=== PATIENT | female | born 1960 ===

== ENCOUNTER 2016-11-19 08:04 | Inpatient (IN) | payer MEDICARE, OTHER ==
[2016-11-19 08:09] VITALS: BMI 27.4
--- NOTE | 2016-11-19 08:51 | ED PDOC ---
Arrival/HPI - General Chief Complaint: Allergic Reaction Time Seen by Provider: 11/19/16 08:29 Historian: Patient - Critical Care Critical Care Minutes: 30 minutes - History of Present Illness Narrative History of Present Illness (Text): 11/19/16 08:40 Pt is a 56 year old female, whose past medical history includes pulmonary hypertension, renal insufficiency, ESRD on hemodialysis, chronic anemia, peptic ulcer disease, and gastritis, who presents to the emergency room complaining of swelling to the face, difficulty breathing, body aches for 2 days. Patient confirms that she goes to dialysis three days a week but has missed her last two sessions, her last dialysis session was five days ago. Patient denies any chest pain or any complaint at this time. Pt states she does swell up if she misses her dialysis. (+) bodyaches PMD: Dr. Coffman Time/Duration: < week (2 days) Symptom Onset: Gradual Symptom Course: Worsening Activities at Onset: Rest Past Medical History - Provider Review Nursing Documentation Reviewed: Yes - Infectious Disease Hx of Infectious Diseases: None - Tetanus Immunization Tetanus Immunization: Unknown - Cardiac Hx Cardiac Disorders: (mi, cardiomyopathy,cad,dvt) Hx Angina: Yes Hx Cardiac Arrhythmia: Yes (afib) Hx Congestive Heart Failure: Yes Hx Hypertension: Yes Hx Peripheral Edema: Yes (swelling to hands) Hx Peripheral Vascular Disease: Yes (and pad) Other/Comment: r carotid endarterectomy at [facility] 2 months ago, pericardial window,numbness and pain to ble when ambulating - Pulmonary Hx Respiratory Disorders: Yes Hx Asthma: Yes Hx Chronic Obstructive Pulmonary Disease (COPD): Yes Hx Emphysema: Yes Hx Pneumonia: Yes Hx Sleep Apnea: Yes - Neurological Hx Neurological Disorder: Yes Hx Dizziness: Yes Hx Migraine: Yes - HEENT Hx HEENT Disorder: Yes (tinnitus, hearing loss right ear) - Renal Hx Dialysis: Yes Date of Last Dialysis Treatment: 11/15/16 - Endocrine/Metabolic Hx Endocrine Disorders: Yes Hx Diabetes Mellitus Type 2: Yes Hx Hypothyroidism: Yes - Hematological/Oncological Hx Blood Disorders: Yes Hx Anemia: Yes (blood transfusion) - Integumentary Hx Dermatological Disorder: No - Musculoskeletal/Rheumatological Hx Musculoskeletal Disorders: Yes Hx Falls: Yes (past) - Gastrointestinal Hx Gastrointestinal Disorders: Yes (diverticulosis, hiatal hernia) Hx Diverticulitis: Yes Hx Gastroesophageal Reflux: Yes - Genitourinary/Gynecological Hx Genitourinary Disorders: Yes - Psychiatric Hx Psychophysiologic Disorder: Yes Hx Anxiety: Yes Hx Substance Use: No - Past Surgical History Past Surgical History: Unable to Obtain - Surgical History Hx Appendectomy: Yes Hx Cardiac Catheterization: Yes (08/26/12) Hx Coronary Stent: Yes Other/Comment: r arm avfistula no in use due to clot, pt has rcw hd catheter in use for hd, tonsillectomy, rcw udall in and out, thoracenthesis x2, c section - Anesthesia Hx Anesthesia Reactions: No Hx Malignant Hyperthermia: No - Suicidal Assessment Feels Threatened In Home Enviroment: No Family/Social History - Physician Review Nursing Documentation Reviewed: Yes Family/Social History: Diabetes, Neoplasm/Cancer Smoking Status: Former Smoker Hx Alcohol Use: No Hx Substance Use: No Hx Substance Use Treatment: No Allergies/Home Meds Allergies/Adverse Reactions: Allergies ciprofloxacin Allergy (Verified 11/19/16 08:09) RASH hydralazine Allergy (Verified 11/19/16 08:09) RASH vancomycin Allergy (Verified 11/19/16 08:09) SHORTNESS OF BREATH ct dye Allergy (Uncoded 11/19/16 08:09) RASH Home Medications: Home Meds Medication Instructions Recorded Confirmed Cinacalcet [Sensipar] 30 mg PO DAILY 03/05/15 11/19/16 Dexlansoprazole [Dexilant] 60 mg PO DAILY 03/10/16 11/19/16 Sildenafil [Revatio] 20 mg PO DAILY 03/10/16 11/19/16 Metoprolol Tartrate [Lopressor] 100 mg PO BID 04/29/16 11/19/16 Sevelamer [Renagel] 1,600 mg PO QID 04/29/16 11/19/16 cloNIDine [Catapres] 0.2 mg PO TID 06/04/16 11/19/16 Cefuroxime Axetil [Ceftin] 250 mg PO BID 10/03/16 11/19/16 Review of Systems - Physician Review All systems were reviewed & negative as marked: Yes - Review of Systems Constitutional: Other (generalized pain throughout body; swollen face). absent : Fevers, Night Sweats Eyes: absent: Vision Changes ENT: absent: Hearing Changes Respiratory: SOB (difficulty breathing) Cardiovascular: absent: Chest Pain Gastrointestinal: absent: Abdominal Pain Genitourinary Female: absent: Urine Output Changes Musculoskeletal: absent: Back Pain Skin: absent: Pruritis Neurological: absent: Dizziness Endocrine: absent: Polyuria Hemo/Lymphatic: absent: Easy Bleeding Psychiatric: absent: Depression Physical Exam Vital Signs Reviewed: Yes Vital Signs Temp Pulse Resp BP Pulse Ox 11/19/16 15:10 108 H 15 184/92 H 96 11/19/16 09:45 160/80 H 11/19/16 09:25 230/120 H 11/19/16 08:15 97.5 F L 113 H 24 284/142 H 97 Temperature: Hypothermic Blood Pressure: Hypertensive Pulse: Tachycardic Appearance: Positive for: Other (NAD; swollen face) Mental Status: Positive for: Alert and Oriented X 3 Finger Stick Blood Glucose: 136 - Systems Exam Head: Present: Swelling (Facial Edema) Pupils: Present: PERRL Extroacular Muscles: Present: EOMI Conjunctiva: Present: Normal Ears: Present: Normal Mouth: Present: Moist Mucous Membranes Pharnyx: Present: Normal Nose (External): Present: Atraumatic Neck: Present: Normal Range of Motion Respiratory/Chest: Present: Decreased Breath Sounds (at the bases bilaterally ) Cardiovascular: Present: Regular Rate and Rhythm, Normal S1, S2. No: Murmurs Abdomen: Present: Normal Bowel Sounds. No: Tenderness, Distention, Peritoneal Signs Back: Present: Normal Inspection Upper Extremity: Present: Normal Inspection. No: Cyanosis, Edema Lower Extremity: Present: Edema (Pitting edema in LE) Neurological: Present: Speech Normal, Motor Func Grossly Intact, Normal Sensory Function, Other (Non-Focal) Skin: Present: Warm, Dry, Normal Color. No: Rashes Psychiatric: Present: Alert, Oriented x 3, Normal Insight, Normal Concentration Medical Decision Making ED Course and Treatment: 11/19/16 08:40 Impression: ESRD with no dialysis for almost 1 week--with resultant edema Differential Diagnosis included but are not limited to: CHF/body edema ( including face) secondary to missed dialysis Plan: -- EKG -- Chest X-ray -- Urinalysis -- Labs -- Reassess and disposition Prior Visits: Notes and results from previous visits were reviewed. Patient last seen in the ED on 11/15/16 for body aches. Patient was discharged home. Progress Notes: 11/19/16 08:[address] Hutchins, who is aware and said to send patient Dialysis. 11/19/16 09:[address] Coffman, who advises she will evaluate pt while pt is in dialysis 11/19/16 14:08 Chest X-ray: Creator : Akhil Lennon MD FINDINGS: LUNGS:No active pulmonary disease. PLEURA:No significant pleural effusion identified, no pneumothorax apparent. CARDIOVASCULAR:Mild cardiomegaly. Mild vascular congestion unchanged OSSEOUS STRUCTURES:No significant abnormalities. VISUALIZED UPPER ABDOMEN:Normal. OTHER FINDINGS:Right-sided dialysis catheter IMPRESSION: Mild vascular congestion unchanged - Lab Interpretations Lab Results: 11/19/16 08:50 11/19/16 08:50 Lab Results 11/19/16 08:50: WBC 11.0 D, RBC 3.70, Hgb 10.9 L, Hct 34.6 L, MCV 93.5, MCH 29.5, MCHC 31.5, RDW 16.6 H, Plt Count 238, MPV 10.3, Gran % 88.2 H, Lymph % ( Auto) 7.0 L, Coles % (Auto) 4.4, Eos % (Auto) 0.2 L, Baso % (Auto) 0.2, Gran # 9.67 H, Lymph # 0.8 L, Coles # 0.5, Eos # 0.0, Baso # 0.02, PT 11.4, INR 1.06, APTT 24.5, Sodium 140, Potassium 6.5 H* D, Chloride 103, Carbon Dioxide 18 L, Anion Gap 26 H, BUN 159 H*, Creatinine 10.9 H*, Est GFR ( Amer) 4, Est GFR (Non-Af Amer) 4, Random Glucose 120 H, Calcium 10.1, Magnesium 2.6 H, Total Bilirubin 0.8, AST 51 H, ALT 63 H, Alkaline Phosphatase 178 H, Lactate Dehydrogenase 884 H, Total Creatine Kinase 613 H, CK-MB (CK-2) 11.0 H, CK-MB (CK -2) % 1.8 L, Troponin I 0.14 H* D, NT-Pro-B Natriuret Pep 260901 H, Total Protein 7.6, Albumin 4.7, Globulin 2.9, Albumin/Globulin Ratio 1.6 I have reviewed the lab results: Yes - RAD Interpretation Radiology Orders: 11/19/16 08:32 CHEST PORTABLE [RAD] Stat - Medication Orders Current Medication Orders: Albuterol/Ipratropium (Duoneb 3 Mg/0.5 Mg (3 Ml) Ud) 3 ml IH [id number] [facility] Last Admin: 11/20/16 14:07 Dose: 3 ML Alprazolam (Xanax) 0.25 mg PO BID [facility] PRN Reason: Protocol Stop: 11/26/16 18:01 Last Admin: 11/20/16 09:33 Dose: Not Given Non-Admin Reason: Patient in Dialysis Amlodipine Besylate (Norvasc) 10 mg PO DAILY [facility] Last Admin: 11/20/16 09:33 Dose: Not Given Non-Admin Reason: Patient in Dialysis Cinacalcet (Sensipar) 30 mg PO DAILY [facility] Last Admin: 11/20/16 10:48 Dose: Not Given Non-Admin Reason: Patient in Dialysis Clonidine HCl (Catapres) 0.2 mg PO TID [facility] Last Admin: 11/20/16 14:11 Dose: 0.2 MG MAR Pulse and Blood Pressure Document 11/20/16 14:11 [facility] (Rec: 11/20/16 14:14 [facility] [id number]) Pulse Pulse Rate (60-90) 72 Blood Pressure Blood Pressure (100/60-150/90) 163/69 Clopidogrel Bisulfate (Plavix) 75 mg PO DAILY [facility] Last Admin: 11/20/16 09:33 Dose: Not Given Non-Admin Reason: Patient in Dialysis Famotidine (Pepcid) 10 mg PO BID PRN PRN Reason: Pain, Mild (1-3) Last Admin: 11/19/16 21:50 Dose: 10 MG Levothyroxine Sodium (Synthroid) 75 mcg PO DAILY [facility] Last Admin: 11/20/16 09:33 Dose: Not Given Non-Admin Reason: Patient in Dialysis Metoprolol Tartrate (Lopressor) 100 mg PO BRKDIN [facility] Last Admin: 11/20/16 08:10 Dose: 100 MG MAR Pulse and Blood Pressure Document 11/20/16 08:10 [facility] (Rec: 11/20/16 08:12 [facility] [id number]) Pulse Pulse Rate (60-90) 94 Blood Pressure Blood Pressure (100/60-150/90) 199/86 Oxycodone/Acetaminophen (Percocet 5/325 Mg Tab) 1 tab PO Q4H PRN PRN Reason: Pain, moderate (4-7) Stop: 11/23/16 12:42 Pantoprazole Sodium (Protonix Inj) 40 mg IVP DAILY [facility] Last Admin: 11/20/16 09:33 Dose: Not Given Non-Admin Reason: Patient in Dialysis Sevelamer HCl (Renagel) 1,600 mg PO QID [facility] Last Admin: 11/20/16 16:40 Dose: Not Given Non-Admin Reason: Patient Asleep Sildenafil Citrate (Revatio) 20 mg PO DAILY [facility] Last Admin: 11/20/16 09:33 Dose: Not Given Non-Admin Reason: Patient in Dialysis Discontinued Medications Albuterol Sulfate (Albuterol 0.083% Inhal Michelle (2.5 Mg/3 Ml) Ud) 2.5 mg IH STAT STA Stop: 11/19/16 10:28 Last Admin: 11/19/16 10:49 Dose: 2.5 MG Alprazolam (Xanax) 0.25 mg PO STAT STA PRN Reason: Protocol Stop: 11/20/16 04:19 Last Admin: 11/20/16 04:34 Dose: 0.25 MG Behavioural Document 11/20/16 04:34 [facility] (Rec: 11/20/16 04:34 [facility] [id number]) Maintenance Maintenance Dose No Nonmedicinal Nonmedicinal Interventions Redirect Therapeutic Communication Behavior Behavior for Medication: Anxiety Insomnia Amlodipine Besylate (Norvasc) 10 mg PO STAT STA Stop: 11/19/16 09:13 Last Admin: 11/19/16 09:25 Dose: 10 MG MAR Pulse and Blood Pressure Document 11/19/16 09:25 [facility] (Rec: 11/19/16 09:28 JOFiona [id number]) Blood Pressure Blood Pressure (100/60-150/90) 230/120 Home Med (*Refrigerator Open) Confirm Administered Dose 1 unit XX .STK-MED ONE Stop: 11/20/16 06:03 Home Med (*Refrigerator Open) Confirm Administered Dose 1 unit XX .STK-MED ONE Stop: 11/20/16 06:28 Influenza Virus Vaccine (Fluvirin) 45 mcg IM .ONCE ONE Stop: 11/19/16 17:09 Nitroglycerin (Nitro-Bid 2% Oint) 1 ea TOP STAT STA Stop: 11/19/16 09:13 Last Admin: 11/19/16 09:28 Dose: 1 EA Pneumococcal Polyvalent Vaccine (Pneumovax 23 Vaccine) 0.5 ml IM .ONCE ONE Stop: 11/19/16 17:09 Sevelamer HCl (Renagel) 8,001,600 mg PO QID ZANA - Scribe Statement The provider has reviewed the documentation as recorded by the Aaronibthais Boone Provider Scribe Attestation: All medical record entries made by the Scribe were at my direction and personally dictated by me. I have reviewed the chart and agree that the record accurately reflects my personal performance of the history, physical exam, medical decision making, and the department course for this patient. I have also personally directed, reviewed, and agree with the discharge instructions and disposition. Disposition/Present on Arrival - Present on Arrival Any Indicators Present on Arrival: No History of DVT/PE: No History of Uncontrolled Diabetes: No Urinary Catheter: No History of Decub. Ulcer: No History Surgical Site Infection Following: None - Disposition Have Diagnosis and Disposition been Completed?: Yes Diagnosis: CHF (congestive heart failure), ESRD (end stage renal disease), Edema of face Disposition: HOSPITALIZED Disposition Time: 08:55 Patient Plan: Admission Patient Problems: Current Active Problems Problem Status Diagnosed Hypertensive left ventricular hypertrophy Active AV shunt thrombosis Acute Abdominal pain Acute CHF (congestive heart failure) Acute Chest pain Acute Chronic renal impairment Acute Dyspnea or other respiratory complaints Acute ESRD (end stage renal disease) Acute Headache Acute Leukocytosis Acute Pneumonia Acute Pulmonary edema Acute Tobacco user Acute Uncontrolled hypertension Acute Vomiting Acute Condition: SERIOUS
[2016-11-19 08:57] LABS: ADD MANUAL DIFF? NO
[2016-11-19 09:00] LABS: BASO # 0.02 K/mm3 (0.0-2.0); BASO % 0.2 % (0.0-3.0); EOS % 0.2 % (1.5-5.0); GRAN # 9.67 (1.4-6.5); GRAN % 88.2 % (50.0-68.0); HEMATOCRIT 34.6 % (36.0-48.0); LYMPH # 0.8 (1.2-3.4); MEAN CELL VOLUME 93.5 fL (80.0-105.0); MEAN CORPUSCULAR HEMOGLOBIN 29.5 pg (25.0-35.0); MEAN CORPUSCULAR HGB CONC 31.5 g/dl (31.0-37.0); MEAN PLATELET VOLUME 10.3 fl (7.0-11.0); MONO # 0.5 (0.1-0.6); MONO % 4.4 % (1.0-6.0); PLATELET COUNT 238 10^3/uL (120.0-450.0); RED CELL DISTRIBUTION WIDTH 16.6 % (11.5-14.5)
[2016-11-19 09:11] LABS: ALB/GLOB RATIO 1.6 (1.1-1.8); BILIRUBIN,TOTAL 0.8 mg/dL (0.2-1.3); CALCIUM 10.1 mg/dL (8.4-10.5); INR 1.06 (0.93-1.08); MAGNESIUM 2.6 mg/dL (1.7-2.2); PARTIAL THROMBOPLASTIN TIME 24.5 Seconds (23.7-30.8); TOTAL PROTEIN 7.6 g/dL (5.8-8.3)
[2016-11-19] MEDS ORDERED: Nitroglycerin 2% Ointment Foilpak UD TOP STA (09:12)
[2016-11-19 09:42] LABS: TROPONIN I 0.14 ng/mL
[2016-11-19 09:43] LABS: POTASSIUM 6.5 mmol/L (3.6-5.0)
--- NOTE | 2016-11-19 09:49 | RAD ---
HISTORY: SOB COMPARISON: 11/11/2016 FINDINGS: LUNGS: No active pulmonary disease. PLEURA: No significant pleural effusion identified, no pneumothorax apparent. CARDIOVASCULAR: Mild cardiomegaly. Mild vascular congestion unchanged OSSEOUS STRUCTURES: No significant abnormalities. VISUALIZED UPPER ABDOMEN: Normal. OTHER FINDINGS: Right-sided dialysis catheter IMPRESSION: Mild vascular congestion unchanged
[2016-11-19] MEDS ORDERED: Albuterol 0.083% Inhal Sol (2.5 mg/3 mL) UD IH STA (10:27)
--- NOTE | 2016-11-19 12:17 | CON ---
DATE: 11/19/2016 REASON FOR CONSULTATION: Hyperkalemia, uremia. HISTORY OF PRESENTING ILLNESS: A 56-year-old lady brought to the Emergency Room by ambulance because of shortness of breath, swelling of the face, difficulty breathing. The patient did not come for he r dialysis treatments on Thursday and Thursday. The patient is very noncompliant. She often misses h er treatments. This is very irresponsive on the part of the patient. Almost an abuse of the system. She was found to have a potassium of 6.5 and a BUN of 159 in the Emergency Room. Her creatinine is 10.9. She is also found to be acidotic with a CO2 of 18 and an anion gap of 19. She is complaining of shortness of breath. She denies any chest tightness. She is complaining of puffiness of her fac e. PAST MEDICAL AND SURGICAL HISTORY: Severe hypertension, ESRD, COPD, sleep apnea, pulmonary hypertens ion, multiple access failures, multiple vein occlusions, SVC syndrome. FAMILY HISTORY: Noncontributory. SOCIAL HISTORY: Ex-smoker, no alcohol use, no IV drug abuse. ALLERGIES: LIST REVIEWED: MEDICATIONS AT HOME: Catapres 0.2 t.i.d., Revatio, Renvela, Lopressor 100 b.i.d., Synthroid 75, Pepc id 10, Henrry 60, Plavix 75, Sensipar 30, amlodipine 10, Xanax. REVIEW OF SYSTEMS: All systems are reviewed, pertinent positives as mentioned in the history of pres enting illness, rest unremarkable. PHYSICAL EXAMINATION: GENERAL: Middle-aged lady lying in bed in moderate distress. HEENT: She has severe swelling of her face, periorbital edema. VITAL SIGNS: Blood pressure 160/80, earlier it was 230/120, heart rate 113, respiratory rate 24, tem perature 97.5. NECK: Supple, no JVD. LUNGS: Bilateral rhonchi, bilateral basal rales. CARDIAC: S1, S2, regular rate and rhythm, no murmur, no rub. ABDOMEN: Obese, distended, soft, nontender, bowel sounds present. EXTREMITIES: 1+ pitting edema of the lower extremities. INTAKE AND OUTPUT: Not charted. LABORATORY DATA: WBC 11, hemoglobin 10.9, hematocrit 34.6, platelets 238. Sodium 140, potassium 6.5 , chloride 103, CO2 18, BUN 159, creatinine 10.9, glucose 120, calcium 10.0, magnesium 2.6, AST 51, A LT 63. LDH 884. Troponin 0.14. BNP 210,000. Chest x-ray: Mild vascular congestion. ASSESSMENT: 1. Severe hyperkalemia. 2. Uremia. 3. Volume overload. 4. Noncompliance with treatments. 5. Missed dialysis on Thursday and Thursday. 6. Anemia of chronic disease. PLAN: 1. Urgent dialysis, will be dialyzed for 3-1/2 hours, will try to ultrafiltrate about 3.5 to 4 kg. She will be dialyzed with a potassium 1 bath. 2. Strongly recommended patient and family for noncompliance. Thank you for the courtesy of this consultation. Tamanna Smith MD cc: [phone] TT: 11/19/2016 12:17:09 Confirmation # [id number] Dictation # [id number] tn
--- NOTE | 2016-11-19 16:49 | CARD ---
APPROVED REPORT EKG Measurement Heart [id number] <Conclusion> Sinus tachycardia PRWP Possible Left atrial enlargement Left ventricular hypertrophy with repolarization abnormality STTW changes c/w ischemia and/or strain pattern
[2016-11-19] MEDS ORDERED: Influenza Vaccine 45 MCG/0.5 ml IM ONE (17:08)
[2016-11-19] MEDS ORDERED: Pneumococcal 23-Valent Vaccine IM ONE (17:08)
[2016-11-19] MEDS: Levothyroxine 75 MCG TAB PO SCH (17:51)
[2016-11-19] MEDS: Sildenafil 20 MG TAB PO SCH (17:52)
[2016-11-19] MEDS ORDERED: Non Formulary Medication (Metoprolol Tartrate [Lopressor] 100 MG) PO SCH (18:00)
[2016-11-19] MEDS: Albuterol-Ipratrop 3 mg / 0.5 (3 ml) UD IH SCH (20:05)
[2016-11-20] MEDS: Albuterol-Ipratrop 3 mg / 0.5 (3 ml) UD IH SCH ×4 (02:20→19:22)
[2016-11-20 08:10] LABS: ALB/GLOB RATIO 1.7 (1.1-1.8); BILIRUBIN,TOTAL 0.6 mg/dL (0.2-1.3); CALCIUM 9.2 mg/dL (8.4-10.5); POTASSIUM 4.9 mmol/L (3.6-5.0); TOTAL PROTEIN 6.3 g/dL (5.8-8.3)
--- NOTE | 2016-11-20 08:14 | HP ---
The patient is a 56-year-old, known to me from multiple previous admissions. The patient missed 2 di alyses; last on . She did not come Thursday or Thursday. I spoke to patient's son who was by the bedside. Ambulance did come and knock her door to take her to dialysis but she refused to go. When I inquired the patient, she stated, "I just got lazy; did not want to get out in snow." However , she came in because of chest discomfort, feeling bloated, facial swelling, shortness of breath. De nies any fever or chills. No cough or congestion. I saw the patient in dialysis, and she gained 9 pounds since last dialysis, and that will be removed on today's dialysis. Does complain of chest pressure. PAST MEDICAL HISTORY: Significant for: 1. End-stage renal disease, on hemodialysis. 2. Status post right carotid angioplasty. 3. Right renal artery stenosis. 4. Hypertension. 5. Peptic ulcer disease. 6. COPD. 7. Pulmonary hypertension. 8. Active smoker up until 6 months ago. ALLERGIES: SHE IS ALLERGIC TO CIPRO, HYDRALAZINE, VANCOMYCIN, AND IV CONTRAST DYES. MEDICATIONS AT HOME: She is on Norvasc 10 mg daily, metoprolol 100 mg daily. She takes Xanax 0.25 b .i.d. She takes Sensipar at bedtime. She is on Plavix 75 daily. She is on famotidine 20 mg twice a day, Synthroid 75 mcg daily. She is on Revatio 20 mg daily. She is on clonidine 0.2 three times a day. SOCIAL HISTORY: She is single, lives with her son. Was active smoker and smoked almost a pack a day for 25-30 years. REVIEW OF SYSTEMS: Significant for bloating, shortness of breath, chest pressure, and facial swellin g, and swelling around the eyelids. On examination she is seen in dialysis unit. She has a swollen face, slit-like eyes. She has a few soft crackles at bases. HEAD AND NECK EXAMINATION: She had nonicteric sclerae, pink conjunctivae with facial and neck swelli ng. ABDOMEN: Soft, nontender, no rebound, no guarding. NEUROLOGICALLY: The patient is awake and alert, and able to communicate. LABORATORY EXAMINATION: WBC 11, hemoglobin 10.9, hematocrit 34.6, platelet of 238. PT 11.4, INR 1.0 6. Chemistry: Sodium 140, potassium 6.5, chloride 103, CO2 is 18, BUN 159, creatinine 10.9. Blood sugar 120. Her LDH is 884, alk phos is 178, troponin is 0.14. CPK is , CPK is , MB is 1.8 , troponin 0.14. Her BNP is 210,000. Her x-ray shows vascular congestion. ASSESSMENT: 1. Fluid overload because of noncompliance of dialysis. She missed her 2 dialyses. 2. Uncontrolled hypertension. 3. End-stage renal disease, on hemodialysis. 4. Chronic anemia. 5. Peptic ulcer disease. PLAN: The patient will receive 1 dialysis. She will have at least 4-5 L of the fluid. She might ge t a few hours of dialysis tomorrow. Will start her on nebulizer treatment. Her usual medication hardeep l be ordered. Will follow up her troponin. If borderline high, probably secondary to renal insuffic iency. Will reevaluate this patient in a.m. Brittany Coffman MD cc: [phone] TT: 11/19/2016 18:08:07 jn
[2016-11-20 09:30] LABS: ADD MANUAL DIFF? NO
[2016-11-20 09:33] LABS: BASO # 0.02 K/mm3 (0.0-2.0); BASO % 0.3 % (0.0-3.0); EOS # 0.2 (0.0-0.7); EOS % 2.3 % (1.5-5.0); GRAN # 5.24 (1.4-6.5); HEMATOCRIT 31.2 % (36.0-48.0); LYMPH # 0.9 (1.2-3.4); LYMPH % 12.8 % (22.0-35.0); MEAN CELL VOLUME 92.9 fL (80.0-105.0); MEAN CORPUSCULAR HEMOGLOBIN 29.5 pg (25.0-35.0); MEAN CORPUSCULAR HGB CONC 31.7 g/dl (31.0-37.0); MEAN PLATELET VOLUME 10.8 fl (7.0-11.0); MONO # 0.4 (0.1-0.6); MONO % 5.6 % (1.0-6.0); PLATELET COUNT 207 10^3/uL (120.0-450.0); RED CELL DISTRIBUTION WIDTH 16.4 % (11.5-14.5); WHITE BLOOD COUNT 6.6 10^3/ul (4.5-11.0)
[2016-11-20] MEDS: Sildenafil 20 MG TAB PO SCH (09:33)
[2016-11-20] MEDS: Levothyroxine 75 MCG TAB PO SCH (09:33)
[2016-11-20 09:38] LABS: MAGNESIUM 2.4 mg/dL (1.7-2.2); PHOSPHOROUS 8.1 mg/dL (2.5-4.5)
[2016-11-20] MEDS ORDERED: Oxycodone/Acetaminophen 5/325 mg Tab PO PRN (12:41)
--- NOTE | 2016-11-20 13:08 | PN ---
DATE: 11/20/2016 SUBJECTIVE: The patient is a 56-year-old, seen and examined. She still has facial swelling and she has right periorbital swelling in her eye. Eye opening is like a slit. She complained of generalize d weakness. No history of nausea or vomiting. PHYSICAL EXAMINATION: VITAL SIGNS: She is afebrile, pulse 83, respirations 20, blood pressure 174/81. LUNGS: Bilateral fair airflow, no rhonchi or crackle. Soft crackle at bases posteriorly. HEART: S1, S2 audible. ABDOMEN: Soft and nontender, no rebound, no guarding. NEUROLOGIC: The patient is awake and alert, communicative. LABORATORY: WBC 6.6, hemoglobin 9.9, hematocrit 31.2, platelet of 207. Chemistry: Sodium 137, pota ssium 4.9, chloride 98, CO2 26, BUN 91, creatinine 7.6, blood sugar of 91, phosphorus is 8.1, magnesi um 2.4. Troponin 0.17. ASSESSMENT AND PLAN: 1. Pulmonary edema secondary to noncompliance and missing 2 hemodialysis. 2. End-stage renal disease, on hemodialysis. 3. Positive troponin, probably secondary to end-stage renal disease. Does not have chest pain now. 4. Facial swelling. 5. Peptic ulcer disease. 6. History of chronic obstructive pulmonary disease. 7. Status post right carotid angioplasty by Dr. Reyes in [facility]. 8. Pulmonary hypertension. 9. Hypothyroidism. PLAN: The patient received second dialysis today. I will speak to Dr. Smith, if she needs further f luid to be taken out. Recommend physical therapy, out of bed to chair and will reevaluate the patien t in a.m. to make a disposition plan. Brittany Coffman MD cc: [phone] TT: 11/20/2016 13:07:33 Confirmation # [id number] Dictation # [id number] stephanie
[2016-11-21] MEDS: Albuterol-Ipratrop 3 mg / 0.5 (3 ml) UD IH SCH ×3 (01:09→13:12)
[2016-11-21 05:39] VITALS: O2SAT 99
--- NOTE | 2016-11-21 08:06 | PN ---
DATE: 11/20/2016 SUBJECTIVE: The patient is on medical floor. She is awake, she is alert. Face is very swollen. Sh e complains of some shortness of breath. Yesterday she was only dialyzed for 2 hours. She only ultr afiltrated 2 kg. The patient insisted a night off early. PHYSICAL EXAMINATION: EXAMINATION: Blood pressure 161/80, heart rate 74, respiratory rate 20, temperature 98.6. LABORATORY DATA: WBC 6.6, hemoglobin 9.9, hematocrit 31, platelets 207. Sodium 137, potassium 4.9, chloride 98, CO2 of 26, BUN 91, creatinine 7.6, glucose 91, calcium 9.2, phosphorus 8.1, magnesium 2. 4. AST 48, ALT 60, albumin 4.0. MEDICATION LIST: Reviewed. ASSESSMENT AND PLAN: 1. Severe hyperkalemia, resolved. 2. Hyperkalemia. 3. Noncompliance with dialysis treatment. 4. Hypertension. 5. Noncompliance with diet and binders. PLAN: 1. Case discussed at length with Dr. Coffman. The patient is noncompliant. She terminated treatment yesterday. She was only ultrafiltrated for 2 hours, removing 2 kg. 2. Dialysis again today. 3. Ultrafiltrate about 2.5 to 3 kg. 4. The patient is strongly advised to comply with her dialysis treatment. Tamanna Smith MD cc: [phone] TT: 11/20/2016 22:38:04 Confirmation # [id number] Dictation # [id number] stephanie
[2016-11-21] MEDS: Sildenafil 20 MG TAB PO SCH (09:51)
[2016-11-21] MEDS: Levothyroxine 75 MCG TAB PO SCH (09:54)
[2016-11-21 13:15] VITALS: BP 119/59; PULSE 81; RESP 19; TEMP 97.3
--- NOTE | 2016-11-21 13:29 | PN ---
DATE: 11/21/2016 SUBJECTIVE: The patient is seen lying in bed. She is alert. She is awake. She reports feeling muc h better. She complains of feeling weak. She is unable to walk. PHYSICAL EXAMINATION: GENERAL: Middle aged lady, lying in bed. VITAL SIGNS: Blood pressure 140/70, heart rate 86, respiratory rate 20, temperature 98.5. HEENT: Normocephalic, atraumatic. NECK: Supple, no JVD. LUNGS: Bilateral equal air entry, no rales. CARDIAC: S1, S2, regular rate and rhythm, no murmur, no rub. ABDOMEN: Obese, distended, soft, nontender, bowel sounds present. EXTREMITIES: 1+ pitting edema of the lower extremities. INTAKE AND OUTPUT: Not charted. LABORATORY DATA: WBC 6.6, hemoglobin 9.9, hematocrit 31, platelets 207. Sodium 137, potassium 4.9, chloride 98, CO2 26, BUN 91, creatinine 7.6, glucose 91, calcium 9.2, phosphorus 8.1, magnesium 2.4, AST 48, ALT 60, albumin 4.0. CURRENT MEDICATIONS: Clonidine 0.2 t.i.d., Lopressor 100 daily, amlodipine 10, Pepcid, Tylenol, Plav ix 75, Protonix, Renvela 16 q.i.d., Revatio 20 daily, cinacalcet 30, Synthroid, Xanax. ASSESSMENT: 1. Resolved hyperkalemia. 2. Resolved hypervolemia. 3. Hypertension, well controlled. 4. Anemia of chronic disease. 5. End-stage renal disease. PLAN: 1. Continue current antihypertensives. 2. The patient is counseled regarding importance of compliance with treatment. 3. Next dialysis tomorrow. 4. No objection to discharge. Tamanna Smith MD cc: [phone] TT: 11/21/2016 13:28:19 Confirmation # [id number] Dictation # [id number]
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
== END 2016-11-21 18:33 | disposition home or self-care (01) | DRG 291 ==
LOC: ED 08:04 → ERH 08:56 → 2RNO 16:27 → OBSVTOIN 11-20 16:41
PROVIDERS: ADMIT Internal Medicine; ATTEND Internal Medicine
PROC: 5A1D00Z (ICD-10-PCS; principal; 2016-11-20)
DX: I13.2 Hypertensive heart and chronic kidney disease with heart failure and with stage 5 chronic kidney disease, or end stage renal disease (principal); N18.6 End stage renal disease; E87.2 Acidosis; E11.22 Type 2 diabetes mellitus with diabetic chronic kidney disease; I27.2 Other secondary pulmonary hypertension; I87.1 Compression of vein; I50.9 Heart failure, unspecified; E87.5 Hyperkalemia; E78.5 Hyperlipidemia, unspecified; D63.8 Anemia in other chronic diseases classified elsewhere; E03.9 Hypothyroidism, unspecified; J44.9 Chronic obstructive pulmonary disease, unspecified; K27.9 Peptic ulcer, site unspecified, unspecified as acute or chronic, without hemorrhage or perforation; H91.91 Unspecified hearing loss, right ear; H93.19 Tinnitus, unspecified ear; G47.30 Sleep apnea, unspecified; Z99.2 Dependence on renal dialysis; Z91.15 Patient's noncompliance with renal dialysis; Z91.11 Patient's noncompliance with dietary regimen; Z87.891 Personal history of nicotine dependence

== ENCOUNTER 2016-12-03 08:42 | Observation (INO) | payer MEDICARE, OTHER ==
[2016-12-03 08:43] VITALS: BMI 27.4
[2016-12-03 09:53] LABS: ADD MANUAL DIFF? NO
--- NOTE | 2016-12-03 09:54 | ED PDOC ---
Arrival/HPI - General Chief Complaint: Chest Pain Time Seen by Provider: 12/03/16 08:53 Historian: Patient - History of Present Illness Narrative History of Present Illness (Text): 12/03/16 09:39 A 56 year old female, whose past medical history includes pulmonary hypertension , renal insufficiency, ESRD on hemodialysis, chronic anemia, peptic ulcer disease, and gastritis, who presents to the emergency room complaining of worsening chest pain since yesterday. Pain is localized to the central chest. Patient notes this morning while walking she began to feel dizzy and short of breath. Patient notes yesterday after dialysis she started to feel nausea and vomited. Patient says currently she still feels nauseous but denies any fever, chills or other complaints at this time. Patient states she quit smoking 5 year ago and she does not drink or use other drugs. PMD: Dr. Coffman Time/Duration: 24 hours Symptom Onset: Sudden Symptom Course: Worsening Quality: Other Activities at Onset: Light Context: Home Past Medical History - Provider Review Nursing Documentation Reviewed: Yes - Infectious Disease Hx of Infectious Diseases: None - Tetanus Immunization Tetanus Immunization: Unknown - Cardiac Hx Cardiac Disorders: Yes (mi, cardiomyopathy,cad,dvt) Hx Congestive Heart Failure: Yes Hx Hypertension: Yes - Pulmonary Hx Respiratory Disorders: Yes Hx Chronic Obstructive Pulmonary Disease (COPD): Yes - Neurological Hx Neurological Disorder: Yes Hx Dizziness: Yes Hx Migraine: Yes - HEENT Hx HEENT Disorder: Yes (tinnitus, hearing loss right ear) - Renal Hx Renal Disorder: Yes Hx Dialysis: Yes Date of Last Dialysis Treatment: 12/02/16 - Endocrine/Metabolic Hx Endocrine Disorders: Yes Hx Diabetes Mellitus Type 2: Yes Hx Hypothyroidism: Yes - Hematological/Oncological Hx Blood Disorders: Yes Hx Anemia: Yes (blood transfusion) - Integumentary Hx Dermatological Disorder: No - Musculoskeletal/Rheumatological Hx Musculoskeletal Disorders: Yes Hx Falls: Yes (past) - Gastrointestinal Hx Gastrointestinal Disorders: Yes (diverticulosis, hiatal hernia) Hx Diverticulitis: Yes Hx Gastroesophageal Reflux: Yes - Genitourinary/Gynecological Hx Genitourinary Disorders: Yes - Psychiatric Hx Psychophysiologic Disorder: Yes Hx Anxiety: Yes Hx Substance Use: No - Past Surgical History Past Surgical History: Unable to Obtain - Surgical History Hx Appendectomy: Yes Hx Cardiac Catheterization: Yes (08/26/12) Hx Coronary Stent: Yes Other/Comment: r arm avfistula no in use due to clot, pt has rcw hd catheter in use for hd, tonsillectomy, rcw udall in and out, thoracenthesis x2, c section - Anesthesia Hx Anesthesia Reactions: No Hx Malignant Hyperthermia: No - Suicidal Assessment Feels Threatened In Home Enviroment: No Family/Social History - Physician Review Nursing Documentation Reviewed: Yes Family/Social History: No Known Family HX Smoking Status: Former Smoker Hx Alcohol Use: No Hx Substance Use: No Hx Substance Use Treatment: No Allergies/Home Meds Allergies/Adverse Reactions: Allergies ciprofloxacin Allergy (Verified 12/03/16 09:00) RASH hydralazine Allergy (Verified 12/03/16 09:00) RASH vancomycin Allergy (Verified 12/03/16 09:00) SHORTNESS OF BREATH ct dye Allergy (Uncoded 12/03/16 09:00) RASH Home Medications: Home Meds Medication Instructions Recorded Confirmed Cinacalcet [Sensipar] 30 mg PO DAILY 03/05/15 12/03/16 Dexlansoprazole [Dexilant] 60 mg PO DAILY 03/10/16 12/03/16 Sildenafil [Revatio] 20 mg PO DAILY 03/10/16 12/03/16 Metoprolol Tartrate [Lopressor] 100 mg PO BID 04/29/16 12/03/16 Sevelamer [Renagel] 1,600 mg PO QID 04/29/16 12/03/16 cloNIDine [Catapres] 0.2 mg PO TID 06/04/16 12/03/16 Review of Systems - Physician Review All systems were reviewed & negative as marked: Yes - Review of Systems Constitutional: absent: Fevers Respiratory: SOB Cardiovascular: Chest Pain Gastrointestinal: Nausea, Vomiting Neurological: Dizziness Physical Exam Vital Signs Reviewed: Yes Vital Signs Temp Pulse Pulse Resp BP BP Pulse Ox 12/03/16 13:16 87 240/109 H 12/03/16 13:14 87 240/109 H 12/03/16 12:40 79 18 220/89 H 96 12/03/16 11:15 87 18 226/94 H 95 12/03/16 09:15 85 241/114 H 12/03/16 09:04 99 F 78 17 236/96 H 100 Temperature: Afebrile Blood Pressure: Hypertensive Pulse: Regular Respiratory Rate: Normal Appearance: Positive for: Well-Appearing, Non-Toxic, Comfortable Pain Distress: None Mental Status: Positive for: Alert and Oriented X 3 - Systems Exam Head: Present: Atraumatic, Normocephalic Pupils: Present: PERRL Extroacular Muscles: Present: EOMI Conjunctiva: Present: Normal Mouth: Present: Moist Mucous Membranes Neck: Present: Normal Range of Motion Respiratory/Chest: Present: Decreased Breath Sounds (decrease breath sound on the right). No: Respiratory Distress, Accessory Muscle Use Cardiovascular: Present: Regular Rate and Rhythm, Normal S1, S2. No: Murmurs Abdomen: Present: Normal Bowel Sounds. No: Tenderness, Distention, Peritoneal Signs Back: Present: Normal Inspection Upper Extremity: Present: Normal Inspection. No: Cyanosis, Edema Lower Extremity: Present: Normal Inspection. No: Edema Neurological: Present: GCS=15, CN II-XII Intact, Speech Normal Skin: Present: Warm, Dry, Normal Color. No: Rashes Psychiatric: Present: Alert, Oriented x 3, Normal Insight, Normal Concentration Medical Decision Making ED Course and Treatment: 12/03/16 09:39 Impression: A 56 year old female with chest pain. Differential Diagnosis include but are not limited to: ACS Plan: -- EKG -- Chest X-ray -- Labs -- Urinalysis -- Asprin -- Reassess and disposition Prior Visits: Notes and results from previous visits were reviewed. The patient last presented to the emergency department on 11/19/16 for evalaution of swelling to the face, shortness of breath and body aches. Progress Notes: EKG: Ordered, reviewed, and independently interpreted the EKG. Rate : 81 BPM Rhythm : NSR Interpretation : Bilateral atrial enlargement Comparison : No change from previous EKG for comparison. 12/03/16 10:10 Chest X-ray: Creator : Keyla Strong V. COMPARISON: 11/19/2016 FINDINGS: LUNGS: No active pulmonary disease. Currently no suspect pulmonary venous congestion present PLEURA: No significant pleural effusion identified, no pneumothorax apparent. CARDIOVASCULAR: Cardiomegaly as before OSSEOUS STRUCTURES: No significant abnormalities. VISUALIZED UPPER ABDOMEN: Normal. OTHER FINDINGS: Right-sided dialysis catheter tip in right atrium -unchanged right upper lung zone/right axillary vascular stent unchanged IMPRESSION: No active disease. Other findings as above 12/03/16 12:[address] Coffman, who is aware and agrees with the plan to place the patient in Telemetry for observation for chest pain. I have discussed the results and plan with the patient, who expresses understanding. Patient given the opportunity to ask question, all questions were answered and there is agreement with the plan to be admitted to the hospital. - Lab Interpretations Lab Results: 12/03/16 09:30 12/03/16 09:30 Lab Results 12/03/16 09:30: WBC 8.1 D, RBC 3.78, Hgb 11.4 L, Hct 36.7, MCV 97.1, MCH 30.2, MCHC 31.1, RDW 15.9 H, Plt Count 222, MPV 11.5 H, Gran % 81.4 H, Lymph % (Auto) 12.3 L, [place] % (Auto) 4.9, Eos % (Auto) 0.9 L, Baso % (Auto) 0.5, Gran # 6.59 H , Lymph # 1.0 L, [place] # 0.4, Eos # 0.1, Baso # 0.04, Sodium 137, Potassium 5.0, Chloride 99, Carbon Dioxide 25, Anion Gap 18, BUN 43 H, Creatinine 5.4 H, Est GFR ( Amer) 10, Est GFR (Non-Af Amer) 8, Random Glucose 129 H, Calcium 9.5, Magnesium 2.1, Total Bilirubin 0.6, AST 25, ALT 29, Alkaline Phosphatase 170 H, Lactate Dehydrogenase 558, Total Creatine Kinase 47, Troponin I 0.11 D, NT-Pro-B Natriuret Pep 58619 H, Total Protein 6.7, Albumin 4.1, Globulin 2.7, Albumin/Globulin Ratio 1.5 I have reviewed the lab results: Yes - RAD Interpretation Radiology Orders: 12/03/16 09:37 CHEST PORTABLE [RAD] Stat - Medication Orders Current Medication Orders: Albuterol/Ipratropium (Duoneb 3 Mg/0.5 Mg (3 Ml) Ud) 3 ml IH [id number] [facility] Alprazolam (Xanax) 0.25 mg PO BID [facility] Stop: 12/10/16 18:01 Amlodipine Besylate (Norvasc) 10 mg PO DAILY [facility] Last Admin: 12/03/16 13:16 Dose: 10 MG MAR Pulse and Blood Pressure Document 12/03/16 13:16 MMA (Rec: 12/03/16 13:16 [email or web address]) Pulse Pulse Rate (60-90) 87 Blood Pressure Blood Pressure (100/60-150/90) 240/109 Cinacalcet (Sensipar) 30 mg PO DAILY [facility] Clonidine HCl (Catapres) 0.2 mg PO TID [facility] Last Admin: 12/03/16 13:14 Dose: 0.2 MG MAR Pulse and Blood Pressure Document 12/03/16 13:14 [facility] (Rec: 12/03/16 13:16 [email or web address]) Pulse Pulse Rate (60-90) 87 Blood Pressure Blood Pressure (100/60-150/90) 240/109 Clopidogrel Bisulfate (Plavix) 75 mg PO DAILY [facility] Last Admin: 12/03/16 13:16 Dose: 75 MG Metoprolol Tartrate (Lopressor) 100 mg PO BID [facility] Ondansetron HCl (Zofran Inj) 4 mg IVP Q6H PRN PRN Reason: Nausea/Vomiting Pantoprazole Sodium (Protonix Inj) 40 mg IVP DAILY [facility] Last Admin: 12/03/16 13:16 Dose: 40 MG IVP Administration Document 12/03/16 13:16 [facility] (Rec: 12/03/16 13:17 [email or web address]) Charges for Administration # of IVP Administrations 1 Sevelamer HCl (Renagel) 1,600 mg PO QID [facility] Sildenafil Citrate (Revatio) 20 mg PO DAILY [facility] Discontinued Medications Alprazolam (Xanax) 0.25 mg PO BID [facility] PRN Reason: Protocol Aspirin (Aspirin) 325 mg PO STAT STA Stop: 12/03/16 09:38 Last Admin: 12/03/16 09:49 Dose: 325 MG Influenza Virus Vaccine (Fluvirin) 45 mcg IM .ONCE ONE Stop: 12/03/16 16:31 Non-Formulary Medication (Metoprolol Tartrate [Lopressor]) 100 mg PO BID [facility] Ondansetron HCl (Zofran Inj) 4 mg IV ONCE ONE Stop: 12/03/16 10:13 Last Admin: 12/03/16 10:43 Dose: 4 MG eMAR Start Stop Document 12/03/16 10:43 [facility] (Rec: 12/03/16 10:45 TITUS [id number]) Intravenous Solution Start Date 12/03/16 Start Time 10:43 End Date 12/03/16 End time 10:44 Total Infusion Time 1 Pneumococcal Polyvalent Vaccine (Pneumovax 23 Vaccine) 0.5 ml IM .ONCE ONE Stop: 12/03/16 16:31 - Scribe Statement The provider has reviewed the documentation as recorded by the Scribe Clary Fung Provider Scribe Attestation: All medical record entries made by the Scribe were at my direction and personally dictated by me. I have reviewed the chart and agree that the record accurately reflects my personal performance of the history, physical exam, medical decision making, and the department course for this patient. I have also personally directed, reviewed, and agree with the discharge instructions and disposition. Disposition/Present on Arrival - Present on Arrival Any Indicators Present on Arrival: No History of DVT/PE: No History of Uncontrolled Diabetes: No Urinary Catheter: No History of Decub. Ulcer: No History Surgical Site Infection Following: None - Disposition Have Diagnosis and Disposition been Completed?: Yes Diagnosis: Chest pain Disposition: HOSPITALIZED Disposition Time: 12:42 Patient Plan: Admission Patient Problems: Current Active Problems Problem Status Diagnosed Hypertensive left ventricular hypertrophy Active AV shunt thrombosis Acute Abdominal pain Acute CHF (congestive heart failure) Acute Chest pain Acute Chronic renal impairment Acute Dyspnea or other respiratory complaints Acute ESRD (end stage renal disease) Acute Edema of face Acute Headache Acute Leukocytosis Acute Pneumonia Acute Pulmonary edema Acute Tobacco user Acute Uncontrolled hypertension Acute Vomiting Acute Condition: FAIR
[2016-12-03 09:57] LABS: BASO # 0.04 K/mm3 (0.0-2.0); BASO % 0.5 % (0.0-3.0); EOS # 0.1 (0.0-0.7); EOS % 0.9 % (1.5-5.0); GRAN # 6.59 (1.4-6.5); GRAN % 81.4 % (50.0-68.0); HEMATOCRIT 36.7 % (36.0-48.0); LYMPH % 12.3 % (22.0-35.0); MEAN CELL VOLUME 97.1 fL (80.0-105.0); MEAN CORPUSCULAR HEMOGLOBIN 30.2 pg (25.0-35.0); MEAN CORPUSCULAR HGB CONC 31.1 g/dl (31.0-37.0); MEAN PLATELET VOLUME 11.5 fl (7.0-11.0); MONO # 0.4 (0.1-0.6); MONO % 4.9 % (1.0-6.0); PLATELET COUNT 222 10^3/uL (120.0-450.0); RED CELL DISTRIBUTION WIDTH 15.9 % (11.5-14.5); WHITE BLOOD COUNT 8.1 10^3/ul (4.5-11.0)
[2016-12-03 10:08] LABS: ALB/GLOB RATIO 1.5 (1.1-1.8); BILIRUBIN,TOTAL 0.6 mg/dL (0.2-1.3); CALCIUM 9.5 mg/dL (8.4-10.5); MAGNESIUM 2.1 mg/dL (1.7-2.2); TOTAL PROTEIN 6.7 g/dL (5.8-8.3)
--- NOTE | 2016-12-03 10:09 | RAD ---
HISTORY: chest pain COMPARISON: 11/19/2016 FINDINGS: LUNGS: No active pulmonary disease. Currently no suspect pulmonary venous congestion present PLEURA: No significant pleural effusion identified, no pneumothorax apparent. CARDIOVASCULAR: Cardiomegaly as before OSSEOUS STRUCTURES: No significant abnormalities. VISUALIZED UPPER ABDOMEN: Normal. OTHER FINDINGS: Right-sided dialysis catheter tip in right atrium -unchanged right upper lung zone/right axillary vascular stent unchanged IMPRESSION: No active disease. Other findings as above
--- NOTE | 2016-12-03 13:27 | HP ---
HISTORY OF PRESENT ILLNESS: The patient is a 56-year-old who started to feel she was having some dari st discomfort and headache last night and this morning she woke up. She was nauseous, she vomited an d she almost passed out on the stairs. Neighbor saw her lying on the stairs, she called 911 and she w as brought to Emergency Room. Still complaining of some headache. She also feels nauseous, although she is better since she was given Zofran. Denies any abdominal pain. Does complain of constipation . PAST MEDICAL HISTORY: 1. She has a very complicated past medical history, frequent admission with headache and chest disco mfort. She also has history of end-stage renal disease, on hemodialysis. She is on dialysis on , and Saturdays. Last time she was found to be swollen and retain fluid because she miss ed 2 dialysis. 2. Chronic anemia. 3. History of carotid stenosis status post carotid stent placement. 4. Hypertension. 5. Gastritis. 6. Chronic obstructive pulmonary disease. 7. History of pulmonary hypertension. ALLERGIES: SHE IS ALLERGIC TO CIPROFLOXACIN, HYDRALAZINE, AND VANCOMYCIN AND IV CONTRAST DYES. SOCIAL HISTORY: She used to be a heavy smoker but quit a year or two ago. She still smokes here ___ _ there 1 or 2 cigarettes a day when she gets a chance. She lives with her son. REVIEW OF SYSTEMS: Significant for generalized weakness, headache and chest discomfort, feels nauseo us at times. PHYSICAL EXAMINATION: GENERAL: She is awake and alert, communicative. VITAL SIGNS: She has temperature of 99, pulse 70, respirations 17, blood pressure 236/96. LUNGS: Bilateral fair airflow, no rhonchi or crackle. HEART: S1, S2 audible. No murmur. ABDOMEN: Soft, nontender, no rebound, no guarding. NEUROLOGIC: The patient is awake and alert, communicative. Moves all extremities. No focal deficit . ASSESSMENT: 1. Status post syncope. 2. Intractable nausea. 3. Uncontrolled hypertension. 4. End-stage renal disease, on hemodialysis. 5. Chronic anemia. PLAN: We will place patient in observation. Give her analgesic. We will start her on PPI and ____. We will reevaluate patient in a.m. and if she is stable by morning, we will discharge her home soon . Brittany Coffman MD cc: [phone] TT: 12/03/2016 13:27:00 sn
[2016-12-03 14:05] LABS: TROPONIN I 0.11 ng/mL
[2016-12-03] MEDS ORDERED: Influenza Vaccine 45 MCG/0.5 ml IM ONE (16:30)
[2016-12-03] MEDS ORDERED: Pneumococcal 23-Valent Vaccine IM ONE (16:30)
--- NOTE | 2016-12-03 17:28 | CARD ---
APPROVED REPORT EKG Measurement Heart [id number] MA [id number] <Conclusion> Normal sinus rhythm Biatrial enlargement Left ventricular hypertrophy with strain pattern Vs Ischemia Abnormal ECG
[2016-12-03] MEDS ORDERED: Non Formulary Medication (Metoprolol Tartrate [Lopressor] 100 MG) PO SCH (18:00)
[2016-12-03] MEDS: Albuterol-Ipratrop 3 mg / 0.5 (3 ml) UD IH SCH ×2 (20:07→21:46)
[2016-12-03] MEDS: Sildenafil 20 MG TAB PO SCH (21:45)
[2016-12-04] MEDS: Albuterol-Ipratrop 3 mg / 0.5 (3 ml) UD IH SCH ×4 (01:24→19:24)
[2016-12-04 10:25] VITALS: RESP 20
--- NOTE | 2016-12-04 12:38 | PN ---
DATE: 12/04/2016 The patient is a 56-year-old, seen in dialysis. Complained of feeling nauseous and vomiting this mor nidia and does not have appetite. No abdominal pain. PHYSICAL EXAMINATION: VITAL SIGNS: She is afebrile, pulse 82, respirations 20, blood pressure 201/82. LUNGS: Bilateral fair airflow, no rhonchi or crackle. HEART: S1, S2 audible. ABDOMEN: Soft. Epigastric discomfort, but no rebound, no guarding. NEUROLOGIC: The patient is awake and alert, communicative, has facial puffiness. LABORATORY EXAMINATION: There is no new lab available today. ASSESSMENT AND PLAN: 1. Intractable nausea, peptic ulcer disease versus gastroparesis. 2. Uncontrolled hypertension. 3. History of chronic obstructive pulmonary disease. 4. End-stage renal disease on hemodialysis. 5. Recent right carotid angioplasty. 6. Pulmonary hypertension. PLAN: Awaiting GI input. We will advance diet for the lunch; if patient tolerates and get GI evalua tion, will make discharge plan. If she continues to vomit after feeding lunch, we might have to admi t her for further workup. Brittany Coffman MD cc: [phone] TT: 12/04/2016 12:37:55 Confirmation # [id number] Dictation # [id number] an
[2016-12-04] MEDS: Sildenafil 20 MG TAB PO SCH (13:15)
--- NOTE | 2016-12-04 14:40 | CON ---
DATE: 12/04/2016 REASON FOR CONSULTATION: Severe hypertension, need for dialysis, elevated BNP. HISTORY OF PRESENTING ILLNESS: A 56-year-old lady known to me from multiple evaluations, presented t o the Emergency Room yesterday morning with complaints of some chest tightness, headaches, nausea, vo miting. She reported that she almost passed out. In the Emergency Room, she was found to have blood pressure of 236/96, heart rate 78. Blood work revealed potassium of 5.0, BNP of 70,900. Troponin o f 0.11. The patient was admitted for accelerated hypertension, chest pain. PAST MEDICAL AND SURGICAL HISTORY: Longstanding hypertension, accelerated hypertension, COPD, ESRD, anemia of chronic kidney disease, pulmonary hypertension, gastroparesis. FAMILY HISTORY: Noncontributory. SOCIAL HISTORY: Ex-smoker, no alcohol use, no IV drug abuse. ALLERGIES: List reviewed. CURRENT MEDICATIONS: Clonidine, Lopressor, amlodipine, Plavix, Protonix, Renagel, Revatio, Sensipar, Xanax, Zofran. REVIEW OF SYSTEMS: All systems reviewed. Pertinent positives as mentioned in history of presenting illness, rest unremarkable. PHYSICAL EXAMINATION: GENERAL: A middle-aged lady lying in bed. VITAL SIGNS: Blood pressure 142/71, heart rate 80, respiratory rate 18, temperature 98.7. HEENT: Normocephalic, atraumatic, positive pallor. NECK: Supple. No JVD. LUNGS: Bilateral rhonchi, bilateral equal air entry. CARDIAC: S1, S2, regular rate and rhythm, no murmur, no rub. ABDOMEN: Distended, soft, nontender, bowel sounds present. EXTREMITIES: Trace lower extremity edema. LABORATORY DATA: WBC 8, hemoglobin 11.4, hematocrit 37, platelets 222. Sodium 137, potassium 5.0, c hloride 99, CO2 25, BUN 43, creatinine 5.4, glucose 129, calcium 9.5, magnesium 2.1. AST 25, ALT 29. BNP 70,900, troponin 0.1, albumin 4.1. ASSESSMENT AND PLAN: 1. Accelerated hypertension. 2. End-stage renal disease. 3. Intractable nausea secondary to gastroparesis. 4. Chronic obstructive pulmonary disease. 5. Pulmonary hypertension. PLAN: 1. Dialysis today. 2. Agree with GI evaluation. 3. Continue PPI. 4. Continue antihypertensives. Thank you for the courtesy of this consultation. Tamanna Smith MD cc: [phone] TT: 12/04/2016 14:40:01 Confirmation # [id number] Dictation # [id number] mn
[2016-12-04] MEDS ORDERED: Alum-Mag Hydrox-Simethicone Susp (30 mL) PO ONE (16:59)
--- NOTE | 2016-12-04 19:43 | CON ---
DATE: 12/04/2016 Seen and examined at the bedside earlier today. The chart was reviewed. REQUEST FOR CONSULT: Vomiting. HISTORY OF PRESENT ILLNESS: This is a 56-year-old female with a past medical history of chronic anem ia, carotid stenosis status post carotid stent placement, pulmonary hypertension, end-stage renal dis ease on dialysis and has a history of multiple admissions, came to the Emergency Room with complaints of headache with chest discomfort. The patient states that it occurred the night before when she wo ke up in the morning. She also became very nauseous and vomited and almost passed out on her stairs. The patient was brought to the Emergency Room when 911 was called. She was seen in dialysis. The patient states that her symptoms are improved now. This does not happen to her on a frequent basis. She states that when this occurred, she had had dialysis. She does complain of heartburn. Denies a ny constipation. No reports of any melena or bright red blood. No complaints of . The patient did have endoscopy in the past as well as a colonoscopy. Her last endoscopy was 12/2014, where she was found to have gastritis and also a colonoscopy where she was found to have diverticulosis and a c olon polyp. 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 ALLERGIES: CIPROFLOXACIN, HYDRALAZINE, VANCOMYCIN AND IV CONTRAST. PAST SURGICAL HISTORY: Carotid stent placement. FAMILY HISTORY: Noncontributory at this time. SOCIAL HISTORY: Former heavy smoker. Denies ETOH or substance abuse. MEDICATIONS: Reviewed as per NOV. REVIEW OF SYSTEMS: Systems were reviewed with positive findings, see HPI. "Computer is frozen." PHYSICAL EXAMINATION: HEENT: Sclerae is anicteric. NECK: Supple. CARDIAC: S1, S2. LUNGS: With decreased breath sounds but good aeration, no rales or wheeze. ABDOMEN: With bowel sounds, soft, does not appear distended, but nontender on palpation. No rebound or guarding. EXTREMITIES: No edema noted. NEUROLOGIC: Awake, alert, and oriented. VITAL SIGNS: Temperature is 98.7, blood pressure is 142/71, pulse is 80, respirations 19. LABORATORY DATA: Labs on admission was WBC 8.1, H and H is 11.4 and 36.7, platelets is 222. Chem: Sodium 137, K is 5.0, BUN 43, creatinine is 5.4. Her mag is 2.1, total bilirubin 0.6, AST 25, ALT 2 9, alkaline phosphatase is 170. BNP is 7900. She had a chest x-ray on admission and that was negati ve for active pulmonary disease, no pleural effusion or pneumothorax. ASSESSMENT: This is a 56-year-old female with multiple medical problems, history of end-stage renal disease on dialysis, history of chronic obstructive pulmonary disease and pulmonary hypertension, who came to the hospital with complaints of nausea and vomiting. patient with intractable nausea with some slight relief now, may be secondary to gastroparesis, history of uncontrolled hypertension and dyspepsia, history of chronic obstructive pulmonary disease and right carotid angioplasty. PLAN: A detailed discussion was done with the patient. She is on a renal diet, which she tolerated. She does not having any symptoms of any nausea or wanting to vomit. She did complain of increased heartburn sometimes after eating. Discussed with her that she may benefit from eating small frequent meals, making sure to chew the food well. Currently, she is on Protonix IV daily. In lieu of her r enal functions and past medical history, we are careful in prescribing her any PPI, but she did have an endoscopy back in 2014 and found to have gastritis. The patient is on Plavix and Zofran p.r.n. Thank you for this consult and for allowing us to participate in your patient's care. Will make furt her recommendations based upon the patient's clinical course. The patient was seen and the case disc ussed with Dr. Bermudez. Britta JOINER cc: [id number] TT: 12/04/2016 19:42:29 Confirmation # [id number] Dictation # [id number] herbert
--- NOTE | 2016-12-04 23:09 | CON ---
DATE: 12/04/2016 ADDENDUM This is an addendum to the GI consultation report dictated by Britta Wheeler NP. The patient was seen and evaluated. The patient did finish at that time, lunch, and she was able to keep it down. No throwing up. The patient's previous GI workup was reviewed. On examination, abdomen was soft. There is no tenderness. The reasonable approach of this patient is to consider conservative management unless the patient rem ains more symptomatic. The patient did have multiple endoscopic evaluations done in the past. The l ast one was in 2014. The patient does have a history of end-stage renal disease, pulmonary hypertens ion, relatively higher risk. However, we will consider further evaluation, including endoscopy., dep ending upon the clinical course. I have discussed with Dr. Coffman regarding this patient again. I have discussed this patient again. Thank you very much for allowing us to participate in the care of the patient. James Bermudez MD cc: [id number] TT: 12/04/2016 23:08:55 Confirmation # [id number] Dictation # [id number]
[2016-12-05] MEDS: Albuterol-Ipratrop 3 mg / 0.5 (3 ml) UD IH SCH ×3 (01:01→13:36)
[2016-12-05 08:43] VITALS: BP 161/60; PULSE 62; TEMP 97.5; O2SAT 100
[2016-12-05] MEDS: Sildenafil 20 MG TAB PO SCH (09:39)
--- NOTE | 2016-12-05 12:18 | PN ---
DATE: 12/05/2016 Seen and examined at the bedside earlier today. She did have some episodes of dyspepsia last night a nd this morning, but not as severe, she states. No episodes of nausea, vomiting or abdominal pain. The patient states that she was seen by ENT when she was hospitalized before in [place] and she wa s told by the ENT doctor that she had a lot of inflammation in her esophagus. She was taking Pepcid b.i.d., which worked for a short period of time. VITAL SIGNS: Temperature is 97.5, blood pressure 161/60, pulse 62, respirations 20, 100 on room air. No new labs are noted for today. PHYSICAL EXAMINATION: HEENT: Sclerae are anicteric. NECK: Supple. CARDIAC: S1, S2. LUNGS: Decreased breath sounds but good aeration. No rales or wheeze. ABDOMEN: With bowel sounds, soft, nontender. ASSESSMENT: This is a 56-year-old female with a history of end-stage renal disease on dialysis, hist ory of chronic obstructive pulmonary disease and pulmonary hypertension. Her symptoms of nausea and vomiting have resolved, although she does get constant heartburn. Thought that the nausea, vomiting could be secondary to gastroparesis. She also has history of hypertension and right carotid angiopla sty. PLAN: Discussed with the patient. Possibly patient could try a Zantac 75 mg b.i.d. and again discus sed benefit of eating small frequent meals. Right now, she is on Protonix IV daily. Last endoscopy was back in 2014, found to have gastritis. Discussed with the patient regarding conservative managem ent, but if patient remains more symptomatic, may have to consider further evaluation with endoscopy. Currently, she is on a renal soft diet. The patient is on aspirin, is on Plavix as well. The curtis ent was seen and case discussed with Dr. Bermudez. Britta JOINER cc: [id number] TT: 12/05/2016 12:17:34 Confirmation # [id number] Dictation # [id number]
--- NOTE | 2016-12-05 16:06 | PN ---
DATE: 12/05/2016 SUBJECTIVE: The patient is seen sitting in bed. She is awake. She is alert. She is comfortable. She denies any chest pain. She denies any nausea. She denies any vomiting. PHYSICAL EXAMINATION: GENERAL: Middle-aged lady sitting in bed. VITAL SIGNS: Blood pressure 161/60, heart rate 62, respiratory rate 20, temperature 97.5. HEENT: Normocephalic, atraumatic. NECK: Supple, no JVD. LUNGS: Bilateral equal air entry. No rales. EXTREMITIES: No lower extremity edema. LABORATORY DATA: WBC 8, hemoglobin 11.4, hematocrit 36, platelets 222. No new chemistry. CURRENT MEDICATIONS: List reviewed. ASSESSMENT: 1. Status post accelerated hypertension, shortness of breath, nausea, vomiting. 2. Severe hypertension. 3. Congestive heart failure. 4. End-stage renal disease. PLAN: 1. Stable dialysis yesterday. 2. Continue outpatient antihypertensives. 3. No objection to discharge. Tamanna Smith MD cc: [id number] TT: 12/05/2016 16:05:47 Confirmation # [id number] Dictation # [id number] mn
--- NOTE | 2016-12-05 21:28 | DS ---
The patient is 56 years old who was admitted with intractable nausea and vomiting. She was having ch est pain, pressure, and shortness of breath. Blood pressure was 220/110. The patient received dialy sis. After dialysis started to have vomiting. She was evaluated by Dr. Bermudez. There was nothing to offer for her. She has had endoscopy done in the past and she has gastroparesis, was not respond ing to Zofran; however, once her blood pressure was brought down, she started to feel better. PHYSICAL EXAMINATION: GENERAL: Today, she is awake and alert, communicative. VITAL SIGNS: She is afebrile, pulse 62, respirations 20, blood pressure 160/60. LUNGS: Bilateral fair airflow. No rhonchi or crackle. HEART: S1, S2 audible. ABDOMEN: Soft, nontender, no rebound, no guarding. NEUROLOGIC: The patient is awake and alert, communicative. EXTREMITIES: Bilateral legs, no edema. ASSESSMENT: 1. Uncontrolled hypertension. 2. End-stage renal disease, on hemodialysis. 3. Gastroparesis. 4. Hypertension. 5. Hyperlipidemia. PLAN: The patient is being discharged home. She is given prescription of Zofran by [facility]. e will resume all her medication as prior to admission, that include metoprolol 100 mg twice a day, N orvasc 10 mg daily. She is on Protonix 40 mg daily. She is on Zofran 4 mg q. 6 p.r.n. She is on Sen sipar. Renagel. She will follow up for her dialysis in a.m. that she receives on Tuesdays, s, Saturdays. She is advised to follow up in the office in a week. Brittany Coffman MD cc: [phone] TT: 12/05/2016 21:27:31 ln
== END 2016-12-05 14:52 | disposition home or self-care (01) ==
LOC: ED 08:42 → ERH 12:42 → 3RNO 14:40
PROVIDERS: ADMIT Internal Medicine; ATTEND Internal Medicine
DX: E11.43 Type 2 diabetes mellitus with diabetic autonomic (poly)neuropathy (principal); K31.84 Gastroparesis; I13.2 Hypertensive heart and chronic kidney disease with heart failure and with stage 5 chronic kidney disease, or end stage renal disease; I50.9 Heart failure, unspecified; E11.22 Type 2 diabetes mellitus with diabetic chronic kidney disease; N18.6 End stage renal disease; E78.5 Hyperlipidemia, unspecified; I27.2 Other secondary pulmonary hypertension; J44.9 Chronic obstructive pulmonary disease, unspecified; K29.70 Gastritis, unspecified, without bleeding; R55 Syncope and collapse; Z99.2 Dependence on renal dialysis; Z87.11 Personal history of peptic ulcer disease; D63.1 Anemia in chronic kidney disease
CPT/HCPCS: 71010; 80053; 82550; 83615; 83735; 83880; 84484; 85025; 93005; 94640; 96374; 99285; C9113; G0378; J2405

== ENCOUNTER 2016-12-18 09:22 | Observation (INO) | payer MEDICARE, OTHER ==
[2016-12-18 09:29] VITALS: BMI 26.9
[2016-12-18 09:33] VITALS: TEMP 98.7
--- NOTE | 2016-12-18 09:43 | ED PDOC ---
Arrival/HPI - General Chief Complaint: Chest Pain Time Seen by Provider: 12/18/16 09:42 Historian: Patient - History of Present Illness Narrative History of Present Illness (Text): 12/18/16 09:42 A 56 year old female, whose past medical history includes ESRD with hemodialysis on /Thu, renal insufficiency, pulmonary hypertension, chronic anemia, peptic ulcer disease and gastritis, presents to the emergency department complaining of swelling throughout her body. Patient reports she missed her dialysis treatment this morning. She notes chronic chest discomfort which she states she usually gets when she does not receive dialysis. PMD: Dr. Coffman Time/Duration: Other (This morning) Symptom Course: Unchanged Quality: Other Context: Other Past Medical History - Provider Review Nursing Documentation Reviewed: Yes - Infectious Disease Hx of Infectious Diseases: None - Tetanus Immunization Tetanus Immunization: Unknown - Reproductive Menopause: Yes - Cardiac Hx Cardiac Disorders: Yes (mi, cardiomyopathy,cad,dvt) Hx Congestive Heart Failure: Yes Hx Hypertension: Yes - Pulmonary Hx Respiratory Disorders: Yes Hx Chronic Obstructive Pulmonary Disease (COPD): Yes - Neurological Hx Neurological Disorder: Yes Hx Dizziness: Yes Hx Migraine: Yes - HEENT Hx HEENT Disorder: Yes (tinnitus, hearing loss right ear) - Renal Hx Renal Disorder: Yes Hx Dialysis: Yes Date of Last Dialysis Treatment: 12/02/16 - Endocrine/Metabolic Hx Endocrine Disorders: Yes Hx Diabetes Mellitus Type 2: Yes Hx Hypothyroidism: Yes - Hematological/Oncological Hx Blood Disorders: Yes Hx Anemia: Yes (blood transfusion) - Integumentary Hx Dermatological Disorder: No - Musculoskeletal/Rheumatological Hx Musculoskeletal Disorders: Yes Hx Falls: Yes (past) - Gastrointestinal Hx Gastrointestinal Disorders: Yes (diverticulosis, hiatal hernia) Hx Diverticulitis: Yes Hx Gastroesophageal Reflux: Yes - Genitourinary/Gynecological Hx Genitourinary Disorders: Yes - Psychiatric Hx Psychophysiologic Disorder: Yes Hx Anxiety: Yes Hx Substance Use: No - Past Surgical History Past Surgical History: Unable to Obtain - Surgical History Hx Appendectomy: Yes Hx Cardiac Catheterization: Yes (08/26/12) Hx Coronary Stent: Yes Other/Comment: r arm avfistula no in use due to clot, pt has rcw hd catheter in use for hd, tonsillectomy, rcw udall in and out, thoracenthesis x2, c section - Anesthesia Hx Anesthesia: Yes Hx Anesthesia Reactions: No Hx Malignant Hyperthermia: No - Suicidal Assessment Feels Threatened In Home Enviroment: No Family/Social History - Physician Review Nursing Documentation Reviewed: Yes Family/Social History: No Known Family HX Smoking Status: Former Smoker Hx Alcohol Use: No Hx Substance Use: No Hx Substance Use Treatment: No Allergies/Home Meds Allergies/Adverse Reactions: Allergies ciprofloxacin Allergy (Verified 12/18/16 09:38) RASH hydralazine Allergy (Verified 12/18/16 09:38) RASH vancomycin Allergy (Verified 12/18/16 09:38) SHORTNESS OF BREATH ct dye Allergy (Uncoded 12/18/16 09:38) RASH Home Medications: Home Meds Medication Instructions Recorded Confirmed Cinacalcet [Sensipar] 30 mg PO DAILY 03/05/15 12/18/16 Dexlansoprazole [Dexilant] 60 mg PO DAILY 03/10/16 12/18/16 Sildenafil [Revatio] 20 mg PO DAILY 03/10/16 12/18/16 Metoprolol Tartrate [Lopressor] 100 mg PO BID 04/29/16 12/18/16 Sevelamer [Renagel] 1,600 mg PO QID 04/29/16 12/18/16 cloNIDine [Catapres] 0.2 mg PO TID 06/04/16 12/18/16 Physical Exam - Physical Exam Narrative Physical Exam (Text): - Review of Systems Constitutional: (+) Swelling throughout body absent: Fatigue, Weight Change, Fevers Eyes: Normal ENT: Normal Respiratory: Normal absent: SOB, Cough, Sputum Cardiovascular: (+) Chronic chest pain absent: Palpitations, Syncope Gastrointestinal: Normal absent: Abdominal pain, Diarrhea, Nausea, Vomiting Genitourinary: Normal. absent: Dysuria, Frequency, Hematuria Musculoskeletal: Normal. absent: Arthralgias, Back Pain, Neck Pain Skin: Normal Neurological: Normal absent: Focal Weakness Endocrine: Normal Hemo/Lymphatic: Normal Psychiatric: Normal - Physical exam Patient appears age appropriate, speaking full sentences without difficulty - Systems Exam Head: Present: Atraumatic, Normocephalic Pupils: Present: PERRL Extraocular Muscles: Present: EOMI Conjunctiva: Present: Normal Mouth: Present: Moist Mucous Membranes Neck: Present: Normal Range of Motion. No: MIDLINE TENDERNESS, Paraspinal Tenderness Respiratory/Chest: Present: Clear to Auscultation, Good Air Exchange. No: Respiratory Distress, Accessory Muscle Use, Tachypneic Cardiovascular: Present: Regular Rate and Rhythm, Normal S1, S2, Peripheral Pulses Present. No: Murmurs Abdomen: Present: Normal Bowel Sounds, No: Tenderness, Peritoneal Signs, Rebound, Guarding, Distention Back: Present: Normal Inspection. No: Midline Tenderness, Paraspinal Tenderness Upper Extremity: Present: Normal Inspection. No: Cyanosis, Edema Lower Extremity: Present: Normal Inspection. No: Edema Neurological: Present: GCS=15, Speech Normal, cranial nerves II through XII fully intact with no cerebellar abnormality, neuro-sensory fully intact. No focal neurological deficits. Skin: Present: Warm, Dry, Normal Color. No: Rashes Lymphatic: Present: OX3, NI, NC Psychiatric: Present: Alert, Oriented x 3, Normal Insight, Normal Concentration Vital Signs Reviewed: Yes Vital Signs Temp Pulse Pulse Resp BP Pulse Ox 12/18/16 16:22 74 20 124/64 98 12/18/16 14:30 76 18 126/84 96 12/18/16 11:13 82 251/106 H 12/18/16 11:00 76 20 235/110 H 100 12/18/16 10:29 71 12/18/16 09:33 98.7 F 99 H 20 191/115 H 97 Temperature: Afebrile Blood Pressure: Hypertensive Pulse: Tachycardic Respiratory Rate: Normal Appearance: Positive for: Well-Appearing, Non-Toxic, Comfortable Pain Distress: None Mental Status: Positive for: Alert and Oriented X 3 Medical Decision Making ED Course and Treatment: 12/18/16 09:42 Impression: A 56 year old female with swelling throughout her body. Patient missed dialysis this morning. She notes chronic chest pain, which she gets when she misses her treatment. Plan: -- Chest xray -- Labs -- Nitroglycerin -- Reassess and disposition - Lab Interpretations I have reviewed the lab results: Yes - RAD Interpretation Radiology Orders: 12/18/16 09:52 CHEST PORTABLE [RAD] Stat - Medication Orders Current Medication Orders: Discontinued Medications Amlodipine Besylate (Norvasc) 10 mg PO STAT STA Stop: 12/18/16 10:57 Last Admin: 12/18/16 11:13 Dose: 10 MG MAR Pulse and Blood Pressure Document 12/18/16 11:13 JOL (Rec: 12/18/16 11:13 JOL [id number]) Pulse Pulse Rate (60-90) 82 Blood Pressure Blood Pressure (100/60-150/90) 251/106 Heparin Sodium (Porcine) (Heparin Lock Flush) Confirm Administered Dose 300 unit .ROUTE .STK-MED ONE Stop: 12/18/16 09:44 Last Admin: 12/18/16 10:11 Dose: Nitroglycerin (Nitro-Bid 2% Oint) 1 ea TOP STAT STA Stop: 12/18/16 10:03 Last Admin: 12/18/16 10:16 Dose: 1 EA Ondansetron HCl (Zofran Inj) 4 mg IVP STAT STA Stop: 12/18/16 11:04 Last Admin: 12/18/16 11:14 Dose: 4 MG IVP Administration Document 12/18/16 11:14 CHRISTOS (Rec: 12/18/16 11:14 JOL [id number]) Charges for Administration # of IVP Administrations 1 Ondansetron HCl (Zofran Inj) Confirm Administered Dose 4 mg .ROUTE .STK-MED ONE Stop: 12/18/16 11:09 Oxycodone/Acetaminophen (Percocet 5/325 Mg Tab) 1 tab PO STAT STA Stop: 12/18/16 11:04 Last Admin: 12/18/16 11:13 Dose: 1 TAB ED OBSERVATION Discharge: Yes Date of observation admission: 12/18/16 Time of observation admission: 09:54 - Observation admission statement Patient is being placed in observation because:: Hemodialysis required, Chest pain - Goals of Observation Goals of observation are:: Monitor and treat symptoms - Progress Note Progress Note: 12/18/16 09:54 Patient with swelling throughout her body and chronic chest pain, due to missing dialysis treatment this morning. Report Date: 12/18/16 10:56 Procedure: Chest xray Dictated By: Darian Man MD Impression: No active disease. No significant interval change compared to the prior examination(s). 12/18/16 10:[address] Coffman at bedside, who recommends dialysis and to discharge home after HD if patient is asymptomatic. 12/18/16 11:03 Patient complaining of nausea and pain. Will order Percocet and Zofran. 12/18/16 11:20 Patient transferred to dialysis. 12/18/16 15:15 Patient back from dialysis, blood pressure decreased. Patient currently denies any chest pain, shortness of breath, bloating, swelling, or edema. Patient states that she feels well and would like to be discharged home. Pt states she understands to return to the ER right away for new or worsening symptoms or for inability to f/u with PMD or specialist as instructed. Patient states that she fully agrees with and understands discharge instructions. States that she agrees with the plan and disposition. Verbalized and repeated discharge instructions and plan. I have given the patient opportunity to ask any additional questions. - Scribe Statement The provider has reviewed the documentation as recorded by the Jayleen Mcclain Provider Scribe Attestation: All medical record entries made by the Scribe were at my direction and personally dictated by me. I have reviewed the chart and agree that the record accurately reflects my personal performance of the history, physical exam, medical decision making, and the department course for this patient. I have also personally directed, reviewed, and agree with the discharge instructions and disposition. Disposition/Present on Arrival - Present on Arrival Any Indicators Present on Arrival: No History of DVT/PE: No History of Uncontrolled Diabetes: No Urinary Catheter: No History of Decub. Ulcer: No History Surgical Site Infection Following: None - Disposition Have Diagnosis and Disposition been Completed?: Yes Diagnosis: Uncontrolled hypertension, ESRD (end stage renal disease) on dialysis Disposition: HOME/ ROUTINE Disposition Time: 09:54 Patient Plan: Discharge Patient Problems: Current Active Problems Problem Status Diagnosed Hypertensive left ventricular hypertrophy Active AV shunt thrombosis Acute Abdominal pain Acute CHF (congestive heart failure) Acute Chronic renal impairment Acute Dyspnea or other respiratory complaints Acute ESRD (end stage renal disease) Acute Edema of face Acute Headache Acute Leukocytosis Acute Pneumonia Acute Pulmonary edema Acute Tobacco user Acute Vomiting Acute Condition: STABLE
[2016-12-18] MEDS ORDERED: Nitroglycerin 2% Ointment Foilpak UD TOP STA (10:02)
[2016-12-18 10:17] LABS: ADD MANUAL DIFF? NO
[2016-12-18 10:23] LABS: BASO # 0.03 K/mm3 (0.0-2.0); BASO % 0.3 % (0.0-3.0); EOS # 0.1 (0.0-0.7); EOS % 0.6 % (1.5-5.0); GRAN # 7.37 (1.4-6.5); HEMATOCRIT 32.7 % (36.0-48.0); LYMPH # 1.1 (1.2-3.4); LYMPH % 12.4 % (22.0-35.0); MEAN CELL VOLUME 95.9 fL (80.0-105.0); MEAN CORPUSCULAR HEMOGLOBIN 30.2 pg (25.0-35.0); MEAN CORPUSCULAR HGB CONC 31.5 g/dl (31.0-37.0); MEAN PLATELET VOLUME 11.8 fl (7.0-11.0); MONO # 0.4 (0.1-0.6); MONO % 4.7 % (1.0-6.0); PLATELET COUNT 279 10^3/uL (120.0-450.0); RED CELL DISTRIBUTION WIDTH 16.5 % (11.5-14.5)
[2016-12-18 10:38] LABS: INR 1.05 (0.93-1.08); PARTIAL THROMBOPLASTIN TIME 25.7 Seconds (23.7-30.8)
--- NOTE | 2016-12-18 10:58 | RAD ---
HISTORY: Cough. Technique: Single view portable semi erect @ 10:00 COMPARISON: 12/03/2016. FINDINGS: LUNGS: No active pulmonary disease. PLEURA: No significant pleural effusion identified, no pneumothorax apparent. CARDIOVASCULAR: Cardiomegaly. No evidence of acute, significant cardiovascular disease. Venous access catheter in stable, satisfactory position. OSSEOUS STRUCTURES: No significant abnormalities. VISUALIZED UPPER ABDOMEN: Normal. OTHER FINDINGS: None. IMPRESSION: No active disease. No significant interval change compared to the prior examination(s).
[2016-12-18] MEDS ORDERED: Oxycodone/Acetaminophen 5/325 mg Tab PO STA (11:03)
[2016-12-18 11:26] LABS: ALB/GLOB RATIO 1.4 (1.1-1.8); BILIRUBIN,TOTAL 0.5 mg/dL (0.2-1.3); CALCIUM 9.5 mg/dL (8.4-10.5); POTASSIUM 5.1 mmol/L (3.6-5.0)
--- NOTE | 2016-12-18 11:36 | CARD ---
APPROVED REPORT EKG Measurement Heart [id number] <Conclusion> Normal sinus rhythm Possible Left atrial enlargement Left ventricular hypertrophy with repolarization abnormality PRWP No change
[2016-12-18 11:38] LABS: TROPONIN I 0.11 ng/mL
--- NOTE | 2016-12-18 12:42 | HP ---
The patient is a 56-year-old, known to me from multiple previous admissions. The patient states this morning she woke up with facial swelling, feels bloated. She thinks that she retained a lot of flui d, although she had had dialysis done on Thursday. Complained of feeling nauseous, complained of back ache, complained of headache. No fever or chills. No cough or congestion. PAST MEDICAL HISTORY: Significant for: 1. Uncontrolled hypertension. 2. AV shunt in the remote past, followed by steal syndrome and that was corrected by Dr. Luna. 3. End-stage renal disease, on hemodialysis. 4. Status post carotid stent placement because of carotid stenosis. 5. Gastritis. 6. Intermittent migraine headache. 7. Right renal artery stenosis. ALLERGIES: SHE IS ALLERGIC TO CIPROFLOXACIN, HYDRALAZINE, VANCOMYCIN AND CT SCAN DYE. MEDICATIONS AT HOME: She is on metoprolol 100 mg twice a day. She is on levothyroxine 75 mcg daily, Norvasc 10 mg daily, Xanax 0.25 b.i.d., Renagel 1600 q.i.d., Zofran as needed. She is on Pepcid 10 mg twice a day, Dexilant 60 mg daily, Plavix 75 daily, Sensipar 30 mg daily and clonidine 0.2 t.i.d. SOCIAL HISTORY: She is single, lives with her son. Still smokes here and there, used to be a heavy smoker in the past. Denies alcohol use. REVIEW OF SYSTEMS: Significant for bloating, facial swelling, hand swelling. Complaining of chest p ain and nausea. PHYSICAL EXAMINATION: GENERAL: She is awake and alert, communicative. VITAL SIGNS: She is afebrile, pulse 76, respirations 20, blood pressure of 251/106. LUNGS: Bilateral fair airflow, no rhonchi or crackle. HEART: S1, S2 audible. ABDOMEN: Soft, nontender, no rebound, no guarding. NEUROLOGIC: The patient is awake and alert, able to communicate. Moves all extremities. LABORATORY EXAMINATION: WBCs 9.0, hemoglobin 10.3, hematocrit 32.7, platelet of 279. PT 11.3, INR 1 .05, PTT 25.7. Chemistry is not available yet. ASSESSMENT: 1. Uncontrolled hypertension. 2. Chest pain, secondary to hypertension. 3. Peptic ulcer disease. 4. End-stage renal disease. 5. Fluid overload. PLAN: The patient will receive emergency dialysis. We will give her Protonix, give her analgesic. After dialysis, she will be reevaluated. If she continues to have chest pain, she will be admitted. Brittany Coffman MD cc: [phone] TT: 12/18/2016 12:41:52 en
[2016-12-18 16:23] VITALS: BP 124/64; PULSE 74; RESP 20; O2SAT 98
--- NOTE | 2016-12-18 16:38 | CON ---
DATE: 12/18/2016 REASON FOR CONSULTATION: Accelerated hypertension, hypertensive emergency, nausea, vomiting, chest p ain. HISTORY OF PRESENTING ILLNESS: A 56-year-old lady well known to me from multiple prior evaluations, outpatient dialysis, presented to the Emergency Room with complaints of swelling of the face, swellin g of the upper arms, nausea, abdominal pain, vomiting, chest tightness, palpitations. She had her dialysis on Thursday. She denies any fever, chills. In the Emergency Room, she was found to have blood pressure of 250/125. Found to have elevated potassium of 5.1. Consultation is requested for m anagement of blood pressure and ESRD. PAST MEDICAL AND SURGICAL HISTORY: Hypertension, multiple episodes of hypertensive emergency, COPD, pulmonary hypertension, peripheral vascular disease, ESRD, anemia, hyperphosphatemia. FAMILY HISTORY: Hypertension. SOCIAL HISTORY: Current smoker, no alcohol use, no IV drug abuse. ALLERGIES: CIPRO, HYDRALAZINE, VANCOMYCIN. CURRENT MEDICATIONS: Synthroid, amlodipine, Xanax, Revatio, Renagel, Zofran, Lopressor, Pepcid, Dexi lant, Plavix, Sensipar, Catapres. REVIEW OF SYSTEMS: All systems reviewed, pertinent positives as mentioned in history of presenting i llness, rest unremarkable. PHYSICAL EXAMINATION: GENERAL: Middle aged lady lying in bed with a very puffy face. VITAL SIGNS: Blood pressure 250/106, heart rate 82, respiratory rate 18, temperature 98. HEENT: Normocephalic, atraumatic, puffy eyes, puffy face. NECK: Supple, no JVD. LUNGS: Bilateral equal air entry, bilateral crackles. CARDIAC: S1, S2, regular rate and rhythm, no murmur, no rub. ABDOMEN: Obese, distended, soft, nontender, bowel sounds present. EXTREMITIES: No lower extremity edema. LABORATORY DATA: Sodium 141, potassium 5.1, chloride 100, CO2 26, BUN 66, creatinine 7.1, glucose 91 , calcium 9.5, AST 68, ALT 90, albumin 4.0. WBC 9, hemoglobin 10, hematocrit 33, platelets 279. ASSESSMENT AND PLAN: 1. Hypertensive emergency. 2. Superior vena cava syndrome? 3. Hyperkalemia. 4. End-stage renal disease. 5. Anemia of chronic kidney disease: PLAN: 1. Agree with nitro paste. 2. Resume outpatient antihypertensive. 3. Urgent dialysis, increased ultrafiltration, decrease dry weight. Thank you for the courtesy of this consultation. Tamanna Smith MD cc: [id number] TT: 12/18/2016 16:38:24 Confirmation # [id number] Dictation # [id number] ln
== END 2016-12-18 15:16 | disposition home or self-care (01) ==
LOC: ED 09:22 → EROBSV 09:54
PROVIDERS: ADMIT Emergency Medicine; ATTEND Emergency Medicine
DX: I12.0 Hypertensive chronic kidney disease with stage 5 chronic kidney disease or end stage renal disease (principal); N18.6 End stage renal disease; Z99.2 Dependence on renal dialysis
CPT/HCPCS: 36415; 71010; 80053; 82550; 83615; 84484; 85025; 85610; 85730; 93005; 96374; 99284; G0257; G0378; J2405

== ENCOUNTER 2017-01-07 04:46 | Observation (INO) | payer MEDICARE, OTHER ==
--- NOTE | 2017-01-07 05:10 | ED PDOC ---
Arrival/HPI - General Chief Complaint: GI Problem Time Seen by Provider: 01/07/17 04:58 Historian: Patient - History of Present Illness Narrative History of Present Illness (Text): 01/07/17 05:07 Renetta Thakru is a 56 year old female, whose past medical history includes hypertension, COPD, pulmonary hypertension, ESRD on hemodialysis, hypothyroidism , and gastritis, who presents to the emergency department complaining of chest pain, abdominal pain and shortness of breath. Patient also reports nausea and vomiting for the past 2 days, with occasional jaw pain. Patient staters she was fully dialyzed on 01/06/2017. Patient denies any fever, chills, diarrhea, urinary symptoms, back pain, neck pain, headache, dizziness, or any other complaints. PMD: Dr. Steven Coffman Time/Duration: < week (2 days) Symptom Onset: Gradual Symptom Course: Unchanged Activities at Onset: Rest, Light Context: Home Past Medical History - Provider Review Nursing Documentation Reviewed: Yes - Infectious Disease Hx of Infectious Diseases: None - Tetanus Immunization Tetanus Immunization: Unknown - Cardiac Hx Cardiac Disorders: Yes (mi, cardiomyopathy,cad,dvt) Hx Congestive Heart Failure: Yes Hx Hypertension: Yes - Pulmonary Hx Respiratory Disorders: Yes Hx Chronic Obstructive Pulmonary Disease (COPD): Yes - Neurological Hx Neurological Disorder: Yes Hx Dizziness: Yes Hx Migraine: Yes - HEENT Hx HEENT Disorder: Yes (tinnitus, hearing loss right ear) - Renal Hx Renal Disorder: Yes Hx Dialysis: Yes Date of Last Dialysis Treatment: 12/02/16 - Endocrine/Metabolic Hx Endocrine Disorders: Yes Hx Diabetes Mellitus Type 2: Yes Hx Hypothyroidism: Yes - Hematological/Oncological Hx Blood Disorders: Yes Hx Anemia: Yes (blood transfusion) - Integumentary Hx Dermatological Disorder: No - Musculoskeletal/Rheumatological Hx Musculoskeletal Disorders: Yes Hx Falls: Yes (past) - Gastrointestinal Hx Gastrointestinal Disorders: Yes (diverticulosis, hiatal hernia) Hx Diverticulitis: Yes Hx Gastroesophageal Reflux: Yes - Genitourinary/Gynecological Hx Genitourinary Disorders: Yes - Psychiatric Hx Psychophysiologic Disorder: Yes Hx Anxiety: Yes Hx Substance Use: No - Past Surgical History Past Surgical History: Unable to Obtain - Surgical History Hx Appendectomy: Yes Hx Cardiac Catheterization: Yes (08/26/12) Hx Coronary Stent: Yes Other/Comment: r arm avfistula no in use due to clot, pt has rcw hd catheter in use for hd, tonsillectomy, rcw udall in and out, thoracenthesis x2, c section - Anesthesia Hx Anesthesia: Yes Hx Anesthesia Reactions: No Hx Malignant Hyperthermia: No - Suicidal Assessment Feels Threatened In Home Enviroment: No Family/Social History - Physician Review Nursing Documentation Reviewed: Yes Family/Social History: No Known Family HX Smoking Status: Former Smoker Hx Alcohol Use: No Hx Substance Use: No Hx Substance Use Treatment: No Allergies/Home Meds Allergies/Adverse Reactions: Allergies ciprofloxacin Allergy (Verified 12/18/16 09:38) RASH hydralazine Allergy (Verified 12/18/16 09:38) RASH vancomycin Allergy (Verified 12/18/16 09:38) SHORTNESS OF BREATH ct dye Allergy (Uncoded 12/18/16 09:38) RASH Home Medications: Home Meds Medication Instructions Recorded Confirmed Cinacalcet [Sensipar] 30 mg PO DAILY 03/05/15 12/18/16 Dexlansoprazole [Dexilant] 60 mg PO DAILY 03/10/16 12/18/16 Sildenafil [Revatio] 20 mg PO DAILY 03/10/16 12/18/16 Metoprolol Tartrate [Lopressor] 100 mg PO BID 04/29/16 12/18/16 Sevelamer [Renagel] 1,600 mg PO QID 04/29/16 12/18/16 cloNIDine [Catapres] 0.2 mg PO TID 06/04/16 12/18/16 Review of Systems - Physician Review All systems were reviewed & negative as marked: Yes - Review of Systems Constitutional: Normal. absent: Fevers Eyes: Normal ENT: Normal Respiratory: SOB Cardiovascular: Chest Pain Gastrointestinal: Abdominal Pain, Nausea, Vomiting. absent: Diarrhea Genitourinary Female: Normal. absent: Dysuria, Frequency, Hematuria, Urine Output Changes Musculoskeletal: Normal. absent: Back Pain, Neck Pain Skin: Normal. absent: Rash Neurological: Normal. absent: Headache, Dizziness Endocrine: Normal Hemo/Lymphatic: Normal Psychiatric: Normal Physical Exam Vital Signs Reviewed: Yes Vital Signs Temp Pulse Resp BP Pulse Ox 01/07/17 04:53 98.0 F 81 21 211/96 H 100 Temperature: Afebrile Blood Pressure: Hypertensive Pulse: Regular Respiratory Rate: Normal Appearance: Positive for: Well-Appearing, Non-Toxic, Comfortable Pain Distress: None Mental Status: Positive for: Alert and Oriented X 3 - Systems Exam Head: Present: Atraumatic, Normocephalic Pupils: Present: PERRL Extroacular Muscles: Present: EOMI Conjunctiva: Present: Normal Mouth: Present: Moist Mucous Membranes Pharnyx: Present: Normal Neck: Present: Normal Range of Motion Respiratory/Chest: Present: Rhonchi. No: Respiratory Distress, Accessory Muscle Use Cardiovascular: Present: Regular Rate and Rhythm, Normal S1, S2. No: Murmurs Abdomen: Present: Tenderness (mild mid/ lower abdominal tenderness), Normal Bowel Sounds. No: Distention, Peritoneal Signs, Rebound, Guarding, Hernias Back: Present: Normal Inspection Upper Extremity: Present: Normal Inspection. No: Cyanosis, Edema Lower Extremity: Present: Normal Inspection. No: Edema Neurological: Present: GCS=15, CN II-XII Intact, Speech Normal Skin: Present: Warm, Dry, Normal Color. No: Rashes Psychiatric: Present: Alert, Oriented x 3, Normal Insight, Normal Concentration Medical Decision Making ED Course and Treatment: 01/07/17 05:07 Impression: 56 year old female complaining of chest pain, abdominal pain, and shortness of breath. Plan: -- EKG -- Chest X-ray -- Labs, cardiac enzymes, BNP, lipase -- Nitroglycerin -- Zofran -- Reassess and disposition Prior Visits: Notes and results from previous visits were reviewed. Progress Notes: Reviewed EKG, NSR at 79 bpm. LVH with repolarization abnormality. Non-specific ST/T wave changes. Unchanged from 12/18/2016. 01/07/17 06:12 Reviewed radiology, Chest X-ray shows no acute changes. - Lab Interpretations Lab Results: 01/07/17 05:30 Lab Results 01/07/17 05:30: WBC 9.1, RBC 4.26, Hgb 12.8, Hct 40.4, MCV 94.8, MCH 30.0, MCHC 31.7, RDW 14.9 H, Plt Count 229, MPV 10.9 01/07/17 05:30: PT 11.3, INR 1.05, APTT 26.4 I have reviewed the lab results: Yes - RAD Interpretation Radiology Orders: 01/07/17 05:10 CHEST PORTABLE [RAD] Stat 01/07/17 06:35 ABD & PELVIS W/O PO OR IV CONT [CT] Stat - EKG Interpretation Interpreted by ED Physician: Yes Type: 12 lead EKG - Medication Orders Current Medication Orders: Discontinued Medications Nitroglycerin (Nitro-Bid 2% Oint) 1 ea TOP ONCE STA Stop: 01/07/17 05:12 Last Admin: 01/07/17 05:34 Dose: 1 ea Ondansetron HCl (Zofran Inj) 4 mg IVP ONCE ONE Stop: 01/07/17 05:12 Last Admin: 01/07/17 05:34 Dose: 4 mg - Transfer of Care Patient signed out to Dr:: Faye Pending Labs:: Labs/CT scan/reassess/final disposition - Scribe Statement The provider has reviewed the documentation as recorded by the Scribe Ree Ramsay All medical record entries made by the Scribe were at my direction and personally dictated by me. I have reviewed the chart and agree that the record accurately reflects my personal performance of the history, physical exam, medical decision making, and the department course for this patient. I have also personally directed, reviewed, and agree with the discharge instructions and disposition. Disposition/Present on Arrival - Present on Arrival Any Indicators Present on Arrival: No History of DVT/PE: No History of Uncontrolled Diabetes: No Urinary Catheter: No History of Decub. Ulcer: No History Surgical Site Infection Following: None - Disposition Have Diagnosis and Disposition been Completed?: No Diagnosis: Chest pain, Abdominal pain, Vomiting Disposition Time: 07:00 Patient Problems: Current Active Problems Problem Status Onset Abdominal pain Acute Chest pain Acute Vomiting Acute Condition: STABLE Discharge Instructions (ExitCare): Chest Pain (ED)
[2017-01-07] MEDS ORDERED: Nitroglycerin 2% Ointment Foilpak UD TOP STA (05:11)
[2017-01-07 05:38] LABS: HEMATOCRIT 40.4 % (36.0-48.0); MEAN CELL VOLUME 94.8 fL (80.0-105.0); MEAN CORPUSCULAR HGB CONC 31.7 g/dl (31.0-37.0); MEAN PLATELET VOLUME 10.9 fl (7.0-11.0); RED CELL DISTRIBUTION WIDTH 14.9 % (11.5-14.5); WHITE BLOOD COUNT 9.1 10^3/ul (4.5-11.0)
[2017-01-07 05:53] LABS: INR 1.05 (0.93-1.08); PARTIAL THROMBOPLASTIN TIME 26.4 Seconds (23.7-30.8)
--- NOTE | 2017-01-07 07:01 | RAD ---
HISTORY: chest pain COMPARISON: 12/18/2016 FINDINGS: LUNGS: No active pulmonary disease. PLEURA: No significant pleural effusion identified, no pneumothorax apparent. CARDIOVASCULAR: Cardiomegaly as before. Venous access catheter in satisfactory position. OSSEOUS STRUCTURES: No significant abnormalities. VISUALIZED UPPER ABDOMEN: Normal. OTHER FINDINGS: None. IMPRESSION: No active disease. No change
--- NOTE | 2017-01-07 07:08 | CT ---
EXAM: CT Abdomen and Pelvis Without Intravenous Contrast CLINICAL HISTORY: 56 years old, female; Pain; Abdominal pain; Generalized TECHNIQUE: Axial computed tomography images of the abdomen and pelvis without intravenous contrast. This CT exam was performed using one or more of the following dose reduction techniques: automated exposure control, adjustment of the mA and/or kV according to patient size, and/or use of iterative reconstruction technique. Coronal and sagittal reformatted images were created and reviewed. EXAM DATE/TIME: 01/07/2017 6:35 AM COMPARISON: CT - ABD PELVIS W/O PO OR IV CONT 06/10/2016 2:49:22 PM FINDINGS: Lower thorax: No acute findings. ABDOMEN: Liver: Unremarkable. Gallbladder and bile ducts: Possible tiny poorly radiopaque gallstones. No ductal dilation. Pancreas: Unremarkable. No ductal dilation. Spleen: Unremarkable. No splenomegaly. Adrenals: Unremarkable. No mass. Kidneys and ureters: Unremarkable. No obstructing stones. No hydronephrosis. Stomach and bowel: Unremarkable. No dilatation of small or large bowel. No mucosal thickening. Appendix: Normal. PELVIS: Bladder: Unremarkable. No stones. Reproductive: Multiple left adnexal cysts, and total estimated about 4.5 x 2.5 x 4 cm. Unchanged. Calcified uterine myomas. ABDOMEN and PELVIS: Intraperitoneal space: Unremarkable. No free air. No significant fluid collection. Bones/joints: No acute fracture. Soft tissues: Unremarkable. Vasculature: Moderate to marked atherosclerotic calcifications. No abdominal aortic aneurysm. Lymph nodes: No enlarged lymph nodes. IMPRESSION: 1. Possible small poorly radiopaque gallstones. 2. Stable left ovarian cysts.
[2017-01-07] MEDS ORDERED: Morphine 2 mg/ml ISec IVP STA (07:34)
--- NOTE | 2017-01-07 07:53 | ED PDOC ---
Physical Exam Vital Signs Reviewed: Yes Vital Signs Temp Pulse Resp BP Pulse Ox 01/07/17 09:00 73 20 146/65 99 01/07/17 06:59 82 17 177/85 H 97 01/07/17 04:53 98.0 F 81 21 211/96 H 100 Temperature: Afebrile Blood Pressure: Hypertensive Pulse: Regular Respiratory Rate: Normal Appearance: Positive for: Well-Appearing, Non-Toxic, Comfortable Pain Distress: None Mental Status: Positive for: Alert and Oriented X 3 Medical Decision Making ED Course and Treatment: 01/07/17 07:50 Case endorsed to me by , pending imaging, reevaluation and disposition. Patient is a 56 year old female who presents to emergency department complaining of 2 day duration of right upper quadrant abdominal pain , which is worsened after eating. CT suggestive of possible gall stones. Ultrasound ordered for further evaluation. On PE, there is palpable tenderness to right upper quadrant. Currently denies any chest pain or shortness of breath. Ordered Morphine for pain. Blood pressure improved post treatment in the emergency department. Will admit patient for possible biliary colic and to r/o cholelithiasis. EXAM: CT Abdomen and Pelvis Without Intravenous Contrast FINDINGS: Lower thorax: No acute findings. ABDOMEN: Liver: Unremarkable. Gallbladder and bile ducts: Possible tiny poorly radiopaque gallstones. No ductal dilation. Pancreas: Unremarkable. No ductal dilation. Spleen: Unremarkable. No splenomegaly. Adrenals: Unremarkable. No mass. Kidneys and ureters: Unremarkable. No obstructing stones. No hydronephrosis. Stomach and bowel: Unremarkable. No dilatation of small or large bowel. No mucosal thickening. Appendix: Normal. PELVIS: Bladder: Unremarkable. No stones. Reproductive: Multiple left adnexal cysts, and total estimated about 4.5 x 2.5 x 4 cm. Unchanged. Calcified uterine myomas. ABDOMEN and PELVIS: Intraperitoneal space: Unremarkable. No free air. No significant fluid collection. Bones/joints: No acute fracture. Soft tissues: Unremarkable. Vasculature: Moderate to marked atherosclerotic calcifications. No abdominal aortic aneurysm. Lymph nodes: No enlarged lymph nodes. IMPRESSION: 1. Possible small poorly radiopaque gallstones. 2. Stable left ovarian cysts. Due to persistent palpable abdominal pain, will admit for further evaluation given possible gallstones and persistent pain. Troponin mildly elevated. Chest pain not exertional currently. EKG unchanged. Suspect possibly renal related elevation, although due to risk factors patient will be admitted for monitoring. Reviewed findings and ct reading with Dr. Coffman, patient's PMD. 01/07/17 10:26 - Lab Interpretations Lab Results: 01/07/17 05:30 01/07/17 08:47 Lab Results 01/07/17 08:47: Sodium 139, Potassium 5.0, Chloride 97 L, Carbon Dioxide 23, Anion Gap 24 H, BUN 69 H, Creatinine 7.1 H, Est GFR ( Amer) 7, Est GFR ( Non-Af Amer) 6, Random Glucose 99, Calcium 9.6, Total Bilirubin 0.6, AST 20, ALT 30, Alkaline Phosphatase 180 H, Lactate Dehydrogenase 491, Total Creatine Kinase 47, Troponin I 0.13 H*, NT-Pro-B Natriuret Pep 51401 H, Total Protein 7.3 , Albumin 4.2, Globulin 3.1, Albumin/Globulin Ratio 1.4, Lipase 117 01/07/17 05:30: WBC 9.1, RBC 4.26, Hgb 12.8, Hct 40.4, MCV 94.8, MCH 30.0, MCHC 31.7, RDW 14.9 H, Plt Count 229, MPV 10.9 01/07/17 05:30: PT 11.3, INR 1.05, APTT 26.4 - RAD Interpretation Radiology Orders: 01/07/17 05:10 CHEST PORTABLE [RAD] Stat 01/07/17 06:35 ABD & PELVIS W/O PO OR IV CONT [CT] Stat 01/07/17 07:24 ABDOMEN COMPLETE [US] Stat - Medication Orders Current Medication Orders: Discontinued Medications Alprazolam (Xanax) 0.25 mg PO STAT STA Stop: 01/07/17 09:37 Last Admin: 01/07/17 09:46 Dose: 0.25 mg Aspirin (Aspirin Chewable) 81 mg PO STAT STA Stop: 01/07/17 09:37 Last Admin: 01/07/17 09:46 Dose: 81 mg Clonidine HCl (Catapres) 0.2 mg PO STAT STA Stop: 01/07/17 06:47 Last Admin: 01/07/17 07:08 Dose: 0.2 mg Morphine Sulfate (Morphine) 4 mg IVP STAT STA Stop: 01/07/17 07:35 Last Admin: 01/07/17 07:59 Dose: 4 mg Re-Assess: MATTHEW Pain Assessment Document 01/07/17 08:59 [facility] (Rec: 01/07/17 09:16 [id number] Pain Reassessment Is this a pain reassessment? Yes Sleep Is patient sleeping during reassessment? No Presence of Pain Presence of Pain No Nitroglycerin (Nitro-Bid 2% Oint) 1 ea TOP ONCE STA Stop: 01/07/17 05:12 Last Admin: 01/07/17 05:34 Dose: 1 ea Ondansetron HCl (Zofran Inj) 4 mg IVP ONCE ONE Stop: 01/07/17 05:12 Last Admin: 01/07/17 05:34 Dose: 4 mg Disposition/Present on Arrival - Present on Arrival Any Indicators Present on Arrival: No History of DVT/PE: No History of Uncontrolled Diabetes: No Urinary Catheter: No History of Decub. Ulcer: No History Surgical Site Infection Following: None - Disposition Have Diagnosis and Disposition been Completed?: Yes Diagnosis: Chest pain, Abdominal pain, Vomiting Disposition: HOSPITALIZED Disposition Time: 09:00 Patient Plan: Admission, Telemetry Patient Problems: Current Active Problems Problem Status Onset Abdominal pain Acute Chest pain Acute Vomiting Acute Condition: FAIR
--- NOTE | 2017-01-07 08:53 | US ---
HISTORY: upper abdominal pain COMPARISON: None. TECHNIQUE: Sonographic evaluation of the abdomen. FINDINGS: LIVER: Measures 17.0 cm. Normal echogenicity of the liver parenchyma. No mass. No intrahepatic bile duct dilatation. GALLBLADDER: Unremarkable. No gallstones. COMMON BILE DUCT: Measures 4 mm. No stones. No dilatation. PANCREAS: Unremarkable as visualized. No mass. No ductal dilatation. RIGHT KIDNEY: Measures 5.8cm. Increased echogenicity. No calculus. No hydronephrosis. No mass LEFT KIDNEY: Measures 6.1cm. Increased echogenicity No calculus, mass, or hydronephrosis. SPLEEN: Normal in size and contour. No mass. AORTA: No aneurysmal dilatation. IVC: Unremarkable. OTHER FINDINGS: None. IMPRESSION: Bilateral diffuse increased renal cortical echogenicity consistent with medical renal disease. History of dialysis.
[2017-01-07 09:03] LABS: ALB/GLOB RATIO 1.4 (1.1-1.8); BILIRUBIN,TOTAL 0.6 mg/dL (0.2-1.3); CALCIUM 9.6 mg/dL (8.4-10.5); TOTAL PROTEIN 7.3 g/dL (5.8-8.3)
[2017-01-07 09:32] LABS: TROPONIN I 0.13 ng/mL
[2017-01-07] MEDS: Sildenafil 20 MG TAB PO SCH (11:38)
--- NOTE | 2017-01-07 12:16 | CP.PCM.CON ---
<Noel Meyer - Last Filed: 01/07/17 12:53> History of Present Illness - History of Present Illness History of Present Illness: Surgery Consult Note. Dr. Garcia 56yo F with PMHx of HTn, AV Shunt w/steal s/p revision, ESRD on dialysis, CAD, Gastritis, Migraines, Renal Artery stenosis, COPD w/ Pulmonary hypertension here for evaluation of abdominal pain. Pain started 2 days ago, also with intermittent nausea and vomiting, non-bilious, non-bloody. Patient denies anything that makes the pain worse or better. Has been having regular BMs. Denies any urinary symptoms. No Fevers, chills. Patient also c/o a mobile mass on lower back and right upper quadrant of abdomen. States that the RUQ mass is associated with some mild pain and discomfort. The back mass does not cause her any discomfort. No CP. No Back pain. No Neck Pain. No headache, no dizziness. PMHx: HTN, AV Shunt, ESRD on dialysis, CAD, Gastritis, Migraines, Renal Artery Stenosis, COPD w/ Pulmonary hypertension PSHx: Right Arm AV fistula w/ steal s/p revision. Family Hx: HTN, DM2 Social Hx: Previous Tobacco use, Denies any ETOH use, Denies illicit drugs Allergy: Cipro, Hydralazine, Vancomycin, CT Dye Review of Systems - Review of Systems All systems: reviewed and no additional remarkable complaints except - Constitutional Constitutional: absent: Chills, Fever - EENT Eyes: absent: Blurred Vision - Cardiovascular Cardiovascular: absent: Chest Pain - Respiratory Respiratory: absent: Cough - Gastrointestinal Gastrointestinal: Abdominal Pain, Nausea, Vomiting. absent: Diarrhea - Musculoskeletal Musculoskeletal: absent: Back Pain Past Patient History - Infectious Disease Hx of Infectious Diseases: None - Tetanus Immunizations Tetanus Immunization: Unknown - Past Social History Smoking Status: Former Smoker - CARDIAC Hx Cardiac Disorders: Yes (mi, cardiomyopathy,cad,dvt) Hx Congestive Heart Failure: Yes Hx Hypertension: Yes - PULMONARY Hx Respiratory Disorders: Yes Hx Chronic Obstructive Pulmonary Disease (COPD): Yes - NEUROLOGICAL Hx Neurological Disorder: Yes Hx Dizziness: Yes Hx Migraine: Yes - HEENT Hx HEENT Problems: Yes (tinnitus, hearing loss right ear) - RENAL Hx Chronic Kidney Disease: Yes Hx Dialysis: Yes Date of Last Dialysis Treatment: 12/02/16 - ENDOCRINE/METABOLIC Hx Endocrine Disorders: Yes Hx Diabetes Mellitus Type 2: Yes Hx Hypothyroidism: Yes - HEMATOLOGICAL/ONCOLOGICAL Hx Blood Disorders: Yes Hx Anemia: Yes (blood transfusion) - INTEGUMENTARY Hx Dermatological Problems: No - MUSCULOSKELETAL/RHEUMATOLOGICAL Hx Musculoskeletal Disorders: Yes Hx Falls: Yes (past) - GASTROINTESTINAL Hx Gastrointestinal Disorders: Yes (diverticulosis, hiatal hernia) Hx Diverticulitis: Yes Hx Gastroesophageal Reflux: Yes - GENITOURINARY/GYNECOLOGICAL Hx Genitourinary Disorders: Yes - PSYCHIATRIC Hx Psychophysiologic Disorder: Yes Hx Anxiety: Yes Hx Substance Use: No - SURGICAL HISTORY Hx Appendectomy: Yes Hx Cardiac Catheterization: Yes (08/26/12) Hx Coronary Stent: Yes Other/Comment: r arm avfistula no in use due to clot, pt has rcw hd catheter in use for hd, tonsillectomy, rcw udall in and out, thoracenthesis x2, c section - ANESTHESIA Hx Anesthesia: Yes Hx Anesthesia Reactions: No Hx Malignant Hyperthermia: No Meds Allergies/Adverse Reactions: Allergies Allergy/AdvReac Type Severity Reaction Status Date / Time ciprofloxacin Allergy RASH Verified 12/18/16 09:38 hydralazine Allergy RASH Verified 12/18/16 09:38 vancomycin Allergy SHORTNESS Verified 12/18/16 09:[address] dye Allergy RASH Uncoded 12/18/16 09:38 - Medications Medications: Current Medications Alprazolam (Xanax) 0.25 mg PO BID [facility] PRN Reason: Protocol Last Admin: 01/07/17 11:26 Dose: Not Given Amlodipine Besylate (Norvasc) 10 mg PO DAILY [facility] Last Admin: 01/07/17 11:38 Dose: 10 mg Cinacalcet (Sensipar) 30 mg PO DAILY [facility] Last Admin: 01/07/17 11:37 Dose: 30 mg Clonidine HCl (Catapres) 0.2 mg PO TID [facility] Levothyroxine Sodium (Synthroid) 75 mcg PO DAILY [facility] Metoprolol Tartrate (Lopressor) 100 mg PO BID [facility] Last Admin: 01/07/17 11:37 Dose: 100 mg Pantoprazole Sodium (Protonix Inj) 40 mg IVP DAILY [facility] Last Admin: 01/07/17 11:39 Dose: 40 mg Sevelamer HCl (Renagel) 1,600 mg PO QID [facility] Sildenafil Citrate (Revatio) 20 mg PO DAILY [facility] Last Admin: 01/07/17 11:38 Dose: 20 mg Physical Exam - Constitutional Appears: Well - Head Exam Head Exam: ATRAUMATIC, NORMAL INSPECTION, NORMOCEPHALIC - Eye Exam Eye Exam: EOMI. absent: Scleral icterus - ENT Exam ENT Exam: Mucous Membranes Moist - Cardiovascular Exam Cardiovascular Exam: absent: JVD - GI/Abdominal Exam GI & Abdominal Exam: Soft. absent: Distended, Guarding Additional comments: Epigastric tenderness. RUQ tenderness to palpation - Extremities Exam Extremities exam: Positive for: normal inspection - Neurological Exam Neurological exam: Alert, Oriented x3 - Psychiatric Exam Psychiatric exam: Normal Affect, Normal Mood Results - Vital Signs Recent Vital Signs: Last Vital Signs Temp 98.0 F 01/07/17 04:53 Pulse 79 01/07/17 11:37 Resp 20 01/07/17 09:00 BP 152/81 H 01/07/17 11:38 Pulse Ox 99 01/07/17 09:00 - Labs Result Diagrams: 01/07/17 05:30 01/07/17 08:47 Assessment & Plan - Assessment and Plan (Free Text) Assessment: 56yo F here with abdominal pain - CT Abd reviewed - no evidence of cholecystitis. No gallstones noted - Abd US - No GB wall thickening, no perichole fluid, no gallstones - Consider gastritis. Add Carafate to regimen - Advance diet as tolerated - No plans for any surgical intervention at this time. Will continue to follow Discussed case with Dr. Jose Meyer PGY1 surgery pager:[phone] <Jesus Manuel Garcia - Last Filed: 01/07/17 20:40> Meds - Medications Medications: Current Medications Alprazolam (Xanax) 0.25 mg PO BID [facility] PRN Reason: Protocol Last Admin: 01/07/17 18:40 Dose: 0.25 mg Amlodipine Besylate (Norvasc) 10 mg PO DAILY [facility] Last Admin: 01/07/17 11:38 Dose: 10 mg Cinacalcet (Sensipar) 30 mg PO DAILY [facility] Last Admin: 01/07/17 11:37 Dose: 30 mg Clonidine HCl (Catapres) 0.2 mg PO TID [facility] Last Admin: 01/07/17 18:40 Dose: 0.2 mg Levothyroxine Sodium (Synthroid) 75 mcg PO DAILY [facility] Metoprolol Tartrate (Lopressor) 100 mg PO BID [facility] Last Admin: 01/07/17 18:41 Dose: 100 mg Pantoprazole Sodium (Protonix Inj) 40 mg IVP DAILY [facility] Last Admin: 01/07/17 11:39 Dose: 40 mg Sevelamer HCl (Renagel) 1,600 mg PO QID [facility] Last Admin: 01/07/17 18:40 Dose: 1,600 mg Sildenafil Citrate (Revatio) 20 mg PO DAILY [facility] Last Admin: 01/07/17 11:38 Dose: 20 mg Sucralfate (Carafate Oral Susp) 1 gm PO DAILY [facility] Results - Vital Signs Recent Vital Signs: Last Vital Signs Temp 98 F 01/07/17 18:00 Pulse 91 H 01/07/17 18:00 Resp 17 01/07/17 18:00 BP 131/81 01/07/17 18:00 Pulse Ox 99 01/07/17 09:00 - Labs Result Diagrams: 01/07/17 05:30 01/07/17 08:47 Assessment & Plan - Assessment and Plan (Free Text) Assessment: Dx Epigastric Pain R/O GERD(Chronic) No evidence for cholelithiasis(CT ? Poss lucencies=stones) [facility] Evaluation/Better GERD Rx/?Motility-Ph Studies Consult done under my direct supervision: No Surgery recommended. Chester Garcia MD FACS
[2017-01-07] MEDS ORDERED: Sucralfate 1 gm/10 ml Oral Susp UD PO SCH (18:00)
[2017-01-07 21:10] VITALS: BMI 27.4
[2017-01-07] MEDS ORDERED: Pneumococcal 23-Valent Vaccine IM ONE (21:10)
--- NOTE | 2017-01-07 21:47 | CARD ---
APPROVED REPORT EKG Measurement Heart [id number] <Conclusion> Normal sinus rhythm Biatrial enlargement Left ventricular hypertrophy with repolarization abnormality Abnormal ECG
--- NOTE | 2017-01-07 23:16 | HP ---
HISTORY OF PRESENT ILLNESS: The patient is 56 years old, seen and examined. The patient states she has been having nausea, and she vomited. She had dialysis done yesterday. Since then she has not be en feeling well. She vomited last night and this morning. She has epigastric pain radiating to the right side and going towards the back. So because of her intractable vomiting, she came to Emergency Room for further evaluation. Denies any fever or chills. No hemoptysis. No hematemesis. The curtis ent states she is compliant with her dialysis recently. PAST MEDICAL HISTORY: 1. Significant for end-stage renal disease, on hemodialysis. She gets Thursday, , and ay. 2. Hypothyroidism. 3. Recent right carotid angioplasty. 4. Anxiety disorder. 5. History of pulmonary hypertension. ALLERGIES: THE PATIENT IS ALLERGIC TO CIPROFLOXACIN, HYDRALAZINE, AND VANCOMYCIN. SOCIAL HISTORY: She is single, lives with her son. She used to be a smoker, just quit a year or 2 a go. PHYSICAL EXAMINATION: GENERAL: She seems to be a bit comfortable now. She was given Zofran and Protonix earlier. She is awake and alert, communicative. VITAL SIGNS: She is afebrile, pulse , respirations 17, blood pressure 131/81. LUNGS: Bilateral fair airflow. Few expiratory . No rhonchi. HEART: S1, S2 audible. No murmur. ABDOMEN: Soft, nontender. No rebound. No guarding. NEUROLOGIC: She is awake and alert, communicative. LABORATORY DATA: WBC is 9.1, hemoglobin 12.8, hematocrit 40, platelet of 229. PT 11.3, INR 1.05. C hemistry: Sodium 139, potassium 5.0, chloride 97, CO2 23, BUN 69, creatinine 7.1, blood sugar of 99. Troponin 0.13. She had CT scan of the abdomen and pelvis done that shows questionable radiopaque g allstones and left ovarian cyst; however, she had abdominal sonogram done, did not show any cholelith iasis. ASSESSMENT: 1. Intractable nausea and vomiting. 2. End-stage renal disease, on hemodialysis. 3. Hypertension. 4. Right carotid angioplasty. 5. Chronic anemia. 6. Chronic gastritis. PLAN: We will continue patient on her usual medication including clonidine, metoprolol, amlodipine, and Protonix. Dr. Smith is consulted. I will continue her on Xanax as needed, and we will advance h er diet. I spoke to Dr. Garcia. There is no indication of any intervention, so we will watch her overnight, and if she remains stable, she will be discharged in a.m. Brittany Coffman MD cc: [phone] TT: 01/07/2017 23:15:58 tn
[2017-01-08 00:47] VITALS: RESP 20
[2017-01-08 05:53] VITALS: O2SAT 94
[2017-01-08] MEDS ORDERED: Levothyroxine 75 MCG TAB PO SCH (10:00)
[2017-01-08] MEDS ORDERED: Sucralfate 1 gm/10 ml Oral Susp UD PO SCH (10:00)
[2017-01-08] MEDS ORDERED: POLYETHYLENE GLYCOL 3350 17 GM/Dose PACKET PO SCH (10:00)
[2017-01-08 11:09] LABS: ADD MANUAL DIFF? NO
[2017-01-08 11:14] LABS: BASO # 0.03 K/mm3 (0.0-2.0); BASO % 0.3 % (0.0-3.0); EOS # 0.2 (0.0-0.7); EOS % 1.8 % (1.5-5.0); GRAN # 6.91 (1.4-6.5); GRAN % 76.3 % (50.0-68.0); HEMATOCRIT 33.9 % (36.0-48.0); LYMPH # 1.3 (1.2-3.4); LYMPH % 13.9 % (22.0-35.0); MEAN CELL VOLUME 94.7 fL (80.0-105.0); MEAN CORPUSCULAR HEMOGLOBIN 29.9 pg (25.0-35.0); MEAN CORPUSCULAR HGB CONC 31.6 g/dl (31.0-37.0); MEAN PLATELET VOLUME 11.1 fl (7.0-11.0); MONO # 0.7 (0.1-0.6); MONO % 7.7 % (1.0-6.0); PLATELET COUNT 223 10^3/uL (120.0-450.0); RED CELL DISTRIBUTION WIDTH 14.8 % (11.5-14.5); WHITE BLOOD COUNT 9.1 10^3/ul (4.5-11.0)
[2017-01-08 11:40] LABS: ALB/GLOB RATIO 1.4 (1.1-1.8); BILIRUBIN,TOTAL 0.5 mg/dL (0.2-1.3); CALCIUM 8.6 mg/dL (8.4-10.5); MAGNESIUM 2.3 mg/dL (1.7-2.2); PHOSPHOROUS 9.8 mg/dL (2.5-4.5); POTASSIUM 5.3 mmol/L (3.6-5.0); TOTAL PROTEIN 6.3 g/dL (5.8-8.3)
[2017-01-08] MEDS ORDERED: HYDROmorphone 1 mg/ml ISec IVP STA (11:58)
[2017-01-08] MEDS: Sildenafil 20 MG TAB PO SCH (13:08)
--- NOTE | 2017-01-08 13:26 | DS ---
The patient is 56 years old, seen and examined. Still feels nauseous, did not eat ____. Complained of back pain. Denies any vomiting this morning. No fever or chills. PHYSICAL EXAMINATION: VITAL SIGNS: She is afebrile, pulse 65, respirations 20, blood pressure 125/53. LUNGS: Bilateral fair airflow, no rhonchi or crackle. HEART: S1, S2 audible. ABDOMEN: Soft, nontender, no rebound, no guarding. NEUROLOGIC: The patient is awake and alert. She is communicative. EXTREMITIES: Bilateral leg, no edema. LABORATORY EXAM: WBC is 9.1, hemoglobin 10.7, hematocrit 33.9, platelets 223. PT 11.3, INR 1.05. C hemistry: Sodium 136, potassium 5.3, chloride 99, CO2 of 20, BUN 88, creatinine 9.3, blood sugar of 131. ASSESSMENT: 1. Intractable nausea, but that has seemed to be resolved. 2. Epigastric discomfort, probably secondary to gastroparesis versus peptic ulcer disease. 3. End-stage renal disease, on hemodialysis. 4. Hypertension. 5. Hyperlipidemia. 6. History of pulmonary hypertension. PLAN: I will give the patient a dose of Reglan. I will give her 1 dose of Dilaudid because she comp lained of back pain and she will be offered lunch. If she is able to tolerate and eat, then she can be discharged home later on. Brittany Coffman MD cc: [phone] TT: 01/08/2017 13:26:21 sn
--- NOTE | 2017-01-08 15:01 | CON ---
DATE: 01/08/2017 REASON FOR CONSULTATION: Hyperkalemia, hypertension, need for dialysis. HISTORY OF PRESENTING ILLNESS: A 56-year-old lady known to me from outpatient hemodialysis, presente d to the Emergency Room yesterday with complaints of right upper quadrant pain. She was also complai nidia of nausea and vomiting. She denies any fever, chills. She denies any hemoptysis. She denies a ny hematemesis. The patient had imaging studies in the Emergency Room. Did not show any abnormaliti es. The patient was monitored for severe hypertension, nausea and vomiting. She was found to have potassium of 5.3, blood pressure of 200/120. PAST MEDICAL AND SURGICAL HISTORY: ESRD, hypertension, COPD, GERD, gastritis, recurrent nausea, vomi ting, elevated blood pressure. FAMILY HISTORY: Noncontributory. SOCIAL HISTORY: Ex-smoker, no alcohol use, no IV drug abuse. ALLERGIES: CIPROFLOXACIN, HYDRALAZINE, VANCOMYCIN. MEDICATIONS AT HOME: List reviewed. REVIEW OF SYSTEMS: All systems are reviewed. Pertinent positives as mentioned in history of present ing illness, rest unremarkable. PHYSICAL EXAMINATION: GENERAL: Middle aged lady lying in bed. VITAL SIGNS: Blood pressure 153/69, heart rate 84, respiratory rate 18, temperature 98. HEENT: Normocephalic, atraumatic, positive pallor. NECK: Supple, no JVD. LUNGS: Bilateral equal air entry, no rales. CARDIAC: S1, S2, regular rate and rhythm, no murmur, no rub. ABDOMEN: Obese, distended, soft, nontender, bowel sounds present. EXTREMITIES: No lower extremity edema. LABORATORY DATA: WBC 9, hemoglobin 10.7, hematocrit 34, platelets 223. Sodium 136, potassium 5.3, c hloride 99, CO2 20, BUN 88, creatinine 9.3, glucose 131, calcium 8.6, phosphorus 9.8, magnesium 2.3, troponin 0.13. BNP 74,400. Abdominal ultrasound, bilateral diffuse increased renal cortical echogenicity, no gallstones. ASSESSMENT: 1. Nausea, vomiting, abdominal pain. 2. Hypertension. 3. End-stage renal disease. 4. Anemia of chronic disease. 5. Gastroesophageal reflux disease/gastritis. PLAN: 1. Dialysis today. 2. Continue PPI. 3. Continue antihypertensives. 4. Gastrointestinal follow up. Tamanna Smith MD cc: [phone] TT: 01/08/2017 15:00:55 Confirmation # [id number] Dictation # [id number] rn
[2017-01-08 16:41] VITALS: BP 132/60; PULSE 76; TEMP 98.1
== END 2017-01-08 20:40 | disposition home or self-care (01) ==
LOC: ED 04:46 → ERH 09:21 → INTOOBSV 09:35 → OBSVTOIN 09:35 → ERH 09:52 → 2RNO 10:29
PROVIDERS: ADMIT Internal Medicine; ATTEND Internal Medicine
DX: K31.84 Gastroparesis (principal); K27.9 Peptic ulcer, site unspecified, unspecified as acute or chronic, without hemorrhage or perforation; I13.2 Hypertensive heart and chronic kidney disease with heart failure and with stage 5 chronic kidney disease, or end stage renal disease; N18.6 End stage renal disease; E78.5 Hyperlipidemia, unspecified; I27.2 Other secondary pulmonary hypertension; D63.8 Anemia in other chronic diseases classified elsewhere; E03.9 Hypothyroidism, unspecified; E11.22 Type 2 diabetes mellitus with diabetic chronic kidney disease; E87.5 Hyperkalemia; G43.909 Migraine, unspecified, not intractable, without status migrainosus; H91.91 Unspecified hearing loss, right ear; H93.19 Tinnitus, unspecified ear; I25.10 Atherosclerotic heart disease of native coronary artery without angina pectoris; I42.9 Cardiomyopathy, unspecified; I50.9 Heart failure, unspecified; I70.1 Atherosclerosis of renal artery; J44.9 Chronic obstructive pulmonary disease, unspecified; K21.9 Gastro-esophageal reflux disease without esophagitis; K29.50 Unspecified chronic gastritis without bleeding; Z82.49 Family history of ischemic heart disease and other diseases of the circulatory system; Z83.3 Family history of diabetes mellitus; Z87.891 Personal history of nicotine dependence; Z90.49 Acquired absence of other specified parts of digestive tract; Z95.5 Presence of coronary angioplasty implant and graft; Z99.2 Dependence on renal dialysis; F41.9 Anxiety disorder, unspecified; K57.90 Diverticulosis of intestine, part unspecified, without perforation or abscess without bleeding; K44.9 Diaphragmatic hernia without obstruction or gangrene; Z88.1 Allergy status to other antibiotic agents; Z88.8 Allergy status to other drugs, medicaments and biological substances; R11.2 Nausea with vomiting, unspecified
CPT/HCPCS: 36415; 71010; 74176; 76700; 80053; 82550; 83615; 83690; 83735; 83880; 84100; 84484; 85025; 85027; 85610; 85730; 87040; 93005; 96374; 96375; 99285; C9113; G0378; J1170; J2270; J2405; J2765

== ENCOUNTER 2017-01-19 23:57 | Observation (INO) | payer MEDICARE, OTHER ==
[2017-01-20] VITALS: BMI 28.3
[2017-01-20] MEDS ORDERED: Nitroglycerin 50mg in D5W 50 MG/250 ML BOTTLE IV PRN (00:24)
[2017-01-20] MEDS ORDERED: HYDROmorphone 2 mg/ml ISec IVP STA (00:27)
--- NOTE | 2017-01-20 00:39 | ED PDOC ---
Arrival/HPI - General Chief Complaint: Chest Pain Time Seen by Provider: 01/19/17 23:58 Historian: Patient - History of Present Illness Narrative History of Present Illness (Text): 01/20/17 00:30 Renetta Thakur is a 56 year old female, whose past medical history includes hypertension. COPD, ESRD on hemodialysis, hypothyroidism, and gastritis, presents to the emergency department complaining of 1 hour duration of chest pain. States she recently had 2 stents placed at [facility] following an RI a week ago. No relieving or exacerbating factors. Patient reports that symptoms are accompanied with nausea and several episodes of vomiting. Denies fever, chills, headache, dizziness, diarrhea, abdominal pain, or any other complaints at this time. PMD: Dr. Coffman. Time/Duration: 1-3 hours Symptom Onset: Gradual Symptom Course: Unchanged Severity Level: Mild Activities at Onset: Light Context: Home Past Medical History - Provider Review Nursing Documentation Reviewed: Yes - Infectious Disease Hx of Infectious Diseases: None - Tetanus Immunization Tetanus Immunization: Unknown - Cardiac Hx Cardiac Disorders: Yes (mi, cardiomyopathy,cad,dvt) Hx Congestive Heart Failure: Yes Hx RI: Yes Hx Hypertension: Yes - Pulmonary Hx Respiratory Disorders: Yes Hx Chronic Obstructive Pulmonary Disease (COPD): Yes - Neurological Hx Neurological Disorder: Yes Hx Dizziness: Yes Hx Migraine: Yes - HEENT Hx HEENT Disorder: Yes (tinnitus, hearing loss right ear) - Renal Hx Renal Disorder: Yes Hx Dialysis: Yes Type of Dialysis Access: R chest permacath - Endocrine/Metabolic Hx Endocrine Disorders: Yes Hx Diabetes Mellitus Type 2: Yes Hx Hypothyroidism: Yes - Hematological/Oncological Hx Blood Disorders: Yes Hx Anemia: Yes (blood transfusion) - Integumentary Hx Dermatological Disorder: No - Musculoskeletal/Rheumatological Hx Musculoskeletal Disorders: Yes Hx Falls: Yes (past) - Gastrointestinal Hx Gastrointestinal Disorders: Yes (diverticulosis, hiatal hernia) Hx Diverticulitis: Yes Hx Gastroesophageal Reflux: Yes - Genitourinary/Gynecological Hx Genitourinary Disorders: Yes - Psychiatric Hx Psychophysiologic Disorder: Yes Hx Anxiety: Yes Hx Substance Use: No - Past Surgical History Past Surgical History: Unable to Obtain - Surgical History Hx Appendectomy: Yes Hx Cardiac Catheterization: Yes (08/26/12) Hx Coronary Stent: Yes Other/Comment: r arm avfistula no in use due to clot, pt has rcw hd catheter in use for hd, tonsillectomy, rcw udall in and out, thoracenthesis x2, c section - Anesthesia Hx Anesthesia: Yes Hx Anesthesia Reactions: No Hx Malignant Hyperthermia: No - Suicidal Assessment Feels Threatened In Home Enviroment: No Family/Social History - Physician Review Nursing Documentation Reviewed: Yes Family/Social History: No Known Family HX Smoking Status: Former Smoker Hx Alcohol Use: No Hx Substance Use: No Hx Substance Use Treatment: No Allergies/Home Meds Allergies/Adverse Reactions: Allergies ciprofloxacin Allergy (Verified 12/18/16 09:38) RASH hydralazine Allergy (Verified 12/18/16 09:38) RASH vancomycin Allergy (Verified 12/18/16 09:38) SHORTNESS OF BREATH ct dye Allergy (Uncoded 12/18/16 09:38) RASH Home Medications: Home Meds Medication Instructions Recorded Confirmed Cinacalcet [Sensipar] 30 mg PO DAILY 03/05/15 01/20/17 Sildenafil [Revatio] 20 mg PO DAILY 03/10/16 01/20/17 Metoprolol Tartrate [Lopressor] 100 mg PO BID 04/29/16 01/20/17 Sevelamer [Renagel] 1,600 mg PO QID 04/29/16 01/20/17 cloNIDine [Catapres] 0.2 mg PO TID 06/04/16 01/20/17 Review of Systems - Physician Review All systems were reviewed & negative as marked: Yes - Review of Systems Constitutional: Normal. absent: Fatigue, Fevers Respiratory: Normal. absent: SOB, Cough, Sputum Cardiovascular: Chest Pain. absent: Palpitations, Edema Gastrointestinal: Nausea, Vomiting. absent: Abdominal Pain, Diarrhea Neurological: Normal. absent: Headache, Dizziness Psychiatric: Normal Physical Exam Vital Signs Reviewed: Yes Vital Signs Temp Pulse Pulse Resp BP Pulse Ox 01/20/17 07:16 98 H 202/88 H 01/20/17 05:29 98.4 F 98 H 20 210/90 H 98 01/20/17 04:10 105 H 20 226/102 H 98 01/20/17 02:10 98.7 F 113 H 20 258/113 H 98 01/20/17 01:45 96 H 01/20/17 00:07 98.7 F 88 20 240/109 H 100 Temperature: Afebrile Blood Pressure: Hypertensive Pulse: Regular Respiratory Rate: Normal Appearance: Positive for: Well-Appearing, Non-Toxic, Comfortable Pain Distress: None Mental Status: Positive for: Alert and Oriented X 3 - Systems Exam Head: Present: Atraumatic, Normocephalic Pupils: Present: PERRL Conjunctiva: Present: Normal Mouth: Present: Moist Mucous Membranes Respiratory/Chest: Present: Clear to Auscultation, Good Air Exchange. No: Respiratory Distress, Accessory Muscle Use Cardiovascular: Present: Regular Rate and Rhythm, Normal S1, S2. No: Murmurs Abdomen: Present: Normal Bowel Sounds. No: Tenderness, Distention, Peritoneal Signs Upper Extremity: Present: Normal Inspection. No: Cyanosis, Edema Lower Extremity: Present: Normal Inspection. No: Edema Neurological: Present: GCS=15, CN II-XII Intact, Speech Normal, Motor Func Grossly Intact, Normal Sensory Function Skin: Present: Warm, Dry, Normal Color. No: Rashes Psychiatric: Present: Alert, Oriented x 3, Normal Insight, Normal Concentration Medical Decision Making ED Course and Treatment: 01/20/17 00:40 Impression: A 56 year old female who presents to the emergency department complaining of 1 hour duration of chest pain associated with nausea and vomiting. Plan: -- EKG -- Labs, cardiac enzymes -- Chest X-ray -- Dilaudid -- Nitroglycerin -- Urinalysis -- Reassess and disposition Progress Notes: 01/20/17 03:44 EKG reviewed by me: NSR @ 91 bpm. Possible left atrial enlargement. Left ventricular hypertrophy with repolarization abnormality. 01/20/17 05:[address] Coffman, who is aware and agrees with the plan to observe patient at telemetry for chest pain. Accepts patient under her service. - Lab Interpretations Lab Results: 01/20/17 02:40 01/20/17 02:40 Lab Results 01/20/17 02:40: Sodium 136, Potassium 5.6 H*, Chloride 97 L, Carbon Dioxide 19 L , Anion Gap 26 H, BUN 90 H, Creatinine 8.8 H*, Est GFR ( Amer) 6, Est GFR (Non-Af Amer) 5, Random Glucose 133 H, Calcium 9.6, Magnesium 2.2, Total Bilirubin 0.7, AST 48 H, ALT 67 H, Alkaline Phosphatase 232 H, Lactate Dehydrogenase 649, Total Creatine Kinase 44, Troponin I 0.13 H*, Total Protein 7.6, Albumin 4.4, Globulin 3.1, Albumin/Globulin Ratio 1.4 01/20/17 02:40: WBC 18.1 H D, RBC 3.47 L, Hgb 10.4 L, Hct 33.1 L, MCV 95.4, MCH 30.0, MCHC 31.4, RDW 15.2 H, Plt Count 338, MPV 10.1, Gran % 71.6 H, Lymph % ( Auto) 20.5 L, [place] % (Auto) 5.4, Eos % (Auto) 2.2, Baso % (Auto) 0.3, Gran # 12.94 H, Lymph # 3.7 H, [place] # 1.0 H, Eos # 0.4, Baso # 0.05 I have reviewed the lab results: Yes - RAD Interpretation Radiology Orders: 01/20/17 00:24 CHEST PORTABLE [RAD] Stat - EKG Interpretation Interpreted by ED Physician: Yes Type: 12 lead EKG - Medication Orders Current Medication Orders: Discontinued Medications Acetaminophen (Tylenol 325mg Tab) 650 mg PO Q4H PRN PRN Reason: Pain, Mild (1-3) Last Admin: 01/20/17 18:10 Dose: 650 mg Alprazolam (Xanax) 0.25 mg PO BID PRN PRN Reason: Anxiety Stop: 01/27/17 08:45 Last Admin: 01/21/17 01:31 Dose: 0.25 mg Re-Assess: Reassess Psych Meds Document 01/21/17 02:31 TTC (Rec: 01/21/17 03:18 TTC [id number]) Reassess Psych Med Effective Amlodipine Besylate (Norvasc) 10 mg PO DAILY [facility] Last Admin: 01/21/17 09:11 Dose: 10 mg Aspirin (Ecotrin) 81 mg PO DAILY [facility] Last Admin: 01/21/17 09:12 Dose: 81 mg Cinacalcet (Sensipar) 30 mg PO DAILY [facility] Last Admin: 01/21/17 09:12 Dose: 30 mg Clonidine HCl (Catapres) 0.2 mg PO TID [facility] Last Admin: 01/21/17 09:03 Dose: 0.2 mg Clopidogrel Bisulfate (Plavix) 75 mg PO DAILY [facility] Last Admin: 01/21/17 09:03 Dose: 75 mg Home Med (*Refrigerator Open) Confirm Administered Dose 1 unit XX .STK-MED ONE Stop: 01/20/17 18:50 Home Med (*Refrigerator Open) Confirm Administered Dose 1 unit XX .STK-MED ONE Stop: 01/21/17 06:08 Hydromorphone HCl (Dilaudid) 2 mg IVP STAT STA Stop: 01/20/17 00:28 Last Admin: 01/20/17 02:21 Dose: 2 mg Re-Assess: MATTHEW Pain Assessment Document 01/20/17 03:21 MR (Rec: 01/20/17 06:19 MR [id number]) Pain Reassessment Is this a pain reassessment? Yes Sleep Is patient sleeping during reassessment? Yes Isosorbide Mononitrate (Imdur) 30 mg PO DAILY [facility] Last Admin: 01/21/17 12:08 Dose: 30 mg Labetalol HCl (Trandate) 20 mg IV STAT STA Stop: 01/20/17 07:02 Last Admin: 01/20/17 07:16 Dose: 20 mg Levothyroxine Sodium (Synthroid) 75 mcg PO ACB [facility] Last Admin: 01/21/17 09:02 Dose: 75 mcg Metoprolol Tartrate (Lopressor) 100 mg PO BID [facility] Last Admin: 01/21/17 09:02 Dose: 100 mg Nitroglycerin (Nitro-Bid 2% Oint) 1 ea TOP ONCE STA Stop: 01/20/17 03:26 Last Admin: 01/20/17 03:40 Dose: 1 ea Nitroglycerin (Nitro-Bid 2% Oint) 1 ea TOP Q6H [facility] Last Admin: 01/21/17 09:12 Dose: 1 ea Ondansetron HCl (Zofran Inj) 4 mg IVP STAT STA Stop: 01/20/17 02:16 Last Admin: 01/20/17 02:21 Dose: 4 mg Ondansetron HCl (Zofran Inj) 4 mg IVP ONCE ONE Stop: 01/21/17 08:46 Last Admin: 01/21/17 08:56 Dose: 4 mg Sevelamer HCl (Renagel) 1,600 mg PO TID [facility] Last Admin: 01/21/17 09:03 Dose: 1,600 mg Sildenafil Citrate (Revatio) 20 mg PO DAILY [facility] Last Admin: 01/20/17 09:36 Dose: 20 mg Sildenafil Citrate (Revatio) 20 mg PO TID [facility] Last Admin: 01/21/17 09:02 Dose: 20 mg - Aaronibe Statement The provider has reviewed the documentation as recorded by the Jayleen Navas Provider Attestation: All medical record entries made by the Jayleen were at my direction and personally dictated by me. I have reviewed the chart and agree that the record accurately reflects my personal performance of the history, physical exam, medical decision making, and the department course for this patient. I have also personally directed, reviewed, and agree with the discharge instructions and disposition. Disposition/Present on Arrival - Present on Arrival Any Indicators Present on Arrival: No History of DVT/PE: No History of Uncontrolled Diabetes: No Urinary Catheter: No History of Decub. Ulcer: No History Surgical Site Infection Following: None - Disposition Have Diagnosis and Disposition been Completed?: Yes Diagnosis: Chest pain, Uncontrolled hypertension Disposition: HOSPITALIZED Disposition Time: 05:40 Condition: FAIR
[2017-01-20 02:49] LABS: ADD MANUAL DIFF? NO
[2017-01-20 02:54] LABS: BASO # 0.05 K/mm3 (0.0-2.0); BASO % 0.3 % (0.0-3.0); EOS # 0.4 (0.0-0.7); EOS % 2.2 % (1.5-5.0); GRAN # 12.94 (1.4-6.5); GRAN % 71.6 % (50.0-68.0); HEMATOCRIT 33.1 % (36.0-48.0); LYMPH # 3.7 (1.2-3.4); LYMPH % 20.5 % (22.0-35.0); MEAN CELL VOLUME 95.4 fL (80.0-105.0); MEAN CORPUSCULAR HGB CONC 31.4 g/dl (31.0-37.0); MEAN PLATELET VOLUME 10.1 fl (7.0-11.0); MONO % 5.4 % (1.0-6.0); PLATELET COUNT 338 10^3/uL (120.0-450.0); RED CELL DISTRIBUTION WIDTH 15.2 % (11.5-14.5); WHITE BLOOD COUNT 18.1 10^3/ul (4.5-11.0)
[2017-01-20 03:07] LABS: ALB/GLOB RATIO 1.4 (1.1-1.8); BILIRUBIN,TOTAL 0.7 mg/dL (0.2-1.3); CALCIUM 9.6 mg/dL (8.4-10.5); MAGNESIUM 2.2 mg/dL (1.7-2.2); TOTAL PROTEIN 7.6 g/dL (5.8-8.3)
[2017-01-20 03:19] LABS: POTASSIUM 5.6 mmol/L (3.6-5.0)
[2017-01-20 03:21] LABS: TROPONIN I 0.13 ng/mL
[2017-01-20] MEDS ORDERED: Nitroglycerin 2% Ointment Foilpak UD TOP STA (03:25)
--- NOTE | 2017-01-20 06:44 | CP.PCM.PN ---
Subjective - Date & Time of Evaluation Date of Evaluation: 01/20/17 Time of Evaluation: 06:43 - Subjective Subjective: # 24 angiocath was inserted in left upper arm. Dx:Poor venous access. Objective - Vital Signs/Intake and Output Vital Signs (last 24 hours): Temp Pulse Resp BP Pulse Ox 98.4 F 98 H 20 210/90 H 98 01/20/17 05:29 01/20/17 05:29 01/20/17 05:29 01/20/17 05:29 01/20/17 05:29 - Medications Medications: Current Medications Acetaminophen (Tylenol 325mg Tab) 650 mg PO Q4H PRN PRN Reason: Pain, Mild (1-3)
[2017-01-20] MEDS ORDERED: Labetalol 5 mg/ml Inj 20ML IV STA (07:01)
[2017-01-20] MEDS: Levothyroxine 75 MCG TAB PO SCH (09:37)
--- NOTE | 2017-01-20 09:38 | RAD ---
HISTORY: cp COMPARISON: 01/07/2017 FINDINGS: LUNGS: No active pulmonary disease. PLEURA: No significant pleural effusion identified, no pneumothorax apparent. CARDIOVASCULAR: Normal. OSSEOUS STRUCTURES: No significant abnormalities. VISUALIZED UPPER ABDOMEN: Normal. OTHER FINDINGS: Dialysis catheter IMPRESSION: No active disease.
[2017-01-20] MEDS ORDERED: Sildenafil 20 MG TAB PO SCH (10:00)
--- NOTE | 2017-01-20 10:25 | CON ---
DATE: 01/20/2017 SERVICE: Cardiology. CONSULTING PHYSICIAN: Dr. Pj Ontiveros. REASON FOR CONSULTATION: Chest pain, positive troponin, recent history of AL, status post angioplasty a week ago in [facility] BRIEF CLINICAL HISTORY: This is a 56-year-old female with extensive medical history, history of end-stage renal disease on dialysis, history of severe PAD, right SFA occlusion, history of recent AL a week ago when the patient went to her daughter's to see the game with her granddaughter at [place] where the patient had chest pain, AL, was taking to [facility], but because it was a [facility] [place] [facility], the patient was transferred to [facility], where the patient had stenting done last Thursday, discharged on Thursday or . The patient yesterday started vomiting with blood associated with chest pain, headache, so decided to come to the Emergency Room. Troponin was borderline, today positive. End-stage renal disease on dialysis , still feels headache as well as some chest discomfort. PAST MEDICAL HISTORY: Significant for hypertension, end-stage renal disease on dialysis, peripheral arterial disease, uncontrolled hypertension, history of hyperparathyroidism, history of COPD, history of recent AL, stented in the [facility] a week ago. Most recent cardiac workup as follows: The patient had a recent AL, was taken to [facility] where the patient was visiting with daughter and granddaughter, found to be AL, was transferred to [facility] and stenting was done on Thursday, remained in ICU and was discharged to home on . The patient had last echocardiography 04/26/2016 that shows ejection 55%, mild mitral regurgitation, mild tricuspid regurgitation, RV systolic pressure of 32, mild to moderate pulmonary insufficiency. History of right heart catheterization 08/28/2013 that revealed RA 28, RV 58/20, PA 55/30, mean PA 33, history of SFA totally occluded as mentioned, history of mesenteric artery angiogram, essentially normal. 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 History of right carotid artery stenting in October in [facility]. SOCIAL HISTORY: Denies smoking. Denies any history of alcohol abuse. ALLERGIES: CIPROFLOXACIN, HYDRALAZINE, VANCOMYCIN, AND CONTRAST DYE. CURRENT MEDICATIONS: The patient is taking clonidine 0.2 mg 3 times a day, sildenafil, Renagel, Zofran, metoprolol, levothyroxine, clopidogrel, Sensipar, amlodipine, Xanax. REVIEW OF SYSTEMS: As per HPI. PHYSICAL EXAMINATION: VITAL SIGNS: Temperature afebrile, heart rate 80, blood pressure 200/100. HEENT: PERRLA. Extraocular muscles intact. NECK: Supple. No carotid bruits. No thyromegaly. CHEST: Clear to auscultation. HEART: S1, S2 regular. ABDOMEN: Soft. EXTREMITIES: Clubbing and cyanosis negative. LABORATORY DATA: Blood workup as follows: WBC 18.8, hemoglobin 10.4, hematocrit 33.1, platelet count 338. Chemistry shows sodium 130, potassium 5.0 , chloride 97, carbon dioxide 19, anion gap of 26, BUN 19, creatinine 8.8. Troponin 0.13. AST 48, ALT 67. EKG shows normal sinus, T-wave inversion I, aVL lead II, V5, V6 with LVH with strain pattern. IMPRESSION: Recent history of myocardial infarction last , status post percutaneous transluminal coronary angioplasty with stenting done at [facility] last Thursday, status post end-stage renal disease on dialysis, status post percutaneous transluminal coronary angioplasty of right carotid artery stenting, history of mesenteric angiogram essentially negative, history of totally occluded superficial femoral artery, end-stage renal disease, congestive heart failure, mitral regurgitation, tricuspid regurgitation, pulmonary hypertension, positive gastrointestinal bleed, chest pain, epigastric pain, possibly secondary to nausea, vomiting, history of blood in the vomitus. RECOMMENDATION: Monitor serial H and H. Monitor troponin. We will get the records from the [facility]. The patient was told that 1 artery was blocked and it was opened, another artery 50% stenosis, does not need a stent. We will get the records from the [facility]. If echo was not done, we will repeat echo, but if already done will not order any tests, we will review the old chart. Interim, we will continue serial CPK, troponin, lipid profile, TSH, hemoglobin A1c, serial troponin. If the troponin trends down, no further intervention. If the troponin trends up, depending upon the cath report and information from the [facility], further recommendation will be made. Interim , continue aggressive medical treatment. Thank you, Dr. Coffman, for providing us the opportunity in taking care of the patient. In between, we will resume aspirin, Plavix, sildenafil, and clonidine p.r.n. clonidine as well as hydralazine p.r.n. We will follow with you. Pj Ontiveros MD cc: [id number] TT: 01/20/2017 10:24:02 Confirmation # [id number] Dictation # [id number] tn MTDD
[2017-01-20 11:19] LABS: ADD MANUAL DIFF? NO
[2017-01-20 11:22] LABS: BASO # 0.02 K/mm3 (0.0-2.0); BASO % 0.2 % (0.0-3.0); EOS % 0.3 % (1.5-5.0); GRAN # 7.37 (1.4-6.5); GRAN % 83.1 % (50.0-68.0); HEMATOCRIT 30.3 % (36.0-48.0); LYMPH # 0.8 (1.2-3.4); LYMPH % 8.8 % (22.0-35.0); MEAN CORPUSCULAR HEMOGLOBIN 30.1 pg (25.0-35.0); MEAN CORPUSCULAR HGB CONC 31.7 g/dl (31.0-37.0); MEAN PLATELET VOLUME 9.8 fl (7.0-11.0); MONO # 0.7 (0.1-0.6); MONO % 7.6 % (1.0-6.0); PLATELET COUNT 227 10^3/uL (120.0-450.0); WHITE BLOOD COUNT 8.9 10^3/ul (4.5-11.0)
--- NOTE | 2017-01-20 11:27 | CON ---
DATE: 01/20/2017 ADDENDUM to the initial consult. REASON FOR ADDENDUM: Information obtained from [facility] reviewed. Found to be patient had a cardiac catheterization 01/12/2017 at [facility] by Dr. Dieter Fung. Initially, the approach was right femoral but unable to advance the wire , so left radial approach was done and access was obtained, and then subsequently PTCA of obtuse marginal 1 (OM1) was done. Found to have 70-80% stenosis with reduction of stenosis from 70-80% to 0 with a drug-eluting stent, Resolute 3 mm in diameter and 12 mm in length was deployed, when the patient presented there with a non-STEMI, and then the patient was discharged home on . No further records were transmitted to us. So, will continue plan. PLAN: Continue aspirin and Plavix. Will repeat echo to assess LV function and follow up serial CPK, troponin. Most likely this troponin is secondary to non- STEMI lingering on secondary to end-stage renal disease, but we will monitor the trend. If the trend remains stable, flat or down, will not proceeded any invasive workup; but, if the trend keeps on mountingfor troponin, then may consider cardiac catheterization, depending upon the hospital course. Will follow with you. Thank you, Dr. Coffman, for providing us the opportunity in taking care of this patient. Pj Ontiveros MD cc: [id number] TT: 01/20/2017 11:27:08 Confirmation # [id number] Dictation # [id number] dago RICHARDS
[2017-01-20 11:31] LABS: ALB/GLOB RATIO 1.5 (1.1-1.8); BILIRUBIN,TOTAL 0.7 mg/dL (0.2-1.3); CALCIUM 9.2 mg/dL (8.4-10.5); MAGNESIUM 2.1 mg/dL (1.7-2.2); PHOSPHOROUS 7.1 mg/dL (2.5-4.5); POTASSIUM 4.3 mmol/L (3.6-5.0); TOTAL PROTEIN 7.2 g/dL (5.8-8.3)
[2017-01-20] MEDS: Nitroglycerin 2% Ointment Foilpak UD TOP SCH ×3 (11:40→22:07)
[2017-01-20] MEDS: Sildenafil 20 MG TAB PO SCH ×3 (11:40→18:11)
[2017-01-20 12:20] LABS: TROPONIN I 0.14 ng/mL
--- NOTE | 2017-01-20 12:44 | HP ---
HISTORY OF PRESENT ILLNESS: The patient is a 56-year-old, came to Emergency Room because of chest pa in. She started to have vomiting yesterday afternoon, then developed chest discomfort. She also has headaches so she came to Emergency Room for further evaluation. The patient had chest pain when she was in [place] visiting her daughter. She was taken to [facility] where she had angiop lasty for obtuse marginal artery. She has been on Plavix and aspirin since then, although she was on these medications prior to the angioplasty also. No history of fever or chills. No hemoptysis, no hematemesis. PAST MEDICAL HISTORY: Significant for: 1. Uncontrolled hypertension. 2. End-stage renal disease, on hemodialysis. 3. Severe peripheral vascular disease. 4. Recent PA requiring angioplasty of obtuse marginal. 5. Right carotid angioplasty last year. 6. History of pulmonary hypertension. 7. COPD. Active smoker up until last year. 8. Peptic ulcer disease. 9. Chronic constipation. ALLERGIES: SHE IS ALLERGIC TO CIPRO, HYDRALAZINE, VANCOMYCIN, AND CONTRAST DYE. SOCIAL HISTORY: She is single, lives with her son. Denies smoking or drinking. She occasionally sm okes 2-3 cigarettes a day, but she was a heavy smoker in the past. PHYSICAL EXAMINATION: GENERAL: She is awake and alert, communicative. VITAL SIGNS: She is afebrile, pulse 89, respirations 19, blood pressure 200/100. LUNGS: Bilateral fair airflow, no rhonchi or crackle. HEART: S1, S2 audible. No murmur. ABDOMEN: Soft, nontender, no rebound, no guarding. NEUROLOGIC: She is awake and alert, communicative. Moves all extremities. LABORATORY EXAMINATION: Her WBC is 8.9, hemoglobin 9.6, hematocrit 30, platelet of 227. Chemistry: Sodium 138, potassium 4.3, chloride 97, CO2 of 25, BUN 66, creatinine 6.7, blood sugar of 123. Firs t troponin 0.13. ASSESSMENT: 1. Chest pain. 2. Uncontrolled hypertension. 3. End-stage renal disease, on hemodialysis. 4. Peptic ulcer disease. 5. Hyperkalemia. PLAN: The patient is receiving hemodialysis. We will reevaluate after dialysis. If she is stable, she might be discharged either today or tomorrow. I will discuss with Dr. Ontiveros also. Brittany Coffman MD cc: [phone] TT: 01/20/2017 12:44:12 tn
--- NOTE | 2017-01-20 14:34 | CON ---
DATE: 01/20/2017 The patient admitted for Dr. Coffman. REFERRING PHYSICIAN: Dr. Coffman. REASON FOR CONSULTATION: To provide dialysis services for a patient admitted with chest pain. HISTORY OF PRESENT ILLNESS: The patient is a 56-year-old white female well known to us from past luation and from outpatient dialysis. The patient has a history of end-stage renal disease, on chron ic maintenance dialysis. The patient is currently dialyzing at [facility] on Tuesdays, and Saturdays. History of hypertension, difficult to control; history of peripheral vascula r disease, status post right carotid artery angioplasty; history of ASHD. The patient states she is status post a recent NM over the weekend at [facility]; she is status post PTCA and s tent. The patient has COPD, past history of cigarette smoking, quit recently; history of pulmonary h ypertension, history of GERD and history of anemia. History of secondary hyperparathyroidism. The p atient presented to the Emergency Room complaining of chest pain. The patient went up for dialysis f or her routine dialysis. Toward the end of dialysis, she had chest pain and her dialysis treatment w as shortened. She is currently seen on telemetry. She no longer has any chest pain. She feels comf ortable. PAST MEDICAL HISTORY: Significant for ESRD, hypertension, peripheral vascular disease, ASHD, COPD, p ulmonary hypertension, gastroesophageal reflux disease, anemia, and secondary hyperparathyroidism. MEDICATIONS: At home include that of clonidine, Revatio, Renagel, Zofran, Lopressor, Synthroid, Pepc id, Plavix, Sensipar, Norvasc, and Xanax. ALLERGIES: THE PATIENT IS ALLERGIC TO CIPROFLOXACIN, HYDRALAZINE, VANCOMYCIN AND CT DYE. MEDICATIONS: Presently in hospital include that of clonidine, Ecotrin, Lopressor, nitroglycerin oint ment, Norvasc, Plavix, Revatio, Sensipar, Synthroid, Tylenol, and Xanax. SOCIAL HISTORY: No history of alcohol use. History of cigarette smoking. The patient smokes less t betancur half a pack per day. She states that she has recently stopped cigarette smoking. FAMILY HISTORY: Noncontributory and as per all charts. REVIEW OF SYSTEMS: Ten point systems reviewed with the patient, all negative except for what is note d above. PHYSICAL EXAMINATION: GENERAL: The patient is currently seen sitting up in bed on telemetry. She appears to be in no acut e distress. She has just completed a shortened dialysis. VITAL SIGNS: Blood pressure presently 200/100. Heart rate is 89, temperature 98.1 with a respirator y rate of 19. HEENT: Shows her to be normocephalic, atraumatic. Conjunctivae are pale. Sclerae are nonicteric. Posterior pharynx is normal. NECK: Supple. No neck vein distention. No thyromegaly, no lymphadenopathy, no bruits. CHEST: Clear to auscultation and percussion. No rales, no rhonchi, no wheezing. Positive PermCath, right chest wall. CARDIOVASCULAR: Shows a regular rate and rhythm with a holosystolic murmur left lower sternal border . No S3, no S4, no rub. ABDOMEN: Soft. Bowel sounds are normal. No rebound, no guarding, no masses. EXTREMITIES: Show an absent thrill and bruit over her right upper extremity AV access. No lower ext remity cyanosis, clubbing or edema. Distal lower extremity pulses are 1 to 2+ bilaterally. NEUROLOGIC: Shows her to be alert, oriented x 3 with no gross focal motor or sensory deficits noted. LABORATORY DATA AND IMAGING: Admitting chest x-ray shows no acute pulmonary disease. CBC on admissi on shows a white blood cell count of 8.9 (down from 18.1), hemoglobin 10.4, now 9.6. Platelet count is 227,000. Coags are normal. Chemistries: Sodium 5.6 prior to dialysis, now 4.3. Electrolytes ar e otherwise okay. BUN 66 with a creatinine of 6.7 consistent with ESRD. Glucose is 123, calcium is 9.2 with a phosphorus level of 7.1. Liver enzymes: Mild elevation of ALT at 59, alkaline phosphatas e is 215. Troponin mildly elevated at 0.13 and 0.14. Albumin is 4.3. ASSESSMENT: 1. End-stage renal disease. The patient will continue routine 3 times a week dialysis - Thursday, , Thursday. 2. Chest pain. The patient is status post a recent myocardial infarction as per chart from [facility] and as per patient. She is status post angioplasty and stent placement according to patient. The artery involved was the obtuse marginal. The patient currently re-presents with dari st pain. She is being evaluated by cardiology. At present, she has no chest pain. 3. Hypertension. The patient must be restarted back on her antihypertensive regimen. The patient r outinely maintains high blood pressures. 4. History of chronic obstructive pulmonary disease secondary to cigarette smoking. The patient hardeep l continue medication inhalation therapy. 5. History of pulmonary hypertension. The patient will continue Revatio. 6. History of gastroesophageal reflux disease. The patient to be restarted on protein pump inhibiti on therapy as necessary and indicated. 7. History of anemia secondary to chronic kidney disease. The patient will continue receiving Arane sp per protocol. 8. History of secondary hyperparathyroidism. The patient to be restarted back on binder therapy. T he patient had been using Renagel 1600 mg or 2 tablets 3-4 times a day. She will also continue using Sensipar for an elevated PTH level. PLAN: 1. The patient received almost a complete dialysis treatment today. I believe it would be safe not to do an extra dialysis treatment tomorrow. 2. Cardiology evaluation in progress. 3. Continue nitrates, beta mino therapy and Plavix. 4. Continue Aranesp for her anemia secondary to chronic kidney disease. 5. Continue a renal diet. 6. Continue blood pressure medication, even on dialysis days. Thank you for letting me partake and share in the care of our mutual patient. Sampson Hutchins MD cc: [id number] TT: 01/20/2017 14:33:34 Confirmation # [id number] Dictation # [id number] mn
[2017-01-20 21:50] LABS: TROPONIN I 0.14 ng/mL
--- NOTE | 2017-01-20 22:58 | CARD ---
APPROVED REPORT EKG Measurement Heart [id number] MN [id number] <Conclusion> Normal sinus rhythm Possible Left atrial enlargement Left ventricular hypertrophy with repolarization abnormality Abnormal ECG
[2017-01-21] MEDS: Nitroglycerin 2% Ointment Foilpak UD TOP SCH ×2 (04:30→09:12)
[2017-01-21 04:39] VITALS: RESP 20
[2017-01-21 06:16] VITALS: O2SAT 97
[2017-01-21 07:26] LABS: TROPONIN I 0.14 ng/mL
[2017-01-21 07:31] LABS: ADD MANUAL DIFF? NO; BASO # 0.02 K/mm3 (0.0-2.0); BASO % 0.3 % (0.0-3.0); EOS # 0.2 (0.0-0.7); EOS % 2.6 % (1.5-5.0); GRAN # 5.87 (1.4-6.5); HEMATOCRIT 28.9 % (36.0-48.0); LYMPH # 1.3 (1.2-3.4); MEAN CELL VOLUME 94.8 fL (80.0-105.0); MEAN CORPUSCULAR HEMOGLOBIN 29.5 pg (25.0-35.0); MEAN CORPUSCULAR HGB CONC 31.1 g/dl (31.0-37.0); MEAN PLATELET VOLUME 10.6 fl (7.0-11.0); MONO # 0.6 (0.1-0.6); MONO % 7.1 % (1.0-6.0); PLATELET COUNT 265 10^3/uL (120.0-450.0); RED CELL DISTRIBUTION WIDTH 15.2 % (11.5-14.5); WHITE BLOOD COUNT 7.9 10^3/ul (4.5-11.0)
[2017-01-21 09:02] LABS: ALB/GLOB RATIO 1.4 (1.1-1.8); BILIRUBIN,TOTAL 0.6 mg/dL (0.2-1.3); CALCIUM 9.2 mg/dL (8.4-10.5); MAGNESIUM 2.1 mg/dL (1.7-2.2); POTASSIUM 4.7 mmol/L (3.6-5.0); TOTAL PROTEIN 6.9 g/dL (5.8-8.3)
[2017-01-21] MEDS: Sildenafil 20 MG TAB PO SCH (09:02)
[2017-01-21] MEDS: Levothyroxine 75 MCG TAB PO SCH (09:02)
--- NOTE | 2017-01-21 10:12 | PN ---
DATE: 01/21/2017 REASON FOR CONSULTATION AND FOLLOWUP: Chest pain, positive troponin, history of recent PA, status po st angioplasty a week ago [facility]. BRIEF CLINICAL HISTORY: This is a 56-year-old female with extensive medical history, history of PAD, right SFA totally occluded, history of carotid artery stenting 2 months ago, who was recently admitt ed to the [facility] where the patient underwent left heart cath and stenting o f obtuse marginal 1 with a drug-eluting stent. Resolute 3 mm in diameter, 12 mm length was deployed in obtuse marginal 1 with reduction of stenosis 70-80% to 0. The patient presented there with non-ST ADAN last weekend and had angioplasty on Thursday and was discharged home on ; yesterday admitte d with uncontrolled hypertension, chest pain and vomiting. Troponin 0.14, probably secondary to end- stage renal disease and continuation of the last non-STEMI. No further bump in troponin noted. Ches t pain improved, but still patient feels nauseous. PHYSICAL EXAMINATION: VITAL SIGNS: Temperature afebrile, heart rate 84, blood pressure 131/63. HEENT: PERRLA. Extraocular muscles intact. NECK: Supple. No carotid bruits. No thyromegaly. CHEST: Clear to auscultation. HEART: S1, S2 regular. ABDOMEN: Soft. EXTREMITIES: Clubbing and cyanosis negative. LABORATORY DATA: Blood workup as follows: WBC 7.9, hemoglobin 9, hematocrit 28.9, platelet count 26 5. Chemistry shows sodium 130, potassium 4.7, chloride 90, carbon dioxide 23, anion gap of 22, BUN 6 1, creatinine 7.4. Troponin 0.13, 0.14, 0.14, 0.14. IMPRESSION: No evidence of acute coronary syndrome. No evidence of myocardial infarction repeat. T he positive troponin is secondary to end-stage renal disease and previous stenting and non-ST elevati on myocardial infarction. Chest pain resolved. Still, the patient is nauseous. History of mesenter ic angiogram in the past for superior mesenteric artery, no occlusion noted in the catheterization an d angiogram, history of right carotid artery stenting in October in [facility], severe periph eral arterial disease, right superficial femoral artery occluded, end-stage renal disease, diabetes, hypertension, hyperlipidemia. RECOMMENDATION: Continue aspirin, continue Plavix, continue dialysis. Continue low-dose beta-blocke r. Continue Revatio for pulmonary hypertension. Continue Levoxyl, metoprolol, nitroglycerin started . We will change to Imdur 60 once a day as according to the patient one artery with 50% blockage the re. We did not get any detailed cath report, but sketchy laborer powerhouse data noted, ____ information obtai juan a. Thank you, Dr. Coffman, for providing the opportunity in taking care of the patient. Medical treatme nt. When stable, patient would be okay to be discharged and no further cardiac workup is planned at this time. Pj Ontiveros MD cc:Brittany Coffman MD [phone] TT: 01/21/2017 10:11:20 Confirmation # [id number] Dictation # [id number] tn
[2017-01-21 13:09] VITALS: BP 120/67; PULSE 63; TEMP 98.5
--- NOTE | 2017-01-21 16:24 | CARD ---
APPROVED REPORT EKG Measurement Heart [id number] [place] [id number] <Conclusion> Normal sinus rhythm Possible Left atrial enlargement Left ventricular hypertrophy with repolarization abnormality Abnormal ECG
--- NOTE | 2017-01-21 20:29 | CARD ---
APPROVED REPORT EXAM: Two-dimensional and M-mode echocardiogram with Doppler and color Doppler. INDICATION Cardiac Disease: CAD 2D DIMENSIONS Left Atrium (2D)3.4 (1.6-4.0cm)IVSd1.7 (0.7-1.1cm) LVDd3.7 (3.9-5.9cm)PWd1.8 (0.7-1.1cm) LVDs2.3 (2.5-4.0cm)FS (%) 37.3 % LVEF (%)68.1 (>50%) M-Mode DIMENSIONS Aortic Root2.90 (2.2-3.7cm)Aortic Cusp Exc.1.00 (1.5-2.0cm) Aortic Valve AoV Peak Cvmouzkj298.0cm/Kimberly Peak GR.16mmHg Mitral Valve MV E Mbajfcwh81.9cm/sMV A Krijyssa676.0cm/sE/A ratio0.6 TDI E/Lateral E'0.0E/Medial E'0.0 Tricuspid Valve TR Peak Nzojuusp188wt/sRAP BOJROCYW75jhRaBE Peak Gr.11mmHg [id number] LEFT VENTRICLE The left ventricle is normal size. There is moderate to severe concentric left ventricular hypertrophy. The left ventricular function is normal.EF-60-65% There is normal LV segmental wall motion. Transmitral Doppler flow pattern is Grade III-reversible restrictive diastolic dysfunction. No left ventricle thrombus noted on this study. There is no ventricular septal defect visualized. There is no left ventricular aneurysm. There is no mass noted in the left ventricle. RIGHT VENTRICLE The right ventricle is normal size. There is normal right ventricular wall thickness. The right ventricular systolic function is normal. ATRIA The left atrium is mildly dilated, in long axis. The right atrium is borderline dilated. The interatrial septum is intact with no evidence for an atrial septal defect. AORTIC VALVE The aortic valve is thickened but opens well. There is mild aortic regurgitation. Aortic Sclerosis Vs Mild As There is no aortic valvular vegetation. MITRAL VALVE The mitral valve is calcified but opens well. Mitral annular calcification is moderate. Mitral regurgitation is mild. There is no mitral valve stenosis. There is no evidence of mitral valve prolapse. TRICUSPID VALVE The tricuspid valve leaflets are thickened , but open well. There is mild tricuspid regurgitation.RVSP-21 mmof hg. There is no tricuspid valve stenosis. There is no tricuspid valve prolapse or vegetation. PULMONIC VALVE The pulmonic valve is mildly thickened. There is mild to moderate pulmonic valvular regurgitation. There is no pulmonic valvular stenosis. GREAT VESSELS The aortic root is normal in size. The ascending aorta is normal in size. The pulmonary artery is normal. The IVC is normal in size and collapses >50% with inspiration. PERICARDIAL EFFUSION There is no pleural effusion. There is no pericardial effusion. <Conclusion> The left ventricle is normal size. There is moderate to severe concentric left ventricular hypertrophy. The left ventricular function is normal.EF-60-65% There is mild aortic regurgitation. Aortic Sclerosis Vs Mild As Mitral regurgitation is mild. There is mild tricuspid regurgitation.RVSP-21 mmof hg. There is mild to moderate pulmonic valvular regurgitation. The IVC is normal in size and collapses >50% with inspiration. There is no pericardial effusion.
--- NOTE | 2017-01-23 08:18 | DS ---
HISTORY OF PRESENT ILLNESS: The patient is a 56-year-old patient seen and examined. She was admitted with chest pain. Prior to this admission, she was admitted in , where she underwent cardiac ca theterization and had an obtuse marginal artery angioplasty done. The patient was seen and examined, doing well. Still feels nauseous. PHYSICAL EXAMINATION: VITAL SIGNS: She is afebrile, pulse 84, respirations 20, blood pressure 151/63. LUNGS: Bilateral good airflow, no rhonchi or crackle. HEART: S1, S2 audible. ABDOMEN: Soft, nontender, no rebound, no guarding. NEUROLOGIC: She is awake and alert, communicative, ambulatory. LABORATORY EXAM: WBC 7.9, hemoglobin 9, hematocrit 28.9, platelet 265. Chemistry: Sodium 138, pota ssium 4.7, chloride 98, CO2 23, BUN 61, creatinine 7.4. Blood sugar of 83. ASSESSMENT: 1. Chest pain, probably noncardiac. 2. Gastritis . 3. Hypertension. 4. End-stage renal disease, on hemodialysis. 5. History of pulmonary hypertension. 6. Hypothyroidism. PLAN: We will continue patient on current medication, including clonidine, aspirin, isosorbide, meto prolol 100 b.i.d., amlodipine 10 mg daily and Flagyl 575 daily. She is on b.i.d., levothyroxi ne 75 mcg daily. The patient will be discharged today. She will resume all her medication. She hardeep l follow up as scheduled for hemodialysis. She will follow up in office in a week or two. Brittany Coffman MD cc: [phone] TT: 01/21/2017 21:30:11 ln 01/22/2017 06:40:52
== END 2017-01-21 13:45 | disposition home or self-care (01) ==
LOC: ED 23:57 → ERH 01-20 04:18 → 2RSO 01-20 07:37
PROVIDERS: ADMIT Internal Medicine; ATTEND Internal Medicine
DX: R07.9 Chest pain, unspecified (principal); I25.10 Atherosclerotic heart disease of native coronary artery without angina pectoris; N18.6 End stage renal disease; Z99.2 Dependence on renal dialysis; I13.2 Hypertensive heart and chronic kidney disease with heart failure and with stage 5 chronic kidney disease, or end stage renal disease; I21.3 ST elevation (STEMI) myocardial infarction of unspecified site; K29.70 Gastritis, unspecified, without bleeding; J44.9 Chronic obstructive pulmonary disease, unspecified; E03.9 Hypothyroidism, unspecified; K59.09 Other constipation; I27.2 Other secondary pulmonary hypertension; N25.81 Secondary hyperparathyroidism of renal origin; E87.5 Hyperkalemia; I73.9 Peripheral vascular disease, unspecified; D63.1 Anemia in chronic kidney disease; I50.9 Heart failure, unspecified; I08.1 Rheumatic disorders of both mitral and tricuspid valves; K21.9 Gastro-esophageal reflux disease without esophagitis; K27.9 Peptic ulcer, site unspecified, unspecified as acute or chronic, without hemorrhage or perforation; F17.210 Nicotine dependence, cigarettes, uncomplicated; Z95.5 Presence of coronary angioplasty implant and graft
CPT/HCPCS: 36415; 71010; 80053; 80061; 82550; 83036; 83615; 83735; 84100; 84443; 84484; 85025; 93005; 93306; 96374; 96375; 96376; 99285; G0378; J1170; J2405

== ENCOUNTER 2017-01-29 08:50 | Emergency (ER) | payer MEDICARE, OTHER ==
[2017-01-29 08:59] VITALS: BMI 25.8
--- NOTE | 2017-01-29 09:20 | ED PDOC ---
Arrival/HPI - General Chief Complaint: Chest Pain Time Seen by Provider: 01/29/17 09:01 Historian: Patient - History of Present Illness Narrative History of Present Illness (Text): 01/29/17 09:21 A 56 year old female, whose past medical history includes uncontrolled hypertension, COPD, peripheral vascular disease, CAD, MN recently with stent, right coratid angioplasty and ESRD (on dialysis T, Thurs, Sat), presents to the emergency department complaining of chest pain that developed while in outpatient dialysis in [facility] Patient also reported felt bugs crawling over her. those s ymptoms have resolved while in the ER now. Patient notes quit smoking a year ago. Patient was given nitro and tylenol because pain reproducible. Patient was given partial dialysis treatment prior to arrival (1.7 L). Patient denies any shortness of breath or any other complaints at this time. PMD: Dr. Coffman 01/29/17 17:26 Time/Duration: Prior to Arrival Symptom Onset: Sudden Symptom Course: Unchanged Activities at Onset: Rest Context: Other (dialysis [facility]) Past Medical History - Provider Review Nursing Documentation Reviewed: Yes - Infectious Disease Hx of Infectious Diseases: None - Tetanus Immunization Tetanus Immunization: Unknown - Cardiac Hx Cardiac Disorders: Yes (mi, cardiomyopathy,cad,dvt) Hx Congestive Heart Failure: Yes Hx MN: Yes Hx Hypertension: Yes - Pulmonary Hx Respiratory Disorders: Yes Hx Chronic Obstructive Pulmonary Disease (COPD): Yes - Neurological Hx Neurological Disorder: Yes Hx Dizziness: Yes Hx Migraine: Yes - HEENT Hx HEENT Disorder: Yes (tinnitus, hearing loss right ear) - Renal Hx Renal Disorder: Yes Hx Dialysis: Yes - Endocrine/Metabolic Hx Endocrine Disorders: Yes Hx Diabetes Mellitus Type 2: Yes Hx Hypothyroidism: Yes - Hematological/Oncological Hx Blood Disorders: Yes Hx Anemia: Yes (blood transfusion) - Integumentary Hx Dermatological Disorder: No - Musculoskeletal/Rheumatological Hx Musculoskeletal Disorders: Yes Hx Falls: Yes (past) - Gastrointestinal Hx Gastrointestinal Disorders: Yes (diverticulosis, hiatal hernia) Hx Diverticulitis: Yes Hx Gastroesophageal Reflux: Yes - Genitourinary/Gynecological Hx Genitourinary Disorders: Yes - Psychiatric Hx Psychophysiologic Disorder: Yes Hx Anxiety: Yes Hx Substance Use: No - Past Surgical History Past Surgical History: Unable to Obtain - Surgical History Hx Appendectomy: Yes Hx Cardiac Catheterization: Yes (08/26/12) Hx Coronary Stent: Yes Other/Comment: r arm avfistula no in use due to clot, pt has rcw hd catheter in use for hd, tonsillectomy, rcw udall in and out, thoracenthesis x2, c section - Anesthesia Hx Anesthesia: Yes Hx Anesthesia Reactions: No Hx Malignant Hyperthermia: No - Suicidal Assessment Feels Threatened In Home Enviroment: No Family/Social History - Physician Review Nursing Documentation Reviewed: Yes Family/Social History: No Known Family HX Smoking Status: Former Smoker Hx Alcohol Use: No Hx Substance Use: No Hx Substance Use Treatment: No Allergies/Home Meds Allergies/Adverse Reactions: Allergies ciprofloxacin Allergy (Verified 12/18/16 09:38) RASH hydralazine Allergy (Verified 12/18/16 09:38) RASH vancomycin Allergy (Verified 12/18/16 09:38) SHORTNESS OF BREATH ct dye Allergy (Uncoded 12/18/16 09:38) RASH Home Medications: Home Meds Medication Instructions Recorded Confirmed Cinacalcet [Sensipar] 30 mg PO DAILY 03/05/15 01/20/17 Sildenafil [Revatio] 20 mg PO DAILY 03/10/16 01/20/17 Metoprolol Tartrate [Lopressor] 100 mg PO BID 04/29/16 01/20/17 Sevelamer [Renagel] 1,600 mg PO QID 04/29/16 01/20/17 cloNIDine [Catapres] 0.2 mg PO TID 06/04/16 01/20/17 Review of Systems - Physician Review All systems were reviewed & negative as marked: Yes - Review of Systems Respiratory: absent: SOB Cardiovascular: Chest Pain Psychiatric: Anxiety, Depression, Suicidal Ideation (no homicidal ideation), Other (hallucinations) Physical Exam Vital Signs Reviewed: Yes Vital Signs Temp Pulse Resp BP Pulse Ox 01/29/17 14:57 98.7 F 76 22 189/76 H 100 01/29/17 08:58 98.1 F 75 18 141/65 99 Temperature: Afebrile Blood Pressure: Normal Pulse: Regular Respiratory Rate: Normal Appearance: Positive for: Well-Appearing, Non-Toxic, Comfortable Pain Distress: None Mental Status: Positive for: Alert and Oriented X 3 - Systems Exam Neck: Present: Normal Range of Motion Respiratory/Chest: Present: Clear to Auscultation, Good Air Exchange, Other ( hemodialysis catheter on R chest wall). No: Respiratory Distress, Accessory Muscle Use Cardiovascular: Present: Regular Rate and Rhythm, Normal S1, S2. No: Murmurs Abdomen: Present: Normal Bowel Sounds. No: Tenderness, Distention, Peritoneal Signs Neurological: Present: GCS=15, CN II-XII Intact, Speech Normal Skin: Present: Warm, Dry Psychiatric: Present: Alert, Oriented x 3, Normal Insight, Normal Concentration , Other (teary eyed) Medical Decision Making ED Course and Treatment: 01/29/17 09:10 Impression: A 56 year old female with chest pain that resolved. recent admission and stent for same Differential Diagnosis included but are not limited to: Plan: -- EKG -- chest xray -- Urinalysis -- labs -- nasal cannula -- Reassess and disposition Prior Visits: Notes and results from previous visits were reviewed. Patient last reported to the emergency department on 01/20/17 for evaluation of chest pain associated with nausea and vomiting. EKG showed NSR at 91 BPM, possible left atrial enlargement, left ventricular hypertrophy with repolarization abnormality. Patient was admitted under Dr. Coffman's service at telemetry. Patient discharged on 01/21/17. Progress Notes: Patient currently has resolved chest pain and denies hallucinations. EKG: LVH with T wave inversion, T AVL V5, no change compared with 01/21/17. Labs done upstairs. Potassium 3.2 and Creatinine 3.1. Will call Dr. Coffman to have patient admitted. chest xray: Creator : Akhil Lennon MD 01/29/2017 09:39 IMPRESSION: No active disease. 01/29/17 10:[address] Coffman. 01/29/17 11:[address] Coffman, who recommends to speak with Chef De Cuisine but from her perspective pt can be discharged home. Will call Dr. Ontiveros toy electric train repairer. 01/29/17 11:[address] Ontiveros, who recommends to repeat troponin (intial .05) in 2-3 hours. If patient feels better, will send home. 01/29/17 14:[address] Ontiveros, who agrees with plan to discharge patient. On re-evaluation, patient feels better and is in no acute distress. repeat troponin negatve and pt without symptoms. I have discussed the results and plan with the patient, who expresses understanding. Patient in agreement with plan to be discharged home. Patient is stable for discharge. Patient was instructed to follow up with physician or return if symptoms worsen or new concerning symptoms arise. 01/29/17 15:39 RNote, first troponin result is not in computer system but in paperwork faxed down during downtime. 01/29/17 17:27 - Lab Interpretations Lab Results: 01/29/17 13:00 Lab Results 01/29/17 13:00: Sodium 138, Potassium 4.3, Chloride 100, Carbon Dioxide 27, Anion Gap 15, BUN 30 H, Creatinine 4.5 H, Est GFR ( Amer) 12, Est GFR ( Non-Af Amer) 10, Random Glucose 87, Calcium 9.9, Total Bilirubin 0.4, AST 27, ALT 33, Alkaline Phosphatase 243 H, Lactate Dehydrogenase 511, Total Creatine Kinase 34 L, Troponin I 0.05, Total Protein 6.9, Albumin 4.1, Globulin 2.8, Albumin/Globulin Ratio 1.5 01/29/17 09:13: POC Glucose (mg/dL) 75 I have reviewed the lab results: Yes - RAD Interpretation Radiology Orders: 01/29/17 09:07 CHEST PORTABLE [RAD] Stat - EKG Interpretation Interpreted by ED Physician: Yes Type: 12 lead EKG - Scribe Statement The provider has reviewed the documentation as recorded by the Aaronibthais Carcamo Provider Scribe Attestation: All medical record entries made by the Scribe were at my direction and personally dictated by me. I have reviewed the chart and agree that the record accurately reflects my personal performance of the history, physical exam, medical decision making, and the department course for this patient. I have also personally directed, reviewed, and agree with the discharge instructions and disposition. Disposition/Present on Arrival - Present on Arrival Any Indicators Present on Arrival: No History of DVT/PE: No History of Uncontrolled Diabetes: No Urinary Catheter: No History Surgical Site Infection Following: None - Disposition Have Diagnosis and Disposition been Completed?: Yes Diagnosis: Chest wall pain Disposition: HOME/ ROUTINE Disposition Time: 11:00 Patient Plan: Discharge Condition: IMPROVED Discharge Instructions (ExitCare): Chest Wall Pain (ED) Additional Instructions: follow up with your primary doctor in 1-2 days return to the emergency department with any worsening or concerning symptoms Referrals: Brittany Coffman MD [Primary Care Provider] - Follow up with primary
--- NOTE | 2017-01-29 11:00 | RAD ---
HISTORY: chest pain COMPARISON: 01/20/2017 FINDINGS: LUNGS: No active pulmonary disease. PLEURA: No significant pleural effusion identified, no pneumothorax apparent. CARDIOVASCULAR: Mild cardiomegaly OSSEOUS STRUCTURES: No significant abnormalities. VISUALIZED UPPER ABDOMEN: Normal. OTHER FINDINGS: There is a dialysis catheter terminating in the right atrium IMPRESSION: No active disease.
--- NOTE | 2017-01-29 12:36 | CP.PCM.PN ---
Subjective - Date & Time of Evaluation Date of Evaluation: 01/29/17 Time of Evaluation: 12:25 - Subjective Subjective: 56 year old male with past medical history of CAD with stents, PVD, CHF, a fib and diverticulosis has rapid response called on patient in the renal dialysis unit. Rapid response was called for CP and visual hallucinations (seeing spiders on her). Patient was not oriented to place or time but knew her name. Vital sings when rapid was claled was 180/75, HR was 86. Patient was in the middle of getting dialysis and had about 1.7 L removed. Objective - Vital Signs/Intake and Output Vital Signs (last 24 hours): Temp Pulse Resp BP Pulse Ox 98.1 F 75 18 141/65 99 01/29/17 08:58 01/29/17 08:58 01/29/17 08:58 01/29/17 08:58 01/29/17 08:58 - Constitutional Appears: Non-toxic - Respiratory Exam Respiratory Exam: Clear to Ausculation Bilateral. absent: Rales, Rhonchi, Wheezes - Cardiovascular Exam Cardiovascular Exam: REGULAR RHYTHM, +S1, +S2 - GI/Abdominal Exam GI & Abdominal Exam: Soft. absent: Tenderness, Diminished Bowel Sounds - Neurological Exam Neurological Exam: Alert, Awake - Skin Skin Exam: Dry, Intact, Normal Color Assessment and Plan - Assessment and Plan (Free Text) Assessment: 56 year old female with past medical history of CAD, PVD, CHF, diverticulosis and a fib has rapid response called for chest pain. Patient was given Nitroglycerine and tylenol. Pain resolved after nitro. Repeat vitals after nitro were 129/68. EKG showed no new changes when compared to EKG from about 1 week ago. Patient was then transferred to ED. Case was discussed with house doctor, Dr. Bird Rankin.
[2017-01-29 14:40] LABS: ALB/GLOB RATIO 1.5 (1.1-1.8); BILIRUBIN,TOTAL 0.4 mg/dL (0.2-1.3); CALCIUM 9.9 mg/dL (8.4-10.5); POTASSIUM 4.3 mmol/L (3.6-5.0); TOTAL PROTEIN 6.9 g/dL (5.8-8.3)
[2017-01-29 14:50] LABS: TROPONIN I 0.05 ng/mL
[2017-01-29 14:58] VITALS: BP 189/76; PULSE 76; RESP 22; TEMP 98.7; O2SAT 100
--- NOTE | 2017-01-29 18:17 | CARD ---
APPROVED REPORT EKG Measurement Heart [id number] <Conclusion> Normal sinus rhythm Biatrial enlargement Left ventricular hypertrophy with repolarization abnormality Abnormal ECG
--- NOTE | 2017-01-29 18:20 | CARD ---
APPROVED REPORT EKG Measurement Heart [id number] <Conclusion> Normal sinus rhythm Biatrial enlargement Left ventricular hypertrophy with repolarization abnormality Abnormal ECG
== END 2017-01-29 15:52 | disposition home or self-care (01) ==
LOC: ED 08:50
DX: R07.89 Other chest pain (principal); I25.10 Atherosclerotic heart disease of native coronary artery without angina pectoris; I12.0 Hypertensive chronic kidney disease with stage 5 chronic kidney disease or end stage renal disease; N18.6 End stage renal disease; Z99.2 Dependence on renal dialysis; I73.9 Peripheral vascular disease, unspecified; Z87.891 Personal history of nicotine dependence

== ENCOUNTER 2017-03-12 08:49 | Observation (INO) | payer MEDICARE, OTHER ==
--- NOTE | 2017-03-12 09:31 | ED PDOC ---
Arrival/HPI - General Chief Complaint: Chest Pain Time Seen by Provider: 03/12/17 08:58 Historian: Patient - History of Present Illness Narrative History of Present Illness (Text): 03/12/17 09:06 A 56 year old female, whose past medical history includes uncontrolled hypertension, COPD, peripheral vascular disease, CAD with stent, AL, right coratid angioplasty and ESRD (on dialysis Tues, Thurs, Sat), presents to the emergency department complaining of chest pain with shortness of breath and dyspnea on exertion for the past 2 days. Pain is intermittent, worse with movement and radiates up to the neck. She notes a non productive cough by denies any fever or lower extremity swelling. Patient does mention having lower extremity pain but states this is baseline. She denies any other complaints at this time. Patient reports during her last cardiac cath she was told she does have another blockage in the heart and needs to get another stent. Patient states she did finish her dialysis today and took a 3245mg Aspirin today, along with her Plavix. Patient is also on Imdur. PMD : Dr. Coffman Pigment Mixer: Dr. Spear Time/Duration: Other (2 days) Symptom Onset: Sudden Symptom Course: Unchanged Quality: Other Activities at Onset: Rest Context: Home Past Medical History - Provider Review Nursing Documentation Reviewed: Yes - Infectious Disease Hx of Infectious Diseases: None - Tetanus Immunization Tetanus Immunization: Unknown - Cardiac Hx Cardiac Disorders: Yes (mi, cardiomyopathy,cad,dvt) Hx Congestive Heart Failure: Yes Hx AL: Yes Hx Hypertension: Yes - Pulmonary Hx Respiratory Disorders: Yes Hx Chronic Obstructive Pulmonary Disease (COPD): Yes - Neurological Hx Neurological Disorder: Yes Hx Dizziness: Yes Hx Migraine: Yes - HEENT Hx HEENT Disorder: Yes (tinnitus, hearing loss right ear) - Renal Hx Renal Disorder: Yes Hx Dialysis: Yes - Endocrine/Metabolic Hx Endocrine Disorders: Yes Hx Diabetes Mellitus Type 2: Yes Hx Hypothyroidism: Yes - Hematological/Oncological Hx Blood Disorders: Yes Hx Anemia: Yes (blood transfusion) - Integumentary Hx Dermatological Disorder: No - Musculoskeletal/Rheumatological Hx Musculoskeletal Disorders: Yes Hx Falls: Yes (past) - Gastrointestinal Hx Gastrointestinal Disorders: Yes (diverticulosis, hiatal hernia) Hx Diverticulitis: Yes Hx Gastroesophageal Reflux: Yes - Genitourinary/Gynecological Hx Genitourinary Disorders: Yes - Psychiatric Hx Psychophysiologic Disorder: Yes Hx Anxiety: Yes Hx Substance Use: No - Past Surgical History Past Surgical History: Unable to Obtain - Surgical History Hx Appendectomy: Yes Hx Cardiac Catheterization: Yes (08/26/12) Hx Coronary Stent: Yes Other/Comment: r arm avfistula no in use due to clot, pt has rcw hd catheter in use for hd, tonsillectomy, rcw udall in and out, thoracenthesis x2, c section - Anesthesia Hx Anesthesia: Yes Hx Anesthesia Reactions: No Hx Malignant Hyperthermia: No - Suicidal Assessment Feels Threatened In Home Enviroment: No Family/Social History - Physician Review Nursing Documentation Reviewed: Yes Family/Social History: Unknown Family HX Smoking Status: Former Smoker Hx Alcohol Use: No Hx Substance Use: No Hx Substance Use Treatment: No Allergies/Home Meds Allergies/Adverse Reactions: Allergies ciprofloxacin Allergy (Verified 03/12/17 08:53) RASH hydralazine Allergy (Verified 03/12/17 08:53) RASH vancomycin Allergy (Verified 03/12/17 08:53) SHORTNESS OF BREATH ct dye Allergy (Uncoded 03/12/17 08:53) RASH Home Medications: Home Meds Medication Instructions Recorded Confirmed Cinacalcet [Sensipar] 30 mg PO DAILY 03/05/15 03/12/17 Sildenafil [Revatio] 20 mg PO DAILY 03/10/16 03/12/17 Metoprolol Tartrate [Lopressor] 100 mg PO BID 04/29/16 03/12/17 Sevelamer [Renagel] 1,600 mg PO QID 04/29/16 03/12/17 cloNIDine [Catapres] 0.2 mg PO TID 06/04/16 03/12/17 Alprazolam [Xanax] 0.25 mg PO BID PRN 03/12/17 03/12/17 Aspirin [Aspirin EC] 325 mg PO DAILY 03/12/17 03/12/17 Review of Systems - Review of Systems Constitutional: absent: Fevers Eyes: absent: Vision Changes ENT: absent: Sinus Congestion Respiratory: SOB, Cough. absent: Sputum Cardiovascular: Chest Pain, MENDEZ Gastrointestinal: absent: Abdominal Pain Genitourinary Female: absent: Dysuria Musculoskeletal: Neck Pain. absent: Back Pain Skin: absent: Rash Neurological: absent: Headache, Dizziness Endocrine: absent: Polyuria Psychiatric: absent: Depression Physical Exam Vital Signs Reviewed: Yes Vital Signs Temp Pulse Resp BP Pulse Ox 03/12/17 12:06 68 16 188/73 H 100 03/12/17 12:03 98 F 68 16 227/95 H 03/12/17 11:13 98 F 68 16 227/95 H 100 03/12/17 11:12 68 227/95 H 03/12/17 10:34 67 16 205/94 H 100 Blood Pressure: Hypertensive Pulse: Regular Respiratory Rate: Normal Appearance: Positive for: Well-Appearing, Non-Toxic, Comfortable Pain Distress: None Mental Status: Positive for: Alert and Oriented X 3 - Systems Exam Head: Present: Atraumatic, Normocephalic Pupils: Present: PERRL Extroacular Muscles: Present: EOMI Conjunctiva: Present: Normal Mouth: Present: Moist Mucous Membranes Neck: Present: Normal Range of Motion Respiratory/Chest: Present: Clear to Auscultation. No: Good Air Exchange ( decrease air entry bilaterally), Respiratory Distress, Accessory Muscle Use Cardiovascular: Present: Regular Rate and Rhythm, Normal S1, S2. No: Murmurs Abdomen: Present: Normal Bowel Sounds. No: Tenderness, Distention, Peritoneal Signs Back: Present: Normal Inspection Upper Extremity: Present: Normal Inspection. No: Cyanosis, Edema Lower Extremity: Present: Normal Inspection. No: Edema Neurological: Present: GCS=15, CN II-XII Intact, Speech Normal Skin: Present: Warm, Dry, Normal Color. No: Rashes Psychiatric: Present: Alert, Oriented x 3, Normal Insight, Normal Concentration Medical Decision Making ED Course and Treatment: 03/12/17 09:06 Impression: A 56 year old female with chest pain. Known CAD. Took aspirin 324mg already today. Differential Diagnosis include but are not limited to: ACS vs. musculoskeletal Plan: -- EKG -- Chest X-ray -- Labs -- Reassess and disposition Prior Visits: Notes and results from previous visits were reviewed. The patient last presented to the emergency department on 01/29/17 for evlauation of chest pain that developed during dialysis. In 01/2017 the patient had a left cath with stenting at [facility]. Progress Notes: EKG: Ordered, reviewed, and independently interpreted the EKG. Rate : BPM Rhythm : NSR Interpretation : biatrial enlargement with LVH; repolarization changes. Comparison : No change from previous EKG on 01/29/17 for comparison. 03/12/17 09:37 Chest X-ray: Creator : Akhil Lennon MD COMPARISON: 01/29/2017 FINDINGS: LUNGS: No active pulmonary disease. PLEURA: No significant pleural effusion identified, no pneumothorax apparent. CARDIOVASCULAR: Mild cardiomegaly OSSEOUS STRUCTURES: No significant abnormalities. VISUALIZED UPPER ABDOMEN: Normal. OTHER FINDINGS: Right internal jugular dialysis catheter IMPRESSION: No active disease. 03/12/17 10:36 Patient has known CAD. Patient Troponin X1 is negative. BNP is elevated by likely due to renal failure. No clinical signs of CHF . Will admit patient to telemetry for observation. 03/12/17 11:[address] Coffman, who is aware and agrees with plan. She notes to called Dr. Spear. Dr. Rainer godoy. I have discussed the results and plan with the patient, who expresses understanding. Patient given the opportunity to ask question, all questions were answered and there is agreement with the plan to be admitted to the hospital. 03/12/17 11:[address] Ontiveros who is aware. Patient's poultry process worker also at bedside to jax. - Lab Interpretations Lab Results: 03/12/17 09:40 03/12/17 09:40 Lab Results 03/12/17 09:40: PT 11.1, INR 1.03, APTT 33.4 H 03/12/17 09:40: Sodium 137, Potassium 4.1, Chloride 98, Carbon Dioxide 27, Anion Gap 16, BUN 29 H, Creatinine 3.5 H, Est GFR ( Amer) 16, Est GFR ( Non-Af Amer) 14, Random Glucose 104, Calcium 9.2, Total Bilirubin 0.5, AST 26, ALT 32, Alkaline Phosphatase 185 H, Lactate Dehydrogenase 513, Total Creatine Kinase 46, Troponin I 0.07 D, NT-Pro-B Natriuret Pep 132552 H, Total Protein 6.4, Albumin 3.8, Globulin 2.6, Albumin/Globulin Ratio 1.5 03/12/17 09:40: WBC 7.2, RBC 3.70, Hgb 10.8 L, Hct 35.9 L, MCV 97.0, MCH 29.2, MCHC 30.1 L, RDW 15.6 H, Plt Count 223, MPV 10.5, Gran % 79.0 H, Lymph % (Auto) 11.3 L, [place] % (Auto) 6.4 H, Eos % (Auto) 2.9, Baso % (Auto) 0.4, Gran # 5.71, Lymph # 0.8 L, [place] # 0.5, Eos # 0.2, Baso # 0.03 I have reviewed the lab results: Yes - RAD Interpretation Radiology Orders: 03/12/17 09:10 CHEST PORTABLE [RAD] Stat - Medication Orders Current Medication Orders: Discontinued Medications Clonidine HCl (Catapres) 0.2 mg PO STAT STA Stop: 03/12/17 11:04 Last Admin: 03/12/17 11:12 Dose: 0.2 mg Ibuprofen (Motrin Tab) 400 mg PO STAT STA Stop: 03/12/17 12:06 Last Admin: 03/12/17 12:18 Dose: 400 mg Pneumococcal Polyvalent Vaccine (Pneumovax 23 Vaccine) 0.5 ml IM .ONCE ONE Stop: 03/12/17 12:16 - Scribe Statement The provider has reviewed the documentation as recorded by the Jayleen Fung Provider Scribe Attestation: All medical record entries made by the Aaronibthais were at my direction and personally dictated by me. I have reviewed the chart and agree that the record accurately reflects my personal performance of the history, physical exam, medical decision making, and the department course for this patient. I have also personally directed, reviewed, and agree with the discharge instructions and disposition. Disposition/Present on Arrival - Present on Arrival Any Indicators Present on Arrival: No History of DVT/PE: No History of Uncontrolled Diabetes: No Urinary Catheter: No History of Decub. Ulcer: No History Surgical Site Infection Following: None - Disposition Have Diagnosis and Disposition been Completed?: Yes Diagnosis: Chest pain Disposition: HOSPITALIZED Disposition Time: 09:10 Condition: FAIR
--- NOTE | 2017-03-12 09:36 | RAD ---
HISTORY: chest pain COMPARISON: 01/29/2017 FINDINGS: LUNGS: No active pulmonary disease. PLEURA: No significant pleural effusion identified, no pneumothorax apparent. CARDIOVASCULAR: Mild cardiomegaly OSSEOUS STRUCTURES: No significant abnormalities. VISUALIZED UPPER ABDOMEN: Normal. OTHER FINDINGS: Right internal jugular dialysis catheter IMPRESSION: No active disease.
[2017-03-12 10:04] LABS: BASO # 0.03 K/mm3 (0.0-2.0); BASO % 0.4 % (0.0-3.0); EOS # 0.2 (0.0-0.7); EOS % 2.9 % (1.5-5.0); GRAN # 5.71 (1.4-6.5); HEMOGLOBIN 10.8 gm/dL (12.0-16.0); LYMPH # 0.8 (1.2-3.4); LYMPH % 11.3 % (22.0-35.0); MEAN CORPUSCULAR HEMOGLOBIN 29.2 pg (25.0-35.0); MEAN CORPUSCULAR HGB CONC 30.1 g/dl (31.0-37.0); MEAN PLATELET VOLUME 10.5 fl (7.0-11.0); MONO # 0.5 (0.1-0.6); MONO % 6.4 % (1.0-6.0); PLATELET COUNT 223 10^3/uL (120.0-450.0); RED CELL DISTRIBUTION WIDTH 15.6 % (11.5-14.5); WHITE BLOOD COUNT 7.2 10^3/ul (4.5-11.0)
[2017-03-12 10:08] LABS: INR 1.03 (0.93-1.08); PARTIAL THROMBOPLASTIN TIME 33.4 Seconds (23.7-30.8); PROTHROMBIN TIME 11.1 Seconds (9.9-11.8)
[2017-03-12 10:20] LABS: TROPONIN I 0.07 ng/mL
[2017-03-12 10:29] LABS: ALB/GLOB RATIO 1.5 (1.1-1.8); ALBUMIN 3.8 g/dL (3.0-4.8); CALCIUM 9.2 mg/dL (8.4-10.5)
[2017-03-12 12:14] VITALS: BMI 25.3
[2017-03-12] MEDS ORDERED: Pneumococcal 23-Valent Vaccine IM ONE (12:15)
[2017-03-12] MEDS ORDERED: Oxycodone/Acetaminophen 5/325 mg Tab PO STA (16:34)
[2017-03-12] MEDS ORDERED: Oxycodone/Acetaminophen 5/325 mg Tab PO PRN (17:17)
[2017-03-12] MEDS: Aspirin 325 mg EC Tablets PO SCH (17:36)
[2017-03-12] MEDS: Sildenafil 20 MG TAB PO SCH (17:37)
[2017-03-12] MEDS: Levothyroxine 75 MCG TAB PO SCH (17:38)
[2017-03-12 19:02] LABS: TROPONIN I 0.07 ng/mL
[2017-03-13 05:49] VITALS: O2SAT 97
[2017-03-13] MEDS ORDERED: Pantoprazole 40 mg EC Tab PO SCH (06:30)
[2017-03-13 07:40] LABS: FREE T4 0.94 ng/dL (0.78-2.19)
[2017-03-13 08:14] LABS: TROPONIN I 0.07 ng/mL
--- NOTE | 2017-03-13 09:04 | CP.PCM.CON ---
History of Present Illness - History of Present Illness History of Present Illness: Reason for cosultation>> chest pain 56 year old femal Hx of CAD, S/p NSTEMI, Hx of PTCA of OM1 at [facility] on 01/12/2017 with NIKUNJ 3.0/[address] Dieter Fung when pt presented with NSTEMI at [facility], while visiting her Grand daughter there[place] to [facility] [place] [facility] for LHC/ PTCA who admitted through ER after dialysis for Eval of chest pain for 2-3 days off and on , Not sure was it a GERD, also was associated with SOB .. for one week duration. No chest pain now and SOB also has improved. PMHX CAD. NSTEMI as Above PTCA OM1 with NIKUNJ on 01/12/2017 PAD S/p R SFA occluded S/p mesentricc angiogram >.. Negative no mesetric artery stenosis [facility] conrt[facility]ed [facility]N. ESRd on HD times three /week T2DM Hpperlidemia Last Echo... 01/11/2017 EF-60-65% Mild MR/TR/AR Mild to moderate PI RVSP-21 mmof HG. Review of Systems - Constitutional Constitutional: As Per HPI - EENT Eyes: As Per HPI Ears: As Per HPI - Breasts Breasts: As Per HPI - Cardiovascular Cardiovascular: Chest Pain Additional comments: Chest pain soft off and on 2-3 days - Respiratory Respiratory: Dyspnea Additional comments: Off and on for one week Past Patient History - Infectious Disease Hx of Infectious Diseases: None - Tetanus Immunizations Tetanus Immunization: Unknown - Past Social History Smoking Status: Former Smoker - CARDIAC Hx Cardiac Disorders: Yes (mi, cardiomyopathy,cad,dvt) Hx Congestive Heart Failure: Yes Hx Heart Attack: Yes Hx Hypertension: Yes - PULMONARY Hx Respiratory Disorders: Yes Hx Chronic Obstructive Pulmonary Disease (COPD): Yes - NEUROLOGICAL Hx Neurological Disorder: Yes Hx Dizziness: Yes Hx Migraine: Yes - HEENT Hx HEENT Problems: Yes (tinnitus, hearing loss right ear) - RENAL Hx Chronic Kidney Disease: Yes Hx Dialysis: Yes - ENDOCRINE/METABOLIC Hx Endocrine Disorders: Yes Hx Diabetes Mellitus Type 2: Yes Hx Hypothyroidism: Yes - HEMATOLOGICAL/ONCOLOGICAL Hx Blood Disorders: Yes Hx Anemia: Yes (blood transfusion) - INTEGUMENTARY Hx Dermatological Problems: No - MUSCULOSKELETAL/RHEUMATOLOGICAL Hx Musculoskeletal Disorders: Yes Hx Falls: Yes (past) - GASTROINTESTINAL Hx Gastrointestinal Disorders: Yes (diverticulosis, hiatal hernia) Hx Diverticulitis: Yes Hx Gastroesophageal Reflux: Yes - GENITOURINARY/GYNECOLOGICAL Hx Genitourinary Disorders: Yes - PSYCHIATRIC Hx Psychophysiologic Disorder: Yes Hx Anxiety: Yes Hx Substance Use: No - SURGICAL HISTORY Hx Appendectomy: Yes Hx Cardiac Catheterization: Yes (08/26/12) Hx Coronary Stent: Yes Other/Comment: r arm avfistula no in use due to clot, pt has rcw hd catheter in use for hd, tonsillectomy, rcw udall in and out, thoracenthesis x2, c section - ANESTHESIA Hx Anesthesia: Yes Hx Anesthesia Reactions: No Hx Malignant Hyperthermia: No Meds Allergies/Adverse Reactions: Allergies Allergy/AdvReac Type Severity Reaction Status Date / Time ciprofloxacin Allergy RASH Verified 03/12/17 08:53 hydralazine Allergy RASH Verified 03/12/17 08:53 vancomycin Allergy SHORTNESS Verified 03/12/17 08:[address] dye Allergy RASH Uncoded 03/12/17 08:53 - Medications Medications: Current Medications Alprazolam (Xanax) 0.25 mg PO BID PRN; Protocol PRN Reason: Anxiety Last Admin: 03/12/17 21:20 Dose: 0.25 mg Amlodipine Besylate (Norvasc) 10 mg PO DAILY [facility] Last Admin: 03/12/17 17:37 Dose: 10 mg Aspirin (Ecotrin) 325 mg PO DAILY [facility] Last Admin: 03/12/17 17:36 Dose: 325 mg Cinacalcet (Sensipar) 30 mg PO DAILY [facility] Last Admin: 03/12/17 17:37 Dose: 30 mg Clonidine HCl (Catapres) 0.2 mg PO TID [facility] Last Admin: 03/12/17 17:38 Dose: 0.2 mg Clopidogrel Bisulfate (Plavix) 75 mg PO DAILY [facility] Last Admin: 03/12/17 17:37 Dose: 75 mg Famotidine (Pepcid) 10 mg PO BID PRN PRN Reason: Pain, Mild (1-3) Levothyroxine Sodium (Synthroid) 75 mcg PO DAILY [facility] Last Admin: 03/12/17 17:38 Dose: 75 mcg Metoprolol Tartrate (Lopressor) 100 mg PO BID [facility] Last Admin: 03/12/17 17:38 Dose: 100 mg Ondansetron HCl (Zofran Inj) 4 mg IVP Q6H PRN PRN Reason: Nausea/Vomiting Oxycodone/Acetaminophen (Percocet 5/325 Mg Tab) 1 tab PO Q4H PRN PRN Reason: Pain, moderate (4-7) Stop: 03/15/17 17:18 Pantoprazole Sodium (Protonix Ec Tab) 40 mg PO 0630 [facility] Last Admin: 03/13/17 05:34 Dose: 40 mg Sevelamer HCl (Renagel) 1,600 mg PO 0800,1200,1700,2200 [facility] Last Admin: 03/12/17 21:15 Dose: 1,600 mg Sildenafil Citrate (Revatio) 20 mg PO DAILY [facility] Last Admin: 03/12/17 17:37 Dose: 20 mg Results - Vital Signs Recent Vital Signs: Last Vital Signs Temp 98.2 F 03/13/17 05:48 Pulse 69 03/13/17 05:48 Resp 20 03/13/17 05:48 BP 153/65 H 03/13/17 05:48 Pulse Ox 97 03/13/17 05:48 - Labs Result Diagrams: 03/12/17 09:40 03/12/17 09:40 Labs: Laboratory Results - last 24 hr 03/12/17 03/13/17 03/13/17 18:15 05:30 07:30 Lactate Dehydrogenase 506 Total Creatine Kinase 36 Troponin I 0.07 0.07 Triglycerides 169 H Cholesterol 120 L LDL Cholesterol Direct 58 HDL Cholesterol 27 L Free T4 0.94 TSH 3rd Generation 3.20 - Impressions Impression: NSR at 72 , Bi atrial enlargement, T inversion in V5-6, I, Avl, III, un changed from befoe. Assessment & Plan - Assessment and Plan (Free Text) Assessment: 56 year old Femal with extensive Cardiovascular diz, admitted with 2-3 days Hx of Off on chest pain though pt has high marisela for ischemic event but this episode is less likely Ischemic, But needs to R/o ischemias ESRD on HD Severe PAD. R SFa occluded S/p PTCA of R Carotid stenting S/p Nstemi , S/p PTCA of OM1 with Nikunj on 01/12/2017. T2 DM HTN hyperlipedemia recent Echo on Last admission Preserved LV Fx. EF-60-65% Mild MR/TR/AR. Plan: Resume Meds Add troponin for this AM. lipid profile, TSH if this am troponin remains Negative may dc Home will discuss with LOREN Mcdanielsx.
[2017-03-13] MEDS: Aspirin 325 mg EC Tablets PO SCH (09:22)
[2017-03-13] MEDS: Sildenafil 20 MG TAB PO SCH (09:24)
[2017-03-13] MEDS: Levothyroxine 75 MCG TAB PO SCH (09:44)
--- NOTE | 2017-03-13 10:04 | CARD ---
APPROVED REPORT EKG Measurement Heart [id number] SD 150P62 [id number] <Conclusion> Normal sinus rhythm Biatrial enlargement Left ventricular hypertrophy with repolarization abnormality Prolonged QTC No change
[2017-03-13 11:42] VITALS: BP 178/83; RESP 19; TEMP 98
[2017-03-13 14:44] VITALS: PULSE 63
== END 2017-03-13 14:55 | disposition home or self-care (01) ==
LOC: ED 08:49 → ERH 10:36 → 2RNO 13:05
PROVIDERS: ADMIT Internal Medicine; ATTEND Internal Medicine
DX: R07.9 Chest pain, unspecified (principal); I13.2 Hypertensive heart and chronic kidney disease with heart failure and with stage 5 chronic kidney disease, or end stage renal disease; I50.9 Heart failure, unspecified; N18.6 End stage renal disease; E11.22 Type 2 diabetes mellitus with diabetic chronic kidney disease; E78.5 Hyperlipidemia, unspecified; E11.51 Type 2 diabetes mellitus with diabetic peripheral angiopathy without gangrene; I25.2 Old myocardial infarction; Z95.5 Presence of coronary angioplasty implant and graft; Z99.2 Dependence on renal dialysis; Z79.82 Long term (current) use of aspirin; Z87.891 Personal history of nicotine dependence
CPT/HCPCS: 36415; 71010; 80053; 80061; 82550; 82948; 83036; 83615; 83880; 84439; 84443; 84484; 85025; 85610; 85730; 93005; 99285; G0378

== ENCOUNTER 2017-03-18 12:26 | Inpatient (IN) | payer MEDICARE, OTHER ==
--- NOTE | 2017-03-18 12:42 | ED PDOC ---
Arrival/HPI - General Historian: Patient - History of Present Illness Time/Duration: < week Symptom Onset: Gradual Symptom Course: Worsening Quality: Unable to Describe <Ministerio Camacho - Last Filed: 03/18/17 21:35> <Deuce Hutson - Last Filed: 03/18/17 21:43> - General Chief Complaint: Shortness Of Breath Time Seen by Provider: 03/18/17 12:41 - History of Present Illness Narrative History of Present Illness (Text): 56 F with PMH of uncontrolled hypertension, COPD, PAD, pulm HTN, CAD with stent , NV, right carotid angioplasty and ESRD on HD , , Sat) presents to ED for complaint of SOB. Patient states that she has been experiencing the SOB for 4-5 days and has been getting progressively worse. She reports that she was at dialysis yesterday and they told her that she had no extra fluid to remove. Patient currently denying any associated chest pain. She does report non- productive cough and MENDEZ. Patient came to ED last week for chest pain. She was recently hospitalized for NV in January. Patient states nothing alleviates her symptoms even though she is on home oxygen. Exertion exacerbates the SOB. Admits dizziness, LE pain, nausea/vomiting x 2 episode yesterday, fatigue, palpitations, orthopnea. Denies fever/chills, cp, abd pain, diarrhea, numbness/ tingling, incontinence, weakness. (Ministerio Camacho) Past Medical History - Provider Review Nursing Documentation Reviewed: Yes - Travel History Have you recently traveled outside [place] w/in the past 3 mons?: No - Infectious Disease Hx of Infectious Diseases: None - Tetanus Immunization Tetanus Immunization: Unknown - Cardiac Hx Cardiac Disorders: Yes (mi, cardiomyopathy,cad,dvt) Hx Congestive Heart Failure: Yes Hx NV: Yes Hx Hypertension: Yes - Pulmonary Hx Respiratory Disorders: Yes Hx Chronic Obstructive Pulmonary Disease (COPD): Yes - Neurological Hx Neurological Disorder: Yes Hx Dizziness: Yes Hx Migraine: Yes - HEENT Hx HEENT Disorder: Yes (tinnitus, hearing loss right ear) - Renal Hx Renal Disorder: Yes Hx Dialysis: Yes - Endocrine/Metabolic Hx Endocrine Disorders: Yes Hx Diabetes Mellitus Type 2: Yes Hx Hypothyroidism: Yes - Hematological/Oncological Hx Blood Disorders: Yes Hx Anemia: Yes (blood transfusion) - Integumentary Hx Dermatological Disorder: No - Musculoskeletal/Rheumatological Hx Musculoskeletal Disorders: Yes Hx Falls: Yes (past) - Gastrointestinal Hx Gastrointestinal Disorders: Yes (diverticulosis, hiatal hernia) Hx Diverticulitis: Yes Hx Gastroesophageal Reflux: Yes - Genitourinary/Gynecological Hx Genitourinary Disorders: Yes - Psychiatric Hx Psychophysiologic Disorder: Yes Hx Anxiety: Yes Hx Substance Use: No - Past Surgical History Past Surgical History: Unable to Obtain - Surgical History Hx Appendectomy: Yes Hx Cardiac Catheterization: Yes (08/26/12) Hx Coronary Stent: Yes Other/Comment: r arm avfistula no in use due to clot, pt has rcw hd catheter in use for hd, tonsillectomy, rcw udall in and out, thoracenthesis x2, c section - Anesthesia Hx Anesthesia: Yes Hx Anesthesia Reactions: No Hx Malignant Hyperthermia: No - Suicidal Assessment Feels Threatened In Home Enviroment: No <Ministerio Camacho - Last Filed: 03/18/17 21:35> Family/Social History - Physician Review Nursing Documentation Reviewed: Yes Family/Social History: Unknown Family HX Smoking Status: Former Smoker Hx Alcohol Use: No Hx Substance Use: No Hx Substance Use Treatment: No <Ministerio Camacho - Last Filed: 03/18/17 21:35> Allergies/Home Meds <Ministerio Camacho - Last Filed: 03/18/17 21:35> <Deuce Hutson - Last Filed: 03/18/17 21:43> Allergies/Adverse Reactions: Allergies ciprofloxacin Allergy (Verified 03/12/17 08:53) RASH hydralazine Allergy (Verified 03/12/17 08:53) RASH vancomycin Allergy (Verified 03/12/17 08:53) SHORTNESS OF BREATH ct dye Allergy (Uncoded 03/12/17 08:53) RASH Home Medications: Home Meds Medication Instructions Recorded Confirmed Cinacalcet [Sensipar] 30 mg PO DAILY 03/05/15 03/12/17 Sildenafil [Revatio] 20 mg PO DAILY 03/10/16 03/12/17 Metoprolol Tartrate [Lopressor] 100 mg PO BID 04/29/16 03/12/17 Sevelamer [Renagel] 1,600 mg PO QID 04/29/16 03/12/17 cloNIDine [Catapres] 0.2 mg PO TID 06/04/16 03/12/17 Alprazolam [Xanax] 0.25 mg PO BID PRN 03/12/17 03/12/17 Aspirin [Aspirin EC] 325 mg PO DAILY 03/12/17 03/12/17 Review of Systems - Review of Systems Constitutional: Fatigue, Night Sweats. absent: Fevers Eyes: absent: Photophobia, Eye Pain ENT: absent: TMJ Pain Respiratory: Wheezing. absent: SOB, Cough Cardiovascular: Palpitations, Calf Pain, Orthopnea. absent: Chest Pain, Edema, Syncope Gastrointestinal: Nausea, Vomiting. absent: Abdominal Pain, Constipation, Diarrhea, Hematochezia, Hematemesis Genitourinary Female: absent: Frequency, Hematuria Musculoskeletal: Arthralgias, Back Pain, Myalgias Skin: absent: Rash, Skin Lesions Neurological: Dizziness. absent: Headache, Facial Droop Endocrine: absent: Diaphoresis, Polyuria Hemo/Lymphatic: absent: Adenopathy, Easy Bleeding, Easy Bruising Psychiatric: absent: Anxiety, Depression, Suicidal Ideation <Ministerio Camacho - Last Filed: 03/18/17 21:35> Physical Exam Vital Signs Reviewed: Yes Temperature: Afebrile Blood Pressure: Hypertensive Pulse: Regular Respiratory Rate: Normal Appearance: Positive for: Uncomfortable Pain Distress: Mild Mental Status: Positive for: Alert and Oriented X 3 - Systems Exam Head: Present: Atraumatic, Normocephalic Pupils: Present: PERRL Extroacular Muscles: Present: EOMI Conjunctiva: Present: Normal Ears: Present: Normal Mouth: Present: Moist Mucous Membranes Pharnyx: Present: Normal Nose (External): Present: Atraumatic Neck: Present: Normal Range of Motion, Trachea Midline Respiratory/Chest: Present: Decreased Breath Sounds. No: Respiratory Distress, Accessory Muscle Use, Wheezes, Rales, Rhonchi Cardiovascular: Present: Regular Rate and Rhythm, Normal S1, S2 Abdomen: Present: Normal Bowel Sounds. No: Tenderness, Distention, Rebound, Guarding Back: Present: Paraspinal Tenderness. No: CVA Tenderness Upper Extremity: Present: NORMAL PULSES, Neurovascularly Intact, Capillary Refill < 2s, Other (RUE AV fistula) Lower Extremity: Present: CALF TENDERNESS, NORMAL PULSES, Tenderness, Neurovascularly Intact, Capillary Refill < 2 s Neurological: Present: GCS=15, CN II-XII Intact, Motor Func Grossly Intact, Normal Sensory Function Skin: Present: Warm, Dry Lymphatic: No: Cervical Adenopathy, Axillary Adenopathy, Inguinal Adenopathy Psychiatric: Present: Alert, Oriented x 3, Normal Insight, Normal Concentration <DougMinisterio - Last Filed: 03/18/17 21:35> <CarylRizwanlex - Last Filed: 03/18/17 21:43> Vital Signs Temp Pulse Resp BP Pulse Ox 03/18/17 21:26 92 H 18 201/97 H 97 03/18/17 21:16 211/99 H 03/18/17 18:16 92 H 18 211/98 H 97 03/18/17 18:13 92 H 18 211/98 H 97 03/18/17 17:13 76 223/125 H 03/18/17 16:17 98.5 F 82 20 96 03/18/17 14:30 90 209/96 H 03/18/17 13:10 98.8 F 96 H 20 214/98 H 97 03/18/17 12:51 98.7 F 116 H 23 166/114 H 93 L Medical Decision Making - Lab Interpretations I have reviewed the lab results: Yes Interpretation: Abnormal lab values (K 5.7) - EKG Interpretation Interpreted by ED Physician: Yes Type: 12 lead EKG <Ministerio Camacho - Last Filed: 03/18/17 21:35> - Lab Interpretations I have reviewed the lab results: Yes <Deuce Hutson - Last Filed: 03/18/17 21:43> ED Course and Treatment: EKG performed which showed NSR @95 bpm with LVH. CXR, CBC, CMP, Mag, Phos, Lipase, Cardiac enzymes ordered, Patient given nebulizer, steroids, labetalol, and robitussin. V/Q scan and LE doppler also ordered. LE doppler is negative. Percocet was given for pain. Potassium came back at 5.7. kayexalate 30 gm was given. CXR no interval change and V/Q scan indicated indeterminate, no definite evidence of PE. BP was still elevated so a second dose of labetalol was given. BP still resistant after 2nd dose so amlodipine and nitro was administered. Patient will be admitted for observation. (Ministerio Camacho) Patient seen and examined with resident. Came up with treatment and disposition plan with resident. The patient is a 56 year old female who comes to the emergency department for evaluation of shortness of breath. Additional HPI details as noted by the resident. On physical examination the patient has decreased breath sound. EKG, Chest X-ray, Bilateral lower extremity Duplex ultrasound, VQ scan and Lab work ordered. Patient given Atrovent, Robitussin, Solu-medrol, Trandate and Xopenex for symptomatic control. EKG showes a normal sinus rhythm at 95 BPM with LVH. Ultrasound is negative for DVT. 03/18/17 20:50 Patient's BP remained elevated despite labetalol x 2 ; her vq was intermediate prob with negative LE dopplers. EKG is unchanged with trop trending down. Colstrip better with nebs but BP still uncontrolled - patient need further observation. Upon discussion with Dr. Coffman, she said to give her 1" NTP and 10 mg norvasc. (Deuce Hutson) - Lab Interpretations Lab Results: 03/18/17 14:00 03/18/17 16:10 Lab Results 03/18/17 16:10: Sodium 138, Potassium 5.7 H* D, Chloride 96 L, Carbon Dioxide 25 , Anion Gap 23 H, BUN 59 H, Creatinine 7.6 H, Est GFR ( Amer) 7, Est GFR (Non-Af Amer) 6, Random Glucose 175 H, Calcium 9.9, Phosphorus 9.4 H, Magnesium 2.4 H, Total Bilirubin 0.6, AST 31, ALT 39, Alkaline Phosphatase 196 H, Lactate Dehydrogenase 618, Total Creatine Kinase 42, Troponin I 0.06, Total Protein 6.3 , Albumin 4.0, Globulin 2.3, Albumin/Globulin Ratio 1.7, Lipase 86 03/18/17 14:00: PT 11.0, INR 1.02, APTT 28.0 03/18/17 14:00: WBC 7.6, RBC 4.24, Hgb 12.3, Hct 41.3, MCV 97.4, MCH 29.0, MCHC 29.8 L, RDW 16.0 H, Plt Count 258, MPV 10.4, Gran % 76.3 H, Lymph % (Auto) 15.6 L, [place] % (Auto) 6.7 H, Eos % (Auto) 0.9 L, Baso % (Auto) 0.5, Gran # 5.76, Lymph # 1.2, [place] # 0.5, Eos # 0.1, Baso # 0.04 - RAD Interpretation Radiology Orders: 03/18/17 13:12 CXR [CHEST PORTABLE] [RAD] Stat 03/18/17 13:19 LUNG PERF & VENT SCAN [NM] Stat 03/18/17 13:20 DUPLEX LOWER EXTRM VEIN BILAT [US] Stat - EKG Interpretation EKG Interpretation (Text): NSR @95 bpm with LVH (Imbrescia,Ministerio) - Medication Orders Current Medication Orders: Discontinued Medications Amlodipine Besylate (Norvasc) 10 mg PO STAT STA Stop: 03/18/17 20:55 Last Admin: 03/18/17 21:16 Dose: 10 mg Guaifenesin (Robitussin) 400 mg PO ONCE STA Stop: 03/18/17 13:20 Last Admin: 03/18/17 13:40 Dose: 400 mg Ipratropium [place] (Atrovent) 0.5 mg IH STAT STA Stop: 03/18/17 13:20 Last Admin: 03/18/17 13:40 Dose: 0.5 mg Labetalol HCl (Trandate) 20 mg IV STAT STA Stop: 03/18/17 13:27 Last Admin: 03/18/17 14:30 Dose: 20 mg Labetalol HCl (Trandate) 20 mg IV STAT STA Stop: 03/18/17 16:49 Last Admin: 03/18/17 17:13 Dose: 20 mg Levalbuterol HCl (Xopenex) 1.25 mg IH STAT STA Stop: 03/18/17 13:19 Last Admin: 03/18/17 13:40 Dose: 1.25 mg Methylprednisolone (Solu-Medrol) 125 mg IVP STAT STA Stop: 03/18/17 13:19 Last Admin: 03/18/17 14:25 Dose: 125 mg Nitroglycerin (Nitro-Bid 2% Oint) 1 ea TOP STAT STA Stop: 03/18/17 20:54 Last Admin: 03/18/17 21:16 Dose: 1 ea Oxycodone/Acetaminophen (Percocet 5/325 Mg Tab) 1 tab PO STAT STA Stop: 03/18/17 16:53 Last Admin: 03/18/17 17:25 Dose: 1 tab Sodium Polystyrene Sulfonate (Kayexalate Oral Susp) 30 gm PO STAT STA Stop: 03/18/17 17:01 Last Admin: 03/18/17 17:16 Dose: 30 gm <Ministerio Camacho - Last Filed: 03/18/17 21:35> - PA / TECHNOLOGY METHODOLOGY CONSULTANT / Resident Statement MD/DO has reviewed & agrees with the documentation as recorded. MD/DO has examined the patient and agrees with the treatment plan. - Scribe Statement The provider has reviewed the documentation as recorded by the Scribe <Deuce Hutson - Last Filed: 03/18/17 21:43> - Scribe Statement Clary Fung Provider Scribe Attestation: All medical record entries made by the Scribe were at my direction and personally dictated by me. I have reviewed the chart and agree that the record accurately reflects my personal performance of the history, physical exam, medical decision making, and the department course for this patient. I have also personally directed, reviewed, and agree with the discharge instructions and disposition. (Deuce Hutson) Disposition/Present on Arrival - Present on Arrival Any Indicators Present on Arrival: No History of DVT/PE: No History of Uncontrolled Diabetes: No Urinary Catheter: No History of Decub. Ulcer: No History Surgical Site Infection Following: None - Disposition Have Diagnosis and Disposition been Completed?: Yes Disposition Time: 20:54 Patient Plan: Admission, Observation <Ministerio Camacho - Last Filed: 03/18/17 21:35> - Disposition Disposition Time: 19:50 <Deuce Hutson - Last Filed: 03/18/17 21:43> - Disposition Diagnosis: Shortness of breath, Uncontrolled hypertension Disposition: HOSPITALIZED Patient Problems: Current Active Problems Problem Status Onset Shortness of breath Acute Uncontrolled hypertension Acute Condition: FAIR
[2017-03-18 13:15] VITALS: BMI 25.9
[2017-03-18] MEDS ORDERED: Levalbuterol 1.25 MG/3 ML Inhal Soln UD IH STA (13:18)
[2017-03-18] MEDS ORDERED: Ipratropium 0.02% Inhal Soln (0.5 mg/2.5 ml) UD IH STA (13:19)
[2017-03-18] MEDS ORDERED: guaiFENesin 200 mg/10 ml Syrup UD PO STA (13:19)
[2017-03-18] MEDS ORDERED: Labetalol 5 mg/ml Inj 20ML IV STA ×2 (13:26→16:48)
--- NOTE | 2017-03-18 14:22 | RAD ---
HISTORY: sob COMPARISON: 03/12/2017 FINDINGS: LUNGS: No active pulmonary disease. PLEURA: No significant pleural effusion identified, no pneumothorax apparent. CARDIOVASCULAR: Mild cardiomegaly as before. Pulmonary vasculature probably top-normal similar-appearing. Dialysis catheter in place. Thoracic aortic atherosclerotic vascular disease OSSEOUS STRUCTURES: No significant abnormalities. VISUALIZED UPPER ABDOMEN: Normal. OTHER FINDINGS: None. IMPRESSION: No interval pathology noted
[2017-03-18 14:57] LABS: BASO # 0.04 K/mm3 (0.0-2.0); BASO % 0.5 % (0.0-3.0); EOS # 0.1 (0.0-0.7); EOS % 0.9 % (1.5-5.0); GRAN # 5.76 (1.4-6.5); GRAN % 76.3 % (50.0-68.0); HEMOGLOBIN 12.3 gm/dL (12.0-16.0); LYMPH # 1.2 (1.2-3.4); LYMPH % 15.6 % (22.0-35.0); MEAN CELL VOLUME 97.4 fL (80.0-105.0); MEAN CORPUSCULAR HGB CONC 29.8 g/dl (31.0-37.0); MEAN PLATELET VOLUME 10.4 fl (7.0-11.0); MONO # 0.5 (0.1-0.6); MONO % 6.7 % (1.0-6.0); PLATELET COUNT 258 10^3/uL (120.0-450.0); RBC 4.24 10^6/uL (3.5-6.1); WHITE BLOOD COUNT 7.6 10^3/ul (4.5-11.0)
[2017-03-18 15:09] LABS: INR 1.02 (0.93-1.08)
[2017-03-18 15:35] LABS: ALB/GLOB RATIO 1.7 (1.1-1.8); CALCIUM 9.9 mg/dL (8.4-10.5); MAGNESIUM 2.4 mg/dL (1.7-2.2)
[2017-03-18 15:47] LABS: TROPONIN I 0.06 ng/mL
[2017-03-18] MEDS ORDERED: Oxycodone/Acetaminophen 5/325 mg Tab PO STA (16:52)
[2017-03-18] MEDS ORDERED: Sod Polystyrene Sulf 15 gm/60 ml Oral Susp PO STA (17:00)
--- NOTE | 2017-03-18 17:52 | US ---
HISTORY: Leg pain and swelling. Evaluate for DVT PHYSICIAN(S): Lucio Thomas MD. TECHNIQUE: Duplex sonography and color-flow Doppler with graded compression were used to evaluate the deep venous systems of both lower extremities. FINDINGS: The visualized deep venous systems of both lower extremities are sonographically normal and compressible. Normal wave forms and augmentation are seen. There is no sonographic evidence for deep venous thrombosis in the visualized segments of both lower extremities. IMPRESSION: No sonographic evidence for deep venous thrombosis in the visualized segments of both lower extremities.
--- NOTE | 2017-03-18 18:20 | NM ---
PROCEDURE: Radionuclide pulmonary ventilation and perfusion scan HISTORY: sob - r/o PE COMPARISON: Not available TECHNIQUE: A pulmonary ventilation scan was performed utilizing 32.0 mCi of technetium 99 M DTPA aerosol, inhaled. A pulmonary perfusion scan was performed utilizing 4.8 mCi of technetium 99 M maa administered intravenously. Images were acquired only in the anterior and posterior projections because the patient could not tolerate additional imaging. FINDINGS: There are no mismatched perfusion defects identified. There is a subsegmental matched defect seen in the posterior left lower lobe. Similarly, there is a matched subsegmental defect seen in the lateral right lower lobe. Because only two views could be obtained, examination is considered indeterminate. IMPRESSION: Indeterminate examination. No definite evidence of pulmonary embolism.
[2017-03-18] MEDS ORDERED: Nitroglycerin 2% Ointment Foilpak UD TOP STA (20:53)
[2017-03-19] MEDS: Levalbuterol 1.25 MG/3 ML Inhal Soln UD IH SCH ×4 (01:26→19:42)
[2017-03-19] MEDS: Levothyroxine 75 MCG TAB PO SCH (05:52)
[2017-03-19] MEDS: Pantoprazole 40 mg EC Tab PO SCH (05:52)
[2017-03-19 07:14] LABS: BASO # 0.01 K/mm3 (0.0-2.0); BASO % 0.1 % (0.0-3.0); GRAN # 5.61 (1.4-6.5); GRAN % 83.5 % (50.0-68.0); HEMOGLOBIN 10.9 gm/dL (12.0-16.0); LYMPH # 0.7 (1.2-3.4); LYMPH % 10.9 % (22.0-35.0); MEAN CELL VOLUME 95.8 fL (80.0-105.0); MEAN CORPUSCULAR HEMOGLOBIN 28.4 pg (25.0-35.0); MEAN CORPUSCULAR HGB CONC 29.6 g/dl (31.0-37.0); MEAN PLATELET VOLUME 10.6 fl (7.0-11.0); MONO # 0.4 (0.1-0.6); MONO % 5.5 % (1.0-6.0); PLATELET COUNT 260 10^3/uL (120.0-450.0); RBC 3.84 10^6/uL (3.5-6.1); RED CELL DISTRIBUTION WIDTH 16.1 % (11.5-14.5); WHITE BLOOD COUNT 6.7 10^3/ul (4.5-11.0)
[2017-03-19 07:19] LABS: ALB/GLOB RATIO 1.6 (1.1-1.8); CALCIUM 9.1 mg/dL (8.4-10.5); MAGNESIUM 2.5 mg/dL (1.7-2.2)
[2017-03-19] MEDS: Sildenafil 20 MG TAB PO SCH (09:53)
[2017-03-19] MEDS ORDERED: Aspirin 325 mg EC Tablets PO SCH (10:00)
[2017-03-19] MEDS: Oxycodone/Acetaminophen 5/325 mg Tab PO PRN (10:04)
--- NOTE | 2017-03-19 10:54 | CARD ---
APPROVED REPORT EKG Measurement Heart [id number] <Conclusion> Normal sinus rhythm Biatrial enlargement Left ventricular hypertrophy with repolarization abnormality Abnormal ECG
--- NOTE | 2017-03-19 13:46 | CP.PCM.CON ---
<Aylin Wilcox - Last Filed: 03/19/17 14:33> History of Present Illness - History of Present Illness History of Present Illness: PGY-2 Neurology progress note for DR Ortiz. Reason for consult: LE weakness Patient is a 56 y/o with pmh of htn, COPD, PAD, Pulm htn, CAD, MN with stents, right carotid angioplasty, ESRD oN hd ( t, th, sat), whom presented to [facility] with SOB, and b/l lower extremities pain. Neuro consulted for LE pain. Patient states she has been experiencing the LE pain for over a year. Patient states she was told in the past she had PAD and the problem has been on going. Patient states the pain is mostly when she ambulates, gets burning like pain after walking few blocks. Patient states at rest the legs feels hot and weird. Patient denies focal weakness. Patent denies headache, dizziness, n/v/d. Patient had LE u/s with no DVT, pt also had VQ scan in the ED with indeterminate exam. PMH: As stated above PSH: stents, angioplasty, HD catheter insertion. Review of Systems - Review of Systems All systems: reviewed and no additional remarkable complaints except Review of Systems: All 12 point ROS reviewed with all normal except as stated in HPI. Past Patient History - Infectious Disease Hx of Infectious Diseases: None - Tetanus Immunizations Tetanus Immunization: Unknown - Past Social History Smoking Status: Former Smoker Alcohol: None Drugs: Denies - CARDIAC Hx Cardiac Disorders: Yes (Pulmonary Hypertension) Hx Angina: Yes Hx Cardia Arrhythmia: Yes Hx Circulatory Problems: Yes Hx Congestive Heart Failure: Yes Hx Heart Murmur: No Hx Heart Transplant: No Hx Hypercholesterolemia: Yes Hx Hypertension: Yes Hx Internal Defibrillator: No Hx Mitral Valve Prolapse: No Hx Pacemaker: No Hx Peripheral Edema: Yes Hx Peripheral Vascular Disease: Yes - PULMONARY Hx Respiratory Disorders: Yes Hx Asthma: No Hx Bronchitis: No Hx Chronic Obstructive Pulmonary Disease (COPD): Yes Hx Emphysema: No Hx Pneumonia: No Hx Respiratory Aspiration: No Hx Respiratory Tract Infection: No Hx Sleep Apnea: No Hx Tuberculosis: No - NEUROLOGICAL Hx Neurological Disorder: No Hx Alzheimer's Disease: No HX Cerebrovascular Accident: No Hx Dementia: No Hx Dizziness: No Hx Meningitis: No Hx Migraine: Yes Hx Parkinson's Disease: No Hx Seizures: No Hx Transient Ischemic Attacks (TIA): No - HEENT Hx HEENT Problems: Yes (hard of hearing) Hx Blind: No Hx Cataracts: No Hx Deafness: No Hx Difficulty Chewing: No Hx Epistaxis: No Hx Glaucoma: No Hx Macular Degeneration: No - RENAL Hx Chronic Kidney Disease: Yes Hx Dialysis: Yes Hx Kidney Stones: No Hx Neurogenic Bladder: No Hx Pyelonephritis: No Hx Renal (Kidney) Cancer: No Hx Renal Failure: No - ENDOCRINE/METABOLIC Hx Endocrine Disorders: Yes Hx Adrenal Cancer: No Hx Diabetes Insipidus: No Hx Diabetes Mellitus Type 1: No Hx Diabetes Mellitus Type 2: No Hx Hyperthyroidism: No Hx Hypothyroidism: Yes Hx Systemic Lupus Erythematosus: No - HEMATOLOGICAL/ONCOLOGICAL Hx Blood Disorders: Yes Hx AIDS: No Hx Anemia: Yes Hx Cancer: No Hx Chemotherapy: No Hx Cirrhosis: No Hx Hemophilia: No Hx Hepatitis A: No Hx Hepatitis B: No Hx Hepatitis C: No Hx Human Immunodeficiency Virus (HIV): No Hx Metastesis: No Hx Shingles: No Hx Sickle Cell Disease: No Hx Unexplained Bleeding: No - INTEGUMENTARY Hx Dermatological Problems: No Hx Basil Cell: No Hx Eczema: No Hx Melanoma: No Hx Psoriasis: No Hx Squamous Cell: No - MUSCULOSKELETAL/RHEUMATOLOGICAL Hx Musculoskeletal Disorders: Yes Hx Arthritis: No Hx Back Pain: Yes Hx Degenerative Joint Disease: No Hx Falls: Yes Hx Fractures: No Hx Gout: No Hx Herniated Disk: No Hx Myasthenia Gravis: No Hx Osteoarthritis: No Hx Osteomyelitis: No Hx Osteoporosis: No Hx Rhabdomyolysis: No Hx Spinal Stenosis: No Hx Unsteady Gait: No - GASTROINTESTINAL Hx Gastrointestinal Disorders: Yes Hx Colostomy: No Hx Crohn's Disease: No Hx Diverticulitis: Yes Hx Gall Bladder Disease: No Hx Gastroesophageal Reflux: Yes Hx Ileostomy: No Hx Liver Failure: No Hx Pancreatitis: No HX Swallowing Problems: No Hx Ulcer: No - GENITOURINARY/GYNECOLOGICAL Hx Genitourinary Disorders: No Hx Hematuria: No Hx Incontinence: No Hx Sexually Transmitted Disorders: No Hx Urinary Tract Infection: No - PSYCHIATRIC Hx Psychophysiologic Disorder: Yes Hx Anxiety: Yes Hx Bipolar Disorder: No Hx Depression: No Hx Emotional Abuse: No Hx Hallucinations: No Hx Panic Symptoms: No Hx Paranoia: No Hx Post Traumatic Stress Disorder: No Hx Psychosis: No Hx Physical Abuse: No Hx Schizophrenia: No Hx Sexual Abuse: No - SURGICAL HISTORY Hx Surgeries: Yes Hx Amputation: No Hx Appendectomy: No Hx Cardiac Catheterization: Yes Hx Cholecystectomy: No Hx Coronary Stent: Yes Hx Gastric Bypass Surgery: No Hx Hysterectomy: No Hx Joint Replacement: No Hx Kidney Transplant: No Hx Liver Transplant: No Hx Mastectomy: No Hx Musculoskeletal Surgery: No Hx Open Heart Surgery: No Hx Orthopedic Surgery: No Hx Splenectomy: No Hx Valve Replacement: No - ANESTHESIA Hx Anesthesia: Yes Hx Anesthesia Reactions: No Hx Malignant Hyperthermia: No Meds Allergies/Adverse Reactions: Allergies Allergy/AdvReac Type Severity Reaction Status Date / Time ciprofloxacin Allergy RASH Verified 03/12/17 08:53 hydralazine Allergy RASH Verified 03/12/17 08:53 vancomycin Allergy SHORTNESS Verified 03/12/17 08:[address] dye Allergy RASH Uncoded 03/12/17 08:53 - Medications Medications: Current Medications Alprazolam (Xanax) 0.5 mg PO BID PRN; Protocol PRN Reason: Anxiety Amlodipine Besylate (Norvasc) 10 mg PO DAILY [facility] Last Admin: 03/19/17 09:56 Dose: 10 mg Aspirin (Aspirin Chewable) 81 mg PO DAILY [facility] Last Admin: 03/19/17 09:53 Dose: 81 mg Cinacalcet (Sensipar) 30 mg PO DAILY [facility] Last Admin: 03/19/17 09:53 Dose: 30 mg Clonidine HCl (Catapres) 0.2 mg PO TID [facility] Last Admin: 03/19/17 09:56 Dose: 0.2 mg Clopidogrel Bisulfate (Plavix) 75 mg PO DAILY [facility] Last Admin: 03/19/17 09:53 Dose: 75 mg Famotidine (Pepcid) 10 mg PO BID PRN PRN Reason: Pain, Mild (1-3) Last Admin: 03/19/17 09:53 Dose: 10 mg Levalbuterol HCl (Xopenex) 1.25 mg IH [id number] [facility] Last Admin: 03/19/17 13:32 Dose: Not Given Levothyroxine Sodium (Synthroid) 75 mcg PO 0600 [facility] Last Admin: 03/19/17 05:52 Dose: 75 mcg Metoprolol Tartrate (Lopressor) 100 mg PO BID [facility] Last Admin: 03/19/17 10:54 Dose: 100 mg Ondansetron HCl (Zofran Inj) 4 mg IVP Q6H PRN PRN Reason: Nausea/Vomiting Last Admin: 03/19/17 09:00 Dose: 4 mg Oxycodone/Acetaminophen (Percocet 5/325 Mg Tab) 1 tab PO Q4H PRN PRN Reason: Pain, moderate (4-7) Stop: 03/21/17 23:28 Last Admin: 03/19/17 10:04 Dose: 1 tab Pantoprazole Sodium (Protonix Ec Tab) 40 mg PO 0600 [facility] Last Admin: 03/19/17 05:52 Dose: 40 mg Sevelamer HCl (Renagel) 1,600 mg PO 0800,1200,1700,2200 [facility] Last Admin: 03/19/17 09:52 Dose: 1,600 mg Sildenafil Citrate (Revatio) 20 mg PO DAILY [facility] Last Admin: 03/19/17 09:53 Dose: 20 mg Physical Exam - Constitutional Appears: No Acute Distress, Older Than Stated Age, Chronically Ill - Head Exam Head Exam: ATRAUMATIC, NORMAL INSPECTION, NORMOCEPHALIC - Eye Exam Eye Exam: EOMI, Normal appearance, PERRL - ENT Exam ENT Exam: Mucous Membranes Dry - Neck Exam Neck exam: Positive for: Full Rom, Normal Inspection. Negative for: Tenderness - Respiratory Exam Respiratory Exam: Clear to Auscultation Bilateral, NORMAL BREATHING PATTERN. absent: Rales, Rhonchi, Wheezes, Respiratory Distress, Stridor - Cardiovascular Exam Cardiovascular Exam: REGULAR RHYTHM, +S1, +S2. absent: Systolic Murmur - GI/Abdominal Exam GI & Abdominal Exam: Normal Bowel Sounds, Soft. absent: Distended, Tenderness - Extremities Exam Additional comments: No pitting edema. Unable to palpate LE pulses. ( dorsalis pedis and posterior tibial) - Back Exam Back exam: NORMAL INSPECTION - Neurological Exam Neurological exam: Alert, CN II-XII Intact, Oriented x3, Reflexes Normal Additional comments: Speaking in full sentences, awake and alert x3. No facial asymmetry, masseter muscle symmetrical, no atrophy. Tongue midline, no atrophy. Normal finger to nose, no pronator drip, plantar reflexes normal. 5/5 flexion and extension motor strength b/l upper and lower extremities. No tremors, no rigidity. + 2 patella, achilles tendon, biceps, and brachioradialis reflexes b/l. Normal DTRs. Sensation to dull objects in the upper/lower extremities and face intact. Gait: deferred. - Psychiatric Exam Psychiatric exam: Normal Affect, Normal Mood - Skin Skin Exam: Dry, Warm Results - Vital Signs Recent Vital Signs: Last Vital Signs Temp 98.5 F 03/19/17 12:00 Pulse 80 03/19/17 12:00 Resp 20 03/19/17 12:00 BP 119/59 L 03/19/17 12:00 Pulse Ox 90 L 03/19/17 06:00 - Labs Result Diagrams: 03/19/17 06:30 03/19/17 06:30 Labs: Laboratory Results - last 24 hr 03/19/17 03/19/17 06:30 06:30 WBC 6.7 RBC 3.84 Hgb 10.9 L Hct 36.8 MCV 95.8 MCH 28.4 MCHC 29.6 L RDW 16.1 H Plt Count 260 MPV 10.6 Gran % 83.5 H Lymph % (Auto) 10.9 L Pitt % (Auto) 5.5 Eos % (Auto) 0.0 L Baso % (Auto) 0.1 Gran # 5.61 Lymph # 0.7 L Pitt # 0.4 Eos # 0.0 Baso # 0.01 Sodium 139 Potassium 6.1 H* Chloride 99 Carbon Dioxide 22 Anion Gap 24 H BUN 75 H Creatinine 8.7 H* Est GFR ( Amer) 6 Est GFR (Non-Af Amer) 5 Random Glucose 104 Calcium 9.1 Phosphorus 10.6 H Magnesium 2.5 H Total Bilirubin 0.5 AST 38 ALT 51 Alkaline Phosphatase 175 H Total Protein 6.4 Albumin 4.0 Globulin 2.5 Albumin/Globulin Ratio 1.6 Assessment & Plan - Assessment and Plan (Free Text) Assessment: Patient is a 56 y/o with pmh of htn, COPD, PAD, Pulm htn, CAD, [place] with stents, right carotid angioplasty, ESRD oN hd ( t, th, sat), whom presented to [facility] with SOB, and b/l LE claudication. Impression: LE claudication likely 2nd to worsening PAD. Plan: - C/W plavix and asa - will obtain lipid profile - Rec statin - PT/OT. - HD due today, will eventually alleviate the electrolyte imbalance. - Stable neurologically. - Recommend PAD work up and vascular evaluation - Thank you for consulting Dr Ortiz. Patient seen, examined, discussed with Dr Ortiz. - Date & Time Date: 03/19/17 Time: 13:15 <Rico Ortiz - Last Filed: 03/19/17 16:00> Meds - Medications Medications: Current Medications Alprazolam (Xanax) 0.5 mg PO BID PRN; Protocol PRN Reason: Anxiety Amlodipine Besylate (Norvasc) 10 mg PO DAILY [facility] Last Admin: 03/19/17 09:56 Dose: 10 mg Aspirin (Aspirin Chewable) 81 mg PO DAILY [facility] Last Admin: 03/19/17 09:53 Dose: 81 mg Cinacalcet (Sensipar) 30 mg PO DAILY [facility] Last Admin: 03/19/17 09:53 Dose: 30 mg Clonidine HCl (Catapres) 0.2 mg PO TID [facility] Last Admin: 03/19/17 13:59 Dose: Not Given Clopidogrel Bisulfate (Plavix) 75 mg PO DAILY [facility] Last Admin: 03/19/17 09:53 Dose: 75 mg Famotidine (Pepcid) 10 mg PO BID PRN PRN Reason: Pain, Mild (1-3) Last Admin: 03/19/17 09:53 Dose: 10 mg Levalbuterol HCl (Xopenex) 1.25 mg IH [id number] [facility] Last Admin: 03/19/17 13:32 Dose: Not Given Levothyroxine Sodium (Synthroid) 75 mcg PO 0600 [facility] Last Admin: 03/19/17 05:52 Dose: 75 mcg Metoprolol Tartrate (Lopressor) 100 mg PO BID [facility] Last Admin: 03/19/17 10:54 Dose: 100 mg Ondansetron HCl (Zofran Inj) 4 mg IVP Q6H PRN PRN Reason: Nausea/Vomiting Last Admin: 03/19/17 09:00 Dose: 4 mg Oxycodone/Acetaminophen (Percocet 5/325 Mg Tab) 1 tab PO Q4H PRN PRN Reason: Pain, moderate (4-7) Stop: 03/21/17 23:28 Last Admin: 03/19/17 10:04 Dose: 1 tab Pantoprazole Sodium (Protonix Ec Tab) 40 mg PO 0600 [facility] Last Admin: 03/19/17 05:52 Dose: 40 mg Sevelamer HCl (Renagel) 1,600 mg PO 0800,1200,1700,2200 [facility] Last Admin: 03/19/17 13:58 Dose: 1,600 mg Sildenafil Citrate (Revatio) 20 mg PO DAILY [facility] Last Admin: 03/19/17 09:53 Dose: 20 mg Results - Vital Signs Recent Vital Signs: Last Vital Signs Temp 98.5 F 03/19/17 12:00 Pulse 80 03/19/17 12:00 Resp 20 03/19/17 12:00 BP 98/52 L 03/19/17 13:59 Pulse Ox 90 L 03/19/17 06:00 - Labs Result Diagrams: 03/19/17 06:30 03/19/17 06:30 Labs: Laboratory Results - last 24 hr 03/19/17 03/19/17 06:30 06:30 WBC 6.7 RBC 3.84 Hgb 10.9 L Hct 36.8 MCV 95.8 MCH 28.4 MCHC 29.6 L RDW 16.1 H Plt Count 260 MPV 10.6 Gran % 83.5 H Lymph % (Auto) 10.9 L Pitt % (Auto) 5.5 Eos % (Auto) 0.0 L Baso % (Auto) 0.1 Gran # 5.61 Lymph # 0.7 L Pitt # 0.4 Eos # 0.0 Baso # 0.01 Sodium 139 Potassium 6.1 H* Chloride 99 Carbon Dioxide 22 Anion Gap 24 H BUN 75 H Creatinine 8.7 H* Est GFR ( Amer) 6 Est GFR (Non-Af Amer) 5 Random Glucose 104 Calcium 9.1 Phosphorus 10.6 H Magnesium 2.5 H Total Bilirubin 0.5 AST 38 ALT 51 Alkaline Phosphatase 175 H Total Protein 6.4 Albumin 4.0 Globulin 2.5 Albumin/Globulin Ratio 1.6 Attending/Attestation - Attestation I have personally seen and examined this patient.: Yes I have fully participated in the care of the patient.: Yes I have reviewed all pertinent clinical information: Yes Notes (Text): 03/19/17 15:59 COULD CONSIDER GABAPENTIN 300MG PO QHS FOR NEUROPATHIC PAIN.
[2017-03-20] MEDS: Levalbuterol 1.25 MG/3 ML Inhal Soln UD IH SCH ×4 (01:08→20:05)
[2017-03-20] MEDS: Pantoprazole 40 mg EC Tab PO SCH (05:44)
[2017-03-20] MEDS: Levothyroxine 75 MCG TAB PO SCH (05:44)
[2017-03-20 07:09] LABS: HDL CHOLESTEROL 28 mg/dL (29-60)
[2017-03-20 07:20] LABS: LDL CHOLESTEROL 58 mg/dL (0-129)
[2017-03-20] MEDS: Oxycodone/Acetaminophen 5/325 mg Tab PO PRN (11:05)
[2017-03-20] MEDS: Sildenafil 20 MG TAB PO SCH (11:11)
--- NOTE | 2017-03-20 12:23 | CON ---
DATE: 03/19/2017 REASON FOR CONSULTATION: Hypertension, hyperkalemia, chest tightness. HISTORY OF PRESENTING ILLNESS: A 56-year-old lady, well known to me from outpatient followup, recurrent hospital followup. She is admitted with complaints of shortness of breath, chest tightness, nausea. Her blood pressure was found to be 214/98 in the emergency room. She was also found to be in respiratory distress. Her potassium was found to be 5.7. She had had regular dialysis on Thursday. Currently, she is sitting in bed. She had urgent dialysis this morning. She came of half an hour early because of nausea. She denies any fever, chills. She denies any headaches. PAST MEDICAL AND SURGICAL HISTORY: Severe hypertension, COPD, pulmonary hypertension, ESRD, anemia of chronic kidney disease, SVC syndrome, and anxiety. FAMILY HISTORY: Hypertension. SOCIAL HISTORY: Ex-smoker, no alcohol use, no IV drug abuse. ALLERGIES: CIPROFLOXACIN, HYDRALAZINE, VANCOMYCIN. MEDICATIONS: Aspirin, Catapres, Lopressor, Norvasc, Pepcid, Percocet, Plavix, Protonix, Renagel, Revatio, cinacalcet, Synthroid, Xanax, Xopenex. REVIEW OF SYSTEMS: All systems are reviewed, pertinent positives as mentioned in the history of presenting illness, rest unremarkable. PHYSICAL EXAMINATION: GENERAL: Middle-aged lady, sitting in bed. VITAL SIGNS: Blood pressure 135/74, heart rate 96, respiratory rate 20, temperature 98.7. HEENT: Normocephalic, atraumatic, positive pallor. NECK: Supple, no JVD. LUNGS: Bilateral rhonchi, no rales. CARDIAC: S1 and S2. Regular rate and rhythm. No murmur, no rub. ABDOMEN: Obese, soft, nontender, bowel sounds present. EXTREMITIES: No lower extremity edema. LABORATORY DATA: Potassium 6.1 prior to dialysis. Hemoglobin 10.9. ASSESSMENT AND PLAN: 1. Potassium 1 bath for the last 1 hour of dialysis. 2. Continue outpatient antihypertensive regimen. 3. Increase Xanax to 0.5 mg b.i.d. 4. Psych evaluation. 5. Cardiology evaluation. Tamanna Smith MD
--- NOTE | 2017-03-20 14:26 | PN ---
DATE: SUBJECTIVE: The patient is 56 years old who came to emergency room because of chest pain, pressure, headache, nausea, complaining of bilateral leg pain, left more than the right; also complaining of malfunction fistula, complaining of some chest discomfort at the dialysis catheter site, able to tolerate today. PHYSICAL EXAMINATION VITAL SIGNS: She is afebrile, pulse 84, respirations 20, blood pressure 137/72. LUNGS: Bilateral clear air flow. No known rhonchi or *------*. HEART: S1, S2 audible. ABDOMEN: Soft. Nontender. No rebound. No guarding. NEUROLOGIC: The patient is awake and alert, able to communicate. LABORATORY DATA: Triglyceride 217, cholesterol 131, HDL is 28. Nuclear scan is negative. ASSESSMENT: 1. Uncontrolled hypertension, seems to be stable now. 2. Malfunctioning right arm fistula. 3. Bilateral leg weakness and pain, left more than the right, probably related to peripheral vascular disease. 4. Gastritis. PLAN: Awaiting Dr. Lucio Thomas's input to evaluate her fistula and start physical therapy and we will make plan according to physical therapy assessment. She might need subacute rehab and we will revaluate the patient in a.m. Brittany Coffman MD
--- NOTE | 2017-03-20 20:24 | PN ---
DATE: 03/20/2017 SUBJECTIVE: The patient is seen lying in bed. She appears comfortable. PHYSICAL EXAMINATION: GENERAL: A 56-year-old lady lying in bed. VITAL SIGNS: Blood pressure 137/72, heart rate 84, respiratory rate 20, temperature 98.5. HEENT: Normocephalic, atraumatic. NECK: Supple. No JVD. LUNGS: Bilateral equal air entry. No rales. CARDIAC: S1, S2. Regular rate and rhythm. No murmur. No rubs. ABDOMEN: Obese, distended, soft, nontender. Bowel sounds present. EXTREMITIES: No lower extremity edema. INTAKE AND OUTPUT: Not charted. LABORATORY DATA: No new labs available. Potassium was 6.1 predialysis yesterday. CURRENT MEDICATIONS: Aspirin, Catapres 0.2 t.i.d., amlodipine 10, Pepcid, oxycodone, Plavix, Protonix, Renagel, Sensipar, Synthroid, Trandate, Xanax, Xopenex, Zofran. ASSESSMENT AND PLAN: 1. Status post hypertensive urgency, resolved. 2. Chest tightness, secondary to elevated blood pressure, resolved. 3. Hyperkalemia, status post dialysis with potassium *------* yesterday. 4. Nonobstructive coronary artery disease? PLAN: 1. Continue current antihypertensive. 2. Dialysis again tomorrow. 3. ?Discharge planning Tamanna Smith MD
[2017-03-21] MEDS: Levalbuterol 1.25 MG/3 ML Inhal Soln UD IH SCH ×7 (03:44→18:55)
[2017-03-21] MEDS: Levothyroxine 75 MCG TAB PO SCH (05:28)
[2017-03-21] MEDS: Pantoprazole 40 mg EC Tab PO SCH (05:28)
[2017-03-21 08:08] LABS: BASO # 0.03 K/mm3 (0.0-2.0); BASO % 0.4 % (0.0-3.0); EOS # 0.1 (0.0-0.7); EOS % 1.3 % (1.5-5.0); GRAN # 6.33 (1.4-6.5); GRAN % 74.3 % (50.0-68.0); HEMOGLOBIN 11.6 gm/dL (12.0-16.0); LYMPH # 1.3 (1.2-3.4); LYMPH % 15.2 % (22.0-35.0); MEAN CORPUSCULAR HEMOGLOBIN 29.4 pg (25.0-35.0); MEAN CORPUSCULAR HGB CONC 29.7 g/dl (31.0-37.0); MONO # 0.8 (0.1-0.6); MONO % 8.8 % (1.0-6.0); PLATELET COUNT 220 10^3/uL (120.0-450.0); RBC 3.94 10^6/uL (3.5-6.1); RED CELL DISTRIBUTION WIDTH 16.2 % (11.5-14.5); WHITE BLOOD COUNT 8.5 10^3/ul (4.5-11.0)
[2017-03-21 08:09] LABS: ALB/GLOB RATIO 1.8 (1.1-1.8); CALCIUM 8.8 mg/dL (8.4-10.5); MAGNESIUM 2.5 mg/dL (1.7-2.2)
[2017-03-21] MEDS ORDERED: Iron Sucrose 100 mg/5 ml Inj IVP ONE ×2 (08:49→10:30)
--- NOTE | 2017-03-21 09:52 | CP.PCM.CON ---
History of Present Illness - History of Present Illness History of Present Illness: follow-up note,this proposal lead writer is covering for . Patient is a 56 y/o with multiple medical issues including pmh of htn, COPD, PAD , Pulm htn, CAD, [place] with stents, right carotid angioplasty, ESRD on hemodyalisis ( t, th, sat), who admitted on the medical floor for evaluation of shortness of breath and LE pain. pt presented to be anxious and depressed, that is why psychiatry consultation was called, pt was seen by yesterday, this proposal lead writer is covering for him today. pt was seen and examined on HD today, pt presented to be depressed and tired, pt said that she feels anxious as well. Pt said started Xanax and she feels "better on it", as per orders pt also was started on lexapro, pt said that at times she sees bugs, for what ordered Risperdal PRN. pt said that she feels depressed because of her medical condition, at times "I feel tired of all these", pt was tearful. emotional support and empathic listening provided. pt said that she cannot sleep "at all". pt was educated about risk, benefits and alternatives of meds, pt was offered Seroquel for psychosis, depression, pt also might benefit from the side effect of this medication -somnolence (pt has insomnia). Notes from / reviewed. MSE: pt was tearful and appears to be depressed, intermittent eye contact, speech was monotonic/slow/low volume, mood: "I am so tired of being sick all the time", affect was tearful and mood congruent, thought process was coherent and goal directed, thought content: "I see some bugs at times", no paranoid ideation identified, pt denied thoughts of harming self or others. I/J are fair , impulses are well controlled. Impression: r/o mood disorder due to a C r/o MDD r/o anxiety disorder due to a [facility] Plan: will continue Lexapro for depression and anxiety will continue xanax PRN will d/c Risperdal will start Seroquel 25mg hs for psychosis, mood stabilization and insomnia will f/u on this pt tomorrow will d/w on Thursday ?psychiatric transfer if pt is willing to be admitted monitor labs Past Patient History - Infectious Disease Hx of Infectious Diseases: None - Tetanus Immunizations Tetanus Immunization: Unknown - Past Social History Smoking Status: Former Smoker Alcohol: None Drugs: Denies - CARDIAC Hx Cardiac Disorders: Yes (Pulmonary Hypertension) Hx Congestive Heart Failure: Yes Hx Hypercholesterolemia: Yes Hx Hypertension: Yes - PULMONARY Hx Chronic Obstructive Pulmonary Disease (COPD): Yes - NEUROLOGICAL HX Cerebrovascular Accident: No - HEENT Hx HEENT Problems: Yes (hard of hearing) Hx Blind: No Hx Cataracts: No Hx Deafness: No Hx Difficulty Chewing: No Hx Epistaxis: No Hx Glaucoma: No Hx Macular Degeneration: No - RENAL Hx Renal Failure: No - ENDOCRINE/METABOLIC Hx Diabetes Mellitus Type 1: No Hx Diabetes Mellitus Type 2: No Hx Hypothyroidism: Yes - HEMATOLOGICAL/ONCOLOGICAL Hx Blood Disorders: Yes Hx AIDS: No Hx Anemia: Yes Hx Cancer: No Hx Chemotherapy: No Hx Cirrhosis: No Hx Hemophilia: No Hx Hepatitis A: No Hx Hepatitis B: No Hx Hepatitis C: No Hx Human Immunodeficiency Virus (HIV): No Hx Metastesis: No Hx Shingles: No Hx Sickle Cell Disease: No Hx Unexplained Bleeding: No - INTEGUMENTARY Hx Dermatological Problems: No Hx Basil Cell: No Hx Eczema: No Hx Melanoma: No Hx Psoriasis: No Hx Squamous Cell: No - MUSCULOSKELETAL/RHEUMATOLOGICAL Hx Arthritis: No - GASTROINTESTINAL Hx Gastrointestinal Disorders: Yes Hx Colostomy: No Hx Crohn's Disease: No Hx Diverticulitis: Yes Hx Gall Bladder Disease: No Hx Gastroesophageal Reflux: Yes Hx Ileostomy: No Hx Liver Failure: No Hx Pancreatitis: No HX Swallowing Problems: No Hx Ulcer: No - GENITOURINARY/GYNECOLOGICAL Hx Genitourinary Disorders: No Hx Hematuria: No Hx Incontinence: No Hx Sexually Transmitted Disorders: No Hx Urinary Tract Infection: No - PSYCHIATRIC Hx Psychophysiologic Disorder: Yes Hx Anxiety: Yes Hx Bipolar Disorder: No Hx Depression: No Hx Emotional Abuse: No Hx Hallucinations: No Hx Panic Symptoms: No Hx Paranoia: No Hx Post Traumatic Stress Disorder: No Hx Psychosis: No Hx Physical Abuse: No Hx Schizophrenia: No Hx Sexual Abuse: No - SURGICAL HISTORY Hx Surgeries: Yes Hx Amputation: No Hx Appendectomy: No Hx Cardiac Catheterization: Yes Hx Cholecystectomy: No Hx Coronary Stent: Yes Hx Gastric Bypass Surgery: No Hx Hysterectomy: No Hx Joint Replacement: No Hx Kidney Transplant: No Hx Liver Transplant: No Hx Mastectomy: No Hx Musculoskeletal Surgery: No Hx Open Heart Surgery: No Hx Orthopedic Surgery: No Hx Splenectomy: No Hx Valve Replacement: No - ANESTHESIA Hx Anesthesia: Yes Hx Anesthesia Reactions: No Hx Malignant Hyperthermia: No Meds Allergies/Adverse Reactions: Allergies Allergy/AdvReac Type Severity Reaction Status Date / Time ciprofloxacin Allergy RASH Verified 03/12/17 08:53 hydralazine Allergy RASH Verified 03/12/17 08:53 vancomycin Allergy SHORTNESS Verified 03/12/17 08:[address] dye Allergy RASH Uncoded 03/12/17 08:53 - Medications Medications: Current Medications Alprazolam (Xanax) 0.125 mg PO 1000,1600 [facility] Stop: 03/28/17 10:01 Alprazolam (Xanax) 0.5 mg PO HS PRN PRN Reason: anxiety/insomnia Amlodipine Besylate (Norvasc) 10 mg PO DAILY [facility] Last Admin: 03/20/17 11:10 Dose: 10 mg Aspirin (Aspirin Chewable) 81 mg PO DAILY [facility] Last Admin: 03/20/17 11:09 Dose: 81 mg Cinacalcet (Sensipar) 30 mg PO DAILY [facility] Last Admin: 03/20/17 11:10 Dose: 30 mg Clonidine HCl (Catapres) 0.2 mg PO TID [facility] Last Admin: 03/20/17 18:21 Dose: Not Given Clopidogrel Bisulfate (Plavix) 75 mg PO DAILY [facility] Last Admin: 03/20/17 11:09 Dose: 75 mg Escitalopram Oxalate (Lexapro) 5 mg PO DAILY [facility] Famotidine (Pepcid) 10 mg PO BID PRN PRN Reason: Pain, Mild (1-3) Last Admin: 03/19/17 09:53 Dose: 10 mg Iron Sucrose 100 mg/ Sodium (Chloride) 105 mls @ 210 mls/hr IV ONCE ONE Stop: 03/21/17 10:29 Labetalol HCl (Trandate) 100 mg PO BID [facility] Last Admin: 03/20/17 18:21 Dose: Not Given Levalbuterol HCl (Xopenex) 1.25 mg IH [id number] [facility] Last Admin: 03/21/17 07:50 Dose: Not Given Levothyroxine Sodium (Synthroid) 75 mcg PO 0600 [facility] Last Admin: 03/21/17 05:28 Dose: 75 mcg Ondansetron HCl (Zofran Inj) 4 mg IVP Q6H PRN PRN Reason: Nausea/Vomiting Last Admin: 03/20/17 18:20 Dose: 4 mg Oxycodone/Acetaminophen (Percocet 5/325 Mg Tab) 1 tab PO Q4H PRN PRN Reason: Pain, moderate (4-7) Stop: 03/21/17 23:28 Last Admin: 03/20/17 11:05 Dose: 1 tab Pantoprazole Sodium (Protonix Ec Tab) 40 mg PO 0600 [facility] Last Admin: 03/21/17 05:28 Dose: 40 mg Quetiapine Fumarate (Seroquel) 25 mg PO HS [facility] PRN Reason: Protocol Sevelamer HCl (Renagel) 1,600 mg PO 0800,1200,1700,2200 [facility] Last Admin: 03/21/17 08:03 Dose: Not Given Sildenafil Citrate (Revatio) 20 mg PO DAILY [facility] Last Admin: 03/20/17 11:11 Dose: 20 mg Results - Vital Signs Recent Vital Signs: Last Vital Signs Temp 98.6 F 03/21/17 06:00 Pulse 80 03/21/17 06:00 Resp 20 03/21/17 06:00 BP 152/66 H 03/21/17 06:00 Pulse Ox 98 03/21/17 06:00 - Labs Result Diagrams: 03/21/17 07:54 03/21/17 07:54 Labs: Laboratory Results - last 24 hr 03/21/17 03/21/17 07:54 07:54 WBC 8.5 D RBC 3.94 Hgb 11.6 L Hct 39.0 MCV 99.0 MCH 29.4 MCHC 29.7 L RDW 16.2 H Plt Count 220 MPV 10.0 Gran % 74.3 H Lymph % (Auto) 15.2 L [place] % (Auto) 8.8 H Eos % (Auto) 1.3 L Baso % (Auto) 0.4 Gran # 6.33 Lymph # 1.3 [place] # 0.8 H Eos # 0.1 Baso # 0.03 Sodium 136 Potassium 6.3 H* Chloride 95 Carbon Dioxide 24 Anion Gap 23 H BUN 74 H Creatinine 9.6 H* Est GFR ( Amer) 5 Est GFR (Non-Af Amer) 4 Random Glucose 73 Calcium 8.8 Phosphorus 10.0 H Magnesium 2.5 H Total Bilirubin 0.4 AST 30 ALT 48 Alkaline Phosphatase 210 H Total Protein 6.3 Albumin 4.0 Globulin 2.2 Albumin/Globulin Ratio 1.8
[2017-03-21] MEDS: Sildenafil 20 MG TAB PO SCH (10:32)
--- NOTE | 2017-03-21 17:57 | PN ---
DATE: 03/20/2017 SUBJECTIVE: The patient is currently seen in dialysis. She appears to be in no acute distress. We are removing 1.7 litters of fluid. Her blood pressure remains controlled. She no longer has any chest discomfort Likely her potassium level will fall back to normal. MEDICATION: Medication list reviewed, the patient is currently on: 1. Aspirin. 2. Catapres. 3. Lexapro. 4. Norvasc. 5. Pepcid. 6. Percocet p.r.n. 7. Plavix. 8. Protonix. 9. Renagel. 10. Revatio. 11. Risperdal. 12. Sensipar. 13. Synthroid. 14. Trandate. 15. Xanax. 16. Xopenex. 17. Zofran p.r.n. OBJECTIVE: INTAKE/OUTPUT: Intake 660, output 200. VITAL SIGNS: Presently on dialysis. Blood pressure is 160/75, pulse is 80, respiratory rate is 20 with a temperature of 98.6. HEENT: Shows to be normocephalic atraumatic. Conjunctiva are pink. Sclerae nonicteric. NECK: Supple, no neck vein distension. CHEST: Clear to auscultation on percussion. No rales. No rhonchi. No wheezing. CARDIOPULMONARY: Shows irregular rate and rhythm without audible murmurs, rubs, or gallops. ABDOMEN: Soft. Bowel sound normal. No rebound. No guarding. No masses. EXTREMITIES: Show no lower extremities edema. Positive right chest wall PermCath. LABORATORY DATA AND IMAGING: Today is pre-dialysis, lab work is pending. Last available blood work shows a white blood cells count of 6.7, hemoglobin 10.9 with a platelet count of 260,000. Chemistries show sodium of 139, potassium 6.1 from two days ago. BUN 75 with a creatinine of 8.7 consistent with ESRD. Calcium 9.1, phosphorus elevated at 10.6 with a magnesium level of 2.5. ASSESSMENT: 1. End-stage renal diseases. The patient will continue Thursday, , and Thursday dialysis as per her routine. 2. History of chest pain this has resolved. 3. History of arteriosclerotic heart disease status post percutaneous transluminal coronary angioplasty and stent. 4. Cardiac situations appears to be stable. 5. History of hypertension blood pressure seems to be better controlled in the hospital on medication. 6. History of peripheral vascular disease, currently stable. 7. History of chronic obstructive pulmonary disease and pulmonary hypertension. Patient is stable on current medical therapy. 8. History of gastroesophageal reflux disease stable on proton pump inhibition therapy. 9. History of anemia. Patient will continue to receive Aranesp per protocol and dialysis. 10. History of secondary hyperparathyroidism. The patient continues on high dose Renagel therapy together with Sensipar therapy, the patient is on renal diet containing low phosphorus. 11. History of hypothyroidism, appears to be stable on thyroid replacement therapy. 12. Hyperkalemia. In all likelihood, this has resolved with dietary restriction and dialysis. PLAN: 1. Continue dialysis as per protocol. 2. Chek pre-dialysis labs done today. 3. Perhaps discharge in the next 24 hours as the patient is stable. The patient may continue outpatient dialysis and should be followed closely by us in the outpatient setting. . Sampson Hutchins MD [facility]acie
--- NOTE | 2017-03-21 18:15 | CON ---
DATE: 03/18/2017 PSYCHIATRIC CONSULTATION HISTORY OF PRESENT ILLNESS: The patient is a 56-year-old female. She was brought to the emergency room on 03/18/2017 complaining of severe shortness of breath. She also has pain in her chest when she ambulates. She gets a burning-like pain when walking a few blocks. The patient has multiple medical problems. She has history of hypertension, COPD, peripheral artery disease, pulmonary hypertension, coronary artery disease, history of [place] with stents, right carotid angioplasty, end-stage renal disease on hemodialysis, for which she has been receiving for approximately 2 years. The patient also has lower extremity pain. The patient is also complaining of severe anxiety and extreme difficulty sleeping at night, only sleeps a few hours a night. She has also been very depressed. Her family physician has prescribed various antidepressants and other tranquilizers to help stabilize her mood and anxiety without success. The patient does state last night she slept well with a 0.5 mg of Xanax at bedtime. PAST MEDICAL HISTORY: She has had no previous psychiatric treatment, although has been advised to receive such. The patient states, she is having extreme difficulty coping with hemodialysis. The patient also states that off and on in the past several days and weeks, she has had visual hallucinations, seeing bugs, spiders, and other insects in her room. Most recent was two days ago in this hospital. She saw spiders coming out from the ceiling with a spider web. SOCIAL HISTORY: She lives with her son. She has been twice. She also has a daughter, who is at her bedside. The patient, in the past, has a history of dependence on Percocet, but not recently. The patient has no history of alcohol abuse. REVIEW OF SYSTEMS: She has extreme pain in both feet. She is generally weak. She has had recent shortness of breath. Other 12-point review of system is noncontributory. PHYSICAL EXAMINATION: VITAL SIGNS: Blood pressure is 110/49, pulse 67, respirations 16 per minute. Her O2 saturation is 97% on nasal cannula. NEUROLOGIC: The patient has no obvious focal neurological findings. PSYCHIATRIC: Mental status; she is awake, she is alert. She has depressed facies, some degree of psychomotor retardation, admits being very depressed. She is oriented x3. Her recent and remote memory are currently intact. Her judgement is clouded by her depressed mood. She has no suicidal plans, but feels times she does not know why it is worth living. She has had visual hallucinations in the recent past, most recently two days ago in this hospital. LABORATORY DATA: Her white count is 6700, hemoglobin of 10.9, platelet count 260,000. Her most recent metabolic profile from yesterday; sodium 139, potassium 6.1, chloride 99, CO2 of 22, anion gap 24, BUN 75, creatinine 8.7, estimated GFR of 5, random glucose of 104, calcium 9.1, phosphorus 10.6, magnesium 2.5. Her total bilirubin, AST, and ALT were all normal. Her alk phos is 175, triglycerides 217. The patient's current medications include; Pepcid 10 mg b.i.d, p.r.n., Percocet 5/325 mg one tablet q.4 hours p.r.n., Zofran 4 mg IV q.6 hours p.r.n., Xopenex inhaler q.6 hours inhaler *------* schedule. The patient is receiving Protonix, Synthroid, Renagel, low dose chewable aspirin, Catapres t.i.d., Norvasc 10 mg daily, Plavix 75 mg daily, Revatio/sildenafil 20 mg daily, Sensipar 30 mg daily. She has an order for Xanax 0.5 mg p.o. b.i.d. p.r.n., and Trandate. IMPRESSION: The patient has major depressive disorder secondary to end-stage renal disease, pulmonary hypertension, and multiple other medical problems. The patient has a peripheral neuropathy, has chronic pain, pulmonary hypertension, and chronic obstructive pulmonary disease. PLAN: We will order Xanax 0.125 mg 10:00 a.m. and 04:00 p.m., and 0.5 mg at bedtime. We will start Lexapro 5 mg p.o. every morning. We will also leave an order for Risperdal 0.25 mg p.o. q.4 hours p.r.n. for hallucinations or psychosis, and we will closely monitor her mental status. Reji Garcia MD [facility] # [id number]
[2017-03-22] MEDS: Levalbuterol 1.25 MG/3 ML Inhal Soln UD IH SCH ×7 (01:49→19:47)
--- NOTE | 2017-03-22 02:40 | PN ---
DATE: 03/21/2017 SUBJECTIVE: The patient is 56-year-old seen and examined, sitting in chair, complain of feeling nauseous. Earlier, she had some chest discomfort, but resolved with Pepcid. PHYSICAL EXAMINATION GENERAL: She is awake and alert. VITAL SIGNS: She is afebrile, pulse 74, respirations 18, blood pressure 124/67. LUNGS: Bilateral *------*. No rhonchi or crackles. HEART: S1 and S2. Audible. ABDOMEN: Soft, nontender. No rebound and no guarding. NEUROLOGIC: The patient is awake and alert, and communicative. Complain of bilateral leg weakness. LABORATORY DATA: WBC is 8.5, hemoglobin 11.6, hematocrit 39, platelet of 220,000. Chemistry: Sodium 136, potassium 6.3, chloride 95, CO2 is 23, BUN 74, creatinine *------*, blood sugar of 73. ASSESSMENT: 1. Chest pain, noncardiac. Cardiac enzymes are negative. 2. Chronic obstructive pulmonary disease. 3. Uncontrolled hypertension. 4. Pulmonary hypertension. 5. Coronary artery disease status post angioplasty. 6. Status post carotid angioplasty. 7. Peptic ulcer disease. 8. End-stage renal disease on hemodialysis. PLAN: We will continue the patient on current medications. She is being started on Lexapro, awaiting Dr. Lucio Thomas's input for malfunctioning dialysis excess and I spoke to Dr. Lucio Thomas. He will evaluate the patient on Thursday. Brittany Coffman MD
[2017-03-22] MEDS ORDERED: Oxycodone/Acetaminophen 5/325 mg Tab PO STA (04:19)
--- NOTE | 2017-03-22 04:19 | CP.PCM.PN ---
Subjective - Date & Time of Evaluation Date of Evaluation: 03/22/17 Time of Evaluation: 04:19 - Subjective Subjective: Patient was seen at bedside because patient asked for pain medication, percocet had fallen off MARS. She has pain in entire right leg , also has numbness in right leg. States that pain is ulike pain before. Also right foot is colder than the left one. No other complaints. Medical record was reviewed. 56 year old woman was admitted with sob , chest tightness. Has PMH of [place], ESRD, anemia, HTN,COPD, PAD, pulmonary HTN, coronary stent placement. Objective - Vital Signs/Intake and Output Vital Signs (last 24 hours): Temp Pulse Resp BP Pulse Ox 98.4 F 80 18 124/67 99 03/21/17 16:00 03/21/17 17:01 03/21/17 16:00 03/21/17 17:01 03/21/17 16:00 Intake and Output: 03/21/17 03/22/17 18:59 06:59 Intake Total 420 720 Output Total 1800 Balance -1380 720 - Medications Medications: Current Medications Alprazolam (Xanax) 0.125 mg PO 1000,1600 [facility] Stop: 03/28/17 10:01 Last Admin: 03/21/17 16:22 Dose: 0.125 mg Alprazolam (Xanax) 0.5 mg PO HS PRN PRN Reason: anxiety/insomnia Amlodipine Besylate (Norvasc) 10 mg PO DAILY [facility] Last Admin: 03/21/17 10:31 Dose: 10 mg Aspirin (Aspirin Chewable) 81 mg PO DAILY [facility] Last Admin: 03/21/17 10:30 Dose: 81 mg Cinacalcet (Sensipar) 30 mg PO DAILY [facility] Last Admin: 03/21/17 10:56 Dose: 30 mg Clonidine HCl (Catapres) 0.2 mg PO TID [facility] Last Admin: 03/21/17 17:01 Dose: Not Given Clopidogrel Bisulfate (Plavix) 75 mg PO DAILY [facility] Last Admin: 03/21/17 10:31 Dose: 75 mg Escitalopram Oxalate (Lexapro) 5 mg PO DAILY [facility] Last Admin: 03/21/17 10:31 Dose: 5 mg Famotidine (Pepcid) 10 mg PO BID PRN PRN Reason: Pain, Mild (1-3) Last Admin: 03/21/17 11:38 Dose: 10 mg Labetalol HCl (Trandate) 100 mg PO BID [facility] Last Admin: 03/21/17 17:02 Dose: Not Given Levalbuterol HCl (Xopenex) 1.25 mg IH [id number] Last Admin: 03/22/17 01:49 Dose: Not Given Levalbuterol HCl (Xopenex) 1.25 mg IH [id number] [facility] Last Admin: 03/21/17 18:55 Dose: 1.25 mg Levothyroxine Sodium (Synthroid) 75 mcg PO 0600 [facility] Last Admin: 03/21/17 05:28 Dose: 75 mcg Ondansetron HCl (Zofran Inj) 4 mg IVP Q6H PRN PRN Reason: Nausea/Vomiting Last Admin: 03/21/17 10:25 Dose: 4 mg Pantoprazole Sodium (Protonix Ec Tab) 40 mg PO 0600 [facility] Last Admin: 03/21/17 05:28 Dose: 40 mg Quetiapine Fumarate (Seroquel) 25 mg PO HS [facility] PRN Reason: Protocol Last Admin: 03/21/17 21:47 Dose: 25 mg Sevelamer HCl (Renagel) 1,600 mg PO 0800,1200,1700,2200 [facility] Last Admin: 03/21/17 21:47 Dose: 1,600 mg Sildenafil Citrate (Revatio) 20 mg PO DAILY [facility] Last Admin: 03/21/17 10:32 Dose: 20 mg - Labs Labs: 03/21/17 07:54 03/21/17 07:54 PT 11.0 Seconds (9.9-11.8) 03/18/17 14:00 INR 1.02 (0.93-1.08) 03/18/17 14:00 APTT 28.0 Seconds (23.7-30.8) 03/18/17 14:00 Laboratory Last Values WBC 8.5 10^3/ul (4.5-11.0) D 03/21/17 07:54 RBC 3.94 10^6/uL (3.5-6.1) 03/21/17 07:54 Hgb 11.6 gm/dL (12.0-16.0) L 03/21/17 07:54 Hct 39.0 % (36.0-48.0) 03/21/17 07:54 MCV 99.0 fL (80.0-105.0) 03/21/17 07:54 MCH 29.4 pg (25.0-35.0) 03/21/17 07:54 MCHC 29.7 g/dl (31.0-37.0) L 03/21/17 07:54 RDW 16.2 % (11.5-14.5) H 03/21/17 07:54 Plt Count 220 10^3/uL (120.0-450.0) 03/21/17 07:54 MPV 10.0 fl (7.0-11.0) 03/21/17 07:54 Gran % 74.3 % (50.0-68.0) H 03/21/17 07:54 Lymph % (Auto) 15.2 % (22.0-35.0) L 03/21/17 07:54 [place] % (Auto) 8.8 % (1.0-6.0) H 03/21/17 07:54 Eos % (Auto) 1.3 % (1.5-5.0) L 03/21/17 07:54 Baso % (Auto) 0.4 % (0.0-3.0) 03/21/17 07:54 Gran # 6.33 (1.4-6.5) 03/21/17 07:54 Lymph # 1.3 (1.2-3.4) 03/21/17 07:54 [place] # 0.8 (0.1-0.6) H 03/21/17 07:54 Eos # 0.1 (0.0-0.7) 03/21/17 07:54 Baso # 0.03 K/mm3 (0.0-2.0) 03/21/17 07:54 PT 11.0 Seconds (9.9-11.8) 03/18/17 14:00 INR 1.02 (0.93-1.08) 03/18/17 14:00 APTT 28.0 Seconds (23.7-30.8) 03/18/17 14:00 Sodium 136 mmol/L (132-148) 03/21/17 07:54 Potassium 6.3 mmol/L (3.6-5.0) H* 03/21/17 07:54 Chloride 95 mmol/L (95-110) 03/21/17 07:54 Carbon Dioxide 24 mmol/L (21-33) 03/21/17 07:54 Anion Gap 23 (10-20) H 03/21/17 07:54 BUN 74 mg/dL (7-21) H 03/21/17 07:54 Creatinine 9.6 mg/dL (0.5-1.4) H* 03/21/17 07:54 Est GFR ( Amer) 5 03/21/17 07:54 Est GFR (Non-Af Amer) 4 03/21/17 07:54 Random Glucose 73 mg/dL (70-110) 03/21/17 07:54 Calcium 8.8 mg/dL (8.4-10.5) 03/21/17 07:54 Phosphorus 10.0 mg/dL (2.5-4.5) H 03/21/17 07:54 Magnesium 2.5 mg/dL (1.7-2.2) H 03/21/17 07:54 Total Bilirubin 0.4 mg/dL (0.2-1.3) 03/21/17 07:54 AST 30 U/L (15-39) 03/21/17 07:54 ALT 48 U/L (7-56) 03/21/17 07:54 Alkaline Phosphatase 210 U/L (38-133) H 03/21/17 07:54 Lactate Dehydrogenase 618 U/L (333-699) 03/18/17 16:10 Total Creatine Kinase 42 U/L (35-230) 03/18/17 16:10 Troponin I 0.06 ng/mL 03/18/17 16:10 Total Protein 6.3 g/dL (5.8-8.3) 03/21/17 07:54 Albumin 4.0 g/dL (3.0-4.8) 03/21/17 07:54 Globulin 2.2 gm/dL 03/21/17 07:54 Albumin/Globulin Ratio 1.8 (1.1-1.8) 03/21/17 07:54 Triglycerides 217 mg/dL (35-160) H 03/20/17 06:00 Cholesterol 131 mg/dL (130-200) 03/20/17 06:00 LDL Cholesterol Direct 58 mg/dL (0-129) 03/20/17 06:00 HDL Cholesterol 28 mg/dL (29-60) L 03/20/17 06:00 Lipase 86 U/L (23-300) 03/18/17 16:10 - Constitutional Appears: Well, No Acute Distress - Head Exam Head Exam: ATRAUMATIC, NORMAL INSPECTION, NORMOCEPHALIC - Eye Exam Eye Exam: Normal appearance - ENT Exam ENT Exam: Normal External Ear Exam - Neck Exam Neck Exam: Normal Inspection - Respiratory Exam Respiratory Exam: NORMAL BREATHING PATTERN - Cardiovascular Exam Cardiovascular Exam: absent: JVD - GI/Abdominal Exam GI & Abdominal Exam: absent: Distended - Rectal Exam Rectal Exam: Deferred - Exam Additional comments: Deferred. - Extremities Exam Additional comments: Right foot skin is colder than left foot. Dorsalis Pedis pulse not picked up on both sides by doppler. - Back Exam Back Exam: NORMAL INSPECTION - Neurological Exam Neurological Exam: Alert, Oriented x3 - Psychiatric Exam Psychiatric exam: Normal Affect, Normal Mood - Skin Additional comments: See elsewhere. Assessment and Plan - Assessment and Plan (Free Text) Assessment: Right foot pain. Right foot coldness. Right leg numbness. Peripheral arterial disease. HTN. COPD. Pulmonary HTN. ESRD. Anxiety. Plan: Dilaudid 0.5 mg IV q4h x 2. Bilateral arterial doppler study. Continue present management as per PMD.
[2017-03-22] MEDS: HYDROmorphone 0.5 mg/0.5 ml ISec IVP PRN ×2 (04:56→08:57)
[2017-03-22] MEDS: Levothyroxine 75 MCG TAB PO SCH (05:59)
[2017-03-22] MEDS: Pantoprazole 40 mg EC Tab PO SCH (05:59)
[2017-03-22] MEDS: Sildenafil 20 MG TAB PO SCH (09:52)
--- NOTE | 2017-03-22 11:28 | CP.PCM.CON ---
History of Present Illness - History of Present Illness History of Present Illness: follow-up note,this keno writer / runner is covering for . Patient is a 56 y/o with multiple medical issues including pmh of htn, COPD, PAD , Pulm htn, CAD, MA with stents, right carotid angioplasty, ESRD on hemodyalisis ( t, th, sat), who admitted on the medical floor for evaluation of shortness of breath and LE pain. pt presented to be anxious and depressed, that is why psychiatry consultation was called, pt was seen by yesterday, this keno writer / runner is covering for him today. pt was seen and examined in her room today, pt presented to be less depressed was less tearful, pt said that she feels "little better" today. Pt said started Xanax and she feels "better on it", this keno writer / runner implemented seroquel yesterday for hallucinations, mood stabilization and insomnia, but pt said she would prefer to be on xanax 0.5mghs, will resume it and seroquel will be d/c. pt asked to be f/u with in the community, pt was advised to speak to him on Thursday. pt was educated about risk, benefits and alternatives of meds Notes from / reviewed. MSE: pt was calm, cooperative, appeared less depressed, intermittent eye contact , speech was monotonic/slow/low volume, mood: "I am little better", affect was constricted but reactive, mood congruent, thought process was coherent and goal directed, thought content: pt denied v/a/t hallucinations, no paranoid ideation identified, pt denied thoughts of harming self or others. I/J are fair, impulses are well controlled. Impression: r/o mood disorder due to a [facility] r/o MDD r/o anxiety disorder due to a [facility] Plan: will continue Lexapro for depression and anxiety will continue xanax PRN, and 0.25mg hs for insomnia d/c Risperdal pt denied any hallucinations d/c Seroquel pt denied any hallucinations will f/u on this pt on Thursday ?psychiatric transfer if pt is willing to be admitted monitor labs Past Patient History - Infectious Disease Hx of Infectious Diseases: None - Tetanus Immunizations Tetanus Immunization: Unknown - Past Social History Smoking Status: Former Smoker Alcohol: None Drugs: Denies - CARDIAC Hx Cardiac Disorders: Yes (Pulmonary Hypertension) Hx Congestive Heart Failure: Yes Hx Hypercholesterolemia: Yes Hx Hypertension: Yes - PULMONARY Hx Chronic Obstructive Pulmonary Disease (COPD): Yes - NEUROLOGICAL HX Cerebrovascular Accident: No - HEENT Hx HEENT Problems: Yes (hard of hearing) Hx Blind: No Hx Cataracts: No Hx Deafness: No Hx Difficulty Chewing: No Hx Epistaxis: No Hx Glaucoma: No Hx Macular Degeneration: No - RENAL Hx Renal Failure: No - ENDOCRINE/METABOLIC Hx Diabetes Mellitus Type 1: No Hx Diabetes Mellitus Type 2: No Hx Hypothyroidism: Yes - HEMATOLOGICAL/ONCOLOGICAL Hx Blood Disorders: Yes Hx AIDS: No Hx Anemia: Yes Hx Cancer: No Hx Chemotherapy: No Hx Cirrhosis: No Hx Hemophilia: No Hx Hepatitis A: No Hx Hepatitis B: No Hx Hepatitis C: No Hx Human Immunodeficiency Virus (HIV): No Hx Metastesis: No Hx Shingles: No Hx Sickle Cell Disease: No Hx Unexplained Bleeding: No - INTEGUMENTARY Hx Dermatological Problems: No Hx Basil Cell: No Hx Eczema: No Hx Melanoma: No Hx Psoriasis: No Hx Squamous Cell: No - MUSCULOSKELETAL/RHEUMATOLOGICAL Hx Arthritis: No - GASTROINTESTINAL Hx Gastrointestinal Disorders: Yes Hx Colostomy: No Hx Crohn's Disease: No Hx Diverticulitis: Yes Hx Gall Bladder Disease: No Hx Gastroesophageal Reflux: Yes Hx Ileostomy: No Hx Liver Failure: No Hx Pancreatitis: No HX Swallowing Problems: No Hx Ulcer: No - GENITOURINARY/GYNECOLOGICAL Hx Genitourinary Disorders: No Hx Hematuria: No Hx Incontinence: No Hx Sexually Transmitted Disorders: No Hx Urinary Tract Infection: No - PSYCHIATRIC Hx Psychophysiologic Disorder: Yes Hx Anxiety: Yes Hx Bipolar Disorder: No Hx Depression: No Hx Emotional Abuse: No Hx Hallucinations: No Hx Panic Symptoms: No Hx Paranoia: No Hx Post Traumatic Stress Disorder: No Hx Psychosis: No Hx Physical Abuse: No Hx Schizophrenia: No Hx Sexual Abuse: No - SURGICAL HISTORY Hx Surgeries: Yes Hx Amputation: No Hx Appendectomy: No Hx Cardiac Catheterization: Yes Hx Cholecystectomy: No Hx Coronary Stent: Yes Hx Gastric Bypass Surgery: No Hx Hysterectomy: No Hx Joint Replacement: No Hx Kidney Transplant: No Hx Liver Transplant: No Hx Mastectomy: No Hx Musculoskeletal Surgery: No Hx Open Heart Surgery: No Hx Orthopedic Surgery: No Hx Splenectomy: No Hx Valve Replacement: No - ANESTHESIA Hx Anesthesia: Yes Hx Anesthesia Reactions: No Hx Malignant Hyperthermia: No Meds Allergies/Adverse Reactions: Allergies Allergy/AdvReac Type Severity Reaction Status Date / Time ciprofloxacin Allergy RASH Verified 03/12/17 08:53 hydralazine Allergy RASH Verified 03/12/17 08:53 vancomycin Allergy SHORTNESS Verified 03/12/17 08:[address] dye Allergy RASH Uncoded 03/12/17 08:53 - Medications Medications: Current Medications Alprazolam (Xanax) 0.125 mg PO 1000,1600 [facility] Stop: 03/28/17 10:01 Last Admin: 03/22/17 10:00 Dose: Not Given Alprazolam (Xanax) 0.5 mg PO [facility] Amlodipine Besylate (Norvasc) 10 mg PO DAILY [facility] Last Admin: 03/22/17 09:47 Dose: Not Given Aspirin (Aspirin Chewable) 81 mg PO DAILY [facility] Last Admin: 03/22/17 09:52 Dose: 81 mg Cinacalcet (Sensipar) 30 mg PO DAILY [facility] Last Admin: 03/22/17 09:52 Dose: 30 mg Clonidine HCl (Catapres) 0.2 mg PO TID [facility] Last Admin: 03/22/17 09:47 Dose: Not Given Clopidogrel Bisulfate (Plavix) 75 mg PO DAILY [facility] Last Admin: 03/22/17 09:52 Dose: 75 mg Escitalopram Oxalate (Lexapro) 5 mg PO DAILY [facility] Last Admin: 03/22/17 09:52 Dose: 5 mg Famotidine (Pepcid) 10 mg PO BID PRN PRN Reason: Pain, Mild (1-3) Last Admin: 03/21/17 11:38 Dose: 10 mg Labetalol HCl (Trandate) 100 mg PO BID [facility] Last Admin: 03/22/17 09:48 Dose: Not Given Levalbuterol HCl (Xopenex) 1.25 mg [facility] [id number] [facility] Last Admin: 03/22/17 07:19 Dose: 1.25 mg Levalbuterol HCl (Xopenex) 1.25 mg [facility] [id number] [facility] Last Admin: 03/22/17 08:29 Dose: Not Given Levothyroxine Sodium (Synthroid) 75 mcg PO 0600 [facility] Last Admin: 03/22/17 05:59 Dose: 75 mcg Ondansetron HCl (Zofran Inj) 4 mg IVP Q6H PRN PRN Reason: Nausea/Vomiting Last Admin: 03/21/17 10:25 Dose: 4 mg Pantoprazole Sodium (Protonix Ec Tab) 40 mg PO 0600 [facility] Last Admin: 03/22/17 05:59 Dose: 40 mg Sevelamer HCl (Renagel) 1,600 mg PO 0800,1200,1700,2200 [facility] Last Admin: 03/22/17 08:57 Dose: 1,600 mg Sildenafil Citrate (Revatio) 20 mg PO DAILY [facility] Last Admin: 03/22/17 09:52 Dose: 20 mg Results - Vital Signs Recent Vital Signs: Last Vital Signs Temp 98.7 F 03/22/17 07:30 Pulse 92 H 03/22/17 09:48 Resp 20 03/22/17 07:30 BP 119/63 03/22/17 09:48 Pulse Ox 98 03/22/17 07:30 - Labs Result Diagrams: 03/21/17 07:54 03/21/17 07:54
[2017-03-22] MEDS ORDERED: HYDROmorphone 0.5 mg/0.5 ml ISec IVP STA (20:47)
[2017-03-23] MEDS: Levalbuterol 1.25 MG/3 ML Inhal Soln UD IH SCH ×8 (02:06→19:15)
[2017-03-23] MEDS ORDERED: HYDROmorphone 0.5 mg/0.5 ml ISec IVP STA (02:11)
[2017-03-23] MEDS: Levothyroxine 75 MCG TAB PO SCH (05:07)
[2017-03-23] MEDS: Pantoprazole 40 mg EC Tab PO SCH (05:07)
--- NOTE | 2017-03-23 11:15 | US ---
PROCEDURE: Lower extremity BROOKE exam HISTORY: Peripheral vascular disease with pain and severe claudication. End-stage renal disease. Previous smoker. Hypertension. PHYSICIAN(S): Lucio Thomas MD. FINDINGS: The PVR waveforms are severely depressed and flat at all levels. Segmental pressures are not obtainable. The resting ABIs are not obtainable. IMPRESSION: 1. Severely abnormal and flat PVR waveforms bilaterally at all levels. Findings are consistent with multilevel occlusive disease including aortoiliac disease. 2. The segmental pressures are unobtainable at multiple levels.
[2017-03-23] MEDS: Sildenafil 20 MG TAB PO SCH (11:42)
--- NOTE | 2017-03-23 11:51 | PN ---
SUBJECTIVE: The patient is 56 years old, seen and examined, complaining of right leg pain. She states her right leg is tingling as if it is sleeping. Denies any pain. She also complains of pain in the right chest area at the site of hemodialysis catheter. PHYSICAL EXAMINATION: VITAL SIGNS: She is afebrile. Pulse 98, respirations 20, blood pressure 138/69. LUNGS: Bilateral fair airflow. No rhonchi or crackles. HEART: S1 and S2 audible. ABDOMEN: Soft, nontender. No rebound, no guarding. NEUROLOGIC: She is awake and alert, communicative. EXTREMITIES: Her right leg below knee seems to be colder as compared to the left one and dorsalis pedis not felt. ASSESSMENT: 1. Non-cardiac chest pain. 2. Peripheral vascular disease, rule out popliteal and superior femoral artery stenosis. 3. End-stage renal disease, on hemodialysis. 4. Hypertension. 5. Chronic anemia. PLAN: Her arterial Doppler has been requested. We will continue her on current medications. Spoke to Dr. Lucio Thomas who will evaluate the patient in a.m. Brittany Coffman MD
[2017-03-23] MEDS: HYDROmorphone 0.5 mg/0.5 ml ISec IVP PRN ×2 (12:27→15:57)
[2017-03-23] MEDS ORDERED: Lidocaine 2% Inj (20ml) ONE (13:44)
[2017-03-23] MEDS ORDERED: DiphenhydrAMINE 50 mg/ml Inj ONE (13:45)
[2017-03-23] MEDS ORDERED: Iodixanol 320 MG/ML 100 ML BOTTLE IV ONE ×2 (13:45→15:19)
[2017-03-23] MEDS ORDERED: Midazolam 2 MG/2 ML VIAL ONE (15:25)
--- NOTE | 2017-03-23 18:18 | PN ---
DATE: SUBJECTIVE: The patient is a 56-year-old female admitted originally to the hospital for severe shortness of breath. The patient has had problem with chronic and recurrent depression. Over the past year, she has also had extreme difficulty sleeping. She has been on multiple antidepressant medications with either adverse effects or no response. The patient's other medical problems include peripheral vascular disease, endstage renal disease on hemodialysis, hypertension, and chronic anemia. The patient is currently being stabilized by her primary care physicians. The patient had an ultrasound of the extremities on 03/22/2017 that showed severe abnormal flat PVR waves bilaterally at all levels consistent with multilevel occlusive disease including aortoiliac disease. CURRENT MEDICATIONS: Includes low dose aspirin, Catapres, p.r.n. Dilaudid for leg pain, Lexapro 5 mg daily, Norvasc, Pepcid, Plavix, Protonix, Renagel, *------*, Sensipar, levothyroxine, Xanax 0.125 mg b.i.d. and 0.5 mg at bedtime, Xopenex inhaler. REVIEW OF SYSTEMS: Leg pain,general weakness. Other 10 point review non-contributory. MENTAL STATUS: Reveals she has depressed facies. She admits to being depressed, but sleeping better, less anxious, oriented x3, recent and remote memory intact. No suicidal ideation. No psychotic symptomatology. VITAL SIGNS: Blood pressure is 151/59, pulse 84, respirations 20 per minute, O2 saturation of 97% on nasal cannula. LABORATORY DATA: She has no other current laboratory data to review. IMPRESSION: She has major depressive disorder secondary to severe endstage renal disease, hemodialysis. The patient has generalized anxiety with severe peripheral vascular disease. The patient has history of hypertension and chronic anemia. PLAN: Continue Xanax 0.125 mg daily and 0.5 mg at bedtime. Continue Lexapro 5 mg p.o. q. a.m. We will continue to monitor mental status. Reji Garcia MD [facility]
--- NOTE | 2017-03-23 18:44 | VASCULAR ---
PROCEDURE: 1. Left upper extremity venogram HISTORY: End-stage renal disease. Failed right upper extremity access. Evaluate left upper extremity veins for AV fistula. PHYSICIAN(S): Lucio Thomas MD. TECHNIQUE: The relative risks and indications of the procedure were explained to the patient and consent obtained. The patient was placed supine on the angiography table and the left arm prepped and draped usual sterile fashion. Through a small IV at the left wrist, limited images of the forearm were obtained. Under fluoroscopic guidance, the left basilic vein was punctured above the elbow and a 5 Iraqi micropuncture sheath placed. No overlapping left upper extremity venogram was performed with central venous imaging. The patient tolerated the procedure well. FINDINGS: The patient is veins are small in caliber. The left cephalic vein is patent in the forearm but small. Left cephalic vein above the elbow appears occluded. There are collaterals the left basilic and brachial system. The left basilic vein above the elbow is patent. The left axillary vein, left subclavian vein, left innominate vein, and SVC are widely patent and normal. A tunneled catheter is noted in the right internal jugular vein. IMPRESSION: 1. Small caliber veins. 2. Patent left basilic vein above the elbow. 3. Patent central veins.
--- NOTE | 2017-03-24 02:27 | PN ---
DATE OF CONSULTATION: 03/23/2017 HISTORY OF PRESENTING ILLNESS: The patient is seen sitting in bed. She is groggy. She is arousable. She reports that her breathing is better. Her chest tightness is better. She complains of nausea. She also complains of pain in her lower extremity, right more than left. PHYSICAL EXAMINATION: GENERAL: Middle-aged lady, sitting in bed. VITAL SIGNS: Blood pressure 121/59, heart rate 84, respiratory rate 20, temperature is 98.2. HEENT: Normocephalic, atraumatic. Positive pallor. NECK: Supple. No JVD. LUNGS: Bilateral equal air entry. Bilateral rhonchi. No rales. CARDIAC: S1 and S2. Regular rate and rhythm. No murmur. No rubs. ABDOMEN: Soft, nondistended, nontender. Bowel sounds present. EXTREMITIES: No lower extremity edema. INTAKE AND OUTPUT: Not charted. LABORATORY DATA: WBC 8.5, hemoglobin 11.6, hematocrit 39, platelets 220. Sodium 136, potassium 6.3. She has had no new labs. Lower extremity arterial Doppler is showing severely abnormal and flat PVR waveforms bilaterally. Multilevel occlusive disease including aortoiliac disease. ASSESSMENT: 1. End-stage renal disease. 2. Coronary artery disease. 3. Severe generalized atherosclerotic disease. 4. Hypertension. 5. Chronic obstructive pulmonary disease. 6. Gastroesophageal reflux disease. 7. Secondary hyperparathyroidism. PLAN: 1. Dialysis tomorrow. 2. Lower extremity angiogram? 3. Arterial angiogram of the upper extremity. Tamanna Smith MD
[2017-03-24] MEDS ORDERED: DiphenhydrAMINE 50 mg/ml Inj IVP ONE ×2 (07:00→08:47)
[2017-03-24] MEDS: Levalbuterol 1.25 MG/3 ML Inhal Soln UD IH SCH ×4 (07:29→19:45)
[2017-03-24] MEDS: Levothyroxine 75 MCG TAB PO SCH (07:37)
[2017-03-24] MEDS: Pantoprazole 40 mg EC Tab PO SCH (07:37)
[2017-03-24] MEDS ORDERED: Iodixanol 320 mg/ml 150 ml Bottle IV ONE (08:46)
[2017-03-24] MEDS: HYDROmorphone 0.5 mg/0.5 ml ISec IVP PRN ×3 (08:51→21:19)
[2017-03-24 10:27] LABS: GRAN # 6.02 (1.4-6.5); GRAN % 79.9 % (50.0-68.0); HEMOGLOBIN 9.8 gm/dL (12.0-16.0); LYMPH % 12.7 % (22.0-35.0); MEAN CELL VOLUME 100.3 fL (80.0-105.0); MEAN CORPUSCULAR HEMOGLOBIN 28.9 pg (25.0-35.0); MEAN CORPUSCULAR HGB CONC 28.8 g/dl (31.0-37.0); MEAN PLATELET VOLUME 10.3 fl (7.0-11.0); MONO # 0.6 (0.1-0.6); MONO % 7.4 % (1.0-6.0); PLATELET COUNT 214 10^3/uL (120.0-450.0); RBC 3.39 10^6/uL (3.5-6.1); RED CELL DISTRIBUTION WIDTH 16.8 % (11.5-14.5); WHITE BLOOD COUNT 7.5 10^3/ul (4.5-11.0)
[2017-03-24 10:34] LABS: ALB/GLOB RATIO 1.5 (1.1-1.8); ALBUMIN 3.5 g/dL (3.0-4.8); CALCIUM 8.1 mg/dL (8.4-10.5); MAGNESIUM 2.7 mg/dL (1.7-2.2)
--- NOTE | 2017-03-24 11:22 | CT ---
PROCEDURE: CT Angiography Abdomen, Pelvis and Lower Extremity with Contrast HISTORY: PVD with rest pain. ESRD. Do in AM then dialysis COMPARISON: None. TECHNIQUE: Technique: CT angiography of the abdomen, pelvis and bilateral lower extremities performed in the arterial phase of enhancement. Coronal and sagittal reformats, and well as rotating MIP images of the vessels generated at the workstation. Intravenous contrast dose: 150 cc of Visipaque Radiation dose: Total exam DLP = 802 mGy-cm. This CT exam was performed using one or more of the following dose reduction techniques: Automated exposure control, adjustment of the mA and/or kV according to patient size, and/or use of iterative reconstruction technique. FINDINGS: CT ANGIOGRAPHY: ABDOMINAL AORTA:: The aorta is heavily calcified. There is mural thrombus. There is a focal chronic dissection in the distal aorta MAJOR AORTIC BRANCHES: Celiac Argyle: Unremarkable. Superior mesenteric artery: Unremarkable. Inferior mesenteric artery: Not visualized Renal arteries: Heavily calcified. Proximal stenosis. Atrophy of the kidneys consistent with the ESRD PELVIC ARTERIES: Right Common Iliac: Unremarkable. Right External Iliac: Unremarkable. Right Internal Iliac: Unremarkable. Left Common Iliac: Unremarkable. Left External Iliac: Unremarkable. Left Internal Iliac: Occluded RIGHT LOWER EXTREMITY ARTERIES: Right Common Femoral: Occluded Right Superficial Femoral: Occluded Right Profunda Femoris: Stenotic and calcified. Reconstituted via epigastric and pelvic collaterals Right Popliteal:Reconstituted Right Anterior Tibial: Unremarkable. Right Tibioperoneal Trunk: Unremarkable. Right Posterior Tibial: Unremarkable. Right Peroneal: Unremarkable. Right dorsalis pedis : Unremarkable. LEFT LOWER EXTREMITY ARTERIES: Left Common Femoral: Occluded Left Superficial Femoral: Occluded Left Profunda Femoris: Stenotic reconstituted via epigastric and pelvic collaterals Left Popliteal: Unremarkable. Left Anterior Tibial: Unremarkable. Left Tibioperoneal Trunk: Unremarkable. Left Posterior Tibial: Unremarkable. Left Peronea: Unremarkable. Left Dorsalis pedis: Unremarkable. NON-ANGIOGRAPHIC ASPECT OF THE EXAM: LOWER THORAX: Unremarkable. LIVER: Fatty infiltration of the liver GALLBLADDER AND BILE DUCTS: Unremarkable. PANCREAS: Unremarkable. No gross lesion or ductal dilatation. SPLEEN: Unremarkable. ADRENALS: Unremarkable. No mass. KIDNEYS AND URETERS: Atrophic kidneys STOMACH AND BOWEL: Unremarkable. No obstruction. No gross mural thickening. APPENDIX: Normal appendix. PERITONEUM: Unremarkable. No free fluid. No free air. LYMPH NODES: Unremarkable. No enlarged lymph nodes. BLADDER: Unremarkable. REPRODUCTIVE: Left adnexal cyst measuring 3 x 5 cm BONES: No acute fracture. OTHER FINDINGS: None. IMPRESSION: Occlusion of the common femorals and superficial femoral arteries. The profunda femora is is reconstituted the at pelvic and epigastric collaterals bilaterally. Reconstitution of the popliteals bilaterally. Distal circulation to ankles unremarkable
[2017-03-24] MEDS: Sildenafil 20 MG TAB PO SCH (14:01)
[2017-03-24] MEDS: POLYETHYLENE GLYCOL 3350 17 GM/Dose PACKET PO SCH (14:01)
--- NOTE | 2017-03-24 17:46 | PN ---
DATE: SUBJECTIVE: The patient is 56 years old seen and examined while in dialysis, complaint of right leg pain, is numb and tingling, evaluated by Dr. Lucio Thomas, plan for angiography and possible angioplasty in a.. PHYSICAL EXAMINATION: GENERAL: She is complaining of leg pain and complaining of chest pain and right arm pain. VITAL SIGNS: She is afebrile associated with respiration 20, and blood pressure 140/53. LUNGS: Bilateral fair air flow. No rhonchi or crackles. HEENT: S1 and S2, audible. ABDOMEN: Soft and nontender. No rebound. No guarding. NEUROLOGIC: The patient is awake, alert, and communicative, able to move all extremities, has difficulty walking with her right leg pain and numbness. LABORATORY EXAMINATION: WBC 7.5. hemoglobin 9.8, hematocrit 34, platelets 214. Chemistry; sodium 137, potassium 6.6, chloride 102, CO2 of 23, BUN 82, creatinine 11.7. Blood sugar of 84. The patient had angiography done that shows occlusion of common femoral superficial femoral artery, profunda femoral is reconstituted at the pelvis, and distal circulation is unremarkable. ASSESSMENT: 1. Right leg pain secondary to peripheral vascular disease. 2. End-stage renal disease, on hemodialysis. 3. Coronary artery disease, status post angioplasty. 4. Chronic obstructive pulmonary disease. 5. Gastroesophageal reflux disease. 6. Deconditioning and difficulty walking. PLAN: Possible angioplasty and fistula formation on the left upper extremity. We will discuss with Dr. Lucio Thomas for further detail. For now, she will get her hemodialysis today, analgesic as needed, and I will follow up this patient in a.m. Brittany Coffman MD
--- NOTE | 2017-03-25 02:24 | PN ---
SUBJECTIVE: The patient is currently seen post completion of dialysis. Her dialysis was uneventful. Of note, her pre-dialysis potassium is once again elevated at 6.6. This is despite the patient attempting to adhere to a renal hospital diet, which is low potassium. The patient is taking no medications which would raise her potassium level. MEDICATIONS: Medication list reviewed. The patient is currently on aspirin, Catapres, Dilaudid, Lexapro, MiraLax, Norvasc, Pepcid, Plavix, Protonix, Renagel, Revatio, Sensipar, Synthroid, Trandate, Xanax, Xopenex, and Zofran p.r.n. OBJECTIVE: Intake/Output: Intake 1240, output 0. VITAL SIGNS: Blood pressure post dialysis 140/67. Temperature 98.6, respiratory rate 20 with a pulse of 82. HEENT: Normocephalic, atraumatic. Conjunctivae are pink. Sclerae are nonicteric. NECK: Supple. No neck vein distention. LUNGS: Chest is clear to auscultation and percussion. No rales. No rhonchi. No wheezing. CARDIOVASCULAR: Shows a regular rate and rhythm without murmurs, rubs, or gallops noted. ABDOMEN: Soft. Bowel sounds normal. No rebound, no guarding, no masses. EXTREMITIES: Show no lower extremity edema. Positive right chest wall PermCath. No cyanosis or clubbing. LAB DATA AND IMAGING: Labs today, CBC, white blood cell count 7.5, hemoglobin 9.8 with a platelet count of 214,000. Coags are normal. Chemistries show a sodium of 137, potassium of 6.6, chloride 102 with CO2 of 19, anion gap 23, BUN 82 with a creatinine of 11.7, calcium 8.1 with an albumin of 3.5. Corrected calcium is 8.4. Phosphorus is 8.0 down from a high of 10.6. Magnesium is 2.7. Mild elevation of her AST and ALT. Alkaline phosphatase 194, bilirubin level is normal. IMAGING STUDIES: Abdominal angiography shows occlusion of common femorals and superficial femoral arteries, profunda femoris is reconstituted. The patient has pelvic and epigastric collaterals bilaterally. Reconstitution of the popliteal bilaterally. Distal circulation to the ankles is unremarkable. Ultrasound of the lower extremity showed severely abnormal and flat PVR waveforms bilaterally. This was consistent with multi-level occlusive disease. Left extremity venogram for evaluation of a possible new dialysis access showed small caliber veins, patent left diastolic vein above the elbow and patent central veins. ASSESSMENT: 1. End-stage renal disease. The patient will continue Thursday, , Thursday dialysis as per routine. 2. Hyperkalemia. Despite the patient being on no medications which could raise her potassium level and despite her adhering to a low potassium, renal diet in the hospital, potassium level continues to be elevated. The patient is dialyzing on a 1.0 K bath. There is a possibility that the patient might need to take Kayexalate on non-dialysis days to help keep her potassium level in a normal range. I will pursue this with her further if her potassium level remains elevated. 3. History of arteriosclerotic heart disease status post percutaneous transluminal coronary angioplasty and stent. 4. History of hypertension. Blood pressure control is fair at best. 5. History of peripheral vascular disease. The patient is undergoing further workup of peripheral vascular disease of her lower extremity. 6. History of chronic obstructive pulmonary disease and pulmonary hypertension, currently stable on medical therapy. 7. History of gastroesophageal reflux disease, stable on proton pump inhibition therapy. 8. History of anemia secondary to chronic kidney disease, currently stable. 9. History of severe secondary hyperparathyroidism. The patient is really noncompliant with her binders and diet at home. Her phosphorus level is slowly falling, so continue non-calcium based binder therapy 2/2 high calcium phosphorus product. 10. History of hypothyroidism. The patient appears to be stable on thyroid replacement and hormone therapy. PLAN 1. Once again stressed to the patient the need to be compliant with medication and dietary restrictions. 2. Continue Thursday, , Thursday dialysis. 3. Continue evaluation of her lower extremity peripheral vascular disease. 4. PRN consideration for using Kayexalate 30 g and sorbitol on non-dialysis days if her potassium level continues to remain above 6.0. Sampson Hutchins MD [facility]
[2017-03-25] MEDS: Levalbuterol 1.25 MG/3 ML Inhal Soln UD IH SCH ×4 (02:45→19:55)
[2017-03-25] MEDS: HYDROmorphone 0.5 mg/0.5 ml ISec IVP PRN ×4 (05:12→20:45)
[2017-03-25] MEDS: Pantoprazole 40 mg EC Tab PO SCH (05:31)
[2017-03-25] MEDS: Levothyroxine 75 MCG TAB PO SCH (05:31)
[2017-03-25] MEDS: Sildenafil 20 MG TAB PO SCH (10:25)
[2017-03-25] MEDS: POLYETHYLENE GLYCOL 3350 17 GM/Dose PACKET PO SCH (10:30)
--- NOTE | 2017-03-25 18:31 | PN ---
DATE: SUBJECTIVE: The patient is currently seen on 5R. She is in no acute distress. She is status post dialysis yesterday. She states she is going to have further vascular studies of her lower extremity tomorrow prior to her scheduled dialysis treatment. MEDICATION: Medication list reviewed, the patient is currently on aspirin, clonidine, Dilaudid, Lexapro, Miralax, Norvasc, Pepcid, Plavix, Protonix, Renagel, Revatio, Sensipar, Synthroid, Trandate, Xanax, Xopenex, and Zofran. OBJECTIVE: INTAKE/OUTPUT: Intake 780, output dialysis. VITAL SINGS: Blood pressure 149/65, temperature 98.4, respiratory rate is 20 with a pulse of 82. HEENT: Shows head to be normocephalic, atraumatic. Conjunctiva are pale. Sclerae are nonicteric. NECK: Supple, no neck vein distension. CHEST: Clear to auscultation on percussion. No rales. No rhonchi. No wheezing. CARDIOPULMONARY: Shows regular rate and rhythm without murmurs, rubs, or gallops. ABDOMEN: Soft. Bowel sound normal. No rebound. No guarding. No masses. EXTREMITIES: Show no lower extremity edema. Positive right chest wall PermCath. No cyanosis or clubbing LABORATORY DATA: CBC from yesterday, white blood cell count of 7.5, hemoglobin 9.8 with a platelet count of 214,000. Chemistries from yesterday showed a potassium of 6.6, BUN 82 with a creatinine of 11.7. Mild elevation of her liver enzymes. Calcium was 8.1, phosphorus was 8.0, which is actually lower on binder therapy, magnesium 2.7, albumin was 3.5. IMAGING STUDIES: Previously done abdominal angiography showed occlusion of her common femoral and superficial femoral arteries, profunda femoris is reconstituted. The patient had pelvic and epigastric collaterals bilaterally. Reconstitution of the popliteal bilaterally. Distal circulation to the ankles was felt to be unremarkable. Ultrasound of her lower extremity showed severely abnormal and flat PVR waveforms bilaterally consistent with multi-level occlusive vascular disease. Her left upper extremity venogram for evaluation of a possible new dialysis access showed small caliber veins, a patent left basilic vein above the elbow and patent central veins. ASSESSMENT: 1. End-stage renal disease. The patient will continue Thursday, , Thursday dialysis. 2. Hyperkalemia. The patient is adhering to a low potassium diet. She is dialyzing on a 1.0 K bath. There are no medications that she is taking that would elevate her potassium level. I did discuss with her the possibility of needing to take Kayexalate on non-dialysis days if her potassium level continues to remain above 6.0. 3.. History of arteriosclerotic heart disease status post percutaneous transluminal coronary angioplasty and stent. 4. History of hypertension. Blood pressure control is better during present hospitalization. 5. .History of peripheral vascular disease as noted about. The patient is undergoing further workup. 6. History of chronic obstructive pulmonary disease and pulmonary hypertension, currently stable on current medical therapy. 7. History of gastroesophageal reflux disease, stable on proton pump inhibition therapy. 8. History of anemia secondary to chronic kidney disease, currently stable. 9. History of severe secondary hyperparathyroidism. The patient is back on a renal diet together with binder therapy. I expect to see her phosphorus level fall towards a normal and acceptable range. 10. History of hypothyroidism. The patient is stable on thyroid replacement therapy hormone. PLAN: 1. Hemodialysis scheduled together with a possible vascular procedure so that the dye could be removed with dialysis. 2. Cautioned patient about watching the posticum in her diet during hospitalization and post hospitalization. 3. Discussed with the patient the possibility of using Kayexalate on non-dialysis days to help keep her potassium lever less than 6. Sampson Hutchins MD
[2017-03-25] MEDS: HYDROmorphone 1 mg/ml ISec IVP PRN (22:30)
--- NOTE | 2017-03-25 23:25 | PN ---
SUBJECTIVE: The patient is a 56-year-old female, currently being followed psychiatrically for severe depression and insomnia. She has multiple medical problems including end-stage renal disease with hemodialysis and peripheral vascular disease. The patient's mental status today, which shows that she is awake, alert, coherent with somewhat depressed facies. She states she falls asleep okay, but wakes up on multiple occasions for an half hour to an hour during the night. The patient is oriented x3. Her recent remote memory is intact. Denies suicidal ideation. CURRENT MEDICATIONS: Psychotropic medicines include alprazolam 0.125 mg b.i.d. and 0.5 mg at bedtime. She is on Lexapro 5 mg q.a.m. OTHER MEDICATIONS: Include Synthroid, Pepcid, Xopenex inhaler, Renagel, 81 mg of aspirin, Catapres t.i.d., Norvasc, Plavix, Revatio, Sensipar and Trandate. The patient has no adverse effects for any psychotropic medication. PHYSICAL EXAMINATION VITAL SIGNS: Her blood pressure is 149/65, pulse is 82, respirations 20 per minute and afebrile. Her O2 saturation reportedly 100% on room air. IMPRESSION: The patient has major depressive disorder secondary to end-stage renal disease and other medical problems including peripheral vascular disease, severe. The patient has history of hypertension, she is on anticoagulants, also chronic obstructive pulmonary disease. PLAN: We add Risperdal 0.25 mg p.o. at bedtime. Continue Xanax as ordered above and continue Lexapro as ordered above. We will continue to monitor her mental status. Reji Garcia MD
[2017-03-26] MEDS: Levalbuterol 1.25 MG/3 ML Inhal Soln UD IH SCH ×5 (02:29→20:30)
--- NOTE | 2017-03-26 02:41 | PN ---
DATE OF SERVICE: 03/25/2017 SUBJECTIVE: Patient is 56 years old, seen and examined and evaluated by Dr. Lucio Thomas. She is scheduled to have angiography and angioplasty by Dr. Lucio Thomas in the a.m. because of her common femoral and superficial femoral occlusion. The patient states her right leg is painful, tingly and numb and cannot walk, so it is unsafe to discharge, so currently, she is getting analgesics and procedure is scheduled for tomorrow. PHYSICAL EXAMINATION: GENERAL: Today, she is awake and alert, communicative. VITAL SIGNS: She is afebrile, pulse 94, respiration 20, blood pressure 118/58. LUNGS: Bilateral fair airflow. No rhonchi or crackles. HEART: S1 and S2 audible. ABDOMEN: Soft, nontender, no rebound, no guarding. NEUROLOGIC: The patient is awake and alert, able to communicate. Moves all extremities, however, has difficulty walking, complained of pain in the right below knee. She has altered sensation with numbness and tingling. ASSESSMENT AND PLAN: 1. Severe peripheral vascular disease, status post abdominal angiography. 2. Hypertension. 3. End-stage renal disease, on hemodialysis. 4. Chronic anemia. 5. Peptic ulcer disease. 6. Pulmonary hypertension. 7. Coronary artery disease status post angioplasty of circumflex artery. 8. Common femoral and superficial femoral artery occlusion. PLAN: The patient is scheduled to have vascular procedure tomorrow. After the procedure, since dye will be given, she will get dialyzed and then we will reevaluate patient and make discharge plan. Brittany Coffman MD
[2017-03-26] MEDS: HYDROmorphone 1 mg/ml ISec IVP PRN ×3 (03:40→17:20)
[2017-03-26] MEDS: HYDROmorphone 0.5 mg/0.5 ml ISec IVP PRN (05:37)
[2017-03-26] MEDS: Levothyroxine 75 MCG TAB PO SCH (05:39)
[2017-03-26] MEDS: Pantoprazole 40 mg EC Tab PO SCH (05:39)
[2017-03-26] MEDS ORDERED: Iodixanol 320 MG/ML 100 ML BOTTLE IV ONE (06:50)
[2017-03-26] MEDS ORDERED: Iodixanol 320 MG/ML 200 ML BOTTLE IV ONE (06:50)
[2017-03-26] MEDS ORDERED: Lidocaine 2% Inj (20ml) ONE (06:50)
[2017-03-26] MEDS ORDERED: Nitroglycerin 50mg in D5W 50 MG/250 ML BOTTLE IV ONE (06:51)
[2017-03-26] MEDS ORDERED: Famotidine 20mg/50ml 20 MG/50 ML BAG IVPB ONE (07:12)
[2017-03-26] MEDS ORDERED: DiphenhydrAMINE 50 mg/ml Inj ONE (07:12)
[2017-03-26] MEDS ORDERED: Midazolam 2 MG/2 ML VIAL ONE ×2 (07:12→08:07)
[2017-03-26] MEDS ORDERED: Nitroglycerin 2% Ointment Foilpak UD TOP ONE (08:26)
[2017-03-26] MEDS ORDERED: Labetalol 5 mg/ml Inj 20ML ONE (09:16)
--- NOTE | 2017-03-26 14:20 | PN ---
SUBJECTIVE: The patient is a 56-year-old female who was seen and examined, lying in bed complaining of right leg pain. She had angioplasty done this morning. She is complaining of pain and asking for pain medications. She is complaining of nausea because of pain, unable to walk. PHYSICAL EXAMINATION VITAL SIGNS: She is afebrile. Pulse is 99, respirations are 14, and blood pressure is 186/59. HEART: S1 and S2, audible. LUNGS: Bilateral fair air flow. No rhonchi or crackle. ABDOMEN: Soft and nontender. No rebound, no guarding. NEUROLOGIC: She is awake and alert, able to communicate. Moves all extremity, but unable to standup, especially right leg feels weak and painful. ASSESSMENT AND PLAN: 1. Severe peripheral vascular disease status post right extremity revascularization and angioplasty. It was unable to even pass wire in the left femoral occlusion that need endarterectomy. Dr. Mills to evaluate the patient for open bypass surgery for her left leg and left arm. 2. End stage renal disease and hemodialysis. 3. Severe peripheral vascular disease status post right lung vascular exploration and angioplasty. 4. Chronic anemia. 5. Gastroesophageal reflux disease. PLAN: Start physical therapy. Continue analgesic as needed and continue her usual medication. She might be a candidate for TCU, I will request for TCU evaluation. If she is accepted, she can be transferred to TCU for rehab and get training. Brittany Coffman MD
--- NOTE | 2017-03-26 14:21 | VASCULAR ---
PROCEDURE: 1. Abdominal aortogram and bilateral lower extremity runoff. 2. Right profunda femoral artery origin angioplasty 3. Right external iliac artery angioplasty and stent placement HISTORY: Vasculopath. End-stage renal disease. Severe peripheral vascular disease. Right foot rest pain. Lifestyle-limiting claudication. PHYSICIAN(S): Lucio Thomas M.D. TECHNIQUE: The relative risks and indications of the procedure were explained to the patient and consent obtained. The patient was placed supine on the arteriogram table and the left axilla prepped and draped in the usual sterile fashion. Conscious sedation and monitoring were provided throughout the procedure by a nurse. Under ultrasound guidance, the left axillary artery was punctured with a micropuncture set. A 5 [place]i sheath was placed. A 5 [place]i flush catheter was placed the abdominal aorta at the level renal arteries and a PA DSA abdominal pelvic arteriogram performed. The catheter was advanced to the aortic bifurcation and bilateral oblique pelvic arteriograms performed. Overlapping bilateral lower extremity DSA arteriograms were obtained from the inguinal ligaments to the mid calves. 0.035 support wire was placed in the right common femoral artery. A 7 [place]i 65 cm destination sheath was placed in the right common iliac artery. The critical stenosis at the right profunda femoral artery origin was crossed with 5 [place]i catheter and angled Glidewire. Exchange is made for 0.014 support wire. Heparin 5000 units IV was given. The right profunda femoral artery origin and right common femoral artery were dilated with 6 and 7 mm balloons. An excellent angiographic result was obtained. Next the right external iliac artery was dilated with a 6 mm balloon. An 8 mm x 80 mm self expanding stent was deployed the proximal right external iliac artery. The stent was dilated with a 7 mm balloon. Completion arteriograms were obtained on the right. The sheath was retracted and 5 [place]i catheter and angled Glidewire advanced to the left common femoral artery occlusion. Multiple attempts at probing the calcified occlusion were made and a unsuccessful in crossing the occlusion. The sheath was removed and hemostasis obtained at the axilla. The patient tolerated the procedure well. FINDINGS: The renal arteries are atretic consistent with the patient's history for dialysis. The infrarenal abdominal aorta is calcified and patent. The aortic bifurcation is patent. The common iliac arteries are patent and smoothly disease. There is a critical stenosis in the proximal right external iliac artery. A high-grade stenosis of the origin of the right internal iliac artery is seen. The left internal iliac artery is occluded. The left external iliac artery is calcified and patent. Right lower extremity: Moderate calcified disease of the right common femoral artery is noted. There is a critical stenosis of the origin of the right profunda femoral artery. The right SFA is occluded at its origin. The right profunda femoral artery is large. There is faint reconstitution of a small right popliteal artery at the patella. There is faint opacification of the right anterior tibial and tibioperoneal trunk. Left lower extremity: The left common femoral artery is heavily calcified and occluded. There is reconstitution of the proximal left profunda femoral artery. The left SFA is occluded at its origin. There is reconstitution of the terminal left SFA at the adductor canal. The left popliteal artery is patent. There is opacification of the left anterior tibial and peroneal arteries. IMPRESSION: 1.Successful right external iliac artery angioplasty and stent placement. 2. Successful right profunda femoral artery origin angioplasty. 3. Calcified chronic left common femoral artery occlusion. This could not be crossed in an antegrade direction. 4. Bilateral SFA occlusions.
--- NOTE | 2017-03-26 14:58 | PN ---
SUBJECTIVE: The patient is a 56-year-old female, currently being treated for severe peripheral vascular disease in femoral popliteal arteries. The patient is also being followed by me psychiatrically for severe depression and insomnia. Last time she was started on Risperdal 0.25 mg at bedtime and Xanax 0.5 mg at bedtime and slept much better from 9:00 p.m. to 5:00 a.m. this morning. The patient had a cardiac catheterization on 03/26/2017. The report is not clear at this time. I will have to review it at later date. The patient also has end-stage renal disease, receiving hemodialysis. She is having abdominal angiogram with severe anemia and pulmonary hypertension. The patient's current mental status reveals that she is awake, alert, has depressed facies, is still depressed but is much relieved, slept better last night. She is oriented x3. Recent remote memory is intact. She understands the nature of her medical problems in the course of diagnosis and treatment. CURRENT MEDICATIONS: Include chewable aspirin, Catapres p.r.n., Dilaudid, Lexapro 5 mg daily, Miralax, Norvasc, Pepcid, Plavix, Protonix, Renagel, Revatio, risperidone 0.25 mg at bedtime, Sensipar, Trandate, Synthroid, alprazolam 0.125 mg b.i.d. and 0.5 mg at bedtime, Xopenex inhaler. The patient is also on fentanyl patch. LABORATORY DATA: White count was 7500, hemoglobin 9.8, platelet count 214,000. Her most recent metabolic profile has been previously reviewed. No new metabolic profile was recently available. PHYSICAL EXAMINATION: VITAL SIGNS: Her blood pressure is 186/59, pulse 99, respiration is 18 per minute and afebrile. IMPRESSION: The patient has major depressive disorder with severe anxiety and insomnia, improving. The patient has history of end-stage renal disease with hemodialysis, severe peripheral vascular disease. She also has pulmonary hypertension, peptic ulcers, chronic anemia, coronary artery disease, and hypertension. PLAN: I will continue above psychotropic medicine, Lexapro 5 mg daily, Xanax 0.125 b.i.d. and 0.5 mg at bedtime, and Risperdal 0.25 mg at bedtime. Reji Garcia MD [facility] # [id number]
[2017-03-26 15:08] LABS: GRAN # 9.23 (1.4-6.5); GRAN % 95.7 % (50.0-68.0); HEMOGLOBIN 11.5 gm/dL (12.0-16.0); LYMPH # 0.4 (1.2-3.4); LYMPH % 3.6 % (22.0-35.0); MEAN CELL VOLUME 96.9 fL (80.0-105.0); MEAN CORPUSCULAR HEMOGLOBIN 29.6 pg (25.0-35.0); MEAN CORPUSCULAR HGB CONC 30.6 g/dl (31.0-37.0); MEAN PLATELET VOLUME 10.1 fl (7.0-11.0); MONO # 0.1 (0.1-0.6); MONO % 0.7 % (1.0-6.0); PLATELET COUNT 234 10^3/uL (120.0-450.0); RBC 3.88 10^6/uL (3.5-6.1); RED CELL DISTRIBUTION WIDTH 16.6 % (11.5-14.5); WHITE BLOOD COUNT 9.7 10^3/ul (4.5-11.0)
[2017-03-26 15:16] LABS: ALB/GLOB RATIO 1.8 (1.1-1.8); ALBUMIN 4.3 g/dL (3.0-4.8); CALCIUM 8.5 mg/dL (8.4-10.5); MAGNESIUM 2.3 mg/dL (1.7-2.2)
[2017-03-26] MEDS: Sildenafil 20 MG TAB PO SCH (17:53)
[2017-03-26] MEDS: POLYETHYLENE GLYCOL 3350 17 GM/Dose PACKET PO SCH (17:55)
--- NOTE | 2017-03-26 20:17 | PN ---
DATE: 03/26/2017 SUBJECTIVE: The patient is seen sitting in bed. She is complaining of pain in her right leg. Her son is at her bedside. She had an angiogram, angioplasty, and declotting of her right lower extremity. PHYSICAL EXAMINATION GENERAL: Middle-aged lady sitting in bed. VITAL SIGNS: Blood pressure 186/59, heart rate 99, respiratory rate 14, and temperature 98. HEENT: Normocephalic, atraumatic, positive pallor. NECK: Supple, no JVD. CARDIOPULMONARY: S1 and S2, regular rate, and rhythm, no murmur, no rub. LUNGS: Bilateral equal air entry, no rales. ABDOMEN: Soft, nondistended, nontender. Bowel sounds present. EXTREMITIES: Mild swelling of the right foot. INTAKE/OUTPUT: Not charted. LABORATORY DATA: No new labs. Potassium is 6.6 on 03/24/2017. CURRENT MEDICATIONS: Aspirin, Catapres 0.2 t.i.d., Dilaudid, Lexapro, MiraLax, amlodipine, Pepcid, Plavix, Renagel, Protonix, Revatio, Sensipar, Synthroid, Trandate, Xanax, Xopenex, and Zofran. ASSESSMENT: 1. Severe peripheral vascular disease, atherosclerotic disease. 2. Status post right profunda femoral artery angioplasty, right external iliac artery angioplasty and stent. 3. Calcification of the left common femoral artery. 4. Bilateral SSA occlusions. 5. End-stage renal disease. 6. Malfunctioning right autogenous venous graft. PLAN: 1. Surgical evaluation for atherectomy of the left lower extremity. 2. Dialysis later today. 3. Continue Plavix. 4. Continue multiple antihypertensives. Tamanna Smith MD
[2017-03-27] MEDS: Levalbuterol 1.25 MG/3 ML Inhal Soln UD IH SCH ×8 (01:30→20:11)
[2017-03-27] MEDS: HYDROmorphone 1 mg/ml ISec IVP PRN ×4 (03:21→20:14)
[2017-03-27 04:08] LABS: TROPONIN I 0.04 ng/mL
[2017-03-27] MEDS: Levothyroxine 75 MCG TAB PO SCH (06:07)
[2017-03-27] MEDS: Pantoprazole 40 mg EC Tab PO SCH (06:07)
[2017-03-27] MEDS: POLYETHYLENE GLYCOL 3350 17 GM/Dose PACKET PO SCH (09:46)
[2017-03-27] MEDS: Sildenafil 20 MG TAB PO SCH (09:48)
[2017-03-27] MEDS: Lidocaine 5% Patch TD SCH (11:12)
--- NOTE | 2017-03-27 14:26 | PN ---
DATE: 03/27/2017 SUBJECTIVE: The patient is seen sitting in bed. She is awake. She is alert. She is complaining of severe pain in her right lower extremity. She is complaining of tingling, weird sensations, change of color in the right foot. PHYSICAL EXAMINATION GENERAL: Middle-aged lady sitting in bed. VITAL SIGNS: Blood pressure 99/45, heart rate 78, respiratory rate 18, temperature 98.4. HEENT: Normocephalic, atraumatic. NECK: Supple. No JVD. CARDIOPULMONARY: S1, S2. Regular rate and rhythm. No murmur. No rub. LUNGS: Bilateral equal air entry. No rales. ABDOMEN: Soft, nondistended, nontender. Bowel sounds present. EXTREMITIES: Mottling of the right lower leg, foot, some change in temperature of the right foot. No edema. LABORATORY DATA: WBC 9.7, hemoglobin 11.5, hematocrit 37, platelets 234,000. Sodium 135, potassium 6.3, chloride 95, CO2 of 20, BUN 74, creatinine 10.5, glucose 128, calcium 8.5, phosphorus 8.7, magnesium 2.3. AST 42, ALT 90. Troponin 83. Albumin 4.3. CURRENT MEDICATIONS: Aspirin, Catapres, Dilaudid, Lexapro, Miralax, amlodipine, Pepcid, Plavix, Protonix, Revatio, Risperdal, Sensipar, Synthroid, Trandate, Xanax, Xopenex, Zofran. ASSESSMENT: 1. Severe diffuse atherosclerotic disease. 2. Status post angioplasty and stent of right lower extremity. 3. Severe lower extremity vascular disease in the left leg. 4. Severe hypertension. 5. Gastroesophageal reflux disease. 6. End-stage renal disease. PLAN: 1. Status post dialysis yesterday. 2. The patient awaiting reevaluation with Dr. Lucio Thomas. 3. Surgical evaluation for atherectomy of left lower extremity. 4. Increase Renagel to 2400 mg 3 times a day. Tamanna Smith MD
[2017-03-27 15:57] VITALS: RESP 20
--- NOTE | 2017-03-27 16:14 | CARD ---
APPROVED REPORT EKG Measurement Heart [id number] <Conclusion> Normal sinus rhythm Biatrial enlargement Left ventricular hypertrophy with repolarization abnormality Prolonged QT Abnormal ECG
--- NOTE | 2017-03-27 18:01 | PN ---
SUBJECTIVE: The patient is a 56-year-old, seen and examined. Complained of bilateral leg pain, right more than the left. Since angioplasty, she states she developed rashes. She has difficulty walking, she gets short of breath. Complaining of nausea. No chest pain, no shortness of breath. PHYSICAL EXAMINATION VITAL SIGNS: She is afebrile, 98.4; pulse 79; respirations 20, blood pressure *------*. LUNGS: Bilateral fair air flow. No rhonchi or crackle. HEART: S1 and S2, audible. ABDOMEN: Soft and nontender. No rebound, no guarding. NEUROLOGIC: The patient is awake and alert, able to communicate. LABORATORY DATA: WBC is 9.7, hemoglobin 11.5, hematocrit 37.6, platelets 234. Chemistry: Sodium 135, potassium 6.3, chloride 95, CO2 of 20, BUN 74, creatinine 11.5, blood sugar of 128. ASSESSMENT: 1. Bilateral leg pain. 2. Severe peripheral vascular disease, status post angioplasty, right femoral. 3. Hypertension. 4. End-stage renal disease, on hemodialysis. 5. Malfunctioning atrioventricular fistula. PLAN: Discussed with Dr. Lucio Thomas. We will get Dr. Moura involved for evaluation. She has a generalized significant vascular disease with multiple comorbidities. I will wait Dr. Moura's input. If she can handle, fine, otherwise she might have to be referred to tertiary care unit for further intervention. For now, we will transfer the patient to TCU for rehab. Brittany Coffman MD
--- NOTE | 2017-03-27 18:13 | CP.PCM.CON ---
History of Present Illness - History of Present Illness History of Present Illness: Vascular surgery consult for Dr. Luna 56 F presents with PVD. Consulted Dr. Luna for PVD. Patient has lower extremity pain, which is worse when walking (up to 10 feet). cold lower extremities. Patient had AVF graft on right arm, which failed in the past. Patient states that "Dr. Thomas examined the patient's left arm for viable vessels and found one". Patient admits to unstable angina, which occurs a few times a day. Patient denies chest pain at this moment. Patient denies F/C, N/V, C/D. Patient denies numbness and weakness of lower extremities. PMH: HTN, diverticulosis, PAD, chronic constipation, emphysema, asthma, pulmonary HTN, hypothyroid, VA x2, appendectomy, x2 PSH: stent placement 2 months ago, carotid stent 5 months ago FHx Mother and father brain aneurysms, brother of brain cancer, had thyroid cancer. Social Hx: quit smoking 5 years ago 2pk/day x 40 year, no etoh, or illicit drugs. Allergies: contrast dye, ciprofloxacin, vanco, hydralazine Review of Systems - Review of Systems All systems: reviewed and no additional remarkable complaints except - Cardiovascular Cardiovascular: Chest Pain at Rest, Dyspnea on Exertion, Edema, Leg Edema. absent: Lightheadedness, Orthopnea, Palpitations, Slow Heart Rate Past Patient History - Infectious Disease Hx of Infectious Diseases: None - Tetanus Immunizations Tetanus Immunization: Unknown - Past Social History Smoking Status: Former Smoker Alcohol: None Drugs: Denies - CARDIAC Hx Cardiac Disorders: Yes (Pulmonary Hypertension) Hx Congestive Heart Failure: Yes Hx Hypercholesterolemia: Yes Hx Hypertension: Yes - PULMONARY Hx Chronic Obstructive Pulmonary Disease (COPD): Yes - NEUROLOGICAL HX Cerebrovascular Accident: No - HEENT Hx HEENT Problems: Yes (hard of hearing) Hx Blind: No Hx Cataracts: No Hx Deafness: No Hx Difficulty Chewing: No Hx Epistaxis: No Hx Glaucoma: No Hx Macular Degeneration: No - RENAL Hx Renal Failure: No - ENDOCRINE/METABOLIC Hx Diabetes Mellitus Type 1: No Hx Diabetes Mellitus Type 2: No Hx Hypothyroidism: Yes - HEMATOLOGICAL/ONCOLOGICAL Hx Blood Disorders: Yes Hx AIDS: No Hx Anemia: Yes Hx Cancer: No Hx Chemotherapy: No Hx Cirrhosis: No Hx Hemophilia: No Hx Hepatitis A: No Hx Hepatitis B: No Hx Hepatitis C: No Hx Human Immunodeficiency Virus (HIV): No Hx Metastesis: No Hx Shingles: No Hx Sickle Cell Disease: No Hx Unexplained Bleeding: No - INTEGUMENTARY Hx Dermatological Problems: No Hx Basil Cell: No Hx Eczema: No Hx Melanoma: No Hx Psoriasis: No Hx Squamous Cell: No - MUSCULOSKELETAL/RHEUMATOLOGICAL Hx Arthritis: No - GASTROINTESTINAL Hx Gastrointestinal Disorders: Yes Hx Colostomy: No Hx Crohn's Disease: No Hx Diverticulitis: Yes Hx Gall Bladder Disease: No Hx Gastroesophageal Reflux: Yes Hx Ileostomy: No Hx Liver Failure: No Hx Pancreatitis: No HX Swallowing Problems: No Hx Ulcer: No - GENITOURINARY/GYNECOLOGICAL Hx Genitourinary Disorders: No Hx Hematuria: No Hx Incontinence: No Hx Sexually Transmitted Disorders: No Hx Urinary Tract Infection: No - PSYCHIATRIC Hx Psychophysiologic Disorder: Yes Hx Anxiety: Yes Hx Bipolar Disorder: No Hx Depression: No Hx Emotional Abuse: No Hx Hallucinations: No Hx Panic Symptoms: No Hx Paranoia: No Hx Post Traumatic Stress Disorder: No Hx Psychosis: No Hx Physical Abuse: No Hx Schizophrenia: No Hx Sexual Abuse: No - SURGICAL HISTORY Hx Surgeries: Yes Hx Amputation: No Hx Appendectomy: No Hx Cardiac Catheterization: Yes Hx Cholecystectomy: No Hx Coronary Stent: Yes Hx Gastric Bypass Surgery: No Hx Hysterectomy: No Hx Joint Replacement: No Hx Kidney Transplant: No Hx Liver Transplant: No Hx Mastectomy: No Hx Musculoskeletal Surgery: No Hx Open Heart Surgery: No Hx Orthopedic Surgery: No Hx Splenectomy: No Hx Valve Replacement: No - ANESTHESIA Hx Anesthesia: Yes Hx Anesthesia Reactions: No Hx Malignant Hyperthermia: No Meds Home Medications: Home Medication List Medication Instructions Recorded Confirmed Type DiphenhydrAMINE [Benadryl] 50 mg IVP ONCE #1 vial 03/24/17 Rx Allergies/Adverse Reactions: Allergies Allergy/AdvReac Type Severity Reaction Status Date / Time ciprofloxacin Allergy RASH Verified 03/12/17 08:53 hydralazine Allergy RASH Verified 03/12/17 08:53 vancomycin Allergy SHORTNESS Verified 03/12/17 08:[address] dye Allergy RASH Uncoded 03/12/17 08:53 - Medications Medications: Current Medications Alprazolam (Xanax) 0.125 mg PO 1000,1600 [facility] Stop: 03/28/17 10:01 Last Admin: 03/27/17 09:43 Dose: 0.125 mg Alprazolam (Xanax) 0.5 mg PO HS [facility] Last Admin: 03/25/17 21:27 Dose: 0.5 mg Amlodipine Besylate (Norvasc) 10 mg PO DAILY [facility] Last Admin: 03/27/17 09:46 Dose: Not Given Aspirin (Aspirin Chewable) 81 mg PO DAILY [facility] Last Admin: 03/27/17 11:12 Dose: 81 mg Cinacalcet (Sensipar) 30 mg PO DAILY [facility] Last Admin: 03/27/17 11:00 Dose: 30 mg Clonidine HCl (Catapres) 0.2 mg PO TID [facility] Last Admin: 03/27/17 15:12 Dose: Not Given Clopidogrel Bisulfate (Plavix) 75 mg PO DAILY [facility] Last Admin: 03/27/17 09:47 Dose: 75 mg Escitalopram Oxalate (Lexapro) 5 mg PO DAILY [facility] Last Admin: 03/27/17 09:46 Dose: 5 mg Famotidine (Pepcid) 10 mg PO BID PRN PRN Reason: Pain, Mild (1-3) Last Admin: 03/27/17 09:47 Dose: 10 mg Hydromorphone HCl (Dilaudid) 1 mg IVP Q4H PRN PRN Reason: Pain, severe (8-10) Last Admin: 03/27/17 15:15 Dose: 1 mg Labetalol HCl (Trandate) 100 mg PO BID [facility] Last Admin: 03/27/17 09:49 Dose: Not Given Levalbuterol HCl (Xopenex) 1.25 mg IH [id number] [facility] Last Admin: 03/27/17 13:34 Dose: Not Given Levalbuterol HCl (Xopenex) 1.25 mg IH [id number] [facility] Last Admin: 03/27/17 13:34 Dose: Not Given Levothyroxine Sodium (Synthroid) 75 mcg PO 0600 [facility] Last Admin: 03/27/17 06:07 Dose: 75 mcg Lidocaine (Lidoderm) 1 ea TD DAILY [facility] Last Admin: 03/27/17 11:12 Dose: 1 ea Ondansetron HCl (Zofran Inj) 4 mg IVP Q6H PRN PRN Reason: Nausea/Vomiting Last Admin: 03/21/17 10:25 Dose: 4 mg Pantoprazole Sodium (Protonix Ec Tab) 40 mg PO 0600 [facility] Last Admin: 03/27/17 06:07 Dose: 40 mg Polyethylene Glycol (Miralax) 17 gm PO DAILY [facility] Last Admin: 03/27/17 09:46 Dose: 17 gm Risperidone (Risperdal Tab) 0.25 mg PO 2200 [facility] Last Admin: 03/26/17 22:18 Dose: 0.25 mg Sevelamer HCl (Renagel) 2,400 mg PO 0800,1200,1700,2200 [facility] Last Admin: 03/27/17 15:13 Dose: Not Given Sildenafil Citrate (Revatio) 20 mg PO DAILY [facility] Last Admin: 03/27/17 09:48 Dose: 20 mg Physical Exam - Head Exam Head Exam: NORMAL INSPECTION, NORMOCEPHALIC - Eye Exam Eye Exam: EOMI, Normal appearance - ENT Exam ENT Exam: Mucous Membranes Moist - Cardiovascular Exam Cardiovascular Exam: REGULAR RHYTHM. absent: Bradycardia, Tachycardia, Systolic Murmur - GI/Abdominal Exam GI & Abdominal Exam: Normal Bowel Sounds, Soft. absent: Distended, Firm, Guarding, Pulsatile Mass, Rebound, Rigid - Extremities Exam Additional comments: Right DP, L PT biphasic auscultated on doppler Results - Vital Signs Recent Vital Signs: Last Vital Signs Temp 98.4 F 03/27/17 15:56 Pulse 79 03/27/17 15:56 Resp 20 03/27/17 15:56 BP 104/46 L 03/27/17 15:56 Pulse Ox 100 03/27/17 15:56 - Labs Result Diagrams: 03/26/17 14:59 03/26/17 14:59 Labs: Laboratory Results - last 24 hr 03/27/17 03:10 Total Creatine Kinase 83 Troponin I 0.04 D Assessment & Plan - Assessment and Plan (Free Text) Assessment: 56F presents with PVD and evaluated for AVF placement. Plan: c/w current medical management possible transfer for physical therapy. consider AVF placement on left arm. d/w Dr. Jeremy Anderson, DO PGY1
--- NOTE | 2017-03-27 20:45 | US ---
PROCEDURE: Duplex arterial ultrasound of the right groin. HISTORY: Recent right common femoral artery and profunda femoral artery origin angioplasty. Persistent ischemic right foot pain. Evaluate for subacute thrombosis. PHYSICIAN(S): Lucio Thomas MD. FINDINGS: There is severe diffuse shadowing atherosclerotic disease of the right common femoral artery. Velocities are right common femoral artery are diffusely elevated. The right profunda femoral artery origin is patent without an obvious stenosis. IMPRESSION: 1. Diffuse atherosclerotic disease of the right common femoral artery with shadowing. 2. Patent right common femoral artery and right profunda femoral artery origin
--- NOTE | 2017-03-27 20:47 | US ---
PROCEDURE: Lower extremity BROOKE exam HISTORY: Severe peripheral vascular disease. Recent right external iliac and common femoral artery/profunda femoral artery origin intervention. Persistent rest pain. Evaluate for thrombosis. PHYSICIAN(S): Lucio Thomsa MD. FINDINGS: The exam is very limited. The right high thigh PVR waveform is markedly improved compared to the prior study. Is is consistent with a patent right external iliac and profunda femoral artery origin intervention. Unfortunately the right calf, ankle, and metatarsal waveforms are essentially flat. This is consistent with the patient's known extensive infrainguinal PVD IMPRESSION: 1. Improved PVR waveform at the high thigh level. Unfortunately, the right calf ankle and metatarsal waveforms remain essentially flat.
--- NOTE | 2017-03-27 21:22 | PN ---
SUBJECTIVE: This patient is a 56-year-old female, currently being treated for severe peripheral vascular disease with pain in her lower extremities. She had yesterday angioplasty and stent of right lower extremity. She is having pain at night. She has some numbness and tingling. She has been also followed for major depression, insomnia, sleeps well when receives usual psychotropic medicine which includes Xanax 0.5 mg and Risperdal 0.25 mg. She is also on Lexapro 5 mg q.a.m. The patient's other medications include aspirin, Catapres, p.r.n. Dilaudid, Miralax, amlodipine, Pepcid, Plavix, Protonix, Revatio, Sensipar, Synthroid, Trandate, Xopenex and p.r.n. Zofran. She is also receiving hemodialysis for endstage renal disease. REVIEW OF SYSTEMS: Pain and numbness in legs, especially right leg. The patient has some slight lightheadedness and lower back pain, otherwise rest of the review of systems is noncontributory. MENTAL STATUS EXAMINATION: The patient's current mental status reveals that she is awake, alert, sitting at bedside. She has some what of a forlorn depressed facies, but she admits she is feeling better, she is less anxious, sleeping better and denying any suicidal ideation or psychotic symptomatology. Recent, remote memory intact. PHYSICAL EXAMINATION VITAL SIGNS: Blood pressure is 104/46, pulse 79, afebrile, respirations 20 per minute, O2 saturation is 100. LABORATORY DATA: Metabolic profile yesterday; her sodium 135, potassium 6.3, chloride 96, CO2 of 20. Anion gap 26. BUN 74, creatinine 10.5, estimated GFR 4, random glucose 128, phosphorus 8.7, magnesium 2.5, AST 42, ALT 90, alk phos 246. profile was normal today. She had a troponin-I level which was 0.04. The patient's CBC with white count yesterday of 9.7, hemoglobin 11.5, and a platelet count of 234,000. IMPRESSION: The patient has major depressive disorder with insomnia and anxiety. The patient has also diffuse atherosclerotic disease. She has endstage disease with hemodialysis. She has hypertension, peripheral vascular disease of the lower extremities status post angioplasty and stent of right lower extremity, gastroesophageal reflux disease. PLAN: Continue Xanax 0.125 mg b.i.d. and 0.5 mg at bedtime. Continue Lexapro 5 mg daily and continue Risperdal 0.25 mg at bedtime for mood stabilization. We will continue to monitor mental status. Reji Garcia MD
--- NOTE | 2017-03-27 23:17 | CP.PCM.PN ---
Subjective - Date & Time of Evaluation Date of Evaluation: 03/27/17 Time of Evaluation: 23:17 - Subjective Subjective: Patient was seen at bed side for her complaint of burning pain in right foot. Patient has been IV dilaudid but it is not due yet. She has no other complaints.Has pain in left foot also. No weakness, no pain anywhere else in the body. Medical record was reviewed. 56 year old woman was admitted with sob , chest tightness. Has PMH of anemia, HTN, COPD, [place], ESRD, PAD, pulmonary HTN, coronary stent placement. Objective - Vital Signs/Intake and Output Vital Signs (last 24 hours): Temp Pulse Resp BP Pulse Ox 98.4 F 79 20 104/46 L 100 03/27/17 15:56 03/27/17 18:18 03/27/17 15:56 03/27/17 18:18 03/27/17 15:56 Intake and Output: 03/27/17 03/28/17 18:59 06:59 Intake Total 360 Balance 360 - Medications Medications: Current Medications Alprazolam (Xanax) 0.125 mg PO 1000,1600 [facility] Stop: 03/28/17 10:01 Last Admin: 03/27/17 18:19 Dose: 0.125 mg Alprazolam (Xanax) 0.5 mg PO HS [facility] Last Admin: 03/27/17 21:13 Dose: 0.5 mg Amlodipine Besylate (Norvasc) 10 mg PO DAILY [facility] Last Admin: 03/27/17 09:46 Dose: Not Given Aspirin (Aspirin Chewable) 81 mg PO DAILY [facility] Last Admin: 03/27/17 11:12 Dose: 81 mg Cinacalcet (Sensipar) 30 mg PO DAILY [facility] Last Admin: 03/27/17 11:00 Dose: 30 mg Clonidine HCl (Catapres) 0.2 mg PO TID [facility] Last Admin: 03/27/17 18:06 Dose: Not Given Clopidogrel Bisulfate (Plavix) 75 mg PO DAILY [facility] Last Admin: 03/27/17 09:47 Dose: 75 mg Escitalopram Oxalate (Lexapro) 5 mg PO DAILY [facility] Last Admin: 03/27/17 09:46 Dose: 5 mg Famotidine (Pepcid) 10 mg PO BID PRN PRN Reason: Pain, Mild (1-3) Last Admin: 03/27/17 21:13 Dose: 10 mg Hydromorphone HCl (Dilaudid) 1 mg IVP Q4H PRN PRN Reason: Pain, severe (8-10) Last Admin: 03/27/17 20:14 Dose: 1 mg Labetalol HCl (Trandate) 100 mg PO BID [facility] Last Admin: 03/27/17 18:18 Dose: 100 mg Levalbuterol HCl (Xopenex) 1.25 mg IH [id number] Last Admin: 03/27/17 20:11 Dose: Not Given Levalbuterol HCl (Xopenex) 1.25 mg IH [id number] [facility] Last Admin: 03/27/17 20:10 Dose: Not Given Levothyroxine Sodium (Synthroid) 75 mcg PO 0600 [facility] Last Admin: 03/27/17 06:07 Dose: 75 mcg Lidocaine (Lidoderm) 1 ea TD DAILY [facility] Last Admin: 03/27/17 11:12 Dose: 1 ea Ondansetron HCl (Zofran Inj) 4 mg IVP Q6H PRN PRN Reason: Nausea/Vomiting Last Admin: 03/21/17 10:25 Dose: 4 mg Pantoprazole Sodium (Protonix Ec Tab) 40 mg PO 0600 [facility] Last Admin: 03/27/17 06:07 Dose: 40 mg Polyethylene Glycol (Miralax) 17 gm PO DAILY [facility] Last Admin: 03/27/17 09:46 Dose: 17 gm Risperidone (Risperdal Tab) 0.25 mg PO 2200 [facility] Last Admin: 03/27/17 21:13 Dose: 0.25 mg Sevelamer HCl (Renagel) 2,400 mg PO 0800,1200,1700,2200 [facility] Last Admin: 03/27/17 22:00 Dose: 2,400 mg Sildenafil Citrate (Revatio) 20 mg PO DAILY [facility] Last Admin: 03/27/17 09:48 Dose: 20 mg - Labs Labs: 03/26/17 14:59 03/26/17 14:59 PT 11.0 Seconds (9.9-11.8) 03/18/17 14:00 INR 1.02 (0.93-1.08) 03/18/17 14:00 APTT 28.0 Seconds (23.7-30.8) 03/18/17 14:00 Laboratory Last Values WBC 9.7 10^3/ul (4.5-11.0) D 03/26/17 14:59 RBC 3.88 10^6/uL (3.5-6.1) 03/26/17 14:59 Hgb 11.5 gm/dL (12.0-16.0) L 03/26/17 14:59 Hct 37.6 % (36.0-48.0) 03/26/17 14:59 MCV 96.9 fL (80.0-105.0) 03/26/17 14:59 MCH 29.6 pg (25.0-35.0) 03/26/17 14:59 MCHC 30.6 g/dl (31.0-37.0) L 03/26/17 14:59 RDW 16.6 % (11.5-14.5) H 03/26/17 14:59 Plt Count 234 10^3/uL (120.0-450.0) 03/26/17 14:59 MPV 10.1 fl (7.0-11.0) 03/26/17 14:59 Gran % 95.7 % (50.0-68.0) H 03/26/17 14:59 Lymph % (Auto) 3.6 % (22.0-35.0) L 03/26/17 14:59 [place] % (Auto) 0.7 % (1.0-6.0) L 03/26/17 14:59 Eos % (Auto) 0.0 % (1.5-5.0) L 03/26/17 14:59 Baso % (Auto) 0.0 % (0.0-3.0) 03/26/17 14:59 Gran # 9.23 (1.4-6.5) H 03/26/17 14:59 Lymph # 0.4 (1.2-3.4) L 03/26/17 14:59 [place] # 0.1 (0.1-0.6) 03/26/17 14:59 Eos # 0.0 (0.0-0.7) 03/26/17 14:59 Baso # 0.00 K/mm3 (0.0-2.0) 03/26/17 14:59 PT 11.0 Seconds (9.9-11.8) 03/18/17 14:00 INR 1.02 (0.93-1.08) 03/18/17 14:00 APTT 28.0 Seconds (23.7-30.8) 03/18/17 14:00 Sodium 135 mmol/L (132-148) 03/26/17 14:59 Potassium 6.3 mmol/L (3.6-5.0) H* 03/26/17 14:59 Chloride 95 mmol/L (98-107) L 03/26/17 14:59 Carbon Dioxide 20 mmol/L (21-33) L 03/26/17 14:59 Anion Gap 26 (10-20) H 03/26/17 14:59 BUN 74 mg/dL (7-21) H 03/26/17 14:59 Creatinine 10.5 mg/dL (0.5-1.4) H* 03/26/17 14:59 Est GFR ( Amer) 5 03/26/17 14:59 Est GFR (Non-Af Amer) 4 03/26/17 14:59 Random Glucose 128 mg/dL (70-110) H 03/26/17 14:59 Calcium 8.5 mg/dL (8.4-10.5) 03/26/17 14:59 Phosphorus 8.7 mg/dL (2.5-4.5) H 03/26/17 14:59 Magnesium 2.3 mg/dL (1.7-2.2) H 03/26/17 14:59 Total Bilirubin 0.5 mg/dL (0.2-1.3) 03/26/17 14:59 AST 42 U/L (15-39) H 03/26/17 14:59 ALT 90 U/L (7-56) H 03/26/17 14:59 Alkaline Phosphatase 246 U/L (38-133) H 03/26/17 14:59 Lactate Dehydrogenase 618 U/L (333-699) 03/18/17 16:10 Total Creatine Kinase 83 U/L (35-230) 03/27/17 03:10 Troponin I 0.04 ng/mL D 03/27/17 03:10 Total Protein 6.6 g/dL (5.8-8.3) 03/26/17 14:59 Albumin 4.3 g/dL (3.0-4.8) 03/26/17 14:59 Globulin 2.4 gm/dL 03/26/17 14:59 Albumin/Globulin Ratio 1.8 (1.1-1.8) 03/26/17 14:59 Triglycerides 217 mg/dL (35-160) H 03/20/17 06:00 Cholesterol 131 mg/dL (130-200) 03/20/17 06:00 LDL Cholesterol Direct 58 mg/dL (0-129) 03/20/17 06:00 HDL Cholesterol 28 mg/dL (29-60) L 03/20/17 06:00 Lipase 86 U/L (23-300) 03/18/17 16:10 - Constitutional Appears: Well, No Acute Distress - Head Exam Head Exam: ATRAUMATIC, NORMAL INSPECTION, NORMOCEPHALIC - Eye Exam Eye Exam: Normal appearance - ENT Exam ENT Exam: Normal External Ear Exam - Neck Exam Neck Exam: Normal Inspection - Respiratory Exam Respiratory Exam: NORMAL BREATHING PATTERN - Cardiovascular Exam Cardiovascular Exam: absent: JVD - GI/Abdominal Exam GI & Abdominal Exam: absent: Distended - Rectal Exam Rectal Exam: Deferred - Exam Additional comments: Deferred. - Extremities Exam Extremities Exam: Normal Inspection - Back Exam Back Exam: NORMAL INSPECTION - Neurological Exam Neurological Exam: Alert, Oriented x3 - Psychiatric Exam Psychiatric exam: Normal Affect, Normal Mood - Skin Skin Exam: Normal Color Assessment and Plan - Assessment and Plan (Free Text) Assessment: PVD. Right foot burning pain. Left foot pain. HTN. COPD. ESRD. CAD. Pulmonary HTN. Chronic anemia. Plan: Toradol 15 mg IV now. Continue dilaudid for pain as ordered. Continue present management.
[2017-03-28] MEDS: HYDROmorphone 1 mg/ml ISec IVP PRN ×4 (00:08→14:36)
[2017-03-28] MEDS: Levalbuterol 1.25 MG/3 ML Inhal Soln UD IH SCH ×5 (01:11→13:08)
[2017-03-28] MEDS: Levothyroxine 75 MCG TAB PO SCH (06:17)
[2017-03-28] MEDS: Pantoprazole 40 mg EC Tab PO SCH (06:17)
[2017-03-28 09:01] VITALS: TEMP 97.8; O2SAT 97
[2017-03-28 09:06] LABS: ALB/GLOB RATIO 1.6 (1.1-1.8); ALBUMIN 4.4 g/dL (3.0-4.8); CALCIUM 8.7 mg/dL (8.4-10.5)
[2017-03-28 09:12] LABS: BASO # 0.01 K/mm3 (0.0-2.0); BASO % 0.1 % (0.0-3.0); EOS # 0.1 (0.0-0.7); EOS % 1.3 % (1.5-5.0); GRAN # 6.44 (1.4-6.5); GRAN % 83.6 % (50.0-68.0); HEMOGLOBIN 11.3 gm/dL (12.0-16.0); LYMPH # 0.6 (1.2-3.4); LYMPH % 7.5 % (22.0-35.0); MEAN CELL VOLUME 97.9 fL (80.0-105.0); MEAN CORPUSCULAR HEMOGLOBIN 29.5 pg (25.0-35.0); MEAN CORPUSCULAR HGB CONC 30.1 g/dl (31.0-37.0); MEAN PLATELET VOLUME 10.8 fl (7.0-11.0); MONO # 0.6 (0.1-0.6); MONO % 7.5 % (1.0-6.0); PLATELET COUNT 219 10^3/uL (120.0-450.0); RBC 3.83 10^6/uL (3.5-6.1); RED CELL DISTRIBUTION WIDTH 16.6 % (11.5-14.5); WHITE BLOOD COUNT 7.7 10^3/ul (4.5-11.0)
[2017-03-28] MEDS: Lidocaine 5% Patch TD SCH (10:32)
[2017-03-28] MEDS: POLYETHYLENE GLYCOL 3350 17 GM/Dose PACKET PO SCH (10:33)
[2017-03-28] MEDS: Sildenafil 20 MG TAB PO SCH (10:34)
--- NOTE | 2017-03-28 11:15 | CP.PCM.PN ---
Subjective - Date & Time of Evaluation Date of Evaluation: 03/28/17 Time of Evaluation: 11:12 - Subjective Subjective: Follow up Nephrology Consultation Note covering for Dr Smith Assessment: Stable Hypertensive Chronic Kidney Disease (I12.0) End stage renal disease (N18.6) dependence on hemodialysis (Z99.2) (TTS) via permacath Anemia (D64.9), Hyperphosphatemia (E83.39), Secondary Hyperparathyroidism (E21.1 ), HTN (I12.0) Hyperkalemia, ex smoker, PVD Plan: Will plan for HD today as ordered. Continue with Nephrovite 1 tab/day. PRBC as needed for anemia. Not on SURINDER as last Hb 11.3 Continue with phos binders as increased, last phos level 8.7 Continue with sensipar. BP control with meds as ordered. BP labile ranging from very high to low on a given day. Glycemic control, Dialysis consistent diet Further work up/management of PVD as per primary team Dose meds/antibiotics (if needed) for ESRD status. Avoid fleets enema/magnesium based laxatives. Thanks for allowing me to participate in care of your patient. Will follow patient with you. Please call if any Qs Dr Marvin Calixto Office: [phone] Subjective: Noted events overnight. Patients feels okay. Denies chest pain, palpitation, shortness of breath, leg swelling. No urinary complaints. had vomitting today. c/o leg pain Physical Examination: General Appearance: Comfortable, in no acute respiratory distress, co- operative. Vitals reviewed and noted as below Lungs: Normal respiratory rate/effort. Breath sounds bilateral equal and clear Heart: Normal rate. s1s2 normal. No rub or gallop. Extremities: no edema. LUE echumoses + Neurological: Patient is alert, awake and oriented to person, place and time. No focal deficit. Strength bilateral appropriate and equal Skin: Warm and dry. Normal turgor. No rash. Palpitation: Normal elasticity for age Abdomen: Abdomen is soft. Bowel sounds +. There is no abdominal tenderness, no guarding/rigidity or organomegaly : kidney or bladder not palpable Access: permacath Labs/imaging reviewed. Past medical history, past surgical history, family history, social history, allergy reviewed Objective - Vital Signs/Intake and Output Vital Signs (last 24 hours): Temp Pulse Resp BP Pulse Ox 97.8 F 67 20 110/47 L 97 03/28/17 08:00 03/28/17 10:34 03/28/17 08:00 03/28/17 10:34 03/28/17 08:00 Intake and Output: 03/28/17 03/28/17 06:59 18:59 Intake Total 600 Balance 600 - Medications Medications: Current Medications Alprazolam (Xanax) 0.5 mg PO HS [facility] Last Admin: 03/27/17 21:13 Dose: 0.5 mg Amlodipine Besylate (Norvasc) 10 mg PO DAILY [facility] Last Admin: 03/28/17 10:33 Dose: Not Given Aspirin (Aspirin Chewable) 81 mg PO DAILY [facility] Last Admin: 03/28/17 10:31 Dose: 81 mg Cinacalcet (Sensipar) 30 mg PO DAILY [facility] Last Admin: 03/28/17 10:40 Dose: 30 mg Clonidine HCl (Catapres) 0.2 mg PO TID [facility] Last Admin: 03/28/17 10:31 Dose: Not Given Clopidogrel Bisulfate (Plavix) 75 mg PO DAILY [facility] Last Admin: 03/28/17 10:33 Dose: 75 mg Escitalopram Oxalate (Lexapro) 5 mg PO DAILY [facility] Last Admin: 03/28/17 10:32 Dose: 5 mg Famotidine (Pepcid) 10 mg PO BID PRN PRN Reason: Pain, Mild (1-3) Last Admin: 03/28/17 10:34 Dose: 10 mg Hydromorphone HCl (Dilaudid) 1 mg IVP Q4H PRN PRN Reason: Pain, severe (8-10) Last Admin: 03/28/17 10:31 Dose: 1 mg Labetalol HCl (Trandate) 100 mg PO BID [facility] Last Admin: 03/28/17 10:34 Dose: Not Given Levalbuterol HCl (Xopenex) 1.25 mg IH [id number] [facility] Last Admin: 03/28/17 01:11 Dose: Not Given Levalbuterol HCl (Xopenex) 1.25 mg IH [id number] [facility] Last Admin: 03/28/17 07:09 Dose: Not Given Levothyroxine Sodium (Synthroid) 75 mcg PO 0600 [facility] Last Admin: 03/28/17 06:17 Dose: Not Given Lidocaine (Lidoderm) 1 ea TD DAILY [facility] Last Admin: 03/28/17 10:32 Dose: 1 ea Ondansetron HCl (Zofran Inj) 4 mg IVP Q6H PRN PRN Reason: Nausea/Vomiting Last Admin: 03/21/17 10:25 Dose: 4 mg Pantoprazole Sodium (Protonix Ec Tab) 40 mg PO 0600 [facility] Last Admin: 03/28/17 06:17 Dose: Not Given Polyethylene Glycol (Miralax) 17 gm PO DAILY [facility] Last Admin: 03/28/17 10:33 Dose: Not Given Risperidone (Risperdal Tab) 0.25 mg PO 2200 [facility] Last Admin: 03/27/17 21:13 Dose: 0.25 mg Sevelamer HCl (Renagel) 2,400 mg PO 0800,1200,1700,2200 [facility] Last Admin: 03/28/17 10:34 Dose: Not Given Sildenafil Citrate (Revatio) 20 mg PO DAILY [facility] Last Admin: 03/28/17 10:34 Dose: 20 mg Vitamin B Complex/Vit C/Folic Acid (Nephro-Tor) 1 tab PO 0800 [facility] - Labs Labs: 03/28/17 08:30 03/28/17 08:30 PT 11.0 Seconds (9.9-11.8) 03/18/17 14:00 INR 1.02 (0.93-1.08) 03/18/17 14:00 APTT 28.0 Seconds (23.7-30.8) 03/18/17 14:00
--- NOTE | 2017-03-28 13:15 | CP.PCM.PN ---
Subjective - Date & Time of Evaluation Date of Evaluation: 03/28/17 Time of Evaluation: 13:09 - Subjective Subjective: Vascular surgery progress note for PT S&E at bedside. KALLI. Patient still has pain in legs, but states it's feeling better after stent placement and angioplasty POD #2. Patient still has pain on Bilateral Lower extremities worse on the right side. Patient denies any chest pain today, sob, n/v, fever and chills. Patient states she would like to discuss with family about second opinion about AVF placement due to her history of AVF graft failure and limited sites for dialysis access. Objective - Vital Signs/Intake and Output Vital Signs (last 24 hours): Temp Pulse Resp BP Pulse Ox 97.8 F 67 20 110/47 L 97 03/28/17 08:00 03/28/17 10:34 03/28/17 08:00 03/28/17 10:34 03/28/17 08:00 Intake and Output: 03/28/17 03/28/17 06:59 18:59 Intake Total 600 Balance 600 - Medications Medications: Current Medications Alprazolam (Xanax) 0.5 mg PO HS [facility] Last Admin: 03/27/17 21:13 Dose: 0.5 mg Amlodipine Besylate (Norvasc) 10 mg PO DAILY [facility] Last Admin: 03/28/17 10:33 Dose: Not Given Aspirin (Aspirin Chewable) 81 mg PO DAILY [facility] Last Admin: 03/28/17 10:31 Dose: 81 mg Cinacalcet (Sensipar) 30 mg PO DAILY [facility] Last Admin: 03/28/17 10:40 Dose: 30 mg Clonidine HCl (Catapres) 0.2 mg PO TID [facility] Last Admin: 03/28/17 10:31 Dose: Not Given Clopidogrel Bisulfate (Plavix) 75 mg PO DAILY [facility] Last Admin: 03/28/17 10:33 Dose: 75 mg Escitalopram Oxalate (Lexapro) 5 mg PO DAILY [facility] Last Admin: 03/28/17 10:32 Dose: 5 mg Famotidine (Pepcid) 10 mg PO BID PRN PRN Reason: Pain, Mild (1-3) Last Admin: 03/28/17 10:34 Dose: 10 mg Hydromorphone HCl (Dilaudid) 1 mg IVP Q4H PRN PRN Reason: Pain, severe (8-10) Last Admin: 03/28/17 10:31 Dose: 1 mg Labetalol HCl (Trandate) 100 mg PO BID [facility] Last Admin: 03/28/17 10:34 Dose: Not Given Levalbuterol HCl (Xopenex) 1.25 mg IH [id number] Last Admin: 03/28/17 13:08 Dose: Not Given Levalbuterol HCl (Xopenex) 1.25 mg IH [id number] [facility] Last Admin: 03/28/17 13:07 Dose: Not Given Levothyroxine Sodium (Synthroid) 75 mcg PO 0600 [facility] Last Admin: 03/28/17 06:17 Dose: Not Given Lidocaine (Lidoderm) 1 ea TD DAILY [facility] Last Admin: 03/28/17 10:32 Dose: 1 ea Ondansetron HCl (Zofran Inj) 4 mg IVP Q6H PRN PRN Reason: Nausea/Vomiting Last Admin: 03/21/17 10:25 Dose: 4 mg Pantoprazole Sodium (Protonix Ec Tab) 40 mg PO 0600 [facility] Last Admin: 03/28/17 06:17 Dose: Not Given Polyethylene Glycol (Miralax) 17 gm PO DAILY [facility] Last Admin: 03/28/17 10:33 Dose: Not Given Risperidone (Risperdal Tab) 0.25 mg PO 2200 [facility] Last Admin: 03/27/17 21:13 Dose: 0.25 mg Sevelamer HCl (Renagel) 2,400 mg PO 0800,1200,1700,2200 [facility] Last Admin: 03/28/17 12:43 Dose: 2,400 mg Sildenafil Citrate (Revatio) 20 mg PO DAILY [facility] Last Admin: 03/28/17 10:34 Dose: 20 mg Vitamin B Complex/Vit C/Folic Acid (Nephro-Tor) 1 tab PO 0800 [facility] - Labs Labs: 03/28/17 08:30 03/28/17 08:30 PT 11.0 Seconds (9.9-11.8) 03/18/17 14:00 INR 1.02 (0.93-1.08) 03/18/17 14:00 APTT 28.0 Seconds (23.7-30.8) 03/18/17 14:00 - Head Exam Head Exam: NORMAL INSPECTION, NORMOCEPHALIC - Eye Exam Eye Exam: EOMI, Normal appearance - ENT Exam ENT Exam: Mucous Membranes Moist - Neck Exam Neck Exam: Full ROM, Normal Inspection - Respiratory Exam Respiratory Exam: Clear to Ausculation Bilateral. absent: Accessory Muscle Use , Rhonchi, Wheezes, Respiratory Distress - GI/Abdominal Exam GI & Abdominal Exam: Soft. absent: Distended, Firm, Guarding, Rigid, Tenderness , Mass, Pulsatile Mass - Extremities Exam Extremities Exam: Calf Tenderness, Pedal Edema. absent: Normal Capillary Refill Additional comments: Right PT and DP pulses auscultated with doppler, biphasic Left PT pulses nondopplerable , DP pulses no palpable. capillary refill 3+ seconds left foot. - Neurological Exam Neurological Exam: Alert, Awake, Normal Gait, Oriented x3 - Psychiatric Exam Psychiatric exam: Normal Affect, Normal Mood - Skin Skin Exam: Abrasion, Dry, Intact, Normal Color Additional comments: blanching erythema on cold right foot at the toes, pain on palpation Assessment and Plan - Assessment and Plan (Free Text) Assessment: 56 F presents with PVD, evaluation for AVF Plan: c/w current medical management. c/w dialysis per nephro c/w current pain management per medicine consider AVF placement d/w attending
[2017-03-28 13:47] VITALS: BP 126/61; PULSE 87
--- NOTE | 2017-03-28 18:51 | PN ---
SUBJECTIVE: The patient is a 56-year-old female, currently being treated for severe peripheral vascular disease. The patient is postop day# 2 for stent placement and angioplasty in her legs. The patent's pain is still significant on her right lower extremity. No chest pain. *------* mood for which I am following her, it seems to be improving as is her sleeping patterns at night. She has not having any adverse effect on psychotropic medications. She is awake, alert and oriented x3. Aware of her surroundings. CURRENT MEDICATIONS: Include low dose aspirin, Catapres, p.r.n. Dilaudid, Lexapro 5 mg daily, Lidoderm patch, vitamin D complex, Norvasc, Pepcid, Renagel, Protonix, Revatio, risperidone 0.25 mg at bedtime, Trandate, Xanax 1.25 mg b.i.d. and 0.5 mg at bedtime. PHYSICAL EXAMINATION: VITAL SIGNS: Blood pressure is 126/61, pulse is 87, afebrile. IMPRESSION: Severe lower extremity peripheral vascular disease. She has a history of major depression which is resolving, with severe insomnia and anxiety. She has diffuse atherosclerotic disease, end-stage renal disease with hemodialysis, hypertension, status post stent placement on lower extremities. PLAN: Continue Xanax 1.25 mg b.i.d and 0.5 mg at bedtime. Lexapro 5 mg daily and Risperdal 0.25 mg at bedtime. We will continue to monitor her mental status. Reji Garcia MD
--- NOTE | 2017-03-29 01:31 | DS ---
HISTORY OF PRESENT ILLNESS: The patient is a 56 years old, seen and examined. The patient was admitted because of chest pain. She was found to have uncontrolled hypertension. She was having weakness and numbness. She also complaints of intractable right leg pain. She was evaluated by Dr. Lucio Thomas who did angiography followed by angioplasty and her right AV shunt is malfunctioning also. The patient has difficulty walking because of pain and now she has generalized weakness and unstable gait and being transferred to TCU. PHYSICAL EXAMINATION: GENERAL: She is awake, alert, and communicative. VITAL SIGNS: She is afebrile, pulse 87, respirations 18, and blood pressure 126/61. LUNGS: Bilateral fair air flow. No rhonchi or crackles. HEART: S1 and S2 audible. ABDOMEN: Soft and nontender. No rebound. No guarding. NEUROLOGIC: The patient is awake, alert, and communicative. Moves all extremities. EXTREMITIES: Her right AV shunt has no bruit. Her right lower extremity seems to be warmer than before, but complained of pain and altered sensation below right knee and right leg and foot. ASSESSMENT: 1. Deconditioning and difficulty working. 2. Severe peripheral vascular disease, status post angioplasty. 3. Hypertension. 4. End-stage renal disease, on hemodialysis. 5. Chronic anemia. 6. Peptic ulcer disease. PLAN: The patient is going to be transferred to TCU today as soon as bed is available and I had a long discussion with [facility] area where her daughter resides instead of having procedure done here. She will rather have it done close to where her daughter lives. Brittany Coffman MD
[2017-03-29] MEDS ORDERED: Multivitamin Vitamin B Complex (Nephro-Vite) Tab PO SCH (08:00)
== END 2017-03-28 15:53 | DRG 252 ==
LOC: ED 12:26 → ERH 20:34 → 2RNO 23:04 → OBSVTOIN 03-20 16:37 → 5RNO 03-21 10:04
PROVIDERS: ADMIT Internal Medicine; ATTEND Internal Medicine
PROC: 5A1D60Z (ICD-10-PCS; 2017-03-21)
PROC: B51W1ZA Fluoroscopy of Dialysis Shunt/Fistula using Low Osmolar Contrast, Guidance (ICD-10-PCS; 2017-03-23)
PROC: 047K3ZZ Dilation of Right Femoral Artery, Percutaneous Approach (ICD-10-PCS; principal; 2017-03-26)
PROC: 047H3DZ Dilation of Right External Iliac Artery with Intraluminal Device, Percutaneous Approach (ICD-10-PCS; 2017-03-26)
DX: I70.221 Atherosclerosis of native arteries of extremities with rest pain, right leg (principal); N18.6 End stage renal disease; T82.510A Breakdown (mechanical) of surgically created arteriovenous fistula, initial encounter; I12.0 Hypertensive chronic kidney disease with stage 5 chronic kidney disease or end stage renal disease; N25.81 Secondary hyperparathyroidism of renal origin; I27.2 Other secondary pulmonary hypertension; F33.9 Major depressive disorder, recurrent, unspecified; K27.9 Peptic ulcer, site unspecified, unspecified as acute or chronic, without hemorrhage or perforation; D63.1 Anemia in chronic kidney disease; I77.1 Stricture of artery; I16.0 Hypertensive urgency; J44.9 Chronic obstructive pulmonary disease, unspecified; F41.1 Generalized anxiety disorder; K29.70 Gastritis, unspecified, without bleeding; E87.5 Hyperkalemia; K21.9 Gastro-esophageal reflux disease without esophagitis; E03.9 Hypothyroidism, unspecified; G47.00 Insomnia, unspecified; M79.672 Pain in left foot; R26.2 Difficulty in walking, not elsewhere classified; E83.39 Other disorders of phosphorus metabolism; I25.10 Atherosclerotic heart disease of native coronary artery without angina pectoris; Y83.2 Surgical operation with anastomosis, bypass or graft as the cause of abnormal reaction of the patient, or of later complication, without mention of misadventure at the time of the procedure; I25.2 Old myocardial infarction; Z95.5 Presence of coronary angioplasty implant and graft; Z99.2 Dependence on renal dialysis; Z87.891 Personal history of nicotine dependence; Z79.82 Long term (current) use of aspirin; Z91.11 Patient's noncompliance with dietary regimen; Z91.19 Patient's noncompliance with other medical treatment and regimen

== ENCOUNTER 2017-03-28 15:53 | Inpatient (IN) | payer OTHER ==
[2017-03-28] MEDS ORDERED: Magnesium Citrate Oral SOL (300 ml) PO ONE (18:50)
[2017-03-28] MEDS: HYDROmorphone 1 mg/ml ISec IVP PRN ×2 (19:43→23:07)
[2017-03-28] MEDS: Levalbuterol 1.25 MG/3 ML Inhal Soln UD IH SCH (20:58)
[2017-03-28 22:44] VITALS: BMI 25.4
[2017-03-28] MEDS ORDERED: Pneumococcal 23-Valent Vaccine IM ONE (22:44)
[2017-03-29] MEDS: Levalbuterol 1.25 MG/3 ML Inhal Soln UD IH SCH ×4 (02:09→21:00)
[2017-03-29] MEDS: HYDROmorphone 1 mg/ml ISec IVP PRN ×6 (03:35→21:57)
[2017-03-29] MEDS: Levothyroxine 75 MCG TAB PO SCH (05:46)
[2017-03-29] MEDS: Pantoprazole 40 mg EC Tab PO SCH (05:46)
[2017-03-29] MEDS: Multivitamin Vitamin B Complex (Nephro-Vite) Tab PO SCH (08:35)
[2017-03-29] MEDS: POLYETHYLENE GLYCOL 3350 17 GM/Dose PACKET PO SCH (10:37)
[2017-03-29] MEDS: Lidocaine 5% Patch TD SCH (10:37)
[2017-03-29] MEDS: Sildenafil 20 MG TAB PO SCH (10:38)
--- NOTE | 2017-03-29 10:45 | CP.PCM.PN ---
Subjective - Date & Time of Evaluation Date of Evaluation: 03/29/17 Time of Evaluation: 10:43 - Subjective Subjective: Follow up Nephrology Consultation Note covering for Dr Smith Assessment: Stable Hypertensive Chronic Kidney Disease (I12.0) End stage renal disease (N18.6) dependence on hemodialysis (Z99.2) (TTS) via permacath Anemia (D64.9), Hyperphosphatemia (E83.39), Secondary Hyperparathyroidism (E21.1 ), HTN (I12.0) Hyperkalemia, ex smoker, PVD Plan: No acute need for dialysis today. Continue with Nephrovite 1 tab/day. PRBC as needed for anemia. Not on SURINDER as last Hb 11.3 Continue with phos binders as increased, last phos level 8.7 Continue with sensipar. BP control with meds as ordered. BP labile ranging from very high to low on a given day. not on RAAS mino as tendency to have hyperkalemia. Glycemic control, Dialysis consistent low K diet Further work up/management of PVD as per primary team. she is in rehab now. Dose meds/antibiotics (if needed) for ESRD status. Avoid fleets enema/magnesium based laxatives. Thanks for allowing me to participate in care of your patient. Dr Smith will follow patient from tomorrow. Please call if any Qs Dr Marvin Calixto Office: [phone] Subjective: Noted events overnight. Patients feels okay. Denies chest pain, palpitation, shortness of breath, leg swelling. No urinary complaints. c/o leg pain Physical Examination: General Appearance: Comfortable, in no acute respiratory distress, co- operative. Vitals reviewed and noted as below Lungs: Normal respiratory rate/effort. Breath sounds bilateral equal and clear Heart: Increased rate. s1s2 normal. No rub or gallop. Extremities: no edema. LUE echymoses + Neurological: Patient is alert, awake and oriented to person, place and time. No focal deficit. Strength bilateral appropriate and equal Skin: Warm and dry. Normal turgor. No rash. Palpitation: Normal elasticity for age Abdomen: Abdomen is soft. Bowel sounds +. There is no abdominal tenderness, no guarding/rigidity or organomegaly : kidney or bladder not palpable Access: permacath Labs/imaging reviewed. Past medical history, past surgical history, family history, social history, allergy reviewed Objective - Vital Signs/Intake and Output Vital Signs (last 24 hours): Temp Pulse Resp BP Pulse Ox 99 F 107 H 20 96/48 L 03/28/17 22:27 03/28/17 22:27 03/28/17 22:27 03/28/17 22:27 Intake and Output: 03/29/17 03/29/17 06:59 18:59 Intake Total 360 Balance 360 - Medications Medications: Current Medications Alprazolam (Xanax) 0.5 mg PO HS ZANA PRN Reason: Protocol Last Admin: 03/28/17 21:38 Dose: 0.5 mg Amlodipine Besylate (Norvasc) 10 mg PO DAILY ZANA PRN Reason: Protocol Aspirin (Aspirin Chewable) 81 mg PO 0800 ZANA PRN Reason: Protocol Last Admin: 03/29/17 08:36 Dose: 81 mg Cinacalcet (Sensipar) 30 mg PO DAILY ZANA PRN Reason: Protocol Clonidine HCl (Catapres) 0.2 mg PO TID ZANA PRN Reason: Protocol Clopidogrel Bisulfate (Plavix) 75 mg PO DAILY ZANA PRN Reason: Protocol Escitalopram Oxalate (Lexapro) 5 mg PO DAILY ZANA PRN Reason: Protocol Famotidine (Pepcid) 10 mg PO BID PRN; Protocol PRN Reason: Pain, Mild (1-3) Hydromorphone HCl (Dilaudid) 1 mg IVP Q4H PRN; Protocol PRN Reason: Pain, severe (8-10) Last Admin: 03/29/17 08:36 Dose: 1 mg Labetalol HCl (Trandate) 100 mg PO BID ZANA PRN Reason: Protocol Levalbuterol HCl (Xopenex) 1.25 mg IH [id number] ZANA PRN Reason: Protocol Last Admin: 03/29/17 07:26 Dose: 1.25 mg Levothyroxine Sodium (Synthroid) 75 mcg PO 0600 ZANA PRN Reason: Protocol Last Admin: 03/29/17 05:46 Dose: 75 mcg Lidocaine (Lidoderm) 1 ea TD DAILY ZANA PRN Reason: Protocol Ondansetron HCl (Zofran Inj) 4 mg IVP Q6H PRN; Protocol PRN Reason: Nausea/Vomiting Pantoprazole Sodium (Protonix Ec Tab) 40 mg PO 0600 ZANA PRN Reason: Protocol Last Admin: 03/29/17 05:46 Dose: 40 mg Polyethylene Glycol (Miralax) 17 gm PO DAILY ZAAN PRN Reason: Protocol Risperidone (Risperdal Tab) 0.25 mg PO 2200 ZANA PRN Reason: Protocol Last Admin: 03/28/17 21:38 Dose: 0.25 mg Sevelamer HCl (Renagel) 2,400 mg PO 0800,1200,1700,2200 ZANA PRN Reason: Protocol Last Admin: 03/29/17 08:36 Dose: 2,400 mg Sildenafil Citrate (Revatio) 20 mg PO DAILY ZANA PRN Reason: Protocol Vitamin B Complex/Vit C/Folic Acid (Nephro-Tor) 1 tab PO 0800 ZANA PRN Reason: Protocol Last Admin: 03/29/17 08:35 Dose: 1 tab
[2017-03-30] MEDS: Levalbuterol 1.25 MG/3 ML Inhal Soln UD IH SCH ×4 (02:30→20:49)
[2017-03-30] MEDS: HYDROmorphone 1 mg/ml ISec IVP PRN ×3 (03:59→10:34)
[2017-03-30] MEDS: Levothyroxine 75 MCG TAB PO SCH (05:51)
[2017-03-30] MEDS: Pantoprazole 40 mg EC Tab PO SCH (05:52)
[2017-03-30] MEDS: Multivitamin Vitamin B Complex (Nephro-Vite) Tab PO SCH (08:37)
[2017-03-30] MEDS: Lidocaine 5% Patch TD SCH (10:16)
[2017-03-30] MEDS: POLYETHYLENE GLYCOL 3350 17 GM/Dose PACKET PO SCH (10:16)
[2017-03-30] MEDS: Sildenafil 20 MG TAB PO SCH (10:17)
[2017-03-30] MEDS ORDERED: Magnesium Citrate Oral SOL (300 ml) PO ONE (13:05)
[2017-03-30] MEDS: HYDROmorphone 2 mg/ml ISec IVP PRN ×3 (14:12→21:40)
--- NOTE | 2017-03-30 19:55 | PN ---
DATE: 03/30/2017 SUBJECTIVE: The patient is seen, sitting in bed. She is awake. She is alert. She is complaining of severe pain in her lower extremities, she is complaining of pain in her left hand, left arm. PHYSICAL EXAMINATION GENERAL: Middle-aged lady sitting in bed. VITAL SIGNS: Blood pressure 118/84, heart rate 90, respiratory rate 14, and temperature 97.9. HEENT: Normocephalic and atraumatic. NECK: Supple. No JVD. LUNGS: Bilateral equal air entry. CARDIAC: S1 and S2. Regular rate, and rhythm. No murmur. No rubs. ABDOMEN: Soft, nondistended and nontender. Bowel sounds present. EXTREMITIES: Extensive ecchymosis in the left upper arm, no lower extremity edema. LABORATORY DATA: No new labs. CURRENT MEDICATIONS: Aspirin, Catapres, Dilaudid, Lexapro, Lidoderm, MiraLax, Nephro-Tor, amlodipine, Pepcid, Plavix, Protonix, Renagel, Revatio, Risperdal, Sensipar, Synthroid, Trandate, Tylenol, Xanax, Xopenex, Zofran. ASSESSMENT: 1. Hypertension. 2. Extensive peripheral vascular disease. 3. Chronic obstructive pulmonary disease. 4. End-stage renal disease. 5. Hyperphosphatemia. 6. Secondary hyperparathyroidism. PLAN: 1. Dialysis tomorrow. 2. Continue phosphate binders. 3. Continue pain management. 4. Physical therapy. 5. Vascular surgery evaluation. Tamanna Smith MD
--- NOTE | 2017-03-30 23:03 | CON ---
DATE: 03/30/2017 HISTORY OF PRESENT ILLNESS: The patient is a 56-year-old female currently being treated on transitional care unit. I reviewed the chart. I spoke to nursing staff. The patient currently has been treated with acute rehabilitation for severe peripheral vascular disease with severe pain. She has end-stage renal disease and she is on hemodialysis. She said the pain wakes her up at night. She has a long history of depression, insomnia, and anxiety which is gradually improving with current psychotropic medicines. Her mental status reveals that she is awake, alert, coherent, loose and oriented x3. No suicidal ideations, psychotic symptoms. Judgment and insight is good. Her sensorium is totally clear. She is oriented x3. PAST MEDICAL HISTORY: Includes, she has a history of hypertension. She has a past history of substance abuse. She has end-stage renal disease. She has had hallucinations and mild delirium in the past. PERSONAL HISTORY: She lives with her 30-year-old son. The patient has been twice. She also has a daughter. The patient has no history of alcohol abuse. CURRENT MEDICATIONS: Include, Lexapro 5 mg daily, aspirin, Catapres, p.r.n. Dilaudid, Lidoderm, MiraLax, Nephro-Tor, Norvasc, Pepcid, Plavix, Renagel, Revatio, Risperdal 0.25 mg at bedtime, Synthroid, Trandate, Xanax 1.25 mg b.i.d. and 0.5 mg at bedtime. REVIEW OF SYSTEMS: She *------* bilateral leg pain. The patient has weakness in her legs, generalized weakness otherwise 12-point review of systems is not contributory. LABORATORY DATA: There is no recent laboratory data; although, her most recent lab work revealed a white count of 77,000, hemoglobin 11.1, this was on 03/28/2017. Most recent chemistries on 03/28/2017 showed normal electrolytes except for potassium 3.5, creatinine 2.0, BUN 13, estimated GFR 26. Rest of profile is normal except for an alk phos 264. She has a history of very low vitamin D level. PHYSICAL EXAMINATION: VITAL SIGNS: Blood pressure 89/41, pulse 90, respirations 14 per minute and O2 saturation 96%. IMPRESSION: The patient has major depression with severe anxiety and insomnia, resolving. The patient has end-stage renal disease. She has severe peripheral vascular disease. She has a history of hypothyroidism and chronic obstructive pulmonary disease. PLAN: Continue both psychotropic medicine. We will continue to monitor mental status. Reji Garcia MD
--- NOTE | 2017-03-31 00:19 | HP ---
HISTORY OF PRESENT ILLNESS: The patient is 56-year-old who came in with intractable right leg pain and her right leg was cold. She was evaluated by Dr. Lucio Thomas who did angiogram and angioplasty on the right femoral and tibial with some improvement, now she complains of pain in the left leg. The patient still is having difficulty walking and stable gait, was transferred to DCU for rehab. PAST MEDICAL HISTORY: 1. Hypertension. 2. Coronary artery disease, status post angioplasty. 3. COPD. 4. End-stage renal disease on hemodialysis. 5. Status post right carotid angioplasty. 6. Status post right AV fistula, but it is malfunctioning now. ALLERGIES: SHE IS ALLERGIC TO CIPRO, HYDRALAZINE AND VANCOMYCIN. MEDICATIONS: As per MAR. PHYSICAL EXAMINATION GENERAL: She is awake and alert, communicative. VITAL SIGNS: She is afebrile, pulse 90, respirations 14, blood pressure 89/41. CARDIOPULMONARY: S1 and S2 audible. LUNGS: Bilateral fair airflow, no rhonchi or crackle. ABDOMEN: Soft, nontender. No rebound. No guarding. NEUROLOGIC: The patient is awake and alert, able to communicate, complains of pain in both legs. She states medication Dilaudid is not helping, she want to increase the dose somewhat because it wears off very quickly. ASSESSMENT: 1. Peripheral vascular disease. 2. Malfunctioning arteriovenous shunt. 3. Hypertension. 4. End-stage renal disease on hemodialysis. 5. History of depression. 6. Coronary artery disease, status post angioplasty. PLAN: I will increase her morphine to 1.5 q.4 hours p.r.n. and continue all her medications, The patient had a long discussion about her other comorbidities including peripheral vascular disease and need for new AV shunt formation. The patient states she wants to have vascular procedure done in [place] where her daughter resides that will be much easier for her, so she will seek vascular surgical intervention in hospital in that area. Her daughter is trying to make arrangement and get appointment with vascular surgeon in [facility] and [facility], so the patient will stay in DCU, will receive physical therapy and will get her hemodialysis as scheduled. We will reevaluate the patient in a.m. Brittany Coffman MD [facility] # [id number]
[2017-03-31] MEDS: Levalbuterol 1.25 MG/3 ML Inhal Soln UD IH SCH ×4 (02:10→20:28)
[2017-03-31] MEDS: HYDROmorphone 2 mg/ml ISec IVP PRN ×5 (05:07→22:37)
[2017-03-31] MEDS: Pantoprazole 40 mg EC Tab PO SCH (05:09)
[2017-03-31] MEDS: Levothyroxine 75 MCG TAB PO SCH (05:09)
[2017-03-31] MEDS: Multivitamin Vitamin B Complex (Nephro-Vite) Tab PO SCH (10:10)
[2017-03-31] MEDS: POLYETHYLENE GLYCOL 3350 17 GM/Dose PACKET PO SCH (10:26)
[2017-03-31] MEDS: Lidocaine 5% Patch TD SCH (10:26)
[2017-03-31] MEDS: Sildenafil 20 MG TAB PO SCH (10:27)
--- NOTE | 2017-03-31 13:42 | PN ---
DATE: SUBJECTIVE: The patient is a 56-year-old female, currently being treated for severe peripheral vascular disease, receiving physical therapy on the transitional care unit. Today, she is quite nauseous, vomiting. She states that she has been waking up at 1 in the morning, falling back to sleep after a while. She has endstage renal disease, also on hemodialysis three times a week. The patient has severe pain from her peripheral vascular disease in her lower extremities and receiving hydromorphone 1.5 mg IV q. 3 hours p.r.n. MEDICATIONS: Include aspirin, clonidine, magnesium, Lexapro 5 mg daily for depression, ethylene glycol, vitamin D complex, Norvasc, Pepcid, Plavix, Protonix, Renagel, Revatio, Risperdal 0.25 mg at bedtime, Sensipar, Synthroid, Trandate, alprazolam 0.5 mg at bedtime. MENTAL STATUS: The patient's current mental status reveals that she is awake, she is alert. Some depressed facies. She says she feels nauseous. She has thrown up as noted above earlier. She is oriented x3. Recent and remote memory are intact. She is quite distraught, appropriately so about her physical condition. No hallucinations, paranoia or suicidal ideation. Judgement is intact. REVIEW OF SYSTEMS: 12 point review of systems noncontributory. PHYSICAL EXAMINATION VITAL SIGNS: Blood pressure is 120/50, pulse 113, respirations 18 per minute and afebrile, O2 saturation 100%. IMPRESSION: The patient has a history of major depression with insomnia, anxiety improving, history of hypertensive disease. She has severe lower extremity peripheral vascular disease, chronic obstructive pulmonary disease, endstage renal disease with hemodialysis, hypophosphatemia, secondary hyperparathyroidism. PLAN: We will increase Risperdal to 0.5 mg p.o. at bedtime. Continue Lexapro 5 mg daily. Continue Xanax 0.5 mg at bedtime. We will closely monitor her mental status. Reji Garcia MD [facility]
--- NOTE | 2017-03-31 13:43 | PN ---
SUBJECTIVE: The patient is currently seen in the TCU sitting up in bed. She states she is scheduled for a third shift dialysis today. She continues to complain of pain in her leg secondary to extensive peripheral vascular disease. She is awaiting a possible creation of an AV access in her left upper extremity, but the timing of this and the surgeon who will do this at this point in time is unclear. The patient continues to remain mildly hyperkalemic. We did discuss the possibility of her taking Kayexalate on her non-dialysis days. MEDICATIONS: Mediation list reviewed. The patient is currently on aspirin, clonidine, Dilaudid, Lexapro, Lidoderm, MiraLax, Nephro-Tor, Norvasc, Pepcid, Plavix, Protonix, Renagel, Revatio, Risperdal, Sensipar, Synthroid, Trandate, Tylenol p.r.n., Xanax, Xopenex and Zofran p.r.n. OBJECTIVE: VITAL SIGNS: Blood pressure of 156/52, temperature of 98.1, and respiratory rate is 20 with a pulse of 77. HEENT: Shows her to be normocephalic and atraumatic. Conjunctivae are pale. Sclerae are nonicteric. NECK: Supple. No neck vein distention. CHEST: Clear to auscultation and percussion. LUNGS: No rales, no rhonchi and no wheezing. CARDIOVASCULAR: Shows irregular rate and rhythm without murmurs, rubs or gallops. ABDOMEN: Soft. Bowel sounds are normal. No rebound, no guarding, and no masses EXTREMITIES: Showed no lower extremity edema. She has a PermCath in her right chest wall. She has no cyanosis, no clubbing. She has significantly decreased lower extremity pulses bilaterally. She has an area of ecchymosis over her left upper extremity. LABORATORY DATA AND IMAGING: Pre-dialysis labs are pending. We will need to focus carefully on her potassium level. The patient states she has been adherent to a low potassium diet. ASSESSMENT: 1. End stage renal disease. The patient will continue Thursday and dialysis as per routine. The patient may receive an extra dialysis if she is volume overloaded or if she is severely hyperkalemic. 2. History of hypertension. Blood pressure control has improved with routine follow up with dialysis and medications. 3. History of chronic obstructive pulmonary disease, currently stable. 4. History of severe lower extremity peripheral vascular disease, the patient is symptomatic. The patient will likely need a second opinion regarding her lower extremity peripheral vascular disease. 5. History of secondary hyperparathyroidism. The patient will continue renal diet and binder therapy. 6. History of anemia secondary to chronic kidney disease. The patient will continue Aranesp per protocol. PLAN: 1. Hemodialysis scheduled for later today. 2. The patient is awaiting possible creation of a new access in her left upper extremity for dialysis. This will allow us to remove the PermCath. 3. The patient would like a second opinion regarding possible vascular surgery or interventional radiology to improve circulation into her lower extremity, as the patient is symptomatic and is in pain. Sampson Hutchins MD [email or web address]
[2017-03-31] MEDS ORDERED: Iron Sucrose 100 mg/5 ml Inj IVP ONE (14:00)
[2017-03-31 15:33] LABS: BASO # 0.02 K/mm3 (0.0-2.0); BASO % 0.2 % (0.0-3.0); EOS % 0.4 % (1.5-5.0); GRAN # 9.17 (1.4-6.5); GRAN % 84.6 % (50.0-68.0); HEMOGLOBIN 9.8 gm/dL (12.0-16.0); LYMPH # 0.8 (1.2-3.4); MEAN CELL VOLUME 98.5 fL (80.0-105.0); MEAN CORPUSCULAR HEMOGLOBIN 28.8 pg (25.0-35.0); MEAN CORPUSCULAR HGB CONC 29.3 g/dl (31.0-37.0); MEAN PLATELET VOLUME 10.8 fl (7.0-11.0); MONO # 0.8 (0.1-0.6); MONO % 7.8 % (1.0-6.0); PLATELET COUNT 229 10^3/uL (120.0-450.0); RED CELL DISTRIBUTION WIDTH 16.5 % (11.5-14.5); WHITE BLOOD COUNT 10.8 10^3/ul (4.5-11.0)
--- NOTE | 2017-03-31 15:39 | PN ---
SUBJECTIVE: The patient is 56 years old, seen and examined, and complaining of discomfort in the vaginal and perineal area. She also complaint of constipation, has not gone to the bathroom for almost 1 week, not eating that well either, and complaining of bilateral leg pain. PHYSICAL EXAMINATION: VITAL SIGNS: She is afebrile, pulse 113, respirations 18, and blood pressure 120/50. LUNGS: Bilateral fair airflow. No rhonchi or crackle. HEART: S1 and S2 audible. ABDOMEN: Soft. Left lower quadrant and upper quadrant discomfort. NEUROLOGIC: The patient is awake and alert and communicative. She has small ulceration at the junction of thigh to the perineal area. ASSESSMENT: 1. Peripheral vascular disease, status post angioplasty. 2. End-stage renal disease, on hemodialysis. 3. Deconditioning and difficulty walking. 4. Hypertension. PLAN: I will give her another dose of Relistor and I will give one dose of lactulose now and then if she do not have bowel movement, I will give her Dulcolax. We will apply Silvadene cream to her ulceration and Desitin to the perineal and perirectal area. Brittany Coffman MD
[2017-03-31 15:42] LABS: CALCIUM 8.2 mg/dL (8.4-10.5); MAGNESIUM 2.7 mg/dL (1.7-2.2)
[2017-03-31 15:56] LABS: ALB/GLOB RATIO 1.6 (1.1-1.8)
[2017-03-31] MEDS: Silver Sulfadiazine 1% Cream (20 gm) TOP SCH (19:43)
[2017-04-01] MEDS: Levalbuterol 1.25 MG/3 ML Inhal Soln UD IH SCH ×4 (06:12→19:58)
[2017-04-01] MEDS: Pantoprazole 40 mg EC Tab PO SCH (06:20)
[2017-04-01] MEDS: Levothyroxine 75 MCG TAB PO SCH (06:21)
[2017-04-01] MEDS: HYDROmorphone 2 mg/ml ISec IVP PRN ×5 (08:17→22:14)
[2017-04-01] MEDS: Multivitamin Vitamin B Complex (Nephro-Vite) Tab PO SCH (08:25)
[2017-04-01] MEDS: Lidocaine 5% Patch TD SCH (10:48)
[2017-04-01] MEDS: POLYETHYLENE GLYCOL 3350 17 GM/Dose PACKET PO SCH (10:49)
[2017-04-01] MEDS: Sildenafil 20 MG TAB PO SCH (10:51)
[2017-04-01] MEDS: Silver Sulfadiazine 1% Cream (20 gm) TOP SCH ×2 (10:52→18:49)
--- NOTE | 2017-04-01 18:14 | CP.PCM.PN ---
Subjective - Date & Time of Evaluation Date of Evaluation: 04/01/17 Time of Evaluation: 18:12 - Subjective Subjective: pt needs angiocath insertion. Objective - Vital Signs/Intake and Output Vital Signs (last 24 hours): Temp Pulse Resp BP Pulse Ox 98.3 F 78 20 87/42 L 98 04/01/17 16:00 04/01/17 16:00 04/01/17 16:00 04/01/17 16:00 04/01/17 16:00 Intake and Output: 04/01/17 04/01/17 06:59 18:59 Intake Total 420 Balance 420 - Medications Medications: Current Medications Acetaminophen (Tylenol 325mg Tab) 650 mg PO Q6H PRN; Protocol PRN Reason: Pain, moderate (4-7) Alprazolam (Xanax) 0.5 mg PO HS ZANA PRN Reason: Protocol Last Admin: 03/31/17 22:48 Dose: 0.5 mg Amlodipine Besylate (Norvasc) 10 mg PO DAILY ZANA PRN Reason: Protocol Last Admin: 04/01/17 10:49 Dose: 10 mg Aspirin (Aspirin Chewable) 81 mg PO 0800 ZANA PRN Reason: Protocol Last Admin: 04/01/17 08:25 Dose: 81 mg Cinacalcet (Sensipar) 30 mg PO DAILY ZANA PRN Reason: Protocol Last Admin: 04/01/17 10:52 Dose: 30 mg Clonidine HCl (Catapres) 0.2 mg PO TID ZANA PRN Reason: Protocol Last Admin: 04/01/17 16:23 Dose: Not Given Clopidogrel Bisulfate (Plavix) 75 mg PO DAILY ZANA PRN Reason: Protocol Last Admin: 04/01/17 10:51 Dose: 75 mg Escitalopram Oxalate (Lexapro) 5 mg PO DAILY ZANA PRN Reason: Protocol Last Admin: 04/01/17 10:48 Dose: 5 mg Famotidine (Pepcid) 10 mg PO BID PRN; Protocol PRN Reason: Pain, Mild (1-3) Hydromorphone HCl (Dilaudid) 1.5 mg IVP Q3H PRN; Protocol PRN Reason: Pain, severe (8-10) Last Admin: 04/01/17 16:22 Dose: 1.5 mg Labetalol HCl (Trandate) 100 mg PO BID ZANA PRN Reason: Protocol Last Admin: 04/01/17 10:53 Dose: 100 mg Levalbuterol HCl (Xopenex) 1.25 mg IH [id number] ZANA PRN Reason: Protocol Last Admin: 04/01/17 13:38 Dose: 1.25 mg Levothyroxine Sodium (Synthroid) 75 mcg PO 0600 ZANA PRN Reason: Protocol Last Admin: 04/01/17 06:21 Dose: 75 mcg Lidocaine (Lidoderm) 1 ea TD DAILY ZANA PRN Reason: Protocol Last Admin: 04/01/17 10:48 Dose: 1 ea Ondansetron HCl (Zofran Inj) 4 mg IVP Q6H PRN; Protocol PRN Reason: Nausea/Vomiting Last Admin: 04/01/17 08:17 Dose: 4 mg Pantoprazole Sodium (Protonix Ec Tab) 40 mg PO 0600 ZANA PRN Reason: Protocol Last Admin: 04/01/17 06:20 Dose: 40 mg Polyethylene Glycol (Miralax) 17 gm PO DAILY ZANA PRN Reason: Protocol Last Admin: 04/01/17 10:49 Dose: 17 gm Risperidone (Risperdal Tab) 0.5 mg PO HS ZANA Last Admin: 03/31/17 22:44 Dose: 0.5 mg Sevelamer HCl (Renagel) 2,400 mg PO 0800,1200,1700,2200 ZANA PRN Reason: Protocol Last Admin: 04/01/17 08:24 Dose: 2,400 mg Sildenafil Citrate (Revatio) 20 mg PO DAILY ZANA PRN Reason: Protocol Last Admin: 04/01/17 10:51 Dose: 20 mg Silver Sulfadiazine (Silvadene 1% 20 Gm) 0 ea TOP BID ZANA Last Admin: 04/01/17 10:52 Dose: 1 applic Vitamin B Complex/Vit C/Folic Acid (Nephro-Tor) 1 tab PO 0800 ZANA PRN Reason: Protocol Last Admin: 04/01/17 08:25 Dose: 1 tab - Labs Labs: 03/31/17 14:23 03/31/17 14:23 Assessment and Plan - Assessment and Plan (Free Text) Assessment: 24 guage angiocath inserted in rt wrist area.
--- NOTE | 2017-04-01 18:48 | PN ---
SUBJECTIVE: The patient is seen, sitting in bed. She is awake. She is alert. She complains of pain in her right lower extremity. She complains of pain in her left upper arm. PHYSICAL EXAMINATION GENERAL: Middle-aged lady sitting in bed. VITAL SIGNS: Blood pressure 110/40, heart rate 93, respiratory rate 18, temperature 98. HEENT: Normocephalic, atraumatic. NECK: Supple. No JVD. LUNGS: Bilateral rhonchi, equal expansion. CARDIAC: S1 and S2, regular rate and rhythm. No murmur. No rubs. ABDOMEN: Obese, distended, soft, nontender. Bowel sounds present. EXTREMITIES: No lower extremity edema. LABORATORY DATA: Hemoglobin 9.8, potassium 6.3 predialysis yesterday. CURRENT MEDICATIONS: List reviewed. ASSESSMENT: 1. Peripheral vascular disease. 2. End-stage renal disease. 3. Hypertension. 4. Anemia. PLAN: 1. Stable dialysis yesterday. 2. Awaiting surgical evaluation? 3. Severe peripheral vascular disease, continue Plavix. Tamanna Smith MD
[2017-04-01] MEDS ORDERED: HYDROmorphone 1 mg/ml ISec IVP PRN (19:14)
--- NOTE | 2017-04-01 20:12 | PN ---
SUBJECTIVE: The patient is a 56 years old, seen and examined. She states finally she had bowel movement today. She feels better. She did have pain in the her right groin where she has ulceration, complaining of pain in both legs. PHYSICAL EXAMINATION VITAL SIGNS: She is afebrile. Pulse 70, respirations 20, blood pressure 110/40. LUNGS: Bilateral fair airflow. No rhonchi or crackles. HEART: S1 and S2 audible. ABDOMEN: Soft. Nontender. No rebound. No guarding. NEUROLOGIC: The patient is awake and alert, able to communicate. Moves all extremities. Has generalized weakness. LABORATORY DATA: There is no new lab available today. ASSESSMENT AND PLAN: Currently, the patient is to doing physical therapy. She is on her usual medication. She is receiving Dilaudid as needed. I will continue her on lactulose. She is on Lexapro. She is on Norvasc and Pepcid. Continue physical therapy. The patient's daughter is making arrangement to have vascular surgeon arranged . Brittany Coffman MD
[2017-04-02] MEDS: Levalbuterol 1.25 MG/3 ML Inhal Soln UD IH SCH ×4 (01:06→20:04)
[2017-04-02] MEDS: HYDROmorphone 2 mg/ml ISec IVP PRN ×3 (01:32→09:54)
[2017-04-02] MEDS: Pantoprazole 40 mg EC Tab PO SCH (05:46)
[2017-04-02] MEDS: Levothyroxine 75 MCG TAB PO SCH (05:46)
[2017-04-02] MEDS: Multivitamin Vitamin B Complex (Nephro-Vite) Tab PO SCH (08:40)
[2017-04-02] MEDS: Lidocaine 5% Patch TD SCH (09:57)
[2017-04-02] MEDS: POLYETHYLENE GLYCOL 3350 17 GM/Dose PACKET PO SCH (09:58)
[2017-04-02] MEDS: Sildenafil 20 MG TAB PO SCH (10:00)
[2017-04-02] MEDS: Silver Sulfadiazine 1% Cream (20 gm) TOP SCH ×2 (10:00→17:27)
--- NOTE | 2017-04-02 11:39 | PN ---
DATE: 04/02/2017 SUBJECTIVE: The patient is seen sitting in bed. She is awake. She is very upset. She is crying. She is complaining of severe pain in her left leg. She denies any chest pain at present. She reports shortness of breath because of the pain in her leg. PHYSICAL EXAMINATION GENERAL: Middle-aged lady sitting in bed. VITAL SIGNS: Blood pressure 126/50, heart rate 93, respiratory rate 20, temperature 98. HEENT: Normocephalic, atraumatic. NECK: Supple. No JVD. LUNGS: Bilateral equal air entry, bilateral rhonchi. CARDIAC: S1 and S2, regular rate and rhythm. No murmur. No rubs. ABDOMEN: Obese, distended, soft, nontender. Bowel sounds present. EXTREMITIES: No lower extremity edema. LABORATORY DATA: No new labs. CURRENT MEDICATIONS: Clonidine 0.2 t.i.d., Dilaudid, Lexapro, Lidoderm, MiraLax, Nephro-Tor, amlodipine 10 mg, Pepcid, Plavix, Protonix, Renagel, Revatio, Risperdal, Sensipar 30, Synthroid, Trandate, , Tylenol, Xanax, Zofran. Several angiogram done on March 26 showed calcified chronic left femoral artery occlusion which could not be crossed, bilateral SFA occlusions, successful right external iliac artery angioplasty, successful right profunda femoral artery angioplasty. Lower extremity arterial Doppler showing diffuse atherosclerotic disease of the right common femoral artery. Patent right common femoral artery with right profunda femoral artery origin. ASSESSMENT: 1. Severe diffuse peripheral vascular disease. 2. Atherosclerotic disease. 3. Ischemic pain in the left leg. 4. Hypertension. 5. End-stage renal disease. PLAN: 1. Continue pain management. 2. The patient would like to seek surgical opinion/second opinion. 3. Dialysis today. Tamanna Smith MD
[2017-04-02] MEDS: TraMADol/Apap 37.5/325 mg Tab PO PRN ×2 (13:16→21:14)
--- NOTE | 2017-04-02 14:39 | PN ---
PSYCHIATRIC PROGRESS NOTE SUBJECTIVE: The patient is a 56-year-old female. She is currently being treated on the transitional care unit. I spoke with the patient, spoke with the nursing staff and I spoke with her attending physician at length. The patient has multiple medical problems including chronic pain, from severe lower extremity peripheral vascular disease. She also has had ongoing major depression, with insomnia and anxiety, which is gradually improving. PHYSICAL EXAMINATION: VITAL SIGNS: Current vital signs blood pressure of 126/50, pulse of 93, and respirations of 18 per minute. She is a afebrile. MENTAL STATUS: The patient's current mental status reveals, she is awake and alert, somewhat despondent for a lounge. ,She complains of hearing voices in her head, having conversation. She is also frightened that they are talking about her. She has no suicidal ideation; however, she has been depressive at times. She has difficulty sleeping during the night, she is awaken due to lower extremity pain, requesting pain medication. She is oriented x3. Recent and remote memory are intact. CURRENT MEDICATIONS: Include low dose aspirin, Catapres, p.r.n. Dilaudid every 3 hours IV, Lexapro 5 mg daily, Lidoderm, folate, vitamin D complex, Norvasc, Pepcid, Plavix, Protonix, Renagel Revatio, risperidone 0.5 mg at bedtime, Sensipar, Synthroid, Trandate, and Xanax 0.5 mg at bedtime. LABORATORY DATA: The patient's most recent laboratory data revealed white count of 10,800, hemoglobin of 9.8, and platelet count of 229,000. Her most recent metabolic profile on 03/31/2017, revealed the sodium of 137, potassium of 6.3, chloride of 97, CO2 of 20, anion gap of 26, BUN of 94, creatinine of 11.8, and estimated GFR of 3. The patient receives hemodialysis three times a week. Also her calcium is 8.2, phosphorus is 7.5, magnesium is 2.7, AST is 44, and ALT is 33. Rest of her liver function is normal. IMPRESSION: The patient has slowly resolving depressive disorder secondary to end-stage renal disease, hemodialysis, severe peripheral vascular disease with recent stenting. The patient also has chronic anemia. She has hypertension, hyperparathyroidism, and chronic pain. History of substance abuse in the past. PLAN: The case discussed with Dr. Coffman. I will order Lexapro 5 mg daily, Xanax 0.5 mg at bedtime, and Risperdal 0.5 mg at bedtime. I have advised the patient to take only minimum dose of opioids that has contributing to auditory hallucinations. We will also order Risperdal 0.5 mg daily in the a.m. for ten days. Reji Garcia MD
--- NOTE | 2017-04-02 15:11 | PN ---
DATE: SUBJECTIVE: The patient is a 56-year-old seen and examined. Discussed with the nursing staff who said she asked for pain pill that required frequently. She was found to be hallucinating. She is hearing voices as noted by psychiatrist. Also complained of pain in the perineal area where she has a small ulcer in the perineal folds. She also complained of pain in both legs. Her constipation did relieved. She has a bowel movement yesterday. PHYSICAL EXAMINATION: VITAL SIGNS: She is afebrile, pulse 93, respiration 14, blood pressure 126/50. LUNGS: Bilateral fair air flow. No rhonchi or crackles. HEART: S1 and S2 audible. ABDOMEN: Soft and nontender. No rebound. No guarding. NEUROLOGICAL: The patient is awake and alert, able to communicate. EXTREMITIES: Her both legs below knee are relatively cold and has feeble pulses. ASSESSMENT: 1. Severe peripheral vascular disease. 2. Status post right leg angioplasty by Dr. Lucio Thomas. 3. End-stage renal disease, on hemodialysis. 4. Coronary artery disease, status post angioplasty. 5. Hypertension. 6. Chronic anemia. 7. Constipation. PLAN: We will continue the patient on current medical treatment. We will cut down her Dilaudid for severe pain. Start her on Ultracet to alleviate narcotic-induced confusion. Discussed with the patient at length. She wants to go to back to [facility] and she will be discharged on Thursday and she will get admitted in Tertiary Care Unit on Thursday. Brittany Coffman MD
[2017-04-02] MEDS: HYDROmorphone 1 mg/ml ISec IVP PRN ×2 (17:06→22:06)
[2017-04-03] MEDS: HYDROmorphone 1 mg/ml ISec IVP PRN ×4 (04:08→19:32)
[2017-04-03] MEDS: Pantoprazole 40 mg EC Tab PO SCH (05:33)
[2017-04-03] MEDS: Levothyroxine 75 MCG TAB PO SCH (05:33)
[2017-04-03] MEDS ORDERED: HYDROmorphone 0.5 mg/0.5 ml ISec IVP STA (05:45)
[2017-04-03] MEDS: Levalbuterol 1.25 MG/3 ML Inhal Soln UD IH SCH ×3 (07:33→20:34)
[2017-04-03] MEDS: Multivitamin Vitamin B Complex (Nephro-Vite) Tab PO SCH (08:55)
[2017-04-03] MEDS: TraMADol/Apap 37.5/325 mg Tab PO PRN ×2 (08:59→17:25)
[2017-04-03] MEDS: Lidocaine 5% Patch TD SCH (11:12)
[2017-04-03] MEDS: POLYETHYLENE GLYCOL 3350 17 GM/Dose PACKET PO SCH (11:14)
[2017-04-03] MEDS: Sildenafil 20 MG TAB PO SCH (11:15)
[2017-04-03] MEDS: Silver Sulfadiazine 1% Cream (20 gm) TOP SCH ×2 (11:15→17:21)
--- NOTE | 2017-04-03 15:19 | PN ---
SUBJECTIVE: The patient is a 56-year-old, seen and examined. Complain of bilateral leg pain, left more than the right. She has angioplasty done in the right. No nausea or vomiting today. Eating and tolerating. PHYSICAL EXAMINATION: VITAL SIGNS: She is afebrile, pulse 95, respirations 20, blood pressure 164/86. LUNGS: Bilateral fair air flow. No rhonchi or crackles. HEART: S1 and S2 audible. No murmur. ABDOMEN: Soft and nontender. No rebound. No guarding. NEUROLOGICAL: The patient is awake and alert, able to communicate. EXTREMITIES: Left leg, she has red spot, seems to be painful. LABORATORY DATA: There are no new labs available today. ASSESSMENT AND PLAN: 1. Severe peripheral vascular disease. 2. End-stage renal disease, on hemodialysis. 3. Hypertension. 4. Status post right leg angioplasty. 5. Peptic ulcer disease. 6. Chronic pain syndrome. PLAN: Request Dr. Lucio Thomas to reevaluate since she is having ischemic pain in her left leg now. In the meantime, we will continue her on tramadol and Dilaudid as a backup. She will have her hemodialysis done tomorrow. She is scheduled to be discharged on Thursday. Follow up this patient in a.m. Brittany Coffman MD
--- NOTE | 2017-04-03 16:28 | PN ---
DATE: 04/03/2017 SUBJECTIVE: The patient is seen, sitting in bed. She is awake, she is alert. She has been in the lot of pain. She is crying. She is very upset. PHYSICAL EXAMINATION GENERAL: Middle-aged lady sitting in bed, in moderate distress. VITAL SIGNS: Blood pressure 108/44, heart rate 73, respiratory rate 18, temperature 98. HEENT: Normocephalic, atraumatic. NECK: Supple. No JVD. LUNGS: Bilateral rhonchi, no rales. CARDIAC: S1 and S2, regular rate and rhythm. No murmur. No rubs. ABDOMEN: Obese, distended, soft, nontender. Bowel sounds present. EXTREMITIES: Mottling of the left lower extremity, blisters on the right lower extremity. LABORATORY DATA: Potassium 4.2 yesterday. CURRENT MEDICATIONS: Aspirin, Catapres 0.2 t.i.d., Dilaudid, Lexapro, Lidoderm, MiraLax, Pepcid, amlodipine, Plavix, Zofran, Xopenex, Xanax, tramadol. ASSESSMENT: 1. Severe peripheral vascular disease. 2. Atherosclerotic disease. 3. Limb ischemia. 4. Ishemic pain. 5. Hypertension. 6. End-stage renal disease. PLAN: 1. Stable dialysis yesterday. 2. Change Dilaudid into q. 4 hours[address] Coffman. 4. The patient would like to get the second opinion. Tamanna Smith MD
[2017-04-04] MEDS: HYDROmorphone 1 mg/ml ISec IVP PRN ×5 (01:13→21:53)
[2017-04-04] MEDS: Levalbuterol 1.25 MG/3 ML Inhal Soln UD IH SCH ×4 (01:40→20:10)
[2017-04-04] MEDS: Levothyroxine 75 MCG TAB PO SCH (05:53)
[2017-04-04] MEDS: Pantoprazole 40 mg EC Tab PO SCH (05:53)
[2017-04-04 06:17] LABS: BASO # 0.03 K/mm3 (0.0-2.0); BASO % 0.3 % (0.0-3.0); EOS # 0.1 (0.0-0.7); EOS % 1.2 % (1.5-5.0); GRAN # 8.26 (1.4-6.5); GRAN % 81.8 % (50.0-68.0); HEMOGLOBIN 9.4 gm/dL (12.0-16.0); LYMPH # 0.8 (1.2-3.4); MEAN CELL VOLUME 98.5 fL (80.0-105.0); MEAN CORPUSCULAR HEMOGLOBIN 28.7 pg (25.0-35.0); MEAN CORPUSCULAR HGB CONC 29.2 g/dl (31.0-37.0); MEAN PLATELET VOLUME 9.8 fl (7.0-11.0); MONO # 0.9 (0.1-0.6); MONO % 8.7 % (1.0-6.0); PLATELET COUNT 197 10^3/uL (120.0-450.0); RBC 3.27 10^6/uL (3.5-6.1); RED CELL DISTRIBUTION WIDTH 15.7 % (11.5-14.5); WHITE BLOOD COUNT 10.1 10^3/ul (4.5-11.0)
[2017-04-04 06:25] LABS: ALB/GLOB RATIO 1.5 (1.1-1.8); ALBUMIN 3.6 g/dL (3.0-4.8); MAGNESIUM 2.4 mg/dL (1.7-2.2)
[2017-04-04] MEDS: Lidocaine 5% Patch TD SCH (10:01)
[2017-04-04] MEDS: Multivitamin Vitamin B Complex (Nephro-Vite) Tab PO SCH (10:02)
[2017-04-04] MEDS: POLYETHYLENE GLYCOL 3350 17 GM/Dose PACKET PO SCH (10:02)
[2017-04-04] MEDS: Silver Sulfadiazine 1% Cream (20 gm) TOP SCH ×2 (10:04→17:49)
[2017-04-04] MEDS: Sildenafil 20 MG TAB PO SCH (10:04)
--- NOTE | 2017-04-04 14:15 | PN ---
DATE: 04/04/2017 SUBJECTIVE: Th patient is seen sitting in chair. She is awake. She is alert. She complains of severe pain in her legs, left greater than right. PHYSICAL EXAMINATION VITAL SIGNS: Blood pressure 142/52, heart rate 109, respiratory rate 20, and temperature 98.3. HEENT: Normocephalic and atraumatic. Positive pallor. NECK: Supple. No JVD. LUNGS: Bilateral rhonchi, distant breath sounds. CARDIAC: S1, S2, regular rate and rhythm, no murmurs, no rubs. ABDOMEN: Soft, nondistended, nontender. Bowel sounds present. EXTREMITIES: Mottling of the skin of the left lower extremity, blisters. LABORATORY DATA: WBC 10, hemoglobin 9.4, hematocrit 32, and platelets 197. Sodium 138, potassium 4.0, chloride 103, CO2 of 22, BUN 38, creatinine 7.0, glucose 69, calcium 8.0, phosphorous 3.6, and magnesium 2.4. MEDICATIONS: List reviewed. ASSESSMENT AND PLAN: 1. Severe peripheral vascular disease. 2. Atherosclerotic disease. 3. Ischemic pain. 4. Hypertension 5. End-stage renal disease. 6. Anemia. 7. Chronic obstructive pulmonary disease. PLAN: 1. Dialysis today. 2. Pain management. 3. Surgical evaluation? Tamanna Smith MD
--- NOTE | 2017-04-04 19:12 | PN ---
SUBJECTIVE: The patient is 56-year-old, seen and examined, complaining of bilateral leg pain, complaining of shortness of breath, complaining of feeling nauseous. PHYSICAL EXAMINATION VITAL SIGNS: She is afebrile, pulse 80, respirations 18, blood pressure 117/66. LUNGS: Bilateral fair airflow. Decreased breath sounds at the bases. HEART: S1 and S2 audible. ABDOMEN: Soft, nontender. No rebound, no guarding. NEUROLOGIC: She is awake and alert, communicative, complaining of pain in both legs, below knees. of ecchymosis in the left francis. LABORATORY EXAM: WBC 7.1, hemoglobin 9.4, hematocrit 32, platelets 197. Chemistry: Sodium 138, potassium 4.0, chloride 106, CO2 of 22, BUN 38, creatinine 7.0, blood sugar 69. ASSESSMENT: 1. Ischemic leg pain. 2. Severe peripheral vascular disease, status post angioplasty of the left femoral. 3. End-stage renal disease, on hemodialysis. 4. Hypertension. 5. Peptic ulcer disease. 6. History of chronic obstructive pulmonary disease. PLAN: The patient will receive hemodialysis today. The patient needs vascular intervention, but she does not like any vascular surgeon in this facility. She will be discharged on Thursday and she will seek vascular surgical intervention. Brittany Coffman MD
[2017-04-05] MEDS: Levalbuterol 1.25 MG/3 ML Inhal Soln UD IH SCH ×4 (02:25→20:00)
[2017-04-05] MEDS: Levothyroxine 75 MCG TAB PO SCH (06:06)
[2017-04-05] MEDS: Pantoprazole 40 mg EC Tab PO SCH (06:06)
[2017-04-05] MEDS: Multivitamin Vitamin B Complex (Nephro-Vite) Tab PO SCH (08:25)
[2017-04-05] MEDS: HYDROmorphone 1 mg/ml ISec IVP PRN ×3 (08:42→22:17)
[2017-04-05] MEDS: POLYETHYLENE GLYCOL 3350 17 GM/Dose PACKET PO SCH (09:43)
[2017-04-05] MEDS: Lidocaine 5% Patch TD SCH (09:43)
[2017-04-05] MEDS: Sildenafil 20 MG TAB PO SCH (09:44)
[2017-04-05] MEDS: Silver Sulfadiazine 1% Cream (20 gm) TOP SCH ×2 (09:45→17:36)
[2017-04-06] MEDS: Levalbuterol 1.25 MG/3 ML Inhal Soln UD IH SCH ×3 (01:20→13:20)
[2017-04-06] MEDS: HYDROmorphone 1 mg/ml ISec IVP PRN ×3 (02:48→16:43)
[2017-04-06] MEDS: Pantoprazole 40 mg EC Tab PO SCH ×2 (05:46→07:52)
[2017-04-06] MEDS: Levothyroxine 75 MCG TAB PO SCH ×2 (05:47→07:56)
[2017-04-06] MEDS: Multivitamin Vitamin B Complex (Nephro-Vite) Tab PO SCH (08:24)
--- NOTE | 2017-04-06 09:25 | PN ---
SUBJECTIVE: The patient is a 56-year-old female, currently being treated in the Transitional Care Unit. I have been following the patient for problems with severe depression and insomnia. The patient continues to complain of severe chronic pain in her lower extremities due to peripheral vascular disease. The patient has been awakening at night due to what she says just pain in her legs. She just got doses of IV Dilaudid. Her other medications have included chewable aspirin, Catapres, Lexapro 5 mg daily, Lidoderm, MiraLax, Norvasc, Pepcid, Plavix, Renagel, Revatio, Risperdal 0.5 mg at bedtime, Sensipar, Silvadene ointment, Synthroid, Trandate. The patient also has been getting Xopenex inhaler, although many doses have not been given. LABORATORY DATA: She has no new laboratory data to report. PHYSICAL EXAMINATION: MENTAL STATUS: She is awake. She is alert, coherent, oriented x3, despondent about constant chronic pain with trouble waking up at night. We discussed dependency on the pain medication and lowering expectations for totally eradicating pain and how to cope with it. The patient is oriented x3, denies suicidal ideation or psychotic symptoms. VITAL SIGNS: Blood pressure 164/68, pulse 95, respirations 18 per minute, and afebrile. IMPRESSION: The patient has major depressive disorder with severe insomnia and anxiety with intermittent delirium secondary to end-stage renal disease. She is on hemodialysis. She has severe peripheral vascular disease. She has anemia. She has chronic pain. She has history of hypertension, atherosclerotic heart disease in addition to peripheral vascular disease. PLAN: We will add mirtazapine 15 mg p.o. at bedtime to see if there is some benefit in terms of sedation at night and decreasing the need for analgesia at night. We will continue to monitor her mental status. Reji Garcia MD
[2017-04-06 10:27] VITALS: O2SAT 100
[2017-04-06] MEDS: Lidocaine 5% Patch TD SCH (10:45)
[2017-04-06] MEDS: POLYETHYLENE GLYCOL 3350 17 GM/Dose PACKET PO SCH (10:46)
[2017-04-06] MEDS: Sildenafil 20 MG TAB PO SCH (10:47)
[2017-04-06] MEDS: Silver Sulfadiazine 1% Cream (20 gm) TOP SCH ×2 (10:48→17:12)
[2017-04-06] MEDS: TraMADol/Apap 37.5/325 mg Tab PO PRN (10:53)
[2017-04-06 16:05] VITALS: BP 133/65; PULSE 85; RESP 15; TEMP 98.5
--- NOTE | 2017-04-06 16:58 | PN ---
DATE: 04/06/2017 SUBJECTIVE: The patient is seen sitting in chair. She is awake. She is in a lot of pain. She reports severe pain in her left lower extremity. PHYSICAL EXAMINATION: GENERAL: Middle-aged lady sitting in chair. VITAL SIGNS: Blood pressure 147/60, heart rate 90, respiratory rate 14, and temperature 98. HEENT: Normocephalic, atraumatic. NECK: Supple. No JVD. LUNGS: Bilateral equal air entry . CARDIAC: S1 and S2, regular rate and rhythm. No murmur. No rubs. ABDOMEN: Obese, distended, soft, nontender. Bowel sounds present. EXTREMITIES: Mottling of the left lower extremity, hyperemia of the feet, cyanosis. LABORATORY DATA: WBC 10, hemoglobin 9.4, hematocrit 32.2, and platelets 197. No new labs. MEDICATIONS: Aspirin, Catapres, Dilaudid, Lexapro, Lidoderm, MiraLax, Nephro-Tor, gabapentin, amlodipine, Pepcid, Plavix, Protonix, Remeron, Renagel, Revatio, Sensipar, Silvadene, Synthroid, Trandate, Tylenol, Xanax, Xopenex, and Zofran. ASSESSMENT: 1. Severe Ischemia of the lower extremities. 2. Severe ischemic pain. 3. Peripheral vascular disease. 4. Atherosclerotic disease. 5. Anemia of chronic disease. PLAN: Limb threatening ischemia, vascular surgical evaluation recommended, decline by patient. We will discussed with Dr. Lucio Thomas. Tamanna Smith MD
--- NOTE | 2017-04-07 02:01 | PN ---
DATE: 03/28/2017 SUBJECTIVE: The patient is 56-year-old female, currently being treated on the transitional care unit for severe pain due to severe peripheral vascular disease. She also has been treated for depression and severe insomnia. The patient's currently her mental status, she is awake, she is somewhat despondent, sitting in a chair at the side of the bed, is oriented x3, recognizes me, aware of her conditions. Says, she is sleeping somewhat better since starting mirtazapine at bedtime. The patient's other medications include *------* and alprazolam 0.5 mg at bedtime. Other medicines include, chewable aspirin, p.r.n. Dilaudid, Lidoderm, Nephro-Tor, Neurontin, Norvasc, Plavix, Protonix, Revatio, Renagel,Trandate. VITAL SIGNS: Blood pressure is 147/60, pulse is 90, respirations 14 per minute, and afebrile. IMPRESSION: Major depression secondary to end-stage renal disease, on hemodialysis 3 times a week. She has severe chronic pain secondary to severe peripheral vascular disease. She has anemia. PLAN: Continue both psychotropic medicines as mentioned and will continue to evaluate mental status. Reji Garcia MD
--- NOTE | 2017-04-07 04:51 | DS ---
HISTORY OF PRESENT ILLNESS: The patient is a 56-year-old who was admitted with excruciating leg pain. She has angiography done by Dr. Lucio Thomas, was found to have atherosclerosis and stenosis in superficial femoral and femoral had an angioplasty done in the right leg. For the last 2 days, the patient started to have discoloration and developed blisters in the right calf and complained of having excruciating pain. PHYSICAL EXAMINATION: VITAL SIGNS: The patient is afebrile, pulse 90, respirations 14, and blood pressure 147/60. LUNGS: Bilateral fair airflow. No rhonchi or crackle. HEART: S1 and S2, audible. ABDOMEN: Soft, nontender, no rebound, no guarding. NEUROLOGIC: The patient is awake and alert, communicative. Moves all extremities, but unable to walk because of leg pain and foot pain. LABORATORY DATA: Blood sugar is 88. ASSESSMENT AND PLAN: 1. Severe peripheral vascular disease, status post angioplasty. 2. End-stage renal disease, on hemodialysis. 3. Hypertension. 4. Peptic ulcer disease. 5. Bilateral leg ischemic pain. 6. Constipation. 7. Chronic anemia. 8. History of chronic obstructive pulmonary disease. PLAN: Discussed with Dr. Lucio Thomas. 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 The patient herself and her daughter want to have a second opinion. They want to be discharge today and if her pain got worse, she will go to ER, otherwise she will be seen by vascular surgeon if something more can be done. So, I will leave it up to the family whatever they decide. If they decide to go to [facility], will be discharged today and will get admitted there. If she want to stay here, Dr. Lucio Thomas might want to do some intervention in her left leg. Brittany Coffman MD
== END 2017-04-06 19:05 | disposition home health service (06) | DRG 555 ==
LOC: TRCU 15:53
PROVIDERS: ADMIT Internal Medicine; ATTEND Internal Medicine
PROC: 5A1D60Z (ICD-10-PCS; 2017-03-28)
PROC: F07Z5ZZ Bed Mobility Treatment (ICD-10-PCS; 2017-03-30)
PROC: F07L6UZ Therapeutic Exercise Treatment of Musculoskeletal System - Lower Back / Lower Extremity using Prosthesis (ICD-10-PCS; 2017-03-30)
PROC: F07Z9FZ Gait Training/Functional Ambulation Treatment using Assistive, Adaptive, Supportive or Protective Equipment (ICD-10-PCS; principal; 2017-04-01)
PROC: F07Z8ZZ Transfer Training Treatment (ICD-10-PCS; 2017-04-01)
PROC: F08Z4ZZ Home Management Treatment (ICD-10-PCS; 2017-04-06)
DX: R26.2 Difficulty in walking, not elsewhere classified (principal); I70.202 Unspecified atherosclerosis of native arteries of extremities, left leg; N18.6 End stage renal disease; I12.0 Hypertensive chronic kidney disease with stage 5 chronic kidney disease or end stage renal disease; N25.81 Secondary hyperparathyroidism of renal origin; F05 Delirium due to known physiological condition; E83.39 Other disorders of phosphorus metabolism; E87.5 Hyperkalemia; F32.9 Major depressive disorder, single episode, unspecified; G47.00 Insomnia, unspecified; J44.9 Chronic obstructive pulmonary disease, unspecified; E03.9 Hypothyroidism, unspecified; F41.9 Anxiety disorder, unspecified; I25.10 Atherosclerotic heart disease of native coronary artery without angina pectoris; D63.1 Anemia in chronic kidney disease; F51.05 Insomnia due to other mental disorder; L98.499 Non-pressure chronic ulcer of skin of other sites with unspecified severity; K59.00 Constipation, unspecified; G89.4 Chronic pain syndrome; K27.9 Peptic ulcer, site unspecified, unspecified as acute or chronic, without hemorrhage or perforation; Z99.2 Dependence on renal dialysis; Z98.61 Coronary angioplasty status; Z87.891 Personal history of nicotine dependence

== ENCOUNTER 2017-08-20 00:06 | Inpatient (IN) | payer MEDICARE, OTHER ==
[2017-08-20] MEDS ORDERED: Albuterol-Ipratrop 3 mg / 0.5 (3 ml) UD IH STA (00:15)
--- NOTE | 2017-08-20 00:24 | ED PDOC ---
Arrival/HPI - General Chief Complaint: Respiratory Distress Time Seen by Provider: 08/20/17 00:07 Historian: Patient - History of Present Illness Narrative History of Present Illness (Text): 08/20/17 00:21 A 57 year old female, whose past medical history includes uncontrolled hypertension, chronic obstructive pulmonary disease, pulmonary hypertension, CAD with coronary stent, hypothyroidism, ESRD, and chronic anemia, who presents to the ED bought in by EMS complaining of shortness of breath since yesterday worsening this evening.Pt. treated by paramedics TAILER IN and placed on BiPaP, Patient is scheduled for dialysis later this morning. Patient denies chest pain , fever, chills, abdominal pain, nausea, vomiting, diarrhea, headache, dizziness , or any other complaints. PMD: Dr. Steven Coffman Time/Duration: Other (Earlier today) Symptom Onset: Gradual Symptom Course: Unchanged Quality: Other Activities at Onset: Rest Context: Home Past Medical History - Provider Review Nursing Documentation Reviewed: Yes - Infectious Disease Hx of Infectious Diseases: None - Tetanus Immunization Tetanus Immunization: Unknown - Cardiac Hx Cardiac Disorders: Yes (Pulmonary HTN) Hx Congestive Heart Failure: Yes Hx Hypertension: Yes - Pulmonary Hx Chronic Obstructive Pulmonary Disease (COPD): Yes - Neurological HX Cerebrovascular Accident: Yes - HEENT Hx HEENT Disorder: Yes (hard of hearing) Hx Blind: No Hx Cataracts: No Hx Deafness: No Hx Difficulty Chewing: No Hx Epistaxis: No Hx Glaucoma: No Hx Macular Degeneration: No - Renal Hx Renal Failure: No - Endocrine/Metabolic Hx Hypothyroidism: Yes - Hematological/Oncological Hx Blood Disorders: Yes Hx AIDS: No Hx Anemia: Yes Hx Cancer: No Hx Chemotherapy: No Hx Cirrhosis: No Hx Hemophilia: No Hx Hepatitis A: No Hx Hepatitis B: No Hx Hepatitis C: No Hx Metastasis: No Hx Shingles: No Hx Sickle Cell Disease: No Hx Unexplained Bleeding: No - Integumentary Hx Dermatological Disorder: No Hx Basal Cell Carcinoma: No Hx Eczema: No Hx Melanoma: No Hx Psoriasis: No Hx Squamous Cell Carcinoma: No - Musculoskeletal/Rheumatological Hx Arthritis: No - Gastrointestinal Hx Gastrointestinal Disorders: Yes (FECAL IMPACTION,CONSTIPATION,POOR APPETITE, GASTRITIS) - Genitourinary/Gynecological Hx Genitourinary Disorders: No Hx Reproductive Disorders: No - Psychiatric Hx Psychophysiologic Disorder: Yes Hx Anxiety: Yes Hx Bipolar Disorder: No Hx Depression: No Hx Emotional Abuse: No Hx Hallucinations: No Hx Panic Disorder: No Hx Post Traumatic Stress Disorder: No Hx Psychosis: No Hx Physical Abuse: No Hx Schizophrenia: No Hx Sexual Abuse: No Hx Substance Use: No - Past Surgical History Past Surgical History: Unable to Obtain - Surgical History Hx Amputation: No Hx Appendectomy: No Hx Cardiac Catheterization: Yes Hx Cholecystectomy: No Hx Coronary Stent: Yes Hx Gastric Bypass Surgery: No Hx Hysterectomy: No Hx Joint Replacement: No Hx Kidney Transplant: No Hx Liver Transplant: No Hx Mastectomy: No Hx Musculoskeletal Surgery: No Hx Open Heart Surgery: No Hx Orthopedic Surgery: No Hx Splenectomy: No Hx Valve Replacement: No - Anesthesia Hx Anesthesia: Yes Hx Anesthesia Reactions: No Hx Malignant Hyperthermia: No - Suicidal Assessment Feels Threatened In Home Enviroment: No Family/Social History - Physician Review Nursing Documentation Reviewed: Yes Family/Social History: No Known Family HX Smoking Status: Former Smoker Hx Alcohol Use: No Hx Substance Use: No Hx Substance Use Treatment: No Allergies/Home Meds Allergies/Adverse Reactions: Allergies ciprofloxacin Allergy (Verified 08/20/17 00:50) RASH hydralazine Allergy (Verified 08/20/17 00:50) RASH vancomycin Allergy (Unverified 08/20/17 00:50) SHORTNESS OF BREATH ct dye Allergy (Uncoded 08/20/17 00:50) RASH Home Medications: Home Meds Medication Instructions Recorded Confirmed Cinacalcet [Sensipar] 30 mg PO DAILY 03/05/15 03/28/17 Sildenafil [Revatio] 20 mg PO DAILY 03/10/16 03/28/17 Sevelamer [Renagel] 1,600 mg PO QID 04/29/16 03/28/17 cloNIDine [Catapres] 0.2 mg PO PRN PRN 06/04/16 08/20/17 Aspirin [Aspirin EC] 325 mg PO DAILY 03/12/17 03/28/17 Labetalol [Trandate] 300 mg PO Q8 08/20/17 08/20/17 Lisinopril [Zestril] 40 mg PO DAILY 08/20/17 08/20/17 Metoprolol Tartrate [Lopressor] 100 mg PO BID 08/20/17 08/20/17 NIFEdipine ER [Procardia XL] 90 mg PO DAILY 08/20/17 08/20/17 Review of Systems - Physician Review All systems were reviewed & negative as marked: Yes - Review of Systems Constitutional: absent: Fevers, Night Sweats Respiratory: SOB Cardiovascular: absent: Chest Pain Gastrointestinal: Normal. absent: Abdominal Pain, Diarrhea, Nausea, Vomiting Neurological: Normal. absent: Headache, Dizziness Physical Exam Vital Signs Reviewed: Yes Vital Signs Temp Pulse Resp BP Pulse Ox 08/20/17 01:51 76 18 178/101 H 100 08/20/17 01:15 98.4 F 08/20/17 01:03 89 24 230/144 H 100 08/20/17 01:00 16 Temperature: Afebrile Blood Pressure: Hypertensive Pulse: Regular Respiratory Rate: Normal Appearance: Positive for: Non-Toxic Pain Distress: None Mental Status: Positive for: Alert and Oriented X 3 - Systems Exam Head: Present: Atraumatic, Normocephalic Pupils: Present: PERRL Extroacular Muscles: Present: EOMI Conjunctiva: Present: Normal Mouth: Present: Moist Mucous Membranes Neck: Present: Normal Range of Motion Respiratory/Chest: Present: Rales Cardiovascular: Present: Regular Rate and Rhythm, Normal S1, S2. No: Murmurs Abdomen: Present: Normal Bowel Sounds. No: Tenderness, Distention, Peritoneal Signs Upper Extremity: Present: Normal Inspection. No: Cyanosis, Edema Lower Extremity: Present: Normal Inspection. No: Edema Neurological: Present: GCS=15, CN II-XII Intact, Speech Normal Skin: Present: Warm, Dry, Normal Color. No: Rashes Psychiatric: Present: Alert, Oriented x 3, Normal Insight, Normal Concentration Medical Decision Making ED Course and Treatment: 08/20/17 00:28 Impression: A 57 year old complaining of difficulty breathing. Differential Diagnosis included but are not limited to: congestive heart failure vs. COPD exacerbation vs. pneumonia Plan: -- EKG -- CXR -- Labs, cardiac enzymes, BNP -- Albuterol -- Reassess and disposition Prior Visits: Notes and results from previous visits were reviewed. Patient was last seen in the emergency department on On 03/18/2017, pt was seen in the Emergency department for shortness of breath, non-productive cough, and dyspnea on exertion. Pt was admitted to the hospital for further evaluation. Progress Notes: EKG: Ordered, reviewed, and independently interpreted the EKG. Rate : 115 BPM. Rhythm : Sinus Tachycardia Interpretation : LVH. Nonspecific ST/ T-wave segment changes. 08/20/17 01:13 Reviewed radiology. Chest X ray shows congestive heart failure. 08/20/17 02:[address] Coffman, who is aware and agrees with plan. Accepts patient to her service. Waiting call back from Dr. Hutchins. 08/20/17 02:[address] Hutchins, who agrees with plan to emergently dialyze pt tonight. - Lab Interpretations I have reviewed the lab results: Yes - RAD Interpretation Radiology Orders: 08/20/17 00:50 CHEST PORTABLE [RAD] Stat Cupola Liner Helper: ED Physician - EKG Interpretation Interpreted by ED Physician: Yes Type: 12 lead EKG - Medication Orders Current Medication Orders: Discontinued Medications Albuterol/Ipratropium (Duoneb 3 Mg/0.5 Mg (3 Ml) Ud) 3 ml IH ONCE STA Stop: 08/20/17 00:16 - Scribe Statement The provider has reviewed the documentation as recorded by the Scribe Mariaelena Raygoza under supervision of Ree Ramsay. Provider Scribe Attestation: All medical record entries made by the Scribe were at my direction and personally dictated by me. I have reviewed the chart and agree that the record accurately reflects my personal performance of the history, physical exam, medical decision making, and the department course for this patient. I have also personally directed, reviewed, and agree with the discharge instructions and disposition. Disposition/Present on Arrival - Present on Arrival Any Indicators Present on Arrival: No History of DVT/PE: No History of Uncontrolled Diabetes: No Urinary Catheter: No History of Decub. Ulcer: No History Surgical Site Infection Following: None - Disposition Have Diagnosis and Disposition been Completed?: Yes Diagnosis: ESRD (end stage renal disease), CHF exacerbation Disposition: HOSPITALIZED Disposition Time: 02:25 Patient Problems: Current Active Problems Problem Status Onset CHF exacerbation Acute ESRD (end stage renal disease) Acute Condition: SERIOUS Discharge Instructions (ExitCare): Heart Failure (ED) Referrals: Brittany Coffman MD [Primary Care Provider] - Follow up with primary Forms: [employer] (Montenegrin)
[2017-08-20] MEDS: Albuterol-Ipratrop 3 mg / 0.5 (3 ml) UD ONE ×2 (02:00→20:57)
[2017-08-20] MEDS ORDERED: Oxycodone/Acetaminophen 5/325 mg Tab PO STA (03:02)
[2017-08-20 04:26] LABS: MEAN CELL VOLUME 97.1 fl (80.0-105.0); MEAN CORPUSCULAR HEMOGLOBIN 28.5 pg (25.0-35.0); MEAN CORPUSCULAR HGB CONC 29.4 g/dl (31.0-37.0); MEAN PLATELET VOLUME 9.7 fl (7.0-11.0); RED CELL DISTRIBUTION WIDTH 15.3 % (11.5-14.5); WHITE BLOOD COUNT 9.2 10^3/ul (4.5-11.0)
[2017-08-20 04:47] LABS: ALB/GLOB RATIO 1.4 (1.1-1.8); BILIRUBIN,TOTAL 0.4 mg/dL (0.2-1.3); CALCIUM 9.3 mg/dL (8.4-10.5); POTASSIUM 5.3 mmol/L (3.6-5.0); TOTAL PROTEIN 5.8 g/dL (5.8-8.3)
[2017-08-20 05:16] LABS: TROPONIN I 0.24 ng/mL
--- NOTE | 2017-08-20 08:25 | RAD ---
HISTORY: sob COMPARISON: 03/18/2017 FINDINGS: LUNGS: No active pulmonary disease. PLEURA: No significant pleural effusion identified, no pneumothorax apparent. CARDIOVASCULAR: Mild cardiomegaly. Mild vascular congestion OSSEOUS STRUCTURES: No significant abnormalities. VISUALIZED UPPER ABDOMEN: Normal. OTHER FINDINGS: Right IJ dialysis catheter in the right atrium IMPRESSION: Mild vascular congestion
[2017-08-20] MEDS ORDERED: Oxycodone/Acetaminophen 10/325 mg Tab PO PRN (09:22)
[2017-08-20] MEDS ORDERED: Naproxen 550 mg Tab PO SCH (12:09)
[2017-08-20] MEDS ORDERED: Morphine 2 mg/ml ISec SC PRN (12:25)
[2017-08-20] MEDS: NIFEdipine 90 mg ER Tab PO SCH (13:36)
--- NOTE | 2017-08-20 13:45 | CON ---
DATE: 08/20/2017 REASON FOR CONSULTATION: Shortness of breath, ESRD. HISTORY OF PRESENT ILLNESS: A 57-year-old lady known to me from prior evaluations in the past. The patient was not under my care for the last 5-6 months. She was at [facility]. She received a bilateral lower extremity bypass. She was in rehab. She was receiving dialysis at another facility. She recently came back home. She was started on dialysis on Thursday, and Thursday in [facility]. She is presenting this morning with complaints of shortness of breath. She had a full dialysis treatment on Thursday. Urgent dialysis was initiated. The patient had a 3-hour treatment. She had a ultrafiltration done. Currently, she reports that her breathing is better. She complains of pain in her legs. She complains of nausea. She complains of some headaches. Her BNP at presentation was 238,000. Her potassium was 5.3. PAST MEDICAL AND SURGICAL HISTORY: Severe hypertension, pulmonary hypertension, COPD, CAD with stent, hypothyroidism, chronic anemia, peripheral vascular disease, bilateral lower extremity bypass, nonhealing ulcer, anxiety, anemia, secondary hyperparathyroidism. FAMILY HISTORY: Hypertension. SOCIAL HISTORY: Ex-smoker, no alcohol use, no IV drug abuse. ALLERGIES: CIPROFLOXACIN, HYDRALAZINE, VANCOMYCIN. MEDICATIONS AT HOME: Zestril 40 mg daily, Plavix 75, nifedipine 90, Lopressor 100 b.i.d., labetalol 300 q. 8 h., Catapres 0.2 p.r.n., Synthroid 75. REVIEW OF SYSTEMS: All systems are reviewed, pertinent positives as mentioned in the history of presenting illness, rest unremarkable. PHYSICAL EXAMINATION: GENERAL: Middle-aged lady sitting in bed, in no acute distress. VITAL SIGNS: Blood pressure 133/71, heart rate 83, respiratory rate 18, T-max 99.1. HEENT: Normocephalic, atraumatic, positive pallor. NECK: Supple, no JVD. LUNGS: Distant breath sounds, poor air entry, CARDIAC: S1, S2, positive murmur, no rub. ABDOMEN: Obese, distended, soft, tenderness in the right lower quadrant, bowel sounds present. EXTREMITIES: No edema, nonhealing ulcer on the medial aspect of the right lower leg. LABORATORY DATA: WBC 9.2, hemoglobin 9.7, hematocrit 33, platelets 263. Sodium 137, potassium 5.3, chloride 97, CO2 29, BUN 47, creatinine 5.0, glucose 113, calcium 9.3, albumin 3.4. ASSESSMENT: 1. Decompensated congestive heart failure, volume overload, status post urgent dialysis. 2. End-stage renal disease. 3. Hypertension. 4. Peripheral vascular disease. 5. Anemia of chronic kidney disease. 6. Secondary hyperparathyroidism. PLAN: 1. Reassess for dialysis again tomorrow. 2. Wound care evaluation for nonhealing ulcer of the right lower leg. 3. Antihypertensives as ordered. 4. Dialysis as needed. Thank you for the courtesy of this consultation. We will follow this patient closely with you. Tamanna Smith MD
[2017-08-20 14:08] VITALS: BMI 21.8
[2017-08-20] MEDS ORDERED: Lidocaine 2% Jelly (Uro-Jet) TOP ONE (15:54)
[2017-08-20 16:09] LABS: TROPONIN I 1.21 ng/mL
[2017-08-20] MEDS: HYDROmorphone 1 mg/ml ISec SC PRN (16:31)
--- NOTE | 2017-08-20 18:02 | CARD ---
APPROVED REPORT EXAM: Two-dimensional and M-mode echocardiogram with Doppler and color Doppler. INDICATION r/o Pericardial Effusion, Evaluate LV function 2D DIMENSIONS Left Atrium (2D)2.8 (1.6-4.0cm)IVSd2.3 (0.7-1.1cm) Aortic Root (2D)3.0 (2.0-3.7cm)LVDd2.7 (3.9-5.9cm) PWd2.7 (0.7-1.1cm)LVDs1.5 (2.5-4.0cm) FS (%) 43.2 %LVEF (%)76.2 (>50%) M-Mode DIMENSIONS Aortic Cusp Exc.0.90 (1.5-2.0cm) Aortic Valve LVOT Peak Vmmkwuew544.0cm/sLVOT VTI31.80cm Mitral Valve MV E Qigmnxxw07.7cm/sMV E Peak Gr.12mmHgMV A Ltzxoumb156.0cm/s MV E Mean Gr.3mmHgE/A ratio0.5 TDI Lateral E' Peak V4.97cm/sMedial E' Peak V2.44cm/sE/Lateral E'15.0 E/Medial E'30.6 Pulmonary Valve PV Peak Pszbfcqr561.0cm/sPV Peak Grad.10mmHg LEFT VENTRICLE The left ventricle is normal size. There is moderate to severe concentric left ventricular hypertrophy. The left ventricular function is normal.EF-65-70% There is normal LV segmental wall motion. Transmitral Doppler flow pattern is Grade III-reversible restrictive diastolic dysfunction. No left ventricle thrombus noted on this study. There is no ventricular septal defect visualized. There is no left ventricular aneurysm. There is no mass noted in the left ventricle. RIGHT VENTRICLE The right ventricle is normal size. There is normal right ventricular wall thickness. The right ventricular systolic function is normal. ATRIA The left atrium is mildly dilated in long [place] The right atrium size is normal. The interatrial septum is intact with no evidence for an atrial septal defect. AORTIC VALVE The aortic valve is thickened but opens well. There is trace aortic regurgitation. There is no aortic valvular stenosis. There is no aortic valvular vegetation. MITRAL VALVE The mitral valve is calcified and displays decreased opening. Mitral annular calcification is moderate. Mitral regurgitation is trace to mild. There is no mitral valve stenosis. There is no evidence of mitral valve prolapse. TRICUSPID VALVE The tricuspid valve leaflets are thickened , but open well. There is trace to mild tricuspid regurgitation. There is no tricuspid valve stenosis. There is no tricuspid valve prolapse or vegetation. PULMONIC VALVE The pulmonic valve is mildly thickened. There is mild pulmonic valvular regurgitation. There is no pulmonic valvular stenosis. GREAT VESSELS The aortic root is normal in size. The ascending aorta is normal in size. The pulmonary artery is normal. The IVC is normal in size and collapses >50% with inspiration. PERICARDIAL EFFUSION There is no pleural effusion. trivial pericardial effusion. <Conclusion> The left ventricle is normal size. There is moderate to severe concentric left ventricular hypertrophy. The left ventricular function is normal.EF-65-70% There is normal LV segmental wall motion. The left atrium is mildly dilated in long [place] There is trace aortic regurgitation. Mitral regurgitation is trace to mild. There is trace to mild tricuspid regurgitation. The IVC is normal in size and collapses >50% with inspiration. trivial pericardial effusion.
--- NOTE | 2017-08-20 19:00 | CARD ---
APPROVED REPORT EKG Measurement Heart [id number] <Conclusion> Sinus tachycardia Possible Left atrial enlargement Left ventricular hypertrophy with repolarization abnormality Abnormal ECG
[2017-08-20] MEDS: HYDROmorphone 1 mg/ml ISec IVP PRN (21:38)
[2017-08-20 23:52] LABS: TROPONIN I 1.09 ng/mL
--- NOTE | 2017-08-21 00:41 | CON ---
DATE: 08/20/2017 SERVICE: Cardiology. REASON FOR CONSULTATION: Complaining of shortness of breath, uncontrolled hypertension, history of coronary artery disease, end-stage renal disease, history of peripheral arterial disease. BRIEF CLINICAL HISTORY: This is a 57-year-old female with a past medical history of end-stage renal disease on dialysis, history of coronary artery disease, status post SC, peripheral arterial disease status post bilateral fem-pop bypass, right aortoiliac bypass, history of non-STEMI, status post PTCA of OM1 at [place] evaluated in 01/2017, [facility] by Dr. Dieter Fung when the patient presented with the STEMI there. History of recently right aortofemoral and left crossover bypass done at [facility], came in with a complaint of shortness of breath and uncontrolled hypertension. The patient was in [facility] and was told that fluid around the heart and around the lung and needs to be followed up. The patient denies any chest pain, but complained of mild shortness of breath and blood pressure is 200/100. PAST MEDICAL HISTORY: Significant for non-STEMI, history of PTCA of OM1 with a drug-eluting stent on 01/12/2017 at [place], history of PAD, status post right SFA occluded, status post left aortofemoral bypass and right crossover bypass, status post mesenteric angiogram negative for mesenteric artery stenosis with right carotid artery stenting at [facility] in 10/2016, uncontrolled hypertension, end-stage renal disease on dialysis three times a day, diabetes, hypertension, and hyperlipidemia. PREVIOUS CARDIAC WORKUP: As follows, the patient's last echo on 01/11/2017, ejection fraction 65%, mild MR, mild TR, mild AR, [id number] PI, RV systolic pressure of 21. The patient had a recent echo done at [facility], was told that the patient has fluid around the heart and in the lung as well. PAST SURGICAL HISTORY: Significant for carotid artery stenting in 10/2016, history of recently left aortofemoral bypass and crossover right femoral bypass, history of non-STEMI, history of PTCA of OM1 with a drug-eluting stent on 01/12/2017, drug-eluting stent [facility] by Dr. Dieter Fung at [place]. History of end-stage renal disease, history of shunt, history of non-healing ulcer on right and left leg. CURRENT MEDICATIONS: The patient is taking clonidine 0.2 mg daily, vitamin B complex, nifedipine 90, metoprolol tartrate 100 mg daily, Zestril 40 mg daily, levothyroxine 75, labetalol 300 mg q.8 hours, clopidogrel 75 mg daily. ALLERGIES: HYDRALAZINE, CIPROFLOXACIN, VANCOMYCIN, AND CONTRAST DYE. REVIEW OF SYSTEMS: As per HPI. Complained of mild shortness of breath. PHYSICAL EXAMINATION: As follows; VITAL SIGNS: Temperature afebrile, heart rate 83, blood pressure 220/97. HEENT: PERRLA. Extraocular muscles intact. NECK: Supple. No carotid bruit or thyromegaly. CHEST: Clear to auscultation. HEART: S1, S2, regular. ABDOMEN: Soft. EXTREMITIES: Clubbing and cyanosis negative. LABORATORY DATA: Blood workup as follows: WBC 9.2, hemoglobin 9.7, hematocrit 33, platelet count 263. Chemistry shows sodium 137, potassium 5.3, chloride 97, carbon dioxide 29, anion gap of 17, BUN 47, creatinine 5. Troponin 0.27. BNP 238,000. IMPRESSION: Uncontrolled hypertension, borderline troponin positive secondary to end-stage renal disease, but cannot rule out underlying coronary artery disease, elevated BNP, peripheral arterial disease, status post percutaneous transluminal coronary angioplasty of obtuse marginal 1 in 01/2017, history of aortofemoral bypass and crossover on the right side, history of carotid arterial stenting, end-stage renal disease on dialysis, and hypertension. RECOMMENDATIONS: We will get echo to assess LV function. The patient states that she had fluid around that her needs to be followed up. See the valvular function as well. Follow up serial CPKs and troponin. Further recommendations as per hospice course, we will follow with you. Aggressive control of blood pressure. We will start clonidine, we will start labetalol and nifedipine . THE PATIENT IS ALLERGIC TO HYDRALAZINE, we will avoid hydralazine. We will get serial CPKs, troponin now and 8 hours apart at 10 p.m. and tomorrow morning. If the troponin trends up, then may consider some invasive, otherwise treat medically. Pj Ontiveros MD
[2017-08-21] MEDS: HYDROmorphone 1 mg/ml ISec IVP PRN ×5 (01:24→17:50)
--- NOTE | 2017-08-21 04:01 | CON ---
DATE: 08/20/2017 HISTORY OF PRESENT ILLNESS: This is a 57-year-old female seen for right lower leg ulcer. The patient states she has peripheral vascular disease and the patient states she is in severe pain. She made us get saline to help loosen the tape before we could even open the dressing. Nursing stated the patient would not let them take off the dressing because of pain. The patient states she was given morphine and the morphine did not help the pain. PAST MEDICAL HISTORY: Positive for end-stage renal disease on hemodialysis, positive for hypertension, positive for pulmonary hypertension, positive for COPD, positive for CAD with a stent, positive for chronic anemia, hypothyroidism, peripheral vascular disease, anxiety, and hyperparathyroidism. PAST SURGICAL HISTORY: Positive for the cardiac stenting and she also states she had bilateral lower extremity bypass surgery. SOCIAL HISTORY: She is an ex-smoker and she does not use alcohol or IV drugs. ALLERGIES: THE PATIENT HAS DRUG ALLERGIES TO CIPRO, HYDRALAZINE, AND VANCOMYCIN. REVIEW OF SYSTEMS: Positive as mentioned above in the history with presenting illness. PHYSICAL EXAMINATION: VITAL SIGNS: Temperature of 98.6, the T-max was 99.1, pulse was 75, blood pressure is 154/73, and respiratory rate was 18. LABORATORY DATA: The patient's labs were reviewed. A white blood cell count is 9.2, the H and H is 9.7 and 33.0, and platelets are 263. Chemistry shows sodium is 137, potassium is 5.3, chloride was 97, and carbon dioxide 29. BUN and creatinine is 47 and 5.1. Her random glucose was 113. Her BNP was 238,000. The patient also had elevated troponin 1. The patient's microbiology, there were no specimens. We did take one at this visit. The patient is noted to be very anxious and . Looking at her lower extremities, there is a palpable 1/4 dorsalis pedis pulse bilateral. There is nonpalpable posterior tibial pulse bilateral. She is hypersensitive on both lower extremities with the right greater than the left. She does have an extremely elongated nails x10. They all are dystrophic with subinguinal debris and hypertrophy. She states that she has tried to have her nails cut, but because of the peripheral vascular disease, she is having a hard time getting people to cut the nails for her. The patient does have an ulceration on the medial aspect of her calf, on her right leg. It is extremely painful to minimal palpation. It is excruciating pain for the patient at all times. The wound measures approximately 5 x 3 x 0.2 cm. There is another small satellite lesion just above it measuring approximately 0.5 x 1 x 0.1 cm. The tissue is mix of cell granulation and some yellow fibrous tissue. There was no necrosis noted in the wound at this time. 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 PLAN OF TREATMENT: Lidocaine jelly and we will mix that with Santyl and apply that with a nonstick Adaptic and then . This should be done on a daily basis. We will come back and debride her toenails in the morning. Unfortunately, a calciphylaxis prognosis for these wounds on healing is poor. She did ask if she would be able to go into the hyperbarics and again unfortunately, it is not an indicated modality for her hyperbaric with Medicare. At this time, local care and IV antibiotics. We did get wound cultures from the wound, and she will be seen in followup. Wendy Blanton DPM MAURICE
[2017-08-21 06:35] LABS: BASO # 0.07 K/mm3 (0.0-2.0); BASO % 0.9 % (0.0-3.0); EOS # 0.3 (0.0-0.7); EOS % 3.8 % (1.5-5.0); GRAN # 5.01 (1.4-6.5); HEMATOCRIT 35.4 % (36.0-48.0); LYMPH # 1.7 (1.2-3.4); LYMPH % 22.2 % (22.0-35.0); MEAN CELL VOLUME 98.3 fl (80.0-105.0); MEAN CORPUSCULAR HEMOGLOBIN 28.1 pg (25.0-35.0); MEAN CORPUSCULAR HGB CONC 28.5 g/dl (31.0-37.0); MEAN PLATELET VOLUME 9.1 fl (7.0-11.0); MONO # 0.6 (0.1-0.6); MONO % 8.1 % (1.0-6.0); RED CELL DISTRIBUTION WIDTH 15.4 % (11.5-14.5); WHITE BLOOD COUNT 7.7 10^3/ul (4.5-11.0)
--- NOTE | 2017-08-21 08:33 | HP ---
SUBJECTIVE: The patient is 57 years old, came to the emergency room because of increasing shortness of breath and did have some chest discomfort. She states she could not catch her breath. She called ambulance and came to emergency room. The patient was recently admitted in [facility] where she had bilateral legs arterial bypass. She was in subacute rehab for long period of time. During that time, she developed right leg ulcer that she claims to be very painful. PAST MEDICAL HISTORY: Significant for: 1. Hypertension. 2. History of COPD because of longtime smoking. 3. Coronary artery disease, status post angioplasty. 4. Chronic anemia. 5. Peripheral vascular disease. 6. Recent bilateral legs arterial bypass. 7. End-stage renal disease, on hemodialysis. 8. Chronic anemia. 9. Anxiety disorder. ALLERGIES: THE PATIENT IS ALLERGIC TO CIPRO, HYDRALAZINE, VANCOMYCIN, AND CT SCAN DYES. MEDICATIONS: At home, she is on: 1. Labetalol 300 t.i.d. 2. Synthroid 75 mcg daily. 3. Clonidine 0.2 b.i.d. p.r.n. 4. Nifedipine 90 mg daily. 5. Plavix 75 daily. SOCIAL HISTORY: She lives with her son. Still smokes here and there. She still has a cough. Her shortness of breath is much better. Denies any nausea or vomiting. Slight chest discomfort. PHYSICAL EXAMINATION: GENERAL: She is awake, alert, oriented, and communicative. VITAL SIGNS: Temperature of 99.1, pulse 83, respirations 22, and blood pressure 133/71. LUNGS: Bilateral good airflow. Few occasional expiratory rhonchi. She has soft crackle at bases. HEART: S1 and S2 audible. ABDOMEN: Soft and nontender. No rebound. No guarding. NEUROLOGIC: The patient is awake, alert, oriented. Complaining of pain in the right lower leg ulcer. LABORATORY DATA: [id number], potassium 5.3, chloride 97, CO2 of 29, BUN 47, creatinine 5.0, blood sugar 113. Phosphorus 7.2. Her troponin is 0.24, followup is 1.26. WBC is 9.2, hemoglobin 9.7, hematocrit 33, and platelets 263. ASSESSMENT: 1. Fluid overload and pulmonary edema, status post hemodialysis earlier this morning. 2. End-stage renal disease, on hemodialysis. 3. Congestive heart failure. 4. Coronary artery disease, status post angioplasty. 5. Peripheral vascular disease. 6. Right lower leg ischemic ulcer. 7. Chronic anemia. PLAN: I will discontinue morphine, start her on Dilaudid. Apply lidocaine gel to the right leg ulcer. Awaiting Dr. Blanton to evaluate the patient. She might be a candidate for hyperbaric treatment. Brittany Coffman MD
[2017-08-21 09:02] LABS: ALB/GLOB RATIO 1.4 (1.1-1.8); BILIRUBIN,TOTAL 0.4 mg/dL (0.2-1.3); CALCIUM 9.6 mg/dL (8.4-10.5); POTASSIUM 4.9 mmol/L (3.6-5.0); TOTAL PROTEIN 5.8 g/dL (5.8-8.3)
[2017-08-21 09:34] LABS: TROPONIN I 0.8 ng/mL
[2017-08-21] MEDS ORDERED: Levothyroxine 75 MCG TAB PO SCH (10:00)
[2017-08-21] MEDS: Collagenase 250 Units/gm Ointment(30 gm) TOP SCH (13:11)
[2017-08-21] MEDS: NIFEdipine 90 mg ER Tab PO SCH (13:30)
--- NOTE | 2017-08-21 13:55 | PN ---
DATE: 08/21/2017 REASON FOR CONSULTATION: Shortness of breath, uncontrolled hypertension, coronary artery disease, end-stage renal disease, and severe PAD. SUBJECTIVE: The patient denies chest pain, shortness of breath, or any palpitation, was concerned about [facility]. Repeat echo shows trace pericardial effusion. Feels better. No chest pain. No palpitations. PHYSICAL EXAMINATION: VITAL SIGNS: As follows; temperature afebrile, heart rate 85, and blood pressure 145/70. HEENT: PERRLA intact. NECK: Supple. No carotic bruits or thyromegaly. CHEST: Clear to auscultation. HEART: S1 and S2 regular. ABDOMEN: Soft. EXTREMITIES: Clubbing and cyanosis negative. LABORATORY DATA: Blood workup as follows; WBC 7.3, hemoglobin 10.9, hematocrit 35.4, and platelet count 253. Chemistry shows sodium 137, potassium 5.3, chloride 97, carbon dioxide 29, anion gap of 17, BUN 47, and creatinine 5. Troponin 0.24, 1.21, and 1.09 with BNP 238,000. EKG normal. TSH 5.2. IMPRESSION: Coronary artery disease, status post PTCA of the circumflex on 01/31 at [place], recently had the patient surgery left aortoiliac possible and femoral popliteal bypass, admitted with shortness of breath. BNP 238,000. Admitting blood pressure 200/144. Mildly elevated troponin. EKG benign, review of above. We will get a stress test to rule out any ischemia. I doubt it is real true myocardial infarction, but because of so high risk patient, we need to do some noninvasive workup before the patient goes home. Suggested stress thallium today. Repeat echo done yesterday showed no significant pericardial effusion. The patient has pericardial effusion at the last time of admission at [facility] and was told needs to be close followup. Yesterday, echocardiogram showed ejection fraction of 65% to 70%, dilated left atrium and long axis left ventricular hypertrophy, trace aortic regurgitation, trace to mild mitral and trace to mild tricuspid regurgitation. RECOMMENDATIONS: Aggressive control of blood pressure. Continue dialysis. We will get a stress test. Pj Ontiveros MD
--- NOTE | 2017-08-21 14:14 | CP.PCM.PN ---
<Richelle Bains - Last Filed: 08/21/17 14:06> Subjective - Date & Time of Evaluation Date of Evaluation: 08/21/17 Time of Evaluation: 14:07 - Subjective Subjective: Podiatry Progress Note - Dr. Blanton/Reanna 57 year old female patient seen and evaluated at bedside for right leg ulceration. Patient hemodynamically stable and NAD. Denies any acute events overnight, states she was able to sleep well with minimal pain to her wound, controlled by the Dilaudid. Patient reports decreased pain currently as she was medicated recently, however admits to increased sensitivity around the wound and is apprehensive to take dressing down. Admits to nausea currently, denies V/ F/D/C/SOB. Objective - Vital Signs/Intake and Output Vital Signs (last 24 hours): Temp Pulse Resp BP Pulse Ox 98.3 F 87 18 145/70 100 08/21/17 06:00 08/21/17 10:00 08/21/17 06:00 08/21/17 06:00 08/21/17 06:00 Intake and Output: 08/21/17 08/21/17 06:59 18:59 Intake Total 720 Balance 720 - Medications Medications: Current Medications Clonidine HCl (Catapres) 0.2 mg PO BID [facility] Last Admin: 08/21/17 13:30 Dose: 0.2 mg Clopidogrel Bisulfate (Plavix) 75 mg PO DAILY [facility] Last Admin: 08/21/17 13:30 Dose: 75 mg Collagenase (Santyl) 0 gm TOP DAILY [facility] Last Admin: 08/21/17 13:11 Dose: 1 unit Hydromorphone HCl (Dilaudid) 1 mg SC Q4H PRN PRN Reason: Pain, moderate (4-7) Last Admin: 08/20/17 16:31 Dose: 1 mg Hydromorphone HCl (Dilaudid) 1 mg IVP Q4H PRN PRN Reason: Pain, severe (8-10) Last Admin: 08/21/17 11:04 Dose: 1 mg Labetalol HCl (Trandate) 300 mg PO Q8 [facility] Last Admin: 08/21/17 13:30 Dose: 300 mg Levothyroxine Sodium (Synthroid) 100 mcg PO 0600 [facility] Nifedipine (Procardia Xl) 90 mg PO DAILY [facility] Last Admin: 08/21/17 13:30 Dose: 90 mg Ondansetron HCl (Zofran Inj) 4 mg IVP Q8H PRN PRN Reason: Nausea/Vomiting Last Admin: 08/21/17 13:14 Dose: 4 mg Oxycodone/Acetaminophen (Percocet 10/325 Mg Tab) 1 tab PO Q6H PRN PRN Reason: Pain, severe (8-10) Last Admin: 08/20/17 09:42 Dose: 1 tab Sevelamer HCl (Renagel) 1,600 mg PO TID [facility] Last Admin: 08/21/17 13:29 Dose: 1,600 mg - Labs Labs: 08/21/17 06:00 08/21/17 06:00 - Constitutional Appears: Well, Non-toxic, No Acute Distress - Extremities Exam Additional comments: VASC: DP pulses weakly palpable 1/4 b/l. PT pulses nonpalpable b/l. Temperature gradient cool to cool b/l. No edema noted. CFT WNL. NEURO: Hypersensitivity to bilateral lower extremities, R>L DERM: Ulceration noted to medial aspect of right calf, measuring approximately 5 x 3 x 0.2 cm with mixed fibrogranular base and moderate erythema periwound. Small satellite lesion proximal to ulcer #1 measuring approximately 0.5 x 1 x 0.1 cm also with a mixed fibrogranular base and erythema periwound. No necrosis noted to either wound. Nails 1-10 are thickened, elongated, dystrophic with subungual debris and hypertrophy. 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 Forte afebrile, absent leukocytosis Patient pre-medicated with 1mg Dilaudid prior to dressing change Wound cleansed with saline, Santyl + Lidocaine jelly mix applied to wound beds, and dressed with Adaptic + DSD -QD dressing changes Nails 1-10 debrided without incident Ulcer prognosis is poor Continue IV abx F/u wound culture Podiatry will continue to follow patient while in house <Dougie Forte - Last Filed: 08/21/17 19:13> Objective - Vital Signs/Intake and Output Vital Signs (last 24 hours): Temp Pulse Resp BP Pulse Ox 97.9 F 80 16 153/66 H 100 08/21/17 18:00 08/21/17 18:00 08/21/17 18:00 08/21/17 18:00 08/21/17 06:00 Intake and Output: 08/21/17 08/22/17 18:59 06:59 Intake Total 600 Balance 600 - Medications Medications: Current Medications Clonidine HCl (Catapres) 0.2 mg PO BID [facility] Last Admin: 08/21/17 17:16 Dose: 0.2 mg Clopidogrel Bisulfate (Plavix) 75 mg PO DAILY [facility] Last Admin: 08/21/17 13:30 Dose: 75 mg Collagenase (Santyl) 0 gm TOP DAILY [facility] Last Admin: 08/21/17 13:11 Dose: 1 unit Hydromorphone HCl (Dilaudid) 1 mg SC Q4H PRN PRN Reason: Pain, moderate (4-7) Last Admin: 08/20/17 16:31 Dose: 1 mg Hydromorphone HCl (Dilaudid) 1 mg IVP Q4H PRN PRN Reason: Pain, severe (8-10) Last Admin: 08/21/17 17:50 Dose: 1 mg Labetalol HCl (Trandate) 300 mg PO Q8 [facility] Last Admin: 08/21/17 13:30 Dose: 300 mg Levothyroxine Sodium (Synthroid) 100 mcg PO 0600 [facility] Nifedipine (Procardia Xl) 90 mg PO DAILY [facility] Last Admin: 08/21/17 13:30 Dose: 90 mg Ondansetron HCl (Zofran Inj) 4 mg IVP Q8H PRN PRN Reason: Nausea/Vomiting Last Admin: 08/21/17 13:14 Dose: 4 mg Oxycodone/Acetaminophen (Percocet 10/325 Mg Tab) 1 tab PO Q6H PRN PRN Reason: Pain, severe (8-10) Last Admin: 08/20/17 09:42 Dose: 1 tab Sevelamer HCl (Renagel) 1,600 mg PO TID [facility] Last Admin: 08/21/17 17:08 Dose: Not Given Attending/Attestation - Attestation I have personally seen and examined this patient.: Yes I have fully participated in the care of the patient.: Yes I have reviewed all pertinent clinical information, including history, physical exam and plan: Yes
--- NOTE | 2017-08-21 14:56 | PN ---
DATE: 08/21/2017 SUBJECTIVE: The patient is seen lying in bed. She is complaining of pain in her abdomen. She is complaining of shortness of breath. PHYSICAL EXAMINATION: GENERAL: Middle-aged lady lying in bed. VITAL SIGNS: Blood pressure 145/70, heart rate 85, respiratory rate 18, temperature 98.3. HEENT: Normocephalic, atraumatic. Positive pallor. Neck: Supple, no JVD. LUNGS: Bilateral equal entry, bilateral equal expansion, no rales. CARDIAC: S1 and S2. Regular rate and rhythm, no murmur, no rub. ABDOMEN: Soft, mild tenderness in the left lower quadrant, bowel sounds present. EXTREMITIES: No lower extremity edema. Positive dressing of the right lower leg. LABORATORY DATA: WBC 7.7, hemoglobin 10, hematocrit 35, and platelets 253. Sodium 138, potassium 4.9, chloride 101, CO2 28, BUN 31, creatinine 4.2, glucose 92, calcium 9.6, troponin 0.8, and albumin 3.4. CURRENT MEDICATIONS: Catapres 0.2 b.i.d., Dilaudid, Percocet, Plavix, Procardia XL 90, Synthroid, Trandate, and Zofran. ASSESSMENT: 1. Decompensated congestive heart failure, status post urgent dialysis yesterday. 2. Coronary artery disease, congestive heart failure. 3. Hypertension. 4. Peripheral vascular disease. 5. End stage renal disease. 6. Chronic obstructive pulmonary disease. PLAN: 1. Dialysis again tomorrow. 2. Wound care for ulcer on the right calf. 3. Continue current antihypertensives. 4. Check intact PTH and phosphorus levels. Tamanna Smith MD
--- NOTE | 2017-08-21 22:59 | CARD ---
APPROVED REPORT Protocol: LEXISCAN Test Type: Lexiscan Sestamibi Stress Test Attending Physician: Dr. Pj Spear Referring Physician: Dr. Brittany Coffman Test Indications: Dyspnea Height:4 ft 10 in Weight:130lbs Medications: CATAPRESS, PLAVIX, SANTYL, DILAUDUD, TRANDATE, SYNTHROID, NIFEDIPINE, PERCOCET Medical History: 57 YEAR OLD FEMALE WITH A H/O RENAL FAILURE ON DIALYSIS, COPD, STROKE, M, HTN, PULMONARY HTN, SMOKING, CHF, DVT, DIVERTICULITIS, GERD Target HR: 163 bpm Resting ECG: RSR. LVH. ST_T Changes. Resting Heart Rate: 86 bpm Resting Blood Pressure: 148/72mmHg Submaximum (85%): 139 bpm PROCEDURE Pharmacologic stress testing was performed using 0.4mg per 5ml of regadenoson given intravenously over 7-10 seconds. Reversal agent aminophyline 100 mg, given intravenously for Other. POST EXERCISE Reason for Termination: Protocol completed Target HR: No Max HR: 89 bpm 67% of Maximum Predicted HR: 163 bpm Exercise duration: 00:31 min:sec, 0 Stage Exercise capacity: 1.0METs Max Blood Pressure: 148/72mmHg Blood Pressure response to exercise: resting hypertension - appropriate response Heart Rate response to exercise: appropriate Chest Pain: No, none Angina index: 0 Arrhythmia: No, none ST Change: Yes, No Additional ST_T Changes. Deviation: 0 mm INTERPRETATION Stress EKG Conclusion: IV LEXISCAN NUCLEAR STRESS TEST NEGATIVE FOR CHEST PAIN AND NEGATIVE FOR ST-T CHANGES. NUCLEAR SCAN REPORT PENDING. Signed by Pj Spear Electronically Approved: 08/21/2017 13:43:06 EXAM: Myocardial Perfusion REST/STRESS Stress Test Type: Pharmacologic Imaging Protocol Rest Spect myocardial perfusion imaging was performed in supine position 30 minutes following the injection of 10.2 mCi of At peak stress, the patient was injected intravenously with 30.2mCi of Tc-99 tetrofosmin after an infusion time of 0 minutes and 10 seconds. Gated Stress Spect was performed 45 minutes after intravenous Tc-99 Myoview injection. The images were gated to evaluate regional wall motion and calculate ventricular ejection fraction.Images were reconstructed using backfilter projection method in short horizontal and verticle long axis. Spect slices were generated. LV Perfusion The quality of the study is good. The left ventricle is within normal limits in size with thickened myocardium. The right ventricle is unremarkable. The lung uptake is within normal limits. The distribution of tracer reveals normal uptake pattern throughout the LV myocardium on the stress study. The rest myocardial perfusion study shows no significant change. Wall Motion Wall motion study shows good contractility of the left ventricle. LVEF = 68%. Conclusion 1. Essentially normal SPECT myocardial perfusion study. 2. Fixed, anterior defect is most likely due to breast attenuation. 3. Normal gated wall motion of the left ventricle.
[2017-08-22] MEDS: HYDROmorphone 1 mg/ml ISec IVP PRN ×5 (01:00→20:26)
[2017-08-22] MEDS: Levothyroxine 100 MCG TAB PO SCH (05:44)
[2017-08-22] MEDS ORDERED: Darbepoetin Alfa 60 mcg/ml Inj IVP ONE (06:26)
[2017-08-22 07:45] LABS: BASO # 0.06 K/mm3 (0.0-2.0); BASO % 0.8 % (0.0-3.0); EOS # 0.4 (0.0-0.7); EOS % 5.2 % (1.5-5.0); GRAN # 4.51 (1.4-6.5); GRAN % 63.5 % (50.0-68.0); HEMATOCRIT 31.7 % (36.0-48.0); LYMPH # 1.6 (1.2-3.4); LYMPH % 22.5 % (22.0-35.0); MEAN CELL VOLUME 98.1 fl (80.0-105.0); MEAN CORPUSCULAR HEMOGLOBIN 28.8 pg (25.0-35.0); MEAN CORPUSCULAR HGB CONC 29.3 g/dl (31.0-37.0); MEAN PLATELET VOLUME 9.8 fl (7.0-11.0); MONO # 0.6 (0.1-0.6); RED CELL DISTRIBUTION WIDTH 15.3 % (11.5-14.5); WHITE BLOOD COUNT 7.1 10^3/ul (4.5-11.0)
[2017-08-22 08:18] LABS: ALB/GLOB RATIO 1.5 (1.1-1.8); BILIRUBIN,TOTAL 0.4 mg/dL (0.2-1.3); CALCIUM 9.4 mg/dL (8.4-10.5); MAGNESIUM 2.2 mg/dL (1.7-2.2); PHOSPHOROUS 5.8 mg/dL (2.5-4.5); POTASSIUM 5.2 mmol/L (3.6-5.0); TOTAL PROTEIN 5.8 g/dL (5.8-8.3)
[2017-08-22] MEDS ORDERED: Doxercalciferol 4 mcg/2 ml Inj IV ONE (08:33)
[2017-08-22] MEDS: Collagenase 250 Units/gm Ointment(30 gm) TOP SCH (10:10)
[2017-08-22] MEDS: NIFEdipine 90 mg ER Tab PO SCH (10:32)
--- NOTE | 2017-08-22 11:33 | CP.PCM.PN ---
<Amina Moreno - Last Filed: 08/22/17 11:28> Subjective - Date & Time of Evaluation Date of Evaluation: 08/22/17 Time of Evaluation: 09:45 - Subjective Subjective: Podiatry Progress Note - Dr. Forte 57 year old female patient seen at bedside for ulceration of right leg. Pt seen resting comfortably in bed at time of visit, NAD. Does complain of tenderness to the wound, however says the Dilaudid and lidocaine jelly do help. Says she is anxious about dressing changes due to the pain. Denies f/n/v/c/sob/cp/ weakness or dizziness. Offers no other complaints. Objective - Vital Signs/Intake and Output Vital Signs (last 24 hours): Temp Pulse Resp BP Pulse Ox 98.4 F 80 20 160/74 H 97 08/22/17 06:00 08/22/17 06:00 08/22/17 06:00 08/22/17 10:31 08/22/17 06:00 Intake and Output: 08/22/17 08/22/17 06:59 18:59 Intake Total 300 Output Total 100 Balance 200 - Medications Medications: Current Medications Clonidine HCl (Catapres) 0.2 mg PO BID [facility] Last Admin: 08/22/17 10:31 Dose: 0.2 mg Clopidogrel Bisulfate (Plavix) 75 mg PO DAILY [facility] Last Admin: 08/22/17 10:31 Dose: 75 mg Collagenase (Santyl) 0 gm TOP DAILY [facility] Last Admin: 08/21/17 13:11 Dose: 1 unit Hydromorphone HCl (Dilaudid) 1 mg SC Q4H PRN PRN Reason: Pain, moderate (4-7) Last Admin: 08/20/17 16:31 Dose: 1 mg Hydromorphone HCl (Dilaudid) 1 mg IVP Q4H PRN PRN Reason: Pain, severe (8-10) Last Admin: 08/22/17 10:32 Dose: 1 mg Labetalol HCl (Trandate) 300 mg PO Q8 [facility] Last Admin: 08/22/17 05:44 Dose: 300 mg Levothyroxine Sodium (Synthroid) 100 mcg PO 0600 [facility] Last Admin: 08/22/17 05:44 Dose: 100 mcg Nifedipine (Procardia Xl) 90 mg PO DAILY [facility] Last Admin: 08/22/17 10:32 Dose: 90 mg Ondansetron HCl (Zofran Inj) 4 mg IVP Q8H PRN PRN Reason: Nausea/Vomiting Last Admin: 08/21/17 13:14 Dose: 4 mg Oxycodone/Acetaminophen (Percocet 10/325 Mg Tab) 1 tab PO Q6H PRN PRN Reason: Pain, severe (8-10) Last Admin: 08/20/17 09:42 Dose: 1 tab Sevelamer HCl (Renagel) 1,600 mg PO TID [facility] Last Admin: 08/22/17 10:31 Dose: 1,600 mg - Labs Labs: 08/22/17 06:10 08/22/17 06:10 - Constitutional Appears: Non-toxic, No Acute Distress - Extremities Exam Additional comments: VASC: DP pulses weakly palpable 1/4 b/l. PT pulses nonpalpable b/l. Temperature gradient cool to cool b/l. No edema noted. CFT WNL. NEURO: Hypersensitivity to bilateral lower extremities, R>L DERM: Ulceration noted to medial aspect of right calf, measuring approximately 5 x 3 x 0.2 cm with mixed fibrogranular base and mild erythema periwound. Small satellite lesion proximal to ulcer #1 measuring approximately 0.5 x 1 x 0.1 cm also with a mixed fibrogranular base and erythema periwound. No necrosis noted to either wound. Nails 1-10 are thickened, elongated, dystrophic with subungual debris and hypertrophy. 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 Forte Chart, labs and vitals reviewed: afebrile, no leukocytosis Pt premedicated with 1mg IV Dilaudid Wound cleansed with saline, lidocaine jelly applied periwound, santyl, adaptic, DSD applied Ulcer prognosis is poor Continue IV abx Right leg wound cx pending Podiatry will continue to follow patient while in house <Dougie Forte - Last Filed: 08/26/17 08:12> Objective - Vital Signs/Intake and Output Vital Signs (last 24 hours): Temp Pulse Resp BP Pulse Ox 98.5 F 84 20 159/73 H 95 08/24/17 16:00 08/24/17 16:00 08/24/17 16:00 08/24/17 16:00 08/24/17 16:00 - Labs Labs: 08/22/17 06:10 08/22/17 06:10 Attending/Attestation - Attestation I have personally seen and examined this patient.: Yes I have fully participated in the care of the patient.: Yes I have reviewed all pertinent clinical information, including history, physical exam and plan: Yes
[2017-08-22] MEDS: Pantoprazole 40 mg EC Tab PO SCH (15:34)
[2017-08-22] MEDS: POLYETHYLENE GLYCOL 3350 17 GM/Dose PACKET PO SCH (17:08)
[2017-08-22] MEDS ORDERED: Bisacodyl 5mg EC Tab PO ONE (18:16)
[2017-08-22] MEDS: Cilostazol 100 mg Tab UD PO SCH (19:13)
[2017-08-22] MEDS: Budesonide 0.5 mg/2 ml Inhal Susp UD IH SCH (19:28)
[2017-08-22] MEDS: Arformoterol 15 mcg/2 ml Inh Sol IH SCH (19:28)
--- NOTE | 2017-08-22 23:11 | PN ---
DATE: 08/22/2017 SUBJECTIVE: The patient is seen lying in bed. She is awake. She is alert. She is complaining of some shortness of breath. She is complaining of pain in her right leg. PHYSICAL EXAMINATION GENERAL: Middle-aged lady lying in bed. VITAL SIGNS: Blood pressure 148/63, heart rate 78, respiratory rate 18 and temperature 98.5. HEENT: Normocephalic and atraumatic. Positive pallor. NECK: Supple. No JVD. CARDIOPULMONARY: S1 and S2. Regular rate and rhythm, no murmur, no rub. LUNGS: Bilateral equal entry, no rales. EXTREMITIES: Dressing of the right lower leg. LABORATORY DATA: WBC 7, hemoglobin 9, hematocrit 32 and platelets 256. Sodium 138, potassium 5.2, chloride 100, CO2 of 27, BUN 45, creatinine 5.8 and glucose 81. CURRENT MEDICATIONS: Brovana, Catapres, Dilaudid, MiraLax, Percocet, Plavix, Pletal, Procardia XL, Protonix, RenaGel, Collagenase, Synthroid, Trandate, Xanax and Zofran. ASSESSMENT: 1. Decompensated congestive heart failure, getting better. 2. Hypertension, controlled. 3. End-stage renal disease. 4. Anemia of chronic kidney disease. 5. Peripheral vascular disease, status post lower extremity bypass. PLAN: 1. Stable dialysis today. 2. Continue current antihypertensives. 3. Continue phosphate binders. Tamanna Smith MD
--- NOTE | 2017-08-22 23:26 | PN ---
DATE: 08/22/2017 LOCATION: The patient is in 271, bed 2. REASON FOR CONSULTATION: Shortness of breath, uncontrolled hypertension, end-stage renal disease, COPD, and coronary artery disease. SUBJECTIVE: The patient lying in bed without any chest pain or palpitation. Off and on she complaints of shortness of breath especially on minimal exertion. PHYSICAL EXAMINATION: VITAL SIGNS: Blood pressure 144/66, respiration 18, pulse 78, and temperature 98.5. HEENT: Head is normocephalic. Eyes; pupils are normal. Conjunctivae slightly pale. NECK: JVP is low. Carotids are equal. THORAX: AP diameter normal. LUNGS: No significant rales. CARDIOVASCULAR: S1 and S2. ABDOMEN: Soft. No tenderness. No organomegaly. Bowel sounds normal. EXTREMITIES: No clubbing. No cyanosis. LABORATORY DATA: WBC 7.1, hemoglobin 9.3, hematocrit 31.7, and platelets 256. Sodium 138, potassium 5.2, BUN 45, creatinine 5.8, magnesium 2.2. AST 39, ALT 24. Total protein 5.8 and albumin 3.5. TSH 5.20. Troponin on 08/20/2017 was 1.09 and on 08/21/2017 was 0.80. Stress test on 08/21/2017 showed normal myocardial perfusion study with LV ejection fraction of 68%. Echo was done on 08/20/2017, which showed left ventricle size normal. [id number] concentric left ventricular hypertrophy, normal LV systolic function with ejection fraction 65% to 70%. Trace aortic mitral regurgitation, trace to mild tricuspid regurgitation. DIAGNOSES: Coronary artery disease, status post percutaneous transluminal coronary angioplasty of the circumflex on 01/31/2017 at [facility]. Recently, had left aortoiliac and possible femoral popliteal bypass, admitted with shortness of breath with BNP of 238,000. Admitting blood pressure 200/144. Mildly elevated troponin. No changes on EKG. Echo done and showed findings above, which showed only trivial pericardial effusion, which is not significant. She states that at [facility], she was told to follow up for pericardial effusion on their echo and she was told that she had some pericardial effusion. PLAN: We think that the troponin is falsely elevated due to high BUN and creatinine. Stress test is negative. The patient does not have any chest pain also. We will continue clonidine 0.2 b.i.d., Plavix 75 mg daily, Pletal 100 mg b.i.d., Procardia XL 90 mg daily, Protonix 40 daily, Synthroid 100 mcg daily, labetalol 300 mg p.o. q. 8 hour. Chest x-ray; there is no active pulmonary disease, mild cardiomegaly, mild vascular congestion, renal failure on dialysis. Dialysis as per renal being followed by Dr. Smith, Renal. We will follow. Pj Spear MD
--- NOTE | 2017-08-22 23:34 | PN ---
DATE: SUBJECTIVE: The patient is a 57-year-old, complaining of abdominal discomfort, was nauseous earlier, complained of constipation. She states only Dilaudid helped for her right leg pain. No complaints of headache or generalized weakness. PHYSICAL EXAMINATION GENERAL: She is awake, alert, and oriented. VITAL SIGNS: She is afebrile. Pulse 70, respirations 18, and blood pressure 148/63. LUNGS: Bilateral fair airflow. No rhonchi or crackle. HEART: S1 and S2 audible. ABDOMEN: Soft, nontender. No rebound. No guarding. NEUROLOGIC: She is awake, alert, oriented. Complains of right lower extremity excruciating pain. ASSESSMENT: 1. Constipation secondary to narcotics. 2. History of chronic obstructive pulmonary disease. The patient has been active smoker up until few months, has been smoking for more than 40 years. 3. Pulmonary hypertension. 4. Positive troponin, but stress test done yesterday is unremarkable. 5. Bilateral severe peripheral vascular disease, status post bypass done in . 6. Right francis ischemic ulcer. PLAN: I will start her on Dulcolax, we will give her one dose of Relistor and start her on MiraLax. Analgesic as needed. Since stress test is negative, I will discontinue telemetry, will continue her on nebulizers and we will evaluate the patient. Brittany Coffman MD
[2017-08-23] MEDS: HYDROmorphone 1 mg/ml ISec SC PRN (01:42)
--- NOTE | 2017-08-23 01:43 | CON ---
DATE: 08/22/2017 PULMONARY CONSULT REFERRING PHYSICIAN: Dr. Coffman. REASON FOR CONSULT: Cough, shortness of breath, history of pulmonary hypertension, may have a sleep apnea syndrome. HISTORY OF PRESENT ILLNESS: This is a 57-year-old female with multiple medical issues, including chronic obstructive lung disease, hypertension, history of coronary artery disease requiring angioplasty in the past, renal failure, dialysis dependent, anemia, peripheral vascular disease requiring a bypass surgery in the past, known healing ulcer of the right leg, anxiety disorder, comes in with cough and shortness of breath, and respiratory failure requiring noninvasive ventilation, done well overnight. This morning feels fair on nasal cannula. Still have cough and shortness of breath. No nausea, no vomiting, no diarrhea. PAST MEDICAL HISTORY: As per history of present illness. SOCIAL HISTORY: Still smokes, but decrease in the amount. Denies any alcohol use. ALLERGIES: ALLERGIC TO CIPRO, HYDRALAZINE, VANCOMYCIN, IV CONTRAST. FAMILY HISTORY: No significant cardiopulmonary disease reported. MEDICATIONS: She is on Catapres 0.2 mg twice a day, Dilaudid 1 mg subcutaneously q.4 hours p.r.n. for moderate to severe pain, MiraLax 17 g daily, Percocet 10/325 one tablet q.6 hours p.r.n. for mild pain, Plavix 75 mg daily, Procardia XL 90 mg daily, Protonix 40 mg daily, Renagel three times a day, Santyl affected area, Synthroid 100 mcg daily, labetalol 300 mg q.8 hours, Xanax 0.25 mg q.8 hours p.r.n., Zofran p.r.n. basis. REVIEW OF SYSTEMS: No headache. Admit to have loud snoring, daytime sleepiness, cough, shortness of breath. No chest pain, no nausea, no vomiting, no diarrhea. Has a right leg chronic pain with known healing ulcer. According to the patient, she has a known history of pulmonary hypertension, been on Revatio in the past. PHYSICAL EXAMINATION: GENERAL: Lying in the bed, no acute distress. VITAL SIGNS: Temperature is 99, heart rate is 78, respiratory rate is 18, blood pressure 144/66, pulse ox 97% on nasal cannula. HEENT: Moist mucous membranes. Crowded airway. Mallampati score is four. NECK: Supple. No JVD. LUNGS: Has crackles at the bases. Scattered rhonchi. Few wheezing. HEART: S1, S2. ABDOMEN: Soft, nontender. No organomegaly. EXTREMITIES: Does have a trace edema. Right leg has a nonhealing ulcer. NEUROLOGIC: Awake, alert, and follows simple commands. LABORATORY DATA: Shows hemoglobin 9.3, hematocrit 31.7, WBC is 7.1, platelet is 256. Sodium 138, potassium 5.2, chloride 100, bicarbonate 27, BUN 45, creatinine 5.8, glucose 81, calcium is 9.4, phosphorus 5.8, AST 39, ALT 24, alk phos is 86. Troponin on admission was 1.09. Albumin is 3.5. TSH 5.2. MICROBIOLOGY: Ankle wound has gram-negative rods. Has a myocardial stress test done yesterday, which shows LV ejection fraction 68%, fixed anterior defect most likely due to breast attenuation, normal gated wall motion of the left ventricle. Echocardiogram done on August 10 shows moderate to severe concentric left ventricular hypertrophy, left atrium is mildly dilated, right ventricle systolic function reported as normal. In the ER, has a chest x-ray done which shows mild vascular congestion. IMPRESSION AND PLAN: Cardiomyopathy with diastolic dysfunction with pulmonary edema, renal failure, dialysis dependent, history of coronary artery disease requiring angioplasty in the past, severe peripheral vascular disease requiring bypass surgery, has a nonhealing ulcer on the right leg, component of chronic obstructive lung disease, may have sleep apnea syndrome, also have anemia. Agree with Dr. Coffman with the present management. Continue bilevel positive airway pressure while sleeping. Keep head 45 degrees. We will add inhaled bronchodilator. There may be component of chronic lung disease. 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 We will recommend pulmonary function test and attended sleep study upon discharge as an outpatient. Thank you, and we will follow with you. Pj Lazaro MD
[2017-08-23] MEDS: HYDROmorphone 1 mg/ml ISec IVP PRN ×4 (06:09→19:30)
[2017-08-23] MEDS: Levothyroxine 100 MCG TAB PO SCH (06:10)
[2017-08-23] MEDS: Arformoterol 15 mcg/2 ml Inh Sol IH SCH ×2 (07:40→19:11)
[2017-08-23] MEDS: Budesonide 0.5 mg/2 ml Inhal Susp UD IH SCH ×2 (07:40→19:11)
[2017-08-23] MEDS: NIFEdipine 90 mg ER Tab PO SCH (09:44)
[2017-08-23] MEDS: Cilostazol 100 mg Tab UD PO SCH ×2 (09:44→17:17)
[2017-08-23] MEDS: Pantoprazole 40 mg EC Tab PO SCH (09:45)
[2017-08-23] MEDS: POLYETHYLENE GLYCOL 3350 17 GM/Dose PACKET PO SCH (09:50)
--- NOTE | 2017-08-23 10:57 | CP.PCM.PN ---
<Amina Moreno - Last Filed: 08/23/17 10:54> Subjective - Date & Time of Evaluation Date of Evaluation: 08/23/17 Time of Evaluation: 10:15 - Subjective Subjective: Podiatry Progress Note - Dr. Blanton 57 year old female patient seen at bedside for ulceration of right leg. Pt seen resting comfortably in bed at time of visit. Says she just received the dialudid for right leg pain. Complains of a burning pain to the right leg wound. Also complains of some left heel tenderness today. Denies f/n/v/c/sob/cp/ weakness or dizziness at this time. Offer no further complaints at present. Objective - Vital Signs/Intake and Output Vital Signs (last 24 hours): Temp Pulse Resp BP Pulse Ox 98.7 F 77 20 197/83 H 99 08/23/17 06:00 08/23/17 06:10 08/23/17 06:00 08/23/17 09:45 08/23/17 06:00 Intake and Output: 08/23/17 08/23/17 06:59 18:59 Intake Total 120 Output Total 0 Balance 120 - Medications Medications: Current Medications Alprazolam (Xanax) 0.25 mg PO Q8 PRN; Protocol PRN Reason: Anxiety Stop: 08/29/17 22:01 Last Admin: 08/22/17 22:29 Dose: 0.25 mg Arformoterol Tartrate (Brovana) 15 mcg IH [id number] [facility] Last Admin: 08/23/17 07:40 Dose: 15 mcg Budesonide (Pulmicort Respules) 0.5 mg IH [id number] [facility] Last Admin: 08/23/17 07:40 Dose: 0.5 mg Cilostazol (Pletal) 100 mg PO BID [facility] Last Admin: 08/23/17 09:44 Dose: 100 mg Clonidine HCl (Catapres) 0.2 mg PO BID [facility] Last Admin: 08/23/17 09:45 Dose: 0.2 mg Clopidogrel Bisulfate (Plavix) 75 mg PO DAILY [facility] Last Admin: 08/23/17 09:45 Dose: 75 mg Collagenase (Santyl) 0 gm TOP DAILY [facility] Last Admin: 08/22/17 10:10 Dose: Not Given Hydromorphone HCl (Dilaudid) 1 mg SC Q4H PRN PRN Reason: Pain, moderate (4-7) Last Admin: 08/23/17 01:42 Dose: 1 mg Hydromorphone HCl (Dilaudid) 1 mg IVP Q4H PRN PRN Reason: Pain, severe (8-10) Last Admin: 08/23/17 09:50 Dose: 1 mg Labetalol HCl (Trandate) 300 mg PO Q8 [facility] Last Admin: 08/23/17 06:10 Dose: 300 mg Levothyroxine Sodium (Synthroid) 100 mcg PO 0600 [facility] Last Admin: 08/23/17 06:10 Dose: 100 mcg Nifedipine (Procardia Xl) 90 mg PO DAILY [facility] Last Admin: 08/23/17 09:44 Dose: 90 mg Ondansetron HCl (Zofran Inj) 4 mg IVP Q8H PRN PRN Reason: Nausea/Vomiting Last Admin: 08/22/17 13:59 Dose: 4 mg Ondansetron HCl (Zofran Odt) 4 mg PO Q6H PRN PRN Reason: Nausea/Vomiting Oxycodone/Acetaminophen (Percocet 10/325 Mg Tab) 1 tab PO Q6H PRN PRN Reason: Pain, severe (8-10) Last Admin: 08/20/17 09:42 Dose: 1 tab Pantoprazole Sodium (Protonix Ec Tab) 40 mg PO DAILY [facility] Last Admin: 08/23/17 09:45 Dose: 40 mg Polyethylene Glycol (Miralax) 17 gm PO DAILY [facility] Last Admin: 08/23/17 09:50 Dose: 17 gm Sevelamer HCl (Renagel) 1,600 mg PO TID [facility] Last Admin: 08/23/17 09:44 Dose: 1,600 mg - Labs Labs: 08/22/17 06:10 08/22/17 06:10 - Constitutional Appears: Non-toxic, No Acute Distress - Extremities Exam Additional comments: VASC: DP pulses weakly palpable 1/4 b/l. PT pulses nonpalpable b/l. Temperature gradient cool to cool b/l. No edema noted. CFT WNL. NEURO: Hypersensitivity to bilateral lower extremities, R>L DERM: Ulceration noted to medial aspect of right calf, measuring approximately 5 x 3 x 0.2 cm with mixed fibrogranular base and mild erythema periwound. Small satellite lesion proximal to ulcer #1 measuring approximately 0.5 x 1 x 0.1 cm also with a mixed fibrogranular base and erythema periwound. No necrosis noted to either wound. Nails 1-10 are thickened, elongated, dystrophic with subungual debris and hypertrophy. 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 Blanton Chart, labs and vitals reviewed: afebrile, no leukocytosis Pt premedicated with 1mg IV Dilaudid Wound cleansed with saline, lidocaine jelly applied periwound and over wound base, santyl, adaptic, DSD applied Ulcer prognosis is guarded Right leg wound cx: + pseudomonas (heavy growth) Continue IV abx Offloading boot ordered for left heel to be worn at all times while in bed Podiatry will continue to follow patient while in house <Wendy Blanton - Last Filed: 08/24/17 17:32> Objective - Vital Signs/Intake and Output Vital Signs (last 24 hours): Temp Pulse Resp BP Pulse Ox 99.1 F 78 20 149/57 L 99 08/24/17 08:00 08/24/17 13:47 08/24/17 08:00 08/24/17 13:47 08/24/17 08:00 Intake and Output: 08/24/17 08/24/17 06:59 18:59 Intake Total 240 300 Balance 240 300 - Medications Medications: Current Medications Alprazolam (Xanax) 0.25 mg PO Q8 PRN; Protocol PRN Reason: Anxiety Stop: 08/29/17 22:01 Last Admin: 08/24/17 05:50 Dose: 0.25 mg Arformoterol Tartrate (Brovana) 15 mcg IH [id number] [facility] Last Admin: 08/24/17 07:32 Dose: 15 mcg Budesonide (Pulmicort Respules) 0.5 mg IH [id number] [facility] Last Admin: 08/24/17 07:32 Dose: 0.5 mg Cilostazol (Pletal) 100 mg PO BID [facility] Last Admin: 08/24/17 17:12 Dose: 100 mg Clonidine HCl (Catapres) 0.2 mg PO Q8 [facility] Last Admin: 08/24/17 13:47 Dose: 0.2 mg Clopidogrel Bisulfate (Plavix) 75 mg PO DAILY [facility] Last Admin: 08/24/17 10:38 Dose: 75 mg Collagenase (Santyl) 0 gm TOP DAILY [facility] Last Admin: 08/24/17 10:38 Dose: 1 unit Labetalol HCl (Trandate) 300 mg PO Q8 [facility] Last Admin: 08/24/17 13:46 Dose: 300 mg Levothyroxine Sodium (Synthroid) 100 mcg PO 0600 [facility] Last Admin: 08/24/17 05:47 Dose: 100 mcg Nifedipine (Procardia Xl) 90 mg PO DAILY [facility] Last Admin: 08/24/17 10:38 Dose: Not Given Ondansetron HCl (Zofran Inj) 4 mg IVP Q8H PRN PRN Reason: Nausea/Vomiting Last Admin: 08/24/17 16:35 Dose: 4 mg Ondansetron HCl (Zofran Odt) 4 mg PO Q6H PRN PRN Reason: Nausea/Vomiting Pantoprazole Sodium (Protonix Ec Tab) 40 mg PO DAILY [facility] Last Admin: 08/24/17 10:38 Dose: 40 mg Polyethylene Glycol (Miralax) 17 gm PO DAILY [facility] Last Admin: 08/24/17 10:39 Dose: 17 gm Sevelamer HCl (Renagel) 1,600 mg PO TID [facility] Last Admin: 08/24/17 17:12 Dose: 1,600 mg - Labs Labs: 08/22/17 06:10 08/22/17 06:10 Attending/Attestation - Attestation I have personally seen and examined this patient.: Yes I have fully participated in the care of the patient.: Yes I have reviewed all pertinent clinical information, including history, physical exam and plan: Yes
[2017-08-23] MEDS: Collagenase 250 Units/gm Ointment(30 gm) TOP SCH (11:39)
[2017-08-23] MEDS ORDERED: Magnesium Citrate Oral SOL (300 ml) PO ONE (14:00)
--- NOTE | 2017-08-23 16:46 | PN ---
DATE: 08/23/2017 LOCATION: The patient is in room 271, bed 2. REASON FOR CONSULTATION: Shortness of breath, uncontrolled hypertension, end-stage renal disease, COPD, and coronary artery disease. SUBJECTIVE: The patient still complains of shortness of breath, but no chest pain or palpitation. The patient is lying comfortably in bed at present. PHYSICAL EXAMINATION: VITAL SIGNS: Blood pressure 134/69, respirations 16, pulse 82, and temperature 98.0. HEENT: Head is normocephalic. Eyes; pupils are normal. Conjunctivae slightly pale. NECK: JVP low. Carotid equal. THORAX: AP diameter normal. LUNGS: No rales. CARDIOVASCULAR: S1 and S2. ABDOMEN: Soft. No tenderness. No organomegaly. EXTREMITIES: No clubbing. No cyanosis. LABORATORY DATA: WBC 7.1, hemoglobin 9.3, hematocrit 31.7, and platelets 256. Sodium 138, potassium 5.2, BUN 45, creatinine 5.8, calcium 9.4, phosphorus 5.8, and magnesium 2.2. AST 39 and ALT 24. Total protein 5.8 and albumin 3.5. DIAGNOSES: Coronary artery disease, status post percutaneous transluminal coronary angioplasty of circumflex on 01/31/2017 at [facility]; recently she left aortoiliac and possible femoral popliteal bypass. The patient was admitted with shortness of breath and high blood pressure, uncontrolled hypertension, chronic obstructive pulmonary disease, end-stage renal disease. Troponin on 08/20/2017 was 1.09 and on 08/21/2017 was 0.80. Stress test on 08/21/2017 within normal, left ventricular ejection fraction of 68%. Echocardiogram on 08/20/2017, normal left ventricular size, moderate to severe concentric left ventricular hypertrophy, normal left ventricular systolic function with ejection fraction of 65-70%, trace aortic and mitral regurgitation, trace to mild tricuspid regurgitation. In emergency room, the patient's blood pressure was 200/144. PLAN: The patient's troponin probably falsely elevated with negative stress test and no chest pain. The patient is on clonidine 0.2 mg p.o. q.8 hours, Plavix 75 mg daily, Pletal 100 mg b.i.d., nifedipine ER 90 mg p.o. daily, Renagel 1600 mg p.o. t.i.d., Synthroid 100 mcg p.o. daily, and labetalol 300 mg p.o. q.8 hours. We will continue present therapy and being followed by Dr. Lazaro from the Pulmonary. We will follow. Pj Spear MD
--- NOTE | 2017-08-23 17:27 | PN ---
DATE: 08/23/2017 REFERRING PHYSICIAN: Brittany Coffman MD SUBJECTIVE: The patient is lying in the bed, head 45 degrees. Night was unremarkable. Uses CPAP, still is shortness of breath. No chest pain. No nausea. No vomiting. No diarrhea. Has a right leg dressing on the nonhealing wound. OBJECTIVE: GENERAL: In no acute distress. VITAL SIGNS: Temperature 98, heart rate 77, respiratory rate is 20, blood pressure 197/83, and pulse oximetry is 99% on 2 L nasal cannula. HEENT: Moist mucous membranes. Crowded airway. Mallampati score is IV. NECK: Supple. No JVD. LUNGS: Has a few scattered rhonchi. HEART: S1 and S2. ABDOMEN: Soft and nontender. No organomegaly. EXTREMITIES: No edema. Right leg has a nonhealing ulcer. NEUROLOGICAL: Awake and alert. Follows simple commands. MEDICATIONS: She is on Brovana 50 mcg inhaled twice a day, clonidine 0.2 mg twice a day, Dilaudid 1 mg subcu q. 4 hours p.r.n., MiraLax 17 g daily, Percocet 10/325 one tab q. 6 hours p.r.n., Plavix 75 mg daily, Pletal 100 mEq twice a day, Procardia XL is 90 mEq daily, Protonix 40 mg daily, Pulmicort inhaled twice a day, Renagel with meals, Santyl to the affected areas, Synthroid 100 mcg daily, labetalol 300 mg q. 8 hours, Xanax 0.25 mEq q.8 hours p.r.n., Zofran p.r.n. LABORATORY DATA: Data shows hemoglobin 9.3, hematocrit 31.7, WBC 7.1, platelets are 256. Sodium 138, potassium 5.2, chloride 100, bicarbonate 27, BUN is 45, creatinine 5.8, glucose 81, calcium is 9.4, phosphorus is 5.8, magnesium 2.8, AST 39, ALT 24, alkaline phosphatase is 86, albumin is 3.5, TSH 5.20. Microbiology; ankle wound has a pseudomonas resistant to cefazolin. IMPRESSION AND PLAN: Cardiomyopathy with diastolic dysfunction with pulmonary edema, renal failure, dialysis dependent, history of coronary artery disease requiring angioplasty in the past, pseudo peripheral vascular disease requiring bypass surgery in the past, nonhealing right leg ulcer, obstructive lung disease, sleep apnea syndrome, also contributing factor is anemia. Pulmonary point of view, add inhaled bronchodilator. Continue BiPAP while sleeping. Could optimize hypertensive medication. Pj Lazaro MD cc:
[2017-08-23 18:56] VITALS: RESP 20
--- NOTE | 2017-08-23 19:24 | PN ---
DATE: SUBJECTIVE: Patient is 57 years old, seen and examined, complain of right leg pain, complain of constipation, complain of shortness of breath. PHYSICAL EXAMINATION: VITAL SIGNS: Patient is afebrile, pulse 82, respirations 16, blood pressure 134/69. LUNGS: Bilateral fair air flow. No rhonchi or crackles. HEART: S1, S2 audible. ABDOMEN: Soft, nontender. No rebound, no guarding. She does have some palpable discomfort in the left upper and left lower quadrants, but no rebound or guarding. NEUROLOGICAL: She is awake, alert, oriented, communicative. She has right lower leg painful ulcer. ASSESSMENT: 1. Chronic obstructive pulmonary disease exacerbation. 2. Positive troponin secondary to end-stage renal disease; however, stress test is unremarkable. Patient does have a history of angioplasty in the past and has circumflex stenting. 3. Questionable pulmonary hypertension. 4. Chronic anemia. 5. Chronic constipation. 6. Painful ischemic ulcer on the right lower foot. PLAN: We will continue patient on current antihypertensive. We will give her a dose of magnesium citrate. Dr. Blanton's input noted and appreciated. We will make a discharge plan after talking to other consultants. Brittany Coffman MD
[2017-08-24] MEDS: HYDROmorphone 1 mg/ml ISec IVP PRN ×4 (00:34→16:30)
[2017-08-24] MEDS: Levothyroxine 100 MCG TAB PO SCH (05:47)
[2017-08-24] MEDS: Arformoterol 15 mcg/2 ml Inh Sol IH SCH ×2 (07:32→19:55)
[2017-08-24] MEDS: Budesonide 0.5 mg/2 ml Inhal Susp UD IH SCH ×2 (07:32→19:55)
[2017-08-24] MEDS: NIFEdipine 90 mg ER Tab PO SCH ×2 (08:17→10:38)
--- NOTE | 2017-08-24 08:41 | PQF RESP ---
This form is a permanent part of the medical record Clarification of your documentation is requested to better reflect the severity of illness and intensity of treatment of your patient. Indicators present Consult 08/22 notes resp failure requiring noninvasive ventilation. Please document type & acuity POA [] Use of Home Oxygen [] Respiratory rate > 28 or <8/min (Labored respirations) [] PCO2 > 50 mm Hg or (Hypercapnia) (somnolence) [] PaO2 < 60 mm Hg or Hypoxemia (confusion) [] ABG blood gas pH < 7.35 [] SpO2 < 90% sat on Room Air [] Cyanosis [] Unable to Speak in Full Sentences [] Use of Accessory Muscles / Tripoding [x] Wheezing [] Other: [] Location in the medical record that reflects the above clinical findings: [x] Pul consult Treatment Provided: [] BiPap PHYSICIAN'S RESPONSE Based on your medical judgment of the clinical indicators outlined above, are you treating this patient for a known or suspected: [] Acute Respiratory Failure (hypoxia or hypercapnia) [] Chronic Respiratory Failure (hypoxia or hypercapnia) [] Acute on Chronic Respiratory Failure (hypoxia or hypercapnia) [] Hypoxemia please specify ACUTE, CHRONIC or ACUTE on CHRONIC [] Other []_ [] If unable to determine, please check the box, sign and date. Present On Admission (POA) Indicator: [] Present at the time of admission [] Not present at the time of admission [] Clinically Undetermined In responding to this query, please exercise your independent professional judgment. The fact that a question is asked does not imply that any particular answer is desired or expected. Thank you for your clarification on this documentation. If you have any questions please call:[ ][phone] * Thank you, [ ]Opal Limon RN CDS educational paraprofessional Chronic Respiratory Failure Description: Respiratory failure is a syndrome in which the respiratory system fails in one or both of its gas exchange functions: oxygenation and carbon dioxide elimination. In theory, respiratory failure is defined as a Pa02 value of <60 mm/Hg or a PaC02 of >50 mm/Hg. However, these values may be affected by renal compensation. Respiratory failure may be acute or chronic. While acute respiratory failure is characterized by life-threatening derangement in arterial blood gases and acid-base balance, the manifestations of chronic respiratory failure are less dramatic and may not be as readily apparent. Classifications: Respiratory failure may be classified as hypoxemic (usually characterized by Pa02 of <60 mm/Hg) or hypercapnic (usually characterized by PaC02 >50 mm/Hg) and either may be acute or chronic. Chronic hypercapnic respiratory failure develops over time and allows for renal compensation and an increase in bicarbonate concentration; therefore the pH is usually only slightly decreased. The distinction between acute and chronic hypoxemic respiratory failure cannot readily be made on the basis of ABGs; the clinical markers of chronic hypoxemia, such as polythycemia or cor pulmonale suggest a long standing disorder (chronic hypoxemic respiratory failure). Clinical Indicators: dyspnea at rest or "chronic" dyspnea, concomitant conditions such as polycythemia or cor pulmonale, requirement for continuous oxygen support, forced expiratory volume in one second (FEV1) of 49 or less, pursed lip breathing, "barrel" chest, hyperinflation by CXR, muscle wasting, malnutrition/obesity, poor exercise capacity, peripheral edema, description as a "blue bloater" (usually associated with chronic, obstructive bronchitis) or "pink puffer" (usually associated with emphysema) Risks: Chronic Hypoxemic Respiratory Failure - COPD, pulmonary fibrosis, asthma , pulmonary arterial hypertension, granulomatous lung diseases, congenital heart disease, bronchiectasis, kyphoscoliosis, obesity; Chronic Hypercapnic Respiratory Failure - COPD, severe asthma, myasthenia gravis, polyneuropathy, polio, head and cervical spine injuries, obesity hypoventilation syndrome. Treatment: supplemental oxygen, bronchodilators, corticosteroids, adequate nutrition, lung transplant References: Am. J. Respir. Crit. Care Med. "Global Strategy for the Diagnosis, Management and Prevention of COPD: GOLD Exectuive Summary," Franco Marks [place] - 2007; Proceedings of the [place] [employer] "Mechanisms and Measurements of Dyspnea in COPD," Cherrie - 2006; WebMD; Respiratory Failure, Curly Eaton MD - 03/2006; Guy's Principles of Internal Medicine, 17th edition. Acute Respiratory Failure Acute Respiratory Failure indicators include: ~Respirations >28 ~Air hunger ~Use of accessory muscles of respiration ~Inability to speak in full sentences Cyanosis ~Pulse ox <90% RA or <95% on O2 pH <7.35 or >7.45 ~pO2 < 60 mm Hg (or 10mm below COPD patient's baseline) ~pCO2 >50mm Hg (or 10mm above COPD patient's baseline) "Respiratory failure may be assigned as a principal diagnosis when it is the condition established after study to be chiefly responsible for occasioning admission to the hospital. The fact that the respiratory failure was managed without intubation and mechanical ventilation does not preclude its use." [facility], 3rd Qtr., 1988, p. 7 MTDD
--- NOTE | 2017-08-24 08:44 | PN ---
DATE: 08/21/2017 SUBJECTIVE: The patient is a 57-year-old seen in the Cardiology Department, getting nuclear stress test done. She states that her right leg pain is somewhat better with Dilaudid and applying lidocaine. She complain of epigastric pain and complain of nausea intermittently. PHYSICAL EXAMINATION: VITAL SIGNS: She is afebrile, pulse 87, respirations 18, and blood pressure 145/72. LUNGS: Bilateral fair airflow. No rhonchi or crackle. HEART: S1 and S2 audible. ABDOMEN: Soft and nontender. No rebound. No guarding. She has Shiley dialysis catheter in her right upper chest. EXTREMITIES: Right francis wound is in the dressing. LABORATORY DATA: WBC 7.7, hemoglobin 10, hematocrit 35.4, and platelet of 253. Chemistry: Sodium 138, potassium 4.9, chloride 101, CO2 of 28, BUN 31, creatinine 4.2, and blood sugar of 92. Her troponin was 1.21, has come down to 0.80. ASSESSMENT: 1. Positive troponin probably secondary to end-stage renal disease. 2. Right leg ischemic ulcer. 3. Hypertension. 4. Hyperlipidemia. 5. Pulmonary hypertension. 6. Hypothyroidism. PLAN: Currently, the patient is on calcium-channel mino. She is on Plavix. She is on levothyroxine. Continue on labetalol and local wound care. If her stress test is negative, we can discontinue her telemetry. Brittany Coffman MD
[2017-08-24] MEDS: HYDROmorphone 1 mg/ml ISec SC PRN ×2 (09:07→13:46)
[2017-08-24] MEDS: Pantoprazole 40 mg EC Tab PO SCH (10:38)
[2017-08-24] MEDS: Cilostazol 100 mg Tab UD PO SCH ×2 (10:38→17:12)
[2017-08-24] MEDS: Collagenase 250 Units/gm Ointment(30 gm) TOP SCH (10:38)
[2017-08-24] MEDS: POLYETHYLENE GLYCOL 3350 17 GM/Dose PACKET PO SCH (10:39)
--- NOTE | 2017-08-24 13:41 | PN ---
DATE: 08/24/2017 LOCATION: The patient is in room number 569, bed 1. REASON FOR CONSULTATION: Shortness of breath, uncontrolled hypertension, end-stage renal disease, COPD, and coronary artery disease. SUBJECTIVE: The patient denies chest pain or palpitation, but still continued to complaint about shortness of breath. PHYSICAL EXAMINATION: VITAL SIGNS: Blood pressure of 153/61, respirations of 20, pulse of 70, and temperature of 99.1. HEENT: Head is normocephalic. Eyes, pupils are normal. Conjunctivae slightly pale. NECK: JVP low. Carotids are equal. THORAX: AP diameter normal. LUNGS: With no significant rales. CARDIOVASCULAR: S1 and S2, ejection systolic murmur. No rub. ABDOMEN: Soft. No tenderness. No organomegaly. EXTREMITIES: No clubbing. No cyanosis. LABORATORY DATA: Labs were done on 08/22/2017 and they were reported on her previous progress note. DIAGNOSES: Coronary artery disease, status post percutaneous transluminal coronary angioplasty of the circumflex on 01/31/2017 at [facility] and recently, she had left aortoiliac and possible femoral popliteal bypass. The patient's admission was due to shortness of breath and uncontrolled hypertension. The patient also had chronic obstructive pulmonary disease and end-stage renal disease. Troponin on admission of 1.09 and 0.80, which is elevated. Stress test on 08/21/2017, normal with left ventricular ejection fraction of 68%. Echocardiography on 08/20/2017, showed left ventricular ejection fraction of 65% to 70%, severe concentric left ventricular hypertrophy, trace aortic and mitral regurgitation and trace mild tricuspid regurgitation. PLAN: The patient's troponin probably falsely elevated with negative stress test. The patient is on clonidine 0.2 mg p.o. q.8 hours, Plavix 75 mg daily, Pletal 100 mg b.i.d., Procardia XL 90 mg daily, labetalol 300 mg p.o. q. 8 hours. The patient is getting dialysis as per Renal. Clinically cardiac state is stable. The patient is being followed by Dr. Lazaro for Pulmonary. We will follow. Pj Spear MD
[2017-08-24] MEDS ORDERED: Lidocaine 2% Jelly (Uro-Jet) TOP ONE (16:41)
--- NOTE | 2017-08-24 17:31 | CP.PCM.PN ---
Subjective - Date & Time of Evaluation Date of Evaluation: 08/24/17 Time of Evaluation: 05:00 - Subjective Subjective: ADDENDUM: NOTE PT NEEDS ID CONSULT IN ORDER TO BE GIVEN CIPRO PER THE COMPUTER Objective - Vital Signs/Intake and Output Vital Signs (last 24 hours): Temp Pulse Resp BP Pulse Ox 99.1 F 78 20 149/57 L 99 08/24/17 08:00 08/24/17 13:47 08/24/17 08:00 08/24/17 13:47 08/24/17 08:00 Intake and Output: 08/24/17 08/24/17 06:59 18:59 Intake Total 240 300 Balance 240 300 - Medications Medications: Current Medications Alprazolam (Xanax) 0.25 mg PO Q8 PRN; Protocol PRN Reason: Anxiety Stop: 08/29/17 22:01 Last Admin: 08/24/17 05:50 Dose: 0.25 mg Arformoterol Tartrate (Brovana) 15 mcg IH [id number] [facility] Last Admin: 08/24/17 07:32 Dose: 15 mcg Budesonide (Pulmicort Respules) 0.5 mg IH [id number] [facility] Last Admin: 08/24/17 07:32 Dose: 0.5 mg Cilostazol (Pletal) 100 mg PO BID [facility] Last Admin: 08/24/17 17:12 Dose: 100 mg Clonidine HCl (Catapres) 0.2 mg PO Q8 [facility] Last Admin: 08/24/17 13:47 Dose: 0.2 mg Clopidogrel Bisulfate (Plavix) 75 mg PO DAILY [facility] Last Admin: 08/24/17 10:38 Dose: 75 mg Collagenase (Santyl) 0 gm TOP DAILY [facility] Last Admin: 08/24/17 10:38 Dose: 1 unit Labetalol HCl (Trandate) 300 mg PO Q8 [facility] Last Admin: 08/24/17 13:46 Dose: 300 mg Levothyroxine Sodium (Synthroid) 100 mcg PO 0600 [facility] Last Admin: 08/24/17 05:47 Dose: 100 mcg Nifedipine (Procardia Xl) 90 mg PO DAILY [facility] Last Admin: 08/24/17 10:38 Dose: Not Given Ondansetron HCl (Zofran Inj) 4 mg IVP Q8H PRN PRN Reason: Nausea/Vomiting Last Admin: 08/24/17 16:35 Dose: 4 mg Ondansetron HCl (Zofran Odt) 4 mg PO Q6H PRN PRN Reason: Nausea/Vomiting Pantoprazole Sodium (Protonix Ec Tab) 40 mg PO DAILY [facility] Last Admin: 08/24/17 10:38 Dose: 40 mg Polyethylene Glycol (Miralax) 17 gm PO DAILY [facility] Last Admin: 08/24/17 10:39 Dose: 17 gm Sevelamer HCl (Renagel) 1,600 mg PO TID [facility] Last Admin: 08/24/17 17:12 Dose: 1,600 mg - Labs Labs: 08/22/17 06:10 08/22/17 06:10
--- NOTE | 2017-08-24 19:26 | PN ---
DATE: 08/24/2017 SUBJECTIVE: The patient is seen lying in bed. She complains of shortness of breath. She complains of dyspnea with minimal exertion. She reports even if she gets up to use the bedside commode, she gets short of breath. PHYSICAL EXAMINATION: GENERAL: Middle-aged lady lying in bed. VITAL SIGNS: Blood pressure 149/57, heart rate 78, respiratory rate 20, temperature 99.1. HEENT: Normocephalic, atraumatic. NECK: Supple, no JVD. LUNGS: Bilateral equal air entry, no rales. CARDIAC: S1 and S2, regular rate and rhythm, no murmur, no rub. ABDOMEN: Soft, nondistended, nontender, bowel sounds present. EXTREMITIES: No lower extremity edema, dressing of the right lower leg. LABORATORY DATA: WBC 7, hemoglobin 9.3, hematocrit 32, platelets 256. Sodium 138, potassium 5.2, chloride 100, CO2 of 27, BUN 45, creatinine 5.8, glucose 81, calcium 9.4, phosphorus 5.8, magnesium 2.2. Wound culture Pseudomonas. MEDICATIONS: Brovana, Catapres 0.2 daily, Dilaudid, MiraLax, Plavix, Pletal, Procardia XL 90, Protonix, Pulmicort, sevelamer, Santyl, Trandate, Xanax, Zofran. ASSESSMENT: 1. Chronic obstructive pulmonary disease. 2. Cardiomyopathy with diastolic dysfunction. 3. Resolved pulmonary edema. 4. Persistent shortness of breath. 5. End-stage renal disease. 6. Anemia of chronic kidney disease. 7. Peripheral vascular disease. PLAN: 1. Continue respiratory treatments. 2. Increase ultrafiltration on dialysis as tolerated. 3. Optimize cardiac medications. 4. Next dialysis tomorrow. 5. Continue anticoagulants. Tamanna Smith MD
--- NOTE | 2017-08-24 20:21 | PN ---
DATE: 08/24/2017 SUBJECTIVE: This is a 57-year-old diabetic female, end-stage renal disease, seen for ulceration to her right leg. This is an extremely painful ulceration and she states that it feels a little better, but it is still extremely painful. We after premedicate her to do bedside dressing changes. MEDICATIONS: The patient's medications are noted on the MAR. PHYSICAL EXAMINATION VITAL SIGNS: The patient's temperature today is 99.1, pulse was 78, blood pressure is 149/57, and oxygen saturation was 99 on room air. LABORATORY DATA: The patient's lab show a white blood cell count of 7.1, H&H is 9.3, 31.7, and the platelets are 256. Chemistry shows BUN and creatinine of 45 and 5.8 and the troponin was 0.8 on 08/21/2017. The patient's lower extremity was evaluated. Her ulceration on the medial lower leg to the right side shows that it is slightly improved, the tissue is now more granular than fibrous, which was when I saw her on . There is still tenderness, however she is tolerating the dressing change a little better with the premedication and the Adaptic on the wound bed. She has no cellulitis and unfortunately, she has a satellite lesion just distal to the main lesion and there is another small satellite lesion posterior to the main lesion. She also has some dark spots on her leg medial ankle, which may preclude ulcerations in this area. The patient has no cellulitis. There is no malodor or fluctuance, but extreme pain is noted. MICROBIOLOGY: The patient's microbiology was noted. She has a heavy growth of pseudomonas. It is sensitive to Cipro and we will start ciprofloxacin on this patient. 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 I did start the patient on Cipro for the heavy pseudomonas, which was noted in the wound and the patient will be seen and followed. Unfortunately, calciphylaxis does not have a very good prognosis after healing. Wendy Blanton DPM
[2017-08-24] MEDS ORDERED: Oxycodone/Acetaminophen 10/325 mg Tab PO STA (20:45)
[2017-08-24 21:40] VITALS: BP 159/73; PULSE 84; TEMP 98.5; O2SAT 95
--- NOTE | 2017-08-25 01:41 | PN ---
PULMONARY PROGRESS NOTE DATE: 08/24/2017 REFERRING PHYSICIAN: Brittany Coffman MD SUBJECTIVE: She is sitting up in a bed, having dinner, feels okay, tolerated CPAP well. Still get short of breath with exertion. No nausea. No vomiting. No diarrhea. No leg pain. No leg swelling. OBJECTIVE: GENERAL: In no acute distress. VITAL SIGNS: Temperature 99, heart rate 72, respiratory rate 20, blood pressure 149/57, and pulse oximetry is 99% on room air. HEENT: Moist mucous membranes. Crowded airway. NECK: Supple. No JVD. LUNGS: Have a few scattered rhonchi. HEART: S1 and S2. ABDOMEN: Soft, nontender. No organomegaly. EXTREMITIES: Has a nonhealing ulcer on the leg. NEUROLOGICAL: Awake and alert. Follows simple commands. MEDICATIONS: She is on Brovana 50 mcg inhaled twice a day, clonidine 0.2 mg q. 8 hours, MiraLax 17 g p.o. daily, Plavix 75 mg daily, Pletal 100 mg twice a day, Procardia 90 mg daily, Protonix 40 mg daily, Pulmicort inhaled twice a day, Renagel 1.6 g p.o. three times a day, Santyl to the affected areas, Synthroid 100 mcg daily, labetalol 300 mg q. 8 hours, Xanax 0.25 mg q.8 hours p.r.n., Zofran p.r.n. LABORATORY DATA: Shows hemoglobin 9.3, hematocrit 31.7, WBC 7.1, platelets count is 256. Sodium 138, potassium 5.2, chloride 100, bicarbonate 27, BUN 45, creatinine 5.8, phosphorus 5.8, AST 39, ALT 24, alkaline phosphatase is 86, albumin is 3.5. Microbiology, ankle culture has pseudomonas. IMPRESSION AND PLAN: Cardiomyopathy with diastolic dysfunction; pulmonary edema; renal failure, dialysis dependent; coronary artery disease, requiring angioplasty in the past; peripheral vascular disease, requiring bypass surgery in the past; has a nonhealing ulcer; obstructive lung disease; sleep apnea syndrome; anemia. Pulmonary point of view, continue bronchodilator. Keep head at 45 degrees. Continue BiPAP upon discharge. Sleep study as an outpatient. Thank you and we will follow with you. Pj Lazaro MD
--- NOTE | 2017-08-25 05:55 | DS ---
DISCHARGE SUMMARY HISTORY OF PRESENT ILLNESS: The patient is 57 years old, seen and examined, lying in bed, seems to be comfortable. No cough, congestion. No shortness of breath. No nausea or vomiting. No diarrhea. Had bowel movements, seems to be better. PHYSICAL EXAMINATION: VITAL SIGNS: She is afebrile. Pulse 70, respirations 20, blood pressure 149/57. LUNGS: Bilateral good air flow. No rhonchi or crackles. HEART: S1, S2 audible. ABDOMEN: Soft and nontender. No rebound. No guarding. NEUROLOGIC: She is awake, alert, oriented. EXTREMITIES: Her right lower leg is in the dressing where she has ischemic ulcers. ASSESSMENT: 1. Status post pulmonary congestion with fluid overload. 2. Positive troponin probably secondary to end-stage renal disease. Had stress test that is unremarkable. 3. End-stage renal disease, on hemodialysis. 4. Bilateral severe peripheral vascular disease, status post bypass surgery. PLAN: The patient is being discharged home today. She will resume her medications including Brovana, clonidine, MiraLax. She is on Plavix 75 mg daily, Pletal 100 mg twice a day, Procardia 90 mg daily, Protonix, levothyroxine, labetalol, and Xanax. The patient will follow up with Dr. Blanton as outpatient and I will follow her as an outpatient. Brittany Coffman MD
== END 2017-08-24 22:53 | disposition home or self-care (01) | DRG 291 ==
LOC: ED 00:06 → ERH 02:39 → 2RSO 08:40 → OBSVTOIN 08-21 13:27 → 5RNO 08-23 13:02
PROVIDERS: ADMIT Internal Medicine; ATTEND Internal Medicine
PROC: 5A09457 Assistance with Respiratory Ventilation, 24-96 Consecutive Hours, Continuous Positive Airway Pressure (ICD-10-PCS; principal; 2017-08-20)
PROC: 3E0F7GC Introduction of Other Therapeutic Substance into Respiratory Tract, Via Natural or Artificial Opening (ICD-10-PCS; 2017-08-22)
DX: I13.2 Hypertensive heart and chronic kidney disease with heart failure and with stage 5 chronic kidney disease, or end stage renal disease (principal); I50.33 Acute on chronic diastolic (congestive) heart failure; N18.6 End stage renal disease; J96.91 Respiratory failure, unspecified with hypoxia; E11.51 Type 2 diabetes mellitus with diabetic peripheral angiopathy without gangrene; E11.22 Type 2 diabetes mellitus with diabetic chronic kidney disease; I27.20 Pulmonary hypertension, unspecified; E83.59 Other disorders of calcium metabolism; N25.81 Secondary hyperparathyroidism of renal origin; L97.919 Non-pressure chronic ulcer of unspecified part of right lower leg with unspecified severity; J44.1 Chronic obstructive pulmonary disease with (acute) exacerbation; I31.3 Pericardial effusion (noninflammatory); I25.10 Atherosclerotic heart disease of native coronary artery without angina pectoris; E03.9 Hypothyroidism, unspecified; Z99.2 Dependence on renal dialysis; F41.9 Anxiety disorder, unspecified; D63.1 Anemia in chronic kidney disease; I25.2 Old myocardial infarction; I42.9 Cardiomyopathy, unspecified; E78.5 Hyperlipidemia, unspecified; K59.03 Drug induced constipation; T40.605A Adverse effect of unspecified narcotics, initial encounter; K59.09 Other constipation; G47.30 Sleep apnea, unspecified; F17.210 Nicotine dependence, cigarettes, uncomplicated; Z95.5 Presence of coronary angioplasty implant and graft

== ENCOUNTER 2017-08-28 04:53 | Inpatient (IN) | payer MEDICARE, OTHER ==
--- NOTE | 2017-08-28 05:25 | ED PDOC ---
Arrival/HPI - General Chief Complaint: Shortness Of Breath Time Seen by Provider: 08/28/17 05:24 Historian: Patient - History of Present Illness Narrative History of Present Illness (Text): 08/28/17 05:25 A 57 year old female, whose past medical history includes uncontrolled hypertension, chronic obstructive pulmonary disease, pulmonary hypertension, CAD with coronary stent, hypothyroidism, ESRD, and chronic anemia, who presents to the emergency department complaining of shortness of breath that began today. Patient reports she missed her dialysis treatment yesterday due to having a different doctor appointment. Patient denies any fever, chills, chest pain, nausea, vomiting, diarrhea, urinary symptoms, back pain, neck pain, headache, dizziness, or any other complaints. PMD: Dr. Coffman Time/Duration: Other (Today) Symptom Onset: Gradual Symptom Course: Unchanged Activities at Onset: Light Context: Home Past Medical History - Provider Review Nursing Documentation Reviewed: Yes - Infectious Disease Hx of Infectious Diseases: None - Tetanus Immunization Tetanus Immunization: Unknown - Cardiac Hx Congestive Heart Failure: Yes Hx KS: Yes Hx Hypertension: Yes Hx Peripheral Vascular Disease: Yes - Pulmonary Hx Chronic Obstructive Pulmonary Disease (COPD): Yes - Neurological HX Cerebrovascular Accident: Yes - HEENT Hx HEENT Disorder: Yes (hard of hearing) Hx Blind: No Hx Cataracts: No Hx Deafness: No Hx Difficulty Chewing: No Hx Epistaxis: No Hx Glaucoma: No Hx Macular Degeneration: No - Renal Date of Last Dialysis Treatment: 08/20/17 - Endocrine/Metabolic Hx Hypothyroidism: Yes - Hematological/Oncological Hx Blood Disorders: Yes Hx AIDS: No Hx Anemia: Yes Hx Cancer: No Hx Chemotherapy: No Hx Cirrhosis: No Hx Hemophilia: No Hx Hepatitis A: No Hx Hepatitis B: No Hx Hepatitis C: No Hx Metastasis: No Hx Shingles: No Hx Sickle Cell Disease: No Hx Unexplained Bleeding: No - Integumentary Hx Dermatological Disorder: No Hx Basal Cell Carcinoma: No Hx Eczema: No Hx Melanoma: No Hx Psoriasis: No Hx Squamous Cell Carcinoma: No - Musculoskeletal/Rheumatological Hx Falls: Yes - Gastrointestinal Hx Gastrointestinal Disorders: Yes (FECAL IMPACTION,CONSTIPATION,POOR APPETITE, GASTRITIS) - Genitourinary/Gynecological Hx Genitourinary Disorders: No Hx Reproductive Disorders: No - Psychiatric Hx Psychophysiologic Disorder: Yes Hx Anxiety: Yes Hx Bipolar Disorder: No Hx Depression: No Hx Emotional Abuse: No Hx Hallucinations: No Hx Panic Disorder: No Hx Post Traumatic Stress Disorder: No Hx Psychosis: No Hx Physical Abuse: No Hx Schizophrenia: No Hx Sexual Abuse: No Hx Substance Use: No - Past Surgical History Past Surgical History: Unable to Obtain - Surgical History Hx Amputation: No Hx Appendectomy: No Hx Cardiac Catheterization: Yes Hx Cholecystectomy: No Hx Coronary Stent: Yes Hx Gastric Bypass Surgery: No Hx Hysterectomy: No Hx Joint Replacement: No Hx Kidney Transplant: No Hx Liver Transplant: No Hx Mastectomy: No Hx Musculoskeletal Surgery: No Hx Open Heart Surgery: No Hx Orthopedic Surgery: No Hx Splenectomy: No Hx Valve Replacement: No - Anesthesia Hx Anesthesia: Yes Hx Anesthesia Reactions: No Hx Malignant Hyperthermia: No - Suicidal Assessment Feels Threatened In Home Enviroment: No Family/Social History - Physician Review Nursing Documentation Reviewed: Yes Family/Social History: No Known Family HX Smoking Status: Light Smoker < 10 Cigarettes Daily Hx Alcohol Use: No Hx Substance Use: No Hx Substance Use Treatment: No Allergies/Home Meds Allergies/Adverse Reactions: Allergies ciprofloxacin Allergy (Verified 08/28/17 07:28) RASH hydralazine Allergy (Verified 08/28/17 07:28) RASH vancomycin Allergy (Verified 08/28/17 07:28) SHORTNESS OF BREATH ct dye Allergy (Uncoded 08/28/17 07:28) RASH Home Medications: Home Meds Medication Instructions Recorded Confirmed cloNIDine [Catapres] 0.2 mg PO PRN PRN 06/04/16 08/28/17 Labetalol [Trandate] 300 mg PO Q8 08/20/17 08/28/17 NIFEdipine ER [Procardia XL] 90 mg PO DAILY 08/20/17 08/28/17 Lisinopril [Zestril] 40 mg PO ONCE 08/28/17 08/28/17 Metoprolol Tartrate [Lopressor] 100 mg PO ONCE 08/28/17 08/28/17 Review of Systems - Physician Review All systems were reviewed & negative as marked: Yes - Review of Systems Constitutional: absent: Fevers, Other (Chills) Respiratory: SOB Cardiovascular: absent: Chest Pain Gastrointestinal: absent: Diarrhea, Nausea, Vomiting Genitourinary Female: absent: Dysuria, Frequency, Hematuria Musculoskeletal: absent: Back Pain, Neck Pain Neurological: absent: Headache, Dizziness Physical Exam Vital Signs Reviewed: Yes Vital Signs Temp Pulse Resp BP Pulse Ox 08/28/17 06:05 97.9 F 109 H 19 210/99 H 100 08/28/17 05:30 20 100 Temperature: Afebrile Blood Pressure: Hypertensive Pulse: Tachycardic Respiratory Rate: Normal Appearance: Positive for: Well-Appearing, Non-Toxic, Comfortable Pain Distress: None Mental Status: Positive for: Alert and Oriented X 3 - Systems Exam Head: Present: Atraumatic, Normocephalic Pupils: Present: PERRL Extroacular Muscles: Present: EOMI Conjunctiva: Present: Normal Mouth: Present: Moist Mucous Membranes Neck: Present: Normal Range of Motion Respiratory/Chest: Present: Clear to Auscultation, Good Air Exchange, Accessory Muscle Use. No: Respiratory Distress Cardiovascular: Present: Regular Rate and Rhythm, Normal S1, S2. No: Murmurs Abdomen: Present: Normal Bowel Sounds. No: Tenderness, Distention, Peritoneal Signs Back: Present: Normal Inspection Upper Extremity: Present: Normal Inspection. No: Cyanosis, Edema Lower Extremity: Present: Normal Inspection. No: Edema Neurological: Present: GCS=15, CN II-XII Intact, Speech Normal Skin: Present: Warm, Dry, Normal Color. No: Rashes Psychiatric: Present: Alert, Oriented x 3, Normal Insight, Normal Concentration Medical Decision Making ED Course and Treatment: 08/28/17 05:25 Impression: 57 year old female presents complaining of shortness of breath that began yesterday after missing her dialysis treatment. Patient is known for missing her treatments. Plan: -- EKG -- Labs -- Chest X-ray -- Aspirin -- Plavix -- Urinalysis -- O2 Nasal Cannula -- Reassess and disposition Prior Visits: Notes and results from previous visits were reviewed. Patient was last seen in the emergency department on 08/20/17 presents complaining of worsening shortness of breath that began yesterday. Patient was admitted. Progress Notes: 08/28/17 07:27 ECG NSR bnp 17,500 trop 0.08 indeterminate asa, plavix given as pt home meds lasix bipap cxr vascular congestion signed out to day shift ed physician to fu cbc and disposition admission for fluid overload. 08/28/17 08:33 d/w Dr. coffman who will admit pt for hd and stated to call dr. chris to arrange hd and dr. aries godoy. pt to get line, cbc, coags. - Lab Interpretations Lab Results: 08/28/17 05:30 Lab Results 08/28/17 05:30: Sodium 140, Potassium 5.4 H, Chloride 99, Carbon Dioxide 27, Anion Gap 20, BUN 54 H, Creatinine 7.5 H* D, Est GFR ( Amer) 7, Est GFR ( Non-Af Amer) 6, Random Glucose 90, Calcium 10.0, Magnesium 2.2, Total Bilirubin 0.6, AST 39 H, ALT 31, Alkaline Phosphatase 126 D, Lactate Dehydrogenase 750 H , Total Creatine Kinase 51, Troponin I 0.08 D, NT-Pro-B Natriuret Pep > [id number] H, Total Protein 7.0, Albumin 4.1, Globulin 2.8, Albumin/Globulin Ratio 1.5 I have reviewed the lab results: Yes - RAD Interpretation Radiology Orders: 08/28/17 05:34 CHEST PORTABLE [RAD] Stat - EKG Interpretation Interpreted by ED Physician: Yes (NSR) Type: 12 lead EKG Comparison: Similar to previous EKG (08/20/17) - Medication Orders Current Medication Orders: Discontinued Medications Aspirin (Aspirin) 325 mg PO STAT STA Stop: 08/28/17 05:35 Last Admin: 08/28/17 06:04 Dose: 325 mg Clopidogrel Bisulfate (Plavix) 75 mg PO STAT STA Stop: 08/28/17 05:35 Last Admin: 08/28/17 06:04 Dose: 75 mg Furosemide (Lasix) 40 mg IVP STAT STA Stop: 08/28/17 07:26 - Scribe Statement The provider has reviewed the documentation as recorded by the Jayleen Richey Provider Scribe Attestation: All medical record entries made by the Jayleen were at my direction and personally dictated by me. I have reviewed the chart and agree that the record accurately reflects my personal performance of the history, physical exam, medical decision making, and the department course for this patient. I have also personally directed, reviewed, and agree with the discharge instructions and disposition. Disposition/Present on Arrival - Present on Arrival Any Indicators Present on Arrival: No History of DVT/PE: Yes History of Uncontrolled Diabetes: No Urinary Catheter: No History of Decub. Ulcer: No History Surgical Site Infection Following: None - Disposition Have Diagnosis and Disposition been Completed?: Yes Diagnosis: CHF exacerbation, Fluid overload Disposition: HOSPITALIZED Disposition Time: 08:34 Patient Plan: Admission, Telemetry Condition: STABLE Discharge Instructions (ExitCare): Heart Failure (ED) Referrals: Brittany Coffman MD [Primary Care Provider] - Follow up with primary Forms: [employer] (Chinese)
[2017-08-28 06:27] LABS: TROPONIN I 0.08 ng/mL
[2017-08-28 06:43] LABS: ALB/GLOB RATIO 1.5 (1.1-1.8); ALKALINE PHOSPHATASE 126 U/L (38-126); ALT/SGPT 31 U/L (7-56); AST/SGOT 39 U/L (14-36); BILIRUBIN,TOTAL 0.6 mg/dL (0.2-1.3); BLOOD UREA NITROGEN 54 mg/dL (7-21); CARBON DIOXIDE 27 mmol/L (21-33); CHLORIDE 99 mmol/L (98-107); GFR AFRICAN-AMERICAN 7; GLUCOSE,RANDOM 90 mg/dL (70-110); MAGNESIUM 2.2 mg/dL (1.7-2.2); POTASSIUM 5.4 mmol/L (3.6-5.0); SODIUM 140 mmol/L (132-148)
[2017-08-28 09:08] LABS: BASO # 0.06 K/mm3 (0.0-2.0); BASO % 0.9 % (0.0-3.0); EOS # 0.2 (0.0-0.7); EOS % 2.5 % (1.5-5.0); GRAN # 4.7 (1.4-6.5); GRAN % 68.3 % (50.0-68.0); HEMATOCRIT 33.5 % (36.0-48.0); LYMPH # 1.5 (1.2-3.4); LYMPH % 21.9 % (22.0-35.0); MEAN CELL VOLUME 95.4 fl (80.0-105.0); MEAN CORPUSCULAR HEMOGLOBIN 28.8 pg (25.0-35.0); MEAN CORPUSCULAR HGB CONC 30.1 g/dl (31.0-37.0); MONO # 0.4 (0.1-0.6); MONO % 6.4 % (1.0-6.0); RED CELL DISTRIBUTION WIDTH 15.1 % (11.5-14.5); WHITE BLOOD COUNT 6.9 10^3/ul (4.5-11.0)
--- NOTE | 2017-08-28 09:25 | RAD ---
HISTORY: 57yoF, sob COMPARISON: Chest radiograph dated 08/20/2017 FINDINGS: LUNGS: Pulmonary vascular congestion, grossly stable. Right basilar atelectasis. PLEURA: Small right pleural effusion. Trace left pleural effusion. No pneumothorax apparent. CARDIOVASCULAR: Atherosclerotic aortic calcifications. Cardiomediastinal silhouette stably enlarged. OSSEOUS STRUCTURES: Unchanged. VISUALIZED UPPER ABDOMEN: Normal. OTHER FINDINGS: Right internal jugular access tunneled hemodialysis catheter, unchanged. Right upper extremity vascular stent and surgical clips, unchanged. IMPRESSION: Grossly stable pulmonary vascular congestion, small right and trace left pleural effusions.
[2017-08-28] MEDS ORDERED: Non Formulary Medication (Metoprolol Tartrate [Lopressor] 100 MG) PO SCH (10:00)
[2017-08-28] MEDS: Levothyroxine 75 MCG TAB PO SCH (10:17)
[2017-08-28] MEDS: NIFEdipine 90 mg ER Tab PO SCH (10:18)
--- NOTE | 2017-08-28 10:34 | CARD ---
APPROVED REPORT EKG Measurement Heart [id number] <Conclusion> Normal sinus rhythm Possible Left atrial enlargement Left ventricular hypertrophy with repolarization abnormality Prolonged QT No change
[2017-08-28 14:08] VITALS: BMI 22.0
[2017-08-28] MEDS: Oxycodone/Acetaminophen 10/325 mg Tab PO PRN ×2 (14:48→21:36)
[2017-08-28] MEDS ORDERED: NIFEdipine 90 mg ER Tab PO STA (17:34)
--- NOTE | 2017-08-28 20:54 | HP ---
HISTORY OF PRESENT ILLNESS: Patient is 57 years old came to Emergency Room because of increasing shortness of breath. Patient missed dialysis. This morning, woke up and could not catch her breath. Her family called ambulance, and she was brought to Emergency Room. Denies any fevers or chills. No history of nausea or vomiting. Does complain of chest discomfort and shortness of breath. PAST MEDICAL HISTORY: She has significant past medical history for: 1. Uncontrolled hypertension. 2. COPD. 3. Pulmonary hypertension. 4. Coronary artery disease with angioplasty. 5. Hypothyroidism. 6. End-stage renal disease, on hemodialysis. 7. Chronic anemia. 8. Carotid stenting. 9. Recent bilateral extremity bypass and she has painful ischemic ulcer on her right francis. ALLERGIES: SHE IS ALLERGIC TO HYDRALAZINE, VANCOMYCIN, AND IV CONTRAST DYE. MEDICATIONS AT HOME: She is on lisinopril 40 mg daily, metoprolol 100 mg daily, clonidine 0.2 b.i.d., nifedipine ER 90 mg daily, levothyroxine 75 mcg daily, labetalol 300 q. 8, and Plavix. SOCIAL HISTORY: She lives with her son, active smoker. Denies alcohol use. PHYSICAL EXAMINATION GENERAL: She is awake, alert, oriented. After dialysis, shortness of breath is better. VITAL SIGNS: She is afebrile. Pulse 87, respirations 22, blood pressure 181/78. LUNGS: Bilateral fair airflow. No rhonchi or crackle. HEART: S1 and S2 audible. ABDOMEN: Soft, nontender. No rebound. No guarding. NEUROLOGIC: The patient is awake, alert. EXTREMITIES: Right leg, she has painful ischemic ulcer. LABORATORY EXAMINATION: WBC 6.9, hemoglobin 10, hematocrit 33.5, platelets 360. Chemistry, sodium 140, potassium 5.1, chloride 99, CO2 of 27, BUN 54, creatinine 7.3. Blood sugar of 90. ASSESSMENT AND PLAN: Fluid overload. Patient is receiving emergent dialysis. We will resume her medication. Local wound care. We will reevaluate patient in a.m. and if she is stable, will be discharged in a.m. Brittany Coffman MD
--- NOTE | 2017-08-29 00:28 | CON ---
DATE: 08/28/2017 REASON FOR CONSULTATION: Shortness of breath, elevated BNP, severe hypertension. HISTORY OF PRESENT ILLNESS: A 57-year-old lady known to me from outpatient hemodialysis was brought to the emergency room early this morning because she missed her dialysis treatment yesterday. She was complaining of severe shortness of breath. Her blood pressure was found to be 240/111. She was also found to be hypoxic. Her BNP was found to be greater than 175,000. Potassium was 5.4. The patient reports that she missed her dialysis yesterday because she had an appointment with her vascular doctor in [place]. The patient was sent for urgent dialysis. She is currently seen post dialysis treatment. She still has some shortness of breath. PAST MEDICAL AND SURGICAL HISTORY: Severe hypertension, peripheral vascular disease, end-stage renal disease, anemia of chronic kidney disease, COPD, pulmonary hypertension, CAD. FAMILY HISTORY: Hypertension. SOCIAL HISTORY: Ex-smoker, no alcohol use, no IV drug abuse. ALLERGIES: CIPROFLOXACIN, HYDRALAZINE, AND VANCOMYCIN. CURRENT MEDICATIONS: Zestril 40 mg daily, Lopressor 100, Catapres 0.2, nifedipine 90, Synthroid 75, labetalol 300 q. 8 h., Plavix 75. REVIEW OF SYSTEMS: The patient denies any fever, chills. She complains of pain in her right leg. She denies any abdominal pain. She denies any nausea, vomiting. She complains of shortness of breath. The rest unremarkable. PHYSICAL EXAMINATION: GENERAL: Middle-aged lady sitting in bed. VITAL SIGNS: Blood pressure 181/78, heart rate 87, respiratory rate 22, temperature 97.9. HEENT: Normocephalic, atraumatic, positive pallor. NECK: Supple, no JVD. LUNGS: Bilateral equal air entry, bilateral distant breath sounds, no rales. CARDIAC: S1 and S2. Regular rate and rhythm, positive murmur, no rub. ABDOMEN: Soft, nondistended, nontender, bowel sounds present. EXTREMITIES: Dressing of the right lower leg, dressing of the left foot. INTAKE AND OUTPUT: Not charted. LABORATORY DATA: WBC 6.9, hemoglobin 10, hematocrit 33.5, platelets 317. Sodium 140, potassium 5.4, chloride 99, CO2 of 27, BUN 54, creatinine 7.5, glucose 90, calcium 10.0, phosphorus 6.7 magnesium 2.2, AST 39, ALT 31, troponin 0.08. BNP greater than 175,000, albumin 4. Chest x-ray some increased vascular markings. ASSESSMENT: 1. Hypertensive emergency. 2. Shortness of breath, elevated BNP. 3. Pulmonary hypertension. 4. Chronic obstructive pulmonary disease. 5. End-stage renal disease. 6. Anemia of chronic kidney disease. 7. Severe peripheral vascular disease. PLAN: 1. The patient had dialysis today. May require dialysis again tomorrow. 2. Recent echocardiogram shows normal ventricular function with severe concentric left ventricular hypertrophy. 3. Continue outpatient antihypertensive regimen. 4. Add Xanax 0.25 mg q. 8 hours p.r.n. Thank you for the courtesy of this consultation. We will follow this patient with you. Tamanna Smith MD
[2017-08-29] MEDS: Oxycodone/Acetaminophen 10/325 mg Tab PO PRN ×2 (04:31→10:35)
[2017-08-29] MEDS: Multivitamin Vitamin B Complex (Nephro-Vite) Tab PO SCH (07:22)
[2017-08-29 09:08] VITALS: RESP 18
[2017-08-29] MEDS: NIFEdipine 90 mg ER Tab PO SCH (09:19)
[2017-08-29] MEDS: Levothyroxine 75 MCG TAB PO SCH (09:19)
--- NOTE | 2017-08-29 10:26 | CP.PCM.CON ---
<Richelle Bains - Last Filed: 08/29/17 10:19> History of Present Illness - History of Present Illness History of Present Illness: Podiatry Consult Note - Dr. Forte 57 year old seen and evaluated at bedside with attending, Dr. Forte, for right lower leg ulceration. Patient hemodynamically stable and NAD. Of note, patient was last admitted 08/20/17-08/24/17 for increasing SOB and chest discomfort; patient was seen by podiatry for local wound care. Patient states the dressing to her right lower leg has been present for the past few days. Patient complaints of continued severe pain to her wound, and is apprehensive for dressing change. Patient states towards the end of her admission she believed her wound had been improving. No other pedal complaints at this time. Patient denies any current N/V/F/D/C. No shortness of breath currently. Review of Systems - Review of Systems All systems: reviewed and no additional remarkable complaints except (as per HPI ) Past Patient History - Infectious Disease Hx of Infectious Diseases: None - Tetanus Immunizations Tetanus Immunization: Unknown - Past Social History Smoking Status: Light Smoker < 10 Cigarettes Daily - CARDIAC Hx Congestive Heart Failure: Yes Hx Hypertension: Yes - PULMONARY Hx Respiratory Disorders: Yes Hx Asthma: Yes Hx Chronic Obstructive Pulmonary Disease (COPD): Yes - NEUROLOGICAL HX Cerebrovascular Accident: Yes - HEENT Hx HEENT Problems: Yes (hard of hearing) Hx Blind: No Hx Cataracts: No Hx Deafness: No Hx Difficulty Chewing: No Hx Epistaxis: No Hx Glaucoma: No Hx Macular Degeneration: No - RENAL Hx Chronic Kidney Disease: Yes Hx Dialysis: Yes Hx Renal (Kidney) Cancer: Yes - ENDOCRINE/METABOLIC Hx Hypothyroidism: Yes - HEMATOLOGICAL/ONCOLOGICAL Hx Anemia: Yes - INTEGUMENTARY Hx Dermatological Problems: No Hx Basil Cell: No Hx Eczema: No Hx Melanoma: No Hx Psoriasis: No Hx Squamous Cell: No - MUSCULOSKELETAL/RHEUMATOLOGICAL Hx Falls: Yes Hx Unsteady Gait: Yes - GASTROINTESTINAL Hx Gastrointestinal Disorders: Yes (FECAL IMPACTION,CONSTIPATION,POOR APPETITE, GASTRITIS) - GENITOURINARY/GYNECOLOGICAL Hx Genitourinary Disorders: No Hx Reproductive Disorders: No - PSYCHIATRIC Hx Substance Use: No - SURGICAL HISTORY Hx Amputation: No Hx Appendectomy: No Hx Cardiac Catheterization: Yes Hx Cholecystectomy: No Hx Coronary Stent: Yes Hx Gastric Bypass Surgery: No Hx Hysterectomy: No Hx Joint Replacement: No Hx Kidney Transplant: No Hx Liver Transplant: No Hx Mastectomy: No Hx Musculoskeletal Surgery: No Hx Open Heart Surgery: No Hx Orthopedic Surgery: No Hx Splenectomy: No Hx Valve Replacement: No - ANESTHESIA Hx Anesthesia: Yes Hx Anesthesia Reactions: No Hx Malignant Hyperthermia: No Meds Allergies/Adverse Reactions: Allergies Allergy/AdvReac Type Severity Reaction Status Date / Time ciprofloxacin Allergy RASH Verified 08/28/17 07:28 hydralazine Allergy RASH Verified 08/28/17 07:28 vancomycin Allergy SHORTNESS Verified 08/28/17 07:[address] dye Allergy RASH Uncoded 08/28/17 07:28 - Medications Medications: Current Medications Clonidine HCl (Catapres) 0.2 mg PO BID PRN PRN Reason: Systolic Blood Pressure Last Admin: 08/28/17 14:48 Dose: 0.2 mg Clopidogrel Bisulfate (Plavix) 75 mg PO DAILY [facility] Last Admin: 08/29/17 09:19 Dose: 75 mg Labetalol HCl (Trandate) 300 mg PO Q8 [facility] Last Admin: 08/28/17 14:40 Dose: Not Given Levothyroxine Sodium (Synthroid) 75 mcg PO DAILY [facility] Last Admin: 08/29/17 09:19 Dose: 75 mcg Metoprolol Tartrate (Lopressor) 100 mg PO DAILY [facility] Last Admin: 08/29/17 09:19 Dose: 100 mg Nifedipine (Procardia Xl) 90 mg PO DAILY [facility] Last Admin: 08/29/17 09:19 Dose: 90 mg Oxycodone/Acetaminophen (Percocet 10/325 Mg Tab) 1 tab PO Q6H PRN PRN Reason: Pain, moderate (4-7) Last Admin: 08/29/17 04:31 Dose: 1 tab Vitamin B Complex/Vit C/Folic Acid (Nephro-Tor) 1 tab PO 0800 [facility] Last Admin: 08/29/17 07:22 Dose: 1 tab Physical Exam - Constitutional Appears: Well, Non-toxic, No Acute Distress - Extremities Exam Additional comments: VASC: DP pulses weakly palpable 1/4 b/l. PT pulses nonpalpable b/l. Temperature gradient cool to cool b/l. No edema noted. CFT WNL. NEURO: Hypersensitivity to bilateral lower extremities, R>L DERM: Ulceration noted to medial aspect of right calf, measuring approximately 5 x 3 x 0.2 cm with 75% granular and 25% fibrotic base and mild erythema periwound. Small satellite lesion proximal to ulcer #1 measuring approximately 0.5 x 1 x 0.1 cm also with a mixed fibrogranular base and erythema periwound. No necrosis noted to either wound. Nails 1-10 are thickened and dystrophic with subungual debris and hypertrophy. 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 Forte Chart, labs and vitals reviewed: afebrile, no leukocytosis WBC 6.9 Wound cleansed with saline and dressed with Xeroform, DSD -Santyl and 2% lidocaine jelly ordered for QD dressing changes -1mg IV Dilaudid for dressing changes Ulcer prognosis is guarded Right leg wound cx from previous admission 08/20/17: + pseudomonas (heavy growth ) -New WCx obtained Podiatry will continue to follow patient while in house <Dougie Forte - Last Filed: 09/02/17 08:26> Results - Vital Signs Recent Vital Signs: Last Vital Signs Temp 98 F 08/30/17 17:50 Pulse 79 08/30/17 17:50 Resp 18 08/30/17 17:50 BP 187/77 H 08/30/17 17:50 Pulse Ox 99 08/30/17 09:00 - Labs Result Diagrams: 08/28/17 08:55 08/28/17 05:30 Attending/Attestation - Attestation I have personally seen and examined this patient.: Yes I have fully participated in the care of the patient.: Yes I have reviewed all pertinent clinical information: Yes
[2017-08-29] MEDS ORDERED: Lidocaine 2% Jelly (Uro-Jet) TOP ONE (10:32)
[2017-08-29] MEDS: Collagenase 250 Units/gm Ointment(30 gm) TOP SCH (11:21)
[2017-08-29] MEDS ORDERED: Doxercalciferol 4 mcg/2 ml Inj IVP SCH (15:00)
--- NOTE | 2017-08-29 17:31 | PN ---
SUBJECTIVE: The patient currently is more comfortable. She is sitting up in bed on telemetry. She states that she would like to go home for the holiday. She knows that she is scheduled for dialysis again tomorrow a day earlier than her Thursday schedule because of the holiday. The patient states her shortness of breath has improved. Her blood pressure control has also improved. MEDICATIONS: Medication list reviewed. The patient is currently on clonidine p.r.n., Lopressor, Nephro-Tor, p.r.n. Percocet, Plavix, Procardia, Santyl, Synthroid, and Trandate which is currently on hold. The patient had been on lisinopril in the outpatient setting also for blood pressure control. OBJECTIVE: INTAKE/OUTPUT: Intake is 600, output 2500 with dialysis. VITAL SIGNS: Blood pressure 160/74, temperature 98.4, respiratory rate 18 with a pulse of 77. HEENT: Shows her be normocephalic, atraumatic. Conjunctiva are pale. Sclerae are nonicteric. NECK: Supple. No neck vein distention. CHEST: Clear to auscultation and percussion with scattered rhonchi. Positive PermCath, right chest wall. CARDIAC: S1, S2 were normal. Positive holosystolic murmur, left lower sternal border. No rub. No S3. No S4. ABDOMEN: Soft. Bowel sounds normal. No rebound, guarding or masses. EXTREMITIES: She has a dressing over her right lower leg covering an ulcer. No dressing on her left leg. Diminished lower extremity pulses bilaterally. No edema. No cyanosis or clubbing. LABORATORY DATA AND IMAGING STUDIES: Admitting chest x-ray showed pulmonary vascular congestion. Labs; CBC; white blood cell count 6.9, hemoglobin 10.1, platelet count is 316,000. Chemistries; potassium 5.4 predialysis yesterday. Otherwise electrolytes normal. BUN 34, creatinine of 7.5, calcium 10.0 with a phosphorus of 6.7. LDH elevated at 750. BNP is greater than 175,000 with an albumin of 4.1. ASSESSMENT AND PLAN: 1. End-stage renal disease. The patient will continue dialysis as per her outpatient schedule. The patient has returned back to the [facility] to receive dialysis therapy. She will be scheduled for dialysis tomorrow instead of Thursday because of the holiday. This can occur either as an inpatient or an outpatient. 2. Status post severe shortness of breath with elevated BNP and congestive heart failure. With ultrafiltration 2.5 kg, the patient appears to be more comfortable. I do not believe that she requires dialysis again today, in which case she would have a 3 days in a row. 3. History of pulmonary hypertension. This is stable. 4. History of chronic obstructive pulmonary disease, stable. 5. Anemia secondary to chronic kidney disease. The patient's hemoglobin is acceptable on the 10-11 range. She received Aranesp and iron as per protocol and dialysis. 6. History of severe peripheral vascular disease. She is status post vascular bypass of her lower extremity. She currently has a poorly healing ulcer of her right lower extremity. She states that she might be a candidate for amputation of her right leg if this also does not heal. 7. History of secondary hyperparathyroidism. The patient will continue a renal diet. The patient will continue binder therapy. 8. History of hypertension. The patient may be restarted back on lisinopril and labetalol. She should continue taking Procardia and she may use clonidine on a p.r.n. basis. I do not think that she needs both Lopressor and Trandate. Sampson Hutchins MD
[2017-08-29] MEDS: oxyCODONE 10 mg Immediate Release Tab PO PRN (18:17)
--- NOTE | 2017-08-29 19:43 | PN ---
DATE: SUBJECTIVE: The patient is a 57-year-old, seen and examined, states she feels little better, less shortness of breath after she received her dialysis, complaint of right francis pain. PHYSICAL EXAMINATION VITAL SIGNS: She is afebrile, pulse 77, respirations 18, blood pressure 160/74. LUNGS: Bilateral good airflow. No rhonchi or crackle. HEART: S1, S2 audible. ABDOMEN: Soft, nontender. No rebound. No guarding. NEUROLOGIC: She is awake, alert, oriented, able to communicate. is in the dressing. LABORATORY DATA: WBC 6.9, hemoglobin 10, hematocrit 33.5, platelet of 316. Chemistry; sodium 140, potassium 5.4, chloride 99, CO2 27, BUN 54, creatinine 7.5, blood sugar of 90. ASSESSMENT: 1. Fluid overload. 2. End-stage renal disease, on hemodialysis. 3. Hypertension. 4. Hyperlipidemia. 5. Chronic anemia. 6. Questionable pulmonary hypertension. 7. Gastritis. 8. Status post right carotid angioplasty. 9. Bilateral leg history of bypass surgery. PLAN: We will continue the patient on current medication. Podiatry is taking care of her leg wound. The patient will receive dialysis tomorrow and will be discharge home in a.m. Brittany Coffman MD
[2017-08-30] MEDS: oxyCODONE 10 mg Immediate Release Tab PO PRN ×3 (00:22→12:00)
[2017-08-30] MEDS: Multivitamin Vitamin B Complex (Nephro-Vite) Tab PO SCH (07:55)
[2017-08-30] MEDS: Levothyroxine 75 MCG TAB PO SCH (09:25)
[2017-08-30] MEDS: NIFEdipine 90 mg ER Tab PO SCH (09:26)
[2017-08-30] MEDS: Collagenase 250 Units/gm Ointment(30 gm) TOP SCH (09:28)
[2017-08-30 10:52] VITALS: O2SAT 99
[2017-08-30] MEDS ORDERED: HYDROmorphone 1 mg/ml ISec IVP SCH (15:15)
[2017-08-30] MEDS ORDERED: HYDROmorphone 1 mg/ml ISec IVP ONE ×2 (16:00)
--- NOTE | 2017-08-30 17:02 | CP.PCM.PN ---
Subjective - Date & Time of Evaluation Date of Evaluation: 08/30/17 Time of Evaluation: 16:58 - Subjective Subjective: Podiatry Progress Note - Dr. Forte/Franny 57 year old seen and evaluated at bedside for right lower leg ulceration. Patient hemodynamically stable and NAD. Family present at bedside. Denies any acute events overnight. Admits to continued pain to right leg wound and states percocet has not provided any relief. Dressing clean/dry/intact. Patient aware she may be discharged today and is to follow up in the wound care center within 1 week of discharge. Admits to mild nausea currently. No SOB currently. Denies V /F/D/C. Objective - Vital Signs/Intake and Output Vital Signs (last 24 hours): Temp Pulse Resp BP Pulse Ox 98.5 F 74 18 190/76 H 99 08/30/17 11:56 08/30/17 14:00 08/30/17 11:56 08/30/17 12:01 08/30/17 09:00 Intake and Output: 08/30/17 08/30/17 06:59 18:59 Intake Total 300 Output Total 600 Balance -300 - Medications Medications: Current Medications Clonidine HCl (Catapres) 0.2 mg PO BID PRN PRN Reason: Systolic Blood Pressure Last Admin: 08/30/17 12:01 Dose: 0.2 mg Clopidogrel Bisulfate (Plavix) 75 mg PO DAILY [facility] Last Admin: 08/30/17 09:26 Dose: 75 mg Collagenase (Santyl) 0 gm TOP DAILY [facility] Last Admin: 08/30/17 09:28 Dose: Not Given Labetalol HCl (Trandate) 300 mg PO Q8 [facility] Last Admin: 08/28/17 14:40 Dose: Not Given Levothyroxine Sodium (Synthroid) 75 mcg PO DAILY [facility] Last Admin: 08/30/17 09:25 Dose: 75 mcg Metoprolol Tartrate (Lopressor) 100 mg PO DAILY [facility] Last Admin: 08/30/17 09:26 Dose: 100 mg Nifedipine (Procardia Xl) 90 mg PO DAILY [facility] Last Admin: 08/30/17 09:26 Dose: 90 mg Oxycodone HCl (Oxycodone Immediate Release Tab) 10 mg PO Q6H PRN PRN Reason: Pain, moderate (4-7) Last Admin: 08/30/17 12:00 Dose: 10 mg Sevelamer HCl (Renagel) 800 mg PO TID [facility] Last Admin: 08/30/17 14:14 Dose: 800 mg Vitamin B Complex/Vit C/Folic Acid (Nephro-Tor) 1 tab PO 0800 [facility] Last Admin: 08/30/17 07:55 Dose: 1 tab - Labs Labs: 08/28/17 08:55 - Constitutional Appears: Well, Non-toxic, No Acute Distress - Extremities Exam Additional comments: VASC: DP pulses weakly palpable 1/4 b/l. PT pulses nonpalpable b/l. Temperature gradient cool to cool b/l. No edema noted. CFT WNL. NEURO: Hypersensitivity to bilateral lower extremities, R>L DERM: Ulceration noted to medial aspect of right calf, measuring approximately 5 x 3 x 0.2 cm with 75% granular and 25% fibrotic base and mild erythema periwound. Small satellite lesion proximal to ulcer #1 measuring approximately 0.5 x 1 x 0.1 cm also with a mixed fibrogranular base and erythema periwound. Second satellite lesion posterior to ulcer #1 measuring approximately 0.5 x 0.5 x 0.1 cm with a fibrous base and erythema periwound. No necrosis noted to woudns. Nails 1-10 are thickened and dystrophic with subungual debris and hypertrophy. 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 Blanton Wound cleansed with saline, Santyl + Lidocaine jelly applied to wound beds, and dressed with adaptic DSD -1mg IV Dilaudid for dressing changes Ulcer prognosis is guarded Right leg wound cx from previous admission 08/20/17: + pseudomonas (heavy growth ) -New WCx obtained yesterday 08/29 reveals growth of corynebacterium and gram negative cora, f/u final report Advised patient to follow up in wound care center within 1 week of discharge for outpatient care Podiatry will continue to follow patient while in house
--- NOTE | 2017-08-30 17:17 | PN ---
DATE: SUBJECTIVE: The patient was taken down for dialysis yesterday by the charge nurse in the renal unit. Despite being told that she would have dialysis on Thursday today in order to not have any difficulty through the holiday. Yesterday's dialysis was done without authorization orders from her plaster helper. MEDICATIONS: Medication list reviewed. The patient is currently on clonidine, Hectorol, Lopressor, Nephro-Tor, oxycodone p.r.n., Plavix, Procardia, Renagel, Santyl, Synthroid, and Trandate which presently is on hold. OBJECTIVE: INTAKE/OUTPUT: Intake not charted. Output hemodialysis. VITAL SIGNS: Blood pressure is ranging from 171-190 systolic, diastolics ranging from 76-83. Temperature 98.5, respiratory rate is 18, pulse of 77. HEENT: Exam shows her be normocephalic, atraumatic. Conjunctivae are pale. Sclerae nonicteric. NECK: Supple. No neck vein distention. CHEST: Clear to auscultation and percussion with occasional rhonchi, scattered bilaterally. Positive PermCath, right chest wall. CARDIAC: Normal S1, S2. Holosystolic murmur, left lower sternal border. No rub. No S3. No S4. ABDOMEN: Soft. Bowel sounds normal. No rebound, guarding, or masses. EXTREMITIES: She has dressing over her right lower leg covering an ulceration. Diminished lower extremity pulses. LAB DATA AND IMAGING: No labs done yesterday with dialysis. Last CBC, hemoglobin 10.5. Last chemistries, potassium 5.4, BUN 54, creatinine of 7.5. Calcium is 10 with a phosphorus of 6.7. ASSESSMENT: 1. End-stage renal disease. The patient was taken down by the charge nurse yesterday for dialysis. Now, she will need to go today and the holiday without dialysis. The plan was for her to have dialysis on Thursday prior to being discharged so that she did not get into any difficulties with fluid overload over the holiday on 08/31/2017. I did emphasize the patient the need to significantly fluid restrict and to be careful with her diet in order not to have to return to the hospital on for dialysis. 2. Status post severe shortness of breath, elevated BNP and CHF. 3. History of pulmonary hypertension, stable. 4. History of chronic obstructive pulmonary disease, stable. 5. History of anemia secondary to chronic kidney disease. Hemoglobin is stable at 10-11 range. The patient will continue Aranesp and iron per protocol on dialysis. 6. History of severe peripheral vascular disease, status post vascular bypass of her lower extremity. She currently has a poorly healing ulcer of her right lower extremity. She states that she might require an amputation in the near future if this wound does not heal. 7. History of secondary hyperparathyroidism. The patient will continue renal diet and continue on binder therapy. 8. History of hypertension. The patient should restart back on Trandate as it is a better blood pressure lowering agent than Lopressor. She will continue Procardia, and she may continue using clonidine on an as-needed basis. The patient will likely be discharged home later today and again cautioned her to be very careful with her fluid restriction and dietary intake over the holiday. Sampson Hutchins MD
[2017-08-30 17:51] VITALS: BP 187/77; PULSE 79; TEMP 98
--- NOTE | 2017-08-31 02:55 | DS ---
HISTORY OF PRESENT ILLNESS: The patient is 57-year-old, seen and examined, seems to be comfortable, less shortness of breath, although she states she still has subjective feeling of being short of breath. No chest pain. No palpitation. Eating and tolerating. PHYSICAL EXAMINATION: VITAL SIGNS: She is afebrile. Pulse 77, respirations 18, blood pressure 171/83. LUNGS: Bilateral good airflow. No rhonchi or crackle. HEART: S1 and S2 audible. ABDOMEN: Soft, nontender. No rebound, no guarding. EXTREMITIES: She has dressing in the right francis. NEUROLOGIC: She is awake and alert, complaining of right knee pain. LABORATORY DATA: There is no new lab available today. ASSESSMENT: 1. Pulmonary edema secondary to missed dialysis. 2. End-stage renal disease, on hemodialysis. 3. Hypertension. 4. Hyperlipidemia. 5. Severe peripheral vascular disease. 6. Right francis ischemic ulcer. 7. Right carotid angioplasty. PLAN: The patient will be discharged today. She will resume her medications. She is advised to come for dialysis on Thursday. She is advised to follow up with Dr. Blanton for her Wound Care. Brittany Coffman MD
== END 2017-08-30 18:10 | disposition home or self-care (01) | DRG 291 ==
LOC: ED 04:53 → ERH 08:41 → UNDOADMIN 08:41 → ERH 08:46 → 2RSO 10:08
PROVIDERS: ADMIT Internal Medicine; ATTEND Internal Medicine
PROC: 5A1D70Z Performance of Urinary Filtration, Intermittent, Less than 6 Hours Per Day (ICD-10-PCS; principal; 2017-08-28)
DX: I13.2 Hypertensive heart and chronic kidney disease with heart failure and with stage 5 chronic kidney disease, or end stage renal disease (principal); I50.9 Heart failure, unspecified; Z91.15 Patient's noncompliance with renal dialysis; N18.6 End stage renal disease; Z99.2 Dependence on renal dialysis; I27.20 Pulmonary hypertension, unspecified; L97.919 Non-pressure chronic ulcer of unspecified part of right lower leg with unspecified severity; N25.81 Secondary hyperparathyroidism of renal origin; I16.1 Hypertensive emergency; E78.5 Hyperlipidemia, unspecified; I73.9 Peripheral vascular disease, unspecified; J44.9 Chronic obstructive pulmonary disease, unspecified; I25.10 Atherosclerotic heart disease of native coronary artery without angina pectoris; E03.9 Hypothyroidism, unspecified; R09.02 Hypoxemia; D63.1 Anemia in chronic kidney disease; K29.70 Gastritis, unspecified, without bleeding; H91.90 Unspecified hearing loss, unspecified ear; Z95.5 Presence of coronary angioplasty implant and graft; Z87.891 Personal history of nicotine dependence

== ENCOUNTER 2017-09-05 17:07 | Observation (INO) | payer MEDICARE ==
[2017-09-05 17:08] VITALS: BMI 22.0
--- NOTE | 2017-09-05 17:31 | ED PDOC ---
Arrival/HPI - General Chief Complaint: GI Problem Time Seen by Provider: 09/05/17 17:15 - History of Present Illness Narrative History of Present Illness (Text): 57F c/o persistent nausea, vomiting, abdominal pain for 3 days. she felt this way after dialysis and completed her session today before coming here. no exac or reliev fx. Past Medical History - Infectious Disease Hx of Infectious Diseases: None - Tetanus Immunization Tetanus Immunization: Unknown - Cardiac Hx Congestive Heart Failure: Yes Hx Hypertension: Yes - Pulmonary Hx Respiratory Disorders: Yes Hx Asthma: Yes Hx Chronic Obstructive Pulmonary Disease (COPD): Yes - Neurological HX Cerebrovascular Accident: Yes - HEENT Hx HEENT Disorder: Yes (hard of hearing) Hx Blind: No Hx Cataracts: No Hx Deafness: No Hx Difficulty Chewing: No Hx Epistaxis: No Hx Glaucoma: No Hx Macular Degeneration: No - Renal Hx Renal Disorder: Yes Hx Dialysis: Yes Hx Renal Cancer: Yes - Endocrine/Metabolic Hx Hypothyroidism: Yes - Hematological/Oncological Hx Anemia: Yes - Integumentary Hx Dermatological Disorder: No Hx Basal Cell Carcinoma: No Hx Eczema: No Hx Melanoma: No Hx Psoriasis: No Hx Squamous Cell Carcinoma: No - Musculoskeletal/Rheumatological Hx Falls: Yes Hx Unsteady Gait: Yes - Gastrointestinal Hx Gastrointestinal Disorders: Yes (FECAL IMPACTION,CONSTIPATION,POOR APPETITE, GASTRITIS) - Genitourinary/Gynecological Hx Genitourinary Disorders: No Hx Reproductive Disorders: No - Psychiatric Hx Psychophysiologic Disorder: Yes Hx Anxiety: Yes Hx Bipolar Disorder: No Hx Depression: No Hx Emotional Abuse: No Hx Hallucinations: No Hx Panic Disorder: No Hx Post Traumatic Stress Disorder: No Hx Psychosis: No Hx Physical Abuse: No Hx Schizophrenia: No Hx Sexual Abuse: No Hx Substance Use: No - Past Surgical History Past Surgical History: Unable to Obtain - Surgical History Hx Amputation: No Hx Appendectomy: No Hx Cardiac Catheterization: Yes Hx Cholecystectomy: No Hx Coronary Stent: Yes Hx Gastric Bypass Surgery: No Hx Hysterectomy: No Hx Joint Replacement: No Hx Kidney Transplant: No Hx Liver Transplant: No Hx Mastectomy: No Hx Musculoskeletal Surgery: No Hx Open Heart Surgery: No Hx Orthopedic Surgery: No Hx Splenectomy: No Hx Valve Replacement: No - Anesthesia Hx Anesthesia: Yes Hx Anesthesia Reactions: No Hx Malignant Hyperthermia: No - Suicidal Assessment Feels Threatened In Home Enviroment: No Family/Social History Family/Social History: Other Narrative Family History (Free Text): 12/30/17 17:29 nc Smoking Status: Light Smoker < 10 Cigarettes Daily Hx Alcohol Use: No Hx Substance Use: No Hx Substance Use Treatment: No Allergies/Home Meds Allergies/Adverse Reactions: Allergies ciprofloxacin Allergy (Verified 09/05/17 17:13) RASH hydralazine Allergy (Verified 09/05/17 17:13) RASH vancomycin Allergy (Verified 09/05/17 17:13) SHORTNESS OF BREATH ct dye Allergy (Uncoded 09/05/17 17:13) RASH Home Medications: Home Meds Medication Instructions Recorded Confirmed cloNIDine [Catapres] 0.2 mg PO PRN PRN 06/04/16 08/28/17 Labetalol [Trandate] 300 mg PO Q8 08/20/17 08/28/17 NIFEdipine ER [Procardia XL] 90 mg PO DAILY 08/20/17 08/28/17 Lisinopril [Zestril] 40 mg PO ONCE 08/28/17 08/28/17 Metoprolol Tartrate [Lopressor] 100 mg PO ONCE 08/28/17 08/28/17 Review of Systems - Physician Review All systems were reviewed & negative as marked: Yes - Review of Systems Constitutional: Fatigue. absent: Fevers Respiratory: absent: SOB, Cough Cardiovascular: Edema. absent: Chest Pain Gastrointestinal: Abdominal Pain, Nausea, Vomiting. absent: Diarrhea Skin: Skin Lesions (chronic wound RLE) Physical Exam Vital Signs Reviewed: Yes Appearance: Positive for: Non-Toxic, Other (chronically ill-appearing) Pain Distress: Mild Mental Status: Positive for: Alert and Oriented X 3 - Systems Exam Head: Present: Atraumatic Pupils: Present: PERRL Mouth: Present: Moist Mucous Membranes Neck: Present: Normal Range of Motion Respiratory/Chest: Present: Clear to Auscultation. No: Accessory Muscle Use Cardiovascular: Present: Regular Rate and Rhythm Abdomen: Present: Tenderness, Distention (mild, tympanitic). No: Peritoneal Signs, Rebound, Guarding Upper Extremity: Present: NORMAL PULSES Lower Extremity: Present: Edema Neurological: Present: GCS=15, Motor Func Grossly Intact, Normal Sensory Function, Other (no focal deficits) Skin: Present: Warm, Dry Psychiatric: Present: Alert, Oriented x 3 Medical Decision Making - RAD Interpretation Radiology Orders: 09/05/17 17:27 ABD & PELVIS W/O PO OR IV CONT [CT] Stat Disposition/Present on Arrival - Present on Arrival History of DVT/PE: Yes History of Uncontrolled Diabetes: No Urinary Catheter: No History of Decub. Ulcer: No History Surgical Site Infection Following: None - Disposition
[2017-09-05 17:50] LABS: BASO # 0.05 K/mm3 (0.0-2.0); BASO % 0.6 % (0.0-3.0); EOS # 0.1 (0.0-0.7); EOS % 0.9 % (1.5-5.0); GRAN # 6.41 (1.4-6.5); HEMOGLOBIN 10.5 g/dL (12.0-16.0); LYMPH # 1.5 (1.2-3.4); LYMPH % 16.9 % (22.0-35.0); MEAN CELL VOLUME 93.1 fl (80.0-105.0); MEAN CORPUSCULAR HEMOGLOBIN 27.8 pg (25.0-35.0); MEAN CORPUSCULAR HGB CONC 29.8 g/dl (31.0-37.0); MONO # 0.7 (0.1-0.6); MONO % 7.6 % (1.0-6.0); RBC 3.78 10^6/uL (3.5-6.1); RED CELL DISTRIBUTION WIDTH 14.6 % (11.5-14.5); WHITE BLOOD COUNT 8.7 10^3/ul (4.5-11.0)
[2017-09-05 18:11] LABS: TROPONIN I 0.06 ng/mL
[2017-09-05 18:33] LABS: VENOUS BLOOD GAS BASE EXCESS 5.2 mmol/L (0.0-2.0); VENOUS BLOOD GAS PO2 83 mm/Hg (30-55); VENOUS BLOOD PH 7.34 (7.32-7.43)
[2017-09-05 19:16] LABS: ALB/GLOB RATIO 1.4 (1.1-1.8); ALBUMIN 3.9 g/dL (3.0-4.8); CALCIUM 9.4 mg/dL (8.4-10.5)
--- NOTE | 2017-09-05 19:37 | ED PDOC ---
Physical Exam Vital Signs Temp Pulse Resp BP Pulse Ox 09/05/17 21:30 73 18 187/93 H 100 09/05/17 17:09 98.7 F 20 181/109 H 97 Medical Decision Making ED Course and Treatment: 09/05/17 19:35 The patient is a 57yearold female, whose past medical history includes hypertension, end stage renal disease, COPD, chronic anemia, carotid stents, and CAD with angioplasty, presents to the emergency department for complaints of nausea, vomiting, and abdominal discomfort, which began 3 days ago. The patient is endorsed over to me by Dr. Ashton. The patient is currently pending CT study of abdomen & pelvis. 09/05/17 22:02 CT Abdomen and Pelvis shows: Lower thorax: Scarring at the lung bases. Coronary artery and valvular calcification. Coronary artery calcification. Evidence of pericardial thickening. ABDOMEN: Liver: No acute abnormality as visualized. Gallbladder and bile ducts: Cholelithiasis. More sensitive evaluation of the biliary system can be performed with dedicated ultrasound as warranted. Pancreas: No acute abnormality as visualized. Spleen: No splenomegaly. Adrenals: No acute abnormality as visualized. Kidneys and ureters: Renal atrophy. No obstructing stones. No hydronephrosis. Stomach and bowel: Limited evaluation without enteric contrast. Stomach is collapsed, limiting its evaluation. Gastric wall appears thickened. Retained fecal material in the colon. No obstruction. PELVIS: Bladder: No acute abnormality as visualized. Reproductive: Limited evaluation on non-contrast study. Evidence of leiomyomatous changes in the uterus. Again noted is evidence of a large left adnexal cyst, measured at 4.6 cm in maximal dimension. Further evaluation can be performed with dedicated ultrasound. ABDOMEN and PELVIS: Intraperitoneal space: No free air. No significant fluid collection. Bones: Degenerative changes. Vasculature: Severe atherosclerosis, severely advanced for age. Evidence of femoral to femoral artery bypass graft. No abdominal aortic aneurysm. Lymph nodes: No acute abnormality as visualized. IMPRESSION: Limited evaluation without enteric contrast. Stomach is collapsed, limiting its evaluation. Gastric wall appears thickened. Retained fecal material in the colon. Cholelithiasis. More sensitive evaluation of the biliary system can be performed with dedicated ultrasound as warranted. Evidence of leiomyomatous changes in the uterus. Again noted is evidence of a large left adnexal cyst, measured at 4.6 cm in maximal dimension. Further evaluation can be performed with dedicated ultrasound. Severe atherosclerosis, severely advanced for age. Evidence of femoral to femoral artery bypass graft. Please see additional details/findings as above. Some of the above findings may warrant followup evaluation 09/05/17 22:[address] Byrd, covering for Dr. Coffman, who is aware and agrees with plan. Accepts pt in to her service. Pt will go to [facility] observation for abdominal pain and vomiting. - Lab Interpretations Lab Results: 09/05/17 17:40 09/05/17 17:40 Lab Results 09/05/17 18:10: pO2 83 H, VBG pH 7.34, VBG pCO2 61.0 H, VBG HCO3 32.9 H, VBG Total CO2 34.8 H, VBG O2 Sat (Calc) 95.4 H, VBG Base Excess 5.2 H, VBG Potassium 3.3 L, Glucose 95, Lactate 0.9, FiO2 21.0, Sodium 137.0, Chloride 99.0 , Venous Blood Potassium 3.3 L 09/05/17 17:40: Sodium 139, Potassium 3.1 L, Chloride 96 L, Carbon Dioxide 32, Anion Gap 14, BUN 12, Creatinine 1.9 H, Est GFR ( Amer) 33, Est GFR (Non- Af Amer) 27, Random Glucose 92, Calcium 9.4, Total Bilirubin 0.5, AST 39 H, ALT 27, Alkaline Phosphatase 121, Troponin I 0.06 D, Total Protein 6.6, Albumin 3.9 , Globulin 2.7, Albumin/Globulin Ratio 1.4, Lipase 42 09/05/17 17:40: WBC 8.7 D, RBC 3.78, Hgb 10.5 L, Hct 35.2 L, MCV 93.1, MCH 27.8 , MCHC 29.8 L, RDW 14.6 H, Plt Count 296, MPV 11.0, Gran % 74.0 H, Lymph % (Auto ) 16.9 L, Collin % (Auto) 7.6 H, Eos % (Auto) 0.9 L, Baso % (Auto) 0.6, Gran # 6.41, Lymph # 1.5, Collin # 0.7 H, Eos # 0.1, Baso # 0.05 - RAD Interpretation Radiology Orders: 09/05/17 17:27 ABD & PELVIS W/O PO OR IV CONT [CT] Stat 09/05/17 19:33 CHEST PORTABLE [RAD] Stat - Medication Orders Current Medication Orders: Discontinued Medications Ondansetron HCl (Zofran Odt) 4 mg PO STAT STA Stop: 09/05/17 18:31 Last Admin: 09/05/17 18:34 Dose: 4 mg - Scribe Statement The provider has reviewed the documentation as recorded by the Jayleen Diez Provider Scribe Attestation: All medical record entries made by the Aaronibthais were at my direction and personally dictated by me. I have reviewed the chart and agree that the record accurately reflects my personal performance of the history, physical exam, medical decision making, and the department course for this patient. I have also personally directed, reviewed, and agree with the discharge instructions and disposition. Disposition/Present on Arrival - Present on Arrival Any Indicators Present on Arrival: No History of DVT/PE: Yes History of Uncontrolled Diabetes: No Urinary Catheter: No History of Decub. Ulcer: No History Surgical Site Infection Following: None - Disposition Have Diagnosis and Disposition been Completed?: Yes Diagnosis: Abdominal pain, Vomiting Disposition: HOSPITALIZED Disposition Time: 22:40 Condition: GOOD
--- NOTE | 2017-09-05 20:56 | CT ---
EXAM: CT Abdomen and Pelvis Without Intravenous Contrast CLINICAL HISTORY: 57 years old, female; Pain; Abdominal pain; Patient HX: Pain and vomiting R/O obstruction TECHNIQUE: Axial computed tomography images of the abdomen and pelvis without intravenous contrast. All CT scans at this facility use one or more dose reduction techniques, viz.: automated exposure control; ma/kV adjustment per patient size (including targeted exams where dose is matched to indication; i.e. head); or iterative reconstruction technique. Coronal and sagittal reformatted images were created and reviewed. COMPARISON: CT - ABD PELVIS W/O PO OR IV CONT 2017-01-07 06:42 FINDINGS: Lower thorax: Scarring at the lung bases. Coronary artery and valvular calcification. Coronary artery calcification. Evidence of pericardial thickening. ABDOMEN: Liver: No acute abnormality as visualized. Gallbladder and bile ducts: Cholelithiasis. More sensitive evaluation of the biliary system can be performed with dedicated ultrasound as warranted. Pancreas: No acute abnormality as visualized. Spleen: No splenomegaly. Adrenals: No acute abnormality as visualized. Kidneys and ureters: Renal atrophy. No obstructing stones. No hydronephrosis. Stomach and bowel: Limited evaluation without enteric contrast. Stomach is collapsed, limiting its evaluation. Gastric wall appears thickened. Retained fecal material in the colon. No obstruction. PELVIS: Bladder: No acute abnormality as visualized. Reproductive: Limited evaluation on non-contrast study. Evidence of leiomyomatous changes in the uterus. Again noted is evidence of a large left adnexal cyst, measured at 4.6 cm in maximal dimension. Further evaluation can be performed with dedicated ultrasound. ABDOMEN and PELVIS: Intraperitoneal space: No free air. No significant fluid collection. Bones: Degenerative changes. Vasculature: Severe atherosclerosis, severely advanced for age. Evidence of femoral to femoral artery bypass graft. No abdominal aortic aneurysm. Lymph nodes: No acute abnormality as visualized. IMPRESSION: Limited evaluation without enteric contrast. Stomach is collapsed, limiting its evaluation. Gastric wall appears thickened. Retained fecal material in the colon. Cholelithiasis. More sensitive evaluation of the biliary system can be performed with dedicated ultrasound as warranted. Evidence of leiomyomatous changes in the uterus. Again noted is evidence of a large left adnexal cyst, measured at 4.6 cm in maximal dimension. Further evaluation can be performed with dedicated ultrasound. Severe atherosclerosis, severely advanced for age. Evidence of femoral to femoral artery bypass graft. Please see additional details/findings as above. Some of the above findings may warrant followup evaluation.
[2017-09-05 21:46] VITALS: O2SAT 100
[2017-09-06] MEDS ORDERED: Oxycodone/Acetaminophen 5/325 mg Tab PO PRN (01:12)
[2017-09-06] MEDS ORDERED: Potassium Chloride 20 mEq ER Tab PO ONE (01:15)
--- NOTE | 2017-09-06 07:55 | HP ---
DATE OF ADMISSION: 09/05/2017. HISTORY OF PRESENT ILLNESS: Ms. Thakur is 57-year-old with end-stage renal disease, on hemodialysis. She felt nauseous after the dialysis and developed abdominal pain. She has abdominal pain for 3 days, mainly epigastric in nature. Also has history of nausea and vomiting for 3 days. No bleeding per rectum. No abdominal distention. She has history of COPD, no recent exacerbation. History of hypothyroidism, controlled with current medications. PAST MEDICAL HISTORY: End-stage renal disease, on hemodialysis; left-sided pelvic mass; history of COPD; hypothyroidism; chronic anemia; anxiety. PAST SURGICAL HISTORY: Cardiac catheterization, coronary stent placement, placement of renal dialysis shunt. FAMILY HISTORY: Noncontributory. PERSONAL HISTORY: Light smoker. Smokes less than 10 cigarettes a day. No history of alcohol abuse. SOCIAL HISTORY: Lives at home. ALLERGIES: CIPROFLOXACIN, HYDRALIZINE, VANCOMYCIN, CAT SCAN DYE. HOME MEDICATIONS: Clonidine 0.2 mg p.r.n., labetalol 300 mg q. 8 hours, nifedipine 90 mg daily, lisinopril 40 mg daily, metoprolol 100 mg p.o. once. REVIEW OF SYSTEMS: As per HPI. Rest of 12-point review of systems reviewed negative. PHYSICAL EXAMINATION: GENERAL: Comfortable in bed, in no acute distress. Alert, oriented x3. VITAL SIGNS: Vitals stable. Temperature 98.7, heart rate 80 per minute, blood pressure 180/93, respiratory rate 18 per minute, oxygen saturation 100% on room air. HEENT: Pallor positive. NECK: Supple. CHEST: Air entry present and equal bilaterally. No added sounds. CARDIOVASCULAR: S1 and S2 normal. No murmur. No gallop. ABDOMEN: Soft, nontender. No hepatosplenomegaly. NEUROLOGIC: Alert, oriented x3. No focal sensory or motor deficits. EXTREMITIES: Right lower extremity chronic wound present. SPINE: Nontender. SKIN: No petechiae. No rash. IMAGING: CAT scan of abdomen and pelvis did not show any acute pathology. Left adnexal mass present, likely cystic. LABORATORY DATA: White count 8.7, hemoglobin 10.5, hematocrit 35.2, platelet count 296. Sodium 139, potassium 3.1, chloride 96, BUN 12, creatinine 1.9, AST 39, ALT 23. ASSESSMENT: End-stage renal disease, on hemodialysis; chronic anemia; hypothyroidism; nausea; vomiting; possible acute gastritis; left-sided pelvic mass; chronic obstructive pulmonary disease; coronary artery disease. PLAN: She will be admitted to the hospital. She was dialyzed yesterday. We will get Renal consult for dialysis. We will continue clonidine 0.2 mg p.o. p.r.n., Plavix 75 mg daily, labetalol 300 mg p.o. q. 8 hours, Synthroid 75 mcg daily, nifedipine 90 mg daily, Zofran oral dissolving tablet 4 mg q. 6 hours p.r.n., Percocet p.r.n. for pain, Protonix 40 mg IV daily. We will get Gastroenterology consultation, Dr. Bermudez; Podiatry consultation, Dr. Blanton. Keep her on liquid diet. She is a difficult access. Hold IV fluids now. We will reassess the hydration status. Amylase, lipase are normal. We will do CA125 for left adnexal mass, likely a cystic lesion. Chronic anemia, hemoglobin and hematocrit stable. Likely due to hemodialysis. We will do the blood work for anemia. Jaymie Byrd MD
[2017-09-06 07:56] VITALS: BP 166/78; PULSE 63; RESP 20; TEMP 98.4
[2017-09-06] MEDS ORDERED: Naloxone 0.4 mg/ml Inj (Adult) ONE (09:29)
[2017-09-06] MEDS ORDERED: Levothyroxine 75 MCG TAB PO SCH (10:00)
[2017-09-06] MEDS ORDERED: NIFEdipine 90 mg ER Tab PO SCH (10:00)
--- NOTE | 2017-09-06 15:11 | RAD ---
HISTORY: Abdominal pain COMPARISON: 08/28/2017 FINDINGS: Right IJ dialysis catheter with tips in the SVC/RA junction. Multiple tandem endovascular stent grafts again seen in the right subclavian right axillary and medial soft tissues right upper extremity. LUNGS: Previously noted right-sided effusion and right basilar atelectasis or infiltrate improved. Persistent slight elevation right hemidiaphragm could be due to eventration. PLEURA: No significant pleural effusion identified, no pneumothorax apparent. CARDIOVASCULAR: Cardiomegaly OSSEOUS STRUCTURES: No significant abnormalities. VISUALIZED UPPER ABDOMEN: Normal. OTHER FINDINGS: None. IMPRESSION: Previously noted right-sided effusion and right basilar atelectasis or infiltrate improved. Persistent slight elevation right hemidiaphragm could be due to eventration.
--- NOTE | 2017-09-06 15:41 | CARD ---
APPROVED REPORT EKG Measurement Heart [id number] <Conclusion> Normal sinus rhythm Possible Left atrial enlargement Left ventricular hypertrophy with repolarization abnormality Prolonged QT Abnormal ECG
== END 2017-09-06 14:24 | disposition home or self-care (01) ==
LOC: ED 17:07 → ERH 22:42 → 5RSO 23:53
PROVIDERS: ADMIT Internal Medicine Medical Oncology; ATTEND Internal Medicine Medical Oncology
DX: R10.13 Epigastric pain (principal); I13.2 Hypertensive heart and chronic kidney disease with heart failure and with stage 5 chronic kidney disease, or end stage renal disease; I50.9 Heart failure, unspecified; N18.6 End stage renal disease; J44.9 Chronic obstructive pulmonary disease, unspecified; I25.10 Atherosclerotic heart disease of native coronary artery without angina pectoris; D64.9 Anemia, unspecified; Z99.2 Dependence on renal dialysis; E03.9 Hypothyroidism, unspecified; F17.210 Nicotine dependence, cigarettes, uncomplicated; H91.90 Unspecified hearing loss, unspecified ear; K80.20 Calculus of gallbladder without cholecystitis without obstruction; Z95.5 Presence of coronary angioplasty implant and graft
CPT/HCPCS: 71010; 74176; 80053; 82803; 83690; 84484; 85025; 93005; 99285; G0378

== ENCOUNTER 2017-09-08 13:57 | Inpatient (IN) | payer MEDICARE, OTHER ==
[2017-09-08 14:18] VITALS: BMI 20.5
[2017-09-08] MEDS ORDERED: Nitroglycerin 2% Ointment Foilpak UD TOP STA (14:24)
[2017-09-08] MEDS ORDERED: Morphine 4 mg/ml ISec IVP STA (14:25)
[2017-09-08] MEDS ORDERED: Labetalol 5 mg/ml Inj 20ML IV STA (14:26)
--- NOTE | 2017-09-08 14:30 | ED PDOC ---
Arrival/HPI - General Chief Complaint: Chest Pain Time Seen by Provider: 09/08/17 14:22 Historian: Patient - History of Present Illness Narrative History of Present Illness (Text): 09/08/17 14:20 Renetta Thakur is a 57 year old female, whose past medical history includes hypertension, CHF, and COPD, who presents to the emergency department complaining of shortness of breath since last night. Patient reports she has been coughing with yellow-green sputum, nausea, chills, and voice changes. Patient also notes having a fever of 101 degrees F. Patient also complaints of chest pain described as throbbing and pressure and today she began to vomit. She notes being on Oxygen at home (3L) and on dialysis (Thursday, , Thursday), which she did not obtain today. Patient denies headache, back pain, diarrhea, abdominal pain, lower extremity pain/swelling, recent travel, recent surgery, recent prolonged immobilization, hematochezia, melena, dizziness or other complaints. She also states being d/c from emergency department 2 days ago when coming in for vomiting and having contact with sick family member. PMD: Dr. Coffman Tapper Bit: Dr. Oleary nephorology: dr Smith 09/08/17 16:52 Time/Duration: < week Symptom Onset: Gradual Symptom Course: Worsening Quality: Aching, Pressure, Throbbing Severity Level: 10 Activities at Onset: Light Context: Home Past Medical History - Provider Review Nursing Documentation Reviewed: Yes - Travel History Have you recently traveled outside [place] w/in the past 3 mons?: No - Past History Past History: No Previous - Infectious Disease Hx of Infectious Diseases: None - Tetanus Immunization Tetanus Immunization: Unknown - Reproductive Menopause: Yes - Cardiac Hx Cardiac Disorders: Yes Hx Angina: Yes Hx Cardiac Arrhythmia: Yes Hx Circulatory Problems: Yes Hx Congestive Heart Failure: Yes Hx Heart Murmur: No Hx Heart Transplant: No Hx Hypertension: Yes Hx Internal Defibrillator: No Hx Peripheral Edema: Yes Hx Peripheral Vascular Disease: Yes (pvd, has paiin when amb. numbness) - Pulmonary Hx Respiratory Disorders: Yes Hx Asthma: Yes Hx Chronic Obstructive Pulmonary Disease (COPD): Yes - Neurological HX Cerebrovascular Accident: Yes Hx Migraine: Yes - HEENT Hx HEENT Disorder: Yes (hard of hearing) - Renal Hx Renal Disorder: Yes Hx Dialysis: Yes Hx Renal Failure: Yes - Endocrine/Metabolic Hx Hypothyroidism: Yes - Hematological/Oncological Hx Blood Disorders: Yes Hx Anemia: Yes Other/Comment: Hx. Blood transfusions - Integumentary Hx Dermatological Disorder: No Other/Comment: Stasis ulcer on right francis - Musculoskeletal/Rheumatological Hx Falls: Yes Hx Unsteady Gait: Yes - Gastrointestinal Hx Gastrointestinal Disorders: Yes (FECAL IMPACTION,CONSTIPATION,POOR APPETITE, GASTRITIS) - Genitourinary/Gynecological Hx Genitourinary Disorders: No - Psychiatric Hx Psychophysiologic Disorder: Yes Hx Anxiety: Yes Hx Substance Use: No - Past Surgical History Past Surgical History: Unable to Obtain - Surgical History Hx Cardiac Catheterization: Yes Hx Coronary Stent: Yes Hx Orthopedic Surgery: No - Anesthesia Hx Anesthesia: Yes Hx Anesthesia Reactions: No Hx Malignant Hyperthermia: No - Suicidal Assessment Feels Threatened In Home Enviroment: No Family/Social History - Physician Review Nursing Documentation Reviewed: Yes Family/Social History: Unknown Family HX Smoking Status: Former Smoker Hx Alcohol Use: No Hx Substance Use: No Hx Substance Use Treatment: No Allergies/Home Meds Allergies/Adverse Reactions: Allergies ciprofloxacin Allergy (Verified 09/05/17 17:13) RASH hydralazine Allergy (Verified 09/05/17 17:13) RASH vancomycin Allergy (Verified 09/05/17 17:13) SHORTNESS OF BREATH ct dye Allergy (Uncoded 09/05/17 17:13) RASH Home Medications: Home Meds Medication Instructions Recorded Confirmed cloNIDine [Catapres] 0.2 mg PO PRN PRN 06/04/16 09/05/17 Labetalol [Trandate] 300 mg PO Q8 08/20/17 09/05/17 NIFEdipine ER [Procardia XL] 90 mg PO DAILY 08/20/17 09/05/17 Lisinopril [Zestril] 40 mg PO ONCE 08/28/17 09/05/17 Metoprolol Tartrate [Lopressor] 100 mg PO ONCE 08/28/17 09/05/17 Zofran Tab 4 mg PO Q6 PRN 09/06/17 09/06/17 Review of Systems - Review of Systems Constitutional: Fevers ENT: Voice Changes, Sinus Congestion. absent: Sore Throat Respiratory: SOB, Cough, Sputum Cardiovascular: Chest Pain Gastrointestinal: Nausea, Vomiting. absent: Abdominal Pain, Constipation, Diarrhea Genitourinary Female: absent: Dysuria, Frequency, Vaginal Discharge Skin: absent: Rash Neurological: absent: Dizziness, Focal Weakness Endocrine: Diaphoresis Hemo/Lymphatic: absent: Easy Bleeding Physical Exam Vital Signs Reviewed: Yes (elevated BP; SOB) Vital Signs Temp Pulse Resp BP Pulse Ox 09/08/17 16:06 78 18 209/94 H 100 09/08/17 15:05 77 220/75 H 09/08/17 13:57 98.7 F 89 15 247/171 H 100 Temperature: Afebrile Blood Pressure: Hypertensive Pulse: Regular Respiratory Rate: Normal Appearance: Positive for: Well-Appearing, Non-Toxic, Other (alert/awake, uncomfortable, resting in bed, mild-moderate distress due to difficulty breathing, cooperative) Pain Distress: Moderate Mental Status: Positive for: Alert and Oriented X 3 - Systems Exam Head: Present: Atraumatic, Normocephalic, Other (bi-temporal wasting noted) Pupils: Present: PERRL, Other (no nystagmus, no photophobia, sclera anicteric) Extroacular Muscles: Present: EOMI Conjunctiva: Present: Normal Mouth: Present: Other (fair dentitions, mild dry oral mucosa, no exudate/lesions ) Pharnyx: Present: Normal Nose (External): Present: Atraumatic Neck: Present: Normal Range of Motion, Trachea Midline Respiratory/Chest: Present: Wheezes (left lower lobe), Rales, Tachypneic (mild) . No: Clear to Auscultation, Good Air Exchange, Respiratory Distress, Accessory Muscle Use Cardiovascular: Present: Regular Rate and Rhythm, Normal S1, S2. No: Murmurs Abdomen: Present: Normal Bowel Sounds. No: Tenderness, Distention, Peritoneal Signs, Rebound, Guarding Upper Extremity: Present: Normal Inspection, Normal ROM, NORMAL PULSES, Neurovascularly Intact, Capillary Refill < 2s. No: Cyanosis, Edema, Tenderness , Swelling, Erythema, Deformity Lower Extremity: Present: Normal Inspection, NORMAL PULSES, Normal ROM, Capillary Refill < 2 s. No: Edema, Cyanosis, Lisa's Sign, Tenderness, Swelling , Erythema Neurological: Present: GCS=15, CN II-XII Intact, Speech Normal Skin: Present: Warm, Dry, Pale. No: Rashes, Normal Color Psychiatric: Present: Alert, Oriented x 3, Normal Insight, Normal Concentration Medical Decision Making ED Course and Treatment: 09/08/17 Impression: chest pain/fever/sob/coughing/sick contact, missed dialysis I have considered all Differential Diagnosis regarding pt's chief medical complaints/clinical findings included but are not limited to: r/o infection vs. PNA vs. bronchitis vs. flu r/o ACS vs. copd unlikely PE, possible non-compliance with medication. Plan: fever/cp/sob -- EKG -- Chest X-ray -- Labs -- Urinalysis -- Duoneb, Ecotrin, Morphine, Nitroglycerin, Trandate -- Reassess and disposition Progress Notes: 09/08/17 16:24 pt is currently chest pain free 09/08/17 16:28 pt is made aware of her medical results pt agrees with admission/observation I spoke to regional transportation manager nephrologists, Dr Strauss/aries, made aware, will dialyze patient i spoke to Dr Spear, made aware, states pt unlikely with ACS caused CP, but if Dr Coffman wants consult, he will see her in the morning 4:25pm - Dr Coffman, pt's PCP contacted, made aware, agrees with admission/ observation, would like CT chest noncontrast; agrees with ED mgt/txt/dx i also spoke to transition care, VP CONSTRUCTION luis barry, made aware, will continue to evaluate patient 09/08/17 17:32 pt with improving vital signs Re-evaluation Time: 17:00 Reassessment Condition: Improving,but remains with symptoms - Lab Interpretations Lab Results: 09/08/17 14:55 09/08/17 14:55 Lab Results 09/08/17 16:10: Influenza Typ A,B (EIA) Negative for flu a/b 09/08/17 14:55: Sodium 137, Chloride 98, Potassium 5.6 H* D, Carbon Dioxide 26, Anion Gap 18, BUN 55 H, Creatinine 7.0 H, Est GFR ( Amer) 7, Est GFR (Non -Af Amer) 6, Random Glucose 80, Calcium 10.0, Total Bilirubin 0.5, AST 35, ALT 34, Alkaline Phosphatase 121, Lactate Dehydrogenase 491, Total Creatine Kinase 109, Troponin I 0.06, NT-Pro-B Natriuret Pep 273993 H, Total Protein 6.4, Albumin 3.9, Globulin 2.6, Albumin/Globulin Ratio 1.5 09/08/17 14:55: WBC 7.5, RBC 3.58, Hgb 10.0 L, Hct 33.8 L, MCV 94.4, MCH 27.9, MCHC 29.6 L, RDW 14.9 H, Plt Count 270, MPV 10.0, Gran % 76.6 H, Lymph % (Auto) 13.0 L, [place] % (Auto) 7.9 H, Eos % (Auto) 1.7, Baso % (Auto) 0.8, Gran # 5.72, Lymph # 1.0 L, [place] # 0.6, Eos # 0.1, Baso # 0.06 09/08/17 14:45: pO2 66 H, VBG pH 7.23 L, VBG pCO2 63.0 H, VBG HCO3 26.4, VBG Total CO2 28.3 H, VBG O2 Sat (Calc) 92.1 H, VBG Base Excess -2.4 L, VBG Potassium 5.6 H, Sodium 134.0, Chloride 101.0, Glucose 81, Lactate 0.6 L, FiO2 21.0, Venous Blood Potassium 5.6 H elevated BUN/CREAT; bnp I have reviewed the lab results: Yes Interpretation: Abnormal lab values - RAD Interpretation Radiology Orders: 09/08/17 14:23 CHEST PORTABLE [RAD] Stat 09/08/17 16:27 CHEST W/O CONTRAST [CT] Stat HISTORY: SOB/fever/chest pain COMPARISON: 09/05/2017 FINDINGS: LUNGS: No active pulmonary disease. PLEURA: No significant pleural effusion identified, no pneumothorax apparent. CARDIOVASCULAR: Normal. OSSEOUS STRUCTURES: No significant abnormalities. VISUALIZED UPPER ABDOMEN: Normal. OTHER FINDINGS: Right-sided dialysis catheter and right-sided vascular stent IMPRESSION: No active disease. CT chest - pending Corporate Communications Intern: Radiologist - EKG Interpretation EKG Interpretation (Text): 09/08/17 16:30 NSR at 80 bpm, normal axis, no ectopy, inverted T in leads I, L, V5-6, voltage criteria LVH, non-specific st-t changes, ABNL EKG; unchanged compare with old ekg 08/201709/08/17 17:32 Interpreted by ED Physician: Yes Type: 12 lead EKG Comparison: Similar to previous EKG - Medication Orders Current Medication Orders: Azithromycin (Zithromax 500mg In Ns) 500 mg in 250 mls @ 167 mls/hr IVPB STAT STA PRN Reason: Protocol Stop: 09/08/17 17:53 Discontinued Medications Albuterol/Ipratropium (Duoneb 3 Mg/0.5 Mg (3 Ml) Ud) 3 ml IH Q15M ZANA Stop: 09/08/17 15:01 Last Admin: 09/08/17 15:28 Dose: 3 ml Aspirin (Ecotrin) 81 mg PO STAT STA Stop: 09/08/17 14:24 Last Admin: 09/08/17 15:05 Dose: 81 mg Ceftriaxone Sodium (Rocephin 1 Gram Ivpb) 1 gm in 100 mls @ 200 mls/hr IVPB STAT STA PRN Reason: Protocol Stop: 09/08/17 16:54 Labetalol HCl (Trandate) 10 mg IV STAT STA Stop: 09/08/17 14:27 Last Admin: 09/08/17 15:05 Dose: 10 mg eMAR Start Stop Document 09/08/17 15:05 SRE (Rec: 09/08/17 15:18 SRE [id number]) Intravenous Solution Start Date 09/08/17 Start Time 15:05 End Date 09/08/17 End time 15:07 Total Infusion Time 2 NOV Pulse and Blood Pressure Document 09/08/17 15:05 SRE (Rec: 09/08/17 15:18 SRE [id number]) Pulse Pulse Rate (60-90) 77 Blood Pressure Blood Pressure (100/60-150/90) 220/75 Morphine Sulfate (Morphine) 4 mg IVP STAT STA Stop: 09/08/17 14:26 Last Admin: 09/08/17 15:10 Dose: 4 mg MAR Pain Assessment Document 09/08/17 15:10 SRE (Rec: 09/08/17 15:17 SRE [id number]) Pain Reassessment Is this a pain reassessment? Yes Sleep Is patient sleeping during reassessment? No Presence of Pain Presence of Pain Yes Pain Scale Used Pain Scale Used Numeric Location Pain Location Body Site Chest Description Description Constant IVP Administration Document 09/08/17 15:10 SRE (Rec: 09/08/17 15:17 SRE [id number]) Charges for Administration # of IVP Administrations 1 Nitroglycerin (Nitro-Bid 2% Oint) 1 ea TOP STAT STA Stop: 09/08/17 14:25 Last Admin: 09/08/17 15:05 Dose: 1 ea - Scribe Statement The provider has reviewed the documentation as recorded by the Aaronibthais Jade Provider Scribe Attestation: All medical record entries made by the Scribe were at my direction and personally dictated by me. I have reviewed the chart and agree that the record accurately reflects my personal performance of the history, physical exam, medical decision making, and the department course for this patient. I have also personally directed, reviewed, and agree with the discharge instructions and disposition. Disposition/Present on Arrival - Present on Arrival Any Indicators Present on Arrival: No History of DVT/PE: Yes History of Uncontrolled Diabetes: No Urinary Catheter: No History of Decub. Ulcer: No History Surgical Site Infection Following: None - Disposition Have Diagnosis and Disposition been Completed?: Yes Diagnosis: Fever, Bronchitis, Chest pain, End stage renal disease on dialysis, Shortness of breath Disposition: HOSPITALIZED Disposition Time: 16:30 Patient Plan: Admission, Observation Condition: STABLE Discharge Instructions (ExitCare): Chest Pain (ED) Referrals: Brittany Coffman MD [Primary Care Provider] - Follow up with primary Forms: [employer] (Thai)
[2017-09-08] MEDS: Albuterol-Ipratrop 3 mg / 0.5 (3 ml) UD IH SCH ×3 (15:00→15:28)
--- NOTE | 2017-09-08 15:08 | RAD ---
HISTORY: SOB/fever/chest pain COMPARISON: 09/05/2017 FINDINGS: LUNGS: No active pulmonary disease. PLEURA: No significant pleural effusion identified, no pneumothorax apparent. CARDIOVASCULAR: Normal. OSSEOUS STRUCTURES: No significant abnormalities. VISUALIZED UPPER ABDOMEN: Normal. OTHER FINDINGS: Right-sided dialysis catheter and right-sided vascular stent IMPRESSION: No active disease.
[2017-09-08 15:21] LABS: VENOUS BLOOD GAS BASE EXCESS -2.4 mmol/L (0.0-2.0); VENOUS BLOOD GAS PO2 66 mm/Hg (30-55); VENOUS BLOOD PH 7.23 (7.32-7.43)
[2017-09-08 15:21] LABS: BASO # 0.06 K/mm3 (0.0-2.0); BASO % 0.8 % (0.0-3.0); EOS # 0.1 (0.0-0.7); EOS % 1.7 % (1.5-5.0); GRAN # 5.72 (1.4-6.5); GRAN % 76.6 % (50.0-68.0); MEAN CELL VOLUME 94.4 fl (80.0-105.0); MEAN CORPUSCULAR HEMOGLOBIN 27.9 pg (25.0-35.0); MEAN CORPUSCULAR HGB CONC 29.6 g/dl (31.0-37.0); MONO # 0.6 (0.1-0.6); MONO % 7.9 % (1.0-6.0); RBC 3.58 10^6/uL (3.5-6.1); RED CELL DISTRIBUTION WIDTH 14.9 % (11.5-14.5); WHITE BLOOD COUNT 7.5 10^3/ul (4.5-11.0)
[2017-09-08 15:36] LABS: TROPONIN I 0.06 ng/mL
[2017-09-08 15:45] LABS: ALB/GLOB RATIO 1.5 (1.1-1.8); ALBUMIN 3.9 g/dL (3.0-4.8)
[2017-09-08] MEDS ORDERED: Azithromycin 500MG/NS 250ml 500 MG/250 ML BAG IVPB STA (16:24)
[2017-09-08] MEDS ORDERED: cefTRIAXone 1 gm 1 GM/100 ML BAG IVPB STA (16:25)
[2017-09-08 18:06] LABS: MAGNESIUM 2.2 mg/dL (1.7-2.2)
[2017-09-08] MEDS: Levalbuterol 1.25 MG/3 ML Inhal Soln UD IH SCH (20:30)
--- NOTE | 2017-09-09 01:16 | CON ---
DATE: 09/08/2017 REFERRING MD: Brittany Coffman MD. REASON FOR CONSULTATION: To provide dialysis services for the patient with end-stage renal disease, who is admitted with fever, cough with sputum, nausea, and vomiting. HISTORY OF PRESENT ILLNESS: The patient is a 57-year-old white female, known to me from outpatient dialysis. The patient had a recent hospitalization for decompensated CHF. She received appropriate dialysis, restricted her fluids, spent several days in the hospital, and was discharged home. The patient had a lengthy hospitalization for severe peripheral vascular disease of her lower extremity, status post severe vascular surgery intervention. The patient states that she might need to have an amputation of her right lower extremity if the ulcer does not heal. The patient states that over New Year's weekend, she was with extended family members who were sick. Young children had upper respiratory tract infection. Over the last 24 hours, the patient developed fevers at home, cough, sputum, nausea, and vomiting. She came to the emergency room. The patient was noted to have a temperature of 98.7. She was noted to have blood pressures, systolics greater than 200 and diastolics ranging from 75 up to 150. The patient is due for dialysis today. She had a negative chest x-ray in the emergency room. No pneumonia. The patient was given one dose of Rocephin in the emergency room and Zithromax. The patient is being admitted for an upper respiratory tract infection; perhaps bronchitis. She is seen by me completing her outpatient dialysis prior to being admitted to the hospital. The patient states that she has not smoked since she has been discharged. The patient is compliant with her medication. She has a history of hypothyroidism and remains on thyroid replacement therapy. PAST MEDICAL HISTORY: Significant for that of end-stage renal disease on chronic maintenance dialysis, history of CHF, history of COPD secondary to long history of cigarette smoking, history of pulmonary hypertension, history of peripheral vascular disease - status post vascular bypass surgery of her lower extremity, history of hypothyroidism, anemia secondary to chronic kidney disease, hypertension - difficult to control, and secondary hyperparathyroidism. MEDICATIONS AT HOME: Included that of clonidine, Zofran, Nephro-Tor, Procardia, Lopressor, Zestril, Synthroid, Trandate, and Plavix. ALLERGIES: THE PATIENT IS ALLERGIC TO CIPRO, FLOXIN, HYDRALAZINE, VANCOMYCIN AND CT DYE. MEDICATIONS IN HOSPITAL: Include that of Zithromax and Rocephin. SOCIAL HISTORY: Up until 2 weeks ago, the patient was a cigarette smoker for many years. No history of alcohol use. FAMILY HISTORY: Positive for hypertension. REVIEW OF SYSTEMS: A 10-point systems reviewed with the patient. All negative except what is noted above. GENERAL: The patient states appetite has been fair with no weight loss since discharge from the hospital last week. ENT: Denies any hearing or visual problems. PULMONARY: Positive shortness of breath. Positive COPD. CARDIAC: History of CHF as noted above. No chest pain. GI: Nausea and vomiting as noted above. No diarrhea, constipation or abdominal pain. : History of end-stage renal disease. SOLAR PHOTOVOLTAIC DESIGNER: Postmenopausal. ENDOCRINE: No history of diabetes. Positive history of secondary hyperparathyroidism. MUSCULOSKELETAL: No complaints. NEURO: No history of CVA, TIA, seizures, or syncope. HEME/ONC: Positive for anemia secondary to chronic kidney disease. PAST PSYCHIATRIC HISTORY: Negative. PHYSICAL EXAMINATION: GENERAL: The patient is currently seen completing her outpatient dialysis prior to being admitted to the hospital. VITAL SIGNS: Her last blood pressure was 147/85, heart rate is 96, temperature is 99.5, respiratory rate is 18, pulse ox is 100%. HEENT: Exam shows her to be normocephalic, atraumatic. Conjunctivae are pale. Sclerae nonicteric. Pupils equal, reactive to light and accommodation. Extra muscles are intact. Posterior pharynx is normal. No sinus tenderness. No posterior nasal drip. NECK: Supple. No neck vein distention or thyromegaly. No lymphadenopathy. No bruits. CHEST: Clear to auscultation and percussion. No rales, rhonchi or wheezing. Positive for right chest wall PermCath. CARDIOVASCULAR: Shows a regular rate and rhythm. No S3. No S4. Positive systolic murmur at left lower sternal border. No rub. ABDOMEN: Soft. Bowel sounds normal. No rebound or guarding or masses. EXTREMITIES: She has dressing over her right lower leg, covering an ulcer. Diminished lower extremity pulses. Nonfunctioning AV fistula of her upper extremity. No edema. No cyanosis or clubbing. NEURO: Shows her to be alert, oriented x3, with no gross focal motor or sensory deficits. LABORATORY DATA AND IMAGING STUDIES: CBC; white blood cell count 7.5, hemoglobin 10.0, platelet count is 270,000. Chemistries show potassium of 5.6, sodium 137, BUN 55, creatinine 7.0. Calcium is 10.0. Phosphorus level is pending. BNP is 216,000 with an albumin of 3.9. Blood gas; pH 7.23, pO2 66 with a pCO2 of 63. Admitting chest x-ray shows no acute pulmonary disease. She has a right PermCath catheter visible on x-ray. Microbiology; no cultures available for comment. ASSESSMENT: 1. Likely upper respiratory tract infection. Perhaps bronchitis. The patient was treated empirically with IV antibiotic therapy, Rocephin, and we will continue on Zithromax. No evidence for pneumonia. Presently no evidence for congestive heart failure. In all likelihood, the patient became infected with close contact with her extended family members over the holiday weekend. 2. End-stage renal disease. The patient will continue routine dialysis. She dialyzes 3 days a week and occasionally requires a fourth day. 3. History of congestive heart failure; none at present. 4. Chronic obstructive pulmonary disease. The patient will be treated appropriately for her chronic obstructive pulmonary disease. She has long history of cigarette smoking. This is likely the cause of her respiratory tract infections. 5. History of pulmonary hypertension, currently stable. 6. History of peripheral vascular disease, status post vascular bypass of her lower extremity with a poorly healing ulcer of her right leg. Microbiology for that ulcer in previous admission showed Pseudomonas strep species coag-negative and Corynebacterium. The patient also had Pseudomonas growing out of the opposite leg. 7. Hypothyroidism. The patient will continue thyroid replacement therapy. 8. History of anemia. The patient will receive Aranesp and IV per protocol on dialysis unit. 9. Hypertension. Blood pressure is always labile. She should continue present blood pressure medications. The patient responds nicely to dialysis. She must be careful not to dialyze above her estimated dry weight. 10. History of secondary hyperparathyroidism. The patient will continue binder therapy, pending phosphorus level determination. The patient will continue renal diet. PLAN: 1. Antibiotic therapy as per Dr. Coffman and the emergency room staff. 2. Check sputum cultures. 3. Blood cultures pending. 4. The patient reassured no evidence for pneumonia. 5. Monitor temperatures and monitor white blood cell count. 6. Zofran p.r.n. for nausea and vomiting. 7. Continue all outpatient blood pressure medications, even on dialysis days. 8. We will monitor along with you during her hospitalization. Thank you for letting us partake and share in the care of our mutual patient. Sampson Hutchins MD
[2017-09-09] MEDS: Levalbuterol 1.25 MG/3 ML Inhal Soln UD IH SCH ×4 (03:00→20:09)
--- NOTE | 2017-09-09 03:25 | CT ---
EXAM: CT Chest Without Intravenous Contrast CLINICAL HISTORY: 57 years old, female; Pain; Chest pain; Additional info: Chest pain, fever, SOB, coughing TECHNIQUE: Axial computed tomography images of the chest without intravenous contrast. All CT scans at this facility use one or more dose reduction techniques, viz.: automated exposure control; ma/kV adjustment per patient size (including targeted exams where dose is matched to indication; i.e. head); or iterative reconstruction technique. Coronal and sagittal reformatted images were created and reviewed. COMPARISON: CT - CHEST W/O CONTRAST 2016-07-02 08:14 FINDINGS: Limitations: Lack of intravenous contrast. Lungs: Early emphysematous changes. Minimal atelectasis/scarring. No consolidation. Few pulmonary nodules, up to 0.3 cm, stable. Pleural space: No pneumothorax. No significant effusion. Heart: Mild cardiomegaly. Trace focal pericardial effusion. Coronary artery calcifications. Thyroid: Heterogeneity of thyroid gland, grossly stable. Bones/joints: Mild degenerative changes of spine. No acute fracture. Soft tissues: Unremarkable. Vasculature: Mild enlargement of pulmonary trunk. Extensive atherosclerotic disease. Stent within right subclavian vein. Graft within right upper extremity. Lymph nodes: Several subcentimeter short axis mediastinal lymph nodes. Calcified mediastinal lymph node. Adrenals: Mild hypertrophy of adrenal glands. Kidneys and ureters: Atrophic kidneys. IMPRESSION: 1. No CT evidence of pneumonia. 2. Incidental/non-acute findings are described above.
--- NOTE | 2017-09-09 05:49 | HP ---
HISTORY OF PRESENT ILLNESS: The patient is 57 years old, who came to the emergency room because of fever, generalized weakness, was lethargic. She complained of shortness of breath. Also complained of productive cough with green to yellow phlegm, does complain of feeling nauseous and hoarseness of voice; complained of having some chest discomfort and complained of decreased appetite, complained of increasing pain in her right leg. PAST MEDICAL HISTORY: The patient does have, 1. History of hypertension. 2. End-stage renal disease, on hemodialysis. 3. Chronic anemia. 4. Peptic ulcer disease. 5. History of right carotid angioplasty. 6. Bilateral leg arterial bypass that was done recently in [facility]. ALLERGIES: SHE IS ALLERGIC TO CIPROFLOXACIN, HYDRALAZINE, AND VANCOMYCIN. MEDICATIONS AT HOME: She is on clonidine 0.2 twice a day, Zofran as needed, nifedipine 90 mg daily, metoprolol 100 daily, lisinopril 40 mg daily, Synthroid 75 mcg daily, labetalol 300 q.8, Plavix 75 daily. SOCIAL HISTORY: She lives with her son, used to be a heavy smoker in the past. REVIEW OF SYSTEMS: Significant for cough and congestion and shortness of breath. PHYSICAL EXAMINATION: GENERAL: She is awake, alert, looks pale; mild shortness of breath. VITAL SIGNS: She is afebrile, pulse 77, respirations 18, blood pressure 112/94. LUNGS: Bilateral few soft crackles and expiratory rhonchi. HEART: S1 and S2 audible. ABDOMEN: Soft and nontender. No rebound. No guarding. NEUROLOGIC: The patient is awake and alert, able to communicate. EXTREMITIES: Right leg has ulcer in the medial aspect of the francis. LABORATORY DATA: WBC 7.5, hemoglobin 10, hematocrit 33.8, and platelets 270. Chemistry, sodium 137, potassium 5.6, chloride 98, CO2 of 26, BUN 55, creatinine 7.0, blood sugar of 80. BNP is 216,000. Chest x-ray shows no active disease. ASSESSMENT AND PLAN: 1. Shortness of breath, secondary to fluid overload. 2. Congestive heart failure. 3. End-stage renal disease, on hemodialysis. 3. Hypertension. 4. Ischemic right leg ulcer. 5. Peripheral vascular disease, status post bypass surgery. PLAN: We will start the patient on her usual medication. CT scan of the chest has been requested to evaluate if patient is fluid overload or she has infiltrate, because there is no leukocytosis, neither the patient has fever, although she states she has fever at home. Start her on nebulizer treatment. Order her antihypertensive. Nephrology consult by Dr. Smith and ID consult by Dr. Radford has been requested. Brittany Coffman MD
[2017-09-09] MEDS ORDERED: Lidocaine 2% Jelly (Uro-Jet) TOP ONE (08:20)
[2017-09-09] MEDS ORDERED: NIFEdipine 90 mg ER Tab PO SCH (10:00)
[2017-09-09] MEDS: Levothyroxine 75 MCG TAB PO SCH (10:42)
--- NOTE | 2017-09-09 15:15 | PN ---
DATE: SUBJECTIVE: The patient is currently seen sitting up in bed. She still continues to complain of heavy breathing and chest congestion. She remains on inhalation therapy for acute bronchitis. She had received initial antibiotic therapy on the day of admission, but none since. She is awaiting further evaluation. MEDICATIONS: Medication list reviewed. The patient is currently on clonidine, Ecotrin, Norvasc, Plavix, Synthroid, Trandate, Xopenex, and Zofran p.r.n. She is status post one dose of Rocephin and one dose of Zithromax. OBJECTIVE: INTAKE AND OUTPUT: Not charted. VITAL SIGNS: Blood pressure is as high as 203/92 today, temperature 100, pulse is 88, respiratory rate is 20, and oxygen saturation is 99%. HEENT: Exam shows her be normocephalic, atraumatic. Conjunctivae are pale. Sclerae nonicteric. NECK: Supple. No neck vein distention. CHEST: Scattered rhonchi and wheezing. No rales. CARDIOVASCULAR: Regular rate and rhythm. Soft systolic murmur at left lower sternal border. No S3. No S4. No rub. ABDOMEN: Soft. Bowel sounds normal. No rebound or guarding. No masses. EXTREMITIES: Show dressing over her right lower leg covering an ulcer. Diminished lower extremity pulses. Nonfunctioning AV fistula of her upper extremity. Positive PermCath chest wall. LABORATORY DATA AND IMAGING STUDIES: No labs done today. Microbiology, no results back. ASSESSMENT: 1. Upper respiratory tract infection past bronchitis. The patient received empiric antibiotic therapy, but none since admission yesterday. No evidence for pneumonia. No evidence on chest x-ray for CHF. I will leave the decisions regarding antibiotic therapy to her primary care physician, Dr. Coffman. The patient will continue inhalation therapy. 2. End-stage renal disease: The patient will continue routine dialysis, she is scheduled for tomorrow. 3. History of congestive heart failure, none at present. 4. History of chronic obstructive pulmonary disease: The patient will continue inhalation therapy. 5. History of pulmonary hypertension, currently stable. 6. History of peripheral vascular disease status post vascular bypass of her lower extremity with poor healing ulcer of her right leg. The patient will be seen by Podiatry. 7. Hypothyroidism: The patient will continue thyroid replacement therapy. 8. History of anemia: The patient will receive Aranesp and iron per protocol on dialysis. 9. Hypertension: Blood pressure control has always been difficult. The patient will continue present medication. 10. History of secondary hyperparathyroidism: The patient will continue binder therapy. She will continue renal diet. Phosphorus level was significantly elevated at 7.9. The patient will be started back on binder therapy. PLAN: 1. Perhaps additional antibiotic therapy for possible bronchitis and exacerbation of COPD. 2. Check all cultures. 3. Continue all outpatient blood pressure medications. 4. Hemodialysis tomorrow as per her routine. Sampson Hutchins MD
--- NOTE | 2017-09-09 15:16 | CARD ---
APPROVED REPORT EKG Measurement Heart [id number] CT [id number] <Conclusion> Normal sinus rhythm Possible Left atrial enlargement Left ventricular hypertrophy with repolarization abnormality Abnormal ECG
[2017-09-09] MEDS: Promethazine/Cod 6.25mg-10mg/5ml Syr UD PO PRN ×2 (16:35→21:22)
[2017-09-09] MEDS: HYDROmorphone 0.5 mg/0.5 ml ISec IM PRN (18:15)
[2017-09-09] MEDS: Albuterol-Ipratrop 3 mg / 0.5 (3 ml) UD IH SCH (20:10)
--- NOTE | 2017-09-09 23:19 | PN ---
DATE: SUBJECTIVE: The patient is 57-year-old, seen and examined, complain of runny, stuffy nose, cough and congestion. Complain of chills and having nausea. No abdominal pain or discomfort. PHYSICAL EXAMINATION: VITAL SIGNS: She is afebrile, pulse 86, respirations 20 and blood pressure 164/90. LUNGS: Bilateral fair airflow. No rhonchi or crackle. HEART: S1 and S2 audible. ABDOMEN: Soft and nontender. No rebound. No guarding. NEUROLOGIC: She is awake, alert, and able to communicate. Right francis is in the dressing, was dressed by Podiatry resident. LABORATORY DATA: Blood cultures are negative. CT scan of the chest is unremarkable. No evidence of pneumonia. ASSESSMENT: 1. Asthmatic bronchitis. 2. Chronic obstructive pulmonary disease exacerbation. 3. Low-grade fever, etiology unclear. Cultures are negative. CT scan is negative. 4. Uncontrolled hypertension. 5. End-stage renal disease on hemodialysis. PLAN: We will start the patient on Claritin. Start her on Phenergan with codeine. She has been started on Xopenex. We will follow up with the patient in a.m. If she is stable, we will make discharge plan. Brittany Coffman MD
--- NOTE | 2017-09-09 23:42 | CP.PCM.CON ---
<Trevor De La Rosa - Last Filed: 09/09/17 23:39> History of Present Illness - History of Present Illness History of Present Illness: 57 year old female with PMH CHF, HTN, COPD seen at bedside for chronic wound of her right leg. Patient states that wound is very painful to touch. She is seen to be AAO x 3 and NAD resting in bed. Patient states that she came in to the hospital through the ED yesterday for new onset SOB, N/C/F/V. Patient states that overall today she is feeling better. Patient denies any further pedal complaints at this time. Denies pain to posterior calfs when they are squeezed. Review of Systems - Review of Systems Review of Systems: ROS as per HPI. All other systems reviewed and found to be negative Past Patient History - Infectious Disease Hx of Infectious Diseases: None - Tetanus Immunizations Tetanus Immunization: Unknown - Past Social History Smoking Status: Former Smoker - CARDIAC Hx Cardiac Disorders: Yes Hx Angina: Yes Hx Cardia Arrhythmia: Yes Hx Circulatory Problems: Yes Hx Congestive Heart Failure: Yes Hx Heart Murmur: No Hx Heart Transplant: No Hx Hypertension: Yes Hx Internal Defibrillator: No Hx Peripheral Edema: Yes Hx Peripheral Vascular Disease: Yes (pvd, has pain when amb. numbness) - PULMONARY Hx Respiratory Disorders: Yes Hx Asthma: Yes Hx Chronic Obstructive Pulmonary Disease (COPD): Yes - NEUROLOGICAL HX Cerebrovascular Accident: Yes Hx Migraine: Yes - HEENT Hx HEENT Problems: Yes (hard of hearing) - RENAL Hx Chronic Kidney Disease: Yes Hx Dialysis: Yes (TTS) Date of Last Dialysis Treatment: 09/08/17 Hx Renal Failure: Yes - ENDOCRINE/METABOLIC Hx Hypothyroidism: Yes - HEMATOLOGICAL/ONCOLOGICAL Hx Blood Disorders: Yes Hx Anemia: Yes Other/Comment: Hx. Blood transfusions - INTEGUMENTARY Hx Dermatological Problems: No (non healing sugical wound to right ankle) - MUSCULOSKELETAL/RHEUMATOLOGICAL Hx Falls: Yes Hx Unsteady Gait: Yes - GASTROINTESTINAL Hx Gastrointestinal Disorders: Yes (FECAL IMPACTION,CONSTIPATION,POOR APPETITE, GASTRITIS) - GENITOURINARY/GYNECOLOGICAL Hx Genitourinary Disorders: No - PSYCHIATRIC Hx Psychophysiologic Disorder: Yes Hx Anxiety: Yes - SURGICAL HISTORY Hx Cardiac Catheterization: Yes Hx Coronary Stent: Yes - ANESTHESIA Hx Anesthesia: Yes Hx Anesthesia Reactions: No Hx Malignant Hyperthermia: No Meds Allergies/Adverse Reactions: Allergies Allergy/AdvReac Type Severity Reaction Status Date / Time ciprofloxacin Allergy RASH Verified 09/05/17 17:13 hydralazine Allergy RASH Verified 09/05/17 17:13 vancomycin Allergy SHORTNESS Verified 09/05/17 17:[address] dye Allergy RASH Uncoded 09/05/17 17:13 - Medications Medications: Current Medications Albuterol/Ipratropium (Duoneb 3 Mg/0.5 Mg (3 Ml) Ud) 3 ml [facility] [id number] [facility] Last Admin: 09/09/17 20:10 Dose: Not Given Amlodipine Besylate (Norvasc) 10 mg PO DAILY [facility] Last Admin: 09/09/17 10:42 Dose: 10 mg Aspirin (Ecotrin) 81 mg PO DAILY [facility] Last Admin: 09/09/17 10:42 Dose: 81 mg Clonidine HCl (Catapres) 0.2 mg PO BID [facility] Last Admin: 09/09/17 17:21 Dose: 0.2 mg Clopidogrel Bisulfate (Plavix) 75 mg PO DAILY [facility] Last Admin: 09/09/17 10:42 Dose: 75 mg Hydromorphone HCl (Dilaudid) 1 mg IM Q4H PRN PRN Reason: Pain, severe (8-10) Last Admin: 09/09/17 18:15 Dose: 1 mg Labetalol HCl (Trandate) 300 mg PO Q8 [facility] Last Admin: 09/09/17 21:16 Dose: 300 mg Levalbuterol HCl (Xopenex) 1.25 mg IH [id number] [facility] Last Admin: 09/09/17 20:09 Dose: 1.25 mg Levalbuterol HCl (Xopenex) 0.63 mg IH [id number] PRN PRN Reason: Shortness of Breath Levothyroxine Sodium (Synthroid) 75 mcg PO DAILY [facility] Last Admin: 09/09/17 10:42 Dose: 75 mcg Loratadine (Claritin) 10 mg PO DAILY [facility] Last Admin: 09/09/17 16:35 Dose: 10 mg Ondansetron HCl (Zofran Inj) 4 mg IVP Q6 PRN PRN Reason: Nausea/Vomiting Last Admin: 09/09/17 14:00 Dose: 4 mg Promethazine HCl/Codeine (Phenergan/Codeine Oral Syrup) 5 ml PO Q4H PRN PRN Reason: Cough and congestion Last Admin: 09/09/17 21:22 Dose: 5 ml Sevelamer HCl (Renagel) 800 mg PO TID [facility] Last Admin: 09/09/17 17:21 Dose: 800 mg Physical Exam - Constitutional Appears: Well, Non-toxic, No Acute Distress - Extremities Exam Additional comments: LE focused exam: Vasc: DP/PT pulses palpable 2/4 b/l. Skin temperature warm to warm from proximal to distal. CFT < 3 seconds to all digits b/l. 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 Base is fibrogranular. Minimal periwound erythema. No malodor, no purulence, no tunneling, tracking, undermining, probe to bone or fluctuance. Otherwise no open lesions, wounds, maceration, xerosis, abnormal pigmentation or abnormal growths noted to b/l LE MSK: Severe POP to right leg ulceration - Neurological Exam Neurological exam: Alert, Oriented x3 - Psychiatric Exam Psychiatric exam: Normal Affect, Normal Mood Results - Vital Signs Recent Vital Signs: Last Vital Signs Temp 99.5 F 09/09/17 16:00 Pulse 95 H 09/09/17 21:16 Resp 20 09/09/17 16:00 BP 164/69 H 09/09/17 21:16 Pulse Ox 98 09/09/17 16:00 - Labs Result Diagrams: 09/08/17 14:55 09/08/17 14:55 Assessment & Plan - Assessment and Plan (Free Text) Assessment: 57 year old female with PMHx HTN, CHF, COPD seen at bedside for 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 Blanton Afebrile, absent leukocytosis Lidocaine 2% gel ordered and applied prior to putting on new dressing 1 mg dilaudid ordered to be given before dressing changes Dressing cleansed with saline and dressed with lidocaine gel, adaptic, DSD Podiatry will continue to follow while patient in house - Date & Time Date: 09/09/17 Time: 05:30 <Wendy Blanton - Last Filed: 09/10/17 14:32> Meds - Medications Medications: Current Medications Albuterol/Ipratropium (Duoneb 3 Mg/0.5 Mg (3 Ml) Ud) 3 ml [facility] [id number] [facility] Last Admin: 09/10/17 13:22 Dose: 3 ml Amlodipine Besylate (Norvasc) 10 mg PO DAILY [facility] Last Admin: 09/10/17 09:57 Dose: 10 mg Aspirin (Ecotrin) 81 mg PO DAILY [facility] Last Admin: 09/10/17 09:57 Dose: 81 mg Clonidine HCl (Catapres) 0.2 mg PO BID [facility] Last Admin: 09/10/17 09:49 Dose: Not Given Clopidogrel Bisulfate (Plavix) 75 mg PO DAILY [facility] Last Admin: 09/10/17 09:58 Dose: 75 mg Hydromorphone HCl (Dilaudid) 1 mg IM Q4H PRN PRN Reason: Pain, severe (8-10) Last Admin: 09/10/17 10:14 Dose: 1 mg Labetalol HCl (Trandate) 300 mg PO Q8 [facility] Last Admin: 09/10/17 13:37 Dose: 300 mg Levalbuterol HCl (Xopenex) 1.25 mg IH [id number] [facility] Last Admin: 09/10/17 07:54 Dose: Not Given Levalbuterol HCl (Xopenex) 0.63 mg IH [id number] PRN PRN Reason: Shortness of Breath Levothyroxine Sodium (Synthroid) 75 mcg PO DAILY [facility] Last Admin: 09/10/17 09:58 Dose: 75 mcg Loratadine (Claritin) 10 mg PO DAILY [facility] Last Admin: 09/10/17 09:57 Dose: 10 mg Ondansetron HCl (Zofran Inj) 4 mg IVP Q6 PRN PRN Reason: Nausea/Vomiting Last Admin: 09/10/17 10:14 Dose: 4 mg Promethazine HCl/Codeine (Phenergan/Codeine Oral Syrup) 5 ml PO Q4H PRN PRN Reason: Cough and congestion Last Admin: 09/10/17 13:33 Dose: 5 ml Sevelamer HCl (Renagel) 800 mg PO TID [facility] Last Admin: 09/10/17 13:34 Dose: 800 mg Results - Vital Signs Recent Vital Signs: Last Vital Signs Temp 99.7 F H 01/04/18 08:02 Pulse 85 09/10/17 08:02 Resp 19 09/10/17 08:02 BP 160/74 H 09/10/17 09:57 Pulse Ox 96 09/10/17 08:02 - Labs Result Diagrams: 09/10/17 06:34 09/10/17 06:34 Attending/Attestation - Attestation I have personally seen and examined this patient.: Yes I have fully participated in the care of the patient.: Yes I have reviewed all pertinent clinical information: Yes
[2017-09-10] MEDS: Albuterol-Ipratrop 3 mg / 0.5 (3 ml) UD IH SCH ×4 (01:00→20:19)
[2017-09-10] MEDS: Promethazine/Cod 6.25mg-10mg/5ml Syr UD PO PRN ×5 (04:31→23:07)
[2017-09-10] MEDS ORDERED: Darbepoetin Alfa 60 mcg/ml Inj IVP ONE (06:43)
[2017-09-10 06:58] LABS: BASO # 0.04 K/mm3 (0.0-2.0); BASO % 0.9 % (0.0-3.0); EOS # 0.1 (0.0-0.7); EOS % 2.1 % (1.5-5.0); GRAN # 2.56 (1.4-6.5); GRAN % 59.3 % (50.0-68.0); HEMOGLOBIN 8.8 g/dL (12.0-16.0); LYMPH % 23.1 % (22.0-35.0); MEAN CELL VOLUME 95.3 fl (80.0-105.0); MEAN CORPUSCULAR HEMOGLOBIN 27.8 pg (25.0-35.0); MEAN CORPUSCULAR HGB CONC 29.2 g/dl (31.0-37.0); MEAN PLATELET VOLUME 10.1 fl (7.0-11.0); MONO # 0.6 (0.1-0.6); MONO % 14.6 % (1.0-6.0); RBC 3.16 10^6/uL (3.5-6.1); RED CELL DISTRIBUTION WIDTH 15.4 % (11.5-14.5); WHITE BLOOD COUNT 4.3 10^3/ul (4.5-11.0)
[2017-09-10 07:21] LABS: ALB/GLOB RATIO 1.5 (1.1-1.8); ALBUMIN 3.7 g/dL (3.0-4.8); CALCIUM 9.3 mg/dL (8.4-10.5)
[2017-09-10] MEDS: Levalbuterol 1.25 MG/3 ML Inhal Soln UD IH SCH ×4 (07:26→22:17)
[2017-09-10] MEDS: Levothyroxine 75 MCG TAB PO SCH (09:58)
[2017-09-10] MEDS: HYDROmorphone 0.5 mg/0.5 ml ISec IM PRN ×3 (10:14→23:05)
--- NOTE | 2017-09-10 10:25 | PN ---
DATE: SUBJECTIVE: The patient is currently seen completing dialysis, 2.5 liters of fluid have been removed. The patient's breathing appears to be improved. She has less chest congestion. She remains on inhalation therapy for her bronchitis. She is status post antibiotics given in the emergency room only. MEDICATIONS: Medication list reviewed. The patient is on clonidine, Claritin, Dilaudid, DuoNeb, Ecotrin, Norvasc, Phenergan with Codeine, Plavix, Renagel, Synthroid, Trandate, Xopenex and Zofran p.r.n. OBJECTIVE: INTAKE/OUTPUT: Intake 1080, output zero. VITAL SIGNS: Blood pressure 166/66, temperature 99.7 with a T-max of 100.1. Pulse is 85, respiratory rate is 19. HEENT: Shows her be normocephalic, atraumatic. Conjunctivae are pale. Sclerae are nonicteric. NECK: Supple. No neck vein distention. CHEST: Clear with scattered rhonchi and wheezing bilaterally. No decreased breath sounds at the bases. No rales. CARDIOVASCULAR: Shows a regular rate and rhythm with soft systolic murmur, left lower sternal border. No ST no S4. No rub. ABDOMEN: Soft. Bowel sounds normal. No rebound. No guarding or masses. EXTREMITIES: Show dressing over her right lower leg covering a leg ulcer. Diminished lower extremity pulses. Nonfunctioning AV fistula, a PermCath in her chest. LABORATORY DATA AND IMAGING STUDIES: CBC, white blood cell count today 4.3, hemoglobin down to 8.8. Platelet count is 204,000. Chemistries today showed potassium of 5.5 which is predialysis. Electrolytes were normal. BUN 37, creatinine 5.4. Calcium 9.3, phosphorus is low at 7.1. The patient is back on binders. Magnesium level 2.0. Microbiology: Blood cultures negative at 24 hours. No sputum available for culture. ASSESSMENT: 1. Upper respiratory tract infection with bronchitis. The patient received empiric antibiotic therapy, perhaps she should be continued on oral antibiotic therapy for bronchitis. No evidence for pneumonia clinically or on chest x-ray, nor did she have evidence for pneumonia on chest CT scan. The patient will continue inhalation therapy. She appears to be improving. 2. End-stage renal disease. The patient will continue routine dialysis. She is on a Thursday, , Thursday schedule. If necessary, a fourth dialysis treatment can be added. 3. History of congestive heart failure, none at present. 4. History of chronic obstructive pulmonary disease with exacerbation likely secondary to bronchitis. The patient will continue inhalation therapy. No role for steroids. 5. History of pulmonary hypertension, stable. 6. History of peripheral vascular disease, status post vascular bypass of her lower extremities with poor healing ulcer of her right lower leg. The patient will be seen by Podiatry. The patient understands that there is possibility for leg amputation if the ulcer does not heal. 7. Hypothyroidism. The patient will continue thyroid replacement therapy. 8. History of anemia. The patient will receive Aranesp per protocol and iron per protocol on dialysis. 9. Hypertension, labile with difficulty in controlling hypertension. The patient will continue on present medication. I will try and keep her on her dry weight. 10. History of secondary hyperparathyroidism. The patient will continue binder therapy and a renal diet. Phosphorus is down to 7.1. With compliance, she should be able to lower her phosphorus level to less than 5.5. PLAN: 1. Continue inhalation therapy for COPD exacerbation. Further decision regarding antibiotic therapy as per Dr. Coffman. 2. Continue all outpatient blood pressure medications. 3. Continue dialysis per protocol Thursday, , Thursday. Sampson Hutchins MD
--- NOTE | 2017-09-10 11:44 | CP.PCM.PN ---
Subjective - Date & Time of Evaluation Date of Evaluation: 09/10/17 Time of Evaluation: 11:34 Objective - Vital Signs/Intake and Output Vital Signs (last 24 hours): Temp Pulse Resp BP Pulse Ox 99.7 F H 85 19 160/74 H 96 09/10/17 08:02 09/10/17 08:02 09/10/17 08:02 09/10/17 09:57 09/10/17 08:02 - Medications Medications: Current Medications Albuterol/Ipratropium (Duoneb 3 Mg/0.5 Mg (3 Ml) Ud) 3 ml IH [id number] [facility] Last Admin: 09/10/17 07:27 Dose: Not Given Amlodipine Besylate (Norvasc) 10 mg PO DAILY [facility] Last Admin: 09/10/17 09:57 Dose: 10 mg Aspirin (Ecotrin) 81 mg PO DAILY [facility] Last Admin: 09/10/17 09:57 Dose: 81 mg Clonidine HCl (Catapres) 0.2 mg PO BID [facility] Last Admin: 09/10/17 09:49 Dose: Not Given Clopidogrel Bisulfate (Plavix) 75 mg PO DAILY [facility] Last Admin: 09/10/17 09:58 Dose: 75 mg Hydromorphone HCl (Dilaudid) 1 mg IM Q4H PRN PRN Reason: Pain, severe (8-10) Last Admin: 09/10/17 10:14 Dose: 1 mg Labetalol HCl (Trandate) 300 mg PO Q8 [facility] Last Admin: 09/10/17 06:07 Dose: Not Given Levalbuterol HCl (Xopenex) 1.25 mg IH [id number] [facility] Last Admin: 09/10/17 07:54 Dose: Not Given Levalbuterol HCl (Xopenex) 0.63 mg IH [id number] PRN PRN Reason: Shortness of Breath Levothyroxine Sodium (Synthroid) 75 mcg PO DAILY [facility] Last Admin: 09/10/17 09:58 Dose: 75 mcg Loratadine (Claritin) 10 mg PO DAILY [facility] Last Admin: 09/10/17 09:57 Dose: 10 mg Ondansetron HCl (Zofran Inj) 4 mg IVP Q6 PRN PRN Reason: Nausea/Vomiting Last Admin: 09/10/17 10:14 Dose: 4 mg Promethazine HCl/Codeine (Phenergan/Codeine Oral Syrup) 5 ml PO Q4H PRN PRN Reason: Cough and congestion Last Admin: 09/10/17 10:15 Dose: 5 ml Sevelamer HCl (Renagel) 800 mg PO TID [facility] Last Admin: 09/10/17 09:58 Dose: 800 mg
--- NOTE | 2017-09-10 13:32 | PN ---
DATE: 09/10/2017 SUBJECTIVE: This is a 57-year-old female with end-stage renal disease, seen at bedside for extremely painful ulceration of her right lower extremity. The patient requires narcotic medications to help to deal with the pain from this ulceration. The patient dressing are clean, dry and intact. PHYSICAL EXAMINATION: VITAL SIGNS: Reviewed. Her temperature last night was 99.7, the blood pressure is 160/74, and the respirations are 19. EXTREMITIES: Clinically, the patient has 1/4 palpable pedal pulses bilateral. Temperature gradient to the feet is grossly within normal limits and she does have capillary refill to both of her lower extremity. She has an ulceration on the medial calf of her right lower extremity measuring approximately 5 cm x 4 cm x 0.2 cm. The wound bed is a mix of granulation and some fibrous tissue. There is no necrosis. There is no pus. There was minimal to moderate amount of drainage on the dressing and there is extreme amount of pain with dressing change and with any type of palpitation to that wound. MEDICATIONS: Noted on the MAR. She is presently on Plavix and there is no antibiotics at this time. LABORATORY DATA: The patient's labs are reviewed. Her white blood cell count is 4.3. The H and H is 8.8 and 30.1 and her platelets are 204. The patient's chemistry shows sodium of 139 with potassium of 5.5, BUN and creatinine are 37 and 5.4, and the glucose is 7.1. The patient's BNP was 216,000. The patient's microbiology shows her blood cultures are no growth at 24 hours. ASSESSMENT: Right lower extremity leg ulcer most likely secondary to calciphylaxis. PLAN OF TREATMENT: Since we cannot really get into clean this dressing and the patient is in house, we are going to take her down to the OR. So, we could do a thorough cleansing of the wound and at that time, we will place the PuraPly, semisynthetic collagen dressing over the wound to help on induce healing. This dressing will also has antibiotic base, which will then also keep the bioburden and bacteria down in this wound. The patient is scheduled for OR on Thursday at 4 o'clock in the afternoon. This was discussed with the patient and with Dr. Coffman. Dressing change was done. Wendy Blanton DPM
--- NOTE | 2017-09-10 19:17 | PN ---
DATE: SUBJECTIVE: The patient is seen and examined, complaining of pain in the right francis, complaining of pain in the back, complaining of headache, complaining of shortness of breath. PHYSICAL EXAMINATION VITAL SIGNS: She had temperature of 99.7, pulse 85, respirations 19, blood pressure 166/66. LUNGS: Bilateral soft crackles. HEART: S1 and S2 audible. ABDOMEN: Soft, nontender. No rebound. No guarding. NEUROLOGIC: She is awake, alert, oriented, able to communicate. LABORATORY EXAM: WBC 12.3, hemoglobin 8.8, hematocrit 30, platelets 204. Chemistry, sodium 139, potassium 5.5, chloride 99, CO2 of 26, BUN 37, creatinine 5.4, blood sugar 86. Flu test is negative. ASSESSMENT: 1. Chronic obstructive pulmonary disease exacerbation. 2. Hypertension. 3. End-stage renal disease, on hemodialysis. 4. Right lower leg ulcer probably secondary to calciphylaxis as per Dr. Blanton. 5. Asthmatic bronchitis. PLAN: Continue the patient on current medications. She is on Dilaudid. She is on Loratadine, nebulizer treatment. Discussed with Dr. Blanton. She is not a candidate hyperbaric treatment. She will arrange for skin graft for the right francis ulcer and will be scheduled on Thursday. We will add small dose of Solu-Medrol because the patient is having bilateral wheezing. Brittany Coffman MD
[2017-09-10] MEDS: MethylPREDNISolone 40 mg Vial IV SCH (21:27)
[2017-09-11] MEDS: Albuterol-Ipratrop 3 mg / 0.5 (3 ml) UD IH SCH ×4 (02:10→21:05)
[2017-09-11] MEDS: Levalbuterol 1.25 MG/3 ML Inhal Soln UD IH SCH ×4 (02:14→19:32)
[2017-09-11] MEDS: Promethazine/Cod 6.25mg-10mg/5ml Syr UD PO PRN (09:41)
[2017-09-11] MEDS: MethylPREDNISolone 40 mg Vial IV SCH ×2 (09:42→22:34)
[2017-09-11] MEDS: Levothyroxine 75 MCG TAB PO SCH (09:44)
--- NOTE | 2017-09-11 15:18 | PN ---
DATE: SUBJECTIVE: The patient is a 57-year-old who complained of cough, congestion, wheezing, and complained of headache, also complained of right francis pain. PHYSICAL EXAMINATION: VITAL SIGNS: She is afebrile, pulse 79, respirations 19, and blood pressure 183/79. LUNGS: Bilateral expiratory rhonchi, soft crackle and wheezing. HEART: S1 and S2 audible. ABDOMEN: Soft and nontender. No rebound, no guarding. NEUROLOGIC: The patient is awake, alert, oriented, and able to communicate. LABORATORY DATA: is negative. CT scan of the chest is negative. ASSESSMENT: 1. Asthmatic bronchitis. 2. Probably pulmonary edema. 3. End-stage renal disease, on hemodialysis. 4. Hypertension. 5. Hyperlipidemia. PLAN: I will start the patient on IV steroids. She is on nebulizer treatment. We will start her on cough medicine. She was on Rocephin, I will switch to p.o. doxycycline. Dr. Blanton is taking care of the patient's right francis wound. According to her, this could become and painful ulcer, but she can try debridement, it cannot be done by the bedside. The patient is scheduled for OR and possible synthetic graft implantation in OR, so we will follow up this patient closely. Dr. Reyes to recover the patient in a.m. Brittany Coffman MD
[2017-09-11] MEDS: Nitroglycerin 2% Ointment Foilpak UD TOP SCH (17:05)
[2017-09-11] MEDS: Promethazine/Cod 6.25mg-10mg/5ml Syr UD PO SCH ×2 (17:06→17:51)
--- NOTE | 2017-09-11 18:28 | PN ---
DATE: SUBJECTIVE: A 57-year-old female seen at bedside for continued evaluation and management of an exquisitely painful arterial ulcerations to the right lower extremity. The patient states that the lidocaine applied to the wound before dressing changes helps a great deal. The dressing presents clean, dry and intact. PHYSICAL EXAMINATION VITAL SIGNS: Include temperature of 98.7, pulse rate of 79, blood pressure of 183/79 and respiratory rate 19. LABORATORY FINDINGS: Reveal a white count of 4.3, hemoglobin of 8.8, hematocrit of 30.1 and platelet count of 204. OBJECTIVE: EXTREMITIES: Weakly palpable pedal pulses noted bilaterally, protective sensation intact using 5.07 g monofilament wire testing bilaterally. There is a full-thickness ulceration located on the medial calf of the right lower extremity that measures approximately 5 cm x 4 cm x 0.2 cm. The base of the wound is a mixture of granulation and fibrotic tissue. There is no purulence. There is no malodor. There is no necrosis. The wound does not probe to tendon or bone, but there is extreme pain exhibited upon dressing changes or any type palpation. The patient even experiences pain when saline solution was applied. 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 PLAN: The patient's wound was cleansed gently with normal sterile saline and application of a mixture of hydrogel and lidocaine was applied with a nonadherent sterile gauze and dry sterile dressing. The patient is scheduled for excisional debridement in the OR on Thursday at [address] Blanton. The patient will be seen and followed daily. Dougie Forte DPM
--- NOTE | 2017-09-11 18:29 | PN ---
DATE: 09/11/2017 SUBJECTIVE: The patient is seen sitting in bed. She is awake. She is alert. She is comfortable. She reports she is still coughing. She is still making up some phlegm. She also complains of shortness of breath. PHYSICAL EXAMINATION: GENERAL: Middle-aged lady sitting in bed. VITAL SIGNS: Blood pressure 183/79, heart is 79, respiratory rate 18-19, temperature 98.7. HEENT: Normocephalic, atraumatic, positive pallor. NECK: Supple, no JVD. LUNGS: Bilateral rhonchi, bilateral wheezing, no rales. CARDIAC: S1 and S2, regular rate and rhythm, no murmur, no rub. ABDOMEN: Soft, nondistended, nontender, bowel sounds present. EXTREMITIES: No lower extremity edema. INTAKE AND OUTPUT: Not charted. LABORATORY DATA: WBC 4, hemoglobin 8.8, hematocrit 30, platelets 204. Sodium 139, potassium 5.5, chloride 99, CO2 of 26, BUN 37, creatinine 5.4, glucose 86, calcium 9.3, phosphorus 7.1, magnesium 2.0, AST 40, ALT 32. Blood cultures, no growth. DIAGNOSTIC STUDIES: CT of the chest, mild enlargement of pulmonary trunk, extensive atherosclerotic disease, stent in the right subclavian vein, lungs showing early emphysematous changes, several pulmonary nodules. CURRENT MEDICATIONS: List reviewed. ASSESSMENT: 1. Upper respiratory infection, bronchitis. 2. End-stage renal disease. 3. Severe hypertension. 4. Congestive heart failure. 5. Chronic obstructive pulmonary disease. 6. Pulmonary hypertension. 7. Peripheral vascular disease. 8. Hypothyroidism. 9. Anemia of chronic kidney disease, latest hemoglobin is 8.8, monitor closely. 10. Secondary hyperparathyroidism. PLAN: 1. Dialysis again tomorrow. 2. Monitor H&H. 3. Continue respiratory treatments. 4. Continue antibiotics. 5. Continue current antihypertensives. 6. Increased ultrafiltration on dialysis as tolerated. Tamanna Smith MD
[2017-09-11] MEDS: HYDROmorphone 0.5 mg/0.5 ml ISec IM PRN (21:05)
[2017-09-12] MEDS: Nitroglycerin 2% Ointment Foilpak UD TOP SCH ×5 (00:01→23:26)
[2017-09-12] MEDS: Albuterol-Ipratrop 3 mg / 0.5 (3 ml) UD IH SCH ×3 (01:35→19:56)
[2017-09-12] MEDS: Levalbuterol 1.25 MG/3 ML Inhal Soln UD IH SCH ×4 (01:38→19:56)
[2017-09-12] MEDS ORDERED: Labetalol 5 mg/ml Inj 20ML IV ONE (02:27)
[2017-09-12] MEDS: Promethazine/Cod 6.25mg-10mg/5ml Syr UD PO SCH ×5 (03:24→23:30)
[2017-09-12 07:05] LABS: BASO # 0.01 K/mm3 (0.0-2.0); BASO % 0.3 % (0.0-3.0); GRAN # 2.8 (1.4-6.5); GRAN % 78.4 % (50.0-68.0); HEMOGLOBIN 9.6 g/dL (12.0-16.0); LYMPH # 0.6 (1.2-3.4); LYMPH % 17.9 % (22.0-35.0); MEAN CELL VOLUME 93.3 fl (80.0-105.0); MEAN CORPUSCULAR HEMOGLOBIN 27.8 pg (25.0-35.0); MEAN CORPUSCULAR HGB CONC 29.8 g/dl (31.0-37.0); MEAN PLATELET VOLUME 11.1 fl (7.0-11.0); MONO # 0.1 (0.1-0.6); MONO % 3.4 % (1.0-6.0); RBC 3.45 10^6/uL (3.5-6.1); RED CELL DISTRIBUTION WIDTH 15.4 % (11.5-14.5); WHITE BLOOD COUNT 3.6 10^3/ul (4.5-11.0)
[2017-09-12 07:53] LABS: ALB/GLOB RATIO 1.6 (1.1-1.8); ALBUMIN 4.1 g/dL (3.0-4.8); CALCIUM 9.8 mg/dL (8.4-10.5); MAGNESIUM 1.9 mg/dL (1.7-2.2)
[2017-09-12] MEDS: HYDROmorphone 0.5 mg/0.5 ml ISec IM PRN ×2 (10:13→21:16)
[2017-09-12] MEDS: MethylPREDNISolone 40 mg Vial IV SCH ×2 (10:16→21:16)
[2017-09-12] MEDS: Levothyroxine 75 MCG TAB PO SCH (10:21)
--- NOTE | 2017-09-12 10:24 | CP.PCM.PN ---
<Richelle Bains - Last Filed: 09/12/17 10:21> Subjective - Date & Time of Evaluation Date of Evaluation: 09/12/17 Time of Evaluation: 10:21 - Subjective Subjective: Podiatry Progress Note - Dr. Forte 57 year old female patient PMHx CHF, HTN, COPD, seen and evaluated at bedside for painful right leg wounds. Patient returning from HD at time of visit, hemodynamically stable and NAD. Patient reports increased pain to her left leg wounds. Denies any SOB currently. Patient is aware she is scheduled to go to the OR on Thursday with Dr. Blanton for debridement of wounds. Denies N/V/F/D/C. Objective - Vital Signs/Intake and Output Vital Signs (last 24 hours): Temp Pulse Resp BP Pulse Ox 99 F 70 22 200/95 H 97 09/11/17 16:00 09/12/17 02:36 09/11/17 16:00 09/12/17 03:24 09/11/17 16:00 Intake and Output: 09/12/17 09/12/17 06:59 18:59 Intake Total 1080 Output Total 100 Balance 980 - Medications Medications: Current Medications Albuterol/Ipratropium (Duoneb 3 Mg/0.5 Mg (3 Ml) Ud) 3 ml IH [id number] [facility] Last Admin: 09/12/17 01:35 Dose: 3 ml Amlodipine Besylate (Norvasc) 10 mg PO DAILY [facility] Last Admin: 09/11/17 09:40 Dose: 10 mg Aspirin (Ecotrin) 81 mg PO DAILY [facility] Last Admin: 09/11/17 09:40 Dose: 81 mg Clonidine HCl (Catapres) 0.2 mg PO BID [facility] Last Admin: 09/11/17 17:05 Dose: 0.2 mg Clopidogrel Bisulfate (Plavix) 75 mg PO DAILY [facility] Last Admin: 09/11/17 09:41 Dose: 75 mg Doxycycline Hyclate (Doryx) 100 mg PO Q12 [facility] PRN Reason: Protocol Last Admin: 09/11/17 22:43 Dose: 100 mg Hydromorphone HCl (Dilaudid) 1 mg IM Q4H PRN PRN Reason: Pain, severe (8-10) Last Admin: 09/11/17 21:05 Dose: 1 mg Labetalol HCl (Trandate) 300 mg PO Q8 [facility] Last Admin: 09/11/17 22:35 Dose: 300 mg Levalbuterol HCl (Xopenex) 1.25 mg IH [id number] [facility] Last Admin: 09/12/17 01:38 Dose: Not Given Levalbuterol HCl (Xopenex) 0.63 mg IH [id number] PRN PRN Reason: Shortness of Breath Levothyroxine Sodium (Synthroid) 75 mcg PO DAILY [facility] Last Admin: 09/11/17 09:44 Dose: 75 mcg Loratadine (Claritin) 10 mg PO DAILY [facility] Last Admin: 09/11/17 09:40 Dose: 10 mg Methylprednisolone (Solu-Medrol) 40 mg IV Q12 [facility] Last Admin: 09/11/17 22:34 Dose: 40 mg Nitroglycerin (Nitro-Bid 2% Oint) 1 ea TOP Q6 [facility] Last Admin: 09/12/17 05:39 Dose: 1 ea Ondansetron HCl (Zofran Inj) 4 mg IVP Q6 PRN PRN Reason: Nausea/Vomiting Last Admin: 09/10/17 10:14 Dose: 4 mg Promethazine HCl/Codeine (Phenergan/Codeine Oral Syrup) 5 ml PO Q6H [facility] Last Admin: 09/12/17 03:24 Dose: 5 ml Sevelamer HCl (Renagel) 800 mg PO TID [facility] Last Admin: 09/11/17 17:09 Dose: 800 mg - Labs Labs: 09/12/17 06:30 09/12/17 06:30 - Constitutional Appears: Well, Non-toxic, No Acute Distress - Extremities Exam Additional comments: LE focused exam: Vasc: DP/PT pulses palpable 2/4 b/l. Skin temperature warm to warm from proximal to distal. CFT < 3 seconds to all digits b/l. 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 Base is fibrogranular. Minimal periwound erythema. No malodor, no purulence, no tunneling, tracking, undermining, probe to bone or fluctuance. Otherwise no open lesions, wounds, maceration, xerosis, abnormal pigmentation or abnormal growths noted to b/l LE MSK: Severe POP to right leg ulceration - Neurological Exam Neurological Exam: Alert, Awake, Oriented x3 - Psychiatric Exam Psychiatric exam: Anxious Assessment and Plan - Assessment and Plan (Free Text) Assessment: 57 year old female with PMHx HTN, CHF, COPD with ulcerations to right leg secondary to calciphylaxis Plan: Patient seen and evaluated at bedside with attending, Reanna Afebrile, WBC decreasing @ 3.6 Wound cleansed with normal saline, lidocaine 2% gel applied, and dressed with adaptic DSD 1mg Dilaudid for dressing changes To OR Thursday09/14/16 @ 4PM for right leg wound debridement Podiatry will continue to follow patient while in house <Dougie Forte - Last Filed: 09/15/17 11:19> Objective - Vital Signs/Intake and Output Vital Signs (last 24 hours): Temp Pulse Resp BP Pulse Ox 98.1 F 76 20 198/76 H 93 L 09/15/17 08:01 09/15/17 10:30 09/15/17 08:01 09/15/17 10:30 09/15/17 08:01 Intake and Output: 09/15/17 09/15/17 06:59 18:59 Intake Total 300 Output Total 100 Balance 200 - Medications Medications: Current Medications Acetylcysteine (Acetylcysteine 20%) 3 ml IH BID [facility] Last Admin: 09/15/17 08:20 Dose: Not Given Amlodipine Besylate (Norvasc) 10 mg PO DAILY [facility] Last Admin: 09/15/17 10:30 Dose: 10 mg Aspirin (Ecotrin) 81 mg PO DAILY [facility] Last Admin: 09/14/17 09:30 Dose: 81 mg Clonidine HCl (Catapres) 0.3 mg PO TID [facility] Last Admin: 09/15/17 10:30 Dose: 0.3 mg Clopidogrel Bisulfate (Plavix) 75 mg PO DAILY [facility] Last Admin: 09/11/17 09:41 Dose: 75 mg Doxycycline Hyclate (Doryx) 100 mg PO Q12 [facility] PRN Reason: Protocol Last Admin: 09/15/17 10:30 Dose: 100 mg Hydromorphone HCl (Dilaudid) 1 mg IM Q4H PRN PRN Reason: Pain, severe (8-10) Last Admin: 09/15/17 02:29 Dose: 1 mg Labetalol HCl (Trandate) 300 mg PO Q8 [facility] Last Admin: 09/14/17 14:48 Dose: 300 mg Levalbuterol HCl (Xopenex) 1.25 mg IH [id number] [facility] Last Admin: 09/15/17 08:20 Dose: 1.25 mg Levalbuterol HCl (Xopenex) 0.63 mg IH [id number] PRN PRN Reason: Shortness of Breath Last Admin: 09/13/17 11:44 Dose: 0.63 mg Levothyroxine Sodium (Synthroid) 75 mcg PO DAILY [facility] Last Admin: 09/15/17 10:30 Dose: 75 mcg Loratadine (Claritin) 10 mg PO DAILY [facility] Last Admin: 09/14/17 09:30 Dose: 10 mg Methylprednisolone (Solu-Medrol) 20 mg IVP Q12 [facility] Last Admin: 09/15/17 09:46 Dose: 20 mg Metoprolol Tartrate (Lopressor) 25 mg PO BID [facility] Last Admin: 09/14/17 18:49 Dose: 25 mg Montelukast Sodium (Singulair) 10 mg PO HS [facility] Last Admin: 09/14/17 21:36 Dose: 10 mg Nitroglycerin (Nitro-Bid 2% Oint) 1 ea TOP Q6 [facility] Last Admin: 09/15/17 00:28 Dose: 1 ea Ondansetron HCl (Zofran Inj) 4 mg IVP Q6 PRN PRN Reason: Nausea/Vomiting Last Admin: 09/10/17 10:14 Dose: 4 mg Oxycodone/Acetaminophen (Percocet 5/325 Mg Tab) 1 tab PO Q4H PRN PRN Reason: Pain, severe (8-10) Stop: 09/18/17 08:50 Last Admin: 09/15/17 09:34 Dose: 1 tab Promethazine HCl/Codeine (Phenergan/Codeine Oral Syrup) 5 ml PO Q6H [facility] Last Admin: 09/14/17 19:03 Dose: 5 ml Sevelamer HCl (Renagel) 800 mg PO TID [facility] Last Admin: 09/15/17 10:30 Dose: 800 mg - Labs Labs: 09/12/17 06:30 09/12/17 06:30 Attending/Attestation - Attestation I have personally seen and examined this patient.: Yes I have fully participated in the care of the patient.: Yes I have reviewed all pertinent clinical information, including history, physical exam and plan: Yes
[2017-09-12] MEDS ORDERED: Lidocaine 2% Jelly (Uro-Jet) TOP ONE (10:26)
--- NOTE | 2017-09-12 11:46 | PN ---
DATE: SUBJECTIVE: The patient has no complaints of any chest pain. No shortness of breath or headache. PHYSICAL EXAMINATION: VITAL SIGNS: Temperature is 99, pulse of 70, blood pressure is 200/95, and respirations are 22. GENERAL: The patient is lying in bed, flat, comfortable. HEENT: No oral lesion. Anicteric sclerae. Moist mucosa. NECK: No JVD, adenopathy, or thyromegaly. CARDIOVASCULAR: S1 and S2, regular. No murmurs, rubs, or gallops. LUNGS: Clear to auscultation bilaterally. No wheeze, rales, or rhonchi. ABDOMEN: Bowel sounds are positive, soft, nontender and nondistended. EXTREMITIES: No cyanosis, clubbing or edema. LABORATORY DATA: White count of 3.6 and hemoglobin of 9.6. Creatinine is 5.9. ASSESSMENT: 1. End-stage renal disease, on hemodialysis. 2. Hypertension, uncontrolled. 3. Congestive heart failure, secondary to systolic dysfunction, stable. 4. Chronic obstructive pulmonary disease. 5. Pulmonary hypertension. 6. Peripheral vascular disease. 7. Bronchitis. 8. Hypothyroidism. 9. Anemia. 10. Right lower extremity 5 x 4 x 0.2 cm ulcer. PLAN: The patient is currently comfortable. The patient is being followed by Nephrology, Dr. Smith, I appreciated her input. The patient went for dialysis today. The patient is scheduled to go for an excisional debridement in the OR on Thursday. The patient's blood cultures are negative. The patient is getting local wound care. She is on amlodipine for hypertension. She is on Renagel for her secondary hyperparathyroidism and she is on Solu-Medrol. The patient is on labetalol for blood pressure, with the patient is going for dialysis today, the blood pressure should improve with fluid removal as well. Jose Richards MD
--- NOTE | 2017-09-12 15:20 | PN ---
DATE: 09/12/2017 SUBJECTIVE: The patient is seen sitting in bed. She is awake. She is alert. She is comfortable. She had dialysis early this morning. She still has some cough. She is bringing up scanty phlegm. PHYSICAL EXAMINATION: GENERAL: A middle-aged lady sitting in bed. VITAL SIGNS: Blood pressure 192/75, heart rate 63, respiratory rate 21, and temperature 98.2. HEENT: Normocephalic, atraumatic, positive pallor. NECK: Supple, no JVD. LUNGS: Bilateral rhonchi, expiratory and inspiratory wheeze. CARDIAC: S1 and S2, regular rate and rhythm, no murmur, no rub. ABDOMEN: Soft, nondistended, and nontender, bowel sounds present. EXTREMITIES: No lower extremity edema. Dressing of the right lower leg. LABORATORY DATA: WBC 3.6, hemoglobin 9.6, hematocrit 32, and platelets 236. Sodium 139, potassium 5.3, chloride 97, CO2 25, BUN 54, creatinine 5.9, glucose 141, calcium 9.8, phosphorus 7.3 magnesium 1.9, and albumin 4.1. CURRENT MEDICATIONS: Catapres 0.2 b.i.d., Claritin, Dilaudid, Doryx 100 q.12 hours, DuoNeb, Ecotrin, amlodipine 10, Plavix 75, Renagel, Solu-Medrol, Synthroid, and Trandate 300 q.8 hours. ASSESSMENT: 1. Upper respiratory tract infection/bronchitis. 2. Severe uncontrolled hypertension. 3. Chronic obstructive pulmonary disease. 4. Pulmonary hypertension. 5. End-stage renal disease. 6. Anemia of chronic kidney disease. 7. Peripheral vascular disease. PLAN: 1. Stable dialysis today. 2. Continue antibiotics for bronchitis. 3. The patient is scheduled for skin graft on Thursday. 4. Continue respiratory treatments. 5. Continue to taper steroids. Tamanna Smith MD
[2017-09-12] MEDS ORDERED: POLYETHYLENE GLYCOL 3350 17 GM/Dose PACKET PO STA (23:49)
[2017-09-13] MEDS: Albuterol-Ipratrop 3 mg / 0.5 (3 ml) UD IH SCH ×2 (01:01→07:56)
[2017-09-13] MEDS: HYDROmorphone 0.5 mg/0.5 ml ISec IM PRN ×3 (02:15→17:35)
[2017-09-13] MEDS: Promethazine/Cod 6.25mg-10mg/5ml Syr UD PO SCH ×4 (05:26→23:55)
[2017-09-13] MEDS: Nitroglycerin 2% Ointment Foilpak UD TOP SCH ×4 (05:33→23:55)
[2017-09-13] MEDS: Levalbuterol 0.63 MG/3 ML Inhal Soln UD IH PRN ×2 (05:56→11:44)
[2017-09-13] MEDS: Levalbuterol 1.25 MG/3 ML Inhal Soln UD IH SCH ×4 (05:58→20:36)
[2017-09-13] MEDS: MethylPREDNISolone 40 mg Vial IV SCH ×2 (09:10→21:28)
[2017-09-13] MEDS: Levothyroxine 75 MCG TAB PO SCH (09:11)
--- NOTE | 2017-09-13 10:11 | PN ---
DATE: 09/13/2017 SUBJECTIVE: The patient has no complaints of any chest pain, no shortness of breath and no headache. She does state that she had difficult time in sleeping yesterday. PHYSICAL EXAMINATION: VITAL SIGNS: Temperature is 98.4, pulse of 80, blood pressure of 164/80, and respirations of 24. GENERAL: The patient is lying in bed, flat, comfortable. HEENT: No oral lesion. Anicteric sclerae. Moist mucosa. NECK: No JVD, adenopathy, or thyromegaly. CARDIOVASCULAR: S1 and S2, regular. No murmurs, rubs, or gallops. LUNGS: Clear to auscultation bilaterally. No wheeze, rales, or rhonchi. ABDOMEN: Bowel sounds are positive, soft, nontender and nondistended. EXTREMITIES: No cyanosis, clubbing or edema. ASSESSMENT: 1. End-stage renal disease on hemodialysis. 2. Hypertension, improved. 3. Congestive heart failure secondary to systolic dysfunction, stable. 4. Right lower extremity ulcer 5 cm x 4 cm. 5. Chronic obstructive pulmonary disease. 6. Pulmonary hypertension. 7. Peripheral arterial disease. 8. Bronchitis. 9. Hypothyroidism. 10. Anemia secondary to renal disease. PLAN: The patient states she had a difficult time in sleeping last night. Her blood pressure is improved. She is on doxycycline for antibiotics. She is being followed by Dr. Forte for her wound. She is getting local wound care. She is on pain medications. She is going to the OR on Thursday morning. The patient is on Losartan. She is going to be on Clonidine for hypertension. The patient is receiving aspirin daily for her peripheral arterial disease. She is also on amlodipine for her hypertension. She is receiving Renagel for her secondary hyperparathyroidism. She is on labetalol for her hypertension as well. Jose Richards MD
--- NOTE | 2017-09-13 15:22 | CP.PCM.PN ---
<Richelle Bains - Last Filed: 09/13/17 15:18> Subjective - Date & Time of Evaluation Date of Evaluation: 09/13/17 Time of Evaluation: 15:18 - Subjective Subjective: Podiatry Progress Note - Drs. Forte/Franny 57 year old female patient PMHx CHF, HTN, COPD, seen and evaluated at bedside for painful right leg wounds. Patient hemodynamically stable and NAD. NAEO. Reports continued pain to right leg wound, well-controlled. No SOB currently. Patient aware she is scheduled to go to the OR tomorrow, Thursday09/14/17 for debridement of wounds. Denies N/V/F/D/C. Objective - Vital Signs/Intake and Output Vital Signs (last 24 hours): Temp Pulse Resp BP Pulse Ox 98.1 F 78 20 168/62 H 90 L 09/13/17 06:00 09/13/17 13:54 09/13/17 06:00 09/13/17 13:59 09/13/17 06:00 Intake and Output: 09/13/17 09/13/17 06:59 18:59 Intake Total 360 Balance 360 - Medications Medications: Current Medications Amlodipine Besylate (Norvasc) 10 mg PO DAILY [facility] Last Admin: 09/13/17 09:08 Dose: 10 mg Aspirin (Ecotrin) 81 mg PO DAILY [facility] Last Admin: 09/13/17 09:08 Dose: 81 mg Clonidine HCl (Catapres) 0.2 mg PO TID [facility] Last Admin: 09/13/17 13:54 Dose: 0.2 mg Clopidogrel Bisulfate (Plavix) 75 mg PO DAILY [facility] Last Admin: 09/11/17 09:41 Dose: 75 mg Doxycycline Hyclate (Doryx) 100 mg PO Q12 ZANA PRN Reason: Protocol Last Admin: 09/13/17 09:08 Dose: 100 mg Hydromorphone HCl (Dilaudid) 1 mg IM Q4H PRN PRN Reason: Pain, severe (8-10) Last Admin: 09/13/17 05:25 Dose: 1 mg Labetalol HCl (Trandate) 300 mg PO Q8 [facility] Last Admin: 09/13/17 13:59 Dose: 300 mg Levalbuterol HCl (Xopenex) 1.25 mg IH [id number] [facility] Last Admin: 09/13/17 09:30 Dose: 1.25 mg Levalbuterol HCl (Xopenex) 0.63 mg IH [id number] PRN PRN Reason: Shortness of Breath Last Admin: 09/13/17 11:44 Dose: 0.63 mg Levothyroxine Sodium (Synthroid) 75 mcg PO DAILY [facility] Last Admin: 09/13/17 09:11 Dose: 75 mcg Loratadine (Claritin) 10 mg PO DAILY [facility] Last Admin: 09/13/17 09:07 Dose: 10 mg Methylprednisolone (Solu-Medrol) 40 mg IV Q12 [facility] Last Admin: 09/13/17 09:10 Dose: 40 mg Nitroglycerin (Nitro-Bid 2% Oint) 1 ea TOP Q6 [facility] Last Admin: 09/13/17 13:58 Dose: 1 ea Ondansetron HCl (Zofran Inj) 4 mg IVP Q6 PRN PRN Reason: Nausea/Vomiting Last Admin: 09/10/17 10:14 Dose: 4 mg Promethazine HCl/Codeine (Phenergan/Codeine Oral Syrup) 5 ml PO Q6H [facility] Last Admin: 09/13/17 13:58 Dose: 5 ml Sevelamer HCl (Renagel) 800 mg PO TID [facility] Last Admin: 09/13/17 13:58 Dose: 800 mg - Labs Labs: 09/12/17 06:30 09/12/17 06:30 - Constitutional Appears: Well, Non-toxic, No Acute Distress - Extremities Exam Additional comments: LE focused exam: Vasc: DP/PT pulses palpable 2/4 b/l. Skin temperature warm to warm from proximal to distal. CFT < 3 seconds to all digits b/l. 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 Base is fibrogranular. Minimal periwound erythema. No malodor, no purulence, no tunneling, tracking, undermining, probe to bone or fluctuance. Ulceration is noted to have 2 satellite lesions, one proximal and one posterior to large wound; periwound erythema noted. No maceration, xerosis, abnormal pigmentation or abnormal growths noted to b/l LE MSK: Severe POP to right leg ulcerations - Neurological Exam Neurological Exam: Alert, Awake, Oriented x3 - Psychiatric Exam Psychiatric exam: Anxious Assessment and Plan - Assessment and Plan (Free Text) Assessment: 57 year old female with PMHx HTN, CHF, COPD with ulcerations to right leg secondary to calciphylaxis Plan: Patient seen and evaluated at bedside Discussed with attending, Dr. Blanton Afebrile Wound cleansed with normal saline, lidocaine 2% gel applied, and dressed with adaptic DSD 1mg Dilaudid prn for dressing changes To OR tomorrow, Thursday09/14/16 @ 4PM for right leg wound debridement Patient will be placed NPO after breakfast tomorrow Podiatry will continue to follow patient while in house <Wendy Blanton - Last Filed: 09/14/17 07:58> Objective - Vital Signs/Intake and Output Vital Signs (last 24 hours): Temp Pulse Resp BP Pulse Ox 98.9 F 76 20 200/92 H 100 09/13/17 16:48 09/14/17 06:14 09/14/17 06:00 09/14/17 06:47 09/13/17 22:00 Intake and Output: 09/14/17 09/14/17 06:59 18:59 Intake Total 240 Balance 240 - Medications Medications: Current Medications Acetylcysteine (Acetylcysteine 20%) 3 ml IH BID [facility] Last Admin: 09/13/17 20:35 Dose: 3 ml Amlodipine Besylate (Norvasc) 10 mg PO DAILY [facility] Last Admin: 09/13/17 09:08 Dose: 10 mg Aspirin (Ecotrin) 81 mg PO DAILY [facility] Last Admin: 09/13/17 09:08 Dose: 81 mg Clonidine HCl (Catapres) 0.3 mg PO TID [facility] Last Admin: 09/14/17 06:14 Dose: 0.3 mg Clopidogrel Bisulfate (Plavix) 75 mg PO DAILY [facility] Last Admin: 09/11/17 09:41 Dose: 75 mg Doxycycline Hyclate (Doryx) 100 mg PO Q12 ZANA PRN Reason: Protocol Last Admin: 09/13/17 21:29 Dose: 100 mg Hydromorphone HCl (Dilaudid) 1 mg IM Q4H PRN PRN Reason: Pain, severe (8-10) Last Admin: 09/14/17 02:48 Dose: 1 mg Labetalol HCl (Trandate) 300 mg PO Q8 [facility] Last Admin: 09/14/17 05:43 Dose: 300 mg Levalbuterol HCl (Xopenex) 1.25 mg IH [id number] [facility] Last Admin: 09/14/17 03:00 Dose: 1.25 mg Levalbuterol HCl (Xopenex) 0.63 mg IH [id number] PRN PRN Reason: Shortness of Breath Last Admin: 09/13/17 11:44 Dose: 0.63 mg Levothyroxine Sodium (Synthroid) 75 mcg PO DAILY [facility] Last Admin: 09/13/17 09:11 Dose: 75 mcg Loratadine (Claritin) 10 mg PO DAILY [facility] Last Admin: 09/13/17 09:07 Dose: 10 mg Methylprednisolone (Solu-Medrol) 40 mg IV Q12 [facility] Last Admin: 09/13/17 21:28 Dose: 40 mg Montelukast Sodium (Singulair) 10 mg PO HS [facility] Last Admin: 09/13/17 21:28 Dose: 10 mg Nitroglycerin (Nitro-Bid 2% Oint) 1 ea TOP Q6 [facility] Last Admin: 09/14/17 05:43 Dose: 1 ea Ondansetron HCl (Zofran Inj) 4 mg IVP Q6 PRN PRN Reason: Nausea/Vomiting Last Admin: 09/10/17 10:14 Dose: 4 mg Promethazine HCl/Codeine (Phenergan/Codeine Oral Syrup) 5 ml PO Q6H [facility] Last Admin: 09/14/17 05:43 Dose: 5 ml Sevelamer HCl (Renagel) 800 mg PO TID [facility] Last Admin: 09/13/17 17:06 Dose: 800 mg - Labs Labs: 09/12/17 06:30 09/12/17 06:30 Attending/Attestation - Attestation I have personally seen and examined this patient.: Yes I have fully participated in the care of the patient.: Yes I have reviewed all pertinent clinical information, including history, physical exam and plan: Yes
--- NOTE | 2017-09-13 18:27 | PN ---
DATE: 09/13/2017 SUBJECTIVE: The patient is seen, sitting in bed. She is awake, she is alert, she is comfortable. She complains of shortness of breath. She reports that her cough is better, but her breathing is worse. PHYSICAL EXAMINATION GENERAL: Middle-aged lady, sitting in bed. VITAL SIGNS: Blood pressure 173/60, heart rate 74, respiratory rate 20, and temperature 98.1. HEENT: Normocephalic, atraumatic. NECK: Supple, no JVD. LUNGS: Bilateral equal entry, bilateral rhonchi, inspiratory and expiratory wheeze. CARDIAC: S1, S1, regular rate and rhythm. No murmur, no rub. ABDOMEN: Soft, distended, bowel sounds present. EXTREMITIES: Dressing of the right lower extremity. INTAKE AND OUTPUT: 1080/100. LABORATORY DATA: No new labs for today. CURRENT MEDICATIONS: Catapres 0.2 b.i.d., loratadine, Dilaudid, doxycycline 100 q.12, aspirin 81, Lasix IV 40 mg given yesterday, MiraLax, amlodipine 10, promethazine, Plavix, sevelamer, Synthroid, labetalol 300 q.8, lidocaine, Zofran. ASSESSMENT AND PLAN 1. Upper respiratory infection/bronchitis/shortness of breath. 2. Chronic obstructive pulmonary disease. 3. Pulmonary hypertension. 4. Severe hypertension. 5. End-stage renal disease. 6. Peripheral vascular disease. PLAN 1. Lasix 40 mg IV push x1 dose. 2. Increase Catapres to 0.2 t.i.d. 3. Pulmonary followup for COPD exacerbation, shortness of breath, respiratory distress. 4. Status post dialysis yesterday. 5. Continue respiratory treatments. 6. Close monitoring. Tamanna Smith MD
[2017-09-13] MEDS: Acetylcysteine 20% Inhal Soln (4ml) IH SCH (20:35)
--- NOTE | 2017-09-14 00:17 | CON ---
DATE: 09/13/2017 REASON FOR CONSULTATION: Cough, shortness of breath, chronic lung disease, may have sleep apnea syndrome. HISTORY OF PRESENT ILLNESS: This is a 57-year-old female known to me from previous admission, has a history of hypertension, renal failure, dialysis dependent, anemia, gastric ulcer, history of carotid stenosis angioplasty, peripheral vascular disease, admitted with fever, generalized weakness complaining of cough and shortness of breath. There is no hemoptysis ____ 01:12 hematuria. No diarrhea reported. Admit to have snoring at nighttime, daytime sleepy and tired. PAST MEDICAL HISTORY: As per history of present illness. ALLERGIES: TO CIPRO, HYDRALAZINE, AND VANCOMYCIN. SOCIAL HISTORY: Stopped smoking few years ago. Denies any alcohol use. FAMILY HISTORY: No significant cardiopulmonary disease reported. MEDICATIONS: She is on clonidine 0.2 mg three times a day, Claritin 10 mg daily, Dilaudid 1 mg q.4h. p.r.n., doxycycline 100 mg twice a day, Ecotrin 81 mg daily, Norvasc 10 mg daily, Phenergan with codeine 5 ml q.6h., Plavix 75 mg daily, Xanax with meals, Solu-Medrol 40 mg q.12h., Synthroid 75 mcg daily, labetalol 300 mg q.8 hours, Xopenex 0.6 q.6h. p.r.n., Zofran p.r.n. basis. REVIEW OF SYSTEM: No headache, no rhinitis. Does have a cough, shortness of breath, some sputum production, snoring at night, daytime sleepy. No chest pain. No nausea, no vomiting. Has a nonhealing ulcer on the right leg. PHYSICAL EXAMINATION GENERAL: Sitting up with mild cough and shortness of breath. VITAL SIGNS: Temperature is 98, heart rate 81, respiratory is 20, blood pressure 171/75, pulse ox 93% on nasal cannula. HEENT: Moist mucous membranes. Crowded airway. Mallampati score is 4. NECK: Supple. No JVD. LUNGS: Has a scattered rhonchi and wheezing. HEART: S1 and S2. ABDOMEN: Soft, nontender. No organomegaly. EXTREMITIES: There is no edema. NEUROLOGIC: Awake, alert, follows simple commands. LABORATORY DATA: Shows hemoglobin 9.6, hematocrit 32.2, WBC 3.6, platelet count is 236. Sodium 139, potassium 4.3, chloride 97, bicarbonate 25, BUN 54, creatinine 5.9, glucose 141, calcium 9.8, phosphorus 7.3, AST 46, ALT 30, alk phos is 96. Albumin is 4.1. Microbiology, blood culture has been negative. Had a CAT scan of the chest done on September 08, 2017. There is no active pulmonary disease reported. Has some emphysematous changes. There is also minimal atelectasis and scarring, also has small pulmonary nodules. IMPRESSION AND PLAN: Cardiomyopathy with diastolic dysfunction, pulmonary infiltrate, renal failure, dialysis dependent, coronary artery disease requiring angioplasty, peripheral vascular disease requiring bypass surgery, has a nonhealing ulcer of the right lower extremity. There may be component of obstructive lung disease, also sleep apnea syndrome, anemia. We will place her on BiPAP tonight with nasal mask. Continue inhaled bronchodilator. We will get procalcitonin in the morning and Zithromax 500 mg daily p.o. Pj Lazaro MD
[2017-09-14] MEDS: HYDROmorphone 0.5 mg/0.5 ml ISec IM PRN ×2 (02:48→08:54)
[2017-09-14] MEDS: Levalbuterol 1.25 MG/3 ML Inhal Soln UD IH SCH ×4 (03:00→20:45)
[2017-09-14] MEDS: Promethazine/Cod 6.25mg-10mg/5ml Syr UD PO SCH ×4 (05:43→19:03)
[2017-09-14] MEDS: Nitroglycerin 2% Ointment Foilpak UD TOP SCH ×3 (05:43→17:25)
[2017-09-14] MEDS: Levothyroxine 75 MCG TAB PO SCH (09:34)
[2017-09-14] MEDS: MethylPREDNISolone 40 mg Vial IV SCH (09:35)
--- NOTE | 2017-09-14 09:47 | PN ---
DATE: SUBJECTIVE: The patient has no complaints of any chest pain, no shortness of breath. She states she does get shortness of breath at times. PHYSICAL EXAMINATION: VITAL SIGNS: Temperature is 98.9, pulse is 77, blood pressure is 140/65, and respirations are 20. GENERAL: The patient is lying in bed, flat, comfortable. HEENT: No oral lesion. Anicteric sclerae. Moist mucosa. NECK: No JVD, adenopathy, or thyromegaly. CARDIOVASCULAR: S1 and S2, regular. No murmurs, rubs, or gallops. LUNGS: Clear to auscultation bilaterally. No wheeze, rales, or rhonchi. ABDOMEN: Bowel sounds are positive, soft, nontender and nondistended. EXTREMITIES: No cyanosis, clubbing or edema. ASSESSMENT: 1. End-stage renal disease, on hemodialysis. 2. Hypertension. 3. Congestive heart failure secondary to systolic dysfunction. 4. Right lower extremity ulcer 5 x 4 cm. 5. Chronic obstructive pulmonary disease. 6. Pulmonary hypertension. 7. Peripheral arterial disease. 8. Bronchitis. 9. Hypothyroidism. 10. Anemia, secondary to renal disease. PLAN: The patient is currently on acetylcysteine for her cough. She is on clonidine. She is going to continue with doxycycline for antibiotics. The patient is on amlodipine for hypertension. The patient is on steroids that probably she is going to be on Synthroid for hypothyroidism. She is on labetalol for her hypertension. She is going to continue with CPAP. She is going to the OR later today at about 4:00 for local wound debridement. Jose Richards MD
--- NOTE | 2017-09-14 13:03 | PN ---
DATE: 09/14/2017 SUBJECTIVE: The patient is seen sitting in bed. She is awake, she is alert, she is comfortable. She reports that her breathing is somewhat better today. She did have trouble during the night. She complains of cough. PHYSICAL EXAMINATION: GENERAL: Middle-aged lady sitting in bed. VITAL SIGNS: Blood pressure 208/88, heart rate 74, respiratory rate 21, and temperature 98.1. HEENT: Normocephalic, atraumatic. NECK: Supple, no JVD. LUNGS: Bilateral equal air entry, bilateral rhonchi, better aeration. CARDIAC: S1 and S2. Regular rate and rhythm. No murmur. No rub. ABDOMEN: Soft, nondistended, nontender, bowel sounds present. EXTREMITIES: No lower extremity edema. INTAKE AND OUTPUT: 240/not charted. LABORATORY DATA: No new labs. MEDICATIONS: Catapres 0.3 three times a day, doxycycline 100 q.12 hours, aspirin, amlodipine 10, Plavix, Renagel, Singulair, Solu-Medrol, and Trandate 300 q.8 hours. ASSESSMENT: 1. Upper respiratory tract infection/bronchitis/chronic obstructive pulmonary disease exacerbation. 2. Severe hypertension. 3. End stage renal disease. 4. Peripheral vascular disease. 5. Anemia of chronic disease. 6. Secondary hyperparathyroidism. 7. Hyperphosphatemia. PLAN: 1. The patient is currently on clonidine, amlodipine, beta-mino, unable to get hydralazine because of allergy, unable to get ARB because of hyperkalemia. 2. Continue respiratory treatments. 3. Continue antibiotics. 4. Dialysis again tomorrow. 5. For skin grafts today for the right lower extremity? Tamanna Smith MD
[2017-09-14] MEDS: Acetylcysteine 20% Inhal Soln (4ml) IH SCH ×3 (13:17→20:45)
[2017-09-14] MEDS ORDERED: Lidocaine 2% Inj (20ml) ONE (16:01)
[2017-09-14] MEDS ORDERED: Midazolam 2 MG/2 ML VIAL ONE ×2 (16:33→16:35)
[2017-09-14] MEDS ORDERED: Flumazenil 0.1 mg/ml Inj (5ml) IVP ONE (16:40)
--- NOTE | 2017-09-14 16:54 | PCM.SURG1 ---
Surgeon's Initial Post Op Note - Surgeon's Notes Surgeon: Dr. Wendy Blanton, DPM Library Information Technician: Trevor De La Rosa, PGY1 Type of Anesthesia: IV Sedation, Local Anesthesia Administered By: Dr. Kenney Pre-Operative Diagnosis: Ulceration of right leg Operative Findings: See dictation report. I- 4cc 2% lidocaine plain Post-Operative Diagnosis: Same Operation Performed: Debridement of right leg ulceration with application of purapply graft Specimen/Specimens Removed: None Estimated Blood Loss: EBL {In ML}: 1 Blood Products Given: N/A Drains Used: No Drains Post-Op Condition: Good Date of Surgery/Procedure: 09/14/17 Time of Surgery/Procedure: 16:53
[2017-09-14] MEDS ORDERED: Sodium Chloride 0.9% 1,000 ML IV SCH (17:00)
[2017-09-14] MEDS ORDERED: Nitroglycerin 2% Ointment Foilpak UD TOP ONE (17:23)
[2017-09-14] MEDS ORDERED: HYDROmorphone 0.5 mg/0.5 ml ISec ONE (18:15)
[2017-09-14] MEDS ORDERED: HYDROmorphone 0.5 mg/0.5 ml ISec IM STA (20:13)
--- NOTE | 2017-09-14 21:25 | PN ---
PULMONARY PROGRESS NOTE DATE: 09/14/2017 REFERRING PHYSICIAN: Brittany Coffman MD SUBJECTIVE: She is sitting side of the bed, feels better, and could not use BiPAP last night. Shortness of breath is better. Cough better. No nausea. No vomiting. No diarrhea. No leg pain or leg swelling. OBJECTIVE: GENERAL: In no acute distress. VITAL SIGNS: Temperature is 98, heart rate is 75, respiratory rate is 20, blood pressure is 202/94, and pulse oximetry is 93% on 3 L nasal cannula. HEENT: Moist mucous membranes. Crowded airway. NECK: Supple. No JVD. LUNGS: Has a few scattered rhonchi. HEART: S1 and S2. ABDOMEN: Soft and nontender. No organomegaly. EXTREMITIES: Right leg has a nonhealing ulcer. NEUROLOGICAL: Awake, alert, and follows simple commands. MEDICATIONS: She is on Catapres 0.3 mg three times a day, Claritin 10 mg daily, Dilaudid 1 mg q.4 hours p.r.n., doxycycline 100 mg twice a day, Ecotrin 81 mg daily, nitroglycerin q.6 hours, Norvasc 10 mg daily, also on Phenergan with codeine 5 mL q.6 hours, Plavix 75 mg daily, Singulair 10 mg daily, IV fluid normal saline 75 mL per hour, Solu-Medrol 40 mg q.12 hours, Synthroid 75 mcg daily, labetalol 300 mg q.8 hours, Xopenex 1.25 mg q.6 hours, and Zofran p.r.n. basis. LABORATORY DATA: Reviewed. No new lab is available since yesterday. Blood cultures are being negative. IMPRESSION AND PLAN: Cardiomyopathy with diastolic dysfunction; pulmonary infiltrate; renal failure, dialysis dependent; coronary artery disease, requiring angioplasty; peripheral vascular disease, requiring bypass surgery; and nonhealing right leg ulcer. We will continue to encourage BiPAP use while sleeping. We will suggest discontinuing IV fluid, gastric prophylaxis, decrease steroids, and need to improve blood pressure. Thank you and we will follow with you. Pj Lazaro MD [facility] # [id number]
[2017-09-14] MEDS: MethylPREDNISolone 40 mg Vial IVP SCH (21:36)
[2017-09-15] MEDS: Nitroglycerin 2% Ointment Foilpak UD TOP SCH ×3 (00:28→17:32)
[2017-09-15] MEDS: HYDROmorphone 0.5 mg/0.5 ml ISec IM PRN ×2 (02:29→17:35)
[2017-09-15] MEDS: Levalbuterol 1.25 MG/3 ML Inhal Soln UD IH SCH ×3 (03:00→21:26)
[2017-09-15 08:02] VITALS: RESP 20
[2017-09-15] MEDS: Acetylcysteine 20% Inhal Soln (4ml) IH SCH ×2 (08:20→21:26)
[2017-09-15] MEDS ORDERED: Oxycodone/Acetaminophen 5/325 mg Tab PO PRN (08:49)
[2017-09-15] MEDS: MethylPREDNISolone 40 mg Vial IVP SCH ×2 (09:46→21:31)
[2017-09-15] MEDS: Levothyroxine 75 MCG TAB PO SCH (10:30)
[2017-09-15] MEDS: Levalbuterol 0.63 MG/3 ML Inhal Soln UD IH PRN (12:18)
[2017-09-15 15:24] LABS: BASO # 0.01 K/mm3 (0.0-2.0); BASO % 0.2 % (0.0-3.0); GRAN # 5.26 (1.4-6.5); GRAN % 81.5 % (50.0-68.0); HEMOGLOBIN 9.4 g/dL (12.0-16.0); LYMPH # 0.9 (1.2-3.4); MEAN CELL VOLUME 93.9 fl (80.0-105.0); MEAN CORPUSCULAR HEMOGLOBIN 27.2 pg (25.0-35.0); MEAN CORPUSCULAR HGB CONC 28.9 g/dl (31.0-37.0); MEAN PLATELET VOLUME 10.1 fl (7.0-11.0); MONO # 0.3 (0.1-0.6); MONO % 4.3 % (1.0-6.0); RBC 3.46 10^6/uL (3.5-6.1); RED CELL DISTRIBUTION WIDTH 16.5 % (11.5-14.5); WHITE BLOOD COUNT 6.5 10^3/ul (4.5-11.0)
[2017-09-15 15:36] LABS: ALB/GLOB RATIO 1.8 (1.1-1.8); ALBUMIN 4.1 g/dL (3.0-4.8); CALCIUM 9.2 mg/dL (8.4-10.5); MAGNESIUM 1.9 mg/dL (1.7-2.2)
--- NOTE | 2017-09-15 17:30 | PN ---
DATE: 09/15/2017 SUBJECTIVE: The patient is currently seen short of breath in bed, just status post inhalation therapy. She states her breathing is more difficult today. This is exacerbation of her COPD in the setting of an upper respiratory tract infection. The patient is leaving for dialysis shortly. MEDICATIONS: Medication list reviewed. The patient is on acetylcysteine, clonidine, Claritin, Dilaudid, Doryx, Ecotrin, Lopressor, nitroglycerin ointment, Norvasc, Percocet, Phenergan with Codeine, Plavix, Renagel, Singulair, Solu-Medrol, Synthroid, Trandate, Xopenex, Zofran p.r.n. OBJECTIVE: INTAKE/OUTPUT: Intake 300, output 100. VITAL SIGNS: Blood pressure presently is systolic blood pressure ranging from 186 to 202 systolic with diastolics ranging from 76 to 94. Pulse is 76, temperature 98.1, respiratory rate is 20. She is mildly labored. HEENT: Normocephalic, atraumatic. Conjunctivae are pale. Sclerae are nonicteric. NECK: Supple. No neck vein distention. CHEST: Scattered rhonchi and wheezing bilaterally. No rales. CARDIOVASCULAR: S1, S2 normal. Soft systolic murmur left lower sternal border. No S3. No S4. No rub. ABDOMEN: Soft. Bowel sounds normal. Nondistended. No masses. No rebound or guarding. EXTREMITIES: No lower extremity edema. Positive dressing over her right lower leg in the area of her lower leg ulcer. Positive right chest wall PermCath. No lower extremity cyanosis, clubbing or edema. MICROBIOLOGY: All cultures are negative at 5 days. ASSESSMENT: 1. Upper respiratory tract infection, bronchitis, chronic obstructive pulmonary disease exacerbation. The patient is still not out of the chiu yet. She still has tight breathing today with scattered rhonchi and wheezing diffusely. She had been seen by Pulmonary. Medications are being adjusted. 2. Severe hypertension. The patient's blood pressure remains elevated. Best way to treat her hypertension is to dialyze, so she will be receiving dialysis later today. 3. End-stage renal disease. Continue three times a week and if necessary a fourth dialysis for volume removal. 4. History of peripheral vascular disease with a poorly healing ulcer of her right lower leg. The patient is hoping not to have to require surgery of her right lower extremity. 5. History of anemia secondary to chronic kidney disease. The patient will continue Aranesp per protocol on dialysis. 6. History of secondary hyperparathyroidism. The patient will continue renal diet and binder therapy. PLAN: 1. Continue present the patient on present blood pressure medication. 2. Complete course of antibiotic therapy for her bronchitis. 3. Continue renal diet and binder therapy. 4. Continue close Pulmonary followup with adjustment of inhalation therapy and continue steroid therapy as per Pulmonary. Sampson Hutchins MD
[2017-09-15] MEDS: Promethazine/Cod 6.25mg-10mg/5ml Syr UD PO SCH ×2 (18:27→18:35)
--- NOTE | 2017-09-15 22:17 | PN ---
DATE: 09/15/2017 SUBJECTIVE: The patient has no complaints of any chest pain. No shortness of breath or headaches. She states she was able to breathe better last night. She does get shortness of breath at times. PHYSICAL EXAMINATION: VITAL SIGNS: Temperature is 98.5, pulse is 97, blood pressure is 180/70, and respirations are 20. GENERAL: The patient is lying in bed, flat, comfortable. HEENT: No oral lesion. Anicteric sclerae. Moist mucosa. NECK: No JVD, adenopathy, or thyromegaly. CARDIOVASCULAR: S1 and S2, regular. No murmurs, rubs, or gallops. LUNGS: Clear to auscultation bilaterally. No wheeze, rales, or rhonchi. ABDOMEN: Bowel sounds are positive, soft, nontender and nondistended. EXTREMITIES: No cyanosis, clubbing or edema. LABORATORY DATA: Potassium is 6.1. ASSESSMENT: 1. Right leg ulceration, status post debridement. 2. End-stage renal disease, on hemodialysis. 3. Congestive heart failure secondary to systolic dysfunction. 4. Hypertension. 5. Pulmonary hypertension. 6. Chronic obstructive pulmonary disease. 7. Peripheral vascular disease. 8. Bronchitis. 9. Hypothyroidism. 10. Anemia secondary to renal disease. PLAN: The patient is currently comfortable. She is on acetylcysteine for her congestion. She is on clonidine for her hypertension. The patient is on Dilaudid for pain. I will renew her Dilaudid. She is also on doxycycline, this will be continued. She is being followed by Dr. Blanton and Dr. Smith. The patient is receiving amlodipine for her hypertension. She is on Renagel for her secondary hyperthyroidism. She is receiving Synthroid of her hypothyroidism. Jose Richards MD
--- NOTE | 2017-09-16 00:04 | PN ---
DATE: 09/15/2017 PULMONARY PROGRESS NOTE REFERRING PHYSICIAN: Brittany Coffman MD SUBJECTIVE: She is sitting at the side of the bed. She could not use BiPAP last night. She has still cough and shortness of breath. No nausea, no vomiting, and no diarrhea. Had debridement of the right lower extremity wound. PHYSICAL EXAMINATION GENERAL: In no acute distress. VITAL SIGNS: Temperature is 98.4, heart rate is 77, respiratory rate is 20, blood pressure is 169/88 and pulse oximetry is 95% on 2 L nasal cannula. HEENT: Moist mucous membranes. Crowded airway. NECK: Supple. No JVD. LUNGS: Have a scattered rhonchi. HEART: S1 and S2. ABDOMEN: Soft and nontender. No organomegaly. EXTREMITIES: There is no edema of the left leg. Right leg has a dressing of a nonhealing wound. NEUROLOGIC: Awake and alert. Follow simple commands. MEDICATIONS: She is on Mucomyst 20% inhaled twice a day, clonidine 0.3 mg three times a day, Claritin 10 mg daily, Dilaudid 1 mg q. 4 hours. p.r.n., doxycycline 100 mg twice a day, Ecotrin 81 mg daily, metoprolol tartrate 25 mg twice a day, Norvasc 10 mg daily, Percocet 5/325 mg one tablet q. 4 hours. p.r.n., promethazine with codeine 5 mL q. 6 hours., Plavix 75 mg daily, Renagel 800 mg three times a day, Singulair 10 mg daily, Solu-Medrol 20 mg q. 12 hours., Synthroid 75 mcg daily, 300 mg q. 8 hours, Xopenex 1.25 mg q. 6 hours., and Zofran p.r.n. basis. LABORATORY DATA: Shows hemoglobin of 9.4, hematocrit of 32.5, WBC of 6.5, and platelets of 253. Sodium of 138, potassium of 6.1, chloride of 97, bicarbonate of 24, BUN of 83, and creatinine of 7.2. Glucose is 88, calcium is 9.2, and phosphorus is 7.3. AST is 33, ALT is 33, alkaline phosphatase is 92, and albumin is 4.1. Influenza A and B has been negative. Microbiology: Blood cultures have been negative. IMPRESSION AND PLAN: Cardiomyopathy with diastolic dysfunction, pulmonary infiltrate, renal failure, dialysis dependent, coronary artery disease, chronic obstructive lung disease, peripheral vascular disease, has a nonhealing ulcer on the right leg, status post debridement of the wound. We will continue intravenous and inhaled bronchodilator. Keep head at 45 degree. Continue workup to readjust her blood pressure medications. Need to optimize blood pressure medications. Encourage continuous positive airway pressure use. Spoke about sleep apnea, uncontrolled hypertension, and also discussed sleep apneas consequences. The patient expressed understanding. We will continue to work on it. Thank you and we will follow with you. Pj Lazaro MD
[2017-09-16] MEDS: Nitroglycerin 2% Ointment Foilpak UD TOP SCH ×3 (00:16→13:00)
[2017-09-16] MEDS: Promethazine/Cod 6.25mg-10mg/5ml Syr UD PO SCH ×3 (00:16→13:25)
[2017-09-16] MEDS: HYDROmorphone 0.5 mg/0.5 ml ISec IM PRN ×2 (00:16→09:52)
[2017-09-16] MEDS: Levalbuterol 1.25 MG/3 ML Inhal Soln UD IH SCH ×3 (02:02→13:55)
[2017-09-16] MEDS: Acetylcysteine 20% Inhal Soln (4ml) IH SCH (07:49)
--- NOTE | 2017-09-16 08:26 | OP ---
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 PROCEDURE: Debridement of superficial ulceration of right leg. SURGEON: Wendy Blanton DPM TALENT ACQUISITION PARTNER: Trevor De La Rosa DPM, PGY1 TYPE OF ANESTHESIA: IV sedation, local. ANESTHESIA ADMINISTERED BY: Isra Kenney M.D. INDICATIONS: The patient is a 57-year-old female with the above diagnosis. The patient has exhausted all conservative treatment at this time and not require surgical intervention. The patient signed the consent after careful explanation of risks, benefits, complications, and alternatives of the surgical procedure. No guarantees were given nor implied, n.p.o. status was confirmed prior taking the patient to the operating room. PREPARATION: The patient was brought into the operating room and placed on the operating room table in a seated supine position. A time-out was performed for identification of the correct patient and procedure. After induction of IV sedation, the patient received a total of 4 mL of 1% lidocaine plain in a local block fashion to the right leg around the wound site. The right lower extremity was then prepped and draped in normal sterile manner and the procedure began. No tourniquet was used during the procedure. DESCRIPTION OF PROCEDURE: Attention was then turned to the medial right leg, where an approximately 3 cm x 6 cm superficial ulceration was noted with a mixed fibroglandular base. Utilizing a dermal curette, the entirety of the base of the ulcer was debrided until fresh healthy bleeding was noted. A allograft was then placed over the ulceration site and the wound was dressed with silicone, ABD pads, and dry sterile dressing. POSTOPERATIVE CONDITION: The patient tolerated the anesthesia and procedure well and was escorted to the recovery room with vital signs stable and neurovascular status intact to the right lower extremity. The patient is to remain full weightbearing. She will continue to follow and attend dressing changes while the patient is in house. Trevor De La Rosa DPM Wendy Blanton DPM
[2017-09-16] MEDS: MethylPREDNISolone 40 mg Vial IVP SCH (09:51)
[2017-09-16] MEDS: Levothyroxine 75 MCG TAB PO SCH (09:51)
[2017-09-16 09:57] VITALS: BP 180/88; PULSE 75; TEMP 98.6; O2SAT 97
--- NOTE | 2017-09-16 11:29 | CP.PCM.PN ---
Subjective - Date & Time of Evaluation Date of Evaluation: 09/16/17 Time of Evaluation: 11:25 - Subjective Subjective: 57 year old female seen at bedside two days s/p right leg ulcer debridement with application of Purapply graft. Patient is AAO x 3 and NAD, resting comfortably in bed at time of visit. Patient denies any acute overnight events and states that her pain is well controlled. Denies any further pedal complaints. Denies N/V/F/C/CP/SOB/D/posterior calf pain Objective - Vital Signs/Intake and Output Vital Signs (last 24 hours): Temp Pulse Resp BP Pulse Ox 98.6 F 75 20 180/88 H 97 09/16/17 09:56 09/16/17 10:01 09/16/17 09:56 09/16/17 10:01 09/16/17 09:56 Intake and Output: 09/16/17 09/16/17 06:59 18:59 Intake Total 400 Balance 400 - Medications Medications: Current Medications Acetylcysteine (Acetylcysteine 20%) 3 ml IH BID [facility] Last Admin: 09/16/17 07:49 Dose: 3 ml Amlodipine Besylate (Norvasc) 10 mg PO DAILY [facility] Last Admin: 09/16/17 09:50 Dose: 10 mg Aspirin (Ecotrin) 81 mg PO DAILY [facility] Last Admin: 09/16/17 09:51 Dose: 81 mg Clonidine HCl (Catapres) 0.3 mg PO TID [facility] Last Admin: 09/16/17 10:01 Dose: 0.3 mg Clopidogrel Bisulfate (Plavix) 75 mg PO DAILY [facility] Last Admin: 09/16/17 09:51 Dose: 75 mg Doxycycline Hyclate (Doryx) 100 mg PO Q12 [facility] PRN Reason: Protocol Last Admin: 09/16/17 09:51 Dose: 100 mg Hydromorphone HCl (Dilaudid) 1 mg IM Q4H PRN PRN Reason: Pain, severe (8-10) Last Admin: 09/16/17 09:52 Dose: 1 mg Labetalol HCl (Trandate) 300 mg PO Q8 [facility] Last Admin: 09/16/17 06:00 Dose: 300 mg Levalbuterol HCl (Xopenex) 1.25 mg IH [id number] [facility] Last Admin: 09/16/17 07:52 Dose: 1.25 mg Levalbuterol HCl (Xopenex) 0.63 mg IH [id number] PRN PRN Reason: Shortness of Breath Last Admin: 09/15/17 12:18 Dose: 0.63 mg Levothyroxine Sodium (Synthroid) 75 mcg PO DAILY [facility] Last Admin: 09/16/17 09:51 Dose: 75 mcg Loratadine (Claritin) 10 mg PO DAILY [facility] Last Admin: 09/16/17 09:51 Dose: 10 mg Methylprednisolone (Solu-Medrol) 20 mg IVP Q12 [facility] Last Admin: 09/16/17 09:51 Dose: 20 mg Metoprolol Tartrate (Lopressor) 25 mg PO BID [facility] Last Admin: 09/16/17 09:51 Dose: 25 mg Montelukast Sodium (Singulair) 10 mg PO HS [facility] Last Admin: 09/15/17 21:31 Dose: 10 mg Nitroglycerin (Nitro-Bid 2% Oint) 1 ea TOP Q6 [facility] Last Admin: 09/16/17 06:00 Dose: 1 ea Ondansetron HCl (Zofran Inj) 4 mg IVP Q6 PRN PRN Reason: Nausea/Vomiting Last Admin: 09/16/17 09:51 Dose: 4 mg Oxycodone/Acetaminophen (Percocet 5/325 Mg Tab) 1 tab PO Q4H PRN PRN Reason: Pain, severe (8-10) Stop: 09/18/17 08:50 Last Admin: 09/15/17 09:34 Dose: 1 tab Promethazine HCl/Codeine (Phenergan/Codeine Oral Syrup) 5 ml PO Q6H [facility] Last Admin: 09/16/17 06:00 Dose: 5 ml Sevelamer HCl (Renagel) 800 mg PO TID [facility] Last Admin: 09/16/17 09:50 Dose: 800 mg - Labs Labs: 09/15/17 15:00 09/15/17 15:00 - Constitutional Appears: Well, Non-toxic, No Acute Distress - Extremities Exam Additional comments: Dressings to RLE are C/D/I Dressings were left on due to graft application Vasc: DP/PT pulses palpable 2/4 b/l. Skin temperature warm to warm from proximal to distal. CFT < 3 seconds to all digits b/l. No edema noted b/l Neuro: Epicritic and protective sensation grossly intact b/l - Neurological Exam Neurological Exam: Alert, Awake, Oriented x3 - Psychiatric Exam Psychiatric exam: Normal Affect, Normal Mood Assessment and Plan - Assessment and Plan (Free Text) Assessment: 57 year old female seen at bedside two days s/p right leg ulcer debridement ( DOS 09/14/17) with application of Purapply graft Plan: Patient seen and evaluated at bedside Afebrile, absent leukocytosis Continue pain management per medicine Dressings not changed today due to application of graft Patient is stable from podiatric standpoint Patient to be DC today Patient to f/u in wound care center as an outpatient
--- NOTE | 2017-09-16 22:42 | PN ---
DATE: 09/16/2017 PULMONARY PROGRESS NOTE REFERRING PHYSICIAN: Dr. Coffman SUBJECTIVE: Sitting side of the bed, going to be discharged home today, did not use BiPAP. No nausea, no vomiting. Get short of breath with exertion. No nausea. No vomiting. No diarrhea. No leg pain. No leg swelling. Has a right leg, nonhealing ulcer. OBJECTIVE GENERAL: In no acute distress. VITAL SIGNS: Temperature is 98, heart rate is 75, respiratory rate is 20, blood pressure is 180/88, pulse ox is 97%, 2 liters nasal cannula. HEENT: Moist mucous membranes. Small oral cavity. Crowded airway. NECK: Supple. No JVD. LUNGS: Has scattered rhonchi. HEART: S1, S2. ABDOMEN: Soft, nontender, no organomegaly. EXTREMITIES: Has nonhealing ulcer on the right leg. NEUROLOGIC: Awake, alert, and follows simple commands. MEDICATIONS: Reviewed. No new change in medications reported. LABORATORY DATA: Reviewed. No new lab is available since yesterday. IMPRESSION AND PLAN: Cardiomyopathy, diastolic dysfunction, pulmonary infiltrate, renal failure, dialysis dependent, coronary artery disease, chronic obstructive lung disease, peripheral vascular disease, has a right leg nonhealing ulcer. From pulmonary point of view, we will continue inhaled bronchodilator. Suggest getting PFT and attended sleep study upon discharge as outpatient. Continue dialysis. May continue use diuretics on daily basis. Patient expressed understanding, importance of sleep study and PFT as outpatient and we will make appointment. Pj Lazaro MD
--- NOTE | 2017-09-17 02:46 | PN ---
DATE: 09/16/2017 SUBJECTIVE: The patient is seen, sitting in bed. She is awake, she is alert, she is comfortable. She reports shortness of breath. She reports some cough. PHYSICAL EXAMINATION GENERAL: Middle-aged lady, sitting in bed. VITAL SIGNS: Blood pressure 170/84, heart rate 74, respiratory rate 18, and temperature 98. HEENT: Normocephalic, atraumatic, positive pallor. NECK: Supple, no JVD. LUNGS: Bilateral rhonchi, prolonged expiration, inspiratory wheeze. CARDIAC: S1 and S2, regular rate and rhythm, no murmur, no rub. ABDOMEN: Soft, nondistended, nontender, bowel sounds present. EXTREMITIES: Dressing on the lower extremities. LABORATORY DATA: Hemoglobin 9.4, potassium pre-dialysis yesterday 6.1. MEDICATIONS: List reviewed. ASSESSMENT: 1. Upper respiratory infection/bronchitis/chronic obstructive pulmonary disease exacerbation. 2. Severe hypertension. 3. End-stage renal disease. 4. Pulmonary hypertension. 5. Peripheral vascular disease. PLAN: 1. Continue respiratory treatments, continue antibiotics. 2. Status post stable dialysis yesterday. 3. No objection to discharge. Tamanna Smith MD
--- NOTE | 2017-09-17 08:30 | DS ---
HISTORY OF PRESENT ILLNESS: This is a 57-year-old female who had come into the hospital. She had a leg ulcer. She was taken to the OR for local debridement. The patient is currently comfortable. She is followed by Pulmonary, Nephrology, and Podiatry. She has no complaints of any headache or dizziness. She does get shortness of breath at times. She will follow with Dr. Lazaro from Pulmonary as an outpatient. PHYSICAL EXAMINATION: VITAL SIGNS: Temperature is 98.5, pulse of 77, blood pressure is 200/100. GENERAL: The patient lying in bed, uncomfortable, and in no acute distress. HEENT: Atraumatic and normocephalic. Anicteric sclerae. Moist mucosa. One [place] conjunctivae. No oral lesions. NECK: No JVD, anterior and posterior adenopathy, thyromegaly, or bruits. CARDIOVASCULAR: S1 and S2 regular. No murmur, rubs, or gallop. LUNGS: Clear to auscultation bilaterally. No wheezes, rales, or rhonchi. ABDOMEN: Bowel sounds are positive. Soft, nontender and nondistended. No hepatosplenomegaly. No rebound and no guarding EXTREMITIES: No cyanosis, clubbing, or edema. NEUROLOGIC: No facial asymmetry. Tongue is midline. No uvula deviation. Power is 5/5 upper extremity and lower extremity. Sensation intact in upper extremity and lower extremity. PSYCHIATRIC: She is awake, alert and oriented x3. No anxiety or depression. She has normal affect. GENITOURINARY: No CVA tenderness. VASCULAR: 2+ pulses in the carotid pulses and pedal pulses. SKIN: No erythema or nodules SPINE: Shows normal curvature. ASSESSMENT: 1. Right leg ulceration, status post debridement. 2. Hypertension, uncontrolled. 3. End-stage renal disease on hemodialysis. 4. Congestive heart failure secondary to systolic dysfunction. 5. Pulmonary hypertension. 6. Chronic obstructive pulmonary disease. 7. Peripheral arterial disease. 8. Bronchitis. 9. Hypothyroidism. 10. Anemia secondary to renal disease. PLAN: The patient has elevated blood pressure. She is due for dialysis. The patient is being followed by Nephrology and we will defer to them for management. The patient is on clonidine, loratadine and amlodipine. The patient will continue with her Plavix. She is on Dilaudid for pain. She is on Renagel for her secondary hyperparathyroidism. She is on Synthroid for hypothyroidism. She did get CPAP at night. CONDITION: Stable. ACTIVITY: Increase as tolerated. FOLLOWUP: Follow up with Dr. Blanton, Podiatry in one to two weeks and to follow up with Dr. Lazaro. To follow up with Dr. Smith for her dialysis. Jose Richards MD
== END 2017-09-16 15:04 | disposition home or self-care (01) | DRG 166 ==
LOC: ED 13:57 → ERH 17:42 → 3RNO 09-09 10:05 → OBSVTOIN 09-10 08:37
PROVIDERS: ADMIT Internal Medicine; ATTEND Internal Medicine
PROC: 3E0F7GC Introduction of Other Therapeutic Substance into Respiratory Tract, Via Natural or Artificial Opening (ICD-10-PCS; 2017-09-09)
PROC: 0JBN0ZZ Excision of Right Lower Leg Subcutaneous Tissue and Fascia, Open Approach (ICD-10-PCS; principal; 2017-09-14 16:00)
PROC: 0JR Subcutaneous Tissue and Fascia, Replacement (ICD-10-PCS; 2017-09-14 16:00)
DX: J44.1 Chronic obstructive pulmonary disease with (acute) exacerbation (principal); N18.6 End stage renal disease; I13.2 Hypertensive heart and chronic kidney disease with heart failure and with stage 5 chronic kidney disease, or end stage renal disease; I27.20 Pulmonary hypertension, unspecified; I42.9 Cardiomyopathy, unspecified; E83.59 Other disorders of calcium metabolism; E83.39 Other disorders of phosphorus metabolism; L97.919 Non-pressure chronic ulcer of unspecified part of right lower leg with unspecified severity; N25.81 Secondary hyperparathyroidism of renal origin; I50.20 Unspecified systolic (congestive) heart failure; E03.9 Hypothyroidism, unspecified; D63.1 Anemia in chronic kidney disease; Z99.2 Dependence on renal dialysis; I73.9 Peripheral vascular disease, unspecified; I25.10 Atherosclerotic heart disease of native coronary artery without angina pectoris; E78.5 Hyperlipidemia, unspecified; J20.9 Acute bronchitis, unspecified; J44.0 Chronic obstructive pulmonary disease with (acute) lower respiratory infection; H91.90 Unspecified hearing loss, unspecified ear; Z99.81 Dependence on supplemental oxygen; Z87.11 Personal history of peptic ulcer disease; Z87.891 Personal history of nicotine dependence

== ENCOUNTER 2017-09-17 13:30 | Inpatient (IN) | payer MEDICARE, OTHER ==
[2017-09-17] MEDS ORDERED: Albuterol-Ipratrop 3 mg / 0.5 (3 ml) UD IH STA ×3 (14:52→19:27)
--- NOTE | 2017-09-17 15:02 | ED PDOC ---
Arrival/HPI - General Chief Complaint: Chest Pain Time Seen by Provider: 09/17/17 14:05 Historian: Patient - History of Present Illness Narrative History of Present Illness (Text): 09/17/17 14:55 A 57 year old female, whose past medical history includes hypertension, CHF, and COPD, and ESRD with hemodialysis on , presents to the emergency department complaining of worsening shortness of breath since yesterday. Patient reports she was recently discharged from the hospital today after being admitted for "PNA/COPD exacerbation". She reports that she did not feel well upon discharge and reports that she does not feel safe at home due to persistent SOB. Patient reports she has not received her dialysis treatment today. Patient denies any fever, chills, nausea, vomiting, abdominal pain, chest pain or any other complaints. PMD: Dr. Richards Time/Duration: Other (yesterday) Symptom Course: Unchanged Context: Home Past Medical History - Provider Review Nursing Documentation Reviewed: Yes - Past History Past History: No Previous - Infectious Disease Hx of Infectious Diseases: None - Tetanus Immunization Tetanus Immunization: Unknown - Cardiac Hx Cardiac Disorders: Yes Hx Congestive Heart Failure: Yes Hx Hypertension: Yes - Pulmonary Hx Respiratory Disorders: Yes Hx Asthma: Yes Hx Chronic Obstructive Pulmonary Disease (COPD): Yes - Neurological Hx Neurological Disorder: Yes HX Cerebrovascular Accident: Yes - HEENT Hx HEENT Disorder: Yes (hard of hearing) Hx Blind: No Hx Cataracts: No Hx Deafness: No Hx Difficulty Chewing: No Hx Epistaxis: No Hx Glaucoma: No Hx Macular Degeneration: No - Renal Hx Renal Disorder: Yes Hx Dialysis: Yes (TTS) Type of Dialysis Access: R chest port Date of Last Dialysis Treatment: 09/15/17 Hx Renal Cancer: No - Endocrine/Metabolic Hx Endocrine Disorders: Yes Hx Hypothyroidism: Yes - Hematological/Oncological Hx Blood Disorders: Yes Hx Blood Transfusions: Yes Hx Blood Transfusion Reaction: No - Integumentary Hx Dermatological Disorder: No (non healing sugical wound to right ankle) - Musculoskeletal/Rheumatological Hx Musculoskeletal Disorders: Yes Hx Falls: Yes Hx Unsteady Gait: Yes - Gastrointestinal Hx Gastrointestinal Disorders: Yes (FECAL IMPACTION,CONSTIPATION,POOR APPETITE, GASTRITIS) - Genitourinary/Gynecological Hx Genitourinary Disorders: No Hx Reproductive Disorders: No - Psychiatric Hx Psychophysiologic Disorder: Yes Hx Anxiety: Yes Hx Bipolar Disorder: No Hx Depression: No Hx Emotional Abuse: No Hx Hallucinations: No Hx Panic Disorder: No Hx Post Traumatic Stress Disorder: No Hx Psychosis: No Hx Physical Abuse: No Hx Schizophrenia: No Hx Sexual Abuse: No Hx Substance Use: No - Past Surgical History Past Surgical History: Unable to Obtain - Surgical History Other/Comment: port placement - Anesthesia Hx Anesthesia: Yes Hx Anesthesia Reactions: No Hx Malignant Hyperthermia: No - Suicidal Assessment Feels Threatened In Home Enviroment: No Family/Social History - Physician Review Nursing Documentation Reviewed: Yes Family/Social History: No Known Family HX Smoking Status: Former Smoker Hx Alcohol Use: No Hx Substance Use: No Hx Substance Use Treatment: No Allergies/Home Meds Allergies/Adverse Reactions: Allergies ciprofloxacin Allergy (Verified 09/17/17 13:48) RASH hydralazine Allergy (Verified 09/17/17 13:48) RASH vancomycin Allergy (Verified 09/17/17 13:48) SHORTNESS OF BREATH ct dye Allergy (Uncoded 09/17/17 13:48) RASH Home Medications: Home Meds Medication Instructions Recorded Confirmed cloNIDine [Catapres] 0.2 mg PO PRN PRN 06/04/16 09/17/17 Labetalol [Trandate] 300 mg PO Q8 08/20/17 09/17/17 NIFEdipine ER [Procardia XL] 90 mg PO DAILY 08/20/17 09/17/17 Lisinopril [Zestril] 40 mg PO ONCE 08/28/17 09/17/17 Metoprolol Tartrate [Lopressor] 100 mg PO ONCE 08/28/17 09/17/17 Zofran Tab 4 mg PO Q6 PRN 09/06/17 09/17/17 Review of Systems - Physician Review All systems were reviewed & negative as marked: Yes - Review of Systems Constitutional: absent: Fevers, Night Sweats Respiratory: SOB Cardiovascular: absent: Chest Pain Gastrointestinal: absent: Abdominal Pain, Nausea, Vomiting Physical Exam Vital Signs Reviewed: Yes Vital Signs Temp Pulse Resp BP Pulse Ox 09/17/17 19:52 67 18 206/96 H 96 09/17/17 13:56 98.4 F 76 22 200/145 H 97 Temperature: Afebrile Blood Pressure: Hypertensive Pulse: Regular Respiratory Rate: Normal Appearance: Positive for: Comfortable (resting in bed), Other (Thin) Pain Distress: None Mental Status: Positive for: Alert and Oriented X 3 - Systems Exam Head: Present: Atraumatic, Normocephalic Pupils: Present: PERRL Extroacular Muscles: Present: EOMI Conjunctiva: Present: Normal Mouth: Present: Moist Mucous Membranes Neck: Present: Normal Range of Motion Respiratory/Chest: Present: Good Air Exchange, Wheezes (coarse breath sounds). No: Respiratory Distress, Accessory Muscle Use Cardiovascular: Present: Regular Rate and Rhythm, Normal S1, S2. No: Murmurs Abdomen: Present: Normal Bowel Sounds. No: Tenderness, Distention, Peritoneal Signs Back: Present: Normal Inspection Upper Extremity: Present: Normal Inspection, Normal ROM, NORMAL PULSES. No: Cyanosis, Edema Lower Extremity: Present: Normal Inspection, NORMAL PULSES, Normal ROM, Other ( Wound dressing to right lower extremity). No: Edema Neurological: Present: GCS=15, CN II-XII Intact, Speech Normal Skin: Present: Warm, Dry, Normal Color. No: Rashes Psychiatric: Present: Alert, Oriented x 3, Normal Insight, Normal Concentration Medical Decision Making ED Course and Treatment: 09/17/17 14:55 Impression: A 57 year old female with worsening shortness of breath Plan: -- Chest xray -- Labs -- Duoneb -- Reassess and disposition Progress Notes: EKG shows NSR at 77bpm with LVH. No acute ST changes. Trop negative. Labs at baseline. Went to dialysis 09/17/17 19:29 Only scant improvement of SOB after dialysis. Reporting that she can't go home due to persistent SOB. Spoke to nurse intensive care anaesthetist and recommends TCU as patient bounceback from home. Plan to go to observation tonight and then likely TCU in morning. - Lab Interpretations Lab Results: 09/17/17 14:05 09/17/17 14:05 Lab Results 09/17/17 14:05: Sodium 137, Potassium 5.5 H, Chloride 95 L, Carbon Dioxide 25, Anion Gap 22 H, BUN 77 H, Creatinine 5.8 H, Est GFR ( Amer) 9, Est GFR ( Non-Af Amer) 8, Random Glucose 90, Calcium 9.6, Total Bilirubin 0.5, AST 34, ALT 29, Alkaline Phosphatase 96, Troponin I 0.06, Total Protein 6.5, Albumin 3.8 , Globulin 2.7, Albumin/Globulin Ratio 1.4 09/17/17 14:05: WBC 7.5, RBC 3.85, Hgb 10.7 L, Hct 35.9 L, MCV 93.2, MCH 27.8, MCHC 29.8 L, RDW 16.6 H, Plt Count 277, MPV 10.2, Gran % 71.9 H, Lymph % (Auto) 22.4, [place] % (Auto) 4.8, Eos % (Auto) 0.8 L, Baso % (Auto) 0.1, Gran # 5.35, Lymph # 1.7, [place] # 0.4, Eos # 0.1, Baso # 0.01 I have reviewed the lab results: Yes - RAD Interpretation Radiology Orders: 09/17/17 14:47 CHEST PORTABLE [RAD] Stat - Medication Orders Current Medication Orders: Hydromorphone HCl (Dilaudid) 1 mg IVP STAT STA Stop: 09/17/17 19:58 Lisinopril (Zestril) 20 mg PO STAT STA Stop: 09/17/17 19:56 Discontinued Medications Albuterol/Ipratropium (Duoneb 3 Mg/0.5 Mg (3 Ml) Ud) 3 ml IH STAT STA Stop: 09/17/17 14:53 Last Admin: 09/17/17 15:07 Dose: 3 ml Albuterol/Ipratropium (Duoneb 3 Mg/0.5 Mg (3 Ml) Ud) 3 ml IH STAT STA Stop: 09/17/17 14:53 Last Admin: 09/17/17 15:22 Dose: 3 ml Albuterol/Ipratropium (Duoneb 3 Mg/0.5 Mg (3 Ml) Ud) 3 ml IH STAT STA Stop: 09/17/17 19:28 - Scribe Statement The provider has reviewed the documentation as recorded by the Jayleen Mcclain Provider Scribe Attestation: All medical record entries made by the Scribe were at my direction and personally dictated by me. I have reviewed the chart and agree that the record accurately reflects my personal performance of the history, physical exam, medical decision making, and the department course for this patient. I have also personally directed, reviewed, and agree with the discharge instructions and disposition. Disposition/Present on Arrival - Present on Arrival Any Indicators Present on Arrival: No History of DVT/PE: Yes History of Uncontrolled Diabetes: No Urinary Catheter: No History of Decub. Ulcer: No History Surgical Site Infection Following: None - Disposition Have Diagnosis and Disposition been Completed?: Yes Diagnosis: Shortness of breath, ESRD (end stage renal disease) on dialysis Disposition: HOSPITALIZED Disposition Time: 19:29 Patient Plan: Observation Patient Problems: Current Active Problems Problem Status Onset Shortness of breath Acute Condition: FAIR
[2017-09-17 15:04] LABS: BASO # 0.01 K/mm3 (0.0-2.0); BASO % 0.1 % (0.0-3.0); EOS # 0.1 (0.0-0.7); EOS % 0.8 % (1.5-5.0); GRAN # 5.35 (1.4-6.5); GRAN % 71.9 % (50.0-68.0); HEMOGLOBIN 10.7 g/dL (12.0-16.0); LYMPH # 1.7 (1.2-3.4); LYMPH % 22.4 % (22.0-35.0); MEAN CELL VOLUME 93.2 fl (80.0-105.0); MEAN CORPUSCULAR HEMOGLOBIN 27.8 pg (25.0-35.0); MEAN CORPUSCULAR HGB CONC 29.8 g/dl (31.0-37.0); MEAN PLATELET VOLUME 10.2 fl (7.0-11.0); MONO # 0.4 (0.1-0.6); MONO % 4.8 % (1.0-6.0); RBC 3.85 10^6/uL (3.5-6.1); RED CELL DISTRIBUTION WIDTH 16.6 % (11.5-14.5); WHITE BLOOD COUNT 7.5 10^3/ul (4.5-11.0)
[2017-09-17 15:13] LABS: ALB/GLOB RATIO 1.4 (1.1-1.8); ALBUMIN 3.8 g/dL (3.0-4.8); CALCIUM 9.6 mg/dL (8.4-10.5)
[2017-09-17 15:23] LABS: TROPONIN I 0.06 ng/mL
--- NOTE | 2017-09-17 17:09 | RAD ---
HISTORY: chest pain COMPARISON: No prior. FINDINGS: LUNGS: No active pulmonary disease. PLEURA: No significant pleural effusion identified, no pneumothorax apparent. CARDIOVASCULAR: Mild cardiomegaly OSSEOUS STRUCTURES: No significant abnormalities. VISUALIZED UPPER ABDOMEN: Normal. OTHER FINDINGS: Right-sided dialysis catheter IMPRESSION: No active disease.
--- NOTE | 2017-09-17 17:40 | CARD ---
APPROVED REPORT EKG Measurement Heart [id number] <Conclusion> Normal sinus rhythm Possible Left atrial enlargement Left ventricular hypertrophy with repolarization abnormality Abnormal ECG
[2017-09-17] MEDS ORDERED: HYDROmorphone 1 mg/ml ISec IVP STA (19:55)
[2017-09-17] MEDS ORDERED: HYDROmorphone 0.5 mg/0.5 ml ISec IVP STA (19:57)
[2017-09-17] MEDS ORDERED: Metoprolol 1 mg/ml Inj IVP STA (21:19)
[2017-09-18 02:39] VITALS: BMI 19.9
--- NOTE | 2017-09-18 08:25 | CP.PCM.HP ---
<Marilynn Cain - Last Filed: 09/18/17 11:30> History of Present Illness - History of Present Illness History of Present Illness: OGY-[address] Jordan CC: Worsening dyspnea Ms Thakur, 57 F, whose PMH includes hypertension, CHF, and COPD, ESRD with hemodialysis on //Thu, and PAD presents to the emergency department complaining of worsening shortness of breath since yesterday. Last HD was on and pt did not feel improvement in breathing. Patient reports she [place] [facility] [place] "[place]D [place]ation". She reports that she did not feel well upon discharge. Pt complaint of SOB just ambulating from bedroom to bathroom, associated cough with white sputum, which was unchanged compared to last hospital discharge. Pt reports that she does not feel safe at home due to persistent SOB. Pt reported new onset diarrhea today, 6 episodes already, watery non-bloody, with abdominal cramps and nausea. Recent antibiotics on doxycyclin. At the ED, Her BP was 200/145, and improved after taking her usual bp bed and clonidine. EKG shows NSR at 77bpm with LVH. No acute ST changes. Trop is at pt 's baseline 0.06. ROS- Patient denies any fever, chills, nausea, vomiting, abdominal pain, chest pain or any other complaints. PMH CAD s/p PCI and stent CHF, Cardiomyopathy with diastolic dysfunction HTN COPD ESRD with HD T//, R chest port Peptic ulcer disease Hypothyroidism Hard of hearing Chronic anemia Hx fall, gair dysfunction Hx fecal impaction, constipation, poor appetite, gastritis Chronic ischemic R leg ulcers PSH Debridement of superficial ulceration, R leg, 09/14/17 Port placment R carotid angioplasty Bilateral leg arterial bypass, [facility] 2017 FH Former smoker SH Former smoker, quit 5 years ago, 2ppd x 40 years Denied drug/ ETOH Live with son. Independent ambulation All Ciprofloxacin, hydralaxine, CT dye, vancomycin Med Labetaol, nifedipine, metoprolol, lisinopril PMD: Dr. Richards Present on Admission - Present on Admission Any Indicators Present on Admission: No Review of Systems - Review of Systems All systems: reviewed and no additional remarkable complaints except Review of Systems: Mentioned in HPI Past Patient History - Infectious Disease Hx of Infectious Diseases: None - Tetanus Immunizations Tetanus Immunization: Unknown - Past Social History Smoking Status: Former Smoker - CARDIAC Hx Cardiac Disorders: Yes Hx Congestive Heart Failure: Yes Hx Hypercholesterolemia: Yes Hx Hypertension: Yes Hx Peripheral Vascular Disease: Yes Other/Comment: [place] x 2, DVT - PULMONARY Hx Respiratory Disorders: Yes Hx Asthma: Yes Hx Chronic Obstructive Pulmonary Disease (COPD): Yes Hx Emphysema: Yes Hx Pneumonia: Yes Hx Sleep Apnea: Yes - NEUROLOGICAL Hx Neurological Disorder: Yes HX Cerebrovascular Accident: Yes (denied) - HEENT Hx HEENT Problems: Yes (hard of hearing) Hx Blind: No Hx Cataracts: No Hx Deafness: No Hx Difficulty Chewing: No Hx Epistaxis: No Hx Glaucoma: No Hx Macular Degeneration: No - RENAL Hx Chronic Kidney Disease: Yes Hx Dialysis: Yes (TTS) Date of Last Dialysis Treatment: 09/17/17 Hx Renal (Kidney) Cancer: No Hx Renal Failure: Yes - ENDOCRINE/METABOLIC Hx Endocrine Disorders: Yes Hx Hypothyroidism: Yes - HEMATOLOGICAL/ONCOLOGICAL Hx Blood Disorders: Yes - INTEGUMENTARY Hx Dermatological Problems: No (non healing sugical wound to right ankle) - MUSCULOSKELETAL/RHEUMATOLOGICAL Hx Musculoskeletal Disorders: Yes Hx Arthritis: Yes Hx Back Pain: Yes Hx Falls: No Hx Osteoarthritis: Yes Hx Unsteady Gait: Yes - GASTROINTESTINAL Hx Gastrointestinal Disorders: Yes (FECAL IMPACTION,CONSTIPATION,POOR APPETITE, GASTRITIS) Hx Diverticulitis: Yes - GENITOURINARY/GYNECOLOGICAL Hx Genitourinary Disorders: No - PSYCHIATRIC Hx Psychophysiologic Disorder: Yes Hx Anxiety: Yes Hx Bipolar Disorder: No Hx Depression: No Hx Emotional Abuse: No Hx Hallucinations: No Hx Panic Symptoms: No Hx Post Traumatic Stress Disorder: No Hx Psychosis: No Hx Physical Abuse: No Hx Schizophrenia: No Hx Sexual Abuse: No Hx Substance Use: No - SURGICAL HISTORY Hx Surgeries: Yes Hx Appendectomy: Yes Hx Cardiac Catheterization: Yes Hx Coronary Stent: Yes Other/Comment: port placement dialysis cath, R arm graft ( not functioning0 - ANESTHESIA Hx Anesthesia: Yes Hx Anesthesia Reactions: No Hx Malignant Hyperthermia: No Meds Allergies/Adverse Reactions: Allergies Allergy/AdvReac Type Severity Reaction Status Date / Time ciprofloxacin Allergy RASH Verified 09/18/17 03:12 hydralazine Allergy RASH Verified 09/18/17 03:12 vancomycin Allergy SHORTNESS Verified 09/18/17 03:[address] dye Allergy RASH Uncoded 09/18/17 03:12 Physical Exam - Constitutional Appears: No Acute Distress - Head Exam Head Exam: ATRAUMATIC, NORMAL INSPECTION, NORMOCEPHALIC - Eye Exam Eye Exam: EOMI, Normal appearance, PERRL. absent: Scleral icterus Pupil Exam: NORMAL ACCOMODATION - ENT Exam ENT Exam: Mucous Membranes Moist - Neck Exam Additional comments: supple - Respiratory Exam Respiratory Exam: Clear to Auscultation Bilateral, Rales (mild crackles lung bases), Wheezes - Cardiovascular Exam Cardiovascular Exam: REGULAR RHYTHM, +S1, +S2, Systolic Murmur - GI/Abdominal Exam GI & Abdominal Exam: Hypoactive Bowel Sounds, Soft, Tenderness (diffuse all 4 quadrants). absent: Firm, Guarding, Rigid - Extremities Exam Extremities exam: Negative for: calf tenderness Additional comments: dressings - Neurological Exam Neurological exam: Alert, Oriented x3 - Psychiatric Exam Psychiatric exam: Normal Affect, Normal Mood - Skin Skin Exam: Dry, Warm Results - Vital Signs Recent Vital Signs: Last Vital Signs Temp 98.1 F 09/18/17 01:23 Pulse 73 09/18/17 01:23 Resp 20 09/18/17 01:23 BP 160/82 H 09/18/17 01:23 Pulse Ox 99 09/17/17 23:59 - Labs Result Diagrams: 09/17/17 14:05 09/17/17 14:05 Assessment & Plan - Assessment and Plan (Free Text) Plan: Ms Thakur, 57 F, whose PMH includes hypertension, CAD s/p PCI, CHF, and COPD, ESRD with hemodialysis on //Thu, and PAD presents to the emergency department complaining of worsening shortness of breath one day after hospital discharge for PNA/COPD exacerbation. Pt has new onset watery diarrhea today, 6 episodes thus far, likely antibiotic side effect. Her BP was in 200s without signs of end organ damage, and BP was corrected by home BP meds and clonidine. BP is likely due to rebound from home bp meds. CXR no active disease. Dyspnea Possibly Asthmatic bronchitic vs fluid overload vs anemia COPD, chronic - CXR no active disease - O2 prn, titrate to POx above 92% - Duoneb pRn - - Consider solu-medrol, phenergen - Pulm consult CHF, systolic HTN urgency - resolved CAD s/p PCI - EKG shows NSR at 77bpm with LVH. No acute ST changes. Trop negative at baseline 0.06 - Plavix, Labetalol 300 q8, Metoprolol 100 Brk, nifedipine 90 qd - Clonidine 0.2 TID New onset diarrhea with nausea, with recent antibiotcis Abdominal [pain - GI consult - liquid diet - Pepcid 20 IV, zofran PRN - Pending C diff toxin - pending flat plate - dilaudid prn R lower leg ulcer, possibly secondary to calciphylax - Podiatry consult Anemia due to renal disease, stable, at baseline Hb 10 Hypothyrodism - Levothyroxine 75 mcg ESRD on HD - Nephro consult HyperK - asymptomatic, no EKG changes, will be corrected in HD Deconditioning - PT/OT Consider DVT prophylaxis due to PAD, CAD s/p PCI s/r/d/w Dr. Richards <Jose Richards S - Last Filed: 09/18/17 17:31> Results - Vital Signs Recent Vital Signs: Last Vital Signs Temp 97.7 F 09/18/17 06:00 Pulse 68 09/18/17 09:55 Resp 20 09/18/17 06:00 BP 180/94 H 09/18/17 17:11 Pulse Ox 100 09/18/17 06:00 - Labs Result Diagrams: 09/17/17 14:05 09/17/17 14:05 Assessment & Plan - Assessment and Plan (Free Text) Plan: Pt seen and examined by me. I reviewed the above note and the ER note. Agree with the Assessment and plan. Reviewed old notes. Reviewed labs and medications. Continue with HD. She did not feel better after HD. Will get eval by Pulm and GI.
[2017-09-18] MEDS: Levothyroxine 75 MCG TAB PO SCH (08:55)
[2017-09-18] MEDS: NIFEdipine 90 mg ER Tab PO SCH (09:00)
[2017-09-18] MEDS: Albuterol-Ipratrop 3 mg / 0.5 (3 ml) UD IH SCH ×3 (09:51→21:01)
[2017-09-18] MEDS: HYDROmorphone 0.5 mg/0.5 ml ISec IVP PRN ×2 (11:49→20:53)
--- NOTE | 2017-09-18 12:25 | RAD ---
HISTORY: nausea, vomiting COMPARISON: No prior. FINDINGS: BOWEL: Normal. No obstruction. No free air. BONES: Normal. OTHER FINDINGS: None. IMPRESSION: No active disease.
--- NOTE | 2017-09-18 14:35 | CP.PCM.CON ---
<Britta Wheeler - Last Filed: 09/18/17 14:34> History of Present Illness - History of Present Illness History of Present Illness: Seen and examined at the bedside earlier today, chart reviewed. Request for GI consult for diarrhea. HPI: This is a 57-year-old female with a past medical history end-stage renal disease on dialysis, hypertension, CHF, peptic ulcer disease, chronic anemia recently discharged from [facility] [place] on 110 4 for resected PNA/COPD exacerbation. The patient stated that upon discharge she had increasing shortness of breath and return to the hospital. The patient is known to our service from previous admissions. She appears cachectic and reports that she is lost about 90 pounds since her surgery in April at [facility] for bilateral leg arterial bypass. She currently complains of nausea and had vomitus, it was clear no hematemesis or coffee ground vomitus. The patient states that she had a decreased appetite and has been unable to tolerate any oral intake since that time as well. She has had no recent EGD/colon since 2014. She she does complain of chronic reflux. The patient started having diarrhea today no reports of any melena or bright red blood per rectum. The patient does have history of recent antibiotic use from hospitalization. In review of records she had scan of abdomen and pelvis with no IV or oral contrast that reported cholelithiasis no acute findings, gastric wall appears thickened and retained fecal material in the colon but no obstruction. Review of CT scan report can BE seen in [facility]. Past medical history: end-stage renal disease on dialysis T//, pulmonary hypertension, chronic anemia, carotid stenosis status post carotid stent placement, hypertension, gastritis, COPD, colon polyps, diverticulosis, peptic ulcer disease, hypothyroidism, history of constipation Surgical history: Carotid stent placement, recent bilateral leg arterial bypass , most recent EGD and colonoscopy was in 2014, found to have gastritis, diverticulosis and colon polyps. Colon polyps were reported to be tubular adenoma. Family history: Noncontributory this time Social history: Former heavy smoker, denies EtOH or substance abuse Medications: Reviewed as per MAR Allergies: Ciprofloxacin, hydralazine, vancomycin and IV contrast ROS: Systems reviewed and positive finding see HPI. Past Patient History - Infectious Disease Hx of Infectious Diseases: None - Tetanus Immunizations Tetanus Immunization: Unknown - Past Social History Smoking Status: Former Smoker - CARDIAC Hx Cardiac Disorders: Yes Hx Congestive Heart Failure: Yes Hx Hypercholesterolemia: Yes Hx Hypertension: Yes Hx Peripheral Vascular Disease: Yes Other/Comment: [place] x 2, DVT - PULMONARY Hx Respiratory Disorders: Yes Hx Asthma: Yes Hx Chronic Obstructive Pulmonary Disease (COPD): Yes Hx Emphysema: Yes Hx Pneumonia: Yes Hx Sleep Apnea: Yes - NEUROLOGICAL Hx Neurological Disorder: Yes HX Cerebrovascular Accident: Yes (denied) - HEENT Hx HEENT Problems: Yes (hard of hearing) Hx Blind: No Hx Cataracts: No Hx Deafness: No Hx Difficulty Chewing: No Hx Epistaxis: No Hx Glaucoma: No Hx Macular Degeneration: No - RENAL Hx Chronic Kidney Disease: Yes Hx Dialysis: Yes (TTS) Date of Last Dialysis Treatment: 09/17/17 Hx Renal (Kidney) Cancer: No Hx Renal Failure: Yes - ENDOCRINE/METABOLIC Hx Endocrine Disorders: Yes Hx Hypothyroidism: Yes - HEMATOLOGICAL/ONCOLOGICAL Hx Blood Disorders: Yes - INTEGUMENTARY Hx Dermatological Problems: No (non healing sugical wound to right ankle) - MUSCULOSKELETAL/RHEUMATOLOGICAL Hx Musculoskeletal Disorders: Yes Hx Arthritis: Yes Hx Back Pain: Yes Hx Falls: No Hx Osteoarthritis: Yes Hx Unsteady Gait: Yes - GASTROINTESTINAL Hx Gastrointestinal Disorders: Yes (FECAL IMPACTION,CONSTIPATION,POOR APPETITE, GASTRITIS) Hx Diverticulitis: Yes - GENITOURINARY/GYNECOLOGICAL Hx Genitourinary Disorders: No - PSYCHIATRIC Hx Psychophysiologic Disorder: Yes Hx Anxiety: Yes Hx Bipolar Disorder: No Hx Depression: No Hx Emotional Abuse: No Hx Hallucinations: No Hx Panic Symptoms: No Hx Post Traumatic Stress Disorder: No Hx Psychosis: No Hx Physical Abuse: No Hx Schizophrenia: No Hx Sexual Abuse: No Hx Substance Use: No - SURGICAL HISTORY Hx Surgeries: Yes Hx Appendectomy: Yes Hx Cardiac Catheterization: Yes Hx Coronary Stent: Yes Other/Comment: port placement dialysis cath, R arm graft ( not functioning0 - ANESTHESIA Hx Anesthesia: Yes Hx Anesthesia Reactions: No Hx Malignant Hyperthermia: No Meds Allergies/Adverse Reactions: Allergies Allergy/AdvReac Type Severity Reaction Status Date / Time ciprofloxacin Allergy RASH Verified 09/18/17 03:12 hydralazine Allergy RASH Verified 09/18/17 03:12 vancomycin Allergy SHORTNESS Verified 09/18/17 03:[address] dye Allergy RASH Uncoded 09/18/17 03:12 - Medications Medications: Current Medications Albuterol/Ipratropium (Duoneb 3 Mg/0.5 Mg (3 Ml) Ud) 3 ml IH TIDRESP [facility] Last Admin: 09/18/17 13:09 Dose: 3 ml Clonidine HCl (Catapres) 0.2 mg PO TID [facility] Last Admin: 09/18/17 09:00 Dose: Not Given Clopidogrel Bisulfate (Plavix) 75 mg PO DAILY [facility] Last Admin: 09/18/17 09:00 Dose: Not Given Famotidine (Pepcid) 20 mg IVP DAILY [facility] Last Admin: 09/18/17 10:46 Dose: 20 mg Furosemide (Lasix) 40 mg IVP DAILY [facility] Last Admin: 09/18/17 11:49 Dose: 40 mg Hydromorphone HCl (Dilaudid) 1 mg IVP Q4H PRN PRN Reason: pain severe Last Admin: 09/18/17 11:49 Dose: 1 mg Labetalol HCl (Trandate) 300 mg PO Q8 [facility] Last Admin: 09/18/17 08:56 Dose: Not Given Levothyroxine Sodium (Synthroid) 75 mcg PO ACB [facility] Last Admin: 09/18/17 08:55 Dose: Not Given Metoprolol Tartrate (Lopressor) 100 mg PO BRK [facility] Last Admin: 09/18/17 08:55 Dose: Not Given Nifedipine (Procardia Xl) 90 mg PO DAILY [facility] Last Admin: 09/18/17 09:00 Dose: Not Given Ondansetron HCl (Zofran Inj) 4 mg IVP Q4H PRN PRN Reason: Nausea/Vomiting Last Admin: 09/18/17 07:45 Dose: 4 mg Physical Exam - Constitutional Appears: Cachectic - Eye Exam Eye Exam: Normal appearance. absent: Scleral icterus - ENT Exam ENT Exam: Mucous Membranes Moist - Neck Exam Neck exam: Positive for: Normal Inspection - Respiratory Exam Respiratory Exam: Decreased Breath Sounds, Rales, NORMAL BREATHING PATTERN. absent: Wheezes, Respiratory Distress - Cardiovascular Exam Cardiovascular Exam: +S1, +S2 - GI/Abdominal Exam GI & Abdominal Exam: Normal Bowel Sounds, Soft, Tenderness. absent: Guarding, Organomegaly, Rebound Additional comments: diffuse tenderness throughout abdomen - Extremities Exam Extremities exam: Negative for: calf tenderness Additional comments: positive dressing - Neurological Exam Neurological exam: Alert, Oriented x3 - Skin Skin Exam: Dry, Warm Results - Vital Signs Recent Vital Signs: Last Vital Signs Temp 98.1 F 09/18/17 01:23 Pulse 68 09/18/17 09:55 Resp 20 09/18/17 01:23 BP 165/70 H 09/18/17 11:49 Pulse Ox 99 09/17/17 23:59 - Labs Result Diagrams: 09/17/17 14:05 09/17/17 14:05 Assessment & Plan - Assessment and Plan (Free Text) Assessment: Assessment: Diarrhea, with nausea, vomiting and abdominal pain, history of recent antibiotic use, rule out C. difficile Dyspnea, status post recent exacerbation of COPD/P&A CHF Chronic anemia Hypertension COPD End stage renal disease on dialysis CAD status post PCI Gastritis, Reflux disease Plan: Change diet to clear liquids Placed on low-dose Pepcid 20 mg IV Zofran when necessary Pending stool for C. difficile Monitor electrolytes on Plavix abdominal xray negative for obstruction or free air Thank you for this consult and for allowing us to participate in your patient's care, further recommendations based upon clinical course. Seen and discussed with Dr. Bermudez. <James Bermudez V - Last Filed: 09/18/17 20:06> Meds - Medications Medications: Current Medications Albuterol/Ipratropium (Duoneb 3 Mg/0.5 Mg (3 Ml) Ud) 3 ml IH TIDRESP [facility] Last Admin: 09/18/17 13:09 Dose: 3 ml Clonidine HCl (Catapres) 0.2 mg PO TID [facility] Last Admin: 09/18/17 17:11 Dose: 0.2 mg Clopidogrel Bisulfate (Plavix) 75 mg PO DAILY [facility] Last Admin: 09/18/17 09:00 Dose: Not Given Doxycycline Hyclate (Doryx) 100 mg PO Q12 [facility] PRN Reason: Protocol Famotidine (Pepcid) 20 mg IVP DAILY [facility] Last Admin: 09/18/17 10:46 Dose: 20 mg Furosemide (Lasix) 40 mg IVP DAILY [facility] Last Admin: 09/18/17 11:49 Dose: 40 mg Hydromorphone HCl (Dilaudid) 1 mg IVP Q4H PRN PRN Reason: pain severe Last Admin: 09/18/17 11:49 Dose: 1 mg Labetalol HCl (Trandate) 300 mg PO Q8 [facility] Last Admin: 09/18/17 14:34 Dose: 300 mg Levothyroxine Sodium (Synthroid) 75 mcg PO ACB [facility] Last Admin: 09/18/17 08:55 Dose: Not Given Methylprednisolone (Solu-Medrol) 40 mg IVP Q12 [facility] Metoprolol Tartrate (Lopressor) 100 mg PO BRK [facility] Last Admin: 09/18/17 08:55 Dose: Not Given Montelukast Sodium (Singulair) 10 mg PO HS [facility] Nifedipine (Procardia Xl) 90 mg PO DAILY [facility] Last Admin: 09/18/17 09:00 Dose: Not Given Ondansetron HCl (Zofran Inj) 4 mg IVP Q4H PRN PRN Reason: Nausea/Vomiting Last Admin: 09/18/17 07:45 Dose: 4 mg Results - Vital Signs Recent Vital Signs: Last Vital Signs Temp 97.7 F 09/18/17 06:00 Pulse 68 09/18/17 09:55 Resp 20 09/18/17 06:00 BP 180/94 H 09/18/17 17:11 Pulse Ox 100 09/18/17 06:00 - Labs Result Diagrams: 09/17/17 14:05 09/17/17 14:05 Attending/Attestation - Attestation I have personally seen and examined this patient.: Yes I have fully participated in the care of the patient.: Yes I have reviewed all pertinent clinical information: Yes Notes (Text): This is an addendum to GI consult report dictated by Britta Wheeler APN.The patient was seen and examined earlier. Medical records, lab studies, imagings were reviewed. Last 24 hours events reviewed. Agreed with the above treatment plan as outlined in Britta Wheeler APN's notes the with the addition of the following recurrent episodes of vomiting She is unable to keep food down Patient has history of gastroparesis Significant weight loss On examination abdomen soft. Mild tenderness on deep palpation in the epigastric area otherwise unremarkable Sleep with significant peripheral vascular disease Pured diet continue Pepcid 09/18/17 20:06
--- NOTE | 2017-09-18 17:20 | CP.PCM.CON ---
<Trevor De La Rosa - Last Filed: 09/18/17 17:20> History of Present Illness - History of Present Illness History of Present Illness: 57 year old female with PMHx end-stage renal disease on dialysis, hypertension, CHF, peptic ulcer disease, chronic anemia seen at bedside four days s/p right leg ulcer debridement with application of Purapply graft. Patient is AAO x 3 and NAD, resting comfortably in bed at time of visit. Patient denies any acute overnight events and states that her pain is well controlled. Denies any further pedal complaints. Denies N/V/F/C/CP/SOB/D/posterior calf pain Review of Systems - Review of Systems Review of Systems: ROS as per HPI Past Patient History - Infectious Disease Hx of Infectious Diseases: None - Tetanus Immunizations Tetanus Immunization: Unknown - Past Social History Smoking Status: Former Smoker - CARDIAC Hx Cardiac Disorders: Yes Hx Congestive Heart Failure: Yes Hx Hypercholesterolemia: Yes Hx Hypertension: Yes Hx Peripheral Vascular Disease: Yes Other/Comment: NM x 2, DVT - PULMONARY Hx Respiratory Disorders: Yes Hx Asthma: Yes Hx Chronic Obstructive Pulmonary Disease (COPD): Yes Hx Emphysema: Yes Hx Pneumonia: Yes Hx Sleep Apnea: Yes - NEUROLOGICAL Hx Neurological Disorder: Yes HX Cerebrovascular Accident: Yes (denied) - HEENT Hx HEENT Problems: Yes (hard of hearing) Hx Blind: No Hx Cataracts: No Hx Deafness: No Hx Difficulty Chewing: No Hx Epistaxis: No Hx Glaucoma: No Hx Macular Degeneration: No - RENAL Hx Chronic Kidney Disease: Yes Hx Dialysis: Yes (TTS) Date of Last Dialysis Treatment: 09/17/17 Hx Renal (Kidney) Cancer: No Hx Renal Failure: Yes - ENDOCRINE/METABOLIC Hx Endocrine Disorders: Yes Hx Hypothyroidism: Yes - HEMATOLOGICAL/ONCOLOGICAL Hx Blood Disorders: Yes - INTEGUMENTARY Hx Dermatological Problems: No (non healing sugical wound to right ankle) - MUSCULOSKELETAL/RHEUMATOLOGICAL Hx Musculoskeletal Disorders: Yes Hx Arthritis: Yes Hx Back Pain: Yes Hx Falls: No Hx Osteoarthritis: Yes Hx Unsteady Gait: Yes - GASTROINTESTINAL Hx Gastrointestinal Disorders: Yes (FECAL IMPACTION,CONSTIPATION,POOR APPETITE, GASTRITIS) Hx Diverticulitis: Yes - GENITOURINARY/GYNECOLOGICAL Hx Genitourinary Disorders: No - PSYCHIATRIC Hx Psychophysiologic Disorder: Yes Hx Anxiety: Yes Hx Bipolar Disorder: No Hx Depression: No Hx Emotional Abuse: No Hx Hallucinations: No Hx Panic Symptoms: No Hx Post Traumatic Stress Disorder: No Hx Psychosis: No Hx Physical Abuse: No Hx Schizophrenia: No Hx Sexual Abuse: No Hx Substance Use: No - SURGICAL HISTORY Hx Surgeries: Yes Hx Appendectomy: Yes Hx Cardiac Catheterization: Yes Hx Coronary Stent: Yes Other/Comment: port placement dialysis cath, R arm graft ( not functioning0 - ANESTHESIA Hx Anesthesia: Yes Hx Anesthesia Reactions: No Hx Malignant Hyperthermia: No Meds Allergies/Adverse Reactions: Allergies Allergy/AdvReac Type Severity Reaction Status Date / Time ciprofloxacin Allergy RASH Verified 09/18/17 03:12 hydralazine Allergy RASH Verified 09/18/17 03:12 vancomycin Allergy SHORTNESS Verified 09/18/17 03:[address] dye Allergy RASH Uncoded 09/18/17 03:12 - Medications Medications: Current Medications Albuterol/Ipratropium (Duoneb 3 Mg/0.5 Mg (3 Ml) Ud) 3 ml IH TIDRESP [facility] Last Admin: 09/18/17 13:09 Dose: 3 ml Clonidine HCl (Catapres) 0.2 mg PO TID [facility] Last Admin: 09/18/17 17:11 Dose: 0.2 mg Clopidogrel Bisulfate (Plavix) 75 mg PO DAILY [facility] Last Admin: 09/18/17 09:00 Dose: Not Given Famotidine (Pepcid) 20 mg IVP DAILY [facility] Last Admin: 09/18/17 10:46 Dose: 20 mg Furosemide (Lasix) 40 mg IVP DAILY [facility] Last Admin: 09/18/17 11:49 Dose: 40 mg Hydromorphone HCl (Dilaudid) 1 mg IVP Q4H PRN PRN Reason: pain severe Last Admin: 09/18/17 11:49 Dose: 1 mg Labetalol HCl (Trandate) 300 mg PO Q8 [facility] Last Admin: 09/18/17 14:34 Dose: 300 mg Levothyroxine Sodium (Synthroid) 75 mcg PO ACB [facility] Last Admin: 09/18/17 08:55 Dose: Not Given Metoprolol Tartrate (Lopressor) 100 mg PO BRK [facility] Last Admin: 09/18/17 08:55 Dose: Not Given Nifedipine (Procardia Xl) 90 mg PO DAILY [facility] Last Admin: 09/18/17 09:00 Dose: Not Given Ondansetron HCl (Zofran Inj) 4 mg IVP Q4H PRN PRN Reason: Nausea/Vomiting Last Admin: 09/18/17 07:45 Dose: 4 mg Physical Exam - Constitutional Appears: Well, Non-toxic, No Acute Distress - Extremities Exam Additional comments: Dressings to RLE are C/D/I Dressings were left on due to graft application Vasc: DP/PT pulses palpable 2/4 b/l. Skin temperature warm to warm from proximal to distal. CFT < 3 seconds to all digits b/l. No edema noted b/l Neuro: Epicritic and protective sensation grossly intact b/l - Neurological Exam Neurological exam: Alert, Oriented x3 - Psychiatric Exam Psychiatric exam: Normal Affect, Normal Mood Results - Vital Signs Recent Vital Signs: Last Vital Signs Temp 97.7 F 09/18/17 06:00 Pulse 68 09/18/17 09:55 Resp 20 09/18/17 06:00 BP 180/94 H 09/18/17 17:11 Pulse Ox 100 09/18/17 06:00 - Labs Result Diagrams: 09/17/17 14:05 09/17/17 14:05 Assessment & Plan - Assessment and Plan (Free Text) Assessment: 57 year old female seen at bedside four days s/p right leg ulcer debridement ( DOS 09/14/17) with application of Purapply graft Plan: Patient seen and evaluated at bedside Afebrile, Absent leukocytosis Patient's dressings left intact due to graft application Dressing will be changed on Thursday if patient is still inhouse Podiatry will continue to follow while patient in house - Date & Time Date: 09/18/17 Time: 17:23 <Dougie Forte - Last Filed: 09/19/17 08:31> Meds - Medications Medications: Current Medications Albuterol/Ipratropium (Duoneb 3 Mg/0.5 Mg (3 Ml) Ud) 3 ml IH TIDRESP [facility] Last Admin: 09/19/17 08:24 Dose: Not Given Clonidine HCl (Catapres) 0.2 mg PO TID [facility] Last Admin: 09/18/17 17:11 Dose: 0.2 mg Clopidogrel Bisulfate (Plavix) 75 mg PO DAILY [facility] Last Admin: 09/18/17 09:00 Dose: Not Given Doxycycline Hyclate (Doryx) 100 mg PO Q12 [facility] PRN Reason: Protocol Last Admin: 09/18/17 22:30 Dose: 100 mg Famotidine (Pepcid) 20 mg IVP DAILY [facility] Last Admin: 09/18/17 10:46 Dose: 20 mg Furosemide (Lasix) 40 mg IVP DAILY [facility] Last Admin: 09/18/17 11:49 Dose: 40 mg Hydromorphone HCl (Dilaudid) 1 mg IVP Q4H PRN PRN Reason: pain severe Last Admin: 09/19/17 03:30 Dose: 1 mg Labetalol HCl (Trandate) 300 mg PO Q8 [facility] Last Admin: 09/19/17 06:55 Dose: Not Given Levothyroxine Sodium (Synthroid) 75 mcg PO ACB [facility] Last Admin: 09/18/17 08:55 Dose: Not Given Methylprednisolone (Solu-Medrol) 40 mg IVP Q12 [facility] Last Admin: 09/18/17 22:40 Dose: 40 mg Metoprolol Tartrate (Lopressor) 100 mg PO BRK [facility] Last Admin: 09/18/17 08:55 Dose: Not Given Montelukast Sodium (Singulair) 10 mg PO HS [facility] Last Admin: 09/18/17 22:40 Dose: 10 mg Nifedipine (Procardia Xl) 90 mg PO DAILY [facility] Last Admin: 09/18/17 09:00 Dose: Not Given Ondansetron HCl (Zofran Inj) 4 mg IVP Q4H PRN PRN Reason: Nausea/Vomiting Last Admin: 09/18/17 23:23 Dose: 4 mg Sevelamer HCl (Renagel) 800 mg PO [facility] Results - Vital Signs Recent Vital Signs: Last Vital Signs Temp 98.8 F 09/18/17 20:45 Pulse 67 09/19/17 04:36 Resp 20 09/18/17 20:45 BP 194/88 H 09/19/17 04:36 Pulse Ox 99 09/18/17 20:45 - Labs Result Diagrams: 09/19/17 06:15 09/19/17 06:15 Labs: Laboratory Results - last 24 hr 09/19/17 09/19/17 06:15 06:15 WBC 4.4 L D RBC 3.62 Hgb 10.4 L Hct 34.0 L MCV 93.9 MCH 28.7 MCHC 30.6 L RDW 17.1 H Plt Count 207 MPV 11.0 Gran % 85.8 H Lymph % (Auto) 11.0 L [place] % (Auto) 2.3 Eos % (Auto) 0.2 L Baso % (Auto) 0.7 Gran # 3.73 Lymph # 0.5 L [place] # 0.1 Eos # 0.0 Baso # 0.03 Sodium 135 Potassium 5.0 Chloride 94 L Carbon Dioxide 26 Anion Gap 20 BUN 58 H Creatinine 4.8 H Est GFR ( Amer) 11 Est GFR (Non-Af Amer) 9 Random Glucose 110 Calcium 9.4 Phosphorus 7.9 H Magnesium 1.8 Total Bilirubin 0.5 AST 26 ALT 34 Alkaline Phosphatase 75 Total Protein 5.5 L Albumin 3.3 Globulin 2.1 Albumin/Globulin Ratio 1.6 Attending/Attestation - Attestation I have personally seen and examined this patient.: Yes I have fully participated in the care of the patient.: Yes I have reviewed all pertinent clinical information: Yes
[2017-09-18] MEDS: MethylPREDNISolone 40 mg Vial IVP SCH (22:40)
--- NOTE | 2017-09-18 23:19 | CP.PCM.PN ---
Subjective - Date & Time of Evaluation Date of Evaluation: 09/18/17 Time of Evaluation: 23:15 - Subjective Subjective: Patient was seen at bedside. She was given clonidine 0.2 mg PO for her blood pressure of 190/97 at 22:07. Denied any head ache , dizziness, nausea, chest pain, sob. Medical reocord was reviewed. BP at 11:12 PM was 175/73 after the clonidine. Medical record was reviewed. This 57 year old woman was admitted with worsening sob/asthma/CHF. Has PMH of CHF, asthma/COPOD, ESRD, HTN, on hemodialysis, PUD, cardiomyopathy, hypothyroidism, gait dysfunction, chronic leg ulcers. Objective - Vital Signs/Intake and Output Vital Signs (last 24 hours): Temp Pulse Resp BP Pulse Ox 98.8 F 74 20 190/97 H 99 09/18/17 20:45 09/18/17 22:07 09/18/17 20:45 09/18/17 22:07 09/18/17 20:45 Intake and Output: 09/18/17 09/19/17 18:59 06:59 Intake Total 120 Output Total 1 Balance 119 - Medications Medications: Current Medications Albuterol/Ipratropium (Duoneb 3 Mg/0.5 Mg (3 Ml) Ud) 3 ml IH TIDRESP [facility] Last Admin: 09/18/17 21:01 Dose: 3 ml Clonidine HCl (Catapres) 0.2 mg PO TID [facility] Last Admin: 09/18/17 17:11 Dose: 0.2 mg Clopidogrel Bisulfate (Plavix) 75 mg PO DAILY [facility] Last Admin: 09/18/17 09:00 Dose: Not Given Doxycycline Hyclate (Doryx) 100 mg PO Q12 [facility] PRN Reason: Protocol Famotidine (Pepcid) 20 mg IVP DAILY [facility] Last Admin: 09/18/17 10:46 Dose: 20 mg Furosemide (Lasix) 40 mg IVP DAILY [facility] Last Admin: 09/18/17 11:49 Dose: 40 mg Hydromorphone HCl (Dilaudid) 1 mg IVP Q4H PRN PRN Reason: pain severe Last Admin: 09/18/17 20:53 Dose: 1 mg Labetalol HCl (Trandate) 300 mg PO Q8 [facility] Last Admin: 09/18/17 14:34 Dose: 300 mg Levothyroxine Sodium (Synthroid) 75 mcg PO ACB [facility] Last Admin: 09/18/17 08:55 Dose: Not Given Methylprednisolone (Solu-Medrol) 40 mg IVP Q12 [facility] Metoprolol Tartrate (Lopressor) 100 mg PO BRK [facility] Last Admin: 09/18/17 08:55 Dose: Not Given Montelukast Sodium (Singulair) 10 mg PO HS [facility] Nifedipine (Procardia Xl) 90 mg PO DAILY [facility] Last Admin: 09/18/17 09:00 Dose: Not Given Ondansetron HCl (Zofran Inj) 4 mg IVP Q4H PRN PRN Reason: Nausea/Vomiting Last Admin: 09/18/17 07:45 Dose: 4 mg - Labs Labs: Most Recent Lab Values WBC 7.5 10^3/ul (4.5-11.0) 09/17/17 14:05 RBC 3.85 10^6/uL (3.5-6.1) 09/17/17 14:05 Hgb 10.7 g/dL (12.0-16.0) L 09/17/17 14:05 Hct 35.9 % (36.0-48.0) L 09/17/17 14:05 MCV 93.2 fl (80.0-105.0) 09/17/17 14:05 MCH 27.8 pg (25.0-35.0) 09/17/17 14:05 MCHC 29.8 g/dl (31.0-37.0) L 09/17/17 14:05 RDW 16.6 % (11.5-14.5) H 09/17/17 14:05 Plt Count 277 10^3/uL (120.0-450.0) 09/17/17 14:05 MPV 10.2 fl (7.0-11.0) 09/17/17 14:05 Gran % 71.9 % (50.0-68.0) H 09/17/17 14:05 Lymph % (Auto) 22.4 % (22.0-35.0) 09/17/17 14:05 [place] % (Auto) 4.8 % (1.0-6.0) 09/17/17 14:05 Eos % (Auto) 0.8 % (1.5-5.0) L 09/17/17 14:05 Baso % (Auto) 0.1 % (0.0-3.0) 09/17/17 14:05 Gran # 5.35 (1.4-6.5) 09/17/17 14:05 Lymph # 1.7 (1.2-3.4) 09/17/17 14:05 [place] # 0.4 (0.1-0.6) 09/17/17 14:05 Eos # 0.1 (0.0-0.7) 09/17/17 14:05 Baso # 0.01 K/mm3 (0.0-2.0) 09/17/17 14:05 Sodium 137 mmol/L (132-148) 09/17/17 14:05 Potassium 5.5 mmol/L (3.6-5.0) H 09/17/17 14:05 Chloride 95 mmol/L (98-107) L 09/17/17 14:05 Carbon Dioxide 25 mmol/L (21-33) 09/17/17 14:05 Anion Gap 22 (10-20) H 09/17/17 14:05 BUN 77 mg/dL (7-21) H 09/17/17 14:05 Creatinine 5.8 mg/dl (0.7-1.2) H 09/17/17 14:05 Est GFR ( Amer) 9 09/17/17 14:05 Est GFR (Non-Af Amer) 8 09/17/17 14:05 Random Glucose 90 mg/dL (70-110) 09/17/17 14:05 Calcium 9.6 mg/dL (8.4-10.5) 09/17/17 14:05 Total Bilirubin 0.5 mg/dL (0.2-1.3) 09/17/17 14:05 AST 34 U/L (14-36) 09/17/17 14:05 ALT 29 U/L (7-56) 09/17/17 14:05 Alkaline Phosphatase 96 U/L (38-126) 09/17/17 14:05 Troponin I 0.06 ng/mL 09/17/17 14:05 Total Protein 6.5 g/dL (5.8-8.3) 09/17/17 14:05 Albumin 3.8 g/dL (3.0-4.8) 09/17/17 14:05 Globulin 2.7 gm/dL 09/17/17 14:05 Albumin/Globulin Ratio 1.4 (1.1-1.8) 09/17/17 14:05 - Constitutional Appears: Well, No Acute Distress - Head Exam Head Exam: ATRAUMATIC, NORMAL INSPECTION, NORMOCEPHALIC - Eye Exam Eye Exam: Normal appearance - ENT Exam ENT Exam: Normal External Ear Exam - Neck Exam Neck Exam: Normal Inspection - Respiratory Exam Respiratory Exam: NORMAL BREATHING PATTERN - Cardiovascular Exam Cardiovascular Exam: absent: JVD - GI/Abdominal Exam GI & Abdominal Exam: absent: Distended - Rectal Exam Rectal Exam: Deferred - Exam Additional comments: Deferred. - Extremities Exam Extremities Exam: Normal Inspection - Back Exam Back Exam: NORMAL INSPECTION - Neurological Exam Neurological Exam: Alert, Awake - Psychiatric Exam Psychiatric exam: Normal Affect, Normal Mood - Skin Skin Exam: Normal Color Assessment and Plan - Assessment and Plan (Free Text) Assessment: Elevated blood pressure reading. CHF. HTN. Asthma. COPD. ESRD. PUD. Hypothyroidism. Cardiomyopatht. Plan: Clonidine 0.2 mg po stat. Continue present management.
--- NOTE | 2017-09-18 23:49 | CON ---
DATE: 09/18/2017 REASON FOR CONSULTATION: Nausea, vomiting, diarrhea, shortness of breath, ESRD. HISTORY OF PRESENT ILLNESS: A 57-year-old lady known to me from multiple evaluations, the patient was just discharged home on Thursday. She presented to the emergency room yesterday with complaints of shortness of breath. She went to the Emergency Room instead of going to the dialysis unit. She was dialyzed from the ER. Subsequently, she was admitted because of shortness of breath. Also she complained of severe constipation. Subsequently, now she has diarrhea. She reports four explosive bowel movements, liquid. Also complaining of abdominal pain. She is also complaining of vomiting. Her breathing is labored. She also complains of wheezing. PAST MEDICAL AND SURGICAL HISTORY: Severe hypertension, COPD, recent bronchitis/URI, ESRD, pulmonary hypertension, peripheral vascular disease, accelerated hypertension. FAMILY HISTORY: Noncontributory. SOCIAL HISTORY: Ex-smoker, no alcohol use, no IV drug abuse. ALLERGIES: LIST REVIEWED; CIPROFLOXACIN, HYDRALAZINE, VANCOMYCIN. CURRENT MEDICATIONS: Catapres 0.2 t.i.d., Dilaudid, DuoNeb, Lasix 40 IV daily?, Lopressor 100, Pepcid, Plavix 75, Procardia XL 90, Synthroid, labetalol 300 q. 8 h., and Zofran. REVIEW OF SYSTEMS: All systems are reviewed, pertinent positives are mentioned in history of presenting illness, rest unremarkable. PHYSICAL EXAMINATION: GENERAL: Middle-aged lady lying in bed in moderate distress. VITAL SIGNS: Blood pressure 165/70, heart rate 68, respiratory rate 20, temperature 98. HEENT: Normocephalic, atraumatic, positive pallor. NECK: Supple, no JVD. LUNGS: Bilateral equal entry, bilateral rhonchi, expiratory wheeze, prolonged inspiration. CARDIAC: S1 and S2. No murmur, no rub. ABDOMEN: Soft, nondistended, positive tenderness in the lower abdomen, bowel sounds present. EXTREMITIES: No lower extremity edema, dressing of the both lower legs. LABORATORY DATA: WBC 7.5, hemoglobin 10.7, hematocrit 36, platelets 277. Sodium 137, potassium 5.5, chloride 95, CO2 of 25, BUN 77, creatinine 5.8, glucose 90, calcium 9.6, AST 34, ALT 29, albumin 3.8. ASSESSMENT: 1. Hyperkalemia, predialysis . 2. Chronic obstructive pulmonary disease exacerbation. 3. Recent upper respiratory infection/bronchitis. 4. Severe hypertension. 5. Peripheral vascular disease. 6. End-stage renal disease. 7. Nausea, vomiting, diarrhea. PLAN: 1. Stable dialysis as of yesterday. 2. Continue current antihypertensive regimen. 3. GI followup. 4. Continue PPI. 5. Continue anticoagulation. Tamanna Smith MD
--- NOTE | 2017-09-19 01:42 | CON ---
DATE: 09/18/2017 PULMONARY CONSULTATION REFERRING PHYSICIAN: Jose Richards MD REASON FOR CONSULTATION Cough, shortness of breath, may have sleep apnea syndrome. HISTORY OF PRESENT ILLNESS: This is a 57-year-old female known to me from previous admission, just get discharged home, was not feeling well, short of breath, generalized aches and pains. Has cough, shortness of breath. Past medical history is significant for hypertension, heart failure, chronic lung disease, renal failure, dialysis dependent. Has cough, not much sputum. No nausea, no vomiting. No diarrhea. Sleep apnea syndrome is suspected, but claustrophobic, could not use CPAP. PAST MEDICAL HISTORY: As per history of present illness. ALLERGIES: CIPRO, HYDRALAZINE AND VANCOMYCIN. SOCIAL HISTORY: Stopped smoking few years ago. Denies any alcohol use. FAMILY HISTORY: No significant cardiopulmonary disease reported. MEDICATIONS: She is on clonidine 0.2 mg three times a day, Dilaudid 1 mg q. 4 hour p.r.n., DuoNeb q. 8 hours, Lasix 40 mg daily, metoprolol tartrate 100 mg daily, Pepcid 20 mg daily, Plavix 75 mg daily, Procardia XL 90 mg daily, Synthroid 75 mcg a.c.b., labetalol 3 mg q. 8 hours, Zofran p.r.n. basis. REVIEW OF SYSTEMS: No headache, no rhinitis. Has a cough, shortness of breath, wheezing. No nausea, no vomiting. No diarrhea. Right leg pain. PHYSICAL EXAMINATION GENERAL: Lying in the bed with cough and shortness of breath. VITAL SIGNS: Temperature is 98, heart rate 68, respiratory is 20, blood pressure 165/76, pulse ox 97% on nasal cannula. HEENT: Moist mucous membranes. Small oral cavity. Crowded airway. NECK: Supple, has prominent veins. LUNGS: Has a expiratory wheezing, rhonchi. HEART: S1 and S2. ABDOMEN: Soft, nontender, no organomegaly. EXTREMITIES: No edema of the left leg, right leg nonhealing ulcers. NEUROLOGIC: Awake and follows simple commands. LABORATORY DATA: Shows hemoglobin 10.7, hematocrit 35.9, WBC 7.5, platelet is 277. Sodium 137, potassium 4.5, chloride 95, bicarbonate 25, BUN 77, creatinine 5.8, AST 34, ALT 29, alk phos is 96. IMPRESSION: Cardiomyopathy with diastolic dysfunction, pulmonary infiltrate, renal failure, dialysis dependent, coronary artery disease, chronic obstructive lung disease, peripheral vascular disease. The right leg nonhealing ulcer. Agree with present treatment. Continue inhaled bronchodilator. We will add Solu-Medrol 20 mg q. 8 hours, Singulair 10 mg daily, sleep apnea precaution. Keep head at 45 degrees. Cardiology and Nephrology followup. Thank you and we will follow with you. Pj Lazaro MD
[2017-09-19] MEDS: HYDROmorphone 0.5 mg/0.5 ml ISec IVP PRN ×4 (03:30→22:44)
[2017-09-19 06:35] LABS: RBC 3.62 10^6/uL (3.5-6.1); WHITE BLOOD COUNT 4.4 10^3/ul (4.5-11.0)
[2017-09-19 06:36] LABS: BASO % 0.7 % (0.0-3.0); EOS % 0.2 % (1.5-5.0); GRAN % 85.8 % (50.0-68.0); HEMOGLOBIN 10.4 g/dL (12.0-16.0); MEAN CELL VOLUME 93.9 fl (80.0-105.0); MEAN CORPUSCULAR HEMOGLOBIN 28.7 pg (25.0-35.0); MEAN CORPUSCULAR HGB CONC 30.6 g/dl (31.0-37.0); MONO % 2.3 % (1.0-6.0); RED CELL DISTRIBUTION WIDTH 17.1 % (11.5-14.5)
[2017-09-19 06:38] LABS: BASO # 0.03 K/mm3 (0.0-2.0); GRAN # 3.73 (1.4-6.5); LYMPH # 0.5 (1.2-3.4); MONO # 0.1 (0.1-0.6)
[2017-09-19] MEDS ORDERED: Doxercalciferol 4 mcg/2 ml Inj IVP ONE (06:38)
[2017-09-19 06:51] LABS: ALB/GLOB RATIO 1.6 (1.1-1.8); ALBUMIN 3.3 g/dL (3.0-4.8); CALCIUM 9.4 mg/dL (8.4-10.5); MAGNESIUM 1.8 mg/dL (1.7-2.2)
[2017-09-19] MEDS: Albuterol-Ipratrop 3 mg / 0.5 (3 ml) UD IH SCH ×4 (08:24→19:33)
--- NOTE | 2017-09-19 08:56 | PN ---
DATE: SUBJECTIVE: The patient is currently seen on dialysis. She has no complaints this morning. No shortness of breath. No nausea, vomiting, or diarrhea. We are ultrafiltrating 3000 mL of fluid. Her blood pressure is stable. The patient is asking me if she can go home. MEDICATIONS: Medication list reviewed. The patient is on clonidine, Dilaudid, doxycycline, DuoNeb, Lopressor, Pepcid, Plavix, Procardia, Singulair, Solu-Medrol, Synthroid, Trandate, and Zofran. OBJECTIVE: INTAKE/OUTPUT: Intake 120, output not charted. VITAL SIGNS: Blood pressure currently on dialysis 136/56 with a heart rate of 65. HEENT: Pulse 67, temperature 98.8, respiratory rate 20 with a pulse ox of 99%. HEENT exam shows her be normocephalic, atraumatic. Conjunctivae are pale. Sclerae nonicteric. NECK: Supple. No neck vein distention. CHEST: No rales. No rhonchi or wheezing. CARDIOVASCULAR: S1, S2 normal. Soft systolic murmur, left lower sternal border. No S3. No S4. No rub. ABDOMEN: Soft. Bowel sounds normal. Nondistended. No masses. No rebound or guarding. EXTREMITIES: Show no lower extremity edema. She has a dressing over her right lower leg in the area of her lower leg ulcer. She has a right chest wall PermCath. She has no lower extremity cyanosis, clubbing, or edema. LABORATORY DATA AND IMAGING: CBC, white blood cell count today 4.4, hemoglobin 10.4 with a platelet count of 207,000. Chemistry showed normal electrolytes. Potassium was 5.5 previously, it is 5.0 today. BUN 58 with a creatinine of 4.8. Calcium 9.4, phosphorus elevated at 7.9, magnesium 1.8. The patient apparently is not receiving her binders. ASSESSMENT: 1. Status post episode of shortness of breath associated with nausea, vomiting, and diarrhea. These have all seemed to have passed. The patient appears to be back to baseline. She is receiving her routine dialysis treatment today. No evidence for pneumonia. Recent hospitalization for acute bronchitis with chronic obstructive pulmonary disease exacerbation. 2. End-stage renal disease. Continue three times a week dialysis. 3. History of labile hypertension, on dialysis. Blood pressure is well-controlled this morning. 4. History of peripheral vascular disease with poor healing ulcer of her right lower leg. The patient states she might require surgical procedure for this if it has not healed. 5. History of anemia secondary to chronic kidney disease. The patient will continue Aranesp per protocol. 6. History of secondary hyperparathyroidism. The patient will continue renal diet, and I will resume binder therapy. PLAN: 1. Start the patient on Renagel 800 mg three times a day. 2. Continue present blood pressure medication. 3. Need to discuss with patient and her family possible options as the patient appears to go home for a 24-to 48-hour period of time and returns to the hospital with similar complaints. Sampson Hutchins MD
[2017-09-19] MEDS: NIFEdipine 90 mg ER Tab PO SCH (10:24)
[2017-09-19] MEDS: MethylPREDNISolone 40 mg Vial IVP SCH ×2 (10:24→22:24)
[2017-09-19] MEDS: Levothyroxine 75 MCG TAB PO SCH (10:30)
--- NOTE | 2017-09-19 12:37 | CP.PCM.PN ---
<Addison Torres - Last Filed: 09/19/17 12:34> Subjective - Date & Time of Evaluation Date of Evaluation: 09/19/17 Time of Evaluation: 12:35 - Subjective Subjective: Podiatry Progress Note- Dr. Forte 57 year old female with PMHx end-stage renal disease on dialysis, hypertension, CHF, peptic ulcer disease, chronic anemia seen at bedside 5 days s/p right leg ulcer debridement with application of Purapply graft. Patient is AAO x 3 and NAD , sitting comfortably in bed. Patient denies any acute overnight events and states that her pain is well controlled. Denies any further pedal complaints. Denies N/V/F/C/CP/SOB/D/posterior calf pain Objective - Vital Signs/Intake and Output Vital Signs (last 24 hours): Temp Pulse Resp BP Pulse Ox 98.6 F 63 20 182/73 H 96 09/19/17 08:42 09/19/17 10:24 09/19/17 08:42 09/19/17 10:25 09/19/17 08:42 Intake and Output: 09/19/17 09/19/17 06:59 18:59 Intake Total 120 0 Output Total 1 Balance 119 0 - Medications Medications: Current Medications Albuterol/Ipratropium (Duoneb 3 Mg/0.5 Mg (3 Ml) Ud) 3 ml IH TIDRESP [facility] Last Admin: 09/19/17 11:16 Dose: 3 ml Clonidine HCl (Catapres) 0.2 mg PO TID [facility] Last Admin: 09/19/17 10:24 Dose: 0.2 mg Clopidogrel Bisulfate (Plavix) 75 mg PO DAILY [facility] Last Admin: 09/19/17 10:30 Dose: 75 mg Doxycycline Hyclate (Doryx) 100 mg PO Q12 [facility] PRN Reason: Protocol Last Admin: 09/19/17 10:23 Dose: 100 mg Famotidine (Pepcid) 20 mg IVP DAILY [facility] Last Admin: 09/19/17 10:25 Dose: 20 mg Furosemide (Lasix) 40 mg IVP DAILY [facility] Last Admin: 09/19/17 10:25 Dose: 40 mg Hydromorphone HCl (Dilaudid) 1 mg IVP Q4H PRN PRN Reason: pain severe Last Admin: 09/19/17 10:30 Dose: 1 mg Labetalol HCl (Trandate) 300 mg PO Q8 [facility] Last Admin: 09/19/17 06:55 Dose: Not Given Levothyroxine Sodium (Synthroid) 75 mcg PO ACB [facility] Last Admin: 09/19/17 10:30 Dose: 75 mcg Methylprednisolone (Solu-Medrol) 40 mg IVP Q12 [facility] Last Admin: 09/19/17 10:24 Dose: 40 mg Metoprolol Tartrate (Lopressor) 100 mg PO BRK [facility] Last Admin: 09/19/17 09:00 Dose: Not Given Montelukast Sodium (Singulair) 10 mg PO HS [facility] Last Admin: 09/18/17 22:40 Dose: 10 mg Nifedipine (Procardia Xl) 90 mg PO DAILY [facility] Last Admin: 09/19/17 10:24 Dose: 90 mg Ondansetron HCl (Zofran Inj) 4 mg IVP Q4H PRN PRN Reason: Nausea/Vomiting Last Admin: 09/18/17 23:23 Dose: 4 mg Sevelamer HCl (Renagel) 800 mg PO WM [facility] Last Admin: 09/19/17 12:18 Dose: 800 mg - Labs Labs: 09/19/17 06:15 09/19/17 06:15 - Constitutional Appears: Well, Non-toxic, No Acute Distress - Extremities Exam Additional comments: Dressings to RLE are C/D/I Dressings were left on due to graft application Vasc: DP/PT pulses palpable 2/4 b/l. Skin temperature warm to warm from proximal to distal. CFT < 3 seconds to all digits b/l. No edema noted b/l Neuro: Epicritic and protective sensation grossly intact b/l - Neurological Exam Neurological Exam: Alert, Awake, Oriented x3 - Psychiatric Exam Psychiatric exam: Normal Affect, Normal Mood Assessment and Plan - Assessment and Plan (Free Text) Assessment: 57 year old female seen at bedside four days s/p right leg ulcer debridement ( DOS 09/14/17) with application of Purapply graft Plan: Patient seen and evaluated at bedside Afebrile, Absent leukocytosis Patient's dressings left intact due to graft application Dressing will be changed on Thursday if patient is still inhouse Podiatry will continue to follow while patient in house <Dougie Forte - Last Filed: 09/22/17 12:07> Objective - Vital Signs/Intake and Output Vital Signs (last 24 hours): Temp Pulse Resp BP Pulse Ox 98.1 F 87 18 207/75 H 99 09/22/17 06:00 09/22/17 10:23 09/22/17 06:00 09/22/17 10:23 09/22/17 06:00 Intake and Output: 09/22/17 09/22/17 06:59 18:59 Intake Total 0 Balance 0 - Medications Medications: Current Medications Albuterol/Ipratropium (Duoneb 3 Mg/0.5 Mg (3 Ml) Ud) 3 ml IH TIDRESP [facility] Last Admin: 09/22/17 08:37 Dose: Not Given Clonidine HCl (Catapres) 0.3 mg PO Q8H [facility] Last Admin: 09/22/17 10:23 Dose: 0.3 mg Clopidogrel Bisulfate (Plavix) 75 mg PO DAILY [facility] Last Admin: 09/22/17 10:10 Dose: 75 mg Doxycycline Hyclate (Doryx) 100 mg PO Q12 [facility] PRN Reason: Protocol Last Admin: 09/22/17 10:10 Dose: 100 mg Famotidine (Pepcid) 20 mg PO DAILY [facility] Last Admin: 09/22/17 10:10 Dose: 20 mg Labetalol HCl (Trandate) 300 mg PO Q8 [facility] Last Admin: 09/22/17 06:41 Dose: Not Given Levothyroxine Sodium (Synthroid) 75 mcg PO ACB [facility] Last Admin: 09/22/17 10:10 Dose: 75 mcg Methylprednisolone (Solu-Medrol) 30 mg IVP Q12 [facility] Last Admin: 09/22/17 10:09 Dose: 30 mg Metoprolol Tartrate (Lopressor) 100 mg PO BRK [facility] Last Admin: 09/22/17 10:10 Dose: 100 mg Montelukast Sodium (Singulair) 10 mg PO HS [facility] Last Admin: 09/21/17 22:40 Dose: 10 mg Nifedipine (Procardia Xl) 90 mg PO DAILY [facility] Last Admin: 09/22/17 10:09 Dose: 90 mg Ondansetron HCl (Zofran Inj) 4 mg IVP Q4H PRN PRN Reason: Nausea/Vomiting Last Admin: 09/21/17 19:57 Dose: 4 mg Sevelamer HCl (Renagel) 800 mg PO WM [facility] Last Admin: 09/22/17 10:09 Dose: 800 mg - Labs Labs: 09/22/17 06:00 09/22/17 06:00 Attending/Attestation - Attestation I have personally seen and examined this patient.: Yes I have fully participated in the care of the patient.: Yes I have reviewed all pertinent clinical information, including history, physical exam and plan: Yes
--- NOTE | 2017-09-19 22:24 | PN ---
PULMONARY PROGRESS NOTE DATE: 09/19/2017 REFERRING PHYSICIAN: Jose Richards MD SUBJECTIVE: The patient is sitting up in a bed. Family is at bedside, feels a little better, still have a cough. No nausea or vomiting. No diarrhea. No leg pain or leg swelling. Has a nonhealing ulcer in the right leg. PHYSICAL EXAMINATION GENERAL: No acute distress. VITAL SIGNS: Temperature is 98, heart rate is 63, respiratory rate is 20, blood pressure is 182/73 and pulse oximetry is 96% on nasal cannula. HEENT: Moist mucous membranes. Crowded airway. Mallampati score is IV. NECK: Supple. No JVD. LUNGS: Has prolonged expiratory phase with few wheezing. HEART: S1 and S2. ABDOMEN: Soft and nontender. No organomegaly. EXTREMITIES: There is no edema. Right leg has nonhealing ulcer. NEUROLOGIC: Awake, alert and follows simple commands. MEDICATIONS: She is on clonidine 0.2 mg three times a day, Dilaudid 1 mg q.4 hour p.r.n., doxycycline 100 mg twice a day, DuoNeb q.8 hours, Lasix 40 mg IV daily, metoprolol tartrate 100 mg daily, Pepcid 20 mg daily, Plavix 75 mg daily, Procardia XL 90 mg daily, Renagel 800 mg with meals, Singulair 10 mg at bedtime, Solu-Medrol 40 mg twice a day, Synthroid 75 mcg a.c.b., labetalol 300 mg q.8 hours and Zofran p.r.n. basis. LABORATORY DATA: Shows hemoglobin 10.4, hematocrit 34.0, WBC 4.4 and platelet is 207. Sodium 134, potassium 5.0, chloride 94, bicarbonate is 26, BUN 58, creatinine 4.8, glucose is 110, calcium is 9.4 and phosphorus 7.9. AST 26, ALT 34, alk phos is 75 and albumin is 3.3. IMPRESSION AND PLAN: Cardiomyopathy with diastolic dysfunction, pulmonary infiltrate, renal failure dialysis dependent, coronary artery disease, chronic obstructive lung disease, peripheral vascular disease, right leg nonhealing ulcer. Pulmonary point of view, she is doing okay. She is on 2 beta-blockers? we will change into one, may increase Toprol XL and discontinue labetalol. Also add diuretics, as she does not make urine and get fluid overloaded. Continue steroids and inhaled bronchodilators. Thank you and we will follow with you. Pj Lazaro MD
[2017-09-20] MEDS ORDERED: Nitroglycerin 2% Ointment Foilpak UD TOP ONE (02:27)
--- NOTE | 2017-09-20 02:36 | CP.PCM.PN ---
Subjective - Date & Time of Evaluation Date of Evaluation: 09/20/17 Time of Evaluation: 02:33 - Subjective Subjective: S:Nurse calls and tells that BP is 238/72. Has mild headache, tiredness. No other complaints. Medical record was reviewed. O: Last Vital Signs 3 Temp 98.8 F 09/19/17 16:00 Pulse 61 09/20/17 01:00 Resp 18 09/19/17 16:00 BP 222/92 H 09/20/17 01:00 Pulse Ox 99 09/19/17 16:00 LUNGS: Normal breathing pattern. A: Elevated blood pressure reading. P:NTP 2" to chest wall. Monitor BP. Objective - Vital Signs/Intake and Output Vital Signs (last 24 hours): Temp Pulse Resp BP Pulse Ox 98.8 F 61 18 222/92 H 99 09/19/17 16:00 09/20/17 01:00 09/19/17 16:00 09/20/17 01:00 09/19/17 16:00 Intake and Output: 09/19/17 09/20/17 18:59 06:59 Intake Total 975 Balance 975 - Medications Medications: Current Medications Albuterol/Ipratropium (Duoneb 3 Mg/0.5 Mg (3 Ml) Ud) 3 ml IH TIDRESP [facility] Last Admin: 09/19/17 19:33 Dose: 3 ml Clonidine HCl (Catapres) 0.3 mg PO Q8H [facility] Last Admin: 09/20/17 01:00 Dose: 0.3 mg Clopidogrel Bisulfate (Plavix) 75 mg PO DAILY [facility] Last Admin: 09/19/17 10:30 Dose: 75 mg Doxycycline Hyclate (Doryx) 100 mg PO Q12 [facility] PRN Reason: Protocol Last Admin: 09/19/17 22:28 Dose: 100 mg Famotidine (Pepcid) 20 mg IVP DAILY [facility] Last Admin: 09/19/17 10:25 Dose: 20 mg Furosemide (Lasix) 40 mg PO BID [facility] Last Admin: 09/19/17 17:56 Dose: 40 mg Hydromorphone HCl (Dilaudid) 1 mg IVP Q4H PRN PRN Reason: pain severe Last Admin: 09/19/17 22:44 Dose: 1 mg Labetalol HCl (Trandate) 300 mg PO Q8 [facility] Last Admin: 09/19/17 22:25 Dose: 300 mg Levothyroxine Sodium (Synthroid) 75 mcg PO ACB [facility] Last Admin: 09/19/17 10:30 Dose: 75 mcg Methylprednisolone (Solu-Medrol) 40 mg IVP Q12 [facility] Last Admin: 09/19/17 22:24 Dose: 40 mg Metoprolol Tartrate (Lopressor) 100 mg PO BRK [facility] Last Admin: 09/19/17 09:00 Dose: Not Given Montelukast Sodium (Singulair) 10 mg PO HS [facility] Last Admin: 09/19/17 22:25 Dose: 10 mg Nifedipine (Procardia Xl) 90 mg PO DAILY [facility] Last Admin: 09/19/17 10:24 Dose: 90 mg Ondansetron HCl (Zofran Inj) 4 mg IVP Q4H PRN PRN Reason: Nausea/Vomiting Last Admin: 09/18/17 23:23 Dose: 4 mg Sevelamer HCl (Renagel) 800 mg PO WM [facility] Last Admin: 09/19/17 17:31 Dose: 800 mg - Labs Labs: 09/19/17 06:15 09/19/17 06:15
--- NOTE | 2017-09-20 02:49 | PN ---
DATE: 09/19/2017 HISTORY OF PRESENT ILLNESS: Ms. Thakur is a 57-year-old female admitted to the hospital with shortness of breath. She has underlying CHF and COPD. She also has end-stage renal disease on hemodialysis. She was dialyzed today. She has history of chronic anemia likely related to end-stage renal disease. Blood count also showed leukopenia. She is complaining of diarrhea one to two times. She was recently on doxycycline for community-acquired pneumonia. PAST MEDICAL HISTORY: Coronary artery disease, CHF, hypertension, COPD, end-stage renal disease, peptic ulcer disease, hypothyroidism, chronic anemia, history of fall and chronic ischemic leg ulcers. PAST SURGICAL HISTORY: Debridement of the foot ulcers, carotid angioplasty, bilateral arterial bypass surgery, . PERSONAL HISTORY: Former smoker. SOCIAL HISTORY: Lives at home with son. ALLERGIES: CIPROFLOXACIN, HYDRALAZINE, CT SCAN DYE AND VANCOMYCIN. HOME MEDICATIONS: Labetalol, nifedipine, metoprolol and lisinopril. REVIEW OF SYSTEMS: As per HPI. Rest of 12-point review of systems reviewed negative. PHYSICAL EXAMINATION: GENERAL: Comfortable in bed in no acute distress. VITAL SIGNS: Temperature 97.8, heart rate 80 per minute, blood pressure 160/80 and respiratory rate 18 per minute. HEENT: Pallor positive. NECK: No lymphadenopathy. CHEST: Air entry present and equal bilaterally. No added sounds. CARDIOVASCULAR: S1 and S2 normal. No murmur or gallop. ABDOMEN: Soft and nontender. No hepatosplenomegaly. EXTREMITIES: No edema. SKIN: No petechiae. No rash. LABORATORY DATA: White count 7.5, hemoglobin 10.7, hematocrit 35.9 and platelet 277. Sodium 137, potassium 5.5, BUN 77 and potassium 5.8. ASSESSMENT: 1. Congestive heart failure exacerbation. 2. End-stage renal disease on hemodialysis. 3. Chronic obstructive pulmonary disease. 4. Anemia. 5. Leukopenia. PLAN: She was hemodialyzed today. She will continue on her regular hemodialysis. COPD, CHF, shortness of breath has improved with the current medications. Dr. Lazaro, from Pulmonary following. She has diarrhea one time, we will send the stool for C. Diff.. Continue aspirin 75 mg daily. Currently on doxycycline 100 mg p.o. q. 12. Pain control with Dilaudid. Continue beta-mino and Renagel. Zofran p.r.n. for nausea. Jaymie Byrd MD
[2017-09-20] MEDS ORDERED: EnalaprilAT 1.25 mg/ml Inj IVP STA (03:07)
[2017-09-20] MEDS: Albuterol-Ipratrop 3 mg / 0.5 (3 ml) UD IH SCH ×3 (08:01→20:38)
[2017-09-20] MEDS: Levothyroxine 75 MCG TAB PO SCH (08:44)
[2017-09-20] MEDS: NIFEdipine 90 mg ER Tab PO SCH (10:42)
[2017-09-20] MEDS: MethylPREDNISolone 40 mg Vial IVP SCH ×2 (10:43→22:00)
--- NOTE | 2017-09-20 10:58 | PN ---
DATE: 09/20/2017 SUBJECTIVE: The patient is currently seen on 3R. She is lying supine in bed. She has no respiratory distress this morning. She has had high blood pressure readings throughout the night, receiving IV Vasotec along with multiple oral blood pressure medications. She tolerated yesterday's dialysis well without difficulty. MEDICATIONS: Medication list reviewed. The patient is currently on clonidine, Dilaudid, doxycycline, DuoNeb, p.o. Lasix, Lopressor, Pepcid, Plavix, Procardia, Renagel, Singulair, Solu-Medrol, Synthroid, Trandate, and Zofran p.r.n. OBJECTIVE: INTAKE/OUTPUT: Intake charted as 975, output hemodialysis. VITAL SIGNS: Last blood pressure was high at 236/75. Pressures of being taken manually as the automatic cuff is not registering. Heart rate 56. Respiratory rate 18. Pulse ox 94%. HEENT: Normocephalic, atraumatic. Conjunctivae remain pale. Sclerae are nonicteric. NECK: Supple. No neck vein distention. CHEST: No rales, no rhonchi or wheezing. CARDIOVASCULAR: S1, S2 normal. Soft systolic murmur left lower sternal border. No S3, no S4. No rub. ABDOMEN: Soft. Bowel sounds normal. Nondistended. No masses. No rebound or guarding. EXTREMITIES: No lower extremity edema. SKIN: She has a dressing over her right lower leg in the area of her lower leg ulcer. She has a right chest wall PermCath. LABORATORY DATA AND IMAGING: No labs done today. Yesterday's CBC, white blood cell count 4.4, hemoglobin 10.4, platelet count of 207,000. Chemistries showed normal electrolytes yesterday, BUN 58 with creatinine of 4.8. Calcium was 9.4. Phosphorus level was elevated at 7.9. The patient is back on binder therapy and a renal diet. Microbiology, no cultures were sent. ASSESSMENT: 1. Status post episode of shortness of breath, nausea, vomiting and diarrhea. These have all passed. The patient had a recent hospitalization for acute bronchitis and a chronic obstructive pulmonary disease exacerbation. She continues on inhalation therapy and continues on oral antibiotic therapy. 2. History of end-stage renal disease. The patient will continue vbisc-nvyee-m-week dialysis. 3. History of very difficult to control hypertension. The patient cannot receive angiotensin converting enzyme inhibitors, angiotensin receptor blockers because of history of life-threatening hyperkalemia. She remains on maximum doses of current medications. We can attempt to try and increase ultrafiltration with dialysis to help improve her blood pressure control. Perhaps leaving her with mild intravascular volume depletion will assist in lowering her blood pressure. 4. History of peripheral vascular disease with poor healing ulcer of her right lower leg. The patient states that she might need surgical procedure for this and she is concerned that she might lose her leg. 5. History of anemia secondary to chronic kidney disease. The patient will continue Aranesp per protocol along with iron supplements. 6. History of secondary hyperparathyroidism. The patient will continue binder therapy and she will continue a renal diet. PLAN: 1. Discussed with the patient and the staff on 3R, the concerns about elevated blood pressure readings. She has had this pattern for years. She appears to be tolerating it pretty well though the blood pressures are entirely not safe as she has systolics well over 200. My role as a kindergartners helper will be to try and decrease her dry weight perhaps by half a kilo every week to see if we could lower her blood pressure further. 2. Continue present blood pressure medication. There is no room for adding any other medication. SHE HAS HAD SENSITIVITIES TO HYDRALAZINE IN THE PAST. 3. Continue binder therapy and renal diet. 4. Follow up with Podiatry and Vascular Surgery for her poor healing ulcer of her right lower leg. Sampson Hutchins MD
[2017-09-20] MEDS: HYDROmorphone 0.5 mg/0.5 ml ISec IVP PRN ×3 (14:55→22:56)
--- NOTE | 2017-09-20 22:39 | PN ---
DATE: 09/20/2017 SUBJECTIVE: She is still short of breath and mild respiratory distress. Blood pressure has been elevated, more than 200 systolic. She has received nitropaste in the night. Denies any chest pain. She is not ambulating. Oral intake is poor. REVIEW OF SYSTEMS: As per HPI. Rest of 12-point review of systems reviewed and negative. PHYSICAL EXAMINATION: GENERAL: Comfortable in bed in no acute distress. VITAL SIGNS: Temperature 97.8, heart rate is 100 per minute, respiratory rate 20 per minute, blood pressure 172/70, previous one 236/75. HEENT: Pallor positive. NECK: No lymphadenopathy. CHEST: Air entry present and equal bilaterally. No added sounds. CARDIOVASCULAR: S1 and S2, normal. No murmur, no gallop. ABDOMEN: Soft, nontender. No hepatosplenomegaly. EXTREMITIES: No edema. SKIN: No petechiae, no rash. CERTIFIED LOW VISION THERAPIST: Alert and oriented x3. No focal sensory or motor deficit. LABORATORY DATA: White count 4.5, hemoglobin 10.4, hematocrit 34, platelet 207. Sodium 135, potassium 5, creatinine 4.8. ASSESSMENT: 1. Congestive heart failure. 2. Chronic obstructive pulmonary disease exacerbation. 3. End-stage renal disease, on hemodialysis. 4. Anemia. 5. Leukopenia. 6. Uncontrolled hypertension. PLAN: She is on hemodialysis, and she will be dialyzed tomorrow. Blood pressure not controlled with current medications, nitropaste p.r.n. We will continue Catapres and continue metoprolol 100 mg, Procardia 90 mg. We will continue Renagel, methylprednisolone 40 mg q.12 hours, doxycycline 100 mg q.12 hours. Being followed by Dr. Radford. Jaymie Byrd MD [facility]
--- NOTE | 2017-09-20 23:07 | PN ---
PULMONARY PROGRESS NOTE DATE: 09/20/2017 REFERRING PHYSICIAN: Jose Richards MD SUBJECTIVE: The patient is lying in the bed, sleepy, arousable. Night was unremarkable. Did not use CPAP. No nausea, no vomiting, no diarrhea. Has a right leg discomfort. OBJECTIVE: GENERAL: No acute distress. VITAL SIGNS: Temperature is 98, heart rate is 67, respiratory rate is 20, blood pressure is 172/70 and pulse oximetry is 94% on nasal cannula. HEENT: Small airway cavity. Crowded airway. NECK: Supple. No JVD. LUNGS: Has a few crackles at the bases. HEART: S1 and S2. ABDOMEN: Soft and nontender. No organomegaly. EXTREMITIES: There is no edema. NEUROLOGIC: Awake, alert and follows simple commands. MEDICATIONS: She is on 0.3 mg q. 8 hours, Dilaudid 1 mg q.4 hour p.r.n., doxycycline 100 mg twice a day, DuoNeb q. 6 hours, metoprolol tartrate 100 mg daily, Pepcid 20 mg daily, Plavix 75 mg daily, Procardia XL 90 mg daily, Renagel 800 mg with meals, Singulair 10 mg daily, Solu-Medrol 40 mg q. 12 hours, Synthroid 75 mcg a.c.b., labetalol 300 mg q. 8 hours and Zofran q. 4 hours p.r.n. LABORATORY DATA: Reviewed, no new lab is available. IMPRESSION AND PLAN: Cardiomyopathy with cardiac diastolic dysfunction, pulmonary infiltrate, renal failure dialysis dependent, coronary artery disease, chronic obstructive lung disease, peripheral vascular disease, right leg nonhealing ulcer. Pulmonary point of view, she is much more stable today. Nephrology discontinued the diuretics. The patient gets fluid overloaded. We will leave the decision for Nephrology. Pulmonary point of view, she is doing okay. Encourage continuous positive airway pressure use. Thank you and we will follow with you. Pj Lazaro MD
[2017-09-21] MEDS: Albuterol-Ipratrop 3 mg / 0.5 (3 ml) UD IH SCH ×3 (07:38→20:27)
[2017-09-21] MEDS: Levothyroxine 75 MCG TAB PO SCH (08:19)
[2017-09-21] MEDS: MethylPREDNISolone 40 mg Vial IVP SCH ×2 (09:06→22:38)
[2017-09-21] MEDS: NIFEdipine 90 mg ER Tab PO SCH (09:08)
[2017-09-21] MEDS: HYDROmorphone 0.5 mg/0.5 ml ISec IVP PRN ×4 (09:15→23:49)
--- NOTE | 2017-09-21 09:59 | PN ---
DATE: 09/20/2017 This visit is for Dr. Bermudez, Dr. Mendez is covering. SUBJECTIVE: The patient is lying in bed. She has not had any further diarrhea. She denies any abdominal pain. PHYSICAL EXAMINATION: VITAL SIGNS: Reveal temperature of 97.9, blood pressure 236/75, heart rate of 56. HEENT: Reveal sclerae to be white. Conjunctivae pink. NECK: Supple. CHEST: Reveal lungs to be clear. HEART: Reveals a regular rate and rhythm. ABDOMEN: Soft and nontender. EXTREMITIES: Show no edema. LABORATORY DATA: Reveal from 09/19/2017, white blood cell count 4.4, hemoglobin 10.4, platelet count 207,000. Chemistries reveal BUN 58, creatinine 4.8. IMPRESSION: 1. Exacerbation of chronic obstructive pulmonary disease. 2. Diarrhea which has resolved. 3. History of irritable bowel syndrome with constipation. 4. End-stage renal disease, on hemodialysis. 5. Chronic anemia. RECOMMENDATIONS: Continue current care. No further GI workup is planned at this time. Raymond Mendez MD
--- NOTE | 2017-09-21 16:10 | CP.PCM.PN ---
Subjective - Date & Time of Evaluation Date of Evaluation: 09/21/17 Time of Evaluation: 10:05 - Subjective Subjective: Seen and examined at the bedside earlier today, chart reviewed. Patient denies any further episodes of diarrhea, only on Thursday. No further episodes of nausea , vomiting, or abdominal pain. She does report chronic reflux symptoms. Tolerating oral intake with no difficulty. No new complaints. Denies any overt GI bleed. Objective - Vital Signs/Intake and Output Vital Signs (last 24 hours): Temp Pulse Resp BP Pulse Ox 97.9 F 62 18 145/71 100 09/21/17 07:45 09/21/17 07:45 09/21/17 07:45 09/21/17 07:45 09/21/17 07:45 - Medications Medications: Current Medications Albuterol/Ipratropium (Duoneb 3 Mg/0.5 Mg (3 Ml) Ud) 3 ml IH TIDRESP [facility] Last Admin: 09/21/17 14:02 Dose: 3 ml Clonidine HCl (Catapres) 0.3 mg PO Q8H [facility] Last Admin: 09/21/17 09:23 Dose: 0.3 mg Clopidogrel Bisulfate (Plavix) 75 mg PO DAILY [facility] Last Admin: 09/21/17 09:05 Dose: 75 mg Doxycycline Hyclate (Doryx) 100 mg PO Q12 [facility] PRN Reason: Protocol Last Admin: 09/21/17 09:05 Dose: 100 mg Famotidine (Pepcid) 20 mg PO DAILY [facility] Hydromorphone HCl (Dilaudid) 1 mg IVP Q4H PRN PRN Reason: pain severe Last Admin: 09/21/17 15:22 Dose: 1 mg Labetalol HCl (Trandate) 300 mg PO Q8 [facility] Last Admin: 09/21/17 13:06 Dose: 300 mg Levothyroxine Sodium (Synthroid) 75 mcg PO ACB [facility] Last Admin: 09/21/17 08:19 Dose: 75 mcg Methylprednisolone (Solu-Medrol) 40 mg IVP Q12 [facility] Last Admin: 09/21/17 09:06 Dose: 40 mg Metoprolol Tartrate (Lopressor) 100 mg PO BRK [facility] Last Admin: 09/21/17 08:19 Dose: 100 mg Montelukast Sodium (Singulair) 10 mg PO HS [facility] Last Admin: 09/20/17 22:00 Dose: 10 mg Nifedipine (Procardia Xl) 90 mg PO DAILY [facility] Last Admin: 09/21/17 09:08 Dose: 90 mg Ondansetron HCl (Zofran Inj) 4 mg IVP Q4H PRN PRN Reason: Nausea/Vomiting Last Admin: 09/21/17 11:36 Dose: 4 mg Sevelamer HCl (Renagel) 800 mg PO WM [facility] Last Admin: 09/21/17 13:05 Dose: 800 mg - Labs Labs: 09/19/17 06:15 09/19/17 06:15 - Constitutional Appears: No Acute Distress - Eye Exam Eye Exam: Normal appearance. absent: Scleral icterus - ENT Exam ENT Exam: Mucous Membranes Moist - Neck Exam Neck Exam: Normal Inspection - Respiratory Exam Respiratory Exam: NORMAL BREATHING PATTERN. absent: Respiratory Distress - Cardiovascular Exam Cardiovascular Exam: +S1, +S2 - GI/Abdominal Exam GI & Abdominal Exam: Soft, Normal Bowel Sounds. absent: Guarding, Tenderness, Organomegaly, Rebound - Extremities Exam Extremities Exam: absent: Calf Tenderness - Neurological Exam Neurological Exam: Alert, Awake, Oriented x3 - Skin Skin Exam: Dry, Warm Assessment and Plan - Assessment and Plan (Free Text) Assessment: Assessment: Resolved diarrhea, patient denies further episodes,recent history of antibiotic use, Resolved abdominal pain nausea and vomiting Dyspnea, status post recent exacerbation of COPD/P&A CHF Chronic anemia Hypertension COPD End stage renal disease on dialysis CAD status post PCI Gastritis, Reflux disease Plan: continue heart healthy diet continue Pepcid 20 mg Zofran when necessary Monitor electrolytes on Plavix Case discussed with Dr. Mendez who is covering Dr. Bermudez.
--- NOTE | 2017-09-21 16:50 | CP.PCM.PN ---
Subjective - Date & Time of Evaluation Date of Evaluation: 09/21/17 Time of Evaluation: 16:45 - Subjective Subjective: 57 year old female seen one week after application of Purapply skin graft to right leg ulceration. Patient states that the pain to her ulceration site is greatly improved at this time. She states that she has kept her dressing clean, dry and intact for the entirety of the week since surgery. She is AAO x 3 during the examination and denies any further pedal complaints at this time. Denies any recent N/V/F/C/CP/SOB/D/posterior calf pain when squeezed. Objective - Vital Signs/Intake and Output Vital Signs (last 24 hours): Temp Pulse Resp BP Pulse Ox 97.9 F 62 18 145/71 100 09/21/17 07:45 09/21/17 07:45 09/21/17 07:45 09/21/17 07:45 09/21/17 07:45 - Medications Medications: Current Medications Albuterol/Ipratropium (Duoneb 3 Mg/0.5 Mg (3 Ml) Ud) 3 ml IH TIDRESP [facility] Last Admin: 09/21/17 14:02 Dose: 3 ml Clonidine HCl (Catapres) 0.3 mg PO Q8H [facility] Last Admin: 09/21/17 09:23 Dose: 0.3 mg Clopidogrel Bisulfate (Plavix) 75 mg PO DAILY [facility] Last Admin: 09/21/17 09:05 Dose: 75 mg Doxycycline Hyclate (Doryx) 100 mg PO Q12 [facility] PRN Reason: Protocol Last Admin: 09/21/17 09:05 Dose: 100 mg Famotidine (Pepcid) 20 mg PO DAILY [facility] Hydromorphone HCl (Dilaudid) 1 mg IVP Q4H PRN PRN Reason: pain severe Last Admin: 09/21/17 15:22 Dose: 1 mg Labetalol HCl (Trandate) 300 mg PO Q8 [facility] Last Admin: 09/21/17 13:06 Dose: 300 mg Levothyroxine Sodium (Synthroid) 75 mcg PO ACB [facility] Last Admin: 09/21/17 08:19 Dose: 75 mcg Methylprednisolone (Solu-Medrol) 40 mg IVP Q12 [facility] Last Admin: 09/21/17 09:06 Dose: 40 mg Metoprolol Tartrate (Lopressor) 100 mg PO BRK [facility] Last Admin: 09/21/17 08:19 Dose: 100 mg Montelukast Sodium (Singulair) 10 mg PO HS [facility] Last Admin: 09/20/17 22:00 Dose: 10 mg Nifedipine (Procardia Xl) 90 mg PO DAILY [facility] Last Admin: 09/21/17 09:08 Dose: 90 mg Ondansetron HCl (Zofran Inj) 4 mg IVP Q4H PRN PRN Reason: Nausea/Vomiting Last Admin: 09/21/17 11:36 Dose: 4 mg Sevelamer HCl (Renagel) 800 mg PO WM [facility] Last Admin: 09/21/17 13:05 Dose: 800 mg - Labs Labs: 09/19/17 06:15 09/19/17 06:15 - Constitutional Appears: Well, Non-toxic, No Acute Distress - Extremities Exam Additional comments: RLE focused exam: Dressings noted to be C/D/I to right leg Skin graft in proper placement upon removal of dressings Vasc: DP/PT pulses palpable 2/4 b/l. Skin temperature warm to warm from proximal to distal. CFT < 3 seconds to all digits b/l. 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 Base is fibrogranular with more granulation tissue noted than prior to application of skin graft. Evidence of re -epithelialization noted to wound edges. No periwound erythema. No malodor, no purulence, no tunneling, tracking, undermining, probe to bone or fluctuance. Ulceration is noted to have 2 satellite lesions, one proximal and one posterior to large wound; periwound erythema noted. No maceration, xerosis, abnormal pigmentation or abnormal growths noted to b/l LE MSK: Severe POP to right leg ulcerations - improving - Neurological Exam Neurological Exam: Alert, Awake, Oriented x3 - Psychiatric Exam Psychiatric exam: Normal Affect, Normal Mood Assessment and Plan - Assessment and Plan (Free Text) Assessment: 57 year old female seen one week after application of Purapply skin graft to right leg ulceration. Plan: Patient seen and evaluated at bedside with attending Dr. Blanton Afebrile, absent leukocytosis Continue pain management Wound cleansed with saline and dressed with optifoam Collagen to be applied to wound tomorrow Patient will have new graft applied to wound as an outpatient in the wound care center No plan for surgical intervention at this time Podiatry will continue to follow while patient in house
--- NOTE | 2017-09-21 19:01 | PN ---
DATE: 09/21/2017 SUBJECTIVE: The patient is seen sitting in bed. She is awake. She is alert. She reports she is feeling better. She still nauseous. She is still having vomiting episodes. No diarrhea since yesterday. EXAMINATION GENERAL: Middle-aged lady sitting in bed. VITAL SIGNS: Blood pressure 145/71, heart rate 62, respiratory rate 18 and temperature 97.9. HEENT: Normocephalic and atraumatic. NECK: Supple, no JVD. LUNGS: Bilateral equal entry, bilateral rhonchi, prolonged expiration. CARDIAC: S1 and S2, regular rate and rhythm, positive murmur, no rub. ABDOMEN: Soft, nondistended, nontender, bowel sounds present. EXTREMITIES: No lower extremity edema. INTAKE AND OUTPUT: Not charted. LABORATORY DATA: No new labs since the 09/19/2017. CURRENT MEDICATIONS: Catapres 0.3 q. 8, Dilaudid, doxycycline 100 q. 12, DuoNeb, Lopressor 100, Pepcid 20 IV daily, Plavix 75, Procardia XL 90, Renagel 800, Singulair, Solu-Medrol 40 q. 12, Synthroid, Trandate 300 q. 8 and Zofran. ASSESSMENT: 1. Nausea, vomiting, diarrhea, resolving. Irritable bowel syndrome. 2. COPD exacerbation, recent bronchitis. 3. Severe hypertension. 4. End-stage renal disease. 5. Secondary hyperparathyroidism. 6. Anemia of chronic kidney disease. PLAN 1. Continue Zofran, PPI. 2. Continue DuoNeb, respiratory treatments. 3. Dialysis again tomorrow. 4. Severe hypertension, continue current medications. 5. Peripheral vascular disease, continue Plavix Tamanna Smith MD
--- NOTE | 2017-09-21 22:59 | CP.PCM.PN ---
Subjective - Date & Time of Evaluation Date of Evaluation: 09/21/17 Time of Evaluation: 18:00 - Subjective Subjective: DATE: 09/21/2017 SUBJECTIVE: SOB improved. BP improved. ESRD on HD. ambulating with support. REVIEW OF SYSTEMS: As per HPI. Rest of 12-point review of systems reviewed and negative. PHYSICAL EXAMINATION: GENERAL: Comfortable in bed in no acute distress. VITAL SIGNS: reviewed. HEENT: Pallor positive. NECK: No lymphadenopathy. CHEST: Air entry present and equal bilaterally. No added sounds. CARDIOVASCULAR: S1 and S2, normal. No murmur, no gallop. ABDOMEN: Soft, nontender. No hepatosplenomegaly. EXTREMITIES: No edema. SKIN: No petechiae, no rash. SPECIAL PROCEDURE TECH: Alert and oriented x3. No focal sensory or motor deficit. LABORATORY DATA: White count 4.5, hemoglobin 10.4, hematocrit 34, platelet 207. Sodium 135, potassium 5, creatinine 4.8. ASSESSMENT: 1. Congestive heart failure. 2. Chronic obstructive pulmonary disease exacerbation. 3. End-stage renal disease, on hemodialysis. 4. Anemia. 5. Leukopenia. 6. Uncontrolled hypertension. PLAN: She is on hemodialysis, Blood pressure improved current medications, nitropaste p.r.n. We will continue Catapres and continue metoprolol 100 mg, Procardia 90 mg. We will continue Renagel, methylprednisolone 40 mg q.12 hours, doxycycline 100 mg q.12 hours. Being followed by Dr. Radford. Blood counts stable. Discharge planning for tomorrow. Jaymie Byrd MD Objective - Vital Signs/Intake and Output Vital Signs (last 24 hours): Temp Pulse Resp BP Pulse Ox 98.2 F 61 20 165/91 H 95 09/21/17 16:00 09/21/17 16:00 09/21/17 16:00 09/21/17 22:38 09/21/17 16:00 - Medications Medications: Current Medications Albuterol/Ipratropium (Duoneb 3 Mg/0.5 Mg (3 Ml) Ud) 3 ml IH TIDRESP [facility] Last Admin: 09/21/17 20:27 Dose: 3 ml Clonidine HCl (Catapres) 0.3 mg PO Q8H [facility] Last Admin: 09/21/17 17:09 Dose: 0.3 mg Clopidogrel Bisulfate (Plavix) 75 mg PO DAILY [facility] Last Admin: 09/21/17 09:05 Dose: 75 mg Doxycycline Hyclate (Doryx) 100 mg PO Q12 [facility] PRN Reason: Protocol Last Admin: 09/21/17 22:41 Dose: 100 mg Famotidine (Pepcid) 20 mg PO DAILY [facility] Hydromorphone HCl (Dilaudid) 1 mg IVP Q4H PRN PRN Reason: pain severe Last Admin: 09/21/17 19:58 Dose: 1 mg Labetalol HCl (Trandate) 300 mg PO Q8 [facility] Last Admin: 09/21/17 22:38 Dose: 300 mg Levothyroxine Sodium (Synthroid) 75 mcg PO ACB [facility] Last Admin: 09/21/17 08:19 Dose: 75 mcg Methylprednisolone (Solu-Medrol) 30 mg IVP Q12 [facility] Last Admin: 09/21/17 22:38 Dose: 30 mg Metoprolol Tartrate (Lopressor) 100 mg PO BRK [facility] Last Admin: 09/21/17 08:19 Dose: 100 mg Montelukast Sodium (Singulair) 10 mg PO HS [facility] Last Admin: 09/21/17 22:40 Dose: 10 mg Nifedipine (Procardia Xl) 90 mg PO DAILY [facility] Last Admin: 09/21/17 09:08 Dose: 90 mg Ondansetron HCl (Zofran Inj) 4 mg IVP Q4H PRN PRN Reason: Nausea/Vomiting Last Admin: 09/21/17 19:57 Dose: 4 mg Sevelamer HCl (Renagel) 800 mg PO WM [facility] Last Admin: 09/21/17 17:08 Dose: 800 mg - Labs Labs: 09/19/17 06:15 09/19/17 06:15
--- NOTE | 2017-09-21 23:27 | PN ---
ADDENDUM This is an addendum to a progress note on Renetta Thakur performed by RHYS Bender. I personally examined this patient and reviewed her laboratory data. The patient is stable from the GI standpoint. I agree with Britta Wheeler's impression and recommendations. Her diarrhea subsided, and her chronic reflux is stable. She is tolerating solid foods. Raymond Mendez MD
--- NOTE | 2017-09-21 23:46 | PN ---
DATE: 09/21/2017 REFERRING PHYSICIAN: Dr. Jose Richards. SUBJECTIVE: The patient is sitting at the side of the bed, family at bed side. Used BiPAP about 3-1/2 hours, feels much better. Decreased cough. Decreased shortness of breath. No nausea. No vomiting. No diarrhea. No leg pain or leg swelling. PHYSICAL EXAMINATION: GENERAL: In no acute distress. VITAL SIGNS: Temperature is 98, heart rate is 62, respiratory rate is 18, blood pressure is 145/71, and pulse oximetry 100% on nasal cannula. HEENT: Moist mucous membranes. No ulcer or thrush noted. NECK: Supple. No JVD. LUNGS: prolonged expiratory phase. HEART: S1 and S2. ABDOMEN: Soft and nontender. No organomegaly. EXTREMITIES: There is no edema. NEUROLOGIC: Awake, alert and follows simple commands. MEDICATIONS: She is on clonidine 0.3 mg q.8 hours, Dilaudid 1 mg q.4 hours p.r.n., doxycycline 100 mg twice a day, DuoNeb q.8 hours, metoprolol tartrate 100 mg daily, Pepcid 20 mg daily, Plavix 75 mg daily, Procardia XL 90 mg daily, Renagel 800 mg with meals, Singulair 10 mg daily, Solu-Medrol 40 mg q.12 hours, Synthroid 75 mcg a.c.b., labetalol 300 mg q.8 hours, and Zofran on p.r.n. basis. LABORATORY DATA: Reviewed and no new lab is available since yesterday. IMPRESSION AND PLAN: Cardiomyopathy with cardiac diastolic dysfunction, pulmonary infiltrates, renal failure, dialysis dependent, coronary artery disease, chronic obstructive lung disease, peripheral vascular disease, right leg known healing ulcer. Pulmonary point of view, doing okay. Decrease Solu-Medrol to 30 mg q.12 hours. Encourage BiPAP use, inhale bronchodilator. Gastric prophylaxis. Deep venous thrombosis lower extremities. Continue optimize blood pressure medications. Thank you and we will follow with you. Pj Lazaro MD [facility] # [id number]
[2017-09-22] MEDS: HYDROmorphone 0.5 mg/0.5 ml ISec IVP PRN ×2 (04:20→10:21)
[2017-09-22 04:36] VITALS: RESP 18; O2SAT 99
[2017-09-22 06:24] LABS: BASO # 0.01 K/mm3 (0.0-2.0); BASO % 0.2 % (0.0-3.0); GRAN # 4.92 (1.4-6.5); GRAN % 76.6 % (50.0-68.0); HEMOGLOBIN 10.5 g/dL (12.0-16.0); LYMPH # 1.3 (1.2-3.4); LYMPH % 20.2 % (22.0-35.0); MEAN CELL VOLUME 93.8 fl (80.0-105.0); MEAN CORPUSCULAR HEMOGLOBIN 28.2 pg (25.0-35.0); MEAN CORPUSCULAR HGB CONC 30.1 g/dl (31.0-37.0); MEAN PLATELET VOLUME 11.1 fl (7.0-11.0); MONO # 0.2 (0.1-0.6); RBC 3.72 10^6/uL (3.5-6.1); RED CELL DISTRIBUTION WIDTH 17.5 % (11.5-14.5); WHITE BLOOD COUNT 6.4 10^3/ul (4.5-11.0)
[2017-09-22 06:42] LABS: ALB/GLOB RATIO 1.7 (1.1-1.8); ALBUMIN 3.6 g/dL (3.0-4.8); CALCIUM 9.4 mg/dL (8.4-10.5); MAGNESIUM 1.8 mg/dL (1.7-2.2)
[2017-09-22] MEDS ORDERED: Doxercalciferol 4 mcg/2 ml Inj IVP ONE (07:21)
[2017-09-22] MEDS ORDERED: Prostat 15 g packet PO ONE (07:21)
[2017-09-22] MEDS: Albuterol-Ipratrop 3 mg / 0.5 (3 ml) UD IH SCH ×2 (08:37→13:32)
[2017-09-22 09:14] VITALS: TEMP 98.1
[2017-09-22] MEDS: MethylPREDNISolone 40 mg Vial IVP SCH (10:09)
[2017-09-22] MEDS: NIFEdipine 90 mg ER Tab PO SCH (10:09)
[2017-09-22] MEDS: Levothyroxine 75 MCG TAB PO SCH (10:10)
[2017-09-22 10:13] VITALS: PULSE 87
--- NOTE | 2017-09-22 14:08 | CP.PCM.PN ---
Subjective - Date & Time of Evaluation Date of Evaluation: 09/22/17 Time of Evaluation: 10:55 - Subjective Subjective: Seen and examined at the bedside earlier today, chart reviewed. No acute overnight events reported. Patient with no further episodes of diarrhea, nausea or abdominal pain. That has improved. Still gets on occasion reflux but patient states it's chronic. She is eating better, her appetite is slowly improving. Encouraged to take a dietary supplements, like Ensure. No new complaints. Denies shortness of breath or chest pain. Objective - Vital Signs/Intake and Output Vital Signs (last 24 hours): Temp Pulse Resp BP Pulse Ox 98.1 F 87 18 207/75 H 99 09/22/17 06:00 09/22/17 10:23 09/22/17 06:00 09/22/17 10:23 09/22/17 06:00 Intake and Output: 09/22/17 09/22/17 06:59 18:59 Intake Total 0 Balance 0 - Medications Medications: Current Medications Albuterol/Ipratropium (Duoneb 3 Mg/0.5 Mg (3 Ml) Ud) 3 ml IH TIDRESP [facility] Last Admin: 09/22/17 13:32 Dose: Not Given Clonidine HCl (Catapres) 0.3 mg PO Q8H [facility] Last Admin: 09/22/17 10:23 Dose: 0.3 mg Clopidogrel Bisulfate (Plavix) 75 mg PO DAILY [facility] Last Admin: 09/22/17 10:10 Dose: 75 mg Doxycycline Hyclate (Doryx) 100 mg PO Q12 [facility] PRN Reason: Protocol Last Admin: 09/22/17 10:10 Dose: 100 mg Famotidine (Pepcid) 20 mg PO DAILY [facility] Last Admin: 09/22/17 10:10 Dose: 20 mg Labetalol HCl (Trandate) 300 mg PO Q8 [facility] Last Admin: 09/22/17 06:41 Dose: Not Given Levothyroxine Sodium (Synthroid) 75 mcg PO ACB [facility] Last Admin: 09/22/17 10:10 Dose: 75 mcg Methylprednisolone (Solu-Medrol) 30 mg IVP Q12 [facility] Last Admin: 09/22/17 10:09 Dose: 30 mg Metoprolol Tartrate (Lopressor) 100 mg PO BRK [facility] Last Admin: 09/22/17 10:10 Dose: 100 mg Montelukast Sodium (Singulair) 10 mg PO HS [facility] Last Admin: 09/21/17 22:40 Dose: 10 mg Nifedipine (Procardia Xl) 90 mg PO DAILY [facility] Last Admin: 09/22/17 10:09 Dose: 90 mg Ondansetron HCl (Zofran Inj) 4 mg IVP Q4H [facility] PRN Reason: Nausea/Vomiting Last Admin: 09/21/17 19:57 Dose: 4 mg Sevelamer HCl (Renagel) 800 mg PO WM [facility] Last Admin: 09/22/17 13:15 Dose: 800 mg - Labs Labs: 09/22/17 06:00 09/22/17 06:00 - Constitutional Appears: No Acute Distress - Eye Exam Eye Exam: Normal appearance. absent: Scleral icterus - ENT Exam ENT Exam: Mucous Membranes Moist - Respiratory Exam Respiratory Exam: NORMAL BREATHING PATTERN. absent: Respiratory Distress - Cardiovascular Exam Cardiovascular Exam: +S1, +S2 - GI/Abdominal Exam GI & Abdominal Exam: Soft, Normal Bowel Sounds. absent: Guarding, Tenderness, Rebound - Extremities Exam Extremities Exam: absent: Calf Tenderness - Neurological Exam Neurological Exam: Alert, Awake, Oriented x3 - Skin Skin Exam: Dry, Warm Assessment and Plan - Assessment and Plan (Free Text) Assessment: Assessment: Resolved diarrhea, patient denies further episodes,recent history of antibiotic use, Resolved abdominal pain nausea and vomiting Dyspnea, status post recent exacerbation of COPD/P&A CHF Chronic anemia Hypertension COPD End stage renal disease on dialysis CAD status post PCI Gastritis, Reflux disease Plan: continue heart healthy diet continue Pepcid 20 mg Zofran when necessary Monitor electrolytes on Plavix dietary supplemments plan for DC home today. Case discussed with Dr. Mendez who is covering Dr. Bermudez.
[2017-09-22 14:58] VITALS: BP 159/84
--- NOTE | 2017-09-22 15:52 | PN ---
DATE: SUBJECTIVE: The patient is a 57-year-old female seen at bedside for continued evaluation and management of a chronic painful arterial right lower leg ulceration. The patient is status post 1 week PuraPly skin graft. She is set for discharge today and will follow up in the Wound Center weekly. PHYSICAL EXAMINATION: VITAL SIGNS: Revealed temperature of 98.1, pulse rate of 61, blood pressure 140/60, and respiratory rate 18. OBJECTIVE: Weakly palpable pedal pulses noted bilaterally. Capillary filling time is delayed x10. There is noted to be no lower extremity edema. Protective sensation intact using 5.07 g monofilament wire testing. 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 Base of the ulceration is a mixture of fibrous and granular tissue, but is primarily granular at this point. There is no purulence. There is no probing to tendon or bone. Reepithelialization is occurring at the wound edges. There is no malodor and there is noted to be serous drainage. There is an ulceration. The ulceration is noted to have 2 satellite lesions, one proximal and one posterior, they measure less than 0.2 x 0.2 cm x 0.1 cm in depth. They all remain granular and they do not probe to tendon or bone with no purulence. LABORATORY FINDINGS: Revealed white count of 6.4, hemoglobin of 10.5, hematocrit of 34.9, and platelet count of 199. 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 PLAN The patient was seen at bedside. Wound was cleansed with normal sterile saline and application of collagen and Optifoam was applied. The patient will be seen at the Wound Center on for continued evaluation and management. Dougie Forte DPM
--- NOTE | 2017-09-22 19:57 | PN ---
DATE: 09/22/2017 REFERRING PHYSICIAN: Jose Richards MD SUBJECTIVE: She is seen and examined in the dialysis center. Night was unremarkable. Complaining about mild cough. No nausea. No vomiting. No diarrhea. No leg pain. No leg swelling. OBJECTIVE: GENERAL: In no acute distress. VITAL SIGNS: Temperature 98, heart rate is 87, respiratory rate is 18, blood pressure is 140/60, and pulse oximetry is 99% on room air. HEENT: Moist mucous membranes. No ulcer or thrush noted. NECK: Supple. No JVD. LUNGS: Have a few scattered rhonchi and wheezing. HEART: S1 and S2. ABDOMEN: Soft, nontender. No organomegaly. EXTREMITIES: There is no edema. NEUROLOGIC: Awake and alert, follows simple commands. MEDICATIONS: She is on Catapres 0.3 mg q. 8 hours, doxycycline 100 mg twice a day, DuoNeb q.8 hours, metoprolol tartrate 100 mg daily, Pepcid 20 mg daily, Plavix 75 mg daily, Procardia XL 90 mg daily, Renagel 800 mg with meals, Singulair 10 mg daily, Solu-Medrol 30 mg q.12 hours, Synthroid 75 mcg a.c.b., labetalol 300 mg q. 8 hours, Zofran p.r.n. basis. LABORATORY DATA: Shows hemoglobin 10.8, hematocrit 34.9, WBC 6.4, platelet is 199. Sodium 136, potassium 5.4, chloride 96, bicarbonate 24, BUN 85, creatinine 6.7, glucose 107, calcium 9.4, phosphorus 6.5, magnesium 1.8, AST 23, ALT 31, alkaline phosphatase is 92, albumin is 3.6. Influenza A and B serology is negative. IMPRESSION AND PLAN: Chronic obstructive lung disease; cardiomyopathy; cardiac diastolic dysfunction; renal failure, dialysis dependent; peripheral vascular disease with right leg nonhealing ulcer. Pulmonary point of view, she is doing well. Influenza A and B antibodies negative. Spoke to nurse practitioner, the patient can be discharged on tapered dose of steroids, doxycycline for three more days, outpatient attended sleep study and PFT. Thank you and we will follow with you. Pj Lazaro MD
--- NOTE | 2017-09-23 08:36 | PN ---
DATE: 09/22/2017 ADDENDUM I have personally examined this patient and reviewed her laboratory data. I agree with Britta Wheeler' assessment and recommendation. The patient's diarrhea has resolved. She denies any abdominal pain, nausea, or vomiting. She is tolerating solid foods. She denies any reflux. She denies any overt GI bleeding. Her hemoglobin has been stable. The patient is to be discharged home today with medical follow-up Raymond Mendez MD
== END 2017-09-22 15:14 | disposition home or self-care (01) | DRG 190 ==
LOC: ED 13:30 → ERH 19:26 → 3RNO 09-18 00:22 → OBSVTOIN 09-18 13:25
PROVIDERS: ADMIT Internal Medicine Nephrology; ATTEND Internal Medicine
PROC: 5A1D70Z Performance of Urinary Filtration, Intermittent, Less than 6 Hours Per Day (ICD-10-PCS; principal; 2017-09-19)
PROC: 5A09357 Assistance with Respiratory Ventilation, Less than 24 Consecutive Hours, Continuous Positive Airway Pressure (ICD-10-PCS; 2017-09-20)
DX: J44.1 Chronic obstructive pulmonary disease with (acute) exacerbation (principal); N18.6 End stage renal disease; I13.2 Hypertensive heart and chronic kidney disease with heart failure and with stage 5 chronic kidney disease, or end stage renal disease; I27.20 Pulmonary hypertension, unspecified; I42.9 Cardiomyopathy, unspecified; E87.5 Hyperkalemia; K31.84 Gastroparesis; L97.919 Non-pressure chronic ulcer of unspecified part of right lower leg with unspecified severity; I50.30 Unspecified diastolic (congestive) heart failure; N25.81 Secondary hyperparathyroidism of renal origin; R64 Cachexia; Z68.1 Body mass index [BMI] 19.9 or less, adult; J44.0 Chronic obstructive pulmonary disease with (acute) lower respiratory infection; J20.9 Acute bronchitis, unspecified; I25.10 Atherosclerotic heart disease of native coronary artery without angina pectoris; E03.9 Hypothyroidism, unspecified; D63.1 Anemia in chronic kidney disease; K29.70 Gastritis, unspecified, without bleeding; I16.0 Hypertensive urgency; K21.9 Gastro-esophageal reflux disease without esophagitis; I73.9 Peripheral vascular disease, unspecified; K58.0 Irritable bowel syndrome with diarrhea; Z87.891 Personal history of nicotine dependence; Z99.2 Dependence on renal dialysis; Z86.010 Personal history of colon polyps; Z87.11 Personal history of peptic ulcer disease; Z95.5 Presence of coronary angioplasty implant and graft

== ENCOUNTER 2017-09-24 14:00 | Inpatient (IN) | payer MEDICARE, OTHER ==
[2017-09-24 14:01] VITALS: BMI 19.9
--- NOTE | 2017-09-24 14:15 | ED PDOC ---
Arrival/HPI - General Chief Complaint: Seizure Time Seen by Provider: 09/24/17 14:05 Historian: Family (son) - Critical Care Critical Care Minutes: 30 minutes Critical Care Time: Excluding Proc Time Narrative Critical Care (Text): 09/24/17 16:00 for alyssaene drnida and mgmt of intrcranial hemorrhage - History of Present Illness Narrative History of Present Illness (Text): 09/24/17 14:19 A 57 year old female, whose past medical history includes hypertension, CHF, COPD, ESRD with hemodialysis (on /Thu), presents to the emergency department complaining of questionable seizure. Per son, he was bringing patient for dialysis when patient began acting "not quite right." Patient began staring into space and hand was shaky. 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 Upon arrival to ER, patient was awake. Patient was found to have R gaze deviation. Code stroke was called. Limited HPI and ROS due to acuity of situation. PMD: Dr. Coffman Past Medical History - Provider Review Nursing Documentation Reviewed: Yes - Past History Past History: No Previous - Infectious Disease Hx of Infectious Diseases: None - Tetanus Immunization Tetanus Immunization: Unknown - Cardiac Hx Cardiac Disorders: Yes Hx Congestive Heart Failure: Yes Hx Hypertension: Yes Hx Peripheral Vascular Disease: Yes Other/Comment: HI x 2, DVT - Pulmonary Hx Respiratory Disorders: Yes Hx Asthma: Yes Hx Chronic Obstructive Pulmonary Disease (COPD): Yes Hx Emphysema: Yes Hx Pneumonia: Yes Hx Sleep Apnea: Yes - Neurological Hx Neurological Disorder: No - HEENT Hx HEENT Disorder: Yes (hard of hearing) Hx Blind: No Hx Cataracts: No Hx Deafness: No Hx Difficulty Chewing: No Hx Epistaxis: No Hx Glaucoma: No Hx Macular Degeneration: No - Renal Hx Renal Disorder: Yes Hx Dialysis: Yes (TTS) Date of Last Dialysis Treatment: 09/17/17 Hx Renal Cancer: No Hx Renal Failure: Yes - Endocrine/Metabolic Hx Endocrine Disorders: Yes Hx Hypothyroidism: Yes - Hematological/Oncological Hx Blood Disorders: Yes - Integumentary Hx Dermatological Disorder: No (non healing sugical wound to right ankle) - Musculoskeletal/Rheumatological Hx Musculoskeletal Disorders: Yes Hx Arthritis: Yes Hx Back Pain: Yes Hx Falls: No Hx Osteoarthritis: Yes Hx Unsteady Gait: Yes - Gastrointestinal Hx Gastrointestinal Disorders: Yes (FECAL IMPACTION,CONSTIPATION,POOR APPETITE, GASTRITIS) Hx Diverticulitis: Yes - Genitourinary/Gynecological Hx Genitourinary Disorders: No - Psychiatric Hx Psychophysiologic Disorder: Yes Hx Anxiety: Yes Hx Bipolar Disorder: No Hx Depression: No Hx Emotional Abuse: No Hx Hallucinations: No Hx Panic Disorder: No Hx Post Traumatic Stress Disorder: No Hx Psychosis: No Hx Physical Abuse: No Hx Schizophrenia: No Hx Sexual Abuse: No Hx Substance Use: No - Past Surgical History Past Surgical History: Unable to Obtain - Surgical History Hx Appendectomy: Yes Hx Cardiac Catheterization: Yes Hx Coronary Stent: Yes Other/Comment: port placement dialysis cath, R arm graft ( not functioning0 - Anesthesia Hx Anesthesia: Yes Hx Anesthesia Reactions: No Hx Malignant Hyperthermia: No - Suicidal Assessment Feels Threatened In Home Enviroment: No Family/Social History - Physician Review Nursing Documentation Reviewed: Yes Family/Social History: No Known Family HX Smoking Status: Former Smoker Hx Alcohol Use: No Hx Substance Use: No Hx Substance Use Treatment: No Allergies/Home Meds Allergies/Adverse Reactions: Allergies ciprofloxacin Allergy (Verified 09/24/17 14:10) RASH hydralazine Allergy (Verified 09/24/17 14:10) RASH vomiting vancomycin Allergy (Verified 09/24/17 14:10) SHORTNESS OF BREATH palpitations ct dye Allergy (Uncoded 09/24/17 14:10) RASH Home Medications: Home Meds Medication Instructions Recorded Confirmed Unobtainable 09/24/17 09/24/17 Review of Systems - Review of Systems Systems not reviewed;Unavailable: Altered Mental Status Physical Exam Vital Signs Reviewed: Yes Vital Signs Temp Pulse Resp BP Pulse Ox 09/24/17 15:53 104 H 24 151/76 H 100 09/24/17 15:45 105 H 23 162/76 H 100 09/24/17 15:35 103 H 21 167/90 H 100 09/24/17 15:20 105 H 20 184/77 H 100 09/24/17 15:05 102 H 21 194/91 H 100 09/24/17 14:50 91 H 18 204/91 H 97 09/24/17 14:48 89 256/112 H 09/24/17 14:45 99.9 F H 09/24/17 14:35 89 18 260/100 H 90 L Temperature: Afebrile Blood Pressure: Hypertensive Pulse: Regular Respiratory Rate: Normal Appearance: Positive for: Well-Appearing Pain Distress: None Mental Status: No: Alert and Oriented X 3 (patient is currently alert) - Systems Exam Head: Present: Atraumatic, Normocephalic Pupils: Present: Other (right gaize deviation) Mouth: Present: Moist Mucous Membranes Neck: Present: Normal Range of Motion Respiratory/Chest: Present: Good Air Exchange, Rales (at basis) Cardiovascular: Present: Regular Rate and Rhythm, Normal S1, S2. No: Murmurs Abdomen: Present: Normal Bowel Sounds. No: Tenderness, Distention, Peritoneal Signs Upper Extremity: No: Cyanosis, Edema Lower Extremity: Present: Other (left side neglect with no ROM) Psychiatric: Present: Alert. No: Oriented x 3 Medical Decision Making ED Course and Treatment: 09/24/2017 14:11 Code stroke called. 09/24/17 14:20 EKG shows NSR at 88bpm with LVH, large amount of artifact. repeat requested 09/24/17 14:48 CT shows 1. Acute hemorrhage in the right caudate head measuring 13 x 8 mm 2. Diffuse white matter changes extending to the basal ganglia and internal capsules, worse on the right may represent diffuse hypoxia or toxic/ metabolic demyelination. An MRI of the brain without and with intravenous contrast would be helpful for further characterization. 09/24/17 15:[address] Dyer and recommends NSx evaluation and agrees with cardene to SBP 140-160, and cerebryx that was already ordered. Spoke to Dr. Gill and no sx intervention reccommended. Accepted to ICU 09/24/17 15:24 EKG shows NSR at 90bpm with LVH, large artifact, but appears no STEMI 09/24/2017 15:27 Chest X-ray IMPRESSION: No active disease. Dictator: Akhil Vargas MD - Lab Interpretations Lab Results: 09/24/17 14:15 09/24/17 14:15 Lab Results 09/24/17 14:15: Blood Type O POSITIVE, Antibody Screen Negative, BBK History Checked Patient has bt 09/24/17 14:15: Sodium 133, Potassium 4.7, Chloride 91 L, Carbon Dioxide 22, Anion Gap 25 H, BUN 63 H, Creatinine 6.4 H, Est GFR ( Amer) 8, Est GFR ( Non-Af Amer) 7, Random Glucose 112 H, Calcium 10.0, Total Bilirubin 0.9, AST 34 , ALT 31, Alkaline Phosphatase 129 H D, Troponin I 0.11 D, Total Protein 6.6, Albumin 4.2, Globulin 2.4, Albumin/Globulin Ratio 1.8, Triglycerides 121, Cholesterol 153, LDL Cholesterol Direct 68, HDL Cholesterol 53 09/24/17 14:15: PT 10.7, INR 0.93, APTT 26.4 09/24/17 14:15: WBC 10.4 D, RBC 4.59, Hgb 13.1 D, Hct 43.1, MCV 93.9, MCH 28.5 , MCHC 30.4 L, RDW 16.9 H, Plt Count 213, MPV 11.4 H, Gran % 75.8 H, Lymph % ( Auto) 18.6 L, [place] % (Auto) 4.4, Eos % (Auto) 1.1 L, Baso % (Auto) 0.1, Gran # 7.85 H, Lymph # 1.9, [place] # 0.5, Eos # 0.1, Baso # 0.01 - RAD Interpretation Radiology Orders: 09/24/17 14:11 HEAD W/O (CODE STROKE) [CT] Stat CHEST PORTABLE [RAD] Stat - Medication Orders Current Medication Orders: Nicardipine HCl (Cardene Iv Premix) 20 mg in 200 mls @ 50 mls/hr IV .Q4H PRN; Protocol; 5 MG/HR PRN Reason: TITRATE PER MD ORDER Last Admin: 09/24/17 14:48 Dose: 50 mls/hr Comments: increased cardene at 7.5mg/hr at 15:00 eMAR Start Stop Document 09/24/17 14:48 LA (Rec: 09/24/17 14:53 [email or web address] [id number]) Intravenous Solution Start Date 09/24/17 Start Time 14:48 MAR Pulse and Blood Pressure Document 09/24/17 14:48 LA (Rec: 09/24/17 14:53 [email or web address] [id number]) Pulse Pulse Rate (60-90) 89 Blood Pressure Blood Pressure (100/60-150/90) 256/112 Discontinued Medications Fosphenytoin Sodium 1,000 mg/ (Sodium Chloride) 70 mls @ 100 mls/hr IV STAT STA Stop: 09/24/17 15:19 Morphine Sulfate (Morphine) 1 mg IVP STAT STA Stop: 09/24/17 15:25 Ondansetron HCl (Zofran Inj) 4 mg IVP STAT STA Stop: 09/24/17 15:42 NIHSS Scale ([place]) Time Performed: 14:13 - How Severe is the Stoke Baseline Level of Consciousness: 0=Alert LOC to Questions: 1=One correct LOC to commands: 0=Obeys both correctly Best Gaze: 1=Partial gaze palsy Visual: 1=Partial hemianopia Facial: 1=Minor asymmetry Motor Arm - Left: 4=No movement Motor Arm - Right: 0=No drift Motor Leg - Left: 4=No movement Motor Leg - Right: 0=No drift Limb Ataxia: 0=Absent Sensory: 0=Normal Best Language: 0=No aphasia Dysarthia: 0=Normal articulation Extinction & Inattention (Neglect): 2=Profound neglect(does not recognize own hand or orients to one side) Score: 14 Risk Level: Mod Stroke Risk NIHSS Scale([place]) 2 Time Performed: 14:43 - How Severe is the Stoke Baseline Level of Consciousness: 0=Alert LOC to Questions: 1=One correct LOC to commands: 0=Obeys both correctly Best Gaze: 1=Partial gaze palsy Visual: 1=Partial hemianopia Facial: 1=Minor asymmetry Motor Arm - Left: 1=Drift noted before 10 sec Motor Arm - Right: 0=No drift Motor Leg - Left: 4=No movement Motor Leg - Right: 0=No drift Limb Ataxia: 0=Absent Sensory: 0=Normal Best Language: 0=No aphasia Dysarthia: 0=Normal articulation Extinction & Inattention (Neglect): 0=Normal, no object Score: 9 Risk Level: Mod Stroke Risk rTPA Inclusion/Exclusion - Refusal of Treatment Patient Refused Treatment: No - Inclusion Criteria for Altepase Patient is 18 years or Older: Yes The Clinical Diagnosis of Ischemic Stroke That is Causing a Potentially Disabling Neurological Deficit: No Time of Onset is Well Established to be Less Than 270 Minute Before Treatment Would Begin: No Risk/Benefit Discussed With Patient/Family Member Present: No Disposition/Present on Arrival - Present on Arrival Any Indicators Present on Arrival: No History of DVT/PE: No History of Uncontrolled Diabetes: No Urinary Catheter: No History of Decub. Ulcer: No History Surgical Site Infection Following: None - Disposition Have Diagnosis and Disposition been Completed?: Yes Diagnosis: Intracranial hemorrhage Disposition: HOSPITALIZED Disposition Time: 14:11 Patient Plan: ICU Patient Problems: Current Active Problems Problem Status Onset Intracranial hemorrhage Acute Condition: CRITICAL
[2017-09-24] MEDS ORDERED: Iohexol 350 MG/100 ML VIAL ONE (14:17)
[2017-09-24 14:23] LABS: BASO # 0.01 K/mm3 (0.0-2.0); BASO % 0.1 % (0.0-3.0); EOS # 0.1 (0.0-0.7); EOS % 1.1 % (1.5-5.0); GRAN # 7.85 (1.4-6.5); GRAN % 75.8 % (50.0-68.0); HEMOGLOBIN 13.1 g/dL (12.0-16.0); LYMPH # 1.9 (1.2-3.4); LYMPH % 18.6 % (22.0-35.0); MEAN CELL VOLUME 93.9 fl (80.0-105.0); MEAN CORPUSCULAR HEMOGLOBIN 28.5 pg (25.0-35.0); MEAN CORPUSCULAR HGB CONC 30.4 g/dl (31.0-37.0); MEAN PLATELET VOLUME 11.4 fl (7.0-11.0); MONO # 0.5 (0.1-0.6); MONO % 4.4 % (1.0-6.0); RBC 4.59 10^6/uL (3.5-6.1); RED CELL DISTRIBUTION WIDTH 16.9 % (11.5-14.5); WHITE BLOOD COUNT 10.4 10^3/ul (4.5-11.0)
[2017-09-24] MEDS ORDERED: Fosphenytoin 1,000 MG in Sodium Chloride 0.9% 50 ML IV STA (14:38)
[2017-09-24 14:41] LABS: INR 0.93 (0.93-1.08); PARTIAL THROMBOPLASTIN TIME 26.4 Seconds (25.1-36.5); PROTHROMBIN TIME 10.7 SECONDS (9.4-12.5)
[2017-09-24] MEDS: Nicardipine 20 MG/200 ML 20 MG/200 ML BAG IV PRN ×4 (14:48→21:19)
--- NOTE | 2017-09-24 14:48 | CT ---
PROCEDURE: CT HEAD WITHOUT CONTRAST. HISTORY: Code Stroke COMPARISON: 10/02/2016. TECHNIQUE: Axial computed tomography images were obtained through the head/brain without intravenous contrast. Radiation dose: Total exam DLP = 795.77 mGy-cm. This CT exam was performed using one or more of the following dose reduction techniques: Automated exposure control, adjustment of the mA and/or kV according to patient size, and/or use of iterative reconstruction technique. FINDINGS: HEMORRHAGE: There is a 13 x 8 mm focal acute hemorrhage in the right caudate head. BRAIN: There is diffuse hypodensity in the periventricular white matter extending to the internal capsules. There is an old infarction in the left cerebellar hemisphere. VENTRICLES: There is mild mass effect on the right frontal horn. There is moderate age-related global parenchymal volume loss and proportionate enlargement of the ventricles and cortical sulci. CALVARIUM: The skull base and calvarium are normal. PARANASAL SINUSES: Predominantly clear. MASTOID AIR CELLS: Predominantly clear. OTHER FINDINGS: None. IMPRESSION: 1. Acute hemorrhage in the right caudate head measuring 13 x 8 mm 2. Diffuse white matter changes extending to the basal ganglia and internal capsules, worse on the right may represent diffuse hypoxia or toxic/ metabolic demyelination. An MRI of the brain without and with intravenous contrast would be helpful for further characterization. Critical findings were discussed with Dr. Tiffanie Mares on 09/24/2017 at 2:35 p.m.
[2017-09-24 14:57] LABS: ALB/GLOB RATIO 1.8 (1.1-1.8); ALBUMIN 4.2 g/dL (3.0-4.8)
[2017-09-24 15:08] LABS: TROPONIN I 0.11 ng/mL
[2017-09-24] MEDS ORDERED: Morphine 2 mg/ml ISec IVP STA (15:24)
--- NOTE | 2017-09-24 15:29 | RAD ---
HISTORY: altered COMPARISON: 09/17/2017 FINDINGS: LUNGS: No active pulmonary disease. PLEURA: No significant pleural effusion identified, no pneumothorax apparent. CARDIOVASCULAR: Mild cardiomegaly OSSEOUS STRUCTURES: No significant abnormalities. VISUALIZED UPPER ABDOMEN: Normal. OTHER FINDINGS: Right internal dialysis catheter IMPRESSION: No active disease.
[2017-09-24] MEDS ORDERED: Morphine 4 mg/ml ISec IVP STA (16:03)
[2017-09-24] MEDS ORDERED: Morphine 2 mg/ml ISec IVP PRN (16:04)
[2017-09-24] MEDS ORDERED: levETIRAcetam 500 MG in Sodium Chloride 0.9% 100 ML IV SCH (16:15)
--- NOTE | 2017-09-24 16:15 | CP.PCM.CON ---
<Pauline Babcock - Last Filed: 09/24/17 17:29> History of Present Illness - History of Present Illness History of Present Illness: ICU Consult Note for Emily Malcolm PGY2 Reason for consult: Intracerebral hemorrhage This is a 57yo Female with PMH of CHF, COPD on home O2 (4L), HTN, ESRD on HD (T/ T/Sa), CAD s/p stent, hypothyroidism, falls, chronic ischemic R leg ulcer who came to ED for fall and questionable seizure. She reports that she was leaving dialysis and was feeling shaky. She fell on the stairs and hit her head. Patient reports she did not lose consciousness or have bowel or bladder incontinence. As per son, who witnessed the fall, states she had a "seizure" and was shaking with her eyes closed. Patient reports having chest pain that radiates to her neck and arms as well as vision changes, headache, and nausea. She denies shortness of breath, fever/chills, numbness/tingling, weakness, diarrhea. In ED, Code stroke was called. Head CT showed acute hemorrhage in R Caudate. Her SBP was found to be in 200s. Patient was placed on Cardene drip. Past medical history: CAD s/p stent, CHF, COPD on home O2, HTN, ESRD on HD, Peptic ulcer disease, hypothyroidism, chronic anemia, frequent falls, chronic R ischemic leg ulcers Past surgical history: R port placement, R carotid angioplasty, bilateral leg arterial bypass (2017), debridement of R leg ulcer (09/2017) Home meds: As per MAR Allergies: Cipro, Hydralazine, vancomycin, CT dye Social history: Former smoker (Quit 5yrs ago- 80pack yr history), Denies drug or alcohol use. Lives with son. Ambulates with walker or wheelchair. Review of Systems - Review of Systems All systems: reviewed and no additional remarkable complaints except Review of Systems: As per HPI. ROS + for nausea, headache, chest pain, vision changes Past Patient History - Infectious Disease Hx of Infectious Diseases: None - Tetanus Immunizations Tetanus Immunization: Unknown - Past Social History Smoking Status: Former Smoker Alcohol: None Drugs: Denies Home Situation {Lives}: With Family - CARDIAC Hx Cardiac Disorders: Yes Hx Congestive Heart Failure: Yes Hx Hypertension: Yes Hx Peripheral Vascular Disease: Yes Other/Comment: ND x 2, DVT - PULMONARY Hx Respiratory Disorders: Yes Hx Asthma: Yes Hx Chronic Obstructive Pulmonary Disease (COPD): Yes Hx Emphysema: Yes Hx Pneumonia: Yes Hx Sleep Apnea: Yes - NEUROLOGICAL Hx Neurological Disorder: No - HEENT Hx HEENT Problems: Yes (hard of hearing) Hx Blind: No Hx Cataracts: No Hx Deafness: No Hx Difficulty Chewing: No Hx Epistaxis: No Hx Glaucoma: No Hx Macular Degeneration: No - RENAL Hx Chronic Kidney Disease: Yes Hx Dialysis: Yes (TTS) Date of Last Dialysis Treatment: 09/17/17 Hx Renal (Kidney) Cancer: No Hx Renal Failure: Yes - ENDOCRINE/METABOLIC Hx Endocrine Disorders: Yes Hx Hypothyroidism: Yes - HEMATOLOGICAL/ONCOLOGICAL Hx Blood Disorders: Yes - INTEGUMENTARY Hx Dermatological Problems: No (non healing sugical wound to right ankle) - MUSCULOSKELETAL/RHEUMATOLOGICAL Hx Musculoskeletal Disorders: Yes Hx Arthritis: Yes Hx Back Pain: Yes Hx Falls: No Hx Osteoarthritis: Yes Hx Unsteady Gait: Yes - GASTROINTESTINAL Hx Gastrointestinal Disorders: Yes (FECAL IMPACTION,CONSTIPATION,POOR APPETITE, GASTRITIS) Hx Diverticulitis: Yes - GENITOURINARY/GYNECOLOGICAL Hx Genitourinary Disorders: No - PSYCHIATRIC Hx Psychophysiologic Disorder: Yes Hx Anxiety: Yes Hx Bipolar Disorder: No Hx Depression: No Hx Emotional Abuse: No Hx Hallucinations: No Hx Panic Symptoms: No Hx Post Traumatic Stress Disorder: No Hx Psychosis: No Hx Physical Abuse: No Hx Schizophrenia: No Hx Sexual Abuse: No Hx Substance Use: No - SURGICAL HISTORY Hx Appendectomy: Yes Hx Cardiac Catheterization: Yes Hx Coronary Stent: Yes Other/Comment: port placement dialysis cath, R arm graft ( not functioning0 - ANESTHESIA Hx Anesthesia: Yes Hx Anesthesia Reactions: No Hx Malignant Hyperthermia: No Meds Allergies/Adverse Reactions: Allergies Allergy/AdvReac Type Severity Reaction Status Date / Time ciprofloxacin Allergy RASH Verified 09/24/17 14:10 hydralazine Allergy RASH Verified 09/24/17 14:10 vancomycin Allergy SHORTNESS Verified 09/24/17 14:[address] dye Allergy RASH Uncoded 09/24/17 14:10 - Medications Medications: Current Medications Famotidine (Pepcid) 20 mg PO BID ZANA Nicardipine HCl (Cardene Iv Premix) 20 mg in 200 mls @ 50 mls/hr IV .Q4H PRN; Protocol; 5 MG/HR PRN Reason: TITRATE PER MD ORDER Last Admin: 09/24/17 14:48 Dose: 50 mls/hr Levetiracetam 500 mg/ Sodium (Chloride) 105 mls @ 460 mls/hr IV DAILY ZANA Morphine Sulfate (Morphine) 2 mg IVP Q4H PRN PRN Reason: Pain, moderate (4-7) Ondansetron HCl (Zofran Inj) 4 mg IVP Q6H PRN PRN Reason: Nausea/Vomiting Physical Exam - Constitutional Appears: No Acute Distress, Chronically Ill - Head Exam Head Exam: NORMAL INSPECTION, NORMOCEPHALIC - Eye Exam Eye Exam: PERRL Pupil Exam: NORMAL ACCOMODATION, PERRL Additional comments: R gaze preference - ENT Exam ENT Exam: Mucous Membranes Moist - Respiratory Exam Respiratory Exam: Clear to Auscultation Bilateral, NORMAL BREATHING PATTERN. absent: Rales, Rhonchi, Wheezes - Cardiovascular Exam Cardiovascular Exam: REGULAR RHYTHM, +S1, +S2. absent: Gallop, Rubs, Systolic Murmur - GI/Abdominal Exam GI & Abdominal Exam: Distended, Normal Bowel Sounds, Soft. absent: Rigid, Tenderness - Extremities Exam Additional comments: Chronic R lower wound with dressing intact- clean and dry - Neurological Exam Neurological exam: Alert, Oriented x3 - Expanded Neurological Exam Expanded Patient oriented to: person, place, time Cranial nerves: EOM's Intact: Normal Upper motor neuron: Babinski Sign: Normal Sensory exam: Lower Extremity 2 Point Discrimination: Normal, Upper Extremity 2 Point Discrimination: Normal Neuro motor strength exam: Left Upper Extremity: 5, Right Upper Extremity: 5, Left Lower Extremity: 2/1, Right Lower Extremity: 5 Coma Scale Eye Opening: SPONTANEOUS Coma Scale Motor Response: OBEYS COMMANDS Coma Scale Verbal: Oriented Coma Scale Total: 15 - Psychiatric Exam Psychiatric exam: Normal Affect, Normal Mood - Skin Skin Exam: Dry, Warm Results - Vital Signs Recent Vital Signs: Last Vital Signs Temp 99.9 F H 09/24/17 14:45 Pulse 102 H 09/24/17 16:00 Resp 24 09/24/17 16:00 BP 150/72 09/24/17 16:00 Pulse Ox 100 09/24/17 16:00 - Labs Result Diagrams: 09/24/17 14:15 09/24/17 14:15 Labs: Laboratory Results - last 24 hr 01/09/24/17 09/24/17 14:15 14:15 14:15 WBC 10.4 D RBC 4.59 Hgb 13.1 D Hct 43.1 MCV 93.9 MCH 28.5 MCHC 30.4 L RDW 16.9 H Plt Count 213 MPV 11.4 H Gran % 75.8 H Lymph % (Auto) 18.6 L [place] % (Auto) 4.4 Eos % (Auto) 1.1 L Baso % (Auto) 0.1 Gran # 7.85 H Lymph # 1.9 [place] # 0.5 Eos # 0.1 Baso # 0.01 PT 10.7 INR 0.93 APTT 26.4 Sodium 133 Potassium 4.7 Chloride 91 L Carbon Dioxide 22 Anion Gap 25 H BUN 63 H Creatinine 6.4 H Est GFR ( Amer) 8 Est GFR (Non-Af Amer) 7 Random Glucose 112 H Calcium 10.0 Total Bilirubin 0.9 AST 34 ALT 31 Alkaline Phosphatase 129 H D Troponin I 0.11 D Total Protein 6.6 Albumin 4.2 Globulin 2.4 Albumin/Globulin Ratio 1.8 Triglycerides 121 Cholesterol 153 LDL Cholesterol Direct 68 HDL Cholesterol 53 Blood Type Antibody Screen BBK History Checked 09/24/17 14:15 WBC RBC Hgb Hct MCV MCH MCHC RDW Plt Count MPV Gran % Lymph % (Auto) [place] % (Auto) Eos % (Auto) Baso % (Auto) Gran # Lymph # [place] # Eos # Baso # PT INR APTT Sodium Potassium Chloride Carbon Dioxide Anion Gap BUN Creatinine Est GFR ( Amer) Est GFR (Non-Af Amer) Random Glucose Calcium Total Bilirubin AST ALT Alkaline Phosphatase Troponin I Total Protein Albumin Globulin Albumin/Globulin Ratio Triglycerides Cholesterol LDL Cholesterol Direct HDL Cholesterol Blood Type O POSITIVE Antibody Screen Negative BBK History Checked Patient has bt Assessment & Plan - Assessment and Plan (Free Text) Assessment: This is a 57yo Female with PMH of CHF, COPD on home O2 (4L), HTN, ESRD on HD (T/ T/Sa), CAD s/p stent, hypothyroidism, falls, chronic ischemic R leg ulcer who is admitted for R Intracerebral hemorrhage most likely secondary to uncontrolled HTN v. fall. Plan: Neuro: R ICH Neuro checks q1h Neuro consulted- recs appreciated Neurosurgery consulted- no surgical intervention at this time Keppra renally dosed for questionable seizure Seizure precaution Maintain normothermia CV: HTN Emergency Maintain SBP 140-160s Continue Cardene drip Troponin 0.11 - will continue to trend EKG showed NSR@ 88 with LVH Pulm: Hx of COPD on 4L O2 at home Continue nasal cannula Maintain SpO2>92% Aspiration precaution Head of bed elevated GI: NPO Swallow eval Zofran prn nausea Heme: Hgb stable- will continue to monitor Hold anticoagulants Nephro: ESRD on HD Nephro consulted Continue HD schedule No cook needed- pt does not make urine ID: Afebrile, no leukocytosis No sign of infection at this time Endo: Maintain euglycemia (140s-180s) and euvolemia GI ppx: Pepcid DVT ppx: SCDs Case seen, discussed and reviewed with attending. Emily Babcock PGY2 - Date & Time Date: 09/24/17 Time: 17:11 <Alexis Strauss - Last Filed: 09/24/17 17:39> Meds - Medications Medications: Current Medications Famotidine (Pepcid) 20 mg PO BID ZANA Hydromorphone HCl (Dilaudid) 1 mg IVP Q4H PRN PRN Reason: Pain, severe (8-10) Nicardipine HCl (Cardene Iv Premix) 20 mg in 200 mls @ 50 mls/hr IV .Q4H PRN; Protocol; 5 MG/HR PRN Reason: TITRATE PER MD ORDER Last Admin: 09/24/17 16:54 Dose: 10 mg/hr, 100 mls/hr Levetiracetam (Keppra 500mg Ivpb) 500 mg in 100 mls @ 460 mls/hr IV DAILY ZANA Ondansetron HCl (Zofran Inj) 4 mg IVP Q6H PRN PRN Reason: Nausea/Vomiting Results - Vital Signs Recent Vital Signs: Last Vital Signs Temp 99.9 F H 09/24/17 14:45 Pulse 103 H 09/24/17 16:54 Resp 21 09/24/17 16:25 BP 154/78 H 09/24/17 16:54 Pulse Ox 100 09/24/17 16:25 - Labs Result Diagrams: 09/24/17 14:15 09/24/17 14:15 Assessment & Plan - Assessment and Plan (Free Text) Plan: Patient seen and examined, with resident, agree with note with following additions/exceptions: 57yo Female with PMH of CHF, COPD on home O2 (4L), HTN, ESRD on HD (T/T/Sa), CAD s/p stent, hypothyroidism, falls, chronic ischemic R leg ulcer who came to ED for fall and questionable seizure, found to have R caudate IPH, currently AAOx3, NAD, non focal neurological exam. Patient received Cerebryx in the ER. Neurosurgery consulted, Neurology evaluated the patient, recs appreciated. Access has been an issue, patient with difficult PIVs, refusing central line. IPH ESRD ON HD HTN EMERGENCY Recommend: - supp o2 as needed - panculture - BP control, keep SBP<140, continue with Cardene drip - Antiepileptics as per neurology - EEG - repeat CT head in the AM - maintain euthermia, FS 140-180 - consult nephrology for HD as per schedule - repeat cardiac enzymes - GI ppx, PPI - DVT ppx, SCDs - Monitor in MICU criticla care time 35 minutes
[2017-09-24] MEDS ORDERED: levETIRAcetam 500mg IVPB 500 MG/100 ML BAG IV SCH (16:26)
[2017-09-24] MEDS ORDERED: levETIRAcetam 500mg IVPB 500 MG/100 ML BAG IV STA (16:27)
[2017-09-24] MEDS ORDERED: HYDROmorphone 0.5 mg/0.5 ml ISec IVP STA (16:51)
--- NOTE | 2017-09-24 17:20 | CP.PCM.PN ---
Subjective - Date & Time of Evaluation Date of Evaluation: 09/24/17 Time of Evaluation: 17:18 - Subjective Subjective: small right thalamic itntracerebral hematoma not surgiacal lesion suggest neruology eval and treat if there is any change which demonstrates increase in hematoma size reconsult and we will reevaluate Objective - Vital Signs/Intake and Output Vital Signs (last 24 hours): Temp Pulse Resp BP Pulse Ox 99.9 F H 103 H 21 154/78 H 100 09/24/17 14:45 09/24/17 16:54 09/24/17 16:25 09/24/17 16:54 09/24/17 16:25 - Medications Medications: Current Medications Famotidine (Pepcid) 20 mg PO BID [facility] Hydromorphone HCl (Dilaudid) 1 mg IVP Q4H PRN PRN Reason: Pain, severe (8-10) Nicardipine HCl (Cardene Iv Premix) 20 mg in 200 mls @ 50 mls/hr IV .Q4H PRN; Protocol; 5 MG/HR PRN Reason: TITRATE PER MD ORDER Last Admin: 09/24/17 16:54 Dose: 10 mg/hr, 100 mls/hr Levetiracetam (Keppra 500mg Ivpb) 500 mg in 100 mls @ 460 mls/hr IV DAILY [facility] Ondansetron HCl (Zofran Inj) 4 mg IVP Q6H PRN PRN Reason: Nausea/Vomiting - Labs Labs: PT 10.7 SECONDS (9.4-12.5) 09/24/17 14:15 INR 0.93 (0.93-1.08) 09/24/17 14:15 APTT 26.4 Seconds (25.1-36.5) 09/24/17 14:15
--- NOTE | 2017-09-24 17:36 | CP.PCM.CON ---
History of Present Illness - History of Present Illness History of Present Illness: Mrs. Thakur is a 57-year-old woman with a past medical history of CHF, COPD on home O2 (4L), HTN, ESRD on HD, CAD s/p stent, hypothyroidism, falls, chronic ischemic right leg ulcer who has had several falls over the last few days despite being wheelchair-bound. She states that this morning, she woke up with a severe headache, 8/10 in severity, throbbing in quality, and started to have shaking of her left lower extremity. She was brought to the ED, and lost consciousness in the EMS vehicle after whole-body shaking. She was loaded with dilantin in the ED and is now at her baseline, fully alert, awake and conversant. CT scan of the head showed a right caudate head hemorrhagic stroke. BP was elevated to the 220's range, but came done to the 150's with Cardene drip. Review of Systems - Review of Systems All systems: reviewed and no additional remarkable complaints except Past Patient History - Infectious Disease Hx of Infectious Diseases: None - Tetanus Immunizations Tetanus Immunization: Unknown - Past Social History Smoking Status: Former Smoker Alcohol: None Drugs: Denies Home Situation {Lives}: With Family - CARDIAC Hx Cardiac Disorders: Yes Hx Congestive Heart Failure: Yes Hx Hypertension: Yes Hx Peripheral Vascular Disease: Yes Other/Comment: [place] x 2, DVT - PULMONARY Hx Respiratory Disorders: Yes Hx Asthma: Yes Hx Chronic Obstructive Pulmonary Disease (COPD): Yes Hx Emphysema: Yes Hx Pneumonia: Yes Hx Sleep Apnea: Yes - NEUROLOGICAL Hx Neurological Disorder: No - HEENT Hx HEENT Problems: Yes (hard of hearing) Hx Blind: No Hx Cataracts: No Hx Deafness: No Hx Difficulty Chewing: No Hx Epistaxis: No Hx Glaucoma: No Hx Macular Degeneration: No - RENAL Hx Chronic Kidney Disease: Yes Hx Dialysis: Yes (TTS) Date of Last Dialysis Treatment: 09/17/17 Hx Renal (Kidney) Cancer: No Hx Renal Failure: Yes - ENDOCRINE/METABOLIC Hx Endocrine Disorders: Yes Hx Hypothyroidism: Yes - HEMATOLOGICAL/ONCOLOGICAL Hx Blood Disorders: Yes - INTEGUMENTARY Hx Dermatological Problems: No (non healing sugical wound to right ankle) - MUSCULOSKELETAL/RHEUMATOLOGICAL Hx Musculoskeletal Disorders: Yes Hx Arthritis: Yes Hx Back Pain: Yes Hx Falls: No Hx Osteoarthritis: Yes Hx Unsteady Gait: Yes - GASTROINTESTINAL Hx Gastrointestinal Disorders: Yes (FECAL IMPACTION,CONSTIPATION,POOR APPETITE, GASTRITIS) Hx Diverticulitis: Yes - GENITOURINARY/GYNECOLOGICAL Hx Genitourinary Disorders: No - PSYCHIATRIC Hx Psychophysiologic Disorder: Yes Hx Anxiety: Yes Hx Bipolar Disorder: No Hx Depression: No Hx Emotional Abuse: No Hx Hallucinations: No Hx Panic Symptoms: No Hx Post Traumatic Stress Disorder: No Hx Psychosis: No Hx Physical Abuse: No Hx Schizophrenia: No Hx Sexual Abuse: No Hx Substance Use: No - SURGICAL HISTORY Hx Appendectomy: Yes Hx Cardiac Catheterization: Yes Hx Coronary Stent: Yes Other/Comment: port placement dialysis cath, R arm graft ( not functioning0 - ANESTHESIA Hx Anesthesia: Yes Hx Anesthesia Reactions: No Hx Malignant Hyperthermia: No Meds Allergies/Adverse Reactions: Allergies Allergy/AdvReac Type Severity Reaction Status Date / Time ciprofloxacin Allergy RASH Verified 09/24/17 14:10 hydralazine Allergy RASH Verified 09/24/17 14:10 vancomycin Allergy SHORTNESS Verified 09/24/17 14:[address] dye Allergy RASH Uncoded 09/24/17 14:10 - Medications Medications: Current Medications Famotidine (Pepcid) 20 mg PO BID ZANA Hydromorphone HCl (Dilaudid) 1 mg IVP Q4H PRN PRN Reason: Pain, severe (8-10) Nicardipine HCl (Cardene Iv Premix) 20 mg in 200 mls @ 50 mls/hr IV .Q4H PRN; Protocol; 5 MG/HR PRN Reason: TITRATE PER MD ORDER Last Admin: 09/24/17 16:54 Dose: 10 mg/hr, 100 mls/hr Levetiracetam (Keppra 500mg Ivpb) 500 mg in 100 mls @ 460 mls/hr IV DAILY ZANA Ondansetron HCl (Zofran Inj) 4 mg IVP Q6H PRN PRN Reason: Nausea/Vomiting Physical Exam - Constitutional Appears: Well - Head Exam Head Exam: ATRAUMATIC, NORMAL INSPECTION, NORMOCEPHALIC - Eye Exam Eye Exam: EOMI, Normal appearance, PERRL - ENT Exam ENT Exam: Mucous Membranes Moist, Normal Exam - Neck Exam Neck exam: Positive for: Normal Inspection - Respiratory Exam Respiratory Exam: Clear to Auscultation Bilateral, NORMAL BREATHING PATTERN - Cardiovascular Exam Cardiovascular Exam: REGULAR RHYTHM, +S1, +S2 - Rectal Exam Rectal Exam: Deferred - Extremities Exam Extremities exam: Positive for: normal inspection - Back Exam Back exam: NORMAL INSPECTION - Neurological Exam Neurological exam: Abnormal Gait, Alert, CN II-XII Intact, Oriented x3 Additional comments: RLE has a chronic ulcer and is 3/5 in strength proximally and distally. LLE is 4/5 in strength proximally and distally. Both upper extremities are full in strength. Sensation is intact to LT/P. Gait could not be assessed. Reflexes were brisk on the right side as compared with the left. GCS=15 Results - Vital Signs Recent Vital Signs: Last Vital Signs Temp 99.9 F H 09/24/17 14:45 Pulse 103 H 09/24/17 16:54 Resp 21 09/24/17 16:25 BP 154/78 H 09/24/17 16:54 Pulse Ox 100 09/24/17 16:25 - Labs Result Diagrams: 09/24/17 14:15 09/24/17 14:15 Assessment & Plan (1) Intracranial hemorrhage Assessment and Plan: Likely due to extreme hypertension. I recommend the followin. ICU admission and Q 1 hour neuro-checks 2. Hold anti-platelet agents until further notice. 3. No anticoagulation until further notice. SCD for DVT 4. Cardene drip to maintain SBP 130-160 mm Hg. 5. PT/OT eval and treat 6. Repeat CT head in the AM, or STAT if there is any change in the neuro exam or mental status 7. Case management consult. Thank you for this consultation. Status: Acute Priority: High
[2017-09-24] MEDS: POLYETHYLENE GLYCOL 3350 17 GM/Dose PACKET PO SCH (18:49)
[2017-09-24 21:22] LABS: TROPONIN I 0.12 ng/mL
[2017-09-25] MEDS: HYDROmorphone 1 mg/ml ISec IVP PRN ×6 (00:47→23:30)
[2017-09-25] MEDS: Nicardipine 20 MG/200 ML 20 MG/200 ML BAG IV PRN ×2 (04:38→10:12)
[2017-09-25] MEDS: Levothyroxine 75 MCG TAB PO SCH (06:38)
--- NOTE | 2017-09-25 08:35 | CP.PCM.PN ---
<Pauline Babcock - Last Filed: 09/25/17 14:11> Subjective - Date & Time of Evaluation Date of Evaluation: 09/25/17 Time of Evaluation: 08:35 - Subjective Subjective: ICU Progress Note for Emily Akins PGY2 Patient seen and examined at bedside. As per nursing staff, there were no acute overnight events. Patient reports feeling better today. She denies chest pain, shortness of breath, nausea/vomiting/diarrhea, numbness/tingling, fever/chills, vision changes or headache. Objective - Vital Signs/Intake and Output Vital Signs (last 24 hours): Temp Pulse Resp BP Pulse Ox 98.5 F 79 19 151/71 H 100 09/24/17 22:37 09/25/17 06:00 09/24/17 22:37 09/25/17 07:41 09/24/17 19:00 Intake and Output: 09/25/17 09/25/17 06:59 18:59 Intake Total 850 970 Output Total 100 Balance 850 870 - Medications Medications: Current Medications Docusate Sodium (Colace) 100 mg PO TID [facility] Last Admin: 09/24/17 18:47 Dose: 100 mg Famotidine (Pepcid) 20 mg PO BID [facility] Hydromorphone HCl (Dilaudid) 1 mg IVP Q4H PRN PRN Reason: Pain, severe (8-10) Last Admin: 09/25/17 06:37 Dose: 1 mg Nicardipine HCl (Cardene Iv Premix) 20 mg in 200 mls @ 50 mls/hr IV .Q4H PRN; Protocol; 5 MG/HR PRN Reason: TITRATE PER MD ORDER Last Titration: 09/25/17 07:40 Dose: 4 mg/hr, 40 mls/hr Levetiracetam (Keppra) 250 mg PO BID [facility] Last Admin: 09/24/17 18:47 Dose: 250 mg Levothyroxine Sodium (Synthroid) 75 mcg PO 0600 [facility] Last Admin: 09/25/17 06:38 Dose: 75 mcg Ondansetron HCl (Zofran Inj) 4 mg IVP Q6H PRN PRN Reason: Nausea/Vomiting Polyethylene Glycol (Miralax) 17 gm PO BID [facility] Last Admin: 09/24/17 18:49 Dose: 17 gm - Labs Labs: PT 10.7 SECONDS (9.4-12.5) 09/24/17 14:15 INR 0.93 (0.93-1.08) 09/24/17 14:15 APTT 26.4 Seconds (25.1-36.5) 09/24/17 14:15 - Constitutional Appears: No Acute Distress - Head Exam Head Exam: ATRAUMATIC, NORMAL INSPECTION, NORMOCEPHALIC - Eye Exam Eye Exam: Normal appearance, PERRL Pupil Exam: NORMAL ACCOMODATION, PERRL Additional comments: R gaze preference - ENT Exam ENT Exam: Mucous Membranes Moist - Neck Exam Neck Exam: Full ROM - Respiratory Exam Respiratory Exam: Clear to Ausculation Bilateral, NORMAL BREATHING PATTERN. absent: Rales, Rhonchi, Wheezes - Cardiovascular Exam Cardiovascular Exam: REGULAR RHYTHM, +S1, +S2. absent: Gallop, Rubs, Murmur - GI/Abdominal Exam GI & Abdominal Exam: Distended, Soft, Normal Bowel Sounds. absent: Tenderness, Mass, Rebound - Extremities Exam Additional comments: Chronic R leg ulcer - Neurological Exam Neurological Exam: Alert, Awake, CN II-XII Intact, Oriented x3 Neuro motor strength exam: Left Upper Extremity: 4, Right Upper Extremity: 4, Left Lower Extremity: 4, Right Lower Extremity: 4 Additional comments: R gaze preference - Psychiatric Exam Psychiatric exam: Normal Affect, Normal Mood - Skin Skin Exam: Dry, Warm Assessment and Plan - Assessment and Plan (Free Text) Assessment: This is a 57yo Female with PMH of CHF, COPD on home O2 (4L), HTN, ESRD on HD (T/ T/), CAD s/p stent, hypothyroidism, falls, chronic ischemic R leg ulcer who is admitted for R Intracerebral hemorrhage most likely secondary to uncontrolled HTN. Plan: Neuro: Pt has R intracerebral hemorrhage A&O x 3- no focal neuro deficits noted Repeat head CT was stable Neuro consulted- recommended BP control Neurosurgery said no surgical intervention at this time Continue Keppra 250 BID Seizure precaution Maintain normothermia Pain control- pt chronic opioid user CV: HTN Emergency with Hx of uncontrolled HTN Will wean off of Cardene drip Maintain SBP 140-160s Continue Cardene drip Troponin 0.11 to 0.12 in setting of ESRD Pulm: Hx of COPD on 4L O2 at home Continue Supplemental O2 and maintain SpO2>92% Continue Aspiration precaution GI: Pt passed bedside swallow eval on HHD/renal diet Zofran prn nausea Chronic constipation secondary to opioid use Continue Miralax and Colace Heme: Hgb stable Continue to hold anticoagulants Nephro: ESRD on HD- pt missed HD yesterday Nephro consulted No cook needed- pt does not make urine ID: Afebrile No sign of infection at this time Endo: Maintain euglycemia (140s-180s) GI ppx: Pepcid DVT ppx: SCDs Case seen, discussed and reviewed with attending. Emiyl Babcock PGY2 <Jose Erwin B - Last Filed: 09/25/17 18:19> Objective - Vital Signs/Intake and Output Vital Signs (last 24 hours): Temp Pulse Resp BP Pulse Ox 98.5 F 74 20 173/75 H 100 09/24/17 22:37 09/25/17 16:35 09/25/17 16:35 09/25/17 16:35 09/25/17 16:35 Intake and Output: 09/25/17 09/25/17 06:59 18:59 Intake Total 850 1150 Output Total 100 Balance 850 1050 - Medications Medications: Current Medications Clonidine HCl (Catapres) 0.2 mg PO TID [facility] Docusate Sodium (Colace) 100 mg PO TID [facility] Last Admin: 09/25/17 14:48 Dose: 100 mg Famotidine (Pepcid) 20 mg PO DAILY [facility] Hydralazine HCl (Apresoline) 10 mg IVP Q6 PRN PRN Reason: Systolic Blood Pressure Hydromorphone HCl (Dilaudid) 1 mg IVP Q4H PRN PRN Reason: Pain, severe (8-10) Last Admin: 09/25/17 16:21 Dose: 1 mg Nicardipine HCl (Cardene Iv Premix) 20 mg in 200 mls @ 50 mls/hr IV .Q4H PRN; Protocol; 5 MG/HR PRN Reason: TITRATE PER MD ORDER Last Titration: 09/25/17 14:50 Dose: 0 mg/hr, 0 mls/hr Labetalol HCl (Trandate) 300 mg PO TID [facility] Levetiracetam (Keppra) 250 mg PO BID [facility] Last Admin: 09/25/17 11:44 Dose: 250 mg Levothyroxine Sodium (Synthroid) 75 mcg PO 0600 [facility] Last Admin: 09/25/17 06:38 Dose: 75 mcg Nifedipine (Procardia Xl) 90 mg PO DAILY [facility] Last Admin: 09/25/17 14:57 Dose: 90 mg Ondansetron HCl (Zofran Inj) 4 mg IVP Q6H PRN PRN Reason: Nausea/Vomiting Polyethylene Glycol (Miralax) 17 gm PO BID [facility] Last Admin: 09/25/17 10:00 Dose: 17 gm - Labs Labs: 09/25/17 09:30 09/25/17 09:30 PT 10.7 SECONDS (9.4-12.5) 09/24/17 14:15 INR 0.93 (0.93-1.08) 09/24/17 14:15 APTT 26.4 Seconds (25.1-36.5) 09/24/17 14:15 Attending/Attestation - Attestation I have personally seen and examined this patient.: Yes I have fully participated in the care of the patient.: Yes I have reviewed all pertinent clinical information, including history, physical exam and plan: Yes Notes (Text): 09/25/17 18:14 57 yo female with ICH. Off of cardene drip, maintains BP below 160, renal consult is appreciated and clonidine, labetolol started, hydralazine is on PRN. Patient is alert and orietned, passed swallow eval and toelrated dinner well. Neuro deficit mild and not progressing, CTH stable. maintain euvolemia, euglycemia and normothermia ccm time 40 min
[2017-09-25 08:54] LABS: PH,URINE 7.5 (4.7-8.0); URINE BILIRUBIN NEGATIVE (NEGATIVE); URINE BLOOD SMALL (NEGATIVE); URINE GLUCOSE (UA) 100 mg/dL (NEGATIVE); URINE LEUKOCYTE ESTERASE MODERATE Leu/uL (NEGATIVE); URINE NITRATE NEGATIVE (NEGATIVE); URINE PROTEIN 100 mg/dL (<30 mg/dL); URINE UROBILINOGEN 0.2 E.U./dL (<1 E.U./dL)
[2017-09-25 08:59] LABS: URINE APPEARANCE TURBID (CLEAR); URINE COLOR YELLOW (YELLOW)
[2017-09-25 09:04] LABS: URINE RBC 0 - 2 /hpf (0-2); URINE WBC 25 - 30 /hpf (0-6)
[2017-09-25 09:19] LABS: BARBITURATES, UR NEGATIVE (NEGATIVE); BENZODIAZEPINES, UR NEGATIVE (NEGATIVE); PHENCYCLIDINE, UR NEGATIVE (NEGATIVE)
[2017-09-25 09:25] LABS: OPIATES, UR POSITIVE (NEGATIVE)
[2017-09-25 09:48] LABS: BASO # 0.01 K/mm3 (0.0-2.0); BASO % 0.1 % (0.0-3.0); EOS # 0.1 (0.0-0.7); EOS % 1.1 % (1.5-5.0); GRAN # 6.31 (1.4-6.5); GRAN % 76.3 % (50.0-68.0); HEMOGLOBIN 11.4 g/dL (12.0-16.0); LYMPH # 1.5 (1.2-3.4); LYMPH % 18.2 % (22.0-35.0); MEAN CELL VOLUME 92.2 fl (80.0-105.0); MEAN CORPUSCULAR HEMOGLOBIN 27.9 pg (25.0-35.0); MEAN CORPUSCULAR HGB CONC 30.2 g/dl (31.0-37.0); MEAN PLATELET VOLUME 10.1 fl (7.0-11.0); MONO # 0.4 (0.1-0.6); MONO % 4.3 % (1.0-6.0); RBC 4.09 10^6/uL (3.5-6.1); WHITE BLOOD COUNT 8.3 10^3/ul (4.5-11.0)
--- NOTE | 2017-09-25 09:49 | CT ---
PROCEDURE: CT HEAD WITHOUT CONTRAST. HISTORY: intracranial hemmorrahge COMPARISON: 09/24/2017 TECHNIQUE: Axial computed tomography images were obtained through the head/brain without intravenous contrast. Radiation dose: Total exam DLP = 833 mGy-cm. This CT exam was performed using one or more of the following dose reduction techniques: Automated exposure control, adjustment of the mA and/or kV according to patient size, and/or use of iterative reconstruction technique. FINDINGS: HEMORRHAGE: There is an 8 x 13 mm acute hemorrhage in the head of the caudate nucleus on the right. This is unchanged. BRAIN: No mass effect or edema. Severe chronic microvascular disease is seen throughout the white matter bilaterally. VENTRICLES: Unremarkable. No hydrocephalus. CALVARIUM: Unremarkable. PARANASAL SINUSES: Unremarkable as visualized. No significant inflammatory changes. MASTOID AIR CELLS: Unremarkable as visualized. No inflammatory changes. OTHER FINDINGS: None. IMPRESSION: Stable appearance of acute 8 x 13 mm hemorrhage in the head of the caudate on the right. Severe microvascular disease.
[2017-09-25] MEDS: POLYETHYLENE GLYCOL 3350 17 GM/Dose PACKET PO SCH ×2 (10:00→18:25)
[2017-09-25] MEDS ORDERED: levETIRAcetam 500mg IVPB 500 MG/100 ML BAG IV SCH (10:00)
[2017-09-25 10:07] LABS: ALB/GLOB RATIO 1.7 (1.1-1.8); ALBUMIN 3.7 g/dL (3.0-4.8); CALCIUM 9.2 mg/dL (8.4-10.5)
--- NOTE | 2017-09-25 10:08 | CARD ---
APPROVED REPORT EKG Measurement Heart [id number] FL [id number] <Conclusion> Normal sinus rhythm Possible Left atrial enlargement IVCD Left ventricular hypertrophy with repolarization abnormality Baseline artifact
--- NOTE | 2017-09-25 10:09 | CARD ---
APPROVED REPORT EKG Measurement Heart [id number] CT [id number] <Conclusion> Normal sinus rhythm Left atrial enlargement Left ventricular hypertrophy with QRS widening and repolarization abnormality IVCD Baseline artifact present No change from earlier ECG
[2017-09-25 10:48] LABS: TROPONIN I 0.33 ng/mL
--- NOTE | 2017-09-25 12:03 | CP.PCM.CON ---
<Whit Angeles - Last Filed: 09/25/17 12:12> History of Present Illness - History of Present Illness History of Present Illness: 57 year old female with PMHx end-stage renal disease on dialysis, hypertension, CHF, peptic ulcer disease, chronic anemia seen at bedside with Dr. Forte for right arterial leg ulceration. Patient is AAO x 3 and NAD, resting comfortably in bed at time of visit. Pt complaints of pain in the right leg just above where the wound lies. Denies any further pedal complaints. Denies N/V/F/C/CP/SOB /D/posterior calf pain Review of Systems - Review of Systems All systems: reviewed and no additional remarkable complaints except (per HPI) Past Patient History - Infectious Disease Hx of Infectious Diseases: None - Tetanus Immunizations Tetanus Immunization: Unknown - Past Social History Smoking Status: Former Smoker - CARDIAC Hx Cardiac Disorders: Yes Hx Angina: Yes Hx Cardia Arrhythmia: Yes Hx Congestive Heart Failure: Yes Hx Hypercholesterolemia: Yes Hx Hypertension: Yes Hx Peripheral Edema: (none at present time) Hx Peripheral Vascular Disease: Yes (has pain when ambulating & numbness) Other/Comment: VT x 2, DVT, r arm fistula/r chest udall cath, pad, cardiomyopathy - PULMONARY Hx Respiratory Disorders: Yes Hx Asthma: Yes Hx Chronic Obstructive Pulmonary Disease (COPD): Yes Hx Emphysema: Yes Hx Pneumonia: Yes Hx Sleep Apnea: Yes - NEUROLOGICAL Hx Neurological Disorder: Yes (numbness ble when ambulating) Hx Migraine: Yes Other/Comment: cold extremities - HEENT Hx HEENT Problems: Yes (hard of hearing) Hx Blind: No Hx Cataracts: No Hx Deafness: No Hx Difficulty Chewing: No Hx Epistaxis: No Hx Glaucoma: No Hx Macular Degeneration: No Other/Comment: tinnitus, - RENAL Date of Last Dialysis Treatment: 09/24/17 - ENDOCRINE/METABOLIC Hx Endocrine Disorders: Yes Hx Hypothyroidism: Yes - HEMATOLOGICAL/ONCOLOGICAL Hx Blood Disorders: Yes Hx Anemia: Yes (b lood transfusions) - INTEGUMENTARY Hx Dermatological Problems: No (non healing sugical wound to right ankle) Other/Comment: r ankle wound cared for by dr parada at wound center, pt does not want dressing removed for assesment, wound 1.5cm x 0.7cm stage 1 wound to right buttocks red and open to air, multiple skin discolorations to ble - MUSCULOSKELETAL/RHEUMATOLOGICAL Hx Falls: No - GASTROINTESTINAL Hx Gastrointestinal Disorders: Yes (FECAL IMPACTION,CONSTIPATION,POOR APPETITE, GASTRITIS) Hx Diverticulitis: Yes Other/Comment: poor appetite weight loss, diverticulosis, bloating - GENITOURINARY/GYNECOLOGICAL Hx Genitourinary Disorders: Yes (voids very little) - PSYCHIATRIC Hx Substance Use: No - SURGICAL HISTORY Hx Appendectomy: Yes Hx Cardiac Catheterization: Yes Hx Coronary Stent: Yes Other/Comment: port placement dialysis cath, R arm graft ( not functioning), c section, tonsillectomy - ANESTHESIA Hx Anesthesia: Yes Hx Anesthesia Reactions: No Hx Malignant Hyperthermia: No Meds Allergies/Adverse Reactions: Allergies Allergy/AdvReac Type Severity Reaction Status Date / Time ciprofloxacin Allergy RASH Verified 09/24/17 14:10 hydralazine Allergy RASH Verified 09/24/17 14:10 vancomycin Allergy SHORTNESS Verified 09/24/17 14:[address] dye Allergy RASH Uncoded 09/24/17 14:10 - Medications Medications: Current Medications Docusate Sodium (Colace) 100 mg PO TID [facility] Last Admin: 09/25/17 11:43 Dose: 100 mg Famotidine (Pepcid) 20 mg PO BID [facility] Last Admin: 09/25/17 11:43 Dose: 20 mg Hydromorphone HCl (Dilaudid) 1 mg IVP Q4H PRN PRN Reason: Pain, severe (8-10) Last Admin: 09/25/17 11:42 Dose: 1 mg Nicardipine HCl (Cardene Iv Premix) 20 mg in 200 mls @ 50 mls/hr IV .Q4H PRN; Protocol; 5 MG/HR PRN Reason: TITRATE PER MD ORDER Last Admin: 09/25/17 10:12 Dose: 6 mg/hr, 60 mls/hr Levetiracetam (Keppra) 250 mg PO BID [facility] Last Admin: 09/25/17 11:44 Dose: 250 mg Levothyroxine Sodium (Synthroid) 75 mcg PO 0600 [facility] Last Admin: 09/25/17 06:38 Dose: 75 mcg Ondansetron HCl (Zofran Inj) 4 mg IVP Q6H PRN PRN Reason: Nausea/Vomiting Polyethylene Glycol (Miralax) 17 gm PO BID [facility] Last Admin: 09/24/17 18:49 Dose: 17 gm Physical Exam - Constitutional Appears: Well, Non-toxic, No Acute Distress - Extremities Exam Additional comments: RLE focused exam: Dressings noted to be C/D/I to right leg Vasc: DP/PT pulses palpable 2/4 B/L. Skin temperature warm to warm from proximal to distal. CFT < 3 seconds to all digits B/L. 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 Base is fibrogranular with no evidence of periwound erythema. Evidence of re-epithelialization is noted to wound edges. No malodor, no purulence, no tunneling, tracking, undermining, probe to bone or fluctuance. Ulceration is noted to have 2 satellite lesions, one proximal and one posterior to large wound; periwound erythema noted. No maceration, xerosis, abnormal pigmentation or abnormal growths noted to b/l LE Ortho: Severe tenderness to palpation to right leg ulcerations, improved with administration of pain medicine prior to dressing change - Neurological Exam Neurological exam: Alert, Oriented x3 - Psychiatric Exam Psychiatric exam: Normal Affect, Normal Mood Results - Vital Signs Recent Vital Signs: Last Vital Signs Temp 98.5 F 09/24/17 22:37 Pulse 79 09/25/17 06:00 Resp 19 09/24/17 22:37 BP 151/71 H 09/25/17 07:41 Pulse Ox 100 09/24/17 19:00 - Labs Result Diagrams: 09/25/17 09:30 09/25/17 09:30 Labs: Laboratory Results - last 24 hr 09/24/17 09/24/17 09/25/17 19:28 22:25 08:44 WBC RBC Hgb Hct MCV MCH MCHC RDW Plt Count MPV Gran % Lymph % (Auto) [place] % (Auto) Eos % (Auto) Baso % (Auto) Gran # Lymph # [place] # Eos # Baso # Sodium Potassium Chloride Carbon Dioxide Anion Gap BUN Creatinine Est GFR ( Amer) Est GFR (Non-Af Amer) POC Glucose (mg/dL) 113 H Random Glucose Calcium Total Bilirubin AST ALT Alkaline Phosphatase Lactate Dehydrogenase 555 Total Creatine Kinase 45 Troponin I 0.12 Total Protein Albumin Globulin Albumin/Globulin Ratio Urine Color Yellow Urine Appearance Turbid Urine pH 7.5 Ur Specific [place] 1.010 Urine Protein 100 H Urine Glucose (UA) 100 H Urine Ketones Negative Urine Blood Small H Urine Nitrate Negative Urine Bilirubin Negative Urine Urobilinogen 0.2 Ur Leukocyte Esterase Moderate H Urine RBC 0 - 2 Urine WBC 25 - 30 Ur Epithelial Cells 10 - 12 Urine Opiates Screen Urine Methadone Screen Ur Barbiturates Screen Ur Phencyclidine Scrn Ur Amphetamines Screen U Benzodiazepines Scrn U Oth Cocaine Metabols U Cannabinoids Screen 09/25/17 09/25/17 09/25/17 08:44 09:30 09:30 WBC 8.3 D RBC 4.09 Hgb 11.4 L Hct 37.7 MCV 92.2 MCH 27.9 MCHC 30.2 L RDW 17.0 H Plt Count 179 MPV 10.1 Gran % 76.3 H Lymph % (Auto) 18.2 L [place] % (Auto) 4.3 Eos % (Auto) 1.1 L Baso % (Auto) 0.1 Gran # 6.31 Lymph # 1.5 [place] # 0.4 Eos # 0.1 Baso # 0.01 Sodium 133 Potassium 5.1 H Chloride 94 L Carbon Dioxide 24 Anion Gap 19 BUN 76 H Creatinine 7.1 H Est GFR ( Amer) 7 Est GFR (Non-Af Amer) 6 POC Glucose (mg/dL) Random Glucose 107 Calcium 9.2 Total Bilirubin 0.6 AST 35 ALT 38 Alkaline Phosphatase 100 Lactate Dehydrogenase 498 Total Creatine Kinase 34 L Troponin I 0.33 H* D Total Protein 5.9 Albumin 3.7 Globulin 2.2 Albumin/Globulin Ratio 1.7 Urine Color Urine Appearance Urine pH Ur Specific [place] Urine Protein Urine Glucose (UA) Urine Ketones Urine Blood Urine Nitrate Urine Bilirubin Urine Urobilinogen Ur Leukocyte Esterase Urine RBC Urine WBC Ur Epithelial Cells Urine Opiates Screen Positive H Urine Methadone Screen Negative Ur Barbiturates Screen Negative Ur Phencyclidine Scrn Negative Ur Amphetamines Screen Negative U Benzodiazepines Scrn Negative U Oth Cocaine Metabols Negative U Cannabinoids Screen Negative Assessment & Plan - Assessment and Plan (Free Text) Assessment: 57 year old female seen at bedside for right leg ulceration, 11 days s/p right leg wound debridement with application of Puraply graft Plan: Patient seen and evaluated at bedside with attending Dr. Forte Labs and vitals reviewed- afebrile, WBC 8.3 Pt administered pain medication prior to dressing change due to significant pain Patient's right leg ulcer cleansed with saline soaked gauze and dressed with Hydrogel and Optifoam Wound is improving in size and appearance at this time Pt was discharged from hospital 09/22/17, during which stay she received abx per ID Podiatry will continue to follow while patient in house <Dougie Forte - Last Filed: 09/25/17 18:01> Meds - Medications Medications: Current Medications Clonidine HCl (Catapres) 0.2 mg PO TID [facility] Docusate Sodium (Colace) 100 mg PO TID [facility] Last Admin: 09/25/17 14:48 Dose: 100 mg Famotidine (Pepcid) 20 mg PO DAILY [facility] Hydromorphone HCl (Dilaudid) 1 mg IVP Q4H PRN PRN Reason: Pain, severe (8-10) Last Admin: 09/25/17 16:21 Dose: 1 mg Nicardipine HCl (Cardene Iv Premix) 20 mg in 200 mls @ 50 mls/hr IV .Q4H PRN; Protocol; 5 MG/HR PRN Reason: TITRATE PER MD ORDER Last Titration: 09/25/17 14:50 Dose: 0 mg/hr, 0 mls/hr Labetalol HCl (Trandate) 300 mg PO TID [facility] Levetiracetam (Keppra) 250 mg PO BID [facility] Last Admin: 09/25/17 11:44 Dose: 250 mg Levothyroxine Sodium (Synthroid) 75 mcg PO 0600 [facility] Last Admin: 09/25/17 06:38 Dose: 75 mcg Nifedipine (Procardia Xl) 90 mg PO DAILY [facility] Last Admin: 09/25/17 14:57 Dose: 90 mg Ondansetron HCl (Zofran Inj) 4 mg IVP Q6H PRN PRN Reason: Nausea/Vomiting Polyethylene Glycol (Miralax) 17 gm PO BID [facility] Last Admin: 09/25/17 10:00 Dose: 17 gm Results - Vital Signs Recent Vital Signs: Last Vital Signs Temp 98.5 F 09/24/17 22:37 Pulse 74 09/25/17 16:35 Resp 20 09/25/17 16:35 BP 173/75 H 09/25/17 16:35 Pulse Ox 100 09/25/17 16:35 - Labs Result Diagrams: 09/25/17 09:30 09/25/17 09:30 Labs: Laboratory Results - last 24 hr 09/24/17 09/24/17 09/25/17 19:28 22:25 08:44 WBC RBC Hgb Hct MCV MCH MCHC RDW Plt Count MPV Gran % Lymph % (Auto) [place] % (Auto) Eos % (Auto) Baso % (Auto) Gran # Lymph # [place] # Eos # Baso # Sodium Potassium Chloride Carbon Dioxide Anion Gap BUN Creatinine Est GFR ( Amer) Est GFR (Non-Af Amer) POC Glucose (mg/dL) 113 H Random Glucose Calcium Total Bilirubin AST ALT Alkaline Phosphatase Lactate Dehydrogenase 555 Total Creatine Kinase 45 Troponin I 0.12 Total Protein Albumin Globulin Albumin/Globulin Ratio Urine Color Yellow Urine Appearance Turbid Urine pH 7.5 Ur Specific [place] 1.010 Urine Protein 100 H Urine Glucose (UA) 100 H Urine Ketones Negative Urine Blood Small H Urine Nitrate Negative Urine Bilirubin Negative Urine Urobilinogen 0.2 Ur Leukocyte Esterase Moderate H Urine RBC 0 - 2 Urine WBC 25 - 30 Ur Epithelial Cells 10 - 12 Urine Opiates Screen Urine Methadone Screen Ur Barbiturates Screen Ur Phencyclidine Scrn Ur Amphetamines Screen U Benzodiazepines Scrn U Oth Cocaine Metabols U Cannabinoids Screen 09/25/17 09/25/17 09/25/17 08:44 09:30 09:30 WBC 8.3 D RBC 4.09 Hgb 11.4 L Hct 37.7 MCV 92.2 MCH 27.9 MCHC 30.2 L RDW 17.0 H Plt Count 179 MPV 10.1 Gran % 76.3 H Lymph % (Auto) 18.2 L [place] % (Auto) 4.3 Eos % (Auto) 1.1 L Baso % (Auto) 0.1 Gran # 6.31 Lymph # 1.5 [place] # 0.4 Eos # 0.1 Baso # 0.01 Sodium 133 Potassium 5.1 H Chloride 94 L Carbon Dioxide 24 Anion Gap 19 BUN 76 H Creatinine 7.1 H Est GFR ( Amer) 7 Est GFR (Non-Af Amer) 6 POC Glucose (mg/dL) Random Glucose 107 Calcium 9.2 Total Bilirubin 0.6 AST 35 ALT 38 Alkaline Phosphatase 100 Lactate Dehydrogenase 498 Total Creatine Kinase 34 L Troponin I 0.33 H* D Total Protein 5.9 Albumin 3.7 Globulin 2.2 Albumin/Globulin Ratio 1.7 Urine Color Urine Appearance Urine pH Ur Specific [place] Urine Protein Urine Glucose (UA) Urine Ketones Urine Blood Urine Nitrate Urine Bilirubin Urine Urobilinogen Ur Leukocyte Esterase Urine RBC Urine WBC Ur Epithelial Cells Urine Opiates Screen Positive H Urine Methadone Screen Negative Ur Barbiturates Screen Negative Ur Phencyclidine Scrn Negative Ur Amphetamines Screen Negative U Benzodiazepines Scrn Negative U Oth Cocaine Metabols Negative U Cannabinoids Screen Negative 09/25/17 16:51 WBC RBC Hgb Hct MCV MCH MCHC RDW Plt Count MPV Gran % Lymph % (Auto) [place] % (Auto) Eos % (Auto) Baso % (Auto) Gran # Lymph # [place] # Eos # Baso # Sodium Potassium Chloride Carbon Dioxide Anion Gap BUN Creatinine Est GFR ( Amer) Est GFR (Non-Af Amer) POC Glucose (mg/dL) 84 Random Glucose Calcium Total Bilirubin AST ALT Alkaline Phosphatase Lactate Dehydrogenase Total Creatine Kinase Troponin I Total Protein Albumin Globulin Albumin/Globulin Ratio Urine Color Urine Appearance Urine pH Ur Specific [place] Urine Protein Urine Glucose (UA) Urine Ketones Urine Blood Urine Nitrate Urine Bilirubin Urine Urobilinogen Ur Leukocyte Esterase Urine RBC Urine WBC Ur Epithelial Cells Urine Opiates Screen Urine Methadone Screen Ur Barbiturates Screen Ur Phencyclidine Scrn Ur Amphetamines Screen U Benzodiazepines Scrn U Oth Cocaine Metabols U Cannabinoids Screen Attending/Attestation - Attestation I have personally seen and examined this patient.: Yes I have fully participated in the care of the patient.: Yes I have reviewed all pertinent clinical information: Yes
[2017-09-25] MEDS: NIFEdipine 90 mg ER Tab PO SCH (14:57)
--- NOTE | 2017-09-25 18:56 | PN ---
DATE: 09/25/2017 SUBJECTIVE: The patient is seen in the ICU. She is lying in bed. She appears comfortable. She seems to be sleeping comfortably. She is receiving dialysis. She remains on the Cardene drip at 5 mg per hour. Currently, her blood pressure is 150/84. PHYSICAL EXAMINATION: GENERAL: Thinly built, middle-aged lady, lying in bed. VITAL SIGNS: Blood pressure 151/71, heart rate 79, respiratory rate 18-19, temperature 98.5, T-max 99.9. HEENT: Normocephalic, atraumatic, positive pallor, pupils reactive to light. NECK: Supple, no JVD, no thyromegaly, no cervical lymphadenopathy. LUNGS: Bilateral equal air entry, bilateral equal expansion. CARDIAC: S1, S2, regular rate and rhythm, positive murmur, no rub. ABDOMEN: Soft, distended, diffuse tenderness, bowel sounds present. EXTREMITIES: No lower extremity edema, edema of the left upper extremity, dressing of the bilateral lower extremities. INTAKE AND OUTPUT: 1020/100. LABORATORY DATA: WBC 8.3, hemoglobin 11, hematocrit 37.7, platelets 179. Sodium 133, potassium 5.1, chloride 94, CO2 of 24, BUN 76, creatinine 7.1, glucose 107, calcium 9.2, AST 35, ALT 38, troponin 0.33, albumin 3.7. Urinalysis yellow, turbid, pH 7.5, specific gravity 1.010, protein 100, glucose 100, blood small, leukocyte esterase moderate. Urine toxicology, positive for opiates. IMAGING: Repeat CT of the head was 8 x 13 mm acute hemorrhage in the right caudate nucleus, unchanged. CURRENT MEDICATIONS: Cardene at 6 mg per hour, Colace, Dilaudid, Keppra, MiraLax, Pepcid, Synthroid, Zofran. ASSESSMENT: 1. Acute intracerebral bleed. Right caudate hemorrhage, stable. 2. Hypertensive bleed. 3. Hypertensive emergency. 4. Acute cerebrovascular accident, hemorrhagic, neurological deficit improving. 5. End-stage renal disease. 6. Coronary artery disease, history of percutaneous transluminal coronary angioplasty and stent, now with elevated troponins ? non-ST elevation myocardial infarction. 5. Chronic obstructive pulmonary disease. 6. Pulmonary hypertension. 7. Anemia of chronic disease. PLAN: 1. Restart outpatient oral antihypertensives, including lisinopril 40 mg daily, Trandate 300 t.i.d., Procardia XL 90 mg daily. 2. Taper of Cardene drip. 3. Stable dialysis today, no heparin during dialysis. 4. Neuro followup. 5. Case discussed with Dr. Byrd. Case discussed with ICU staff. Case discussed with dialysis staff. More than 35 minutes spent in the care of this critically ill patient. Tamanna Smith MD
--- NOTE | 2017-09-25 22:09 | CON ---
DATE: 09/24/2017 REASON FOR CONSULTATION: Severe hypertension, intracranial hemorrhage, and hemorrhagic stroke. HISTORY OF PRESENT ILLNESS: A 57-year-old lady known to me from multiple evaluations, outpatient hemodialysis. The patient was preparing to come to dialysis. She was trying to get up from the chair to get into the transportation. She slid out of the chair and fell and hit her head. Subsequently ambulance was called. On the way to the hospital in the ambulance, the patient had some tonic-clonic movements. Was reported to have a seizure. She was brought to the Emergency Room instead. In the Emergency Room, her initial blood pressure was 260/100. She was also found to have a facial droop. She also was found to have a gaze neglect. CT scan of her head was done in the Emergency Room and she was found to have acute hemorrhage in the right caudate measuring 13 mm x 8 mm. Also found to have diffuse white matter changes extending to the basal ganglia and internal capsule, worse on the right. She was started on a Cardene drip in the Emergency Room. She was also given morphine for chest tightness. At the time of evaluation, the patient was seen sitting in bed in the code room. She is sitting up. She is awake. She is alert. She is complaining of chest tightness. She is complaining of a headache. She is complaining of pain on the right side of her head. She is oriented x3. She is moving all four extremities. PHYSICAL EXAMINATION: GENERAL: Middle-aged lady sitting in bed in moderate distress. VITAL SIGNS: Blood pressure 151/76, heart rate 105, respiratory rate 18, temperature 98.5. HEENT: Normocephalic, atraumatic, pupils equal, reactive to light. NECK: Supple, no JVD, no thyromegaly. LUNGS: Bilateral equal air entry, bilateral equal expansion, no rales, no rhonchi. CARDIAC: S1 and S2, regular rate and rhythm, no murmur, no rub. ABDOMEN: Distended, soft, nontender, bowel sounds present. EXTREMITIES: No lower extremity edema, dressing of the right lower extremity, peripheral pulses very faint. LABORATORY DATA: WBC 10, hemoglobin 13, hematocrit 43, platelets 213. Sodium 133, potassium 4.7, chloride 91, CO2 22, BUN 63, creatinine 6.4, glucose 112, calcium 10.0, albumin 4.2, AST 34, ALT 31. CT of the head acute hemorrhage in the right caudate measuring 13 x 8 mm, diffuse white matter changes extending to basal ganglia and internal capsule, worse in the right, may represent hypoxia or metabolic demyelination. MRI recommended. ASSESSMENT AND PLAN: A 57-year-old lady with history of severe hypertension, hypertensive heart disease, congestive heart failure, pulmonary hypertension, chronic obstructive pulmonary disease,end-stage renal disease, coronary artery disease, percutaneous transluminal coronary angioplasty and stent, peripheral vascular disease, is now found to have hypertensive emergency, right caudate intracranial hemorrhage. Acute hemorrhagic stroke. 1. Acute intracranial hemorrhage, likely secondary to severe hypertension. 2. Hypertensive emergency. 3. Chest pain likely secondary to severe hypertension. 4. End-stage renal disease. 5. Underlying coronary artery disease, hypertensive heart disease, congestive heart failure, pulmonary hypertension. 6. History of chronic obstructive pulmonary disease. 7. Peripheral vascular disease. PLAN: 1. ICU admission. 2. Neurosurgical followup. 3. Neuro checks as per neurology recommendations. 4. Continue Cardene drip, goal blood pressure 130-160 systolic. 5. No indication for dialysis right now. 6. Hold dialysis today. 7. No heparin on dialysis tomorrow. 8. No anticoagulation as per Neurology. 9. Close followup. More than 35 and spent in the care of this critically ill patient. Long time spent with the patient and updating them of the situation. Tamanna Smith MD
[2017-09-26] MEDS: Levothyroxine 75 MCG TAB PO SCH (05:32)
[2017-09-26 06:02] LABS: BASO # 0.01 K/mm3 (0.0-2.0); BASO % 0.2 % (0.0-3.0); EOS # 0.1 (0.0-0.7); EOS % 1.6 % (1.5-5.0); GRAN # 4.92 (1.4-6.5); HEMOGLOBIN 10.8 g/dL (12.0-16.0); LYMPH # 1.1 (1.2-3.4); LYMPH % 16.5 % (22.0-35.0); MEAN CELL VOLUME 94.1 fl (80.0-105.0); MEAN CORPUSCULAR HEMOGLOBIN 27.9 pg (25.0-35.0); MEAN CORPUSCULAR HGB CONC 29.7 g/dl (31.0-37.0); MEAN PLATELET VOLUME 10.3 fl (7.0-11.0); MONO # 0.3 (0.1-0.6); MONO % 4.7 % (1.0-6.0); RBC 3.87 10^6/uL (3.5-6.1); RED CELL DISTRIBUTION WIDTH 17.2 % (11.5-14.5); WHITE BLOOD COUNT 6.4 10^3/ul (4.5-11.0)
[2017-09-26 06:34] LABS: ALB/GLOB RATIO 1.5 (1.1-1.8); ALBUMIN 3.4 g/dL (3.0-4.8); CALCIUM 9.4 mg/dL (8.4-10.5)
[2017-09-26] MEDS: HYDROmorphone 1 mg/ml ISec IVP PRN ×3 (06:35→18:23)
[2017-09-26] MEDS: NIFEdipine 90 mg ER Tab PO SCH (09:20)
[2017-09-26] MEDS: POLYETHYLENE GLYCOL 3350 17 GM/Dose PACKET PO SCH ×2 (09:21→18:23)
--- NOTE | 2017-09-26 09:54 | PN ---
DATE: SUBJECTIVE: A 57-year-old female seen in CCU for continued evaluation and management of an extremely painful right arterial lower leg ulceration. The patient is resting comfortably at this time and denies any fever, chills, nausea or shortness of breath. PHYSICAL EXAMINATION: VITAL SIGNS: Revealed temperature of 97.2, pulse rate of 82, blood pressure of 138/58, respiratory rate of 20. EXTREMITIES: Weakly palpable pedal pulses noted bilaterally. Absent pedal hair growth noted bilaterally. Protective sensation intact using 5.07 g monofilament wire testing bilaterally. There is a full-thickness ulceration located on the medial aspect of the right lower leg that measures approximately 5 cm x 3 cm x 0.1 cm. Base of the ulceration is a mixture of primarily granular with fibrotic tissue. There is no evidence of purulence. The wound does not probe to tendon or bone. No signs of abscess formation. The ulceration is noted to have 2 smaller satellite lesions, one proximal and one posterior to the main wound. No signs of localized cellulitis or ascending or descending cellulitis. LABORATORY FINDINGS: Reveal a white count of 6.4 down from 10.4 on 09/24/2017, hemoglobin of 10.8, hematocrit of 36.4, platelet count of 152. MEDICATIONS: All medications are noted in the MAR. ASSESSMENT: A 57-year-old female seen at bedside for arterial right leg ulceration status post right leg ulcer debridement with application of poly PuraPly graft. PLAN: The patient was seen and evaluated. The wound was cleansed with normal sterile saline. We will apply small amount of hydrogel to keep the be wound hydrated with Optifoam. We will continue with antibiotics as per Infectious Disease. The patient will be seen daily while in-house. Dougie Forte DPM
--- NOTE | 2017-09-26 19:55 | PN ---
DATE: 09/26/2017 SUBJECTIVE: The patient is seen lying in bed in the ICU. She is awake. She is alert. She is comfortable. She reports she is feeling much better. She denies any chest tightness. She denies any palpitations. She does have cough. She does have shortness of breath. PHYSICAL EXAMINATION GENERAL: Middle-aged lady lying in bed in the ICU. VITAL SIGNS: Blood pressure 154/111, heart rate 80, respiratory rate 20, temperature 97.2. HEENT: Normocephalic, atraumatic. NECK: Supple, no JVD. LUNGS: Bilateral equal entry, bilateral equal expansion. CARDIAC: S1 and S2, regular rate and rhythm, positive murmur. ABDOMEN: Soft, nondistended, nontender, bowel sounds present. EXTREMITIES: No lower extremity edema. INTAKE AND OUTPUT: 650/3100. LABORATORY DATA: WBC 6.4, hemoglobin 10.8, hematocrit 36, platelets 152. Sodium 135, potassium 4.5, chloride 99, CO2 25, BUN 35, creatinine 4.5, glucose 89, calcium 9.4, AST 28, ALT 38, albumin 3.4. CURRENT MEDICATIONS: Catapres 0.2 t.i.d., Colace 100 t.i.d., Dilaudid, Keppra, MiraLax, Pepcid, Procardia XL 90, Synthroid 75, Trandate 300 t.i.d., and Zofran. ASSESSMENT AND PLAN: 1. Hypertensive intracerebral bleed. 2. Severe hypertension. 3. Resolved weakness/facial droop. 4. End-stage renal disease. 5. Chronic obstructive pulmonary disease. 6. Coronary artery disease. 7. Peripheral vascular disease. PLAN: 1. The patient was dialyzed yesterday. She will be dialyzed again today. Today is her regular day. 2. Continue current antihypertensive regimen. 3. The patient is off Cardene drip. 4. Monitor neurological status. Tamanna Smith MD
[2017-09-26] MEDS: Insulin Reg-LOW-Coverage SC SCH (22:00)
[2017-09-27] MEDS: HYDROmorphone 1 mg/ml ISec IVP PRN ×6 (00:45→21:08)
--- NOTE | 2017-09-27 04:52 | HP ---
DATE OF EVALUATION: 09/26/2017 HISTORY OF PRESENT ILLNESS: Ms. Thakur is a 57-year-old female, brought to the ED with questionable seizure. She had closed eyes per son, right gaze deviation. She has a history of uncontrolled hypertension, end-stage renal disease, on hemodialysis. CT head showed intracranial bleed in right quadrant lobe, 13 mm, and blood pressure elevated on arrival to ED at 260/100. She was transferred to ICU for nicardipine drip. Repeat CAT scan showed no progression of hemorrhage. She is alert and oriented now. She has end-stage renal disease, on hemodialysis. PAST MEDICAL HISTORY: End-stage renal disease, on hemodialysis; peripheral vascular disease; congestive cardiac failure; uncontrolled hypertension; and hypothyroidism. PAST SURGICAL HISTORY: Placement of AV fistula for dialysis. PERSONAL HISTORY: Former smoker. No history of alcohol abuse. FAMILY HISTORY: Noncontributory. ALLERGIES: HYDRALAZINE, VANCOMYCIN, CAT SCAN DYE, AND CIPROFLOXACIN. HOME MEDICATIONS: Reviewed. LABORATORY DATA: White count 10.4, hemoglobin 13.1, hematocrit 43.1, and platelet count 131. Sodium 133, potassium 4.7, BUN 63, creatinine 6.4, A1c 4.9, alkaline phosphatase 129. Troponin not elevated, 0.11. PHYSICAL EXAMINATION: GENERAL: Comfortable in bed, in no acute distress. VITAL SIGNS: Heart rate is per minute, blood pressure 150/69, heart rate per minute, respiratory rate 14 per minute, and pulse ox 99% on room air. HEENT: Pallor positive. NECK: No lymphadenopathy. CHEST: Air entry present and equal bilaterally. No added sounds. CARDIOVASCULAR: S1 and S2 normal. No murmur. No gallop. ABDOMEN: Soft and nontender. No hepatosplenomegaly. EXTREMITIES: No edema. SKIN: No petechiae and no rash. ASSESSMENT: 1. Intracranial hemorrhage, right quadrant lobe, 13 mm. 2. End-stage renal disease, on hemodialysis. 3. Uncontrolled hypertension. 4. Hypothyroidism. 5. Chronic anemia. PLAN: She is admitted to ICU, band splicer consultation requested. Stroke code called in the ER, Dr. Richards evaluated the patient. Serial CAT scan of the head did not show progression of bleeding. She is currently on Cardene drip for uncontrolled hypertension. Nephrology consultation, Dr. Smith, was requested. Catapres 0.2 mg p.o. t.i.d., Pepcid daily, Dilaudid 1 mg q.4 hours for headache, labetalol 300 mg 3 times a day, Keppra 250 b.i.d., Synthroid 75 mcg daily, nifedipine XL 90 mg daily, Zofran 4 mg q.6 hours p.r.n. Jaymie Byrd MD
[2017-09-27 07:14] LABS: BASO # 0.01 K/mm3 (0.0-2.0); BASO % 0.2 % (0.0-3.0); EOS # 0.1 (0.0-0.7); EOS % 2.1 % (1.5-5.0); GRAN # 4.51 (1.4-6.5); HEMOGLOBIN 10.2 g/dL (12.0-16.0); LYMPH # 1.2 (1.2-3.4); LYMPH % 19.6 % (22.0-35.0); MEAN CELL VOLUME 95.9 fl (80.0-105.0); MEAN CORPUSCULAR HEMOGLOBIN 27.8 pg (25.0-35.0); MEAN PLATELET VOLUME 11.7 fl (7.0-11.0); MONO # 0.4 (0.1-0.6); MONO % 6.1 % (1.0-6.0); RBC 3.67 10^6/uL (3.5-6.1); RED CELL DISTRIBUTION WIDTH 17.3 % (11.5-14.5); WHITE BLOOD COUNT 6.3 10^3/ul (4.5-11.0)
[2017-09-27 07:21] LABS: ALBUMIN 3.2 g/dL (3.0-4.8); CALCIUM 9.6 mg/dL (8.4-10.5)
[2017-09-27 07:47] LABS: ALB/GLOB RATIO 1.4 (1.1-1.8)
--- NOTE | 2017-09-27 07:50 | CP.PCM.PN ---
Subjective - Date & Time of Evaluation Date of Evaluation: 09/27/17 Time of Evaluation: 07:47 - Subjective Subjective: Ms. Thakur was seen and examined at the bedside in ICU. She is alert, oriented in all spheres, but unable to recall yesterday's events. She is able to answer questions and follows simple commands. She denies any headache, dizziness, lightheadedness, blurred vision, nausea, or vomiting. There was no untoward events overnight. Objective - Vital Signs/Intake and Output Vital Signs (last 24 hours): Temp Pulse Resp BP Pulse Ox 97.2 F L 73 17 170/80 H 99 09/26/17 06:00 09/27/17 07:38 09/27/17 01:48 09/27/17 07:38 09/26/17 06:00 - Medications Medications: Current Medications Clonidine HCl (Catapres) 0.2 mg PO TID [facility] Last Admin: 09/26/17 13:31 Dose: 0.2 mg Docusate Sodium (Colace) 100 mg PO TID [facility] Last Admin: 09/26/17 18:24 Dose: 100 mg Famotidine (Pepcid) 20 mg PO DAILY [facility] Last Admin: 09/26/17 09:21 Dose: 20 mg Hydralazine HCl (Apresoline) 10 mg IVP Q6 PRN PRN Reason: SBP >160 Last Admin: 09/27/17 07:38 Dose: 10 mg Hydromorphone HCl (Dilaudid) 1 mg IVP Q4H PRN PRN Reason: Pain, severe (8-10) Last Admin: 09/27/17 04:00 Dose: 1 mg Insulin Human Regular (Humulin R Low) 0 units SC [facility] PRN Reason: Protocol Last Admin: 09/26/17 22:00 Dose: Not Given Labetalol HCl (Trandate) 300 mg PO TID [facility] Last Admin: 09/26/17 13:31 Dose: 300 mg Levetiracetam (Keppra) 250 mg PO BID [facility] Last Admin: 09/26/17 18:24 Dose: 250 mg Levothyroxine Sodium (Synthroid) 75 mcg PO 0600 [facility] Last Admin: 09/26/17 05:32 Dose: 75 mcg Nifedipine (Procardia Xl) 90 mg PO DAILY [facility] Last Admin: 09/26/17 09:20 Dose: 90 mg Ondansetron HCl (Zofran Inj) 4 mg IVP Q6H PRN PRN Reason: Nausea/Vomiting Last Admin: 09/26/17 08:29 Dose: 4 mg Polyethylene Glycol (Miralax) 17 gm PO BID [facility] Last Admin: 09/26/17 18:23 Dose: 17 gm - Labs Labs: 09/26/17 05:45 09/27/17 06:45 PT 10.7 SECONDS (9.4-12.5) 09/24/17 14:15 INR 0.93 (0.93-1.08) 09/24/17 14:15 APTT 26.4 Seconds (25.1-36.5) 09/24/17 14:15 - Constitutional Appears: No Acute Distress - Head Exam Head Exam: NORMAL INSPECTION - Neurological Exam Neurological Exam: Alert, Awake Neuro motor strength exam: Left Upper Extremity: 5, Right Upper Extremity: 5, Left Lower Extremity: 5, Right Lower Extremity: 5 Additional comments: She is able to answer questions approrpiately and follow simple commands.Sensation remains intact. Assessment and Plan (1) Intracranial hemorrhage Assessment & Plan: Case discussed with Dr. Dyer, continue all current medical regimen. Recommends repeat CT of the head. Status: Acute
[2017-09-27] MEDS: Insulin Reg-LOW-Coverage SC SCH ×4 (08:34→22:00)
[2017-09-27] MEDS: Levothyroxine 75 MCG TAB PO SCH (09:05)
[2017-09-27] MEDS: NIFEdipine 90 mg ER Tab PO SCH (09:05)
[2017-09-27] MEDS: POLYETHYLENE GLYCOL 3350 17 GM/Dose PACKET PO SCH ×2 (09:05→17:23)
--- NOTE | 2017-09-27 10:36 | CARD ---
APPROVED REPORT EKG Measurement Heart [id number] OK [id number] <Conclusion> Normal sinus rhythm Biatrial enlargement Left ventricular hypertrophy with repolarization abnormality Prolonged QTc IVCD No change
--- NOTE | 2017-09-27 10:57 | CT ---
PROCEDURE: CT HEAD WITHOUT CONTRAST. HISTORY: hemorrhagic stroke COMPARISON: Noncontrast head CT performed 09/25/17 TECHNIQUE: Axial computed tomography images were obtained through the head/brain without intravenous contrast. Radiation dose: Total exam DLP = 699.80 mGy-cm. This CT exam was performed using one or more of the following dose reduction techniques: Automated exposure control, adjustment of the mA and/or kV according to patient size, and/or use of iterative reconstruction technique. FINDINGS: HEMORRHAGE: 12 x 7 mm right hemorrhage re-identified at the level of the right caudate, previously approximately 12 x 6 mm when remeasured in a similar position. BRAIN: No mass effect or edema. Intracranial atherosclerosis. Severe chronic appearing periventricular and subcortical white matter hypodensities, which are nonspecific, but often seen with chronic microvascular ischemic disease. VENTRICLES: No hydrocephalus. CALVARIUM: Unremarkable. PARANASAL SINUSES: Unremarkable as visualized. No significant inflammatory changes. MASTOID AIR CELLS: Unremarkable as visualized. No inflammatory changes. OTHER FINDINGS: None. IMPRESSION: 12 x 7 mm right hemorrhage re-identified at the level of the right caudate, previously approximately 12 x 6 mm when remeasured in a similar position. Severe chronic appearing periventricular and subcortical white matter hypodensities, which are nonspecific, but often seen with chronic microvascular ischemic disease.
--- NOTE | 2017-09-27 11:13 | CP.PCM.PN ---
<Sabrina Soriano - Last Filed: 09/27/17 11:09> Subjective - Date & Time of Evaluation Date of Evaluation: 09/27/17 Time of Evaluation: 11:09 - Subjective Subjective: Podiatry Progress note for Dr. Blantno 57 year old female wwas seen at bedside regarding right arterial leg ulceration. Patient is AAO x 3 and NAD, resting comfortably in bed at time of visit. She admits to pain at the area of ulceration. She states that the ulcer has been getting better. Currently denies any n/v/f/c/sob/cp. Objective - Vital Signs/Intake and Output Vital Signs (last 24 hours): Temp Pulse Resp BP Pulse Ox 98.1 F 74 31 H 118/43 L 98 09/27/17 08:00 09/27/17 10:04 09/27/17 10:00 09/27/17 10:00 09/27/17 10:00 Intake and Output: 09/27/17 09/27/17 06:59 18:59 Intake Total 120 Output Total 25 Balance 95 - Medications Medications: Current Medications Clonidine HCl (Catapres) 0.2 mg PO TID [facility] Last Admin: 09/27/17 09:03 Dose: 0.2 mg Docusate Sodium (Colace) 100 mg PO TID [facility] Last Admin: 09/27/17 09:03 Dose: 100 mg Famotidine (Pepcid) 20 mg PO DAILY [facility] Last Admin: 09/27/17 09:06 Dose: Not Given Hydralazine HCl (Apresoline) 10 mg IVP Q6 PRN PRN Reason: SBP >160 Last Admin: 09/27/17 07:38 Dose: 10 mg Hydromorphone HCl (Dilaudid) 1 mg IVP Q4H PRN PRN Reason: Pain, severe (8-10) Last Admin: 09/27/17 08:30 Dose: 1 mg Insulin Human Regular (Humulin R Low) 0 units SC [facility] PRN Reason: Protocol Last Admin: 09/27/17 08:34 Dose: Not Given Labetalol HCl (Trandate) 300 mg PO TID [facility] Last Admin: 09/27/17 09:04 Dose: 300 mg Levetiracetam (Keppra) 250 mg PO BID [facility] Last Admin: 09/27/17 09:05 Dose: 250 mg Levothyroxine Sodium (Synthroid) 75 mcg PO 0600 [facility] Last Admin: 09/27/17 09:05 Dose: 75 mcg Nifedipine (Procardia Xl) 90 mg PO DAILY [facility] Last Admin: 09/27/17 09:05 Dose: 90 mg Ondansetron HCl (Zofran Inj) 4 mg IVP Q6H PRN PRN Reason: Nausea/Vomiting Last Admin: 09/27/17 08:04 Dose: 4 mg Polyethylene Glycol (Miralax) 17 gm PO BID [facility] Last Admin: 09/27/17 09:05 Dose: Not Given - Labs Labs: 09/27/17 06:45 09/27/17 06:45 PT 10.7 SECONDS (9.4-12.5) 09/24/17 14:15 INR 0.93 (0.93-1.08) 09/24/17 14:15 APTT 26.4 Seconds (25.1-36.5) 09/24/17 14:15 - Constitutional Appears: Well, Non-toxic, No Acute Distress - Extremities Exam Additional comments: Right lower extremity focused exam" Vasc: DP and PT pulses palpable 2/4 B/L. Skin temperature warm to warm from proximal to distal. CFT < 3 seconds to all digits B/L. 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 Base is fibrogranular with no evidence of periwound erythema. Evidence of re-epithelialization is noted to wound edges. No malodor, no purulence, no tunneling, tracking, undermining, probe to bone or fluctuance. Ulceration is noted to have 2 satellite lesions, one proximal and one posterior to large wound; periwound erythema noted. No maceration, xerosis, abnormal pigmentation or abnormal growths noted to b/l LE Ortho: Severe tenderness to palpation to right leg ulcerations, improved with administration of pain medicine prior to dressing change - Neurological Exam Neurological Exam: Alert, Awake, Oriented x3 - Psychiatric Exam Psychiatric exam: Normal Affect, Normal Mood Assessment and Plan - Assessment and Plan (Free Text) Assessment: 57 year old female seen at bedside for right leg ulceration, 13 days s/p right leg wound debridement with application of Puraply graft Plan: Patient seen and evaluated at bedside Discussed with attending Dr. Blanton Labs and vitals reviewed- afebrile, WBC 6.3 Patient's right leg ulcer cleansed with saline soaked gauze and dressed with Hydrogel and Optifoam Podiatry will continue to follow while patient in house <Wendy Blanton - Last Filed: 10/01/17 13:18> Objective - Vital Signs/Intake and Output Vital Signs (last 24 hours): Temp Pulse Resp BP Pulse Ox 97.9 F 83 18 142/63 98 09/30/17 06:00 09/30/17 17:04 09/30/17 06:00 09/30/17 06:00 09/30/17 06:00 - Labs Labs: 09/29/17 10:53 09/29/17 10:53 PT 10.7 SECONDS (9.4-12.5) 09/24/17 14:15 INR 0.93 (0.93-1.08) 09/24/17 14:15 APTT 26.4 Seconds (25.1-36.5) 09/24/17 14:15 Attending/Attestation - Attestation I have personally seen and examined this patient.: Yes I have fully participated in the care of the patient.: Yes I have reviewed all pertinent clinical information, including history, physical exam and plan: Yes
--- NOTE | 2017-09-28 00:09 | PN ---
DATE: 09/27/2017 SUBJECTIVE: The patient has no complaints of any chest pain. She states she still gets short of breath. She has no headaches or dizziness. PHYSICAL EXAMINATION: VITAL SIGNS: Temperature is 98, pulse is 82, blood pressure is 118/68, and respirations are 20. GENERAL: The patient is lying in bed, flat, comfortable. HEENT: No oral lesion. Anicteric sclerae. Moist mucosa. NECK: No JVD, adenopathy, or thyromegaly. CARDIOVASCULAR: S1 and S2, regular. No murmurs, rubs, or gallops. LUNGS: Clear to auscultation bilaterally. No wheeze, rales, or rhonchi. ABDOMEN: Bowel sounds are positive, soft, nontender and nondistended. EXTREMITIES: No cyanosis, clubbing or edema. LABORATORY DATA: White count of 6.3 and hemoglobin of 10.2. Creatinine is 3.7. ASSESSMENT: 1. Acute hemorrhage in the right 13 x 8 mm. 2. End-stage renal disease, on hemodialysis. 3. Hypertension. 4. Hypothyroidism. 5. Right leg ulceration, status post debridement. 6. Congestive heart failure secondary to systolic dysfunction. 7. Pulmonary hypertension. 8. Chronic obstructive pulmonary disease. 9. Peripheral arterial disease. 10. Anemia. PLAN: The patient is currently in the ICU. She has been followed by Dr. Dyer. The patient is being seen by Dr. Smith for dialysis. The patient is on Colace for constipation. Her blood pressure is better controlled with her blood pressure medications. She is on nifedipine and labetalol and the patient is on Xopenex for her breathing. She is on Synthroid for hypothyroidism. Jose Richards MD
[2017-09-28] MEDS: HYDROmorphone 1 mg/ml ISec IVP PRN ×4 (01:00→16:35)
--- NOTE | 2017-09-28 03:15 | PN ---
DATE: 09/27/2017 SUBJECTIVE: The patient is seen lying in bed. The patient is awake. She is alert. She is comfortable. She complains of shortness of breath. She complains of headache and chest tightness. PHYSICAL EXAMINATION: GENERAL: A middle-aged lady lying in bed. VITAL SIGNS: Blood pressure 118/68, heart rate 69, respiratory rate 20, temperature 98. HEENT: Normocephalic, atraumatic. NECK: Supple. No JVD. LUNGS: Bilateral equal air entry, no rales. CARDIAC: S1, S2. Regular rate and rhythm. Positive murmur, no rub. ABDOMEN: Obese, soft, nontender, bowel sounds present. EXTREMITIES: No lower extremity edema. Dressing of the lower extremities. INTAKE AND OUTPUT: Not charted. LABORATORY DATA: WBC 6, hemoglobin 10, hematocrit 35, platelets 159,000. Sodium 138, potassium 4.2, chloride 101, CO2 25, BUN 28, creatinine 3.7, glucose 78, calcium 9.6, total bili 0.6, AST 31, troponin 0.2, albumin 3.2. CURRENT MEDICATIONS: Hydralazine 10 mg q. 6 p.r.n., Catapres 0.2 three times a day, Colace, Dilaudid, Keppra, MiraLax, Pepcid, Procardia 90, Synthroid, Trandate 300 three times a day, Xopenex, Zofran. ASSESSMENT: 1. Intracerebral bleed. 2. Hypertensive bleed. 3. Severe hypertension. 4. Hemorrhagic cerebrovascular accident. 5. End-stage renal disease. 6. Non-ST elevation myocardial infarction. 7. Anemia. PLAN: 1. Continue current antihypertensive regimen. 2. Monitor neurological status. 3. . 4. Dialysis again tomorrow. Tamanna Smith MD
--- NOTE | 2017-09-28 07:10 | CP.PCM.PN ---
Subjective - Date & Time of Evaluation Date of Evaluation: 09/28/17 Time of Evaluation: 07:05 - Subjective Subjective: Ms. Thakur was seen and examined at the bedside. She is alert, oriented in all spheres. She denies any headache, blurred vision, dizziness,nausea, or vomiting. She is able follow simple commands. Repeat CT of the head yesterday showed 12x 7 mm right hemorrhage [id number] a the level of the right caudate from 12x 6 mm. There is a severe chronic periventricular and subcortical white matter hypodensities.which are non specific often seen with chronic micro vascular ischemic diseases.There was no untoward events overnight. Objective - Vital Signs/Intake and Output Vital Signs (last 24 hours): Temp Pulse Resp BP Pulse Ox 98 F 76 18 128/68 100 09/27/17 15:57 09/28/17 03:00 09/28/17 03:00 09/28/17 03:00 09/28/17 03:00 - Medications Medications: Current Medications Clonidine HCl (Catapres) 0.2 mg PO TID [facility] Last Admin: 09/27/17 17:23 Dose: 0.2 mg Docusate Sodium (Colace) 100 mg PO TID [facility] Last Admin: 09/27/17 17:22 Dose: 100 mg Famotidine (Pepcid) 20 mg PO DAILY [facility] Last Admin: 09/27/17 09:06 Dose: Not Given Hydralazine HCl (Apresoline) 10 mg IVP Q6 PRN PRN Reason: SBP >160 Last Admin: 09/27/17 07:38 Dose: 10 mg Hydromorphone HCl (Dilaudid) 1 mg IVP Q4H PRN PRN Reason: Pain, severe (8-10) Last Admin: 09/28/17 01:00 Dose: 1 mg Insulin Human Regular (Humulin R Low) 0 units SC [facility] PRN Reason: Protocol Last Admin: 09/27/17 22:00 Dose: Not Given Labetalol HCl (Trandate) 300 mg PO TID [facility] Last Admin: 09/27/17 17:24 Dose: Not Given Levalbuterol HCl (Xopenex) 0.63 mg [facility] [id number] PRN PRN Reason: Shortness of Breath Levetiracetam (Keppra) 250 mg PO BID [facility] Last Admin: 09/27/17 17:26 Dose: 250 mg Levothyroxine Sodium (Synthroid) 75 mcg PO 0600 [facility] Last Admin: 09/27/17 09:05 Dose: 75 mcg Nifedipine (Procardia Xl) 90 mg PO DAILY [facility] Last Admin: 09/27/17 09:05 Dose: 90 mg Ondansetron HCl (Zofran Inj) 4 mg IVP Q6H PRN PRN Reason: Nausea/Vomiting Last Admin: 09/27/17 08:04 Dose: 4 mg Polyethylene Glycol (Miralax) 17 gm PO BID [facility] Last Admin: 09/27/17 17:23 Dose: Not Given - Labs Labs: 09/27/17 06:45 09/27/17 06:45 PT 10.7 SECONDS (9.4-12.5) 09/24/17 14:15 INR 0.93 (0.93-1.08) 09/24/17 14:15 APTT 26.4 Seconds (25.1-36.5) 09/24/17 14:15 - Constitutional Appears: No Acute Distress - Head Exam Head Exam: NORMAL INSPECTION - Neurological Exam Neurological Exam: Alert, Awake, Oriented x3 Neuro motor strength exam: Left Upper Extremity: 5, Right Upper Extremity: 5, Left Lower Extremity: 5, Right Lower Extremity: 5 Additional comments: Neurological improved from previous examination. Assessment and Plan (1) Intracranial hemorrhage Assessment & Plan: Case discussed with Dr. Dyer, continue all current medical, physical, and occupational therapies. Recommend BP control. May transfer to telemetry. Status: Acute
[2017-09-28] MEDS: Levothyroxine 75 MCG TAB PO SCH (07:19)
[2017-09-28] MEDS: Levalbuterol 0.63 MG/3 ML Inhal Soln UD IH PRN ×2 (07:30→14:02)
[2017-09-28 08:00] LABS: BASO # 0.01 K/mm3 (0.0-2.0); BASO % 0.2 % (0.0-3.0); EOS # 0.1 (0.0-0.7); GRAN # 2.82 (1.4-6.5); GRAN % 63.6 % (50.0-68.0); HEMOGLOBIN 10.8 g/dL (12.0-16.0); LYMPH # 1.2 (1.2-3.4); MEAN CELL VOLUME 96.6 fl (80.0-105.0); MEAN CORPUSCULAR HEMOGLOBIN 28.3 pg (25.0-35.0); MEAN CORPUSCULAR HGB CONC 29.3 g/dl (31.0-37.0); MEAN PLATELET VOLUME 9.9 fl (7.0-11.0); MONO # 0.3 (0.1-0.6); MONO % 7.2 % (1.0-6.0); RBC 3.81 10^6/uL (3.5-6.1); RED CELL DISTRIBUTION WIDTH 17.1 % (11.5-14.5); WHITE BLOOD COUNT 4.4 10^3/ul (4.5-11.0)
[2017-09-28 08:10] LABS: ALB/GLOB RATIO 1.4 (1.1-1.8); ALBUMIN 3.4 g/dL (3.0-4.8); CALCIUM 9.6 mg/dL (8.4-10.5)
[2017-09-28] MEDS: Insulin Reg-LOW-Coverage SC SCH ×2 (08:15→15:07)
--- NOTE | 2017-09-28 08:43 | PQF AMI ---
This form is a permanent part of the medical record Dr. Byrd, On 09/25/17 patient had a slight elevation in troponin of 0.33, 0.20 (on admission troponin 0.11). There is no documentation of chest pain. Please specify if this finding is clinically significant, was NSTEMI ruled out? Clarification of your documentation is requested to better reflect the severity of illness and intensity of treatment of your patient. Indicators present [] Diagnosis of MN without specification of time frame (within 28 days of admission of greater than 28 days prior to admission) [] Diagnosis of subsequent MN (time frame of previous MN within 28 days of admission or greater than 28 days of admission) [] Diagnosis of MN w/o specified site [] EKG positive for changes (i.e.; ST elevation, non-ST elevation, Q-wave changes, etc.) [] Elevated Troponins [] Elevated Cardiac Enzymes [] Cardiac consult documentation of [] Chest pain/ACS/Unstable Angina [] Echo findings of [] Other: [] Location in the medical record that reflects the above clinical findings:[] Other Treatment Provided:[] PHYSICIAN'S RESPONSE Based on your medical judgment of the clinical indicators outlined above, are you treating this patient for a known or suspected: [ ] NSTEMI [ ] STEMI Site: [ ] [ ] ACS/Unstable Angina [ ] Angina :[ ] [ ] Other, please indicate [ ]___ If Unable to Determine, please check the box, sign and date Present On Admission (POA) Indicator: [ ] Present at the time of admission [ ] Not present at the time of admission [ x] Clinically Undetermined pt. with renal failure * If you have any questions please call:[ ] * Thank you, [ ]Edgar Hernandez [facility], #[id number] sustainment logistics analyst In responding to this query, please exercise your independent professional judgment. The fact that a question is asked does not imply that any particular answer is desired or expected. Thank you for your clarification on this documentation. MAURICE
[2017-09-28] MEDS: POLYETHYLENE GLYCOL 3350 17 GM/Dose PACKET PO SCH ×2 (09:03→18:21)
[2017-09-28] MEDS: NIFEdipine 90 mg ER Tab PO SCH (09:06)
--- NOTE | 2017-09-28 15:20 | CP.PCM.PN ---
Subjective - Date & Time of Evaluation Date of Evaluation: 09/28/17 Time of Evaluation: 15:00 - Subjective Subjective: Pt seen for f/u of a right leg ulcer - pt states that since she has had the graft applied the wound is no longer painful; she is seen sitting in the chair alert and oriented in the CCU Objective - Vital Signs/Intake and Output Vital Signs (last 24 hours): Temp Pulse Resp BP Pulse Ox 98 F 71 20 130/53 L 97 09/27/17 15:57 09/28/17 15:10 09/28/17 14:00 09/28/17 15:10 09/28/17 14:00 Intake and Output: 09/28/17 09/28/17 06:59 18:59 Intake Total 120 Output Total 0 Balance 120 - Medications Medications: Current Medications Clonidine HCl (Catapres) 0.2 mg PO TID [facility] Last Admin: 09/28/17 15:10 Dose: 0.2 mg Docusate Sodium (Colace) 100 mg PO TID [facility] Last Admin: 09/28/17 15:11 Dose: 100 mg Famotidine (Pepcid) 20 mg PO DAILY [facility] Last Admin: 09/28/17 09:03 Dose: 20 mg Hydralazine HCl (Apresoline) 10 mg IVP Q6 PRN PRN Reason: SBP >160 Last Admin: 09/28/17 08:29 Dose: 10 mg Hydromorphone HCl (Dilaudid) 1 mg IVP Q4H PRN PRN Reason: Pain, severe (8-10) Last Admin: 09/28/17 12:22 Dose: 1 mg Insulin Human Regular (Humulin R Low) 0 units SC [facility] PRN Reason: Protocol Last Admin: 09/28/17 15:07 Dose: Not Given Labetalol HCl (Trandate) 300 mg PO TID [facility] Last Admin: 09/28/17 15:10 Dose: 300 mg Levalbuterol HCl (Xopenex) 0.63 mg I[facility] [id number] PRN PRN Reason: Shortness of Breath Last Admin: 09/28/17 14:02 Dose: 0.63 mg Levetiracetam (Keppra) 250 mg PO BID [facility] Last Admin: 09/28/17 09:03 Dose: 250 mg Levothyroxine Sodium (Synthroid) 75 mcg PO 0600 [facility] Last Admin: 09/28/17 07:19 Dose: 75 mcg Nifedipine (Procardia Xl) 90 mg PO DAILY [facility] Last Admin: 09/28/17 09:06 Dose: 90 mg Ondansetron HCl (Zofran Inj) 4 mg IVP Q6H PRN PRN Reason: Nausea/Vomiting Last Admin: 09/28/17 08:59 Dose: 4 mg Polyethylene Glycol (Miralax) 17 gm PO BID [facility] Last Admin: 09/28/17 09:03 Dose: 17 gm - Labs Labs: 09/28/17 07:30 09/28/17 07:30 PT 10.7 SECONDS (9.4-12.5) 09/24/17 14:15 INR 0.93 (0.93-1.08) 09/24/17 14:15 APTT 26.4 Seconds (25.1-36.5) 09/24/17 14:15 - Constitutional Appears: Well, Non-toxic, No Acute Distress - Extremities Exam Extremities Exam: Normal Capillary Refill, Pedal Edema. absent: Calf Tenderness , Joint Swelling, Tenderness Additional comments: Non-palapble pedal pules bilateral - TG WNL - CFT 3 sec x 10 neurological sensation in tact bilateral wound on anterior medial francis is fully granular with no signs of infection - tissue is healthy - no sinus or undermining noted no pain with dressing removal which is much improved since first meeting the patient where we had to applied lidocaine and give dilaudid top do the dressing change Assessment and Plan - Assessment and Plan (Free Text) Assessment: Non pressure ulcer of right calf with fat layer exposed ESRD on HD with calcium imbalance calciphalaxis etiology of wound Plan: cont local care when pt is stable we will place another graft in the area
--- NOTE | 2017-09-28 15:54 | PN ---
DATE: SUBJECTIVE: The patient is a 57-year-old seen and examined, lying in bed, seems to be comfortable. Complaining of heart burn. No headache. No nausea or vomiting. Complaining of no focal weakness or numbness. Complaining of generalized weakness. PHYSICAL EXAMINATION: VITAL SIGNS: She is afebrile, pulse 76, respirations 19, and blood pressure 157/73. LUNGS: Bilateral fair airflow. No rhonchi or crackles. HEART: S1 and S2, audible. ABDOMEN: Soft, nontender. No rebound. No guarding. NEUROLOGIC: She is awake, alert, oriented, able to move all extremities. Had generalized weakness. EXTREMITIES: She has chronic right leg ulcer that has been dressed. LABORATORY DATA: WBC 4.4, hemoglobin 10.8, hematocrit 36.8, and platelet of 114. Chemistry; sodium 139, potassium 4.5, chloride 101, CO2 24, BUN 43, creatinine 5.7, blood sugar of 84. positive. ASSESSMENT: 1. Uncontrolled hypertension. 2. End-stage renal disease on hemodialysis. 3. Small intracranial bleed secondary to hypertension. 4. Non-ST elevation myocardial infarction. 5. Chronic anemia. 6. Peptic ulcer disease. PLAN: The patient's medication reviewed. Seems to be appropriate. Continue current medication. To improve her blood pressure control, we will start her on Protonix, out of bed chair, and right leg wound is being taken care by Dr. Blanton. Brittany Coffman MD
--- NOTE | 2017-09-28 20:43 | PN ---
DATE: 09/28/2017 SUBJECTIVE: The patient is seen lying in bed. She is awake. She is arousable. She is lethargic. PHYSICAL EXAMINATION GENERAL: Middle-aged lady lying in bed. VITAL SIGNS: Blood pressure 130/53, heart rate 71, respiratory rate 18, temperature 98. HEENT: Normocephalic, atraumatic. NECK: Supple, no JVD. LUNGS: Bilateral equal air entry, no rales. CARDIAC: S1 and S2, regular rate and rhythm, no murmur, no rub. ABDOMEN: Soft, nondistended, nontender, bowel sounds present. EXTREMITIES: No lower extremity edema, dressing of the lower extremities. INTAKE AND OUTPUT: Not charted. LABORATORY DATA: WBC 4.4, hemoglobin 10.8, hematocrit 37, platelets of 114. Sodium 139, potassium 4.5, chloride 101, CO2 of 24, BUN 43, creatinine 5.7, glucose 86, calcium 9.6, AST 21, ALT 28, albumin 3.4. CURRENT MEDICATIONS: Apresoline, Catapres, Colace, Dilaudid, Keppra, MiraLax, Pepcid, Procardia XL 90, labetalol 300 t.i.d., Xopenex, and Zofran. ASSESSMENT AND PLAN: 1. Status post hypertensive emergency. 2. Status post hypertensive intracerebral bleed. 3. Acute cerebrovascular accident, resolving deficits. 4. Chronic obstructive pulmonary disease. 5. Peripheral vascular disease. 6. Coronary artery disease. 7. Pulmonary hypertension. 8. End-stage renal disease. PLAN: 1. Repeat CT scan shows no change in hemorrhage. 2. Continue current antihypertensive regimen. 3. Continue to monitor blood pressure closely. 4. Neurology followup. 5. Dialysis tomorrow. Tamanna Smith MD
--- NOTE | 2017-09-29 01:45 | CP.PCM.PN ---
Subjective - Date & Time of Evaluation Date of Evaluation: 09/29/17 Time of Evaluation: 01:44 - Subjective Subjective: legs pain. 116/54, afebrile, pulse ox 98% on 2L/min. Objective - Vital Signs/Intake and Output Vital Signs (last 24 hours): Temp Pulse Resp BP Pulse Ox 98.3 F 68 49 H 135/50 L 97 09/28/17 23:47 09/28/17 23:41 09/28/17 23:38 09/28/17 23:42 09/28/17 14:00 Intake and Output: 09/28/17 09/29/17 18:59 06:59 Intake Total 620 Output Total 300 Balance 320 - Medications Medications: Current Medications Clonidine HCl (Catapres) 0.2 mg PO TID [facility] Last Admin: 09/28/17 18:19 Dose: 0.2 mg Docusate Sodium (Colace) 100 mg PO TID [facility] Last Admin: 09/28/17 18:21 Dose: 100 mg Famotidine (Pepcid) 20 mg PO DAILY [facility] Last Admin: 09/28/17 09:03 Dose: 20 mg Hydralazine HCl (Apresoline) 10 mg IVP Q6 PRN PRN Reason: SBP >160 Last Admin: 09/28/17 08:29 Dose: 10 mg Labetalol HCl (Trandate) 300 mg PO TID [facility] Last Admin: 09/28/17 18:19 Dose: 300 mg Levalbuterol HCl (Xopenex) 0.63 mg IH [id number] PRN PRN Reason: Shortness of Breath Last Admin: 09/28/17 14:02 Dose: 0.63 mg Levetiracetam (Keppra) 250 mg PO BID [facility] Last Admin: 09/28/17 18:20 Dose: 250 mg Levothyroxine Sodium (Synthroid) 75 mcg PO 0600 [facility] Last Admin: 09/28/17 07:19 Dose: 75 mcg Nifedipine (Procardia Xl) 90 mg PO DAILY [facility] Last Admin: 09/28/17 09:06 Dose: 90 mg Ondansetron HCl (Zofran Inj) 4 mg IVP Q6H PRN PRN Reason: Nausea/Vomiting Last Admin: 09/28/17 08:59 Dose: 4 mg Polyethylene Glycol (Miralax) 17 gm PO BID [facility] Last Admin: 09/28/17 18:21 Dose: 17 gm - Labs Labs: 09/28/17 07:30 09/28/17 07:30 PT 10.7 SECONDS (9.4-12.5) 09/24/17 14:15 INR 0.93 (0.93-1.08) 09/24/17 14:15 APTT 26.4 Seconds (25.1-36.5) 09/24/17 14:15
[2017-09-29] MEDS ORDERED: HYDROmorphone 0.5 mg/0.5 ml ISec IVP STA (01:53)
[2017-09-29] MEDS: Levothyroxine 75 MCG TAB PO SCH (05:21)
[2017-09-29] MEDS ORDERED: Oxycodone/Acetaminophen 5/325 mg Tab PO STA (09:26)
[2017-09-29] MEDS: POLYETHYLENE GLYCOL 3350 17 GM/Dose PACKET PO SCH ×2 (10:00→18:35)
[2017-09-29 10:59] LABS: BASO # 0.01 K/mm3 (0.0-2.0); BASO % 0.3 % (0.0-3.0); EOS # 0.1 (0.0-0.7); EOS % 3.3 % (1.5-5.0); GRAN # 2.64 (1.4-6.5); GRAN % 66.8 % (50.0-68.0); LYMPH # 0.9 (1.2-3.4); LYMPH % 22.8 % (22.0-35.0); MEAN CELL VOLUME 95.6 fl (80.0-105.0); MEAN CORPUSCULAR HEMOGLOBIN 28.2 pg (25.0-35.0); MEAN CORPUSCULAR HGB CONC 29.5 g/dl (31.0-37.0); MEAN PLATELET VOLUME 11.4 fl (7.0-11.0); MONO # 0.3 (0.1-0.6); MONO % 6.8 % (1.0-6.0); RBC 3.19 10^6/uL (3.5-6.1); RED CELL DISTRIBUTION WIDTH 16.9 % (11.5-14.5)
[2017-09-29] MEDS ORDERED: Oxycodone/Acetaminophen 5/325 mg Tab PO PRN (11:01)
[2017-09-29 11:09] LABS: ALBUMIN 2.9 g/dL (3.0-4.8); CALCIUM 8.6 mg/dL (8.4-10.5)
[2017-09-29] MEDS ORDERED: Iron Sucrose 100 mg/5 ml Inj IVP ONE ×3 (11:09→12:40)
[2017-09-29 11:10] LABS: ALB/GLOB RATIO 1.4 (1.1-1.8)
[2017-09-29] MEDS ORDERED: Doxercalciferol 4 mcg/2 ml Inj IVP ONE (11:58)
--- NOTE | 2017-09-29 12:28 | PN ---
DATE: SUBJECTIVE: The patient is a 57-year-old female who is having complaint of right leg pain, complaining of back pain. Denies any headache. Complaining of feeling nauseous. PHYSICAL EXAMINATION: VITAL SIGNS: She is afebrile, pulse 70, respirations 20, blood pressure 125/48. LUNGS: Bilateral good fair airflow. No rhonchi or crackle. HEART: S1 and S2 audible. ABDOMEN: Soft. Nontender. No rebound. No guarding. NEUROLOGIC: She is awake, alert, oriented and has generalized weakness, has right francis ulcer. 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 LABORATORY EXAM: WBC is 4.0, hemoglobin 9.0, hematocrit 30.5, platelet of 107. Chemistry: Sodium 136, potassium 4.2, chloride 102, CO2 of 24, BUN 50, creatinine 6.8, blood sugar of 192. ASSESSMENT: 1. Status post intracranial bleed secondary to uncontrolled hypertension. Currently, the patient is asymptomatic. 2. Chronic obstructive pulmonary disease secondary to smoking. 3. Peripheral vascular disease, status post bypass surgery. 4. Coronary artery disease, status post angioplasty. 5. Pulmonary hypertension. 6. End-stage renal disease, on hemodialysis. 7. Peptic ulcer disease. PLAN: The patient is complaining of pain in the right francis and she states Percocet is not helping. I will start her on Dilaudid 0.5 q. 6 p.r.n. The patient needs to be in subacute to long-term placement since she is basically bed bound. Brittany Coffman MD
--- NOTE | 2017-09-29 15:11 | CP.PCM.PN ---
Subjective - Date & Time of Evaluation Date of Evaluation: 09/29/17 Time of Evaluation: 15:11 - Subjective Subjective: 57 year old female with PMHx end-stage renal disease on dialysis, hypertension, CHF, peptic ulcer disease, chronic anemia seen at bedside with Dr. Forte for right arterial leg ulceration. Patient is AAO x 3 and NAD, resting comfortably in bed at time of visit. Pt complaints of pain in the left heel today, stating it hurts when she leans on it. She states that her right wound pain is significantly milder and she feels much better. Heel pads are sitting on patient 's bed but not on at time of visit. Pt denies any further pedal complaints. Denies N/V/F/C/CP/SOB/D/posterior calf pain Objective - Vital Signs/Intake and Output Vital Signs (last 24 hours): Temp Pulse Resp BP Pulse Ox 98.5 F 70 20 135/48 L 100 09/29/17 06:00 09/29/17 06:00 09/29/17 06:00 09/29/17 06:00 09/29/17 06:00 Intake and Output: 09/29/17 09/29/17 06:59 18:59 Intake Total 860 240 Output Total 300 Balance 560 240 - Medications Medications: Current Medications Clonidine HCl (Catapres) 0.2 mg PO TID [facility] Last Admin: 09/29/17 10:00 Dose: Not Given Docusate Sodium (Colace) 100 mg PO TID [facility] Last Admin: 09/29/17 10:00 Dose: Not Given Famotidine (Pepcid) 20 mg PO DAILY [facility] Last Admin: 09/28/17 09:03 Dose: 20 mg Hydralazine HCl (Apresoline) 10 mg IVP Q6 PRN PRN Reason: SBP >160 Last Admin: 09/28/17 08:29 Dose: 10 mg Hydromorphone HCl (Dilaudid) 0.5 mg IVP Q6H PRN PRN Reason: Pain, moderate (4-7) Labetalol HCl (Trandate) 300 mg PO TID [facility] Last Admin: 09/29/17 10:00 Dose: Not Given Levalbuterol HCl (Xopenex) 0.63 mg IH [id number] PRN PRN Reason: Shortness of Breath Last Admin: 09/28/17 14:02 Dose: 0.63 mg Levetiracetam (Keppra) 250 mg PO BID [facility] Last Admin: 09/29/17 10:00 Dose: Not Given Levothyroxine Sodium (Synthroid) 75 mcg PO 0600 [facility] Last Admin: 09/29/17 05:21 Dose: 75 mcg Nifedipine (Procardia Xl) 90 mg PO DAILY [facility] Last Admin: 09/28/17 09:06 Dose: 90 mg Ondansetron HCl (Zofran Inj) 4 mg IVP Q6H PRN PRN Reason: Nausea/Vomiting Last Admin: 09/28/17 08:59 Dose: 4 mg Polyethylene Glycol (Miralax) 17 gm PO BID [facility] Last Admin: 09/29/17 10:00 Dose: Not Given - Labs Labs: 09/29/17 10:53 09/29/17 10:53 PT 10.7 SECONDS (9.4-12.5) 09/24/17 14:15 INR 0.93 (0.93-1.08) 09/24/17 14:15 APTT 26.4 Seconds (25.1-36.5) 09/24/17 14:15 - Constitutional Appears: Well, Non-toxic, No Acute Distress - Extremities Exam Additional comments: LE focused exam: Dressings noted to be C/D/I to bilateral extremities Vasc: DP/PT pulses palpable 2/4 B/L. Skin temperature warm to warm from proximal to distal. CFT < 3 seconds to all digits B/L. 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 Base is fibrogranular with no evidence of periwound erythema. Evidence of re-epithelialization is noted to wound edges. No malodor, no purulence, no tunneling, tracking, undermining, probe to bone or fluctuance. No maceration, xerosis, abnormal pigmentation or abnormal growths noted to b/l LE. Left heel exhibits stage 1 pressure ulceration with erythema. Ortho: Mild tenderness to palpation to right leg ulcerations - Neurological Exam Neurological Exam: Alert, Awake, Oriented x3 - Psychiatric Exam Psychiatric exam: Normal Affect, Normal Mood Assessment and Plan - Assessment and Plan (Free Text) Assessment: 57 year old female seen at bedside for right leg ulceration, 15 days s/p right leg wound debridement with application of Puraply graft Plan: Patient seen and evaluated at bedside with attending Dr. Forte Labs and vitals reviewed- afebrile, WBC 4.0 Pt administered pain medication prior to dressing change due to significant pain Patient's right leg ulcer cleansed with saline soaked gauze and dressed with Optifoam Wound is improving in size and appearance at this time Pt was discharged from hospital 09/22/17, during which stay she received abx per ID Left heel stage 1 ulcer dressed with Optifoam Heel pads reapplied, to be worn at all times in bed Podiatry will continue to follow while patient in house
--- NOTE | 2017-09-29 15:14 | PN ---
DATE: 09/29/2017 SUBJECTIVE: The patient is seen in the dialysis unit. She is awake. She is alert. She is comfortable. PHYSICAL EXAMINATION: GENERAL: A middle-aged lady seen in the dialysis unit. VITAL SIGNS: Blood pressure of 135/48, heart rate of 70, respiratory rate of 20, and temperature of 98.5. HEENT: Normocephalic, atraumatic, positive pallor. NECK: Supple, no JVD. LUNGS: Bilateral equal air entry, bilateral equal expansion, no rales. CARDIAC: S1 and S2, regular rate and rhythm, no murmur, no rub. ABDOMEN: Soft, nondistended, and nontender, bowel sounds present. EXTREMITIES: No lower extremity edema. LABORATORY DATA: WBC 4, hemoglobin 9, hematocrit 30.5, and platelets 107. Sodium 136, potassium 4.2, chloride 102, CO2 24, BUN 50, creatinine 6.8, glucose 193, calcium 8.6, and albumin 2.9. CURRENT MEDICATIONS: Catapres not given this morning. None of the p.o. medications was given this morning. ASSESSMENT: 1. Status post hypertensive emergency. 2. Hypertensive intracranial bleed. 3. Resolved weakness secondary to cerebrovascular accident. 4. Coronary artery disease. 5. Peripheral vascular disease. 6. Pulmonary hypertension. 7. End-stage renal disease. 8. Anemia. PLAN: 1. Continue current antihypertensives. 2. Stable dialysis. 3. Agree with plan for consideration of long-term placement. Tamanna Smith MD
[2017-09-29] MEDS: HYDROmorphone 0.5 mg/0.5 ml ISec IVP PRN (18:36)
[2017-09-30] MEDS: HYDROmorphone 0.5 mg/0.5 ml ISec IVP PRN ×3 (00:12→12:25)
[2017-09-30] MEDS: Levothyroxine 75 MCG TAB PO SCH (05:01)
[2017-09-30 07:10] VITALS: BP 142/63; RESP 18; TEMP 97.9; O2SAT 98
--- NOTE | 2017-09-30 08:05 | CP.PCM.PN ---
Subjective - Date & Time of Evaluation Date of Evaluation: 09/30/17 Time of Evaluation: 08:02 - Subjective Subjective: Ms. Thakur was seen and examined at the bedside. She is alert, oriented in all spheres. She denies any headache, blurred vision, dizziness, nausea, or vomiting. She states of experiencing left leg pain especially at night time. She is currently on pain medication. There was no untoward events overnight. Objective - Vital Signs/Intake and Output Vital Signs (last 24 hours): Temp Pulse Resp BP Pulse Ox 97.9 F 68 18 142/63 98 09/30/17 06:00 09/30/17 06:00 09/30/17 06:00 09/30/17 06:00 09/30/17 06:00 Intake and Output: 09/30/17 09/30/17 06:59 18:59 Intake Total 540 480 Balance 540 480 - Medications Medications: Current Medications Clonidine HCl (Catapres) 0.2 mg PO TID [facility] Last Admin: 09/29/17 18:37 Dose: 0.2 mg Docusate Sodium (Colace) 100 mg PO TID [facility] Last Admin: 09/29/17 18:37 Dose: 100 mg Famotidine (Pepcid) 20 mg PO DAILY [facility] Last Admin: 09/28/17 09:03 Dose: 20 mg Hydralazine HCl (Apresoline) 10 mg IVP Q6 PRN PRN Reason: SBP >160 Last Admin: 09/28/17 08:29 Dose: 10 mg Hydromorphone HCl (Dilaudid) 0.5 mg IVP Q6H PRN PRN Reason: Pain, moderate (4-7) Last Admin: 09/30/17 06:11 Dose: 0.5 mg Labetalol HCl (Trandate) 300 mg PO TID [facility] Last Admin: 09/29/17 18:36 Dose: 300 mg Levalbuterol HCl (Xopenex) 0.63 mg IH [id number] PRN PRN Reason: Shortness of Breath Last Admin: 09/28/17 14:02 Dose: 0.63 mg Levetiracetam (Keppra) 250 mg PO BID [facility] Last Admin: 09/29/17 18:36 Dose: 250 mg Levothyroxine Sodium (Synthroid) 75 mcg PO 0600 [facility] Last Admin: 09/30/17 05:01 Dose: 75 mcg Nifedipine (Procardia Xl) 90 mg PO DAILY [facility] Last Admin: 09/28/17 09:06 Dose: 90 mg Ondansetron HCl (Zofran Inj) 4 mg IVP Q6H PRN PRN Reason: Nausea/Vomiting Last Admin: 09/30/17 00:12 Dose: 4 mg Polyethylene Glycol (Miralax) 17 gm PO BID [facility] Last Admin: 09/29/17 18:35 Dose: 17 gm - Labs Labs: 09/29/17 10:53 09/29/17 10:53 PT 10.7 SECONDS (9.4-12.5) 09/24/17 14:15 INR 0.93 (0.93-1.08) 09/24/17 14:15 APTT 26.4 Seconds (25.1-36.5) 09/24/17 14:15 - Constitutional Appears: No Acute Distress - Head Exam Head Exam: NORMAL INSPECTION - Neurological Exam Neurological Exam: Alert, Awake, Oriented x3 Neuro motor strength exam: Left Upper Extremity: 5, Right Upper Extremity: 5, Left Lower Extremity: 5, Right Lower Extremity: 5 Additional comments: Neurological unchanged from previous examination. Assessment and Plan (1) Intracranial hemorrhage Assessment & Plan: Case discussed with Dr. Mclean continue all current medical, physical, and occupational therapies. Recommend blood pressure being normotensive and may discharge to home if stable. Status: Acute
[2017-09-30] MEDS: NIFEdipine 90 mg ER Tab PO SCH (09:43)
[2017-09-30] MEDS: POLYETHYLENE GLYCOL 3350 17 GM/Dose PACKET PO SCH (09:43)
--- NOTE | 2017-09-30 12:44 | CT ---
PROCEDURE: CT HEAD WITHOUT CONTRAST. HISTORY: Subdural hematoma. . COMPARISON: Comparison made with prior CT scan brain dated 09/27/2017 TECHNIQUE: Axial computed tomography images were obtained through the head/brain without intravenous contrast. Radiation dose: Total exam DLP = 784.93 mGy-cm. This CT exam was performed using one or more of the following dose reduction techniques: Automated exposure control, adjustment of the mA and/or kV according to patient size, and/or use of iterative reconstruction technique. FINDINGS: HEMORRHAGE: Current study re- demonstrates a small elliptical shaped hematoma within the right caudate head which appears to extend into the posterior margin anterior limb right internal capsule. Very thin rim of low-attenuation surrounds the hematoma. No significant mass effect. BRAIN: Moderate to significant diffuse/confluent chronic white matter ischemic changes again seen extending peripherally into the deep and subcortical white matter both cerebral hemispheres. There is also extension of these changes into the white matter tracts of both basal ganglia. . Multiple small more discrete chronic appearing bilateral basal nuclei for type infarcts are also again noted. VENTRICLES: No obstructive hydrocephalus. CALVARIUM: No acute calvarial fractures. . Scalp calcifications again noted suggesting underlying IDDM. Clinical correlation recommended. PARANASAL SINUSES: Re- demonstrated are small focal polypoid areas of mucosal thickening inferior aspect right maxillary antrum. MASTOID AIR CELLS: Unremarkable as visualized. No inflammatory changes. OTHER FINDINGS: None. IMPRESSION: No change small right basal ganglia hemorrhage as described. No new hemorrhages. No obstructive hydrocephalus. Extensive chronic white matter ischemic changes as above.
--- NOTE | 2017-09-30 14:24 | CP.PCM.PN ---
Subjective - Date & Time of Evaluation Date of Evaluation: 09/30/17 Time of Evaluation: 14:23 - Subjective Subjective: 57 y/o female seen at bedside today for right leg ulceration and left stage 1 pressure ulceration to heel. Pt denies having any pain in the left heel or right leg today. Says she is feeling generally well and is excited to go home today. Is aware of the importance of follow up in the wound care center. Has no other pedal complaints. Dressings remain clean, dry and intact to bilateral extremities. Denies F/C/N/V/CP/SOB. Objective - Vital Signs/Intake and Output Vital Signs (last 24 hours): Temp Pulse Resp BP Pulse Ox 97.9 F 76 18 142/63 98 09/30/17 06:00 09/30/17 09:46 09/30/17 06:00 09/30/17 06:00 09/30/17 06:00 Intake and Output: 09/30/17 09/30/17 06:59 18:59 Intake Total 540 480 Balance 540 480 - Medications Medications: Current Medications Clonidine HCl (Catapres) 0.2 mg PO TID [facility] Last Admin: 09/30/17 09:43 Dose: 0.2 mg Docusate Sodium (Colace) 100 mg PO TID [facility] Last Admin: 09/30/17 09:43 Dose: 100 mg Famotidine (Pepcid) 20 mg PO DAILY [facility] Last Admin: 09/30/17 09:42 Dose: 20 mg Hydralazine HCl (Apresoline) 10 mg IVP Q6 PRN PRN Reason: SBP >160 Last Admin: 09/28/17 08:29 Dose: 10 mg Hydromorphone HCl (Dilaudid) 0.5 mg IVP Q6H PRN PRN Reason: Pain, moderate (4-7) Last Admin: 09/30/17 12:25 Dose: 0.5 mg Labetalol HCl (Trandate) 300 mg PO TID [facility] Last Admin: 09/30/17 09:46 Dose: 300 mg Levalbuterol HCl (Xopenex) 0.63 mg IH [id number] PRN PRN Reason: Shortness of Breath Last Admin: 09/28/17 14:02 Dose: 0.63 mg Levetiracetam (Keppra) 250 mg PO BID [facility] Last Admin: 09/30/17 09:43 Dose: 250 mg Levothyroxine Sodium (Synthroid) 75 mcg PO 0600 [facility] Last Admin: 09/30/17 05:01 Dose: 75 mcg Nifedipine (Procardia Xl) 90 mg PO DAILY [facility] Last Admin: 09/30/17 09:43 Dose: 90 mg Ondansetron HCl (Zofran Inj) 4 mg IVP Q6H PRN PRN Reason: Nausea/Vomiting Last Admin: 09/30/17 00:12 Dose: 4 mg Polyethylene Glycol (Miralax) 17 gm PO BID [facility] Last Admin: 09/30/17 09:43 Dose: 17 gm - Labs Labs: 09/29/17 10:53 09/29/17 10:53 PT 10.7 SECONDS (9.4-12.5) 09/24/17 14:15 INR 0.93 (0.93-1.08) 09/24/17 14:15 APTT 26.4 Seconds (25.1-36.5) 09/24/17 14:15 - Constitutional Appears: Well, Non-toxic, No Acute Distress - Extremities Exam Additional comments: LE focused exam: Heel pads not on at time of visit (lying at edge of bed) Dressings noted to be C/D/I to bilateral extremities Vasc: DP/PT pulses palpable 2/4 B/L. Skin temperature warm to warm from proximal to distal. CFT < 3 seconds to all digits B/L. 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 Base is fibrogranular with no evidence of periwound erythema. New granulation tissue present in wound bed. Evidence of re-epithelialization is noted to wound edges. No malodor, no purulence, no tunneling, tracking, undermining, probe to bone or fluctuance. No maceration, xerosis, abnormal pigmentation or abnormal growths noted to b/l LE. Left heel exhibits stage 1 pressure ulceration with erythema, improving. Ortho: Minimal tenderness to palpation to right leg ulcerations. No tenderness upon palpation of left heel - Neurological Exam Neurological Exam: Alert, Awake, Oriented x3 - Psychiatric Exam Psychiatric exam: Normal Affect, Normal Mood Assessment and Plan - Assessment and Plan (Free Text) Assessment: 57 year old female seen at bedside for right leg ulceration, 16 days s/p right leg wound debridement with application of Puraply graft Plan: Patient seen and evaluated at bedside with attending Dr. Blanton Labs and vitals reviewed- afebrile, WBC 4.0 Pt administered pain medication prior to dressing change due to significant pain Patient's right leg ulcer cleansed with saline soaked gauze and dressed with Optifoam Wound is improving in size and appearance at this time Pt was discharged from hospital 09/22/17, during which stay she received abx per ID Left heel stage 1 ulcer dressed with Optifoam Heel pads reapplied, to be worn at all times in bed Podiatry will continue to follow while patient in house Upon discharge, pt to follow up in the wound care center with Dr. Blanton/Reanna
[2017-09-30 17:07] VITALS: PULSE 83
--- NOTE | 2017-09-30 20:07 | PN ---
DATE: 09/30/2017 SUBJECTIVE: The patient is seen lying in bed. She is coming back from repeat CT scan of the head. She complains of being very weak. She denies any chest tightness, headaches. PHYSICAL EXAMINATION: GENERAL: Middle-aged lady lying in bed. VITAL SIGNS: Blood pressure 142/63, heart rate 68, respiratory rate 18, temperature 97.9. HEENT: Normocephalic, atraumatic, positive pallor. NECK: Supple, no JVD. LUNGS: Bilateral equal air entry, bilateral rhonchi, no rales. CARDIAC: S1 and S2, regular rate and rhythm, positive murmur, no rub. ABDOMEN: Distended, soft, nontender, bowel sounds present. EXTREMITIES: No lower extremity edema. LABORATORY DATA: No new labs today. CURRENT MEDICATIONS: Catapres 0.2 t.i.d., Colace 100 t.i.d., Dilaudid, Keppra, MiraLax, Pepcid, Procardia XL 90, Synthroid, Trandate, Xopenex, Zofran. CT of the head : No change in small right basal ganglia hemorrhage. ASSESSMENT/PLAN: 1. Status post hypertensive emergency. 2. Status post hypertensive intracranial bleed. 3. Endstage renal disease. 4. Chronic obstructive pulmonary disease. 5. Pulmonary hypertension. 6. Coronary artery disease. 7. Peripheral vascular disease. 8. Anemia. PLAN: 1. Blood pressure is well controlled now, continue current management. 2. Intracranial examination is stable/unchanged, no intervention per Neurology/Neurosurgery. 3. Status post dialysis yesterday. 4. The patient is stable from renal standpoint. Tamanna Smith MD
--- NOTE | 2017-10-01 05:15 | DS ---
HISTORY OF PRESENT ILLNESS: The patient is 57-year-old who was initially admitted because of generalized weakness. She was found to have intracranial bleed. The patient was admitted on 09/24/2017. Initial CAT scan showed acute 8 x 17 mm hemorrhage in the head of the caudate on the right with severe microvascular disease. The patient was admitted in the ICU, blood pressure was controlled. She was given her hemodialysis. She was closely observed and started to improve, transferred out of telemetry, doing well. PHYSICAL EXAMINATION: GENERAL: She is awake, alert, able to communicate. VITAL SIGNS: She is afebrile, pulse 83, respirations 18, and blood pressure 142/63. LUNGS: Bilateral fair airflow. No rhonchi or crackles. HEART: S1 and S2 audible. ABDOMEN: Soft and nontender. No rebound. No guarding. NEUROLOGICAL: The patient is awake, alert and able to communicate. Able to move all extremities except right lower leg, she has ischemic versus ulcer that has been grafted by Dr. Blanton. ASSESSMENT: 1. Status post intracerebral bleed secondary to hypertensive emergency. 2. End-stage renal disease, on hemodialysis. 3. Hypertension. 4. History of pulmonary hypertension. 5. Chronic obstructive pulmonary disease. 6. Active smoker. 7. Peptic ulcer disease. PLAN: Patient has repeat CT scan of the head done that shows no increase in intracranial bleed and no change in the basal ganglia hemorrhage and no new hemorrhage, no obstruction or hydrocephalus, so plan is patient is going to be discharged home today. She lives with her son who is very supportive. She will continue her medication and she will resume her medications including labetalol 300 three times a day, levothyroxine. She is on nifedipine. She will take Percocet as needed. She is on clonidine 0.2 t.i.d. We will follow her up in our office. Brittany Coffman MD
== END 2017-09-30 19:45 | disposition home health service (06) | DRG 64 ==
LOC: ED 14:00 → ERH 15:11 → CCU 16:46 → 2RSO 09-29 00:04 → 3RSO 09-29 13:53
PROVIDERS: ADMIT Internal Medicine Medical Oncology; ATTEND Internal Medicine
PROC: 05H633Z Insertion of Infusion Device into Left Subclavian Vein, Percutaneous Approach (ICD-10-PCS; principal; 2017-09-25)
PROC: B54NZZA Ultrasonography of Left Upper Extremity Veins, Guidance (ICD-10-PCS; 2017-09-25)
PROC: 5A1D70Z Performance of Urinary Filtration, Intermittent, Less than 6 Hours Per Day (ICD-10-PCS; 2017-09-25)
PROC: 5A1D70Z Performance of Urinary Filtration, Intermittent, Less than 6 Hours Per Day (ICD-10-PCS; 2017-09-26)
PROC: 5A1D70Z Performance of Urinary Filtration, Intermittent, Less than 6 Hours Per Day (ICD-10-PCS; 2017-09-29)
DX: I61.9 Nontraumatic intracerebral hemorrhage, unspecified (principal); N18.6 End stage renal disease; I21.4 Non-ST elevation (NSTEMI) myocardial infarction; I13.2 Hypertensive heart and chronic kidney disease with heart failure and with stage 5 chronic kidney disease, or end stage renal disease; I27.20 Pulmonary hypertension, unspecified; L89.621 Pressure ulcer of left heel, stage 1; L97.212 Non-pressure chronic ulcer of right calf with fat layer exposed; I16.1 Hypertensive emergency; I50.9 Heart failure, unspecified; F17.200 Nicotine dependence, unspecified, uncomplicated; K27.9 Peptic ulcer, site unspecified, unspecified as acute or chronic, without hemorrhage or perforation; I73.9 Peripheral vascular disease, unspecified; E03.9 Hypothyroidism, unspecified; D63.8 Anemia in other chronic diseases classified elsewhere; J43.9 Emphysema, unspecified; K59.03 Drug induced constipation; T40.2X5A Adverse effect of other opioids, initial encounter; I25.10 Atherosclerotic heart disease of native coronary artery without angina pectoris; R29.810 Facial weakness; R29.714 NIHSS score 14; R29.709 NIHSS score 9; Z99.81 Dependence on supplemental oxygen; Z99.2 Dependence on renal dialysis; Z95.5 Presence of coronary angioplasty implant and graft; Z99.3 Dependence on wheelchair; Z86.718 Personal history of other venous thrombosis and embolism

== ENCOUNTER 2017-10-03 17:04 | Observation (INO) | payer MEDICARE, OTHER ==
[2017-10-03 17:04] VITALS: BMI 19.9
--- NOTE | 2017-10-03 18:39 | ED PDOC ---
Arrival/HPI - General Chief Complaint: Chest Pain Time Seen by Provider: 10/03/17 17:27 Historian: Patient - History of Present Illness Narrative History of Present Illness (Text): 10/03/17 18:15 57 y/o female, pmh including htn/chf/cor pulmonae/ESRD/CAD, allergic to cipro/ hydralazyin/vancomycin/CT dye, c/o chest pain started early this morning. Pt. stated that she has been having chest pain with midsternal, no palpitation, no rash, nonradiating, no night sweat, no dizziness, no numbness or tingling, no other medical or psychological complaints. Past Medical History - Provider Review Nursing Documentation Reviewed: Yes - Past History Past History: No Previous - Infectious Disease Hx of Infectious Diseases: None - Tetanus Immunization Tetanus Immunization: Unknown - Cardiac Hx Cardiac Disorders: Yes Hx Congestive Heart Failure: Yes Hx Hypertension: Yes - Pulmonary Hx Chronic Obstructive Pulmonary Disease (COPD): Yes - Neurological Hx Neurological Disorder: Yes (numbness ble when ambulating) Hx Migraine: Yes Other/Comment: cold extremities - HEENT Hx HEENT Disorder: Yes (hard of hearing) Hx Blind: No Hx Cataracts: No Hx Deafness: No Hx Difficulty Chewing: No Hx Epistaxis: No Hx Glaucoma: No Hx Macular Degeneration: No Other/Comment: tinnitus, - Renal Hx Renal Failure: Yes - Endocrine/Metabolic Hx Hypothyroidism: Yes - Hematological/Oncological Hx Cancer: No - Integumentary Hx Dermatological Disorder: No (non healing sugical wound to right ankle) Other/Comment: r ankle wound cared for by dr parada at wound center, pt does not want dressing removed for assesment, wound 1.5cm x 0.7cm stage 1 wound to right buttocks red and open to air, multiple skin discolorations to ble - Musculoskeletal/Rheumatological Hx Falls: No - Gastrointestinal Hx Gastrointestinal Disorders: Yes (FECAL IMPACTION,CONSTIPATION,POOR APPETITE, GASTRITIS) Hx Diverticulitis: Yes Other/Comment: poor appetite weight loss, diverticulosis, bloating - Genitourinary/Gynecological Hx Genitourinary Disorders: Yes (voids very little) - Psychiatric Hx Psychophysiologic Disorder: Yes Hx Anxiety: Yes Hx Bipolar Disorder: No Hx Depression: No Hx Emotional Abuse: No Hx Hallucinations: No Hx Panic Disorder: No Hx Post Traumatic Stress Disorder: No Hx Psychosis: No Hx Physical Abuse: No Hx Schizophrenia: No Hx Sexual Abuse: No Hx Substance Use: No - Past Surgical History Past Surgical History: Unable to Obtain - Surgical History Hx Mastectomy: No - Anesthesia Hx Anesthesia: Yes Hx Anesthesia Reactions: No Hx Malignant Hyperthermia: No - Suicidal Assessment Feels Threatened In Home Enviroment: No Family/Social History - Physician Review Nursing Documentation Reviewed: Yes Family/Social History: Unknown Family HX Smoking Status: Former Smoker Hx Alcohol Use: No Hx Substance Use: No Hx Substance Use Treatment: No Allergies/Home Meds Allergies/Adverse Reactions: Allergies ciprofloxacin Allergy (Verified 10/03/17 17:11) RASH hydralazine Allergy (Verified 10/03/17 17:11) RASH vomiting vancomycin Allergy (Verified 10/03/17 17:11) SHORTNESS OF BREATH palpitations ct dye Allergy (Uncoded 10/03/17 17:11) RASH Home Medications: Home Meds Medication Instructions Recorded Confirmed Clopidogrel [Plavix] 75 mg PO DAILY 10/05/17 Docusate [Colace] 100 mg PO TID 10/05/17 10/05/17 Lisinopril [Zestril] 40 mg PO DAILY 10/05/17 10/05/17 NIFEdipine ER [Procardia XL] 90 mg PO DAILY 10/05/17 10/05/17 Polyethylene Glycol 3350 [Miralax] 17 gm PO BID 10/05/17 10/05/17 Sildenafil [Revatio] 20 mg PO DAILY 10/05/17 10/05/17 Review of Systems - Review of Systems Constitutional: absent: Fatigue, Fevers Eyes: absent: Vision Changes ENT: absent: Hearing Changes Respiratory: absent: SOB, Cough Cardiovascular: Chest Pain Gastrointestinal: absent: Abdominal Pain, Diarrhea, Nausea, Vomiting Neurological: absent: Headache, Dizziness Hemo/Lymphatic: absent: Adenopathy Psychiatric: absent: Anxiety, Depression Physical Exam Vital Signs Reviewed: Yes Vital Signs Temp Pulse Resp BP Pulse Ox 10/04/17 01:38 98.1 F 80 19 175/80 H 100 10/04/17 01:19 82 193/80 H 10/04/17 00:46 98.1 F 81 18 215/75 H 100 10/03/17 23:00 98.1 F 75 16 238/114 H 100 10/03/17 21:00 98.1 F 81 16 159/94 H 99 10/03/17 19:10 98 F 75 19 197/100 H 99 10/03/17 17:16 98.0 F 72 18 199/95 H 100 Temperature: Afebrile Blood Pressure: Hypertensive Pulse: Regular Respiratory Rate: Normal Appearance: Positive for: Well-Appearing, Non-Toxic, Comfortable Pain Distress: Mild Mental Status: Positive for: Alert and Oriented X 3 - Systems Exam Head: Present: Atraumatic, Normocephalic Pupils: Present: PERRL Extroacular Muscles: Present: EOMI Conjunctiva: Present: Normal Mouth: Present: Moist Mucous Membranes Neck: Present: Normal Range of Motion Respiratory/Chest: Present: Clear to Auscultation, Good Air Exchange. No: Respiratory Distress, Accessory Muscle Use Cardiovascular: Present: Regular Rate and Rhythm, Normal S1, S2. No: Murmurs, Tachycardic Abdomen: Present: Normal Bowel Sounds. No: Tenderness, Distention, Peritoneal Signs Back: Present: Normal Inspection Upper Extremity: Present: Normal Inspection. No: Cyanosis, Edema Lower Extremity: Present: Normal Inspection. No: Edema Neurological: Present: GCS=15, Speech Normal, Motor Func Grossly Intact, Gait Normal, Memory Normal Skin: Present: Warm, Dry, Normal Color. No: Rashes Psychiatric: Present: Alert, Oriented x 3, Normal Insight, Normal Concentration Medical Decision Making ED Course and Treatment: 10/03/17 18:42 -labs/ua/cardiac enzyme -EKG -CXR -SL Nitro/aspirin -Observe and reassess 10/03/17 18:44 -Still pending for the chemistry and troponin, complaining about the pain again , morphien and Nitro ordered again. 10/03/17 22:03 -HEART score is 6.0, will need trending of troponin for this findings -EKG: NSR @ 74 BPM, no acute ST or T wave changes compared with previous ekg. -Labs are non-significant except Creatine 2.9 from 6.8, BNP 35,000 from 216,000 , Troponin 0.10 from 0.20 -Chest xray cardiomegally with venous congestion -Dr. Coffman paged for admission to tele. 10/03/17 23:01 -I spoke to Dr. Coffman, discussed about the case/labs/troponin/radiology result , agreed on this admission and request Dr. Ontiveros on routine consult, and nitropaste if the chest pain and elevated BP remains. -I discussed with Dr. Moura, ER attending, agreed on this admission and will put in the admission order. 10/04/17 01:07 -HR 94, BP 215/75, Labetolol 20mg IVP ordered - Lab Interpretations Lab Results: 10/03/17 20:20 10/03/17 21:10 Lab Results 10/03/17 21:10: Sodium 137, Potassium 4.3, Chloride 96 L, Carbon Dioxide 29, Anion Gap 16, BUN 21, Creatinine 2.9 H, Est GFR ( Amer) 20, Est GFR (Non- Af Amer) 17, Random Glucose 108, Calcium 9.9, Magnesium 1.9, Total Bilirubin 0.5 , AST 19, ALT 22, Alkaline Phosphatase 117, Lactate Dehydrogenase 562, Total Creatine Kinase 26 L, Troponin I 0.10 D, NT-Pro-B Natriuret Pep > 11124 H, Total Protein 6.1, Albumin 3.7, Globulin 2.4, Albumin/Globulin Ratio 1.5 10/03/17 20:20: Influenza Typ A,B (EIA) Negative for flu a/b 10/03/17 20:20: WBC 7.7 D, RBC 4.28, Hgb 12.2 D, Hct 41.1, MCV 96.0, MCH 28.5 , MCHC 29.7 L, RDW 16.3 H, Plt Count 160, MPV 11.0, Gran % 77.5 H, Lymph % (Auto ) 14.6 L, [place] % (Auto) 5.5, Eos % (Auto) 2.0, Baso % (Auto) 0.4, Gran # 5.93, Lymph # 1.1 L, [place] # 0.4, Eos # 0.2, Baso # 0.03 - RAD Interpretation Radiology Orders: 10/03/17 18:33 CHEST PORTABLE [RAD] Stat Venous congestion with cardiomegally Marketing Project Coordinator: Radiologist - Medication Orders Current Medication Orders: Discontinued Medications Aspirin (Aspirin) 325 mg PO STAT STA Stop: 10/03/17 18:43 Last Admin: 10/03/17 18:49 Dose: 325 mg Clonidine HCl (Catapres) 0.2 mg PO STAT STA Stop: 10/04/17 06:40 Last Admin: 10/04/17 06:46 Dose: 0.2 mg MAR Pulse and Blood Pressure Document 10/04/17 06:46 ADRIA (Rec: 10/04/17 06:47 ADRIA [id number]) Pulse Pulse Rate (60-90) 81 Blood Pressure Blood Pressure (100/60-150/90) 206/96 Clonidine HCl (Catapres) 0.2 mg PO TID [facility] Last Admin: 10/05/17 15:44 Dose: 0.2 mg MAR Pulse and Blood Pressure Document 10/05/17 15:44 JFR (Rec: 10/05/17 15:44 JFR [id number]) Blood Pressure Blood Pressure (100/60-150/90) 166/66 Famotidine (Pepcid) 20 mg PO DAILY [facility] Last Admin: 10/05/17 10:06 Dose: 20 mg Hydromorphone HCl (Dilaudid) 0.5 mg IVP STAT STA Stop: 10/04/17 03:45 Last Admin: 10/04/17 03:59 Dose: 0.5 mg MAR Pain Assessment Document 10/04/17 03:59 ADRIA (Rec: 10/04/17 04:00 ADRIA [id number]) Pain Reassessment Is this a pain reassessment? No Sleep Is patient sleeping during reassessment? No Presence of Pain Presence of Pain Yes Pain Scale Used Pain Scale Used Numeric Location Left, Right or Bilateral Right Pain Location Body Site Ankle Description Description Intermittent IVP Administration Document 10/04/17 03:59 ADRIA (Rec: 10/04/17 04:00 ADRIA [id number]) Charges for Administration # of IVP Administrations 1 Re-Assess: MATTHEW Pain Assessment Document 10/04/17 04:59 ADRIA (Rec: 10/04/17 05:34 ADRIA MAHMOOD-DENISE) Pain Reassessment Is this a pain reassessment? Yes Sleep Is patient sleeping during reassessment? Yes Hydromorphone HCl (Dilaudid) 1 mg PO Q6 PRN PRN Reason: Pain, moderate (4-7) Last Admin: 10/05/17 12:33 Dose: 1 mg MAR Pain Assessment Document 10/05/17 12:33 JFBird (Rec: 10/05/17 12:34 MIKY [id number]) Pain Reassessment Is this a pain reassessment? Yes Sleep Is patient sleeping during reassessment? No Presence of Pain Presence of Pain Yes Pain Scale Used Pain Scale Used Numeric Location Left, Right or Bilateral Bilateral Upper or Lower Lower Pain Location Body Site Leg Description Description Intermittent Intensity of Pain at present 6 Pain Behavior Guarding Irritability Restlessness Aggravating Factors ADL's Changing Position Exercise/Activity Alleviating Factors/Management Medication Techniques Inactivity Alleviating Factors Medication Re-Assess: [facility] Pain Assessment Document 10/05/17 13:33 JFG (Rec: 10/05/17 13:38 JFG [id number]) Pain Reassessment Is this a pain reassessment? Yes Sleep Is patient sleeping during reassessment? Yes Labetalol HCl (Trandate) 20 mg IV STAT STA Stop: 10/04/17 01:08 Last Admin: 10/04/17 01:19 Dose: 20 mg eMAR Start Stop Document 10/04/17 01:19 AB (Rec: 10/04/17 01:19 AB [id number]) Intravenous Solution Start Date 10/04/17 Start Time 01:17 End Date 10/04/17 End time 01:19 Total Infusion Time 2 [facility] Pulse and Blood Pressure Document 10/04/17 01:19 AB (Rec: 10/04/17 01:19 AB [email or web address]) Pulse Pulse Rate (60-90) 82 Blood Pressure Blood Pressure (100/60-150/90) 193/80 Labetalol HCl (Trandate) 20 mg IVP ONCE ONE Stop: 10/04/17 05:31 Last Admin: 10/04/17 05:49 Dose: 20 mg IVP Administration Document 10/04/17 05:49 ADRIA (Rec: 10/04/17 05:56 ADRIA [id number]) Charges for Administration # of IVP Administrations 1 MAR Pulse and Blood Pressure Document 10/04/17 05:49 ADRIA (Rec: 10/04/17 05:56 ADRIA [id number]) Pulse Pulse Rate (60-90) 90 Blood Pressure Blood Pressure (100/60-150/90) 210/90 Labetalol HCl (Trandate) 300 mg PO TID [facility] Last Admin: 10/05/17 15:44 Dose: 300 mg MAR Pulse and Blood Pressure Document 10/05/17 15:44 JFR (Rec: 10/05/17 15:44 JFR [id number]) Blood Pressure Blood Pressure (100/60-150/90) 166/66 Levetiracetam (Keppra) 250 mg PO BID [facility] Last Admin: 10/05/17 10:06 Dose: 250 mg Levothyroxine Sodium (Synthroid) 75 mcg PO 0600 [facility] Last Admin: 10/05/17 05:45 Dose: 75 mcg Morphine Sulfate (Morphine) 2 mg IVP STAT STA Stop: 10/03/17 21:30 Last Admin: 10/03/17 22:17 Dose: 2 mg MAR Pain Assessment Document 10/03/17 22:17 AB (Rec: 10/03/17 22:17 AB [place] [id number]) Pain Reassessment Is this a pain reassessment? Yes Sleep Is patient sleeping during reassessment? No Presence of Pain Presence of Pain Yes Location Pain Location Body Site Chest Leg Description Description Constant Intensity of Pain at present 8 Alleviating Factors/Management Medication Techniques Alleviating Factors Medication IVP Administration Document 10/03/17 22:17 AB (Rec: 10/03/17 22:17 AB [place] [id number]) Charges for Administration # of IVP Administrations 1 Nifedipine (Procardia Xl) 90 mg PO DAILY [facility] Last Admin: 10/05/17 10:06 Dose: 90 mg Nitroglycerin (Nitrostat Sl Tab) 0.3 mg SL STAT STA Stop: 10/03/17 18:43 Last Admin: 10/03/17 18:50 Dose: 0.3 mg Nitroglycerin (Nitrostat Sl Tab) 0.3 mg SL STAT STA Stop: 10/03/17 21:31 Last Admin: 10/03/17 22:16 Dose: 0.3 mg Nitroglycerin (Nitro-Bid 2% Oint) 1 ea TOP STAT STA Stop: 10/03/17 23:05 Last Admin: 10/03/17 23:12 Dose: 1 ea Ondansetron HCl (Zofran Tab) 4 mg PO Q6H PRN PRN Reason: Nausea/Vomiting - PA / PROCESS CHECKER / Resident Statement / has reviewed & agrees with the documentation as recorded. Disposition/Present on Arrival - Present on Arrival Any Indicators Present on Arrival: No History of DVT/PE: No History of Uncontrolled Diabetes: No Urinary Catheter: No History of Decub. Ulcer: No History Surgical Site Infection Following: None - Disposition Have Diagnosis and Disposition been Completed?: Yes Diagnosis: Chest pain, Hypertension, ESRD (end stage renal disease) on dialysis Disposition: HOSPITALIZED Disposition Time: 22:06 Patient Plan: Admission, Telemetry Condition: STABLE
[2017-10-03] MEDS ORDERED: Aspirin 325 mg EC Tablets PO ONE (18:48)
[2017-10-03 20:43] LABS: BASO # 0.03 K/mm3 (0.0-2.0); BASO % 0.4 % (0.0-3.0); EOS # 0.2 (0.0-0.7); GRAN # 5.93 (1.4-6.5); GRAN % 77.5 % (50.0-68.0); HEMOGLOBIN 12.2 g/dL (12.0-16.0); LYMPH # 1.1 (1.2-3.4); LYMPH % 14.6 % (22.0-35.0); MEAN CORPUSCULAR HEMOGLOBIN 28.5 pg (25.0-35.0); MEAN CORPUSCULAR HGB CONC 29.7 g/dl (31.0-37.0); MONO # 0.4 (0.1-0.6); MONO % 5.5 % (1.0-6.0); RBC 4.28 10^6/uL (3.5-6.1); RED CELL DISTRIBUTION WIDTH 16.3 % (11.5-14.5); WHITE BLOOD COUNT 7.7 10^3/ul (4.5-11.0)
[2017-10-03] MEDS ORDERED: Morphine 2 mg/ml ISec IVP STA (21:29)
[2017-10-03 21:38] LABS: ALB/GLOB RATIO 1.5 (1.1-1.8); ALBUMIN 3.7 g/dL (3.0-4.8); ALT/SGPT 22 U/L (7-56); AST/SGOT 19 U/L (14-36); BLOOD UREA NITROGEN 21 mg/dL (7-21); CALCIUM 9.9 mg/dL (8.4-10.5); GFR AFRICAN-AMERICAN 20; GFR NON-AFRICAN AMERICAN 17; MAGNESIUM 1.9 mg/dL (1.7-2.2)
[2017-10-03 21:48] LABS: B-TYPE NATRIURETIC PEPTIDE > 35000 pg/mL (0-450)
[2017-10-03] MEDS ORDERED: Nitroglycerin 2% Ointment Foilpak UD TOP STA (23:04)
[2017-10-04] MEDS ORDERED: Labetalol 5 mg/ml Inj 20ML IV STA (01:07)
[2017-10-04] MEDS ORDERED: HYDROmorphone 0.5 mg/0.5 ml ISec IVP STA (03:44)
--- NOTE | 2017-10-04 03:49 | CP.PCM.PN ---
Subjective - Date & Time of Evaluation Date of Evaluation: 10/04/17 Time of Evaluation: 03:45 - Subjective Subjective: Patient complained of right distal leg pain. Requested strong pain medication. Has no other complaints now. Medical record was reviewed. 57 year old woman is admitted with chest pain. Has PMH of CHF, HTN, COPD, migraine , hard in hearing , tinitus, hypothyroidism , right ankle chronic wound, right ankle pain, constipation, diverticulosis,anxiety. Objective - Vital Signs/Intake and Output Vital Signs (last 24 hours): Temp Pulse Resp BP Pulse Ox 97.7 F 79 20 189/69 H 100 10/04/17 02:02 10/04/17 02:02 10/04/17 02:02 10/04/17 02:02 10/04/17 01:38 - Medications Medications: Current Medications Hydromorphone HCl (Dilaudid) 0.5 mg IVP STAT STA Stop: 10/04/17 03:45 - Labs Labs: Most Recent Lab Values WBC 7.7 10^3/ul (4.5-11.0) D 10/03/17 20:20 RBC 4.28 10^6/uL (3.5-6.1) 10/03/17 20:20 Hgb 12.2 g/dL (12.0-16.0) D 10/03/17 20:20 Hct 41.1 % (36.0-48.0) 10/03/17 20:20 MCV 96.0 fl (80.0-105.0) 10/03/17 20:20 MCH 28.5 pg (25.0-35.0) 10/03/17 20:20 MCHC 29.7 g/dl (31.0-37.0) L 10/03/17 20:20 RDW 16.3 % (11.5-14.5) H 10/03/17 20:20 Plt Count 160 10^3/uL (120.0-450.0) 10/03/17 20:20 MPV 11.0 fl (7.0-11.0) 10/03/17 20:20 Gran % 77.5 % (50.0-68.0) H 10/03/17 20:20 Lymph % (Auto) 14.6 % (22.0-35.0) L 10/03/17 20:20 [place] % (Auto) 5.5 % (1.0-6.0) 10/03/17 20:20 Eos % (Auto) 2.0 % (1.5-5.0) 10/03/17 20:20 Baso % (Auto) 0.4 % (0.0-3.0) 10/03/17 20:20 Gran # 5.93 (1.4-6.5) 10/03/17 20:20 Lymph # 1.1 (1.2-3.4) L 10/03/17 20:20 [place] # 0.4 (0.1-0.6) 10/03/17 20:20 Eos # 0.2 (0.0-0.7) 10/03/17 20:20 Baso # 0.03 K/mm3 (0.0-2.0) 10/03/17 20:20 Sodium 137 mmol/L (132-148) 10/03/17 21:10 Potassium 4.3 mmol/L (3.6-5.0) 10/03/17 21:10 Chloride 96 mmol/L (98-107) L 10/03/17 21:10 Carbon Dioxide 29 mmol/L (21-33) 10/03/17 21:10 Anion Gap 16 (10-20) 10/03/17 21:10 BUN 21 mg/dL (7-21) 10/03/17 21:10 Creatinine 2.9 mg/dl (0.7-1.2) H 10/03/17 21:10 Est GFR ( Amer) 20 10/03/17 21:10 Est GFR (Non-Af Amer) 17 10/03/17 21:10 Random Glucose 108 mg/dL (70-110) 10/03/17 21:10 Calcium 9.9 mg/dL (8.4-10.5) 10/03/17 21:10 Magnesium 1.9 mg/dL (1.7-2.2) 10/03/17 21:10 Total Bilirubin 0.5 mg/dL (0.2-1.3) 10/03/17 21:10 AST 19 U/L (14-36) 10/03/17 21:10 ALT 22 U/L (7-56) 10/03/17 21:10 Alkaline Phosphatase 117 U/L (38-126) 10/03/17 21:10 Lactate Dehydrogenase 562 U/L (333-699) 10/03/17 21:10 Total Creatine Kinase 26 U/L (35-230) L 10/03/17 21:10 Troponin I 0.10 ng/mL D 10/03/17 21:10 NT-Pro-B Natriuret Pep > 43250 pg/mL (0-450) H 10/03/17 21:10 Total Protein 6.1 g/dL (5.8-8.3) 10/03/17 21:10 Albumin 3.7 g/dL (3.0-4.8) 10/03/17 21:10 Globulin 2.4 gm/dL 10/03/17 21:10 Albumin/Globulin Ratio 1.5 (1.1-1.8) 10/03/17 21:10 Influenza Typ A,B (EIA) Negative for flu a/b (NEGATIVE) 10/03/17 20:20 - Constitutional Appears: Well, No Acute Distress - Head Exam Head Exam: ATRAUMATIC, NORMAL INSPECTION, NORMOCEPHALIC - Eye Exam Eye Exam: Normal appearance - ENT Exam ENT Exam: Normal External Ear Exam - Neck Exam Neck Exam: Normal Inspection - Respiratory Exam Respiratory Exam: NORMAL BREATHING PATTERN - Cardiovascular Exam Cardiovascular Exam: absent: JVD - GI/Abdominal Exam GI & Abdominal Exam: absent: Distended - Rectal Exam Rectal Exam: Deferred - Exam Additional comments: Deferred. - Extremities Exam Additional comments: Right distal leg has dressing with mirta bandage. - Back Exam Back Exam: NORMAL INSPECTION - Neurological Exam Neurological Exam: Awake, Oriented x3 - Psychiatric Exam Psychiatric exam: Normal Affect, Normal Mood - Skin Skin Exam: Normal Color Assessment and Plan - Assessment and Plan (Free Text) Assessment: Right distal leg pain. Chest pain. CHF. HTN. COPD. CKD. Anxiety. CHF, HTN, COPD, migraine , hard in hearing , tinitus, hypothyroidism, right ankle chronic wound, right ankle pain, constipation, diverticulosis,anxiety. Plan: Dilaudid 0.5 mg IV x 1. Continue management as per PMD.
[2017-10-04] MEDS ORDERED: Labetalol 5 mg/ml Inj 20ML IVP ONE (05:30)
--- NOTE | 2017-10-04 08:32 | RAD ---
HISTORY: medical clearance COMPARISON: 09/24/2017 FINDINGS: The right-sided dialysis catheter terminates in the right atrium. There is stable appearance of right subclavian and axillary endovascular stent. LUNGS: The lungs are well inflated. There is mild pulmonary venous congestion PLEURA: No significant pleural effusion identified, no pneumothorax apparent. CARDIOVASCULAR: Persistent mild cardiomegaly. Atherosclerotic aortic arch calcifications are present. OSSEOUS STRUCTURES: No significant abnormalities. VISUALIZED UPPER ABDOMEN: Normal. OTHER FINDINGS: There are multiple surgical clips in the soft tissues of the medial arm. IMPRESSION: Mild cardiomegaly and pulmonary venous congestion. No focal consolidation.
[2017-10-04] MEDS: NIFEdipine 90 mg ER Tab PO SCH (12:25)
--- NOTE | 2017-10-04 19:34 | CARD ---
APPROVED REPORT EKG Measurement Heart [id number] <Conclusion> Normal sinus rhythm Biatrial enlargement Left ventricular hypertrophy with repolarization abnormality Abnormal ECG
[2017-10-04 23:54] VITALS: RESP 20
--- NOTE | 2017-10-05 03:58 | HP ---
HISTORY OF PRESENT ILLNESS: The patient is 57-year-old, known to me from multiple previous admissions, came to emergency room because of chest pain, pressure, shortness of breath, felt nauseous and so she called ambulance and she was brought to the emergency room. Denies any fever, no chills. No cough, no congestion. Does complain of shortness of breath. PAST MEDICAL HISTORY: Her past medical history is significant for: 1. Uncontrolled hypertension. 2. End-stage renal disease, on hemodialysis. 3. COPD secondary to smoking that she just quit. 4. Peripheral vascular disease, status post bypass surgery. 5. Right francis ischemic ulcer. 6. Chronic anemia. 7. Pulmonary hypertension. ALLERGIES: SHE IS ALLERGIC TO CIPRO, HYDRALAZINE, VANCO. MEDICATIONS AT HOME: She is on labetalol 300 three times a day, nifedipine 90 mg daily, levothyroxine 75 mcg daily, Pepcid 20 mg daily, Keppra 250 b.i.d., hydromorphone 1 mg q.6, clonidine 0.2 t.i.d. SOCIAL HISTORY: She is single, lives with her son. She used to be a smoker up until few months ago. REVIEW OF SYSTEMS: Significant for generalized weakness, feeling nauseous, complains of headache, generalized body aches and pain and right francis pain. PHYSICAL EXAMINATION: GENERAL: On examination, she is awake, alert, oriented, sitting in bed, has a complaint of aches and pain. VITAL SIGNS: She is afebrile, pulse 74, respirations 19, blood pressure 148/60. LUNGS: Bilateral good airflow. No rhonchi or crackle. HEART: S1, S2 audible. ABDOMEN: Soft, nontender. No rebound. No guarding. NEUROLOGICAL: The patient is awake, alert, oriented, able to communicate. LABORATORY EXAMINATION: WBC 7.7, hemoglobin 12.2, hematocrit 41, platelet of 160. Chemistry: Sodium 137, potassium 4.3, chloride 96, CO2 of 29, BUN 31, creatinine 2.9, blood sugar of 108. Flu test is negative. ASSESSMENT AND PLAN: 1. Uncontrolled hypertension. 2. Chest pain, noncardiac. 3. Endstage renal disease, on hemodialysis. 4. Chronic obstructive pulmonary disease. 5. Pulmonary hypertension. 6. Chronic anemia. 7. Right leg ischemic ulcer. 8. Fluid overload. PLAN: The patient will get hemodialysis in a.m. We will closely observe her blood pressure. Analgesic as needed. We will reevaluate the patient in a.m. Plan discussed with the patient and the patient's nurse . Brittany Coffman MD
[2017-10-05] MEDS ORDERED: Levothyroxine 75 MCG TAB PO SCH (06:00)
[2017-10-05 06:04] VITALS: O2SAT 98
--- NOTE | 2017-10-05 06:33 | CP.PCM.PN ---
Subjective - Date & Time of Evaluation Date of Evaluation: 10/05/17 Time of Evaluation: 06:28 - Subjective Subjective: S:Nurse calls and tells that patient's blood pressure is 168/72. Patient was not given Trandate earlier because of low blood pressure. Patient was seen. Has no complaints of headache, dizziness, heaviness, chest pain. Medical record was reviewed. O:168/72. Not in distress. LUNGS: Normal breathing pattern. A: Elevated blood pressure reading. P: Give Clonidine 0.2 mg PO now instead of at 10:00 AM. Objective - Vital Signs/Intake and Output Vital Signs (last 24 hours): Temp Pulse Resp BP Pulse Ox 97.3 F L 78 20 168/72 H 98 10/05/17 05:58 10/05/17 05:58 10/05/17 05:58 10/05/17 05:58 10/05/17 05:58 Intake and Output: 10/04/17 10/05/17 18:59 06:59 Intake Total 420 Output Total 100 Balance 320 - Medications Medications: Current Medications Clonidine HCl (Catapres) 0.2 mg PO TID [facility] Last Admin: 10/05/17 05:46 Dose: 0.2 mg Famotidine (Pepcid) 20 mg PO DAILY [facility] Hydromorphone HCl (Dilaudid) 1 mg PO Q6 PRN PRN Reason: Pain, moderate (4-7) Last Admin: 10/05/17 05:44 Dose: 1 mg Labetalol HCl (Trandate) 300 mg PO TID [facility] Last Admin: 10/04/17 18:32 Dose: Not Given Levetiracetam (Keppra) 250 mg PO BID [facility] Last Admin: 10/04/17 17:32 Dose: 250 mg Levothyroxine Sodium (Synthroid) 75 mcg PO 0600 [facility] Last Admin: 10/05/17 05:45 Dose: 75 mcg Nifedipine (Procardia Xl) 90 mg PO DAILY [facility] Last Admin: 10/04/17 12:25 Dose: 90 mg Ondansetron HCl (Zofran Tab) 4 mg PO Q6H PRN PRN Reason: Nausea/Vomiting
[2017-10-05 08:40] LABS: HDL CHOLESTEROL 35 mg/dL (29-60)
[2017-10-05 08:51] LABS: LDL CHOLESTEROL 47 mg/dL (0-129)
[2017-10-05 08:52] LABS: TROPONIN I 0.08 ng/mL
[2017-10-05] MEDS: NIFEdipine 90 mg ER Tab PO SCH (10:06)
[2017-10-05 12:18] VITALS: BP 166/66; PULSE 70; TEMP 99.5
--- NOTE | 2017-10-05 23:27 | CON ---
DATE: 10/05/2017 REASON FOR CONSULTATION AND FOLLOWUP: Cardiac evaluation for chest pain, history of coronary artery disease, history of peripheral arterial disease, history of endstage renal disease on dialysis, history of recent intracerebral bleed. BRIEF CLINICAL HISTORY: This is a 57-year-old female with a past medical history of end-stage renal disease, peripheral vascular disease, coronary artery disease, ischemic ulcer on right francis of the tibia, chronic anemia, pulmonary hypertension. She was recently discharged for possible intracerebral bleed, readmitted because of chest pain now. Denies any chest pain now. PAST MEDICAL HISTORY: Significant for diabetes, hypertension, hyperlipidemia, history of non-STEMI, history of PTCA, history of peripheral arterial disease, history of recent intracerebral bleed, history of COPD, history of parathyroid, history of end-stage renal disease. PREVIOUS CARDIAC WORKUP: As follows, the patient had a cardiac catheterization 08/2017, non-ischemic coronary artery disease, last stress test negative. RECENT CARDIAC WORKUP: The patient had a recent non-STEMI, history of PTCA of OM1 drug-eluting stent on 01/12/2017 at [place], history of PAD, history of right SFA occluded, history of left aortofemoral bifem bypass, status post mesenteric angiogram negative for mesenteric artery stenosis, history of right carotid artery stenting at [facility] in 10/2016, uncontrolled hypertension, end-stage renal disease on dialysis, multiple admissions with chest pain, history of recent admission with intracerebral bleed and stabilized and went home. RECENT CARDIAC WORKUP: As follows, last echo did on 01/11/2017, ejection fraction of 65%, mild MR, mild TR, mild AR, [id number] PI, RV systolic pressure of 21. The patient had a recent echo done at [facility], told there was fluid around the heart as well. PAST SURGICAL HISTORY: Significant for carotid artery stenting in 10/2016, history of fem-pop bypass, history of non-STEMI, history of PTCA by Dr. Dieter Fung at [place] on 01/12/2017, history of most recent stress test 08/21/2017, essentially normal myocardial perfusion study, ejection fraction 68% dated 08/21/2017. History of most recent echo on 08/20/2017 showed ejection fraction of 65% to 70%, trace aortic regurgitation, trace to mild mitral regurgitation, and trace to mild tricuspid regurgitation. CURRENT MEDICATIONS: The patient is taking at home clonidine, hydromorphone, Keppra, nifedipine, levothyroxine, labetalol, Zofran. REVIEW OF SYSTEMS: As per HPI. PHYSICAL EXAMINATION: As follows; VITAL SIGNS: Temperature afebrile, heart rate 75, blood pressure 168/72. HEENT: PERRLA intact. NECK: Supple. No carotid bruit or thyromegaly. CHEST: Clear to auscultation. HEART: S1, S2, regular. ABDOMEN: Soft. EXTREMITIES: Clubbing and cyanosis negative. LABORATORY DATA: WBC 7.7, hemoglobin 12.2, hematocrit 41.1, and platelet count 160. Chemistry shows sodium 137, potassium 4.3, chloride 95, carbon dioxide 29, anion gap of 16, BUN 21, and creatinine 2.1. Troponin 0.1, 0.08. TSH 3.74, triglyceride 94, cholesterol 105, LDL 47, HDL 35. EKG showed normal sinus, biatrial enlargement, LVH. IMPRESSION: Chest pain, atypical. No evidence of acute myocardial infarction. Recent stress test in 08/2017 is negative. Ejection fraction of 68%. Most recent echo on 08/20/2017, ejection fraction 65%, trace to mild mitral regurgitation, mild tricuspid regurgitation. No evidence of acute myocardial infarction. History of end-stage renal disease, dialysis, peripheral arterial disease, coronary artery disease status post non-ST elevation myocardial infarction, history of carotid artery stenting. RECOMMENDATION: Aggressive medical treatment. We will discontinue telemetry. No further invasive cardiac workup or noninvasive is planned. Atypical chest pain. Thank you Dr. Coffman for providing us the opportunity in taking care of the patient, Renetta Thakur. Pj Ontiveros MD cc:Brittany Coffman MD
--- NOTE | 2017-10-06 00:16 | CON ---
DATE: 10/05/2017 REASON FOR CONSULTATION: Severe hypertension. HISTORY OF PRESENT ILLNESS: A 57-year-old lady known to me from multiple evaluations. Patient was sent to the emergency room from dialysis on Thursday because patient was complaining of chest tightness. She was complaining of shortness of breath. Her blood pressure at the end of dialysis was 200/107. In the emergency room, patient reported that she had been having midsternal chest pain from earlier in the day. Her pressure was 199/95 at presentation. Patient has a history of recent intracranial bleed, hypertensive bleed. Patient was brought in for observation. Currently, patient is lying in bed. She seems to be comfortable. Her blood pressure is very labile. Her pressure has ranged from 197/100 to 126/65. She denies any chest pain at present. She denies any palpitations. PAST MEDICAL AND SURGICAL HISTORY: Severe hypertension, COPD, pulmonary hypertension, CAD, ESRD, peripheral vascular disease, lower extremity bypass, anemia of chronic kidney disease, anxiety, recent intracranial bleed. FAMILY HISTORY: Hypertension. SOCIAL HISTORY: Ex-smoker, no alcohol use, no IV drug abuse. ALLERGIES: CIPROFLOXACIN, HYDRALAZINE, VANCOMYCIN. CURRENT MEDICATIONS: Clonidine 0.2 t.i.d., Dilaudid 1 mg q. 6, Keppra 250 b.i.d., Pepcid 20, Procardia XL 90, Synthroid 75, labetalol 300 t.i.d., lisinopril 40 mg daily? REVIEW OF SYSTEMS: All systems are reviewed, pertinent positives as mentioned in the history of presenting illness, rest unremarkable. PHYSICAL EXAMINATION: GENERAL: Middle-aged lady lying in bed. VITAL SIGNS: Blood pressure 166/66, heart rate 70, respiratory rate 18, temperature 99.5. HEENT: Normocephalic, atraumatic. NECK: Supple, no JVD. LUNGS: Bilateral equal entry, bilateral equal expansion. CARDIAC: S1, S2. Regular rate and rhythm. No murmur, no rub. ABDOMEN: Distended, soft, nontender, bowel sounds present. EXTREMITIES: No lower extremity edema. LABORATORY DATA: WBC 7.7, hemoglobin 12, hematocrit 41, platelets 160. Sodium 137, potassium 4.3, chloride 96, CO2 of 29, BUN 21, creatinine 2.9, glucose 108, calcium 9.9, magnesium 1.9. AST 19, ALT 22. BNP greater than 35,000. TSH 4.8. ASSESSMENT: 1. Uncontrolled hypertension. 2. Chest pain. 3. End-stage renal disease. 4. Chronic obstructive pulmonary disease. 5. Pulmonary hypertension. 6. Peripheral vascular disease. 7. Chronic anemia. PLAN: 1. Dry ultrafiltration today. 2. Dialysis tomorrow. 3. Continue current antihypertensives. 4. Monitor for chest pain. Tamanna Smith MD
--- NOTE | 2017-10-06 05:24 | DS ---
HISTORY OF PRESENT ILLNESS: The patient is a 57-year-old, who came to the emergency room because of chest pain, shortness of breath. The patient said she was in intractable pain. Because of palpitation and chest pain, she came to emergency room for further evaluation, was given antihypertensive, did well, still has some right leg pain but better than before. PHYSICAL EXAMINATION: VITAL SIGNS: She is afebrile, pulse 70, respirations of 20, blood pressure of 166/66. LUNGS: Bilateral fair airflow. No rhonchi or crackle. HEART: S1 and S2 audible. ABDOMEN: Soft. Nontender. No rebound. No guarding. NEUROLOGIC: The patient is awake, alert, oriented, able to communicate. EXTREMITIES: On right leg francis, she has bone graft done and skin graft done. LABORATORY DATA: TSH is 4.83, LDH is 364, CPK 20, troponin is 0.08, flu test is negative. ASSESSMENT AND PLAN: 1. Controlled hypertension. 2. Pulmonary hypertension. 3. Chronic obstructive pulmonary disease. 4. Status post right carotid angioplasty. 5. Probably noncompliance. I tried the patient multiple times that she should bring her bottles, so I can review them probably, some medicine is missing that is why her blood pressure shoots up and she ends up coming to the ER. Nurse practitioner, Nic, was supposed to monitor that who asked her son to bring and have the medications checked. Brittany Coffman MD
== END 2017-10-05 17:00 | disposition home or self-care (01) ==
LOC: ED 17:04 → ERH 23:07 → 3RSO 10-04 01:50
PROVIDERS: ADMIT Internal Medicine; ATTEND Internal Medicine
DX: R07.89 Other chest pain (principal); E11.51 Type 2 diabetes mellitus with diabetic peripheral angiopathy without gangrene; I27.20 Pulmonary hypertension, unspecified; I25.10 Atherosclerotic heart disease of native coronary artery without angina pectoris; L97.819 Non-pressure chronic ulcer of other part of right lower leg with unspecified severity; E11.22 Type 2 diabetes mellitus with diabetic chronic kidney disease; N18.6 End stage renal disease; Z99.2 Dependence on renal dialysis; Z98.61 Coronary angioplasty status; J44.9 Chronic obstructive pulmonary disease, unspecified; I25.2 Old myocardial infarction; E78.5 Hyperlipidemia, unspecified; I13.2 Hypertensive heart and chronic kidney disease with heart failure and with stage 5 chronic kidney disease, or end stage renal disease; I50.9 Heart failure, unspecified; Z87.891 Personal history of nicotine dependence; D63.1 Anemia in chronic kidney disease; K59.00 Constipation, unspecified; F41.9 Anxiety disorder, unspecified; E03.9 Hypothyroidism, unspecified; H91.90 Unspecified hearing loss, unspecified ear; G43.909 Migraine, unspecified, not intractable, without status migrainosus; Z79.02 Long term (current) use of antithrombotics/antiplatelets; Z88.1 Allergy status to other antibiotic agents
CPT/HCPCS: 36415; 71045; 80053; 80061; 82550; 83036; 83615; 83735; 83880; 84443; 84484; 85025; 87804; 93005; 96374; 99285; G0378; J1170; J2270

== ENCOUNTER 2017-10-15 04:09 | Inpatient (IN) | payer MEDICARE, MEDICAID, OTHER ==
--- NOTE | 2017-10-15 04:36 | ED PDOC ---
Arrival/HPI - General Chief Complaint: Chest Pain Time Seen by Provider: 10/15/17 04:17 Historian: Patient - History of Present Illness Narrative History of Present Illness (Text): 10/15/17 04:35 A 57 year old female, whose past medical history includes ESRD (dialysis Tues, Thurs, Sat), hypertension, diabetes and CHF for volume overload in the past, presents to the emergency department complaining of chest pain for the past two hours and difficulty breathing. Describes pain as burning sensation. Reports she called EMS who gave patient Aspirin. Patient is wheelchair bound. Patient reports she hasn't missed dialysis treatment. Patient denies any fever, chills or any other complaints at this time. Time/Duration: 1-3 hours Symptom Onset: Sudden Symptom Course: Unchanged Activities at Onset: Rest Context: Home Past Medical History - Provider Review Nursing Documentation Reviewed: Yes - Past History Past History: No Previous - Infectious Disease Hx of Infectious Diseases: None - Tetanus Immunization Tetanus Immunization: Unknown - Cardiac Hx Cardiac Disorders: Yes Hx Congestive Heart Failure: Yes Hx Hypertension: Yes - Pulmonary Hx Chronic Obstructive Pulmonary Disease (COPD): Yes - Neurological Hx Neurological Disorder: Yes (numbness ble when ambulating) Hx Migraine: Yes Other/Comment: cold extremities - HEENT Hx HEENT Disorder: Yes (hard of hearing) Hx Blind: No Hx Cataracts: No Hx Deafness: No Hx Difficulty Chewing: No Hx Epistaxis: No Hx Glaucoma: No Hx Macular Degeneration: No Other/Comment: tinnitus, - Renal Hx Renal Failure: Yes - Endocrine/Metabolic Hx Hypothyroidism: Yes - Hematological/Oncological Hx Cancer: No - Integumentary Hx Dermatological Disorder: No (non healing sugical wound to right ankle) Other/Comment: r ankle wound cared for by dr parada at wound center, pt does not want dressing removed for assesment, wound 1.5cm x 0.7cm stage 1 wound to right buttocks red and open to air, multiple skin discolorations to ble - Musculoskeletal/Rheumatological Hx Falls: No - Gastrointestinal Hx Gastrointestinal Disorders: Yes (FECAL IMPACTION,CONSTIPATION,POOR APPETITE, GASTRITIS) Hx Diverticulitis: Yes Other/Comment: poor appetite weight loss, diverticulosis, bloating - Genitourinary/Gynecological Hx Genitourinary Disorders: Yes (voids very little) - Psychiatric Hx Psychophysiologic Disorder: Yes Hx Anxiety: Yes Hx Bipolar Disorder: No Hx Depression: No Hx Emotional Abuse: No Hx Hallucinations: No Hx Panic Disorder: No Hx Post Traumatic Stress Disorder: No Hx Psychosis: No Hx Physical Abuse: No Hx Schizophrenia: No Hx Sexual Abuse: No Hx Substance Use: No - Past Surgical History Past Surgical History: Unable to Obtain - Surgical History Hx Mastectomy: No - Anesthesia Hx Anesthesia: Yes Hx Anesthesia Reactions: No Hx Malignant Hyperthermia: No - Suicidal Assessment Feels Threatened In Home Enviroment: No Family/Social History - Physician Review Nursing Documentation Reviewed: Yes Family/Social History: No Known Family HX Smoking Status: Former Smoker Hx Alcohol Use: No Hx Substance Use: No Hx Substance Use Treatment: No Allergies/Home Meds Allergies/Adverse Reactions: Allergies ciprofloxacin Allergy (Verified 10/03/17 17:11) RASH hydralazine Allergy (Verified 10/03/17 17:11) RASH vomiting vancomycin Allergy (Verified 10/03/17 17:11) SHORTNESS OF BREATH palpitations ct dye Allergy (Uncoded 10/03/17 17:11) RASH Home Medications: Home Meds Medication Instructions Recorded Confirmed Clopidogrel [Plavix] 75 mg PO DAILY 10/05/17 Docusate [Colace] 100 mg PO TID 10/05/17 10/05/17 Lisinopril [Zestril] 40 mg PO DAILY 10/05/17 10/05/17 NIFEdipine ER [Procardia XL] 90 mg PO DAILY 10/05/17 10/05/17 Polyethylene Glycol 3350 [Miralax] 17 gm PO BID 10/05/17 10/05/17 Sildenafil [Revatio] 20 mg PO DAILY 10/05/17 10/05/17 Review of Systems - Physician Review All systems were reviewed & negative as marked: Yes - Review of Systems Constitutional: absent: Fevers, Other (chills) Respiratory: SOB Cardiovascular: Chest Pain Physical Exam Vital Signs Reviewed: Yes Vital Signs Temp Pulse Resp BP Pulse Ox 10/15/17 05:46 102 H 18 148/126 H 99 10/15/17 04:26 112 H 18 248/116 H 98 10/15/17 04:23 97.9 F Temperature: Afebrile Appearance: Positive for: Well-Appearing, Non-Toxic, Comfortable Pain Distress: None Mental Status: Positive for: Alert and Oriented X 3 - Systems Exam Head: Present: Atraumatic, Normocephalic Pupils: Present: PERRL Extroacular Muscles: Present: EOMI Conjunctiva: Present: Normal Mouth: Present: Moist Mucous Membranes Neck: Present: Normal Range of Motion. No: JVD Respiratory/Chest: Present: Clear to Auscultation, Good Air Exchange. No: Respiratory Distress, Accessory Muscle Use, Wheezes, Rales Cardiovascular: Present: Regular Rate and Rhythm, Normal S1, S2. No: Murmurs Abdomen: Present: Normal Bowel Sounds. No: Tenderness, Distention, Peritoneal Signs Back: Present: Normal Inspection Upper Extremity: Present: Normal Inspection. No: Cyanosis, Edema Lower Extremity: Present: Other (non healing wound on right leg, near ankle and medial malleolus). No: Edema Neurological: Present: GCS=15, CN II-XII Intact, Speech Normal Skin: Present: Warm, Dry, Normal Color, Other (cut on right thumb, bandaged). No: Rashes Psychiatric: Present: Alert, Oriented x 3, Normal Insight, Normal Concentration Medical Decision Making ED Course and Treatment: 10/15/17 04:32 Impression: A 57 year old female with chest pain and difficulty breathing. Plan: -- EKG -- chest xray -- labs -- Nitroglycerin, Lopressor -- Reassess and disposition Prior Visits: Notes and results from previous visits were reviewed. Patient was last seen in the emergency department on 10/03/17 for evaluation of chest pain. Patient was admitted to telemetry. Progress Notes: EKG: Ordered, reviewed, and independently interpreted the EKG. Rate : 102 BPM Rhythm : sinus tachycardia Interpretation : LVH 10/15/17 05:38 Chest xray: Stable when compared with film taken on 10/03/17; cardiomegaly, no CHF. Patient has dialysis catheter on right subclavian, as read by me. 10/15/17 06:[address] Coffman, who agrees and accepts patient to be admitted to telemetry under her service with Dr. Smith on consult. - Lab Interpretations Lab Results: 10/15/17 05:02 10/15/17 05:05 Lab Results 10/15/17 05:05: Sodium 140, Potassium 5.1 H, Chloride 95 L, Carbon Dioxide 32, Anion Gap 18, BUN 41 H, Creatinine 5.2 H, Est GFR ( Amer) 10, Est GFR ( Non-Af Amer) 9, Random Glucose 106, Calcium 10.2, Total Bilirubin 0.7, AST 62 H D, ALT 23, Alkaline Phosphatase 113, Lactate Dehydrogenase 766 H, Total Creatine Kinase 44, Troponin I Pending, NT-Pro-B Natriuret Pep Pending, Total Protein 6.7, Albumin 4.0, Globulin 2.6, Albumin/Globulin Ratio 1.5 10/15/17 05:05: PT 11.4, INR 0.99 10/15/17 05:02: WBC 6.0 D, RBC 3.79, Hgb 10.6 L, Hct 36.1, MCV 95.3, MCH 28.0, MCHC 29.4 L, RDW 16.4 H, Plt Count 272, MPV 11.5 H, Gran % 70.0 H, Lymph % (Auto ) 18.7 L, Bond % (Auto) 9.2 H, Eos % (Auto) 1.8, Baso % (Auto) 0.3, Gran # 4.19 , Lymph # (Auto) 1.1 L, Bond # (Auto) 0.6, Eos # (Auto) 0.1, Baso # (Auto) 0.02 I have reviewed the lab results: Yes - RAD Interpretation Radiology Orders: 10/15/17 04:28 CHEST PORTABLE [RAD] Stat - EKG Interpretation Interpreted by ED Physician: Yes Type: 12 lead EKG - Medication Orders Current Medication Orders: Discontinued Medications Metoprolol Tartrate (Lopressor) 25 mg PO STAT STA Stop: 10/15/17 04:29 Last Admin: 10/15/17 04:44 Dose: 25 mg Metoprolol Tartrate (Lopressor) 5 mg IVP STAT STA Stop: 10/15/17 06:01 Metoprolol Tartrate (Lopressor) 5 mg IVP STAT STA Stop: 10/15/17 06:01 Nitroglycerin (Nitrostat Sl Tab) 0.4 mg SL STAT STA Stop: 10/15/17 04:29 Last Admin: 10/15/17 04:44 Dose: 0.4 mg - PA / CARD TAPE CONVERTER OPERATOR / Resident Statement MD/DO has reviewed & agrees with the documentation as recorded. - Scribe Statement The provider has reviewed the documentation as recorded by the Jayleen Carcamo Provider Scribe Attestation: All medical record entries made by the Scribe were at my direction and personally dictated by me. I have reviewed the chart and agree that the record accurately reflects my personal performance of the history, physical exam, medical decision making, and the department course for this patient. I have also personally directed, reviewed, and agree with the discharge instructions and disposition. Disposition/Present on Arrival - Present on Arrival Any Indicators Present on Arrival: Yes History of DVT/PE: No History of Uncontrolled Diabetes: Yes Urinary Catheter: No History of Decub. Ulcer: No History Surgical Site Infection Following: None - Disposition Have Diagnosis and Disposition been Completed?: Yes Diagnosis: Hypertensive crisis, ESRD (end stage renal disease) on dialysis, Anemia of renal disease, Shortness of breath, Chest pain Disposition: HOSPITALIZED Disposition Time: 06:28 Patient Plan: Admission Condition: IMPROVED Discharge Instructions (ExitCare): Chest Pain (ED) Forms: [facility] (Guamanian)
[2017-10-15 05:19] LABS: BASO # 0.02 K/mm3 (0.0-2.0); BASO % 0.3 % (0.0-3.0); EOS # 0.1 (0.0-0.7); EOS % 1.8 % (1.5-5.0); GRAN # 4.19 (1.4-6.5); HEMOGLOBIN 10.6 g/dL (12.0-16.0); LYMPH # 1.1 (1.2-3.4); LYMPH % 18.7 % (22.0-35.0); MEAN CELL VOLUME 95.3 fl (80.0-105.0); MEAN CORPUSCULAR HGB CONC 29.4 g/dl (31.0-37.0); MEAN PLATELET VOLUME 11.5 fl (7.0-11.0); MONO # 0.6 (0.1-0.6); MONO % 9.2 % (1.0-6.0); RBC 3.79 10^6/uL (3.5-6.1); RED CELL DISTRIBUTION WIDTH 16.4 % (11.5-14.5)
[2017-10-15 05:28] LABS: INR 0.99 (0.93-1.08); PROTHROMBIN TIME 11.4 SECONDS (9.4-12.5)
[2017-10-15 05:37] LABS: ALB/GLOB RATIO 1.5 (1.1-1.8); CALCIUM 10.2 mg/dL (8.4-10.5)
[2017-10-15] MEDS ORDERED: Metoprolol 1 mg/ml Inj IVP STA ×3 (06:00→07:13)
[2017-10-15] MEDS ORDERED: Albuterol 0.083% Inhal Sol (2.5 mg/3 mL) UD INH STA (06:33)
[2017-10-15 07:03] LABS: TROPONIN I 0.11 ng/mL
--- NOTE | 2017-10-15 10:07 | RAD ---
HISTORY: chest pain and difficulty breathing COMPARISON: 10/03/2017 FINDINGS: LUNGS: No active pulmonary disease. PLEURA: No significant pleural effusion identified, no pneumothorax apparent. CARDIOVASCULAR: Mild cardiomegaly. Right tunneled central venous dialysis catheter. Right subclavian/ axillary/ brachials vascular stent. OSSEOUS STRUCTURES: No significant abnormalities. VISUALIZED UPPER ABDOMEN: Normal. OTHER FINDINGS: None. IMPRESSION: No active disease.
[2017-10-15 14:30] VITALS: BMI 21.5
[2017-10-15] MEDS ORDERED: Pneumococcal 23-Valent Vaccine IM ONE (14:30)
[2017-10-15] MEDS ORDERED: Influenza Vaccine 60 mcg/0.5 mL SYR (4YR UP) IM ONE (14:30)
[2017-10-15] MEDS: Sildenafil 20 MG TAB PO SCH (14:47)
[2017-10-15] MEDS: NIFEdipine 90 mg ER Tab PO SCH (14:48)
[2017-10-15] MEDS: POLYETHYLENE GLYCOL 3350 17 GM/Dose PACKET PO SCH (17:38)
[2017-10-15] MEDS: Oxycodone/Acetaminophen 5/325 mg Tab PO PRN (17:38)
--- NOTE | 2017-10-15 18:11 | CARD ---
APPROVED REPORT EKG Measurement Heart [id number] <Conclusion> Sinus tachycardia Possible Left atrial enlargement Left ventricular hypertrophy with repolarization abnormality Abnormal ECG
[2017-10-15] MEDS: Albuterol-Ipratrop 3 mg / 0.5 (3 ml) UD IH SCH (21:07)
[2017-10-15] MEDS ORDERED: Lidocaine 5% Patch TD ONE (22:02)
--- NOTE | 2017-10-15 22:20 | HP ---
HISTORY OF PRESENT ILLNESS: The patient is 57 years old, known to me from multiple previous admissions, came to the emergency room because of chest pressure, headache, shortness of breath and feeling nauseous, threw up multiple times. Complained of retrosternal and epigastric burning, so she called ambulance and she was brought to emergency room. PAST MEDICAL HISTORY: Significant for; 1. Right carotid angioplasty. 2. History of end-stage renal disease, on hemodialysis. 3. Hypertension. 4. Peptic ulcer disease. 5. Bilateral leg ischemia, status post bypass surgery. 6. Right francis skin ulcer. 7. Deconditioning and difficulty walking. 8. Anxiety disorder. 9. History of pulmonary hypertension. ALLERGIES: SHE IS ALLERGIC TO CIPRO, HYDRALAZINE AND VANCOMYCIN AND IV CONTRAST DYE. MEDICATIONS AT HOME: She is on Keppra 250 b.i.d., clonidine 0.2 t.i.d., Revatio 20 mg daily, MiraLax 17 g daily, nifedipine 90 mg daily, lisinopril 40 mg daily, levothyroxine 75 mcg daily, labetalol 300 three times a day, Pepcid 20 mg daily, Colace 100 t.i.d. and Plavix 75 daily. SOCIAL HISTORY: She used to be a smoker up until last year. Denies alcohol use. Denies drug use. REVIEW OF SYSTEMS: Significant for feeling nauseous, epigastric discomfort, retrosternal discomfort. PHYSICAL EXAMINATION: GENERAL: She is awake, alert, oriented, able to communicate. VITAL SIGNS: The patient is afebrile, pulse 84, respirations 18, blood pressure 246/94. LUNGS: Bilateral good airflow. No rhonchi or crackle. HEART: S1 and S2 audible. ABDOMEN: Soft. Nontender. No rebound. No guarding. NEUROLOGIC: The patient is awake, alert, oriented, communicative. LABORATORY EXAM: WBC 6.0, hemoglobin 10.6, hematocrit 36, platelet of 272. PT 11.4, INR 0.99. Chemistry: Sodium 140, potassium 5.1, chloride 95, CO2 of 32, BUN 41, creatinine 5.2, blood sugar of 106. LFT shows AST 62, ALT 23, LDH is 766, BNP 342,000. ASSESSMENT AND PLAN: 1. Uncontrolled hypertension. 2. Pulmonary edema secondary to end-stage renal disease. The patient had dialysis done earlier this morning. 3. Peptic ulcer disease. So I will add Norvasc to her regimen. Continue her on clonidine. I will request for nebulizer treatment. I will start her on Zofran as needed. We will need to have blood pressure closely and we will reevaluate the patient in the a.m. If her blood pressure is under control, might discharge. Brittany Coffman MD
[2017-10-16] MEDS: Oxycodone/Acetaminophen 5/325 mg Tab PO PRN ×2 (00:40→17:35)
--- NOTE | 2017-10-16 01:51 | CON ---
DATE: 10/15/2017 REASON FOR CONSULTATION: Severe hypertension, chest tightness, nausea, vomiting. HISTORY OF PRESENTING ILLNESS: A 57-year-old lady, known to me from multiple prior evaluations. The patient presented to the emergency room early this morning with complaints of nausea and vomiting for 3 days. She reports that she has been retching and vomiting. She denies any diarrhea. She denies any constipation. She complains of epigastric pain. She reports chest tightness. She denies any shortness of breath. She complains of headaches. She denies any fevers, chills. She denies any cough. In the emergency room, she was found to have a blood pressure of 240/116, heart rate of 82. She was found to be afebrile. She is sent for urgent dialysis. She is currently seen on dialysis. She complains of being weak. PAST MEDICAL AND SURGICAL HISTORY: Severe hypertension, pulmonary hypertension, CAD, CHF, COPD, ESRD, peripheral vascular disease, anemia, anxiety, recurrent hospital visits. FAMILY HISTORY: Hypertension. SOCIAL HISTORY: Ex-smoker, no alcohol use, no IV drug abuse. ALLERGIES: CIPROFLOXACIN, HYDRALAZINE, VANCOMYCIN. CURRENT MEDICATIONS: Clonidine 0.2 t.i.d., Colace, DuoNeb, Keppra, MiraLax, amlodipine 10, Percocet, Plavix, Procardia XL 90, Protonix, Revatio, Synthroid, labetalol 300 t.i.d., lisinopril 40, Zofran. REVIEW OF SYSTEMS: All systems are reviewed, pertinent positives as mentioned in the history of presenting illness, rest unremarkable. PHYSICAL EXAMINATION: GENERAL: Middle-aged lady, sitting in chair in the dialysis unit, in moderate distress. VITAL SIGNS: Blood pressure 246/94, heart rate 84, respiratory rate 18, temperature 97.9. HEENT: Normocephalic, atraumatic, positive pallor. NECK: Supple, no JVD. LUNGS: Bilateral equal air entry, no rales. CARDIAC: S1 and S2, regular rate and rhythm, no murmur, no rub. ABDOMEN: Distended, soft, nontender, bowel sounds present. EXTREMITIES: No lower extremity edema. INTAKE AND OUTPUT: Not charted. LABORATORY DATA: WBC 6, hemoglobin 10.6, hematocrit 36, platelets 272. Sodium 140, potassium 5.1, chloride 95, CO2 of 32, BUN 41, creatinine 5.2, glucose 106, calcium 10.2, AST 62, ALT 23. BNP 342,000, albumin 4. Chest x-ray clear. ASSESSMENT: 1. Hypertensive emergency. 2. Nausea, vomiting. 3. Chest tightness secondary to severe hypertension. 4. Elevated BNP, but chest x-ray is clear. 5. End-stage renal disease. PLAN: 1. Urgent dialysis. 2. Clonidine 0.2 mg given stat. 3. Restart all outpatient medications. 4. GI evaluation. 5. Cardiology evaluation? Tamanna Smith MD
[2017-10-16] MEDS: Albuterol-Ipratrop 3 mg / 0.5 (3 ml) UD IH SCH ×3 (02:35→13:38)
[2017-10-16] MEDS ORDERED: Levothyroxine 75 MCG TAB PO SCH (06:00)
[2017-10-16 06:30] VITALS: RESP 18; O2SAT 93
[2017-10-16] MEDS ORDERED: Pantoprazole 40 mg EC Tab PO SCH (06:30)
[2017-10-16] MEDS: POLYETHYLENE GLYCOL 3350 17 GM/Dose PACKET PO SCH ×2 (09:20→17:20)
[2017-10-16] MEDS: Sildenafil 20 MG TAB PO SCH (09:20)
[2017-10-16] MEDS: NIFEdipine 90 mg ER Tab PO SCH (09:21)
[2017-10-16] MEDS ORDERED: HYDROmorphone 0.5 mg/0.5 ml ISec IVP STA (12:00)
--- NOTE | 2017-10-16 12:48 | CP.PCM.CON ---
<Dolores Fung - Last Filed: 10/16/17 12:44> History of Present Illness - History of Present Illness History of Present Illness: 57 year old female with PMHx end-stage renal disease on dialysis, hypertension, CHF, peptic ulcer disease, chronic anemia was seen and evaluated at bedside for right arterial leg ulceration. Patient reports that she came to the hospital for constant vomiting and elevated blood pressure. Patient reports that she follows up with Dr. Blanton for the wound and was last seen in the wound care center about 2 weeks ago. Patient denies of having any pain due to the wound on her leg; only painful when someone touches it. Patient denies any further pedal complaints. Denies F/C/CP/SOB/D/posterior calf pain Review of Systems - Constitutional Constitutional: As Per HPI Past Patient History - Infectious Disease Hx of Infectious Diseases: None - Tetanus Immunizations Tetanus Immunization: Unknown - Past Social History Smoking Status: Former Smoker - CARDIAC Hx Cardiac Disorders: Yes Hx Congestive Heart Failure: Yes Hx Hypertension: Yes - PULMONARY Hx Respiratory Disorders: Yes (USED TO SMOKE 4 CIG A DAY.) Hx Chronic Obstructive Pulmonary Disease (COPD): Yes Hx Pneumonia: Yes Hx Sleep Apnea: Yes - NEUROLOGICAL Hx Neurological Disorder: Yes (numbness ble when ambulating,RIGHT HAND NUMB) Hx Migraine: Yes Other/Comment: cold extremities - HEENT Hx HEENT Problems: Yes (hard of hearing,RIGHT EAR DEAF) Hx Blind: No Hx Cataracts: No Hx Deafness: No Hx Difficulty Chewing: No Hx Epistaxis: No Hx Glaucoma: No Hx Macular Degeneration: No Other/Comment: tinnitus, - RENAL Hx Chronic Kidney Disease: Yes (OLIGURIA) Hx Dialysis: Yes ([facility]) Date of Last Dialysis Treatment: 10/15/17 Hx Renal Failure: Yes - ENDOCRINE/METABOLIC Hx Endocrine Disorders: Yes Hx Hypothyroidism: Yes - HEMATOLOGICAL/ONCOLOGICAL Hx Blood Disorders: No Hx Cancer: No - INTEGUMENTARY Hx Dermatological Problems: No (non healing sugical wound to right ankle) Other/Comment: r ankle wound,non healing surgical wound cared for by dr blanton at wound center, wound 5.5 X 3.5 cm ,right buttocks red and open to air, SCARRED AREA.multiple skin discolorations to ble,EDEMA +1.Left thumb area with a 0.7 scabbed wound from rubbing to wheelchair. - MUSCULOSKELETAL/RHEUMATOLOGICAL Hx Musculoskeletal Disorders: Yes Hx Falls: Yes Hx Unsteady Gait: Yes (CANE,WALKER,WHEELCHAIR) - GASTROINTESTINAL Hx Gastrointestinal Disorders: Yes (FECAL IMPACTION,CONSTIPATION,POOR APPETITE, GASTRITIS) Hx Diverticulitis: Yes Other/Comment: poor appetite weight loss, diverticulosis, bloating, gastroenteritis - GENITOURINARY/GYNECOLOGICAL Hx Genitourinary Disorders: Yes (voids very little,ovarian cyst) - PSYCHIATRIC Hx Psychophysiologic Disorder: Yes Hx Anxiety: Yes Hx Bipolar Disorder: No Hx Depression: No Hx Emotional Abuse: No Hx Hallucinations: No Hx Panic Symptoms: No Hx Post Traumatic Stress Disorder: No Hx Psychosis: No Hx Physical Abuse: No Hx Schizophrenia: No Hx Sexual Abuse: No Hx Substance Use: No - SURGICAL HISTORY Hx Surgeries: Yes (UDALL RIGHT CHEST WALL.) Hx Mastectomy: No - ANESTHESIA Hx Anesthesia: Yes Hx Anesthesia Reactions: No Hx Malignant Hyperthermia: No Meds Home Medications: Home Medication List Medication Instructions Recorded Confirmed Type amLODIPine [Norvasc] 10 mg PO DAILY #30 tab 10/16/17 Rx amLODIPine [Norvasc] 10 mg PO DAILY 30 Days #30 tab 10/16/17 Rx Allergies/Adverse Reactions: Allergies Allergy/AdvReac Type Severity Reaction Status Date / Time ciprofloxacin Allergy RASH Verified 10/15/17 13:47 hydralazine Allergy RASH Verified 10/15/17 13:47 vancomycin Allergy SHORTNESS Verified 10/15/17 13:[address] dye Allergy RASH Uncoded 10/15/17 13:47 - Medications Medications: Current Medications Albuterol/Ipratropium (Duoneb 3 Mg/0.5 Mg (3 Ml) Ud) 3 ml IH [id number] [facility] Last Admin: 10/16/17 07:50 Dose: 3 ml Amlodipine Besylate (Norvasc) 10 mg PO DAILY [facility] Last Admin: 10/16/17 09:20 Dose: 10 mg Clonidine HCl (Catapres) 0.2 mg PO TID [facility] Last Admin: 10/16/17 09:21 Dose: 0.2 mg Clopidogrel Bisulfate (Plavix) 75 mg PO DAILY [facility] Last Admin: 10/16/17 09:21 Dose: 75 mg Docusate Sodium (Colace) 100 mg PO TID [facility] Last Admin: 10/16/17 09:21 Dose: 100 mg Labetalol HCl (Trandate) 300 mg PO TID [facility] Last Admin: 10/16/17 09:21 Dose: 300 mg Levetiracetam (Keppra) 250 mg PO BID [facility] Last Admin: 10/16/17 09:21 Dose: 250 mg Levothyroxine Sodium (Synthroid) 75 mcg PO 0600 [facility] Last Admin: 10/16/17 05:46 Dose: 75 mcg Lisinopril (Zestril) 40 mg PO DAILY [facility] Last Admin: 10/16/17 09:21 Dose: 40 mg Nifedipine (Procardia Xl) 90 mg PO DAILY [facility] Last Admin: 10/16/17 09:21 Dose: 90 mg Ondansetron HCl (Zofran Inj) 4 mg IVP Q6H PRN PRN Reason: Nausea/Vomiting Last Admin: 10/16/17 11:57 Dose: 4 mg Oxycodone/Acetaminophen (Percocet 5/325 Mg Tab) 2 tab PO Q6H PRN PRN Reason: Pain, moderate (4-7) Stop: 10/18/17 16:16 Last Admin: 10/16/17 00:40 Dose: 2 tab Pantoprazole Sodium (Protonix Ec Tab) 40 mg PO 0630 [facility] Last Admin: 10/16/17 05:46 Dose: 40 mg Polyethylene Glycol (Miralax) 17 gm PO BID [facility] Last Admin: 10/16/17 09:20 Dose: Not Given Sildenafil Citrate (Revatio) 20 mg PO DAILY [facility] Last Admin: 10/16/17 09:20 Dose: 20 mg Physical Exam - Constitutional Appears: Well, Non-toxic, No Acute Distress - Extremities Exam Extremities exam: Negative for: calf tenderness Additional comments: Vasc: DP/PT pulses palpable 2/4 B/L. Skin temperature warm to warm from proximal to distal. CFT < 3 seconds to all digits B/L. 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 Base is fibrogranular with no evidence of periwound erythema. New granulation tissue present in wound bed. Evidence of re-epithelialization is noted to wound edges. No malodor, no purulence, no tunneling, tracking, undermining, probe to bone or fluctuance. No maceration, xerosis, abnormal pigmentation or abnormal growths noted to b/l LE. Left heel exhibits stage 1 pressure ulceration with erythema, improving. Neuro: Epicritic and protective sensation grossly intact B/L Ortho: Mild tenderness to palpation to right leg ulcerations. 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 Forte Labs and vitals reviewed- afebrile, WBC 6.0 as of yesterday Patient's right leg ulcer cleansed with saline soaked gauze and dressed with Optifoam Left heel stage 1 ulcer dressed with Optifoam Wound appear non-infected at this time Multipodus boots ordered - to be worn at all times in bed Podiatry will continue to follow while patient in house Thank you for the podiatry consult and allowing to take part in patient care - Date & Time Date: 10/16/17 Time: 12:56 <Dougie Forte - Last Filed: 10/17/17 08:17> Results - Vital Signs Recent Vital Signs: Last Vital Signs Temp 98 F 10/16/17 18:00 Pulse 74 10/16/17 18:00 Resp 18 10/16/17 18:00 BP 98/45 L 10/16/17 18:00 Pulse Ox 93 L 10/16/17 06:00 - Labs Result Diagrams: 10/15/17 05:02 10/15/17 05:05 Attending/Attestation - Attestation I have personally seen and examined this patient.: Yes I have fully participated in the care of the patient.: Yes I have reviewed all pertinent clinical information: Yes
[2017-10-16 17:24] VITALS: BP 98/45
--- NOTE | 2017-10-16 17:26 | PN ---
DATE: 10/16/2017 SUBJECTIVE: The patient is seen, lying in bed. She is awake. She is alert. She reports feeling better. She is still nauseous, but not vomiting. PHYSICAL EXAMINATION: GENERAL: Middle-aged lady, lying in bed. VITAL SIGNS: Blood pressure 146/66, heart rate 79, respiratory rate 18, and temperature 98.2. HEENT: Normocephalic, atraumatic. NECK: Supple, no JVD. LUNGS: Bilateral equal air entry, rales. CARDIAC: S1 and S2, regular rate and rhythm, no murmur, no rub. ABDOMEN: Distended, soft, positive tenderness in the epigastrium, bowel sounds present. EXTREMITIES: No lower extremity edema, dressing of the right leg. LABORATORY DATA: No new labs. MEDICATIONS: List reviewed. Patient is on Zofran 4 mg IV q. 6 hours. ASSESSMENT: 1. Hypertensive emergency, resolved. 2. Nausea, vomiting, epigastric pain. 3. End-stage renal disease. 4. Chest tightness secondary to severe hypertension, resolved. PLAN: 1. Continue antiemetic. 2. Continue current antihypertensives. 3. Next dialysis tomorrow. 4. No objection to discharge. Tamanna Smith MD
[2017-10-16 18:15] VITALS: PULSE 74; TEMP 98
[2017-10-16] MEDS ORDERED: Lidocaine 5% Patch TD ONE (21:46)
--- NOTE | 2017-10-17 10:49 | DS ---
The patient is a 57-year-old who came in because of feeling nauseous, headache, was found to have high blood pressure of 203/97. She was given antihypertensive. The patient received hemodialysis. Blood pressure nicely came down. When I saw this morning, she complained of nausea. She was give Zofran, after that she was able to consume all her lunch, did well. PHYSICAL EXAMINATION VITAL SIGNS: She is afebrile. Pulse 84, respirations 18, blood pressure 98/45. LUNGS: Bilateral fair air flow. No rhonchi or crackle. HEART: S1 and S2 audible. ABDOMEN: Soft, nontender. No rebound. No guarding. NEUROLOGICAL: She is awake, alert, oriented, able to communicate. EXTREMITIES: Her right francis is in the dressing. Wound seems to be healing. ASSESSMENT AND PLAN 1. Uncontrolled hypertension. 2. End stage renal disease, on hemodialysis. 3. Pulmonary hypertension. 4. Chronic obstructive pulmonary disease. 5. Deconditioning and difficulty walking. PLAN: The patient is being discharge home today. She is on clonidine 0.2 mg twice a day. She is on Keppra 250 mg b.i.d. She is on labetalol 300 twice a day, Norvasc 10 mg daily. I will discontinue her Procardia and will follow up the patient on outpatient basis. Brittany Coffman MD
== END 2017-10-16 20:46 | disposition home or self-care (01) | DRG 291 ==
LOC: ED 04:09 → ERH 06:21 → 2RSO 13:16
PROVIDERS: ADMIT Internal Medicine; ATTEND Internal Medicine
DX: I13.2 Hypertensive heart and chronic kidney disease with heart failure and with stage 5 chronic kidney disease, or end stage renal disease (principal); N18.6 End stage renal disease; I16.1 Hypertensive emergency; L97.819 Non-pressure chronic ulcer of other part of right lower leg with unspecified severity; I50.9 Heart failure, unspecified; D63.1 Anemia in chronic kidney disease; I27.20 Pulmonary hypertension, unspecified; F41.9 Anxiety disorder, unspecified; R26.2 Difficulty in walking, not elsewhere classified; K27.9 Peptic ulcer, site unspecified, unspecified as acute or chronic, without hemorrhage or perforation; J44.9 Chronic obstructive pulmonary disease, unspecified; Z99.2 Dependence on renal dialysis; Z99.3 Dependence on wheelchair; Z87.891 Personal history of nicotine dependence

== ENCOUNTER 2017-11-01 02:41 | Emergency (ER) | payer MEDICARE, OTHER ==
[2017-11-01 02:42] VITALS: BMI 21.5
[2017-11-01 02:54] VITALS: RESP 18; TEMP 97.7
[2017-11-01] MEDS ORDERED: Famotidine 20mg/50ml 20 MG/50 ML BAG IVPB STA (03:15)
--- NOTE | 2017-11-01 03:16 | ED PDOC ---
Arrival/HPI - General Chief Complaint: GI Problem Time Seen by Provider: 11/01/17 02:49 Historian: Patient - History of Present Illness Narrative History of Present Illness (Text): 11/01/17 03:13 A 57 year old female, whose past medical history includes ESRD (dialysis Tues, Thurs, Sat), hypertension, diabetes and CHF, presents to the emergency department complaining of 1 week duration, worsening abdominal pain, nausea, and vomiting. The patient notes that she has been experiencing the pain for months and was seen by her PMD who advised to to follow up with a dovetailer and gave her Zofran for her nausea. The patient states that her symptoms have not improved. The patient states that she has lost weight and not been able to keep food down. She also notes that she has been experiencing difficulty breathing and dizziness. The patient denies fevers, chills, headache , chest pain, diarrhea, back pain, neck pain, urinary/bowel changes, or any other complaint. PMD: Dr. Coffman Time/Duration: 1 week Symptom Onset: Sudden Symptom Course: Unchanged Activities at Onset: Rest, Light Context: Home Past Medical History - Provider Review Nursing Documentation Reviewed: Yes - Past History Past History: No Previous - Infectious Disease Hx of Infectious Diseases: None - Tetanus Immunization Tetanus Immunization: Unknown - Cardiac Hx Cardiac Disorders: Yes Hx Congestive Heart Failure: Yes Hx Hypertension: Yes - Pulmonary Hx Respiratory Disorders: Yes (USED TO SMOKE 4 CIG A DAY.) Hx Chronic Obstructive Pulmonary Disease (COPD): Yes Hx Pneumonia: Yes Hx Sleep Apnea: Yes - Neurological Hx Neurological Disorder: Yes (numbness ble when ambulating,RIGHT HAND NUMB) Hx Migraine: Yes Other/Comment: cold extremities - HEENT Hx HEENT Disorder: Yes (hard of hearing,RIGHT EAR DEAF) Hx Blind: No Hx Cataracts: No Hx Deafness: No Hx Difficulty Chewing: No Hx Epistaxis: No Hx Glaucoma: No Hx Macular Degeneration: No Other/Comment: tinnitus, - Renal Hx Renal Disorder: Yes (OLIGURIA) Hx Dialysis: Yes ([facility]) Date of Last Dialysis Treatment: 10/15/17 Hx Renal Failure: Yes - Endocrine/Metabolic Hx Endocrine Disorders: Yes Hx Hypothyroidism: Yes - Hematological/Oncological Hx Blood Disorders: No Hx Cancer: No - Integumentary Hx Dermatological Disorder: No (non healing sugical wound to right ankle) Other/Comment: r ankle wound,non healing surgical wound cared for by dr parada at wound center, wound 5.5 X 3.5 cm ,right buttocks red and open to air, SCARRED AREA.multiple skin discolorations to ble,EDEMA +1.Left thumb area with a 0.7 scabbed wound from rubbing to wheelchair. - Musculoskeletal/Rheumatological Hx Musculoskeletal Disorders: Yes Hx Falls: Yes Hx Unsteady Gait: Yes (CANE,WALKER,WHEELCHAIR) - Gastrointestinal Hx Gastrointestinal Disorders: Yes (FECAL IMPACTION,CONSTIPATION,POOR APPETITE, GASTRITIS) Hx Diverticulitis: Yes Other/Comment: poor appetite weight loss, diverticulosis, bloating, gastroenteritis - Genitourinary/Gynecological Hx Genitourinary Disorders: Yes (voids very little,ovarian cyst) - Psychiatric Hx Psychophysiologic Disorder: Yes Hx Anxiety: Yes Hx Bipolar Disorder: No Hx Depression: No Hx Emotional Abuse: No Hx Hallucinations: No Hx Panic Disorder: No Hx Post Traumatic Stress Disorder: No Hx Psychosis: No Hx Physical Abuse: No Hx Schizophrenia: No Hx Sexual Abuse: No Hx Substance Use: No - Past Surgical History Past Surgical History: Unable to Obtain - Surgical History Hx Mastectomy: No - Anesthesia Hx Anesthesia: Yes Hx Anesthesia Reactions: No Hx Malignant Hyperthermia: No - Suicidal Assessment Feels Threatened In Home Enviroment: No Family/Social History - Physician Review Nursing Documentation Reviewed: Yes Family/Social History: No Known Family HX Smoking Status: Former Smoker Hx Alcohol Use: No Hx Substance Use: No Hx Substance Use Treatment: No Allergies/Home Meds Allergies/Adverse Reactions: Allergies ciprofloxacin Allergy (Verified 10/15/17 13:47) RASH hydralazine Allergy (Verified 10/15/17 13:47) RASH vomiting vancomycin Allergy (Verified 10/15/17 13:47) SHORTNESS OF BREATH palpitations ct dye Allergy (Uncoded 10/15/17 13:47) RASH Home Medications: Home Meds Medication Instructions Recorded Confirmed Clopidogrel [Plavix] 75 mg PO DAILY 10/05/17 11/01/17 Docusate [Colace] 100 mg PO TID 10/05/17 11/01/17 Lisinopril [Zestril] 40 mg PO DAILY 10/05/17 11/01/17 Polyethylene Glycol 3350 [Miralax] 17 gm PO BID 10/05/17 11/01/17 Sildenafil [Revatio] 20 mg PO DAILY 10/05/17 11/01/17 Review of Systems - Physician Review All systems were reviewed & negative as marked: Yes - Review of Systems Constitutional: absent: Fevers, Night Sweats Respiratory: SOB Gastrointestinal: Abdominal Pain, Nausea, Vomiting, Food Intolerance. absent: Stool Changes Genitourinary Female: absent: Urine Output Changes Musculoskeletal: absent: Back Pain, Neck Pain Neurological: Dizziness. absent: Headache Physical Exam Vital Signs Reviewed: Yes Vital Signs Temp Pulse Resp BP Pulse Ox 11/01/17 02:51 97.7 F 67 18 231/91 H 100 Temperature: Afebrile Blood Pressure: Hypertensive Pulse: Regular Respiratory Rate: Normal Appearance: Positive for: Well-Appearing, Non-Toxic, Comfortable Pain Distress: Mild (Mild distress due to epigastric pain.) Mental Status: Positive for: Alert and Oriented X 3 - Systems Exam Head: Present: Atraumatic, Normocephalic Pupils: Present: PERRL Extroacular Muscles: Present: EOMI Conjunctiva: Present: Normal Mouth: Present: Moist Mucous Membranes (Patient well hydrated.) Neck: Present: Normal Range of Motion Respiratory/Chest: Present: Clear to Auscultation, Good Air Exchange. No: Respiratory Distress, Accessory Muscle Use, Wheezes, Rhonchi Cardiovascular: Present: Regular Rate and Rhythm (regular rate and rhythm with systolic murmur), Normal S1, S2. No: Murmurs Abdomen: Present: Tenderness (Epigastric tenderness to palpation.). No: Rebound , Guarding, Mass/Organomegaly Back: Present: Normal Inspection Upper Extremity: Present: Normal ROM (Full ROM of left hand intact. ), Other ( Minimal bruising to the radial aspect of the left hand. ) Lower Extremity: Present: Normal Inspection. No: Edema Neurological: Present: GCS=15, CN II-XII Intact, Speech Normal Skin: Present: Warm, Dry, Normal Color. No: Rashes Psychiatric: Present: Alert, Oriented x 3, Normal Insight, Normal Concentration Medical Decision Making ED Course and Treatment: 11/01/17 03:15 Impression: A 57 year old female presents to the emergency department complaining of 1 week duration, worsening abdominal pain, nausea, vomiting, dizziness, and difficulty breathing. Plan: -- Chest X-ray -- Labs -- Zofran and Pepcid -- Reassess and disposition Progress Notes: 11/01/17 05:20 feels better; stable for discharge - Lab Interpretations Lab Results: 11/01/17 03:30 11/01/17 03:30 Lab Results 11/01/17 03:30: Sodium 141, Potassium 3.7, Chloride 92 L, Carbon Dioxide 35 H, Anion Gap 18, BUN 21, Creatinine 2.9 H, Est GFR ( Amer) 20, Est GFR (Non- Af Amer) 17, Random Glucose 97, Calcium 9.9, Total Bilirubin 0.9, AST 26, ALT 22 , Alkaline Phosphatase 126, Total Protein 6.3, Albumin 3.7, Globulin 2.6, Albumin/Globulin Ratio 1.4, Amylase 102, Lipase 45 11/01/17 03:30: WBC 7.3 D, RBC 3.79, Hgb 10.7 L, Hct 37.6, MCV 99.2 D, MCH 28.2, MCHC 28.5 L, RDW 15.5 H, Plt Count 252, MPV 11.5 H, Gran % 74.4 H, Lymph % (Auto) 14.2 L, [place] % (Auto) 9.7 H, Eos % (Auto) 1.2 L, Baso % (Auto) 0.5, Gran # 5.45, Lymph # (Auto) 1.0 L, [place] # (Auto) 0.7 H, Eos # (Auto) 0.1, Baso # (Auto) 0.04 I have reviewed the lab results: Yes - RAD Interpretation Radiology Orders: 11/01/17 03:16 CHEST PORTABLE [RAD] Stat - Medication Orders Current Medication Orders: Discontinued Medications Famotidine (Pepcid 20mg/50ml Premix) 20 mg in 50 mls @ 100 mls/hr IVPB STAT STA Stop: 11/01/17 03:44 Last Admin: 11/01/17 03:37 Dose: 100 mls/hr eMAR Start Stop Document 11/01/17 03:37 JOL (Rec: 11/01/17 03:37 JOL [id number]) Intravenous Solution Start Date 11/01/17 Start Time 03:37 End Date 11/01/17 End time 04:07 Total Infusion Time 30 Ondansetron HCl (Zofran Inj) 4 mg IVP STAT STA Stop: 11/01/17 03:16 Last Admin: 11/01/17 03:37 Dose: 4 mg IVP Administration Document 11/01/17 03:37 JOL (Rec: 11/01/17 03:38 [id number] Charges for Administration # of IVP Administrations 1 Ondansetron HCl (Zofran Inj) 4 mg IVP STAT STA Stop: 11/01/17 04:21 Last Admin: 11/01/17 04:41 Dose: 4 mg IVP Administration Document 11/01/17 04:41 JOL (Rec: 11/01/17 04:41 [id number] Charges for Administration # of IVP Administrations 1 Tramadol HCl (Ultram) 50 mg PO STAT STA Stop: 11/01/17 04:22 Last Admin: 11/01/17 04:40 Dose: 50 mg MAR Pain Assessment Document 11/01/17 04:40 JOL (Rec: 11/01/17 04:41 [id number] Pain Reassessment Is this a pain reassessment? No Sleep Is patient sleeping during reassessment? No Presence of Pain Presence of Pain Yes Pain Scale Used Pain Scale Used Numeric Location Pain Location Body Site Abdomen Description Pain Behavior Moaning Grasping Site Restlessness Facial Grimacing Aggravating Factors ADL's Changing Position Alleviating Factors/Management Medication Techniques - Scribe Statement The provider has reviewed the documentation as recorded by the Scribe Eileen Norton Provider Scribe Attestation: All medical record entries made by the Scribe were at my direction and personally dictated by me. I have reviewed the chart and agree that the record accurately reflects my personal performance of the history, physical exam, medical decision making, and the department course for this patient. I have also personally directed, reviewed, and agree with the discharge instructions and disposition. Disposition/Present on Arrival - Present on Arrival Any Indicators Present on Arrival: No History of DVT/PE: No History of Uncontrolled Diabetes: Yes Urinary Catheter: No History of Decub. Ulcer: No History Surgical Site Infection Following: None - Disposition Have Diagnosis and Disposition been Completed?: Yes Diagnosis: Abdominal pain Disposition: HOME/ ROUTINE Disposition Time: 05:30 Patient Plan: Discharge Condition: IMPROVED Discharge Instructions (ExitCare): Chronic Pain (DC) Forms: [email or web address] (Maltese)
[2017-11-01 03:52] LABS: HEMOGLOBIN 10.7 g/dL (12.0-16.0); MEAN CELL VOLUME 99.2 fl (80.0-105.0); MEAN CORPUSCULAR HEMOGLOBIN 28.2 pg (25.0-35.0); MEAN CORPUSCULAR HGB CONC 28.5 g/dl (31.0-37.0); MEAN PLATELET VOLUME 11.5 fl (7.0-11.0); RBC 3.79 10^6/uL (3.5-6.1); RED CELL DISTRIBUTION WIDTH 15.5 % (11.5-14.5); WHITE BLOOD COUNT 7.3 10^3/ul (4.5-11.0)
[2017-11-01 03:53] LABS: BASO # 0.04 K/mm3 (0.0-2.0); BASO % 0.5 % (0.0-3.0); EOS # 0.1 (0.0-0.7); EOS % 1.2 % (1.5-5.0); GRAN # 5.45 (1.4-6.5); GRAN % 74.4 % (50.0-68.0); LYMPH % 14.2 % (22.0-35.0); MONO # 0.7 (0.1-0.6); MONO % 9.7 % (1.0-6.0)
[2017-11-01 03:55] LABS: ALB/GLOB RATIO 1.4 (1.1-1.8); ALBUMIN 3.7 g/dL (3.0-4.8); CALCIUM 9.9 mg/dL (8.4-10.5)
[2017-11-01 06:15] VITALS: BP 165/82; PULSE 69; O2SAT 99
--- NOTE | 2017-11-01 09:07 | RAD ---
HISTORY: Shortness of breath COMPARISON: 10/15/2017. FINDINGS: There is stable position of right subclavian stent. The right dialysis catheter terminates in the right atrium. LUNGS: The lungs are well inflated and clear. There is interval improvement in pulmonary venous congestion. PLEURA: No significant pleural effusion identified, no pneumothorax apparent. CARDIOVASCULAR: There is persistent moderate cardiomegaly. OSSEOUS STRUCTURES: No significant abnormalities. VISUALIZED UPPER ABDOMEN: Normal. OTHER FINDINGS: None. IMPRESSION: Improving pulmonary venous congestion. No active pulmonary disease.
--- NOTE | 2017-11-01 14:57 | CARD ---
APPROVED REPORT EKG Measurement Heart [id number] NM [id number] <Conclusion> Normal sinus rhythm Possible Left atrial enlargement Left ventricular hypertrophy with repolarization abnormality Abnormal ECG
== END 2017-11-01 06:12 | disposition home or self-care (01) ==
LOC: ED 02:41
DX: R10.9 Unspecified abdominal pain (principal); I12.0 Hypertensive chronic kidney disease with stage 5 chronic kidney disease or end stage renal disease; E11.22 Type 2 diabetes mellitus with diabetic chronic kidney disease; N18.6 End stage renal disease; Z99.2 Dependence on renal dialysis; Z87.891 Personal history of nicotine dependence
CPT/HCPCS: 96365; 96375; 96376; 99284; J2405

== ENCOUNTER 2017-11-02 23:48 | Inpatient (IN) | payer MEDICARE, OTHER ==
[2017-11-02 23:48] VITALS: BMI 21.5
[2017-11-03 00:48] LABS: HEMOGLOBIN 12.4 g/dL (12.0-16.0); MEAN CORPUSCULAR HEMOGLOBIN 28.2 pg (25.0-35.0); MEAN PLATELET VOLUME 10.6 fl (7.0-11.0); RBC 4.39 10^6/uL (3.5-6.1); WHITE BLOOD COUNT 14.9 10^3/ul (4.5-11.0)
[2017-11-03 01:01] LABS: ALB/GLOB RATIO 1.7 (1.1-1.8); ALBUMIN 4.7 g/dL (3.0-4.8); CALCIUM 10.8 mg/dL (8.4-10.5)
[2017-11-03 01:03] LABS: MEAN CELL VOLUME 94.3 fl (80.0-105.0)
[2017-11-03 01:07] LABS: TROPONIN I 0.1 ng/mL
[2017-11-03 01:09] LABS: INR 0.99 (0.93-1.08); PARTIAL THROMBOPLASTIN TIME 30.4 Seconds (25.1-36.5); PROTHROMBIN TIME 11.3 SECONDS (9.4-12.5)
[2017-11-03] MEDS ORDERED: Nitroglycerin 2% Ointment Foilpak UD TOP STA (01:33)
[2017-11-03] MEDS ORDERED: Metoprolol 1 mg/ml Inj IVP STA (01:34)
--- NOTE | 2017-11-03 01:41 | ED PDOC ---
Arrival/HPI - General Chief Complaint: Seizure Time Seen by Provider: 11/03/17 00:00 Historian: Patient - History of Present Illness Narrative History of Present Illness (Text): 11/03/17 00:05 57 year old female, whose past medical history includes ESRD(dialysis Tues, Thurs, Sat), hypertension, diabetes, CHF, and seizures, presents to the emergency department s/p seizure episode at home.Patient states she doesn't remember what happened.States she had taken her Keppra meds prior. Upon arrival to ER patient soon began to exhibit some tonic-clonic movements. Patient was awake during this. Patient also complaining of chest discomfort.She denies any arm or leg weakness. According to family and patient there's no history of fever or chills. Patient denies any fever, chills, shortness of breath, nausea, vomiting, diarrhea, urinary symptoms, back pain, neck pain, headache, dizziness , or any other complaints. PMD: Dr. Coffman Time/Duration: Prior to Arrival Symptom Onset: Sudden Activities at Onset: Light Context: Home Past Medical History - Provider Review Nursing Documentation Reviewed: Yes - Past History Past History: No Previous - Infectious Disease Hx of Infectious Diseases: None - Tetanus Immunization Tetanus Immunization: Unknown - Cardiac Hx Cardiac Disorders: Yes Hx Congestive Heart Failure: Yes Hx Hypertension: Yes - Pulmonary Hx Respiratory Disorders: Yes (USED TO SMOKE 4 CIG A DAY.) Hx Chronic Obstructive Pulmonary Disease (COPD): Yes Hx Pneumonia: Yes Hx Sleep Apnea: Yes - Neurological Hx Neurological Disorder: Yes (numbness ble when ambulating,RIGHT HAND NUMB) Hx Migraine: Yes Other/Comment: cold extremities - HEENT Hx HEENT Disorder: Yes (hard of hearing,RIGHT EAR DEAF) Hx Blind: No Hx Cataracts: No Hx Deafness: No Hx Difficulty Chewing: No Hx Epistaxis: No Hx Glaucoma: No Hx Macular Degeneration: No Other/Comment: tinnitus, - Renal Hx Renal Disorder: Yes (OLIGURIA) Hx Dialysis: Yes ([facility]) Date of Last Dialysis Treatment: 10/15/17 Hx Renal Failure: Yes - Endocrine/Metabolic Hx Endocrine Disorders: Yes Hx Hypothyroidism: Yes - Hematological/Oncological Hx Blood Disorders: No Hx Cancer: No - Integumentary Hx Dermatological Disorder: No (non healing sugical wound to right ankle) Other/Comment: r ankle wound,non healing surgical wound cared for by dr parada at wound center, wound 5.5 X 3.5 cm ,right buttocks red and open to air, SCARRED AREA.multiple skin discolorations to ble,EDEMA +1.Left thumb area with a 0.7 scabbed wound from rubbing to wheelchair. - Musculoskeletal/Rheumatological Hx Musculoskeletal Disorders: Yes Hx Falls: Yes Hx Unsteady Gait: Yes (CANE,WALKER,WHEELCHAIR) - Gastrointestinal Hx Gastrointestinal Disorders: Yes (FECAL IMPACTION,CONSTIPATION,POOR APPETITE, GASTRITIS) Hx Diverticulitis: Yes Other/Comment: poor appetite weight loss, diverticulosis, bloating, gastroenteritis - Genitourinary/Gynecological Hx Genitourinary Disorders: Yes (voids very little,ovarian cyst) - Psychiatric Hx Psychophysiologic Disorder: Yes Hx Anxiety: Yes Hx Bipolar Disorder: No Hx Depression: No Hx Emotional Abuse: No Hx Hallucinations: No Hx Panic Disorder: No Hx Post Traumatic Stress Disorder: No Hx Psychosis: No Hx Physical Abuse: No Hx Schizophrenia: No Hx Sexual Abuse: No Hx Substance Use: No - Past Surgical History Past Surgical History: Unable to Obtain - Surgical History Hx Mastectomy: No - Anesthesia Hx Anesthesia: Yes Hx Anesthesia Reactions: No Hx Malignant Hyperthermia: No - Suicidal Assessment Feels Threatened In Home Enviroment: No Family/Social History - Physician Review Nursing Documentation Reviewed: Yes Family/Social History: No Known Family HX Smoking Status: Former Smoker Hx Alcohol Use: No Hx Substance Use: No Hx Substance Use Treatment: No Allergies/Home Meds Allergies/Adverse Reactions: Allergies ciprofloxacin Allergy (Verified 10/15/17 13:47) RASH hydralazine Allergy (Verified 10/15/17 13:47) RASH vomiting vancomycin Allergy (Verified 10/15/17 13:47) SHORTNESS OF BREATH palpitations ct dye Allergy (Uncoded 10/15/17 13:47) RASH Home Medications: Home Meds Medication Instructions Recorded Confirmed Clopidogrel [Plavix] 75 mg PO DAILY 10/05/17 11/03/17 Docusate [Colace] 100 mg PO TID 10/05/17 11/03/17 Lisinopril [Zestril] 40 mg PO DAILY 10/05/17 11/03/17 Polyethylene Glycol 3350 [Miralax] 17 gm PO BID 10/05/17 11/03/17 Sildenafil [Revatio] 20 mg PO DAILY 10/05/17 11/03/17 Review of Systems - Physician Review All systems were reviewed & negative as marked: Yes - Review of Systems Constitutional: absent: Fevers, Other (Chills) Respiratory: absent: SOB Cardiovascular: Chest Pain Gastrointestinal: absent: Diarrhea, Nausea, Vomiting Genitourinary Female: absent: Dysuria, Frequency, Hematuria Musculoskeletal: absent: Back Pain, Neck Pain Neurological: Seizure. absent: Headache, Dizziness Physical Exam Vital Signs Reviewed: Yes Vital Signs Temp Pulse Resp BP Pulse Ox 11/03/17 05:01 74 19 212/102 H 100 11/03/17 04:53 74 19 236/110 H 100 11/03/17 04:37 82 18 203/90 H 96 11/03/17 04:21 81 229/118 H 11/03/17 03:42 80 17 233/99 H 100 11/03/17 03:25 86 247/100 H 11/03/17 02:46 83 20 223/88 H 100 11/03/17 02:40 86 19 237/95 H 100 11/03/17 02:28 89 239/95 H 11/03/17 01:19 98.4 F 107 H 19 227/98 H 100 Temperature: Afebrile Blood Pressure: Hypertensive Pulse: Tachycardic Respiratory Rate: Normal Appearance: Positive for: Well-Appearing, Non-Toxic, Comfortable Pain Distress: None Mental Status: Positive for: Alert and Oriented X 3 Finger Stick Blood Glucose: 112 - Systems Exam Head: Present: Atraumatic, Normocephalic Pupils: Present: PERRL Extroacular Muscles: Present: EOMI Conjunctiva: Present: Normal Mouth: Present: Moist Mucous Membranes Neck: Present: Normal Range of Motion Respiratory/Chest: Present: Clear to Auscultation, Good Air Exchange. No: Respiratory Distress, Accessory Muscle Use Cardiovascular: Present: Tachycardic. No: Murmurs Abdomen: Present: Normal Bowel Sounds. No: Tenderness, Distention, Peritoneal Signs Back: Present: Normal Inspection Upper Extremity: Present: Normal Inspection, Normal ROM, Neurovascularly Intact. No: Cyanosis, Edema Lower Extremity: Present: Normal Inspection, Normal ROM, Neurovascularly Intact. No: Edema Neurological: Present: GCS=15, CN II-XII Intact, Speech Normal, Motor Func Grossly Intact, Normal Sensory Function Skin: Present: Warm, Dry, Normal Color. No: Rashes Psychiatric: Present: Alert, Oriented x 3, Normal Insight, Normal Concentration Medical Decision Making ED Course and Treatment: 11/03/17 00:03 Impression: 57 year old female presents s/p seizure and also complaining of chest discomfort. Plan: -- CT Head w/o contrast -- EKG -- Labs -- Chest X-ray -- Ativan x2 -- Loproessor -- Nitro-Bid 2% Oint -- Reassess and disposition Prior Visits: Notes and results from previous visits were reviewed. Patient was last seen in the emergency department on 11/01/16 presents complaining of 1 week duration of worsening abdominal pain, nausea, and vomiting. Patient was discharge. Progress Notes: 11/03/17 00:40 Shortly after she arrived, patient had a reoccurrence of seizure activity which she was given a dose of Ativan. 11/03/17 02:07 Patient currently feeling better. Tachycardia has decreased. 11/03/17 02:54 CXR Impression: As read by me, no acute processes. EKG shows Sinus Tachycardia at 148 BPM with LVH with ST/T changes. Unchanged from pervious EKG 11/01/18. Interpreted by me. 11/03/17 03:23 EXAM: CT Head Without Intravenous Contrast Dictated and Authenticated by: Estevan Sanders MD 11/03/2017 3:13 AM IMPRESSION: 1. There is a hypodense lacunar infarct within the left thalamus, new compared to the prior study. This is likely acute or subacute. 2. Progressive hypodensity is identified within the region of the right occipital and parietal cortices. This is suggestive of subacute ischemic change or hypertensive encephalopathy ( PRES). An MRI of the brain is recommended, as clinically indicated. 3. No acute intracranial hemorrhage. 4. Hypodense encephalomalacia is again visualized within the inferior left cerebellar lobe, consistent with an old infarct. 5. There is extensive cerebral white matter disease again visualized. 6. Mild atrophy. 7. Paranasal sinus disease is noted above. 8. Mild effusions are visualized within the right mastoid air cells. 11/03/17 03:[address] Bradford who is aware and agrees with the plan. Accepts patient into his service. Patient will require monitoring of her blood pressure in a unit setting and further neurological monitoring. 11/03/17 03:[address] Coffman who is aware and agrees with the plan. Requests Dr. Ontiveros, Dr. Smith, and Dr. Ortiz under consult. - Lab Interpretations Lab Results: 11/03/17 00:26 11/03/17 00:26 Lab Results 11/03/17 01:23: POC Glucose (mg/dL) 112 H 11/03/17 00:26: WBC 14.9 H D, RBC 4.39, Hgb 12.4, Hct 41.4, MCV 94.3 D, MCH 28.2, MCHC 30.0 L, RDW 16.0 H, Plt Count 394, MPV 10.6 11/03/17 00:26: Sodium 138, Potassium 5.1 H, Chloride 92 L, Carbon Dioxide 25, Anion Gap 27 H, BUN 54 H, Creatinine 6.2 H, Est GFR ( Amer) 8, Est GFR ( Non-Af Amer) 7, Random Glucose 127 H, Calcium 10.8 H, Total Bilirubin 0.7, AST 31, ALT 25, Alkaline Phosphatase 131 H, Lactate Dehydrogenase 702 H, Total Creatine Kinase 38, Troponin I 0.10, Total Protein 7.4, Albumin 4.7, Globulin 2.7, Albumin/Globulin Ratio 1.7 11/03/17 00:26: PT 11.3, INR 0.99, APTT 30.4 I have reviewed the lab results: Yes - RAD Interpretation Radiology Orders: 11/03/17 00:07 HEAD W/O CONTRAST [CT] Stat CHEST PORTABLE [RAD] Stat - EKG Interpretation Interpreted by ED Physician: Yes Type: 12 lead EKG - Medication Orders Current Medication Orders: Levetiracetam 500 mg/ Sodium (Chloride) 105 mls @ 460 mls/hr IV Q12 ZANA Labetalol HCl 500 mg/ Sodium (Chloride) 500 mls @ 30 mls/hr IV .[id number] PRN; Protocol; 0.5 MG/MIN PRN Reason: TITRATE PER MD ORDER Last Titration: 11/03/17 07:04 Dose: 3 mg/min, 180 mls/hr Titration Intervention Document 11/03/17 07:04 B.P (Rec: 11/03/17 07:04 B.P [facility] [id number]) Titration Intake Titration Intake 75 Cumulative Intake 75 Cumulative Intake (Rx) 75 Waste Amount 0 Container Volume 425 Titration Dosing Titration Dose 3 IV Rate 180 Intake/Decrease Increased Cumulative Dose 75 Lorazepam (Ativan) 2 mg IVP Q4H PRN; Protocol PRN Reason: Seizure activity Pantoprazole Sodium (Protonix Inj) 40 mg IVP DAILY ZANA Discontinued Medications Aspirin (Aspirin Supp) 300 mg RC STAT STA Stop: 11/03/17 03:37 Last Admin: 11/03/17 04:36 Dose: 300 mg MAR Pain/Vitals Document 11/03/17 04:36 JOL (Rec: 11/03/17 04:36 JOL [id number]) Pain Reassessment Is This A Pain ReAssessment? No Sleep Is patient sleeping during reassessment? No Presence of Pain Presence of Pain No Labetalol HCl 100 mg/ Sodium (Chloride) 100 mls @ 60 mls/hr IV .Q1H40M PRN; Protocol; 1 MG/MIN PRN Reason: TITRATE PER MD ORDER Last Titration: 11/03/17 04:53 Dose: 2 mg/min, 120 mls/hr Titration Intervention Document 11/03/17 04:53 JOL (Rec: 11/03/17 04:53 JOL [id number]) Titration Intake Container Volume 50 Titration Dosing Titration Dose 2 IV Rate 120 Intake/Decrease Started Labetalol HCl 100 mg/ Sodium (Chloride) 100 mls @ 60 mls/hr IV .Q1H40M PRN; Protocol; 1 MG/MIN PRN Reason: TITRATE PER MD ORDER Last Titration: 11/03/17 06:00 Dose: 2 mg/min, 120 mls/hr Titration Intervention Document 11/03/17 06:00 B.P (Rec: 11/03/17 06:01 B.P [id number]) Titration Intake Titration Intake 20 Cumulative Intake 50 Cumulative Intake (Rx) 50 Waste Amount 0 Container Volume 50 Titration Dosing Titration Dose 2 IV Rate 120 Intake/Decrease Increased Cumulative Dose 50 Labetalol HCl (Trandate) 20 mg IV STAT STA Stop: 11/03/17 03:09 Last Admin: 11/03/17 03:25 Dose: 20 mg eMAR Start Stop Document 11/03/17 03:25 [email or web address] (Rec: 11/03/17 03:25 [email or web address] [id number]- AUT[employer] CLAIMS ADJUSTER) Intravenous Solution Start Date 11/03/17 Start Time 03:25 End Date 11/03/17 MAR Pulse and Blood Pressure Document 11/03/17 03:25 [email or web address] (Rec: 11/03/17 03:25 [email or web address] [id number]- [employer] CLAIMS ADJUSTER) Pulse Pulse Rate (60-90) 86 Blood Pressure Blood Pressure (100/60-150/90) 247/100 Lorazepam (Ativan) 2 mg IV ONCE ONE Stop: 11/03/17 00:09 Last Admin: 11/03/17 00:46 Dose: 2 mg eMAR Start Stop Document 11/03/17 00:46 JOL (Rec: 11/03/17 00:46 JOL [id number]) Intravenous Solution Start Date 11/03/17 Start Time 00:46 End Date 11/03/17 End time 00:47 Total Infusion Time 1 Lorazepam (Ativan) 2 mg IVP ONCE ONE Stop: 11/03/17 00:42 Last Admin: 11/03/17 00:44 Dose: 2 mg IVP Administration Document 11/03/17 00:44 [email or web address] (Rec: 11/03/17 00:44 [email or web address] [id number]) Charges for Administration # of IVP Administrations 1 Metoprolol Tartrate (Lopressor) 5 mg IVP STAT STA Stop: 11/03/17 01:35 Last Admin: 11/03/17 02:28 Dose: 5 mg IVP Administration Document 11/03/17 02:28 [email or web address] (Rec: 11/03/17 02:28 [id number]- AUTO CLAIMS ADJUSTER) Charges for Administration # of IVP Administrations 1 [facility] Pulse and Blood Pressure Document 11/03/17 02:28 [email or web address] (Rec: 11/03/17 02:28 [id number]- [employer] CLAIMS ADJUSTER) Pulse Pulse Rate (60-90) 89 Blood Pressure Blood Pressure (100/60-150/90) 239/95 Nitroglycerin (Nitro-Bid 2% Oint) 1 ea TOP ONCE STA Stop: 11/03/17 01:34 Last Admin: 11/03/17 02:28 Dose: 1 ea NIHSS Scale ([place]) Time Performed: 00:05 - How Severe is the Stoke Baseline Level of Consciousness: 0=Alert LOC to Questions: 0=Both comments correct LOC to commands: 0=Obeys both correctly Best Gaze: 0=Normal Visual: 0=No visual loss Facial: 0=Normal Motor Arm - Left: 0=No drift Motor Arm - Right: 0=No drift Motor Leg - Left: 0=No drift Motor Leg - Right: 0=No drift Limb Ataxia: 0=Absent Sensory: 0=Normal Best Language: 0=No aphasia Dysarthia: 0=Normal articulation Extinction & Inattention (Neglect): 0=Normal, no object Score: 0 Risk Level: No Stroke Risk - Scribe Statement The provider has reviewed the documentation as recorded by the Jayleen Richey Provider Scribe Attestation: All medical record entries made by the Jayleen were at my direction and personally dictated by me. I have reviewed the chart and agree that the record accurately reflects my personal performance of the history, physical exam, medical decision making, and the department course for this patient. I have also personally directed, reviewed, and agree with the discharge instructions and disposition. Disposition/Present on Arrival - Present on Arrival Any Indicators Present on Arrival: No History of DVT/PE: No History of Uncontrolled Diabetes: Yes Urinary Catheter: No History of Decub. Ulcer: No History Surgical Site Infection Following: None - Disposition Have Diagnosis and Disposition been Completed?: Yes Diagnosis: Hypertensive emergency, Uncontrolled hypertension, ESRD (end stage renal disease) on dialysis, Seizures, Chest pain Disposition: HOSPITALIZED Disposition Time: 04:34 Patient Plan: Admission Patient Problems: Current Active Problems Problem Status Onset Chest pain Acute ESRD (end stage renal disease) on dialysis Acute Hypertensive emergency Acute Seizures Acute Uncontrolled hypertension Acute Condition: GUARDED
[2017-11-03] MEDS ORDERED: Labetalol 5 mg/ml Inj 20ML IV STA (03:08)
--- NOTE | 2017-11-03 03:13 | CT ---
EXAM: CT Head Without Intravenous Contrast EXAM DATE/TIME: 11/03/2017 12:07 AM CLINICAL HISTORY: The patient age is 57 years old and is female; Signs and symptoms; Alteration of consciousness; Other: Seizure Facility exam id and description: Ct heads head w/o contrast TECHNIQUE: Axial computed tomography images of the head/brain without intravenous contrast. All CT scans at this facility use one or more dose reduction techniques, viz.: automated exposure control; ma/kV adjustment per patient size (including targeted exams where dose is matched to indication; i.e. head); or iterative reconstruction technique. Coronal and sagittal reformatted images were created and reviewed. COMPARISON: CT - HEAD W/O CONTRAST 2017-09-30 11:31 FINDINGS: Brain: There is a hypodense lacunar infarct within the left thalamus, new compared to the prior study. This is likely acute or subacute. Progressive hypodensity is identified within the region of the right occipital and parietal cortices. This is suggestive of subacute ischemic change or hypertensive encephalopathy (PRES). Hypodense encephalomalacia is again visualized within the inferior left cerebellar lobe, consistent with an old infarct. There is extensive hypodense cerebral white matter disease again visualized. The acuity of the white matter disease is indeterminate. No acute intracranial hemorrhage is seen. Midline shift: There is no midline shift. Ventricles: There is mild prominence of the ventricles and sylvian fissures, compatible with atrophy. Bones/joints: The calvarium demonstrates no evidence for a depressed fracture. Soft tissues: No acute abnormality. Vasculature: There is atherosclerotic calcification of the intracranial internal carotid arteries and distal vertebral arteries. Sinuses: Mucous retention cysts or polyps are visualized within the right maxillary sinus. Mastoid air cells: Mild effusions are visualized within the right mastoid air cells. IMPRESSION: 1. There is a hypodense lacunar infarct within the left thalamus, new compared to the prior study. This is likely acute or subacute. 2. Progressive hypodensity is identified within the region of the right occipital and parietal cortices. This is suggestive of subacute ischemic change or hypertensive encephalopathy (PRES). An MRI of the brain is recommended, as clinically indicated. 3. No acute intracranial hemorrhage. 4. Hypodense encephalomalacia is again visualized within the inferior left cerebellar lobe, consistent with an old infarct. 5. There is extensive cerebral white matter disease again visualized. 6. Mild atrophy. 7. Paranasal sinus disease is noted above. 8. Mild effusions are visualized within the right mastoid air cells.
[2017-11-03] MEDS ORDERED: Labetalol 100 MG in Sodium Chloride 0.9% 80 ML IV PRN ×2 (03:42→05:00)
--- NOTE | 2017-11-03 05:37 | CP.PCM.CON ---
<Emory Fernandes - Last Filed: 11/03/17 05:30> History of Present Illness - History of Present Illness History of Present Illness: Fadia Fernandes PGY1 ICU Consult note CC: AMS HPI: Patient is a 57year old female with past medical history of ESRD on dialysis (T/R/Thu), HTN, CHF, seizures, CAD with stent, previous VA, PAD, who presents to the emergency department via ambulance status post seizure activity at home around 11pm. Patient was reportedly witnessed by family at home to have tonic-clonic seizure like activity. Patient was brought to ED and noted to have elevated blood pressure and continued seizure activity x3. Patient was given IV ativan for stabalization of seizure activity. Head CT was preformed in ED showing acute vs. subacute ischemic stroke. Patient was placed on labatelol gtt for control of BP. Patient was noted to be altered at time of interview. Information reported is gathered from medical chart and family at bedside. Patient family reports that she has had previous siezure activity one month prior associated with CVA. Patient is noted to be able to preform activities of dialy living at baseline s/p CVA one month ago. Patient family also reports patient expressed chest discomfort prior to seizure activity. After seizure activity and in ED patient noted to be communicative prior to recurrence of seizure. According to family patient did not express fever, chills, shortness of breath, abdominal pain, dizziness prior to initial seizure. Patient is unable to participate in full 12 point ROS due to AMS. PMH - CAD s/p PCI and stent - CHF, Cardiomyopathy with diastolic dysfunction - HTN - COPD - ESRD with HD T//, R chest port - Peptic ulcer disease - Hypothyroidism - Chronic anemia - Hx fall, gait dysfunction - Hx fecal impaction, constipation, poor appetite, gastritis - Chronic ischemic R leg ulcers PSH - Debridement of superficial ulceration, R leg, 09/14/17 - Port placment - R carotid angioplasty - Bilateral leg arterial bypass, [facility] 2016 SocHx - Former smoker, quit 5 years ago, 2ppd x 40 years - Denied drug/ ETOH - Live with son, mostly wheelchair bound, able to amublate short distances, able to comple ADL All: Ciprofloxacin, hydralaxine, CT dye, vancomycin Meds: - MAR reviewed PMD: Dr. Richards Review of Systems - Review of Systems Review of Systems: Unable to obtain 12 point ROS due to patient AMS Past Patient History - Infectious Disease Hx of Infectious Diseases: None - Tetanus Immunizations Tetanus Immunization: Unknown - Past Social History Smoking Status: Former Smoker Alcohol: None Drugs: Denies - CARDIAC Hx Cardiac Disorders: Yes Hx Congestive Heart Failure: Yes Hx Hypertension: Yes - PULMONARY Hx Respiratory Disorders: Yes (USED TO SMOKE 4 CIG A DAY.) Hx Chronic Obstructive Pulmonary Disease (COPD): Yes Hx Pneumonia: Yes Hx Sleep Apnea: Yes - NEUROLOGICAL Hx Neurological Disorder: Yes (numbness ble when ambulating,RIGHT HAND NUMB) Hx Migraine: Yes Other/Comment: cold extremities - HEENT Hx HEENT Problems: Yes (hard of hearing,RIGHT EAR DEAF) Hx Blind: No Hx Cataracts: No Hx Deafness: No Hx Difficulty Chewing: No Hx Epistaxis: No Hx Glaucoma: No Hx Macular Degeneration: No Other/Comment: tinnitus, - RENAL Hx Chronic Kidney Disease: Yes ([place]) Hx Dialysis: Yes ([facility]) Date of Last Dialysis Treatment: 10/15/17 Hx Renal Failure: Yes - ENDOCRINE/METABOLIC Hx Endocrine Disorders: Yes Hx Hypothyroidism: Yes - HEMATOLOGICAL/ONCOLOGICAL Hx Blood Disorders: No Hx Cancer: No - INTEGUMENTARY Hx Dermatological Problems: No (non healing sugical wound to right ankle) Other/Comment: r ankle wound,non healing surgical wound cared for by dr parada at wound center, wound 5.5 X 3.5 cm ,right buttocks red and open to air, SCARRED AREA.multiple skin discolorations to ble,EDEMA +1.Left thumb area with a 0.7 scabbed wound from rubbing to wheelchair. - MUSCULOSKELETAL/RHEUMATOLOGICAL Hx Musculoskeletal Disorders: Yes Hx Falls: Yes Hx Unsteady Gait: Yes (CANE,WALKER,WHEELCHAIR) - GASTROINTESTINAL Hx Gastrointestinal Disorders: Yes (FECAL IMPACTION,CONSTIPATION,POOR APPETITE, GASTRITIS) Hx Diverticulitis: Yes Other/Comment: poor appetite weight loss, diverticulosis, bloating, gastroenteritis - GENITOURINARY/GYNECOLOGICAL Hx Genitourinary Disorders: Yes (voids very little,ovarian cyst) - PSYCHIATRIC Hx Psychophysiologic Disorder: Yes Hx Anxiety: Yes Hx Bipolar Disorder: No Hx Depression: No Hx Emotional Abuse: No Hx Hallucinations: No Hx Panic Symptoms: No Hx Post Traumatic Stress Disorder: No Hx Psychosis: No Hx Physical Abuse: No Hx Schizophrenia: No Hx Sexual Abuse: No Hx Substance Use: No - SURGICAL HISTORY Hx Mastectomy: No - ANESTHESIA Hx Anesthesia: Yes Hx Anesthesia Reactions: No Hx Malignant Hyperthermia: No Meds Allergies/Adverse Reactions: Allergies Allergy/AdvReac Type Severity Reaction Status Date / Time ciprofloxacin Allergy RASH Verified 10/15/17 13:47 hydralazine Allergy RASH Verified 10/15/17 13:47 vancomycin Allergy SHORTNESS Verified 10/15/17 13:[address] dye Allergy RASH Uncoded 10/15/17 13:47 - Medications Medications: Current Medications Levetiracetam 500 mg/ Sodium (Chloride) 105 mls @ 460 mls/hr IV Q12 [facility] Labetalol HCl 100 mg/ Sodium (Chloride) 100 mls @ 60 mls/hr IV .Q1H40M PRN; Protocol; 1 MG/MIN PRN Reason: TITRATE PER MD ORDER Lorazepam (Ativan) 2 mg IVP Q4H PRN; Protocol PRN Reason: Seizure activity Pantoprazole Sodium (Protonix Inj) 40 mg IVP DAILY [facility] Physical Exam - Constitutional Additional comments: Altered mental status, appears stated age - Head Exam Head Exam: NORMAL INSPECTION - Eye Exam Eye Exam: Normal appearance - ENT Exam ENT Exam: Mucous Membranes Moist - Neck Exam Neck exam: Negative for: Lymphadenopathy - Respiratory Exam Respiratory Exam: Clear to Auscultation Bilateral. absent: Rhonchi - Cardiovascular Exam Cardiovascular Exam: +S2 - GI/Abdominal Exam GI & Abdominal Exam: Normal Bowel Sounds, Soft. absent: Distended, Guarding, Tenderness - Extremities Exam Extremities exam: Negative for: pedal edema Additional comments: right lower extremity leg wound s/p fem bypass 04/08/2017 - Neurological Exam Neurological exam: Altered - Skin Skin Exam: Dry, Intact, Warm Results - Vital Signs Recent Vital Signs: Last Vital Signs Temp 98.4 F 11/03/17 01:19 Pulse 74 11/03/17 05:01 Resp 19 11/03/17 05:01 BP 212/102 H 11/03/17 05:01 Pulse Ox 100 11/03/17 05:01 - Labs Result Diagrams: 11/03/17 00:26 11/03/17 00:26 Labs: Laboratory Results - last 24 hr 11/03/17 11/03/17 11/03/17 00:26 00:26 00:26 WBC 14.9 H D RBC 4.39 Hgb 12.4 Hct 41.4 MCV 94.3 D MCH 28.2 MCHC 30.0 L RDW 16.0 H Plt Count 394 MPV 10.6 PT 11.3 INR 0.99 APTT 30.4 Sodium 138 Potassium 5.1 H Chloride 92 L Carbon Dioxide 25 Anion Gap 27 H BUN 54 H Creatinine 6.2 H Est GFR ( Amer) 8 Est GFR (Non-Af Amer) 7 Random Glucose 127 H Calcium 10.8 H Total Bilirubin 0.7 AST 31 ALT 25 Alkaline Phosphatase 131 H Lactate Dehydrogenase 702 H Total Creatine Kinase 38 Troponin I 0.10 Total Protein 7.4 Albumin 4.7 Globulin 2.7 Albumin/Globulin Ratio 1.7 Assessment & Plan - Assessment and Plan (Free Text) Assessment: Patient is a 57year old female with past medical history of ESRD on dialysis (T/ R/Sat), HTN, CHF, seizures, CAD with stent, previous VA, PAD, who presents to the emergency department via ambulance status post seizure activtiy. Patient evaluated in ED and found to have elevated BP and head Ct showing acute vs. subacute ischemic stroke. Patient admitted to ICU for further medical management and observation. Plan: Neuro: AMS, patient post ictal Seizure activity - Witnessed seizure activity at home - Seizure x3 while in ED - Ativan, Keppra IV 500mg Q12H - Neuro Check Q1H - Elevated bed 35 degrees - Seizure, Fall precautions - CPK Acute vs. subacute ischemic stroke - likely secondary to HTN emergency - CT Head with evidence of - Patient not candidate for thrombolytics due recent CVA within past one month and patient being out of 4 hour window from onset of symptoms - MRI of brain in AM - Neurocheck Q1H - Neuro consult, appreciate recs CV: HTN emergency - Elevated SBP >225 in ED - IV Labatelol gtt with goal SBP>190/DBP>90 and for slow reduction of ~15% in 24 hours Chest Pain - Prior to arrival patient complained of chest discomfort - serial troponin and EKG - Cardiology Dr. Ontiveros consulted, appreciate recs - holding plavix secondary to acute vs. subacute ischemic stroke CHF systolic Pulm: On RA, saturating well Maintain O2 sat >90% Continue with HOB elevation >35 degrees, aspriation precautions Continue to monitor GI: NPO Protonix 40mg Daily Heme: Holding anticoagulatins H/H stable, continue to monitor Renal: ESRD with dialysis (T/R/Sa) - Continue with dialysis - Renal consult, appreciate recs - Relace electrolytes, maintain euvolemia ID: Afebrile Endo: Previous hx of DM2 - HgA1C - TSH - maintain euglycemia and euvolemia DVT ppx: SCD GI ppx: Protonix 40mg Daily Patient case reviewed and discussed with attending - Date & Time Date: 11/03/17 Time: 05:46 <Michael Bradford MD - Last Filed: 11/03/17 10:37> Meds - Medications Medications: Current Medications Amlodipine Besylate (Norvasc) 10 mg PO DAILY [facility] Aspirin (Aspirin Chewable) 81 mg PO DAILY [facility] Clonidine HCl (Catapres) 0.2 mg PO TID [facility] Clopidogrel Bisulfate (Plavix) 75 mg PO DAILY [facility] Docusate Sodium (Colace) 100 mg PO TID [facility] Levetiracetam (Keppra 500mg Ivpb) 500 mg in 100 mls @ 460 mls/hr IV Q12 [facility] Last Admin: 11/03/17 10:06 Dose: 460 mls/hr Labetalol HCl 500 mg/ Sodium (Chloride) 500 mls @ 30 mls/hr IV .[id number] PRN; Protocol; 0.5 MG/MIN PRN Reason: TITRATE PER MD ORDER Last Admin: 11/03/17 10:07 Dose: 3 mg/min, 180 mls/hr Labetalol HCl (Trandate) 300 mg PO TID [facility] Levothyroxine Sodium (Synthroid) 75 mcg PO 0600 [facility] Lisinopril (Zestril) 40 mg PO DAILY [facility] Lorazepam (Ativan) 2 mg IVP Q4H PRN; Protocol PRN Reason: Seizure activity Pantoprazole Sodium (Protonix Inj) 40 mg IVP DAILY [facility] Last Admin: 11/03/17 10:04 Dose: 40 mg Sildenafil Citrate (Revatio) 20 mg PO DAILY [facility] Results - Vital Signs Recent Vital Signs: Last Vital Signs Temp 98 F 11/03/17 05:31 Pulse 72 11/03/17 07:50 Resp 18 11/03/17 07:50 BP 187/85 H 11/03/17 07:45 Pulse Ox 96 11/03/17 07:50 - Labs Result Diagrams: 11/03/17 06:20 11/03/17 06:20 Labs: Laboratory Results - last 24 hr 11/03/17 11/03/17 11/03/17 06:20 06:20 06:20 WBC 7.5 D RBC 3.69 Hgb 10.5 L Hct 34.7 L MCV 94.0 MCH 28.5 MCHC 30.3 L RDW 15.9 H Plt Count 235 MPV 10.1 Gran % 76.9 H Lymph % (Auto) 15.7 L [place] % (Auto) 6.3 H Eos % (Auto) 0.7 L Baso % (Auto) 0.4 Gran # 5.79 Lymph # (Auto) 1.2 [place] # (Auto) 0.5 Eos # (Auto) 0.1 Baso # (Auto) 0.03 Sodium 137 Potassium 5.0 Chloride 93 L Carbon Dioxide 32 Anion Gap 17 BUN 59 H Creatinine 6.4 H Est GFR ( Amer) 8 Est GFR (Non-Af Amer) 7 Random Glucose 106 Calcium 10.0 Phosphorus 7.8 H Magnesium 2.4 H Total Bilirubin 0.5 AST 25 ALT 28 Alkaline Phosphatase 101 Total Creatine Kinase 38 Troponin I 0.14 H* D Total Protein 5.7 L Albumin 3.4 Globulin 2.3 Albumin/Globulin Ratio 1.5 Triglycerides 92 Cholesterol 107 L LDL Cholesterol Direct 47 HDL Cholesterol 35 Thyroxine (T4) 6.0 TSH 3rd Generation 3.80 Attending/Attestation - Attestation I have personally seen and examined this patient.: Yes I have fully participated in the care of the patient.: Yes I have reviewed all pertinent clinical information: Yes Notes (Text): -I agree with the above ICU consult note completed by the resident physician with the following additions and/or changes: -The patient is a 57 year old woman with a history of uncontrolled HTN, hemorrhagic CVA (09/2017)(without residual deficits), diastolic CHF, CAD (s/p PCI), PAD (s/p BLE arterial bypass in 2016), hypothyroidism, ESRD (T//Thu), COPD and pulmonary HTN who is being admitted to the ICU with multiple acute issues including: hypertensive emergency, acute (vs subacute) ischemic CVA, tonic-clonic seizures and AMS (ddx: post-ictal +/- hypertensive encephalopathy + /- CVA). Due to her recent history of hemorrhagic CVA 1 month prior, she is not a candidate for t-PA. Therefore, her markedly elevated BP (>240/120 in ED) will very gradually be reduced using Labetalol drip, allowing for permissive HTN ( with goal NB=710/90 overnight). Also, hourly neuro checks and seizure precautions have been ordered. Neurology has been consulted and an MRI-brain (w/ o) has been ordered to better evaluate the extent of ischemia. Per the son, the patient also reported some chest pain after her seizures and thus serial trops and EKGs and a cardiology consult have been ordered. ASA per rectum x 1 was already given in the ED. PRN IV Ativan and Keppra 500mg IV Q12 will be started as well. Also, nephrology has been consulted for dialysis, per the patients routine schedule. Oral home meds will be resumed after patients mental status improves and she passes a swallow evaluation.
[2017-11-03 06:29] LABS: BASO # 0.03 K/mm3 (0.0-2.0); BASO % 0.4 % (0.0-3.0); EOS # 0.1 (0.0-0.7); EOS % 0.7 % (1.5-5.0); GRAN # 5.79 (1.4-6.5); GRAN % 76.9 % (50.0-68.0); HEMOGLOBIN 10.5 g/dL (12.0-16.0); LYMPH # 1.2 (1.2-3.4); LYMPH % 15.7 % (22.0-35.0); MEAN CORPUSCULAR HEMOGLOBIN 28.5 pg (25.0-35.0); MEAN CORPUSCULAR HGB CONC 30.3 g/dl (31.0-37.0); MEAN PLATELET VOLUME 10.1 fl (7.0-11.0); MONO # 0.5 (0.1-0.6); MONO % 6.3 % (1.0-6.0); RBC 3.69 10^6/uL (3.5-6.1); RED CELL DISTRIBUTION WIDTH 15.9 % (11.5-14.5); WHITE BLOOD COUNT 7.5 10^3/ul (4.5-11.0)
[2017-11-03] MEDS: Labetalol 500 MG in Sodium Chloride 0.9% 400 ML IV PRN ×2 (06:29→10:07)
--- NOTE | 2017-11-03 06:59 | CP.CCUPN ---
<Aylin Wilcox - Last Filed: 11/03/17 11:38> CCU Subjective - Physician Review Subjective (Free Text): 11/03/17 09:13 Patient was admitted overnight due to seizure like activity last night and was found to have acute/subacute on chronic ischemic CVA. Patient was out of the window thus didn't get TPA. Patient was in hypertensive emergency,was placed on labetalol drip. Patient had 2 more episode of seizure while in the ED, no seizures since being in the ICU. Patient appears somnolent this AM. However patient following commands. Critical Care Time Spent (in minutes): 45 CCU Objective - Vital Signs / Intake & Output Vital Signs (Last 4 hours): Vital Signs Temp Pulse Resp BP Pulse Ox 11/03/17 06:38 74 19 206/94 H 100 11/03/17 06:30 75 30 H 100 11/03/17 06:29 74 211/98 H 11/03/17 06:20 75 19 100 11/03/17 06:10 75 33 H 100 11/03/17 06:00 74 25 H 211/98 H 100 11/03/17 05:58 73 31 H 205/95 H 100 11/03/17 05:50 74 21 100 11/03/17 05:40 76 21 100 11/03/17 05:36 76 37 H 230/116 H 100 11/03/17 05:31 98 F 75 20 211/98 H 11/03/17 05:30 75 20 100 11/03/17 05:26 80 32 H 100 11/03/17 05:01 74 19 212/102 H 100 11/03/17 04:53 74 19 236/110 H 100 11/03/17 04:37 82 18 203/90 H 96 Intake and Output (Last 8hrs): Intake & Output 11/02/17 11/02/17 11/03/17 14:59 22:59 06:59 Intake Total 50 Balance 50 Weight 96 lb 1 oz Intake: IV 50 Other: Voiding Method Bedpan - Physical Exam Head: Positive for: Atraumatic, Normocephalic Pupils: Positive for: PERRL Extroacular Muscles: Positive for: EOMI Conjunctiva: Positive for: Normal Mouth: Positive for: Moist Mucous Membranes Neck: Positive for: Normal Range of Motion Respiratory/Chest: Positive for: Clear to Auscultation, Good Air Exchange. Negative for: Respiratory Distress, Accessory Muscle Use Cardiovascular: Positive for: Tachycardic. Negative for: Murmurs Abdomen: Positive for: Normal Bowel Sounds. Negative for: Tenderness, Distention, Peritoneal Signs Back: Positive for: Normal Inspection Upper Extremity: Positive for: Normal Inspection, Normal ROM, Neurovascularly Intact. Negative for: Cyanosis, Edema Lower Extremity: Positive for: Normal Inspection, Normal ROM, Neurovascularly Intact. Negative for: Edema Neurological: Positive for: GCS=15, CN II-XII Intact, Speech Normal, Motor Func Grossly Intact, Normal Sensory Function, Other (+rigidity in the left upper and lower extremities. ) Skin: Positive for: Warm, Dry, Normal Color. Negative for: Rashes Psychiatric: Positive for: Oriented x 3, Depressed Mood, Lethargic - Medications Active Medications: Active Medications Generic Name Dose Route Start Last Admin Trade Name Freq PRN Reason Stop Dose Admin Levetiracetam 500 mg/ Sodium 105 mls @ 460 mls/hr 11/03/17 10:00 Chloride IV Q12 [facility] Labetalol HCl 500 mg/ Sodium 500 mls @ 30 mls/hr 11/03/17 05:58 11/03/17 06: 29 Chloride IV 2.5 mg/min .[id number] PRN 150 mls/hr TITRATE PER MD ORDER Administration Protocol 0.5 MG/MIN Lorazepam 2 mg 11/03/17 04:52 Ativan IVP Q4H PRN Seizure activity Protocol Pantoprazole Sodium 40 mg 11/03/17 10:00 Protonix Inj IVP DAILY FOR[facility], [facility]–1983 - Patient Studies Lab Studies: Lab Studies 11/03/17 11/03/17 Range/Units 06:20 06:20 WBC 7.5 D (4.5-11.0) 10^3/ul RBC 3.69 (3.5-6.1) 10^6/uL Hgb 10.5 L (12.0-16.0) g/dL Hct 34.7 L (36.0-48.0) % MCV 94.0 (80.0-105.0) fl MCH 28.5 (25.0-35.0) pg MCHC 30.3 L (31.0-37.0) g/dl RDW 15.9 H (11.5-14.5) % Plt Count 235 (120.0-450.0) 10^3/uL MPV 10.1 (7.0-11.0) fl Gran % 76.9 H (50.0-68.0) % Lymph % (Auto) 15.7 L (22.0-35.0) % [place] % (Auto) 6.3 H (1.0-6.0) % Eos % (Auto) 0.7 L (1.5-5.0) % Baso % (Auto) 0.4 (0.0-3.0) % Gran # 5.79 (1.4-6.5) Lymph # (Auto) 1.2 (1.2-3.4) [place] # (Auto) 0.5 (0.1-0.6) Eos # (Auto) 0.1 (0.0-0.7) Baso # (Auto) 0.03 (0.0-2.0) K/mm3 LDL Cholesterol Direct 47 (0-129) mg/dL Laboratory Results - last 24 hr 11/03/17 11/03/17 06:20 06:20 WBC 7.5 D RBC 3.69 Hgb 10.5 L Hct 34.7 L MCV 94.0 MCH 28.5 MCHC 30.3 L RDW 15.9 H Plt Count 235 MPV 10.1 Gran % 76.9 H Lymph % (Auto) 15.7 L [place] % (Auto) 6.3 H Eos % (Auto) 0.7 L Baso % (Auto) 0.4 Gran # 5.79 Lymph # (Auto) 1.2 [place] # (Auto) 0.5 Eos # (Auto) 0.1 Baso # (Auto) 0.03 LDL Cholesterol Direct 47 EKG/Cardiology Studies: Cardiology / EKG Studies 11/03/17 07:00 ELECTROCARDIOGRAM Q6H Comment: Reason For Exam: chest pain 11/03/17 13:00 ELECTROCARDIOGRAM Q6H Comment: Reason For Exam: chest pain 11/03/17 19:00 ELECTROCARDIOGRAM Q6H Comment: Reason For Exam: chest pain Fingerstick Blood Sugar Results: 112 Results Reviewed to Date: Yes Assessment/Plan - Assessment and Plan (Free Text) Assessment: Patient is a 57 year old female with past medical history of ESRD on dialysis (T /R/Sat), HTN, CHF, previous CVA with hemorrhagic conversion, seizures, CAD with stent, previous [place], PAD presented with seizure like activity and is admitted with acute/subacute ischemic CVA. Plan: Neuro: Acute/subacute ischemic stroke likely due to hypertensive emergency, s/p seizure activity on admission - Patient was out of the window for tpa thus patient didn't get tpa. - will obtain MRI and eeg - Neurology following - patient appears somnolent likely due to ativan - will continue with neuro checks - pending speech and swallow eval to resume plavix and asa. - PT/OT eval - head of bed elevated above 30 degrees. - seizure precaution, on keppra for prophylaxis and ativan prn - Goal to maintain BP below 220/120 in the first 24 hours. Pulm: h/o copd on home O2, stable, continue nasal cannula Cardio- Chest pain r/o acs- + troponin leak, no ST wave elevation on ekg, sr/o NSTEMI - cardio following, - pending swallow eval to resume home meds. - has h/o pulm htn- on revatio ID: Patient had leukocytosis on admission, but resolved, patient is afebrile. cultures sent, will monitor off of antibiotics. GI: Abdominal pain likely due to constipation in the setting of chronic opioid use- will consider miralax once patient undergoes swallow eval. zofran prn and protonix for gi prophylaxis. Renal: ESRD with electrolytes imbalance- On HD- will get HD today Endo: hypothyroidism- resume synthroid. Heme: h/h at baseline DVT prophylaxis: external compressive devices is contraindicated due to PAD. will start heparin sc. Skin: lower extremities wound- wound care consult. Patient seen, examined and case discussed with the show dog trainer. - Date & Time Date: 11/03/17 Time: 11:45 <Alexis Strauss - Last Filed: 11/03/17 11:57> CCU Objective - Vital Signs / Intake & Output Vital Signs (Last 4 hours): Vital Signs Pulse Resp BP Pulse Ox 11/03/17 10:50 69 43 H 98 11/03/17 10:45 69 17 195/68 H 99 11/03/17 10:40 70 21 99 11/03/17 10:30 70 27 H 195/86 H 98 11/03/17 10:20 70 30 H 98 11/03/17 10:15 70 26 H 196/88 H 98 11/03/17 10:10 70 35 H 98 11/03/17 10:00 70 44 H 192/86 H 99 11/03/17 09:50 69 29 H 99 11/03/17 09:45 71 38 H 190/80 H 98 11/03/17 09:40 71 21 99 11/03/17 09:30 69 27 H 174/76 H 97 11/03/17 09:20 73 42 H 99 11/03/17 09:15 71 37 H 198/85 H 97 11/03/17 09:10 71 21 97 11/03/17 09:03 72 203/83 H 97 11/03/17 09:00 71 32 H 97 11/03/17 08:50 71 97 11/03/17 08:45 71 38 H 199/85 H 97 11/03/17 08:40 72 19 96 11/03/17 08:30 72 21 181/83 H 96 11/03/17 08:20 72 21 97 11/03/17 08:15 72 17 194/86 H 96 11/03/17 08:10 71 21 96 11/03/17 08:00 72 21 188/90 H 96 Intake and Output (Last 8hrs): Intake & Output 11/02/17 11/03/17 11/03/17 22:59 06:59 14:59 Intake Total 50 500 Balance 50 500 Weight 96 lb 1 oz Intake: IV 50 500 Other: Voiding Method Bedpan - Medications Active Medications: Active Medications Generic Name Dose Route Start Last Admin Trade Name Wiliq PRN Reason Stop Dose Admin Amlodipine Besylate 10 mg 11/04/17 10:00 Norvasc PO DAILY [facility], [facility]–1983 Aspirin 81 mg 11/04/17 10:00 Aspirin Chewable PO DAILY [facility]1983 Clonidine HCl 0.2 mg 11/03/17 14:00 Catapres PO TID [facility], [facility]1983 Clopidogrel Bisulfate 75 mg 11/04/17 10:00 Plavix PO DAILY [facility] Docusate Sodium 100 mg 11/03/17 14:00 Colace PO TID [facility]1983 Levetiracetam 500 mg in 100 mls @ 460 mls/hr 11/03/17 10:00 11/03/17 10:06 Keppra 500mg Ivpb IV 460 mls/hr Q12 ZANA Administration Labetalol HCl 500 mg/ Sodium 500 mls @ 30 mls/hr 11/03/17 05:58 11/03/17 10: 07 Chloride IV 3 mg/min .[id number] PRN 180 mls/hr TITRATE PER MD ORDER Administration Protocol 0.5 MG/MIN Labetalol HCl 300 mg 11/03/17 14:00 Trandate PO TID ZANA Levothyroxine Sodium 75 mcg 11/04/17 06:00 Synthroid PO 0600 ZANA Lisinopril 40 mg 11/03/17 10:23 Zestril PO DAILY ZANA Lorazepam 2 mg 11/03/17 04:52 Ativan IVP Q4H PRN Seizure activity Protocol Pantoprazole Sodium 40 mg 11/03/17 10:00 11/03/17 10:04 Protonix Inj IVP 40 mg DAILY ZANA Administration Sevelamer HCl 1,600 mg 11/03/17 14:00 Renagel PO TID ZANA Sildenafil Citrate 20 mg 11/04/17 10:00 Revatio PO DAILY ZANA - Patient Studies Lab Studies: Lab Studies 11/03/17 11/03/17 11/03/17 Range/Units 06:20 06:20 06:20 WBC 7.5 D (4.5-11.0) 10^3/ul RBC 3.69 (3.5-6.1) 10^6/uL Hgb 10.5 L (12.0-16.0) g/dL Hct 34.7 L (36.0-48.0) % MCV 94.0 (80.0-105.0) fl MCH 28.5 (25.0-35.0) pg MCHC 30.3 L (31.0-37.0) g/dl RDW 15.9 H (11.5-14.5) % Plt Count 235 (120.0-450.0) 10^3/uL MPV 10.1 (7.0-11.0) fl Gran % 76.9 H (50.0-68.0) % Lymph % (Auto) 15.7 L (22.0-35.0) % [place] % (Auto) 6.3 H (1.0-6.0) % Eos % (Auto) 0.7 L (1.5-5.0) % Baso % (Auto) 0.4 (0.0-3.0) % Gran # 5.79 (1.4-6.5) Lymph # (Auto) 1.2 (1.2-3.4) [place] # (Auto) 0.5 (0.1-0.6) Eos # (Auto) 0.1 (0.0-0.7) Baso # (Auto) 0.03 (0.0-2.0) K/mm3 Sodium 137 (132-148) mmol/L Potassium 5.0 (3.6-5.0) mmol/L Chloride 93 L (98-107) mmol/L Carbon Dioxide 32 (21-33) mmol/L Anion Gap 17 (10-20) BUN 59 H (7-21) mg/dL Creatinine 6.4 H (0.7-1.2) mg/dl Est GFR ( Amer) 8 Est GFR (Non-Af Amer) 7 Random Glucose 106 (70-110) mg/dL Calcium 10.0 (8.4-10.5) mg/dL Phosphorus 7.8 H (2.5-4.5) mg/dL Magnesium 2.4 H (1.7-2.2) mg/dL Total Bilirubin 0.5 (0.2-1.3) mg/dL AST 25 (14-36) U/L ALT 28 (7-56) U/L Alkaline Phosphatase 101 (38-126) U/L Total Creatine Kinase 38 (35-230) U/L Troponin I 0.14 H* D ng/mL Total Protein 5.7 L (5.8-8.3) g/dL Albumin 3.4 (3.0-4.8) g/dL Globulin 2.3 gm/dL Albumin/Globulin Ratio 1.5 (1.1-1.8) Triglycerides 92 (35-160) mg/dL Cholesterol 107 L (130-200) mg/dL LDL Cholesterol Direct 47 (0-129) mg/dL HDL Cholesterol 35 (29-60) mg/dL Thyroxine (T4) 6.0 (5.5-11.0) ug/dL TSH 3rd Generation 3.80 (0.46-4.68) mIU/mL Laboratory Results - last 24 hr 11/03/17 11/03/17 11/03/17 06:20 06:20 06:20 WBC 7.5 D RBC 3.69 Hgb 10.5 L Hct 34.7 L MCV 94.0 MCH 28.5 MCHC 30.3 L RDW 15.9 H Plt Count 235 MPV 10.1 Gran % 76.9 H Lymph % (Auto) 15.7 L [place] % (Auto) 6.3 H Eos % (Auto) 0.7 L Baso % (Auto) 0.4 Gran # 5.79 Lymph # (Auto) 1.2 [place] # (Auto) 0.5 Eos # (Auto) 0.1 Baso # (Auto) 0.03 Sodium 137 Potassium 5.0 Chloride 93 L Carbon Dioxide 32 Anion Gap 17 BUN 59 H Creatinine 6.4 H Est GFR ( Amer) 8 Est GFR (Non-Af Amer) 7 Random Glucose 106 Calcium 10.0 Phosphorus 7.8 H Magnesium 2.4 H Total Bilirubin 0.5 AST 25 ALT 28 Alkaline Phosphatase 101 Total Creatine Kinase 38 Troponin I 0.14 H* D Total Protein 5.7 L Albumin 3.4 Globulin 2.3 Albumin/Globulin Ratio 1.5 Triglycerides 92 Cholesterol 107 L LDL Cholesterol Direct 47 HDL Cholesterol 35 Thyroxine (T4) 6.0 TSH 3rd Generation 3.80 EKG/Cardiology Studies: Cardiology / EKG Studies 11/03/17 07:00 ELECTROCARDIOGRAM Q6H Comment: Reason For Exam: chest pain 11/03/17 13:00 ELECTROCARDIOGRAM Q6H Comment: Reason For Exam: chest pain 11/03/17 19:00 ELECTROCARDIOGRAM Q6H Comment: Reason For Exam: chest pain Critical Care Progress Note - Nutrition Nutrition: Nutrition Category Date Time Status NPO Diet [DIET] Diets 11/03/17 Breakfast Ordered Assessment/Plan - Assessment and Plan (Free Text) Plan: Patient seen and examined, on rounds with resident, agree with note with following additions/exceptions: Patient is 57yo female with PMhx of COPD on home O2, CVA, Seizure disorder, ESRD on HD, ,,Thu, hypothyroidism, presented with AMS and seizure like activity at home and in the ER. CT head with acute/subacute ischemic stroke. Currently afebrile, HD stable, comfortable, sat 100% on 2LNC, opens eyes follows commands, protecting airway. EEG and MRI pending. On Cardene drip. Patient was also noted to be in HTN emergency, SBP 240-250s. Seizure disorder Acute CVA COPD ESRD on HD Hypothyroidism HTN emergency Recommend: - supp o2 as needed - lui culture, UCx, BCx, check procal, monitor off ABx - Cardene drip, goal MAP reduction by no more than 25% in the first 24hr - monitor HH - keep NPO, pending speech swallow eval, if passes would transition to home meds , and titrate off Cardene drip - HD as per renal - MRI brain - EEG - Plavix - Statin - ECHO - Neurology follow up - GI ppx - DVT ppx - Monitor in MICU critical care time 40 minutes
[2017-11-03 08:12] LABS: ALB/GLOB RATIO 1.5 (1.1-1.8); ALBUMIN 3.4 g/dL (3.0-4.8); MAGNESIUM 2.4 mg/dL (1.7-2.2); TROPONIN I 0.14 ng/mL
--- NOTE | 2017-11-03 09:03 | RAD ---
HISTORY: seizure COMPARISON: 11/01/2017 FINDINGS: LUNGS: No active pulmonary disease. PLEURA: No significant pleural effusion identified, no pneumothorax apparent. CARDIOVASCULAR: Mild cardiomegaly OSSEOUS STRUCTURES: No significant abnormalities. VISUALIZED UPPER ABDOMEN: Normal. OTHER FINDINGS: Dialysis catheter IMPRESSION: No active disease.
[2017-11-03] MEDS: levETIRAcetam 500mg IVPB 500 MG/100 ML BAG IV SCH ×2 (10:06→21:25)
[2017-11-03] MEDS ORDERED: Lidocaine 2% Inj (20ml) ONE (11:34)
[2017-11-03] MEDS ORDERED: HEPARIN SODIUM/NS 1,000 ML IV ONE (11:35)
[2017-11-03] MEDS ORDERED: Lidocaine 2% Jelly (Uro-Jet) TOP ONE (12:26)
--- NOTE | 2017-11-03 12:31 | CARD ---
APPROVED REPORT EKG Measurement Heart [id number] <Conclusion> Normal sinus rhythm Possible Left atrial enlargement Left ventricular hypertrophy with repolarization abnormality Prolonged QT Abnormal ECG
--- NOTE | 2017-11-03 12:32 | CARD ---
APPROVED REPORT EKG Measurement Heart [id number] <Conclusion> Sinus tachycardia Biatrial enlargement Left ventricular hypertrophy with repolarization abnormality Abnormal ECG
--- NOTE | 2017-11-03 14:16 | VASCULAR ---
PROCEDURE: Ultrasound and fluoroscopically placed left axillary vein PICC line HISTORY: Limited IV access. Needs PICC line. PHYSICIAN(S): Lucio Thomas MD. TECHNIQUE: The relative risks and indications of the procedure were explained to the patient and consent obtained. The patient was placed supine on the arteriogram table and preliminary sonography of the left upper extremity performed. The left axillary vein was selected for placement. The left shoulder was prepped and draped usual sterile fashion. 1% Xylocaine was used to anesthetize the skin and soft tissues at the puncture site above the elbow. The left axillary vein was punctured under direct ultrasound guidance with a micropuncture set. A 0.018 guidewire was advanced centrally and used to measure the length to the SVC/RA junction. A 5 [place] dual-lumen PICC line 23 cm long was advanced to the SVC/RA junction. The catheter was flushed and secured. The patient tolerated the procedure well. IMPRESSION: 1. Ultrasound and fluoroscopically placed left axillary PICC line. A 5 [place] dual-lumen PICC line 23 cm long was advanced to the SVC/RA junction.
--- NOTE | 2017-11-03 15:51 | CP.PCM.CON ---
<Richelle Bains - Last Filed: 11/03/17 15:44> History of Present Illness - History of Present Illness History of Present Illness: Podiatry Consult Note - Dr. Forte 57 year old female patient PMHx ESRD on HD, HTN, CHF, peptic ulcer disease, chronic anemia seen and evaluated in ICU for painful right leg ulceration. Patient well known to podiatry service. Patient sleeping at time of visit, hemodialysis in progress. Patient extremely lethargic, falling asleep during interview. Patient reports severe pain to right leg ulcer, apprehensive to have dressing removed. Denies N/V/F/D/C. Review of Systems - Review of Systems All systems: reviewed and no additional remarkable complaints except (as per HPI ) Past Patient History - Infectious Disease Hx of Infectious Diseases: None - Tetanus Immunizations Tetanus Immunization: Unknown - Past Social History Smoking Status: Former Smoker - CARDIAC Hx Cardiac Disorders: Yes Hx Congestive Heart Failure: Yes Hx Hypertension: Yes - PULMONARY Hx Respiratory Disorders: Yes (USED TO SMOKE 4 CIG A DAY.) Hx Chronic Obstructive Pulmonary Disease (COPD): Yes Hx Pneumonia: Yes Hx Sleep Apnea: Yes - NEUROLOGICAL Hx Neurological Disorder: Yes (numbness ble when ambulating,RIGHT HAND NUMB) Hx Migraine: Yes Other/Comment: cold extremities - HEENT Hx HEENT Problems: Yes (hard of hearing,RIGHT EAR DEAF) Hx Blind: No Hx Cataracts: No Hx Deafness: No Hx Difficulty Chewing: No Hx Epistaxis: No Hx Glaucoma: No Hx Macular Degeneration: No Other/Comment: tinnitus, - RENAL Hx Chronic Kidney Disease: Yes ([place]) Hx Dialysis: Yes ([facility]) Date of Last Dialysis Treatment: 10/15/17 Hx Renal Failure: Yes - ENDOCRINE/METABOLIC Hx Endocrine Disorders: Yes Hx Hypothyroidism: Yes - HEMATOLOGICAL/ONCOLOGICAL Hx Blood Disorders: No Hx Cancer: No - INTEGUMENTARY Hx Dermatological Problems: No (non healing sugical wound to right ankle) Other/Comment: r ankle wound,non healing surgical wound cared for by dr parada at wound center, wound 5.5 X 3.5 cm ,right buttocks red and open to air, SCARRED AREA.multiple skin discolorations to ble,EDEMA +1.Left thumb area with a 0.7 scabbed wound from rubbing to wheelchair. - MUSCULOSKELETAL/RHEUMATOLOGICAL Hx Musculoskeletal Disorders: Yes Hx Falls: Yes Hx Unsteady Gait: Yes (CANE,WALKER,WHEELCHAIR) - GASTROINTESTINAL Hx Gastrointestinal Disorders: Yes (FECAL IMPACTION,CONSTIPATION,POOR APPETITE, GASTRITIS) Hx Diverticulitis: Yes Other/Comment: poor appetite weight loss, diverticulosis, bloating, gastroenteritis - GENITOURINARY/GYNECOLOGICAL Hx Genitourinary Disorders: Yes (voids very little,ovarian cyst) - PSYCHIATRIC Hx Psychophysiologic Disorder: Yes Hx Anxiety: Yes Hx Bipolar Disorder: No Hx Depression: No Hx Emotional Abuse: No Hx Hallucinations: No Hx Panic Symptoms: No Hx Post Traumatic Stress Disorder: No Hx Psychosis: No Hx Physical Abuse: No Hx Schizophrenia: No Hx Sexual Abuse: No Hx Substance Use: No - SURGICAL HISTORY Hx Mastectomy: No - ANESTHESIA Hx Anesthesia: Yes Hx Anesthesia Reactions: No Hx Malignant Hyperthermia: No Meds Allergies/Adverse Reactions: Allergies Allergy/AdvReac Type Severity Reaction Status Date / Time ciprofloxacin Allergy RASH Verified 10/15/17 13:47 hydralazine Allergy RASH Verified 10/15/17 13:47 vancomycin Allergy SHORTNESS Verified 10/15/17 13:[address] dye Allergy RASH Uncoded 10/15/17 13:47 - Medications Medications: Current Medications Amlodipine Besylate (Norvasc) 10 mg PO DAILY [facility] Aspirin (Aspirin Chewable) 81 mg PO DAILY [facility] Clonidine HCl (Catapres) 0.2 mg PO TID [facility] Last Admin: 11/03/17 15:36 Dose: Not Given Clopidogrel Bisulfate (Plavix) 75 mg PO DAILY [facility] Docusate Sodium (Colace) 100 mg PO TID [facility] Last Admin: 11/03/17 15:37 Dose: Not Given Levetiracetam (Keppra 500mg Ivpb) 500 mg in 100 mls @ 460 mls/hr IV Q12 [facility] Last Admin: 11/03/17 10:06 Dose: 460 mls/hr Labetalol HCl 500 mg/ Sodium (Chloride) 500 mls @ 30 mls/hr IV .[id number] PRN; Protocol; 0.5 MG/MIN PRN Reason: TITRATE PER MD ORDER Last Titration: 11/03/17 13:34 Dose: Infused Labetalol HCl (Trandate) 300 mg PO TID [facility] Last Admin: 11/03/17 15:37 Dose: Not Given Levothyroxine Sodium (Synthroid) 75 mcg PO 0600 [facility] Lisinopril (Zestril) 40 mg PO DAILY [facility] Last Admin: 11/03/17 13:54 Dose: Not Given Lorazepam (Ativan) 2 mg IVP Q4H PRN; Protocol PRN Reason: Seizure activity Pantoprazole Sodium (Protonix Inj) 40 mg IVP DAILY [facility] Last Admin: 11/03/17 10:04 Dose: 40 mg Sevelamer HCl (Renagel) 1,600 mg PO TID [facility] Last Admin: 11/03/17 15:37 Dose: Not Given Sildenafil Citrate (Revatio) 20 mg PO DAILY [facility] Physical Exam - Constitutional Appears: No Acute Distress, Chronically Ill - Extremities Exam Additional comments: Vasc: DP/PT pulses palpable 2/4 B/L. Skin temperature warm to warm from proximal to distal. CFT < 3 seconds to all digits B/L. No pedal edema noted. 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 Base is fibrogranular, mostly granular, with periwound erythema. No malodor, no purulence, no tunneling, tracking, undermining, probe to bone or fluctuance. No maceration, xerosis, abnormal pigmentation or abnormal growths noted to b/l LE. Neuro: Epicritic and protective sensation grossly intact B/L. Ortho: Severe pain on palpation right leg ulceration. - Neurological Exam Neurological exam: Oriented x3 - Psychiatric Exam Psychiatric exam: Flat Affect Results - Vital Signs Recent Vital Signs: Last Vital Signs Temp 98 F 11/03/17 05:31 Pulse 64 11/03/17 15:37 Resp 20 11/03/17 14:20 BP 148/67 11/03/17 15:37 Pulse Ox 100 11/03/17 14:20 - Labs Result Diagrams: 11/03/17 06:20 11/03/17 06:20 Labs: Laboratory Results - last 24 hr 11/03/17 11/03/17 11/03/17 06:20 06:20 06:20 WBC 7.5 D RBC 3.69 Hgb 10.5 L Hct 34.7 L MCV 94.0 MCH 28.5 MCHC 30.3 L RDW 15.9 H Plt Count 235 MPV 10.1 Gran % 76.9 H Lymph % (Auto) 15.7 L Banner % (Auto) 6.3 H Eos % (Auto) 0.7 L Baso % (Auto) 0.4 Gran # 5.79 Lymph # (Auto) 1.2 Banner # (Auto) 0.5 Eos # (Auto) 0.1 Baso # (Auto) 0.03 Sodium 137 Potassium 5.0 Chloride 93 L Carbon Dioxide 32 Anion Gap 17 BUN 59 H Creatinine 6.4 H Est GFR ( Amer) 8 Est GFR (Non-Af Amer) 7 Random Glucose 106 Hemoglobin A1c 4.7 Calcium 10.0 Phosphorus 7.8 H Magnesium 2.4 H Total Bilirubin 0.5 AST 25 ALT 28 Alkaline Phosphatase 101 Total Creatine Kinase 38 Troponin I 0.14 H* D Total Protein 5.7 L Albumin 3.4 Globulin 2.3 Albumin/Globulin Ratio 1.5 Triglycerides 92 Cholesterol 107 L LDL Cholesterol Direct 47 HDL Cholesterol 35 Thyroxine (T4) TSH 3rd Generation 11/03/17 11/03/17 06:20 13:15 WBC RBC Hgb Hct MCV MCH MCHC RDW Plt Count MPV Gran % Lymph % (Auto) Banner % (Auto) Eos % (Auto) Baso % (Auto) Gran # Lymph # (Auto) Banner # (Auto) Eos # (Auto) Baso # (Auto) Sodium Potassium Chloride Carbon Dioxide Anion Gap BUN Creatinine Est GFR ( Amer) Est GFR (Non-Af Amer) Random Glucose Hemoglobin A1c Calcium Phosphorus Magnesium Total Bilirubin AST ALT Alkaline Phosphatase Total Creatine Kinase Troponin I 0.18 H* D Total Protein Albumin Globulin Albumin/Globulin Ratio Triglycerides Cholesterol LDL Cholesterol Direct HDL Cholesterol Thyroxine (T4) 6.0 TSH 3rd Generation 3.80 Assessment & Plan - Assessment and Plan (Free Text) Assessment: 57 year old female patient PMHx ESRD on HD, HTN, CHF, peptic ulcer disease, chronic anemia with 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 Forte Afebrile, WBC 7.5 (decreasing, yesterday 14.9) Right leg ulcer cleansed with sterile saline and dressed with Optifoam - stable , will continue to monitor Multipodus boots ordered - to be worn at all times in bed Podiatry will continue to follow while in house <Dougie Forte - Last Filed: 11/03/17 16:09> Meds - Medications Medications: Current Medications Amlodipine Besylate (Norvasc) 10 mg PO DAILY [facility] Aspirin (Aspirin Chewable) 81 mg PO DAILY [facility] Clonidine HCl (Catapres) 0.2 mg PO TID [facility] Last Admin: 11/03/17 15:36 Dose: Not Given Clopidogrel Bisulfate (Plavix) 75 mg PO DAILY [facility] Docusate Sodium (Colace) 100 mg PO TID [facility] Last Admin: 11/03/17 15:37 Dose: Not Given Heparin Sodium (Porcine) (Heparin) 5,000 units SC Q12 [facility] PRN Reason: Protocol Levetiracetam (Keppra 500mg Ivpb) 500 mg in 100 mls @ 460 mls/hr IV Q12 [facility] Last Admin: 11/03/17 10:06 Dose: 460 mls/hr Labetalol HCl 500 mg/ Sodium (Chloride) 500 mls @ 30 mls/hr IV .[id number] PRN; Protocol; 0.5 MG/MIN PRN Reason: TITRATE PER MD ORDER Last Titration: 11/03/17 13:34 Dose: Infused Labetalol HCl (Trandate) 300 mg PO TID [facility] Last Admin: 11/03/17 15:37 Dose: Not Given Levothyroxine Sodium (Synthroid) 75 mcg PO 0600 [facility] Lisinopril (Zestril) 40 mg PO DAILY [facility] Last Admin: 11/03/17 13:54 Dose: Not Given Lorazepam (Ativan) 2 mg IVP Q4H PRN; Protocol PRN Reason: Seizure activity Pantoprazole Sodium (Protonix Inj) 40 mg IVP DAILY [facility] Last Admin: 11/03/17 10:04 Dose: 40 mg Sevelamer HCl (Renagel) 1,600 mg PO TID [facility] Last Admin: 11/03/17 15:37 Dose: Not Given Sildenafil Citrate (Revatio) 20 mg PO DAILY [facility] Results - Vital Signs Recent Vital Signs: Last Vital Signs Temp 98 F 11/03/17 05:31 Pulse 64 11/03/17 15:37 Resp 20 11/03/17 14:20 BP 148/67 11/03/17 15:37 Pulse Ox 100 11/03/17 14:20 - Labs Result Diagrams: 11/03/17 06:20 11/03/17 06:20 Labs: Laboratory Results - last 24 hr 11/03/17 11/03/17 11/03/17 06:20 06:20 06:20 WBC 7.5 D RBC 3.69 Hgb 10.5 L Hct 34.7 L MCV 94.0 MCH 28.5 MCHC 30.3 L RDW 15.9 H Plt Count 235 MPV 10.1 Gran % 76.9 H Lymph % (Auto) 15.7 L Banner % (Auto) 6.3 H Eos % (Auto) 0.7 L Baso % (Auto) 0.4 Gran # 5.79 Lymph # (Auto) 1.2 Banner # (Auto) 0.5 Eos # (Auto) 0.1 Baso # (Auto) 0.03 Sodium 137 Potassium 5.0 Chloride 93 L Carbon Dioxide 32 Anion Gap 17 BUN 59 H Creatinine 6.4 H Est GFR ( Amer) 8 Est GFR (Non-Af Amer) 7 Random Glucose 106 Hemoglobin A1c 4.7 Calcium 10.0 Phosphorus 7.8 H Magnesium 2.4 H Total Bilirubin 0.5 AST 25 ALT 28 Alkaline Phosphatase 101 Total Creatine Kinase 38 Troponin I 0.14 H* D Total Protein 5.7 L Albumin 3.4 Globulin 2.3 Albumin/Globulin Ratio 1.5 Triglycerides 92 Cholesterol 107 L LDL Cholesterol Direct 47 HDL Cholesterol 35 Thyroxine (T4) TSH 3rd Generation 11/03/17 11/03/17 06:20 13:15 WBC RBC Hgb Hct MCV MCH MCHC RDW Plt Count MPV Gran % Lymph % (Auto) Banner % (Auto) Eos % (Auto) Baso % (Auto) Gran # Lymph # (Auto) Banner # (Auto) Eos # (Auto) Baso # (Auto) Sodium Potassium Chloride Carbon Dioxide Anion Gap BUN Creatinine Est GFR ( Amer) Est GFR (Non-Af Amer) Random Glucose Hemoglobin A1c Calcium Phosphorus Magnesium Total Bilirubin AST ALT Alkaline Phosphatase Total Creatine Kinase Troponin I 0.18 H* D Total Protein Albumin Globulin Albumin/Globulin Ratio Triglycerides Cholesterol LDL Cholesterol Direct HDL Cholesterol Thyroxine (T4) 6.0 TSH 3rd Generation 3.80 Attending/Attestation - Attestation I have personally seen and examined this patient.: Yes I have fully participated in the care of the patient.: Yes I have reviewed all pertinent clinical information: Yes
[2017-11-03] MEDS: Nicardipine 20 MG/200 ML 20 MG/200 ML BAG IV PRN ×2 (16:40→21:26)
--- NOTE | 2017-11-03 17:30 | CON ---
DATE: 11/03/2017 NEUROLOGY CONSULTATION CHIEF COMPLAINT: Seizure. HISTORY OF PRESENTING ILLNESS: The patient is a 57-year-old patient with past medical history of end-stage renal disease, on hemodialysis; hypertension; CHF; history of previous CVA with hemorrhagic conversion; seizure; coronary artery disease, status post stent; peripheral arterial disease; presented with seizure like activity and was loaded with Keppra, found to have elevated systolic and diastolic blood pressures, systolic above 200 and diastolic above 110 and was slowly being placed on labetalol drip. Underwent a CAT scan of the head showed pus or questionable acute/subacute lacunar infarct in the left thalamus as well as evidence of PRES given that there was progressive hypodensity in the region of the right occipital and parietal cortices, which is consistent with hypertensive encephalopathy as well as had chronic encephalomalacia in the inferior left cerebellar lobe, which is consistent with old infarction. Currently, the patient is undergoing dialysis. The patient is currently on Keppra 500 mg IV q.12 and on aspirin and Plavix for stroke prevention. EEG is being completed. MRI is pending. REVIEW OF SYSTEMS: A 14-point review of systems is negative except as per the HPI. ALLERGIES: ALLERGIC TO CIPROFLOXACIN, HYDRALAZINE, VANCOMYCIN, DYE. MEDICATIONS: Reviewed by nurse reconciliation sheet. SOCIAL HISTORY: No illicit drug use, smoking, or EtOH abuse at this time. PAST MEDICAL HISTORY: End-stage renal disease, on hemodialysis; hypertension; CHF; history of previous CVA with hemorrhagic conversion; seizures; coronary artery disease, status post stent; previous VA; peripheral arterial disease. FAMILY HISTORY: Noncontributory. LABORATORY DATA: Sodium is 137, potassium 5, chloride 93, carbon dioxide 32. BUN of 59, creatinine of 6.4. Random glucose of 106. Elevated troponins. PHYSICAL EXAMINATION: VITAL SIGNS: The patient is afebrile, pulse rate of 64, blood pressure 148/67, respiratory rate 20, oxygen saturation 100% by nasal cannula. GENERAL: The patient is drowsy, in no acute distress. HEENT: Atraumatic, normocephalic. PERRLA. Extraocular muscles intact. NECK: Supple. No JVD, no adenopathy noted. LUNGS: Clear to auscultation. No adventitious sounds. HEART: S1, S2, normal rate and rhythm. No murmurs, rubs, or gallops. ABDOMEN: Soft, nontender, nondistended. Bowel sounds present. EXTREMITIES: No clubbing, no cyanosis. Peripheral pulses 2+ felt bilaterally. NEUROLOGIC: The patient is drowsy, lethargic. Cranial nerves II through XII are intact. Motor exam: Moving all extremities spontaneously. Less finger tap movements on the right compared to the left. Sensory exam: Withdraws to localized noxious stimulus. Coordination and gait deferred for now. DTRs are 1+ throughout. ASSESSMENT AND PLAN: This is a 57-year-old woman with past medical history of end-stage renal disease, on hemodialysis; hypertension; congestive heart failure; previous cerebrovascular accident with hemorrhagic conversion; seizures; coronary artery disease, status post stent; previous myocardial infarction; peripheral arterial disease; presented with seizure-like activity, found to have acute on subacute left thalamic lacunar infarct, most likely secondary to hypertensive emergency and diffuse atherosclerotic disease and found to have seizures. CT scan of the head also showed evidence of PRES associated, there was progressive hypodensity in the region of the right occipital and parietal cortices, which is all secondary to hypertensive emergency. Seizures secondary to hypertensive emergency, superimposed underlying acute/subacute left thalamic infarct. At this time, recommend: 1. Continue with Keppra 500 mg IV q.12. 2. EEG. 3. MRI of the brain once stable. 4. Monitor electrolytes and correct accordingly. 5. Keep blood pressures to a level of 120 to 130 and diastolic 70 to 80 in order to improve her PRES like symptoms. 6. Monitor electrolytes and correct accordingly, and continue GI and DVT prophylaxis. Thank you for this consult. Rico Ortiz MD
--- NOTE | 2017-11-03 18:13 | CON ---
DATE: 11/03/2017 The patient admitted for Dr. Coffman. REFERRING PHYSICIAN: Brittany Coffman MD. REASON FOR CONSULTATION: To provide dialysis for a patient known to me who presents with hypertensive emergency and uncontrolled seizures. HISTORY OF PRESENT ILLNESS: The patient is a 57-year-old white female, known to me from both inpatient care and outpatient dialysis for many years. The patient has a history of end-stage renal disease. History of seizure disorder times 1-2 months duration complicating a recent CVA. History of hypertension, very difficult to control. History of pulmonary hypertension. History of LVH with ejection fraction of 65% to 70%. History of ASHD, status post PTCA stent and MD. History of CHF and hypervolemia. History of COPD secondary to a long history of cigarette smoking. History of severe peripheral vascular disease with a nonhealing right lower leg ulcer, status post vascular bypass procedures. History of NIDDM. History of anemia secondary to chronic kidney disease and history of secondary hyperparathyroidism. By history, the patient apparently had a seizure at home. She was brought to the emergency room when she had several more seizures. The patient had been given Keppra to use in the outpatient setting, but it is unclear whether or not she actually took the medication. The patient is currently seen. She is seizure free, on IV Keppra. Her blood pressure was extremely elevated. Her maximum blood pressure systolic was 236 with a diastolic of 118. Head CT scans were done through the emergency room which showed a right thalamic infarct, acute or subacute. Chronic ischemic changes and multiple old infarcts. The patient currently has been sedated with Ativan. She remains on a labetalol drip and likely will be switched over to Cardene. The patient will be receiving dialysis today with the attempt to increase ultrafiltration to lower her blood pressure. We were asked to evaluate the patient to provide dialysis. The patient was seen together with her daughter in ICU, bed 2. PAST MEDICAL HISTORY: Significant for end-stage renal disease, on chronic maintenance hemodialysis; history of hypertension, difficult to control, on multiple medications. History of seizure disorder. History of recent CVA. History of LVH. History of mild valvular heart disease, MR/TR/AI. History of pulmonary hypertension, ASHD, status post PTCA stent with a history of an MD. History of CHF with hypervolemia. History of COPD. History of severe peripheral vascular disease. History of NIDDM. History of anemia and secondary hyperparathyroidism. The patient has a failed access of her right upper extremity and is currently dialyzing via a right chest wall PermCath. MEDICATIONS: At home include that of clonidine, Norvasc, Ultram, Revatio, MiraLAX, Zestril, Synthroid, Trandate, Pepcid, Colace, and Plavix. ALLERGIES: THE PATIENT IS ALLERGIC TO CIPRO, HYDRALAZINE, VANCOMYCIN, AND CAT SCAN DYE. CURRENT MEDICATIONS: In hospital include that of aspirin, Ativan IV p.r.n., clonidine, Colace, IV Keppra, IV labetalol, Norvasc, Plavix, Protonix, Revatio, Synthroid, Trandate, and Zestril. SOCIAL HISTORY: Past history of cigarette smoking. No history of alcohol use. No history of illicit drug use. FAMILY HISTORY: Positive for hypertension, but no end-stage renal disease. REVIEW OF SYSTEMS: Difficult to obtain from patient as she is sedated. From her daughter: GENERAL: Appetite has been fair. Weight has remained stable. ENT: No hearing or visual problems. PULMONARY: Increased shortness of breath, likely secondary to COPD. History of emphysema, history of bronchitis. CARDIAC: History of ASHD as noted above. GASTROINTESTINAL: History of intermittent constipation. No abdominal pain. No nausea or vomiting. GENITOURINARY: No significant urine output, end-stage renal disease. GYNECOLOGIC: Postmenopausal. ENDOCRINE: History of secondary hyperparathyroidism with past history of diabetes. MUSCULOSKELETAL: No issues. NEUROLOGIC: Past history of CVAs. HEMATOLOGY-ONCOLOGY: History of anemia secondary to chronic kidney disease. No history of malignancy. PSYCHIATRIC: History is positive for anxiety. PHYSICAL EXAMINATION: GENERAL: The patient is currently seen in ICU, bed 2. Eyes were closed. She was just sedated with Ativan. She remains on IV labetalol and on IV Keppra. VITAL SIGNS: Blood pressure presently is 195/68, temperature is 98, respiratory rate is 17, pulse is 69 and regular. HEENT: Eyes were closed. NECK: No neck vein distention. No thyromegaly. No lymphadenopathy. No audible bruits. CHEST: Decreased breath sounds at the bases. No rales. No rhonchi or wheezing. CARDIOVASCULAR: Shows a normal S1, S2. MR/TR/AI. No S3. No S4. No rub. ABDOMEN: Soft. Bowel sounds normal. No rebound. No guarding. No masses. BACK: No CVAT. No spinal tenderness. EXTREMITIES: Show a dressing over her right lower leg covering an ulcer. Diminished lower extremity pulses. Clotted AV fistula site, right upper extremity. Positive right chest wall PermCath. No lower extremity cyanosis, clubbing, or edema. NEUROLOGIC: Difficult to assess as the patient has been sedated with Ativan. Previous to sedation, the patient had been alert and oriented. LABORATORY DATA AND IMAGING STUDIES: Chest x-ray done in the emergency room earlier today showed no active disease, mild cardiomegaly. Head CT scan done earlier today showed a hypodense lacunar infarct within the left thalamus. This is either acute or subacute. MRI is pending. Subacute ischemic changes. Changes are consistent with hypertensive encephalopathy. No acute intracranial hemorrhage. Old infarcts. Extensive cerebral white matter disease. Mild atrophy. EKG was done, it was reported to show normal sinus rhythm with no acute ST or T wave changes. CBC: White blood cell count 14.9 on admission, presently 7.5; hemoglobin down from 12.4 to 10.5; platelet count is 235,000. Coags are normal. Chemistries show sodium of 137, potassium 5.0, chloride 93 with a CO2 of 32, BUN 59 with a creatinine of 6.4, glucose is 106. Calcium level is 10.0. Phosphorus is 7.8 with a magnesium level of 2.4. Troponins are mildly elevated at 0.10 and 0.14. CPK levels are normal. Liver enzymes are normal. Albumin is 3.4. Thyroid function tests were normal. Microbiology: No specimens are pending. ASSESSMENT: 1. Hypertensive urgency with hypertensive encephalopathy and seizures. This is quite possibly secondary to a new acute cerebrovascular accident. It is unclear from the patient's daughter whether she was actually taking Keppra at home. She is currently on IV Keppra. She did receive Ativan and her seizure activity seems to have subsided. The patient was postictal earlier today. The patient will be seen by Neurology. She will continue on Keppra and it is important to lower her blood pressure. 2. Hypertensive emergency with hypertensive encephalopathy. The patient is on multiple oral blood pressure medications. She is currently on IV labetalol and there is consideration to switching over IV Cardene. I did explain to the staff in the ICU that the best way to lower her blood pressure is to ultrafiltrate with dialysis and dialysis will be starting shortly. 3. History of end-stage renal disease. Continue dialysis as per routine but increase ultrafiltration as noted above. 4. History of left ventricular hypertrophy with mild valvular heart disease; history of arteriosclerotic heart disease, status post percutaneous transluminal coronary angioplasty stent and myocardial infarction. This all appears to be stable. No congestive heart failure at present. 4. History of chronic obstructive pulmonary disease secondary to long history of cigarette smoking. The patient remains stable on cigarettes. The patient may receive inhalation therapy on an as-needed basis. 5. History of severe peripheral vascular disease, status post revascularization of her lower extremity with a poorly healing right leg ulcer. The patient had been going to the wound center. 6. History of anemia secondary to chronic kidney disease. Hemoglobin at present is acceptable. 7. History of secondary hyperparathyroidism. Unclear to me whether the patient is actually taking binder therapy. I will start her on binders. The patient will continue her renal diet. 8. History of hypothyroidism. The patient to continue thyroid replacement therapy. 9. Past history of mild glucose intolerance. Glucose levels are currently stable. PLAN: 1. Discussed with staff and hemodialysis staff in detail. The patient will begin dialysis shortly. We will try and increase ultrafiltration to lower her blood pressure. This might allow us to avoid using IV blood pressure medications. 2. Follow up MRI to see whether or not the patient had a recent acute cerebrovascular event. 3. Stress compliance to her daughter that she must take her antiseizure medication. 4. Continue renal diet and binder therapy. 5. Close monitoring in the ICU until her blood pressure normalizes and her neurological status returns to normal and she remains seizure-free. 6. Greater than 35 minutes spent in the care of this critically ill patient. Thank you for letting me partake and share in the care of our mutual patient. Sampson Hutchins MD
--- NOTE | 2017-11-03 18:56 | MRI ---
PROCEDURE: MRI brain dated 11/03/2017 HISTORY: Evaluate acute CVA COMPARISON: Comparison made with prior CT scan of the brain dated 11/03/2017 at 0204 hours TECHNIQUE: Multiplanar, multisequence MR images of the brain were obtained without intravenous contrast enhancement. Note the examination is extremely limited due to motion artifact. FINDINGS: HEMORRHAGE: No gross acute parenchymal, subarachnoid or extra-axial hemorrhage so far as can be seen. . DWI: No evidence of acute infarcts seen on diffusion imaging. BRAIN PARENCHYMA: Significant diffuse/confluent chronic periventricular white matter ischemic changes are seen extending peripherally into the deep and subcortical white matter both cerebral hemispheres. There is also extension of these changes into the white matter tracts of both basal nuclei. Few small chronic bilateral basal nuclei lacunar type infarcts also present. CT There also appears to be a more discrete chronic appearing of ischemia in the right occipito parietal watershed zone . Note that the possibility of concomitant PRES should be excluded with clinical correlation. Moderate generalized volume loss VENTRICLES: No obstructive hydrocephalus. CRANIUM: No acute calvarial abnormalities sella so far as can be seen. ORBITS: Orbits and contents grossly unremarkable. PARANASAL SINUSES/MASTOIDS: Focal area polypoid like mucosal thickening and or mucous retention cyst formation right maxillary sinus. VASCULAR SYSTEM: The major vascular flow voids at skull base cannot be adequately evaluated due to motion artifact. OTHER FINDINGS: None. IMPRESSION: Study is quite limited due to significant motion artifact No definitive evidence of acute intracranial hemorrhage so far as can be seen. Extensive chronic confluent white matter ischemic changes with some extension into the white matter tracts of both basal nuclei. There is also a more discrete area of low what probably represents chronic infarct changes the right occipito parietal watershed zone. Note however that the possibility of concomitant press cannot be excluded. Clinical correlation recommended. Note these findings were discussed with Dr. Coffman at approximately 6:50 p.m. with written down and read back verification. Moderate generalized volume loss.
--- NOTE | 2017-11-03 22:15 | CON ---
DATE: 11/03/2017 SERVICE: Cardiology. REASON FOR CONSULTATION: Followup cardiac evaluation, history of coronary artery disease, peripheral arterial disease, end-stage renal disease, history of seizure, admitted with recurrent seizure. BRIEF CLINICAL HISTORY: This is a 57-year-old female with past medical history significant for end-stage renal disease, on dialysis; peripheral arterial disease; hypertension; seizure disorder; CAD, status post of non-STEMI; PAD, who came to the Emergency Department after having a seizure episode at home, at 11 p.m.; the patient had a witnessed seizure at home and the patient has again a seizure episode in the emergency room and continued to have seizure x2 to 3. Patient was given IV Ativan and stabilized and moved to the ICU. Patient is currently sleeping, but denies any chest pain on waking up. Denies any chest pain, denies any shortness of breath, denies any palpitation. PAST MEDICAL HISTORY: Significant for coronary artery disease, status post PTCA after non-STEMI at outside the hospital in [place], history of diastolic dysfunction, hypertension, COPD, end-stage renal disease, on dialysis, peripheral arterial disease, hypothyroidism, anemia, history of severe peripheral arterial disease, history of leg ulcer. PAST SURGICAL HISTORY: Significant for ulcer debridement, history of PTCA, history of multiple times Port-A-Cath access, dialysis catheter and the dialysis site was dilated, history of right carotid artery angioplasty. SOCIAL HISTORY: Denies any smoking, denies any history of alcohol abuse, ex-smoker, quit 5 years ago. No history of substance abuse. CURRENT MEDICATIONS: Patient is taking clonidine 0.2 mg three times a day, amlodipine 10 mg daily, tramadol, Revatio, lisinopril, levothyroxine, labetalol, Colace, Plavix. REVIEW OF CARDIAC WORKUP: As follows: Patient had a recent STEMI, history of PTCA OM1 drug-eluting stent, 01/12/2017 at [facility], history of PAD, history of right SFA occluded, history of left aortofemoral bypass, status post mesenteric angiogram negative for mesenteric artery stenosis, history of right carotid artery stenting at [facility] in 10/2016, uncontrolled hypertension, end-stage renal disease, multiple admissions with chest pain, recent admission for intracerebral bleed and stabilized and went home. Last echo, 01/11/2017, ejection fraction was 65%, mild MR, mild TR, mild AR, [id number] PI, RV systolic pressure 21. Patient had a repeat echo at [facility], was told fluid around the heart. Patient's repeat echo done at [facility] dated 08/20/2017 that showed ejection fraction 65% to 70%, normal LV segmental wall motion, left atrium is mildly dilated in its long axis, [id number] mitral regurgitation, [id number] tricuspid regurgitation. Patient also had a stress test, 08/21/2017, and was told as negative. REVIEW OF SYSTEMS: As per HPI. PHYSICAL EXAMINATION: VITAL SIGNS: As follows: Temperature afebrile, heart rate 80, blood pressure 180/81. HEENT: PERRLA. Extraocular muscles intact. NECK: Supple. No carotid bruits or thyromegaly. CHEST: Clear to auscultation. HEART: S1, S2 regular. ABDOMEN: Soft. EXTREMITIES: Clubbing and cyanosis negative. LABORATORY DATA: Blood workup as follows: WBC 7.5, hemoglobin 10.5, hematocrit 34.7, platelet count 235. Chemistry shows sodium 137, potassium 5, chloride 93, carbon dioxide 32, anion gap of 17, BUN 59, creatinine 6.4, troponin 0.14. IMPRESSION: Status post seizure; borderline troponin secondary to end-stage renal disease, on dialysis; hypertension; hyperlipidemia; coronary artery disease, status post stent, obtuse marginal-1, [place] 2017, recent stress is normal, recent echo normal, preserved left ventricular function, peripheral arterial disease, status post right carotid artery stenting, history of mesenteric angiogram essentially normal. RECOMMENDATIONS: Resume medications, resume antihypertensive medications. We will closely follow with you. Thank you, Dr. Coffman, for providing me the opportunity in taking care of the patient, Renetta Thakur. We will follow with you. Pj Ontiveros MD
[2017-11-04] MEDS: Nicardipine 20 MG/200 ML 20 MG/200 ML BAG IV PRN ×2 (01:27→05:35)
[2017-11-04] MEDS: Levothyroxine 75 MCG TAB PO SCH (05:32)
[2017-11-04 06:34] LABS: BASO # 0.03 K/mm3 (0.0-2.0); BASO % 0.5 % (0.0-3.0); EOS # 0.1 (0.0-0.7); EOS % 0.8 % (1.5-5.0); GRAN # 4.78 (1.4-6.5); GRAN % 73.8 % (50.0-68.0); HEMOGLOBIN 9.8 g/dL (12.0-16.0); LYMPH # 1.1 (1.2-3.4); LYMPH % 17.5 % (22.0-35.0); MEAN CELL VOLUME 93.5 fl (80.0-105.0); MEAN CORPUSCULAR HEMOGLOBIN 27.7 pg (25.0-35.0); MEAN CORPUSCULAR HGB CONC 29.6 g/dl (31.0-37.0); MEAN PLATELET VOLUME 9.8 fl (7.0-11.0); MONO # 0.5 (0.1-0.6); MONO % 7.4 % (1.0-6.0); RBC 3.54 10^6/uL (3.5-6.1); RED CELL DISTRIBUTION WIDTH 15.7 % (11.5-14.5); WHITE BLOOD COUNT 6.5 10^3/ul (4.5-11.0)
[2017-11-04 07:17] LABS: ALB/GLOB RATIO 1.5 (1.1-1.8); ALBUMIN 3.6 g/dL (3.0-4.8); CALCIUM 10.1 mg/dL (8.4-10.5); MAGNESIUM 2.2 mg/dL (1.7-2.2)
--- NOTE | 2017-11-04 08:08 | CP.CCUPN ---
<Aylin Wilcox - Last Filed: 11/04/17 10:46> CCU Subjective - Physician Review Subjective (Free Text): 11/04/17 08:22 Patient with no overnight acute events. This AM patient is more alert, speaking in full sentences, no deficit noted. Patient complaining of lower extremities pain. No fever or chills. Critical Care Time Spent (in minutes): 45 CCU Objective - Vital Signs / Intake & Output Vital Signs (Last 4 hours): Vital Signs Pulse Resp BP Pulse Ox 11/04/17 06:59 86 11/04/17 06:50 87 54 H 100 11/04/17 06:49 87 30 H 11/04/17 06:48 87 11/04/17 06:40 85 26 H 100 11/04/17 06:32 92 H 31 H 171/70 H 98 11/04/17 06:30 91 H 46 H 100 11/04/17 06:20 88 18 100 11/04/17 06:11 85 21 11/04/17 06:10 90 52 H 100 11/04/17 06:00 86 8 L 144/81 100 11/04/17 05:50 88 19 99 11/04/17 05:40 87 23 100 11/04/17 05:30 88 26 H 138/56 L 100 11/04/17 05:20 84 17 100 11/04/17 05:10 84 100 11/04/17 05:00 83 25 H 161/49 H 100 11/04/17 04:53 84 11/04/17 04:50 83 100 11/04/17 04:48 82 28 H 11/04/17 04:45 84 27 H 144/63 98 11/04/17 04:40 83 23 100 11/04/17 04:34 90 11/04/17 04:30 78 28 H 11/04/17 04:20 88 11/04/17 04:10 80 21 100 Intake and Output (Last 8hrs): Intake & Output 11/03/17 11/04/17 11/04/17 22:59 06:59 14:59 Intake Total 1220 400 Output Total 2500 Balance -1280 400 Intake: IV 1220 400 Cardene 120 Labetalol 900 Output: Other 2500 - Physical Exam Head: Positive for: Atraumatic, Normocephalic Pupils: Positive for: PERRL Extroacular Muscles: Positive for: EOMI Conjunctiva: Positive for: Normal Mouth: Positive for: Moist Mucous Membranes Neck: Positive for: Normal Range of Motion Respiratory/Chest: Positive for: Clear to Auscultation, Good Air Exchange. Negative for: Respiratory Distress, Accessory Muscle Use, Wheezes, Decreased Breath Sounds, Retracting, Rhonchi, Tachypneic, Tender to Palpation Cardiovascular: Positive for: Normal S1, S2. Negative for: Regular Rate and Rhythm, Murmurs, Tachycardic, Bradycardic Abdomen: Positive for: Normal Bowel Sounds. Negative for: Tenderness, Distention, Peritoneal Signs Back: Positive for: Normal Inspection Upper Extremity: Positive for: Normal Inspection, Normal ROM, Neurovascularly Intact. Negative for: Cyanosis, Edema Lower Extremity: Positive for: Normal Inspection, Normal ROM, Neurovascularly Intact. Negative for: Edema Neurological: Positive for: GCS=15, CN II-XII Intact, Speech Normal, Motor Func Grossly Intact, Normal Sensory Function, Other (+rigidity in the left upper and lower extremities. ) Skin: Positive for: Warm, Dry, Rashes, Normal Color, Abrasion, Other (left ankle wound. ) Psychiatric: Positive for: Alert, Oriented x 3, Depressed Mood - Medications Active Medications: Active Medications Generic Name Dose Route Start Last Admin Trade Name Freq PRN Reason Stop Dose Admin Acetaminophen 650 mg 11/04/17 04:53 11/04/17 05:32 Tylenol 325mg Tab PO 650 mg Q6H PRN Administration Pain, severe (8-10) Amlodipine Besylate 10 mg 11/04/17 10:00 Norvasc PO DAILY [facility] Aspirin 81 mg 11/04/17 10:00 Aspirin Chewable PO DAILY [facility] Clonidine HCl 0.2 mg 11/03/17 14:00 11/03/17 18:29 Catapres PO Not Given TID [facility] Clopidogrel Bisulfate 75 mg 11/04/17 10:00 Plavix PO DAILY [facility] Docusate Sodium 100 mg 11/03/17 14:00 11/03/17 18:30 Colace PO Not Given TID [facility] Heparin Sodium (Porcine) 5,000 units 11/03/17 22:00 11/03/17 21:22 Heparin SC 5,000 units Q12 [facility] Administration Protocol Levetiracetam 500 mg in 100 mls @ 460 mls/hr 11/03/17 10:00 11/03/17 21:25 Keppra 500mg Ivpb IV 460 mls/hr Q12 [facility] Administration Labetalol HCl 300 mg 11/03/17 14:00 11/03/17 18:30 Trandate PO Not Given TID [facility] Levothyroxine Sodium 75 mcg 11/04/17 06:00 11/04/17 05:32 Synthroid PO 75 mcg 0600 [facility] Administration Lisinopril 40 mg 11/03/17 10:23 11/03/17 13:54 Zestril PO Not Given DAILY [facility] Lorazepam 2 mg 11/03/17 04:52 Ativan IVP Q4H PRN Seizure activity Protocol Ondansetron HCl 4 mg 11/04/17 07:24 11/04/17 07:53 Zofran Inj IVP 4 mg Q6H PRN Administration Nausea/Vomiting Pantoprazole Sodium 40 mg 11/03/17 10:00 11/03/17 10:04 Protonix Inj IVP 40 mg DAILY [facility] Administration Polyethylene Glycol 17 gm 11/04/17 10:00 Miralax PO BID [facility] Sevelamer HCl 1,600 mg 11/03/17 23:04 Renagel PO WM [facility] Sildenafil Citrate 20 mg 11/04/17 10:00 Revatio PO DAILY [facility] Tramadol HCl 50 mg 11/04/17 07:24 11/04/17 07:52 Ultram PO 50 mg TID PRN Administration Pain, moderate (4-7) - Patient Studies Lab Studies: Microbiology Studies 11/03/17 15:03 Gram Stain - Final Leg - Right Lab Studies 11/04/17 11/04/17 11/03/17 Range/Units 05:30 05:30 13:15 WBC 6.5 (4.5-11.0) 10^3/ul RBC 3.54 (3.5-6.1) 10^6/uL Hgb 9.8 L (12.0-16.0) g/dL Hct 33.1 L (36.0-48.0) % MCV 93.5 (80.0-105.0) fl MCH 27.7 (25.0-35.0) pg MCHC 29.6 L (31.0-37.0) g/dl RDW 15.7 H (11.5-14.5) % Plt Count 255 (120.0-450.0) 10^3/uL MPV 9.8 (7.0-11.0) fl Gran % 73.8 H (50.0-68.0) % Lymph % (Auto) 17.5 L (22.0-35.0) % [place] % (Auto) 7.4 H (1.0-6.0) % Eos % (Auto) 0.8 L (1.5-5.0) % Baso % (Auto) 0.5 (0.0-3.0) % Gran # 4.78 (1.4-6.5) Lymph # (Auto) 1.1 L (1.2-3.4) [place] # (Auto) 0.5 (0.1-0.6) Eos # (Auto) 0.1 (0.0-0.7) Baso # (Auto) 0.03 (0.0-2.0) K/mm3 Sodium 135 (132-148) mmol/L Potassium 3.7 (3.6-5.0) mmol/L Chloride 93 L (98-107) mmol/L Carbon Dioxide 27 (21-33) mmol/L Anion Gap 18 (10-20) BUN 27 H (7-21) mg/dL Creatinine 4.1 H (0.7-1.2) mg/dl Est GFR ( Amer) 14 Est GFR (Non-Af Amer) 11 Random Glucose 90 (70-110) mg/dL Hemoglobin A1c (4.2-6.5) % Calcium 10.1 (8.4-10.5) mg/dL Phosphorus (2.5-4.5) mg/dL Magnesium 2.2 (1.7-2.2) mg/dL Total Bilirubin 0.5 (0.2-1.3) mg/dL AST 23 (14-36) U/L ALT 19 (7-56) U/L Alkaline Phosphatase 102 (38-126) U/L Total Creatine Kinase (35-230) U/L Troponin I 0.18 H* D ng/mL Total Protein 6.1 (5.8-8.3) g/dL Albumin 3.6 (3.0-4.8) g/dL Globulin 2.5 gm/dL Albumin/Globulin Ratio 1.5 (1.1-1.8) Triglycerides (35-160) mg/dL Cholesterol (130-200) mg/dL HDL Cholesterol (29-60) mg/dL 11/03/17 11/03/17 Range/Units 06:20 06:20 WBC (4.5-11.0) 10^3/ul RBC (3.5-6.1) 10^6/uL Hgb (12.0-16.0) g/dL Hct (36.0-48.0) % MCV (80.0-105.0) fl MCH (25.0-35.0) pg MCHC (31.0-37.0) g/dl RDW (11.5-14.5) % Plt Count (120.0-450.0) 10^3/uL MPV (7.0-11.0) fl Gran % (50.0-68.0) % Lymph % (Auto) (22.0-35.0) % [place] % (Auto) (1.0-6.0) % Eos % (Auto) (1.5-5.0) % Baso % (Auto) (0.0-3.0) % Gran # (1.4-6.5) Lymph # (Auto) (1.2-3.4) [place] # (Auto) (0.1-0.6) Eos # (Auto) (0.0-0.7) Baso # (Auto) (0.0-2.0) K/mm3 Sodium 137 (132-148) mmol/L Potassium 5.0 (3.6-5.0) mmol/L Chloride 93 L (98-107) mmol/L Carbon Dioxide 32 (21-33) mmol/L Anion Gap 17 (10-20) BUN 59 H (7-21) mg/dL Creatinine 6.4 H (0.7-1.2) mg/dl Est GFR ( Amer) 8 Est GFR (Non-Af Amer) 7 Random Glucose 106 (70-110) mg/dL Hemoglobin A1c 4.7 (4.2-6.5) % Calcium 10.0 (8.4-10.5) mg/dL Phosphorus 7.8 H (2.5-4.5) mg/dL Magnesium 2.4 H (1.7-2.2) mg/dL Total Bilirubin 0.5 (0.2-1.3) mg/dL AST 25 (14-36) U/L ALT 28 (7-56) U/L Alkaline Phosphatase 101 (38-126) U/L Total Creatine Kinase 38 (35-230) U/L Troponin I 0.14 H* D ng/mL Total Protein 5.7 L (5.8-8.3) g/dL Albumin 3.4 (3.0-4.8) g/dL Globulin 2.3 gm/dL Albumin/Globulin Ratio 1.5 (1.1-1.8) Triglycerides 92 (35-160) mg/dL Cholesterol 107 L (130-200) mg/dL HDL Cholesterol 35 (29-60) mg/dL Laboratory Results - last 24 hr 11/03/17 11/03/17 11/03/17 06:20 06:20 13:15 WBC RBC Hgb Hct MCV MCH MCHC RDW Plt Count MPV Gran % Lymph % (Auto) [place] % (Auto) Eos % (Auto) Baso % (Auto) Gran # Lymph # (Auto) [place] # (Auto) Eos # (Auto) Baso # (Auto) Sodium 137 Potassium 5.0 Chloride 93 L Carbon Dioxide 32 Anion Gap 17 BUN 59 H Creatinine 6.4 H Est GFR ( Amer) 8 Est GFR (Non-Af Amer) 7 Random Glucose 106 Hemoglobin A1c 4.7 Calcium 10.0 Phosphorus 7.8 H Magnesium 2.4 H Total Bilirubin 0.5 AST 25 ALT 28 Alkaline Phosphatase 101 Total Creatine Kinase 38 Troponin I 0.14 H* D 0.18 H* D Total Protein 5.7 L Albumin 3.4 Globulin 2.3 Albumin/Globulin Ratio 1.5 Triglycerides 92 Cholesterol 107 L HDL Cholesterol 35 11/04/17 11/04/17 05:30 05:30 WBC 6.5 RBC 3.54 Hgb 9.8 L Hct 33.1 L MCV 93.5 MCH 27.7 MCHC 29.6 L RDW 15.7 H Plt Count 255 MPV 9.8 Gran % 73.8 H Lymph % (Auto) 17.5 L [place] % (Auto) 7.4 H Eos % (Auto) 0.8 L Baso % (Auto) 0.5 Gran # 4.78 Lymph # (Auto) 1.1 L [place] # (Auto) 0.5 Eos # (Auto) 0.1 Baso # (Auto) 0.03 Sodium 135 Potassium 3.7 Chloride 93 L Carbon Dioxide 27 Anion Gap 18 BUN 27 H Creatinine 4.1 H Est GFR ( Amer) 14 Est GFR (Non-Af Amer) 11 Random Glucose 90 Hemoglobin A1c Calcium 10.1 Phosphorus Magnesium 2.2 Total Bilirubin 0.5 AST 23 ALT 19 Alkaline Phosphatase 102 Total Creatine Kinase Troponin I Total Protein 6.1 Albumin 3.6 Globulin 2.5 Albumin/Globulin Ratio 1.5 Triglycerides Cholesterol HDL Cholesterol EKG/Cardiology Studies: Cardiology / EKG Studies 11/03/17 13:00 ELECTROCARDIOGRAM Q6H Comment: Reason For Exam: chest pain 11/03/17 19:00 ELECTROCARDIOGRAM Q6H Comment: Reason For Exam: chest pain Fingerstick Blood Sugar Results: 112 Results Reviewed to Date: Yes Critical Care Progress Note - Nutrition Nutrition: Nutrition Category Date Time Status Heart Healthy Diet [DIET] Diets 11/04/17 Breakfast Ordered Assessment/Plan - Assessment and Plan (Free Text) Assessment: Patient is a 57 year old female with past medical history of ESRD on dialysis (T /R/Sat), HTN, CHF, previous CVA with hemorrhagic conversion, seizures, CAD with stent, previous MN, PAD presented with seizure like activity and is admitted with acute/subacute ischemic CVA. Patient has been stable, and is more alert today. Plan: Neuro: Acute/subacute ischemic stroke likely due to hypertensive emergency, s/p seizure activity on admission - More alert today - Had CT and MRI with extensive chronic confluent white matter ischemic changes and watershed zone versus PRESS. - Neurology following - EEG pending read - PT/OT eval - head of bed elevated above 30 degrees. - seizure precaution, on keppra for prophylaxis and ativan prn - Maintain SBP between 120-130. - Will resume cailin meds including plavix and asa. Pulm: h/o copd on home O2, stable, continue nasal cannula Cardio- Chest pain r/o acs- + troponin leak, no ST wave elevation on ekg, r/o NSTEMI - cardio following, continue asa, plavix. - Patient is also beta mino and imrta. - Pending echo - has h/o pulm htn- on revatio ID: Patient had leukocytosis on admission, but resolved, patient is afebrile. cultures sent, will monitor off of antibiotics. GI: Abdominal pain likely due to constipation in the setting of chronic opioid use-resume miralax and colace. zofran prn and protonix for gi prophylaxis. Renal: ESRD s/p HD yesterday. Electrolytes improved. HD tomorrow. Endo: hypothyroidism- resume synthroid. Heme: h/h at baseline DVT prophylaxis: Heparin sc Skin: lower extremities wound- continue with wound care. Continue with tramadol for pain Dispo: patient is hemodynamically stable, and is doing better mental status worley , will transfer to tele, pending PT. Patient seen, examined and case discussed with the medical social consultant. - Date & Time Date: 11/04/17 Time: 09:50 <Alexis Strauss - Last Filed: 11/04/17 11:08> CCU Objective - Vital Signs / Intake & Output Vital Signs (Last 4 hours): Vital Signs Temp Pulse Resp BP Pulse Ox 11/04/17 10:20 79 19 100 11/04/17 10:10 80 100 11/04/17 10:00 82 167/65 H 100 11/04/17 09:50 78 16 100 11/04/17 09:40 83 24 100 11/04/17 09:38 88 24 11/04/17 09:30 85 100 11/04/17 09:20 87 99 11/04/17 09:10 83 21 100 11/04/17 09:00 89 21 142/77 100 11/04/17 08:50 83 24 98 11/04/17 08:44 87 163/69 H 98 11/04/17 08:40 87 19 100 11/04/17 08:30 92 H 46 H 99 11/04/17 08:21 95 H 152/76 H 11/04/17 08:20 90 13 100 11/04/17 08:16 95 H 152/76 H 11/04/17 08:10 91 H 49 H 100 11/04/17 08:00 98.3 F 92 H 23 152/76 H 100 11/04/17 07:50 89 35 H 100 11/04/17 07:40 92 H 28 H 100 11/04/17 07:31 98 H 49 H 152/76 H 91 L 11/04/17 07:30 95 H 34 H 81 L 11/04/17 07:20 90 23 99 11/04/17 07:10 88 100 Intake and Output (Last 8hrs): Intake & Output 11/03/17 11/04/17 11/04/17 22:59 06:59 14:59 Intake Total 1220 400 465 Output Total 2500 50 Balance -1280 400 415 Intake: IV 1220 400 325 Cardene 120 75 IVPB 100 Labetalol 900 Oral 140 Output: Urine 50 Urine, Voided 50 Other 2500 - Medications Active Medications: Active Medications Generic Name Dose Route Start Last Admin Trade Name Freq PRN Reason Stop Dose Admin Acetaminophen 650 mg 11/04/17 04:53 11/04/17 05:32 Tylenol 325mg Tab PO 650 mg Q6H PRN Administration Pain, severe (8-10) Amlodipine Besylate 10 mg 11/04/17 10:00 11/04/17 08:16 Norvasc PO 10 mg DAILY [facility] Administration Aspirin 81 mg 11/04/17 10:00 11/04/17 08:15 Aspirin Chewable PO 81 mg DAILY [facility] Administration Clonidine HCl 0.2 mg 11/03/17 14:00 11/04/17 08:16 Catapres PO 0.2 mg TID [facility] Administration Clopidogrel Bisulfate 75 mg 11/04/17 10:00 11/04/17 08:16 Plavix PO 75 mg DAILY [facility] Administration Docusate Sodium 100 mg 11/03/17 14:00 11/04/17 08:15 Colace PO 100 mg TID [facility] Administration Heparin Sodium (Porcine) 5,000 units 11/03/17 22:00 11/04/17 08:17 Heparin SC 5,000 units Q12 [facility] Administration Protocol Levetiracetam 500 mg in 100 mls @ 460 mls/hr 11/03/17 10:00 11/04/17 08:17 Keppra 500mg Ivpb IV 460 mls/hr Q12 [facility] Administration Labetalol HCl 300 mg 11/03/17 14:00 11/04/17 08:21 Trandate PO 300 mg TID [facility] Administration Levothyroxine Sodium 75 mcg 11/04/17 06:00 11/04/17 05:32 Synthroid PO 75 mcg 0600 [facility] Administration Lisinopril 40 mg 11/03/17 10:23 11/03/17 13:54 Zestril PO Not Given DAILY [facility] Lorazepam 2 mg 11/03/17 04:52 Ativan IVP Q4H PRN Seizure activity Protocol Ondansetron HCl 4 mg 11/04/17 07:24 11/04/17 07:53 Zofran Inj IVP 4 mg Q6H PRN Administration Nausea/Vomiting Pantoprazole Sodium 40 mg 11/03/17 10:00 11/04/17 08:18 Protonix Inj IVP 40 mg DAILY [facility] Administration Polyethylene Glycol 17 gm 11/04/17 10:00 11/04/17 08:18 Miralax PO 17 gm BID [facility] Administration Sevelamer HCl 1,600 mg 11/03/17 23:04 11/04/17 08:19 Renagel PO 1,600 mg WM [facility] Administration Sildenafil Citrate 20 mg 11/04/17 10:00 11/04/17 08:16 Revatio PO 20 mg DAILY [facility] Administration Tramadol HCl 50 mg 11/04/17 07:24 11/04/17 07:52 Ultram PO 50 mg TID PRN Administration Pain, moderate (4-7) - Patient Studies Lab Studies: Microbiology Studies 11/03/17 15:03 Gram Stain - Final Leg - Right Lab Studies 11/04/17 11/04/17 11/03/17 Range/Units 05:30 05:30 13:15 WBC 6.5 (4.5-11.0) 10^3/ul RBC 3.54 (3.5-6.1) 10^6/uL Hgb 9.8 L (12.0-16.0) g/dL Hct 33.1 L (36.0-48.0) % MCV 93.5 (80.0-105.0) fl MCH 27.7 (25.0-35.0) pg MCHC 29.6 L (31.0-37.0) g/dl RDW 15.7 H (11.5-14.5) % Plt Count 255 (120.0-450.0) 10^3/uL MPV 9.8 (7.0-11.0) fl Gran % 73.8 H (50.0-68.0) % Lymph % (Auto) 17.5 L (22.0-35.0) % [place] % (Auto) 7.4 H (1.0-6.0) % Eos % (Auto) 0.8 L (1.5-5.0) % Baso % (Auto) 0.5 (0.0-3.0) % Gran # 4.78 (1.4-6.5) Lymph # (Auto) 1.1 L (1.2-3.4) [place] # (Auto) 0.5 (0.1-0.6) Eos # (Auto) 0.1 (0.0-0.7) Baso # (Auto) 0.03 (0.0-2.0) K/mm3 Sodium 135 (132-148) mmol/L Potassium 3.7 (3.6-5.0) mmol/L Chloride 93 L (98-107) mmol/L Carbon Dioxide 27 (21-33) mmol/L Anion Gap 18 (10-20) BUN 27 H (7-21) mg/dL Creatinine 4.1 H (0.7-1.2) mg/dl Est GFR ( Amer) 14 Est GFR (Non-Af Amer) 11 Random Glucose 90 (70-110) mg/dL Hemoglobin A1c (4.2-6.5) % Calcium 10.1 (8.4-10.5) mg/dL Magnesium 2.2 (1.7-2.2) mg/dL Total Bilirubin 0.5 (0.2-1.3) mg/dL AST 23 (14-36) U/L ALT 19 (7-56) U/L Alkaline Phosphatase 102 (38-126) U/L Troponin I 0.18 H* D ng/mL Total Protein 6.1 (5.8-8.3) g/dL Albumin 3.6 (3.0-4.8) g/dL Globulin 2.5 gm/dL Albumin/Globulin Ratio 1.5 (1.1-1.8) 11/03/17 Range/Units 06:20 WBC (4.5-11.0) 10^3/ul RBC (3.5-6.1) 10^6/uL Hgb (12.0-16.0) g/dL Hct (36.0-48.0) % MCV (80.0-105.0) fl MCH (25.0-35.0) pg MCHC (31.0-37.0) g/dl RDW (11.5-14.5) % Plt Count (120.0-450.0) 10^3/uL MPV (7.0-11.0) fl Gran % (50.0-68.0) % Lymph % (Auto) (22.0-35.0) % [place] % (Auto) (1.0-6.0) % Eos % (Auto) (1.5-5.0) % Baso % (Auto) (0.0-3.0) % Gran # (1.4-6.5) Lymph # (Auto) (1.2-3.4) [place] # (Auto) (0.1-0.6) Eos # (Auto) (0.0-0.7) Baso # (Auto) (0.0-2.0) K/mm3 Sodium (132-148) mmol/L Potassium (3.6-5.0) mmol/L Chloride (98-107) mmol/L Carbon Dioxide (21-33) mmol/L Anion Gap (10-20) BUN (7-21) mg/dL Creatinine (0.7-1.2) mg/dl Est GFR ( Amer) Est GFR (Non-Af Amer) Random Glucose (70-110) mg/dL Hemoglobin A1c 4.7 (4.2-6.5) % Calcium (8.4-10.5) mg/dL Magnesium (1.7-2.2) mg/dL Total Bilirubin (0.2-1.3) mg/dL AST (14-36) U/L ALT (7-56) U/L Alkaline Phosphatase (38-126) U/L Troponin I ng/mL Total Protein (5.8-8.3) g/dL Albumin (3.0-4.8) g/dL Globulin gm/dL Albumin/Globulin Ratio (1.1-1.8) Laboratory Results - last 24 hr 11/03/17 11/03/17 11/04/17 06:20 13:15 05:30 WBC 6.5 RBC 3.54 Hgb 9.8 L Hct 33.1 L MCV 93.5 MCH 27.7 MCHC 29.6 L RDW 15.7 H Plt Count 255 MPV 9.8 Gran % 73.8 H Lymph % (Auto) 17.5 L [place] % (Auto) 7.4 H Eos % (Auto) 0.8 L Baso % (Auto) 0.5 Gran # 4.78 Lymph # (Auto) 1.1 L [place] # (Auto) 0.5 Eos # (Auto) 0.1 Baso # (Auto) 0.03 Sodium Potassium Chloride Carbon Dioxide Anion Gap BUN Creatinine Est GFR ( Amer) Est GFR (Non-Af Amer) Random Glucose Hemoglobin A1c 4.7 Calcium Magnesium Total Bilirubin AST ALT Alkaline Phosphatase Troponin I 0.18 H* D Total Protein Albumin Globulin Albumin/Globulin Ratio 11/04/17 05:30 WBC RBC Hgb Hct MCV MCH MCHC RDW Plt Count MPV Gran % Lymph % (Auto) [place] % (Auto) Eos % (Auto) Baso % (Auto) Gran # Lymph # (Auto) [place] # (Auto) Eos # (Auto) Baso # (Auto) Sodium 135 Potassium 3.7 Chloride 93 L Carbon Dioxide 27 Anion Gap 18 BUN 27 H Creatinine 4.1 H Est GFR ( Amer) 14 Est GFR (Non-Af Amer) 11 Random Glucose 90 Hemoglobin A1c Calcium 10.1 Magnesium 2.2 Total Bilirubin 0.5 AST 23 ALT 19 Alkaline Phosphatase 102 Troponin I Total Protein 6.1 Albumin 3.6 Globulin 2.5 Albumin/Globulin Ratio 1.5 EKG/Cardiology Studies: Cardiology / EKG Studies 11/03/17 13:00 ELECTROCARDIOGRAM Q6H Comment: Reason For Exam: chest pain 11/03/17 19:00 ELECTROCARDIOGRAM Q6H Comment: Reason For Exam: chest pain Critical Care Progress Note - Nutrition Nutrition: Nutrition Category Date Time Status Heart Healthy Diet [DIET] Diets 11/04/17 Breakfast Ordered Assessment/Plan - Assessment and Plan (Free Text) Plan: Patient seen and examined, on rounds with resident, agree with note with following additions/exceptions: Patient is 57yo female with PMhx of COPD on home O2, CVA, Seizure disorder, ESRD on HD, ,,Thu, hypothyroidism, presented with AMS and seizure like activity at home and in the ER. CT head with acute/subacute ischemic stroke. Currently afebrile, HD stable, comfortable, sat 100% on 2LNC, awake, alert oriented x 3. MRI Brain done. OFF Cardene drip. Passed speech/swallow eval, tolerated PO breakfast. PO BP meds resumed, SBP ranging 120-160. Seizure disorder Acute CVA COPD ESRD on HD Hypothyroidism HTN emergency Recommend: - supp o2 as needed - lui culture, UCx, BCx, check procal, monitor off ABx - resume home BP meds, goal BP 120-140 - monitor HH - HD as per renal - EEG - Plavix - Statin - ECHO - Neurology follow up - GI ppx - DVT ppx - STABLE, transfer to telemetr
--- NOTE | 2017-11-04 08:15 | HP ---
HISTORY OF PRESENT ILLNESS: The patient is a 57-year-old, known to me from multiple admissions. I got a call around 4:00 this morning that the patient started to have seizures. Family called ambulance and she was brought to emergency room. She was given Ativan multiple doses. CT scan was done. She was found to have hypertensive encephalopathy, , was placed on Labetalol drip and admitted in ICU. PAST MEDICAL HISTORY: Significant for: 1. Hypertension. 2. End-stage renal disease. 3. Hyperlipidemia. 4. Right carotid stenosis, status post stenting. 5. Right AV shunt. 6. Severe peripheral vascular disease. 7. Chronic slowly healing right leg ulcer. 8. Chronic anemia. 9. Gastritis. 10. Status post CVA on last admission, leading to hemorrhagic CVA. 11. Coronary artery disease status post angioplasty. 12. Peripheral vascular disease status post bypass surgery. ALLERGIES: SHE IS ALLERGIC TO CIPRO, HYDRALAZINE AND VANCOMYCIN MEDICATIONS AT HOME: She is not compliant with her medications. She is advised to take clonidine 0.2 mg three times a day, amlodipine 10 mg daily, Revatio 20 mg daily, Miralax 17 g twice a day, lisinopril 40 mg daily, levothyroxine 75 mcg daily, Labetalol 300 mg three times a day, Pepcid 20 mg daily, Colace 100 mg three times a day, and Plavix 75 mg daily. SOCIAL HISTORY: She lives with her son. Used to be heavy smoker, quit a couple of months ago, and was heavy smoker in the past. REVIEW OF SYSTEMS: She is lethargic, opens eye on verbal command. PHYSICAL EXAMINATION: VITAL SIGNS: Patient is afebrile, pulse 75, respirations 21, blood pressure 152/61. LUNGS: Bilateral fair air flow, diffusely decrease breath sounds. HEART: S1, S2, audible. ABDOMEN: Soft, nontender. No rebound. No guarding. NEUROLOGIC: Patient is sleepy, but arousable. LABORATORY DATA: WBC 7.5, hemoglobin 10.5, hematocrit 34.7, platelet 235. Chemistry: Sodium 137, potassium 5.0, chloride 93, CO2 32, BUN 59, creatinine 6.4, blood sugar of 106. Troponin is 0.18, calcium 10.8. ASSESSMENT: 1. Hypertensive encephalopathy. 2. Seizure disorder. 3. End-stage renal disease on hemodialysis. 4. Coronary artery disease. 5. Extensive chronic confluent white matter ischemic disease, extending into white matter tract of both basal ganglia. 6. Status post peripherally inserted central catheter line placement in the left forearm. 7. 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 PLAN: Currently the patient is on aspirin 81 mg daily. She is on clonidine 0.2 mg three times a day. She is on heparin. She is on Keppra 500 mg twice a day, amlodipine 10 mg daily, Plavix 75 mg daily, Protonix 40 mg daily. She is on Renagel, Revatio, and levothyroxine. She is also on labetalol 300 mg three times a day and lisinopril 40 mg daily. We will continue all that. We will reevaluate in a.m., and we will continue ICU care for now. Brittany Coffman MD
[2017-11-04] MEDS: Sildenafil 20 MG TAB PO SCH ×2 (08:16)
[2017-11-04] MEDS: levETIRAcetam 500mg IVPB 500 MG/100 ML BAG IV SCH ×3 (08:17→22:01)
[2017-11-04] MEDS: POLYETHYLENE GLYCOL 3350 17 GM/Dose PACKET PO SCH ×3 (08:18→17:01)
--- NOTE | 2017-11-04 08:25 | CARD ---
APPROVED REPORT EKG Measurement Heart [id number] [id number] <Conclusion> Normal sinus rhythm Biatrial enlargement Left ventricular hypertrophy with repolarization abnormality ST_T Changes.
--- NOTE | 2017-11-04 08:44 | CARD ---
APPROVED REPORT EKG Measurement Heart [id number] <Conclusion> Normal sinus rhythm Possible Left atrial enlargement Left ventricular hypertrophy with repolarization abnormality Prolonged QT Abnormal ECG
[2017-11-04] MEDS ORDERED: POLYETHYLENE GLYCOL 3350 17 GM/Dose PACKET PO SCH (10:00)
--- NOTE | 2017-11-04 14:31 | PN ---
DATE: REASON FOR CONSULTATION AND FOLLOWUP: Cardiac evaluation, history of coronary artery disease, peripheral arterial disease, end-stage renal disease, and history of seizure - new -onset, admitted with recurrent seizure. SUBJECTIVE: The patient denies any chest pain, shortness of breath or any palpitation. OBJECTIVE GENERAL: Not in apparent distress, feels weak. VITAL SIGNS: Temperature afebrile, heart rate 59, blood pressure 152/76. HEENT: PERRLA. Extraocular muscles are intact. NECK: Supple. No carotid bruits or thyromegaly. CHEST: Clear to auscultation. HEART: S1, S2 regular. ABDOMEN: Soft. EXTREMITIES: Clubbing and cyanosis negative. LABORATORY DATA: Blood workup as follows: WBC 6.5, hemoglobin 9.8, hematocrit 33.1, and platelet count 255,000. Chemistry shows sodium 135, potassium 3.7, chloride 93, carbon dioxide 27, anion gap of 18, BUN 27, and creatinine 4.1. Troponin is 0.14 and 0.19. IMPRESSION: Borderline troponin - borderline to marginally elevated secondary to end-stage renal disease; uncontrolled hypertension; history of coronary artery disease with history of stenting to OM1 in [facility] after [id number] myocardial infarction on 01/12/2017. The patient's last echocardiogram was on 08/20/2017 and showed ejection fraction 65% to 70%. Last stress test was on 08/21/2017 and was negative, admitted with a new onset of seizure at home and then, three episodes of seizure at Emergency Room. A CAT scan of the head with hypodense lacunar infarct with thalamus -- new compared to the previous study, progressive hypodensity identified in the range of right occipital-parietal area, suggestive of subacute ischemic changes and hypertensive encephalopathy, mild atrophy, and extensive cerebral white matter disease. I followed this patient, had a brain MRI done -- MRI shows possibly chronic infarct in the right occipital lobe, uncontrolled hypertension, end-stage renal disease - on dialysis, severe peripheral arterial disease, history of carotid artery stenting - right, history of left femoropopliteal bypass and cross-over, history of mesenteric injury, essentially normal; diastolic dysfunction, and chronic obstructive pulmonary disease. RECOMMENDATIONS: Aggressive control of blood pressure. Start p.o. medications. Yesterday, the patient did not take p.o. medications when the p.o. was started again. We will discontinue IV Cardene. Further recommendations as per Neurology for seizure. No evidence of chest pain or ischemia to borderline troponin as mentioned above secondary to uncontrolled hypertension and hemodynamic instability and renal insufficiency. We will follow with you. No invasive cardiac workup is planned at this time. Aggressive control for blood pressure is recommended. Hemoglobin A1c is 4.7. Watch for hypoglycemia. Thank you Dr. Coffman for providing us the opportunity of taking care of Renetta Thakur. Pj Ontiveros MD
[2017-11-04] MEDS ORDERED: Oxycodone/Acetaminophen 5/325 mg Tab PO PRN (16:37)
--- NOTE | 2017-11-04 16:41 | CP.PCM.PN ---
Subjective - Date & Time of Evaluation Date of Evaluation: 11/04/17 Time of Evaluation: 16:31 - Subjective Subjective: Pt is well known to me seen for a ulceration to the right leg; ulceration was determined to be calciphalxis during previous visits; she had OR surgical debridement of the wound and application of apligraft 2 months ago during a prior admission; her wound responded very well with much decrease in pain and the wound has progressively gotten better. Objective - Vital Signs/Intake and Output Vital Signs (last 24 hours): Temp Pulse Resp BP Pulse Ox 98.4 F 65 20 138/56 L 100 11/04/17 12:00 11/04/17 15:00 11/04/17 15:00 11/04/17 15:00 11/04/17 15:00 Intake and Output: 11/04/17 11/04/17 06:59 18:59 Intake Total 600 465 Output Total 2500 50 Balance -1900 415 - Medications Medications: Current Medications Acetaminophen (Tylenol 325mg Tab) 650 mg PO Q6H PRN PRN Reason: Pain, severe (8-10) Last Admin: 11/04/17 05:32 Dose: 650 mg Amlodipine Besylate (Norvasc) 10 mg PO DAILY [facility] Last Admin: 11/04/17 08:16 Dose: 10 mg Aspirin (Aspirin Chewable) 81 mg PO DAILY [facility] Last Admin: 11/04/17 08:15 Dose: 81 mg Clonidine HCl (Catapres) 0.2 mg PO TID [facility] Last Admin: 11/04/17 13:50 Dose: 0.2 mg Clopidogrel Bisulfate (Plavix) 75 mg PO DAILY [facility] Last Admin: 11/04/17 08:16 Dose: 75 mg Docusate Sodium (Colace) 100 mg PO TID [facility] Last Admin: 11/04/17 13:50 Dose: 100 mg Heparin Sodium (Porcine) (Heparin) 5,000 units SC Q12 [facility] PRN Reason: Protocol Last Admin: 11/04/17 08:17 Dose: 5,000 units Levetiracetam (Keppra 500mg Ivpb) 500 mg in 100 mls @ 460 mls/hr IV Q12 [facility] Last Admin: 11/04/17 08:17 Dose: 460 mls/hr Labetalol HCl (Trandate) 300 mg PO TID [facility] Last Admin: 11/04/17 13:50 Dose: 300 mg Levothyroxine Sodium (Synthroid) 75 mcg PO 0600 [facility] Last Admin: 11/04/17 05:32 Dose: 75 mcg Lisinopril (Zestril) 40 mg PO DAILY [facility] Last Admin: 11/04/17 12:08 Dose: 40 mg Lorazepam (Ativan) 2 mg IVP Q4H PRN; Protocol PRN Reason: Seizure activity Ondansetron HCl (Zofran Inj) 4 mg IVP Q6H PRN PRN Reason: Nausea/Vomiting Last Admin: 11/04/17 13:51 Dose: 4 mg Pantoprazole Sodium (Protonix Ec Tab) 40 mg PO ACB [facility] Polyethylene Glycol (Miralax) 17 gm PO BID [facility] Last Admin: 11/04/17 08:18 Dose: 17 gm Sevelamer HCl (Renagel) 1,600 mg PO WM [facility] Last Admin: 11/04/17 12:08 Dose: 1,600 mg Sildenafil Citrate (Revatio) 20 mg PO DAILY [facility] Last Admin: 11/04/17 08:16 Dose: 20 mg Tramadol HCl (Ultram) 50 mg PO TID PRN PRN Reason: Pain, moderate (4-7) Last Admin: 11/04/17 13:51 Dose: 50 mg - Labs Labs: 11/04/17 05:30 11/04/17 05:30 PT 11.3 SECONDS (9.4-12.5) 11/03/17 00:26 INR 0.99 (0.93-1.08) 11/03/17 00:26 APTT 30.4 Seconds (25.1-36.5) 11/03/17 00:26 - Constitutional Appears: No Acute Distress - Extremities Exam Extremities Exam: Normal Capillary Refill (Vascular exam shows 1/4 palable pedal pulses to the feet; Neurological sensation to the feet and legs are WNL). absent: Calf Tenderness, Joint Swelling Additional comments: wound on right calf evaluated - still with pain with minimal palpation - no cellulitis tissue is granular with central yellow fibrous tissue; no undermining no sinus tract no pus or fluctuance noted; Assessment and Plan - Assessment and Plan (Free Text) Assessment: calciphalaxis right leg slowly improving ESRD on HD Plan: local started - optifoam daily with NS cleaning once pt is stable we will bring to OR for debridement and application of apligraft heel pads ordered
--- NOTE | 2017-11-04 22:02 | PN ---
DATE: 11/04/2017 SUBJECTIVE: Patient is seen lying in bed in the ICU. She is arousable. She is comfortable. She reports that she can move all her extremities. Her face is swollen. She denies any headaches at present. She denies any chest pain at present. PHYSICAL EXAMINATION: GENERAL: Middle-aged lady, lying in bed in the ICU. VITAL SIGNS: Blood pressure 138/56, heart rate 65, respiratory rate 20, temperature 98.4. HEENT: Normocephalic, atraumatic. NECK: Supple, no JVD. LUNGS: Bilateral equal air entry, no rales. CARDIAC: S1, S2. Regular rate and rhythm. No murmur, no rub. ABDOMEN: Obese, distended, soft, nontender, bowel sounds present. EXTREMITIES: No lower extremity edema. She has got dressing of her right lower leg. INTAKE AND OUTPUT: 455/50. LABORATORY DATA: WBC 6.5, hemoglobin 9.8, hematocrit 33, platelets 255. Sodium 135, potassium 3.7, chloride 93, CO2 of 27, BUN 27, creatinine 4.1, glucose 90, calcium 10.1, phosphorus 7.8. Troponin 0.14, second set 0.18. Wound culture pending. MRI of the brain, extensive chronic confluent white matter ischemic changes, discrete area of low probably represents chronic infarct changes in the right occipitoparietal zone, moderate generalized volume loss. CURRENT MEDICATIONS: Aspirin, Ativan 2 mg q.4 p.r.n., Catapres 0.2 t.i.d., Colace 100 t.i.d., heparin 5000 q.12, Keppra 500 IV piggyback q.12, MiraLax 17 g, amlodipine 10, Plavix 75, Protonix 40, Renagel 1600 with meals, Revatio 20, Synthroid 75, Trandate 300 t.i.d., Tylenol, Ultram 50 t.i.d., lisinopril 40, Zofran, nicardipine discontinued this morning, labetalol IV given yesterday. ASSESSMENT: 1. Hypertensive emergency with hypertensive encephalopathy, hypertensive seizures. 2. New acute cerebrovascular accident. 3. Posterior reversible encephalopathy syndrome. 4. End-stage renal disease. 5. Hypertensive heart disease. 6. Diffuse atherosclerotic disease. 7. Chronic obstructive pulmonary disease. 8. Severe anemia secondary to chronic kidney disease. 9. Secondary hyperparathyroidism. 10. Hypothyroidism. PLAN: 1. Patient had full dialysis treatment yesterday. No clinical indication for dialysis today. 2. Blood pressure is well controlled at this time. Patient is off all IV medications. Blood pressure is so good at present makes me wonder if patient is compliant with her antihypertensives at home. 3. Will need strict adherence to antiseizure protocol. 4. Next dialysis will be tomorrow. 5. Continue phosphate binders. 6. Continue to monitor closely for recurrent seizures. 7. Case discussed with the ICU staff at length. 8. Case discussed with dialysis staff. More than 35 minutes spent in the care of this critically ill patient. Tamanna Smith MD
--- NOTE | 2017-11-04 22:04 | PN ---
DATE: SUBJECTIVE: The patient is 57 years old seen and examined, fully awake, alert, oriented, complain of pain in the right leg area. No nausea or vomiting, no diarrhea. PHYSICAL EXAMINATION: VITAL SIGNS: She is afebrile, pulse 65, respirations 20, blood pressure 138/56. LUNGS: Bilateral good air flow. No rhonchi or crackle. HEART: S1, S2 audible. ABDOMEN: Soft, nontender. No rebound, no guarding. NEUROLOGIC: She is awake and alert, able to communicate, has generalized weakness. Right chin also seems to be healing. LABORATORY DATA: WBC is 6.5, hemoglobin 9.8, hematocrit 33.1, platelet 255. Chemistry: Sodium 135, potassium 3.7, chloride 93, CO2 of 27, BUN 27, creatinine 4.1, blood sugar of 90, troponin 0.18. ASSESSMENT: 1. Hypertensive encephalopathy. 2. Seizure disorder. 3. Uncontrolled hypertension. 4. Coronary artery disease, status post angioplasty. 5. End-stage renal disease, on hemodialysis. 6. Gastritis. PLAN: We will continue patient on Keppra. Currently she is on clonidine 0.2 three times a day. She is on DVT prophylaxis. We will continue her on laxatives, continue on Plavix and amlodipine. She is on labetalol 300 three times a day. Patient is asking for injectable narcotic. I advised her to stay away from IV narcotics . She does not like tramadol. She stated it makes her nauseous and it does not work either, so I will start her on small dose of Percocet. She will be transferred to Telemetry, request for physical therapy eval. We will follow up this patient in . Brittany Coffman MD
[2017-11-05] MEDS: Levothyroxine 75 MCG TAB PO SCH (05:18)
[2017-11-05 06:34] LABS: BASO # 0.01 K/mm3 (0.0-2.0); BASO % 0.2 % (0.0-3.0); EOS # 0.1 (0.0-0.7); EOS % 1.5 % (1.5-5.0); GRAN # 3.68 (1.4-6.5); HEMOGLOBIN 8.7 g/dL (12.0-16.0); LYMPH # 1.3 (1.2-3.4); LYMPH % 24.5 % (22.0-35.0); MEAN CELL VOLUME 93.9 fl (80.0-105.0); MEAN CORPUSCULAR HGB CONC 29.8 g/dl (31.0-37.0); MEAN PLATELET VOLUME 10.2 fl (7.0-11.0); MONO # 0.4 (0.1-0.6); MONO % 6.8 % (1.0-6.0); RBC 3.11 10^6/uL (3.5-6.1); RED CELL DISTRIBUTION WIDTH 16.1 % (11.5-14.5); WHITE BLOOD COUNT 5.5 10^3/ul (4.5-11.0)
[2017-11-05 07:09] LABS: ALB/GLOB RATIO 1.5 (1.1-1.8); ALBUMIN 3.1 g/dL (3.0-4.8); CALCIUM 9.2 mg/dL (8.4-10.5)
[2017-11-05 08:52] LABS: MAGNESIUM 2.2 mg/dL (1.7-2.2)
[2017-11-05] MEDS: POLYETHYLENE GLYCOL 3350 17 GM/Dose PACKET PO SCH ×2 (11:11→17:12)
[2017-11-05] MEDS: levETIRAcetam 500mg IVPB 500 MG/100 ML BAG IV SCH ×2 (11:11→22:19)
[2017-11-05] MEDS: Pantoprazole 40 mg EC Tab PO SCH (11:12)
[2017-11-05] MEDS: Sildenafil 20 MG TAB PO SCH (11:12)
--- NOTE | 2017-11-05 14:08 | PN ---
DATE: REASON FOR THE CONSULTATION AND FOLLOWUP: Cardiac evaluation, history of coronary artery disease, peripheral arterial disease and end-stage renal disease admitted with new onset of seizure and recurrent seizure. SUBJECTIVE: The patient denies any chest pain, shortness of breath or any palpitations. Seen in Dialysis, having dialysis. PHYSICAL EXAMINATION VITAL SIGNS: Temperature afebrile, heart rate 60, blood pressure 169/68. HEENT: PERRLA. Extraocular muscles are intact. NECK: Supple. No carotid bruit or thyromegaly. CHEST: Clear to auscultation. HEART: S1 and S2 regular. ABDOMEN: Soft. EXTREMITIES: Clubbing and cyanosis negative. LABORATORY DATA: Blood workup as follows: WBC 5.5, hemoglobin 8.7, hematocrit 29.2, platelet count 311,000. Chemistry shows sodium 138, potassium 4.6, chloride 94, carbon dioxide 25, anion gap of 17, BUN 39, creatinine 5.6. IMPRESSION 1. New onset of recurrent seizure; history of coronary artery disease, status post stent in obtuse marginal 1 at [facility] after non-ST segment myocardial infarction on 01/12/2017. The patient's last echo on 08/20/2017 showed preserved left ventricular ejection fraction of 65% to 70%. Last stress test on 08/21/2017 was negative for ischemia. Three episodes of seizure in the Emergency Room and one episode at home. CT scan shows hypodense lacunar infarct, new compared to the previous study. Mildly encephalopathic on admission, now improved. 2. Diabetes and hypertension; end-stage renal disease, on dialysis; poorly controlled hypertension, history of severe peripheral arterial disease; history of mesenteric angiogram, negative for mesenteric ischemia. 3. History of right carotid artery stenting. 4. Borderline troponin on admission most likely secondary to end-stage renal disease, no evidence of ischemia or chest pain. RECOMMENDATIONS: Aggressive control of blood pressure. Since the p.o. medicines were started, blood pressure is stable, having the dialysis. We will reevaluate after the dialysis. The patient needs more medications. We will follow with you. Thank you, Dr. Coffman, for providing us the opportunity in taking care of the patient. Pj Ontiveros MD
--- NOTE | 2017-11-05 14:52 | PN ---
DATE: SUBJECTIVE: Patient is 57 years old, seen and examined. Awake, alert, oriented, and communicative. Complains of leg pain. Complains of heart burn, off and on. OBJECTIVE: VITAL SIGNS: She is afebrile, pulse 60, respirations 18, blood pressure 165/69. LUNGS: Bilateral fair airflow. No rhonchi or crackle. She has diffusely decreased breath sounds. HEART: S1 and S2 audible. ABDOMEN: Soft, nontender. No rebound. No guarding. NEUROLOGIC: She is awake, alert, and oriented. Has generalized weakness, difficulty getting out of bed on her own, difficulty walking. She has right francis ulcer that seems to be healing. LABORATORY EXAM: Sodium 132, potassium 4.6, chloride 94, CO2 of 25. BUN 39, creatinine 5.6. Blood sugar of 83. WBC of 5.5, hemoglobin 8.7, hematocrit 29.2, and platelets 211. ASSESSMENT: 1. Hypertensive emergency, status post hypertensive encephalopathy. 2. Seizure disorder. 3. Cerebrovascular accident. 4. Status post posterior reversible encephalopathy syndrome. 5. Chronic anemia. 6. Gastritis. 7. Chronic obstructive pulmonary disease. 8. Atherosclerotic disease. 9. Pulmonary hypertension. 10. Hypothyroidism. PLAN: Currently, patient is on dialysis. Her blood pressure seems to be settling down. Patient needs to be in acute rehab. I discussed with the family. They do not want her to be in subacute rehab rather they want therapy at home, so we will continue patient on Keppra, Percocet as needed. She is on Plavix. She is on labetalol and lisinopril. I will discuss with medical social worker and make disposition. Brittany Coffman MD
--- NOTE | 2017-11-05 16:19 | CP.PCM.PN ---
Subjective - Date & Time of Evaluation Date of Evaluation: 11/05/17 Time of Evaluation: 11:10 - Subjective Subjective: Podiatry Progress Note- Dr. Blanton 57 y.o female seen and evaluated at bedside for right leg ulceration most likely secondary to calciphalaxis. Patient is seen resting comfortably in bed, in NAD, and AA0x3. Patient reports the same pain to the ulceration site. Patient denies n/v/sob/cp/chills or f. Patient has no new complaints. Objective - Vital Signs/Intake and Output Vital Signs (last 24 hours): Temp Pulse Resp BP Pulse Ox 97.9 F 61 18 161/69 H 99 11/05/17 11:33 11/05/17 14:14 11/05/17 11:33 11/05/17 14:14 11/05/17 08:46 Intake and Output: 11/05/17 11/05/17 06:59 18:59 Intake Total 200 Balance 200 - Medications Medications: Current Medications Acetaminophen (Tylenol 325mg Tab) 650 mg PO Q6H PRN PRN Reason: Pain, severe (8-10) Last Admin: 11/04/17 05:32 Dose: 650 mg Amlodipine Besylate (Norvasc) 10 mg PO DAILY [facility] Last Admin: 11/05/17 11:11 Dose: 10 mg Aspirin (Aspirin Chewable) 81 mg PO DAILY [facility] Last Admin: 11/05/17 11:11 Dose: 81 mg Clonidine HCl (Catapres) 0.2 mg PO TID [facility] Last Admin: 11/05/17 14:14 Dose: 0.2 mg Clopidogrel Bisulfate (Plavix) 75 mg PO DAILY [facility] Last Admin: 11/05/17 11:11 Dose: 75 mg Docusate Sodium (Colace) 100 mg PO TID [facility] Last Admin: 11/05/17 14:13 Dose: 100 mg Heparin Sodium (Porcine) (Heparin) 5,000 units SC Q12 [facility] PRN Reason: Protocol Last Admin: 11/05/17 11:11 Dose: 5,000 units Levetiracetam (Keppra 500mg Ivpb) 500 mg in 100 mls @ 460 mls/hr IV Q12 [facility] Last Admin: 11/05/17 11:11 Dose: 460 mls/hr Labetalol HCl (Trandate) 300 mg PO TID [facility] Last Admin: 11/05/17 14:13 Dose: 300 mg Levothyroxine Sodium (Synthroid) 75 mcg PO 0600 [facility] Last Admin: 11/05/17 05:18 Dose: 75 mcg Lisinopril (Zestril) 40 mg PO DAILY [facility] Last Admin: 11/05/17 11:10 Dose: 40 mg Lorazepam (Ativan) 2 mg IVP Q4H PRN; Protocol PRN Reason: Seizure activity Ondansetron HCl (Zofran Inj) 4 mg IVP Q6H PRN PRN Reason: Nausea/Vomiting Last Admin: 11/05/17 11:21 Dose: 4 mg Oxycodone/Acetaminophen (Percocet 5/325 Mg Tab) 1 tab PO Q6H PRN PRN Reason: Pain, moderate (4-7) Stop: 11/07/17 16:38 Last Admin: 11/05/17 11:34 Dose: 1 tab Pantoprazole Sodium (Protonix Ec Tab) 40 mg PO ACB [facility] Last Admin: 11/05/17 11:12 Dose: 40 mg Polyethylene Glycol (Miralax) 17 gm PO BID [facility] Last Admin: 11/05/17 11:11 Dose: 17 gm Sevelamer HCl (Renagel) 1,600 mg PO WM [facility] Last Admin: 11/05/17 11:10 Dose: Not Given Sildenafil Citrate (Revatio) 20 mg PO DAILY [facility] Last Admin: 11/05/17 11:12 Dose: 20 mg - Labs Labs: 11/05/17 06:10 11/05/17 06:10 PT 11.3 SECONDS (9.4-12.5) 11/03/17 00:26 INR 0.99 (0.93-1.08) 11/03/17 00:26 APTT 30.4 Seconds (25.1-36.5) 11/03/17 00:26 - Constitutional Appears: Well, Non-toxic, No Acute Distress - Extremities Exam Extremities Exam: absent: Calf Tenderness Additional comments: Vasc: DP/PT pulses palpable 2/4 B/L. Skin temperature warm to warm from proximal to distal. CFT < 3 seconds to all digits B/L. No pedal edema noted. 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 Base is fibrogranular, mostly granular, with periwound erythema. No malodor, no purulence, no tunneling, tracking, undermining, probe to bone or fluctuance. No maceration, xerosis, abnormal pigmentation or abnormal growths noted to b/l LE. Neuro: Epicritic and protective sensation grossly intact B/L. Ortho: Severe pain on palpation right leg ulceration. 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 Blanton Vitals, chart, and labs reviewed- afebrile, WBC=5.5 Right leg ulcer cleansed with sterile saline and dressed with Optifoam - stable , will continue to monitor Multipodus boots ordered - to be worn at all times in bed Patient will go to the OR Thursday morning for debridement of ulceration and application of graft Podiatry will continue to follow while in house
[2017-11-05] MEDS ORDERED: Morphine 2 mg/ml ISec IVP PRN (17:02)
[2017-11-05] MEDS: Morphine 2 mg/ml ISec IVP PRN ×2 (17:23→22:19)
--- NOTE | 2017-11-05 19:00 | PN ---
DATE: 11/05/2017 SUBJECTIVE: Patient is seen sitting in chair. She complains not feeling well today. She complains of the headache. She complains of chest tightness. She complains of cough. She is almost choking. She also complains of vomiting this morning. PHYSICAL EXAMINATION: GENERAL: Middle-aged lady, lying in bed. VITAL SIGNS: Blood pressure 161/69, heart rate 61, respiratory rate 18, temperature 97.9. HEENT: Normocephalic, atraumatic. NECK: Supple, no JVD. LUNGS: Bilateral equal air entry, bilateral rhonchi, no rales. CARDIAC: S1, S2. Regular rate and rhythm. No murmur, no rub. ABDOMEN: Soft, nondistended, nontender, bowel sounds present. EXTREMITIES: Dressing of the right lower extremity. INTAKE AND OUTPUT: Not charted. LABORATORY DATA: WBC 5.5, hemoglobin 8.7, hematocrit 29, platelets 211. Sodium 132, potassium 4.6, chloride 94, CO2 25, BUN 39, creatinine 5.6, calcium 9.2, phosphorus 7.0, magnesium 2.2, albumin 3.1. Wound culture, Corynebacterium. CURRENT MEDICATIONS: Aspirin, Ativan, Catapres 0.2 t.i.d., Colace 100 t.i.d., heparin, Keppra 500 IV q. 12, MiraLax, amlodipine 10, Percocet, Plavix, Protonix, Renagel, Revatio 20, Synthroid 75, Trandate 300 t.i.d., Tylenol, Zestril 40, Zofran. ASSESSMENT: 1. Hypertensive emergency, hypertensive encephalopathy, hypertensive seizures. 2. Subacute/acute cerebrovascular accident. 3. Severe hypertension. 4. End stage renal disease. 5. Chronic obstructive pulmonary disease. 6. Anxiety disorder. 7. Severe anemia. PLAN: 1. Patient had stable dialysis treatment earlier today. 2. Currently, patient is coughing, complains of chest tightness, nausea, vomiting, give Zofran p.r.n. 3. Continue phosphate binders. 4. Continue quadruple antihypertensives. 5. Wound care. Tamanna Smith MD
[2017-11-06] MEDS: Morphine 2 mg/ml ISec IVP PRN ×2 (03:55→10:32)
[2017-11-06] MEDS ORDERED: Albuterol-Ipratrop 3 mg / 0.5 (3 ml) UD IH STA (04:11)
--- NOTE | 2017-11-06 04:11 | CP.PCM.PN ---
Subjective - Date & Time of Evaluation Date of Evaluation: 11/06/17 Time of Evaluation: 04:10 - Subjective Subjective: Patient seen at bedside. Complains of sob. Has no other complaints now. States that she is on nebulizer treatment at home. Denies chest pain, nausea, sweating , palpitations. Medical record was reviewed. This 57 year old woman was admitted with uncontrolled HTN. PMH: ESRD on HD, DM, HTN, CHF, Seizure. Objective - Vital Signs/Intake and Output Vital Signs (last 24 hours): Temp Pulse Resp BP Pulse Ox 98.3 F 68 20 169/68 H 99 11/06/17 00:01 11/06/17 02:00 11/06/17 00:01 11/06/17 00:01 11/06/17 00:01 - Medications Medications: Current Medications Acetaminophen (Tylenol 325mg Tab) 650 mg PO Q6H PRN PRN Reason: Pain, Mild (1-3) Amlodipine Besylate (Norvasc) 10 mg PO DAILY [facility] Last Admin: 11/05/17 11:11 Dose: 10 mg Aspirin (Aspirin Chewable) 81 mg PO DAILY [facility] Last Admin: 11/05/17 11:11 Dose: 81 mg Clonidine HCl (Catapres) 0.2 mg PO TID [facility] Last Admin: 11/05/17 17:16 Dose: 0.2 mg Clopidogrel Bisulfate (Plavix) 75 mg PO DAILY [facility] Last Admin: 11/05/17 11:11 Dose: 75 mg Docusate Sodium (Colace) 100 mg PO TID [facility] Last Admin: 11/05/17 17:12 Dose: 100 mg Heparin Sodium (Porcine) (Heparin) 5,000 units SC Q12 [facility] PRN Reason: Protocol Last Admin: 11/05/17 22:19 Dose: 5,000 units Levetiracetam (Keppra 500mg Ivpb) 500 mg in 100 mls @ 460 mls/hr IV Q12 [facility] Last Admin: 11/05/17 22:19 Dose: 460 mls/hr Labetalol HCl (Trandate) 300 mg PO TID [facility] Last Admin: 11/05/17 17:19 Dose: 300 mg Levothyroxine Sodium (Synthroid) 75 mcg PO 0600 [facility] Last Admin: 11/05/17 05:18 Dose: 75 mcg Lisinopril (Zestril) 40 mg PO DAILY [facility] Last Admin: 11/05/17 11:10 Dose: 40 mg Lorazepam (Ativan) 2 mg IVP Q4H PRN; Protocol PRN Reason: Seizure activity Morphine Sulfate (Morphine) 2 mg IVP Q4H PRN PRN Reason: Pain, severe (8-10) Last Admin: 11/06/17 03:55 Dose: 2 mg Ondansetron HCl (Zofran Inj) 4 mg IVP Q6H PRN PRN Reason: Nausea/Vomiting Last Admin: 11/06/17 03:55 Dose: 4 mg Oxycodone/Acetaminophen (Percocet 5/325 Mg Tab) 1 tab PO Q6H PRN PRN Reason: Pain, moderate (4-7) Stop: 11/07/17 16:38 Last Admin: 11/05/17 11:34 Dose: 1 tab Pantoprazole Sodium (Protonix Ec Tab) 40 mg PO ACB [facility] Last Admin: 11/05/17 11:12 Dose: 40 mg Polyethylene Glycol (Miralax) 17 gm PO BID [facility] Last Admin: 11/05/17 17:12 Dose: 17 gm Sevelamer HCl (Renagel) 1,600 mg PO WM [facility] Last Admin: 11/05/17 17:17 Dose: 1,600 mg Sildenafil Citrate (Revatio) 20 mg PO DAILY [facility] Last Admin: 11/05/17 11:12 Dose: 20 mg - Labs Labs: 11/05/17 06:10 11/05/17 06:10 PT 11.3 SECONDS (9.4-12.5) 11/03/17 00:26 INR 0.99 (0.93-1.08) 11/03/17 00:26 APTT 30.4 Seconds (25.1-36.5) 11/03/17 00:26 Micro Results 11/03/17 05:30 Naris MRSA Culture (Admit) - Final MRSA NOT DETECTED 11/03/17 15:03 Leg - Right Gram Stain - Final 11/03/17 15:03 Leg - Right Wound Culture - Final Corynebacterium Species Most Recent Lab Values WBC 5.5 10^3/ul (4.5-11.0) 11/05/17 06:10 RBC 3.11 10^6/uL (3.5-6.1) L 11/05/17 06:10 Hgb 8.7 g/dL (12.0-16.0) L 11/05/17 06:10 Hct 29.2 % (36.0-48.0) L 11/05/17 06:10 MCV 93.9 fl (80.0-105.0) 11/05/17 06:10 MCH 28.0 pg (25.0-35.0) 11/05/17 06:10 MCHC 29.8 g/dl (31.0-37.0) L 11/05/17 06:10 RDW 16.1 % (11.5-14.5) H 11/05/17 06:10 Plt Count 211 10^3/uL (120.0-450.0) 11/05/17 06:10 MPV 10.2 fl (7.0-11.0) 11/05/17 06:10 Gran % 67.0 % (50.0-68.0) 11/05/17 06:10 Lymph % (Auto) 24.5 % (22.0-35.0) 11/05/17 06:10 [place] % (Auto) 6.8 % (1.0-6.0) H 11/05/17 06:10 Eos % (Auto) 1.5 % (1.5-5.0) 11/05/17 06:10 Baso % (Auto) 0.2 % (0.0-3.0) 11/05/17 06:10 Gran # 3.68 (1.4-6.5) 11/05/17 06:10 Lymph # (Auto) 1.3 (1.2-3.4) 11/05/17 06:10 [place] # (Auto) 0.4 (0.1-0.6) 11/05/17 06:10 Eos # (Auto) 0.1 (0.0-0.7) 11/05/17 06:10 Baso # (Auto) 0.01 K/mm3 (0.0-2.0) 11/05/17 06:10 PT 11.3 SECONDS (9.4-12.5) 11/03/17 00:26 INR 0.99 (0.93-1.08) 11/03/17 00:26 APTT 30.4 Seconds (25.1-36.5) 11/03/17 00:26 Sodium 132 mmol/L (132-148) 11/05/17 06:10 Potassium 4.6 mmol/L (3.6-5.0) 11/05/17 06:10 Chloride 94 mmol/L (98-107) L 11/05/17 06:10 Carbon Dioxide 25 mmol/L (21-33) 11/05/17 06:10 Anion Gap 17 (10-20) 11/05/17 06:10 BUN 39 mg/dL (7-21) H 11/05/17 06:10 Creatinine 5.6 mg/dl (0.7-1.2) H 11/05/17 06:10 Est GFR ( Amer) 9 11/05/17 06:10 Est GFR (Non-Af Amer) 8 11/05/17 06:10 POC Glucose (mg/dL) 112 mg/dL (65-110) H 11/03/17 01:23 Random Glucose 83 mg/dL (70-110) 11/05/17 06:10 Hemoglobin A1c 4.7 % (4.2-6.5) 11/03/17 06:20 Calcium 9.2 mg/dL (8.4-10.5) 11/05/17 06:10 Phosphorus 7.0 mg/dL (2.5-4.5) H 11/05/17 08:20 Magnesium 2.2 mg/dL (1.7-2.2) 11/05/17 08:20 Total Bilirubin 0.4 mg/dL (0.2-1.3) 11/05/17 06:10 AST 19 U/L (14-36) 11/05/17 06:10 ALT 21 U/L (7-56) 11/05/17 06:10 Alkaline Phosphatase 80 U/L (38-126) 11/05/17 06:10 Lactate Dehydrogenase 702 U/L (333-699) H 11/03/17 00:26 Total Creatine Kinase 38 U/L (35-230) 11/03/17 06:20 Troponin I 0.18 ng/mL H* D 11/03/17 13:15 Total Protein 5.2 g/dL (5.8-8.3) L 11/05/17 06:10 Albumin 3.1 g/dL (3.0-4.8) 11/05/17 06:10 Globulin 2.1 gm/dL 11/05/17 06:10 Albumin/Globulin Ratio 1.5 (1.1-1.8) 11/05/17 06:10 Triglycerides 92 mg/dL (35-160) 11/03/17 06:20 Cholesterol 107 mg/dL (130-200) L 11/03/17 06:20 LDL Cholesterol Direct 47 mg/dL (0-129) 11/03/17 06:20 HDL Cholesterol 35 mg/dL (29-60) 11/03/17 06:20 Thyroxine (T4) 6.0 ug/dL (5.5-11.0) 11/03/17 06:20 TSH 3rd Generation 3.80 mIU/mL (0.46-4.68) 11/03/17 06:20 - Constitutional Appears: Well, No Acute Distress - Head Exam Head Exam: ATRAUMATIC, NORMAL INSPECTION, NORMOCEPHALIC - Eye Exam Eye Exam: Normal appearance - ENT Exam ENT Exam: Normal External Ear Exam - Neck Exam Neck Exam: Normal Inspection - Respiratory Exam Respiratory Exam: Wheezes (Occ.), NORMAL BREATHING PATTERN - Cardiovascular Exam Cardiovascular Exam: absent: JVD - GI/Abdominal Exam GI & Abdominal Exam: absent: Distended - Rectal Exam Rectal Exam: Deferred - Exam Additional comments: Deferred. - Extremities Exam Extremities Exam: Normal Inspection - Back Exam Back Exam: NORMAL INSPECTION - Neurological Exam Neurological Exam: Alert, Oriented x3 - Psychiatric Exam Psychiatric exam: Normal Affect, Normal Mood - Skin Skin Exam: Normal Color Assessment and Plan - Assessment and Plan (Free Text) Assessment: Dyspnea. Wheezing. Uncontrolled HTN. CHF. ESRD. On hemodialysis. Plan: Duoneb neb treatment as ordered. Continue present management as per PMD.
[2017-11-06] MEDS: Levothyroxine 75 MCG TAB PO SCH (05:04)
[2017-11-06 06:37] VITALS: O2SAT 100
[2017-11-06 06:47] LABS: BASO # 0.01 K/mm3 (0.0-2.0); BASO % 0.2 % (0.0-3.0); EOS # 0.1 (0.0-0.7); EOS % 1.2 % (1.5-5.0); GRAN # 3.62 (1.4-6.5); GRAN % 71.4 % (50.0-68.0); LYMPH % 19.9 % (22.0-35.0); MEAN CORPUSCULAR HEMOGLOBIN 27.7 pg (25.0-35.0); MEAN CORPUSCULAR HGB CONC 28.8 g/dl (31.0-37.0); MEAN PLATELET VOLUME 10.4 fl (7.0-11.0); MONO # 0.4 (0.1-0.6); MONO % 7.3 % (1.0-6.0); RBC 3.25 10^6/uL (3.5-6.1); WHITE BLOOD COUNT 5.1 10^3/ul (4.5-11.0)
[2017-11-06 07:02] LABS: ALB/GLOB RATIO 1.5 (1.1-1.8); ALBUMIN 3.2 g/dL (3.0-4.8); CALCIUM 9.9 mg/dL (8.4-10.5)
[2017-11-06] MEDS: Sildenafil 20 MG TAB PO SCH (10:25)
[2017-11-06] MEDS: levETIRAcetam 500mg IVPB 500 MG/100 ML BAG IV SCH (10:27)
[2017-11-06] MEDS: POLYETHYLENE GLYCOL 3350 17 GM/Dose PACKET PO SCH (10:27)
[2017-11-06] MEDS: Pantoprazole 40 mg EC Tab PO SCH (10:32)
[2017-11-06 11:42] VITALS: RESP 18; TEMP 98.5
--- NOTE | 2017-11-06 12:00 | CP.PCM.PN ---
<Addison Torres - Last Filed: 11/06/17 11:55> Subjective - Date & Time of Evaluation Date of Evaluation: 11/06/17 Time of Evaluation: 11:00 - Subjective Subjective: Podiatry Progress Note- Dr. 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 Patient is seen resting comfortably in bed, in NAD, and AA0x3. Patient reports the same pain to the ulceration site that is well controlled by medications. Patient denies n/v/sob/cp/chills or f. Patient has no new complaints. Objective - Vital Signs/Intake and Output Vital Signs (last 24 hours): Temp Pulse Resp BP Pulse Ox 98.5 F 64 18 126/73 100 11/06/17 11:41 11/06/17 11:41 11/06/17 11:41 11/06/17 11:41 11/06/17 06:00 Intake and Output: 11/06/17 11/06/17 06:59 18:59 Intake Total 460 Balance 460 - Medications Medications: Current Medications Acetaminophen (Tylenol 325mg Tab) 650 mg PO Q6H PRN PRN Reason: Pain, Mild (1-3) Amlodipine Besylate (Norvasc) 10 mg PO DAILY [facility] Last Admin: 11/06/17 10:26 Dose: 10 mg Aspirin (Aspirin Chewable) 81 mg PO DAILY [facility] Last Admin: 11/06/17 10:25 Dose: 81 mg Clonidine HCl (Catapres) 0.2 mg PO TID [facility] Last Admin: 11/06/17 10:25 Dose: 0.2 mg Clopidogrel Bisulfate (Plavix) 75 mg PO DAILY [facility] Last Admin: 11/06/17 10:26 Dose: 75 mg Docusate Sodium (Colace) 100 mg PO TID [facility] Last Admin: 11/06/17 10:25 Dose: 100 mg Heparin Sodium (Porcine) (Heparin) 5,000 units SC Q12 [facility] PRN Reason: Protocol Last Admin: 11/06/17 10:26 Dose: 5,000 units Levetiracetam (Keppra 500mg Ivpb) 500 mg in 100 mls @ 460 mls/hr IV Q12 [facility] Last Admin: 11/06/17 10:27 Dose: 460 mls/hr Labetalol HCl (Trandate) 300 mg PO TID [facility] Last Admin: 11/06/17 10:26 Dose: 300 mg Levothyroxine Sodium (Synthroid) 75 mcg PO 0600 [facility] Last Admin: 11/06/17 05:04 Dose: 75 mcg Lisinopril (Zestril) 40 mg PO DAILY [facility] Last Admin: 11/06/17 10:26 Dose: 40 mg Lorazepam (Ativan) 2 mg IVP Q4H PRN; Protocol PRN Reason: Seizure activity Morphine Sulfate (Morphine) 2 mg IVP Q4H PRN PRN Reason: Pain, severe (8-10) Last Admin: 11/06/17 10:32 Dose: 2 mg Ondansetron HCl (Zofran Inj) 4 mg IVP Q6H PRN PRN Reason: Nausea/Vomiting Last Admin: 11/06/17 03:55 Dose: 4 mg Oxycodone/Acetaminophen (Percocet 5/325 Mg Tab) 1 tab PO Q6H PRN PRN Reason: Pain, moderate (4-7) Stop: 11/07/17 16:38 Last Admin: 11/05/17 11:34 Dose: 1 tab Pantoprazole Sodium (Protonix Ec Tab) 40 mg PO ACB [facility] Last Admin: 11/06/17 10:32 Dose: 40 mg Polyethylene Glycol (Miralax) 17 gm PO BID [facility] Last Admin: 11/06/17 10:27 Dose: 17 gm Sevelamer HCl (Renagel) 1,600 mg PO WM [facility] Last Admin: 11/06/17 10:25 Dose: 1,600 mg Sildenafil Citrate (Revatio) 20 mg PO DAILY [facility] Last Admin: 11/06/17 10:25 Dose: 20 mg - Labs Labs: 11/06/17 06:30 11/06/17 06:30 PT 11.3 SECONDS (9.4-12.5) 11/03/17 00:26 INR 0.99 (0.93-1.08) 11/03/17 00:26 APTT 30.4 Seconds (25.1-36.5) 11/03/17 00:26 - Constitutional Appears: Well, Non-toxic, No Acute Distress - Extremities Exam Additional comments: Vasc: DP/PT pulses palpable 2/4 B/L. Skin temperature warm to warm from proximal to distal. CFT < 3 seconds to all digits B/L. No pedal edema noted. 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 Base is fibrogranular, mostly granular, with periwound erythema. No malodor, no purulence, no tunneling, tracking, undermining, probe to bone or fluctuance. No maceration, xerosis, abnormal pigmentation or abnormal growths noted to b/l LE. Neuro: Epicritic and protective sensation grossly intact B/L. Ortho: Severe pain on palpation right leg ulceration. 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 Blanton Vitals, chart, and labs reviewed- afebrile, WBC=5.1 Right leg ulcer cleansed with sterile saline and dressed with Optifoam - stable , will continue to monitor Multipodus boots ordered - to be worn at all times in bed Patient will go to the OR Thursday morning for superficial debridement of ulceration and application of graft Please provide medical clearance- thank you Podiatry will continue to follow while in house <Dougie Forte - Last Filed: 11/06/17 16:47> Objective - Vital Signs/Intake and Output Vital Signs (last 24 hours): Temp Pulse Resp BP Pulse Ox 98.5 F 67 18 142/74 100 11/06/17 11:41 11/06/17 13:10 11/06/17 11:41 11/06/17 13:10 11/06/17 06:00 Intake and Output: 11/06/17 11/06/17 06:59 18:59 Intake Total 460 420 Balance 460 420 - Labs Labs: 11/06/17 06:30 11/06/17 06:30 PT 11.3 SECONDS (9.4-12.5) 11/03/17 00:26 INR 0.99 (0.93-1.08) 11/03/17 00:26 APTT 30.4 Seconds (25.1-36.5) 11/03/17 00:26 Attending/Attestation - Attestation I have personally seen and examined this patient.: Yes I have fully participated in the care of the patient.: Yes I have reviewed all pertinent clinical information, including history, physical exam and plan: Yes
[2017-11-06 13:13] VITALS: BP 142/74; PULSE 67
--- NOTE | 2017-11-06 20:11 | PN ---
DATE: CONSULTING PHYSICIAN: Pj Ontiveros M.D. REASON FOR CONSULTATION: Cardiac evaluation, history of coronary artery disease, peripheral arterial disease, end-stage renal disease, admitted with a new onset seizure, recurrent seizure. SUBJECTIVE: The patient denies any chest pain, shortness of breath, or any palpitation. Lying flat on bed. OBJECTIVE: GENERAL: Not in apparent distress. VITAL SIGNS: Temperature afebrile, heart rate 67, blood pressure 142/74. HEENT: PERRLA. Extraocular muscles Intact. NECK: Supple. No carotid bruits or thyromegaly. CHEST: Clear to auscultation. HEART: S1 and S2 regular. ABDOMEN: Soft. EXTREMITIES: Clubbing and cyanosis, negative. LABORATORY DATA: Blood workup as follows: WBC , hemoglobin 9, hematocrit 31.2, and platelet count 192. Chemistries show sodium 140, potassium 4.4, chloride 100, carbon dioxide 31, anion gap of 13, BUN 32, and creatinine 3.5. IMPRESSION: End-stage renal disease, on dialysis; recurrent seizure, new onset; diabetes; hypertension; hyperlipidemia; peripheral arterial disease; coronary artery disease, status post percutaneous transluminal coronary angioplasty. No evidence of acute myocardial infarction, history of percutaneous transluminal coronary angioplasty in the past in [facility] after [id number] myocardial infarction on 01/12/2017; last stress test on 08/21/2017, negative for ischemia; last echo on 08/20/2017, preserved left ventricular ejection fraction 65%; history of carotid artery stenting; history of diabetes, hypertension, hyperlipidemia, end-stage renal disease, on dialysis; history of peripheral arterial disease. RECOMMENDATIONS: Aggressive treatment for high blood pressure, fairly stable. Continue current medication. We will follow with you. Thank you, Dr. Coffman, for providing us the opportunity in taking care of the patient, Renetta Thakur. Pj Ontiveros MD
--- NOTE | 2017-11-09 09:46 | DS ---
HISTORY OF PRESENT ILLNESS: The patient is a 57-year-old who came in, she had a seizure at home, a family member called ambulance and she was brought to Emergency Room. She had another two seizures in the ER, was given Ativan, started on Keppra. A CT scan showed posterior reversible encephalopathy changes. Patient was admitted in the ICU, was initially on labetalol drip, has been on p.o. antihypertensive, doing well. Complained of generalized weakness. PHYSICAL EXAMINATION GENERAL: On examination, she is awake, alert, and oriented, communicative. VITAL SIGNS: She is afebrile. Pulse 64, respirations 18, blood pressure 126/73. LUNGS: Bilateral good airflow. No rhonchi or crackle. HEART: S1 and S2 audible. ABDOMEN: Soft, nontender. No rebound. No guarding. NEUROLOGIC: She is awake and alert, able to communicate, able to move all extremities, has generalized weakness, has difficulty walking and standing. LABORATORY DATA: WBC is 5.1, hemoglobin 9, hematocrit 31.2, and platelets 192,000. Chemistry: Sodium 140, potassium 4.4, chloride 100, CO2 31. BUN 22, creatinine 3.5. Blood sugar of 86. ASSESSMENT 1. Seizure disorder. 2. Hypertensive encephalopathy. 3. Uncontrolled hypertension. 4. End-stage renal disease. 5. Peptic ulcer disease. PLAN: Currently, the patient is on Keppra. I will continue her on MiraLax. She is on Norvasc 10 mg daily. She is on Plavix. Continue her on Renagel. She is on lisinopril 40 mg daily and labetalol 300 mg 3 times a day. Discussed with Podiatry. There is plan for debridement of calciphylaxis spots in OR and Therapy is recommending TCU, so, she will be transferred to TCU today and to be taken to OR on Brittany Coffman MD
--- NOTE | 2017-11-09 15:05 | EEG ---
DATE: ELECTROENCEPHALOGRAM CONDITION OF THE RECORDING: Drowsy. DIAGNOSIS: Altered mental status. MEDICATIONS: Reviewed by nurse per reconciliation sheet. INTERPRETATION: This is a 16-channel international recording. The background activity of this tracing was composed of 6 to 7 cycles per second. Small amount of beta activity of 16 to 20 cycles per second seen during this recording. There was increased amount of theta activity of 5 to 7 cycles per second seen during this tracing. Drowsiness was characterized by the mixed beta and theta activities. The sleep was characterized by vertex transient waves, sleep spindles, and bilateral slowing. Photic stimulation showed no changes in the tracing. No paroxysmal activities noted in this recording. CONCLUSION: This is an abnormal EEG due to the presence of diffuse bilateral cerebral dysfunction. No evidence of any epileptiform activity. Please clinically correlate. Rico Ortiz MD
== END 2017-11-06 14:41 | DRG 77 ==
LOC: ED 23:48 → ERH 11-03 04:34 → ICU 11-03 05:21 → 2RNO 11-04 23:01
PROVIDERS: ADMIT Internal Medicine; ATTEND Internal Medicine
PROC: 02HV33Z Insertion of Infusion Device into Superior Vena Cava, Percutaneous Approach (ICD-10-PCS; principal; 2017-11-03)
PROC: B54NZZA Ultrasonography of Left Upper Extremity Veins, Guidance (ICD-10-PCS; 2017-11-03)
PROC: 5A1D70Z Performance of Urinary Filtration, Intermittent, Less than 6 Hours Per Day (ICD-10-PCS; 2017-11-03)
PROC: 5A1D70Z Performance of Urinary Filtration, Intermittent, Less than 6 Hours Per Day (ICD-10-PCS; 2017-11-05)
DX: I67.4 Hypertensive encephalopathy (principal); N18.6 End stage renal disease; I13.2 Hypertensive heart and chronic kidney disease with heart failure and with stage 5 chronic kidney disease, or end stage renal disease; E11.22 Type 2 diabetes mellitus with diabetic chronic kidney disease; E11.51 Type 2 diabetes mellitus with diabetic peripheral angiopathy without gangrene; E83.59 Other disorders of calcium metabolism; I27.20 Pulmonary hypertension, unspecified; I50.30 Unspecified diastolic (congestive) heart failure; I16.1 Hypertensive emergency; N25.81 Secondary hyperparathyroidism of renal origin; I42.9 Cardiomyopathy, unspecified; L97.819 Non-pressure chronic ulcer of other part of right lower leg with unspecified severity; G40.909 Epilepsy, unspecified, not intractable, without status epilepticus; K27.9 Peptic ulcer, site unspecified, unspecified as acute or chronic, without hemorrhage or perforation; E11.622 Type 2 diabetes mellitus with other skin ulcer; I25.10 Atherosclerotic heart disease of native coronary artery without angina pectoris; E03.9 Hypothyroidism, unspecified; J44.9 Chronic obstructive pulmonary disease, unspecified; D63.1 Anemia in chronic kidney disease; K29.70 Gastritis, unspecified, without bleeding; F41.9 Anxiety disorder, unspecified; E78.5 Hyperlipidemia, unspecified; I25.2 Old myocardial infarction; Z99.2 Dependence on renal dialysis; Z99.81 Dependence on supplemental oxygen; Z95.5 Presence of coronary angioplasty implant and graft; Z87.891 Personal history of nicotine dependence; Z86.73 Personal history of transient ischemic attack (TIA), and cerebral infarction without residual deficits; Z88.1 Allergy status to other antibiotic agents

== ENCOUNTER 2017-11-06 14:41 | Inpatient (IN) | payer OTHER ==
[2017-11-06 15:42] VITALS: BMI 19.8
[2017-11-06] MEDS ORDERED: Oxycodone/Acetaminophen 5/325 mg Tab PO PRN (16:11)
[2017-11-06] MEDS: POLYETHYLENE GLYCOL 3350 17 GM/Dose PACKET PO SCH (17:59)
[2017-11-06] MEDS ORDERED: Influenza Vaccine 60 mcg/0.5 mL SYR (4YR UP) IM ONE (21:07)
[2017-11-06] MEDS ORDERED: Pneumococcal 23-Valent Vaccine IM ONE (21:07)
[2017-11-06] MEDS: Levalbuterol 1.25 MG/3 ML Inhal Soln UD IH SCH (21:14)
[2017-11-06] MEDS: Morphine 2 mg/ml ISec IVP PRN (23:52)
[2017-11-07] MEDS: Levothyroxine 75 MCG TAB PO SCH (05:24)
[2017-11-07] MEDS: Pantoprazole 40 mg EC Tab PO SCH (05:24)
[2017-11-07] MEDS: Morphine 2 mg/ml ISec IVP PRN ×2 (05:26→17:17)
[2017-11-07] MEDS: Levalbuterol 1.25 MG/3 ML Inhal Soln UD IH SCH ×3 (08:55→20:07)
[2017-11-07] MEDS: Sildenafil 20 MG TAB PO SCH (09:42)
[2017-11-07] MEDS: POLYETHYLENE GLYCOL 3350 17 GM/Dose PACKET PO SCH ×2 (09:42→17:19)
--- NOTE | 2017-11-07 10:24 | CP.PCM.CON ---
<NavneetRick - Last Filed: 11/07/17 10:14> History of Present Illness - History of Present Illness History of Present Illness: Podiatry Progress Note- Dr. Forte 57 y.o female seen and evaluated at bedside for right leg ulceration. Patient is seen resting comfortably in bed, in NAD, and AA0x3. Patient reports the same pain to the ulceration site that is well controlled by medications. Patient denies n/v/sob/cp/chills or f. Patient has no new complaints. Review of Systems - Review of Systems All systems: reviewed and no additional remarkable complaints except Past Patient History - Infectious Disease Hx of Infectious Diseases: None - Tetanus Immunizations Tetanus Immunization: Unknown - Past Social History Smoking Status: Former Smoker - CARDIAC Hx Cardiac Disorders: Yes (s/p angio) Hx Congestive Heart Failure: Yes Hx Hypercholesterolemia: Yes Hx Hypertension: Yes - PULMONARY Hx Respiratory Disorders: Yes (USED TO SMOKE 4 CIG A DAY.) Hx Chronic Obstructive Pulmonary Disease (COPD): Yes Hx Pneumonia: Yes Hx Sleep Apnea: Yes - NEUROLOGICAL HX Cerebrovascular Accident: Yes - HEENT Hx HEENT Problems: Yes (hard of hearing,RIGHT EAR DEAF) Hx Blind: No Hx Cataracts: No Hx Deafness: No Hx Difficulty Chewing: No Hx Epistaxis: No Hx Glaucoma: No Hx Macular Degeneration: No Other/Comment: tinnitus, - RENAL Hx Chronic Kidney Disease: Yes ([place]IA) Hx Dialysis: Yes ([facility]) Date of Last Dialysis Treatment: 10/15/17 Hx Renal Failure: Yes - ENDOCRINE/METABOLIC Hx Hypothyroidism: Yes - HEMATOLOGICAL/ONCOLOGICAL Hx Blood Disorders: No Hx Cancer: No - INTEGUMENTARY Hx Dermatological Problems: No (non healing sugical wound to right ankle) Other/Comment: r ankle wound,non healing surgical wound cared for by dr parada at wound center, wound 5.5 X 3.5 cm ,right buttocks red and open to air, SCARRED AREA.multiple skin discolorations to ble,EDEMA +1.Left thumb area with a 0.7 scabbed wound from rubbing to wheelchair. - MUSCULOSKELETAL/RHEUMATOLOGICAL Hx Falls: Yes - GASTROINTESTINAL Hx Gastrointestinal Disorders: Yes (POOR APPETITE,DIVERTICULITIS,GASTROENTERITIS ,GASTRITIS) - GENITOURINARY/GYNECOLOGICAL Hx Genitourinary Disorders: Yes (ANURIC) Hx Reproductive Disorders: No - PSYCHIATRIC Hx Psychophysiologic Disorder: Yes Hx Anxiety: Yes Hx Bipolar Disorder: No Hx Depression: No Hx Emotional Abuse: No Hx Hallucinations: No Hx Panic Symptoms: No Hx Post Traumatic Stress Disorder: No Hx Psychosis: No Hx Physical Abuse: No Hx Schizophrenia: No Hx Sexual Abuse: No Hx Substance Use: No - SURGICAL HISTORY Hx Mastectomy: No - ANESTHESIA Hx Anesthesia: Yes Hx Anesthesia Reactions: No Hx Malignant Hyperthermia: No Meds Allergies/Adverse Reactions: Allergies Allergy/AdvReac Type Severity Reaction Status Date / Time ciprofloxacin Allergy RASH Verified 10/15/17 13:47 hydralazine Allergy RASH Verified 10/15/17 13:47 vancomycin Allergy SHORTNESS Verified 10/15/17 13:[address] dye Allergy RASH Uncoded 10/15/17 13:47 - Medications Medications: Current Medications Acetaminophen (Tylenol 325mg Tab) 650 mg PO Q6H PRN; Protocol PRN Reason: Pain, Mild (1-3) Amlodipine Besylate (Norvasc) 10 mg PO DAILY [facility] PRN Reason: Protocol Aspirin (Ecotrin) 81 mg PO 0800 [facility] PRN Reason: Protocol Last Admin: 11/07/17 07:59 Dose: 81 mg Clonidine HCl (Catapres) 0.2 mg PO TID [facility] PRN Reason: Protocol Last Admin: 11/06/17 17:55 Dose: 0.2 mg Docusate Sodium (Colace) 100 mg PO TID [facility] PRN Reason: Protocol Last Admin: 11/07/17 09:41 Dose: 100 mg Labetalol HCl (Trandate) 300 mg PO TID [facility] PRN Reason: Protocol Last Admin: 11/07/17 09:43 Dose: 300 mg Levalbuterol HCl (Xopenex) 1.25 mg IH TIDRESP [facility] Last Admin: 11/07/17 08:55 Dose: 1.25 mg Levetiracetam (Keppra) 500 mg PO BID [facility] PRN Reason: Protocol Last Admin: 11/07/17 09:43 Dose: 500 mg Levothyroxine Sodium (Synthroid) 75 mcg PO 0600 [facility] PRN Reason: Protocol Last Admin: 11/07/17 05:24 Dose: 75 mcg Lisinopril (Zestril) 40 mg PO DAILY [facility] PRN Reason: Protocol Last Admin: 11/07/17 10:01 Dose: Not Given Lorazepam (Ativan) 2 mg IVP Q6H PRN; Protocol PRN Reason: Anxiety Morphine Sulfate (Morphine) 2 mg IVP Q4H PRN; Protocol PRN Reason: Pain, severe (8-10) Last Admin: 11/07/17 05:26 Dose: 2 mg Ondansetron HCl (Zofran Inj) 4 mg IVP Q6H PRN; Protocol PRN Reason: Nausea/Vomiting Last Admin: 11/07/17 09:48 Dose: 4 mg Oxycodone/Acetaminophen (Percocet 5/325 Mg Tab) 1 tab PO Q6H PRN; Protocol PRN Reason: Pain, moderate (4-7) Stop: 11/09/17 16:12 Pantoprazole Sodium (Protonix Ec Tab) 40 mg PO 0600 [facility] PRN Reason: Protocol Last Admin: 11/07/17 05:24 Dose: 40 mg Polyethylene Glycol (Miralax) 17 gm PO BID [facility] PRN Reason: Protocol Last Admin: 11/07/17 09:42 Dose: 17 gm Sevelamer HCl (Renagel) 1,600 mg PO 0800,1200,1800 [facility] PRN Reason: Protocol Last Admin: 11/07/17 07:59 Dose: 1,600 mg Sildenafil Citrate (Revatio) 20 mg PO DAILY [facility] PRN Reason: Protocol Last Admin: 11/07/17 09:42 Dose: 20 mg Physical Exam - Constitutional Appears: Well, Non-toxic, No Acute Distress - Extremities Exam Additional comments: Vasc: DP/PT pulses palpable 2/4 B/L. Skin temperature warm to warm from proximal to distal. CFT < 3 seconds to all digits B/L. No pedal edema noted. 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 Base is fibrogranular, mostly granular, with periwound erythema. No malodor, no purulence, no tunneling, tracking, undermining, probe to bone or fluctuance. No maceration, xerosis, abnormal pigmentation or abnormal growths noted to b/l LE. Neuro: Epicritic and protective sensation grossly intact B/L. Ortho: Severe pain on palpation right leg ulceration. 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 Forte Vitals, chart, and labs reviewed- afebrile, WBC=5.1 Right leg ulcer cleansed with sterile saline and dressed with Optifoam - stable , will continue to monitor Multipodus boots ordered - to be worn at all times in bed Patient will go to the OR Thursday morning for superficial debridement of ulceration and application of graft. Discussed potential risks, benefit complications, alternatives, and post- operative protocol with patient. No garuntees were either given not implied. Pt verbalizes understanding and wishes to proceed with procedures. Medical clearance- pending. Cardiac clearance- pending. Aspirin 81 mg -held NPO diet ordered for Thursday evening Podiatry will continue to follow while in house - Date & Time Date: 11/07/17 Time: 10:55 <Dougie Forte - Last Filed: 11/07/17 11:06> Meds - Medications Medications: Current Medications Acetaminophen (Tylenol 325mg Tab) 650 mg PO Q6H PRN; Protocol PRN Reason: Pain, Mild (1-3) Amlodipine Besylate (Norvasc) 10 mg PO DAILY [facility] PRN Reason: Protocol Last Admin: 11/07/17 10:19 Dose: 10 mg Aspirin (Ecotrin) 81 mg PO 0800 [facility] PRN Reason: Protocol Last Admin: 11/07/17 07:59 Dose: 81 mg Clonidine HCl (Catapres) 0.2 mg PO TID [facility] PRN Reason: Protocol Last Admin: 11/07/17 10:17 Dose: Not Given Docusate Sodium (Colace) 100 mg PO TID [facility] PRN Reason: Protocol Last Admin: 11/07/17 09:41 Dose: 100 mg Labetalol HCl (Trandate) 300 mg PO TID [facility] PRN Reason: Protocol Last Admin: 11/07/17 09:43 Dose: 300 mg Levalbuterol HCl (Xopenex) 1.25 mg IH TIDRESP [facility] Last Admin: 11/07/17 08:55 Dose: 1.25 mg Levetiracetam (Keppra) 500 mg PO BID [facility] PRN Reason: Protocol Last Admin: 11/07/17 09:43 Dose: 500 mg Levothyroxine Sodium (Synthroid) 75 mcg PO 0600 [facility] PRN Reason: Protocol Last Admin: 11/07/17 05:24 Dose: 75 mcg Lisinopril (Zestril) 40 mg PO HS [facility] PRN Reason: Protocol Lorazepam (Ativan) 2 mg IVP Q6H PRN; Protocol PRN Reason: Anxiety Morphine Sulfate (Morphine) 2 mg IVP Q4H PRN; Protocol PRN Reason: Pain, severe (8-10) Last Admin: 11/07/17 05:26 Dose: 2 mg Ondansetron HCl (Zofran Inj) 4 mg IVP Q6H PRN; Protocol PRN Reason: Nausea/Vomiting Last Admin: 11/07/17 09:48 Dose: 4 mg Oxycodone/Acetaminophen (Percocet 5/325 Mg Tab) 1 tab PO Q6H PRN; Protocol PRN Reason: Pain, moderate (4-7) Stop: 11/09/17 16:12 Pantoprazole Sodium (Protonix Ec Tab) 40 mg PO 0600 [facility] PRN Reason: Protocol Last Admin: 11/07/17 05:24 Dose: 40 mg Polyethylene Glycol (Miralax) 17 gm PO BID [facility] PRN Reason: Protocol Last Admin: 11/07/17 09:42 Dose: 17 gm Sevelamer HCl (Renagel) 1,600 mg PO 0800,1200,1800 [facility] PRN Reason: Protocol Last Admin: 11/07/17 07:59 Dose: 1,600 mg Sildenafil Citrate (Revatio) 20 mg PO DAILY [facility] PRN Reason: Protocol Last Admin: 11/07/17 09:42 Dose: 20 mg Results - Vital Signs Recent Vital Signs: Last Vital Signs Temp 97.4 F L 11/07/17 10:17 Pulse 68 11/07/17 10:17 Resp 20 11/07/17 10:17 BP 198/72 H 03/03/18 10:19 Pulse Ox 100 11/07/17 10:17 Attending/Attestation - Attestation I have personally seen and examined this patient.: Yes I have fully participated in the care of the patient.: Yes I have reviewed all pertinent clinical information: Yes
--- NOTE | 2017-11-07 14:06 | PN ---
DATE: 11/07/2017 SUBJECTIVE: The patient is seen lying in bed. She is awake. She is alert. She complains of headache. She complains of nausea and vomiting. She complains of shaking of her right hand earlier. She reports that this shaking was involuntary and it woke her up. Also, she reports that her blood pressure has been high since last night. PHYSICAL EXAMINATION: GENERAL: Middle-aged lady, lying in bed. VITAL SIGNS: Blood pressure 198/72, heart rate 68, respiratory rate 20, and temperature 97.4. HEENT: Normocephalic, atraumatic. NECK: Supple, no JVD. LUNGS: Bilateral equal air entry, no rales. EXTREMITIES: No lower extremity edema. LABORATORY DATA: No new labs. CURRENT MEDICATIONS: Ativan 2 mg IV push q.6 p.r.n., Catapres 0.2 t.i.d., Colace, Ecotrin, Keppra 500 b.i.d., MiraLax, morphine, amlodipine 10, Percocet, Protonix, Renagel 1600, Revatio, Synthroid, labetalol 300 t.i.d., lisinopril 40, Zofran. ASSESSMENT: 1. Hypertensive encephalopathy. 2. Status post hypertensive seizures. 3. Recent cerebrovascular accident. 4. Diffuse atherosclerotic disease. 5. Severe hypertension. 6. End-stage renal disease. 7. Gastroparesis. 8. Chronic obstructive pulmonary disease. 9. Pulmonary hypertension. PLAN: 1. Continue current medications, as per the med records, but she did not receive couple of her antihypertensives this morning. We will talk to the nursing staff. 2. Continue Zofran for nausea and vomiting. 3. Continue antiseizure medications. 4. Next dialysis will be today. Tamanna Smith MD
--- NOTE | 2017-11-08 00:11 | HP ---
DATE OF EXAM: HISTORY OF PRESENT ILLNESS: The patient is 57 years old. She had seizure at home. Son who resides with her called ambulance and she was brought to Emergency Room. In the ER, she had seizure again and was given IV Ativan loaded with Keppra. She was found to have very high blood pressure of 222, was given labetalol drip. Blood pressure improved. Patient has difficulty walking and deconditioning. She was transferred to TCU for rehab. PAST MEDICAL HISTORY: She has significant past medical history for: 1. Hypertension. 2. End-stage renal disease, on hemodialysis. 3. Chronic anemia. 4. COPD. 5. Pulmonary hypertension. 6. Peptic ulcer disease. 7. Right carotid endarterectomy. 8. 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 ALLERGIES: SHE IS ALLERGIC TO CIPRO, HYDRALAZINE, VANCOMYCIN AND IV CONTRAST DYE. MEDICATIONS: At home, she is on clonidine, amlodipine, Revatio, lisinopril, levothyroxine, labetalol, famotidine, docusate and Plavix 75 mg daily. SOCIAL HISTORY: She was a smoker up until last year. PHYSICAL EXAMINATION: GENERAL: She is awake, alert, oriented, communicative. VITAL SIGNS: She is afebrile, pulse 60, respirations 20, blood pressure 198/72. LUNGS: Bilateral fair airflow. No rhonchi or crackle. HEART: S1, S2 audible. ABDOMEN: Soft, nontender. No rebound. No guarding. NEUROLOGIC: Patient is awake, alert and oriented, able to communicate. Has difficulty walking, generalized weakness. ASSESSMENT: 1. Uncontrolled hypertension. 2. Hypertensive encephalopathy. 3. End-stage renal disease, on hemodialysis. 4. Chronic anemia. 5. Peripheral vascular disease. PLAN: Patient will resume all her medications. She will be followed by and Dr. Smith. Follow up with the patient in the a.m. Brittany Coffman MD
[2017-11-08] MEDS: Pantoprazole 40 mg EC Tab PO SCH (05:26)
[2017-11-08] MEDS: Levothyroxine 75 MCG TAB PO SCH (05:26)
[2017-11-08] MEDS: Levalbuterol 1.25 MG/3 ML Inhal Soln UD IH SCH ×3 (08:40→20:31)
[2017-11-08] MEDS: POLYETHYLENE GLYCOL 3350 17 GM/Dose PACKET PO SCH ×2 (12:30→18:41)
[2017-11-08] MEDS: Morphine 2 mg/ml ISec IVP PRN ×2 (12:36→21:53)
[2017-11-08] MEDS: Sildenafil 20 MG TAB PO SCH (13:06)
--- NOTE | 2017-11-08 15:44 | CP.PCM.PN ---
Subjective - Date & Time of Evaluation Date of Evaluation: 11/08/17 Time of Evaluation: 14:50 - Subjective Subjective: Podiatry Progress Note- Dr. Blanton 57 y.o female seen and evaluated at bedside for right leg ulceration. Patient is seen resting comfortably in bed, in NAD, and AA0x3. Patient reports the same pain to the ulceration site that is well controlled by medications. Patient denies n/v/sob/cp/chills or f. Patient has no new complaints. Objective - Vital Signs/Intake and Output Vital Signs (last 24 hours): Temp Pulse Resp BP Pulse Ox 98.2 F 66 20 174/64 H 100 11/07/17 17:24 11/08/17 15:03 11/07/17 17:24 11/08/17 15:03 11/07/17 17:24 - Medications Medications: Current Medications Acetaminophen (Tylenol 325mg Tab) 650 mg PO Q6H PRN; Protocol PRN Reason: Pain, Mild (1-3) Amlodipine Besylate (Norvasc) 10 mg PO DAILY [facility]ANA PRN Reason: Protocol Last Admin: 11/08/17 12:31 Dose: 10 mg Aspirin (Ecotrin) 81 mg PO 0800 [facility] PRN Reason: Protocol Last Admin: 11/07/17 07:59 Dose: 81 mg Clonidine HCl (Catapres) 0.2 mg PO TID [facility]ANA PRN Reason: Protocol Last Admin: 11/08/17 15:03 Dose: 0.2 mg Docusate Sodium (Colace) 100 mg PO TID [facility]ANA PRN Reason: Protocol Last Admin: 11/08/17 15:06 Dose: 100 mg Labetalol HCl (Trandate) 300 mg PO TID ZANA PRN Reason: Protocol Last Admin: 11/08/17 13:08 Dose: 300 mg Levalbuterol HCl (Xopenex) 1.25 mg IH TIDRESP [facility] Last Admin: 11/08/17 13:57 Dose: 1.25 mg Levetiracetam (Keppra) 500 mg PO BID ZANA PRN Reason: Protocol Last Admin: 11/08/17 12:30 Dose: 500 mg Levothyroxine Sodium (Synthroid) 75 mcg PO 0600 [facility] PRN Reason: Protocol Last Admin: 11/08/17 05:26 Dose: 75 mcg Lisinopril (Zestril) 40 mg PO HS ZANA PRN Reason: Protocol Last Admin: 11/07/17 21:54 Dose: 40 mg Lorazepam (Ativan) 2 mg IVP Q6H PRN; Protocol PRN Reason: Anxiety Morphine Sulfate (Morphine) 2 mg IVP Q4H PRN; Protocol PRN Reason: Pain, severe (8-10) Last Admin: 11/08/17 12:36 Dose: 2 mg Ondansetron HCl (Zofran Inj) 4 mg IVP Q6H PRN; Protocol PRN Reason: Nausea/Vomiting Last Admin: 11/07/17 20:27 Dose: 4 mg Oxycodone/Acetaminophen (Percocet 5/325 Mg Tab) 1 tab PO Q6H PRN; Protocol PRN Reason: Pain, moderate (4-7) Stop: 11/09/17 16:12 Pantoprazole Sodium (Protonix Ec Tab) 40 mg PO 0600 [facility] PRN Reason: Protocol Last Admin: 11/08/17 05:26 Dose: 40 mg Polyethylene Glycol (Miralax) 17 gm PO BID ZANA PRN Reason: Protocol Last Admin: 11/08/17 12:30 Dose: Not Given Sevelamer HCl (Renagel) 1,600 mg PO 0800,1200,1800 [facility] PRN Reason: Protocol Last Admin: 11/08/17 13:05 Dose: 1,600 mg Sildenafil Citrate (Revatio) 20 mg PO DAILY [facility] PRN Reason: Protocol Last Admin: 11/08/17 13:06 Dose: 20 mg - Constitutional Appears: Well, Non-toxic, No Acute Distress - Extremities Exam Additional comments: Vasc: DP/PT pulses palpable 2/4 B/L. Skin temperature warm to warm from proximal to distal. CFT < 3 seconds to all digits B/L. No pedal edema noted. 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 Base is fibrogranular, mostly granular, with periwound erythema. No malodor, no purulence, no tunneling, tracking, undermining, probe to bone or fluctuance. No maceration, xerosis, abnormal pigmentation or abnormal growths noted to b/l LE. Neuro: Epicritic and protective sensation grossly intact B/L. Ortho: Severe pain on palpation right leg ulceration. 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 Forte Vitals, chart, and labs reviewed- afebrile, WBC=5.1 Right leg ulcer cleansed with sterile saline and dressed with Optifoam - stable , will continue to monitor Multipodus boots ordered - to be worn at all times in bed Patient will go to the OR Thursday morning for superficial debridement of ulceration and application of graft. Discussed potential risks, benefit complications, alternatives, and post- operative protocol with patient. No garuntees were either given not implied. Pt verbalizes understanding and wishes to proceed with procedures. Aspirin 81 mg -held NPO diet ordered for Thursday evening Podiatry will continue to follow while in house
--- NOTE | 2017-11-08 20:18 | PN ---
DATE: 11/08/2017 SUBJECTIVE: Patient is seen lying in bed. She reports a headache. She complains of dizziness. She complains of nausea. She complains of retching. She complains of involuntary movements of her right hand earlier today also. PHYSICAL EXAMINATION: GENERAL: Middle-aged lady, lying in bed. VITAL SIGNS: Blood pressure 174/64, heart rate 66, respiratory rate 18, temperature 98. HEENT: Normocephalic, atraumatic. NECK: Supple, no JVD. LUNGS: Bilateral equal air entry, no rales. CARDIAC: S1 and S2. Regular rate and rhythm. No murmur, no rub. ABDOMEN: Soft, nondistended, nontender, bowel sounds present. EXTREMITIES: No lower extremity edema. LABORATORY DATA: No labs available. MEDICATIONS: List reviewed. ASSESSMENT: 1. Severe hypertension. 2. Status post hypertensive emergency/hypertensive seizures/hypertensive encephalopathy. 3. Hypertensive heart disease. 4. Peripheral arterial disease. 5. Diffuse atherosclerotic disease. 6. End-stage renal disease. 7. Anemia. PLAN: 1. Continue antiseizure medications. 2. Neurology followup needed. 3. Podiatry followup. 4. Patient is scheduled for debridement of her right lower extremity wound tomorrow. 5. Next dialysis on Thursday. 6. Continue antihypertensives. Tamanna Smith MD
[2017-11-09] MEDS: Morphine 2 mg/ml ISec IVP PRN ×4 (04:33→22:53)
[2017-11-09] MEDS: Pantoprazole 40 mg EC Tab PO SCH (05:20)
[2017-11-09] MEDS: Levothyroxine 75 MCG TAB PO SCH ×2 (05:20→08:14)
[2017-11-09] MEDS: Levalbuterol 1.25 MG/3 ML Inhal Soln UD IH SCH ×3 (07:46→21:39)
--- NOTE | 2017-11-09 09:26 | CON ---
DATE: 11/06/2017 REASON FOR CONSULTATION: Hyperphosphatemia, hypertension. HISTORY OF PRESENTING ILLNESS: A 57-year-old lady known to me from outpatient evaluation and multiple hospital evaluations. Patient was initially admitted to the ICU. She presented with hypertensive seizures, hypertensive encephalopathy, CVA. Patient was treated with IV antihypertensives. She is currently on antiseizure therapy. She has now been transferred to the Transitional Care Unit for physical therapy. Today, she feels good. She denies any headaches, chest tightness. She denies any palpitations. She denies any nausea or vomiting. PAST MEDICAL AND SURGICAL HISTORY: Severe hypertension, hypertensive emergencies, hypertensive encephalopathy, hypertensive heart disease, COPD, ESRD, peripheral vascular disease, nonhealing ulcers of her lower extremities. FAMILY HISTORY: Hypertension. SOCIAL HISTORY: Ex-smoker, no alcohol use, no IV drug abuse. ALLERGIES: CIPROFLOXACIN, HYDRALAZINE, VANCOMYCIN. CURRENT MEDICATIONS: Catapres 0.2 t.i.d., Colace, aspirin, heparin, Keppra, MiraLax 17 g b.i.d., morphine 2 mg IV q. 4, amlodipine 10, Percocet, Plavix 75, Protonix 40, Renagel 1600 three times a day, Revatio, Synthroid, Trandate 400 t.i.d., Tylenol, lisinopril 40, Zofran. REVIEW OF SYSTEMS: As mentioned above in the history of presenting illness, rest unremarkable. PHYSICAL EXAMINATION: GENERAL: Elderly lady, lying in bed in the Transitional Care Unit, in no acute distress. VITAL SIGNS: Blood pressure 142/74, heart rate 67, respiratory rate 18, temperature 98.5. HEENT: Normocephalic, atraumatic. NECK: Supple, no JVD. LUNGS: Bilateral equal air entry, no rales. CARDIAC: S1 and S2. Regular rate and rhythm. No murmur, no rub. ABDOMEN: Soft, nondistended, nontender, bowel sounds present. EXTREMITIES: No lower extremity edema, dressing of the right lower leg. LABORATORY DATA: WBC 5, hemoglobin 9, hematocrit 31, platelets 192. Sodium 140, potassium 4.4, chloride 100, CO2 31, BUN 22, creatinine 3.5, glucose 86, calcium 9.9, phosphorus 7.0, magnesium 2.2, albumin 3.2. ASSESSMENT AND PLAN: 1. Hyperphosphatemia, continue Renagel 600 mg three times a day with meals. 2. Hypertension, fair control at this time, continue current management. 3. Anemia of chronic kidney disease, continue to monitor hemoglobin and continue Aranesp on dialysis. 4. Chronic obstructive pulmonary disease, continue respiratory treatments. 5. Physical therapy. 6. Patient is scheduled for wound debridement next week. Tamanna Smith MD
[2017-11-09] MEDS: POLYETHYLENE GLYCOL 3350 17 GM/Dose PACKET PO SCH ×2 (10:17→18:52)
[2017-11-09] MEDS: Sildenafil 20 MG TAB PO SCH (10:21)
--- NOTE | 2017-11-09 10:40 | PN ---
DATE: SUBJECTIVE: Patient is a 57-year-old, seen and examined, doing well, complained of leg pain. No nausea noted today. PHYSICAL EXAMINATION: VITAL SIGNS: She is afebrile, pulse 66, respiration 18, blood pressure 174/64. LUNGS: Bilateral good airflow. No rhonchi or crackle. HEART: S1, S2 audible. ABDOMEN: Soft, nontender. No rebound, no guarding. NEUROLOGIC: She is awake, alert, oriented, able to communicate. ASSESSMENT: 1. Uncontrolled hypertension. 2. Status post hypertensive encephalopathy. 3. Seizure disorder. 4. End-stage renal disease, on hemodialysis. 5. Chronic anemia. 6. Peptic ulcer disease. 7. Gastroparesis. 8. Peripheral vascular disease, status post angioplasty. 9. 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 PLAN: Will be taken to OR tomorrow for debridement. Continue current medications. Encourage physical therapy after procedure. Brittany Coffman MD
--- NOTE | 2017-11-09 15:45 | CP.PCM.PN ---
Subjective - Date & Time of Evaluation Date of Evaluation: 11/09/17 Time of Evaluation: 14:00 - Subjective Subjective: Podiatry Progress Note-Dr. Blanton 57 y.o female seen at bedside for right painful chronic leg ulceration secondary to calciphylaxis. Patient is seen resting comfortably in bed, in NAD, and AA0x3. Family members are seen at bedside during visitation. Patient understands that she is going to the OR today. She denies n/sob/cp/chills or f. She reports that she ate a piece of gummy bear 30 minutes ago. She reports nothing to drink. She reports nothing to eat since breakfast besides the piece of gummy bear. Objective - Vital Signs/Intake and Output Vital Signs (last 24 hours): Temp Pulse Resp BP Pulse Ox 98.2 F 67 20 139/63 100 11/07/17 17:24 11/09/17 15:34 11/07/17 17:24 11/09/17 15:34 11/07/17 17:24 - Medications Medications: Current Medications Acetaminophen (Tylenol 325mg Tab) 650 mg PO Q6H PRN; Protocol PRN Reason: Pain, Mild (1-3) Amlodipine Besylate (Norvasc) 10 mg PO DAILY [facility] PRN Reason: Protocol Last Admin: 11/09/17 10:17 Dose: 10 mg Aspirin (Ecotrin) 81 mg PO 0800 [facility] PRN Reason: Protocol Last Admin: 11/07/17 07:59 Dose: 81 mg Clonidine HCl (Catapres) 0.2 mg PO TID [facility] PRN Reason: Protocol Last Admin: 11/09/17 14:39 Dose: 0.2 mg Docusate Sodium (Colace) 100 mg PO TID [facility] PRN Reason: Protocol Last Admin: 11/09/17 15:33 Dose: Not Given Labetalol HCl (Trandate) 300 mg PO TID [facility] PRN Reason: Protocol Last Admin: 11/09/17 15:34 Dose: 300 mg Levalbuterol HCl (Xopenex) 1.25 mg IH TIDRESP [facility] Last Admin: 11/09/17 13:33 Dose: 1.25 mg Levetiracetam (Keppra) 500 mg PO BID [facility] PRN Reason: Protocol Last Admin: 11/09/17 10:17 Dose: 500 mg Levothyroxine Sodium (Synthroid) 75 mcg PO 0600 [facility] PRN Reason: Protocol Last Admin: 11/09/17 08:14 Dose: 75 mcg Lisinopril (Zestril) 40 mg PO HS [facility] PRN Reason: Protocol Last Admin: 11/08/17 21:51 Dose: 40 mg Lorazepam (Ativan) 2 mg IVP Q6H PRN; Protocol PRN Reason: Anxiety Morphine Sulfate (Morphine) 2 mg IVP Q4H PRN; Protocol PRN Reason: Pain, severe (8-10) Last Admin: 11/09/17 10:01 Dose: 2 mg Ondansetron HCl (Zofran Inj) 4 mg IVP Q6H PRN; Protocol PRN Reason: Nausea/Vomiting Last Admin: 11/09/17 08:20 Dose: 4 mg Oxycodone/Acetaminophen (Percocet 5/325 Mg Tab) 1 tab PO Q6H PRN; Protocol PRN Reason: Pain, moderate (4-7) Stop: 11/09/17 16:12 Pantoprazole Sodium (Protonix Ec Tab) 40 mg PO 0600 [facility] PRN Reason: Protocol Last Admin: 11/09/17 05:20 Dose: Not Given Polyethylene Glycol (Miralax) 17 gm PO BID [facility] PRN Reason: Protocol Last Admin: 11/09/17 10:17 Dose: Not Given Sevelamer HCl (Renagel) 1,600 mg PO 0800,1200,1800 [facility] PRN Reason: Protocol Last Admin: 11/09/17 12:18 Dose: Not Given Sildenafil Citrate (Revatio) 20 mg PO DAILY [facility] PRN Reason: Protocol Last Admin: 11/09/17 10:21 Dose: 20 mg - Constitutional Appears: Well, Non-toxic, No Acute Distress - Extremities Exam Extremities Exam: absent: Calf Tenderness Additional comments: Dressing to the LE is c/d/i - Neurological Exam Neurological Exam: Alert, Awake, Oriented x3 - Psychiatric Exam Psychiatric exam: Normal Affect, Normal Mood Assessment and Plan - Assessment and Plan (Free Text) Assessment: 57 year old female patient PMHx ESRD on HD, HTN, CHF, peptic ulcer disease, chronic anemia with non-healing right leg ulceration secondary to calciphylaxis for the OR this AM for debridement of right painful leg ulceration and application of Apligraft Plan: Pt was seen and examined at bedside Patient ate piece of gummy bear. Spoke to anesthesia and reports okay to proceed with surgery All Pre-op testing and clearance was in the chart Pt has exhausted all conservative treatment at this time and is opting for surgical intervention Pt was explained procedure and post-operative course All pt's questions were answered to satisfaction No guarantees were made Pt understands all risks, benefits and complications of procedure Pt will follow-up with
[2017-11-09] MEDS ORDERED: Propofol 10 mg/ml Inj (20 ML) ONE (16:22)
[2017-11-09] MEDS ORDERED: Oxycodone/Acetaminophen 5/325 mg Tab PO PRN ×2 (16:39)
--- NOTE | 2017-11-09 16:44 | PCM.SURG1 ---
Surgeon's Initial Post Op Note - Surgeon's Notes Surgeon: Dr. Blanton DPM Pedicab Driver: Dr. Torres DPM PGY-1 Type of Anesthesia: IV Sedation, Local Anesthesia Administered By: Dr. Massiel PAUL Pre-Operative Diagnosis: right painful chronic leg ulceration secondary to calciphalyxis Operative Findings: see dictation; intraoperative: 5cc of 2% lidocaine plain; materals: apligraft Post-Operative Diagnosis: same Operation Performed: debridement of right painful leg ulceration with application of graft Specimen/Specimens Removed: none Estimated Blood Loss: EBL {In ML}: 0 Blood Products Given: N/A Drains Used: No Drains Post-Op Condition: Good Date of Surgery/Procedure: 11/09/17 Time of Surgery/Procedure: 04:30
[2017-11-09] MEDS ORDERED: Midazolam 2 MG/2 ML VIAL ONE (17:18)
--- NOTE | 2017-11-09 21:15 | PN ---
DATE: 11/09/2017 SUBJECTIVE: Patient is seen lying in bed. She seems to be resting comfortably. PHYSICAL EXAMINATION: VITAL SIGNS: Blood pressure 114/93, heart rate 71, respiratory rate 18, temperature 98.4. HEENT: Normocephalic, atraumatic. NECK: Supple, no JVD. LUNGS: Bilateral equal air entry, no rales. CARDIAC: S1 and S2, regular rate rhythm. No murmur, no rub. ABDOMEN: Soft, distended, nontender, bowel sounds present. EXTREMITIES: No lower extremity edema. LABORATORY DATA: No new labs. MEDICATIONS: List reviewed. ASSESSMENT: 1. Severe hypertension. 2. Status post hypertensive emergency. 3. Status post hypertensive seizures/hypertensive encephalopathy/cerebrovascular accident. 4. Labile blood pressure. 5. End-stage renal disease. 6. Peripheral vascular disease. 7. Atherosclerotic disease. 8. Chronic obstructive pulmonary disease. 9. Pulmonary hypertension. PLAN: 1. Today, blood pressure is great, blood pressure was severely elevated yesterday and the day before. 2. Continue antiseizure medications. 3. Next dialysis tomorrow. Tamanna Smith MD
--- NOTE | 2017-11-09 22:23 | PN ---
DATE: SUBJECTIVE: Patient is 57-year-old, seen and examined, doing well. No nausea or vomiting. No diarrhea. PHYSICAL EXAMINATION: VITAL SIGNS: Patient is afebrile, pulse 71, respirations 18, blood pressure 140/93. LUNGS: Bilateral good airflow. No rhonchi or crackle. HEART: S1 and S2 audible. ABDOMEN: Soft, nontender. No rebound, no guarding. NEUROLOGIC: She is awake, alert, oriented, able to communicate. SKIN: The bilateral leg abscess almost healed. Patient is scheduled for debridement of her calciphylaxis lesions. ASSESSMENT: 1. Uncontrolled hypertension. 2. Status post hypertensive encephalopathy. 3. Hypertension. 4. Hyperlipidemia. 5. Peptic ulcer disease. 6. Pulmonary hypertension. 7. Deconditioning and difficulty walking. PLAN: We will continue patient on current medications. She is ok to go to OR for the procedure. We will follow up. Brittany Coffman MD
[2017-11-10] MEDS: Pantoprazole 40 mg EC Tab PO SCH (06:04)
[2017-11-10] MEDS: Levothyroxine 75 MCG TAB PO SCH (06:04)
[2017-11-10] MEDS: Morphine 2 mg/ml ISec IVP PRN ×3 (06:12→19:49)
[2017-11-10] MEDS: Levalbuterol 1.25 MG/3 ML Inhal Soln UD IH SCH ×3 (07:42→20:07)
[2017-11-10 10:30] LABS: BASO # 0.02 K/mm3 (0.0-2.0); BASO % 0.3 % (0.0-3.0); EOS # 0.3 (0.0-0.7); EOS % 4.7 % (1.5-5.0); GRAN # 4.71 (1.4-6.5); GRAN % 69.2 % (50.0-68.0); HEMOGLOBIN 8.8 g/dL (12.0-16.0); LYMPH # 1.3 (1.2-3.4); LYMPH % 19.2 % (22.0-35.0); MEAN CELL VOLUME 96.2 fl (80.0-105.0); MEAN CORPUSCULAR HEMOGLOBIN 28.2 pg (25.0-35.0); MEAN CORPUSCULAR HGB CONC 29.3 g/dl (31.0-37.0); MEAN PLATELET VOLUME 11.1 fl (7.0-11.0); MONO # 0.5 (0.1-0.6); MONO % 6.6 % (1.0-6.0); RBC 3.12 10^6/uL (3.5-6.1); RED CELL DISTRIBUTION WIDTH 16.5 % (11.5-14.5); WHITE BLOOD COUNT 6.8 10^3/ul (4.5-11.0)
[2017-11-10 10:48] LABS: ALB/GLOB RATIO 1.5 (1.1-1.8); ALBUMIN 3.3 g/dL (3.0-4.8); CALCIUM 10.1 mg/dL (8.4-10.5); MAGNESIUM 2.6 mg/dL (1.7-2.2)
[2017-11-10] MEDS: POLYETHYLENE GLYCOL 3350 17 GM/Dose PACKET PO SCH ×2 (14:06→18:01)
[2017-11-10] MEDS: Sildenafil 20 MG TAB PO SCH (14:08)
--- NOTE | 2017-11-10 17:08 | CP.PCM.PN ---
<Addison Torres - Last Filed: 11/10/17 17:08> Subjective - Date & Time of Evaluation Date of Evaluation: 11/10/17 Time of Evaluation: 17:08 - Subjective Subjective: Podiatry Progress Note- Dr. Forte 57 y.o female seen and evaluated 1 day s/p of debridment of right leg ulceration and application of apligraft. Patient is seen resting comfortably in bed, in NAD, and AAoX3. Patient denies acute overnight events. Denies n/v/sob/cp /chills or f. Patient reports she is feeling well. Pt is concern with her toenails and describes sore on the right foot lateral aspect. Objective - Vital Signs/Intake and Output Vital Signs (last 24 hours): Temp Pulse Resp BP Pulse Ox 98.4 F 88 18 188/76 H 100 11/09/17 17:43 11/10/17 14:09 11/09/17 17:43 11/10/17 14:09 11/09/17 17:43 - Medications Medications: Current Medications Acetaminophen (Tylenol 325mg Tab) 650 mg PO Q6H PRN; Protocol PRN Reason: Pain, Mild (1-3) Amlodipine Besylate (Norvasc) 10 mg PO DAILY ZANA PRN Reason: Protocol Last Admin: 11/10/17 14:08 Dose: 10 mg Aspirin (Ecotrin) 81 mg PO 0800 ZANA PRN Reason: Protocol Last Admin: 11/10/17 08:03 Dose: 81 mg Clonidine HCl (Catapres) 0.2 mg PO TID ZANA PRN Reason: Protocol Last Admin: 11/10/17 14:07 Dose: 0.2 mg Docusate Sodium (Colace) 100 mg PO TID ZANA PRN Reason: Protocol Last Admin: 11/10/17 14:07 Dose: 100 mg Labetalol HCl (Trandate) 300 mg PO TID ZANA PRN Reason: Protocol Last Admin: 11/10/17 14:23 Dose: Not Given Levalbuterol HCl (Xopenex) 1.25 mg [facility] Last Admin: 11/10/17 13:47 Dose: 1.25 mg Levetiracetam (Keppra) 500 mg PO BID ZANA PRN Reason: Protocol Last Admin: 11/10/17 14:06 Dose: 500 mg Levothyroxine Sodium (Synthroid) 75 mcg PO 0600 ZANA PRN Reason: Protocol Last Admin: 11/10/17 06:04 Dose: 75 mcg Lisinopril (Zestril) 40 mg PO HS ZANA PRN Reason: Protocol Last Admin: 11/09/17 22:54 Dose: 40 mg Lorazepam (Ativan) 2 mg IVP Q6H PRN; Protocol PRN Reason: Anxiety Morphine Sulfate (Morphine) 2 mg IVP Q4H PRN; Protocol PRN Reason: Pain, severe (8-10) Last Admin: 11/10/17 14:08 Dose: 2 mg Ondansetron HCl (Zofran Inj) 4 mg IVP Q6H PRN; Protocol PRN Reason: Nausea/Vomiting Last Admin: 11/10/17 08:04 Dose: 4 mg Oxycodone/Acetaminophen (Percocet 5/325 Mg Tab) 1 tab PO Q4H PRN PRN Reason: Pain, moderate (4-7) Stop: 11/12/17 16:40 Oxycodone/Acetaminophen (Percocet 5/325 Mg Tab) 2 tab PO Q4H PRN PRN Reason: Pain, severe (8-10) Stop: 11/12/17 16:40 Pantoprazole Sodium (Protonix Ec Tab) 40 mg PO 0600 ZANA PRN Reason: Protocol Last Admin: 11/10/17 06:04 Dose: 40 mg Polyethylene Glycol (Miralax) 17 gm PO BID ZANA PRN Reason: Protocol Last Admin: 11/10/17 14:06 Dose: 17 gm Sevelamer HCl (Renagel) 1,600 mg PO 0800,1200,1800 ZANA PRN Reason: Protocol Last Admin: 11/10/17 14:09 Dose: 1,600 mg Sildenafil Citrate (Revatio) 20 mg PO DAILY ZANA PRN Reason: Protocol Last Admin: 11/10/17 14:08 Dose: 20 mg - Labs Labs: 11/10/17 10:20 11/10/17 10:20 - Constitutional Appears: Well, Non-toxic, No Acute Distress - Extremities Exam Extremities Exam: absent: Calf Tenderness Additional comments: Dressing is clean, dry, intact. No strikethrough or drainage noted to ulceration. Superficial dressing was changed Vasc: DP/PT pulses palpable 2/4 B/L. Skin temperature warm to warm from proximal to distal. CFT < 3 seconds to all digits B/L. No pedal edema noted. 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 No malodor, no purulence, no tunneling, tracking, undermining, probe to bone or fluctuance. No maceration, xerosis, abnormal pigmentation or abnormal growths noted to b/l LE. Neuro: Epicritic and protective sensation grossly intact B/L. Ortho: Severe pain on palpation right leg ulceration. - Psychiatric Exam Psychiatric exam: Normal Affect, Normal Mood Assessment and Plan - Assessment and Plan (Free Text) Assessment: 57 y.o female seen and evaluated 1 day s/p of debridment of right leg ulceration and application of apligraft. Plan: Patient seen and evaluated Discussed plan with attending Dr. Forte Vitals, labs, chart reviewed- afebrile and absent leukocyosis Superficial, secondary dressing removed while graft and foam dressing remains intact. Dressed with kerlix and secure with tape Patient explained the importance of having multipodus boots on at all times while in bed Patient's pain on the right lateral foot is secondary to pressure. Patient told she can develop an ulceration to the right foot if she continues to remove the multipodus boots Podiatry will continue to follow while in house Patient to follow up with Dr. Blanton in wound care center in 1 week after discharge <Dougie Forte - Last Filed: 11/12/17 07:42> Objective - Vital Signs/Intake and Output Vital Signs (last 24 hours): Temp Pulse Resp BP Pulse Ox 98.7 F 81 18 114/57 L 100 11/11/17 10:00 11/11/17 14:35 11/11/17 10:00 11/11/17 14:35 11/10/17 16:00 - Labs Labs: 11/10/17 10:20 11/10/17 10:20 Attending/Attestation - Attestation I have personally seen and examined this patient.: Yes I have fully participated in the care of the patient.: Yes I have reviewed all pertinent clinical information, including history, physical exam and plan: Yes
[2017-11-10 17:43] VITALS: O2SAT 100
--- NOTE | 2017-11-10 21:55 | PN ---
DATE: SUBJECTIVE: Patient had an uneventful dialysis today. Currently, patient is eating dinner in the TCU. Her blood pressure control at present is within normal limits. Patient has remained seizure free. She states that she had a skin graft to her right lower leg in the area of the poorly healing ulcer. MEDICATIONS: Medication list reviewed. Patient is currently on Ativan, clonidine, Colace, Ecotrin, Keppra, MiraLax, p.r.n. morphine, Norvasc, Percocet, Protonix, Renagel, Revatio, Synthroid, Trandate, Tylenol, Xopenex, Zestril, and Zofran. OBJECTIVE: VITAL SIGNS: Blood pressure presently 123/52, temperature 98.8, respiratory rate is 20 with a pulse of 90. HEENT: Shows her to be normocephalic, atraumatic. Conjunctivae are pale. Sclerae are nonicteric. NECK: Supple. No neck vein distention. CHEST: Clear to auscultation and percussion with no rales, rhonchi or wheezing. CARDIOVASCULAR: Shows a normal S1, S2. MR/TR/AI. ABDOMEN: Soft. Bowel sounds normal. No rebound or guarding or masses. BACK: No CVAT. No spinal tenderness. EXTREMITIES: Show dressing over her right lower leg covering an area where she had an ulcer and is now status post a skin graft. She has a clotted AV fistula site, right upper extremity. She has a right chest wall PermCath and a PICC line in her left chest wall. LABORATORY DATA AND IMAGING: CBC, white blood cell count 6.8, hemoglobin 8.8. Platelet count is 205,000. Chemistries showed a sodium of 136; potassium of 6.6 today, non-hemolyzed; chloride 95; CO2 28; BUN 74. The creatinine of 6.4. Calcium 10.1, phosphorus 5.7 with a magnesium level of 2.6. Albumin is 3.3. ASSESSMENT: 1. Status post hypertensive urgency, hypertensive encephalopathy and seizures. This all appears to have stabilized. Blood pressure medications were adjusted to try and achieve better blood pressure control, which has been very difficult to obtain in this patient. 2. History of end-stage renal disease. Patient will continue on Thursday, , Thursday dialysis. 3. History of left ventricular hypertrophy, mild valvular heart disease, atherosclerotic heart disease, status post percutaneous transluminal coronary angioplasty stents, history of an myocardial infarction. All appear to be stable. No congestive heart failure at present. 4. History of chronic obstructive pulmonary disease in a patient with a long history of cigarette smoking. 5. History of peripheral vascular disease status post revascularization of her lower extremity with a poorly healing right leg ulcer. She is status post a skin graft with foreskin to the area. This is being followed by a her surgeon. 6. History of secondary hyperparathyroidism. Patient will continue taking binder therapy. She will continue renal diet. 7. History of hypothyroidism. Patient to continue thyroid replacement therapy. 8. History of mild glucose intolerance. Glucose levels are acceptable. PLAN: 1. Continue routine dialysis. 2. Continue blood pressure medication with close monitoring of her blood pressure readings and continued titration and adjustment of her blood pressure meds. 3. Continue renal diet with binder therapy. 4. Continue to challenge her dry weight to lower her blood pressure. 5. Continue close followup of her right lower extremity skin graft being followed by Surgery. Sampson Hutchins MD
[2017-11-11] MEDS: Morphine 2 mg/ml ISec IVP PRN ×2 (02:23→08:13)
[2017-11-11] MEDS: Pantoprazole 40 mg EC Tab PO SCH (05:58)
[2017-11-11] MEDS: Levothyroxine 75 MCG TAB PO SCH (05:58)
[2017-11-11] MEDS: Levalbuterol 1.25 MG/3 ML Inhal Soln UD IH SCH ×2 (07:18→13:07)
--- NOTE | 2017-11-11 09:02 | PN ---
DATE: 11/10/2017 SUBJECTIVE: Patient is 57 years old, seen and examined. Complains of pain in the leg. Otherwise, she feels nauseous, threw up one time. OBJECTIVE: VITAL SIGNS: She is afebrile, pulse 67, respirations 18, blood pressure 140/93. LUNGS: Bilateral fair airflow. No rhonchi or crackle. HEART: S1 and S2 audible. ABDOMEN: Soft, nontender. No rebound, no guarding. NEUROLOGIC: Patient is awake, alert, oriented, communicative. LABORATORY DATA: WBC is 6.8, hemoglobin 8.8, hematocrit 30, and platelets 205. ASSESSMENT: 1. End-stage renal disease, on hemodialysis. 2. Status post hypertensive encephalopathy. 3. Hypertension. 4. Hyperlipidemia. 5. Peptic ulcer disease. 6. Pulmonary hypertension. 7 . Right francis ulcer, seems to be healing, status post debridement of calciphylaxis lesions. 8. Seizure disorder. PLAN: Continue current medication. Local wound care. Analgesic as needed. Follow up patient in a.m. Brittany Coffman MD
[2017-11-11] MEDS: POLYETHYLENE GLYCOL 3350 17 GM/Dose PACKET PO SCH (10:13)
[2017-11-11] MEDS: Sildenafil 20 MG TAB PO SCH (10:14)
[2017-11-11] MEDS ORDERED: Alum-Mag Hydrox-Simethicone Susp (30 mL) PO ONE (11:07)
[2017-11-11] MEDS ORDERED: Apap-Butalbital-Caffeine 325-50-40mg Tab PO STA (11:08)
--- NOTE | 2017-11-11 11:58 | CP.PCM.PN ---
Subjective - Date & Time of Evaluation Date of Evaluation: 11/11/17 Time of Evaluation: 11:00 - Subjective Subjective: Podiatry Progress Note- Dr. Blanton 57 y.o female seen and evaluated 2 days s/p of debridment of right leg ulceration and application of apligraft. Patient is seen resting comfortably in bed, in NAD, and AAoX3. Patient denies acute overnight events. Denies n/v/sob/cp /chills or f. Patient reports she is feeling well. Pt is concern with her toenails and describes sore on the right foot lateral aspect. Objective - Vital Signs/Intake and Output Vital Signs (last 24 hours): Temp Pulse Resp BP Pulse Ox 98.8 F 76 20 155/63 H 100 11/10/17 16:00 11/11/17 10:14 11/10/17 16:00 11/11/17 10:14 11/10/17 16:00 - Medications Medications: Current Medications Acetaminophen (Tylenol 325mg Tab) 650 mg PO Q6H PRN; Protocol PRN Reason: Pain, Mild (1-3) Acetaminophen (Tylenol 325mg Tab) 650 mg PO Q6H PRN; Protocol PRN Reason: Headache Amlodipine Besylate (Norvasc) 10 mg PO DAILY ZANA PRN Reason: Protocol Last Admin: 11/11/17 10:13 Dose: 10 mg Aspirin (Ecotrin) 81 mg PO 0800 ZANA PRN Reason: Protocol Last Admin: 11/11/17 08:09 Dose: 81 mg Clonidine HCl (Catapres) 0.2 mg PO TID ZANA PRN Reason: Protocol Last Admin: 11/11/17 10:12 Dose: Not Given Docusate Sodium (Colace) 100 mg PO TID ZANA PRN Reason: Protocol Last Admin: 11/11/17 10:12 Dose: 100 mg Labetalol HCl (Trandate) 300 mg PO TID ZANA PRN Reason: Protocol Last Admin: 11/11/17 10:14 Dose: 300 mg Levalbuterol HCl (Xopenex) 1.25 mg [facility] Last Admin: 11/11/17 07:18 Dose: 1.25 mg Levetiracetam (Keppra) 500 mg PO BID ZANA PRN Reason: Protocol Last Admin: 11/11/17 10:13 Dose: 500 mg Levothyroxine Sodium (Synthroid) 75 mcg PO 0600 ZANA PRN Reason: Protocol Last Admin: 11/11/17 05:58 Dose: 75 mcg Lisinopril (Zestril) 40 mg PO HS ZANA PRN Reason: Protocol Last Admin: 11/10/17 22:41 Dose: Not Given Lorazepam (Ativan) 2 mg IVP Q6H PRN; Protocol PRN Reason: Anxiety Morphine Sulfate (Morphine) 2 mg IVP Q4H PRN; Protocol PRN Reason: Pain, severe (8-10) Last Admin: 11/11/17 08:13 Dose: 2 mg Ondansetron HCl (Zofran Inj) 4 mg IVP Q6H PRN; Protocol PRN Reason: Nausea/Vomiting Last Admin: 11/11/17 08:11 Dose: 4 mg Oxycodone/Acetaminophen (Percocet 5/325 Mg Tab) 1 tab PO Q4H PRN PRN Reason: Pain, moderate (4-7) Stop: 11/12/17 16:40 Oxycodone/Acetaminophen (Percocet 5/325 Mg Tab) 2 tab PO Q4H PRN PRN Reason: Pain, severe (8-10) Stop: 11/12/17 16:40 Pantoprazole Sodium (Protonix Ec Tab) 40 mg PO 0600 ZANA PRN Reason: Protocol Last Admin: 11/11/17 05:58 Dose: 40 mg Polyethylene Glycol (Miralax) 17 gm PO BID ZANA PRN Reason: Protocol Last Admin: 11/11/17 10:13 Dose: 17 gm Sevelamer HCl (Renagel) 1,600 mg PO 0800,1200,1800 ZANA PRN Reason: Protocol Last Admin: 11/11/17 08:09 Dose: 1,600 mg Sildenafil Citrate (Revatio) 20 mg PO DAILY ZANA PRN Reason: Protocol Last Admin: 11/11/17 10:14 Dose: 20 mg - Labs Labs: 11/10/17 10:20 11/10/17 10:20 - Constitutional Appears: Well, Non-toxic, No Acute Distress - Extremities Exam Extremities Exam: absent: Calf Tenderness Additional comments: Dressing c/d/i without strikethrough Temperature gradient WNL CFT WNL Assessment and Plan - Assessment and Plan (Free Text) Assessment: Podiatry Progress Note- Dr. Forte 57 y.o female seen and evaluated days s/p of debridment of right leg ulceration and application of apligraft. Plan: Patient seen and evaluated Discussed plan with attending Dr. Blanton Vitals, labs, chart reviewed- afebrile and absent leukocyosis Dressing c/d/i Patient explained the importance of having multipodus boots on at all times while in bed Patient's pain on the right lateral foot is secondary to pressure. Patient told she can develop an ulceration to the right foot if she continues to remove the multipodus boots Will bring nail nippers tomorrow to debride nails prior to discharge Podiatry will continue to follow while in house Patient to follow up with Dr. Blanton in wound care center in 1 week after discharge
[2017-11-11 12:13] VITALS: RESP 18; TEMP 98.7
--- NOTE | 2017-11-11 12:44 | PN ---
DATE: 11/11/2017 SUBJECTIVE: The patient is seen, she is lying in bed in the Transitional Care Unit. She is awake. She is alert. She complains of headache. She complains of nausea. She did not eat her breakfast. Her blood pressure was 190 this morning. PHYSICAL EXAMINATION: GENERAL: Middle-aged lady, sitting in bed. VITAL SIGNS: Blood pressure 123/52, heart rate 90, respiratory rate 20, temperature 98.8. HEENT: Normocephalic, atraumatic, positive pallor. NECK: Supple, no JVD. LUNGS: Bilateral equal air entry, bilateral equal expansion. EXTREMITIES: No lower extremity edema. LABORATORY DATA: No new labs. CURRENT MEDICATIONS: List reviewed. ASSESSMENT: 1. Hypertension, better controlled today. 2. Status post hypertensive seizure/hypertensive encephalopathy/cerebrovascular accident. 3. End-stage renal disease, status post dialysis yesterday. 4. Gastroparesis, chronic nausea. 5. Chronic obstructive pulmonary disease. 6. Pulmonary hypertension. PLAN: 1. Continue current antihypertensives. 2. Continue Zofran for nausea. 3. Push p.o. intake as tolerated. 4. Dialysis tomorrow. Tamanna Smith MD
[2017-11-11 14:38] VITALS: BP 114/57; PULSE 81
--- NOTE | 2017-11-12 08:56 | PN ---
DATE: 11/11/2017 SUBJECTIVE: The patient is 57 years old, seen and examined, lying in bed. Complaining of feeling nauseous, just was given Zofran. Also, complaining of pain in her both feet dressing done. PHYSICAL EXAMINATION VITAL SIGNS: She is afebrile. Pulse 90, respirations 20, blood pressure 123/53. LUNGS: Bilateral good air flow. No rhonchi or crackles HEART: S1 and S2 audible. ABDOMEN: Soft, nontender. No rebound, no guarding. EXTREMITIES: She is awake and alert, has generalized weakness, difficulty walking. Right foot is in the dressing ASSESSMENT 1. Status post hypertensive encephalopathy. 2. Status post syndrome. 3. Hypertension. 4. End-stage renal disease, on hemodialysis. 5. Chronic anemia. 6. Pulmonary hypertension. 7. Bilateral leg secondary to calciphylaxis, status post debridement. 8. Gastritis. 9. Coronary artery disease, status post angioplasty. 10. Right carotid stenosis, status post angioplasty. 11. Seizure disorder, currently stable on Keppra. PLAN: Currently, she is on lisinopril. She is getting Xopenex. She is on labetalol 300 mg three times a day. She is on levothyroxine, Percocet as needed, amlodipine 10 mg daily. She is on Keppra 500 mg twice a day, we will continue that and she is on clonidine 0.2 mg t.i.d. and that seems to be controlling her blood pressure. Encourage ambulation, out of bed to chair. Brittany Coffman MD
== END 2017-11-11 16:04 | DRG 945 ==
LOC: TRCU 14:41
PROVIDERS: ADMIT Internal Medicine; ATTEND Internal Medicine
PROC: F07L6ZZ Therapeutic Exercise Treatment of Musculoskeletal System - Lower Back / Lower Extremity (ICD-10-PCS; principal; 2017-11-07)
PROC: 5A1D70Z Performance of Urinary Filtration, Intermittent, Less than 6 Hours Per Day (ICD-10-PCS; 2017-11-07)
PROC: F07Z9FZ Gait Training/Functional Ambulation Treatment using Assistive, Adaptive, Supportive or Protective Equipment (ICD-10-PCS; 2017-11-08)
PROC: F08Z2FZ Grooming/Personal Hygiene Treatment using Assistive, Adaptive, Supportive or Protective Equipment (ICD-10-PCS; 2017-11-10)
PROC: F08Z1FZ Dressing Techniques Treatment using Assistive, Adaptive, Supportive or Protective Equipment (ICD-10-PCS; 2017-11-10)
DX: R53.1 Weakness (principal); R26.2 Difficulty in walking, not elsewhere classified; N18.6 End stage renal disease; I13.2 Hypertensive heart and chronic kidney disease with heart failure and with stage 5 chronic kidney disease, or end stage renal disease; I67.4 Hypertensive encephalopathy; I16.1 Hypertensive emergency; L97.819 Non-pressure chronic ulcer of other part of right lower leg with unspecified severity; N25.81 Secondary hyperparathyroidism of renal origin; E83.59 Other disorders of calcium metabolism; E83.39 Other disorders of phosphorus metabolism; I27.20 Pulmonary hypertension, unspecified; K31.84 Gastroparesis; I73.9 Peripheral vascular disease, unspecified; J44.9 Chronic obstructive pulmonary disease, unspecified; I50.9 Heart failure, unspecified; D63.1 Anemia in chronic kidney disease; G40.909 Epilepsy, unspecified, not intractable, without status epilepticus; E78.00 Pure hypercholesterolemia, unspecified; E03.9 Hypothyroidism, unspecified; K27.9 Peptic ulcer, site unspecified, unspecified as acute or chronic, without hemorrhage or perforation; Z99.2 Dependence on renal dialysis; Z87.891 Personal history of nicotine dependence; I25.2 Old myocardial infarction; Z86.73 Personal history of transient ischemic attack (TIA), and cerebral infarction without residual deficits; Z98.61 Coronary angioplasty status

== ENCOUNTER 2017-11-09 13:30 | Day surgery (SDC) | payer MEDICARE ==
[2017-11-09] MEDS ORDERED: Lidocaine 2% Inj (20ml) ONE (15:55)
[2017-11-09 17:09] VITALS: RESP 20
[2017-11-09 17:32] VITALS: PULSE 71; TEMP 98.8; O2SAT 100
[2017-11-09 18:17] VITALS: BP 116/52
--- NOTE | 2017-11-10 08:16 | OP ---
PROCEDURE DATE: 11/09/2017 SURGEON: Wendy Blanton DPM. CABLE TELEVISION ACCESS COORDINATOR: Fazal Torres DPM, PGY-1. ANESTHESIOLOGIST: Dr. Rankin. TYPE OF ANESTHESIA: IV sedation with local. 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 NAME OF PROCEDURE: Debridement of right painful leg ulceration with application of graft. INDICATIONS: This patient is a 57-year-old female with the above diagnosis. The patient has exhausted all conservative treatment at this time, and now requires surgical intervention. The patient signed the consent after careful explanation of risks, benefits, complications, and alternatives of the surgical procedure. No guarantees were given nor implied. N.p.o. status was confirmed prior to taking the patient to the OR. PREPARATION: The patient was brought in to the operating room and remained A timeout was performed for identification of the correct patient and procedure. After the induction of IV sedation, the patient received a total of 5 mL of 2% lidocaine plain in a local block fashion to the right ankle around the wound. The right lower extremity was then draped and prepped in a normal sterile manner as the procedure began. No tourniquet was used during the entire procedure. DESCRIPTION OF PROCEDURE: Attention was directed to the medial aspect of the right leg where an approximately 4.1 cm x 2.8 cm x 0.1 cm ulcer was noted. The base is fibro-granular with periwound intact. Utilizing a dermal curette, the ulcer was debrided until fresh, healthy bleeding tissue was noted. The ulceration was flushed with copious amount of saline solution. Then the Apligraf was carefully placed over the entire ulceration and dressed with a foam dressing, 4 x 4 gauze, ABD and Kerlix. POSTOPERATIVE CONDITION: The patient tolerated the anesthesia and the procedure well and was escorted to the recovery room with vital signs stable, neurovascular status intact to the right lower extremity. The patient is to remain full weight bearing as tolerated. Podiatry will continue to follow the patient while the patient is in-house. Addison Torres DPM Wendy Blanton DPM [email or web address]
== END 2017-11-09 18:15 ==
LOC: SDS 13:30
PROVIDERS: ATTEND Podiatrist
DX: L97.919 Non-pressure chronic ulcer of unspecified part of right lower leg with unspecified severity (principal); E83.59 Other disorders of calcium metabolism
CPT/HCPCS: 15271; J7120; Q4131

== ENCOUNTER 2017-11-18 10:29 | Inpatient (IN) | payer MEDICARE, OTHER ==
[2017-11-18] MEDS ORDERED: Nitroglycerin 50mg in D5W 50 MG/250 ML BOTTLE IV PRN (10:42)
[2017-11-18 10:43] VITALS: BMI 19.1
[2017-11-18] MEDS ORDERED: Labetalol 5 mg/ml Inj 20ML IV STA (10:46)
--- NOTE | 2017-11-18 10:50 | ED PDOC ---
Arrival/HPI - General Chief Complaint: Chest Pain Time Seen by Provider: 11/18/17 10:36 Historian: Patient, EMS - History of Present Illness Narrative History of Present Illness (Text): 11/18/17 10:48 pt p/w ~ 1 day onset of persistent chest pain/substernal, non-radiating, at most pain is 8-9/10; pt states with the chest pain, + lightheadedness/dizziness , no LOC, + sob, + profuse sweating; + nausea/vomiting, vomiting x 4-5 episodes since last night; + weakness; pt states no fever/chills, no palpitations, no abd pain, no urinary/bowel changes; pt had received her dialysis yesterday; pt arrived to ED for further eval; pt's without other complaints. Pt receives her dialysis Tue/Th/Sat PCP: Meghna cards: [place] Time/Duration: 24 hours Symptom Onset: Sudden Symptom Course: Unchanged, Worsening Quality: Pressure, Tightness, Cramping Severity Level: 8, Severe Activities at Onset: Rest Context: Home Past Medical History - Provider Review Nursing Documentation Reviewed: Yes - Travel History Have you recently traveled outside [place] w/in the past 3 mons?: No - Past History Past History: No Previous - Infectious Disease Hx of Infectious Diseases: None - Tetanus Immunization Tetanus Immunization: Unknown - Cardiac Hx Pacemaker: No - Pulmonary Hx Respiratory Disorders: Yes (USED TO SMOKE 4 CIG A DAY.) Hx Chronic Obstructive Pulmonary Disease (COPD): Yes Hx Pneumonia: Yes Hx Sleep Apnea: Yes - Neurological Hx Paralysis: No - HEENT Hx HEENT Disorder: Yes (hard of hearing,RIGHT EAR DEAF) Hx Blind: No Hx Cataracts: No Hx Deafness: No Hx Difficulty Chewing: No Hx Epistaxis: No Hx Glaucoma: No Hx Macular Degeneration: No Other/Comment: tinnitus, - Renal Hx Renal Failure: Yes - Endocrine/Metabolic Hx Hypothyroidism: Yes - Hematological/Oncological Hx Blood Transfusions: Yes - Integumentary Hx Dermatological Disorder: No (non healing sugical wound to right ankle) Other/Comment: r ankle wound,non healing surgical wound cared for by dr parada at wound center, wound 5.5 X 3.5 cm ,right buttocks red and open to air, SCARRED AREA.multiple skin discolorations to ble,EDEMA +1.Left thumb area with a 0.7 scabbed wound from rubbing to wheelchair. - Musculoskeletal/Rheumatological Hx Musculoskeletal Disorders: Yes - Gastrointestinal Hx Gastrointestinal Disorders: Yes (POOR APPETITE,DIVERTICULITIS,GASTROENTERITIS ,GASTRITIS) - Genitourinary/Gynecological Hx Genitourinary Disorders: Yes (ANURIC) - Psychiatric Hx Emotional Abuse: No Hx Physical Abuse: No Hx Substance Use: No - Past Surgical History Past Surgical History: Unable to Obtain - Surgical History Hx Mastectomy: No - Anesthesia Hx Anesthesia Reactions: No Hx Malignant Hyperthermia: No - Suicidal Assessment Feels Threatened In Home Enviroment: No Family/Social History - Physician Review Nursing Documentation Reviewed: Yes Family/Social History: No Known Family HX Smoking Status: Former Smoker Hx Alcohol Use: No Hx Substance Use: No Hx Substance Use Treatment: No Allergies/Home Meds Allergies/Adverse Reactions: Allergies ciprofloxacin Allergy (Verified 11/18/17 10:41) RASH hydralazine Allergy (Verified 11/18/17 10:41) RASH vomiting vancomycin Allergy (Verified 11/18/17 10:41) SHORTNESS OF BREATH palpitations ct dye Allergy (Uncoded 11/18/17 10:41) RASH Home Medications: Home Meds Medication Instructions Recorded Confirmed Lisinopril [Zestril] 40 mg PO DAILY 10/05/17 11/18/17 Sildenafil [Revatio] 20 mg PO DAILY 10/05/17 11/18/17 Clopidogrel [Plavix] 1 tab PO DAILY 11/18/17 11/18/17 Docusate [Colace] 1 cap PO TID 11/18/17 11/18/17 Famotidine [Pepcid] 1 tab PO DAILY 11/18/17 11/18/17 NIFEdipine ER [Procardia XL] 1 tab PO DAILY 11/18/17 11/18/17 Oxycodone HCl/Acetaminophen 1 tab PO QID PRN 11/18/17 11/18/17 [Endocet 10-325 mg Tablet] Review of Systems - Review of Systems Constitutional: Fatigue Eyes: Normal ENT: Normal Respiratory: SOB Cardiovascular: Chest Pain. absent: Palpitations Gastrointestinal: Nausea, Vomiting. absent: Abdominal Pain Genitourinary Female: Normal Musculoskeletal: Normal Skin: Normal Neurological: Dizziness Endocrine: Diaphoresis Hemo/Lymphatic: Normal Psychiatric: Normal Physical Exam Vital Signs Reviewed: Yes Vital Signs Temp Pulse Pulse Resp BP Pulse Ox 11/18/17 12:21 80 17 205/97 H 100 11/18/17 11:51 76 18 204/91 H 100 11/18/17 10:59 98 H 255/116 H 11/18/17 10:57 98 H 255/116 H 11/18/17 10:50 89 11/18/17 10:37 99 F 98 H 18 210/140 H 98 Temperature: Afebrile Blood Pressure: Hypertensive Pulse: Regular Respiratory Rate: Normal Appearance: Positive for: Well-Appearing, Uncomfortable, Other (resting in bed, alert/awake, GCS = 15, oriented x 3, uncomfortable, mild distress due to pain) Pain Distress: Mild Mental Status: Positive for: Alert and Oriented X 3 - Systems Exam Head: Present: Atraumatic, Normocephalic Pupils: Present: PERRL, Other (no nystagmus, no photophobia, sclera anicteric, visual field intact b/l) Extroacular Muscles: Present: EOMI Conjunctiva: Present: Normal Ears: Present: Normal Mouth: Present: Other (fair dentitions, mild dry oral mucosa, no drooling/ stridor, uvula/tongue are midline, no euxdate/lesions) Pharnyx: Present: Normal Nose (External): Present: Atraumatic Nose (Internal): Present: Normal Inspection Neck: Present: Normal Range of Motion, Trachea Midline. No: MIDLINE TENDERNESS Respiratory/Chest: Present: Clear to Auscultation, Good Air Exchange, Other (no accessory muscle use noted, no tachypenia, no w/r/r) Cardiovascular: Present: Regular Rate and Rhythm, Normal S1, S2, Other (+ 1-2/6 systolic murmur) Abdomen: Present: Normal Bowel Sounds, Other (thin female, no focal tenderness, no fernández's sign, no mcburney's point tenderness, no masses/rebound/guarding/ rigidity) Back: Present: Normal Inspection, Other (no gross deformities, neurovasc intact b/l). No: CVA Tenderness, Midline Tenderness Upper Extremity: Present: Normal Inspection, Normal ROM, NORMAL PULSES, Neurovascularly Intact, Capillary Refill < 2s Lower Extremity: Present: Normal Inspection, NORMAL PULSES, Normal ROM, Neurovascularly Intact, Capillary Refill < 2 s Neurological: Present: GCS=15, CN II-XII Intact, Speech Normal Skin: Present: Warm, Other (cap refill ~ 1 sec, no ulcerations, no petechiae, mild pallor) Psychiatric: Present: Alert, Oriented x 3 Medical Decision Making ED Course and Treatment: 11/18/17 10:48 Impression: chest pain i have consider all the differential diagnosis regarding pt's chief medical complaints/clinical findings, including but are not limited to: chest pain, r/o acs; elevated BP A/P: chest pain, r/o acs; elevated BP - labs - iv - xray - acs eval - observe - supportive care 11/18/17 10:[address] Ontiveros, pt's cardiologists; given the abnl EKG, no gross ekg changes noted compare with recent EKG, NO CODE HEART is activated at the moment ; Dr Ontiveros agrees; DR ontiveros would like BP to be lowered 11/18/2017 11:26 Chest X-ray IMPRESSION: No active disease. Dictator: Akhil Vargas MD 11/18/[address] Coffman is contacted, made aware, agrees with ED mgt/txt, and agrees with admission Dr Nino, die engraver contacted, made aware, would like to switch to Cardene and will see patient, likely will accept pt to ICU 11/18/17 12:09 pt states her chest pain is improving, currently at 4-5/10 pt is made aware of her medical results agrees with admission Re-evaluation Time: 12:07 Reassessment Condition: Improving,but remains with symptoms - Critical Care Critical Care Minutes: 60 minutes Critical Care Time: Excluding Proc Time Narrative Critical Care (Text): 11/18/17 12:07 critical care time: 60min, excluding procedure time, excluding time teaching residents/students/mid-level providers; including initial eval/diagnosis, diagnostic interpretation, re-eval, consultations, final disposition - Lab Interpretations Lab Results: 11/18/17 10:50 11/18/17 10:50 Lab Results 11/18/17 10:50: Sodium 142, Potassium 5.1 H, Chloride 99, Carbon Dioxide 30, Anion Gap 19, BUN 36 H, Creatinine 3.8 H, Est GFR ( Amer) 15, Est GFR ( Non-Af Amer) 12, Random Glucose 93, Calcium 10.3, Magnesium 2.4 H, Total Bilirubin 0.4, AST 27, ALT 26, Alkaline Phosphatase 140 H D, Lactate Dehydrogenase 576, Total Creatine Kinase 34 L, Troponin I 0.06 D, NT-Pro-B Natriuret Pep 660303 H, Total Protein 6.6, Albumin 4.0, Globulin 2.6, Albumin/ Globulin Ratio 1.5 11/18/17 10:50: PT 11.3, INR 0.98, APTT 20.8 L 11/18/17 10:50: WBC 6.0, RBC 3.56, Hgb 10.1 L, Hct 33.7 L, MCV 94.7, MCH 28.4, MCHC 30.0 L, RDW 15.7 H, Plt Count 276, MPV 10.2, Gran % 66.0, Lymph % (Auto) 23.8, [place] % (Auto) 7.2 H, Eos % (Auto) 2.3, Baso % (Auto) 0.7, Gran # 3.96, Lymph # (Auto) 1.4, [place] # (Auto) 0.4, Eos # (Auto) 0.1, Baso # (Auto) 0.04 I have reviewed the lab results: Yes Interpretation: Abnormal lab values (elevated BUN/creat (chronic); mild anemia) - RAD Interpretation Narrative RAD Interpretations (Text): 11/18/17 12:10 HISTORY: chest pain COMPARISON: 11/03/2017 FINDINGS: LUNGS: No active pulmonary disease. PLEURA: No significant pleural effusion identified, no pneumothorax apparent. CARDIOVASCULAR: Mild cardiomegaly OSSEOUS STRUCTURES: No significant abnormalities. VISUALIZED UPPER ABDOMEN: Normal. OTHER FINDINGS: Dialysis catheter. Right-sided vascular stent IMPRESSION: No active disease. Radiology Orders: 11/18/17 10:42 CHEST PORTABLE [RAD] Stat 11/18/17 11:32 PICC Line IR [IR Guided PICC Insertion] [VASCULAR] Stat [employer] Counselor: Radiologist - EKG Interpretation EKG Interpretation (Text): 11/18/17 12:10 NSR at 90 bpm, normal axis, no ectopy, inverted T in leads I, L, II, V5-6, ? elevated ST V1-2, F, voltage criteria LVH; ABNL EKG; unchanged compare with old ekg 10/2017 Interpreted by ED Physician: Yes Type: 12 lead EKG Comparison: Similar to previous EKG - Medication Orders Current Medication Orders: Acetaminophen (Tylenol 325mg Tab) 650 mg PO Q6H PRN PRN Reason: Pain, Mild (1-3) Amlodipine Besylate (Norvasc) 10 mg PO DAILY [facility] Last Admin: 11/18/17 11:44 Dose: Not Given Non-Admin Reason: NPO Clonidine HCl (Catapres) 0.2 mg PO TID [facility] Last Admin: 11/18/17 15:49 Dose: 0.2 mg MAR Pulse and Blood Pressure Document 11/18/17 15:49 [facility] (Rec: 11/18/17 15:49 [facility] [id number] Pulse Pulse Rate (60-90) 98 Blood Pressure Blood Pressure (100/60-150/90) 219/90 Docusate Sodium (Colace) 100 mg PO TID [facility] Last Admin: 11/18/17 15:49 Dose: 100 mg Last Bowel Movement Document 11/18/17 15:49 [facility] (Rec: 11/18/17 15:49 [facility] [id number] Last Bowel Movement Last Bowel Movement 11/17/17 Nitroglycerin/Dextrose (Nitroglycerin 50 Mg/250 Ml D5w) 50 mg in 250 mls @ 1.5 mls/hr IV .Q24H PRN; Protocol; 5 MCG/MIN PRN Reason: Pain, moderate (4-7) Last Titration: 11/18/17 13:30 Dose: 0 mcg/min, 0 mls/hr Titration Intervention Document 11/18/17 13:30 [facility] (Rec: 11/18/17 14:38 MDU [id number]) Titration Intake Titration Intake 0 Container Volume 200 Titration Dosing Titration Dose 0 IV Rate 0 Intake/Decrease Started Cumulative Dose 0 Nicardipine HCl (Cardene Iv Premix) 20 mg in 200 mls @ 50 mls/hr IV .Q4H PRN; Protocol; 5 MG/HR PRN Reason: TITRATE PER MD ORDER Last Admin: 11/18/17 12:22 Dose: 5 mg/hr, 50 mls/hr eMAR Start Stop Document 11/18/17 12:22 [facility] (Rec: 11/18/17 12:23 [facility] [id number]) Intravenous Solution Start Date 11/18/17 Start Time 12:23 MAR Pulse and Blood Pressure Document 11/18/17 12:22 [facility] (Rec: 11/18/17 12:23 [facility] [id number]) Pulse Pulse Rate (60-90) 87 Blood Pressure Blood Pressure (100/60-150/90) 205/97 Titration Intervention Document 11/18/17 12:22 [facility] (Rec: 11/18/17 12:23 [facility] [id number]) Titration Intake Waste Amount 0 Container Volume 200 Titration Dosing Titration Dose 5 IV Rate 50 Intake/Decrease Started Labetalol HCl (Trandate) 300 mg PO TID [facility] Last Admin: 11/18/17 15:53 Dose: 300 mg MAR Pulse and Blood Pressure Document 11/18/17 15:53 [facility] (Rec: 11/18/17 15:53 [facility] [id number] Pulse Pulse Rate (60-90) 100 Blood Pressure Blood Pressure (100/60-150/90) 219/90 Levalbuterol HCl (Xopenex) 1.25 mg IH TIDRESP [facility] Levetiracetam (Keppra) 500 mg PO BID [facility] Last Admin: 11/18/17 11:42 Dose: Not Given Non-Admin Reason: NPO Levothyroxine Sodium (Synthroid) 75 mcg PO 0600 [facility] Lisinopril (Zestril) 40 mg PO DAILY [facility] Last Admin: 11/18/17 11:45 Dose: Not Given Non-Admin Reason: NPO Lorazepam (Ativan) 2 mg IVP Q6H PRN; Protocol PRN Reason: Anxiety Ondansetron HCl (Zofran Inj) 4 mg IVP Q6H PRN PRN Reason: Nausea/Vomiting Pantoprazole Sodium (Protonix Ec Tab) 40 mg PO 0600 [facility] Polyethylene Glycol (Miralax) 17 gm PO BID [facility] Last Admin: 11/18/17 11:44 Dose: Not Given Non-Admin Reason: NPO Sevelamer HCl (Renagel) 1,600 mg PO 0800,1200,1800 [facility] Last Admin: 11/18/17 11:45 Dose: Not Given Non-Admin Reason: NPO Discontinued Medications Aspirin (Aspirin) 325 mg PO STAT STA Stop: 11/18/17 10:43 Last Admin: 11/18/17 10:57 Dose: 325 mg Labetalol HCl (Trandate) 20 mg IV STAT STA Stop: 11/18/17 10:47 Last Admin: 11/18/17 10:59 Dose: 20 mg eMAR Start Stop Document 11/18/17 10:59 [facility] (Rec: 11/18/17 11:00 [facility] [id number]) Intravenous Solution Start Date 11/18/17 Start Time 10:59 End Date 11/18/17 End time 11:03 Total Infusion Time 4 MAR Pulse and Blood Pressure Document 11/18/17 10:59 [facility] (Rec: 11/18/17 11:00 [facility] [id number]) Pulse Pulse Rate (60-90) 98 Blood Pressure Blood Pressure (100/60-150/90) 255/116 Nitroglycerin (Nitrostat Sl Tab) 0.4 mg SL STAT STA Stop: 11/18/17 10:43 Last Admin: 11/18/17 10:35 Dose: 0.4 mg Ondansetron HCl (Zofran Inj) 4 mg IVP STAT STA Stop: 11/18/17 10:47 Last Admin: 11/18/17 11:00 Dose: 4 mg IVP Administration Document 11/18/17 11:00 [facility] (Rec: 11/18/17 11:00 [facility] [id number]) Charges for Administration # of IVP Administrations 1 Disposition/Present on Arrival - Present on Arrival Any Indicators Present on Arrival: No History of DVT/PE: No History of Uncontrolled Diabetes: No Urinary Catheter: No History of Decub. Ulcer: No History Surgical Site Infection Following: None - Disposition Have Diagnosis and Disposition been Completed?: Yes Diagnosis: Hypertensive emergency, Chest pain with moderate risk for cardiac etiology, Shortness of breath, ESRD (end stage renal disease) on dialysis Disposition: HOSPITALIZED Disposition Time: 12:30 Patient Plan: Admission, ICU Condition: FAIR
[2017-11-18 11:02] LABS: BASO # 0.04 K/mm3 (0.0-2.0); BASO % 0.7 % (0.0-3.0); EOS # 0.1 (0.0-0.7); EOS % 2.3 % (1.5-5.0); GRAN # 3.96 (1.4-6.5); HEMOGLOBIN 10.1 g/dL (12.0-16.0); LYMPH # 1.4 (1.2-3.4); LYMPH % 23.8 % (22.0-35.0); MEAN CELL VOLUME 94.7 fl (80.0-105.0); MEAN CORPUSCULAR HEMOGLOBIN 28.4 pg (25.0-35.0); MEAN PLATELET VOLUME 10.2 fl (7.0-11.0); MONO # 0.4 (0.1-0.6); MONO % 7.2 % (1.0-6.0); RBC 3.56 10^6/uL (3.5-6.1); RED CELL DISTRIBUTION WIDTH 15.7 % (11.5-14.5)
[2017-11-18 11:06] LABS: INR 0.98 (0.93-1.08); PARTIAL THROMBOPLASTIN TIME 20.8 Seconds (25.1-36.5); PROTHROMBIN TIME 11.3 SECONDS (9.4-12.5)
[2017-11-18 11:16] LABS: TROPONIN I 0.06 ng/mL
--- NOTE | 2017-11-18 11:28 | RAD ---
HISTORY: chest pain COMPARISON: 11/03/2017 FINDINGS: LUNGS: No active pulmonary disease. PLEURA: No significant pleural effusion identified, no pneumothorax apparent. CARDIOVASCULAR: Mild cardiomegaly OSSEOUS STRUCTURES: No significant abnormalities. VISUALIZED UPPER ABDOMEN: Normal. OTHER FINDINGS: Dialysis catheter. Right-sided vascular stent IMPRESSION: No active disease.
[2017-11-18 11:30] LABS: ALB/GLOB RATIO 1.5 (1.1-1.8); CALCIUM 10.3 mg/dL (8.4-10.5)
[2017-11-18] MEDS: POLYETHYLENE GLYCOL 3350 17 GM/Dose PACKET PO SCH ×2 (11:44→18:44)
[2017-11-18] MEDS: Nicardipine 20 MG/200 ML 20 MG/200 ML BAG IV PRN ×2 (12:22→17:41)
--- NOTE | 2017-11-18 13:09 | CP.PCM.CON ---
History of Present Illness - History of Present Illness History of Present Illness: CRITICAL CARE CONSULT NOTE HPI Patient is 57yo female with PMhx of Seizure disorder, HTN, ESRD on HD TuThSat, PVD, presented with nausea with vomiting. Pt's SBP noted to 290 in the field, brought to the ER, started on nitro drip, with improvement in SBP tpo 190-200. Currently reports to have mild nausea associated with mild chest pain. Denies fever, chills, sob, palpitations, KAUR, dizziness, confusion. No other constitutional symptoms. PMHx as above PSHx as above Allergies NKDA Meds as per EMR ROS as above FHx NC Review of Systems - Review of Systems Review of Systems: as per hpi Past Patient History - Infectious Disease Hx of Infectious Diseases: None - Tetanus Immunizations Tetanus Immunization: Unknown - Past Social History Smoking Status: Former Smoker - CARDIAC Hx Pacemaker: No - PULMONARY Hx Respiratory Disorders: Yes (USED TO SMOKE 4 CIG A DAY.) Hx Chronic Obstructive Pulmonary Disease (COPD): Yes Hx Pneumonia: Yes Hx Sleep Apnea: Yes - NEUROLOGICAL Hx Paralysis: No - HEENT Hx HEENT Problems: Yes (hard of hearing,RIGHT EAR DEAF) Hx Blind: No Hx Cataracts: No Hx Deafness: No Hx Difficulty Chewing: No Hx Epistaxis: No Hx Glaucoma: No Hx Macular Degeneration: No Other/Comment: tinnitus, - RENAL Hx Renal Failure: Yes - ENDOCRINE/METABOLIC Hx Hypothyroidism: Yes - HEMATOLOGICAL/ONCOLOGICAL Hx Blood Transfusions: Yes - INTEGUMENTARY Hx Dermatological Problems: No (non healing sugical wound to right ankle) Other/Comment: r ankle wound,non healing surgical wound cared for by dr parada at wound center, wound 5.5 X 3.5 cm ,right buttocks red and open to air, SCARRED AREA.multiple skin discolorations to ble,EDEMA +1.Left thumb area with a 0.7 scabbed wound from rubbing to wheelchair. - MUSCULOSKELETAL/RHEUMATOLOGICAL Hx Musculoskeletal Disorders: Yes - GASTROINTESTINAL Hx Gastrointestinal Disorders: Yes (POOR APPETITE,DIVERTICULITIS,GASTROENTERITIS ,GASTRITIS) - GENITOURINARY/GYNECOLOGICAL Hx Genitourinary Disorders: Yes (ANURIC) - PSYCHIATRIC Hx Emotional Abuse: No Hx Physical Abuse: No Hx Substance Use: No - SURGICAL HISTORY Hx Mastectomy: No - ANESTHESIA Hx Anesthesia Reactions: No Hx Malignant Hyperthermia: No Meds Allergies/Adverse Reactions: Allergies Allergy/AdvReac Type Severity Reaction Status Date / Time ciprofloxacin Allergy RASH Verified 11/18/17 10:41 hydralazine Allergy RASH Verified 11/18/17 10:41 vancomycin Allergy SHORTNESS Verified 11/18/17 10:[address] dye Allergy RASH Uncoded 11/18/17 10:41 - Medications Medications: Current Medications Acetaminophen (Tylenol 325mg Tab) 650 mg PO Q6H PRN PRN Reason: Pain, Mild (1-3) Amlodipine Besylate (Norvasc) 10 mg PO DAILY [facility] Last Admin: 11/18/17 11:44 Dose: Not Given Clonidine HCl (Catapres) 0.2 mg PO TID [facility] Docusate Sodium (Colace) 100 mg PO TID [facility] Nitroglycerin/Dextrose (Nitroglycerin 50 Mg/250 Ml D5w) 50 mg in 250 mls @ 1.5 mls/hr IV .Q24H PRN; Protocol; 5 MCG/MIN PRN Reason: Pain, moderate (4-7) Last Admin: 11/18/17 10:57 Dose: 1.5 mls/hr Nicardipine HCl (Cardene Iv Premix) 20 mg in 200 mls @ 50 mls/hr IV .Q4H PRN; Protocol; 5 MG/HR PRN Reason: TITRATE PER MD ORDER Last Admin: 11/18/17 12:22 Dose: 5 mg/hr, 50 mls/hr Labetalol HCl (Trandate) 300 mg PO TID [facility] Levalbuterol HCl (Xopenex) 1.25 mg IH TIDRESP [facility] Levetiracetam (Keppra) 500 mg PO BID [facility] Last Admin: 11/18/17 11:42 Dose: Not Given Levothyroxine Sodium (Synthroid) 75 mcg PO 0600 [facility] Lisinopril (Zestril) 40 mg PO DAILY [facility] Last Admin: 11/18/17 11:45 Dose: Not Given Lorazepam (Ativan) 2 mg IVP Q6H PRN; Protocol PRN Reason: Anxiety Ondansetron HCl (Zofran Inj) 4 mg IVP Q6H PRN PRN Reason: Nausea/Vomiting Pantoprazole Sodium (Protonix Ec Tab) 40 mg PO 0600 [facility] Polyethylene Glycol (Miralax) 17 gm PO BID [facility] Last Admin: 11/18/17 11:44 Dose: Not Given Sevelamer HCl (Renagel) 1,600 mg PO 0800,1200,1800 [facility] Last Admin: 11/18/17 11:45 Dose: Not Given Physical Exam - Constitutional Appears: Non-toxic, No Acute Distress - Eye Exam Eye Exam: Normal appearance - ENT Exam ENT Exam: Mucous Membranes Moist - Respiratory Exam Respiratory Exam: Clear to Auscultation Bilateral, NORMAL BREATHING PATTERN - Cardiovascular Exam Cardiovascular Exam: REGULAR RHYTHM, RRR, +S1, +S2 - GI/Abdominal Exam GI & Abdominal Exam: Normal Bowel Sounds, Soft - Extremities Exam Extremities exam: Positive for: normal inspection - Neurological Exam Neurological exam: Alert, Oriented x3 - Psychiatric Exam Psychiatric exam: Anxious - Skin Skin Exam: Normal Color Results - Vital Signs Recent Vital Signs: Last Vital Signs Temp 99 F 11/18/17 10:37 Pulse 80 11/18/17 12:21 Resp 17 11/18/17 12:21 BP 205/97 H 11/18/17 12:21 Pulse Ox 100 11/18/17 12:21 - Labs Result Diagrams: 11/18/17 10:50 11/18/17 10:50 Labs: Laboratory Results - last 24 hr 11/18/17 11/18/17 11/18/17 10:50 10:50 10:50 WBC 6.0 RBC 3.56 Hgb 10.1 L Hct 33.7 L MCV 94.7 MCH 28.4 MCHC 30.0 L RDW 15.7 H Plt Count 276 MPV 10.2 Gran % 66.0 Lymph % (Auto) 23.8 [place] % (Auto) 7.2 H Eos % (Auto) 2.3 Baso % (Auto) 0.7 Gran # 3.96 Lymph # (Auto) 1.4 [place] # (Auto) 0.4 Eos # (Auto) 0.1 Baso # (Auto) 0.04 PT 11.3 INR 0.98 APTT 20.8 L Sodium 142 Potassium 5.1 H Chloride 99 Carbon Dioxide 30 Anion Gap 19 BUN 36 H Creatinine 3.8 H Est GFR ( Amer) 15 Est GFR (Non-Af Amer) 12 Random Glucose 93 Calcium 10.3 Magnesium 2.4 H Total Bilirubin 0.4 AST 27 ALT 26 Alkaline Phosphatase 140 H D Lactate Dehydrogenase 576 Total Creatine Kinase 34 L Troponin I 0.06 D Total Protein 6.6 Albumin 4.0 Globulin 2.6 Albumin/Globulin Ratio 1.5 - Imaging and Cardiology Chest x-ray Status: Image reviewed by me, Report reviewed by me Assessment & Plan - Assessment and Plan (Free Text) Assessment: 57yo female a/w hypertensive emergency HTN Emergency ESRD on HD Seizure Disorder Nausea/Vomiting - currently afebrile, BP ranging 190-200, on nitro dirp, to be switched over to the Cardene drip - reports taking home BP meds, but vomited shortly after - EKG with NSST changes, which is unchanged - no focla neurological deficits, denies KAUR, dizziness Recommend: - supp o2 as needed - Panculture, BCx, UCx, procal - BP control, goal MAP reduction by no more than 25% in the first 24hr - Cardene drip - repeat CE - Cardiology consult - HD as per renal - Geno IV - FS control - GI ppx - DVT ppx - Monitor in MICU
[2017-11-18] MEDS ORDERED: Influenza Vaccine 60 mcg/0.5 mL SYR (4YR UP) IM ONE (16:48)
[2017-11-18] MEDS ORDERED: Pneumococcal 23-Valent Vaccine IM ONE (16:48)
--- NOTE | 2017-11-18 18:43 | CON ---
DATE: 11/18/[address] The patient admitted for Dr. Coffman. REFERRING MD: Brittany Coffman MD. REASON FOR CONSULTATION: To provide dialysis services for a patient admitted with uncontrolled hypertension, chest pain, shortness of breath, nausea, vomiting and diaphoresis. HISTORY OF PRESENT ILLNESS: The patient is a 57-year-old white female, known to me from outpatient dialysis and multiple hospital admissions. The patient was seen by me yesterday on outpatient dialysis. She had an uneventful dialysis. She apparently went home, did okay, woke up in the middle of the night, started having nausea and vomiting. She is complaining of some mild chest discomfort. Shortness of breath, diaphoresis. She attempted to take her blood pressure medication earlier this morning, but was unable to keep it down and she vomited up her medication. She presents to the emergency room with a blood pressure of 255 systolic over 116 diastolic. She was initially given a nitroglycerin infusion. She is currently on Cardene with a blood pressure in the 190 systolic range with diastolics of 105. The patient will be admitted to the ICU for a further management of her hypertension. Previously, the patient was admitted with hypertensive seizures and hypertensive encephalopathy. The patient had her routine dialysis yesterday. The patient has had multiple hospitalizations both at [facility] and at [facility] for similar presentations. The patient states that she is compliant with her blood pressure medication at home. The patient dialyzes 3 times a week. She has end-stage renal disease from hypertensive nephrosclerosis. PAST MEDICAL HISTORY: Significant for end-stage renal disease, on chronic maintenance hemodialysis. History of hypertension, difficult to control. The patient is on multiple blood pressure medications. She could not take all blood pressure medications because of her kidney disease and hyperkalemia. History of LVH with mild valvular heart disease. The patient has MR/TR/AI. History of atherosclerotic heart disease, status post PTCA stents, history of MN in the past. History of CHF in the past. History of COPD. The patient has a long history of cigarette smoking, only recently stopped. History of significant peripheral vascular disease with a poorly healing right leg ulcer, status post a recent skin graft. History of secondary hyperparathyroidism. History of hypothyroidism. History of mild glucose intolerance. MEDICATIONS: Medications at home include that of Renagel, Colace, Keppra, Pepcid, Revatio, Endocet, clonidine, nifedipine, lisinopril, Plavix, Synthroid and Trandate. ALLERGIES: THE PATIENT IS ALLERGIC TO CIPRO, HYDRALAZINE, VANCOMYCIN AND CAT SCAN DYE. MEDICATIONS IN HOSPITAL: Currently include that of Ativan, IV Cardene, Catapres, Colace, Keppra, MiraLax, nitroglycerin infusion which had been discontinued, Norvasc, Protonix, Renagel, Synthroid, Trandate, Tylenol, Xopenex, lisinopril and Zofran. SOCIAL HISTORY: Ex-smoker. No history of alcohol use. No history of substance abuse. FAMILY HISTORY: Positive for hypertension. REVIEW OF SYSTEMS: 10+ systems reviewed with the patient. All negative except for what is noted above. PHYSICAL EXAMINATION: GENERAL: The patient is currently seen in the emergency room, lying on a stretcher, receiving IV Cardene. She appears to be in no acute distress. No recent nausea or vomiting. Presently, no chest pain and no diaphoresis. VITAL SIGNS: Present blood pressure is 191/57. Heart rate is 85, temperature is 99 degrees. Respiratory rate is 18. Pulse ox is 97%. HEENT: Shows her to be normocephalic, atraumatic. Conjunctivae are pale. Sclerae are nonicteric. Pupils equal, reactive to light and accommodation. Extraocular muscles are intact. Posterior pharynx is normal. NECK: Supple. No neck vein distention. No thyromegaly. No lymphadenopathy. No bruits. CHEST: Clear to auscultation and percussion with no rales, rhonchi or wheezing. The patient has a right chest wall PermCath. CARDIOVASCULAR: Shows a normal S1, S2. No S3. No S4. No rub. MR/TR/AI. ABDOMEN: Soft. Bowel sounds normal. No rebound. No guarding or masses. BACK: No CVAT. No spinal tenderness. EXTREMITIES: Show a dressing over her right lower leg area where she had an ulcer and currently has a skin graft. She has a clotted AV fistula, right upper extremity. She has a right chest wall PermCath. No lower extremity cyanosis, clubbing or edema. NEURO: Shows her to be alert, oriented x3 with no gross focal motor or sensory deficits noted. LABORATORY DATA AND IMAGING STUDIES: Admitting chest x-ray shows no acute pulmonary disease. She has a right chest wall PermCath. Seen on chest x-ray. Admitting EKG showed a normal sinus rhythm, LVH with nonspecific ST and T-wave changes, unchanged from past EKGs. Labs: CBC: White blood cell count 6.0, hemoglobin stable at 10.1, platelet count is 276,000. Coags are normal. Chemistry shows sodium of 142, potassium of 5.1. The patient did have dialysis yesterday. BUN 36 with a creatinine of 3.8. CO2 was 30. Glucose is 93. Calcium 10.3 with a magnesium of 2.4. Liver enzymes are normal. Alkaline phosphatase is 140. Total CPK is low at 34. Troponin is 0.06. BNP level is pending. Albumin is 4.0. ASSESSMENT: 1. Uncontrolled hypertension once again. This is complicated by the fact that the patient was unable to take her morning blood pressure medications because of nausea and vomiting. However, the patient has very difficult to control hypertension. She remains on multiple blood pressure medication. She could not take angiotensin-converting enzyme inhibitors or angiotensin receptor blockers because of her tendency toward significant and severe hyperkalemia. The patient is maintained on most other classes of blood pressure medication with unfortunately difficult to control blood pressure. The patient has had hypertensive encephalopathy, seizures from hypertension. Presently, she just has very high elevated blood pressure with chest pain. Chest pain has resolved. There is no evidence for any coronary ischemia best I could tell. In light of her uncontrolled hypertension and difficulty keeping down oral medication, the patient was started on IV blood pressure medication. She is currently on Cardene and will likely be admitted to the Intensive Care Unit. 2. End-stage renal disease. The patient will continue Thursday, , Thursday dialysis. Her next dialysis is scheduled for tomorrow. 3. History of atherosclerotic heart disease, status post percutaneous transluminal coronary angioplasty and stents. History of mild valvular heart disease. History of a myocardial infarction. History of congestive heart failure. These are all appeared to be stable. However, the patient did present with chest pains, so we will continue monitoring her cardiac enzymes. 4. History of chronic obstructive pulmonary disease in a patient with a very long history of cigarette smoking, only recently stopped. 5. History of severe peripheral vascular disease with a poorly healing ulcer of her right leg. She is status post skin graft with foreskin to the area. This is being followed by her surgeon. 6. History of secondary hyperparathyroidism. The patient will continue taking binder therapy. She will continue a renal diet. We will check her phosphorus level with dialysis tomorrow. 7. History of hypothyroidism. The patient will continue thyroid replacement therapy. 8. Past history of mild glucose intolerance with no evidence for diabetes. PLAN: 1. Continue dialysis Thursday, , Thursday. 2. Continue to monitor blood pressures closely. Agree with IV Cardene with transition back to oral medications. Of note, her blood pressure control in the hospital has been significantly better. 3. Continue Surgery followup for her right lower extremity skin graft. 4. Continue all dietary restrictions. 5. Discussed with the patient and her son in detail. 6. Discussed with Dr. Coffman. Thank you for letting me partake and share in the care of our mutual patient. Sampson Hutchins MD
[2017-11-18] MEDS: Levalbuterol 1.25 MG/3 ML Inhal Soln UD IH SCH (20:03)
--- NOTE | 2017-11-19 02:22 | CON ---
DATE: 11/18/2017 TYPE OF DICTATION: Consult Service, Cardiology CONSULTING PHYSICIAN: Pj Ontiveros M.D. REASON FOR THE CONSULTATION: Chest pain, rule out Code STEMI, uncontrolled hypertension, cardiac evaluation. BRIEF CLINICAL HISTORY: This is a 57-year-old female with past medical history significant for coronary artery disease, status post stent in obtuse marginal at [place]; history of end-stage renal disease, on dialysis; severe peripheral arterial disease; seizure disorder; came to the emergency room after having vomiting and uncontrolled hypertension at 255/140. So, a stat consult was called for Code STEMI. According to the ER physician, it appears a Code STEMI. I discussed at length to the ER physician that all these symptoms are secondary to uncontrolled hypertension. The patient becomes very symptomatic when the blood pressure goes above 190, start throwing up. Later on, the ER physician compared the EKG from the previous EKG and canceled the Code STEMI. Currently, the patient is in the ICU. Denies any chest pain. She states that her blood pressure was up, she started throwing up and developed chest pain, although the chest pain has completely gone. Now, the blood pressure is 126/47. PAST MEDICAL HISTORY: Significant for coronary artery disease, status post PTCA after non-STEMI outside the [facility], at [facility] with stenting of OM1; history of COPD; history of diastolic dysfunction; end-stage renal disease, on dialysis; peripheral arterial disease; occluded SFA; hypothyroidism; history of lower extremity femoral bypass; history of carotid artery stenting; history of seizure disorder. PAST SURGICAL HISTORY: Significant for wound debridement, history of PTCA, history of multiple times Port-A-Cath access sites and dialysis catheter was dilated, right carotid artery angioplasty. SOCIAL HISTORY: Denies any history of alcohol abuse. Quit smoking 5 years ago. No history of substance abuse. PREVIOUS CARDIAC WORKUP: As follows; the patient had a Code STEMI in 01/12/2017 and admitted at [facility] where the patient underwent PTCA of obtuse marginal 1, history of right SFA occluded, history of left femoral arterial bypass, history of mesenteric artery angiogram negative for mesenteric artery stenosis, history of carotid artery stenting at [facility] in 10/2016, uncontrolled hypertension, end-stage renal disease, multiple admissions with chest pain, history of recent intracerebral bleed and stabilized and went home. Last echo on 01/11/2017 showed ejection fraction 65%, mild MR, mild TR, mild AR, [id number] PI, RV systolic pressure 21. The patient had a repeat echo at [facility], was told fluid around the heart. So, a repeat echo was done on 08/20/2017 that showed ejection fraction 65% to 70%, normal segmental wall motion, left atrium is mildly dilated in a long axis, [id number] mitral regurgitation, [id number] tricuspid regurgitation. Patient also had a stress test, dated 08/21/2017 that was negative. REVIEW OF SYSTEMS: As per HPI. PHYSICAL EXAMINATION: As follows: VITAL SIGNS: Temperature afebrile, heart rate 76, blood pressure 162/77. HEENT: PERRLA. Intact. NECK: Supple. No carotid bruit or thyromegaly. CHEST: Clear to auscultation. HEART: S1, S2, regular. ABDOMEN: Soft. EXTREMITIES: Clubbing and cyanosis negative. EKG shows normal sinus, LVH is a strain pattern, T inversion in V5, V6 but no acute ST-T changes noted consistent of acute Code STEMI. LABORATORY DATA: Blood workup as follows: WBC 6, hemoglobin 10, hematocrit 33.7, platelet count 276. Chemistry shows sodium 142, potassium 5.1, chloride 90, carbon dioxide 30, anion gap of 19, BUN 36, creatinine 3.8. When compared to the EKG, no significant change from previous EKG. Troponin is 0.06. IMPRESSION: Acute hypertensive emergency, uncontrolled; diabetes; hypertension; hyperlipidemia; end stage renal disease, on dialysis; chest pain, most likely secondary to uncontrolled hypertension; history of coronary artery disease; history of stent in 01/2017; history of recent stress test in August, no significant ischemia. RECOMMENDATIONS: Aggressive control of cholesterol, lipid profile, TSH, hemoglobin A1c. We will follow with you. Thank you, Dr. Coffman, for providing us the opportunity in taking care of the patient, Renetta Thakur. The patient does not appear to be Code STEMI. We will cancel the Code STEMI and treat aggressively medically. Pj Ontiveros MD [facility] # [id number]
[2017-11-19] MEDS: Nicardipine 20 MG/200 ML 20 MG/200 ML BAG IV PRN ×2 (02:29→06:46)
[2017-11-19] MEDS ORDERED: Albuterol-Ipratrop 3 mg / 0.5 (3 ml) UD IH ONE (03:17)
--- NOTE | 2017-11-19 04:16 | HP ---
HISTORY OF PRESENT ILLNESS: Patient is a 57-year-old, who came to the emergency room because of chest pain, pressure. Her blood pressure was found to be 250/110. So she was brought to the emergency room because of nausea, because of headache, and chest discomfort. Patient has had multiple admissions almost every week with similar complaints. Patient does claim that she takes her medications. Denies any weird symptoms. She denies any numbness. She does have generalized weakness. No history of fever or chills. PAST MEDICAL HISTORY: Significant for: 1. End-stage renal disease, on hemodialysis. 2. History of pulmonary hypertension. 3. History of seizure disorder. 4. Hypertensive encephalopathy. Last admission was because of hypertensive encephalopathy. She was seen in the ER, on . 5. History of peptic ulcer disease. 6. Chronic anemia. 7. Hypothyroidism. 8. Status post right carotid angioplasty. ALLERGIES: SHE IS ALLERGIC TO CIPRO, HYDRALAZINE, VANCOMYCIN, CT CONTRAST DYE. MEDICATIONS AT HOME: She is on labetalol 300 three times a day, Keppra 500 twice a day, clonidine 0.2 t.i.d., Revatio 20 mg daily, Renagel 1 tablet 3 times a day, nifedipine 90 mg daily, lisinopril 40 mg daily, levothyroxine 75 daily, Pepcid 20 mg twice a day, Colace 100 mg three times a day, Plavix 75 daily. SOCIAL HISTORY: She used to be a heavy smoker, quit mostly a year ago. Lives with her son. Denies alcohol use. REVIEW OF SYSTEMS: Significant for peripheral vascular disease and right francis healing ulcer. 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 PHYSICAL EXAMINATION: GENERAL: She looks pale, but awake and alert, able to communicate. VITAL SIGNS: She is afebrile. Pulse 104, respirations 24, blood pressure 162/77. LUNGS: Bilateral fair airflow. No rhonchi or crackle. HEART: S1 and S2 audible. ABDOMEN: Soft, nontender. No rebound. No guarding. NEUROLOGIC: The patient is awake and alert, oriented, communicate. LABORATORY DATA: WBC 6, hemoglobin 10, hematocrit 33.7, platelets 276. Chemistry: Sodium 142, potassium 5.1, chloride 99, CO2 of 30, BUN 36, creatinine 3.8. Blood sugar 93. AST 27, ALT 26, alk phos 140. BNP 230,000. ASSESSMENT: 1. Hypertensive emergency. 2. Status post hypertensive encephalopathy on previous admission. 3. Seizure disorder. 4. End-stage renal disease, on hemodialysis. 5. Hypertension. 6. Peripheral vascular disease, status post bypass surgery. 7. Secondary hyperthyroidism. 8. Hypothyroidism. 9. Pulmonary hypertension. PLAN: Patient is currently in ICU for better control of her hypertension. We will resume her usual medications including Keppra. She was given nitroglycerine. She is on amlodipine, Protonix, labetalol, and nebulizer treatment. Cardiology consult by Dr. Ontiveros. Nephrology consult by Dr. Smith has been requested. Brittany Coffman MD
[2017-11-19] MEDS: Levothyroxine 75 MCG TAB PO SCH (05:37)
[2017-11-19] MEDS: Pantoprazole 40 mg EC Tab PO SCH (05:37)
[2017-11-19] MEDS: Levalbuterol 1.25 MG/3 ML Inhal Soln UD IH SCH ×4 (07:02→19:42)
[2017-11-19 07:17] LABS: BASO # 0.04 K/mm3 (0.0-2.0); BASO % 0.9 % (0.0-3.0); EOS # 0.2 (0.0-0.7); EOS % 3.5 % (1.5-5.0); GRAN # 2.85 (1.4-6.5); GRAN % 63.3 % (50.0-68.0); HEMOGLOBIN 9.6 g/dL (12.0-16.0); LYMPH # 1.1 (1.2-3.4); LYMPH % 23.7 % (22.0-35.0); MEAN CELL VOLUME 93.7 fl (80.0-105.0); MEAN CORPUSCULAR HEMOGLOBIN 27.7 pg (25.0-35.0); MEAN CORPUSCULAR HGB CONC 29.5 g/dl (31.0-37.0); MEAN PLATELET VOLUME 10.2 fl (7.0-11.0); MONO # 0.4 (0.1-0.6); MONO % 8.6 % (1.0-6.0); RBC 3.47 10^6/uL (3.5-6.1); RED CELL DISTRIBUTION WIDTH 15.8 % (11.5-14.5); WHITE BLOOD COUNT 4.5 10^3/ul (4.5-11.0)
[2017-11-19 07:29] LABS: ALB/GLOB RATIO 1.5 (1.1-1.8); ALBUMIN 3.6 g/dL (3.0-4.8); CALCIUM 9.9 mg/dL (8.4-10.5)
[2017-11-19 07:38] LABS: TROPONIN I 0.05 ng/mL
[2017-11-19] MEDS: POLYETHYLENE GLYCOL 3350 17 GM/Dose PACKET PO SCH ×2 (09:45→18:21)
[2017-11-19] MEDS ORDERED: HYDROmorphone 0.5 mg/0.5 ml ISec IVP STA (09:46)
[2017-11-19] MEDS: NIFEdipine 90 mg ER Tab PO SCH (09:52)
[2017-11-19] MEDS ORDERED: Sildenafil 20 MG TAB PO SCH (10:00)
--- NOTE | 2017-11-19 10:44 | CP.CCUPN ---
<Venancio Malhotra - Last Filed: 11/19/17 10:40> CCU Subjective - Physician Review Subjective (Free Text): Patient seen and examined at bedside. No acute events overnight. Patient complaining of generalized pain this morning. Denies chest pain, shortness of breath, nausea, vomiting, diarrhea, fever, chills. CCU Objective - Vital Signs / Intake & Output Vital Signs (Last 4 hours): Vital Signs Pulse BP 11/19/17 09:50 88 162/63 H 11/19/17 09:49 164/63 H 11/19/17 09:44 78 162/63 H Intake and Output (Last 8hrs): Intake & Output 11/18/17 11/19/17 11/19/17 22:59 06:59 14:59 Intake Total 200 400 Balance 200 400 Weight 98 lb 1.691 oz Intake: IV 200 400 - Physical Exam Head: Positive for: Atraumatic, Normocephalic Pupils: Positive for: PERRL Extroacular Muscles: Positive for: EOMI Conjunctiva: Positive for: Normal Ears: Positive for: Normal Pharnyx: Positive for: Normal Nose (External): Positive for: Atraumatic Nose (Internal): Positive for: Normal Inspection Respiratory/Chest: Positive for: Clear to Auscultation, Good Air Exchange Cardiovascular: Positive for: Regular Rate and Rhythm, Normal S1, S2 Abdomen: Positive for: Normal Bowel Sounds. Negative for: Tenderness, Distention, Rebound Back: Positive for: Normal Inspection. Negative for: CVA Tenderness, Midline Tenderness Upper Extremity: Positive for: Normal Inspection, Neurovascularly Intact Lower Extremity: Positive for: Normal Inspection, NORMAL PULSES, Normal ROM, Neurovascularly Intact Neurological: Positive for: GCS=15, CN II-XII Intact, Speech Normal Skin: Positive for: Warm Psychiatric: Positive for: Alert, Oriented x 3, Normal Insight, Normal Concentration - Medications Active Medications: Active Medications Generic Name Dose Route Start Last Admin Trade Name Freq PRN Reason Stop Dose Admin Acetaminophen 650 mg 11/18/17 11:02 Tylenol 325mg Tab PO Q6H PRN Pain, Mild (1-3) Amlodipine Besylate 10 mg 11/18/17 11:15 11/19/17 09:49 Norvasc PO 10 mg DAILY ZANA Administration Clonidine HCl 0.2 mg 11/18/17 14:00 11/19/17 09:44 Catapres PO 0.2 mg TID ZANA Administration Docusate Sodium 100 mg 11/18/17 14:00 11/19/17 09:44 Colace PO 100 mg TID ZANA Administration Nicardipine HCl 20 mg in 200 mls @ 50 mls/hr 11/18/17 12:04 11/19/17 06:46 Cardene Iv Premix IV 5 mg/hr .Q4H PRN 50 mls/hr TITRATE PER MD ORDER Administration Protocol 5 MG/HR Labetalol HCl 300 mg 11/18/17 14:00 11/19/17 09:50 Trandate PO 300 mg TID ZANA Administration Levalbuterol HCl 1.25 mg 11/18/17 14:00 11/19/17 07:42 Xopenex IH Not Given TIDRESP ZANA Levetiracetam 500 mg 11/18/17 11:15 11/19/17 09:44 Keppra PO 500 mg BID ZANA Administration Levothyroxine Sodium 75 mcg 11/19/17 06:00 11/19/17 05:37 Synthroid PO 75 mcg 0600 ZANA Administration Lisinopril 40 mg 11/18/17 11:15 11/19/17 09:52 Zestril PO 40 mg DAILY ZANA Administration Lorazepam 2 mg 11/18/17 11:02 Ativan IVP Q6H PRN Anxiety Protocol Nifedipine 90 mg 11/19/17 10:00 11/19/17 09:52 Procardia Xl PO 90 mg DAILY ZANA Administration Ondansetron HCl 4 mg 11/18/17 11:02 Zofran Inj IVP Q6H PRN Nausea/Vomiting Pantoprazole Sodium 40 mg 11/19/17 06:00 11/19/17 05:37 Protonix Ec Tab PO 40 mg 0600 ZANA Administration Polyethylene Glycol 17 gm 11/18/17 11:15 11/19/17 09:45 Miralax PO 17 gm BID ZANA Administration Sevelamer HCl 1,600 mg 11/18/17 12:00 11/19/17 09:44 Renagel PO 1,600 mg 0800,1200,1800 ZANA Administration - Patient Studies Lab Studies: Lab Studies 11/19/17 11/19/17 11/19/17 Range/Units 05:50 05:50 05:50 WBC 4.5 D (4.5-11.0) 10^3/ul RBC 3.47 L (3.5-6.1) 10^6/uL Hgb 9.6 L (12.0-16.0) g/dL Hct 32.5 L (36.0-48.0) % MCV 93.7 (80.0-105.0) fl MCH 27.7 (25.0-35.0) pg MCHC 29.5 L (31.0-37.0) g/dl RDW 15.8 H (11.5-14.5) % Plt Count 258 (120.0-450.0) 10^3/uL MPV 10.2 (7.0-11.0) fl Gran % 63.3 (50.0-68.0) % Lymph % (Auto) 23.7 (22.0-35.0) % [place] % (Auto) 8.6 H (1.0-6.0) % Eos % (Auto) 3.5 (1.5-5.0) % Baso % (Auto) 0.9 (0.0-3.0) % Gran # 2.85 (1.4-6.5) Lymph # (Auto) 1.1 L (1.2-3.4) [place] # (Auto) 0.4 (0.1-0.6) Eos # (Auto) 0.2 (0.0-0.7) Baso # (Auto) 0.04 (0.0-2.0) K/mm3 Sodium 135 (132-148) mmol/L Potassium 5.5 H (3.6-5.0) mmol/L Chloride 97 L (98-107) mmol/L Carbon Dioxide 28 (21-33) mmol/L Anion Gap 16 (10-20) BUN 45 H (7-21) mg/dL Creatinine 5.0 H (0.7-1.2) mg/dl Est GFR ( Amer) 11 Est GFR (Non-Af Amer) 9 Random Glucose 98 (70-110) mg/dL Calcium 9.9 (8.4-10.5) mg/dL Phosphorus 5.9 H (2.5-4.5) mg/dL Magnesium 2.4 H (1.7-2.2) mg/dL Total Bilirubin 0.2 (0.2-1.3) mg/dL AST 23 (14-36) U/L ALT 26 (7-56) U/L Alkaline Phosphatase 115 (38-126) U/L Lactate Dehydrogenase 457 (333-699) U/L Total Creatine Kinase 29 L (35-230) U/L Troponin I 0.05 ng/mL Total Protein 5.9 (5.8-8.3) g/dL Albumin 3.6 (3.0-4.8) g/dL Globulin 2.3 gm/dL Albumin/Globulin Ratio 1.5 (1.1-1.8) Triglycerides 106 (35-160) mg/dL Cholesterol 143 (130-200) mg/dL LDL Cholesterol Direct 68 (0-129) mg/dL HDL Cholesterol 38 (29-60) mg/dL TSH 3rd Generation 1.61 (0.46-4.68) mIU/mL Laboratory Results - last 24 hr 11/19/17 11/19/17 11/19/17 05:50 05:50 05:50 WBC 4.5 D RBC 3.47 L Hgb 9.6 L Hct 32.5 L MCV 93.7 MCH 27.7 MCHC 29.5 L RDW 15.8 H Plt Count 258 MPV 10.2 Gran % 63.3 Lymph % (Auto) 23.7 [place] % (Auto) 8.6 H Eos % (Auto) 3.5 Baso % (Auto) 0.9 Gran # 2.85 Lymph # (Auto) 1.1 L [place] # (Auto) 0.4 Eos # (Auto) 0.2 Baso # (Auto) 0.04 Sodium 135 Potassium 5.5 H Chloride 97 L Carbon Dioxide 28 Anion Gap 16 BUN 45 H Creatinine 5.0 H Est GFR ( Amer) 11 Est GFR (Non-Af Amer) 9 Random Glucose 98 Calcium 9.9 Phosphorus 5.9 H Magnesium 2.4 H Total Bilirubin 0.2 AST 23 ALT 26 Alkaline Phosphatase 115 Lactate Dehydrogenase 457 Total Creatine Kinase 29 L Troponin I 0.05 Total Protein 5.9 Albumin 3.6 Globulin 2.3 Albumin/Globulin Ratio 1.5 Triglycerides 106 Cholesterol 143 LDL Cholesterol Direct 68 HDL Cholesterol 38 TSH 3rd Generation 1.61 Critical Care Progress Note - Nutrition Nutrition: Nutrition Category Date Time Status Renal Diet [DIET] Diets 11/18/17 Dinner Ordered Assessment/Plan - Assessment and Plan (Free Text) Plan: 57 year old female with past medical history of Seizure disorder, HTN, ESRD on HD //Thu and PVD presented with hypertensive emergency. Patient blood pressure controlled this morning. Patient will have cardiene drip stopped and be restarted on home medications. Patient due for dialysis today. Patient will be transferred to telemetry. Neuro: AAOx3 No deficits Cardio: BP at baseline Hemodynamically stable Cardiene drip stopped Home medications restarted Cardio consulted Pulm: Maintain O2 sat greater than 90% No acute issues GI: Renal diet Protonix Nephro: Dialysis today Replete electrolytes as needed Maintain euvolemia Heme/ID: Afebrile, no leukocytosis Maintain normothermia Marya PGY-2 <Alexis Strauss - Last Filed: 11/19/17 12:40> CCU Objective - Vital Signs / Intake & Output Vital Signs (Last 4 hours): Vital Signs Pulse BP 11/19/17 09:50 88 162/63 H 11/19/17 09:49 164/63 H 11/19/17 09:44 78 162/63 H Intake and Output (Last 8hrs): Intake & Output 11/18/17 11/19/17 11/19/17 22:59 06:59 14:59 Intake Total 200 400 Balance 200 400 Weight 98 lb 1.691 oz Intake: IV 200 400 - Medications Active Medications: Active Medications Generic Name Dose Route Start Last Admin Trade Name Freq PRN Reason Stop Dose Admin Acetaminophen 650 mg 11/18/17 11:02 Tylenol 325mg Tab PO Q6H PRN Pain, Mild (1-3) Amlodipine Besylate 10 mg 11/18/17 11:15 11/19/17 09:49 Norvasc PO 10 mg DAILY ZANA Administration Clonidine HCl 0.2 mg 11/18/17 14:00 11/19/17 09:44 Catapres PO 0.2 mg TID ZANA Administration Docusate Sodium 100 mg 11/18/17 14:00 11/19/17 09:44 Colace PO 100 mg TID ZANA Administration Labetalol HCl 300 mg 11/18/17 14:00 11/19/17 09:50 Trandate PO 300 mg TID ZANA Administration Levalbuterol HCl 1.25 mg 11/18/17 14:00 11/19/17 07:42 Xopenex IH Not Given TIDRESP ZANA Levetiracetam 500 mg 11/18/17 11:15 11/19/17 09:44 Keppra PO 500 mg BID ZANA Administration Levothyroxine Sodium 75 mcg 11/19/17 06:00 11/19/17 05:37 Synthroid PO 75 mcg 0600 ZANA Administration Lisinopril 40 mg 11/18/17 11:15 11/19/17 09:52 Zestril PO 40 mg DAILY ZANA Administration Lorazepam 2 mg 11/18/17 11:02 Ativan IVP Q6H PRN Anxiety Protocol Nifedipine 90 mg 11/19/17 10:00 11/19/17 09:52 Procardia Xl PO 90 mg DAILY ZANA Administration Ondansetron HCl 4 mg 11/18/17 11:02 Zofran Inj IVP Q6H PRN Nausea/Vomiting Pantoprazole Sodium 40 mg 11/19/17 06:00 11/19/17 05:37 Protonix Ec Tab PO 40 mg 0600 ZANA Administration Polyethylene Glycol 17 gm 11/18/17 11:15 11/19/17 09:45 Miralax PO 17 gm BID ZANA Administration Sevelamer HCl 1,600 mg 11/18/17 12:00 11/19/17 12:07 Renagel PO 1,600 mg 0800,1200,1800 ZANA Administration - Patient Studies Lab Studies: Lab Studies 11/19/17 11/19/17 11/19/17 Range/Units 05:50 05:50 05:50 WBC 4.5 D (4.5-11.0) 10^3/ul RBC 3.47 L (3.5-6.1) 10^6/uL Hgb 9.6 L (12.0-16.0) g/dL Hct 32.5 L (36.0-48.0) % MCV 93.7 (80.0-105.0) fl MCH 27.7 (25.0-35.0) pg MCHC 29.5 L (31.0-37.0) g/dl RDW 15.8 H (11.5-14.5) % Plt Count 258 (120.0-450.0) 10^3/uL MPV 10.2 (7.0-11.0) fl Gran % 63.3 (50.0-68.0) % Lymph % (Auto) 23.7 (22.0-35.0) % [place] % (Auto) 8.6 H (1.0-6.0) % Eos % (Auto) 3.5 (1.5-5.0) % Baso % (Auto) 0.9 (0.0-3.0) % Gran # 2.85 (1.4-6.5) Lymph # (Auto) 1.1 L (1.2-3.4) [place] # (Auto) 0.4 (0.1-0.6) Eos # (Auto) 0.2 (0.0-0.7) Baso # (Auto) 0.04 (0.0-2.0) K/mm3 Sodium 135 (132-148) mmol/L Potassium 5.5 H (3.6-5.0) mmol/L Chloride 97 L (98-107) mmol/L Carbon Dioxide 28 (21-33) mmol/L Anion Gap 16 (10-20) BUN 45 H (7-21) mg/dL Creatinine 5.0 H (0.7-1.2) mg/dl Est GFR ( Amer) 11 Est GFR (Non-Af Amer) 9 Random Glucose 98 (70-110) mg/dL Calcium 9.9 (8.4-10.5) mg/dL Phosphorus 5.9 H (2.5-4.5) mg/dL Magnesium 2.4 H (1.7-2.2) mg/dL Total Bilirubin 0.2 (0.2-1.3) mg/dL AST 23 (14-36) U/L ALT 26 (7-56) U/L Alkaline Phosphatase 115 (38-126) U/L Lactate Dehydrogenase 457 (333-699) U/L Total Creatine Kinase 29 L (35-230) U/L Troponin I 0.05 ng/mL Total Protein 5.9 (5.8-8.3) g/dL Albumin 3.6 (3.0-4.8) g/dL Globulin 2.3 gm/dL Albumin/Globulin Ratio 1.5 (1.1-1.8) Triglycerides 106 (35-160) mg/dL Cholesterol 143 (130-200) mg/dL LDL Cholesterol Direct 68 (0-129) mg/dL HDL Cholesterol 38 (29-60) mg/dL TSH 3rd Generation 1.61 (0.46-4.68) mIU/mL Laboratory Results - last 24 hr 11/19/17 11/19/17 11/19/17 05:50 05:50 05:50 WBC 4.5 D RBC 3.47 L Hgb 9.6 L Hct 32.5 L MCV 93.7 MCH 27.7 MCHC 29.5 L RDW 15.8 H Plt Count 258 MPV 10.2 Gran % 63.3 Lymph % (Auto) 23.7 [place] % (Auto) 8.6 H Eos % (Auto) 3.5 Baso % (Auto) 0.9 Gran # 2.85 Lymph # (Auto) 1.1 L [place] # (Auto) 0.4 Eos # (Auto) 0.2 Baso # (Auto) 0.04 Sodium 135 Potassium 5.5 H Chloride 97 L Carbon Dioxide 28 Anion Gap 16 BUN 45 H Creatinine 5.0 H Est GFR ( Amer) 11 Est GFR (Non-Af Amer) 9 Random Glucose 98 Calcium 9.9 Phosphorus 5.9 H Magnesium 2.4 H Total Bilirubin 0.2 AST 23 ALT 26 Alkaline Phosphatase 115 Lactate Dehydrogenase 457 Total Creatine Kinase 29 L Troponin I 0.05 Total Protein 5.9 Albumin 3.6 Globulin 2.3 Albumin/Globulin Ratio 1.5 Triglycerides 106 Cholesterol 143 LDL Cholesterol Direct 68 HDL Cholesterol 38 TSH 3rd Generation 1.61 Critical Care Progress Note - Nutrition Nutrition: Nutrition Category Date Time Status Renal Diet [DIET] Diets 11/18/17 Dinner Ordered Assessment/Plan - Assessment and Plan (Free Text) Plan: Patient seen and examined on rounds with resident, agree with note, with following additions/exceptions: 57yo female w/PMHX ESRD on HD, HTN, PVD, Seizure disorder, a/w hypertensive emergency HTN Emergency ESRD on HD Seizure Disorder Nausea/Vomiting - currently afebrile, BP ranging 150-170, off Cardene drip, transitioned to PO home BP meds - EKG with NSST changes, which is unchanged - no focal neurological deficits, denies KAUR, dizziness Recommend: - supp o2 as needed - Panculture, BCx, UCx, procal - BP control, resume home PO meds, BP acceptable (goal MAP reduction by no more than 25% in first 24hr) - Cardiology follow up - HD as per renal - Geno PO - FS control - GI ppx - stable, transfer to telemetry
--- NOTE | 2017-11-19 10:53 | CARD ---
APPROVED REPORT EKG Measurement Heart [id number] <Conclusion> Normal sinus rhythm Right atrial enlargement PRWP Left ventricular hypertrophy with repolarization abnormality No change
--- NOTE | 2017-11-19 11:34 | CP.PCM.PN ---
Subjective - Date & Time of Evaluation Date of Evaluation: 11/19/17 Time of Evaluation: 09:15 - Subjective Subjective: Seen and examined by me and Dr. Ontiveros Reason for consult and follow up: Cardiac evaluation for chest pain, uncontrolled hypertension, ruled out code STEMI, Subjective: Denies chest pain, shortness of breath, comfortable in no distress, feeling okay Objective - Vital Signs/Intake and Output Vital Signs (last 24 hours): Temp Pulse Resp BP Pulse Ox 97.0 F L 88 26 H 162/63 H 85 L 11/19/17 04:00 11/19/17 09:50 11/18/17 19:00 11/19/17 09:50 11/18/17 19:00 Intake and Output: 11/19/17 11/19/17 06:59 18:59 Intake Total 400 Balance 400 - Medications Medications: Current Medications Acetaminophen (Tylenol 325mg Tab) 650 mg PO Q6H PRN PRN Reason: Pain, Mild (1-3) Amlodipine Besylate (Norvasc) 10 mg PO DAILY [facility] Last Admin: 11/19/17 09:49 Dose: 10 mg Clonidine HCl (Catapres) 0.2 mg PO TID [facility] Last Admin: 11/19/17 09:44 Dose: 0.2 mg Docusate Sodium (Colace) 100 mg PO TID [facility] Last Admin: 11/19/17 09:44 Dose: 100 mg Labetalol HCl (Trandate) 300 mg PO TID [facility] Last Admin: 11/19/17 09:50 Dose: 300 mg Levalbuterol HCl (Xopenex) 1.25 mg IH TIDRESP [facility] Last Admin: 11/19/17 07:42 Dose: Not Given Levetiracetam (Keppra) 500 mg PO BID [facility] Last Admin: 11/19/17 09:44 Dose: 500 mg Levothyroxine Sodium (Synthroid) 75 mcg PO 0600 [facility] Last Admin: 11/19/17 05:37 Dose: 75 mcg Lisinopril (Zestril) 40 mg PO DAILY [facility] Last Admin: 11/19/17 09:52 Dose: 40 mg Lorazepam (Ativan) 2 mg IVP Q6H PRN; Protocol PRN Reason: Anxiety Nifedipine (Procardia Xl) 90 mg PO DAILY [facility] Last Admin: 03/15/18 09:52 Dose: 90 mg Ondansetron HCl (Zofran Inj) 4 mg IVP Q6H PRN PRN Reason: Nausea/Vomiting Pantoprazole Sodium (Protonix Ec Tab) 40 mg PO 0600 [facility] Last Admin: 11/19/17 05:37 Dose: 40 mg Polyethylene Glycol (Miralax) 17 gm PO BID [facility] Last Admin: 11/19/17 09:45 Dose: 17 gm Sevelamer HCl (Renagel) 1,600 mg PO 0800,1200,1800 [facility] Last Admin: 11/19/17 09:44 Dose: 1,600 mg - Labs Labs: 11/19/17 05:50 11/19/17 05:50 PT 11.3 SECONDS (9.4-12.5) 11/18/17 10:50 INR 0.98 (0.93-1.08) 11/18/17 10:50 APTT 20.8 Seconds (25.1-36.5) L 11/18/17 10:50 - Constitutional Appears: Well, No Acute Distress - Head Exam Head Exam: NORMAL INSPECTION, NORMOCEPHALIC - Eye Exam Eye Exam: Normal appearance Pupil Exam: NORMAL ACCOMODATION - ENT Exam ENT Exam: Mucous Membranes Moist, Normal Exam - Respiratory Exam Respiratory Exam: Decreased Breath Sounds, Clear to Ausculation Bilateral, NORMAL BREATHING PATTERN - Cardiovascular Exam Cardiovascular Exam: REGULAR RHYTHM, +S1, +S2 - GI/Abdominal Exam GI & Abdominal Exam: Soft, Normal Bowel Sounds - Exam Exam: NORMAL INSPECTION - Extremities Exam Extremities Exam: Full ROM, Normal Capillary Refill - Neurological Exam Neurological Exam: Alert, Awake, Oriented x3 - Psychiatric Exam Psychiatric exam: Normal Affect, Normal Mood - Skin Skin Exam: Dry, Intact, Normal Color, Warm Assessment and Plan - Assessment and Plan (Free Text) Assessment: IMPRESSION: Cardiac evaluation for chest pain, uncontrolled hypertension, ruled out code STEMI, 57 year old female presented to the ER with uncontrolled hypertension with past medical history of Seizure disorder, PVD ESRD on Hemodialysis. Plan: Controlled blood pressure, continue current medications Hemodynamically stable Cardiene drip stopped Home medications restarted May transfer to telemetry Will follow up. Plan and treatment discussed with Dr. Ontiveros
--- NOTE | 2017-11-19 14:14 | PN ---
DATE: SUBJECTIVE: The patient is currently seen being downgraded from the ICU. She is now off her Cardene drip. Blood pressure control has significantly improved. The patient is back on oral medication. She will be having dialysis later today. She no longer has any chest pain, shortness of breath, nausea, vomiting or diaphoresis. MEDICATIONS: Medication list reviewed. The patient is currently on Ativan, clonidine, Colace, Keppra, MiraLax, Norvasc, Protonix, Renagel, Synthroid, Trandate, Tylenol p.r.n., Xopenex, lisinopril and Zofran. OBJECTIVE: INTAKE/OUTPUT: Intake 600, output 0. VITAL SIGNS: Present blood pressure is 162/63. Cardene drip had been discontinued. Pulse of 88. Temperature is 97. Respiratory rate is 25. HEENT: Exam shows her to be normocephalic, atraumatic. Conjunctivae are pale. Sclerae nonicteric. NECK: Supple. No neck vein distention. CHEST: Clear to auscultation and percussion. No rales, rhonchi or wheezing. She has a right chest wall PermCath. CARDIOVASCULAR: Regular rate and rhythm. No S3. No S4. No rub. MR/TR/AI. ABDOMEN: Soft. Bowel sounds normal. No rebound, guarding or masses. EXTREMITIES: Dressing over her right lower leg. Clotted AV fistula, right upper extremity. Positive right chest wall PermCath. No lower extremity cyanosis, clubbing or edema. LABORATORY DATA AND IMAGING: CBC today, white blood cell count 4.5, hemoglobin 9.6, platelet count is 258,000. Chemistries today show potassium of 5.5. The patient will be having dialysis later today. Sodium 135. Chloride 97. BUN 45 with the creatinine of 5.0. Calcium 9.9, phosphorus 5.9 with magnesium level of 2.4. Troponin levels are flat at 0.05 and 0.06. BNP on admission was 230,000. ASSESSMENT: 1. Status post a recurrent episode of uncontrolled hypertension with extremely high blood pressure readings. This is in the setting of the patient having episodes of nausea and vomiting and unable to keep down her a.m. blood pressure medications. The patient has stabilized and is back to baseline. She is off IV Cardene. She is back on her oral blood pressure medications. The patient does not need both nifedipine and Norvasc. We should choose one calcium channel mino only. 2. History of end-stage renal disease. The patient will receive her routine dialysis today. 3. Mild hyperkalemia. This should correct with dialysis today. The patient will continue all dietary restrictions. She is somewhat reluctantly on an angiotensin-converting enzyme inhibitor to help improve her blood pressure control. 4. History of atherosclerotic heart disease, status post percutaneous transluminal coronary angioplasty and stents. History of mild valvular heart disease. Past history of myocardial infarction. History of congestive heart failure. Presently, her troponin levels are flat. 5. History of chronic obstructive pulmonary disease in a patient with long history of cigarette smoking. 6. History of severe peripheral vascular disease with poorly healing ulcer of her right leg, status post skin graft with foreskin to the area. This is being followed by the surgeon who placed the skin graft. 7. History of secondary hyperparathyroidism. The patient will continue taking binder therapy. She is on Renagel 1600 mg with each meal. She will continue a renal diet. 8. History of hypothyroidism. TSH level is normal. The patient will continue with thyroid replacement therapy. 9. Past history of mild glucose intolerance. PLAN: 1. Discussed with the patient in detail the need for her to be taking her blood pressure medication at the appropriate time everyday because when she misses medication, her blood pressure spikes significantly. 2. We will continue to challenge the patient's dry weight on dialysis. 3. The patient to dialyze on a low potassium bath in light of her K of 5.5. 4. If the patient's blood pressure remained stable over the next 24 hours, perhaps discharge home. Sampson Hutchins MD
--- NOTE | 2017-11-19 17:01 | PN ---
DATE: SUBJECTIVE: The patient is 57 years old, seen and examined, seems to be doing a little better. Less nausea. Complaining of leg pain. Chest pain has improved somewhat. PHYSICAL EXAMINATION: VITAL SIGNS: She is afebrile, pulse 70, respirations 18, blood pressure 162/63. LUNGS: Bilateral good airflow. No rhonchi or crackle. HEART: S1 and S2 audible. ABDOMEN: Soft. Nontender. No rebound. No guarding. NEUROLOGIC: The patient is awake, alert, oriented, communicative. EXTREMITIES: Bilateral legs, no edema. She has a healing ulcer on the left leg. LABORATORY EXAM: WBC is 4.5, hemoglobin 9.6, hematocrit 32.5, platelet 258. PT 11.3, INR 0.98, PTT 20.8. Chemistry: Sodium 135, potassium 5.5, chloride 97, CO2 of 28, BUN 45, creatinine 5.0, blood sugar of 99. ASSESSMENT: 1. Uncontrolled hypertension. 2. Status post hypertensive encephalopathy. 3. Hyperlipidemia. 4. Pulmonary hypertension. 5. Peptic ulcer disease. 6. Chronic obstructive pulmonary disease. 7. Bilateral leg bypass surgery. 8. Right carotid angioplasty. PLAN: Currently, the patient is on aspirin, lorazepam, clonidine. She is on nebulizer treatment. She is also on Keppra for seizure disorder. We will continue her on amlodipine, lisinopril and labetalol. The patient seems to be clinically stable, can be transferred to Med-Surg. Brittany Coffman MD
[2017-11-19] MEDS: HYDROmorphone 0.5 mg/0.5 ml ISec IVP PRN ×2 (18:25→22:27)
[2017-11-20] MEDS: HYDROmorphone 0.5 mg/0.5 ml ISec IVP PRN ×3 (04:10→20:51)
[2017-11-20] MEDS: Levothyroxine 75 MCG TAB PO SCH (05:44)
[2017-11-20] MEDS: Pantoprazole 40 mg EC Tab PO SCH (05:44)
--- NOTE | 2017-11-20 06:06 | CP.PCM.PN ---
Subjective - Date & Time of Evaluation Date of Evaluation: 11/20/17 Time of Evaluation: 06:15 - Subjective Subjective: Seen and examined by me and Dr. Spear Reason for consultation and follow up: cardiac evaluation for chest pain, uncontrolled hypertension, ruled out code STEMI Subjective: denies chest pain, verbalized to be feeling better than yesterday. some mild headache Objective - Vital Signs/Intake and Output Vital Signs (last 24 hours): Temp Pulse Resp BP Pulse Ox 98.3 F 73 22 194/78 H 100 11/19/17 12:00 11/20/17 02:00 11/19/17 20:40 11/19/17 20:01 11/19/17 20:40 - Medications Medications: Current Medications Acetaminophen (Tylenol 325mg Tab) 650 mg PO Q6H PRN PRN Reason: Pain, Mild (1-3) Amlodipine Besylate (Norvasc) 10 mg PO DAILY [facility] Last Admin: 11/19/17 09:49 Dose: 10 mg Clonidine HCl (Catapres) 0.2 mg PO TID [facility] Last Admin: 11/19/17 18:16 Dose: 0.2 mg Docusate Sodium (Colace) 100 mg PO TID [facility] Last Admin: 11/19/17 18:16 Dose: 100 mg Hydromorphone HCl (Dilaudid) 0.5 mg IVP Q4H PRN PRN Reason: Pain, moderate (4-7) Last Admin: 11/20/17 04:10 Dose: 0.5 mg Labetalol HCl (Trandate) 300 mg PO TID [facility] Last Admin: 11/19/17 18:22 Dose: 300 mg Levalbuterol HCl (Xopenex) 1.25 mg IH TIDRESP [facility] Last Admin: 11/19/17 19:42 Dose: 1.25 mg Levetiracetam (Keppra) 500 mg PO BID [facility] Last Admin: 11/19/17 18:17 Dose: 500 mg Levothyroxine Sodium (Synthroid) 75 mcg PO 0600 [facility] Last Admin: 11/20/17 05:44 Dose: 75 mcg Lisinopril (Zestril) 40 mg PO DAILY [facility] Last Admin: 11/19/17 09:52 Dose: 40 mg Lorazepam (Ativan) 2 mg IVP Q6H PRN; Protocol PRN Reason: Anxiety Nifedipine (Procardia Xl) 90 mg PO DAILY [facility] Last Admin: 11/19/17 09:52 Dose: 90 mg Ondansetron HCl (Zofran Inj) 4 mg IVP Q6H PRN PRN Reason: Nausea/Vomiting Last Admin: 11/20/17 01:35 Dose: 4 mg Pantoprazole Sodium (Protonix Ec Tab) 40 mg PO 0600 [facility] Last Admin: 11/20/17 05:44 Dose: 40 mg Polyethylene Glycol (Miralax) 17 gm PO BID [facility] Last Admin: 11/19/17 18:21 Dose: 17 gm Sevelamer HCl (Renagel) 1,600 mg PO 0800,1200,1800 [facility] Last Admin: 11/19/17 18:17 Dose: 1,600 mg - Labs Labs: 11/19/17 05:50 11/19/17 05:50 PT 11.3 SECONDS (9.4-12.5) 11/18/17 10:50 INR 0.98 (0.93-1.08) 11/18/17 10:50 APTT 20.8 Seconds (25.1-36.5) L 11/18/17 10:50 - Constitutional Appears: No Acute Distress - Head Exam Head Exam: NORMAL INSPECTION - Eye Exam Eye Exam: Normal appearance Pupil Exam: NORMAL ACCOMODATION - ENT Exam ENT Exam: Mucous Membranes Moist - Respiratory Exam Respiratory Exam: Decreased Breath Sounds, Clear to Ausculation Bilateral Additional comments: on nasal cannula 2 liters - Cardiovascular Exam Cardiovascular Exam: REGULAR RHYTHM, +S1, +S2 - GI/Abdominal Exam GI & Abdominal Exam: Soft, Normal Bowel Sounds - Extremities Exam Extremities Exam: Full ROM, Normal Capillary Refill - Neurological Exam Neurological Exam: Alert, Awake, Oriented x3 - Psychiatric Exam Psychiatric exam: Normal Affect, Normal Mood - Skin Skin Exam: Intact, Normal Color, Warm Assessment and Plan - Assessment and Plan (Free Text) Assessment: IMPRESSION: Cardiac evaluation for chest pain, uncontrolled hypertension, ruled out code STEMI, 57 year old female presented to the ER with uncontrolled hypertension with past medical history of Seizure disorder, PVD ESRD on Hemodialysis. She was in ICU for hypertensive crisis. Plan: Transferred to telemetry Controlled blood pressure, continue Norvasc 10 mg daily, Catapres 0.2 mg TID, Labetolol 300 mg TID, Lisinopril 40 mg daily, Procardia XL 90 mg daily Stable cardiac status Reinforced compliance of medications Will follow closely. Plan and treatment discussed with Dr. Spear
[2017-11-20] MEDS: Levalbuterol 1.25 MG/3 ML Inhal Soln UD IH SCH ×3 (07:38→20:30)
[2017-11-20] MEDS: NIFEdipine 90 mg ER Tab PO SCH (09:48)
[2017-11-20] MEDS: POLYETHYLENE GLYCOL 3350 17 GM/Dose PACKET PO SCH ×2 (10:18→18:06)
[2017-11-21] MEDS: HYDROmorphone 0.5 mg/0.5 ml ISec IVP PRN ×4 (01:15→20:18)
[2017-11-21] MEDS: Levothyroxine 75 MCG TAB PO SCH (05:35)
[2017-11-21] MEDS: Pantoprazole 40 mg EC Tab PO SCH (05:35)
[2017-11-21] MEDS: Levalbuterol 1.25 MG/3 ML Inhal Soln UD IH SCH ×3 (07:37→21:00)
--- NOTE | 2017-11-21 09:21 | PN ---
DATE: SUBJECTIVE: The patient is currently seen in the studio operation engineer hours sitting up in bed. She is scheduled for dialysis later today. Her blood pressure control except for a blood pressure spike last night has been controlled. Present blood pressure this morning is 157/69. The patient states she will have a port placed in her left chest wall on Thursday. After that, she would like to go home. MEDICATIONS: Medication list reviewed. The patient is currently on Ativan, clonidine, Colace, Dilaudid, Keppra, MiraLax, Norvasc, Procardia, Protonix, Renagel, Synthroid, Trandate, Tylenol p.r.n., Xopenex p.r.n., lisinopril and Zofran. OBJECTIVE INTAKE/OUTPUT: Intake 240+, output zero. VITAL SIGNS: Present blood pressure is 157/69 with a pulse of 67, respiratory rate is 20, temperature is 98.2. HEENT: Exam shows her be normocephalic, atraumatic. Conjunctivae are pale. Sclerae are nonicteric. NECK: Supple. No neck vein distention. CHEST: Clear to auscultation and percussion. No rales, rhonchi or wheezing. She has a right chest wall PermCath. CARDIOVASCULAR: Shows a regular rate and rhythm with no S3, no S4. No rub. MR/TR/AI. ABDOMEN: Soft. Bowel sounds normal. No rebound, guarding or masses. EXTREMITIES: Show a dressing over her right lower leg. She has a clotted AV fistula, right upper extremity and positive right chest wall PermCath. No lower extremity cyanosis, clubbing or edema. LABORATORY DATA AND IMAGING: CBC from 11/19 was 4.5 with a hemoglobin of 9.6, platelet count of 258,000. Chemistries: Last potassium from 11/19 was 5.5. Sodium 135, BUN 45 with a creatinine of 5. Calcium 9.9, phosphorus 5 with a magnesium level of 2.4. ASSESSMENT 1. Status post episode of severe uncontrolled hypertension presenting with nausea, vomiting, chest pain, shortness of breath and diaphoresis. The patient was treated initially with IV Tridil and then, switched over to IV Cardene. She is currently back on her blood pressure medicine. With the exception of an occasional blood pressure spike, her blood pressures are better controlled. 2. History of end-stage renal disease. The patient will receive routine dialysis today, she is a Thursday, , Thursday patient. 3. Mild hyperkalemia. Patient will dialyze on a low potassium bath. She will continue a renal diet which is 2 g potassium and we will be careful treating her with an VIMAL inhibitor, which is being used to control her blood pressure. 4. History of atherosclerotic heart disease, status post percutaneous transluminal coronary angioplasty and stents. 5. History of mild valvular heart disease, history of myocardial infarction, history of congestive heart failure. All stable. 6. History of chronic obstructive pulmonary disease in a patient with a very long history of cigarette smoking. 7. History of peripheral vascular disease. She has had a poorly healing ulcer of the right leg. She has had a skin graft with foreskin and this area seems to be healing. She is being followed by the operating surgeon. 8. History of secondary hyperparathyroidism. The patient will continue binder therapy. Repeat phosphorus level with dialysis today. She will continue renal diet. 9. History of hypothyroidism. The patient will continue thyroid replacement therapy. 10. History of mild glucose intolerance. PLAN 1. Hemodialysis today. 2. Continue blood pressure medication as ordered. 3. Continue to challenge her dry weight, to try and lower her dry weight, this will help improve her blood pressure control. 4. The patient states she is scheduled for a port on Thursday, after which point in time she states she would like to be discharged home. Sampson Hutchins MD
[2017-11-21] MEDS: POLYETHYLENE GLYCOL 3350 17 GM/Dose PACKET PO SCH ×2 (09:23→18:36)
[2017-11-21 14:52] LABS: BASO # 0.02 K/mm3 (0.0-2.0); BASO % 0.8 % (0.0-3.0); EOS # 0.1 (0.0-0.7); EOS % 3.9 % (1.5-5.0); GRAN # 1.11 (1.4-6.5); GRAN % 43.1 % (50.0-68.0); HEMOGLOBIN 8.3 g/dL (12.0-16.0); LYMPH # 1.1 (1.2-3.4); LYMPH % 44.4 % (22.0-35.0); MEAN CELL VOLUME 94.2 fl (80.0-105.0); MEAN CORPUSCULAR HEMOGLOBIN 28.1 pg (25.0-35.0); MEAN CORPUSCULAR HGB CONC 29.9 g/dl (31.0-37.0); MEAN PLATELET VOLUME 9.7 fl (7.0-11.0); MONO # 0.2 (0.1-0.6); MONO % 7.8 % (1.0-6.0); RBC 2.95 10^6/uL (3.5-6.1); RED CELL DISTRIBUTION WIDTH 15.8 % (11.5-14.5)
[2017-11-21 14:55] LABS: WHITE BLOOD COUNT 2.6 10^3/ul (4.5-11.0)
[2017-11-21 15:11] LABS: ALB/GLOB RATIO 1.5 (1.1-1.8); ALBUMIN 3.4 g/dL (3.0-4.8); CALCIUM 9.3 mg/dL (8.4-10.5)
[2017-11-21] MEDS: NIFEdipine 90 mg ER Tab PO SCH (18:37)
--- NOTE | 2017-11-21 21:11 | PN ---
DATE: SUBJECTIVE: Patient has no complaints of any chest pain. No shortness of breath. No headaches. PHYSICAL EXAMINATION: VITAL SIGNS: Temperature is 97.8, pulse of 71, blood pressure is 181/79, respirations 20. GENERAL: The patient is lying in bed, flat, comfortable. HEENT: No oral lesion. Anicteric sclerae. Moist mucosa. NECK: No JVD, adenopathy, or thyromegaly. CARDIOVASCULAR: S1 and S2, regular. No murmurs, rubs, or gallops. LUNGS: Clear to auscultation bilaterally. No wheeze, rales, or rhonchi. ABDOMEN: Bowel sounds are positive, soft, nontender, and nondistended. EXTREMITIES: no cyanosis, clubbing, or edema. LABORATORY DATA: White count is 2.6, hemoglobin 8.3. Creatinine is 4.4. ASSESSMENT: 1. End-stage renal disease, on hemodialysis. 2. Poor intravenous access. 3. Hypertension. 4. Peripheral arterial disease, status post bypass. 5. Secondary hyperparathyroidism. 6. Hypothyroidism. 7. Pulmonary hypertension. 8. Seizure disorder. 9. Hypertensive emergency. PLAN: The patient is currently comfortably and the patient's blood pressure is better controlled. She is being followed by Dr. Hutchins. The patient is going to continue with dialysis. The patient is on clonidine for her hypertension. She is going to continue with Dilaudid for pain. She is on Keppra. She is on MiraLax for constipation. She is going to continue with Procardia for her hypertension. She is on Synthroid for hypothyroidism. She is going to be on Xopenex as needed. She is waiting for a port placement as well because of her poor IV access. Jose Richards MD
[2017-11-22] MEDS: HYDROmorphone 0.5 mg/0.5 ml ISec IVP PRN ×4 (01:57→18:27)
[2017-11-22] MEDS: Levothyroxine 75 MCG TAB PO SCH (05:31)
[2017-11-22] MEDS: Pantoprazole 40 mg EC Tab PO SCH (05:31)
[2017-11-22] MEDS: Levalbuterol 1.25 MG/3 ML Inhal Soln UD IH SCH ×3 (07:54→19:22)
[2017-11-22] MEDS: NIFEdipine 90 mg ER Tab PO SCH (09:43)
[2017-11-22] MEDS: POLYETHYLENE GLYCOL 3350 17 GM/Dose PACKET PO SCH ×2 (09:44→17:34)
--- NOTE | 2017-11-22 10:59 | PN ---
DATE: SUBJECTIVE: The patient had an uneventful dialysis yesterday. Blood pressure has remained controlled through the evening and into the morning hours. The patient states that she will have a port placed in her left chest wall on Thursday after which she will likely be discharged home. MEDICATIONS: Medication list reviewed. The patient is currently on Ativan, clonidine, Colace, Dilaudid p.r.n., heparin, Keppra, MiraLax, Norvasc, Protonix, Renagel, Synthroid, Trandate, Procardia, Tylenol, Xopenex, Zestril and Zofran. OBJECTIVE: INTAKE/OUTPUT: Intake 660, output 200. Plus dialysis. VITAL SIGNS: Blood pressure 162/62, temperature 98.3, respiratory rate is 18 with a pulse of 80. HEENT: Shows her to be normocephalic, atraumatic. Conjunctivae are pale. Sclerae are nonicteric. NECK: Supple. No neck vein distention. CHEST: Clear to auscultation and percussion. No rales, rhonchi or wheezing. Right chest wall PermCath. CARDIOVASCULAR: Shows a regular rate and rhythm with no S3. No S4. No rub. MR/TR/AI. ABDOMEN: Soft. Bowel sounds normal. No rebound, guarding or masses. EXTREMITIES: Show dressing over her right lower leg. She has a clotted AV fistula, right upper extremity and a right chest wall PermCath. No lower extremity cyanosis, clubbing or edema. LABORATORY DATA AND IMAGING: Labs from yesterday showed a white blood cell count of 2.6, hemoglobin low at 8.3, platelet count is 200,000. Chemistry were normal, showed normal electrolytes. BUN 33 with a creatinine of 4.4. ASSESSMENT: 1. Status post episode of uncontrolled hypertension with hypertensive urgency. This is associated with chest pain, nausea, vomiting, diaphoresis and shortness of breath. The patient has responded initially to IV Tridil and then IV Cardene. Currently, back on her blood pressure medication. Her blood pressure is controlled. She does have occasional spikes, but this is her baseline pattern. 2. History of end-stage renal disease. The patient will continue dialysis. Next dialysis will likely be as an outpatient on 11/24/2017. 3. Mild hyperkalemia. This has resolved with a renal diet and dialysis. The patient is being maintained on an angiotensin-converting enzyme inhibitor and we are monitoring potassium levels closely. 4. History of atherosclerotic heart disease, status post percutaneous transluminal coronary angioplasty and stents. 5. History of mild valvular heart disease, congestive heart failure, history of myocardial infarction, all stable. 6. History of chronic obstructive pulmonary disease secondary to long history of cigarette smoking, currently stable. 7. History of peripheral vascular disease, status post foreskin graft to her right lower leg nonhealing ulcer. This seems to be working well for her. She is being followed by the operating surgeon. 8. History of secondary hyperparathyroidism. The patient will continue binder therapy. 9. History of hypothyroidism. The patient will continue thyroid replacement therapy. 10. History of mild glucose intolerance. PLAN: 1. Port scheduled for tomorrow, after which the patient will likely be discharged home. 2. Need to determine whether the patient is taking Norvasc and Procardia. These actions duplicate each other and the patient does not likely need both of these medications. I would suggest going home on Norvasc and not using Procardia. 3. Continue to try and bring the patient's dry weight down as much as tolerated. This will help with her blood pressure control. 4. Follow up with me in the outpatient hemodialysis unit. Sampson Hutchins MD
--- NOTE | 2017-11-22 13:53 | CP.PCM.PN ---
<Whit Angeles - Last Filed: 11/22/17 13:48> Subjective - Date & Time of Evaluation Date of Evaluation: 11/22/17 Time of Evaluation: 13:48 - Subjective Subjective: Podiatry Progress Note - Dr. Blanton 57 y/o female seen and examined at bedside for right leg superficial ulceration. Pt says she had a lot of pain in the right leg overnight and required meds to control it. Denies drainage from the wound or strikethrough on the bandage. States she will likely be discharged tomorrow. Denies any F/C/N/V/ CP/SOB. Objective - Vital Signs/Intake and Output Vital Signs (last 24 hours): Temp Pulse Resp BP Pulse Ox 98.3 F 80 20 162/62 H 99 11/22/17 06:00 11/22/17 10:00 11/22/17 06:00 11/22/17 09:43 11/22/17 06:00 Intake and Output: 11/22/17 11/22/17 06:59 18:59 Intake Total 420 Output Total 200 Balance 220 - Medications Medications: Current Medications Acetaminophen (Tylenol 325mg Tab) 650 mg PO Q6H PRN PRN Reason: Pain, Mild (1-3) Amlodipine Besylate (Norvasc) 10 mg PO DAILY [facility] Last Admin: 11/22/17 09:43 Dose: 10 mg Clonidine HCl (Catapres) 0.2 mg PO TID [facility] Last Admin: 11/22/17 09:43 Dose: 0.2 mg Docusate Sodium (Colace) 100 mg PO TID [facility] Last Admin: 11/22/17 09:44 Dose: 100 mg Heparin Sodium (Porcine) (Heparin) 2,200 units ICA TTS [facility] Last Admin: 11/21/17 17:16 Dose: 2,200 units Hydromorphone HCl (Dilaudid) 0.5 mg IVP Q4H PRN PRN Reason: Pain, severe (8-10) Last Admin: 11/22/17 12:23 Dose: 0.5 mg Labetalol HCl (Trandate) 300 mg PO TID [facility] Last Admin: 11/22/17 09:43 Dose: 300 mg Levalbuterol HCl (Xopenex) 1.25 mg IH TIDRESP [facility] Last Admin: 11/22/17 07:54 Dose: 1.25 mg Levetiracetam (Keppra) 500 mg PO BID [facility] Last Admin: 11/22/17 09:44 Dose: 500 mg Levothyroxine Sodium (Synthroid) 75 mcg PO 0600 [facility] Last Admin: 11/22/17 05:31 Dose: 75 mcg Lisinopril (Zestril) 40 mg PO DAILY [facility] Last Admin: 11/22/17 09:43 Dose: 40 mg Lorazepam (Ativan) 2 mg IVP Q6H PRN; Protocol PRN Reason: Anxiety Nifedipine (Procardia Xl) 90 mg PO DAILY [facility] Last Admin: 11/22/17 09:43 Dose: 90 mg Ondansetron HCl (Zofran Inj) 4 mg IVP Q6H PRN PRN Reason: Nausea/Vomiting Last Admin: 11/22/17 08:02 Dose: 4 mg Pantoprazole Sodium (Protonix Ec Tab) 40 mg PO 0600 [facility] Last Admin: 11/22/17 05:31 Dose: 40 mg Polyethylene Glycol (Miralax) 17 gm PO BID [facility] Last Admin: 11/22/17 09:44 Dose: 17 gm Sevelamer HCl (Renagel) 1,600 mg PO 0800,1200,1800 [facility] Last Admin: 11/22/17 12:24 Dose: 1,600 mg - Labs Labs: 11/21/17 14:30 11/21/17 14:30 PT 11.3 SECONDS (9.4-12.5) 11/18/17 10:50 INR 0.98 (0.93-1.08) 11/18/17 10:50 APTT 20.8 Seconds (25.1-36.5) L 11/18/17 10:50 - Constitutional Appears: Well, Non-toxic, No Acute Distress - Extremities Exam Additional comments: Right lower extremity focused examination: Vasc: DP/PT pulses palpable 2/4 B/L. Skin temperature warm to warm from proximal to distal. CFT < 3 seconds to all digits B/L. No pedal edema noted. 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 No woo-wound erythema, no malodor, no purulence, no tunneling, tracking, undermining, probe to bone or fluctuance. No maceration , xerosis, abnormal pigmentation or abnormal growths noted to b/l LE. Neuro: Epicritic and protective sensation grossly intact B/L. 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 Blanton Labs and vitals reviewed- afebrile, WBC 2.6 Ulceration cleansed with sterile saline Optifoam dressing applied to R leg ulcer Pt is stable for discharge from podiatry standpoint Will continue to monitor while patient remains in house Upon discharge, pt to follow up with Dr. Blanton/Reanna in the wound care center <Wendy Blanton - Last Filed: 11/22/17 16:01> Objective - Vital Signs/Intake and Output Vital Signs (last 24 hours): Temp Pulse Resp BP Pulse Ox 98.3 F 85 20 171/68 H 99 11/22/17 06:00 11/22/17 14:00 11/22/17 06:00 11/22/17 13:57 11/22/17 06:00 Intake and Output: 11/22/17 11/22/17 06:59 18:59 Intake Total 420 Output Total 200 Balance 220 - Medications Medications: Current Medications Acetaminophen (Tylenol 325mg Tab) 650 mg PO Q6H PRN PRN Reason: Pain, Mild (1-3) Amlodipine Besylate (Norvasc) 10 mg PO DAILY [facility] Last Admin: 11/22/17 09:43 Dose: 10 mg Clonidine HCl (Catapres) 0.2 mg PO TID [facility] Last Admin: 11/22/17 13:56 Dose: 0.2 mg Docusate Sodium (Colace) 100 mg PO TID [facility] Last Admin: 11/22/17 13:54 Dose: 100 mg Heparin Sodium (Porcine) (Heparin) 2,200 units ICA TTS [facility] Last Admin: 11/21/17 17:16 Dose: 2,200 units Hydromorphone HCl (Dilaudid) 0.5 mg IVP Q4H PRN PRN Reason: Pain, severe (8-10) Last Admin: 11/22/17 12:23 Dose: 0.5 mg Labetalol HCl (Trandate) 300 mg PO TID [facility] Last Admin: 11/22/17 13:57 Dose: 300 mg Levalbuterol HCl (Xopenex) 1.25 mg IH TIDRESP [facility] Last Admin: 11/22/17 13:50 Dose: 1.25 mg Levetiracetam (Keppra) 500 mg PO BID [facility] Last Admin: 11/22/17 09:44 Dose: 500 mg Levothyroxine Sodium (Synthroid) 75 mcg PO 0600 [facility] Last Admin: 11/22/17 05:31 Dose: 75 mcg Lisinopril (Zestril) 40 mg PO DAILY [facility] Last Admin: 11/22/17 09:43 Dose: 40 mg Lorazepam (Ativan) 2 mg IVP Q6H PRN; Protocol PRN Reason: Anxiety Nifedipine (Procardia Xl) 90 mg PO DAILY [facility] Last Admin: 11/22/17 09:43 Dose: 90 mg Ondansetron HCl (Zofran Inj) 4 mg IVP Q6H PRN PRN Reason: Nausea/Vomiting Last Admin: 11/22/17 08:02 Dose: 4 mg Pantoprazole Sodium (Protonix Ec Tab) 40 mg PO 0600 [facility] Last Admin: 11/22/17 05:31 Dose: 40 mg Polyethylene Glycol (Miralax) 17 gm PO BID [facility] Last Admin: 11/22/17 09:44 Dose: 17 gm Sevelamer HCl (Renagel) 1,600 mg PO 0800,1200,1800 [facility] Last Admin: 11/22/17 12:24 Dose: 1,600 mg - Labs Labs: 11/21/17 14:30 11/21/17 14:30 PT 11.3 SECONDS (9.4-12.5) 11/18/17 10:50 INR 0.98 (0.93-1.08) 11/18/17 10:50 APTT 20.8 Seconds (25.1-36.5) L 11/18/17 10:50 Attending/Attestation - Attestation I have personally seen and examined this patient.: Yes I have fully participated in the care of the patient.: Yes I have reviewed all pertinent clinical information, including history, physical exam and plan: Yes
--- NOTE | 2017-11-22 15:38 | PN ---
DATE: 11/22/2017 SUBJECTIVE: The patient has no complaints of any chest pain. No shortness of breath. No headaches. No dizziness. PHYSICAL EXAMINATION: VITAL SIGNS: Temperature is 98.3, pulse of 80, blood pressure 162/62, respirations 20. GENERAL: The patient is lying in bed, flat, comfortable. HEENT: No oral lesion. Anicteric sclerae. Moist mucosa. NECK: No JVD, adenopathy, or thyromegaly. CARDIOVASCULAR: S1 and S2, regular. No murmurs, rubs, or gallops. LUNGS: Clear to auscultation bilaterally. No wheeze, rales, or rhonchi. ABDOMEN: Bowel sounds are positive, soft, nontender, and nondistended. EXTREMITIES: No cyanosis, clubbing, or edema. LABORATORY DATA: White count of 2.6, hemoglobin 8.3. Creatinine is 4.4. ASSESSMENT: 1. End-stage renal disease, on hemodialysis. 2. Poor intravenous access. 3. Hypertension. 4. Peripheral arterial disease, status post bypass. 5. Secondary hyperparathyroidism. 6. Hypothyroidism. 7. Pulmonary hypertension. 8. Seizure disorder. 9. Hypertensive emergency, improved. PLAN: The patient is currently feeling well. She states she was not able to sleep yesterday. Her blood pressure remains elevated. She is being followed by Nephrology for her dialysis and for hypertension. The patient is going to continue on Colace for constipation. She is on Keppra for seizures. The patient is on Norvasc for hypertension, is on Procardia as well. The patient is receiving Synthroid for hypothyroidism, is on Zestril for hypertension. She is on a renal diet. She is going for a Port-a-Cath placement tomorrow. Jose Richards MD
[2017-11-23] MEDS: HYDROmorphone 0.5 mg/0.5 ml ISec IVP PRN ×4 (00:29→20:10)
--- NOTE | 2017-11-23 05:57 | CP.PCM.PN ---
Subjective - Date & Time of Evaluation Date of Evaluation: 11/23/17 Time of Evaluation: 06:50 - Subjective Subjective: Seen and examined by me and Dr. Ontiveros Reason for consultation and follow up: Cardiac evaluation for chest pain, uncontrolled hypertension, ruled out code STEMI, 57 year old female presented to the ER with uncontrolled hypertension with past medical history of Seizure disorder, PVD ESRD on Hemodialysis. She was in ICU for hypertensive crisis. Subjective: denies chest pain or shortness of breath, feels okay Objective - Vital Signs/Intake and Output Vital Signs (last 24 hours): Temp Pulse Resp BP Pulse Ox 98.2 F 74 20 156/66 H 100 11/22/17 17:55 11/22/17 22:00 11/22/17 17:55 11/22/17 17:55 11/22/17 17:55 Intake and Output: 11/22/17 11/23/17 18:59 06:59 Intake Total 540 Balance 540 - Medications Medications: Current Medications Acetaminophen (Tylenol 325mg Tab) 650 mg PO Q6H PRN PRN Reason: Pain, Mild (1-3) Amlodipine Besylate (Norvasc) 10 mg PO DAILY [facility] Last Admin: 11/22/17 09:43 Dose: 10 mg Clonidine HCl (Catapres) 0.2 mg PO TID [facility] Last Admin: 11/22/17 17:33 Dose: 0.2 mg Docusate Sodium (Colace) 100 mg PO TID [facility] Last Admin: 11/22/17 17:33 Dose: 100 mg Heparin Sodium (Porcine) (Heparin) 2,200 units ICA TTS [facility] Last Admin: 11/21/17 17:16 Dose: 2,200 units Hydromorphone HCl (Dilaudid) 0.5 mg IVP Q4H PRN PRN Reason: Pain, severe (8-10) Last Admin: 11/23/17 00:29 Dose: 0.5 mg Labetalol HCl (Trandate) 300 mg PO TID [facility] Last Admin: 11/22/17 17:33 Dose: 300 mg Levalbuterol HCl (Xopenex) 1.25 mg IH TIDRESP [facility] Last Admin: 11/22/17 19:22 Dose: 1.25 mg Levetiracetam (Keppra) 500 mg PO BID [facility] Last Admin: 11/22/17 17:33 Dose: 500 mg Levothyroxine Sodium (Synthroid) 75 mcg PO 0600 [facility] Last Admin: 11/22/17 05:31 Dose: 75 mcg Lisinopril (Zestril) 40 mg PO DAILY [facility] Last Admin: 11/22/17 09:43 Dose: 40 mg Lorazepam (Ativan) 2 mg IVP Q6H PRN; Protocol PRN Reason: Anxiety Nifedipine (Procardia Xl) 90 mg PO DAILY [facility] Last Admin: 11/22/17 09:43 Dose: 90 mg Ondansetron HCl (Zofran Inj) 4 mg IVP Q6H PRN PRN Reason: Nausea/Vomiting Last Admin: 11/23/17 00:30 Dose: 4 mg Pantoprazole Sodium (Protonix Ec Tab) 40 mg PO 0600 [facility] Last Admin: 11/22/17 05:31 Dose: 40 mg Polyethylene Glycol (Miralax) 17 gm PO BID [facility] Last Admin: 11/22/17 17:34 Dose: 17 gm Sevelamer HCl (Renagel) 1,600 mg PO 0800,1200,1800 [facility] Last Admin: 11/22/17 17:33 Dose: 1,600 mg - Labs Labs: 11/21/17 14:30 11/21/17 14:30 PT 11.3 SECONDS (9.4-12.5) 11/18/17 10:50 INR 0.98 (0.93-1.08) 11/18/17 10:50 APTT 20.8 Seconds (25.1-36.5) L 11/18/17 10:50 - Constitutional Appears: Well, No Acute Distress - Head Exam Head Exam: NORMAL INSPECTION - Eye Exam Eye Exam: Normal appearance Pupil Exam: NORMAL ACCOMODATION - ENT Exam ENT Exam: Mucous Membranes Moist, Normal Exam - Respiratory Exam Respiratory Exam: Decreased Breath Sounds, Clear to Ausculation Bilateral, NORMAL BREATHING PATTERN - Cardiovascular Exam Cardiovascular Exam: REGULAR RHYTHM, +S1, +S2 - GI/Abdominal Exam GI & Abdominal Exam: Soft, Normal Bowel Sounds - Extremities Exam Extremities Exam: Normal Capillary Refill - Neurological Exam Neurological Exam: Alert, Awake - Psychiatric Exam Psychiatric exam: Normal Affect - Skin Skin Exam: Intact, Normal Color, Warm Assessment and Plan - Assessment and Plan (Free Text) Assessment: IMPRESSION: Cardiac evaluation for chest pain, uncontrolled hypertension, ruled out code STEMI, 57 year old female presented to the ER with uncontrolled hypertension with past medical history of Seizure disorder, PVD ESRD on Hemodialysis. She was in ICU for hypertensive crisis. Plan: Cardiac status stable Controlled BP and heart rate Continue amlodipine 10 mg daily,catapres 0.2 mg TID, Labetolol 300 mg TID, Zestril 40 mg daily and Procardia XL 90 mg daily Continue current treatment Will follow up. Plan and treatment reviewed with Dr. Ontiveros
[2017-11-23] MEDS: Pantoprazole 40 mg EC Tab PO SCH (06:10)
[2017-11-23] MEDS: Levothyroxine 75 MCG TAB PO SCH (06:10)
[2017-11-23] MEDS: Levalbuterol 1.25 MG/3 ML Inhal Soln UD IH SCH ×3 (07:33→19:57)
[2017-11-23] MEDS: POLYETHYLENE GLYCOL 3350 17 GM/Dose PACKET PO SCH ×2 (09:49→20:16)
[2017-11-23] MEDS: NIFEdipine 90 mg ER Tab PO SCH (09:50)
--- NOTE | 2017-11-23 12:04 | CP.PCM.PN ---
Subjective - Date & Time of Evaluation Date of Evaluation: 11/23/17 Time of Evaluation: 12:00 - Subjective Subjective: Podiatry Progress Note - Dr. Blanton 57 y/o female seen and examined at bedside for right leg superficial ulceration. Pt says the pain in the right leg is improving. States her only pedal complaint at present is her long painful toenails. Admits that she refrains from cutting them herself because she knows her blood supply is poor. Denies any F/C/N/V/CP/SOB. Objective - Vital Signs/Intake and Output Vital Signs (last 24 hours): Temp Pulse Resp BP Pulse Ox 98.4 F 89 20 155/76 H 100 11/23/17 08:28 11/23/17 10:00 11/23/17 08:28 11/23/17 09:51 11/23/17 08:28 Intake and Output: 11/23/17 11/23/17 06:59 18:59 Intake Total 660 Output Total 0 Balance 660 - Medications Medications: Current Medications Acetaminophen (Tylenol 325mg Tab) 650 mg PO Q6H PRN PRN Reason: Pain, Mild (1-3) Amlodipine Besylate (Norvasc) 10 mg PO DAILY [facility] Last Admin: 11/23/17 09:49 Dose: 10 mg Clonidine HCl (Catapres) 0.2 mg PO TID [facility] Last Admin: 11/23/17 09:48 Dose: 0.2 mg Docusate Sodium (Colace) 100 mg PO TID [facility] Last Admin: 11/23/17 09:49 Dose: 100 mg Heparin Sodium (Porcine) (Heparin) 2,200 units ICA TTS [facility] Last Admin: 11/21/17 17:16 Dose: 2,200 units Hydromorphone HCl (Dilaudid) 0.5 mg IVP Q4H PRN PRN Reason: Pain, severe (8-10) Last Admin: 11/23/17 06:10 Dose: 0.5 mg Labetalol HCl (Trandate) 300 mg PO TID [facility] Last Admin: 11/23/17 09:51 Dose: 300 mg Levalbuterol HCl (Xopenex) 1.25 mg IH TIDRESP [facility] Last Admin: 11/23/17 07:33 Dose: 1.25 mg Levetiracetam (Keppra) 500 mg PO BID [facility] Last Admin: 11/23/17 09:49 Dose: 500 mg Levothyroxine Sodium (Synthroid) 75 mcg PO 0600 [facility] Last Admin: 11/23/17 06:10 Dose: 75 mcg Lisinopril (Zestril) 40 mg PO DAILY [facility] Last Admin: 11/23/17 09:52 Dose: 40 mg Lorazepam (Ativan) 2 mg IVP Q6H PRN; Protocol PRN Reason: Anxiety Nifedipine (Procardia Xl) 90 mg PO DAILY [facility] Last Admin: 11/23/17 09:50 Dose: 90 mg Ondansetron HCl (Zofran Inj) 4 mg IVP Q6H PRN PRN Reason: Nausea/Vomiting Last Admin: 11/23/17 06:10 Dose: 4 mg Pantoprazole Sodium (Protonix Ec Tab) 40 mg PO 0600 [facility] Last Admin: 11/23/17 06:10 Dose: 40 mg Polyethylene Glycol (Miralax) 17 gm PO BID [facility] Last Admin: 11/23/17 09:49 Dose: 17 gm Sevelamer HCl (Renagel) 1,600 mg PO 0800,1200,1800 [facility] Last Admin: 11/23/17 09:50 Dose: 1,600 mg - Labs Labs: 11/21/17 14:30 11/21/17 14:30 PT 11.3 SECONDS (9.4-12.5) 11/18/17 10:50 INR 0.98 (0.93-1.08) 11/18/17 10:50 APTT 20.8 Seconds (25.1-36.5) L 11/18/17 10:50 - Constitutional Appears: Well, Non-toxic, No Acute Distress - Extremities Exam Additional comments: Right lower extremity focused examination: Vasc: DP/PT pulses palpable 2/4 B/L. Skin temperature warm to warm from proximal to distal. CFT < 3 seconds to all digits B/L. No pedal edema noted. 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 No woo-wound erythema, no malodor, no purulence, no tunneling, tracking, undermining, probe to bone or fluctuance. No maceration, xerosis, abnormal pigmentation or abnormal growths noted to b/l LE. Elongated dystrophic thickened toenails with subungual debris x 10. Neuro: Epicritic and protective sensation grossly intact B/L. Ortho: Mild-moderate tenderness to palpation of right leg ulceration. 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 Blanton Labs and vitals reviewed- afebrile, WBC 2.6 Ulceration cleansed with sterile saline Optifoam dressing applied to R leg ulcer Aseptic excisional debridement of elongated painful toenails x 10 with sterile nippers Pt tolerated procedure without incident Pt is stable for discharge from podiatry standpoint Will continue to monitor while patient remains in house Upon discharge, pt to follow up with Dr. Blanton/Reanna in the wound care center
--- NOTE | 2017-11-23 13:39 | PN ---
DATE: 11/23/2017 SUBJECTIVE: The patient has no complaints of any chest pain. No shortness of breath. No headaches. She that she is going to have a port placed do not sign her schedule according to the nurse. PHYSICAL EXAMINATION: VITAL SIGNS: Temperature is 98.4, pulse of 69, blood pressure 155/76, respirations 20. GENERAL: The patient is lying in bed, flat, comfortable. HEENT: No oral lesion. Anicteric sclerae. Moist mucosa. NECK: No JVD, adenopathy, or thyromegaly. CARDIOVASCULAR: S1 and S2, regular. No murmurs, rubs, or gallops. LUNGS: Clear to auscultation bilaterally. No wheeze, rales, or rhonchi. ABDOMEN: Bowel sounds are positive, soft, nontender and nondistended. EXTREMITIES: No cyanosis, clubbing or edema. ASSESSMENT: 1. End-stage renal disease, on hemodialysis. 2. Poor intravenous access. 3. Hypertension. 4. Peripheral arterial disease, status post bypass. 5. Secondary hyperparathyroidism. 6. Hypothyroidism. 7. Pulmonary hypertension. 8. Seizure disorder. 9. Hypertensive emergency, improved. 10. Nausea, improved. PLAN: The patient had an episode of nausea yesterday. She was given Zofran. She is on MiraLax for constipation. She is going to with Norvasc for hypertension. She is on Procardia. She is on Synthroid for hypothyroidism. The patient is lisinopril for hypertension. Jose Richards MD
[2017-11-23] MEDS ORDERED: Midazolam 2 MG/2 ML VIAL ONE ×3 (15:41→17:28)
[2017-11-23] MEDS ORDERED: Lidocaine 2% Inj (20ml) ONE ×2 (15:41→16:52)
--- NOTE | 2017-11-23 16:39 | PN ---
DATE: SUBJECTIVE: The patient is currently seen ambulating in the room. She anticipates having a port placed in her left chest wall early afternoon and then being discharged home. Her next dialysis is scheduled for tomorrow. The patient has had no symptoms and her blood pressure control has improved with compliance with her oral medications. MEDICATIONS: List reviewed. The patient is currently on Ativan, clonidine, Colace, p.r.n. Dilaudid, heparin, Keppra, Mirapex, Norvasc, Procardia, Protonix, Renagel, Synthroid, Trandate, Tylenol p.r.n., Xopenex p.r.n., Zestril and Zofran p.r.n. OBJECTIVE: INTAKE AND OUTPUT: Intake 660, output 0. VITAL SIGNS: Blood pressure presently is 155/76, pulse is 89, temperature is 98.4, respiratory rate is 16. HEENT: Normocephalic, atraumatic. Conjunctivae pale. Sclerae nonicteric. NECK: Supple. No neck vein distention. CHEST: Clear to auscultation and percussion. No rales, rhonchi or wheezing. She has right chest wall PermCath. CARDIOVASCULAR: Regular rate and rhythm. No S3, no S4, no rub. MR/TR/AI. ABDOMEN: Soft. Bowel sounds normal. No rebound, guarding or masses. EXTREMITIES: Dressing over her right lower leg. Clotted AV fistula, right upper extremity. Right chest wall PermCath. No lower extremity cyanosis, clubbing or edema. LABORATORY DATA AND IMAGING: No recent labs. Last labs were done when was on pre-dialysis, on 11/21. ASSESSMENT: 1. Status post episode of severe uncontrolled hypertension with hypertensive urgency. This is associated with chest pain, diaphoresis, nausea, vomiting and shortness of breath. The patient had an excellent response to initially IV Tridil and then IV Cardene. Of note, back on her blood pressure medication with compliance, with her diet being regulated in the hospital, her blood pressure control has significantly improved. 2. History of end-stage renal disease, next dialysis is scheduled for 11/24/2017 as an outpatient. 3. History of mild hyperkalemia. This has resolved with dialysis and compliance with diet. 4. History of atherosclerotic heart disease, status post percutaneous transluminal coronary angioplasty and stent. 5. History of mild valvular heart disease, congestive heart failure, history of myocardial infarction, all stable. 6. History of chronic obstructive pulmonary disease secondary to long history of cigarette smoking. 7. History of peripheral vascular disease. Status post foreskin graft to her right lower leg nonhealing ulcer, this appears to have been healing. The patient will be followed by her operating surgeon. 8. History of secondary hyperparathyroidism, patient will continue binder therapy. 9. History of hypothyroidism, patient will continue on thyroid replacement therapy. 10. Past history of mild glucose intolerance. PLAN: 1. Port to be done earlier this afternoon with discharge home. 2. I have stressed the patient the fact that she must be compliant with her outpatient blood pressure medications. I did discuss with her she will likely not need Norvasc and Procardia, but for right now, she appears to be tolerating this combination well. 3. We will attempt to lower the patient's dry weight with dialysis with a goal of improving her blood pressure control and avoiding further hospitalizations. Sampson Hutchins MD
[2017-11-23] MEDS ORDERED: Iohexol 350mgl/ml 50 ML ONE (17:47)
[2017-11-23] MEDS ORDERED: DiphenhydrAMINE 50 mg/ml Inj ONE (17:47)
--- NOTE | 2017-11-23 18:00 | PN ---
DATE: 11/23/2017 REASON FOR CONSULTATION: Followup chest pain, rule out ME; uncontrolled hypertension; cardiac evaluation. SUBJECTIVE: The patient denies any chest pain, but on deep palpation still feels the chest pain; much better than before. No chest pain. No shortness of breath or any palpitation. OBJECTIVE: GENERAL: Not in apparent distress. VITAL SIGNS: Temperature afebrile, heart rate 89, blood pressure 155/76. HEENT: PERRLA. Extraocular muscles intact. NECK: Supple. No carotid bruit or thyromegaly. CHEST: Clear to auscultation. HEART: S1 and S2 regular. ABDOMEN: Soft. EXTREMITIES: Clubbing and cyanosis negative. LABORATORY DATA: Blood workup as follows: WBC 2.3, hemoglobin 8.3, hematocrit 27.8, platelet count 200. Chemistry shows sodium 140, potassium 4.2, chloride 90, carbo dioxide 30, anion gap of 16, BUN 33, creatinine 4.4. IMPRESSION: Coronary artery disease, status post percutaneous transluminal coronary angioplasty of obtuse marginal 1 on 01/2017; history of peripheral arterial disease; history of mesenteric angiogram and no ischemia; history of carotid artery stenting; history of lower extremity femoral-popliteal bypass; end-stage renal disease, on dialysis; and hypertensive emergency. Patient admitted with blood pressure of 230/140, now this is stabilized, no evidence of acute myocardial infarction. RECOMMENDATIONS: Continue clonidine. Continue dialysis. Continue amlodipine 10 mg daily. Continue levothyroxine. Continue labetalol. Continue lisinopril. We will follow with you. DISCHARGE PLANNING: No further cardiac workup is planned. Patient with recent stress test and echo. Thank you, Dr. Coffman, for providing us the opportunity in taking care of the patient, Renetta Thakur. Pj Ontiveros MD
[2017-11-23 18:46] VITALS: O2SAT 99
--- NOTE | 2017-11-23 20:29 | VASCULAR ---
PROCEDURE: Right subclavian venous access port placement CLINICAL HISTORY: Dialysis. Extremely limited venous access. Needs port PHYSICIAN(S): Lucio Thomas M.D. TECHNIQUE: The relative risks and indications of the procedure were explained to the patient and consent obtained. Preliminary fluoroscopy and ultrasound was performed. The right internal jugular vein is patent with a dialysis catheter present. Stents are present in the right axillo and subclavian veins. The left internal jugular vein is atretic in appears to occlude near the innominate vein. Subsequently access through the patient's right axillo subclavian stent was selected. The right neck and chest was prepped and draped usual sterile fashion. Conscious sedation monitoring were provided throughout the procedure by a nurse. Under ultrasound guidance the right axillo subclavian stent was punctured with a micropuncture set. 0.035 glidewire was advanced to the stenotic right innominate vein containing the dialysis catheter. The stenosis was crossed with a bearing sting catheter and glidewire. A support wire was placed in the IVC. Right innominate vein and right axillo subclavian stent were dilated with a 4 mm balloon to facilitate catheter placement. The peel-away sheath was placed. An 8 [place] catheter was advanced with its tip in the right atrium. A pocket was developed on the right anterior chest. The catheter was trimmed and attached to the port. The port aspirate and inject easily. The port was placed the pocket and closed in 2 layers. The patient tolerated the procedure well . IMPRESSION: Ultrasound and fluoroscopically placed right subclavian vein venous access port as described above
[2017-11-24] MEDS: HYDROmorphone 0.5 mg/0.5 ml ISec IVP PRN ×4 (01:53→14:31)
[2017-11-24] MEDS: Pantoprazole 40 mg EC Tab PO SCH (05:47)
[2017-11-24] MEDS: Levothyroxine 75 MCG TAB PO SCH (05:47)
[2017-11-24 07:28] LABS: BASO # 0.03 K/mm3 (0.0-2.0); BASO % 0.5 % (0.0-3.0); EOS # 0.4 (0.0-0.7); EOS % 5.7 % (1.5-5.0); GRAN # 4.35 (1.4-6.5); GRAN % 66.6 % (50.0-68.0); HEMOGLOBIN 8.2 g/dL (12.0-16.0); LYMPH # 1.3 (1.2-3.4); LYMPH % 19.5 % (22.0-35.0); MEAN CELL VOLUME 94.9 fl (80.0-105.0); MEAN CORPUSCULAR HEMOGLOBIN 27.7 pg (25.0-35.0); MEAN CORPUSCULAR HGB CONC 29.2 g/dl (31.0-37.0); MEAN PLATELET VOLUME 10.6 fl (7.0-11.0); MONO # 0.5 (0.1-0.6); MONO % 7.7 % (1.0-6.0); RBC 2.96 10^6/uL (3.5-6.1); RED CELL DISTRIBUTION WIDTH 16.4 % (11.5-14.5); WHITE BLOOD COUNT 6.5 10^3/ul (4.5-11.0)
[2017-11-24] MEDS: Levalbuterol 1.25 MG/3 ML Inhal Soln UD IH SCH ×2 (07:50→13:37)
[2017-11-24 08:12] LABS: ALB/GLOB RATIO 1.7 (1.1-1.8); ALBUMIN 3.5 g/dL (3.0-4.8); CALCIUM 9.9 mg/dL (8.4-10.5)
[2017-11-24] MEDS ORDERED: Doxercalciferol 4 mcg/2 ml Inj IVP ONE (08:20)
[2017-11-24 08:38] VITALS: RESP 20; TEMP 98.7
[2017-11-24] MEDS: POLYETHYLENE GLYCOL 3350 17 GM/Dose PACKET PO SCH (10:33)
[2017-11-24] MEDS: NIFEdipine 90 mg ER Tab PO SCH (10:37)
--- NOTE | 2017-11-24 11:44 | CP.PCM.PN ---
<Whit Angeles - Last Filed: 11/24/17 11:45> Subjective - Date & Time of Evaluation Date of Evaluation: 11/24/17 Time of Evaluation: 11:44 - Subjective Subjective: Podiatry Progress Note - Dr. Forte 57 y/o female seen and examined at bedside this morning for right leg superficial ulceration. Pt says she is not having any pain today in the right leg. She states she is so pleased with the results of the leg graft and that she was able to salvage the limb. Denies drainage from the wound or strikethrough on the bandage. Denies any F/C/N/V/CP/SOB. Objective - Vital Signs/Intake and Output Vital Signs (last 24 hours): Temp Pulse Resp BP Pulse Ox 98.7 F 79 20 190/80 H 99 11/24/17 08:38 11/24/17 10:37 11/24/17 08:38 11/24/17 10:37 11/24/17 08:38 Intake and Output: 11/24/17 11/24/17 06:59 18:59 Intake Total 780 Balance 780 - Medications Medications: Current Medications Acetaminophen (Tylenol 325mg Tab) 650 mg PO Q6H PRN PRN Reason: Pain, Mild (1-3) Amlodipine Besylate (Norvasc) 10 mg PO DAILY [facility] Last Admin: 11/24/17 10:37 Dose: 10 mg Clonidine HCl (Catapres) 0.2 mg PO TID [facility] Last Admin: 11/24/17 10:37 Dose: 0.2 mg Docusate Sodium (Colace) 100 mg PO TID [facility] Last Admin: 11/24/17 10:33 Dose: 100 mg Heparin Sodium (Porcine) (Heparin) 2,200 units ICA TTS [facility] Last Admin: 11/21/17 17:16 Dose: 2,200 units Hydromorphone HCl (Dilaudid) 0.5 mg IVP Q4H PRN PRN Reason: Pain, severe (8-10) Last Admin: 11/24/17 10:33 Dose: 0.5 mg Labetalol HCl (Trandate) 300 mg PO TID [facility] Last Admin: 11/24/17 10:37 Dose: 300 mg Levalbuterol HCl (Xopenex) 1.25 mg IH TIDRESP [facility] Last Admin: 11/24/17 07:50 Dose: Not Given Levetiracetam (Keppra) 500 mg PO BID [facility] Last Admin: 11/24/17 10:33 Dose: 500 mg Levothyroxine Sodium (Synthroid) 75 mcg PO 0600 [facility] Last Admin: 11/24/17 05:47 Dose: 75 mcg Lisinopril (Zestril) 40 mg PO DAILY [facility] Last Admin: 11/24/17 10:33 Dose: 40 mg Lorazepam (Ativan) 2 mg IVP Q6H PRN; Protocol PRN Reason: Anxiety Nifedipine (Procardia Xl) 90 mg PO DAILY [facility] Last Admin: 11/24/17 10:37 Dose: 90 mg Ondansetron HCl (Zofran Inj) 4 mg IVP Q6H PRN PRN Reason: Nausea/Vomiting Last Admin: 11/23/17 06:10 Dose: 4 mg Pantoprazole Sodium (Protonix Ec Tab) 40 mg PO 0600 [facility] Last Admin: 11/24/17 05:47 Dose: 40 mg Polyethylene Glycol (Miralax) 17 gm PO BID [facility] Last Admin: 11/24/17 10:33 Dose: 17 gm Sevelamer HCl (Renagel) 1,600 mg PO 0800,1200,1800 [facility] Last Admin: 11/24/17 10:38 Dose: 1,600 mg - Labs Labs: 11/24/17 07:20 11/24/17 07:20 PT 11.3 SECONDS (9.4-12.5) 11/18/17 10:50 INR 0.98 (0.93-1.08) 11/18/17 10:50 APTT 20.8 Seconds (25.1-36.5) L 11/18/17 10:50 - Constitutional Appears: Well, Non-toxic, No Acute Distress - Extremities Exam Additional comments: Right lower extremity focused examination: Vasc: DP/PT pulses palpable 2/4 B/L. Skin temperature warm to warm from proximal to distal. CFT < 3 seconds to all digits B/L. No pedal edema noted. Derm: Superficial uceration secondary to calciphylaxis seen on medial calf of right leg measuring roughly 3.0 cm x 1.7 cm x 0.1 cm with granular wound base and hyperkeratotic wound borders. Epithelialization noted to roof of wound with positive sings of healing. No woo-wound erythema, no malodor, no purulence, no tunneling, tracking, undermining, probe to bone or fluctuance. No maceration, xerosis, abnormal pigmentation or abnormal growths noted to b/l LE. Neuro: Epicritic and protective sensation grossly intact B/L. 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 Forte Labs and vitals reviewed- afebrile, WBC 6.5 Ulceration cleansed with sterile saline Optifoam dressing applied to R leg ulcer Pt is stable for discharge from podiatry standpoint Will continue to monitor while patient remains in house Upon discharge, pt to follow up with Dr. Blanton/Reanna in the wound care center <Dougie Forte - Last Filed: 11/24/17 11:52> Objective - Vital Signs/Intake and Output Vital Signs (last 24 hours): Temp Pulse Resp BP Pulse Ox 98.7 F 79 20 190/80 H 99 11/24/17 08:38 11/24/17 10:37 11/24/17 08:38 11/24/17 10:37 11/24/17 08:38 Intake and Output: 11/24/17 11/24/17 06:59 18:59 Intake Total 780 Balance 780 - Medications Medications: Current Medications Acetaminophen (Tylenol 325mg Tab) 650 mg PO Q6H PRN PRN Reason: Pain, Mild (1-3) Amlodipine Besylate (Norvasc) 10 mg PO DAILY [facility] Last Admin: 11/24/17 10:37 Dose: 10 mg Clonidine HCl (Catapres) 0.2 mg PO TID [facility] Last Admin: 11/24/17 10:37 Dose: 0.2 mg Docusate Sodium (Colace) 100 mg PO TID [facility] Last Admin: 11/24/17 10:33 Dose: 100 mg Heparin Sodium (Porcine) (Heparin) 2,200 units ICA TTS [facility] Last Admin: 11/21/17 17:16 Dose: 2,200 units Hydromorphone HCl (Dilaudid) 0.5 mg IVP Q4H PRN PRN Reason: Pain, severe (8-10) Last Admin: 11/24/17 10:33 Dose: 0.5 mg Labetalol HCl (Trandate) 300 mg PO TID [facility] Last Admin: 11/24/17 10:37 Dose: 300 mg Levalbuterol HCl (Xopenex) 1.25 mg IH TIDRESP [facility] Last Admin: 11/24/17 07:50 Dose: Not Given Levetiracetam (Keppra) 500 mg PO BID [facility] Last Admin: 11/24/17 10:33 Dose: 500 mg Levothyroxine Sodium (Synthroid) 75 mcg PO 0600 [facility] Last Admin: 11/24/17 05:47 Dose: 75 mcg Lisinopril (Zestril) 40 mg PO DAILY [facility] Last Admin: 11/24/17 10:33 Dose: 40 mg Lorazepam (Ativan) 2 mg IVP Q6H PRN; Protocol PRN Reason: Anxiety Nifedipine (Procardia Xl) 90 mg PO DAILY [facility] Last Admin: 11/24/17 10:37 Dose: 90 mg Ondansetron HCl (Zofran Inj) 4 mg IVP Q6H PRN PRN Reason: Nausea/Vomiting Last Admin: 11/23/17 06:10 Dose: 4 mg Pantoprazole Sodium (Protonix Ec Tab) 40 mg PO 0600 [facility] Last Admin: 11/24/17 05:47 Dose: 40 mg Polyethylene Glycol (Miralax) 17 gm PO BID [facility] Last Admin: 11/24/17 10:33 Dose: 17 gm Sevelamer HCl (Renagel) 1,600 mg PO 0800,1200,1800 [facility] Last Admin: 11/24/17 10:38 Dose: 1,600 mg - Labs Labs: 11/24/17 07:20 11/24/17 07:20 PT 11.3 SECONDS (9.4-12.5) 11/18/17 10:50 INR 0.98 (0.93-1.08) 11/18/17 10:50 APTT 20.8 Seconds (25.1-36.5) L 11/18/17 10:50 Attending/Attestation - Attestation I have personally seen and examined this patient.: Yes I have fully participated in the care of the patient.: Yes I have reviewed all pertinent clinical information, including history, physical exam and plan: Yes
[2017-11-24 14:37] VITALS: BP 159/76; PULSE 80
--- NOTE | 2017-11-24 15:50 | PN ---
DATE: REASON FOR CONSULTATION AND FOLLOWUP: Follow up chest pain, rule out RI, uncontrolled hypertension, cardiac evaluation. SUBJECTIVE: The patient denies any chest pain, shortness of breath, or any palpitation. OBJECTIVE: GENERAL: Not in apparent distress. VITAL SIGNS: Temperature afebrile, heart rate 79, and blood pressure 190/80. HEENT: PERRLA, intact. NECK: Supple. No carotid bruit or thyromegaly. CHEST: Clear to auscultation. HEART: S1 and S2, regular. ABDOMEN: Soft. EXTREMITIES: Clubbing and cyanosis negative. LABORATORY DATA: Blood workup as follows: WBC 6.5, hemoglobin 8.8, hematocrit 28.1, and platelet count 201. Chemistry shows sodium 140, potassium 5.5, chloride 99, carbon dioxide of 27, anion gap of 20. BUN creatinine 6.4. IMPRESSION: Uncontrolled hypertension; no evidence of acute myocardial infarction; history of coronary artery disease; diabetes; hypertension; hyperlipidemia; end-stage renal disease, on dialysis; history of carotid artery stenting; history of percutaneous transluminal coronary angioplasty of obtuse marginal on 09/11/2016. Chronic obstructive pulmonary disease, status post right lower extremity bypass. History of mesenteric angiogram, normal. RECOMMENDATIONS: Aggressive control of blood pressure. The patient is going for dialysis. After dialysis, reassess the blood pressure. Continue monitor blood pressure and aggressive control of blood pressure. No invasive cardiac workup is started at this time. No evidence of acute RI. Continue amlodipine, continue nifedipine 90 mg daily, continue labetalol, continue clonidine. We will follow with you. CVS status stable. Thank you Dr. Coffman for providing us the opportunity in taking care of the patient, Renetta Thakur. Pj Ontiveros MD
--- NOTE | 2017-11-24 22:03 | PN ---
DATE: SUBJECTIVE: Patient is currently seen dressing to go home. She had an uneventful hemodialysis today with removal of 3000 mL of fluid. Her blood pressure has remained stable over the last 24 hours. Patient had a port placed in her right chest wall in proximity to her right PermCath. MEDICATIONS: Medication list reviewed. Patient is currently on Ativan, clonidine, Colace, Dilaudid, heparin, Keppra, Miralax, Norvasc, Procardia, Protonix, Renagel, Synthroid, Trandate, Tylenol, Xopenex, Zestril and Zofran. OBJECTIVE: INTAKE/OUTPUT: Intake 1080, output 0. VITAL SIGNS: Last blood pressure 159/76, highest blood pressure is 190/80, all within her range and acceptable; heart rate is 80, respiratory rate is 16. She is afebrile. HEENT: Shows her to be normocephalic, atraumatic. Conjunctivae remain pale. Sclerae nonicteric. NECK: Supple. No neck vein distention. CHEST: Clear to auscultation and percussion. No rales, rhonchi or wheezing. She has a right chest wall PermCath and a chest wall port. CARDIOVASCULAR: Regular rate and rhythm. No S3, no S4, no rub. MR/TR/AI. ABDOMEN: Soft. Bowel sounds normal. No rebound, guarding or masses. EXTREMITIES: Dressing over her right lower leg. Clotted AV fistula, right upper extremity. No lower extremity cyanosis, clubbing or edema. LABORATORY DATA AND IMAGING: CBC, today white blood cell count 6.5, hemoglobin stable 8.2, platelet count is 201,000. Chemistry shows potassium of 5.5 with a sodium of 140, BUN 79, creatinine 6.4. Glucose is 91. Magnesium is 2.4 with a calcium of 9.9 and phosphorous of 4.1. ASSESSMENT: 1. Status post episode of severe uncontrolled hypertension with hypertensive urgency. This is associated with chest pain, diaphoresis, nausea, vomiting and shortness of breath. The patient responded initially to IV Tridil and then IV Cardene. She is back on multiple oral blood pressure medications with acceptable blood pressure control. She will never be perfect in terms of her blood pressure control, but as long as she remains compliant in taking her blood pressure medications in the outpatient setting and she continues to be dialyzed after her drive away, she should be able to avoid further hospitalizations for uncontrolled hypertension. 2. History of end-stage renal disease. Patient will continue Thursday, , Thursday dialysis. 3. History of mild hyperkalemia. Patient will continue a renal diet and dialysis. 4. History of atherosclerotic heart disease, status post percutaneous transluminal coronary angioplasty and stent. 5. History of mild valvular heart disease, congestive heart failure, history of myocardial infarction, all stable. 6. History of chronic obstructive pulmonary disease secondary to long history of cigarette smoking. Patient is currently off cigarettes. 7. History of peripheral vascular disease. Status post foreskin graft to her right lower leg nonhealing ulcer, this appears to have worked fine and the area seems to be healing. 8. History of secondary hyperparathyroidism, patient will continue binder therapy. 9. History of hypothyroidism, patient will continue thyroid replacement therapy. 10. Mild glucose intolerance. Patient will reduce carbohydrates in her diet and avoid concentrated sweets. PLAN: Patient will be discharged to home in the next 1-2 hours. She has a working new right port in her right chest wall area. She will continue dialysis through her right-sided PermCath. In light of the fact that patient is agreeable to being compliant with her blood pressure medicine, I would hope that she has few admissions to the hospital for uncontrolled hypertension. Though we do not commonly do this, patient will likely be discharged back on Norvasc and Procardia. Sampson Hutchins MD
--- NOTE | 2017-11-25 09:31 | DS ---
HISTORY OF PRESENT ILLNESS: Patient is 57-year-old who came in with chest pain, nausea. She was found to have blood pressure of 215/120. She was started on nitroglycerin. Plan was to start nitroglycerin drip, but patient has very poor access, she was started on nitro patch. She was given antihypertensive, did well. Dr. Lucio Thomas was involved and had Port-A-Cath placed today, doing well. Complained of some discomfort to the site where Port-A-Cath is placed. No nausea or vomiting or diarrhea. PHYSICAL EXAMINATION: VITAL SIGNS: She is afebrile, pulse 79, respiration 18, blood pressure 190/80. LUNGS: Bilateral good airflow. No rhonchi or crackle. HEART: S1 and S2 audible. ABDOMEN: Soft, nontender. No rebound, no guarding. NEUROLOGIC: Patient is awake, alert, oriented, communicative. LABORATORY EXAMINATION: WBC 6.5, hemoglobin 8.2, hematocrit 28.1, platelet of 201. Chemistry, sodium 140, potassium 5.5, chloride 99, CO2 of 27, BUN 79, creatinine 6.4, blood sugar 191. LFTs are within normal limits. ASSESSMENT: 1. Difficult to control hypertension. Patient on multiple medication. Compliance is questionable. 2. Peripheral vascular disease, status post bypass surgery in . 3. Pulmonary hypertension. 4. 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 5. Status post right carotid stenosis. 6. Chronic obstructive pulmonary disease. 7. History of heavy smoking in the past. 8. Peptic ulcer disease. 9. Hypothyroidism. So plan is patient is being discharged home today. She is on clonidine 0.2 three times a day. She is on Keppra because she has hypertensive encephalopathy and seizure last time on last admission. So plan is patient is being discharged home on lisinopril 40 mg daily. She is on labetalol 300 three times a day, levothyroxine 75 mcg daily, Renagel three times a day, nifedipine 90 mg daily, amlodipine 10 mg daily, Keppra 500 twice a day, and clonidine 0.2 three times a day. She will be discharged today. Initial plan was to send her to TCU, but because of her insurance reason, she has a copay that she is not able to afford, so she opted to be discharged home. Brittany Coffman MD [facility] # [phone]
== END 2017-11-24 17:10 | disposition home health service (06) | DRG 291 ==
LOC: ED 10:29 → ERH 12:05 → ICU 13:35 → 3RNO 11-19 20:56
PROVIDERS: ADMIT Internal Medicine; ATTEND Internal Medicine
PROC: 5A1D70Z Performance of Urinary Filtration, Intermittent, Less than 6 Hours Per Day (ICD-10-PCS; 2017-11-21)
PROC: 05H533Z Insertion of Infusion Device into Right Subclavian Vein, Percutaneous Approach (ICD-10-PCS; 2017-11-23)
PROC: B546ZZA Ultrasonography of Right Subclavian Vein, Guidance (ICD-10-PCS; 2017-11-23)
PROC: B513ZZA Fluoroscopy of Right Jugular Veins, Guidance (ICD-10-PCS; 2017-11-23)
PROC: 5A1D70Z Performance of Urinary Filtration, Intermittent, Less than 6 Hours Per Day (ICD-10-PCS; principal; 2017-11-24)
DX: I13.2 Hypertensive heart and chronic kidney disease with heart failure and with stage 5 chronic kidney disease, or end stage renal disease (principal); N18.6 End stage renal disease; I67.4 Hypertensive encephalopathy; E11.22 Type 2 diabetes mellitus with diabetic chronic kidney disease; E11.51 Type 2 diabetes mellitus with diabetic peripheral angiopathy without gangrene; E83.59 Other disorders of calcium metabolism; I27.20 Pulmonary hypertension, unspecified; I16.1 Hypertensive emergency; L97.919 Non-pressure chronic ulcer of unspecified part of right lower leg with unspecified severity; N25.81 Secondary hyperparathyroidism of renal origin; E03.9 Hypothyroidism, unspecified; E05.90 Thyrotoxicosis, unspecified without thyrotoxic crisis or storm; E11.622 Type 2 diabetes mellitus with other skin ulcer; E78.5 Hyperlipidemia, unspecified; E87.5 Hyperkalemia; G40.909 Epilepsy, unspecified, not intractable, without status epilepticus; G47.30 Sleep apnea, unspecified; H91.91 Unspecified hearing loss, right ear; I25.10 Atherosclerotic heart disease of native coronary artery without angina pectoris; I25.2 Old myocardial infarction; I50.9 Heart failure, unspecified; J44.9 Chronic obstructive pulmonary disease, unspecified; K27.9 Peptic ulcer, site unspecified, unspecified as acute or chronic, without hemorrhage or perforation; Z79.02 Long term (current) use of antithrombotics/antiplatelets; Z79.899 Other long term (current) drug therapy; Z87.01 Personal history of pneumonia (recurrent); Z87.11 Personal history of peptic ulcer disease; Z87.891 Personal history of nicotine dependence; Z95.5 Presence of coronary angioplasty implant and graft; Z99.2 Dependence on renal dialysis

== ENCOUNTER 2017-11-28 12:03 | Emergency (ER) | payer MEDICARE, OTHER ==
[2017-11-28 12:16] VITALS: BMI 20.5
[2017-11-28 12:17] VITALS: RESP 18; TEMP 98
--- NOTE | 2017-11-28 12:26 | ED PDOC ---
Arrival/HPI - General Chief Complaint: Seizure Time Seen by Provider: 11/28/17 12:13 Historian: Patient, EMS - History of Present Illness Narrative History of Present Illness (Text): 11/28/17 12:22 pt p/w + sudden onset of right arm/leg shaking and frontal headaches this morning; pt was awaken by it; pt became alarmed that it might lead to her seizures or CVA; pt decided to come to ED for check up; pt has been seen/ treated in the ED on numerous occasions; pt states no fever/chills/sweats, no new cp/sob/palpitations, no new abd pain, no n/v, no new numbness/tingling; pt denied bowel changes; pt denied other complaints; pt is here for further eval. pt denied vision changes. PCP: [facility] pt is left hand dominate ESRD on dialysis - Tue/Thur/Sat right dialysis shunt right picc line/port-a cath pt lives at home with family Time/Duration: Prior to Arrival Symptom Onset: Sudden Symptom Course: Improving Activities at Onset: Rest, Other (sleeping) Context: Home Past Medical History - Provider Review Nursing Documentation Reviewed: Yes - Travel History Have you recently traveled outside [place] w/in the past 3 mons?: No - Past History Past History: No Previous - Infectious Disease Hx of Infectious Diseases: None - Tetanus Immunization Tetanus Immunization: Unknown - Reproductive Menopause: Yes Currently : No - Cardiac Hx Pacemaker: No - Pulmonary Hx Chronic Obstructive Pulmonary Disease (COPD): Yes - Neurological Hx Paralysis: No - HEENT Hx HEENT Disorder: Yes (hard of hearing,RIGHT EAR DEAF) Hx Blind: No Hx Cataracts: No Hx Deafness: No Hx Difficulty Chewing: No Hx Epistaxis: No Hx Glaucoma: No Hx Macular Degeneration: No Other/Comment: tinnitus, - Renal Hx Renal Failure: Yes - Endocrine/Metabolic Hx Hypothyroidism: Yes - Hematological/Oncological Hx Blood Transfusions: Yes - Integumentary Hx Dermatological Disorder: No (non healing sugical wound to right ankle) Other/Comment: r ankle wound,non healing surgical wound cared for by dr parada at wound center, wound 5.5 X 3.5 cm ,right buttocks red and open to air, SCARRED AREA.multiple skin discolorations to ble,EDEMA +1.Left thumb area with a 0.7 scabbed wound from rubbing to wheelchair. - Musculoskeletal/Rheumatological Hx Falls: Yes (recent frequent) - Gastrointestinal Hx Gastrointestinal Disorders: Yes (POOR APPETITE,DIVERTICULITIS,GASTROENTERITIS ,GASTRITIS) - Genitourinary/Gynecological Hx Genitourinary Disorders: Yes (ANURIC) - Psychiatric Hx Emotional Abuse: No Hx Physical Abuse: No Hx Substance Use: No - Past Surgical History Past Surgical History: Unable to Obtain - Surgical History Hx Mastectomy: No - Anesthesia Hx Anesthesia Reactions: No Hx Malignant Hyperthermia: No - Suicidal Assessment Feels Threatened In Home Enviroment: No Family/Social History - Physician Review Nursing Documentation Reviewed: Yes Family/Social History: No Known Family HX Smoking Status: Former Smoker Hx Alcohol Use: No Hx Substance Use: No Hx Substance Use Treatment: No Allergies/Home Meds Allergies/Adverse Reactions: Allergies ciprofloxacin Allergy (Verified 11/28/17 12:17) RASH hydralazine Allergy (Verified 11/28/17 12:17) RASH vomiting vancomycin Allergy (Verified 11/28/17 12:17) SHORTNESS OF BREATH palpitations ct dye Allergy (Uncoded 11/28/17 12:17) RASH Home Medications: Home Meds Medication Instructions Recorded Confirmed Lisinopril [Zestril] 40 mg PO DAILY 10/05/17 11/28/17 Sildenafil [Revatio] 20 mg PO DAILY 10/05/17 11/28/17 Clopidogrel [Plavix] 1 tab PO DAILY 11/18/17 11/28/17 Docusate [Colace] 1 cap PO TID 11/18/17 11/28/17 NIFEdipine ER [Procardia XL] 1 tab PO DAILY 11/18/17 11/28/17 Oxycodone HCl/Acetaminophen 1 tab PO QID PRN 11/18/17 11/28/17 [Endocet 10-325 mg Tablet] Review of Systems - Review of Systems Constitutional: Fatigue Eyes: Normal ENT: Normal Respiratory: Normal Cardiovascular: Normal Gastrointestinal: Normal Genitourinary Female: Normal Musculoskeletal: Normal Skin: Normal Neurological: Headache, Other (right arm/leg shaking) Endocrine: Normal Hemo/Lymphatic: Normal Psychiatric: Normal Physical Exam Vital Signs Reviewed: Yes (decr pulse ox) Vital Signs Temp Pulse Resp BP Pulse Ox 11/28/17 12:19 98.0 F 79 18 171/84 H 84 L 11/28/17 12:10 98.0 F 79 18 84 L Temperature: Afebrile Blood Pressure: Normal Pulse: Regular Respiratory Rate: Normal Appearance: Positive for: Non-Toxic, Uncomfortable, Other (mild cachectic; alert /awake, GCS = 15, oriented x 3, cooperative, follows command with ease, NAD, uncomfortable) Pain Distress: None Mental Status: Positive for: Alert and Oriented X 3 - Systems Exam Head: Present: Atraumatic, Normocephalic, Other (mild bi-temporal wasting) Pupils: Present: PERRL, Other (wearing eyeglasses, no nystagmus, no photophobia , sclera anciteric) Extroacular Muscles: Present: EOMI Conjunctiva: Present: Normal Ears: Present: Normal Mouth: Present: Other (dry oral mucosa, fair dentitions, no drooling/stridor, no dysphonia, uvula/tongue are midline) Pharnyx: Present: Normal Nose (External): Present: Atraumatic Nose (Internal): Present: Normal Inspection Neck: Present: Normal Range of Motion, Trachea Midline, Other (no step off, no nuchal rigidity). No: Meningeal Signs, MIDLINE TENDERNESS Respiratory/Chest: Present: Clear to Auscultation, Good Air Exchange, Other ( coarse breath sounds bibasiliar, no w/r/r, no tachypenia, no accessory muscle use noted). No: Respiratory Distress, Accessory Muscle Use Cardiovascular: Present: Regular Rate and Rhythm, Normal S1, S2, Other (+ right dialysis shunt (chest), right picc line). No: Murmurs Abdomen: Present: Normal Bowel Sounds, Other (thin female, no focal tenderness, no fernández's sign, no mcburney's point tenderness, no masses/rebound/guarding/ rigidity) Back: Present: Normal Inspection. No: CVA Tenderness, Midline Tenderness Upper Extremity: Present: Normal Inspection, Normal ROM, NORMAL PULSES, Neurovascularly Intact, Capillary Refill < 2s Lower Extremity: Present: Normal Inspection, NORMAL PULSES, Normal ROM, Neurovascularly Intact, Capillary Refill < 2 s Neurological: Present: GCS=15, CN II-XII Intact, Speech Normal, Other (NIH stroke scale ~ 0, No tremors/shakes noted b/l, follows command with ease, alert/ awake, oriented x 3) Skin: Present: Warm, Normal Color, Other (cap refill ~ 1 sec, no ulcerations, no petechiae; mild pallor) Psychiatric: Present: Alert, Oriented x 3 Medical Decision Making ED Course and Treatment: 11/28/17 12:24 Impression: right arm/leg shaking, pt is worried about ? seizure/cva i have consider all the differential diagnosis regarding pt's chief medical complaints/clinical findings, including but are not limited to: r/o CVA/seizure A/P: shaking/headaches - labs - iv - xray - ct - observe - supportive care 11/28/17 14:27 pt is not in any distress pt is comfortable pt states headache is improved pt tolerated po well pt will be going to her dialysis due today pt is made aware of her medical results pt will f/u as directed pt will be discharged home Dr Coffman contacted, made aware, agrees with ED mg/txt, will f/u with patient as outpt Re-evaluation Time: 14:26 Reassessment Condition: Improved - Lab Interpretations Lab Results: 11/28/17 12:30 11/28/17 12:30 Lab Results 11/28/17 12:30: PT 11.7, INR 1.02, APTT 29.6 11/28/17 12:30: WBC 5.6, RBC 3.16 L, Hgb 8.8 L, Hct 29.3 L, MCV 92.7, MCH 27.8, MCHC 30.0 L, RDW 16.2 H, Plt Count 206, MPV 10.9, Gran % 62.8, Lymph % (Auto) 24.6, Meagher % (Auto) 9.0 H, Eos % (Auto) 3.2, Baso % (Auto) 0.4, Gran # 3.50, Lymph # (Auto) 1.4, Meagher # (Auto) 0.5, Eos # (Auto) 0.2, Baso # (Auto) 0.02 11/28/17 12:30: Sodium 138, Potassium 5.4 H, Chloride 101, Carbon Dioxide 26, Anion Gap 17, BUN 55 H, Creatinine 5.6 H, Est GFR ( Amer) 9, Est GFR (Non -Af Amer) 8, Random Glucose 86, Calcium 9.8, Phosphorus 6.1 H, Magnesium 2.3 H, Total Bilirubin 0.3, AST 30, ALT 26, Alkaline Phosphatase 135 H, Troponin I 0.03 D, Total Protein 6.1, Albumin 3.7, Globulin 2.3, Albumin/Globulin Ratio 1.6 11/28/17 12:12: POC Glucose (mg/dL) 69 I have reviewed the lab results: Yes Interpretation: Abnormal lab values (chronic low h/h; chronic ESRD) - RAD Interpretation Narrative RAD Interpretations (Text): 11/28/17 13:56 CT of Head reviewed by radiologist, shows: HEMORRHAGE: No intracranial hemorrhage. BRAIN: Widespread white matter lucency is again appreciated throughout the cerebrum with the ebonie unaffected. Left cerebellar lobar infarction again appreciated on a chronic basis. No intracranial hemorrhage or definitive masses appreciated this time and there is no definite cortical edema. MRI is available for follow- up as clinically warranted. This pattern of white matter abnormality is nonspecific ended does not appear to favor anterior posterior components of the brain separately. PRES is still a definite possibility axis previously been suggested in prior imaging though vasculitis in even demyelination is an others remain possible. VENTRICLES: Unremarkable. No hydrocephalus. CALVARIUM: Unremarkable. PARANASAL SINUSES: Unremarkable as visualized. No significant inflammatory changes. MASTOID AIR CELLS: Unremarkable as visualized. No inflammatory changes. OTHER FINDINGS: None. IMPRESSION: No definitive interval change in widespread white-matter cerebral signal abnormality and chronic infarct left cerebellum. No intra hemorrhage or mass- effect. Please see discussion above. 11/28/17 14:28 cxr - right dialysis shunt right Picc line mild cardiomeagly unchanged compare with prior xray Radiology Orders: 11/28/17 12:19 HEAD W/O CONTRAST [CT] Stat 11/28/17 12:20 CHEST ONE VIEW [RAD] Stat Canal Superintendent: Radiologist - EKG Interpretation EKG Interpretation (Text): 11/28/17 13:47 NSR at 70 bpm, LAD, no ectopy, inverted T in leads I, L, II, V6, voltage criteria LVH, non-specific st-t changes, ABNL EKG; unchanged compare with old ekg 11/2017 Interpreted by ED Physician: Yes Type: 12 lead EKG Comparison: Similar to previous EKG - Medication Orders Current Medication Orders: Discontinued Medications Acetaminophen/Butalbital/Caffeine (Fioricet) 1 tab PO ONCE ONE Stop: 11/28/17 12:28 Last Admin: 11/28/17 13:20 Dose: 1 tab MAR Pain Assessment Document 11/28/17 13:20 GMD (Rec: 11/28/17 13:20 GMD [id number]) Pain Reassessment Is this a pain reassessment? No Presence of Pain Presence of Pain Yes Sodium Chloride (Sodium Chloride 0.9%) 250 mls @ 999 mls/hr IV .Q16M STA Stop: 11/28/17 12:43 Last Admin: 11/28/17 13:21 Dose: 999 mls/hr eMAR Start Stop Document 11/28/17 13:21 GMD (Rec: 11/28/17 13:21 GMD [id number]) Intravenous Solution Start Date 11/28/17 Start Time 13:21 End Date 11/28/17 End time 13:36 Total Infusion Time 15 Metoclopramide HCl (Reglan) 10 mg IVP STAT STA Stop: 11/28/17 12:28 Last Admin: 11/28/17 13:20 Dose: 10 mg IVP Administration Document 11/28/17 13:20 GMD (Rec: 11/28/17 13:20 GMD [id number]) Charges for Administration # of IVP Administrations 1 Disposition/Present on Arrival - Present on Arrival Any Indicators Present on Arrival: No History of DVT/PE: No History of Uncontrolled Diabetes: No Urinary Catheter: No History of Decub. Ulcer: No History Surgical Site Infection Following: None - Disposition Have Diagnosis and Disposition been Completed?: Yes Diagnosis: General medical exam, Shaking, ESRD (end stage renal disease) on dialysis, Headache Disposition: HOME/ ROUTINE Disposition Time: 14:17 Patient Plan: Discharge Patient Problems: Current Active Problems Problem Status Onset ESRD (end stage renal disease) on dialysis Acute General medical exam Acute Shaking Acute Condition: STABLE Discharge Instructions (ExitCare): Tremor, Chronic Kidney Disease (DC), Dialysis and Diet Print Language: TAIWANESE Additional Instructions: Make sure to see your doctor in 1-2 days DRINK PLENTY OF FLUIDS take your medications as prescribed RETURN TO ED IF worse pain, cant breath, persistent vomiting, high fever >101- 102 for hours, altered behavior, slurr speech, facial changes, focal weakness ( arm/leg or both), unable to urinate, heavy/persistent bleeding, passing out, chest pain, or other medical emergencies Referrals: Brittany Coffman MD [Primary Care Provider] - Follow up with primary Forms: [employer] (Maldivian)
[2017-11-28] MEDS ORDERED: Apap-Butalbital-Caffeine 325-50-40mg Tab PO ONE (12:27)
[2017-11-28] MEDS ORDERED: Sodium Chloride 0.9% 250 ML IV STA (12:28)
[2017-11-28 13:13] LABS: BASO # 0.02 K/mm3 (0.0-2.0); BASO % 0.4 % (0.0-3.0); EOS # 0.2 (0.0-0.7); EOS % 3.2 % (1.5-5.0); GRAN # 3.5 (1.4-6.5); GRAN % 62.8 % (50.0-68.0); HEMOGLOBIN 8.8 g/dL (12.0-16.0); LYMPH # 1.4 (1.2-3.4); LYMPH % 24.6 % (22.0-35.0); MEAN CELL VOLUME 92.7 fl (80.0-105.0); MEAN CORPUSCULAR HEMOGLOBIN 27.8 pg (25.0-35.0); MEAN PLATELET VOLUME 10.9 fl (7.0-11.0); MONO # 0.5 (0.1-0.6); RBC 3.16 10^6/uL (3.5-6.1); RED CELL DISTRIBUTION WIDTH 16.2 % (11.5-14.5); WHITE BLOOD COUNT 5.6 10^3/ul (4.5-11.0)
[2017-11-28 13:20] LABS: INR 1.02 (0.93-1.08); PROTHROMBIN TIME 11.7 SECONDS (9.4-12.5)
[2017-11-28 13:21] LABS: PARTIAL THROMBOPLASTIN TIME 29.6 Seconds (25.1-36.5)
[2017-11-28 13:47] LABS: ALB/GLOB RATIO 1.6 (1.1-1.8); ALBUMIN 3.7 g/dL (3.0-4.8); CALCIUM 9.8 mg/dL (8.4-10.5)
--- NOTE | 2017-11-28 13:50 | CT ---
PROCEDURE: CT HEAD WITHOUT CONTRAST. HISTORY: right arm and leg shaking, hx of CVA/sz COMPARISON: None available. TECHNIQUE: Axial computed tomography images were obtained through the head/brain without intravenous contrast. Radiation dose: Total exam DLP = 756.70 mGy-cm. This CT exam was performed using one or more of the following dose reduction techniques: Automated exposure control, adjustment of the mA and/or kV according to patient size, and/or use of iterative reconstruction technique. FINDINGS: HEMORRHAGE: No intracranial hemorrhage. BRAIN: Widespread white matter lucency is again appreciated throughout the cerebrum with the ebonie unaffected. Left cerebellar lobar infarction again appreciated on a chronic basis. No intracranial hemorrhage or definitive masses appreciated this time and there is no definite cortical edema. MRI is available for follow-up as clinically warranted. This pattern of white matter abnormality is nonspecific ended does not appear to favor anterior posterior components of the brain separately. PRES is still a definite possibility axis previously been suggested in prior imaging though vasculitis in even demyelination is an others remain possible. VENTRICLES: Unremarkable. No hydrocephalus. CALVARIUM: Unremarkable. PARANASAL SINUSES: Unremarkable as visualized. No significant inflammatory changes. MASTOID AIR CELLS: Unremarkable as visualized. No inflammatory changes. OTHER FINDINGS: None. IMPRESSION: No definitive interval change in widespread white-matter cerebral signal abnormality and chronic infarct left cerebellum. No intra hemorrhage or mass-effect. Please see discussion above.
[2017-11-28 13:53] LABS: TROPONIN I 0.03 ng/mL
[2017-11-28 14:29] VITALS: BP 167/78; PULSE 76; O2SAT 98
--- NOTE | 2017-11-28 14:41 | RAD ---
PROCEDURE: CHEST RADIOGRAPH, 1 VIEW HISTORY: r/o sz/stroke COMPARISON: 11/18/2017. FINDINGS: The right-sided dialysis catheter terminates in the right atrium. The right MediPort terminates at the cavoatrial junction LUNGS: The lungs are well inflated without focal consolidation. PLEURA: No pneumothorax or pleural fluid seen. CARDIOVASCULAR: There is persistent mild cardiomegaly and worsening pulmonary venous congestion. OSSEOUS STRUCTURES: No significant abnormalities. VISUALIZED UPPER ABDOMEN: Normal. OTHER FINDINGS: There is stable appearance of right subclavian endovascular stent with. IMPRESSION: Worsening mild pulmonary venous congestion. No active pulmonary disease. Right-sided dialysis catheter terminates in the right atrium. Right MediPort terminates at the cavoatrial junction.
--- NOTE | 2017-11-28 23:29 | CARD ---
APPROVED REPORT EKG Measurement Heart [id number] <Conclusion> Poor data quality, interpretation may be adversely affected Normal sinus rhythm Possible Left atrial enlargement Left ventricular hypertrophy with repolarization abnormality Abnormal ECG
== END 2017-11-28 14:29 | disposition home or self-care (01) ==
LOC: ED 12:03
DX: N18.6 End stage renal disease (principal); Z99.2 Dependence on renal dialysis; R51 Headache; R25.1 Tremor, unspecified
CPT/HCPCS: 70450; 71045; 80053; 80299; 82948; 83735; 84100; 84484; 85025; 85610; 85730; 93005; 96374; 99285; J2765; J7040

== ENCOUNTER 2017-11-30 10:01 | Inpatient (IN) | payer MEDICARE, OTHER ==
[2017-11-30 10:13] VITALS: BMI 20.9
--- NOTE | 2017-11-30 10:57 | ED PDOC ---
Arrival/HPI - General Chief Complaint: Chest Pain Time Seen by Provider: 11/30/17 10:04 Historian: Patient - History of Present Illness Narrative History of Present Illness (Text): you were treated in the ED today for hx HTN, heart disease with stents on aspirin which you took this morning, plavix which you haven't taken yet, cholesterol, ESRD on dialysis which you had 3.2L removed this past Thursday, COPD, stroke wtih right sided weakness which is unchanged from baseline and had some dizzy/lightheadedness with fall but otherwise without any head injury/ loss of consciousness/neck pain/nausea/vomiting/headache/abdomen pain/numbness/ tingling/loss of limb function/pain with urination. 11/30/17 10:54 Time/Duration: 24 hours Symptom Onset: Gradual Symptom Course: Unchanged Quality: Aching Severity Level: 2 Activities at Onset: Rest Context: Sitting Past Medical History - Provider Review Nursing Documentation Reviewed: Yes - Travel History Have you recently traveled outside [place] w/in the past 3 mons?: No - Past History Past History: No Previous - Infectious Disease Hx of Infectious Diseases: None - Tetanus Immunization Tetanus Immunization: Unknown - Cardiac Hx Hypertension: Yes Hx Pacemaker: No - Pulmonary Hx Chronic Obstructive Pulmonary Disease (COPD): Yes - Neurological Hx Paralysis: No - HEENT Hx HEENT Disorder: Yes (hard of hearing,RIGHT EAR DEAF) Hx Blind: No Hx Cataracts: No Hx Deafness: No Hx Difficulty Chewing: No Hx Epistaxis: No Hx Glaucoma: No Hx Macular Degeneration: No Other/Comment: tinnitus, - Renal Hx Renal Failure: Yes - Endocrine/Metabolic Hx Hypothyroidism: Yes - Hematological/Oncological Hx Blood Transfusions: Yes - Integumentary Hx Dermatological Disorder: No (non healing sugical wound to right ankle) Other/Comment: r ankle wound,non healing surgical wound cared for by dr parada at wound center, wound 5.5 X 3.5 cm ,right buttocks red and open to air, SCARRED AREA.multiple skin discolorations to ble,EDEMA +1.Left thumb area with a 0.7 scabbed wound from rubbing to wheelchair. - Musculoskeletal/Rheumatological Hx Falls: Yes (recent frequent) - Gastrointestinal Hx Gastrointestinal Disorders: Yes (POOR APPETITE,DIVERTICULITIS,GASTROENTERITIS ,GASTRITIS) - Genitourinary/Gynecological Hx Genitourinary Disorders: Yes (ANURIC) - Psychiatric Hx Emotional Abuse: No Hx Physical Abuse: No Hx Substance Use: No - Past Surgical History Past Surgical History: Unable to Obtain - Surgical History Hx Mastectomy: No - Anesthesia Hx Anesthesia Reactions: No Hx Malignant Hyperthermia: No - Suicidal Assessment Feels Threatened In Home Enviroment: No Family/Social History - Physician Review Nursing Documentation Reviewed: Yes Family/Social History: No Known Family HX Smoking Status: Former Smoker Hx Alcohol Use: No Hx Substance Use: No Hx Substance Use Treatment: No Allergies/Home Meds Allergies/Adverse Reactions: Allergies ciprofloxacin Allergy (Verified 11/30/17 10:09) RASH hydralazine Allergy (Verified 11/30/17 10:09) RASH vomiting vancomycin Allergy (Verified 11/30/17 10:09) SHORTNESS OF BREATH palpitations ct dye Allergy (Uncoded 11/30/17 10:09) RASH Home Medications: Home Meds Medication Instructions Recorded Confirmed Lisinopril [Zestril] 40 mg PO DAILY 10/05/17 11/30/17 Sildenafil [Revatio] 20 mg PO DAILY 10/05/17 11/30/17 Clopidogrel [Plavix] 1 tab PO DAILY 11/18/17 11/30/17 Docusate [Colace] 1 cap PO TID 11/18/17 11/30/17 NIFEdipine ER [Procardia XL] 1 tab PO DAILY 11/18/17 11/30/17 Oxycodone HCl/Acetaminophen 1 tab PO QID PRN 11/18/17 11/30/17 [Endocet 10-325 mg Tablet] Review of Systems - Review of Systems Constitutional: Normal Eyes: Normal ENT: Normal Respiratory: SOB Cardiovascular: Chest Pain Gastrointestinal: Normal Genitourinary Female: Normal Musculoskeletal: Normal Skin: Normal Neurological: Normal Endocrine: Normal Hemo/Lymphatic: Normal Psychiatric: Normal Physical Exam Vital Signs Reviewed: Yes Vital Signs Temp Pulse Pulse Resp BP Pulse Ox 11/30/17 15:15 98 H 18 234/134 H 100 11/30/17 14:10 90 18 225/119 H 98 11/30/17 13:48 222/117 H 11/30/17 13:00 88 18 210/102 H 98 11/30/17 12:54 222/98 H 11/30/17 12:40 82 18 236/96 H 99 11/30/17 11:30 80 18 212/110 H 97 11/30/17 10:30 92 H 88 18 213/116 H 97 11/30/17 10:12 97.6 F 87 26 H 99 Temperature: Afebrile Blood Pressure: Hypertensive Pulse: Regular Respiratory Rate: Normal Appearance: Positive for: Well-Appearing, Non-Toxic, Comfortable Pain Distress: None Mental Status: Positive for: Alert and Oriented X 3 - Systems Exam Head: Present: Atraumatic, Normocephalic Pupils: Present: PERRL Extroacular Muscles: Present: EOMI Conjunctiva: Present: Normal Ears: Present: Normal Mouth: Present: Moist Mucous Membranes Pharnyx: Present: Normal Nose (External): Present: Atraumatic Nose (Internal): Present: Normal Inspection Neck: Present: Normal Range of Motion Respiratory/Chest: Present: Clear to Auscultation, Good Air Exchange Cardiovascular: Present: Regular Rate and Rhythm Abdomen: No: Tenderness, Distention, Normal Bowel Sounds, Peritoneal Signs, Rebound, Guarding, McBurney's Point Tender, Rovsing's Sign Present, Hernias, Feeding Tubes, Ostomy Tubes, Mass/Organomegaly, Scars, Other Back: Present: Normal Inspection Upper Extremity: Present: Normal Inspection Lower Extremity: Present: Normal Inspection, Other (baseline right lower leg healing ulcer wo erythema/fluctuance/crepitus. otherwise b/l le warm/sensation/ cap refill/pink.) Neurological: Present: GCS=15, CN II-XII Intact, Speech Normal, Motor Func Grossly Intact Skin: Present: Warm, Normal Color Psychiatric: Present: Alert, Oriented x 3, Normal Insight, Normal Concentration Medical Decision Making ED Course and Treatment: ou were treated in the ED today for hx HTN, heart disease with stents on aspirin which you took this morning, plavix which you haven't taken yet, cholesterol, ESRD on dialysis which you had 3.2L removed this past Thursday, COPD, stroke wtih right sided weakness which is unchanged from baseline and had some dizzy/lightheadedness with fall but otherwise without any head injury/ loss of consciousness/neck pain/nausea/vomiting/headache/abdomen pain/numbness/ tingling/loss of limb function/pain with urination. You were otherwise breathing easily, talking with us and your son, good strength/sensation, walking easily, clear lungs, no abdomen tenderness, right chest port in placed, right lower leg healing ulcer without redness and otherwise warm/pink/sensation , no fever temp 97.6, stable heart rate 87, stable breathing rate 26 and , excellent oxygen level 99% room air, elevated blood pressure 213/116 and repeat_ ____ which we recommend repeat in 2-3 days primary care office to determine further treatment, you have blood tests no infection count 5.5, stable blood level hemoglobin 9.9/platelets 255, stable chemistry, heart blood test indeterminate 0.04, BNP 161,000, radiology ct head no acute intracranial and chest xray no active disease, ECG normal sinus rhythm similar to prior times two , duoneb, solumedrol, lasix, discussed with Dr. Coffman who stated that you have a blood pressure control issue and to give you norvasc 10mg/nitro-paste 1inch/protonix/anti-nausea medication zofran, observation done in the ED without improvement, and repeat blood pressure 234 systolic and discussed with Dr. Coffman who stated can admit to tele, with consult Dr. Smith nephrology and Dr. Ontiveros cardiology. 11/30/17 12:[address]: Creator : Akhil Lennon MD COMPARISON: 11/28/2017 FINDINGS: HEMORRHAGE: No intracranial hemorrhage. BRAIN: No mass effect or edema. Severe chronic microvascular disease. Small chronic infarct in the left cerebellar hemisphere. No acute findings VENTRICLES: Unremarkable. No hydrocephalus. CALVARIUM: Unremarkable. PARANASAL SINUSES: Unremarkable as visualized. No significant inflammatory changes. MASTOID AIR CELLS: Unremarkable as visualized. No inflammatory changes. OTHER FINDINGS: None. IMPRESSION: No acute intracranial findings 11/30/17 12:55 Chest X-ray: Creator : Akhil Lennon MD FINDINGS: LUNGS: Clear. PLEURA: No pneumothorax or pleural fluid seen. CARDIOVASCULAR: Mild cardiomegaly OSSEOUS STRUCTURES: No significant abnormalities. VISUALIZED UPPER ABDOMEN: Normal. OTHER FINDINGS: There is a right IJ dialysis catheter in the right atrium as well as a right-sided Port-A-Cath. There is also right-sided vascular stent. IMPRESSION: No active disease. Reassessment Condition: Re-examined, Improved - Lab Interpretations Lab Results: 11/30/17 11:15 11/30/17 11:15 Lab Results 11/30/17 14:20: Troponin I 0.04 11/30/17 11:15: Sodium 140, Potassium 5.3 H, Chloride 99, Carbon Dioxide 27, Anion Gap 19, BUN 55 H, Creatinine 5.2 H, Est GFR ( Amer) 10, Est GFR ( Non-Af Amer) 9, Random Glucose 95, Calcium 10.2, Magnesium 2.3 H, Total Bilirubin 0.3, AST 48 H D, ALT 39, Alkaline Phosphatase 146 H, Lactate Dehydrogenase 552, Total Creatine Kinase 36, Troponin I 0.04 D, NT-Pro-B Natriuret Pep 881379 H, Total Protein 6.4, Albumin 4.0, Globulin 2.4, Albumin/ Globulin Ratio 1.7 11/30/17 11:15: PT 11.5, INR 1.00, APTT 30.1 11/30/17 11:15: WBC 5.9, RBC 3.46 L, Hgb 9.9 L, Hct 32.3 L, MCV 93.4, MCH 28.6, MCHC 30.7 L, RDW 16.6 H, Plt Count 255, MPV 11.0, Gran % 59.5, Lymph % (Auto) 25.7, [place] % (Auto) 10.2 H, Eos % (Auto) 3.9, Baso % (Auto) 0.7, Gran # 3.49, Lymph # (Auto) 1.5, [place] # (Auto) 0.6, Eos # (Auto) 0.2, Baso # (Auto) 0.04 I have reviewed the lab results: Yes - RAD Interpretation Radiology Orders: 11/30/17 10:50 HEAD W/O CONTRAST [CT] Stat CHEST ONE VIEW [RAD] Stat Process Planner: Radiologist - EKG Interpretation Interpreted by ED Physician: Yes (NSR, similar to prior 11/28/17) Type: 12 lead EKG Comparison: Similar to previous EKG (11/28/17) - Medication Orders Current Medication Orders: Discontinued Medications Albuterol/Ipratropium (Duoneb 3 Mg/0.5 Mg (3 Ml) Ud) 3 ml IH STAT STA Stop: 11/30/17 11:12 Last Admin: 11/30/17 11:27 Dose: 3 ml Amlodipine Besylate (Norvasc) 10 mg PO STAT STA Stop: 11/30/17 13:21 Last Admin: 11/30/17 13:48 Dose: 10 mg MAR Blood Pressure Document 11/30/17 13:48 SZA (Rec: 11/30/17 13:48 ROSALIND [id number]) Blood Pressure Blood Pressure (100/60-150/90 mm Hg) 222/117 Furosemide (Lasix) 40 mg IVP STAT STA Stop: 11/30/17 12:43 Last Admin: 11/30/17 12:54 Dose: 40 mg MAR Blood Pressure Document 11/30/17 12:54 SZA (Rec: 11/30/17 12:55 ROSALIND [id number]) Blood Pressure Blood Pressure (100/60-150/90 mm Hg) 222/98 IVP Administration Document 11/30/17 12:54 SZA (Rec: 11/30/17 12:55 [facility] [id number]) Charges for Administration # of IVP Administrations 1 Methylprednisolone (Solu-Medrol) 125 mg IVP STAT STA Stop: 11/30/17 12:43 Last Admin: 11/30/17 12:54 Dose: 125 mg IVP Administration Document 11/30/17 12:54 SZA (Rec: 11/30/17 12:54 ROSALIND [id number]) Charges for Administration # of IVP Administrations 1 Morphine Sulfate (Morphine) 4 mg IVP STAT STA Stop: 11/30/17 11:29 Last Admin: 11/30/17 11:49 Dose: [address] [facility] Pain Assessment Document 11/30/17 11:49 ELIZABETH (Rec: 11/30/17 11:49 ELIZABETH CORTEZ-PC) Pain Reassessment Is this a pain reassessment? No Sleep Is patient sleeping during reassessment? No Presence of Pain Presence of Pain Yes Pain Scale Used Pain Scale Used Numeric IVP Administration Document 11/30/17 11:49 ELIZABETH (Rec: 11/30/17 11:49 ELIZABETH CORTEZ-PC) Charges for Administration # of IVP Administrations 1 Re-Assess: MAR Pain Assessment Document 11/30/17 12:49 ELIZABETH (Rec: 11/30/17 14:44 ELIZABETH CORTEZ-PC) Pain Reassessment Is this a pain reassessment? Yes Sleep Is patient sleeping during reassessment? No Presence of Pain Presence of Pain No Nitroglycerin (Nitro-Bid 2% Oint) 1 ea TOP STAT STA Stop: 11/30/17 13:21 Last Admin: 11/30/17 13:48 Dose: 1 ea Ondansetron HCl (Zofran Inj) 4 mg IVP STAT STA Stop: 11/30/17 13:20 Last Admin: 11/30/17 13:49 Dose: 4 mg IVP Administration Document 11/30/17 13:49 ELIZABETH (Rec: 11/30/17 13:50 ELIZABETH CORTEZ-PC) Charges for Administration # of IVP Administrations 1 Pantoprazole Sodium (Protonix Inj) 40 mg IVP STAT STA Stop: 11/30/17 13:20 Last Admin: 11/30/17 13:48 Dose: 40 mg IVP Administration Document 11/30/17 13:48 ELIZABETH (Rec: 11/30/17 13:49 ELIZABETH CORTEZ-PC) Charges for Administration # of IVP Administrations 1 - Scribe Statement The provider has reviewed the documentation as recorded by the Jayleen Jade Provider Scribe Attestation: All medical record entries made by the Scribe were at my direction and personally dictated by me. I have reviewed the chart and agree that the record accurately reflects my personal performance of the history, physical exam, medical decision making, and the department course for this patient. I have also personally directed, reviewed, and agree with the discharge instructions and disposition. Disposition/Present on Arrival - Present on Arrival Any Indicators Present on Arrival: No History of DVT/PE: No History of Uncontrolled Diabetes: No Urinary Catheter: No History of Decub. Ulcer: No History Surgical Site Infection Following: None - Disposition Have Diagnosis and Disposition been Completed?: Yes Diagnosis: Chronic renal impairment, ESRD (end stage renal disease) on dialysis, Dyspnea or other respiratory complaints, Shortness of breath Disposition: HOSPITALIZED Disposition Time: 15:25 Patient Plan: Admission Condition: STABLE Referrals: Brittany Coffman MD [Primary Care Provider] - Follow up with primary Forms: [employer] (Uzbek)
[2017-11-30] MEDS ORDERED: Albuterol-Ipratrop 3 mg / 0.5 (3 ml) UD IH STA (11:11)
[2017-11-30] MEDS ORDERED: Albuterol-Ipratrop 3 mg / 0.5 (3 ml) UD ONE (11:13)
[2017-11-30] MEDS ORDERED: Morphine 4 mg/ml ISec IVP STA ×2 (11:28→19:59)
[2017-11-30 11:37] LABS: BASO # 0.04 K/mm3 (0.0-2.0); BASO % 0.7 % (0.0-3.0); EOS # 0.2 (0.0-0.7); EOS % 3.9 % (1.5-5.0); GRAN # 3.49 (1.4-6.5); GRAN % 59.5 % (50.0-68.0); HEMOGLOBIN 9.9 g/dL (12.0-16.0); LYMPH # 1.5 (1.2-3.4); LYMPH % 25.7 % (22.0-35.0); MEAN CELL VOLUME 93.4 fl (80.0-105.0); MEAN CORPUSCULAR HEMOGLOBIN 28.6 pg (25.0-35.0); MEAN CORPUSCULAR HGB CONC 30.7 g/dl (31.0-37.0); MONO # 0.6 (0.1-0.6); MONO % 10.2 % (1.0-6.0); RBC 3.46 10^6/uL (3.5-6.1); RED CELL DISTRIBUTION WIDTH 16.6 % (11.5-14.5); WHITE BLOOD COUNT 5.9 10^3/ul (4.5-11.0)
[2017-11-30 11:40] LABS: PARTIAL THROMBOPLASTIN TIME 30.1 Seconds (25.1-36.5); PROTHROMBIN TIME 11.5 SECONDS (9.4-12.5)
[2017-11-30 11:41] LABS: ALB/GLOB RATIO 1.7 (1.1-1.8); CALCIUM 10.2 mg/dL (8.4-10.5)
[2017-11-30 11:47] LABS: TROPONIN I 0.04 ng/mL
--- NOTE | 2017-11-30 12:23 | CT ---
PROCEDURE: CT HEAD WITHOUT CONTRAST. HISTORY: 57yoF, with hx of cva, wtih dizziness/lightheaded. COMPARISON: 11/28/2017 TECHNIQUE: Axial computed tomography images were obtained through the head/brain without intravenous contrast. Radiation dose: Total exam DLP = 880 mGy-cm. This CT exam was performed using one or more of the following dose reduction techniques: Automated exposure control, adjustment of the mA and/or kV according to patient size, and/or use of iterative reconstruction technique. FINDINGS: HEMORRHAGE: No intracranial hemorrhage. BRAIN: No mass effect or edema. Severe chronic microvascular disease. Small chronic infarct in the left cerebellar hemisphere. No acute findings VENTRICLES: Unremarkable. No hydrocephalus. CALVARIUM: Unremarkable. PARANASAL SINUSES: Unremarkable as visualized. No significant inflammatory changes. MASTOID AIR CELLS: Unremarkable as visualized. No inflammatory changes. OTHER FINDINGS: None. IMPRESSION: No acute intracranial findings
--- NOTE | 2017-11-30 12:55 | RAD ---
PROCEDURE: CHEST RADIOGRAPH, 1 VIEW HISTORY: 57yoF chest pain COMPARISON: None available. FINDINGS: LUNGS: Clear. PLEURA: No pneumothorax or pleural fluid seen. CARDIOVASCULAR: Mild cardiomegaly OSSEOUS STRUCTURES: No significant abnormalities. VISUALIZED UPPER ABDOMEN: Normal. OTHER FINDINGS: There is a right IJ dialysis catheter in the right atrium as well as a right-sided Port-A-Cath. There is also right-sided vascular stent. IMPRESSION: No active disease.
[2017-11-30] MEDS ORDERED: Nitroglycerin 2% Ointment Foilpak UD TOP STA (13:20)
[2017-11-30] MEDS: Sildenafil 20 MG TAB PO SCH (18:11)
--- NOTE | 2017-11-30 20:02 | CP.PCM.PN ---
Subjective - Date & Time of Evaluation Date of Evaluation: 11/30/17 Time of Evaluation: 19:59 - Subjective Subjective: Patient was seen at bedside. She complained of pain in leg wound.Also has pain in the chest and head. BP has come down from 234/134 to 180/77. She received morphine sulfate 4 mg IV at 11:49 AM for this pain when she was in the ER. Has no other complaints now. Medical record was reviewed. This 57 year old woman is admitted with hypertensive emergency , chest pain, sob. Has PMH of HTN, pulmonary HTN, ESRD, anemia, seizure, PUD, hypothyroidism, angioplasty. Objective - Vital Signs/Intake and Output Vital Signs (last 24 hours): Temp Pulse Resp BP Pulse Ox 98.7 F 80 20 177/77 H 98 11/30/17 18:20 11/30/17 18:20 11/30/17 18:20 11/30/17 18:20 11/30/17 18:20 - Medications Medications: Current Medications Clonidine HCl (Catapres) 0.2 mg PO TID [facility] Last Admin: 11/30/17 18:05 Dose: Not Given Clopidogrel Bisulfate (Plavix) 75 mg PO DAILY [facility] Labetalol HCl (Trandate) 300 mg PO BID [facility] Last Admin: 11/30/17 16:52 Dose: 300 mg Labetalol HCl (Trandate) 300 mg PO TID [facility] Last Admin: 11/30/17 18:03 Dose: Not Given Levetiracetam (Keppra) 500 mg PO BID [facility] Last Admin: 11/30/17 18:07 Dose: 500 mg Levothyroxine Sodium (Synthroid) 75 mcg PO 0600 [facility] Lisinopril (Zestril) 40 mg PO DAILY [facility] Nifedipine (Procardia Xl) 90 mg PO DAILY [facility] Pantoprazole Sodium (Protonix Ec Tab) 40 mg PO 0600 [facility] Sevelamer HCl (Renagel) 1,600 mg PO 0800,1200,1800 [facility] Last Admin: 11/30/17 18:11 Dose: 1,600 mg Sildenafil Citrate (Revatio) 20 mg PO TID [facility] Last Admin: 11/30/17 18:11 Dose: 20 mg - Labs Labs: PT 11.5 SECONDS (9.4-12.5) 11/30/17 11:15 INR 1.00 (0.93-1.08) 11/30/17 11:15 APTT 30.1 Seconds (25.1-36.5) 11/30/17 11:15 Lab Studies 11/30/17 11/30/17 11/30/17 Range/Units 14:20 11:15 11:15 WBC (4.5-11.0) 10^3/ul RBC (3.5-6.1) 10^6/uL Hgb (12.0-16.0) g/dL Hct (36.0-48.0) % MCV (80.0-105.0) fl MCH (25.0-35.0) pg MCHC (31.0-37.0) g/dl RDW (11.5-14.5) % Plt Count (120.0-450.0) 10^3/uL MPV (7.0-11.0) fl Gran % (50.0-68.0) % Lymph % (Auto) (22.0-35.0) % [place] % (Auto) (1.0-6.0) % Eos % (Auto) (1.5-5.0) % Baso % (Auto) (0.0-3.0) % Gran # (1.4-6.5) Lymph # (Auto) (1.2-3.4) [place] # (Auto) (0.1-0.6) Eos # (Auto) (0.0-0.7) Baso # (Auto) (0.0-2.0) K/mm3 PT 11.5 (9.4-12.5) SECONDS INR 1.00 (0.93-1.08) APTT 30.1 (25.1-36.5) Seconds Sodium 140 (132-148) mmol/L Potassium 5.3 H (3.6-5.0) mmol/L Chloride 99 (98-107) mmol/L Carbon Dioxide 27 (21-33) mmol/L Anion Gap 19 (10-20) BUN 55 H (7-21) mg/dL Creatinine 5.2 H (0.7-1.2) mg/dl Est GFR ( Amer) 10 Est GFR (Non-Af Amer) 9 Random Glucose 95 (70-110) mg/dL Calcium 10.2 (8.4-10.5) mg/dL Magnesium 2.3 H (1.7-2.2) mg/dL Total Bilirubin 0.3 (0.2-1.3) mg/dL AST 48 H D (14-36) U/L ALT 39 (7-56) U/L Alkaline Phosphatase 146 H (38-126) U/L Lactate Dehydrogenase 552 (333-699) U/L Total Creatine Kinase 36 (35-230) U/L Troponin I 0.04 0.04 D ng/mL NT-Pro-B Natriuret Pep [id number] H (0-450) pg/mL Total Protein 6.4 (5.8-8.3) g/dL Albumin 4.0 (3.0-4.8) g/dL Globulin 2.4 gm/dL Albumin/Globulin Ratio 1.7 (1.1-1.8) 03//18 Range/Units 11:15 WBC 5.9 (4.5-11.0) 10^3/ul RBC 3.46 L (3.5-6.1) 10^6/uL Hgb 9.9 L (12.0-16.0) g/dL Hct 32.3 L (36.0-48.0) % MCV 93.4 (80.0-105.0) fl MCH 28.6 (25.0-35.0) pg MCHC 30.7 L (31.0-37.0) g/dl RDW 16.6 H (11.5-14.5) % Plt Count 255 (120.0-450.0) 10^3/uL MPV 11.0 (7.0-11.0) fl Gran % 59.5 (50.0-68.0) % Lymph % (Auto) 25.7 (22.0-35.0) % [place] % (Auto) 10.2 H (1.0-6.0) % Eos % (Auto) 3.9 (1.5-5.0) % Baso % (Auto) 0.7 (0.0-3.0) % Gran # 3.49 (1.4-6.5) Lymph # (Auto) 1.5 (1.2-3.4) [place] # (Auto) 0.6 (0.1-0.6) Eos # (Auto) 0.2 (0.0-0.7) Baso # (Auto) 0.04 (0.0-2.0) K/mm3 PT (9.4-12.5) SECONDS INR (0.93-1.08) APTT (25.1-36.5) Seconds Sodium (132-148) mmol/L Potassium (3.6-5.0) mmol/L Chloride (98-107) mmol/L Carbon Dioxide (21-33) mmol/L Anion Gap (10-20) BUN (7-21) mg/dL Creatinine (0.7-1.2) mg/dl Est GFR ( Amer) Est GFR (Non-Af Amer) Random Glucose (70-110) mg/dL Calcium (8.4-10.5) mg/dL Magnesium (1.7-2.2) mg/dL Total Bilirubin (0.2-1.3) mg/dL AST (14-36) U/L ALT (7-56) U/L Alkaline Phosphatase (38-126) U/L Lactate Dehydrogenase (333-699) U/L Total Creatine Kinase (35-230) U/L Troponin I ng/mL NT-Pro-B Natriuret Pep (0-450) pg/mL Total Protein (5.8-8.3) g/dL Albumin (3.0-4.8) g/dL Globulin gm/dL Albumin/Globulin Ratio (1.1-1.8) - Constitutional Appears: Well, No Acute Distress - Head Exam Head Exam: ATRAUMATIC, NORMAL INSPECTION, NORMOCEPHALIC - Eye Exam Eye Exam: Normal appearance - ENT Exam ENT Exam: Normal External Ear Exam - Neck Exam Neck Exam: Normal Inspection - Respiratory Exam Respiratory Exam: NORMAL BREATHING PATTERN - Cardiovascular Exam Cardiovascular Exam: absent: JVD - GI/Abdominal Exam GI & Abdominal Exam: absent: Distended - Rectal Exam Rectal Exam: Deferred - Exam Additional comments: Deferred. - Extremities Exam Extremities Exam: Normal Inspection - Back Exam Back Exam: NORMAL INSPECTION - Neurological Exam Neurological Exam: Alert, Awake, Oriented x3 - Psychiatric Exam Psychiatric exam: Normal Affect, Normal Mood - Skin Skin Exam: Normal Color Assessment and Plan - Assessment and Plan (Free Text) Assessment: Leg pain. Anemia. Hyperkalemia. ESRD. Elevated BNP. Chest pain. HTN. Pulmonary HTN. Seizure disorder. Hypothyroidism. PUD. Plan: Morphine sulfate 4 mg IV x 1. Continue management as per PMD.
[2017-11-30 20:58] LABS: CALCIUM 10.4 mg/dL (8.4-10.5)
[2017-11-30 20:59] LABS: ALB/GLOB RATIO 1.6 (1.1-1.8)
[2017-11-30] MEDS: Albuterol-Ipratrop 3 mg / 0.5 (3 ml) UD IH PRN (21:59)
--- NOTE | 2017-11-30 22:02 | CARD ---
APPROVED REPORT EKG Measurement Heart [id number] <Conclusion> Normal sinus rhythm Possible Left atrial enlargement Left ventricular hypertrophy with repolarization abnormality Abnormal ECG
[2017-11-30] MEDS ORDERED: Influenza Vaccine 60 mcg/0.5 mL SYR (4YR UP) IM ONE (23:31)
[2017-11-30] MEDS ORDERED: Pneumococcal 23-Valent Vaccine IM ONE (23:31)
--- NOTE | 2017-11-30 23:46 | CARD ---
APPROVED REPORT EKG Measurement Heart [id number] <Conclusion> Normal sinus rhythm Possible Left atrial enlargement Left ventricular hypertrophy with repolarization abnormality Abnormal ECG
[2017-12-01] MEDS ORDERED: DiphenhydrAMINE 50 mg/ml Inj IVP STA (01:18)
--- NOTE | 2017-12-01 03:19 | HP ---
HISTORY OF PRESENT ILLNESS: Patient is 57-year-old, came to emergency room because of chest pain, discomfort, headache, feeling nauseous, lightheaded. She was in the ER on Thursday because of right-sided shaking. She was given her usual medication. Her blood pressure settled down after she had dialysis, so she was sent home. She came with similar complaint today. Her blood pressure upon arrival was 222/98. She was given nitroglycerin paste 1 inch. She was also given clonidine, Norvasc 10 mg daily. The blood pressure did not drop, so she is being placed in observation for further monitoring of her blood pressure, her presenting symptom as above. PAST MEDICAL HISTORY: Significant for: 1. Uncontrolled hypertension. 2. Pulmonary hypertension. 3. Hyperlipidemia. 4. Seizure disorder. 5. Peripheral vascular disease status post bypass surgery. 6. Status post carotid stenosis. 7. End-stage renal disease, on hemodialysis. 8. Status post carotid angioplasty. ALLERGIES: SHE IS ALLERGIC TO CIPRO, HYDRALAZINE, AND VANCOMYCIN. MEDICATIONS AT HOME: She is on labetalol 300 three times a day, Norvasc 10 mg daily, Percocet one tablet every 6 hours p.r.n., Keppra 500 twice a day, Revatio 20 mg daily, Renagel 1600 three times a day, Protonix 40 daily. She is on nifedipine 90 mg daily, lisinopril 40 mg daily, levothyroxine 75 mcg daily, Plavix 75 daily. SOCIAL HISTORY: She lives with her son. Denies smoking. No drinking. She used to be a smoker up until one year ago. PHYSICAL EXAMINATION: GENERAL: She is awake, alert, oriented, able to communicate. VITAL SIGNS: She is afebrile. Pulse 98, respiration 18, blood pressure 225/119. LUNGS: Bilateral fair airflow. No rhonchi or crackle. HEART: S1 and S2 audible. Systolic murmur. ABDOMEN: Soft, nontender. No rebound. No guarding. NEUROLOGIC: She is awake, alert, oriented, able to communicate. LABORATORY EXAM: WBC is 5.9, hemoglobin 9.9, hematocrit 32.6, platelets of 255. Chemistry: Sodium 140, potassium 5.3, chloride 99, CO2 of 27, BUN 55, creatinine 5.2, blood sugar of 95. LFTs are within normal limit. AST 48, ALT 39. ASSESSMENT AND PLAN: 1. Uncontrolled hypertension. 2. Chest pain, rule out underlying coronary ischemia. 3. Hyperlipidemia. 4. Peptic ulcer disease. 5. Pulmonary hypertension. 6. End-stage renal disease, on hemodialysis. 7. Peripheral vascular disease. PLAN: Patient is being placed in observation. We will start her on clonidine 0.2 three times a day. She has been on nebulizer treatment. Keppra has been started. She is on Plavix 75 daily. She is on Protonix 40 daily, levothyroxine 75 mcg daily, labetalol 300 three times a day. We will monitor her blood pressure closely. Dr. Ontiveros has been consulted. We will follow up patient in a.m. Brittany Coffman MD
--- NOTE | 2017-12-01 05:08 | CON ---
DATE: 11/30/2017 REASON FOR CONSULTATION: Uncontrolled hypertension, chest pain, coronary artery disease, peripheral arterial disease, end-stage renal disease, on dialysis. BRIEF CLINICAL HISTORY: This is a 57-year-old female with a past medical history significant for coronary artery disease, status post stenting of the obtuse marginal with , history of end-stage renal disease, on dialysis, severe PAD, seizure disorder, came with a complaint of shortness of breath, uncontrolled hypertension, blood pressure 220/120, some chest pain and shortness of breath. Denies any fever or chills. Last dialysis on , is due for tomorrow. PAST MEDICAL HISTORY: Significant for coronary artery disease, status post PTCA after non-STEMI outside the [facility] at [facility] with stenting of OM1, history of COPD, history of diastolic dysfunction, peripheral arterial disease, occluded SFA, hypothyroidism, history of lower extremity femoral bypass, history of carotid artery stenting, history of seizure disorder, history of stroke, history of end-stage renal disease, on dialysis, history of abdominal (mesenteric) ischemia and history of mesenteric angiogram negative for any significant stenosis. PAST SURGICAL HISTORY: Significant for wound debridement, history of PTCA, history of multiple stents, multiple times Port-A-Cath access sites was clogged dialysis catheter was clogged and dilated, history of right carotid artery angioplasty. SOCIAL HISTORY: Denies any history of alcohol abuse, quit smoking 5 years ago. No history of substance abuse. PREVIOUS CARDIAC WORKUP: As follows: Patient had a Code STEMI in 01/12/2017, admitted at [facility] where the patient underwent PTCA of obtuse marginal 1, history right SFA occluded, history of right femoral artery bypass, history of mesenteric artery angiogram, negative for mesenteric artery stenosis, history of carotid artery stenting at [facility] in 10/2016, multiple admissions with uncontrolled hypertension, chest pain. Last echo dated 01/11/2017 showed ejection fraction 65%, mild MR, mild TR, mild AR, [id number] PI, RV systolic pressure 21. The patient had a repeat echo at [facility], it was told fluid around the heart, so repeat echo was done here on 08/20/2017 that showed ejection fraction 65% to 70%, normal segmental wall motion, mildly dilated left atrium and long axis, [id number] mitral regurgitation, [id number] tricuspid regurgitation. Patient had a stress test, 08/21/2017 essentially negative for ischemia. CURRENT MEDICATIONS: At home, patient was taking oxycodone, Keppra, clonidine, amlodipine, Revatio, Renagel, nifedipine, lisinopril, levothyroxine, levalbuterol, Colace and clopidogrel. ALLERGIES: ALLERGIC TO CIPROFLOXACIN, HYDRALAZINE, VANCOMYCIN AND CT DYE. REVIEW OF SYSTEMS: As per HPI. PHYSICAL EXAMINATION: As follows: VITAL SIGNS: Temperature afebrile, heart rate 98, blood pressure 225/108. HEENT: PERRLA intact. NECK: Supple. No carotid bruit or thyromegaly. CHEST: Clear to auscultation. HEART: S1, S2 regular. ABDOMEN: Soft. EXTREMITIES: Clubbing and cyanosis negative. LABORATORY DATA: EKG shows LVH with strain pattern, normal sinus, LVH. Blood workup as follows: WBC 5.8, hemoglobin 9.8, hematocrit 32.3, platelet count 255. Chemistry shows sodium 140, potassium 5.3, chloride 99, carbon dioxide 27, anion gap of 19, BUN 59, creatinine 5.2, troponin 0.04 at 11:00 a.m. and then repeat is 0.04, BNP 161,000. IMPRESSION: Uncontrolled hypertension, chest pain, very tender on the chest, but having underlying coronary artery disease, end-stage renal disease, on dialysis, history of coronary artery disease, history of Code ST-elevation myocardial infarction, history of stenting of obtuse marginal 1, recent stress test in August was negative, diabetes, hypertension, hyperlipidemia, peripheral arterial disease, vasculopathy all over. RECOMMENDATIONS: Resume antihypertensive medications, monitor H and H, monitor troponin, dialysis tomorrow. Further recommendations depending on hospital course. We will follow with you. Thank you, Dr. Coffman, for providing us the opportunity in taking care of Renetta Thakur. Pj Ontiveros MD
[2017-12-01] MEDS: Pantoprazole 40 mg EC Tab PO SCH (05:41)
[2017-12-01] MEDS: Levothyroxine 75 MCG TAB PO SCH (05:41)
[2017-12-01 06:31] LABS: BASO # 0.01 K/mm3 (0.0-2.0); BASO % 0.2 % (0.0-3.0); EOS % 0.2 % (1.5-5.0); GRAN # 3.1 (1.4-6.5); GRAN % 63.8 % (50.0-68.0); HEMOGLOBIN 8.8 g/dL (12.0-16.0); LYMPH # 1.3 (1.2-3.4); LYMPH % 26.1 % (22.0-35.0); MEAN CELL VOLUME 94.3 fl (80.0-105.0); MEAN CORPUSCULAR HEMOGLOBIN 27.8 pg (25.0-35.0); MEAN CORPUSCULAR HGB CONC 29.5 g/dl (31.0-37.0); MEAN PLATELET VOLUME 10.1 fl (7.0-11.0); MONO # 0.5 (0.1-0.6); MONO % 9.7 % (1.0-6.0); RBC 3.16 10^6/uL (3.5-6.1); RED CELL DISTRIBUTION WIDTH 16.7 % (11.5-14.5); WHITE BLOOD COUNT 4.9 10^3/ul (4.5-11.0)
[2017-12-01 06:52] LABS: TROPONIN I 0.05 ng/mL
[2017-12-01 07:43] LABS: ALB/GLOB RATIO 1.6 (1.1-1.8); ALBUMIN 3.8 g/dL (3.0-4.8)
[2017-12-01] MEDS: NIFEdipine 90 mg ER Tab PO SCH (10:17)
[2017-12-01] MEDS: Sildenafil 20 MG TAB PO SCH ×3 (10:17→18:09)
[2017-12-01] MEDS ORDERED: Morphine 4 mg/ml ISec IV SCH (11:45)
[2017-12-01] MEDS ORDERED: Morphine 2 mg/ml ISec IVP ONE (12:00)
[2017-12-01] MEDS ORDERED: Morphine 4 mg/ml ISec IV ONE (12:30)
[2017-12-01] MEDS ORDERED: Morphine 4 mg/ml ISec IVP SCH (12:30)
--- NOTE | 2017-12-01 15:28 | PN ---
DATE: 12/01/2017 REASON FOR THE CONSULTATION: Follow up uncontrolled hypertension; chest pain, resolved; coronary artery disease; peripheral arterial disease; end-stage renal disease, on dialysis; severe headache. SUBJECTIVE: The patient denies any chest pain, shortness of breath, any palpitations. Feels a lot better. Chest pain completely resolved, but having severe headache. OBJECTIVE: GENERAL: Not in any apparent distress. Came back from the dialysis. VITAL SIGNS: Blood pressure 186/80, heart rate 86, low-grade temperature 100.0. HEENT: PERRLA. Extraocular muscles intact. NECK: Supple. No carotid bruit. No thyromegaly. CHEST: Clear to auscultation. HEART: S1 and S2 regular. ABDOMEN: Soft. EXTREMITIES: Clubbing and cyanosis negative. LABORATORY DATA: Blood workup as follows; WBC 4.9, hemoglobin 8.8, hematocrit 29.8, platelet count 247. Chemistry shows sodium 141, potassium 5.9, chloride 99, carbon dioxide 26, anion gap of 23, BUN 74, creatinine 6.9, total protein , albumin 3.8, albumin and globulin ratio 1.6. Troponin 0.05, 0.05. IMPRESSION: No evidence of acute myocardial infarction. Uncontrolled hypertension, improving; severe headache; end stage renal disease, on dialysis; peripheral arterial disease, status post right superficial femoral artery occluded; status post carotid angioplasty; history of seizure disorder; history of intracerebral bleed in the past; coronary artery disease, status post [id number] myocardial infarction, status post percutaneous transluminal coronary angioplasty of obtuse marginal 1. Last echocardiogram, preserved left ventricular function and last stress test in 08/2017, no ischemia. RECOMMENDATION: We will send stat ESR to rule out lupus panel. Rule out temporal arteritis. The patient is complaining of blurring of the vision as well and mild tenderness in both temporal area. I am not sure if it is secondary to uncontrolled hypertension or some other entity. We will send sed rate as well as SLE. Sed rate to rule out any temporal arteritis and rule out any connective tissue disorder. Interm, continue clonidine 0.2 mg 3 times a day. Continue Keppra for seizure disorder. Continue Plavix. Continue nifedipine. Yesterday, hydralazine was ordered, but since the patient is allergic to, it is held. Continue lisinopril. We will follow with you. Thank you, Dr. Coffman for providing us the opportunity in taking care of Renetta Thakur. So far, no evidence of acute CO. Though instead severe hypertensive emergency, troponin remains . Pj Ontiveros MD
--- NOTE | 2017-12-01 20:32 | CON ---
DATE: 12/01/2017 The patient is admitted for Dr. Coffman. REFERRING PHYSICIAN: Brittany Coffman MD REASON FOR CONSULTATION: To provide dialysis services for a patient, who is once again admitted with uncontrolled hypertension in the setting of chest tightness. HISTORY OF PRESENT ILLNESS: The patient is a 57-year-old white female with a history of end-stage renal disease, on chronic maintenance hemodialysis; history of hypertension, difficult to control, on multiple blood pressure medications. History of hyperkalemia. History of LVH with valvular heart disease, MR/TR/AI. History of ASHD, status post PTCA stents, history of HI. History of CHF. History of COPD with long history of cigarette smoking, only recently stopped. History of significant peripheral vascular disease with a poorly healing right leg ulcer, status post recent skin graft. History of secondary hyperparathyroidism, history of hypothyroidism, history of mild glucose intolerance. The patient presents once again to the emergency room complaining of chest tightness and was noted to have extremely high blood pressure readings with systolics in the 220 range and diastolics approaching 100. The patient was once again admitted to the hospital for evaluation of her hypertension and her complaints. The patient has had multiple admissions to the hospital for a similar presentation. It is completely unclear to me whether or not the patient is taking her blood pressure medications at home in a timely and accurate matter. She does remain on multiple antihypertensive medications. She is even taking medications that would make her at risk to develop hyperkalemia in an attempt to control her blood pressure. Presently, 1 day into the hospitalization, the patient no longer has any chest pain, her cardiac enzymes are negative and her blood pressure has improved. The patient did have dialysis today as per routine. PAST MEDICAL HISTORY: Significant for end-stage renal disease, on chronic maintenance hemodialysis, history of hypertension with uncontrolled hypertension and multiple admissions for hypertensive emergencies. History of LVH with mild valvular heart disease, MR/TR/AI. History of ASHD, status post PTCA stents, history of HI, history of CHF. History of COPD with a long history of cigarette smoking. History of significant peripheral vascular disease. History of secondary hyperparathyroidism, hypothyroidism and mild glucose intolerance. MEDICATIONS AT HOME: Include that of Percocet p.r.n., Keppra for seizure disorder, Catapres, Norvasc, Revatio, Renagel, Protonix, Procardia, Zestril, Synthroid, Xopenex, Trandate, Colace, Plavix, and Tylenol p.r.n. ALLERGIES: THE PATIENT IS ALLERGIC TO CIPRO, HYDRALAZINE, VANCOMYCIN, AND CAT SCAN DYE. MEDICATIONS IN THE HOSPITAL: Include that of clonidine, Colace, DuoNeb, Keppra, Norvasc, Percocet p.r.n., Plavix, Procardia, Protonix, Renagel, Revatio, Synthroid, Trandate, Tylenol p.r.n., and Zestril. SOCIAL HISTORY: Ex-smoker. No history of alcohol use. No history of substance abuse. FAMILY HISTORY: Positive for hypertension. REVIEW OF SYSTEMS: 10+ systems reviewed with patient, all negative except for what is noted above. PHYSICAL EXAMINATION: GENERAL: The patient is currently seen sitting up in bed, in no acute distress on 3R. Blood pressure has significantly improved. VITAL SIGNS: Blood pressure presently is 131/54, temperature 99.4, with a T-max of 100. Pulse 72 with a respiratory rate of 16, and oxygen saturation of 95%. HEENT: Exam shows her to be normocephalic, atraumatic. Conjunctivae are pale. Sclerae are nonicteric. Pupils are equal, reactive to light and accommodation. Extraocular muscles are intact. Posterior pharynx is normal. NECK: Supple. No neck vein distention. No thyromegaly. No lymphadenopathy. No bruits. CHEST: Clear to auscultation and percussion with no rales, rhonchi or wheezing. The patient has a right chest wall PermCath. CARDIOVASCULAR: Regular rate and rhythm. No S3. No S4. No rub. MR/TR/AI. ABDOMEN: Soft. Bowel sounds normal. No rebound. No guarding or masses. BACK: No CVAT. No spinal tenderness. EXTREMITIES: She has a dressing over her right lower extremity in the area of her skin graft. She has a clotted AV fistula in the right upper extremity, and a right chest wall PermCath. No cyanosis, clubbing or edema. NEURO: Shows her to be alert and oriented x3, with no gross focal motor or sensory deficits noted. LABORATORY DATA AND IMAGING: CBC, white blood cell count today 4.9, hemoglobin down from 9.9 to 8.8. Platelet count is 247,000. Coags are normal. Chemistry showed a potassium of 5.9 predialysis today. BUN 74, with a creatinine of 6.9, consistent with ESRD. Glucose 120. Calcium is 10.0, with a phosphorus of 7.1. Magnesium level 2.4. Troponin levels were all normal. BNP was elevated at 161,000. Albumin is 3.8. Microbiology, no results as of yet. Admitting chest x-ray showed no acute pulmonary disease with cardiomegaly. Admitting EKG showed normal sinus rhythm with LVH and left atrial enlargement. ASSESSMENT: 1. Uncontrolled hypertension once again. It is entirely unclear to me whether the patient is taking her blood pressure medications at home in a timely manner. She insists that she is. The only thing I can note is that when she is given the medications in the hospital, her blood pressure is controlled; at home, her blood pressure seems to spike continuously. Whatever be it may the case, I stressed the patient the need to be compliant with her medication. This will help her avoid recurrent admissions to the hospital with uncontrolled hypertension, hypertensive emergencies, hypertensive urgency, seizures related to hypertension and hypertensive encephalopathy. 2. End-stage renal disease. The patient will continue Thursday, , Thursday dialysis. 3. History of arteriosclerotic heart disease, status post percutaneous transluminal coronary angioplasty stents, history of valvular heart disease, history of myocardial infarction, history of congestive heart failure; these all appeared to be stable. Her troponins at present are negative. So there is no evidence for ongoing coronary ischemia. 4. History of chronic obstructive pulmonary disease secondary to a very long history of cigarette smoking. The patient only recently stopped. The patient will continue inhalation therapy. 5. History of severe peripheral vascular disease. The patient has a healing wound of her right lower extremity, status post skin graft. 6. History of secondary hyperparathyroidism. Continue to monitor her diet carefully. The patient should remain on a renal diet. Her phosphorus level was 7.1. The patient will continue binder therapy and adjustments will be made in her binders as necessary. 7. History of hypothyroidism. The patient will continue thyroid replacement therapy. 8. History of mild glucose intolerance with no evidence for diabetes. PLAN: 1. Continue Thursday, , Thursday dialysis. 2. Continue to challenge her dry weight with the hope of lowering her blood pressure by decreasing her volume status. 3. Continue all blood pressure medications as per her home regimen. 4. Continue dietary restrictions and phosphorus binders. 5. Discussed with Dr. Coffman in detail. Unfortunately, I have no answers for this patient's uncontrolled hypertension other than the fact that I think she is not compliant in taking medications in a timely manner to control her blood pressure. Thank you for letting me partake and share in the care of our mutual patient. Sampson Hutchins MD
[2017-12-01 22:23] VITALS: RESP 20
--- NOTE | 2017-12-01 23:03 | PN ---
DATE: SUBJECTIVE: Patient is 57 years old, came to the emergency room because of chest pain, pressure, and nausea. Has been on antihypertensive. Blood pressure is somewhat controlled. PHYSICAL EXAMINATION: GENERAL: She is still complaining of headache, complaining of generalized aches and pain. VITAL SIGNS: She is afebrile. Pulse 82, respirations 18, blood pressure 115/60. LUNGS: Bilateral fair airflow. No rhonchi or crackles. HEART: S1, S2 audible. ABDOMEN: Soft, nontender. No rebound, no guarding. NEUROLOGIC: She is awake, alert, oriented, communicative. LABORATORY EXAMINATION: WBC is 4.9, hemoglobin 8.8, hematocrit 29.8, platelet of 247. Chemistry: Sodium 141, potassium 5.9, chloride 99, CO2 of 26, BUN 74, creatinine 6.9, blood sugar of 120. ASSESSMENT: 1. Chest pain, doubt myocardial infarction. 2. Uncontrolled hypertension. 3. Headache. 4. End-stage renal disease, on hemodialysis. 5. History of peripheral vascular disease status post right superficial femoral artery and popliteal bypass. 7. Status post right carotid angioplasty. 8. Seizure disorder. 9. History of intracranial bleed. PLAN: Currently, patient's blood pressure seems to be under control. We will give her her usual clonidine, Colace, nebulizer treatment. We will keep her on Keppra. She will receive 2 mg of morphine and give her amlodipine, Protonix and if patient remains stable, possible discharge in a.m. Brittany Coffman MD
[2017-12-02] MEDS: Pantoprazole 40 mg EC Tab PO SCH (06:31)
[2017-12-02] MEDS: Levothyroxine 75 MCG TAB PO SCH (06:31)
[2017-12-02] MEDS: Oxycodone/Acetaminophen 10/325 mg Tab PO PRN ×2 (08:02→17:00)
[2017-12-02] MEDS: Sildenafil 20 MG TAB PO SCH ×3 (09:41→17:01)
[2017-12-02] MEDS: NIFEdipine 90 mg ER Tab PO SCH (09:42)
[2017-12-02] MEDS: Albuterol-Ipratrop 3 mg / 0.5 (3 ml) UD IH PRN (11:28)
--- NOTE | 2017-12-02 15:42 | PN ---
DATE: 12/02/2017 REASON FOR CONSULTATION AND FOLLOWUP: Uncontrolled hypertension; chest pain, resolving; coronary artery disease; peripheral arterial disease; end-stage renal disease, on dialysis; and complaint of headache. SUBJECTIVE: The patient denies any chest pain, shortness of breath, complaint of headache. PHYSICAL EXAMINATION: GENERAL: Not in apparent distress. VITAL SIGNS: Temperature afebrile, heart rate is 72, blood pressure 140/ . HEENT: PERRLA, intact. NECK: Supple. No carotid bruits or thyromegaly. CHEST: Clear to auscultation. HEART: S1 and S2 regular. ABDOMEN: Soft. EXTREMITIES: Clubbing and cyanosis negative. LABORATORY DATA: Blood workup as follows: WBC 4.9, hemoglobin 8.8, hematocrit 29.8, and platelet count 247,000. Chemistry shows sodium 141, potassium 5.9, chloride 99, carbon dioxide 26, anion gap of 23, BUN 74, and creatinine 6.7. Troponin 0.05 negative, 0.04, 0.04. IMPRESSION: Uncontrolled hypertension, improving now; headache. No evidence of acute myocardial infarction. Complained of headache; sed rate was 7, and there does not appear to be any connective tissue disorder or temporal arteritis. The patient also complains of blurring of the vision, but erythrocyte sedimentation rate is 7, also systemic lupus erythematosus profile has been sent and it may take a couple of days to get it; history of coronary artery disease, non-STEMI, history of PTCA of OM1; end-stage renal disease, on dialysis; history of mesenteric ischemia, status post mesenteric angiogram was negative; history of peripheral arterial disease, occluded, status post carotid artery stenting. RECOMMENDATIONS: Medical management, no intervention is planned, reasonably controlled blood pressure. Once stable, possibly discharge home. Please also consider long-term care because after getting discharged the patient bounced back and admitted with uncontrolled hypertension, but the patient in the hospital gets controlled blood pressure so needs possibly supervised medical treatment. Thank you Dr. Coffman, for providing me the opportunity in taking care of the patient. Pj Ontiveros MD cc: Brittany Coffman MD
--- NOTE | 2017-12-03 01:03 | PN ---
DATE: 12/02/2017SUBJECTIVE: The patient is seen sitting in a chair. She is awake, she is alert. She reports that she is feeling better today. She still has difficulty breathing. She denies any chest tightness. She denies any nausea or vomiting at present. PHYSICAL EXAMINATION: GENERAL: middle-aged lady, sitting in a chair. VITAL SIGNS: Blood pressure 136/58, heart rate 82, respiratory rate 20, temperature 98. HEENT: Normocephalic, atraumatic. NECK: Supple, no JVD. LUNGS: Bilateral equal air entry, bilateral equal expansion. No rales. CARDIAC: S1, S2, regular rate and rhythm. No murmur, no rub. ABDOMEN: Soft, nondistended, nontender, bowel sounds present. EXTREMITIES: No lower extremity edema. LABORATORY DATA : No new labs. MEDICATIONS: List reviewed. ASSESSMENT: 1. Hyperkalemia, resolved. 2. Uncontrolled hypertension. 3. End-stage renal disease. 4. Coronary artery disease. 5. Chronic obstructive pulmonary disease. PLAN: 1. The patient had stable dialysis yesterday. Potassium is now normal. 2. Continue antihypertensives. 3. No objection to discharge. Tamanna Smith MD
--- NOTE | 2017-12-03 05:58 | DS ---
HOSPITAL COURSE: The patient is a 57-year-old who came to emergency room because of chest pain, nausea, headache, right-sided shakiness. Patient's blood pressure was 125/95, so she was admitted for control of her hypertension, has been on antihypertensives, still complaining of feeling weak, dizzy, lightheaded, leg pain, feel shaky. PHYSICAL EXAMINATION: VITAL SIGNS: She is afebrile, pulse 62, respirations 20, blood pressure 136/58. LUNGS: Bilateral good airflow. No rhonchi or crackles. HEART: S1, S2 audible. ABDOMEN: Soft, nontender. No rebound, no guarding. NEUROLOGIC: Patient is awake, alert, oriented. EXTREMITIES: Bilateral leg cramps, right more than the left. ASSESSMENT: 1. Uncontrolled hypertension. 2. End-stage renal disease on hemodialysis. 3. Hyperlipidemia. 4. Pulmonary hypertension. 5. Severe peripheral vascular disease status post bypass surgery. PLAN: Patient is being discharged home. She will resume labetalol 300 mg three times a day, clonidine 0.2 three times a day, Procardia 90 mg daily, lisinopril 40 mg daily, Revatio 10 mg daily, and she will use her nebulizer treatment. We will follow up patient in the office in a week. Brittany Coffman MD
[2017-12-03 11:11] VITALS: O2SAT 97
[2017-12-03 11:23] VITALS: BP 136/58; PULSE 82
[2017-12-03 11:27] VITALS: TEMP 97.4
== END 2017-12-02 19:00 | disposition home or self-care (01) | DRG 304 ==
LOC: ED 10:01 → ERH 15:19 → 3RSO 18:19 → OBSVTOIN 12-01 11:35
PROVIDERS: ADMIT Internal Medicine; ATTEND Internal Medicine
DX: I16.1 Hypertensive emergency (principal); N18.6 End stage renal disease; N25.81 Secondary hyperparathyroidism of renal origin; D64.9 Anemia, unspecified; E03.9 Hypothyroidism, unspecified; I13.2 Hypertensive heart and chronic kidney disease with heart failure and with stage 5 chronic kidney disease, or end stage renal disease; I50.9 Heart failure, unspecified; M32.9 Systemic lupus erythematosus, unspecified; E11.22 Type 2 diabetes mellitus with diabetic chronic kidney disease; E11.51 Type 2 diabetes mellitus with diabetic peripheral angiopathy without gangrene; E78.5 Hyperlipidemia, unspecified; E87.5 Hyperkalemia; G40.909 Epilepsy, unspecified, not intractable, without status epilepticus; H91.91 Unspecified hearing loss, right ear; I25.10 Atherosclerotic heart disease of native coronary artery without angina pectoris; I25.2 Old myocardial infarction; I27.20 Pulmonary hypertension, unspecified; J44.9 Chronic obstructive pulmonary disease, unspecified; K27.9 Peptic ulcer, site unspecified, unspecified as acute or chronic, without hemorrhage or perforation; Z79.02 Long term (current) use of antithrombotics/antiplatelets; Z79.899 Other long term (current) drug therapy; Z86.73 Personal history of transient ischemic attack (TIA), and cerebral infarction without residual deficits; Z87.11 Personal history of peptic ulcer disease; Z87.891 Personal history of nicotine dependence; Z95.5 Presence of coronary angioplasty implant and graft; Z99.2 Dependence on renal dialysis

== ENCOUNTER 2017-12-07 14:56 | Emergency (ER) | payer MEDICARE ==
[2017-12-07 15:33] VITALS: BMI 21.6
--- NOTE | 2017-12-07 15:52 | ED PDOC ---
Arrival/HPI - General Historian: Patient, Family - History of Present Illness Symptom Onset: Sudden Symptom Course: Worsening Activities at Onset: Rest <Esteban Nolan - Last Filed: 12/07/17 18:16> - History of Present Illness Time/Duration: 24 hours Severity Level: Severe Context: Home <Socrates Moura - Last Filed: 12/07/17 18:50> - General Chief Complaint: Chest Pain Time Seen by Provider: 12/07/17 15:07 - History of Present Illness Narrative History of Present Illness (Text): 12/07/17 15:49 Patient is a 57F w/ PMH of ESRD on dialysis, CHF, PAD, histry of NH and strokes comes to the ED with a CC of vomiting and abdominal pain. States she started to feel ill this morning. Ate one time but could not keep it down. Since that time she she has had continuing abdominal pain and vomiting. She as on the way to her PMD today but felt to ill so decided to come to ED. No chest pain, SOB, cough, fever, diarrhea. (Esteban Nolan) Past Medical History - Past History Past History: No Previous - Infectious Disease Hx of Infectious Diseases: None - Tetanus Immunization Tetanus Immunization: Unknown - Cardiac Hx Cardiac Disorders: (mi x2 02/2017, dvt l leg, pericardial window) Hx Angina: Yes Hx Cardiac Arrhythmia: Yes Hx Congestive Heart Failure: Yes Hx Hypertension: Yes Hx Pacemaker: No Hx Peripheral Edema: Yes (none at present time) Hx Peripheral Vascular Disease: Yes Other/Comment: cardiomyopathy,cad, pad, r arm fistula, r chest udall cath, double arterial bypass both legs due to poor circulations 04/2017 - Pulmonary Hx Asthma: Yes Hx Chronic Obstructive Pulmonary Disease (COPD): Yes Hx Emphysema: Yes Hx Pneumonia: Yes Hx Sleep Apnea: Yes - Neurological HX Cerebrovascular Accident: Yes Hx Migraine: Yes Hx Seizures: Yes Hx Transient Ischemic Attacks (TIA): Yes Other/Comment: ble numbness when ambulating, cold extremities,from mid october 2017 to present time pt had 4 tia's and seizures to go along with the strokes, c /o memory loss, weakness, falls, difficulty walking post multiple recent tia's, stent to "head" 04/2017 pt stated - HEENT Hx HEENT Disorder: Yes (hard of hearing,RIGHT EAR DEAF) Hx Blind: No Hx Cataracts: No Hx Difficulty Chewing: No Hx Epistaxis: No Hx Glaucoma: No Hx Macular Degeneration: No Other/Comment: tinnitus, - Renal Date of Last Dialysis Treatment: 11/28/17 - Endocrine/Metabolic Hx Diabetes Mellitus Type 2: Yes Hx Hypothyroidism: Yes Other/Comment: 2 cysts on thyroid - Hematological/Oncological Hx Blood Disorders: (blood transfusions) Hx Anemia: Yes - Integumentary Hx Dermatological Disorder: No (non healing sugical wound to right ankle) Other/Comment: r ankle wound,non healing surgical wound cared for by dr parada at wound center, wound 5.5 X 3.5 cm ,right buttocks red and open to air healed, SCARRED AREA.multiple skin discolorations to ble,EDEMA +1.Left thumb area with a 0.7 scabbed wound from rubbing to wheelchair, healedd - Musculoskeletal/Rheumatological Hx Falls: Yes (frequent recent) - Gastrointestinal Hx Gastrointestinal Disorders: Yes (POOR APPETITE,DIVERTICULITIS,GASTROENTERITIS ,GASTRITIS) Hx Gastroesophageal Reflux: Yes Other/Comment: diverticulosis, bloating, weight loss, poor appetite, constant nausea and vomiting, hiatal hernia x 2, colonoscopy x2, - Genitourinary/Gynecological Hx Genitourinary Disorders: Yes (ANURIC) Other/Comment: pt voids - Psychiatric Hx Anxiety: Yes Hx Emotional Abuse: No Hx Physical Abuse: No Hx Substance Use: No - Past Surgical History Past Surgical History: Unable to Obtain - Surgical History Hx Appendectomy: Yes Hx Cardiac Catheterization: Yes Hx Coronary Stent: Yes Hx Mastectomy: No Other/Comment: thoracentesis x2, r av fistula not working, right chest hd cath in use for hd , debridement with skin graft about [address] malik to right ankle ulcer, b/l artery bypass 04/2017 - Anesthesia Hx Anesthesia Reactions: No Hx Malignant Hyperthermia: No - Suicidal Assessment Feels Threatened In Home Enviroment: No <Esteban Nolan - Last Filed: 12/07/17 18:16> - Provider Review Nursing Documentation Reviewed: Yes - Travel History Have you recently traveled outside [place] w/in the past 3 mons?: No - Reproductive Menopause: Yes Currently : No <Socrates Moura - Last Filed: 12/07/17 18:50> Family/Social History - Physician Review Nursing Documentation Reviewed: Yes Family/Social History: Unknown Family HX Smoking Status: Former Smoker Hx Alcohol Use: No Hx Substance Use: No Hx Substance Use Treatment: No <JesseluisEsteban edward - Last Filed: 12/07/17 18:16> - Physician Review Nursing Documentation Reviewed: Yes <Socrates Moura - Last Filed: 12/07/17 18:50> Allergies/Home Meds <Esteban Nolan - Last Filed: 12/07/17 18:16> <Socrates Moura - Last Filed: 12/07/17 18:50> Allergies/Adverse Reactions: Allergies ciprofloxacin Allergy (Verified 11/30/17 10:09) RASH hydralazine Allergy (Verified 11/30/17 10:09) RASH vomiting vancomycin Allergy (Verified 11/30/17 10:09) SHORTNESS OF BREATH palpitations ct dye Allergy (Uncoded 11/30/17 10:09) RASH Home Medications: Home Meds Medication Instructions Recorded Confirmed Lisinopril [Zestril] 40 mg PO DAILY 10/05/17 12/07/17 Sildenafil [Revatio] 20 mg PO DAILY 10/05/17 12/07/17 Clopidogrel [Plavix] 1 tab PO DAILY 11/18/17 12/07/17 Docusate [Colace] 1 cap PO TID 11/18/17 12/07/17 NIFEdipine ER [Procardia XL] 1 tab PO DAILY 11/18/17 12/07/17 Oxycodone HCl/Acetaminophen 1 tab PO QID PRN 11/18/17 12/07/17 [Endocet 10-325 mg Tablet] Review of Systems - Review of Systems Constitutional: Normal Eyes: Normal ENT: Normal Respiratory: Normal Cardiovascular: Normal Gastrointestinal: Abdominal Pain, Nausea, Vomiting Genitourinary Female: Normal Musculoskeletal: Normal Skin: Normal Neurological: Normal Endocrine: Normal Hemo/Lymphatic: Normal Psychiatric: Normal <JesseluiswagnerEsteban - Last Filed: 12/07/17 18:16> Physical Exam Vital Signs Reviewed: Yes Temperature: Afebrile Blood Pressure: Normal Pulse: Regular Respiratory Rate: Tachypneic Appearance: Positive for: Well-Appearing, Non-Toxic, Comfortable Pain Distress: None Mental Status: Positive for: Alert and Oriented X 3 - Systems Exam Head: Present: Atraumatic, Normocephalic Pupils: Present: PERRL Extroacular Muscles: Present: EOMI Conjunctiva: Present: Normal Mouth: Present: Moist Mucous Membranes Neck: Present: Normal Range of Motion Respiratory/Chest: Present: Clear to Auscultation, Good Air Exchange. No: Respiratory Distress, Accessory Muscle Use Cardiovascular: Present: Regular Rate and Rhythm, Normal S1, S2. No: Murmurs Abdomen: No: Tenderness, Distention, Peritoneal Signs Back: Present: Normal Inspection Upper Extremity: Present: Normal Inspection. No: Cyanosis, Edema Lower Extremity: Present: Normal Inspection. No: Edema Neurological: Present: GCS=15, CN II-XII Intact, Speech Normal Skin: Present: Warm, Dry, Normal Color. No: Rashes Psychiatric: Present: Alert, Oriented x 3, Normal Insight, Normal Concentration <Esetban Nolan - Last Filed: 12/07/17 18:16> Vital Signs Temp Pulse Resp BP Pulse Ox 12/07/17 18:41 97.9 F 89 16 180/86 H 99 12/07/17 15:34 98.1 F 90 16 100 Medical Decision Making <Esteban Nolan - Last Filed: 12/07/17 18:16> Re-evaluation Time: 18:25 Reassessment Condition: Improving,but remains with symptoms - RAD Interpretation Operations Dispatcher: Radiologist - EKG Interpretation Interpreted by ED Physician: Yes Type: 12 lead EKG Comparison: Similar to previous EKG <Socrates Moura - Last Filed: 12/07/17 18:50> ED Course and Treatment: 12/07/17 15:55 57F CC of vomiting and abdominal pain - cxr - ekg - zofran - protonix - reeval 12/07/17 17:24 - patient feeling much better, pain resolved. - CXR shows no pulmonary congestion, no effusion, pending official read - reglan for continue nausea despite zofran (Esteban Nolan) Patient seen with the resident. I performed a physical exam of the patient and discussed their management with resident. I have reviewed the resident note and agree with the assessment and plan of care. Vital signs reviewed: elevated BP, otherwise Within normal limits alert/awake, GCS = 15, oriented x 3, resting in bed, uncomfortable, cooperative , interactive NC/AT; mild bi-temporal wasting PERRLA, EOMI, sclera anicteric, no nystagmus, no photophobia NECK: intact ROM, no midline tenderness, no nuchal rigidity, no meningeal signs CTA b/l, no w/r/r +S1, +S2, no m/r/r +BS, soft/nd/nt, well nourished patient ext: intact ROM, strength 5/5 grossly intact in all limbs, neurovasc intact b/l SKIN: cap refill ~ 1 sec, no ulcerations, no petechiae, no rashes NEURO: CNII-XII WNL, no facial asymmetries, no slurr speech NIH stroke scale ~ 0 Impression: vomiting and chronic atypical chest pain I have considered all the differential diagnosis regarding the patient's chief medical complaints/clinical findings, including but are not limited to: vomiting and chronic atypical chest pain A/P: vomiting and abdominal pain -- EKG -- Chest X-ray -- Morphine, Zofran, and Protonix -- Supportive Care -- Observe 12/07/17 17:46 pt is feeling improved pt tolerated po no vomiting is noted pt/family are made aware of pt's medical results pt is encouraged bland diet x 1-2 days pt will f/u as directed pt will be discharged home 12/07/17 18:50 (Socrates Moura) - RAD Interpretation Narrative RAD Interpretations (Text): 12/07/17 18:42 HISTORY: SOB COMPARISON: 11/30/2017 FINDINGS: LUNGS: No active pulmonary disease. PLEURA: No significant pleural effusion identified, no pneumothorax apparent. CARDIOVASCULAR: Normal. OSSEOUS STRUCTURES: No significant abnormalities. VISUALIZED UPPER ABDOMEN: Normal. OTHER FINDINGS: Right-sided Port-A-Cath and dialysis catheter unchanged IMPRESSION: No active disease. (Socrates Moura) Radiology Orders: 12/07/17 15:42 CHEST PORTABLE [RAD] Stat - EKG Interpretation EKG Interpretation (Text): 12/07/17 18:42 NSR at 90 bpm, normal axis, no ectopy, voltage criteria LVH, inverted T in leads I, II, L, F, V5-6, nonspecific st changes, ABNL EKG; no gross changes compare with old ekg 11/2017 (Socrates Moura) - Medication Orders Current Medication Orders: Discontinued Medications Metoclopramide HCl (Reglan) 10 mg IVP STAT STA Stop: 12/07/17 16:59 Last Admin: 12/07/17 17:50 Dose: 10 mg IVP Administration Document 12/07/17 17:50 MS (Rec: 12/07/17 17:50 MS [facility] [id number]) Charges for Administration # of IVP Administrations 1 Morphine Sulfate (Morphine) 4 mg IVP STAT STA Stop: 12/07/17 16:08 Last Admin: 12/07/17 16:41 Dose: 4 mg MAR Pain Assessment Document 12/07/17 16:41 MS (Rec: 12/07/17 16:42 MS [facility] [id number]) Pain Reassessment Is this a pain reassessment? No Sleep Is patient sleeping during reassessment? No Presence of Pain Presence of Pain Yes Pain Scale Used Pain Scale Used Numeric Location Pain Location Body Site Generalized Description Description Intermittent Intensity of Pain at present 8 Pain Behavior Moaning Guarding IVP Administration Document 12/07/17 16:41 MS (Rec: 12/07/17 16:42 MS [facility] [id number]) Charges for Administration # of IVP Administrations 1 Ondansetron HCl (Zofran Inj) 4 mg IVP STAT STA Stop: 12/07/17 15:43 Last Admin: 12/07/17 16:25 Dose: 4 mg IVP Administration Document 12/07/17 16:25 MS (Rec: 12/07/17 16:41 MS [facility] [id number]) Charges for Administration # of IVP Administrations 1 Pantoprazole Sodium (Protonix Inj) 40 mg IVP STAT STA Stop: 12/07/17 15:43 Last Admin: 12/07/17 16:25 Dose: 40 mg IVP Administration Document 12/07/17 16:25 MS (Rec: 12/07/17 16:40 MS [facility] [id number]) Charges for Administration # of IVP Administrations 1 Disposition/Present on Arrival - Present on Arrival History of DVT/PE: No History of Uncontrolled Diabetes: No Urinary Catheter: No History of Decub. Ulcer: No History Surgical Site Infection Following: None - Disposition Have Diagnosis and Disposition been Completed?: Yes Disposition Time: 18:17 Patient Plan: Discharge <Esteban Nolan - Last Filed: 12/07/17 18:16> - Present on Arrival Any Indicators Present on Arrival: No <Socrates Moura - Last Filed: 12/07/17 18:50> - Disposition Diagnosis: Vomiting, Chest pain of unknown etiology, ESRD (end stage renal disease) on dialysis Disposition: HOME/ ROUTINE Condition: STABLE Discharge Instructions (ExitCare): Chest Pain (ED), Nausea and Vomiting, Adult (DC), Dialysis and Diet, End Stage Kidney Disease (DC) Print Language: YI Additional Instructions: Ms. Thakur, thank you for letting us take care of you today. Your provider was Dr. Nolan. You were treated for Nausea, Vomiting, Abdominal pain. The emergency medical care you received today was directed at your acute symptoms. If you were prescribed any medication, please fill it and take as directed. It may take several days for your symptoms to resolve. Return to the Emergency Department if your symptoms worsen, do not improve, or if you have any other problems. Please contact your doctor or call one of the physicians/clinics you have been referred to that are listed on the Patient Visit Information form that is included in your discharge packet. Bring any paperwork you were given at discharge with you along with any medications you are taking to your follow up visit. Our treatment cannot replace ongoing medical care by a primary care provider (PCP) outside of the emergency department. Thank you for allowing the [facility] team to be part of your care today. If you had an X-Ray or CT scan: A Radiologist will review the ED reading if any change in treatment is needed we will contact you. If you had a blood, urine, or wound culture: It will take several days for the results, if any change in treatment is needed we will contact you. If you had an STI test: It will take 48 hours for the results. Please call after 1 week if you have not heard back. Prescriptions: Ondansetron ODT [Zofran ODT] 4 mg PO Q6H PRN 5 Days odt PRN Reason: Nausea/Vomiting Referrals: [facility] Barbara Churchill, [Primary Care Provider] - Follow up with primary Brittany Coffman MD [Staff Provider] - Follow up with primary Forms: [employer] (Nepalese)
[2017-12-07] MEDS ORDERED: Morphine 4 mg/ml ISec IVP STA (16:07)
[2017-12-07 16:14] VITALS: RESP 16
--- NOTE | 2017-12-07 16:22 | RAD ---
HISTORY: SOB COMPARISON: 11/30/2017 FINDINGS: LUNGS: No active pulmonary disease. PLEURA: No significant pleural effusion identified, no pneumothorax apparent. CARDIOVASCULAR: Normal. OSSEOUS STRUCTURES: No significant abnormalities. VISUALIZED UPPER ABDOMEN: Normal. OTHER FINDINGS: Right-sided Port-A-Cath and dialysis catheter unchanged IMPRESSION: No active disease.
[2017-12-07 18:43] VITALS: BP 180/86; PULSE 89; TEMP 97.9; O2SAT 99
--- NOTE | 2017-12-07 19:19 | CARD ---
APPROVED REPORT EKG Measurement Heart [id number] <Conclusion> Normal sinus rhythm Possible Left atrial enlargement Left ventricular hypertrophy with repolarization abnormality Prolonged QT Abnormal ECG
== END 2017-12-07 18:41 | disposition home or self-care (01) ==
LOC: ED 14:56
DX: I12.0 Hypertensive chronic kidney disease with stage 5 chronic kidney disease or end stage renal disease (principal); N18.6 End stage renal disease; Z99.2 Dependence on renal dialysis; I50.9 Heart failure, unspecified; Z87.891 Personal history of nicotine dependence; E11.9 Type 2 diabetes mellitus without complications; E03.9 Hypothyroidism, unspecified
CPT/HCPCS: 71045; 93005; 96374; 96375; 99282; C9113; J2270; J2405; J2765

== ENCOUNTER 2017-12-08 17:44 | Emergency (ER) | payer MEDICARE ==
[2017-12-08 17:50] VITALS: BMI 20.5
[2017-12-08 18:00] VITALS: BP 184/74; PULSE 78; RESP 18; TEMP 98; O2SAT 100
[2017-12-08] MEDS ORDERED: Sodium Chloride 0.9% 500 ML IV STA (18:46)
--- NOTE | 2017-12-08 19:22 | ED PDOC ---
Arrival/HPI - General Chief Complaint: Chest Pain Time Seen by Provider: 12/08/17 17:49 Historian: Patient - History of Present Illness Narrative History of Present Illness (Text): Patient is a 57 yr old female with a PMH of ESRD on dialysis, CHF, PAD, history of NM and strokes comes to the ED complaining of vomiting 8 times today and left side chest pain that refers up the left side of the neck on inspiration. States she has had no change in her symptoms since she was last seen in the ED ( 11/06/17). She reports eating a few bites of a sandwich but then vomited repeatedly this morning and has constant pain. She denies SOB, cough, fever, diarrhea, KAUR, chills, GIB change in bladder and bowel. PMD: Dr. Coffman Time/Duration: > month Symptom Onset: Gradual Symptom Course: Unchanged Quality: Aching, Pressure Severity Level: 3 Context: Home Past Medical History - Provider Review Nursing Documentation Reviewed: Yes - Travel History Have you recently traveled outside [place] w/in the past 3 mons?: No - Past History Past History: No Previous - Infectious Disease Hx of Infectious Diseases: None - Tetanus Immunization Tetanus Immunization: Unknown - Cardiac Hx Cardiac Disorders: Yes (mi x2 02/2017, dvt l leg, pericardial window) Hx Angina: Yes Hx Cardiac Arrhythmia: Yes Hx Congestive Heart Failure: Yes Hx Hypertension: Yes Hx Pacemaker: No Hx Peripheral Edema: Yes (none at present time) Hx Peripheral Vascular Disease: Yes Other/Comment: cardiomyopathy,cad, pad, r arm fistula, r chest udall cath, double arterial bypass both legs due to poor circulations 04/2017 - Pulmonary Hx Respiratory Disorders: Yes Hx Asthma: Yes Hx Chronic Obstructive Pulmonary Disease (COPD): Yes Hx Emphysema: Yes Hx Pneumonia: Yes Hx Sleep Apnea: Yes - Neurological Hx Neurological Disorder: Yes HX Cerebrovascular Accident: Yes Hx Migraine: Yes Hx Seizures: Yes Hx Transient Ischemic Attacks (TIA): Yes Other/Comment: ble numbness when ambulating, cold extremities,from mid october 2017 to present time pt had 4 tia's and seizures to go along with the strokes, c /o memory loss, weakness, falls, difficulty walking post multiple recent tia's, stent to "head" 04/2017 pt stated - HEENT Hx HEENT Disorder: Yes (hard of hearing,RIGHT EAR DEAF) Other/Comment: tinnitus, - Renal Hx Renal Disorder: Yes Date of Last Dialysis Treatment: 12/08/17 Other/Comment: Tues/Thurs/Sat - Endocrine/Metabolic Hx Endocrine Disorders: Yes Hx Diabetes Mellitus Type 2: Yes Hx Hypothyroidism: Yes Other/Comment: 2 cysts on thyroid - Hematological/Oncological Hx Blood Disorders: Yes (blood transfusions) Hx Anemia: Yes - Integumentary Hx Dermatological Disorder: Yes (non healing sugical wound to right ankle) Other/Comment: r ankle wound,non healing surgical wound cared for by dr parada at wound center, wound 5.5 X 3.5 cm ,right buttocks red and open to air healed, SCARRED AREA.multiple skin discolorations to ble,EDEMA +1.Left thumb area with a 0.7 scabbed wound from rubbing to wheelchair, healedd - Musculoskeletal/Rheumatological Hx Musculoskeletal Disorders: Yes Hx Falls: Yes (frequent recent) - Gastrointestinal Hx Gastrointestinal Disorders: Yes (POOR APPETITE,DIVERTICULITIS,GASTROENTERITIS ,GASTRITIS) Hx Gastroesophageal Reflux: Yes Other/Comment: diverticulosis, bloating, weight loss, poor appetite, constant nausea and vomiting, hiatal hernia x 2, colonoscopy x2, - Genitourinary/Gynecological Hx Genitourinary Disorders: Yes (ANURIC) Other/Comment: pt voids - Psychiatric Hx Psychophysiologic Disorder: Yes Hx Anxiety: Yes Hx Substance Use: No - Past Surgical History Past Surgical History: Unable to Obtain - Surgical History Hx Appendectomy: Yes Hx Cardiac Catheterization: Yes Hx Coronary Stent: Yes Other/Comment: thoracentesis x2, r av fistula not working, right chest hd cath in use for hd , debridement with skin graft about [address] malik to right ankle ulcer, b/l artery bypass 04/2017 - Anesthesia Hx Anesthesia Reactions: No Hx Malignant Hyperthermia: No - Suicidal Assessment Feels Threatened In Home Enviroment: No Family/Social History - Physician Review Nursing Documentation Reviewed: Yes Family/Social History: Unknown Family HX Smoking Status: Former Smoker Hx Alcohol Use: No Hx Substance Use: No Hx Substance Use Treatment: No Allergies/Home Meds Allergies/Adverse Reactions: Allergies ciprofloxacin Allergy (Verified 12/08/17 17:51) RASH hydralazine Allergy (Verified 12/08/17 17:51) RASH vomiting vancomycin Allergy (Verified 12/08/17 17:51) SHORTNESS OF BREATH palpitations ct dye Allergy (Uncoded 12/08/17 17:51) RASH Home Medications: Home Meds Medication Instructions Recorded Confirmed Lisinopril [Zestril] 40 mg PO DAILY 10/05/17 12/08/17 Sildenafil [Revatio] 20 mg PO DAILY 10/05/17 12/08/17 Clopidogrel [Plavix] 1 tab PO DAILY 11/18/17 12/08/17 Docusate [Colace] 1 cap PO TID 11/18/17 12/08/17 NIFEdipine ER [Procardia XL] 1 tab PO DAILY 11/18/17 12/08/17 Oxycodone HCl/Acetaminophen 1 tab PO QID PRN 11/18/17 12/08/17 [Endocet 10-325 mg Tablet] Review of Systems - Review of Systems Constitutional: Normal Eyes: Normal ENT: Normal Respiratory: Normal. absent: SOB, Cough, Sputum, Wheezing, Other Cardiovascular: Chest Pain Gastrointestinal: Vomiting. absent: Normal, Abdominal Pain, Stool Changes, Constipation, Diarrhea, Nausea, Appetite Changes, Hematochezia, Hematemesis, Anorexia, Food Intolerance, Other Genitourinary Female: Normal Musculoskeletal: Normal Skin: Normal Neurological: Normal Endocrine: Normal Hemo/Lymphatic: Normal Psychiatric: Normal Physical Exam Vital Signs Reviewed: Yes Vital Signs Temp Pulse Resp BP Pulse Ox 12/08/17 17:58 98.0 F 78 18 184/74 H 100 Temperature: Afebrile Blood Pressure: Hypertensive Pulse: Regular Respiratory Rate: Normal Appearance: Positive for: Non-Toxic, Ill-Appearing, Uncomfortable Pain Distress: Moderate Mental Status: Positive for: Alert and Oriented X 3 - Systems Exam Head: Present: Atraumatic, Normocephalic Extroacular Muscles: Present: EOMI Conjunctiva: Present: Normal Mouth: Present: Moist Mucous Membranes Neck: Present: Normal Range of Motion Respiratory/Chest: Present: Clear to Auscultation, Good Air Exchange. No: Respiratory Distress, Accessory Muscle Use Cardiovascular: Present: Regular Rate and Rhythm, Normal S1, S2. No: Murmurs Abdomen: No: Tenderness, Distention, Peritoneal Signs Back: Present: Normal Inspection Upper Extremity: Present: Normal Inspection. No: Cyanosis, Edema Lower Extremity: Present: Normal Inspection. No: Edema Neurological: Present: GCS=15, CN II-XII Intact, Speech Normal, Motor Func Grossly Intact Skin: Present: Warm, Dry, Normal Color. No: Rashes Psychiatric: Present: Alert, Oriented x 3, Normal Insight, Normal Concentration Medical Decision Making ED Course and Treatment: 12/08/17 19:22 Impression Patient is a 57F w/ PMH of ESRD on dialysis, CHF, PAD, history of NM and strokes comes to the ED with a CC of vomiting and left side chest pain since she was discharged yesterday from the ED On exam, pt reports left side chest pain that radiates up to her neck when she inspires; lungs CTAB, no abdominal tenderness on palpation no significant change from assessment done yesterday Plan Labs, cardiac enzymes, BNP CXR, ECG fluids, pain management, anti-emetic Progress Note Labs and imaging reviewed and compared to previous labs Fluids and zofran, morphine admin Pt resting more comfortably, no vomiting while in the ED Dr. Moura and BARBI Brown discussed results of labs and options for managing pain and vomiting; a painter helper was recommended and pt receptive to the idea; follow-up with referral and Dr. Coffman in the next 24 hrs for on- going care Pt hemodynamically stable on DC; ambulated well out of the ED with her son. 12/08/17 21:30 - Lab Interpretations Lab Results: 12/08/17 19:11 12/08/17 19:11 Lab Results 12/08/17 19:11: Sodium 142, Potassium 4.5, Chloride 96 L, Carbon Dioxide 37 H, Anion Gap 13, BUN 34 H, Creatinine 3.6 H, Est GFR ( Amer) 16, Est GFR ( Non-Af Amer) 13, Random Glucose 177 H, Calcium 10.0, Magnesium 2.1, Total Bilirubin 0.3, AST 37 H, ALT 39, Alkaline Phosphatase 128 H, Lactate Dehydrogenase 513, Total Creatine Kinase 48, Troponin I 0.06, NT-Pro-B Natriuret Pep 778013 H, Total Protein 6.2, Albumin 3.8, Globulin 2.4, Albumin/ Globulin Ratio 1.6 12/08/17 19:11: WBC 7.9 D, RBC 3.58, Hgb 10.1 L, Hct 33.3 L, MCV 93.0, MCH 28.2 , MCHC 30.3 L, RDW 16.4 H, Plt Count 211, MPV 10.2, Gran % 79.6 H, Lymph % (Auto ) 9.7 L, [place] % (Auto) 8.3 H, Eos % (Auto) 2.1, Baso % (Auto) 0.3, Gran # 6.31, Lymph # (Auto) 0.8 L, [place] # (Auto) 0.7 H, Eos # (Auto) 0.2, Baso # (Auto) 0.02 I have reviewed the lab results: Yes Interpretation: No sign. chg./baseline - RAD Interpretation Narrative RAD Interpretations (Text): 12/08/17 23:40 Cardiomegaly on CXR, no change from previous imaging Radiology Orders: 12/08/17 18:44 CHEST PORTABLE [RAD] Stat De Icer: Radiologist - Medication Orders Current Medication Orders: Discontinued Medications Sodium Chloride (Sodium Chloride 0.9%) 500 mls @ 999 mls/hr IV .Q31M STA Stop: 12/08/17 19:16 Last Admin: 12/08/17 18:54 Dose: 999 mls/hr eMAR Start Stop Document 12/08/17 18:54 OCS (Rec: 12/08/17 18:56 OCS [id number]) Intravenous Solution Start Date 12/08/17 Start Time 18:55 End Date 12/08/17 End time 19:25 Total Infusion Time 30 Morphine Sulfate (Morphine) 2 mg IVP STAT STA Stop: 12/08/17 19:35 Last Admin: 12/08/17 20:14 Dose: 2 mg IVP Administration Document 12/08/17 20:14 RG (Rec: 12/08/17 20:14 RG [id number]) Charges for Administration # of IVP Administrations 1 Ondansetron HCl (Zofran Inj) 4 mg IVP STAT STA Stop: 12/08/17 19:28 Last Admin: 12/08/17 20:14 Dose: 4 mg IVP Administration Document 12/08/17 20:14 RG (Rec: 12/08/17 20:14 RG [id number]) Charges for Administration # of IVP Administrations 1 Pantoprazole Sodium (Protonix Inj) 40 mg IVP STAT STA Stop: 12/08/17 19:29 Last Admin: 12/08/17 20:08 Dose: 40 mg IVP Administration Document 12/08/17 20:08 RG (Rec: 12/08/17 20:14 GIOVANI [id number]) Charges for Administration # of IVP Administrations 1 Disposition/Present on Arrival - Present on Arrival Any Indicators Present on Arrival: Yes History of DVT/PE: No History of Uncontrolled Diabetes: No Urinary Catheter: No History of Decub. Ulcer: No History Surgical Site Infection Following: None - Disposition Have Diagnosis and Disposition been Completed?: Yes Diagnosis: Atypical chest pain, Vomiting, Chronic pain Disposition: HOME/ ROUTINE Disposition Time: 21:41 Patient Plan: Discharge Condition: STABLE Discharge Instructions (ExitCare): Nausea and Vomiting, Adult, Chronic Pain Additional Instructions: Dear Renetta, We hope that you feel better after receiving care today. Our recommendation, as discussed, is to follow up in the next day or two with Dr. Coffman as well as a painter helper. Continue taking the medication you are currently taking to control vomiting and pain. We wish you well! Referrals: Brittany Coffman MD [Primary Care Provider] - Follow up with primary Lux Rey MD [Staff Provider] - Follow up with primary Forms: [employer] (Italian)
[2017-12-08 19:28] LABS: BASO # 0.02 K/mm3 (0.0-2.0); BASO % 0.3 % (0.0-3.0); EOS # 0.2 (0.0-0.7); EOS % 2.1 % (1.5-5.0); GRAN # 6.31 (1.4-6.5); GRAN % 79.6 % (50.0-68.0); HEMOGLOBIN 10.1 g/dL (12.0-16.0); LYMPH # 0.8 (1.2-3.4); LYMPH % 9.7 % (22.0-35.0); MEAN CORPUSCULAR HEMOGLOBIN 28.2 pg (25.0-35.0); MEAN CORPUSCULAR HGB CONC 30.3 g/dl (31.0-37.0); MEAN PLATELET VOLUME 10.2 fl (7.0-11.0); MONO # 0.7 (0.1-0.6); MONO % 8.3 % (1.0-6.0); RBC 3.58 10^6/uL (3.5-6.1); RED CELL DISTRIBUTION WIDTH 16.4 % (11.5-14.5); WHITE BLOOD COUNT 7.9 10^3/ul (4.5-11.0)
[2017-12-08] MEDS ORDERED: Morphine 4 mg/ml ISec IVP STA (19:28)
[2017-12-08] MEDS ORDERED: Morphine 2 mg/ml ISec IVP STA (19:31)
[2017-12-08] MEDS ORDERED: Morphine 2 mg/2 mL syringe IVP STA (19:34)
[2017-12-08 19:45] LABS: TROPONIN I 0.06 ng/mL
[2017-12-08 19:52] LABS: ALB/GLOB RATIO 1.6 (1.1-1.8); ALBUMIN 3.8 g/dL (3.0-4.8)
--- NOTE | 2017-12-09 08:03 | RAD ---
HISTORY: chest pain COMPARISON: Portable chest 12/07/2017. FINDINGS: LUNGS: No active pulmonary disease. PLEURA: No significant pleural effusion identified, no pneumothorax apparent. CARDIOVASCULAR: Mild cardiomegaly is again seen but without pulmonary venous congestion. Multiple overlapping wall stents are reiterated at the region of the right axillary and subclavian artery region and possible on right brachial artery as well. A tunneled right central venous dialysis catheter is identified in place once again as well as a MediPort, with both appearing unchanged in position. OSSEOUS STRUCTURES: No significant abnormalities. VISUALIZED UPPER ABDOMEN: Normal. OTHER FINDINGS: None. IMPRESSION: No interval acute cardiopulmonary disease. Cardiomegaly appears stable.
--- NOTE | 2017-12-09 21:03 | CARD ---
APPROVED REPORT EKG Measurement Heart [id number] <Conclusion> Sinus rhythm with premature atrial complexes Left atrial enlargement Left ventricular hypertrophy with repolarization abnormality Prolonged QT Abnormal ECG
== END 2017-12-08 22:05 | disposition home or self-care (01) ==
LOC: ED 17:44
DX: R07.89 Other chest pain (principal); R11.10 Vomiting, unspecified; G89.29 Other chronic pain; E03.9 Hypothyroidism, unspecified; E11.9 Type 2 diabetes mellitus without complications; I12.0 Hypertensive chronic kidney disease with stage 5 chronic kidney disease or end stage renal disease; N18.6 End stage renal disease; Z99.2 Dependence on renal dialysis; Z87.891 Personal history of nicotine dependence
CPT/HCPCS: 71045; 80053; 82550; 83615; 83735; 83880; 84484; 85025; 93005; 96374; 96375; 99284; C9113; J2270; J2405; J7040

== ENCOUNTER 2017-12-10 11:45 | Emergency (ER) | payer MEDICARE, OTHER ==
[2017-12-10 12:12] VITALS: BMI 20.3
[2017-12-10] MEDS ORDERED: Oxycodone/Acetaminophen 5/325 mg Tab PO STA ×2 (12:25→17:48)
--- NOTE | 2017-12-10 12:25 | ED PDOC ---
Arrival/HPI - General Time Seen by Provider: 12/10/17 11:49 Historian: Patient - History of Present Illness Narrative History of Present Illness (Text): 12/10/17 12:21 A 57 year old female, whose past medical history includes ESRD with hemodialysis on //Thu, diabetes, hypertension, CHF, COPD, and seizure disorder, presents to the emergency department complaining of vomiting, chest pain and shortness of breath. Patient was seen in the emergency room twice this week for same complaints and discharged home. Patient is due for dialysis today at 14:00. Patient denies any fever, chills, diarrhea, abdominal pain, headache, dizziness or any other complaints. PMD: Dr. Coffman Past Medical History - Provider Review Nursing Documentation Reviewed: Yes - Past History Past History: No Previous - Infectious Disease Hx of Infectious Diseases: None - Tetanus Immunization Tetanus Immunization: Unknown - Cardiac Hx Cardiac Disorders: Yes (mi x2 02/2017, dvt l leg, pericardial window) Hx Angina: Yes Hx Cardiac Arrhythmia: Yes Hx Congestive Heart Failure: Yes Hx Hypertension: Yes Hx Pacemaker: No Hx Peripheral Edema: Yes (none at present time) Hx Peripheral Vascular Disease: Yes Other/Comment: cardiomyopathy,cad, pad, r arm fistula, r chest udall cath, double arterial bypass both legs due to poor circulations 04/2017 - Pulmonary Hx Respiratory Disorders: Yes Hx Asthma: Yes Hx Chronic Obstructive Pulmonary Disease (COPD): Yes Hx Emphysema: Yes Hx Pneumonia: Yes Hx Sleep Apnea: Yes - Neurological Hx Neurological Disorder: Yes HX Cerebrovascular Accident: Yes Hx Migraine: Yes Hx Seizures: Yes Hx Transient Ischemic Attacks (TIA): Yes Other/Comment: ble numbness when ambulating, cold extremities,from mid october 2017 to present time pt had 4 tia's and seizures to go along with the strokes, c /o memory loss, weakness, falls, difficulty walking post multiple recent tia's, stent to "head" 04/2017 pt stated - HEENT Hx HEENT Disorder: Yes (hard of hearing,RIGHT EAR DEAF) Other/Comment: tinnitus, - Renal Hx Renal Disorder: Yes Hx Dialysis: Yes Type of Dialysis Access: right chest wall Date of Last Dialysis Treatment: 12/08/17 Other/Comment: //Sat - Endocrine/Metabolic Hx Endocrine Disorders: Yes Hx Diabetes Mellitus Type 2: Yes Hx Hypothyroidism: Yes Other/Comment: 2 cysts on thyroid - Hematological/Oncological Hx Blood Disorders: Yes (blood transfusions) Hx Anemia: Yes - Integumentary Hx Dermatological Disorder: Yes (non healing sugical wound to right ankle) Other/Comment: r ankle wound,non healing surgical wound cared for by dr parada at wound center, wound 5.5 X 3.5 cm ,right buttocks red and open to air healed, SCARRED AREA.multiple skin discolorations to ble,EDEMA +1.Left thumb area with a 0.7 scabbed wound from rubbing to wheelchair, healedd - Musculoskeletal/Rheumatological Hx Musculoskeletal Disorders: Yes Hx Falls: Yes (frequent recent) - Gastrointestinal Hx Gastrointestinal Disorders: Yes (POOR APPETITE,DIVERTICULITIS,GASTROENTERITIS ,GASTRITIS) Hx Gastroesophageal Reflux: Yes Other/Comment: diverticulosis, bloating, weight loss, poor appetite, constant nausea and vomiting, hiatal hernia x 2, colonoscopy x2, - Genitourinary/Gynecological Hx Genitourinary Disorders: Yes (ANURIC) Other/Comment: pt voids - Psychiatric Hx Psychophysiologic Disorder: Yes Hx Anxiety: Yes Hx Substance Use: No - Past Surgical History Past Surgical History: Unable to Obtain - Surgical History Hx Appendectomy: Yes Hx Cardiac Catheterization: Yes Hx Coronary Stent: Yes Other/Comment: thoracentesis x2, r av fistula not working, right chest hd cath in use for hd , debridement with skin graft about [address] malik to right ankle ulcer, b/l artery bypass 04/2017 - Anesthesia Hx Anesthesia Reactions: No Hx Malignant Hyperthermia: No - Suicidal Assessment Feels Threatened In Home Enviroment: No Family/Social History - Physician Review Nursing Documentation Reviewed: Yes Family/Social History: No Known Family HX Smoking Status: Former Smoker Hx Alcohol Use: No Hx Substance Use: No Hx Substance Use Treatment: No Allergies/Home Meds Allergies/Adverse Reactions: Allergies ciprofloxacin Allergy (Verified 12/10/17 11:55) RASH hydralazine Allergy (Verified 12/10/17 11:55) RASH vomiting vancomycin Allergy (Verified 12/10/17 11:55) SHORTNESS OF BREATH palpitations ct dye Allergy (Uncoded 12/10/17 11:55) RASH Home Medications: Home Meds Medication Instructions Recorded Confirmed Lisinopril [Zestril] 40 mg PO DAILY 10/05/17 12/08/17 Sildenafil [Revatio] 20 mg PO DAILY 10/05/17 12/08/17 Clopidogrel [Plavix] 1 tab PO DAILY 11/18/17 12/08/17 Docusate [Colace] 1 cap PO TID 11/18/17 12/08/17 NIFEdipine ER [Procardia XL] 1 tab PO DAILY 11/18/17 12/08/17 Oxycodone HCl/Acetaminophen 1 tab PO QID PRN 11/18/17 12/08/17 [Endocet 10-325 mg Tablet] Review of Systems - Physician Review All systems were reviewed & negative as marked: Yes - Review of Systems Constitutional: absent: Fevers, Night Sweats Respiratory: SOB Cardiovascular: Chest Pain Gastrointestinal: Vomiting. absent: Abdominal Pain, Diarrhea Neurological: absent: Headache, Dizziness Physical Exam Vital Signs Temp Pulse Resp BP Pulse Ox 12/10/17 18:01 92 H 18 207/110 H 100 12/10/17 12:43 99.0 F 99 H 18 100 Appearance: Positive for: Well-Appearing, Non-Toxic, Comfortable Pain Distress: None Mental Status: Positive for: Alert and Oriented X 3 - Systems Exam Head: Present: Atraumatic, Normocephalic Pupils: Present: PERRL Extroacular Muscles: Present: EOMI Conjunctiva: Present: Normal Mouth: Present: Moist Mucous Membranes Neck: Present: Normal Range of Motion, JVD Respiratory/Chest: Present: Clear to Auscultation, Good Air Exchange, Rales ( fine rales to bilateral bases). No: Respiratory Distress, Accessory Muscle Use Cardiovascular: Present: Murmurs, Normal S1, S2 Abdomen: No: Tenderness, Distention, Peritoneal Signs Back: Present: Normal Inspection Upper Extremity: Present: Normal Inspection. No: Cyanosis, Edema Lower Extremity: Present: Other (bandaged sore noted to anterior aspect of lower right leg above ankle). No: Edema Neurological: Present: GCS=15, CN II-XII Intact, Speech Normal Skin: Present: Warm, Dry, Normal Color. No: Rashes Psychiatric: Present: Alert, Oriented x 3, Normal Insight, Normal Concentration Medical Decision Making ED Course and Treatment: 12/10/17 12:21 Impression: A 57 year old female with vomiting, chest pain and shortness of breath Plan: -- Chest xray -- Labs -- Zofran and Percocet -- Reassess and disposition Progress Notes: EKG shows NSR at 98 BPM with LVH repolarization, possible left atrial enlargement. Interpreted by me. Report Date : 12/10/2017 13:17:23 Procedure: Chest xray Dictator : Akhil Lennon MD IMPRESSION: Mild vascular congestion - Lab Interpretations Lab Results: 12/10/17 12:50 12/10/17 12:50 Lab Results 12/10/17 12:50: Sodium 140, Potassium 6.5 H* D, Chloride 93 L, Carbon Dioxide 31 , Anion Gap 22 H, BUN 86 H, Creatinine 6.3 H, Est GFR ( Amer) 8, Est GFR (Non-Af Amer) 7, Random Glucose 175 H, Calcium 10.0, Total Bilirubin 0.3, AST 30 , ALT 40, Alkaline Phosphatase 123, Lactate Dehydrogenase 489, Total Creatine Kinase 34 L, Troponin I 0.02 D, NT-Pro-B Natriuret Pep 904852 H, Total Protein 6.1, Albumin 3.9, Globulin 2.2, Albumin/Globulin Ratio 1.8 12/10/17 12:50: WBC 7.4, RBC 3.25 L, Hgb 9.3 L, Hct 30.7 L, MCV 94.5, MCH 28.6, MCHC 30.3 L, RDW 16.1 H, Plt Count 192, MPV 10.1, Gran % 75.9 H, Lymph % (Auto) 15.3 L, [place] % (Auto) 7.6 H, Eos % (Auto) 1.1 L, Baso % (Auto) 0.1, Gran # 5.62 , Lymph # (Auto) 1.1 L, [place] # (Auto) 0.6, Eos # (Auto) 0.1, Baso # (Auto) 0.01 - RAD Interpretation Radiology Orders: 12/10/17 12:25 CHEST PORTABLE [RAD] Stat - Medication Orders Current Medication Orders: Metoprolol Tartrate (Lopressor) 5 mg IVP STAT STA Stop: 12/10/17 18:30 Metoprolol Tartrate (Lopressor) 5 mg IVP STAT STA Stop: 12/10/17 18:30 Metoprolol Tartrate (Lopressor) 5 mg IVP STAT STA Stop: 12/10/17 18:31 Discontinued Medications Ondansetron HCl (Zofran Odt) 8 mg PO STAT STA Stop: 12/10/17 12:26 Last Admin: 12/10/17 12:44 Dose: 8 mg Ondansetron HCl (Zofran Odt) 4 mg PO STAT STA Stop: 12/10/17 17:49 Last Admin: 12/10/17 18:30 Dose: 4 mg Oxycodone/Acetaminophen (Percocet 5/325 Mg Tab) 1 tab PO STAT STA Stop: 12/10/17 12:26 Last Admin: 12/10/17 12:48 Dose: 1 tab MAR Pain Assessment Document 12/10/17 12:48 MS (Rec: 12/10/17 12:48 MS [id number]) Pain Reassessment Is this a pain reassessment? No Sleep Is patient sleeping during reassessment? No Presence of Pain Presence of Pain Yes Pain Scale Used Pain Scale Used Numeric Location Pain Location Body Site Chest Description Description Intermittent Pain Behavior Guarding Irritability Oxycodone/Acetaminophen (Percocet 5/325 Mg Tab) 1 tab PO STAT STA Stop: 12/10/17 17:49 Last Admin: 12/10/17 18:30 Dose: Not Given Non-Admin Reason: Patient Refused - Scribe Statement The provider has reviewed the documentation as recorded by the Jayleen Mcclain Provider Scribe Attestation: All medical record entries made by the Scribe were at my direction and personally dictated by me. I have reviewed the chart and agree that the record accurately reflects my personal performance of the history, physical exam, medical decision making, and the department course for this patient. I have also personally directed, reviewed, and agree with the discharge instructions and disposition. Disposition/Present on Arrival - Present on Arrival Any Indicators Present on Arrival: No History of DVT/PE: No History of Uncontrolled Diabetes: No Urinary Catheter: No History of Decub. Ulcer: No History Surgical Site Infection Following: None - Disposition Have Diagnosis and Disposition been Completed?: Yes Diagnosis: Poorly-controlled hypertension, Hypertensive left ventricular hypertrophy, CHF exacerbation, ESRD (end stage renal disease) on dialysis, Atypical chest pain Disposition: HOME/ ROUTINE Disposition Time: 18:39 Patient Plan: Discharge Condition: GOOD Discharge Instructions (ExitCare): End Stage Kidney Disease (DC), Dialysis and Diet, Kidney Failure (DC), Chest Pain (ED) Additional Instructions: Renetta - Sorry that you are not feeling well. Please take all of your medicines as prescribed, keep your dialysis appointment, and if you need a stronger pain medicine, talk that over with your primary care doctor or hand painter. Juan Miguel- Dr. Yoshi Alvarado
[2017-12-10 12:44] VITALS: RESP 18; O2SAT 100
--- NOTE | 2017-12-10 13:19 | RAD ---
HISTORY: Chest Pain COMPARISON: 12/08/2017 FINDINGS: LUNGS: No active pulmonary disease. PLEURA: No significant pleural effusion identified, no pneumothorax apparent. CARDIOVASCULAR: Mild cardiomegaly. Mild vascular congestion OSSEOUS STRUCTURES: No significant abnormalities. VISUALIZED UPPER ABDOMEN: Normal. OTHER FINDINGS: Right-sided Port-A-Cath and right-sided dialysis catheter IMPRESSION: Mild vascular congestion
[2017-12-10 13:34] LABS: BASO # 0.01 K/mm3 (0.0-2.0); BASO % 0.1 % (0.0-3.0); EOS # 0.1 (0.0-0.7); EOS % 1.1 % (1.5-5.0); GRAN # 5.62 (1.4-6.5); GRAN % 75.9 % (50.0-68.0); HEMOGLOBIN 9.3 g/dL (12.0-16.0); LYMPH # 1.1 (1.2-3.4); LYMPH % 15.3 % (22.0-35.0); MEAN CELL VOLUME 94.5 fl (80.0-105.0); MEAN CORPUSCULAR HEMOGLOBIN 28.6 pg (25.0-35.0); MEAN CORPUSCULAR HGB CONC 30.3 g/dl (31.0-37.0); MEAN PLATELET VOLUME 10.1 fl (7.0-11.0); MONO # 0.6 (0.1-0.6); MONO % 7.6 % (1.0-6.0); RBC 3.25 10^6/uL (3.5-6.1); RED CELL DISTRIBUTION WIDTH 16.1 % (11.5-14.5); WHITE BLOOD COUNT 7.4 10^3/ul (4.5-11.0)
[2017-12-10 13:40] LABS: ALB/GLOB RATIO 1.8 (1.1-1.8); ALBUMIN 3.9 g/dL (3.0-4.8)
[2017-12-10 13:48] LABS: TROPONIN I 0.02 ng/mL
[2017-12-10] MEDS ORDERED: Metoprolol 1 mg/ml Inj IVP STA ×3 (18:29→18:30)
--- NOTE | 2017-12-10 19:08 | CARD ---
APPROVED REPORT EKG Measurement Heart [id number] <Conclusion> Normal sinus rhythm Possible Left atrial enlargement Left ventricular hypertrophy with repolarization abnormality Abnormal ECG
[2017-12-10 19:38] VITALS: PULSE 76
[2017-12-10 19:59] VITALS: BP 130/85; TEMP 98
== END 2017-12-10 19:59 | disposition home or self-care (01) ==
LOC: ED 11:45
DX: I13.2 Hypertensive heart and chronic kidney disease with heart failure and with stage 5 chronic kidney disease, or end stage renal disease (principal); E11.22 Type 2 diabetes mellitus with diabetic chronic kidney disease; N18.6 End stage renal disease; I50.9 Heart failure, unspecified; Z99.2 Dependence on renal dialysis; Z87.891 Personal history of nicotine dependence; R07.89 Other chest pain; I51.7 Cardiomegaly; Z86.73 Personal history of transient ischemic attack (TIA), and cerebral infarction without residual deficits

== ENCOUNTER 2018-01-11 21:14 | Emergency (ER) | payer MEDICARE ==
[2018-01-11 21:18] VITALS: BMI 21.2
[2018-01-11] MEDS: Albuterol-Ipratrop 3 mg / 0.5 (3 ml) UD IH SCH ×3 (21:34→22:15)
[2018-01-11 21:49] LABS: BASO # 0.07 K/mm3 (0.0-2.0); BASO % 0.6 % (0.0-3.0); EOS # 0.4 (0.0-0.7); EOS % 3.4 % (1.5-5.0); GRAN # 5.41 (1.4-6.5); GRAN % 49.1 % (50.0-68.0); HEMOGLOBIN 10.7 g/dL (12.0-16.0); LYMPH # 4.4 (1.2-3.4); LYMPH % 39.4 % (22.0-35.0); MEAN CELL VOLUME 95.7 fl (80.0-105.0); MEAN CORPUSCULAR HEMOGLOBIN 28.7 pg (25.0-35.0); MEAN PLATELET VOLUME 9.5 fl (7.0-11.0); MONO # 0.8 (0.1-0.6); MONO % 7.5 % (1.0-6.0); RBC 3.73 10^6/uL (3.5-6.1); RED CELL DISTRIBUTION WIDTH 16.1 % (11.5-14.5)
[2018-01-11 21:57] LABS: VENOUS BLOOD GAS BASE EXCESS -4.1 mmol/L (0.0-2.0); VENOUS BLOOD GAS PO2 63 mm/Hg (30-55)
[2018-01-11 21:58] LABS: INR 0.99 (0.93-1.08); PARTIAL THROMBOPLASTIN TIME 28.8 Seconds (25.1-36.5); PROTHROMBIN TIME 11.3 SECONDS (9.4-12.5)
[2018-01-11 22:02] LABS: ALB/GLOB RATIO 1.6 (1.1-1.8); ALBUMIN 4.8 g/dL (3.0-4.8); CALCIUM 8.8 mg/dL (8.4-10.5)
[2018-01-11 22:05] LABS: VENOUS BLOOD PH 7.12 (7.32-7.43)
[2018-01-11 22:11] LABS: TROPONIN I 0.04 ng/mL
[2018-01-11] MEDS ORDERED: Dextrose 50% SYRINGE Inj (50 ml) IVP STA (22:12)
[2018-01-11] MEDS ORDERED: Insulin Regular 1 UNITS/0.01 ML ML IVP STA (22:12)
[2018-01-11] MEDS ORDERED: Sod Polystyrene Sulf 15 gm/60 ml Susp PR STA (22:13)
[2018-01-11] MEDS ORDERED: Metoprolol 1 mg/ml Inj IVP STA ×2 (22:39→23:32)
--- NOTE | 2018-01-11 22:44 | ED PDOC ---
Arrival/HPI - General Chief Complaint: Shortness Of Breath Time Seen by Provider: 01/11/18 21:16 Historian: Patient - Critical Care Critical Care Minutes: 60 minutes - History of Present Illness Narrative History of Present Illness (Text): 01/11/18 22:40 Patient is a 57 year old female who has a long history of ESRD (receives dialysis on //Thu -- last service was Thursday), CVA (right sided weakness ) Hypertension and COPD. She presents to the Emergency department complaining of shortness of breath and chest tightness since today. Patient reports feeling lightheaded. She was seen immediately upon arrival in respiratory distress and was placed on BiPAP. Patient denies chest pain, cough, and fever. Limited history due to respiratory distress. PMD: Manager Heart: /Rica Time/Duration: 24 hours (Today(01/11/18)) Past Medical History - Provider Review Nursing Documentation Reviewed: Yes - Past History Past History: No Previous - Infectious Disease Hx of Infectious Diseases: None - Tetanus Immunization Tetanus Immunization: Unknown - Reproductive Menopause: Yes - Cardiac Hx Cardiac Disorders: Yes (mi x2 02/2017, dvt l leg, pericardial window) Hx Angina: Yes Hx Cardiac Arrhythmia: Yes Hx Congestive Heart Failure: Yes Hx Hypertension: Yes Hx Pacemaker: No Hx Peripheral Edema: Yes (none at present time) Hx Peripheral Vascular Disease: Yes Other/Comment: cardiomyopathy,cad, pad, r arm fistula, r chest udall cath, double arterial bypass both legs due to poor circulations 04/2017 - Pulmonary Hx Respiratory Disorders: Yes Hx Asthma: Yes Hx Chronic Obstructive Pulmonary Disease (COPD): Yes Hx Emphysema: Yes Hx Pneumonia: Yes Hx Sleep Apnea: Yes - Neurological Hx Neurological Disorder: Yes HX Cerebrovascular Accident: Yes Hx Migraine: Yes Hx Seizures: Yes Hx Transient Ischemic Attacks (TIA): Yes Other/Comment: ble numbness when ambulating, cold extremities,from mid october 2017 to present time pt had 4 tia's and seizures to go along with the strokes, c /o memory loss, weakness, falls, difficulty walking post multiple recent tia's, stent to "head" 04/2017 pt stated - HEENT Hx HEENT Disorder: Yes (hard of hearing,RIGHT EAR DEAF) Other/Comment: tinnitus, - Renal Hx Renal Disorder: Yes Hx Dialysis: Yes Date of Last Dialysis Treatment: 12/08/17 Other/Comment: Tues/Thurs/Sat - Endocrine/Metabolic Hx Endocrine Disorders: Yes Hx Diabetes Mellitus Type 2: Yes Hx Hypothyroidism: Yes Other/Comment: 2 cysts on thyroid - Hematological/Oncological Hx Blood Disorders: Yes (blood transfusions) Hx Anemia: Yes - Integumentary Hx Dermatological Disorder: Yes (non healing sugical wound to right ankle) Other/Comment: r ankle wound,non healing surgical wound cared for by dr parada at wound center, wound 5.5 X 3.5 cm ,right buttocks red and open to air healed, SCARRED AREA.multiple skin discolorations to ble,EDEMA +1.Left thumb area with a 0.7 scabbed wound from rubbing to wheelchair, healedd - Musculoskeletal/Rheumatological Hx Musculoskeletal Disorders: Yes Hx Falls: Yes (frequent recent) - Gastrointestinal Hx Gastrointestinal Disorders: Yes (POOR APPETITE,DIVERTICULITIS,GASTROENTERITIS ,GASTRITIS) Hx Gastroesophageal Reflux: Yes Other/Comment: diverticulosis, bloating, weight loss, poor appetite, constant nausea and vomiting, hiatal hernia x 2, colonoscopy x2, - Genitourinary/Gynecological Hx Genitourinary Disorders: Yes (ANURIC) Other/Comment: pt voids - Psychiatric Hx Psychophysiologic Disorder: Yes Hx Anxiety: Yes Hx Substance Use: No - Past Surgical History Past Surgical History: Unable to Obtain - Surgical History Hx Appendectomy: Yes Hx Cardiac Catheterization: Yes Hx Coronary Stent: Yes Other/Comment: thoracentesis x2, r av fistula not working, right chest hd cath in use for hd , debridement with skin graft about [address] malik to right ankle ulcer, b/l artery bypass 04/2017 - Anesthesia Hx Anesthesia Reactions: No Hx Malignant Hyperthermia: No - Suicidal Assessment Feels Threatened In Home Enviroment: No Family/Social History - Physician Review Nursing Documentation Reviewed: Yes Family/Social History: Unknown Family HX Smoking Status: Former Smoker Hx Alcohol Use: No Hx Substance Use: No Hx Substance Use Treatment: No Allergies/Home Meds Allergies/Adverse Reactions: Allergies ciprofloxacin Allergy (Verified 01/11/18 21:25) RASH hydralazine Allergy (Verified 01/11/18 21:25) RASH vomiting vancomycin Allergy (Verified 01/11/18 21:25) SHORTNESS OF BREATH palpitations ct dye Allergy (Uncoded 01/11/18 21:25) RASH Home Medications: Home Meds Medication Instructions Recorded Confirmed Lisinopril [Zestril] 40 mg PO DAILY 10/05/17 01/11/18 Sildenafil [Revatio] 20 mg PO DAILY 10/05/17 01/11/18 Clopidogrel [Plavix] 1 tab PO DAILY 11/18/17 01/11/18 NIFEdipine ER [Procardia XL] 1 tab PO DAILY 11/18/17 01/11/18 Atorvastatin [Lipitor] 40 mg PO DAILY 01/11/18 01/11/18 Carvedilol [Coreg] 6.25 mg PO BID 01/11/18 01/11/18 Cefuroxime Axetil [Cefuroxime] 500 mg PO BID 01/11/18 01/11/18 Prednisone [Deltasone] 20 mg PO BID 01/11/18 01/11/18 oxyCODONE/Acetaminophen [Percocet 1 tab PO BID 01/11/18 01/11/18 5/325 mg Tab] Review of Systems - Physician Review All systems were reviewed & negative as marked: Yes - Review of Systems Constitutional: absent: Fevers Respiratory: SOB. absent: Cough Cardiovascular: Chest Pain (chest tightness) Neurological: Dizziness (lightheadedness) Physical Exam Vital Signs Reviewed: Yes Vital Signs Temp Pulse Resp BP Pulse Ox 01/11/18 23:45 98.2 F 96 H 26 H 235/118 H 100 01/11/18 23:34 105 H 01/11/18 22:50 106 H 29 H 252/129 H 100 01/11/18 21:32 98.4 F 118 H 37 H 268/142 H 98 01/11/18 21:15 24 Temperature: Afebrile Blood Pressure: Hypertensive Pulse: Tachycardic Respiratory Rate: Tachypneic (short sentences) Appearance: Positive for: Non-Toxic, Ill-Appearing, Uncomfortable Pain Distress: None Mental Status: Positive for: Alert and Oriented X 3 - Systems Exam Head: Present: Atraumatic, Normocephalic Pupils: Present: PERRL Extroacular Muscles: Present: EOMI Conjunctiva: Present: Normal Mouth: Present: Moist Mucous Membranes Neck: Present: Normal Range of Motion Respiratory/Chest: Present: Clear to Auscultation, Good Air Exchange, Rales ( left lung). No: Respiratory Distress, Accessory Muscle Use Cardiovascular: Present: Regular Rate and Rhythm, Normal S1, S2, Other ( hypertensive). No: Murmurs Abdomen: No: Tenderness, Distention, Peritoneal Signs Back: Present: Normal Inspection Upper Extremity: Present: Normal Inspection. No: Cyanosis, Edema Lower Extremity: Present: Normal Inspection. No: Edema Neurological: Present: GCS=15, CN II-XII Intact, Speech Normal. No: Motor Func Grossly Intact (right sided weakness (baseline from CVA)) Skin: Present: Warm, Dry, Normal Color, Diaphoretic. No: Rashes Psychiatric: Present: Alert, Oriented x 3, Normal Insight, Normal Concentration Medical Decision Making ED Course and Treatment: 01/11/18 23:04 Impression: Patient is a 57 year old female who is experiencing shortness of breath. Differential Diagnosis included but are not limited to: ESRD fluid overload and needs urgent dialysis, COPD exacerbation, and hypertensive urgency. Plan: --Labs --EKG --Lasix --Solumedrol IV --Duonebs --Placed immediately on BiPAP on arrival Prior Visits: Notes and results from previous visits were reviewed. Progress Notes: EKG sinus tachycardia at 140bpm with LVH and T wave inverison in lateral leads similar to 12/10/17. Potassium elevated and treated with Kayexlate, Insulin/Dextrose, Calcium Gluconate 1gm IV. Blood pressure treated with Metoprolol 5mg x 2 with improvement Morphine give for body pain which is typical of patients symptoms. Patient's blood pressure needed more control. Nitro drip started. 22:43 Discussed case with who agrees for urgent dialysis. Notified Denise SHEPARD, renal nurse. 22:[address] Coffman who accepts the patient to her service and recommends ICU. Case discussed with Dr. Nesbitt who recommends urgent dialysis. 23:30 Case discussed with Nursing Motor Rebuilder, Carola Mukherjee who states that they were unable to get a dialysis nurse cone chocolate dipper to come in for dialysis. We at this point decided to transfer stat to [facility]. 23:[address] Angeles, ED Physician at [facility] for transfer. - Lab Interpretations Lab Results: 01/11/18 21:30 01/11/18 21:30 Lab Results 01/11/18 21:30: Sodium 144, Chloride 99, Potassium 6.2 H* D, Carbon Dioxide 24, Anion Gap 27 H, BUN 74 H, Creatinine 6.4 H, Est GFR ( Amer) 8, Est GFR ( Non-Af Amer) 7, Random Glucose 164 H, Calcium 8.8, Magnesium 2.3 H, Total Bilirubin 0.3, AST 34, ALT 23, Alkaline Phosphatase 202 H D, Lactate Dehydrogenase 674, Total Creatine Kinase 60, Troponin I 0.04 D, NT-Pro-B Natriuret Pep 85602 H, Total Protein 7.9, Albumin 4.8, Globulin 3.1, Albumin/ Globulin Ratio 1.6 01/11/18 21:30: pO2 63 H, VBG pH 7.12 L*, VBG pCO2 84.0 H*, VBG HCO3 27.3, VBG Total CO2 29.9 H, VBG O2 Sat (Calc) 86.3 H, VBG Base Excess -4.1 L, VBG Potassium 6.3 H*, Sodium 136.0, Chloride 101.0, Glucose 176 H, Lactate 1.0, FiO2 21.0, Venous Blood Potassium 6.3 H* 01/11/18 21:30: PT 11.3, INR 0.99, APTT 28.8 01/11/18 21:30: WBC 11.0 D, RBC 3.73, Hgb 10.7 L, Hct 35.7 L, MCV 95.7, MCH 28.7, MCHC 30.0 L, RDW 16.1 H, Plt Count 469 H, MPV 9.5, Gran % 49.1 L, Lymph % (Auto) 39.4 H, [place] % (Auto) 7.5 H, Eos % (Auto) 3.4, Baso % (Auto) 0.6, Gran # 5.41, Lymph # (Auto) 4.4 H, [place] # (Auto) 0.8 H, Eos # (Auto) 0.4, Baso # (Auto ) 0.07 - RAD Interpretation Radiology Orders: 01/11/18 21:18 CHEST PORTABLE [RAD] Stat - Medication Orders Current Medication Orders: Nitroglycerin/Dextrose (Nitroglycerin 50 Mg/250 Ml D5w) 250 mls @ 1.5 mls/hr IV .Q24H PRN; Protocol; 5 MCG/MIN PRN Reason: chf Discontinued Medications Albuterol/Ipratropium (Duoneb 3 Mg/0.5 Mg (3 Ml) Ud) 3 ml IH Q15M ZANA Stop: 01/11/18 22:01 Last Admin: 01/11/18 22:15 Dose: 3 ml Calcium Gluconate (Calcium Gluconate Iv) 1,000 mg IVP ONCE ONE Stop: 01/11/18 22:13 Last Admin: 01/11/18 22:39 Dose: 1,000 mg IVP Administration Document 01/11/18 22:39 JAMAR (Rec: 01/11/18 22:40 JAMAR [id number]) Charges for Administration # of IVP Administrations 1 Dextrose (Dextrose 50% Inj) 50 ml IVP STAT STA Stop: 01/11/18 22:13 Last Admin: 01/11/18 22:40 Dose: 50 ml IVP Administration Document 01/11/18 22:40 JAMAR (Rec: 01/11/18 22:41 JAMAR [id number]) Charges for Administration # of IVP Administrations 1 Furosemide (Lasix) 40 mg IVP STAT STA Stop: 01/11/18 21:19 Last Admin: 01/11/18 21:32 Dose: 40 mg MAR Blood Pressure Document 01/11/18 21:32 JAMAR (Rec: 01/11/18 21:32 JAMAR [id number]) Blood Pressure Blood Pressure (100/60-150/90) 268/142 IVP Administration Document 01/11/18 21:32 JAMAR (Rec: 01/11/18 21:32 JAMAR [id number]) Charges for Administration # of IVP Administrations 1 Insulin Human Regular (Humulin R) 10 units IVP STAT STA Stop: 01/11/18 22:13 Last Admin: 01/11/18 22:40 Dose: 10 units IVP Administration Document 01/11/18 22:40 JAMAR (Rec: 01/11/18 22:40 JAMAR [id number]) Charges for Administration # of IVP Administrations 1 Methylprednisolone (Solu-Medrol) 125 mg IVP STAT STA Stop: 01/11/18 21:19 Last Admin: 01/11/18 21:32 Dose: 125 mg IVP Administration Document 01/11/18 21:32 JAMAR (Rec: 01/11/18 21:32 JAMAR [id number]) Charges for Administration # of IVP Administrations 1 Metoprolol Tartrate (Lopressor) 5 mg IVP STAT STA Stop: 01/11/18 22:40 Last Admin: 01/11/18 22:50 Dose: 5 mg IVP Administration Document 01/11/18 22:50 JAMAR (Rec: 01/11/18 22:51 JAMAR [id number]) Charges for Administration # of IVP Administrations 1 MAR Pulse and Blood Pressure Document 01/11/18 22:50 JAMAR (Rec: 01/11/18 22:51 JAMAR [id number]) Pulse Pulse Rate (60-90) 123 Blood Pressure Blood Pressure (100/60-150/90) 252/129 Metoprolol Tartrate (Lopressor) 5 mg IVP STAT STA Stop: 01/11/18 23:33 Last Admin: 01/11/18 23:34 Dose: 5 mg IVP Administration Document 01/11/18 23:34 JAMAR (Rec: 01/11/18 23:34 JAMAR [id number]) Charges for Administration # of IVP Administrations 1 MAR Pulse and Blood Pressure Document 01/11/18 23:34 JAMAR (Rec: 01/11/18 23:34 JAMAR [id number]) Pulse Pulse Rate (60-90) 105 Morphine Sulfate (Morphine) 4 mg IVP STAT STA Stop: 01/11/18 23:36 Last Admin: 01/11/18 23:41 Dose: 4 mg MAR Pain Assessment Document 01/11/18 23:41 JAMAR (Rec: 01/11/18 23:41 JAMAR [id number]) Pain Reassessment Is this a pain reassessment? No IVP Administration Document 01/11/18 23:41 JAMAR (Rec: 01/11/18 23:41 JAMAR [id number]) Charges for Administration # of IVP Administrations 1 Ondansetron HCl (Zofran Inj) 4 mg IVP STAT STA Stop: 01/11/18 22:46 Last Admin: 01/11/18 22:49 Dose: 4 mg IVP Administration Document 01/11/18 22:49 JAMAR (Rec: 01/11/18 22:49 JAMAR [id number]) Charges for Administration # of IVP Administrations 1 Sodium Polystyrene Sulfonate (Kayexalate Susp) 15 gm PA STAT STA Stop: 01/11/18 22:14 Last Admin: 01/11/18 22:40 Dose: 15 gm - Scribe Statement The provider has reviewed the documentation as recorded by the Scribe Trevor Rosa Provider Scribe Attestation: All medical record entries made by the Scribe were at my direction and personally dictated by me. I have reviewed the chart and agree that the record accurately reflects my personal performance of the history, physical exam, medical decision making, and the department course for this patient. I have also personally directed, reviewed, and agree with the discharge instructions and disposition Disposition/Present on Arrival - Present on Arrival Any Indicators Present on Arrival: No History of DVT/PE: No History of Uncontrolled Diabetes: No Urinary Catheter: No History of Decub. Ulcer: No History Surgical Site Infection Following: None - Disposition Have Diagnosis and Disposition been Completed?: Yes Diagnosis: Hypertensive emergency, ESRD (end stage renal disease), Fluid overload, COPD exacerbation Disposition: Transfer [facility] Disposition Time: 23:59 Condition: CRITICAL Referrals: Brittany Coffman MD [Primary Care Provider] - Follow up with primary Forms: [employer] (Cuban)
[2018-01-11] MEDS ORDERED: Morphine 4 mg/ml ISec IVP STA (23:35)
[2018-01-11] MEDS ORDERED: Morphine 4 mg/ml ISec ONE (23:38)
[2018-01-11 23:46] VITALS: O2SAT 100
[2018-01-11] MEDS ORDERED: Nitroglycerin 50mg in D5W 50 MG/250 ML BOTTLE IV PRN (23:54)
[2018-01-12 00:05] LABS: ARTERIAL BLOOD GAS HCO3 21.6 mmol/L (21-28); ARTERIAL BLOOD GAS HEMOGLOBIN 8.9 g/dL (11.7-17.4); ARTERIAL BLOOD GAS O2 CAPACITY 12.8 mL/dl (16-24); ARTERIAL BLOOD GAS O2 CONTENT 12.5 ML/dl (15-23); ARTERIAL BLOOD GAS O2 SAT 97.6 % (95-98); ARTERIAL BLOOD GAS PCO2 46 mm/Hg (35-45); ARTERIAL BLOOD GAS PH 7.28 (7.35-7.45)
--- NOTE | 2018-01-12 00:19 | CP.PCM.CON ---
<Andres Melton - Last Filed: 01/12/18 00:07> History of Present Illness - History of Present Illness History of Present Illness: Andres Melton D.O. PGY-2, Internal Medicine Resident, Critical Care Consultation Note 57 year old female with a PMH of CAD s/p PCI and stent, CHF, PUD, hypothyroidism , ESRD on dialysis T/T/S with some urine production, previous CVA with residual right sided weakness, hypertension and COPD who presents for worsening shortness of breath and today. ICU consultation was requested. Patient was seen and examined at bedside. Patient was placed on BIPAP in the ER and given lasix and solumedrol with some improvement in her breathing and she is able to answer questions. States that her breathing has improved since she first came in. Patient admits that due to the hot weather recently she has however been taking in a lot more fluid and has also been making more urine. Still has some chest discomfort/tightness as well as some neck discomfort. 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 PMD: Dr. Richards PMH: as above PSH: R carotid angioplasty, BL leg arterial bypass SH: former smoker 80 pack years, no EtOH or drug use Meds: reviewed Allergies: cipro, hydralazine, vancomycin Review of Systems - Review of Systems All systems: reviewed and no additional remarkable complaints except - Cardiovascular Cardiovascular: As Per HPI - Respiratory Respiratory: As Per HPI Past Patient History - Infectious Disease Hx of Infectious Diseases: None - Tetanus Immunizations Tetanus Immunization: Unknown - Past Social History Smoking Status: Former Smoker - CARDIAC Hx Cardiac Disorders: Yes (mi x2 02/2017, dvt l leg, pericardial window) Hx Angina: Yes Hx Cardia Arrhythmia: Yes Hx Congestive Heart Failure: Yes Hx Hypertension: Yes Hx Pacemaker: No Hx Peripheral Edema: Yes (none at present time) Hx Peripheral Vascular Disease: Yes Other/Comment: cardiomyopathy,cad, pad, r arm fistula, r chest udall cath, double arterial bypass both legs due to poor circulations 04/2017 - PULMONARY Hx Respiratory Disorders: Yes Hx Asthma: Yes Hx Chronic Obstructive Pulmonary Disease (COPD): Yes Hx Emphysema: Yes Hx Pneumonia: Yes Hx Sleep Apnea: Yes - NEUROLOGICAL Hx Neurological Disorder: Yes HX Cerebrovascular Accident: Yes Hx Migraine: Yes Hx Seizures: Yes Hx Transient Ischemic Attacks (TIA): Yes Other/Comment: ble numbness when ambulating, cold extremities,from mid october 2017 to present time pt had 4 tia's and seizures to go along with the strokes, c /o memory loss, weakness, falls, difficulty walking post multiple recent tia's, stent to "head" 04/2017 pt stated - HEENT Hx HEENT Problems: Yes (hard of hearing,RIGHT EAR DEAF) Other/Comment: tinnitus, - RENAL Hx Chronic Kidney Disease: Yes Hx Dialysis: Yes Date of Last Dialysis Treatment: 12/08/17 Other/Comment: Tues/Thurs/Sat - ENDOCRINE/METABOLIC Hx Endocrine Disorders: Yes Hx Diabetes Mellitus Type 2: Yes Hx Hypothyroidism: Yes Other/Comment: 2 cysts on thyroid - HEMATOLOGICAL/ONCOLOGICAL Hx Blood Disorders: Yes (blood transfusions) Hx Anemia: Yes - INTEGUMENTARY Hx Dermatological Problems: Yes (non healing sugical wound to right ankle) Other/Comment: r ankle wound,non healing surgical wound cared for by dr parada at wound center, wound 5.5 X 3.5 cm ,right buttocks red and open to air healed, SCARRED AREA.multiple skin discolorations to ble,EDEMA +1.Left thumb area with a 0.7 scabbed wound from rubbing to wheelchair, healedd - MUSCULOSKELETAL/RHEUMATOLOGICAL Hx Musculoskeletal Disorders: Yes Hx Falls: Yes (frequent recent) - GASTROINTESTINAL Hx Gastrointestinal Disorders: Yes (POOR APPETITE,DIVERTICULITIS,GASTROENTERITIS ,GASTRITIS) Hx Gastroesophageal Reflux: Yes Other/Comment: diverticulosis, bloating, weight loss, poor appetite, constant nausea and vomiting, hiatal hernia x 2, colonoscopy x2, - GENITOURINARY/GYNECOLOGICAL Hx Genitourinary Disorders: Yes (ANURIC) Other/Comment: pt voids - PSYCHIATRIC Hx Psychophysiologic Disorder: Yes Hx Anxiety: Yes Hx Substance Use: No - SURGICAL HISTORY Hx Appendectomy: Yes Hx Cardiac Catheterization: Yes Hx Coronary Stent: Yes Other/Comment: thoracentesis x2, r av fistula not working, right chest hd cath in use for hd , debridement with skin graft about [address] malik to right ankle ulcer, b/l artery bypass 04/2017 - ANESTHESIA Hx Anesthesia Reactions: No Hx Malignant Hyperthermia: No Meds Allergies/Adverse Reactions: Allergies Allergy/AdvReac Type Severity Reaction Status Date / Time ciprofloxacin Allergy RASH Verified 01/11/18 21:25 hydralazine Allergy RASH Verified 01/11/18 21:25 vancomycin Allergy SHORTNESS Verified 01/11/18 21:[address] dye Allergy RASH Uncoded 01/11/18 21:25 - Medications Medications: Current Medications Nitroglycerin/Dextrose (Nitroglycerin 50 Mg/250 Ml D5w) 50 mg in 250 mls @ 1.5 mls/hr IV .Q24H PRN; Protocol; 5 MCG/MIN PRN Reason: chf Physical Exam - Constitutional Appears: Non-toxic, No Acute Distress, Chronically Ill - Head Exam Head Exam: ATRAUMATIC, NORMOCEPHALIC - Eye Exam Eye Exam: EOMI, PERRL. absent: Scleral icterus - ENT Exam ENT Exam: Mucous Membranes Moist, Normal Oropharynx Results - Vital Signs Recent Vital Signs: Last Vital Signs Temp 98.2 F 01/11/18 23:45 Pulse 96 H 01/11/18 23:45 Resp 26 H 01/11/18 23:45 BP 235/118 H 01/11/18 23:45 Pulse Ox 100 01/11/18 23:45 - Labs Result Diagrams: 01/11/18 21:30 01/11/18 21:30 Labs: Laboratory Results - last 24 hr 01/11/18 01/11/18 01/11/18 21:30 21:30 21:30 WBC 11.0 D RBC 3.73 Hgb 10.7 L Hct 35.7 L MCV 95.7 MCH 28.7 MCHC 30.0 L RDW 16.1 H Plt Count 469 H MPV 9.5 Gran % 49.1 L Lymph % (Auto) 39.4 H [place] % (Auto) 7.5 H Eos % (Auto) 3.4 Baso % (Auto) 0.6 Gran # 5.41 Lymph # (Auto) 4.4 H [place] # (Auto) 0.8 H Eos # (Auto) 0.4 Baso # (Auto) 0.07 PT 11.3 INR 0.99 APTT 28.8 pCO2 pO2 63 H HCO3 ABG pH ABG Total CO2 ABG O2 Saturation ABG O2 Content ABG Base Excess ABG Hemoglobin ABG Carboxyhemoglobin POC ABG HHb (Measured) ABG Methemoglobin ABG O2 Capacity VBG pH 7.12 L* VBG pCO2 84.0 H* VBG HCO3 27.3 VBG Total CO2 29.9 H VBG O2 Sat (Calc) 86.3 H VBG Base Excess -4.1 L VBG Potassium 6.3 H* Hgb O2 Saturation Sodium 136.0 Chloride 101.0 Glucose 176 H Lactate 1.0 FiO2 21.0 Potassium Carbon Dioxide Anion Gap BUN Creatinine Est GFR ( Amer) Est GFR (Non-Af Amer) Random Glucose Calcium Magnesium Total Bilirubin AST ALT Alkaline Phosphatase Lactate Dehydrogenase Total Creatine Kinase Troponin I NT-Pro-B Natriuret Pep Total Protein Albumin Globulin Albumin/Globulin Ratio Venous Blood Potassium 6.3 H* 01/11/18 01/11/18 21:30 23:50 WBC RBC Hgb Hct MCV MCH MCHC RDW Plt Count MPV Gran % Lymph % (Auto) Sum[place] % (Auto) Eos % (Auto) Baso % (Auto) Gran # Lymph # (Auto) Sum[place] # (Auto) Eos # (Auto) Baso # (Auto) PT INR APTT pCO2 46 H pO2 145.0 H HCO3 21.6 ABG pH 7.28 L ABG Total CO2 23.0 ABG O2 Saturation 97.6 ABG O2 Content 12.5 L ABG Base Excess -4.9 L ABG Hemoglobin 8.9 L ABG Carboxyhemoglobin 0.5 POC ABG HHb (Measured) 2.4 ABG Methemoglobin 0.1 ABG O2 Capacity 12.8 L VBG pH VBG pCO2 VBG HCO3 VBG Total CO2 VBG O2 Sat (Calc) VBG Base Excess VBG Potassium Hgb O2 Saturation 97.0 Sodium 144 Chloride 99 Glucose Lactate FiO2 60.0 Potassium 6.2 H* D Carbon Dioxide 24 Anion Gap 27 H BUN 74 H Creatinine 6.4 H Est GFR ( Amer) 8 Est GFR (Non-Af Amer) 7 Random Glucose 164 H Calcium 8.8 Magnesium 2.3 H Total Bilirubin 0.3 AST 34 ALT 23 Alkaline Phosphatase 202 H D Lactate Dehydrogenase 674 Total Creatine Kinase 60 Troponin I 0.04 D NT-Pro-B Natriuret Pep 01134 H Total Protein 7.9 Albumin 4.8 Globulin 3.1 Albumin/Globulin Ratio 1.6 Venous Blood Potassium Assessment & Plan - Assessment and Plan (Free Text) Assessment: 57 year old female with a PMH of CAD s/p PCI and stent, CHF, PUD, hypothyroidism , ESRD on dialysis T/T/S, previous CVA with residual right sided weakness, hypertension and COPD who presents for worsening shortness of breath and today. ICU consultation was requested. Plan: ESRD with fluid overload Uncontrolled hypertension Hx CVA Hx CAD s/p PCI and stent Hx CHF Hx hypothyroidism Hx PUD Case was discussed at length with attending physician and ER attending physician. Recommendation at this time is for patient to receive urgent dialysis. Arrangements could not be made for dialysis to be performed here. Again discussed with ER physician who has arranged for patient to be transferred to [facility] so that she may receive this urgent dialysis. Agree with plan at this time. - Date & Time Date: 01/12/18 Time: 23:30 <Pollo Nesbitt Q - Last Filed: 01/12/18 00:46> Meds - Medications Medications: Current Medications Nitroglycerin/Dextrose (Nitroglycerin 50 Mg/250 Ml D5w) 50 mg in 250 mls @ 1.5 mls/hr IV .Q24H PRN; Protocol; 5 MCG/MIN PRN Reason: chf Results - Vital Signs Recent Vital Signs: Last Vital Signs Temp 98.2 F 01/11/18 23:45 Pulse 96 H 01/11/18 23:45 Resp 26 H 01/11/18 23:45 BP 235/118 H 01/11/18 23:45 Pulse Ox 100 01/11/18 23:45 - Labs Result Diagrams: 01/11/18 21:30 01/11/18 21:30 Labs: Laboratory Results - last 24 hr 01/11/18 01/11/18 01/11/18 21:30 21:30 21:30 WBC 11.0 D RBC 3.73 Hgb 10.7 L Hct 35.7 L MCV 95.7 MCH 28.7 MCHC 30.0 L RDW 16.1 H Plt Count 469 H MPV 9.5 Gran % 49.1 L Lymph % (Auto) 39.4 H [place] % (Auto) 7.5 H Eos % (Auto) 3.4 Baso % (Auto) 0.6 Gran # 5.41 Lymph # (Auto) 4.4 H [place] # (Auto) 0.8 H Eos # (Auto) 0.4 Baso # (Auto) 0.07 PT 11.3 INR 0.99 APTT 28.8 pCO2 pO2 63 H HCO3 ABG pH ABG Total CO2 ABG O2 Saturation ABG O2 Content ABG Base Excess ABG Hemoglobin ABG Carboxyhemoglobin POC ABG HHb (Measured) ABG Methemoglobin ABG O2 Capacity VBG pH 7.12 L* VBG pCO2 84.0 H* VBG HCO3 27.3 VBG Total CO2 29.9 H VBG O2 Sat (Calc) 86.3 H VBG Base Excess -4.1 L VBG Potassium 6.3 H* Hgb O2 Saturation Sodium 136.0 Chloride 101.0 Glucose 176 H Lactate 1.0 FiO2 21.0 Potassium Carbon Dioxide Anion Gap BUN Creatinine Est GFR ( Amer) Est GFR (Non-Af Amer) Random Glucose Calcium Magnesium Total Bilirubin AST ALT Alkaline Phosphatase Lactate Dehydrogenase Total Creatine Kinase Troponin I NT-Pro-B Natriuret Pep Total Protein Albumin Globulin Albumin/Globulin Ratio Venous Blood Potassium 6.3 H* 01/11/18 01/11/18 21:30 23:50 WBC RBC Hgb Hct MCV MCH MCHC RDW Plt Count MPV Gran % Lymph % (Auto) Sum[place] % (Auto) Eos % (Auto) Baso % (Auto) Gran # Lymph # (Auto) [place] # (Auto) Eos # (Auto) Baso # (Auto) PT INR APTT pCO2 46 H pO2 145.0 H HCO3 21.6 ABG pH 7.28 L ABG Total CO2 23.0 ABG O2 Saturation 97.6 ABG O2 Content 12.5 L ABG Base Excess -4.9 L ABG Hemoglobin 8.9 L ABG Carboxyhemoglobin 0.5 POC ABG HHb (Measured) 2.4 ABG Methemoglobin 0.1 ABG O2 Capacity 12.8 L VBG pH VBG pCO2 VBG HCO3 VBG Total CO2 VBG O2 Sat (Calc) VBG Base Excess VBG Potassium Hgb O2 Saturation 97.0 Sodium 144 Chloride 99 Glucose Lactate FiO2 60.0 Potassium 6.2 H* D Carbon Dioxide 24 Anion Gap 27 H BUN 74 H Creatinine 6.4 H Est GFR ( Amer) 8 Est GFR (Non-Af Amer) 7 Random Glucose 164 H Calcium 8.8 Magnesium 2.3 H Total Bilirubin 0.3 AST 34 ALT 23 Alkaline Phosphatase 202 H D Lactate Dehydrogenase 674 Total Creatine Kinase 60 Troponin I 0.04 D NT-Pro-B Natriuret Pep 37901 H Total Protein 7.9 Albumin 4.8 Globulin 3.1 Albumin/Globulin Ratio 1.6 Venous Blood Potassium Attending/Attestation - Attestation I have personally seen and examined this patient.: Yes I have fully participated in the care of the patient.: Yes I have reviewed all pertinent clinical information: Yes
[2018-01-12 02:07] VITALS: BP 218/108; PULSE 98; RESP 24; TEMP 98.1
--- NOTE | 2018-01-12 09:04 | RAD ---
HISTORY: sob r/o chf COMPARISON: 12/10/2017 FINDINGS: LUNGS: No active pulmonary disease. PLEURA: No significant pleural effusion identified, no pneumothorax apparent. CARDIOVASCULAR: Mild vascular congestion OSSEOUS STRUCTURES: No significant abnormalities. VISUALIZED UPPER ABDOMEN: Normal. OTHER FINDINGS: Right-sided dialysis catheter and Port-A-Cath IMPRESSION: Mild vascular congestion
--- NOTE | 2018-01-12 10:25 | CARD ---
APPROVED REPORT EKG Measurement Heart [id number] <Conclusion> Sinus tachycardia Left atrial enlargement Left ventricular hypertrophy STTW changes c/w ischemia No change
== END 2018-01-12 02:45 | disposition short-term general hospital (02) ==
LOC: ED 21:14
DX: I12.0 Hypertensive chronic kidney disease with stage 5 chronic kidney disease or end stage renal disease (principal); E11.22 Type 2 diabetes mellitus with diabetic chronic kidney disease; N18.6 End stage renal disease; J44.1 Chronic obstructive pulmonary disease with (acute) exacerbation; E87.70 Fluid overload, unspecified; Z87.891 Personal history of nicotine dependence; Z99.2 Dependence on renal dialysis
CPT/HCPCS: 71045; 80053; 82550; 82803; 83615; 83735; 83880; 84484; 85025; 85610; 85730; 87040; 93005; 96374; 96375; 96376; 99284; J0610; J1940; J2270; J2405; J2930

== ENCOUNTER 2018-01-16 17:39 | Emergency (ER) | payer MEDICARE ==
[2018-01-16 17:40] VITALS: BMI 21.2
--- NOTE | 2018-01-16 18:04 | ED PDOC ---
Arrival/HPI - General Chief Complaint: Chest Pain Time Seen by Provider: 01/16/18 18:04 - History of Present Illness Narrative History of Present Illness (Text): 01/16/18 18:00 Patient is a 57 year old female whose past medical history includes, pulmonary hypertension, COPD, pneumonia, CHF, HI, seizure, and stroke, who presents to the Emergency department complaining of sharp chest pain during hemodialysis, which occurred approximately 30 minutes ago. Patient reports that during her hemodialysis she started experiencing chest pain radiating to her arms and throat, and her BP started to elevate to the 200's. She managed to finish her dialysis treatment and immediately came to the Emergency department. She mentions that her chest pain has improved but not resolved since coming to the Emergency department. Patient admits to experiencing dyspnea which she attributes to her COPD and CHF. She also mentions coughing and attributes it to recovering from recent pneumonia infection. Patient denies fevers, chills, abdominal pain, nausea, vomiting, diarrhea, back pain, neck pain, headache, dizziness, or any other complaint. Time/Duration: 1/2 hour Quality: Stabbing Context: Other (during hemodialysis) Past Medical History - Provider Review Nursing Documentation Reviewed: Yes - Past History Past History: No Previous - Infectious Disease Hx of Infectious Diseases: None - Tetanus Immunization Tetanus Immunization: Unknown - Reproductive Menopause: Yes - Cardiac Hx Congestive Heart Failure: Yes Hx Hypertension: Yes - Pulmonary Hx Chronic Obstructive Pulmonary Disease (COPD): Yes - Neurological Hx Alzheimer's Disease: No Hx Dementia: No Hx Migraine: Yes Hx Parkinson's Disease: No Hx Seizures: Yes Hx Transient Ischemic Attacks (TIA): Yes - HEENT Hx HEENT Disorder: Yes (hard of hearing,RIGHT EAR DEAF) Other/Comment: tinnitus, - Renal Hx Renal Disorder: Yes Hx Kidney Stones: No - Endocrine/Metabolic Hx Hypothyroidism: Yes - Hematological/Oncological Hx Anemia: Yes Hx Sickle Cell Disease: No - Integumentary Hx Dermatological Disorder: Yes (non healing sugical wound to right ankle) Other/Comment: r ankle wound,non healing surgical wound cared for by dr parada at wound center, wound 5.5 X 3.5 cm ,right buttocks red and open to air healed, SCARRED AREA.multiple skin discolorations to ble,EDEMA +1.Left thumb area with a 0.7 scabbed wound from rubbing to wheelchair, healedd - Musculoskeletal/Rheumatological Hx Arthritis: Yes - Gastrointestinal Hx Crohn's Disease: No Hx Diverticulitis: Yes Hx Gall Bladder Disease: No Hx Pancreatitis: No - Genitourinary/Gynecological Hx Sexually Transmitted Diseases: No - Psychiatric Hx Anxiety: Yes Hx Bipolar Disorder: No Hx Depression: No Hx Post Traumatic Stress Disorder: No Hx Schizophrenia: No Hx Substance Use: No - Past Surgical History Past Surgical History: Unable to Obtain - Surgical History Hx Appendectomy: Yes Hx Cholecystectomy: No Hx Coronary Stent: Yes Hx Tonsillectomy: Yes - Anesthesia Hx Anesthesia Reactions: No Hx Malignant Hyperthermia: No - Suicidal Assessment Feels Threatened In Home Enviroment: No Family/Social History - Physician Review Nursing Documentation Reviewed: Yes Family/Social History: No Known Family HX Smoking Status: Former Smoker Hx Alcohol Use: No Hx Substance Use: No Hx Substance Use Treatment: No Allergies/Home Meds Allergies/Adverse Reactions: Allergies ciprofloxacin Allergy (Verified 01/12/18 02:48) RASH hydralazine Allergy (Verified 01/12/18 02:48) RASH vomiting vancomycin Allergy (Verified 01/12/18 02:48) SHORTNESS OF BREATH palpitations ct dye Allergy (Uncoded 01/12/18 02:48) RASH Home Medications: Home Meds Medication Instructions Recorded Confirmed Lisinopril [Zestril] 40 mg PO DAILY 10/05/17 01/12/18 Sildenafil [Revatio] 20 mg PO Q8H 10/05/17 01/12/18 Clopidogrel [Plavix] 1 tab PO DAILY 11/18/17 01/12/18 NIFEdipine ER [Procardia XL] 30 tab PO DAILY 11/18/17 01/12/18 Prednisone [Deltasone] 20 mg PO BID 01/11/18 01/12/18 oxyCODONE/Acetaminophen [Percocet 1 tab PO BID 01/11/18 01/12/18 5/325 mg Tab] Labetalol [Trandate] 300 mg PO Q8H PRN 01/12/18 01/12/18 Levothyroxine [Synthroid] 75 mcg PO DAILY 01/12/18 01/12/18 Ondansetron ODT [Zofran ODT] 4 mg PO Q8H PRN 01/12/18 01/12/18 Pantoprazole [Protonix EC Tab] 40 mg PO DAILY 01/12/18 01/12/18 cloNIDine [Catapres] 0.1 mg PO TID 01/12/18 01/12/18 Review of Systems - Physician Review All systems were reviewed & negative as marked: Yes - Review of Systems Constitutional: absent: Fevers, Night Sweats Respiratory: SOB, Cough Cardiovascular: Chest Pain (radiating to arms and throat) Gastrointestinal: absent: Abdominal Pain, Diarrhea, Nausea, Vomiting Neurological: absent: Headache, Dizziness Physical Exam Vital Signs Reviewed: Yes Vital Signs Temp Pulse Resp BP Pulse Ox 01/16/18 19:11 72 18 174/84 H 100 01/16/18 18:01 98.9 F 81 20 172/83 H 99 Temperature: Afebrile Blood Pressure: Hypertensive Pulse: Regular Respiratory Rate: Normal Appearance: Positive for: Well-Appearing Mental Status: Positive for: Alert and Oriented X 3 - Systems Exam Head: Present: Atraumatic, Normocephalic Pupils: Present: PERRL Extroacular Muscles: Present: EOMI Conjunctiva: Present: Normal Mouth: Present: Moist Mucous Membranes Neck: Present: Normal Range of Motion Respiratory/Chest: Present: Clear to Auscultation, Good Air Exchange, Other ( Portal and permanent catheter on right side of chest.). No: Respiratory Distress, Accessory Muscle Use Cardiovascular: Present: Regular Rate and Rhythm, Normal S1, S2. No: Murmurs Abdomen: No: Tenderness, Distention, Peritoneal Signs Back: Present: Normal Inspection Upper Extremity: Present: Normal Inspection. No: Cyanosis, Edema Lower Extremity: Present: Normal Inspection. No: Edema Neurological: Present: GCS=15, CN II-XII Intact, Speech Normal Skin: Present: Warm, Dry, Normal Color, Other (Graft on right lower extremity). No: Rashes Psychiatric: Present: Alert, Oriented x 3, Normal Insight, Normal Concentration Medical Decision Making ED Course and Treatment: 01/16/18 18:00 Impression: Patient is a 57 year old female who presents to Emergency department complaining of chest pain during hemodialysis. Differential Diagnosis included but are not limited to: rule out pneumonia, rule out HI. Musculoskeletal pain. Plan: --lab work --EKG --cardiac enzymes --chest X-ray -- Reassess and disposition Prior Visits: Notes and results from previous visits were reviewed. Patient was last seen in the emergency department on 01/12/18 for CHF exacerbation and was hospitalized. Progress Notes: 01/16/18 17:51 EKG shows NSR at 77 BPM with normal axis, LVH, and left atrial enlargement. Artifacts noted in EKG. Interpreted by me. 01/16/18 19:20 Chest X-ray images show no acute disease. No acute pathology. Interpreted by me. 01/16/18 19:49 Patient was reevaluated and wishes to be discharged. Paged and patient will be discharged pending 's response. 01/16/18 20:05 Discussed case with , who is aware and agrees with the plan to discharge the patient. 01/16/18 20:08 Reevaluation: On reevaluation the patient feels better and is in no acute distress. I have discussed the results and plan with the patient, who expresses understanding. Patient given the opportunity to ask question, all questions were answered and there is agreement with the plan to discharge the patient home. Patient is stable for discharge. Patient was instructed to follow up with physician/clinic in 1-2 days or return if symptoms persist/worsen or new concerning symptoms arise. Patient given Metoprolol, Clonidine and tramadol before discharge. - Lab Interpretations Lab Results: 01/16/18 18:56 01/16/18 18:56 Lab Results 01/16/18 18:56: Sodium 142, Potassium 4.6, Chloride 100, Carbon Dioxide 30, Anion Gap 17, BUN 37 H, Creatinine 2.5 H, Est GFR ( Amer) 24, Est GFR ( Non-Af Amer) 20, Random Glucose 155 H, Calcium 8.4, Total Bilirubin 0.2, AST 25 , ALT 28, Alkaline Phosphatase 151 H D, Troponin I 0.05 D, Total Protein 6.2, Albumin 3.8, Globulin 2.4, Albumin/Globulin Ratio 1.6 01/16/18 18:56: WBC 4.8 D, RBC 3.18 L, Hgb 9.1 L, Hct 29.1 L, MCV 91.5 D, MCH 28.6, MCHC 31.3, RDW 15.4 H, Plt Count 214, MPV 9.7, Gran % 56.2, Lymph % (Auto ) 26.6, Barton % (Auto) 14.5 H, Eos % (Auto) 2.5, Baso % (Auto) 0.2, Gran # 2.68, Lymph # (Auto) 1.3, Barton # (Auto) 0.7 H, Eos # (Auto) 0.1, Baso # (Auto) 0.01 I have reviewed the lab results: Yes - RAD Interpretation Radiology Orders: 01/16/18 18:05 CHEST TWO VIEWS (PA/LAT) [RAD] Stat Vamper: ED Physician - EKG Interpretation Interpreted by ED Physician: Yes Type: 12 lead EKG - Medication Orders Current Medication Orders: Clonidine HCl (Catapres) 0.3 mg PO STAT STA Stop: 01/16/18 20:25 Metoprolol Succinate (Toprol Xl) 100 mg PO ONCE ONE Stop: 01/16/18 08:01 Discontinued Medications Tramadol HCl (Ultram) 50 mg PO STAT STA Stop: 01/16/18 20:15 - Scribe Statement The provider has reviewed the documentation as recorded by the Scribe Trevor Rosa Provider Scribe Attestation: All medical record entries made by the Scribe were at my direction and personally dictated by me. I have reviewed the chart and agree that the record accurately reflects my personal performance of the history, physical exam, medical decision making, and the department course for this patient. I have also personally directed, reviewed, and agree with the discharge instructions and disposition. Disposition/Present on Arrival - Present on Arrival Any Indicators Present on Arrival: No History of DVT/PE: No History of Uncontrolled Diabetes: No Urinary Catheter: No History of Decub. Ulcer: No History Surgical Site Infection Following: None - Disposition Have Diagnosis and Disposition been Completed?: Yes Diagnosis: Chest pain, Hypertension Disposition: HOME/ ROUTINE Disposition Time: 20:09 Patient Plan: Discharge Patient Problems: Current Active Problems Problem Status Onset Chest pain Acute Hypertension Acute Condition: GOOD Discharge Instructions (ExitCare): Chest Pain, Chest Pain (ED) Referrals: Mark Churchill, [Primary Care Provider] - Follow up with primary Forms: [employer] (Armenian)
[2018-01-16 19:00] LABS: BASO # 0.01 K/mm3 (0.0-2.0); BASO % 0.2 % (0.0-3.0); EOS # 0.1 (0.0-0.7); EOS % 2.5 % (1.5-5.0); GRAN # 2.68 (1.4-6.5); GRAN % 56.2 % (50.0-68.0); HEMOGLOBIN 9.1 g/dL (12.0-16.0); LYMPH # 1.3 (1.2-3.4); LYMPH % 26.6 % (22.0-35.0); MEAN CELL VOLUME 91.5 fl (80.0-105.0); MEAN CORPUSCULAR HEMOGLOBIN 28.6 pg (25.0-35.0); MEAN CORPUSCULAR HGB CONC 31.3 g/dl (31.0-37.0); MEAN PLATELET VOLUME 9.7 fl (7.0-11.0); MONO # 0.7 (0.1-0.6); MONO % 14.5 % (1.0-6.0); RBC 3.18 10^6/uL (3.5-6.1); RED CELL DISTRIBUTION WIDTH 15.4 % (11.5-14.5); WHITE BLOOD COUNT 4.8 10^3/ul (4.5-11.0)
[2018-01-16 19:11] VITALS: RESP 18; O2SAT 100
[2018-01-16 19:22] LABS: TROPONIN I 0.05 ng/mL
[2018-01-16 19:33] LABS: ALB/GLOB RATIO 1.6 (1.1-1.8); ALBUMIN 3.8 g/dL (3.0-4.8); CALCIUM 8.4 mg/dL (8.4-10.5)
[2018-01-16] MEDS ORDERED: Metoprolol Succinate 100 mg XL Tab PO STA (20:21)
[2018-01-16] MEDS ORDERED: Metoprolol Succinate 100 mg XL Tab PO ONE (20:30)
[2018-01-16 20:43] VITALS: BP 182/77; PULSE 72; TEMP 98.2
--- NOTE | 2018-01-17 09:06 | RAD ---
HISTORY: chest pain COMPARISON: Comparison chest dated 01/11/2018 TECHNIQUE: Chest PA and lateral FINDINGS: Re- demonstrated are a right axillary and subclavian endovascular stent through which a right subclavian MediPort again noted tip of which lies in the SVC/RA junction. Dual bore right IJ central venous line with tips in the SVC also unchanged LUNGS: Interval improvement previously noted mild pulmonary venous congestion PLEURA: No significant pleural effusion identified. No pneumothorax apparent. CARDIOVASCULAR: Heart size is mildly enlarged unchanged. . Vascular calcification proximal right brachiocephalic. Apparent vascular calcifications seen in the left lung apex and left axillary region as well. OSSEOUS STRUCTURES: No significant abnormalities. VISUALIZED UPPER ABDOMEN: Normal. OTHER FINDINGS: None. IMPRESSION: Interval improvement previously noted mild venous congestion
--- NOTE | 2018-01-17 09:44 | CARD ---
APPROVED REPORT EKG Measurement Heart [id number] <Conclusion> Normal sinus rhythm Possible Left atrial enlargement Left ventricular hypertrophy with repolarization abnormality No change except the rate has slowed.
== END 2018-01-16 20:45 | disposition home or self-care (01) ==
LOC: ED 17:39
DX: I10 Essential (primary) hypertension (principal); R07.9 Chest pain, unspecified; E03.9 Hypothyroidism, unspecified; I50.9 Heart failure, unspecified; Z87.891 Personal history of nicotine dependence; Z99.2 Dependence on renal dialysis

== ENCOUNTER 2018-01-19 09:36 | Emergency (ER) | payer MEDICARE, OTHER ==
[2018-01-19 09:36] VITALS: BMI 21.2
--- NOTE | 2018-01-19 09:55 | ED PDOC ---
Arrival/HPI - General Chief Complaint: Shortness Of Breath Time Seen by Provider: 01/19/18 09:46 Historian: Patient - History of Present Illness Narrative History of Present Illness (Text): 01/19/18 09:58 A 57 year old female whose past medical history includes, pulmonary hypertension , COPD, pneumonia, CHF, MD, seizure, and stroke, who presents to the Emergency department complaining of shortness of breath and chest pain for the past few days. The patient states that she experienced similar symptoms last week. The patient states that dialysis does not help her. She notes that the CPAP mask is the only thing that helps, but she needs to have a sleep test done before she is given a CPAP mask. The patient denies fevers, chills, headache, dizziness, cough, abdominal pain, nausea, vomiting, diarrhea, back pain, neck pain, urinary /bowel changes, or any other complaint. PMD: Dr. Coffman Time/Duration: Other (Few Days) Symptom Onset: Sudden Symptom Course: Unchanged Activities at Onset: Rest, Light Context: Home Associated Symptoms (Text): 01/19/18 10:20 Well-known to the emergency Department staff. Complains of chest pain and shortness of breath. Scheduled for dialysis this afternoon. Similar episode 4 days ago requiring transfer for dialysis. Patient reports that CPAP to help her. She does not appear to be in any distress. Past Medical History - Provider Review Nursing Documentation Reviewed: Yes - Past History Past History: No Previous - Infectious Disease Hx of Infectious Diseases: None - Tetanus Immunization Tetanus Immunization: Unknown - Cardiac Hx Congestive Heart Failure: Yes Hx Hypertension: Yes - Pulmonary Hx Chronic Obstructive Pulmonary Disease (COPD): Yes - Neurological Hx Alzheimer's Disease: No Hx Dementia: No Hx Migraine: Yes Hx Parkinson's Disease: No Hx Seizures: Yes Hx Transient Ischemic Attacks (TIA): Yes - HEENT Hx HEENT Disorder: Yes (hard of hearing,RIGHT EAR DEAF) Other/Comment: tinnitus, - Renal Hx Renal Disorder: Yes Hx Kidney Stones: No - Endocrine/Metabolic Hx Hypothyroidism: Yes - Hematological/Oncological Hx Anemia: Yes Hx Sickle Cell Disease: No - Integumentary Hx Dermatological Disorder: Yes (non healing sugical wound to right ankle) - Musculoskeletal/Rheumatological Hx Arthritis: Yes - Gastrointestinal Hx Crohn's Disease: No Hx Diverticulitis: Yes Hx Gall Bladder Disease: No Hx Pancreatitis: No - Genitourinary/Gynecological Hx Sexually Transmitted Diseases: No - Psychiatric Hx Anxiety: Yes Hx Bipolar Disorder: No Hx Depression: No Hx Post Traumatic Stress Disorder: No Hx Schizophrenia: No Hx Substance Use: No - Past Surgical History Past Surgical History: Unable to Obtain - Surgical History Hx Appendectomy: Yes Hx Cholecystectomy: No Hx Coronary Stent: Yes Hx Tonsillectomy: Yes - Anesthesia Hx Anesthesia Reactions: No Hx Malignant Hyperthermia: No - Suicidal Assessment Feels Threatened In Home Enviroment: No Family/Social History - Physician Review Nursing Documentation Reviewed: Yes Family/Social History: No Known Family HX Smoking Status: Former Smoker Hx Alcohol Use: No Hx Substance Use: No Hx Substance Use Treatment: No Allergies/Home Meds Allergies/Adverse Reactions: Allergies ciprofloxacin Allergy (Verified 01/19/18 09:42) RASH hydralazine Allergy (Verified 01/19/18 09:42) RASH vomiting vancomycin Allergy (Verified 01/19/18 09:42) SHORTNESS OF BREATH palpitations ct dye Allergy (Uncoded 01/19/18 09:42) RASH Home Medications: Home Meds Medication Instructions Recorded Confirmed Lisinopril [Zestril] 40 mg PO DAILY 10/05/17 01/19/18 Sildenafil [Revatio] 20 mg PO Q8H 10/05/17 01/19/18 Clopidogrel [Plavix] 1 tab PO DAILY 11/18/17 01/19/18 NIFEdipine ER [Procardia XL] 30 tab PO DAILY 11/18/17 01/19/18 Prednisone [Deltasone] 20 mg PO BID 01/11/18 01/19/18 oxyCODONE/Acetaminophen [Percocet 1 tab PO BID 01/11/18 01/19/18 5/325 mg Tab] Labetalol [Trandate] 300 mg PO Q8H PRN 01/12/18 01/19/18 Levothyroxine [Synthroid] 75 mcg PO DAILY 01/12/18 01/19/18 Ondansetron ODT [Zofran ODT] 4 mg PO Q8H PRN 01/12/18 01/19/18 Pantoprazole [Protonix EC Tab] 40 mg PO DAILY 01/12/18 01/19/18 cloNIDine [Catapres] 0.1 mg PO TID 01/12/18 01/19/18 Review of Systems - Physician Review All systems were reviewed & negative as marked: Yes - Review of Systems Constitutional: Fatigue. absent: Fevers, Night Sweats Respiratory: SOB. absent: Cough, Sputum Cardiovascular: Chest Pain. absent: Palpitations, Syncope Gastrointestinal: absent: Abdominal Pain, Stool Changes, Diarrhea, Nausea, Vomiting Genitourinary Female: absent: Urine Output Changes Musculoskeletal: absent: Back Pain, Neck Pain Neurological: absent: Headache, Dizziness Physical Exam Vital Signs Reviewed: Yes Vital Signs Temp Pulse Pulse Resp BP Pulse Ox 01/19/18 10:47 89 17 217/94 H 97 01/19/18 10:03 98.6 F 01/19/18 09:57 85 18 229/125 H 100 01/19/18 09:56 85 Temperature: Afebrile Blood Pressure: Hypertensive Pulse: Regular Respiratory Rate: Normal Appearance: Positive for: Well-Appearing, Non-Toxic, Comfortable Pain Distress: None Mental Status: Positive for: Alert and Oriented X 3 - Systems Exam Head: Present: Atraumatic, Normocephalic Pupils: Present: PERRL Extroacular Muscles: Present: EOMI Conjunctiva: Present: Normal Mouth: Present: Moist Mucous Membranes Pharnyx: No: ERYTHEMA, EXUDATE, TONSILS ENLARGED Neck: Present: Normal Range of Motion Respiratory/Chest: Present: Decreased Breath Sounds. No: Respiratory Distress, Accessory Muscle Use, Wheezes, Rales, Retracting Cardiovascular: Present: Regular Rate and Rhythm, Normal S1, S2. No: Murmurs Abdomen: No: Tenderness, Distention, Peritoneal Signs, Rebound, Guarding Back: Present: Normal Inspection Upper Extremity: Present: Normal Inspection. No: Cyanosis, Edema Lower Extremity: Present: Normal Inspection. No: Edema Neurological: Present: GCS=15, CN II-XII Intact, Speech Normal, Motor Func Grossly Intact Skin: Present: Warm, Dry, Normal Color. No: Rashes Psychiatric: Present: Alert, Oriented x 3, Normal Insight, Normal Concentration Medical Decision Making ED Course and Treatment: 01/19/18 10:01 Impression: A 57 year old female presents to the emergency department complaining of chest pain and shortness of breath for the past few days. Plan: -- EKG -- Chest X-ray -- Labs -- Reassess and disposition Prior Visits: Notes and results from previous visits were reviewed. Patient was last seen in the emergency department on 01/16/18. The pateint was treated in the emergency department for a complaint of sharp chest pain. Progress Notes: 01/19/18 10:22 EKG shows normal sinus rhythm rate approximately 80 with LVH and inverted T waves and poor R-wave progression and no acute changes 01/19/18 12:04 Patient was sent to dialysis for hyperkalemia CHEST X-RAY Dictator : Akhil Lennon MD Report Date : 01/19/2018 10:37:25 IMPRESSION: No active disease. 01/19/18 15:48 Finished dialysis. Feeling better. Discharge home with son. - Lab Interpretations Lab Results: 01/19/18 10:20 01/19/18 10:20 Lab Results 01/19/18 10:20: Sodium 142, Chloride 101, Potassium 6.7 H* D, Carbon Dioxide 22 , Anion Gap 26 H, BUN 105 H, Creatinine 6.6 H, Est GFR ( Amer) 8, Est GFR (Non-Af Amer) 6, Random Glucose 91, Calcium 8.0 L, Magnesium 2.0, Total Bilirubin 0.3, AST 23, ALT 32, Alkaline Phosphatase 127 H, Lactate Dehydrogenase 419, Total Creatine Kinase 34 L, Troponin I 0.05, NT-Pro-B Natriuret Pep [id number] H, Total Protein 6.0, Albumin 3.7, Globulin 2.3, Albumin/ Globulin Ratio 1.6 01/19/18 10:20: pO2 103 H, VBG pH 7.27 L, VBG pCO2 54.0, VBG HCO3 24.8, VBG Total CO2 26.5, VBG O2 Sat (Calc) 97.1 H, VBG Base Excess -2.9 L, VBG Potassium 6.6 H*, Sodium 135.0, Chloride 102.0, Glucose 93, Lactate 0.5 L, FiO2 21.0, Venous Blood Potassium 6.6 H* 01/19/18 10:20: PT 11.8, INR 1.03, APTT 26.0 01/19/18 10:20: WBC 6.9 D, RBC 2.95 L, Hgb 8.4 L, Hct 27.0 L, MCV 91.5, MCH 28.5, MCHC 31.1, RDW 15.5 H, Plt Count 192, MPV 10.2, Gran % 70.8 H, Lymph % ( Auto) 22.9, Walton % (Auto) 5.8, Eos % (Auto) 0.4 L, Baso % (Auto) 0.1, Gran # 4.84, Lymph # (Auto) 1.6, Walton # (Auto) 0.4, Eos # (Auto) 0.0, Baso # (Auto) 0.01 I have reviewed the lab results: Yes - RAD Interpretation Radiology Orders: 01/19/18 09:54 CHEST PORTABLE [RAD] Stat Chest 1 view shows a right-sided line present. Borderline cardiomegaly with increased markings. No infiltrate or effusion. Slot Floor Attendant: ED Physician - EKG Interpretation Interpreted by ED Physician: Yes Type: 12 lead EKG - Scribe Statement The provider has reviewed the documentation as recorded by the Scribe Eileen Norton Provider Scribe Attestation: All medical record entries made by the Scribe were at my direction and personally dictated by me. I have reviewed the chart and agree that the record accurately reflects my personal performance of the history, physical exam, medical decision making, and the department course for this patient. I have also personally directed, reviewed, and agree with the discharge instructions and disposition. Disposition/Present on Arrival - Present on Arrival Any Indicators Present on Arrival: No History of DVT/PE: No History of Uncontrolled Diabetes: No Urinary Catheter: No History of Decub. Ulcer: No History Surgical Site Infection Following: None - Disposition Have Diagnosis and Disposition been Completed?: Yes Diagnosis: Chest pain, Hypertension, ESRD (end stage renal disease), Hyperkalemia, Dyspnea Disposition: HOME/ ROUTINE Disposition Time: 15:49 Patient Plan: Discharge Condition: FAIR Discharge Instructions (ExitCare): Chest Pain (ED), High Blood Pressure in Adults, Hyperkalemia, Kidney Failure, Chest Pain (DC) Additional Instructions: Follow-up with your PMD. Follow up in ER as needed. Referrals: Brittany Coffman MD [Primary Care Provider] - Follow up with primary Forms: [employer] (Cameroonian)
[2018-01-19 10:32] LABS: BASO # 0.01 K/mm3 (0.0-2.0); BASO % 0.1 % (0.0-3.0); EOS % 0.4 % (1.5-5.0); GRAN # 4.84 (1.4-6.5); GRAN % 70.8 % (50.0-68.0); HEMOGLOBIN 8.4 g/dL (12.0-16.0); LYMPH # 1.6 (1.2-3.4); LYMPH % 22.9 % (22.0-35.0); MEAN CELL VOLUME 91.5 fl (80.0-105.0); MEAN CORPUSCULAR HEMOGLOBIN 28.5 pg (25.0-35.0); MEAN CORPUSCULAR HGB CONC 31.1 g/dl (31.0-37.0); MEAN PLATELET VOLUME 10.2 fl (7.0-11.0); MONO # 0.4 (0.1-0.6); MONO % 5.8 % (1.0-6.0); RBC 2.95 10^6/uL (3.5-6.1); RED CELL DISTRIBUTION WIDTH 15.5 % (11.5-14.5); WHITE BLOOD COUNT 6.9 10^3/ul (4.5-11.0)
[2018-01-19 10:33] LABS: VENOUS BLOOD GAS BASE EXCESS -2.9 mmol/L (0.0-2.0); VENOUS BLOOD GAS PO2 103 mm/Hg (30-55); VENOUS BLOOD PH 7.27 (7.32-7.43)
--- NOTE | 2018-01-19 10:39 | RAD ---
HISTORY: sob COMPARISON: 01/16/2018 FINDINGS: LUNGS: No active pulmonary disease. PLEURA: No significant pleural effusion identified, no pneumothorax apparent. CARDIOVASCULAR: Moderate cardiomegaly OSSEOUS STRUCTURES: No significant abnormalities. VISUALIZED UPPER ABDOMEN: Normal. OTHER FINDINGS: Right-sided Port-A-Cath an dialysis catheter unchanged IMPRESSION: No active disease.
[2018-01-19 10:41] LABS: INR 1.03 (0.93-1.08); PROTHROMBIN TIME 11.8 SECONDS (9.4-12.5)
[2018-01-19 10:49] LABS: ALB/GLOB RATIO 1.6 (1.1-1.8); ALBUMIN 3.7 g/dL (3.0-4.8)
[2018-01-19 10:53] LABS: TROPONIN I 0.05 ng/mL
--- NOTE | 2018-01-19 13:22 | CARD ---
APPROVED REPORT EKG Measurement Heart [id number] <Conclusion> Normal sinus rhythm Possible Left atrial enlargement Left ventricular hypertrophy with repolarization abnormality Abnormal ECG
[2018-01-19 16:29] VITALS: BP 193/78; O2SAT 100
[2018-01-19 16:49] VITALS: PULSE 72; RESP 16; TEMP 98.1
== END 2018-01-19 16:30 | disposition home or self-care (01) ==
LOC: ED 09:36
DX: I12.0 Hypertensive chronic kidney disease with stage 5 chronic kidney disease or end stage renal disease (principal); N18.6 End stage renal disease; E87.5 Hyperkalemia; R07.9 Chest pain, unspecified; R06.00 Dyspnea, unspecified; E03.9 Hypothyroidism, unspecified; I50.9 Heart failure, unspecified; Z87.891 Personal history of nicotine dependence; Z99.2 Dependence on renal dialysis

== ENCOUNTER 2018-02-02 03:45 | Emergency (ER) | payer MEDICARE ==
[2018-02-02 03:49] VITALS: BMI 20.5
--- NOTE | 2018-02-02 03:50 | ED PDOC ---
Arrival/HPI - General Time Seen by Provider: 02/02/18 03:50 Historian: Patient, EMS - History of Present Illness Narrative History of Present Illness (Text): 02/02/18 03:50 Renetta Thakur is a 57 year old female, whose past medical history includes hypertension, COPD, pulmonary hypertension, ESRD on hemodialysis, hypothyroidism , and gastritis, who presents to the emergency department brought in by EMS complaining of progressively worsening shortness of breath this evening. Patient notified EMS and patient was placed on CPAP. Patient seen on arrival to Emergency department. Patient denies any fever, chills, nausea, vomiting, diarrhea, urinary symptoms, back pain, neck pain, headache, dizziness, or any other complaints. Symptom Onset: Gradual Symptom Course: Worsening Activities at Onset: Light Context: Home Past Medical History - Provider Review Nursing Documentation Reviewed: Yes - Past History Past History: No Previous - Infectious Disease Hx of Infectious Diseases: None - Tetanus Immunization Tetanus Immunization: Unknown - Cardiac Hx Congestive Heart Failure: Yes Hx Hypertension: Yes - Pulmonary Hx Chronic Obstructive Pulmonary Disease (COPD): Yes - Neurological Hx Alzheimer's Disease: No Hx Dementia: No Hx Migraine: Yes Hx Parkinson's Disease: No Hx Seizures: Yes Hx Transient Ischemic Attacks (TIA): Yes - HEENT Hx HEENT Disorder: Yes (hard of hearing,RIGHT EAR DEAF) Other/Comment: tinnitus, - Renal Hx Renal Disorder: Yes Hx Kidney Stones: No - Endocrine/Metabolic Hx Hypothyroidism: Yes - Hematological/Oncological Hx Anemia: Yes Hx Sickle Cell Disease: No - Integumentary Hx Dermatological Disorder: Yes (non healing sugical wound to right ankle) - Musculoskeletal/Rheumatological Hx Arthritis: Yes - Gastrointestinal Hx Crohn's Disease: No Hx Diverticulitis: Yes Hx Gall Bladder Disease: No Hx Pancreatitis: No - Genitourinary/Gynecological Hx Sexually Transmitted Diseases: No - Psychiatric Hx Anxiety: Yes Hx Bipolar Disorder: No Hx Depression: No Hx Post Traumatic Stress Disorder: No Hx Schizophrenia: No Hx Substance Use: No - Past Surgical History Past Surgical History: Unable to Obtain - Surgical History Hx Appendectomy: Yes Hx Cholecystectomy: No Hx Coronary Stent: Yes Hx Tonsillectomy: Yes - Anesthesia Hx Anesthesia Reactions: No Hx Malignant Hyperthermia: No - Suicidal Assessment Feels Threatened In Home Enviroment: No Family/Social History - Physician Review Nursing Documentation Reviewed: Yes Family/Social History: Unknown Family HX Smoking Status: Former Smoker Hx Alcohol Use: No Hx Substance Use: No Hx Substance Use Treatment: No Allergies/Home Meds Allergies/Adverse Reactions: Allergies ciprofloxacin Allergy (Verified 02/02/18 05:57) RASH hydralazine Allergy (Verified 02/02/18 05:57) RASH vomiting vancomycin Allergy (Verified 02/02/18 05:57) SHORTNESS OF BREATH palpitations ct dye Allergy (Uncoded 02/02/18 05:57) RASH Home Medications: Home Meds Medication Instructions Recorded Confirmed Lisinopril [Zestril] 40 mg PO DAILY 10/05/17 02/02/18 Sildenafil [Revatio] 20 mg PO Q8H 10/05/17 02/02/18 Clopidogrel [Plavix] 1 tab PO DAILY 11/18/17 02/02/18 NIFEdipine ER [Procardia XL] 30 tab PO DAILY 11/18/17 02/02/18 Prednisone [Deltasone] 20 mg PO BID 01/11/18 02/02/18 oxyCODONE/Acetaminophen [Percocet 1 tab PO BID 01/11/18 02/02/18 5/325 mg Tab] Labetalol [Trandate] 300 mg PO Q8H PRN 01/12/18 02/02/18 Levothyroxine [Synthroid] 75 mcg PO DAILY 01/12/18 02/02/18 Ondansetron ODT [Zofran ODT] 4 mg PO Q8H PRN 01/12/18 02/02/18 Pantoprazole [Protonix EC Tab] 40 mg PO DAILY 01/12/18 02/02/18 cloNIDine [Catapres] 0.1 mg PO TID 01/12/18 02/02/18 Review of Systems - Physician Review All systems were reviewed & negative as marked: Yes - Review of Systems Constitutional: Normal. absent: Fevers Eyes: Normal ENT: Normal Respiratory: SOB Gastrointestinal: Normal. absent: Abdominal Pain, Diarrhea, Nausea, Vomiting Genitourinary Female: Normal. absent: Dysuria, Frequency, Hematuria, Urine Output Changes Musculoskeletal: Normal. absent: Back Pain, Neck Pain Skin: Normal. absent: Rash Neurological: Normal. absent: Headache, Dizziness Endocrine: Normal Hemo/Lymphatic: Normal Psychiatric: Normal Physical Exam Vital Signs Reviewed: Yes Vital Signs Temp Pulse Resp BP Pulse Ox 02/02/18 05:25 98.3 F 89 20 238/107 H 100 02/02/18 05:08 89 20 238/107 H 100 02/02/18 04:52 92 H 250/110 H 02/02/18 04:16 93 H 241/150 H 02/02/18 03:58 133 H 16 241/150 H 98 02/02/18 03:53 30 H 98 Temperature: Afebrile Blood Pressure: Hypertensive Pulse: Regular Respiratory Rate: Normal Appearance: Positive for: Well-Appearing, Non-Toxic, Comfortable Pain Distress: None Mental Status: Positive for: Alert and Oriented X 3 - Systems Exam Head: Present: Atraumatic, Normocephalic Pupils: Present: PERRL Extroacular Muscles: Present: EOMI Conjunctiva: Present: Normal Mouth: Present: Moist Mucous Membranes Neck: Present: Normal Range of Motion Respiratory/Chest: Present: Rales (Bilateral rales). No: Respiratory Distress, Accessory Muscle Use Cardiovascular: Present: Regular Rate and Rhythm, Normal S1, S2. No: Murmurs Abdomen: No: Tenderness, Distention, Peritoneal Signs Back: Present: Normal Inspection Upper Extremity: Present: Normal Inspection. No: Cyanosis, Edema Lower Extremity: Present: Normal Inspection. No: Edema Neurological: Present: GCS=15, CN II-XII Intact, Speech Normal Skin: Present: Warm, Dry, Normal Color. No: Rashes Psychiatric: Present: Alert, Oriented x 3, Normal Insight, Normal Concentration Medical Decision Making ED Course and Treatment: 02/02/18 03:50 Impression: 57 year old female brought in for shortness of breath. Plan: -- EKG -- Chest X-ray -- Labs, BNP -- Duoneb -- Lopressor -- Zofran -- Reassess and disposition Prior Visits: Notes and results from previous visits were reviewed. On 01/19/2018, pt was seen in the Emergency department for shortness of breath and chest pain. Pt was d/c home. Progress Notes: Pt seen on arrival to Emergency department. electrical engineering technologist at bedside and placed on BiPAP. 02/02/18 04:05 Reviewed EKG, sinus tachycardia at [address]pm[address] LVH. Non-specific ST/T wave changes. Case discussed with Dr. Tina Tan, ER attending at [facility], who is aware and agrees with plan for transfer for urgent HMD which is currently unavailable at [facility].. Accepts pt on transfer to [facility] ED. Transfer (Adult): Based upon the information available at the time of transfer, the medical benefits reasonably expected from the provision of medical treatment at [facility] outweigh the increased risk to the patient for transfer from this facility. I have described the inherent risks and benefits of the transfer to the patient, and patient agrees to transfer. I have spoken to Dr. Tan, [facility] ER attending, who has agreed to accept transfer of the patient and provide further medical treatment at the receiving facility. At the time of transfer, copies of all medical records sent which related to the emergency condition for which the individual presented. These records include observations of signs or symptoms, preliminary clinical impression, treatment provided, results of any completed test and an informed written consent to the transfer. 02/02/18 04:16 Chest X-ray reviewed, consistent with CHF. Call placed to Dr. Coffman's service. 02/02/18 04:[address] Coffman, made aware of pt transfer to [facility]. - Lab Interpretations Lab Results: 02/02/18 04:05 02/02/18 04:05 Lab Results 02/02/18 04:05: WBC 9.8 D, RBC 3.89, Hgb 11.2 L D, Hct 36.4, MCV 93.6, MCH 28.8 , MCHC 30.8 L, RDW 16.3 H, Plt Count 277, MPV 10.4 02/02/18 04:05: PT 11.4, INR 0.99, APTT 26.5 02/02/18 04:05: Sodium 141, Potassium 5.9 H*, Chloride 99, Carbon Dioxide 21, Anion Gap 27 H, BUN 73 H, Creatinine 7.6 H*, Est GFR ( Amer) 7, Est GFR ( Non-Af Amer) 6, Random Glucose 155 H, Calcium 8.6, Total Bilirubin 0.4, AST 43 H D, ALT 34, Alkaline Phosphatase 228 H D, Lactate Dehydrogenase 718 H, Total Creatine Kinase 83, Troponin I 0.10 D, NT-Pro-B Natriuret Pep 777805 H, Total Protein 7.5, Albumin 4.6, Globulin 2.9, Albumin/Globulin Ratio 1.6 - RAD Interpretation Radiology Orders: 02/02/18 03:53 CHEST PORTABLE [RAD] Stat Hand Paint Mixer: ED Physician - EKG Interpretation Interpreted by ED Physician: Yes Type: 12 lead EKG - Medication Orders Current Medication Orders: Discontinued Medications Albuterol/Ipratropium (Duoneb 3 Mg/0.5 Mg (3 Ml) Ud) 3 ml IH ONCE STA Stop: 02/02/18 03:55 Last Admin: 02/02/18 04:16 Dose: 3 ml Dextrose (Dextrose 50% Inj) 50 ml IVP ONCE ONE Stop: 02/02/18 05:18 Last Admin: 02/02/18 05:29 Dose: 50 ml IVP Administration Document 02/02/18 05:29 JOL (Rec: 02/02/18 05:29 [id number] Charges for Administration # of IVP Administrations 1 Nitroglycerin/Dextrose (Nitroglycerin 50 Mg/250 Ml D5w) 50 mg in 250 mls @ 3 mls/hr IV .Q24H PRN; Protocol; 10 MCG/MIN PRN Reason: Titrate per protocol Last Admin: 02/02/18 04:52 Dose: 3 mls/hr eMAR Start Stop Document 02/02/18 04:52 JOL (Rec: 02/02/18 04:52 [id number]) Intravenous Solution Start Date 02/02/18 Start Time 04:52 NOV Pulse and Blood Pressure Document 02/02/18 04:52 JOL (Rec: 02/02/18 04:52 JOL [facility] [id number]) Pulse Pulse Rate (60-90) 92 Blood Pressure Blood Pressure (100/60-150/90) 250/110 Insulin Human Regular (Humulin R) 10 units IVP STAT STA Stop: 02/02/18 05:28 Metoprolol Tartrate (Lopressor) 5 mg IVP STAT STA Stop: 02/02/18 04:09 Last Admin: 02/02/18 04:16 Dose: 5 mg IVP Administration Document 02/02/18 04:16 JOL (Rec: 02/02/18 04:16 JOL [id number]) Charges for Administration # of IVP Administrations 1 NOV Pulse and Blood Pressure Document 02/02/18 04:16 JOL (Rec: 02/02/18 04:16 JOL [id number]) Pulse Pulse Rate (60-90) 93 Blood Pressure Blood Pressure (100/60-150/90) 241/150 Morphine Sulfate (Morphine) 2 mg IVP STAT STA Stop: 02/02/18 05:18 Ondansetron HCl (Zofran Odt) 4 mg PO STAT STA Stop: 02/02/18 03:57 Last Admin: 02/02/18 04:15 Dose: 4 mg - Scribe Statement The provider has reviewed the documentation as recorded by the Jayleen Ramsay Provider Scribe Attestation: All medical record entries made by the Scribe were at my direction and personally dictated by me. I have reviewed the chart and agree that the record accurately reflects my personal performance of the history, physical exam, medical decision making, and the department course for this patient. I have also personally directed, reviewed, and agree with the discharge instructions and disposition. Disposition/Present on Arrival - Present on Arrival Any Indicators Present on Arrival: No History of DVT/PE: No History of Uncontrolled Diabetes: No Urinary Catheter: No History of Decub. Ulcer: No History Surgical Site Infection Following: None - Disposition Have Diagnosis and Disposition been Completed?: Yes Diagnosis: Hypertensive emergency, CHF (congestive heart failure), ESRD (end stage renal disease) Disposition: Transfer [facility] Disposition Time: 05:24 Patient Problems: Current Active Problems Problem Status Onset Acute pulmonary edema Acute ESRD (end stage renal disease) Acute Hyperkalemia Acute Hypertensive emergency Acute Respiratory distress Acute Condition: STABLE Discharge Instructions (ExitCare): Heart Failure (ED) Forms: [employer] (Greenlandic)
[2018-02-02] MEDS ORDERED: Albuterol-Ipratrop 3 mg / 0.5 (3 ml) UD IH STA (03:54)
[2018-02-02] MEDS ORDERED: Albuterol-Ipratrop 3 mg / 0.5 (3 ml) UD ONE (03:58)
[2018-02-02] MEDS ORDERED: Metoprolol 1 mg/ml Inj IVP STA (04:08)
[2018-02-02 04:31] LABS: MEAN CELL VOLUME 93.6 fl (80.0-105.0); MEAN CORPUSCULAR HEMOGLOBIN 28.8 pg (25.0-35.0); MEAN CORPUSCULAR HGB CONC 30.8 g/dl (31.0-37.0); MEAN PLATELET VOLUME 10.4 fl (7.0-11.0); RBC 3.89 10^6/uL (3.5-6.1); RED CELL DISTRIBUTION WIDTH 16.3 % (11.5-14.5); WHITE BLOOD COUNT 9.8 10^3/ul (4.5-11.0)
[2018-02-02 04:40] LABS: HEMOGLOBIN 11.2 g/dL (12.0-16.0)
[2018-02-02 04:42] LABS: INR 0.99 (0.93-1.08); PARTIAL THROMBOPLASTIN TIME 26.5 Seconds (25.1-36.5); PROTHROMBIN TIME 11.4 SECONDS (9.4-12.5)
[2018-02-02 04:46] LABS: ALB/GLOB RATIO 1.6 (1.1-1.8); ALBUMIN 4.6 g/dL (3.0-4.8); CALCIUM 8.6 mg/dL (8.4-10.5)
[2018-02-02] MEDS ORDERED: Nitroglycerin 50mg in D5W 50 MG/250 ML BOTTLE IV ONE (04:46)
[2018-02-02 04:47] LABS: TROPONIN I 0.1 ng/mL
[2018-02-02] MEDS ORDERED: Nitroglycerin 50mg in D5W 50 MG/250 ML BOTTLE IV PRN (04:47)
[2018-02-02 05:08] VITALS: BP 238/107; PULSE 89; RESP 20; O2SAT 100
[2018-02-02] MEDS ORDERED: Morphine 2 mg/2 mL syringe ONE (05:13)
[2018-02-02] MEDS ORDERED: Dextrose 50% SYRINGE Inj (50 ml) IVP ONE (05:17)
[2018-02-02] MEDS ORDERED: Morphine 2 mg/2 mL syringe IVP STA (05:17)
[2018-02-02] MEDS ORDERED: Insulin Regular 1 UNITS/0.01 ML ML ONE (05:19)
[2018-02-02] MEDS ORDERED: Insulin Regular 1 UNITS/0.01 ML ML IVP STA (05:27)
[2018-02-02 05:32] VITALS: TEMP 98.3
--- NOTE | 2018-02-02 08:11 | RAD ---
HISTORY: sob COMPARISON: 01/19/2018 FINDINGS: LUNGS: No active pulmonary disease. PLEURA: No significant pleural effusion identified, no pneumothorax apparent. CARDIOVASCULAR: Mild cardiomegaly. Moderate vascular congestion. OSSEOUS STRUCTURES: No significant abnormalities. VISUALIZED UPPER ABDOMEN: Normal. OTHER FINDINGS: Right-sided dialysis catheter and Port-A-Cath IMPRESSION: Moderate vascular congestion
--- NOTE | 2018-02-02 14:28 | CARD ---
APPROVED REPORT EKG Measurement Heart [id number] 150P55 [id number] <Conclusion> Sinus tachycardia Possible Left atrial enlargement Left ventricular hypertrophy with repolarization abnormality Abnormal ECG
== END 2018-02-02 05:25 | disposition short-term general hospital (02) ==
LOC: ED 03:45
DX: I16.1 Hypertensive emergency (principal); I50.9 Heart failure, unspecified; I12.0 Hypertensive chronic kidney disease with stage 5 chronic kidney disease or end stage renal disease; N18.6 End stage renal disease; Z87.891 Personal history of nicotine dependence; Z99.2 Dependence on renal dialysis; J44.9 Chronic obstructive pulmonary disease, unspecified; E03.9 Hypothyroidism, unspecified

== ENCOUNTER 2018-02-08 05:52 | Observation (INO) | payer MEDICARE, OTHER ==
--- NOTE | 2018-02-08 06:17 | ED PDOC ---
Arrival/HPI - General Chief Complaint: Shortness Of Breath Time Seen by Provider: 02/08/18 05:59 Historian: Patient - History of Present Illness Narrative History of Present Illness (Text): 02/08/18 06:13 Renetta Thakur is a 57 year old female, whose past medical history includes hypertension, COPD, pulmonary hypertension, ESRD on hemodialysis, hypothyroidism , and gastritis, who presents to the emergency department brought in by EMS complaining of shortness of breath since yesterday evening. Patient reports associated chest pain, diffuse body aches, and nausea. Patient states she was last dialyzed 2 days ago and is due for hemodialysis tomorrow. Patient denies any fever, chills, nausea, vomiting, diarrhea, urinary symptoms, back pain, neck pain, headache, dizziness, or any other complaints. PMD: Dr. Coffman Symptom Onset: Gradual Symptom Course: Unchanged Activities at Onset: Light Context: Home Past Medical History - Provider Review Nursing Documentation Reviewed: Yes - Past History Past History: No Previous - Infectious Disease Hx of Infectious Diseases: None - Tetanus Immunization Tetanus Immunization: Unknown - Cardiac Hx Cardiac Disorders: Yes Hx Congestive Heart Failure: Yes Hx Hypertension: Yes - Pulmonary Hx Chronic Obstructive Pulmonary Disease (COPD): Yes - Neurological Hx Neurological Disorder: Yes Hx Alzheimer's Disease: No Hx Dementia: No Hx Migraine: Yes Hx Parkinson's Disease: No Hx Seizures: Yes Hx Transient Ischemic Attacks (TIA): Yes - HEENT Hx HEENT Disorder: Yes (hard of hearing,RIGHT EAR DEAF) Other/Comment: tinnitus, - Renal Hx Renal Disorder: Yes Hx Dialysis: Yes (T,Th,Thu) Date of Last Dialysis Treatment: 02/06/18 Hx Kidney Stones: No - Endocrine/Metabolic Hx Endocrine Disorders: Yes Hx Hypothyroidism: Yes - Hematological/Oncological Hx Anemia: Yes Hx Sickle Cell Disease: No - Integumentary Hx Dermatological Disorder: Yes (non healing sugical wound to right ankle) - Musculoskeletal/Rheumatological Hx Arthritis: Yes - Gastrointestinal Hx Crohn's Disease: No Hx Diverticulitis: Yes Hx Gall Bladder Disease: No Hx Pancreatitis: No - Genitourinary/Gynecological Hx Sexually Transmitted Diseases: No - Psychiatric Hx Anxiety: Yes Hx Bipolar Disorder: No Hx Depression: No Hx Post Traumatic Stress Disorder: No Hx Schizophrenia: No Hx Substance Use: No - Past Surgical History Past Surgical History: Unable to Obtain - Surgical History Hx Appendectomy: Yes Hx Cholecystectomy: No Hx Coronary Stent: Yes Hx Tonsillectomy: Yes - Anesthesia Hx Anesthesia Reactions: No Hx Malignant Hyperthermia: No - Suicidal Assessment Feels Threatened In Home Enviroment: No Family/Social History - Physician Review Nursing Documentation Reviewed: Yes Family/Social History: Unknown Family HX Smoking Status: Former Smoker Hx Alcohol Use: No Hx Substance Use: No Hx Substance Use Treatment: No Allergies/Home Meds Allergies/Adverse Reactions: Allergies ciprofloxacin Allergy (Verified 02/08/18 05:55) RASH hydralazine Allergy (Verified 02/08/18 05:55) RASH vomiting vancomycin Allergy (Verified 02/08/18 05:55) SHORTNESS OF BREATH palpitations ct dye Allergy (Uncoded 02/08/18 05:55) RASH Home Medications: Home Meds Medication Instructions Recorded Confirmed Lisinopril [Zestril] 40 mg PO DAILY 10/05/17 02/08/18 Sildenafil [Revatio] 20 mg PO Q8H 10/05/17 02/08/18 Clopidogrel [Plavix] 1 tab PO DAILY 11/18/17 02/08/18 NIFEdipine ER [Procardia XL] 30 tab PO DAILY 11/18/17 02/08/18 Prednisone [Deltasone] 20 mg PO BID 01/11/18 02/08/18 oxyCODONE/Acetaminophen [Percocet 1 tab PO BID 01/11/18 02/08/18 5/325 mg Tab] Labetalol [Trandate] 300 mg PO Q8H PRN 01/12/18 02/08/18 Levothyroxine [Synthroid] 75 mcg PO DAILY 01/12/18 02/08/18 Ondansetron ODT [Zofran ODT] 4 mg PO Q8H PRN 01/12/18 02/08/18 Pantoprazole [Protonix EC Tab] 40 mg PO DAILY 01/12/18 02/08/18 cloNIDine [Catapres] 0.1 mg PO TID 01/12/18 02/08/18 Review of Systems - Physician Review All systems were reviewed & negative as marked: Yes - Review of Systems Constitutional: Normal. absent: Fevers Eyes: Normal ENT: Normal Respiratory: SOB Cardiovascular: Chest Pain Gastrointestinal: Normal. absent: Abdominal Pain, Diarrhea, Nausea, Vomiting Genitourinary Female: Normal. absent: Dysuria, Frequency, Hematuria, Urine Output Changes Musculoskeletal: Other (+body aches). absent: Back Pain, Neck Pain Skin: Normal. absent: Rash Neurological: Normal. absent: Headache, Dizziness Endocrine: Normal Hemo/Lymphatic: Normal Psychiatric: Normal Physical Exam Vital Signs Reviewed: Yes Vital Signs Temp Pulse Resp BP Pulse Ox 02/08/18 06:01 99.1 F 80 22 173/69 H 98 Temperature: Afebrile Blood Pressure: Hypertensive Pulse: Regular Respiratory Rate: Normal Appearance: Positive for: Well-Appearing, Non-Toxic, Comfortable Pain Distress: None Mental Status: Positive for: Alert and Oriented X 3 - Systems Exam Head: Present: Atraumatic, Normocephalic Pupils: Present: PERRL Extroacular Muscles: Present: EOMI Conjunctiva: Present: Normal Mouth: Present: Moist Mucous Membranes Neck: Present: Normal Range of Motion Respiratory/Chest: Present: Rhonchi. No: Respiratory Distress, Accessory Muscle Use Cardiovascular: Present: Regular Rate and Rhythm, Normal S1, S2. No: Murmurs Abdomen: No: Tenderness, Distention, Peritoneal Signs Back: Present: Normal Inspection Upper Extremity: Present: Normal Inspection. No: Cyanosis, Edema Lower Extremity: Present: Normal Inspection. No: Edema Neurological: Present: GCS=15, CN II-XII Intact, Speech Normal Skin: Present: Warm, Dry, Normal Color. No: Rashes Psychiatric: Present: Alert, Oriented x 3, Normal Insight, Normal Concentration Medical Decision Making ED Course and Treatment: 02/08/18 06:13 Impression: 57 year old female complaining of shortness of breath, chest pain, diffuse body aches, and nausea. Differential Diagnosis included but are not limited to: CHF vs. COPD vs. pneumonia vs. PE Plan: -- EKG -- Chest X-ray -- Labs, cardiac enzymes, BNP -- Reassess and disposition Prior Visits: Notes and results from previous visits were reviewed. On 02/02/2018, pt was seen in the Emergency department for shortness of breath. Pt was transferred to [facility] for dialysis and was admitted to the hospital. Progress Notes: 02/08/18 06:18 Reviewed EKG, NSR at 79 bpm. LVH with repolarization abnormality. Unchanged from EKG from 02/02/2018. 02/08/18 06:42 Chest X-ray reviewed, shows cardiomegaly. 02/08/18 07:00 Case endorsed to /pending labs/reassess/final disposition - RAD Interpretation Radiology Orders: 02/08/18 06:15 CHEST PORTABLE [RAD] Stat Structural Layout Worker: ED Physician - EKG Interpretation Interpreted by ED Physician: Yes Type: 12 lead EKG - Medication Orders Current Medication Orders: Discontinued Medications Albuterol/Ipratropium (Duoneb 3 Mg/0.5 Mg (3 Ml) Ud) 3 ml IH ONCE STA Stop: 02/08/18 06:23 Last Admin: 02/08/18 06:48 Dose: 3 ml Nitroglycerin (Nitro-Bid 2% Oint) 1 ea TOP ONCE STA Stop: 02/08/18 06:23 Last Admin: 02/08/18 06:48 Dose: 1 ea Ondansetron HCl (Zofran Inj) 4 mg IVP ONCE ONE Stop: 02/08/18 06:23 Last Admin: 02/08/18 06:51 Dose: 4 mg IVP Administration Document 02/08/18 06:51 CNR (Rec: 02/08/18 06:51 CNR [id number]) Charges for Administration # of IVP Administrations 1 - Scribe Statement The provider has reviewed the documentation as recorded by the Jayleen Ramsay Provider Scribe Attestation: All medical record entries made by the Scribe were at my direction and personally dictated by me. I have reviewed the chart and agree that the record accurately reflects my personal performance of the history, physical exam, medical decision making, and the department course for this patient. I have also personally directed, reviewed, and agree with the discharge instructions and disposition. Disposition/Present on Arrival - Present on Arrival Any Indicators Present on Arrival: No History of DVT/PE: No History of Uncontrolled Diabetes: No Urinary Catheter: No History of Decub. Ulcer: No History Surgical Site Infection Following: None - Disposition Have Diagnosis and Disposition been Completed?: No Diagnosis: ESRD (end stage renal disease), Chest pain Disposition Time: 07:00 Patient Problems: Current Active Problems Problem Status Onset Chest pain Acute ESRD (end stage renal disease) Acute Condition: STABLE Discharge Instructions (ExitCare): Chest Pain (ED) Forms: [employer] (Vietnamese)
[2018-02-08] MEDS ORDERED: Nitroglycerin 2% Ointment Foilpak UD TOP STA (06:22)
[2018-02-08] MEDS ORDERED: Albuterol-Ipratrop 3 mg / 0.5 (3 ml) UD IH STA (06:22)
--- NOTE | 2018-02-08 07:10 | ED PDOC ---
Physical Exam Vital Signs Reviewed: Yes Vital Signs Temp Pulse Resp BP Pulse Ox 02/08/18 08:00 98 H 17 167/75 H 100 02/08/18 06:01 99.1 F 80 22 173/69 H 98 Temperature: Afebrile Blood Pressure: Hypertensive Pulse: Regular Respiratory Rate: Normal Medical Decision Making ED Course and Treatment: 02/08/18 07:10 Patient endorsed to me by Dr. Arriaza, pending labs, reassessment and disposition. 02/08/18 8:10 Patient noted to have elevated potassium of 8.6. Patient was treated with Calcium Gluconate, Regular Insulin 10 units, Dextrose 50% 1amp and Kayexalate PO. Patient continues to be on oxygen and is complaining and general body pain. She was given Morphine for pain control. Case wad discussed with Dr. Smith for Nephrology for dialysis, Case discussed with Dr. Coffman who will place patient on her service. - Critical Care Critical Care Minutes: 45 minutes - Lab Interpretations Lab Results: 02/08/18 07:05 02/08/18 07:05 Lab Results 02/08/18 07:05: WBC 8.6, RBC 3.71, Hgb 10.7 L, Hct 34.7 L, MCV 93.5, MCH 28.8, MCHC 30.8 L, RDW 15.6 H, Plt Count 251, MPV 10.1 02/08/18 07:05: Sodium 139, Potassium 8.6 H* D, Chloride 96 L, Carbon Dioxide 25 , Anion Gap 27 H, BUN 109 H, Creatinine 6.3 H, Est GFR ( Amer) 8, Est GFR (Non-Af Amer) 7, Random Glucose 120 H, Calcium 9.2, Total Bilirubin 0.3, AST 27, ALT 29, Alkaline Phosphatase 154 H, Lactate Dehydrogenase 513, Total Creatine Kinase 38, Troponin I 0.10, NT-Pro-B Natriuret Pep > 09510 H, Total Protein 6.8, Albumin 4.4, Globulin 2.4, Albumin/Globulin Ratio 1.8 02/08/18 07:05: PT 12.6 H, INR 1.09 H, APTT 26.4 - RAD Interpretation Radiology Orders: 02/08/18 06:15 CHEST PORTABLE [RAD] Stat - Medication Orders Current Medication Orders: Discontinued Medications Albuterol/Ipratropium (Duoneb 3 Mg/0.5 Mg (3 Ml) Ud) 3 ml IH ONCE STA Stop: 02/08/18 06:23 Last Admin: 02/08/18 06:48 Dose: 3 ml Calcium Gluconate (Calcium Gluconate Iv) 1,000 mg IVP ONCE ONE Stop: 02/08/18 07:54 Last Admin: 02/08/18 08:48 Dose: 1,000 mg IVP Administration Document 02/08/18 08:48 [facility] (Rec: 02/08/18 08:48 [facility] [id number]) Charges for Administration # of IVP Administrations 1 Dextrose (Dextrose 50% Inj) 50 ml IVP STAT STA Stop: 02/08/18 07:54 Last Admin: 02/08/18 08:48 Dose: 50 ml IVP Administration Document 02/08/18 08:48 [facility] (Rec: 02/08/18 08:49 [facility] [id number]) Charges for Administration # of IVP Administrations 1 Insulin Human Regular (Humulin R) 10 units IVP STAT STA Stop: 02/08/18 07:54 Last Admin: 02/08/18 08:49 Dose: 10 units IVP Administration Document 02/08/18 08:49 [facility] (Rec: 02/08/18 08:49 [facility] [id number]) Charges for Administration # of IVP Administrations 1 Morphine Sulfate (Morphine) 2 mg IVP STAT STA Stop: 02/08/18 08:18 Morphine Sulfate (Morphine) 2 mg IVP ONCE ONE Stop: 02/08/18 08:31 Last Admin: 02/08/18 10:57 Dose: 2 mg IVP Administration Document 02/08/18 10:57 MG (Rec: 02/08/18 10:57 MG [id number]) Charges for Administration # of IVP Administrations 1 Nitroglycerin (Nitro-Bid 2% Oint) 1 ea TOP ONCE STA Stop: 02/08/18 06:23 Last Admin: 02/08/18 06:48 Dose: 1 ea Ondansetron HCl (Zofran Inj) 4 mg IVP ONCE ONE Stop: 02/08/18 06:23 Last Admin: 02/08/18 06:51 Dose: 4 mg IVP Administration Document 02/08/18 06:51 CNR (Rec: 02/08/18 06:51 CNR [id number]) Charges for Administration # of IVP Administrations 1 Sodium Polystyrene Sulfonate (Kayexalate Susp) 30 gm PO STAT STA Stop: 02/08/18 07:54 Last Admin: 02/08/18 08:48 Dose: 30 gm - Scribe Statement The provider has reviewed the documentation as recorded by the Aaronibthais Mcclain Provider Scribe Attestation: All medical record entries made by the Scribe were at my direction and personally dictated by me. I have reviewed the chart and agree that the record accurately reflects my personal performance of the history, physical exam, medical decision making, and the department course for this patient. I have also personally directed, reviewed, and agree with the discharge instructions and disposition. Disposition/Present on Arrival - Present on Arrival Any Indicators Present on Arrival: No History of DVT/PE: No History of Uncontrolled Diabetes: No Urinary Catheter: No History of Decub. Ulcer: No History Surgical Site Infection Following: None - Disposition Have Diagnosis and Disposition been Completed?: Yes Diagnosis: ESRD (end stage renal disease), Chest pain Disposition: HOSPITALIZED Disposition Time: 08:10 Patient Plan: Admission Patient Problems: Current Active Problems Problem Status Onset ESRD (end stage renal disease) Acute Chest pain Acute Condition: STABLE
[2018-02-08 07:19] LABS: HEMOGLOBIN 10.7 g/dL (12.0-16.0); MEAN CELL VOLUME 93.5 fl (80.0-105.0); MEAN CORPUSCULAR HEMOGLOBIN 28.8 pg (25.0-35.0); MEAN CORPUSCULAR HGB CONC 30.8 g/dl (31.0-37.0); MEAN PLATELET VOLUME 10.1 fl (7.0-11.0); RBC 3.71 10^6/uL (3.5-6.1); RED CELL DISTRIBUTION WIDTH 15.6 % (11.5-14.5); WHITE BLOOD COUNT 8.6 10^3/ul (4.5-11.0)
[2018-02-08 07:34] LABS: INR 1.09 (0.93-1.08); PARTIAL THROMBOPLASTIN TIME 26.4 Seconds (25.1-36.5); PROTHROMBIN TIME 12.6 SECONDS (9.4-12.5)
[2018-02-08 07:50] LABS: B-TYPE NATRIURETIC PEPTIDE > 35000 pg/mL (0-450); BLOOD UREA NITROGEN 109 mg/dL (7-21); GFR AFRICAN-AMERICAN 8; GFR NON-AFRICAN AMERICAN 7
[2018-02-08 07:51] LABS: ALB/GLOB RATIO 1.8 (1.1-1.8); ALBUMIN 4.4 g/dL (3.0-4.8); ALT/SGPT 29 U/L (7-56); AST/SGOT 27 U/L (14-36); CALCIUM 9.2 mg/dL (8.4-10.5)
[2018-02-08] MEDS ORDERED: Insulin Regular 1 UNITS/0.01 ML ML IVP STA (07:53)
[2018-02-08] MEDS ORDERED: Dextrose 50% SYRINGE Inj (50 ml) IVP STA (07:53)
[2018-02-08] MEDS ORDERED: Sod Polystyrene Sulf 15 gm/60 ml Susp PO STA (07:53)
[2018-02-08] MEDS ORDERED: Morphine 2 mg/ml ISec IVP STA (08:17)
[2018-02-08] MEDS: Morphine 2 mg/2 mL syringe IVP ONE ×2 (08:48→10:57)
--- NOTE | 2018-02-08 09:41 | RAD ---
HISTORY: sob COMPARISON: 02/02/2018 FINDINGS: LUNGS: No active pulmonary disease. PLEURA: No significant pleural effusion identified, no pneumothorax apparent. CARDIOVASCULAR: Mild cardiomegaly OSSEOUS STRUCTURES: No significant abnormalities. VISUALIZED UPPER ABDOMEN: Normal. OTHER FINDINGS: None. IMPRESSION: No active disease.
--- NOTE | 2018-02-08 11:25 | CARD ---
APPROVED REPORT EKG Measurement Heart [id number] <Conclusion> Normal sinus rhythm Possible Left atrial enlargement Left ventricular hypertrophy with repolarization abnormality No change
[2018-02-08] MEDS: Pantoprazole 40 mg EC Tab PO SCH (15:36)
[2018-02-08] MEDS: Oxycodone/Acetaminophen 5/325 mg Tab PO SCH (18:00)
[2018-02-08] MEDS: Sildenafil 20 MG TAB PO SCH ×2 (18:03→21:30)
[2018-02-08] MEDS: NIFEdipine 30 mg ER Tab PO SCH (18:03)
[2018-02-08] MEDS ORDERED: Morphine 2 mg/ml ISec IVP PRN (18:14)
[2018-02-08] MEDS ORDERED: Albuterol-Ipratrop 3 mg / 0.5 (3 ml) UD IH PRN (18:15)
[2018-02-08 18:25] VITALS: BMI 21.6
[2018-02-08] MEDS ORDERED: Pneumococcal 23-Valent Vaccine IM ONE (18:26)
[2018-02-08] MEDS: Albuterol-Ipratrop 3 mg / 0.5 (3 ml) UD IH SCH (19:38)
--- NOTE | 2018-02-08 21:09 | CON ---
DATE: 02/08/2018 REASON FOR CONSULTATION: Severe hyperkalemia, shortness of breath, and chest tightness. HISTORY OF PRESENTING ILLNESS: A 57-year-old lady with history of COPD, ESRD, severe hypertension, and anxiety, who is presenting to the emergency room with complaints of generalized body aches, shortness of breath, and chest tightness. She is found to have a potassium of 8.6. The patient reports that she did not eat some tomatoes but denies eating any other hyperkalemic foods. She reports she is often having shortness of breath. She feels better when she uses CPAP machine as she did when she was in [facility]. PAST MEDICAL AND SURGICAL HISTORY: COPD, hypertension, anxiety, ESRD, pulmonary hypertension, anemia of chronic kidney disease, secondary hyperparathyroidism, recurrent episodes of hypertensive emergency, hyperkalemia. FAMILY HISTORY: Hypertension. SOCIAL HISTORY: Ex-smoker, no alcohol use, no IV drug abuse. ALLERGIES: CIPROFLOXACIN, HYDRALAZINE, VANCOMYCIN. MEDICATIONS: Percocet, Keppra, Catapres, amlodipine, Revatio, prednisone, Protonix, Zofran, nifedipine, Zestril, Synthroid, labetalol, Plavix, Coreg, and Lipitor. REVIEW OF SYSTEMS: All systems are reviewed, pertinent positives as mentioned in the history of presenting illness, rest unremarkable. PHYSICAL EXAMINATION: GENERAL: Middle-aged lady sitting in bed, in the dialysis unit. VITAL SIGNS: Blood pressure 167/75, heart rate 98, respiratory rate 18-20, temperature 99.1, T-max is 99.1. HEENT: Normocephalic, atraumatic, positive pallor. NECK: Supple, no JVD. LUNGS: Bilateral equal air entry, bilateral distant breath sounds, bilateral rhonchi. CARDIAC: S1 and S2, regular rate and rhythm, no murmur, no rub. ABDOMEN: Obese, distended, soft, nontender, bowel sounds present. EXTREMITIES: No lower extremity edema. LABORATORY DATA: WBC 8.6, hemoglobin 10.7, hematocrit 34.7, platelets 251. Sodium 139, potassium 8.6, chloride 96, CO2 of 25, BUN 109, creatinine 6.3, glucose 120, calcium 9.2, phosphorus 7.8, magnesium 2.1. AST 27, ALT 29. BNP greater than 35,000, albumin 4.4. Chest x-ray, minimal interstitial markings, no active disease. ASSESSMENT: 1. Severe life-threatening hyperkalemia. 2. Chronic obstructive pulmonary disease exacerbation. 3. Hypertension, uncontrolled. 4. End-stage renal disease. 5. Peripheral vascular disease. 6. Hyperphosphatemia. PLAN: 1. Urgent dialysis, will dialyze for 3 hours with potassium one bath. 2. Will likely need dialysis again tomorrow. 3. Pulmonary evaluation for evaluation of obstructive sleep apnea and CPAP. 4. Phosphate binder, Renagel 1600 mg three times a day with food. Thank you for the courtesy of this consultation. We will follow this patient closely with you. Tamanna Smith MD
[2018-02-08] MEDS: Morphine 2 mg/2 mL syringe IVP PRN (21:48)
--- NOTE | 2018-02-08 23:00 | HP ---
HISTORY OF PRESENT ILLNESS: Patient is 57-year-old, known to me from multiple previous admissions, came to emergency room because of chest pain, pressure, cough, congestion, shortness of breath. Denies any fever at home. The patient complained of feeling nauseous. She was also noted to have high potassium; so, she was being treated for that. PAST MEDICAL HISTORY: Significant for: 1. Uncontrolled hypertension. 2. History of peripheral vascular disease, status post bypass surgery. 3. Active smoker. 4. COPD. 5. Hypertension. 6. Hyperlipidemia. 7. Gastritis. 8. Chronic back pain. 9. Chronic constipation. ALLERGIES: SHE IS ALLERGIC TO: 1. CIPRO. 2. HYDRALAZINE. 3. VANCOMYCIN. SOCIAL HISTORY: She used to be a smoker, but recently quit. She still smoke here and there one to two cigarette a day. MEDICATIONS AT HOME: 1. The patient is on Percocet. 2. She is on Keppra because of seizure disorder. 3. Catapres 0.1 t.i.d. 4. Amlodipine 10 mg daily. 5. Revatio. 6. Prednisone 20 mg twice a day. 7. Protonix 40 daily. 8. Nifedipine. 9. Lisinopril. 10. Levothyroxine. 11. Labetalol. 12. Plavix for carotid stenting. 13. Coreg. REVIEW OF SYSTEMS: Significant for chest discomfort and shortness of breath. PHYSICAL EXAMINATION: GENERAL: She is awake, alert, oriented, communicative. VITAL SIGNS: She is afebrile. Pulse 80, respiration 17, blood pressure 167/75. LUNGS: Bilateral good airflow. No rhonchi or crackle. HEART: S1 and S2 audible. ABDOMEN: Soft, nontender. No rebound. No guarding. NEUROLOGIC: The patient is awake, alert, oriented, communicative. EXTREMITIES: Bilateral leg, no edema. LABORATORY EXAM: WBC is 8.6, hemoglobin 10.7, hematocrit 34.7, platelets of 251. PT 12.6, INR 1.09. Chemistry: Sodium 139, potassium 8.6, chloride 96, CO2 of 27, BUN 109, creatinine 6.3, blood sugar of 120. Phosphorus 7.8, alk phos 154, BNP is 35,000. ASSESSMENT AND PLAN: 1. Pulmonary edema. 2. Hyperkalemia. 3. End-stage renal disease, on hemodialysis. 4. Hypertension. 5. Gastritis. 6. Peripheral vascular disease. PLAN: Patient is getting hemodialysis. We will resume her medications, monitor her electrolytes and we will reevaluate, possible early discharge . Brittany Coffman MD
[2018-02-09] MEDS: Albuterol-Ipratrop 3 mg / 0.5 (3 ml) UD IH SCH ×3 (01:31→14:37)
[2018-02-09] MEDS: Sildenafil 20 MG TAB PO SCH ×2 (05:20→12:05)
[2018-02-09] MEDS: Morphine 2 mg/2 mL syringe IVP PRN ×3 (05:30→18:25)
[2018-02-09 06:14] VITALS: O2SAT 97
--- NOTE | 2018-02-09 08:50 | CON ---
DATE: 02/08/2018 PULMONARY CONSULTATION REFERRING PHYSICIAN: Brittany Coffman MD REASON FOR CONSULTATION: Cough, shortness of breath, may have sleep apnea syndrome. HISTORY OF PRESENT ILLNESS: This is a 57-year-old female known to me from previous admissions, has a known history of renal failure, dialysis dependent, suspected sleep apnea syndrome, chronic obstructive lung disease, hypertension, heart failure, supposed to have PFT and sleep study as outpatient, did not follow up. She has a recurrent hospital admission with multiple causes. This time was in ER feeling aches, pain, not feeling well, found to have a very high potassium, kept under observation. She claims she feels better when she uses the BiPAP. have a cough and shortness of breath. No hemoptysis. No hematemesis. No hematuria or diarrhea reported. PAST MEDICAL HISTORY: As per history of present illness. ALLERGIES: TO CIPRO, HYDRALAZINE AND VANCOMYCIN. SOCIAL HISTORY: Stopped smoking few years ago. Denies any alcohol use. FAMILY HISTORY: No significant cardiopulmonary disease reported. MEDICATIONS: She is on Aranesp 100 mcg IV weekly, clonidine tablet 0.1 mg three times a day, DuoNeb every 2 hour p.r.n., every 6 hours [id number], Keppra is 500 mg twice a day, Lipitor 20 mg at bedtime, morphine 2 mg every 4 hours p.r.n., Norvasc 10 mg daily. She is on Parsabiv 5 mg IV, Percocet 5/325 1 tablet twice a day, Plavix 75 mg daily, Procardia XL 30 mg daily, Renagel three times a day, Revatio 20 mg every 8 hours, Synthroid 75 mcg daily, Labetalol 200 mg every 8 hours, Zestril 40 mg daily. REVIEW OF SYSTEMS: No headache, no rhinitis, mild cough and shortness breath. Admit to have snoring, daytime sleepy and tired. No chest pain. No nausea. No vomiting. No diarrhea, dysuria, leg pain or leg swelling. PHYSICAL EXAMINATION: GENERAL: Sitting at the side of the bed, feeling short of breath. VITAL SIGNS: Temperature is 99, heart is 95, respiratory rate is 20, blood pressure 126/69, pulse ox 100%, 3 liters nasal cannula. HEENT: Moist mucous membrane. Crowded airway. Mallampati score is 4. NECK: Supple. No JVD. LUNGS: Has a fair airflow with prolonged expiratory phase. HEART: S1 and S2. ABDOMEN: Soft, nontender. No organomegaly. EXTREMITIES: There is not much edema. NEUROLOGICALLY: Awake, alert, follows simple commands. LABORATORY DATA: Shows hemoglobin 10.7, hematocrit 34.7, WBC 8.6, platelet count is 251. INR 1.09. PTT is 26. Sodium 139, potassium 8.6, chloride 96, bicarbonate is 25, BUN 109, creatinine 6.3, glucose is 120, calcium is 9.2. LDH 513. Creatinine kinase 38, phosphorus 7.8, magnesium 2.8. ProBNP is 35,000, AST 27, ALT 29, alk phos is 154, albumin is 4.4. IMPRESSION AND PLAN: Cardiomyopathy with cardiac diastolic dysfunction, pulmonary infiltrate, renal failure, dialysis dependent, coronary artery disease, chronic obstructive lung disease, peripheral vascular disease, right leg healing ulcers, may have a sleep apnea syndrome. I agree with the present management. Continue inhaled bronchodilator. Keep head at 45 degrees, hyperkalemia follow up as per Nephrology. Of course need dialysis outpatient. We will set her up for sleep study with CPAP. For now place her on BiPAP 8/5 with 35% oxygen while sleeping. Thank you very much. We will follow up with you. Pj Lazaro MD
[2018-02-09] MEDS: Pantoprazole 40 mg EC Tab PO SCH (10:00)
[2018-02-09] MEDS ORDERED: Levothyroxine 75 MCG TAB PO SCH (10:00)
[2018-02-09] MEDS: NIFEdipine 30 mg ER Tab PO SCH (10:02)
[2018-02-09] MEDS: Oxycodone/Acetaminophen 5/325 mg Tab PO SCH ×2 (10:02→18:26)
[2018-02-09 15:16] LABS: BASO # 0.02 K/mm3 (0.0-2.0); BASO % 0.4 % (0.0-3.0); EOS # 0.2 (0.0-0.7); EOS % 3.2 % (1.5-5.0); GRAN # 3.03 (1.4-6.5); GRAN % 56.4 % (50.0-68.0); HEMOGLOBIN 9.3 g/dL (12.0-16.0); LYMPH # 1.8 (1.2-3.4); LYMPH % 33.9 % (22.0-35.0); MEAN CELL VOLUME 94.2 fl (80.0-105.0); MEAN CORPUSCULAR HEMOGLOBIN 28.3 pg (25.0-35.0); MEAN PLATELET VOLUME 10.2 fl (7.0-11.0); MONO # 0.3 (0.1-0.6); MONO % 6.1 % (1.0-6.0); RBC 3.29 10^6/uL (3.5-6.1); RED CELL DISTRIBUTION WIDTH 15.8 % (11.5-14.5); WHITE BLOOD COUNT 5.4 10^3/ul (4.5-11.0)
--- NOTE | 2018-02-09 15:24 | PN ---
DATE: 02/09/2018 SUBJECTIVE: The patient is currently seen at the initiation of dialysis. The patient was admitted to the hospital yesterday with life-threatening hyperkalemia because she was inadvertently given Ensure at another hospital to use it as a supplement. The patient has a tendency to run high potassium levels on dialysis. MEDICATIONS Medication list reviewed. The patient is currently on clonidine, DuoNeb, Keppra, Lipitor, morphine, Norvasc, Percocet, Plavix, Procardia, Protonix, Renagel, Revatio, Synthroid, Trandate, and lisinopril. OBJECTIVE: INTAKE/OUTPUT: Intake 360, output is 0. VITAL SIGNS: Blood pressure is 115/59 presently, temperature 97.8, pulse of 83 with a respiratory rate of 20. HEENT: Shows her to be normocephalic, atraumatic. Conjunctivae are pink. Sclerae are nonicteric. NECK: Supple. No neck vein distention. CHEST: Clear to auscultation and percussion with no rales, rhonchi or wheezing. CARDIOVASCULAR: Shows regular rate and rhythm with MR/TR/AI. The patient has a right chest wall PermCath. ABDOMEN: Soft. Bowel sounds normal. No rebound, guarding or masses. EXTREMITIES: Show no lower extremity edema. Healed wound of her right lower extremity with a dressing in place. No cyanosis or clubbing. Diminished lower extremity pulses bilaterally. LABORATORY DATA AND IMAGING: Admitting chest x-ray showed no active pulmonary disease with minimal interstitial markings. CBC: White blood cell count 8.6, hemoglobin 10.7 with a platelet count of 251,000. Chemistries from yesterday showed a potassium of 8.6. The patient dialyzed on a 1.0 K bath. Today's predialysis labs are pending. BUN 109 with a creatinine of 6.3. Calcium level was 9.2. Phosphorus level was 7.8 with a magnesium level of 2.1. BNP was greater than 35,000. Troponin was 0.10. ASSESSMENT: 1. Status post severe life-threatening hyperkalemia. This is secondary to the patient having end-stage renal disease and tendency to always run borderline high potassium levels. The addition of an VIMAL inhibitor for blood pressure control with the most recent addition of Ensure, which is a supplement which contains a significant amount of potassium for dialysis patient. The patient cautioned never to use Ensure again. She will use Nepro as a supplement. 2. History of end-stage renal disease. Continue three times a week dialysis. 3. Hypertension. Blood pressure actually is low normal. 4. History of atherosclerotic heart disease status post percutaneous transluminal coronary angioplasty stents, history of myocardial infarction, history of congestive heart failure, history of left ventricular hypertrophy with valvular heart disease, all currently stable. 5. History of chronic obstructive pulmonary disease secondary to long history of cigarette smoking. 6. History of severe peripheral vascular disease secondary to cigarette smoking, status post a healed wound of her right lower extremity. 7. Hypothyroidism. The patient will continue thyroid replacement therapy. 8. History of mild glucose intolerance. PLAN: 1. Continue routine dialysis. 2. Discussed with the patient the need to limit the potassium intake in her diet as well as avoid any supplements that are potassium rich. 3. We will attempt to ultrafiltration 2 to 3 kg today with dialysis. Blood pressure permitting. 4. No apparent ongoing cardiac issues. 5. For her secondary hyperparathyroidism, we will continue the patient on binder therapy along with a renal diet. 6. For her pulmonary hypertension, continue present medical therapy. 7. Hypertension. The patient usually has elevated blood pressures. Present blood pressure levels have been okay with the extra dialysis treatment yesterday. Sampson Hutchins MD
[2018-02-09 15:46] LABS: ALB/GLOB RATIO 1.7 (1.1-1.8); ALBUMIN 3.7 g/dL (3.0-4.8); CALCIUM 8.2 mg/dL (8.4-10.5)
[2018-02-09 17:40] VITALS: RESP 18; TEMP 99
[2018-02-09 18:28] VITALS: BP 141/81; PULSE 93
--- NOTE | 2018-02-10 03:05 | PN ---
DATE: 02/09/2018 REFERRING PHYSICIAN: Brittany Coffman MD SUBJECTIVE: She is sitting on the side of the bed, family is at bedside. Night was unremarkable, tolerated BiPAP well. No headache, no rhinitis. Short of breath with exertion. No nausea, no vomiting, no diarrhea. No leg pain or leg swelling. OBJECTIVE: GENERAL: In no acute distress. VITAL SIGNS: Temperature is 98, heart rate is 50, respiratory rate is 18, blood pressure 128/76, pulse ox 97% on 3 liters nasal cannula. HEENT: Moist mucous membrane. Crowded airway. NECK: Supple. No JVD. LUNGS: Have a fair airflow with rhonchi. HEART: S1 and S2. ABDOMEN: Soft, nontender, no organomegaly. EXTREMITIES: Has some nonhealing ulcer on the right leg. NEUROLOGIC: Awake and alert. Follows simple commands. MEDICATIONS: Reviewed and noted. No new changes in medication reported since yesterday. LABORATORY DATA: Shows hemoglobin 9.3, hematocrit 31, WBC 5.4, platelet count is 271. Sodium 139, potassium 5.1, chloride 97, bicarbonate 28, BUN 76, creatinine 5.2, glucose 90, calcium is 8.2, phosphorus 8.3, AST 32, ALT 26, alk phos is 124. Albumin is 3.7. IMPRESSION AND PLAN: Cardiomyopathy with cardiac diastolic dysfunction, pulmonary hypertension, renal failure, dialysis dependent, coronary artery disease, history of chronic obstructive lung disease, peripheral vascular disease, right leg nonhealing ulcer, suspected sleep apnea syndrome. We will continue to encourage bilevel positive airway pressure use while in the hospital. Outpatient needs attended sleep study, pulmonary function tests, continue pulmonary vasodilator, bronchodilator. Nephrology followup. Thank you and we will follow with you. Pj Lazaro MD
--- NOTE | 2018-02-10 07:28 | DS ---
HISTORY OF PRESENT ILLNESS: The patient is a 57-year-old came in with chest pain and shortness of breath. Had hemodialysis done yesterday. Complaining of bilateral leg pain. Her francis wound has almost healed. Complaining of having numbness and tingling in both legs. PHYSICAL EXAMINATION: VITAL SIGNS: The patient is afebrile, pulse 83, respirations 20, blood pressure 115/59. LUNGS: Bilateral good airflow. No rhonchi or crackles. HEART: S1 and S2, audible. ABDOMEN: Soft and nontender. No rebound. No guarding. NEUROLOGICAL: She is awake, alert, oriented, communicative. LABORATORY DATA: Blood sugar is 146. Phosphorus 7.8. ASSESSMENT: 1. End-stage renal disease, on hemodialysis. 2. Status post hyperkalemia. 3. Gastritis. 4. Peripheral vascular disease. 5. Chronic obstructive pulmonary disease. 6. Pulmonary hypertension. PLAN: The patient states she feels better when she has BiPAP on, was evaluated by customer expert. The patient will follow up with customer expert to have the sleep study done and to see if she is a candidate for BiPAP. Brittany Coffman MD
== END 2018-02-09 19:41 | disposition home or self-care (01) ==
LOC: ED 05:52 → ERH 08:10 → 2RSO 16:15
PROVIDERS: ADMIT Internal Medicine; ATTEND Internal Medicine
DX: I13.2 Hypertensive heart and chronic kidney disease with heart failure and with stage 5 chronic kidney disease, or end stage renal disease (principal); N18.6 End stage renal disease; E87.5 Hyperkalemia; D63.1 Anemia in chronic kidney disease; I50.9 Heart failure, unspecified; E03.9 Hypothyroidism, unspecified; E78.5 Hyperlipidemia, unspecified; E83.39 Other disorders of phosphorus metabolism; H91.91 Unspecified hearing loss, right ear; I25.10 Atherosclerotic heart disease of native coronary artery without angina pectoris; I27.20 Pulmonary hypertension, unspecified; I42.9 Cardiomyopathy, unspecified; I73.9 Peripheral vascular disease, unspecified; N25.81 Secondary hyperparathyroidism of renal origin; K29.70 Gastritis, unspecified, without bleeding; J44.1 Chronic obstructive pulmonary disease with (acute) exacerbation; I25.2 Old myocardial infarction; K59.09 Other constipation; M54.9 Dorsalgia, unspecified; G89.29 Other chronic pain; G40.909 Epilepsy, unspecified, not intractable, without status epilepticus; Z99.2 Dependence on renal dialysis; Z86.73 Personal history of transient ischemic attack (TIA), and cerebral infarction without residual deficits; Z95.5 Presence of coronary angioplasty implant and graft; Z87.891 Personal history of nicotine dependence
CPT/HCPCS: 36415; 71045; 80053; 82550; 82948; 83615; 83735; 83880; 84100; 84484; 85025; 85027; 85610; 85730; 93005; 94640; 94660; 96374; 96375; 96376; 99285; G0378; J0610; J2270; J2405

== ENCOUNTER 2018-02-11 16:30 | Emergency (ER) | payer MEDICARE, OTHER ==
[2018-02-11 16:31] VITALS: BMI 22.0
[2018-02-11] MEDS ORDERED: Metoprolol 1 mg/ml Inj IVP STA (17:18)
[2018-02-11 17:36] VITALS: O2SAT 98
--- NOTE | 2018-02-11 17:47 | ED PDOC ---
Arrival/HPI - General Historian: Patient - History of Present Illness Time/Duration: Prior to Arrival Symptom Onset: Sudden Symptom Course: Unchanged Activities at Onset: Light Context: Other (Dialysis treatment) <Yoshi Alvarado - Last Filed: 02/11/18 18:05> <Booker Paredes - Last Filed: 02/11/18 19:57> - General Chief Complaint: Chest Pain Time Seen by Provider: 02/11/18 16:48 - History of Present Illness Narrative History of Present Illness (Text): 02/11/18 17:44 57 year old, whose past medical history includes diabetes, hypertension, and end stage renal disease on dialysis, who presents to the emergency department via EMS complaining of chest pain. Patient states she was at dialysis today when she began experiencing chest pain. Patient denies any fever, chills, shortness of breath, nausea, vomiting, diarrhea, back pain, neck pain, headache , dizziness, or any other complaints. (Yoshi Alvarado) Past Medical History - Provider Review Nursing Documentation Reviewed: Yes - Past History Past History: No Previous - Infectious Disease Hx of Infectious Diseases: None - Tetanus Immunization Tetanus Immunization: Unknown - Cardiac Hx Cardiac Disorders: Yes (mi x2 02/2017, pericardial window,cardiomyopathy) Hx Angina: Yes Hx Cardiac Arrhythmia: Yes Hx Congestive Heart Failure: Yes Hx Hypertension: Yes Hx Peripheral Edema: Yes (none today) Hx Peripheral Vascular Disease: Yes (pain/numbness when ambulating) Other/Comment: dvt, cold numb extremities, pad - Pulmonary Hx Respiratory Disorders: Yes Hx Asthma: Yes Hx Chronic Obstructive Pulmonary Disease (COPD): Yes Hx Emphysema: Yes Hx Pneumonia: Yes Hx Sleep Apnea: Yes Other/Comment: former smoker - Neurological Hx Neurological Disorder: Yes Hx Alzheimer's Disease: No Hx Dementia: No Hx Migraine: Yes Hx Parkinson's Disease: No Hx Seizures: Yes Hx Transient Ischemic Attacks (TIA): Yes Other/Comment: 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 and 1 stroke with seizure another day, c/o memory loss difficulty walking post tia's - HEENT Hx HEENT Disorder: Yes (hard of hearing,RIGHT EAR DEAF) Other/Comment: tinnitus, - Renal Date of Last Dialysis Treatment: 02/08/18 - Endocrine/Metabolic Hx Endocrine Disorders: Yes Hx Hypothyroidism: Yes - Hematological/Oncological Hx Blood Disorders: Yes Hx Anemia: Yes (blood transfusions) Hx Sickle Cell Disease: No - Integumentary Hx Dermatological Disorder: Yes (non healing sugical wound to right ankle) Other/Comment: multiple skin discolorations extremities, lg fatty tissue lump to left lower back,r great toe "ingrown toenail" redness swelling covered with bandaid pt did not want it touched, thick hard toenails both feet, right lower leg none healing surgical wound pt did not want dressing removed for assesment - Musculoskeletal/Rheumatological Hx Falls: Yes (past) - Gastrointestinal Hx Gastrointestinal Disorders: Yes (chronic nausea, constipation,vomiting) Hx Crohn's Disease: No Hx Diverticulitis: Yes Hx Gall Bladder Disease: No Hx Gastroesophageal Reflux: Yes Hx Pancreatitis: No Other/Comment: diverticulosis, poor appetite and weight loss, hiatal hernia x2 - Genitourinary/Gynecological Hx Sexually Transmitted Diseases: No - Psychiatric Hx Anxiety: Yes Hx Bipolar Disorder: No Hx Depression: No Hx Post Traumatic Stress Disorder: No Hx Schizophrenia: No Hx Substance Use: No - Past Surgical History Past Surgical History: Unable to Obtain - Surgical History Hx Appendectomy: Yes Hx Cardiac Catheterization: Yes Hx Cholecystectomy: No Hx Coronary Stent: Yes Other/Comment: r av shunt not working, rch dialysis cath used for hd, tonsillectomy, inguinal hernia repair, r leg stent 05/2017, "stent to head 04/2017 , double artrial bypass both legs due to poor circulation 04/2017, skin graft to non healing r ankle wound 2017, 2 cysts on thyroid, thoracentesis x2, r av fistula not working, rcw hd cath working - Anesthesia Hx Anesthesia Reactions: No Hx Malignant Hyperthermia: No - Suicidal Assessment Feels Threatened In Home Enviroment: No <Yoshi Alvarado - Last Filed: 02/11/18 18:05> Family/Social History - Physician Review Nursing Documentation Reviewed: Yes Family/Social History: Unknown Family HX Smoking Status: Former Smoker Hx Alcohol Use: No Hx Substance Use: No Hx Substance Use Treatment: No <Yoshi Alvarado - Last Filed: 02/11/18 18:05> Allergies/Home Meds <Yoshi Alvarado - Last Filed: 02/11/18 18:05> <Booker Paredes P - Last Filed: 02/11/18 19:57> Allergies/Adverse Reactions: Allergies ciprofloxacin Allergy (Verified 02/11/18 16:34) RASH hydralazine Allergy (Verified 02/11/18 16:34) RASH vomiting vancomycin Allergy (Verified 02/11/18 16:34) SHORTNESS OF BREATH palpitations ct dye Allergy (Uncoded 02/11/18 16:34) RASH Home Medications: Home Meds Medication Instructions Recorded Confirmed Lisinopril [Zestril] 40 mg PO DAILY 10/05/17 02/08/18 Sildenafil [Revatio] 20 mg PO Q8H 10/05/17 02/08/18 Clopidogrel [Plavix] 1 tab PO DAILY 11/18/17 02/08/18 NIFEdipine ER [Procardia XL] 30 tab PO DAILY 11/18/17 02/08/18 Prednisone [Deltasone] 20 mg PO BID 01/11/18 02/08/18 oxyCODONE/Acetaminophen [Percocet 1 tab PO BID 01/11/18 02/08/18 5/325 mg Tab] Labetalol [Trandate] 300 mg PO Q8H PRN 01/12/18 02/08/18 Levothyroxine [Synthroid] 75 mcg PO DAILY 01/12/18 02/08/18 Ondansetron ODT [Zofran ODT] 4 mg PO Q8H PRN 01/12/18 02/08/18 Pantoprazole [Protonix EC Tab] 40 mg PO DAILY 01/12/18 02/08/18 cloNIDine [Catapres] 0.1 mg PO TID 01/12/18 02/08/18 Review of Systems - Physician Review All systems were reviewed & negative as marked: Yes - Review of Systems Constitutional: Normal Eyes: Normal ENT: Normal Respiratory: Normal. absent: SOB, Cough Cardiovascular: Chest Pain Gastrointestinal: Normal. absent: Abdominal Pain, Diarrhea, Nausea, Vomiting Genitourinary Female: Normal. absent: Dysuria, Frequency, Hematuria, Urine Output Changes Musculoskeletal: Normal. absent: Back Pain, Neck Pain Skin: Normal. absent: Rash Neurological: Normal. absent: Headache, Dizziness Endocrine: Normal Hemo/Lymphatic: Normal Psychiatric: Normal <Yoshi Alvarado - Last Filed: 02/11/18 18:05> Physical Exam Vital Signs Reviewed: Yes Temperature: Afebrile Blood Pressure: Normal Pulse: Regular Respiratory Rate: Normal Appearance: Positive for: Well-Appearing, Non-Toxic, Comfortable Pain Distress: None Mental Status: Positive for: Alert and Oriented X 3 - Systems Exam Head: Present: Atraumatic, Normocephalic Pupils: Present: PERRL Extroacular Muscles: Present: EOMI Conjunctiva: Present: Normal Mouth: Present: Moist Mucous Membranes Neck: Present: Normal Range of Motion. No: Meningeal Signs, MIDLINE TENDERNESS Respiratory/Chest: Present: Clear to Auscultation, Good Air Exchange. No: Respiratory Distress, Accessory Muscle Use Cardiovascular: Present: Regular Rate and Rhythm, Normal S1, S2. No: Murmurs Abdomen: No: Tenderness, Distention, Peritoneal Signs Back: Present: Normal Inspection Upper Extremity: Present: Normal Inspection. No: Cyanosis, Edema Lower Extremity: Present: Normal Inspection. No: Edema Neurological: Present: GCS=15, CN II-XII Intact, Speech Normal Skin: Present: Warm, Dry, Normal Color. No: Rashes Psychiatric: Present: Alert, Oriented x 3, Normal Insight, Normal Concentration <Yoshi Alvarado - Last Filed: 02/11/18 18:05> Vital Signs Temp Pulse Resp BP Pulse Ox 02/11/18 18:49 89 135/96 H 02/11/18 17:36 98.2 F 88 18 132/60 98 Medical Decision Making <Ysohi Alvarado - Last Filed: 02/11/18 18:05> Re-evaluation Time: 19:49 Reassessment Condition: Re-examined, Improved - Lab Interpretations I have reviewed the lab results: Yes Interpretation: No sign. chg./baseline <Booker Paredes P - Last Filed: 02/11/18 19:57> ED Course and Treatment: 02/11/18 17:48 Impression: 57 year old female who presents to the emergency department complaining of chest pain. Differential Diagnosis: Atypical Chest Pain Plan: -- EKG -- Chest X-ray -- Labs -- Lopressor -- Aspirin -- NGL -- Reassess and disposition Progress Notes: 02/11/18 18:06 EKG reviewed, shows NSR at 82 bpm. Lft atrial enlargement. Left Ventricular Hypertrophy with repolarization abnormality. (Yoshi Alvarado) 02/11/18 18:22 Patient signed out to me by Dr. Alvarado. Pending labs. Dr. Alvarado read EKG as no changes from previous. CXR was NAD. Dr. Alvarado stated if labs are WNL, patient could be discharge home for atypical chest pain. 02/11/18 19:45 On revaluation, patient feels better. She sated symptoms has improved. EKG was read by Dr. Alvarado, no changes. CXR was NAD. Lungs CTA b/l, no wheezing, or rales Abdomen was non tender, non distended. Patient wishes to be discharge home. I page Dr. Coffman before discharging pat. Patient was recommended to see Dr. Coffman tomorrow morning. 02/11/18 19:[address] Coffman regarding patient history of CP after dialysis. I told Dr. Coffman that labs was wnl, and patient feels better. She agrees to d/ c patient home and to have patient call her office for revaluation. (Booker Paredes) - Lab Interpretations Lab Results: 02/11/18 18:52 02/11/18 18:52 Lab Results 02/11/18 18:52: Sodium 140, Potassium 4.0, Chloride 99, Carbon Dioxide 30, Anion Gap 16, BUN 34 H, Creatinine 2.8 H, Est GFR ( Amer) 21, Est GFR ( Non-Af Amer) 17, Random Glucose 116 H, Calcium 8.4, Total Bilirubin 0.2, AST 24 , ALT 26, Alkaline Phosphatase 147 H, Lactate Dehydrogenase 462, Total Creatine Kinase 42, Troponin I 0.09, Total Protein 5.8, Albumin 3.5, Globulin 2.3, Albumin/Globulin Ratio 1.6 02/11/18 18:52: PT 11.2, INR 0.98 02/11/18 18:52: WBC 5.1, RBC 3.14 L, Hgb 9.0 L, Hct 28.9 L, MCV 92.0, MCH 28.7, MCHC 31.1, RDW 15.5 H, Plt Count 211, MPV 9.9, Gran % 63.9, Lymph % (Auto) 25.8 , [place] % (Auto) 7.1 H, Eos % (Auto) 3.0, Baso % (Auto) 0.2, Gran # 3.25, Lymph # (Auto) 1.3, [place] # (Auto) 0.4, Eos # (Auto) 0.2, Baso # (Auto) 0.01 - RAD Interpretation Narrative RAD Interpretations (Text): 02/11/18 19:49 HISTORY: Chest Pain COMPARISON: 02/08/2018. FINDINGS: The right-sided dialysis catheters terminate in the right atrium. There is stable appearance of the right subclavian stent. LUNGS: The lungs are well inflated and clear. There is mild pulmonary venous congestion. Mild right basilar atelectasis. No focal consolidation. PLEURA: No significant pleural effusion identified, no pneumothorax apparent. CARDIOVASCULAR: Mild cardiomegaly. OSSEOUS STRUCTURES: No significant abnormalities. VISUALIZED UPPER ABDOMEN: Normal. OTHER FINDINGS: None. IMPRESSION: Mild cardiomegaly and pulmonary venous congestion. No acute findings. (Booker Paredes) Radiology Orders: 02/11/18 17:18 CHEST PORTABLE [RAD] Stat - Medication Orders Current Medication Orders: Discontinued Medications Aspirin (Aspirin Chewable) 324 mg PO STAT STA Stop: 02/11/18 17:19 Last Admin: 02/11/18 18:36 Dose: 324 mg Metoprolol Tartrate (Lopressor) 5 mg IVP STAT STA Stop: 02/11/18 17:19 Last Admin: 02/11/18 18:49 Dose: 5 mg IVP Administration Document 02/11/18 18:49 MS (Rec: 02/11/18 18:49 MS [id number]) Charges for Administration # of IVP Administrations 1 MAR Pulse and Blood Pressure Document 02/11/18 18:49 MS (Rec: 02/11/18 18:49 MS [id number]) Pulse Pulse Rate (60-90) 89 Blood Pressure Blood Pressure (100/60-150/90) 135/96 Nitroglycerin (Nitrostat Sl Tab) 0.4 mg SL STAT STA Stop: 02/11/18 17:19 Last Admin: 02/11/18 18:46 Dose: 0.4 mg - Scribe Statement The provider has reviewed the documentation as recorded by the Scribe <Yoshi Alvarado - Last Filed: 02/11/18 18:05> <Booker Paredes - Last Filed: 02/11/18 19:57> - Scribe Statement Jackie Mendez All medical record entries made by the Scribe were at my direction and personally dictated by me. I have reviewed the chart and agree that the record accurately reflects my personal performance of the history, physical exam, medical decision making, and the department course for this patient. I have also personally directed, reviewed, and agree with the discharge instructions and disposition. (Yoshi Alvarado) Disposition/Present on Arrival - Present on Arrival History of DVT/PE: No History of Uncontrolled Diabetes: No Urinary Catheter: No History of Decub. Ulcer: No History Surgical Site Infection Following: None <Yoshi Alvarado - Last Filed: 02/11/18 18:05> - Present on Arrival Any Indicators Present on Arrival: No History of DVT/PE: No History of Uncontrolled Diabetes: No Urinary Catheter: No History of Decub. Ulcer: No - Disposition Have Diagnosis and Disposition been Completed?: Yes Disposition Time: 19:50 Patient Plan: Discharge <Booker Paredes - Last Filed: 02/11/18 19:57> - Disposition Diagnosis: Atypical chest pain Disposition: HOME/ ROUTINE Condition: IMPROVED Discharge Instructions (ExitCare): Chest Pain That Is Not Caused by the Heart ( [place]) Additional Instructions: Call private doctor for follow up visit tomorrow. Continue with home medication as instructed by your doctor. return to emergency if symptoms worsen. Referrals: Brittany Coffman MD [Primary Care Provider] - Follow up with primary Forms: [employer] ([employer])
--- NOTE | 2018-02-11 18:13 | RAD ---
HISTORY: Chest Pain COMPARISON: 02/08/2018. FINDINGS: The right-sided dialysis catheters terminate in the right atrium. There is stable appearance of the right subclavian stent. LUNGS: The lungs are well inflated and clear. There is mild pulmonary venous congestion. Mild right basilar atelectasis. No focal consolidation. PLEURA: No significant pleural effusion identified, no pneumothorax apparent. CARDIOVASCULAR: Mild cardiomegaly. OSSEOUS STRUCTURES: No significant abnormalities. VISUALIZED UPPER ABDOMEN: Normal. OTHER FINDINGS: None. IMPRESSION: Mild cardiomegaly and pulmonary venous congestion. No acute findings.
[2018-02-11 19:01] LABS: BASO # 0.01 K/mm3 (0.0-2.0); BASO % 0.2 % (0.0-3.0); EOS # 0.2 (0.0-0.7); GRAN # 3.25 (1.4-6.5); GRAN % 63.9 % (50.0-68.0); LYMPH # 1.3 (1.2-3.4); LYMPH % 25.8 % (22.0-35.0); MEAN CORPUSCULAR HEMOGLOBIN 28.7 pg (25.0-35.0); MEAN CORPUSCULAR HGB CONC 31.1 g/dl (31.0-37.0); MEAN PLATELET VOLUME 9.9 fl (7.0-11.0); MONO # 0.4 (0.1-0.6); MONO % 7.1 % (1.0-6.0); RBC 3.14 10^6/uL (3.5-6.1); RED CELL DISTRIBUTION WIDTH 15.5 % (11.5-14.5); WHITE BLOOD COUNT 5.1 10^3/ul (4.5-11.0)
[2018-02-11 19:10] LABS: INR 0.98 (0.93-1.08); PROTHROMBIN TIME 11.2 SECONDS (9.4-12.5)
[2018-02-11 19:11] LABS: ALB/GLOB RATIO 1.6 (1.1-1.8); ALBUMIN 3.5 g/dL (3.0-4.8); CALCIUM 8.4 mg/dL (8.4-10.5)
[2018-02-11 19:20] LABS: TROPONIN I 0.09 ng/mL
[2018-02-11] MEDS ORDERED: Morphine 2 mg/ml ISec IVP STA (19:44)
[2018-02-11] MEDS ORDERED: Morphine 2 mg/2 mL syringe IVP STA (19:46)
[2018-02-11 22:14] VITALS: BP 121/74; PULSE 82; RESP 17; TEMP 98
== END 2018-02-11 20:20 | disposition home or self-care (01) ==
LOC: ED 16:30
DX: R07.89 Other chest pain (principal); I12.0 Hypertensive chronic kidney disease with stage 5 chronic kidney disease or end stage renal disease; N18.6 End stage renal disease; Z99.2 Dependence on renal dialysis; E11.9 Type 2 diabetes mellitus without complications; I50.9 Heart failure, unspecified; E03.9 Hypothyroidism, unspecified
CPT/HCPCS: 71045; 80053; 82550; 83615; 84484; 85025; 85610; 96374; 96375; 99283; J2270; J2405

== ENCOUNTER 2018-03-04 14:13 | Emergency (ER) | payer MEDICARE, OTHER ==
[2018-03-04 14:17] VITALS: BMI 21.6
--- NOTE | 2018-03-04 14:29 | ED PDOC ---
Arrival/HPI - General Historian: Patient - History of Present Illness Time/Duration: Prior to Arrival Symptom Onset: Sudden Symptom Course: Unchanged Quality: Stabbing Severity Level: 6 Activities at Onset: Other (at dialysis ) <Gen Allen - Last Filed: 03/04/18 16:18> - History of Present Illness Context: Other (while at dialysis) <Socrates Moura - Last Filed: 03/04/18 19:41> - General Chief Complaint: Chest Pain Time Seen by Provider: 03/04/18 14:16 - History of Present Illness Narrative History of Present Illness (Text): 57 year old female with past medical history of CKD on HD presents after rapid response was called in dialysis. Patient states she has sharp right sided chest pain associated with numbness and swelling of face after dialysis. Patient states this morning she woke up feeling her face and lips were numb and also states she fell but did not pass out or hit her head. She wanted to go to the emergency department however she felt she needed a dialysis session first. Denies shortness of breath, dizziness, fevers, chills, abdominal pain, nausea, vomiting, diarrhea, cough. 03/04/18 14:31 (Gen Allen) Past Medical History - Provider Review Nursing Documentation Reviewed: Yes - Past History Past History: No Previous - Infectious Disease Hx of Infectious Diseases: None - Tetanus Immunization Tetanus Immunization: Unknown - Cardiac Hx Cardiac Disorders: Yes (mi x2 02/2017, pericardial window,cardiomyopathy) Hx Angina: Yes Hx Cardiac Arrhythmia: Yes Hx Congestive Heart Failure: Yes Hx Hypertension: Yes Hx Peripheral Edema: Yes (none today) Hx Peripheral Vascular Disease: Yes (pain/numbness when ambulating) Other/Comment: dvt, cold numb extremities, pad - Pulmonary Hx Respiratory Disorders: Yes Hx Asthma: Yes Hx Chronic Obstructive Pulmonary Disease (COPD): Yes Hx Emphysema: Yes Hx Pneumonia: Yes Hx Sleep Apnea: Yes Other/Comment: former smoker - Neurological Hx Neurological Disorder: Yes Hx Alzheimer's Disease: No Hx Dementia: No Hx Migraine: Yes Hx Parkinson's Disease: No Hx Seizures: Yes Hx Transient Ischemic Attacks (TIA): Yes Other/Comment: 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 and 1 stroke with seizure another day, c/o memory loss difficulty walking post tia's - HEENT Hx HEENT Disorder: Yes (hard of hearing,RIGHT EAR DEAF) Other/Comment: tinnitus, - Renal Date of Last Dialysis Treatment: 02/08/18 - Endocrine/Metabolic Hx Endocrine Disorders: Yes Hx Hypothyroidism: Yes - Hematological/Oncological Hx Blood Disorders: Yes Hx Anemia: Yes (blood transfusions) Hx Sickle Cell Disease: No - Integumentary Hx Dermatological Disorder: Yes (non healing sugical wound to right ankle) Other/Comment: multiple skin discolorations extremities, lg fatty tissue lump to left lower back,r great toe "ingrown toenail" redness swelling covered with bandaid pt did not want it touched, thick hard toenails both feet, right lower leg none healing surgical wound pt did not want dressing removed for assesment - Musculoskeletal/Rheumatological Hx Falls: Yes (past) - Gastrointestinal Hx Gastrointestinal Disorders: Yes (chronic nausea, constipation,vomiting) Hx Crohn's Disease: No Hx Diverticulitis: Yes Hx Gall Bladder Disease: No Hx Gastroesophageal Reflux: Yes Hx Pancreatitis: No Other/Comment: diverticulosis, poor appetite and weight loss, hiatal hernia x2 - Genitourinary/Gynecological Hx Sexually Transmitted Diseases: No - Psychiatric Hx Anxiety: Yes Hx Bipolar Disorder: No Hx Depression: No Hx Post Traumatic Stress Disorder: No Hx Schizophrenia: No Hx Substance Use: No - Past Surgical History Past Surgical History: Unable to Obtain - Surgical History Hx Appendectomy: Yes Hx Cardiac Catheterization: Yes Hx Cholecystectomy: No Hx Coronary Stent: Yes Other/Comment: r av shunt not working, rch dialysis cath used for hd, tonsillectomy, inguinal hernia repair, r leg stent 05/2017, "stent to head 04/2017 , double artrial bypass both legs due to poor circulation 04/2017, skin graft to non healing r ankle wound 2017, 2 cysts on thyroid, thoracentesis x2, r av fistula not working, rcw hd cath working - Anesthesia Hx Anesthesia: Yes Hx Anesthesia Reactions: No Hx Malignant Hyperthermia: No - Suicidal Assessment Feels Threatened In Home Enviroment: No <Gen Allen - Last Filed: 03/04/18 16:18> - Travel History Have you recently traveled outside [place] w/in the past 3 mons?: No - Reproductive Menopause: Yes Currently : No <Socrates Moura - Last Filed: 03/04/18 19:41> Family/Social History - Physician Review Nursing Documentation Reviewed: Yes Family/Social History: No Known Family HX Smoking Status: Former Smoker Hx Alcohol Use: No Hx Substance Use: No Hx Substance Use Treatment: No <Gen Allen - Last Filed: 03/04/18 16:18> Allergies/Home Meds <Gen Allen - Last Filed: 03/04/18 16:18> <Socrates Moura - Last Filed: 03/04/18 19:41> Allergies/Adverse Reactions: Allergies ciprofloxacin Allergy (Verified 02/11/18 16:34) RASH hydralazine Allergy (Verified 02/11/18 16:34) RASH vomiting vancomycin Allergy (Verified 02/11/18 16:34) SHORTNESS OF BREATH palpitations ct dye Allergy (Uncoded 02/11/18 16:34) RASH Home Medications: Home Meds Medication Instructions Recorded Confirmed Lisinopril [Zestril] 40 mg PO DAILY 10/05/17 02/08/18 Sildenafil [Revatio] 20 mg PO Q8H 10/05/17 02/08/18 Clopidogrel [Plavix] 1 tab PO DAILY 11/18/17 02/08/18 NIFEdipine ER [Procardia XL] 30 tab PO DAILY 11/18/17 02/08/18 Prednisone [Deltasone] 20 mg PO BID 01/11/18 02/08/18 oxyCODONE/Acetaminophen [Percocet 1 tab PO BID 01/11/18 02/08/18 5/325 mg Tab] Labetalol [Trandate] 300 mg PO Q8H PRN 01/12/18 02/08/18 Levothyroxine [Synthroid] 75 mcg PO DAILY 01/12/18 02/08/18 Ondansetron ODT [Zofran ODT] 4 mg PO Q8H PRN 01/12/18 02/08/18 Pantoprazole [Protonix EC Tab] 40 mg PO DAILY 01/12/18 02/08/18 cloNIDine [Catapres] 0.1 mg PO TID 01/12/18 02/08/18 Review of Systems - Review of Systems Constitutional: Normal. absent: Weight Change, Fevers Eyes: Normal. absent: Vision Changes, Photophobia ENT: Normal Respiratory: Normal. absent: SOB, Cough, Wheezing Cardiovascular: Chest Pain. absent: Palpitations, Edema, Syncope Gastrointestinal: Normal. absent: Abdominal Pain, Nausea, Vomiting Genitourinary Female: Normal Musculoskeletal: Normal. absent: Arthralgias, Back Pain Skin: Normal. absent: Rash Neurological: Normal, Other (numbness and tingling on face and tongue). absent : Headache, Dizziness, Speech Changes, Facial Droop Endocrine: Normal Hemo/Lymphatic: Normal <Gen Allen Last Filed: 03/04/18 16:18> Physical Exam - Systems Exam Head: Present: Atraumatic, Normocephalic Pupils: Present: PERRL Extroacular Muscles: Present: EOMI Conjunctiva: Present: Normal Mouth: Present: Moist Mucous Membranes Neck: Present: Normal Range of Motion Respiratory/Chest: Present: Clear to Auscultation, Other (dialysis cather in right upper chest). No: Respiratory Distress, Accessory Muscle Use Cardiovascular: Present: Regular Rate and Rhythm, Normal S1, S2 Abdomen: No: Tenderness, Distention Upper Extremity: Present: NORMAL PULSES. No: Edema Lower Extremity: Present: NORMAL PULSES. No: Edema, Normal ROM Neurological: Present: GCS=15, CN II-XII Intact, Speech Normal, Normal Sensory Function, Other (right lower extremity weakness from previous CVA) Skin: Present: Warm Psychiatric: Present: Alert, Oriented x 3 <Gen Allen Last Filed: 03/04/18 16:18> Vital Signs Reviewed: Yes Temperature: Afebrile Blood Pressure: Hypertensive Pulse: Regular Respiratory Rate: Normal Appearance: Positive for: Well-Appearing, Non-Toxic, Uncomfortable. No: Comfortable, Ill-Appearing, Unkept Pain Distress: Mild Mental Status: Positive for: Alert and Oriented X 3 - Systems Exam Neck: Present: Trachea Midline. No: Meningeal Signs, MIDLINE TENDERNESS Back: Present: Normal Inspection. No: CVA Tenderness, Midline Tenderness Upper Extremity: Present: Normal Inspection Skin: No: Rashes <Socrates Moura - Last Filed: 03/04/18 19:41> Vital Signs Temp Pulse Resp BP Pulse Ox 03/04/18 18:28 84 192/81 H 03/04/18 18:27 194/81 H 03/04/18 18:26 81 192/84 H 03/04/18 16:40 99.9 F H 75 17 164/77 H 100 03/04/18 14:20 75 17 155/73 H 100 Medical Decision Making <TiffanyGen - Last Filed: 03/04/18 16:18> Re-evaluation Time: 18:00 Reassessment Condition: Improved - Critical Care Critical Care Minutes: 30 minutes Critical Care Time: Excluding Proc Time - Lab Interpretations I have reviewed the lab results: Yes Interpretation: Abnormal lab values (indeterminant TROP and elevated BUN/creat; decr K) - RAD Interpretation Music Executive: Radiologist - EKG Interpretation Interpreted by ED Physician: Yes Type: 12 lead EKG Comparison: Similar to previous EKG <Socrates Moura - Last Filed: 03/04/18 19:41> ED Course and Treatment: Plan -CBC, CMP, trops, CT head, EKG, Chest XRay -reasses 03/04/18 14:41 -Trop .06, which is near baseline and lisa to kidney function, Chest xray NAD, Ct head no acute process -Spoke to Dr. coffman she wants to admit for obs for chest pain 03/04/18 16:18 (Gen Allen) 03/04/18 15:00 Patient Seen With Resident: In agreement with resident note which contains more details about the patient. Patient was seen and evaluated with resident. Came up with plan and treatment together.. I performed the hx and physical exam of the patient and discussed their mgt with the RESIDENT. I reviewed the RESIDENT's NOTE and agree with the assessment and plan of care. CHEST: CTA b/l, no w/r/r, no tachypenia, no accessory muscle use noted chest wall: + right chest wall dialysis shilely noted cards: +S1, +S2, no m/r/r abd: WNL, thin patient, no fernández's sign, no mcburney's point tenderness ext: WNL, no pitting edema/swelling noted; neurovasc intact b/l 1730 pt is feeling some improvement pt is made aware of her medical results given pt's extensive medical complaints/hx of cardiac dz in the past as well as ESRD on dialysis, will contact Dr COFFMAN; awaiting final disposition 1800 Dr Coffman would like patient admitted/obs; pt is made aware and agrees with her recommendation however, due to hospital lack of Dialysis availability, pt is to be transferred to [facility] for continued workup Dr Coffman is made aware but expresses disagreement with the recommendation, but due to hospital policy, I/resident will contact [facility] for further eval/admission 1845 pt is made aware of the need to transfer pt to [facility] for further eval/ admission, pt expresses disagreement pt states she does not want to go to [facility] for her admission Pt would like to leave against med advice Leaving Against Medical Advice (AMA): The patient is choosing to leave against medical advice. I have personally explained to the patient that choosing to do so may result in permanent bodily harm or . I have discussed at great length that without further evaluation and monitoring there may be unforeseen circumstances and/or deterioration causing permanent bodily harm or as a result of their choice. The patient is alert, oriented, and shows the mental capacity to make clear decisions regarding the patients health care at this time. The patient continues to wish to leave against medical advice. In light of the patients decision to leave against medical advice, follow-up has been arranged and the patient is aware of the importance to following up as instructed. The patient has been advised that they should return to the emergency room immediately if they change their mind at any time, or if their condition begins to change or worsen in any way. pt is aware that potential life-threatening illness remains and pt can lose limb /or worse case, can pt is aware that she is to see Her doctor as soon as possible pt is aware that if she changes her mind, she is encouraged to return to ED immediately for further care/management pt expressed understanding Dr Coffman is made aware of pt's decision pt's 2nd trop remains in indeterminate range stable vital signs (Socrates Moura) - Critical Care Narrative Critical Care (Text): 03/04/18 19:22 critical care time: 30min, excluding procedure time, excluding time teaching residents/students/mid-level providers; including initial eval/diagnosis, diagnostic interpretation, re-eval, consultations, final disposition (Socrates Moura) - Lab Interpretations Lab Results: 03/04/18 15:35 03/04/18 15:35 Lab Results 03/04/18 15:35: Sodium 139, Potassium 3.3 L, Chloride 97 L, Carbon Dioxide 30, Anion Gap 15, BUN 19, Creatinine 3.0 H, Est GFR ( Amer) 19, Est GFR (Non- Af Amer) 16, Random Glucose 88, Calcium 8.3 L, Phosphorus 4.2, Magnesium 2.0, Total Bilirubin 0.6, AST 18, ALT 26, Alkaline Phosphatase 144 H, Lactate Dehydrogenase 495, Total Creatine Kinase 50, Troponin I 0.06 D, Total Protein 6.3, Albumin 4.0, Globulin 2.4, Albumin/Globulin Ratio 1.7 03/04/18 15:35: WBC 4.2 L, RBC 3.77, Hgb 10.5 L, Hct 34.0 L, MCV 90.2, MCH 27.9 , MCHC 30.9 L, RDW 15.5 H, Plt Count 240, MPV 10.0, Gran % 67.5, Lymph % (Auto) 19.0 L, [place] % (Auto) 10.0 H, Eos % (Auto) 3.3, Baso % (Auto) 0.2, Gran # 2.85, Lymph # (Auto) 0.8 L, [place] # (Auto) 0.4, Eos # (Auto) 0.1, Baso # (Auto) 0.01 - RAD Interpretation Narrative RAD Interpretations (Text): 03/04/18 19:23 PROCEDURE: CT HEAD WITHOUT CONTRAST. HISTORY: Fall COMPARISON: 11/30/2017 TECHNIQUE: Axial computed tomography images were obtained through the head/brain without intravenous contrast. Radiation dose: Total exam DLP = 804.30 mGy-cm. This CT exam was performed using one or more of the following dose reduction techniques: Automated exposure control, adjustment of the mA and/or kV according to patient size, and/or use of iterative reconstruction technique. FINDINGS: HEMORRHAGE: No intracranial hemorrhage. BRAIN: No mass effect or edema. Mild diffuse atrophy. Moderate periventricular white matter lucency with patchy and confluent deep and subcortical white matter lucency consistent with chronic microvascular ischemic change. Old left cerebellar hemispheric infarct. No evidence of acute infarct. VENTRICLES: Unremarkable. No hydrocephalus. CALVARIUM: Unremarkable. PARANASAL SINUSES: Unremarkable as visualized. No significant inflammatory changes. MASTOID AIR CELLS: Unremarkable as visualized. No inflammatory changes. OTHER FINDINGS: None. IMPRESSION: No acute intracranial hemorrhage. Chronic white matter ischemic change and mild atrophy. HISTORY: chest pain COMPARISON: 02/11/2018 FINDINGS: LUNGS: Bilateral apical linear parenchymal/pleural scar, unchanged. . PLEURA: No significant pleural effusion identified, no pneumothorax apparent. CARDIOVASCULAR: Tunneled right central venous dialysis catheter. Right central venous infusion port. Right subclavian/ axillary/ brachials vascular stent. OSSEOUS STRUCTURES: No significant abnormalities. VISUALIZED UPPER ABDOMEN: Normal. OTHER FINDINGS: None. IMPRESSION: No active disease. (Socrates Moura) Radiology Orders: 03/04/18 14:26 CHEST PORTABLE [RAD] Stat 03/04/18 14:27 HEAD W/O CONTRAST [CT] Stat - EKG Interpretation EKG Interpretation (Text): 03/04/18 19:24 NSR at 70 bpm, LAD, no ectopy, voltage criteria LVH, inverted T in leads I/II/L , V4-6, non-specific st changes, ABNL; no gross changes compare with old ekg 2017 (Socrates Moura) - Medication Orders Current Medication Orders: Albuterol Sulfate (Albuterol 0.5% Inhal Michelle (2.5 Mg/0.5 Ml) Ud) 2.5 mg IH [id number] [facility] Amlodipine Besylate (Norvasc) 10 mg PO DAILY [facility] Last Admin: 03/04/18 18:27 Dose: 10 mg MAR Blood Pressure Document 03/04/18 18:27 TITUS (Rec: 03/04/18 18:28 [facility] [id number]) Blood Pressure Blood Pressure (100/60-150/90) 194/81 Atorvastatin Calcium (Lipitor) 20 mg PO [facility] Carvedilol (Coreg) 12.5 mg PO BID [facility] Last Admin: 03/04/18 18:26 Dose: 12.5 mg MAR Pulse and Blood Pressure Document 03/04/18 18:26 TITUS (Rec: 03/04/18 18:27 [facility] [id number]) Pulse Pulse Rate (60-90) 81 Blood Pressure Blood Pressure (100/60-150/90) 192/84 Clonidine HCl (Catapres) 0.1 mg PO TID [facility] Last Admin: 03/04/18 18:28 Dose: 0.1 mg MAR Pulse and Blood Pressure Document 03/04/18 18:28 TITUS (Rec: 03/04/18 18:28 [id number]) Pulse Pulse Rate (60-90) 84 Blood Pressure Blood Pressure (100/60-150/90) 192/81 Clopidogrel Bisulfate (Plavix) 75 mg PO DAILY [facility] Last Admin: 03/04/18 18:29 Dose: 75 mg Labetalol HCl (Trandate) 300 mg PO Q8H PRN PRN Reason: HTN Levetiracetam (Keppra) 500 mg PO BID [facility] Last Admin: 03/04/18 18:28 Dose: 500 mg Nifedipine (Procardia Xl) 30 mg PO DAILY [facility] Pantoprazole Sodium (Protonix Ec Tab) 40 mg PO DAILY [facility] Sildenafil Citrate (Revatio) 20 mg PO Q8H [facility] Last Admin: 03/04/18 18:27 Dose: 20 mg Discontinued Medications Aspirin (Aspirin) 325 mg PO STAT STA Stop: 03/04/18 16:35 Last Admin: 03/04/18 16:44 Dose: 325 mg Metoclopramide HCl (Reglan) 5 mg IVP STAT STA Stop: 03/04/18 16:24 Last Admin: 03/04/18 16:33 Dose: 5 mg IVP Administration Document 03/04/18 16:33 TITUS (Rec: 03/04/18 16:33 [facility] [id number]) Charges for Administration # of IVP Administrations 1 Morphine Sulfate (Morphine) 4 mg IVP STAT STA Stop: 03/04/18 16:35 Last Admin: 03/04/18 16:45 Dose: 4 mg MAR Pain Assessment Document 03/04/18 16:45 TITUS (Rec: 03/04/18 16:46 TITUS [facility] [id number]) Pain Reassessment Is this a pain reassessment? Yes Sleep Is patient sleeping during reassessment? No Presence of Pain Presence of Pain Yes Pain Scale Used Pain Scale Used Numeric Location Pain Location Body [employer] Chest Leg Description Description Constant Intensity of Pain at present 8 IVP Administration Document 03/04/18 16:45 TITUS (Rec: 03/04/18 16:46 [facility] [id number]) Charges for Administration # of IVP Administrations 1 Disposition/Present on Arrival - Present on Arrival Any Indicators Present on Arrival: No History of DVT/PE: No History of Uncontrolled Diabetes: No Urinary Catheter: No History of Decub. Ulcer: No History Surgical Site Infection Following: None - Disposition Have Diagnosis and Disposition been Completed?: Yes Disposition Time: 16:19 <Gen Allen - Last Filed: 03/04/18 16:18> <Socrates Moura - Last Filed: 03/04/18 19:41> - Disposition Diagnosis: Chest pain, ESRD (end stage renal disease) on dialysis, Hypertension Disposition: AGAINST MEDICAL ADVICE Patient Problems: Current Active Problems Problem Status Onset Chest pain Acute ESRD (end stage renal disease) on dialysis Acute Hypertension Acute Condition: FAIR
--- NOTE | 2018-03-04 14:49 | RAD ---
HISTORY: chest pain COMPARISON: 02/11/2018 FINDINGS: LUNGS: Bilateral apical linear parenchymal/pleural scar, unchanged. . PLEURA: No significant pleural effusion identified, no pneumothorax apparent. CARDIOVASCULAR: Tunneled right central venous dialysis catheter. Right central venous infusion port. Right subclavian/ axillary/ brachials vascular stent. OSSEOUS STRUCTURES: No significant abnormalities. VISUALIZED UPPER ABDOMEN: Normal. OTHER FINDINGS: None. IMPRESSION: No active disease.
--- NOTE | 2018-03-04 15:26 | CT ---
PROCEDURE: CT HEAD WITHOUT CONTRAST. HISTORY: Fall COMPARISON: 11/30/2017 TECHNIQUE: Axial computed tomography images were obtained through the head/brain without intravenous contrast. Radiation dose: Total exam DLP = 804.30 mGy-cm. This CT exam was performed using one or more of the following dose reduction techniques: Automated exposure control, adjustment of the mA and/or kV according to patient size, and/or use of iterative reconstruction technique. FINDINGS: HEMORRHAGE: No intracranial hemorrhage. BRAIN: No mass effect or edema. Mild diffuse atrophy. Moderate periventricular white matter lucency with patchy and confluent deep and subcortical white matter lucency consistent with chronic microvascular ischemic change. Old left cerebellar hemispheric infarct. No evidence of acute infarct. VENTRICLES: Unremarkable. No hydrocephalus. CALVARIUM: Unremarkable. PARANASAL SINUSES: Unremarkable as visualized. No significant inflammatory changes. MASTOID AIR CELLS: Unremarkable as visualized. No inflammatory changes. OTHER FINDINGS: None. IMPRESSION: No acute intracranial hemorrhage. Chronic white matter ischemic change and mild atrophy.
[2018-03-04 15:40] LABS: BASO # 0.01 K/mm3 (0.0-2.0); BASO % 0.2 % (0.0-3.0); EOS # 0.1 (0.0-0.7); EOS % 3.3 % (1.5-5.0); GRAN # 2.85 (1.4-6.5); GRAN % 67.5 % (50.0-68.0); HEMOGLOBIN 10.5 g/dL (12.0-16.0); LYMPH # 0.8 (1.2-3.4); MEAN CELL VOLUME 90.2 fl (80.0-105.0); MEAN CORPUSCULAR HEMOGLOBIN 27.9 pg (25.0-35.0); MEAN CORPUSCULAR HGB CONC 30.9 g/dl (31.0-37.0); MONO # 0.4 (0.1-0.6); RBC 3.77 10^6/uL (3.5-6.1); RED CELL DISTRIBUTION WIDTH 15.5 % (11.5-14.5); WHITE BLOOD COUNT 4.2 10^3/ul (4.5-11.0)
[2018-03-04 15:58] LABS: CALCIUM 8.3 mg/dL (8.4-10.5)
[2018-03-04 15:59] LABS: ALB/GLOB RATIO 1.7 (1.1-1.8)
[2018-03-04 16:03] LABS: TROPONIN I 0.06 ng/mL
[2018-03-04] MEDS ORDERED: Morphine 4 mg/ml ISec IVP STA (16:34)
[2018-03-04 16:41] VITALS: TEMP 99.9; O2SAT 100
[2018-03-04] MEDS ORDERED: Sildenafil 20 MG TAB PO SCH (17:30)
[2018-03-04 19:58] VITALS: BP 146/82; PULSE 86; RESP 16
[2018-03-04] MEDS ORDERED: Albuterol 0.5% Inhal Sol (2.5 mg/0.5 ml) UD IH SCH (20:00)
--- NOTE | 2018-03-04 22:03 | CARD ---
APPROVED REPORT EKG Measurement Heart [id number] <Conclusion> Normal sinus rhythm Possible Left atrial enlargement Left ventricular hypertrophy with repolarization abnormality Prolonged QT Abnormal ECG
--- NOTE | 2018-03-05 04:37 | HP ---
HISTO OF PRESENT ILLNESS: Patient is 57-year-old known to me from multiple previous admissions. Was in hemodialysis earlier this morning. Started to have chest pain. So, she was referred . Patient was brought to the emergency room. Patient complained of feeling nauseous. Complained of generalized weakness. Has bilateral leg pain. Complained of chest pressure. Complained of heartburn. Denies any fever or chills. No cough or congestion. PAST MEDICAL HISTORY: Significant for multiple admission for chest pain, history of angioplasty a year and half ago in [facility], end-stage renal disease on hemodialysis, peptic ulcer disease, severe bilateral peripheral vascular disease status post bypass surgery, status post right carotid angioplasty, chronic anemia, pulmonary hypertension, history of COPD, chronic constipation, chronic low back pain. ALLERGIES: CIPRO, HYDRALAZINE, AND VANCOMYCIN. SOCIAL HISTORY: She lives with her son. Denies smoking, drinking, or alcohol use. She does smoke here and there, although she used to be a heavy smoker in the past. MEDICATIONS AT HOME: She is on Percocet, she is on Dilaudid 2 mg every 6, Keppra 500 twice a day, Catapres 0.1 mg three times a day, amlodipine 10 mg daily, Revatio 10 mg twice a day, prednisone 20 mg daily, but it was discontinued last week, Protonix 40 daily, nifedipine, lisinopril, levothyroxine, and labetalol. PHYSICAL EXAMINATION: GENERAL: She is awake, alert, oriented, communicative. VITAL SIGNS: She has temperature of 99.9, pulse 75, respiration 17, blood pressure 164/77. LUNGS: Bilateral diffusely decreased breath sounds. HEART: S1 and S2 audible. ABDOMEN: Soft, nontender. No rebound. No guarding. NEUROLOGICAL: She is awake, alert, oriented, communicative. EXTREMITIES: Bilateral leg, no edema. LABORATORY EXAMINATION: WBC is 4.2, hemoglobin 10.5, hematocrit 34, platelet is 240. Chemistries: Sodium 139, potassium 3.3, chloride 97, CO2 of 30, BUN 19, creatinine 3. Blood sugar of 88. ASSESSMENT: 1. Chest pain, rule out underlying coronary ischemia. 2. End-stage renal disease, on hemodialysis. 3. Hypertension. 4. Hyperlipidemia. 5. Severe peripheral vascular disease. 6. History of chronic obstructive pulmonary disease. 7. Pulmonary hypertension. 8. Seizure disorder. PLAN: We will resume her usual medication including Plavix, atorvastatin, Keppra, carvedilol, Catapres, sildenafil 20 mg every 8, levothyroxine 75 mcg daily. Continue her on labetalol. I will request Dr. Ontiveros for Cardiology consult, Dr. Smith for Nephro, and Dr. Lucio Thomas to evaluate for peripheral vascular disease since she is complaining of intractable bilateral leg pain. Brittany Coffman MD [facility] # [id number]
[2018-03-05] MEDS ORDERED: Pantoprazole 40 mg EC Tab PO SCH (10:00)
[2018-03-05] MEDS ORDERED: NIFEdipine 30 mg ER Tab PO SCH (10:00)
== END 2018-03-04 19:56 | disposition left against medical advice (07) ==
LOC: ED 14:13 → UNDOADMOB 16:48 → ERH 16:48
DX: I12.0 Hypertensive chronic kidney disease with stage 5 chronic kidney disease or end stage renal disease (principal); N18.6 End stage renal disease; Z99.2 Dependence on renal dialysis; R07.9 Chest pain, unspecified; Z86.73 Personal history of transient ischemic attack (TIA), and cerebral infarction without residual deficits; Z87.891 Personal history of nicotine dependence
CPT/HCPCS: 70450; 71045; 80053; 82550; 83615; 83735; 84100; 84484; 85025; 93005; 96374; 96375; 99285; J2270; J2765

== ENCOUNTER 2018-03-15 07:06 | Emergency (ER) | payer MEDICARE, OTHER ==
[2018-03-15 07:07] VITALS: BMI 21.6
[2018-03-15] MEDS ORDERED: NIFEdipine 30 mg ER Tab PO STA (08:01)
[2018-03-15] MEDS ORDERED: Sildenafil 20 MG TAB PO STA (08:01)
[2018-03-15 08:16] LABS: BASO # 0.03 K/mm3 (0.0-2.0); BASO % 0.5 % (0.0-3.0); EOS # 0.1 (0.0-0.7); EOS % 2.3 % (1.5-5.0); GRAN # 3.54 (1.4-6.5); GRAN % 62.9 % (50.0-68.0); HEMOGLOBIN 10.5 g/dL (12.0-16.0); LYMPH # 1.4 (1.2-3.4); LYMPH % 25.6 % (22.0-35.0); MEAN CELL VOLUME 91.9 fl (80.0-105.0); MEAN CORPUSCULAR HEMOGLOBIN 27.5 pg (25.0-35.0); MEAN CORPUSCULAR HGB CONC 29.9 g/dl (31.0-37.0); MEAN PLATELET VOLUME 10.4 fl (7.0-11.0); MONO # 0.5 (0.1-0.6); MONO % 8.7 % (1.0-6.0); RBC 3.82 10^6/uL (3.5-6.1); RED CELL DISTRIBUTION WIDTH 16.3 % (11.5-14.5); WHITE BLOOD COUNT 5.6 10^3/ul (4.5-11.0)
[2018-03-15 08:18] LABS: INR 1.05 (0.93-1.08); PROTHROMBIN TIME 12.1 SECONDS (9.4-12.5)
--- NOTE | 2018-03-15 08:24 | ED PDOC ---
Arrival/HPI - General Chief Complaint: Shortness Of Breath Time Seen by Provider: 03/15/18 07:32 Historian: Patient - History of Present Illness Narrative History of Present Illness (Text): 03/15/18 08:18 A 57 year old female, whose past medical history includes diabetes, pulmonary hypertension, hyperlipidemia, asthma, emphysema, COPD, CHF, DVT, CAD, CVA, seizure, ESRD on hemodialysis on /Thu (last full treatment 2 days ago), GERD , gastritis, diverticulitis, anemia, hypothyroidism, arthritis, and anxiety, presents to the emergency department complaining of shortness of breath since this morning. Patient "feels not enough fluid is being taking off with each dialysis treatment. She reports only taking 2 of her blood pressure medications today. Patient denies any fever, chills, nausea, vomiting, abdominal pain, chest pain or any other complaints. PMD: Dr. Coffman Time/Duration: Other (this morning) Symptom Course: Unchanged Context: Home Past Medical History - Provider Review Nursing Documentation Reviewed: Yes - Past History Past History: No Previous - Infectious Disease Hx of Infectious Diseases: None - Tetanus Immunization Tetanus Immunization: Unknown - Reproductive Menopause: Yes - Cardiac Hx Cardiac Disorders: Yes (mi x2 02/2017, pericardial window,cardiomyopathy) Hx Angina: Yes Hx Cardiac Arrhythmia: Yes Hx Congestive Heart Failure: Yes Hx Hypertension: Yes Hx Peripheral Edema: Yes (none today) Hx Peripheral Vascular Disease: Yes (pain/numbness when ambulating) Other/Comment: dvt, cold numb extremities, pad - Pulmonary Hx Respiratory Disorders: Yes Hx Asthma: Yes Hx Chronic Obstructive Pulmonary Disease (COPD): Yes Hx Emphysema: Yes Hx Pneumonia: Yes Hx Sleep Apnea: Yes Other/Comment: former smoker - Neurological Hx Neurological Disorder: Yes Hx Alzheimer's Disease: No Hx Dementia: No Hx Migraine: Yes Hx Parkinson's Disease: No Hx Seizures: Yes Hx Transient Ischemic Attacks (TIA): Yes Other/Comment: 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 and 1 stroke with seizure another day, c/o memory loss difficulty walking post tia's - HEENT Hx HEENT Disorder: Yes (hard of hearing,RIGHT EAR DEAF) Other/Comment: tinnitus, - Renal Date of Last Dialysis Treatment: 02/08/18 - Endocrine/Metabolic Hx Endocrine Disorders: Yes Hx Hypothyroidism: Yes - Hematological/Oncological Hx Blood Disorders: Yes Hx Anemia: Yes (blood transfusions) Hx Sickle Cell Disease: No - Integumentary Hx Dermatological Disorder: Yes (non healing sugical wound to right ankle) Other/Comment: multiple skin discolorations extremities, lg fatty tissue lump to left lower back,r great toe "ingrown toenail" redness swelling covered with bandaid pt did not want it touched, thick hard toenails both feet, right lower leg none healing surgical wound pt did not want dressing removed for assesment - Musculoskeletal/Rheumatological Hx Falls: Yes (past) - Gastrointestinal Hx Gastrointestinal Disorders: Yes (chronic nausea, constipation,vomiting) Hx Crohn's Disease: No Hx Diverticulitis: Yes Hx Gall Bladder Disease: No Hx Gastroesophageal Reflux: Yes Hx Pancreatitis: No Other/Comment: diverticulosis, poor appetite and weight loss, hiatal hernia x2 - Genitourinary/Gynecological Hx Sexually Transmitted Diseases: No - Psychiatric Hx Anxiety: Yes Hx Bipolar Disorder: No Hx Depression: No Hx Post Traumatic Stress Disorder: No Hx Schizophrenia: No Hx Substance Use: No - Past Surgical History Past Surgical History: Unable to Obtain - Surgical History Hx Appendectomy: Yes Hx Cardiac Catheterization: Yes Hx Cholecystectomy: No Hx Coronary Stent: Yes Other/Comment: r av shunt not working, rch dialysis cath used for hd, tonsillectomy, inguinal hernia repair, r leg stent 05/2017, "stent to head 04/2017 , double artrial bypass both legs due to poor circulation 04/2017, skin graft to non healing r ankle wound 2017, 2 cysts on thyroid, thoracentesis x2, r av fistula not working, rcw hd cath working - Anesthesia Hx Anesthesia: Yes Hx Anesthesia Reactions: No Hx Malignant Hyperthermia: No - Suicidal Assessment Feels Threatened In Home Enviroment: No Family/Social History - Physician Review Nursing Documentation Reviewed: Yes Family/Social History: No Known Family HX Smoking Status: Former Smoker Hx Alcohol Use: No Hx Substance Use: No Hx Substance Use Treatment: No Allergies/Home Meds Allergies/Adverse Reactions: Allergies ciprofloxacin Allergy (Verified 03/15/18 07:15) RASH hydralazine Allergy (Verified 03/15/18 07:15) RASH vomiting vancomycin Allergy (Verified 03/15/18 07:15) SHORTNESS OF BREATH palpitations ct dye Allergy (Uncoded 03/15/18 07:15) RASH Home Medications: Home Meds Medication Instructions Recorded Confirmed Lisinopril [Zestril] 40 mg PO DAILY 10/05/17 03/15/18 Sildenafil [Revatio] 20 mg PO Q8H 10/05/17 03/15/18 Clopidogrel [Plavix] 1 tab PO DAILY 11/18/17 03/15/18 NIFEdipine ER [Procardia XL] 30 tab PO DAILY 11/18/17 03/15/18 Labetalol [Trandate] 300 mg PO Q8H PRN 01/12/18 03/15/18 Levothyroxine [Synthroid] 75 mcg PO DAILY 01/12/18 03/15/18 Ondansetron ODT [Zofran ODT] 4 mg PO Q8H PRN 01/12/18 03/15/18 Pantoprazole [Protonix EC Tab] 40 mg PO DAILY 01/12/18 03/15/18 cloNIDine [Catapres] 0.1 mg PO TID 01/12/18 03/15/18 Review of Systems - Physician Review All systems were reviewed & negative as marked: Yes - Review of Systems Constitutional: absent: Fevers, Night Sweats Respiratory: SOB Cardiovascular: absent: Chest Pain Gastrointestinal: absent: Abdominal Pain, Nausea, Vomiting Physical Exam Vital Signs Reviewed: Yes Vital Signs Temp Pulse Resp BP Pulse Ox 03/15/18 11:14 88 18 109/102 H 95 03/15/18 11:01 94 H 18 199/102 H 96 03/15/18 10:00 97.8 F 03/15/18 09:50 164/106 H 03/15/18 08:50 103 H 22 175/92 H 95 03/15/18 08:20 96 H 237/110 H 03/15/18 08:12 96 H 237/110 H 03/15/18 07:10 20 94 L 03/15/18 07:07 98.5 F 94 H 20 231/112 H 91 L Temperature: Afebrile Blood Pressure: Hypertensive Pulse: Tachycardic Respiratory Rate: Normal Appearance: Positive for: Well-Appearing, Non-Toxic, Comfortable Pain Distress: None Mental Status: Positive for: Alert and Oriented X 3 - Systems Exam Head: Present: Atraumatic, Normocephalic Pupils: Present: PERRL Extroacular Muscles: Present: EOMI Conjunctiva: Present: Normal Mouth: Present: Moist Mucous Membranes Neck: Present: Normal Range of Motion Respiratory/Chest: Present: Good Air Exchange, Rales (at bilateral bases), Other (port in right subclavian ). No: Respiratory Distress, Accessory Muscle Use Cardiovascular: Present: Regular Rate and Rhythm, Normal S1, S2. No: Murmurs Abdomen: Present: Normal Bowel Sounds. No: Tenderness, Distention, Peritoneal Signs Back: Present: Normal Inspection Upper Extremity: Present: Normal Inspection. No: Cyanosis, Edema Lower Extremity: Present: Normal Inspection. No: Edema Neurological: Present: GCS=15, CN II-XII Intact, Speech Normal Skin: Present: Warm, Dry, Normal Color. No: Rashes Psychiatric: Present: Alert, Oriented x 3, Normal Insight, Normal Concentration Medical Decision Making ED Course and Treatment: 03/15/18 08:18 Impression: A 57 year old female with shortness of breath Plan: -- Chest xray -- EKG -- Labs -- Urinalysis -- Lisinopril, Nifedipine, Zofran and Sildenafil -- Reassess and disposition Progress Notes: 03/15/18 09:[address] Coffman EKG shows NSR at 89 BPM with LVH, strained pattern. Interpreted by me. Report Date : 03/15/2018 10:13:52 Procedure: Chest xray Dictator : Lux Delgadillo MD IMPRESSION: Mild pulmonary venous congestive changes. . There is a localized area of rounded opacity in the left lung base that may represent round pneumonia or atelectasis. Suspect small bilateral effusions left larger than right. Case discussed with patients disaster recovery specialist Dr. Smith, who states to discharge patient from the emergency room to outpatient dialysis. On re-evaluation, patient feels mild improvement after medication. I have discussed the results and plan with the patient, who expresses understanding. Patient in agreement with plan. - Lab Interpretations Lab Results: 03/15/18 07:40 03/15/18 07:40 Lab Results 03/15/18 09:20: Urine Color Yellow, Urine Appearance Clear, Urine pH 8.5, Ur Specific Chana 1.015, Urine Protein 100 H, Urine Glucose (UA) Negative, Urine Ketones Negative, Urine Blood Small H, Urine Nitrate Negative, Urine Bilirubin Negative, Urine Urobilinogen 0.2, Ur Leukocyte Esterase Moderate H, Urine RBC 5 - 10, Urine WBC 20 - 25, Ur Epithelial Cells 6 - 8, Amorphous Sediment Few, Urine Bacteria Many 03/15/18 07:40: Sodium 142, Potassium 5.6 H* D, Chloride 96 L, Carbon Dioxide 31 , Anion Gap 21 H, BUN 50 H, Creatinine 6.4 H, Est GFR ( Amer) 8, Est GFR (Non-Af Amer) 7, Random Glucose 86, Calcium 8.5, Magnesium 2.1, Total Bilirubin 0.5, AST 31, ALT 36, Alkaline Phosphatase 143 H, Lactate Dehydrogenase 475, Total Creatine Kinase 147, Troponin I 0.06, NT-Pro-B Natriuret Pep [id number] H, Total Protein 6.3, Albumin 3.9, Globulin 2.4, Albumin/Globulin Ratio 1.6 03/15/18 07:40: PT 12.1, INR 1.05, APTT 28.0 03/15/18 07:40: WBC 5.6 D, RBC 3.82, Hgb 10.5 L, Hct 35.1 L, MCV 91.9, MCH 27.5 , MCHC 29.9 L, RDW 16.3 H, Plt Count 274, MPV 10.4, Gran % 62.9, Lymph % (Auto) 25.6, [place] % (Auto) 8.7 H, Eos % (Auto) 2.3, Baso % (Auto) 0.5, Gran # 3.54, Lymph # (Auto) 1.4, [place] # (Auto) 0.5, Eos # (Auto) 0.1, Baso # (Auto) 0.03 I have reviewed the lab results: Yes - RAD Interpretation Radiology Orders: 03/15/18 07:44 CHEST PORTABLE [RAD] Stat - Medication Orders Current Medication Orders: Discontinued Medications Furosemide (Lasix) 40 mg IVP STAT STA Stop: 03/15/18 09:43 Last Admin: 03/15/18 09:50 Dose: 40 mg MAR Blood Pressure Document 03/15/18 09:50 EWO (Rec: 03/15/18 09:50 [facility] [id number]) Blood Pressure Blood Pressure (100/60-150/90) 164/106 IVP Administration Document 03/15/18 09:50 EW (Rec: 03/15/18 09:50 [facility] [id number]) Charges for Administration # of IVP Administrations 1 Lisinopril (Zestril) 40 mg PO STAT STA Stop: 03/15/18 07:54 Last Admin: 03/15/18 08:12 Dose: 40 mg MAR Pulse and Blood Pressure Document 03/15/18 08:12 EWO (Rec: 03/15/18 08:12 EW [id number]) Pulse Pulse Rate (60-90) 96 Blood Pressure Blood Pressure (100/60-150/90) 237/110 Morphine Sulfate (Morphine) 4 mg IVP STAT STA Stop: 03/15/18 09:43 Last Admin: 03/15/18 09:50 Dose: 4 mg MAR Pain Assessment Document 03/15/18 09:50 EWO (Rec: 03/15/18 09:51 [facility] [id number]) Pain Reassessment Is this a pain reassessment? No Sleep Is patient sleeping during reassessment? No Presence of Pain Presence of Pain No Pain Scale Used Pain Scale Used Numeric Location Left, Right or Bilateral Bilateral Pain Location Body Site Leg Description Description Constant Intensity of Pain at present 8 IVP Administration Document 03/15/18 09:50 EWO (Rec: 03/15/18 09:51 [facility] [id number]) Charges for Administration # of IVP Administrations 1 Nifedipine (Procardia Xl) 30 mg PO DAILY ZANA Nifedipine (Procardia Xl) 30 mg PO STAT STA Stop: 03/15/18 08:02 Last Admin: 03/15/18 08:20 Dose: 30 mg MAR Pulse and Blood Pressure Document 03/15/18 08:20 EWO (Rec: 03/15/18 08:20 [facility] [id number]) Pulse Pulse Rate (60-90) 96 Blood Pressure Blood Pressure (100/60-150/90) 237/110 Ondansetron HCl (Zofran Inj) 8 mg IVP STAT STA Stop: 03/15/18 07:46 Last Admin: 03/15/18 07:57 Dose: 8 mg IVP Administration Document 03/15/18 07:57 EWO (Rec: 03/15/18 07:57 [facility] [id number]) Charges for Administration # of IVP Administrations 1 Sildenafil Citrate (Revatio) 20 mg PO TID ZANA Sildenafil Citrate (Revatio) 20 mg PO STAT STA Stop: 03/15/18 08:02 Last Admin: 03/15/18 08:21 Dose: 20 mg - Scribe Statement The provider has reviewed the documentation as recorded by the Jayleen Mcclain Provider Jayleen Attestation: All medical record entries made by the Scribe were at my direction and personally dictated by me. I have reviewed the chart and agree that the record accurately reflects my personal performance of the history, physical exam, medical decision making, and the department course for this patient. I have also personally directed, reviewed, and agree with the discharge instructions and disposition. Disposition/Present on Arrival - Present on Arrival Any Indicators Present on Arrival: No History of DVT/PE: No History of Uncontrolled Diabetes: No Urinary Catheter: No History of Decub. Ulcer: No History Surgical Site Infection Following: None - Disposition Have Diagnosis and Disposition been Completed?: Yes Diagnosis: ESRD (end stage renal disease) on dialysis, Uncontrolled hypertension Disposition: HOME/ ROUTINE Disposition Time: 10:30 Condition: GOOD Additional Instructions: DOMI ELLIOTT, thank you for letting us take care of you today. Your provider was Esteban Diaz DO and you were treated for SOB. The emergency medical care you received today was directed at your acute symptoms. If you were prescribed any medication, please fill it and take as directed. It may take several days for your symptoms to resolve. Return to the Emergency Department if your symptoms worsen, do not improve, or if you have any other problems. Please contact your doctor or call one of the physicians/clinics you have been referred to that are listed on the Patient Visit Information form that is included in your discharge packet. Bring any paperwork you were given at discharge with you along with any medications you are taking to your follow up visit. Our treatment cannot replace ongoing medical care by a primary care provider outside of the emergency department. Thank you for allowing the [facility] team to be part of your care today. Followup in the dialysis unit now for treatment. Referrals: Tamanna Smith MD [Staff Provider] - Follow up with primary Brittany Coffman MD [Primary Care Provider] - Follow up with primary Forms: [employer] ([place]ian)
[2018-03-15 08:26] LABS: ALB/GLOB RATIO 1.6 (1.1-1.8); ALBUMIN 3.9 g/dL (3.0-4.8); CALCIUM 8.5 mg/dL (8.4-10.5)
[2018-03-15 08:30] LABS: TROPONIN I 0.06 ng/mL
[2018-03-15 09:34] LABS: PH,URINE 8.5 (4.7-8.0); URINE BILIRUBIN NEGATIVE (NEGATIVE); URINE BLOOD SMALL (NEGATIVE); URINE GLUCOSE (UA) NEGATIVE (NEGATIVE); URINE LEUKOCYTE ESTERASE MODERATE Leu/uL (NEGATIVE); URINE PROTEIN 100 mg/dL (<30 mg/dL); URINE UROBILINOGEN 0.2 E.U./dL (<1 E.U./dL)
[2018-03-15 09:41] LABS: URINE APPEARANCE CLEAR (CLEAR); URINE COLOR YELLOW (YELLOW)
[2018-03-15] MEDS ORDERED: Morphine 4 mg/ml ISec IVP STA (09:42)
[2018-03-15 10:00] LABS: URINE AMORPHOUS SEDIMENT FEW; URINE BACTERIA MANY (NEG); URINE WBC 20 - 25 /hpf (0-6)
[2018-03-15] MEDS ORDERED: NIFEdipine 30 mg ER Tab PO SCH (10:00)
[2018-03-15] MEDS ORDERED: Sildenafil 20 MG TAB PO SCH (10:00)
--- NOTE | 2018-03-15 10:15 | RAD ---
HISTORY: SOB- h/o ESRD COMPARISON: Comparison chest dated 03/04/2018 FINDINGS: Re- demonstrated are endovascular stent grafts right subclavian and right axillary. Also again noted is a right-sided subclavian MediPort with tip in the SVC. Additionally, right IJ dialysis catheter present with tips in the SVC/ RA. LUNGS: Mild pulmonary venous congestive changes. . There is a localized area of rounded opacity in the left lung base that may represent round pneumonia or atelectasis. Suspect small bilateral effusions left larger than right. PLEURA: No significant pleural effusion identified, no pneumothorax apparent. CARDIOVASCULAR: Heart remains enlarged. OSSEOUS STRUCTURES: No significant abnormalities. VISUALIZED UPPER ABDOMEN: Normal. OTHER FINDINGS: None. IMPRESSION: Mild pulmonary venous congestive changes. . There is a localized area of rounded opacity in the left lung base that may represent round pneumonia or atelectasis. Suspect small bilateral effusions left larger than right.
[2018-03-15 11:01] VITALS: TEMP 97.8
[2018-03-15 11:02] VITALS: RESP 18
[2018-03-15 11:17] VITALS: BP 109/102; PULSE 88; O2SAT 95
--- NOTE | 2018-03-15 15:57 | CARD ---
APPROVED REPORT EKG Measurement Heart [id number] <Conclusion> Normal sinus rhythm Possible Left atrial enlargement Left ventricular hypertrophy with repolarization abnormality Prolonged QT Abnormal ECG
--- NOTE | 2018-03-16 08:27 | CON ---
DATE: 03/15/2018 REASON FOR CONSULTATION: Hyperkalemia, shortness of breath, and elevated blood pressure. HISTORY OF PRESENTING ILLNESS: A 57-year-old lady known to me from outpatient hemodialysis. Patient is on dialysis schedule of Thursday, , and Thursday. She presented to the emergency room this morning with complaints of shortness of breath, some chest tightness. She was found to have elevated blood pressure. Her potassium is elevated at 5.6. She was also found to have elevated BNP. She denies any fever, chills. She denies any cough. She denies any nausea, vomiting, or diarrhea. PAST MEDICAL AND SURGICAL HISTORY: Severe hypertension, labile hypertension, COPD, ESRD, peripheral vascular disease, pulmonary hypertension, anxiety, anemia of chronic kidney disease, secondary hyperparathyroidism. FAMILY HISTORY: Hypertension. SOCIAL HISTORY: Ex-smoker, no alcohol use, no IV drug abuse. ALLERGIES: CIPROFLOXACIN, HYDRALAZINE, AND VANCOMYCIN. MEDICATIONS AT HOME: Revatio 20 mg, nifedipine 30 mg, labetalol 300 every 8 hours, lisinopril 40, and clonidine 0.1 t.i.d., Keppra. REVIEW OF SYSTEMS: All systems are reviewed, pertinent positives as mentioned in the history of presenting illness, rest unremarkable. PHYSICAL EXAMINATION: GENERAL: Middle-aged lady, sitting in bed, in [id number] respiratory distress. VITAL SIGNS: Blood pressure 199/102, heart rate 94, respiratory rate 20 to 24, temperature afebrile. NECK: Supple, no JVD. LUNGS: Bilateral equal air entry, bilateral rhonchi, bilateral equal expansion. CARDIAC: S1 and S2, regular rate and rhythm, no murmur, no rub. ABDOMEN: Soft, nondistended, nontender, bowel sounds present. EXTREMITIES: 1+ pitting edema of the lower extremities. INTAKE AND OUTPUT: Not charted. LABORATORY DATA: WBC 5.6, hemoglobin 10.5, hematocrit 35, and platelets 274. Sodium 142, potassium 5.6, chloride 96, CO2 of 31. BUN 50, creatinine 6.4. Glucose 86. Calcium 8.5, magnesium 2.1. LDH 475. BNP 106,000. Albumin 3.9. Chest x-ray, pulmonary vascular congestion. ASSESSMENT: 1. Decompensated congestive heart failure. 2. Hyperkalemia. 3. Pulmonary edema. 4. Hypertension, uncontrolled. 5. End-stage renal disease. PLAN: 1. Discussed case with ER attending at length. The patient needs extra dialysis treatment. The patient can have this treatment done safely at her outpatient unit. No indication for admission to the hospital. 2. The patient can be discharged and I will schedule extra treatment in the outpatient unit. Tamanna Smith MD
== END 2018-03-15 11:11 | disposition home or self-care (01) ==
LOC: ED 07:06
DX: I12.0 Hypertensive chronic kidney disease with stage 5 chronic kidney disease or end stage renal disease (principal); N18.6 End stage renal disease; Z99.2 Dependence on renal dialysis; E03.9 Hypothyroidism, unspecified; E78.5 Hyperlipidemia, unspecified; I25.10 Atherosclerotic heart disease of native coronary artery without angina pectoris; I50.9 Heart failure, unspecified; Z86.73 Personal history of transient ischemic attack (TIA), and cerebral infarction without residual deficits; Z87.891 Personal history of nicotine dependence
CPT/HCPCS: 71045; 80053; 81001; 82550; 83615; 83735; 83880; 84484; 85025; 85610; 85730; 87086; 93005; 96374; 96375; 99284; J1940; J2270; J2405

== ENCOUNTER 2018-03-16 14:34 | Emergency (ER) | payer MEDICARE ==
[2018-03-16 15:09] VITALS: BMI 22.0
--- NOTE | 2018-03-16 15:20 | ED PDOC ---
Arrival/HPI - History of Present Illness Time/Duration: 1-3 hours Symptom Onset: Sudden Symptom Course: Unchanged Activities at Onset: Light <aLtoya Hull - Last Filed: 03/16/18 15:34> <Joe Esteban - Last Filed: 03/16/18 17:48> - General Chief Complaint: Chest Pain Time Seen by Provider: 03/16/18 14:35 - History of Present Illness Narrative History of Present Illness (Text): 03/16/18 15:21 This is a 57 year old female with PMH of DM, asthma, pulmonary hypertension, COPD, DVT, CAD, CVA, seizure, GERD, and ESRD on dialysis T//Thu. Last dialysis was today at 11am and 3 L was taken out. She developed chest pain, SOB , and generalized weakness towards of her dialysis today. She was seen in the ED yesterday for similar complaints and was dialyzed yesterday as well. Symptoms began 2 weeks ago. Patient is seen frequently in ED for similar symptoms. PMD is Dr. Coffman. Admits to nausea, chest pain, SOB and generalized weakness. Denies headaches, fevers, vomiting, and abdominal pain. (Latoya Hull) Past Medical History - Provider Review Nursing Documentation Reviewed: Yes - Past History Past History: No Previous - Infectious Disease Hx of Infectious Diseases: None - Tetanus Immunization Tetanus Immunization: Unknown - Cardiac Hx Cardiac Disorders: Yes (mi x2 02/2017, pericardial window,cardiomyopathy) Hx Angina: Yes Hx Cardiac Arrhythmia: Yes Hx Congestive Heart Failure: Yes Hx Hypertension: Yes Hx Peripheral Edema: Yes (none today) Hx Peripheral Vascular Disease: Yes (pain/numbness when ambulating) Other/Comment: dvt, cold numb extremities, pad - Pulmonary Hx Respiratory Disorders: Yes Hx Asthma: Yes Hx Chronic Obstructive Pulmonary Disease (COPD): Yes Hx Emphysema: Yes Hx Pneumonia: Yes Hx Sleep Apnea: Yes Other/Comment: former smoker - Neurological Hx Neurological Disorder: Yes Hx Alzheimer's Disease: No Hx Dementia: No Hx Migraine: Yes Hx Parkinson's Disease: No Hx Seizures: Yes Hx Transient Ischemic Attacks (TIA): Yes Other/Comment: 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 and 1 stroke with seizure another day, c/o memory loss difficulty walking post tia's - HEENT Hx HEENT Disorder: Yes (hard of hearing,RIGHT EAR DEAF) Other/Comment: tinnitus, - Renal Date of Last Dialysis Treatment: 02/08/18 - Endocrine/Metabolic Hx Endocrine Disorders: Yes Hx Hypothyroidism: Yes - Hematological/Oncological Hx Blood Disorders: Yes Hx Anemia: Yes (blood transfusions) Hx Sickle Cell Disease: No - Integumentary Hx Dermatological Disorder: Yes (non healing sugical wound to right ankle) Other/Comment: multiple skin discolorations extremities, lg fatty tissue lump to left lower back,r great toe "ingrown toenail" redness swelling covered with bandaid pt did not want it touched, thick hard toenails both feet, right lower leg none healing surgical wound pt did not want dressing removed for assesment - Musculoskeletal/Rheumatological Hx Falls: Yes (past) - Gastrointestinal Hx Gastrointestinal Disorders: Yes (chronic nausea, constipation,vomiting) Hx Crohn's Disease: No Hx Diverticulitis: Yes Hx Gall Bladder Disease: No Hx Gastroesophageal Reflux: Yes Hx Pancreatitis: No Other/Comment: diverticulosis, poor appetite and weight loss, hiatal hernia x2 - Genitourinary/Gynecological Hx Sexually Transmitted Diseases: No - Psychiatric Hx Anxiety: Yes Hx Bipolar Disorder: No Hx Depression: No Hx Post Traumatic Stress Disorder: No Hx Schizophrenia: No Hx Substance Use: No - Past Surgical History Past Surgical History: Unable to Obtain - Surgical History Hx Appendectomy: Yes Hx Cardiac Catheterization: Yes Hx Cholecystectomy: No Hx Coronary Stent: Yes Other/Comment: r av shunt not working, rch dialysis cath used for hd, tonsillectomy, inguinal hernia repair, r leg stent 05/2017, "stent to head 04/2017 , double artrial bypass both legs due to poor circulation 04/2017, skin graft to non healing r ankle wound 2017, 2 cysts on thyroid, thoracentesis x2, r av fistula not working, rcw hd cath working - Anesthesia Hx Anesthesia: Yes Hx Anesthesia Reactions: No Hx Malignant Hyperthermia: No - Suicidal Assessment Feels Threatened In Home Enviroment: No <Latoya Hull - Last Filed: 03/16/18 15:34> Family/Social History - Physician Review Nursing Documentation Reviewed: Yes Family/Social History: Unknown Family HX Smoking Status: Former Smoker Hx Alcohol Use: No Hx Substance Use: No Hx Substance Use Treatment: No <Latoya Hull - Last Filed: 03/16/18 15:34> Allergies/Home Meds <Santa Hullsandy - Last Filed: 03/16/18 15:34> <Esteban Diaz DO - Last Filed: 03/16/18 17:48> Allergies/Adverse Reactions: Allergies ciprofloxacin Allergy (Verified 03/15/18 07:15) RASH hydralazine Allergy (Verified 03/15/18 07:15) RASH vomiting vancomycin Allergy (Verified 03/15/18 07:15) SHORTNESS OF BREATH palpitations ct dye Allergy (Uncoded 03/15/18 07:15) RASH Home Medications: Home Meds Medication Instructions Recorded Confirmed Lisinopril [Zestril] 40 mg PO DAILY 10/05/17 03/16/18 Sildenafil [Revatio] 20 mg PO Q8H 10/05/17 03/16/18 Clopidogrel [Plavix] 1 tab PO DAILY 11/18/17 03/16/18 NIFEdipine ER [Procardia XL] 30 tab PO DAILY 11/18/17 03/16/18 Labetalol [Trandate] 300 mg PO Q8H PRN 01/12/18 03/16/18 Levothyroxine [Synthroid] 75 mcg PO DAILY 01/12/18 03/16/18 Ondansetron ODT [Zofran ODT] 4 mg PO Q8H PRN 01/12/18 03/16/18 Pantoprazole [Protonix EC Tab] 40 mg PO DAILY 01/12/18 03/16/18 cloNIDine [Catapres] 0.1 mg PO TID 01/12/18 03/16/18 Review of Systems - Physician Review All systems were reviewed & negative as marked: Yes - Review of Systems Constitutional: Fatigue. absent: Fevers Eyes: Normal ENT: Normal Respiratory: SOB. absent: Cough Cardiovascular: Chest Pain. absent: Palpitations, Syncope Gastrointestinal: Normal Genitourinary Female: Normal Musculoskeletal: Normal Skin: Normal Neurological: Normal Endocrine: Normal Psychiatric: Normal <Santa Hullsandy - Last Filed: 03/16/18 15:34> Physical Exam Vital Signs Reviewed: Yes Temperature: Afebrile Blood Pressure: Hypertensive Pulse: Regular Respiratory Rate: Normal Appearance: Positive for: Well-Appearing, Non-Toxic, Comfortable Pain Distress: None Mental Status: Positive for: Alert and Oriented X 3 - Systems Exam Head: Present: Atraumatic, Normocephalic Pupils: Present: PERRL Extroacular Muscles: Present: EOMI Conjunctiva: Present: Normal Mouth: Present: Moist Mucous Membranes Neck: Present: Normal Range of Motion Respiratory/Chest: Present: Clear to Auscultation, Good Air Exchange. No: Respiratory Distress, Accessory Muscle Use Cardiovascular: Present: Regular Rate and Rhythm, Normal S1, S2. No: Murmurs Abdomen: No: Tenderness, Distention, Peritoneal Signs Back: Present: Normal Inspection Upper Extremity: Present: Normal Inspection. No: Cyanosis, Edema Lower Extremity: Present: Normal Inspection. No: Edema Neurological: Present: GCS=15, Speech Normal, Motor Func Grossly Intact, Normal Sensory Function Skin: Present: Warm, Dry, Normal Color. No: Rashes Psychiatric: Present: Alert, Oriented x 3, Normal Insight, Normal Concentration <Latoya Hull - Last Filed: 03/16/18 15:34> Vital Signs Temp Pulse Pulse Resp BP BP Pulse Ox 03/16/18 17:34 98.0 F 93 H 20 100 03/16/18 17:00 98.0 F 93 H 20 179/80 H 100 03/16/18 15:28 96 H 190/82 H 03/16/18 15:25 98.0 F 96 H 16 190/82 H 100 Medical Decision Making <Latoya Hull - Last Filed: 03/16/18 15:34> <Esteban Diaz DO - Last Filed: 03/16/18 17:48> ED Course and Treatment: 03/16/18 15:30 This is a 57 year old female with PMH of DM, asthma, pulmonary hypertension, COPD, DVT, CAD, CVA, seizure, GERD, and ESRD on dialysis T/Th/Sat. Differential: ESRD vs. electrolyte abnormality Plan: EKG Troponin Blood work, BNP, MG Zofran CXY U/A Progress: EKG: rate of 97, NC of 130ms, QRS of 88ms. Normal sinus rhythm. (Latoya Hull) - Lab Interpretations Lab Results: 03/16/18 15:24 03/16/18 15:24 Lab Results 03/16/18 16:29: Urine Color Yellow, Urine Appearance Slight-cloudy, Urine pH 8.0 , Ur Specific [place] 1.020, Urine Protein >=300 H, Urine Glucose (UA) Negative , Urine Ketones Negative, Urine Blood Trace-intact H, Urine Nitrate Negative, Urine Bilirubin Negative, Urine Urobilinogen 0.2, Ur Leukocyte Esterase Small H , Urine RBC 1 - 3, Urine WBC 20 - 25, Ur Epithelial Cells 10 - 12, Urine Bacteria Trace 03/16/18 15:24: Sodium 142, Potassium 4.0, Chloride 95 L, Carbon Dioxide 31, Anion Gap 21 H, BUN 13, Creatinine 2.1 H, Est GFR ( Amer) 29, Est GFR ( Non-Af Amer) 24, Random Glucose 136 H, Calcium 9.1, Magnesium 2.0, Total Bilirubin 0.6, AST 33, ALT 33, Alkaline Phosphatase 173 H D, Lactate Dehydrogenase 568, Total Creatine Kinase 71, Troponin I 0.05, NT-Pro-B Natriuret Pep [id number] H, Total Protein 7.5, Albumin 4.6, Globulin 3.0, Albumin/ Globulin Ratio 1.6 03/16/18 15:24: WBC 6.4, RBC 4.70, Hgb 13.0 D, Hct 44.0, MCV 93.6, MCH 27.7, MCHC 29.5 L, RDW 16.4 H, Plt Count 254, MPV 10.2, Gran % 62.5, Lymph % (Auto) 20.8 L, [place] % (Auto) 13.4 H, Eos % (Auto) 2.5, Baso % (Auto) 0.8, Gran # 4.03, Lymph # (Auto) 1.3, [place] # (Auto) 0.9 H, Eos # (Auto) 0.2, Baso # (Auto) 0.05 - RAD Interpretation Radiology Orders: 03/16/18 15:09 CHEST PORTABLE [RAD] Stat - Medication Orders Current Medication Orders: Discontinued Medications Albuterol/Ipratropium (Duoneb 3 Mg/0.5 Mg (3 Ml) Ud) 3 ml IH STAT STA Stop: 03/16/18 16:36 Last Admin: 03/16/18 16:44 Dose: 3 ml Ondansetron HCl (Zofran Inj) 4 mg IVP STAT STA Stop: 03/16/18 15:29 Last Admin: 03/16/18 15:37 Dose: 4 mg IVP Administration Document 03/16/18 15:37 [email or web address] (Rec: 03/16/18 15:37 [email or web address] [id number]) Charges for Administration # of IVP Administrations 1 Oxycodone HCl (Oxycodone Immediate Release Tab) 5 mg PO STAT STA Stop: 03/16/18 16:36 Last Admin: 03/16/18 16:45 Dose: 5 mg MAR Pain Assessment Document 03/16/18 16:45 [email or web address] (Rec: 03/16/18 16:46 [email or web address] [id number]) Pain Reassessment Is this a pain reassessment? No Sleep Is patient sleeping during reassessment? No Presence of Pain Presence of Pain Yes Pain Scale Used Pain Scale Used Numeric Location Pain Location Body Site Chest Description Description Constant Intensity of Pain at present 5 Pain Behavior Facial Grimacing Aggravating Factors Changing Position Alleviating Factors/Management Position Change Techniques Alleviating Factors Medication - PA / CHUCKER / Resident Statement / has reviewed & agrees with the documentation as recorded. / has examined the patient and agrees with the treatment plan. <Latoya Hull - Last Filed: 03/16/18 15:34> Disposition/Present on Arrival - Present on Arrival History of DVT/PE: No History of Uncontrolled Diabetes: No Urinary Catheter: No History Surgical Site Infection Following: None <Latoya Hull - Last Filed: 03/16/18 15:34> - Present on Arrival Any Indicators Present on Arrival: No - Disposition Have Diagnosis and Disposition been Completed?: Yes Disposition Time: 16:30 <Esteban Diaz DO - Last Filed: 03/16/18 17:48> - Disposition Diagnosis: ESRD (end stage renal disease) on dialysis, Shortness of breath Disposition: HOME/ ROUTINE Condition: IMPROVED Discharge Instructions (ExitCare): End Stage Kidney Disease (DC), Dialysis and Diet Additional Instructions: DOMI ELLIOTT, thank you for letting us take care of you today. The emergency medical care you received today was directed at your acute symptoms. If you were prescribed any medication, please fill it and take as directed. It may take several days for your symptoms to resolve. Return to the Emergency Department if your symptoms worsen, do not improve, or if you have any other problems. Please contact your doctor or call one of the physicians/clinics you have been referred to that are listed on the Patient Visit Information form that is included in your discharge packet. Bring any paperwork you were given at discharge with you along with any medications you are taking to your follow up visit. Our treatment cannot replace ongoing medical care by a primary care provider outside of the emergency department. Thank you for allowing the [facility] team to be part of your care today. Follow up with your dialysis as scheduled and Dr. Coffman in 3-4 days for re- evaluation and further management. Referrals: Brittany Coffman MD [Primary Care Provider] - Follow up with primary Forms: [employer] [facility] (Thai)
[2018-03-16 15:26] VITALS: TEMP 98; O2SAT 100
--- NOTE | 2018-03-16 15:26 | RAD ---
Date of service: 03/16/2018 HISTORY: Chest pain COMPARISON: 03/15/2018. FINDINGS: The right-sided dialysis catheter terminates in the right atrium. The right MediPort terminates in the right atrium. There is stable appearance of right subclavian stent. LUNGS: The lungs are well inflated. There is mild pulmonary venous congestion. PLEURA: Small left pleural effusion, no pneumothorax apparent. CARDIOVASCULAR: Mild cardiomegaly. OSSEOUS STRUCTURES: No significant abnormalities. VISUALIZED UPPER ABDOMEN: Normal. OTHER FINDINGS: None. IMPRESSION: Small left pleural effusion. Underlying airspace disease cannot be excluded. Persistent mild cardiomegaly and pulmonary venous congestion.
[2018-03-16 15:32] LABS: BASO # 0.05 K/mm3 (0.0-2.0); BASO % 0.8 % (0.0-3.0); EOS # 0.2 (0.0-0.7); EOS % 2.5 % (1.5-5.0); GRAN # 4.03 (1.4-6.5); GRAN % 62.5 % (50.0-68.0); LYMPH # 1.3 (1.2-3.4); LYMPH % 20.8 % (22.0-35.0); MEAN CELL VOLUME 93.6 fl (80.0-105.0); MEAN CORPUSCULAR HEMOGLOBIN 27.7 pg (25.0-35.0); MEAN CORPUSCULAR HGB CONC 29.5 g/dl (31.0-37.0); MEAN PLATELET VOLUME 10.2 fl (7.0-11.0); MONO # 0.9 (0.1-0.6); MONO % 13.4 % (1.0-6.0); RBC 4.7 10^6/uL (3.5-6.1); RED CELL DISTRIBUTION WIDTH 16.4 % (11.5-14.5); WHITE BLOOD COUNT 6.4 10^3/ul (4.5-11.0)
[2018-03-16 15:53] LABS: ALB/GLOB RATIO 1.6 (1.1-1.8); ALBUMIN 4.6 g/dL (3.0-4.8); CALCIUM 9.1 mg/dL (8.4-10.5)
[2018-03-16 16:00] LABS: TROPONIN I 0.05 ng/mL
[2018-03-16] MEDS ORDERED: Albuterol-Ipratrop 3 mg / 0.5 (3 ml) UD IH STA (16:35)
[2018-03-16] MEDS ORDERED: oxyCODONE 5 mg Immediate Release Tab PO STA (16:35)
[2018-03-16 16:52] LABS: URINE BILIRUBIN NEGATIVE (NEGATIVE); URINE BLOOD TRACE-INTACT (NEGATIVE); URINE GLUCOSE (UA) NEGATIVE (NEGATIVE); URINE LEUKOCYTE ESTERASE SMALL Leu/uL (NEGATIVE); URINE PROTEIN >=300 mg/dL (<30 mg/dL); URINE UROBILINOGEN 0.2 E.U./dL (<1 E.U./dL)
[2018-03-16 16:53] LABS: URINE APPEARANCE SLIGHT-CLOUDY (CLEAR); URINE COLOR YELLOW (YELLOW)
--- NOTE | 2018-03-16 16:53 | CARD ---
APPROVED REPORT Date of service: 03/16/2018 EKG Measurement Heart [id number] <Conclusion> Normal sinus rhythm Biatrial enlargement Left ventricular hypertrophy with repolarization abnormality Prolonged QT Abnormal ECG
[2018-03-16 17:06] LABS: URINE BACTERIA TRACE (NEG); URINE WBC 20 - 25 /hpf (0-6)
[2018-03-16 17:35] VITALS: BP 179/80; PULSE 93; RESP 20
== END 2018-03-16 17:36 | disposition home or self-care (01) ==
LOC: ED 14:34
DX: I12.0 Hypertensive chronic kidney disease with stage 5 chronic kidney disease or end stage renal disease (principal); N18.6 End stage renal disease; Z99.2 Dependence on renal dialysis; R06.02 Shortness of breath; E11.9 Type 2 diabetes mellitus without complications; I25.10 Atherosclerotic heart disease of native coronary artery without angina pectoris; E03.9 Hypothyroidism, unspecified; I50.9 Heart failure, unspecified; Z87.891 Personal history of nicotine dependence
CPT/HCPCS: 71045; 80053; 81001; 82550; 83615; 83735; 83880; 84484; 85025; 87086; 93005; 96374; 99283; J2405

== ENCOUNTER 2018-03-24 08:38 | Day surgery (SDC) | payer MEDICARE ==
[2018-03-23 14:13] VITALS: BMI 21.6
[2018-03-24] MEDS ORDERED: Labetalol 5 mg/ml Inj 20ML IV ONE ×3 (10:04→10:24)
[2018-03-24 10:08] LABS: BASO # 0.03 K/mm3 (0.0-2.0); BASO % 0.5 % (0.0-3.0); EOS # 0.1 (0.0-0.7); EOS % 1.6 % (1.5-5.0); GRAN # 4.17 (1.4-6.5); GRAN % 65.6 % (50.0-68.0); HEMOGLOBIN 12.5 g/dL (12.0-16.0); LYMPH # 1.6 (1.2-3.4); LYMPH % 24.7 % (22.0-35.0); MEAN CELL VOLUME 91.5 fl (80.0-105.0); MEAN CORPUSCULAR HEMOGLOBIN 27.8 pg (25.0-35.0); MEAN CORPUSCULAR HGB CONC 30.4 g/dl (31.0-37.0); MEAN PLATELET VOLUME 10.1 fl (7.0-11.0); MONO # 0.5 (0.1-0.6); MONO % 7.6 % (1.0-6.0); RBC 4.49 10^6/uL (3.5-6.1); RED CELL DISTRIBUTION WIDTH 17.7 % (11.5-14.5); WHITE BLOOD COUNT 6.4 10^3/ul (4.5-11.0)
[2018-03-24 10:21] LABS: CALCIUM 8.2 mg/dL (8.4-10.5)
[2018-03-24] MEDS ORDERED: Labetalol 5 mg/ml Inj 20ML ONE ×2 (10:22→12:39)
[2018-03-24] MEDS ORDERED: Lidocaine 2 GM Vial 2 GM/50 ML VIAL IV ONE (10:55)
[2018-03-24] MEDS ORDERED: Midazolam 2 MG/2 ML VIAL ONE ×2 (11:16→11:37)
[2018-03-24] MEDS ORDERED: Oxycodone/Acetaminophen 5/325 mg Tab PO PRN (12:01)
[2018-03-24] MEDS ORDERED: Sodium Chloride 0.45% 1,000 ML IV SCH (12:15)
[2018-03-24] MEDS ORDERED: Oxycodone/Acetaminophen 5/325 mg Tab ONE (12:40)
[2018-03-24] MEDS: Labetalol 5 mg/ml Inj 20ML IV PRN ×2 (12:40→13:05)
[2018-03-24 13:57] VITALS: PULSE 82; RESP 20; TEMP 98.2; O2SAT 98
[2018-03-24] MEDS ORDERED: NIFEdipine 30 mg ER Tab PO STA (14:22)
[2018-03-24] MEDS ORDERED: NIFEdipine 30 mg ER Tab PO ONE (14:45)
[2018-03-24 15:24] VITALS: BP 156/77
--- NOTE | 2018-03-24 20:34 | VASCULAR ---
PROCEDURE: Replace tunneled right IJ dialysis catheter. CLINICAL HISTORY: End stage renal disease. Malfunctioning tunneled dialysis catheter. PHYSICIAN(S): Lucio Thomas M.D. TECHNIQUE: The relative risks and indications for the procedure were explained to the patient and consent obtained. The patient was placed supine on the arteriogram table and the tunneled right IJ dialysis catheter prepped and draped in the usual sterile fashion. Antibiotics were given prior to the procedure. 1% Xylocaine was used to anesthetize the skin soft tissues at the vein insertion site. A 2 cm incision was performed and the catheter bluntly dissected. Both ends of the catheter controlled and the catheter transected. The cuff and soft tissue portion of the catheter were anesthetized with 1% Xylocaine. Blunt dissection was performed. The cuffed portion of the catheter was removed. A 0.035 angled Glidewire was advanced through the catheter fragment and placed in the IVC. The old catheter was removed. The sheath was placed for the new catheter insertion. A 28cm Nextgen catheter was advanced with its tip in the right atrium. A new retrograde tunnel below right clavicle was performed. The catheter was trimmed and the hub attached. Both ports aspirate and inject easily. The catheter was secured. The incision was closed with interrupted sutures. FINDINGS: IMPRESSION: 1. Replacement of the patient's tunneled right IJ dialysis catheter. A 28cm Nextgen catheter was placed with its tip in the right atrium.
== END 2018-03-24 15:35 | disposition home or self-care (01) ==
LOC: SDS 08:38
PROVIDERS: ATTEND Radiology Vascular & Interventional Radiology
DX: T82.41XA Breakdown (mechanical) of vascular dialysis catheter, initial encounter (principal); I13.2 Hypertensive heart and chronic kidney disease with heart failure and with stage 5 chronic kidney disease, or end stage renal disease; E11.22 Type 2 diabetes mellitus with diabetic chronic kidney disease; N18.6 End stage renal disease; I50.9 Heart failure, unspecified; I25.10 Atherosclerotic heart disease of native coronary artery without angina pectoris; I25.2 Old myocardial infarction; E11.51 Type 2 diabetes mellitus with diabetic peripheral angiopathy without gangrene; J44.9 Chronic obstructive pulmonary disease, unspecified; Y84.8 Other medical procedures as the cause of abnormal reaction of the patient, or of later complication, without mention of misadventure at the time of the procedure
CPT/HCPCS: 36581; 80048; 85025; 99152; C1750; C1769; J0690; J1642; J1644; J2250; J2405; J3010; J7030

== ENCOUNTER 2018-03-25 14:30 | Emergency (ER) | payer MEDICARE ==
[2018-03-25 14:45] VITALS: BMI 21.2
[2018-03-25 14:51] VITALS: O2SAT 100
--- NOTE | 2018-03-25 15:58 | ED PDOC ---
Arrival/HPI - General Chief Complaint: Medical Clearance Time Seen by Provider: 03/25/18 14:32 Historian: Patient - History of Present Illness Narrative History of Present Illness (Text): 03/25/18 16:07 57 year old female, with past medical history of diabetes, pulmonary hypertension, hyperlipidemia, asthma, emphysema, COPD, CHF, DVT, CAD, CVA, seizure, ESRD on hemodialysis on //Thu (last full treatment this morning), GERD, gastritis, diverticulitis, anemia, hypothyroidism, arthritis, and anxiety , presents to the emergency department for evaluation due to bleeding dialysis port post hemodialysis this morning. Patient states she completed dialysis today , with no complications. Patient says bleeding occurred after the dialysis treatment, and came to Emergency department for medical evaluation. Patient is not currently bleeding and denies any fever, chills, abdominal pain, diarrhea, nausea, vomiting or any other complaints. Time/Duration: Prior to Arrival Symptom Onset: Gradual Symptom Course: Other (no current bleeding) Activities at Onset: Light Context: Other (Dialysis clinic) Past Medical History - Provider Review Nursing Documentation Reviewed: Yes - Past History Past History: No Previous - Infectious Disease Hx of Infectious Diseases: None - Tetanus Immunization Tetanus Immunization: Unknown - Cardiac Hx Pacemaker: No - Pulmonary Hx Respiratory Disorders: Yes Hx Asthma: Yes Hx Chronic Obstructive Pulmonary Disease (COPD): Yes Hx Emphysema: Yes Hx Pneumonia: Yes Hx Sleep Apnea: Yes Other/Comment: former smoker - Neurological Hx Paralysis: No - HEENT Hx HEENT Disorder: Yes (hard of hearing,RIGHT EAR DEAF) Other/Comment: tinnitus, - Renal Date of Last Dialysis Treatment: 02/08/18 - Endocrine/Metabolic Hx Endocrine Disorders: Yes Hx Hypothyroidism: Yes - Hematological/Oncological Hx Blood Transfusions: Yes Hx Blood Transfusion Reaction: No - Integumentary Hx Dermatological Disorder: Yes (non healing sugical wound to right ankle) Other/Comment: multiple skin discolorations extremities, lg fatty tissue lump to left lower back,r great toe "ingrown toenail" redness swelling covered with bandaid pt did not want it touched, thick hard toenails both feet, right lower leg none healing surgical wound pt did not want dressing removed for assesment - Musculoskeletal/Rheumatological Hx Musculoskeletal Disorders: Yes (generalized chronic body pain) - Gastrointestinal Hx Gastrointestinal Disorders: Yes (chronic nausea, constipation,vomiting) Hx Crohn's Disease: No Hx Diverticulitis: Yes Hx Gall Bladder Disease: No Hx Gastroesophageal Reflux: Yes Hx Pancreatitis: No Other/Comment: diverticulosis, poor appetite and weight loss, hiatal hernia x2 - Genitourinary/Gynecological Hx Sexually Transmitted Diseases: No - Psychiatric Hx Emotional Abuse: No Hx Physical Abuse: No Hx Substance Use: No - Past Surgical History Past Surgical History: Unable to Obtain - Surgical History Hx Appendectomy: Yes Hx Cardiac Catheterization: Yes Hx Cholecystectomy: No Hx Coronary Stent: Yes Other/Comment: r av shunt not working, rch dialysis cath used for hd, tonsillectomy, inguinal hernia repair, r leg stent 05/2017, "stent to head 04/2017 , double artrial bypass both legs due to poor circulation 04/2017, skin graft to non healing r ankle wound 2017, 2 cysts on thyroid, thoracentesis x2, r av fistula not working, rcw hd cath working - Anesthesia Hx Anesthesia Reactions: No Hx Malignant Hyperthermia: No - Suicidal Assessment Feels Threatened In Home Enviroment: No Family/Social History - Physician Review Nursing Documentation Reviewed: Yes Family/Social History: No Known Family HX Smoking Status: Former Smoker Hx Alcohol Use: No Hx Substance Use: No Hx Substance Use Treatment: No Allergies/Home Meds Allergies/Adverse Reactions: Allergies ciprofloxacin Allergy (Verified 03/15/18 07:15) RASH hydralazine Allergy (Verified 03/15/18 07:15) RASH vomiting vancomycin Allergy (Verified 03/15/18 07:15) SHORTNESS OF BREATH palpitations ct dye Allergy (Uncoded 03/15/18 07:15) RASH Home Medications: Home Meds Medication Instructions Recorded Confirmed Lisinopril [Zestril] 40 mg PO DAILY 10/05/17 03/25/18 Sildenafil [Revatio] 20 mg PO Q8H 10/05/17 03/25/18 Clopidogrel [Plavix] 1 tab PO DAILY 11/18/17 03/25/18 NIFEdipine ER [Procardia XL] 30 tab PO DAILY 11/18/17 03/25/18 Labetalol [Trandate] 300 mg PO Q8H PRN 01/12/18 03/25/18 Levothyroxine [Synthroid] 75 mcg PO DAILY 01/12/18 03/25/18 Ondansetron ODT [Zofran ODT] 4 mg PO Q8H PRN 01/12/18 03/25/18 Pantoprazole [Protonix EC Tab] 40 mg PO DAILY 01/12/18 03/25/18 cloNIDine [Catapres] 0.1 mg PO TID 01/12/18 03/25/18 HYDROmorphone [Dilaudid] 2 mg PO Q4H PRN 03/23/18 03/25/18 Review of Systems - Physician Review All systems were reviewed & negative as marked: Yes - Review of Systems Constitutional: Normal. absent: Fevers, Night Sweats Eyes: Normal ENT: Normal Respiratory: Normal Cardiovascular: Normal Gastrointestinal: Normal. absent: Abdominal Pain, Diarrhea, Nausea, Vomiting Genitourinary Female: Normal Musculoskeletal: Normal Skin: Normal, Other (bleeding of dialysis port prior to arrival) Neurological: Normal Endocrine: Normal Hemo/Lymphatic: Normal Psychiatric: Normal Physical Exam Vital Signs Reviewed: Yes Vital Signs Temp Pulse Resp BP Pulse Ox 03/25/18 16:11 98.0 F 98 H 17 165/78 H 100 03/25/18 14:49 97.6 F 102 H 18 172/80 H 100 Temperature: Afebrile Blood Pressure: Hypertensive Pulse: Tachycardic Respiratory Rate: Normal Appearance: Positive for: Well-Appearing, Non-Toxic, Comfortable Pain Distress: None Mental Status: Positive for: Alert and Oriented X 3 - Systems Exam Head: Present: Atraumatic, Normocephalic Pupils: Present: PERRL Extroacular Muscles: Present: EOMI Conjunctiva: Present: Normal Mouth: Present: Moist Mucous Membranes Neck: Present: Normal Range of Motion, Other (dry blood on steri-strip, no active bleeding) Respiratory/Chest: Present: Clear to Auscultation, Good Air Exchange, Other ( right subclavian hemodialysis catheter). No: Respiratory Distress, Accessory Muscle Use Cardiovascular: Present: Regular Rate and Rhythm, Normal S1, S2. No: Murmurs Abdomen: No: Tenderness, Distention, Peritoneal Signs Back: Present: Normal Inspection Upper Extremity: Present: Normal Inspection. No: Cyanosis, Edema Lower Extremity: Present: Normal Inspection. No: Edema Neurological: Present: GCS=15, CN II-XII Intact, Speech Normal Skin: Present: Warm, Dry, Normal Color. No: Rashes Psychiatric: Present: Alert, Oriented x 3, Normal Insight, Normal Concentration Medical Decision Making ED Course and Treatment: 03/25/18 16:04 Impression: This is a 57 year old female presents to the emergency department for evaluation of bleeding in dialysis port after last hemodialysis treatment. Plan: -- Reassess and disposition Prior Visits: Notes and results from previous visits were reviewed. Progress Notes: - Scribe Statement The provider has reviewed the documentation as recorded by the Scribe Lucio Duran, michael with Vin[facility] All medical record entries made by the Scribe were at my direction and personally dictated by me. I have reviewed the chart and agree that the record accurately reflects my personal performance of the history, physical exam, medical decision making, and the department course for this patient. I have also personally directed, reviewed, and agree with the discharge instructions and disposition. Disposition/Present on Arrival - Present on Arrival Any Indicators Present on Arrival: No History of DVT/PE: No History of Uncontrolled Diabetes: No Urinary Catheter: No History of Decub. Ulcer: No History Surgical Site Infection Following: None - Disposition Have Diagnosis and Disposition been Completed?: Yes Diagnosis: Visit for wound check Disposition: HOME/ ROUTINE Disposition Time: 16:00 Condition: GOOD Discharge Instructions (ExitCare): Dialysis Diet Additional Instructions: DOMI ELLIOTT, thank you for letting us take care of you today. Your provider was Esteban Diaz DO and you were treated for DIALYS PORT BLEEDING. The emergency medical care you received today was directed at your acute symptoms. If you were prescribed any medication, please fill it and take as directed. It may take several days for your symptoms to resolve. Return to the Emergency Department if your symptoms worsen, do not improve, or if you have any other problems. Please contact your doctor or call one of the physicians/clinics you have been referred to that are listed on the Patient Visit Information form that is included in your discharge packet. Bring any paperwork you were given at discharge with you along with any medications you are taking to your follow up visit. Our treatment cannot replace ongoing medical care by a primary care provider outside of the emergency department. Thank you for allowing the [facility] team to be part of your care today. Follow up with your dialysis center as scheduled. Return to the emergency room if you have any concerns. Referrals: [facility], [Non-Staff] - Follow up with primary Forms: [employer] (Latvian)
[2018-03-25 16:34] VITALS: BP 165/78; PULSE 98; RESP 17; TEMP 98
== END 2018-03-25 16:11 | disposition home or self-care (01) ==
LOC: ED 14:30
DX: Z48.00 Encounter for change or removal of nonsurgical wound dressing (principal); E03.9 Hypothyroidism, unspecified; J44.9 Chronic obstructive pulmonary disease, unspecified; N18.6 End stage renal disease; Z99.2 Dependence on renal dialysis; E78.5 Hyperlipidemia, unspecified; E11.9 Type 2 diabetes mellitus without complications; Z87.891 Personal history of nicotine dependence; I27.20 Pulmonary hypertension, unspecified

== ENCOUNTER 2018-04-07 01:49 | Inpatient (IN) | payer MEDICARE, OTHER ==
[2018-04-07] MEDS ORDERED: Morphine 4 mg/ml ISec IVP STA ×2 (02:34→05:54)
--- NOTE | 2018-04-07 02:50 | ED PDOC ---
Arrival/HPI - General Chief Complaint: Lower Extremity Problem/Injury Time Seen by Provider: 04/07/18 02:31 Historian: Patient - History of Present Illness Narrative History of Present Illness (Text): 04/07/18 02:46 A 57 year old female, whose past medical history includes diabetes, pulmonary hypertension, hyperlipidemia, asthma, emphysema, PAD, COPD, CHF, DVT, CAD, CVA, seizure, ESRD on hemodialysis on //Thu (last full treatment this morning), GERD, gastritis, diverticulitis, anemia, hypothyroidism, arthritis, and anxiety , presents to the emergency department complaining of worsening right foot pain. Patient notes that she has been getting treatment for an open wound on her right foot and is due for an amputation. She presents to the emergency department for worsening pain for which she took Dilaudid with no relief of her symptoms. The patient denies fevers, chills, headache, dizziness, chest pain, shortness of breath, dyspnea on exertion, cough, abdominal pain, nausea, vomiting, diarrhea, back pain, neck pain, urinary/bowel changes, or any other complaint. PMD: Dr. Coffman Metal Buffer: Dr. Blanton Time/Duration: Other (Yesterday) Symptom Onset: Sudden Symptom Course: Unchanged Activities at Onset: Rest, Light Context: Home Past Medical History - Provider Review Nursing Documentation Reviewed: Yes - Past History Past History: No Previous - Infectious Disease Hx of Infectious Diseases: None - Tetanus Immunization Tetanus Immunization: Unknown - Cardiac Hx Pacemaker: No - Pulmonary Hx Respiratory Disorders: Yes Hx Asthma: Yes Hx Chronic Obstructive Pulmonary Disease (COPD): Yes Hx Emphysema: Yes Hx Pneumonia: Yes Hx Sleep Apnea: Yes Other/Comment: former smoker - Neurological Hx Paralysis: No - HEENT Hx HEENT Disorder: Yes (hard of hearing,RIGHT EAR DEAF) Other/Comment: tinnitus, - Renal Hx Renal Disorder: Yes Hx Dialysis: Yes (//Thu) Type of Dialysis Access: port R chest Date of Last Dialysis Treatment: 02/08/18 - Endocrine/Metabolic Hx Endocrine Disorders: Yes Hx Hypothyroidism: Yes - Hematological/Oncological Hx Blood Disorders: Yes Hx Blood Transfusions: Yes Hx Blood Transfusion Reaction: No - Integumentary Hx Dermatological Disorder: Yes (non healing sugical wound to right ankle) Other/Comment: multiple skin discolorations extremities, lg fatty tissue lump to left lower back,r great toe "ingrown toenail" redness swelling covered with bandaid pt did not want it touched, thick hard toenails both feet, right lower leg none healing surgical wound pt did not want dressing removed for assesment - Musculoskeletal/Rheumatological Hx Musculoskeletal Disorders: Yes (generalized chronic body pain) - Gastrointestinal Hx Gastrointestinal Disorders: Yes (chronic nausea, constipation,vomiting) Hx Crohn's Disease: No Hx Diverticulitis: Yes Hx Gall Bladder Disease: No Hx Gastroesophageal Reflux: Yes Hx Pancreatitis: No Other/Comment: diverticulosis, poor appetite and weight loss, hiatal hernia x2 - Genitourinary/Gynecological Hx Sexually Transmitted Diseases: No - Psychiatric Hx Emotional Abuse: No Hx Physical Abuse: No Hx Substance Use: No - Past Surgical History Past Surgical History: Unable to Obtain - Surgical History Hx Appendectomy: Yes Hx Cardiac Catheterization: Yes Hx Cholecystectomy: No Hx Coronary Stent: Yes Other/Comment: r av shunt not working, rch dialysis cath used for hd, tonsillectomy, inguinal hernia repair, r leg stent 05/2017, "stent to head 04/2017 , double artrial bypass both legs due to poor circulation 04/2017, skin graft to non healing r ankle wound 2017, 2 cysts on thyroid, thoracentesis x2, r av fistula not working, rcw hd cath working - Anesthesia Hx Anesthesia Reactions: No Hx Malignant Hyperthermia: No - Suicidal Assessment Feels Threatened In Home Enviroment: No Family/Social History - Physician Review Nursing Documentation Reviewed: Yes Family/Social History: No Known Family HX Smoking Status: Former Smoker Hx Alcohol Use: No Hx Substance Use: No Hx Substance Use Treatment: No Allergies/Home Meds Allergies/Adverse Reactions: Allergies ciprofloxacin Allergy (Verified 03/15/18 07:15) RASH hydralazine Allergy (Verified 03/15/18 07:15) RASH vomiting vancomycin Allergy (Verified 03/15/18 07:15) SHORTNESS OF BREATH palpitations ct dye Allergy (Uncoded 03/15/18 07:15) RASH Home Medications: Home Meds Medication Instructions Recorded Confirmed Lisinopril [Zestril] 40 mg PO DAILY 10/05/17 04/07/18 Sildenafil [Revatio] 20 mg PO Q8H 10/05/17 04/07/18 Clopidogrel [Plavix] 1 tab PO DAILY 11/18/17 04/07/18 NIFEdipine ER [Procardia XL] 30 tab PO DAILY 11/18/17 04/07/18 Labetalol [Trandate] 300 mg PO Q8H PRN 01/12/18 04/07/18 Levothyroxine [Synthroid] 75 mcg PO DAILY 01/12/18 04/07/18 Ondansetron ODT [Zofran ODT] 4 mg PO Q8H PRN 01/12/18 04/07/18 Pantoprazole [Protonix EC Tab] 40 mg PO DAILY 01/12/18 04/07/18 cloNIDine [Catapres] 0.1 mg PO TID 01/12/18 04/07/18 HYDROmorphone [Dilaudid] 2 mg PO Q4H PRN 03/23/18 04/07/18 Review of Systems - Physician Review All systems were reviewed & negative as marked: Yes - Review of Systems Constitutional: absent: Fevers Respiratory: absent: SOB, Cough Cardiovascular: absent: Chest Pain, MENDEZ Gastrointestinal: absent: Abdominal Pain, Stool Changes, Diarrhea, Nausea, Vomiting Genitourinary Female: absent: Urine Output Changes Musculoskeletal: Other (Right foot pain. ). absent: Back Pain, Neck Pain Neurological: absent: Headache, Dizziness Physical Exam - Physical Exam Narrative Physical Exam (Text): 04/07/18 02:51 Gen: VS reviewed, alert, well developed, well nourished, nontoxic, mild distress. ENT: Normal pharynx. Eye: EOMI, PERRL. Neck: No JVD, supple, no adenopathy. CV: Regular rate, regular rhythm, no rubs, no murmur, no gallops, S1, S2, pulses equal and strong. Dialysis access on right chest wall. Pulm: No distress, clear to auscultation, no wheeze, no rhonchi, breath sounds equal, no rales. Abd: Soft, nontender, no guarding, no rebound, no rigidity, normal bowel sounds. Ext: No edema. Right foot is cold, unable to palpate pulse, and erythematous. Skin: Good color, no rash, no cyanosis. Psych: Responds appropriately to questions, normal affect. Neuro: Oriented x 3, CN2-12 intact grossly, motor intact, sensation intact. Vital Signs Reviewed: Yes Vital Signs Temp Pulse Resp BP Pulse Ox 04/07/18 06:21 68 17 185/80 H 99 04/07/18 04:08 79 16 153/66 H 98 04/07/18 03:22 79 18 166/74 H 100 04/07/18 01:55 98.2 F 82 16 181/92 H 100 Temperature: Afebrile Blood Pressure: Hypertensive Pulse: Regular Respiratory Rate: Normal Appearance: Positive for: Well-Appearing, Non-Toxic, Comfortable Pain Distress: None Mental Status: Positive for: Alert and Oriented X 3 Medical Decision Making ED Course and Treatment: 04/07/18 02:52 Impression: A 57 year old female presents to the emergency department with a complaint of worsening right foot pain. Plan: -- EKG -- Chest X-ray -- Labs -- Blood Culture -- Morphine -- Reassess and disposition Progress Notes: 04/07/18 06:[address] coffman, patient to be admitted for likely surgical management of severe PAD and potential amputation of the right lower limb. consult to dr. rosmery weinberg and dr. hernandes. at this time will hold heparin as the patient's current presentation is a chronic process. - Lab Interpretations Lab Results: 04/07/18 02:50 04/07/18 02:50 Lab Results 04/07/18 02:50: pO2 136 H, VBG pH 7.39, VBG pCO2 57.0, VBG HCO3 34.5 H, VBG Total CO2 36.2 H, VBG O2 Sat (Calc) 99.0 H, VBG Base Excess 7.6 H, VBG Potassium 4.1, Sodium 138.0, Chloride 102.0, Glucose 153 H, Lactate 1.6, FiO2 21.0, Venous Blood Potassium 4.1 04/07/18 02:50: Blood Type O POSITIVE, Antibody Screen Negative, BBK History Checked Patient has bt 04/07/18 02:50: Sodium 142, Chloride 97 L, Potassium 4.1, Carbon Dioxide 31, Anion Gap 19, BUN 34 H, Creatinine 4.6 H, Est GFR ( Amer) 12, Est GFR ( Non-Af Amer) 10, Random Glucose 155 H, Calcium 7.9 L, Phosphorus 6.0 H, Magnesium 1.9, Total Bilirubin 0.5, AST 18, ALT 18, Alkaline Phosphatase 168 H, Total Protein 6.0, Albumin 3.7, Globulin 2.3, Albumin/Globulin Ratio 1.6 04/07/18 02:50: PT 12.3, INR 1.08, APTT 45.0 H 04/07/18 02:50: WBC 5.7, RBC 3.60, Hgb 9.9 L D, Hct 33.2 L, MCV 92.2, MCH 27.5, MCHC 29.8 L, RDW 16.9 H, Plt Count 167, MPV 10.3, Gran % 72.2 H, Lymph % (Auto) 17.8 L, [place] % (Auto) 7.0 H, Eos % (Auto) 2.3, Baso % (Auto) 0.7, Gran # 4.10, Lymph # (Auto) 1.0 L, [place] # (Auto) 0.4, Eos # (Auto) 0.1, Baso # (Auto) 0.04 I have reviewed the lab results: Yes - RAD Interpretation Narrative RAD Interpretations (Text): 04/07/18 03:29: Chest X-ray read and interpreted by me shows no focal infiltrate. No pneumothorax. No pleural effusion. Radiology Orders: 04/07/18 02:35 CHEST PORTABLE [RAD] Stat - EKG Interpretation EKG Interpretation (Text): 04/07/18 03:54 0241: sinus rhythm at 82 bpm, nml qrs, lvh with early repol Interpreted by ED Physician: Yes Type: 12 lead EKG - Medication Orders Current Medication Orders: Discontinued Medications Morphine Sulfate (Morphine) 8 mg IVP STAT STA Stop: 04/07/18 02:35 Last Admin: 04/07/18 03:03 Dose: 8 mg MAR Pain Assessment Document 04/07/18 03:03 CNR (Rec: 04/07/18 03:03 CNR [id number]) Pain Reassessment Is this a pain reassessment? No IVP Administration Document 04/07/18 03:03 CNR (Rec: 04/07/18 03:03 CNR [id number]) Charges for Administration # of IVP Administrations 1 Morphine Sulfate (Morphine) 6 mg IVP STAT STA Stop: 04/07/18 05:55 Last Admin: 04/07/18 06:05 Dose: 6 mg MAR Pain Assessment Document 04/07/18 06:05 CNR (Rec: 04/07/18 06:05 CNR [id number]) Pain Reassessment Is this a pain reassessment? Yes Location Left, Right or Bilateral Right Upper or Lower Lower Pain Location Body Site Leg Description Description Constant IVP Administration Document 04/07/18 06:05 CNR (Rec: 04/07/18 06:05 CNR [id number]) Charges for Administration # of IVP Administrations 1 - Scribe Statement The provider has reviewed the documentation as recorded by the Scribe Eileen Norton Provider Scribe Attestation: All medical record entries made by the Scribe were at my direction and personally dictated by me. I have reviewed the chart and agree that the record accurately reflects my personal performance of the history, physical exam, medical decision making, and the department course for this patient. I have also personally directed, reviewed, and agree with the discharge instructions and disposition. Disposition/Present on Arrival - Present on Arrival Any Indicators Present on Arrival: No History of DVT/PE: No History of Uncontrolled Diabetes: No Urinary Catheter: No History of Decub. Ulcer: No History Surgical Site Infection Following: None - Disposition Have Diagnosis and Disposition been Completed?: Yes Diagnosis: Peripheral vascular disease Disposition: HOSPITALIZED Disposition Time: 06:38 Patient Plan: Admission Condition: FAIR Forms: [email or web address] (Azeri)
[2018-04-07 03:12] LABS: BASO # 0.04 K/mm3 (0.0-2.0); BASO % 0.7 % (0.0-3.0); EOS # 0.1 (0.0-0.7); EOS % 2.3 % (1.5-5.0); GRAN # 4.1 (1.4-6.5); GRAN % 72.2 % (50.0-68.0); LYMPH % 17.8 % (22.0-35.0); MEAN CELL VOLUME 92.2 fl (80.0-105.0); MEAN CORPUSCULAR HEMOGLOBIN 27.5 pg (25.0-35.0); MEAN CORPUSCULAR HGB CONC 29.8 g/dl (31.0-37.0); MEAN PLATELET VOLUME 10.3 fl (7.0-11.0); MONO # 0.4 (0.1-0.6); RBC 3.6 10^6/uL (3.5-6.1); RED CELL DISTRIBUTION WIDTH 16.9 % (11.5-14.5); WHITE BLOOD COUNT 5.7 10^3/ul (4.5-11.0)
[2018-04-07 03:17] LABS: HEMOGLOBIN 9.9 g/dL (12.0-16.0)
[2018-04-07 03:19] LABS: INR 1.08; PROTHROMBIN TIME 12.3 SECONDS (9.4-12.5)
[2018-04-07 03:35] LABS: ALB/GLOB RATIO 1.6 (1.1-1.8); ALBUMIN 3.7 g/dL (3.0-4.8); CALCIUM 7.9 mg/dL (8.4-10.5)
[2018-04-07 03:38] LABS: VENOUS BLOOD GAS BASE EXCESS 7.6 mmol/L (0.0-2.0); VENOUS BLOOD GAS PO2 136 mm/Hg (30-55); VENOUS BLOOD PH 7.39 (7.32-7.43)
[2018-04-07] MEDS ORDERED: Morphine 2 mg/ml ISec IVP SCH (08:58)
--- NOTE | 2018-04-07 09:00 | RAD ---
Date of service: 04/07/2018 HISTORY: screening, chf COMPARISON: 03/16/2018 FINDINGS: LUNGS: No active pulmonary disease. PLEURA: No significant pleural effusion identified, no pneumothorax apparent. CARDIOVASCULAR: Normal. OSSEOUS STRUCTURES: No significant abnormalities. VISUALIZED UPPER ABDOMEN: Normal. OTHER FINDINGS: Right-sided dialysis catheter and Port-A-Cath IMPRESSION: No active disease.
--- NOTE | 2018-04-07 09:34 | CARD ---
APPROVED REPORT Date of service: 04/07/2018 EKG Measurement Heart [id number] <Conclusion> Normal sinus rhythm Possible Left atrial enlargement Left ventricular hypertrophy with repolarization abnormality Prolonged QT Abnormal ECG
[2018-04-07] MEDS: Morphine 2 mg/ml ISec IVP PRN ×3 (10:05→23:28)
[2018-04-07] MEDS ORDERED: NIFEdipine 90 mg ER Tab PO SCH (11:45)
[2018-04-07] MEDS: Albuterol 0.5% Inhal Sol (2.5 mg/0.5 ml) UD IH SCH ×2 (15:22→20:45)
[2018-04-07] MEDS: Levothyroxine 75 MCG TAB PO SCH (15:42)
[2018-04-07] MEDS: Sildenafil 20 MG TAB PO SCH (15:42)
[2018-04-07] MEDS: Morphine 15 mg SR Tab PO SCH ×2 (15:42→20:45)
[2018-04-07] MEDS: Pantoprazole 40 mg EC Tab PO SCH (15:42)
--- NOTE | 2018-04-07 20:03 | CP.PCM.CON ---
History of Present Illness - History of Present Illness History of Present Illness: Surgery Consult: Dr. Hutson Pt is a 57F with multiple co-morbidities & extensive PMHx which includes DM, ESRD on HD (TThSat), CHF, CAD, PAD, multiple CVAs, seizures, pulmonary HTN, HLD , asthma, COPD 2/2 chronic smoking, GERD, gastritis, diverticulosis, anemia, hypothyroidism & anxiety/depression who presents to [facility] [place] with complaints of worsening R foot/leg pain. Pt states she has chronic PVD and has been having pain in her legs on/off for many years. She admits to having bypass surgery at [facility] last April 2017 for the "circulation in my legs." She states during that operation her "heart had stopped" & she was in a "coma" for several days. After recovering she reports some improvement in her symptoms, however she ended up getting an ulcer on her R medial leg for which she was following up with Dr. Blanton who did debridements & skin graft. Pt reports that over the last week the pain in her R lower leg/foot has worsened & she has been unable to walk. She admits to using a walker prior to this, however has only been able to use a wheelchair since. She also admits to numbness & tingling in her LLE. Pt states she saw Dr. Lucio Thomas & Dr. Blanton this past week & was told that she will likely need an amputation of her R leg due to the severity of her PVD. Surgery has been consulted to evaluate. Currently, pt is resting in bed. Continues to have pain in her R leg especially around the heel where a new ulcer has been forming. She admits to numbness/ tingling in both LE. Denies vomiting, fevers, chills, chest pain or SOB. PMHx: as stated above PSHx: lower extremity bypass, debridements/skin graft LLE wound, R arm failed AVFs, R IJ HD cath, appendectomy, inguinal hernia repair, SocialHx: former smoker, denies EtOH/drugs ALL: as noted in chart Review of Systems - Review of Systems All systems: reviewed and no additional remarkable complaints except (as per HPI ) Past Patient History - Infectious Disease Hx of Infectious Diseases: None - Tetanus Immunizations Tetanus Immunization: Unknown - Past Medical History & Family History Past Medical History?: Yes - Past Social History Smoking Status: Former Smoker Drugs: Denies - CARDIAC Hx Congestive Heart Failure: Yes Hx Heart Attack: Yes Hx Hypercholesterolemia: Yes Hx Pacemaker: No - PULMONARY Hx Respiratory Disorders: Yes Hx Asthma: Yes Hx Chronic Obstructive Pulmonary Disease (COPD): Yes Hx Emphysema: Yes Hx Pneumonia: Yes Hx Sleep Apnea: Yes Other/Comment: former smoker - NEUROLOGICAL HX Cerebrovascular Accident: Yes Hx Paralysis: No Hx Seizures: Yes - HEENT Other/Comment: tinnitus, - RENAL Hx Chronic Kidney Disease: Yes Hx Dialysis: Yes (T//Sat) Type of Dialysis Access: port R chest Date of Last Dialysis Treatment: 04/07/18 - ENDOCRINE/METABOLIC Hx Endocrine Disorders: Yes Hx Hypothyroidism: Yes - HEMATOLOGICAL/ONCOLOGICAL Hx Blood Disorders: Yes Hx Blood Transfusions: Yes Hx Blood Transfusion Reaction: No - INTEGUMENTARY Hx Dermatological Problems: Yes (non healing sugical wound to right ankle) - MUSCULOSKELETAL/RHEUMATOLOGICAL Hx Musculoskeletal Disorders: Yes (generalized chronic body pain) - GASTROINTESTINAL Hx Gastrointestinal Disorders: Yes (chronic nausea, constipation,vomiting) Hx Crohn's Disease: No Hx Diverticulitis: Yes Hx Gall Bladder Disease: No Hx Gastroesophageal Reflux: Yes Hx Pancreatitis: No Other/Comment: diverticulosis, poor appetite and weight loss, hiatal hernia x2 - GENITOURINARY/GYNECOLOGICAL Hx Sexually Transmitted Disorders: No - PSYCHIATRIC Hx Emotional Abuse: No Hx Physical Abuse: No Hx Substance Use: No - SURGICAL HISTORY Hx Angioplasty: Yes (R external Iliac with stent, R profunda femoral angioplasty (03/2017)) Hx Appendectomy: Yes Hx Cardiac Catheterization: Yes Hx Section: Yes Hx Cholecystectomy: No Hx Coronary Stent: Yes Hx Tonsillectomy: Yes Hx Vascular Surgery: Yes Hx Vascular Access Device: Yes - ANESTHESIA Hx Anesthesia: Yes Hx Malignant Hyperthermia: No Meds Allergies/Adverse Reactions: Allergies Allergy/AdvReac Type Severity Reaction Status Date / Time ciprofloxacin Allergy RASH Verified 03/15/18 07:15 hydralazine Allergy RASH Verified 03/15/18 07:15 vancomycin Allergy SHORTNESS Verified 03/15/18 07:[address] dye Allergy RASH Uncoded 03/15/18 07:15 - Medications Medications: Current Medications Albuterol Sulfate (Albuterol 0.5% Inhal Michelle (2.5 Mg/0.5 Ml) Ud) 2.5 mg IH Q6 ZANA Last Admin: 08/01/18 15:22 Dose: 2.5 mg Amlodipine Besylate (Norvasc) 10 mg PO DAILY [facility] Last Admin: 04/07/18 15:21 Dose: 10 mg Atorvastatin Calcium (Lipitor) 20 mg PO HS [facility] Carvedilol (Coreg) 12.5 mg PO BID [facility] Last Admin: 04/07/18 18:22 Dose: 12.5 mg Clonidine HCl (Catapres) 0.1 mg PO TID [facility] Last Admin: 04/07/18 18:22 Dose: 0.1 mg Clopidogrel Bisulfate (Plavix) 75 mg PO DAILY [facility] Last Admin: 04/07/18 15:21 Dose: 75 mg Labetalol HCl (Trandate) 300 mg PO Q8H PRN PRN Reason: HTN Levetiracetam (Keppra) 500 mg PO BID [facility] Last Admin: 04/07/18 18:22 Dose: 500 mg Levothyroxine Sodium (Synthroid) 75 mcg PO DAILY [facility] Last Admin: 04/07/18 15:42 Dose: Not Given Lisinopril (Zestril) 40 mg PO DAILY [facility] Last Admin: 04/07/18 15:42 Dose: Not Given Morphine Sulfate (Morphine) 5 mg IVP Q4 PRN PRN Reason: Pain, moderate (4-7) Last Admin: 04/07/18 18:22 Dose: 5 mg Morphine Sulfate (Morphine Extended Release Tab) 15 mg PO Q12 [facility] Last Admin: 04/07/18 15:42 Dose: Not Given Nifedipine (Procardia Xl) 30 mg PO DAILY [facility] Pantoprazole Sodium (Protonix Ec Tab) 40 mg PO DAILY [facility] Last Admin: 04/07/18 15:42 Dose: Not Given Sildenafil Citrate (Revatio) 20 mg PO Q8H [facility] Last Admin: 04/07/18 15:42 Dose: Not Given Physical Exam - Constitutional Appears: No Acute Distress - Eye Exam Eye Exam: Normal appearance - ENT Exam ENT Exam: Mucous Membranes Moist - Neck Exam Additional comments: R portacath in place - Respiratory Exam Respiratory Exam: NORMAL BREATHING PATTERN - Cardiovascular Exam Cardiovascular Exam: RRR - GI/Abdominal Exam GI & Abdominal Exam: Soft. absent: Guarding, Rebound, Tenderness - Extremities Exam Additional comments: RLE with erythema around the foot & toes, cold to touch, ttp, non-healing ulcer noted on R medial aspect of lower leg & pressure ulcer with erythema noted around the heel. No palpable DP, PT or popliteal pulses, 2+ femoral pulse, no doppler signals appreciated. +sensation to light touch. LLE with no palpable pulses but biphasic doppler signals - Neurological Exam Neurological exam: Alert, Oriented x3 - Skin Skin Exam: Dry, Warm Results - Vital Signs Recent Vital Signs: Last Vital Signs Temp 98.0 F 04/07/18 16:00 Pulse 70 04/07/18 15:22 Resp 19 04/07/18 16:00 BP 190/70 H 04/07/18 18:22 Pulse Ox 99 04/07/18 16:00 - Labs Result Diagrams: 04/07/18 02:50 04/07/18 02:50 Labs: Laboratory Results - last 24 hr 04/07/18 11:43 POC Glucose (mg/dL) 85 Assessment & Plan - Assessment and Plan (Free Text) Assessment: 57F with multiple co-morbidities & severe PVD s/p angioplasty, stenting & bypass. Now with nonhealing RLE wounds, presenting for possible amputation Plan: - pt to be seen by Dr. Thomas in AM; will f/u recs - Podiatry on board - will discuss need for repeat vascular workup with Dr. Thomas & Dr. Hutson and discuss options with pt regarding amputation Janet
--- NOTE | 2018-04-07 21:10 | HP ---
Copied To: Brittany Coffman MD Attending MD: Brittany Coffman MD HISTORY OF PRESENT ILLNESS: Patient is 57 years old, came to emergency room because of increasing intractable right foot and right leg pain. States pain is unbearable. No medication is working, so she saw Dr. Blanton for her foot ulcer, who advised her to come to emergency room for possible BKA. PAST MEDICAL HISTORY: She has significant past medical history of: 1. Uncontrolled hypertension. 2. End-stage renal disease, on hemodialysis. 3. Gastroesophageal reflux disease. 4. Peripheral vascular disease, status post angioplasty. 5. Right carotid angioplasty and stent placement. ALLERGIES: SHE IS ALLERGIC TO CIPRO, HYDRALAZINE, VANCOMYCIN, AND CONTRAST DYE. MEDICATIONS AT HOME: She is on amlodipine 10 mg daily, Revatio 20 mg every 8 hours, Protonix 40 daily, Zofran, nifedipine 30 mg daily, lisinopril 40 mg daily, levothyroxine 75 mcg daily, labetalol 300 daily, Plavix 75 mg daily, Coreg 12.5 twice a day, Lipitor 20 mg daily, Keppra 500 twice a day, Catapres 0.1 three times a day. SOCIAL HISTORY: She used to be heavy smoker in the past, quit couple of months ago. Currently, she lives with her son. PHYSICAL EXAMINATION: GENERAL: She looks in pain. VITAL SIGNS: She is afebrile, pulse 69, respiration 18, blood pressure 175/86. LUNGS: Bilateral fair airflow. No rhonchi or crackle. HEART: S1 and S2 audible. ABDOMEN: Soft, nontender. No rebound, no guarding. NEUROLOGIC: She is awake, alert, oriented, communicative. EXTREMITIES: She has ulcer on the right ankle and erythema of right foot. LABORATORY DATA: WBC 5.7, hemoglobin 9.9, hematocrit 33.2, platelet 167, PT 12.3, INR . Chemistry: Sodium 142, potassium 4.1, chloride 97, CO2 of 31, BUN 34, creatinine 4.6, blood sugar of 155, calcium 7.8, phosphorus 6, alkaline phosphatase 169. ASSESSMENT: Severe peripheral vascular disease, right foot intractable pain, hypertension, hyperlipidemia, end-stage renal disease on hemodialysis. PLAN: We will restart patient on her usual medications. Consult Dr. Smith, consult Dr. Lucio Thomas. We will consult Dr. Blanton. Analgesic as needed. We will follow up patient in a.m. Brittany Coffman MD
--- NOTE | 2018-04-07 21:20 | CON ---
Copied To: Tamanna Smith MD Attending MD: Tamanna Smith MD DATE: 04/07/2018 REASON FOR CONSULTATION: ESRD, anemia. HISTORY OF PRESENT ILLNESS: A 57-year-old lady known to me from outpatient evaluation. The patient is presenting to the emergency room with complaints of severe pain in her right foot and redness of the right foot. Nonhealing ulcers on the right lower leg. The patient has a history of peripheral vascular disease. She had one nonhealing ulcer. Now she has another one. She complains of severe, unbearable pain in her foot. She denies any fever. She denies any chills. She denies any chest tightness. In the emergency room, she is found to have a blood pressure of 175/86, heart rate 69. She is afebrile. PAST MEDICAL AND SURGICAL HISTORY: Severe uncontrolled hypertension, ESRD, anemia of chronic kidney disease, secondary hyperparathyroidism, COPD, peripheral vascular disease, CAD, gastritis, GERD, hypothyroidism. FAMILY HISTORY: Noncontributory. SOCIAL HISTORY: Ex-smoker, no alcohol use, no IV drug abuse. ALLERGIES: CIPROFLOXACIN, HYDRALAZINE, VANCOMYCIN. MEDICATIONS AT HOME: Lisinopril 40, Revatio 20 every 8 hours, Plavix 75, nifedipine ER 30, labetalol 300 every 8 hours, Synthroid 75, Zofran, Protonix, clonidine 0.1 t.i.d., Dilaudid. REVIEW OF SYSTEMS: All systems are reviewed, pertinent positives as mentioned in the history of presenting illness, rest unremarkable. PHYSICAL EXAMINATION: GENERAL: Middle-aged lady sitting in bed in the ER. VITAL SIGNS: Blood pressure 175/86, heart rate 69, respiratory rate 18, temperature 98.1. HEENT: Normocephalic, atraumatic, positive pallor. NECK: Supple, no JVD. LUNGS: Bilateral equal air entry, bilateral equal expansion, no rales. CARDIAC: S1 and S2, regular rate and rhythm, no murmur, no rub. ABDOMEN: Soft, nondistended, nontender. EXTREMITIES: Erythema of the right foot, nonhealing ulcer on the medial aspect and the lateral aspect of the right lower leg. LABORATORY DATA: WBC count 5.7, hemoglobin 9.9, hematocrit 33, platelets 167. Sodium 142, potassium 4.1, chloride 97, CO2 31, BUN 34, creatinine 4.6, glucose 155, calcium 7.9, phosphorus 6, magnesium 1.9, albumin 3.7. ASSESSMENT AND PLAN: 1. Ischemic ulcers, severe pain. 2. Peripheral vascular disease. 3. Coronary artery disease. 4. End stage renal disease. 5. Anemia of chronic kidney disease. 6. Severe hypertension. 7. Hyperphosphatemia. PLAN: 1. Case was discussed with Dr. Lucio Thomas. Nonrevascularizable disease. We will likely need below knee amputation. 2. Restart outpatient antihypertensives. 3. Continue phosphate binders. 4. Next dialysis will be tomorrow. Thank you for the courtesy of this consultation. Tamanna Smith MD
[2018-04-07 23:55] VITALS: BMI 21.6
[2018-04-07] MEDS ORDERED: Pneumococcal 23-Valent Vaccine IM ONE (23:56)
[2018-04-08] MEDS: Albuterol 0.5% Inhal Sol (2.5 mg/0.5 ml) UD IH SCH ×4 (01:05→19:49)
[2018-04-08] MEDS: Morphine 15 mg SR Tab PO SCH ×3 (04:29→21:02)
[2018-04-08] MEDS: Sildenafil 20 MG TAB PO SCH ×3 (04:30→20:38)
[2018-04-08] MEDS: Morphine 2 mg/ml ISec IVP PRN ×2 (06:31→17:10)
--- NOTE | 2018-04-08 08:03 | CP.PCM.PN ---
Subjective - Date & Time of Evaluation Date of Evaluation: 04/09/18 Time of Evaluation: 06:19 - Subjective Subjective: General Surgery Note for Dr. Lopez Patient seen and examined at bedside. No acute event overnight. Patient reports right lower extremity pain. She denies fever/chills. She is tolerating diet. She states she knows that she needs amputation but is nervous. Patient is willing to go through with procedure if its necessary. Objective - Vital Signs/Intake and Output Vital Signs (last 24 hours): Temp Pulse Resp BP Pulse Ox 98.1 F 70 18 177/63 H 100 04/08/18 06:00 04/08/18 06:00 04/08/18 06:00 04/08/18 06:00 04/08/18 06:00 - Medications Medications: Current Medications Albuterol Sulfate (Albuterol 0.5% Inhal Michelle (2.5 Mg/0.5 Ml) Ud) 2.5 mg IH Q6 [facility] Last Admin: 04/08/18 01:05 Dose: 2.5 mg Amlodipine Besylate (Norvasc) 10 mg PO DAILY [facility] Last Admin: 04/07/18 15:21 Dose: 10 mg Atorvastatin Calcium (Lipitor) 20 mg PO HS [facility] Last Admin: 04/08/18 04:29 Dose: Not Given Carvedilol (Coreg) 12.5 mg PO BID [facility] Last Admin: 04/07/18 18:22 Dose: 12.5 mg Clonidine HCl (Catapres) 0.1 mg PO TID [facility] Last Admin: 04/07/18 18:22 Dose: 0.1 mg Clopidogrel Bisulfate (Plavix) 75 mg PO DAILY [facility] Last Admin: 04/07/18 15:21 Dose: 75 mg Labetalol HCl (Trandate) 300 mg PO Q8H PRN PRN Reason: HTN Levetiracetam (Keppra) 500 mg PO BID [facility] Last Admin: 04/07/18 18:22 Dose: 500 mg Levothyroxine Sodium (Synthroid) 75 mcg PO DAILY [facility] Last Admin: 04/07/18 15:42 Dose: Not Given Lisinopril (Zestril) 40 mg PO DAILY [facility] Last Admin: 04/07/18 15:42 Dose: Not Given Morphine Sulfate (Morphine) 5 mg IVP Q4 PRN PRN Reason: Pain, moderate (4-7) Last Admin: 04/08/18 06:31 Dose: 5 mg Morphine Sulfate (Morphine Extended Release Tab) 15 mg PO Q12 [facility] Last Admin: 04/08/18 04:29 Dose: Not Given Nifedipine (Procardia Xl) 30 mg PO DAILY [facility] Pantoprazole Sodium (Protonix Ec Tab) 40 mg PO DAILY [facility] Last Admin: 04/07/18 15:42 Dose: Not Given Sildenafil Citrate (Revatio) 20 mg PO Q8H [facility] Last Admin: 04/08/18 04:30 Dose: Not Given - Labs Labs: PT 12.3 SECONDS (9.4-12.5) 04/07/18 02:50 INR 1.08 04/07/18 02:50 APTT 45.0 Seconds (25.1-36.5) H 04/07/18 02:50 - Additional Findings Additional findings: - Constitutional Appears: No Acute Distress - Eye Exam Eye Exam: Normal appearance - ENT Exam ENT Exam: Mucous Membranes Moist - Neck Exam Additional comments: R portacath - Respiratory Exam Respiratory Exam: NORMAL BREATHING PATTERN - Cardiovascular Exam Cardiovascular Exam: RRR - GI/Abdominal Exam GI & Abdominal Exam: Soft. absent: Guarding, Rebound, Tenderness - Extremities Exam Additional comments: RLE with erythema around the foot & toes, ttp, non-healing ulcer noted on R medial aspect of lower leg & pressure ulcer with erythema noted around the heel. No palpable DP, PT or popliteal pulses, 2+ femoral pulse, no doppler signals appreciated. +sensation to light touch. LLE with no palpable pulses but biphasic doppler signals - Neurological Exam Neurological exam: Alert, Oriented x3 - Skin Skin Exam: Dry, Warm Assessment and Plan - Assessment and Plan (Free Text) Assessment: 57F with multiple co-morbidities & severe PVD s/p angioplasty, stenting & bypass presents with nonhealing RLE wounds Plan: -Plan for bka vs aka on Thursday in OR -Medical optimization -f/u vascular studies -f/u Podiatry recommendations - Further recommendations as per Dr.Simpson Ministerio Camacho PGY2
[2018-04-08] MEDS: Pantoprazole 40 mg EC Tab PO SCH (11:02)
[2018-04-08] MEDS: NIFEdipine 30 mg ER Tab PO SCH (11:02)
[2018-04-08] MEDS: Levothyroxine 75 MCG TAB PO SCH (11:02)
[2018-04-08 12:31] LABS: HEPATITIS B SURFACE AG Negative (NEGATIVE)
--- NOTE | 2018-04-08 12:31 | CP.PCM.CON ---
<Trevor De La Rosa - Last Filed: 04/08/18 12:36> History of Present Illness - History of Present Illness History of Present Illness: Consult Note for Dr. Blanton 57F with PMH DM, ESRD on HD (TThSat), CHF, CAD, PAD, multiple CVAs, seizures, pulmonary HTN, HLD, asthma, COPD 2/2 chronic smoking, GERD, gastritis, diverticulosis, anemia, hypothyroidism & anxiety/depression seen in dialysis for RLE wounds and left heel pain. 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 Patient states that the pain to her left heel has only been bothering her for the last few days but has been getting worse in nature. Patient is AAO x 3 at time of visit. Denies any further LE problems at this time. Patient states that she came to hospital at request of Dr. Blanton who is recommending BKA of RLE. Denies any recent N/V/F/C/CP/SOB/D Review of Systems - Review of Systems All systems: reviewed and no additional remarkable complaints except Review of Systems: as per HPI Past Patient History - Infectious Disease Hx of Infectious Diseases: None - Tetanus Immunizations Tetanus Immunization: Unknown - Past Medical History & Family History Past Medical History?: Yes - Past Social History Smoking Status: Former Smoker - CARDIAC Hx Cardiac Disorders: Yes (mi x2 02/2017 pericardial window) Hx Angina: Yes Hx Cardia Arrhythmia: Yes Hx Congestive Heart Failure: Yes Hx Hypercholesterolemia: Yes Hx Hypertension: Yes Hx Pacemaker: No Hx Peripheral Edema: Yes (right foot +2 pitting) Hx Peripheral Vascular Disease: Yes (pain numbness when ambulating) Other/Comment: cardiomyopathy,pad, r arm fistula, right chest udall cath, dvt, cold numb extremities - PULMONARY Hx Respiratory Disorders: Yes Hx Asthma: Yes Hx Chronic Obstructive Pulmonary Disease (COPD): Yes Hx Emphysema: Yes Hx Pneumonia: Yes Hx Sleep Apnea: Yes Other/Comment: former smoker - NEUROLOGICAL Hx Neurological Disorder: Yes HX Cerebrovascular Accident: Yes Hx Migraine: Yes Hx Seizures: Yes - HEENT Hx HEENT Problems: Yes 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) Other/Comment: tinnitus, - RENAL Date of Last Dialysis Treatment: 03/09/18 - ENDOCRINE/METABOLIC Hx Endocrine Disorders: Yes Hx Hypothyroidism: Yes - HEMATOLOGICAL/ONCOLOGICAL Hx Blood Disorders: Yes Hx Anemia: Yes (blood transfusions) - INTEGUMENTARY Hx Dermatological Problems: Yes (non healing sugical wound to right ankle) Other/Comment: inner right ankle wounddry brown had 2 skin grafts, outer back of r foot red/purple closed wound with 2 small dry red areas painful, r foot swollen +2 pitting edema, r ft cold to touch, multiple skin discolorations to both arms, skin discolorations ble, fatty tumor left back r inner ankle wound healing, thick toenails both feet - MUSCULOSKELETAL/RHEUMATOLOGICAL Hx Falls: Yes (past) - GASTROINTESTINAL Hx Gastrointestinal Disorders: Yes (chronic nausea, constipation,vomiting) Hx Crohn's Disease: No Hx Diverticulitis: Yes Hx Gall Bladder Disease: No Hx Gastroesophageal Reflux: Yes Hx Pancreatitis: No Other/Comment: diverticulosis, poor appetite and weight loss, hiatal hernia x2 - GENITOURINARY/GYNECOLOGICAL Hx Sexually Transmitted Disorders: No - PSYCHIATRIC Hx Substance Use: No - SURGICAL HISTORY Hx Surgeries: Yes (tonsillectomy) Hx Appendectomy: Yes Hx Cardiac Catheterization: Yes Hx Cholecystectomy: No Hx Coronary Stent: Yes Other/Comment: c section, 04/2017 double bypass to both legs, r av shunt not working using rcw hd cath for hd, r leg stent 05/2017, stent to head 04/2017, skin graft to right ankle wound 2017, 2 cysts on thyroid, thoracenthesis x 2 - ANESTHESIA Hx Anesthesia: Yes Hx Malignant Hyperthermia: No Meds Allergies/Adverse Reactions: Allergies Allergy/AdvReac Type Severity Reaction Status Date / Time ciprofloxacin Allergy RASH Verified 03/15/18 07:15 hydralazine Allergy RASH Verified 03/15/18 07:15 vancomycin Allergy SHORTNESS Verified 03/15/18 07:[address] dye Allergy RASH Uncoded 03/15/18 07:15 - Medications Medications: Current Medications Albuterol Sulfate (Albuterol 0.5% Inhal Michelle (2.5 Mg/0.5 Ml) Ud) 2.5 mg IH Q6 [facility] Last Admin: 04/08/18 11:41 Dose: Not Given Amlodipine Besylate (Norvasc) 10 mg PO DAILY [facility] Last Admin: 04/08/18 11:02 Dose: Not Given Atorvastatin Calcium (Lipitor) 20 mg PO HS [facility] Last Admin: 04/08/18 04:29 Dose: Not Given Carvedilol (Coreg) 12.5 mg PO BID [facility] Last Admin: 04/08/18 11:01 Dose: Not Given Clonidine HCl (Catapres) 0.1 mg PO TID [facility] Last Admin: 04/08/18 11:01 Dose: Not Given Clopidogrel Bisulfate (Plavix) 75 mg PO DAILY [facility] Last Admin: 04/08/18 11:02 Dose: Not Given Labetalol HCl (Trandate) 300 mg PO Q8H PRN PRN Reason: HTN Levetiracetam (Keppra) 500 mg PO BID [facility] Last Admin: 04/08/18 11:02 Dose: Not Given Levothyroxine Sodium (Synthroid) 75 mcg PO DAILY [facility] Last Admin: 04/08/18 11:02 Dose: Not Given Lisinopril (Zestril) 40 mg PO DAILY [facility] Last Admin: 04/08/18 11:02 Dose: Not Given Morphine Sulfate (Morphine) 5 mg IVP Q4 PRN PRN Reason: Pain, moderate (4-7) Last Admin: 04/08/18 06:31 Dose: 5 mg Morphine Sulfate (Morphine Extended Release Tab) 15 mg PO Q12 [facility] Last Admin: 04/08/18 11:02 Dose: Not Given Nifedipine (Procardia Xl) 30 mg PO DAILY [facility] Last Admin: 04/08/18 11:02 Dose: Not Given Ondansetron HCl (Zofran Inj) 4 mg IVP Q6H PRN PRN Reason: Nausea/Vomiting Last Admin: 04/08/18 08:42 Dose: 4 mg Pantoprazole Sodium (Protonix Ec Tab) 40 mg PO DAILY [facility] Last Admin: 04/08/18 11:02 Dose: Not Given Sildenafil Citrate (Revatio) 20 mg PO Q8H [facility] Last Admin: 04/08/18 11:40 Dose: Not Given Physical Exam - Constitutional Appears: Well, Non-toxic, No Acute Distress - Extremities Exam Additional comments: LE focused exam: Vasc: DP/PT pulses palpable 2/4 B/L. Skin temperature warm to warm from proximal to distal. CFT < 3 seconds to all digits B/L. No pedal edema noted. Derm: Superficial uceration secondary to calciphylaxis seen on medial calf of right leg measuring roughly 2.0 cm x 1.3 cm x 0.1 cm with granular wound base and hyperkeratotic wound borders. No woo-wound erythema, no malodor, no purulence, no tunneling, tracking, undermining, probe to bone or fluctuance. No maceration, xerosis, abnormal pigmentation or abnormal growths noted to b/l LE. Posterior right heel wound measuring roughly 0.5 cm x 0.5 cm x 0.1 cm noted. Wound base is fibronecrotic with no drainage, malodor, erythema or other clinical signs of infection. No tracking, tunneling or undermining. No probe to bone Neuro: Epicritic and protective sensation grossly intact B/L. Ortho: Mild-moderate tenderness to palpation of right leg ulceration. Pain with palpation to left heel - Neurological Exam Neurological exam: Alert, Oriented x3 - Psychiatric Exam Psychiatric exam: Normal Affect, Normal Mood Results - Vital Signs Recent Vital Signs: Last Vital Signs Temp 98.1 F 04/08/18 06:00 Pulse 70 04/08/18 06:00 Resp 18 04/08/18 06:00 BP 177/63 H 04/08/18 06:00 Pulse Ox 100 04/08/18 06:00 - Labs Result Diagrams: 04/07/18 02:50 04/07/18 02:50 Labs: Laboratory Results - last 24 hr 04/07/18 11:43 POC Glucose (mg/dL) 85 Assessment & Plan - Assessment and Plan (Free Text) Assessment: 57F seen for ulcerations of right LE and left heel pain secondary to calciphylaxis Plan: Patient seen and evaluated with Dr. Blanton Afebrile, absent leukocytosis Consult order for Dr. Hutson placed with recommendation for BKA of RLE Order placed for topical lidocaine B/l heels and all wounds dressed with optifoam Multipodus boots ordered to be worn at all times in bed No plan for podiatric surgical intervention at this time Podiatry will continue to follow while patient in house - Date & Time Date: 04/08/18 Time: 12:39 <Wendy Blanton - Last Filed: 04/14/18 12:25> Meds - Medications Medications: Current Medications Albuterol Sulfate (Albuterol 0.083% Inhal Michelle (2.5 Mg/3 Ml) Ud) 2.5 mg IH [id number] [facility] Last Admin: 04/14/18 08:25 Dose: 2.5 mg Alprazolam (Xanax) 0.25 mg PO HS [facility] PRN Reason: Protocol Stop: 04/21/18 22:01 Amlodipine Besylate (Norvasc) 10 mg PO DAILY [facility] Last Admin: 04/13/18 10:00 Dose: 10 mg Aspirin (Ecotrin) 81 mg PO DAILY [facility] Last Admin: 04/14/18 09:33 Dose: Not Given Atorvastatin Calcium (Lipitor) 20 mg PO HS [facility] Last Admin: 04/13/18 21:00 Dose: 20 mg Calcium Acetate (Phoslo) 667 mg PO WM [facility] Last Admin: 04/14/18 08:13 Dose: 667 mg Carvedilol (Coreg) 12.5 mg PO BID [facility] Last Admin: 04/14/18 09:33 Dose: Not Given Clonidine HCl (Catapres) 0.1 mg PO TID [facility] Last Admin: 04/14/18 09:33 Dose: Not Given Clopidogrel Bisulfate (Plavix) 75 mg PO DAILY [facility] Last Admin: 04/09/18 09:14 Dose: 75 mg Diphenhydramine HCl (Benadryl Maximum Strength 1%) 0 ea TOP Q6H PRN PRN Reason: Itching / Pruritus Last Admin: 04/12/18 09:02 Dose: 1 applic Heparin Sodium (Porcine) (Heparin) 5,000 units SC Q12 [facility] PRN Reason: Protocol Last Admin: 04/13/18 23:32 Dose: 5,000 units Labetalol HCl (Trandate) 300 mg PO Q8H PRN PRN Reason: HTN Levetiracetam (Keppra) 500 mg PO BID [facility] Last Admin: 04/13/18 17:24 Dose: 500 mg Levothyroxine Sodium (Synthroid) 75 mcg PO DAILY [facility] Last Admin: 04/13/18 10:00 Dose: 75 mcg Lisinopril (Zestril) 40 mg PO DAILY [facility] Last Admin: 04/13/18 09:59 Dose: 40 mg Lorazepam (Ativan) 1 mg IVP Q6H PRN; Protocol PRN Reason: Anxiety Morphine Sulfate (Morphine) 5 mg IVP Q4 PRN PRN Reason: Pain, moderate (4-7) Last Admin: 04/14/18 04:12 Dose: 5 mg Nifedipine (Procardia Xl) 30 mg PO DAILY [facility] Last Admin: 04/13/18 09:59 Dose: 30 mg Ondansetron HCl (Zofran Inj) 4 mg IVP Q6H PRN PRN Reason: Nausea/Vomiting Last Admin: 04/14/18 08:13 Dose: 4 mg Pantoprazole Sodium (Protonix Ec Tab) 40 mg PO DAILY [facility] Last Admin: 04/13/18 10:00 Dose: 40 mg Sildenafil Citrate (Revatio) 20 mg PO Q8H [facility] Last Admin: 04/14/18 04:17 Dose: 20 mg Results - Vital Signs Recent Vital Signs: Last Vital Signs Temp 98.7 F 04/14/18 06:00 Pulse 78 04/14/18 06:00 Resp 20 04/14/18 06:00 BP 127/49 L 04/14/18 06:00 Pulse Ox 96 04/14/18 06:00 - Labs Result Diagrams: 04/14/18 10:10 04/14/18 10:10 Labs: Laboratory Results - last 24 hr 04/14/18 04/14/18 10:10 10:10 WBC 5.8 RBC 3.43 L Hgb 9.3 L Hct 30.5 L MCV 88.9 MCH 27.1 MCHC 30.5 L RDW 16.6 H Plt Count 191 MPV 11.5 H Gran % 66.8 Lymph % (Auto) 21.8 L Stewart % (Auto) 8.2 H Eos % (Auto) 2.7 Baso % (Auto) 0.5 Gran # 3.89 Lymph # (Auto) 1.3 Stewart # (Auto) 0.5 Eos # (Auto) 0.2 Baso # (Auto) 0.03 Sodium 137 Potassium 3.4 L Chloride 92 L Carbon Dioxide 29 Anion Gap 19 BUN 62 H Creatinine 6.8 H Est GFR ( Amer) 8 Est GFR (Non-Af Amer) 6 Random Glucose 83 Calcium 7.9 L Phosphorus 7.0 H Magnesium 2.0 Total Bilirubin 0.5 AST 31 ALT 26 Alkaline Phosphatase 173 H Total Protein 5.9 Albumin 3.6 Globulin 2.4 Albumin/Globulin Ratio 1.5 Attending/Attestation - Attestation I have personally seen and examined this patient.: Yes I have fully participated in the care of the patient.: Yes I have reviewed all pertinent clinical information: Yes
[2018-04-08 12:37] LABS: HEPATITIS B CORE AB NEGATIVE (NEGATIVE)
[2018-04-08] MEDS ORDERED: Lidocaine 2% Jelly (30 ml) TOP ONE (12:37)
--- NOTE | 2018-04-08 18:58 | PN ---
Copied To: Tamanna Smith MD Attending MD: Tamanna Smith MD DATE: 04/08/2018 SUBJECTIVE: The patient is seen sitting in bed. Son is at bedside. She is awake. She is alert. She is comfortable. She complains of severe pain in her right foot and right lower leg. PHYSICAL EXAMINATION: GENERAL: Middle-aged lady, sitting in bed. VITAL SIGNS: Blood pressure 177/63, heart rate 70, respiratory rate 18, temperature 98. HEENT: Normocephalic, atraumatic, positive pallor. NECK: Supple, no JVD. LUNGS: Bilateral equal air entry, bilaterally equal expansion. CARDIAC: S1 and S2, regular rate and rhythm, positive murmur, no rub. ABDOMEN: Soft, nondistended, nontender, bowel sounds present. EXTREMITIES: No lower extremity edema, erythema of the right foot, nonhealing ulcer on medial and lateral aspect of right lower leg. INTAKE AND OUTPUT: Not charted. LABORATORY DATA: No new labs. CURRENT MEDICATIONS: List reviewed. ASSESSMENT: 1. Peripheral vascular disease, nonhealing ulcers of the right leg. 2. Severe hypertension. 3. End-stage renal disease. 4. Coronary artery disease/peripheral arterial disease. 5. Chronic obstructive pulmonary disease. 6. Anemia of chronic kidney disease. 7. Gastroesophageal reflux disease. 8. Anxiety/depression. PLAN: 1. The patient is being evaluated by Surgery and Podiatry for possible right BKA. 2. Stable dialysis today. 3. Continue current antihypertensives. 4. Continue phosphate binders. 5. Continue pain management. Tamanna Smith MD
[2018-04-08] MEDS ORDERED: Albuterol 0.083% Inhal Sol (2.5 mg/3 mL) UD IH SCH (20:49)
[2018-04-08] MEDS: Albuterol 0.083% Inhal Sol (2.5 mg/3 mL) UD IH SCH (22:04)
--- NOTE | 2018-04-09 00:14 | PN ---
Copied To: Brittany Coffman MD Attending MD: Brittany Coffman MD DATE: 04/08/2018 SUBJECTIVE: The patient is a 57 years old, seen and examined in hemodialysis, complain of feeling nauseous, complain of right foot pain and she states she cannot take this pain anymore. PHYSICAL EXAMINATION VITAL SIGNS: She is afebrile, pulse 82, respirations 18, blood pressure 147/67. LUNGS: Bilateral fair airflow. No rhonchi or crackle. HEART: S1 and S2 audible. ABDOMEN: Soft. Nontender. No rebound. No guarding. NEUROLOGICAL: She is awake, alert and oriented, able to communicate. EXTREMITIES: She has erythema of the right forefoot, and complain of pain in the foot and the heel area. LABORATORY EXAM: There is no new labs available today. ASSESSMENT: 1. Severe peripheral vascular disease. 2. Right foot nonhealing ulcer. 3. Hypertension. 4. End-stage renal disease on hemodialysis. 5. Coronary artery disease. 6. Chronic obstructive pulmonary disease. 7. Peptic ulcer disease. 8. Anxiety disorder. 9. Carotid angioplasty. PLAN: The patient is at high risk. She states she cannot take this pain anymore and willing to have right BKA done. Now, Dr. Hutson has been consulted for that. According to her scheduled to have , Plavix will be held. I will request Dr. Ontiveros for Cardiology clearance and continue her on analgesics. We will follow up patient in the a.m. Brittany Coffman MD
[2018-04-09] MEDS: Albuterol 0.083% Inhal Sol (2.5 mg/3 mL) UD IH SCH ×4 (02:48→20:40)
--- NOTE | 2018-04-09 08:12 | CP.PCM.PN ---
Subjective - Date & Time of Evaluation Date of Evaluation: 04/09/18 Time of Evaluation: 07:00 - Subjective Subjective: General Surgery Note for Dr. Lopez Patient seen and examined at bedside. No acute event overnight. Patient still has right lower extremity pain. She denies fever/chills. She is tolerating diet. Objective - Vital Signs/Intake and Output Vital Signs (last 24 hours): Temp Pulse Resp BP Pulse Ox 98.7 F 70 18 178/67 H 99 04/09/18 06:00 04/09/18 06:00 04/09/18 06:00 04/09/18 06:00 04/09/18 06:00 Intake and Output: 04/09/18 04/09/18 06:59 18:59 Intake Total 360 Balance 360 - Medications Medications: Current Medications Albuterol Sulfate (Albuterol 0.083% Inhal Michelle (2.5 Mg/3 Ml) Ud) 2.5 mg IH [id number] [facility] Last Admin: 04/09/18 07:22 Dose: 2.5 mg Amlodipine Besylate (Norvasc) 10 mg PO DAILY [facility] Last Admin: 04/08/18 11:02 Dose: Not Given Atorvastatin Calcium (Lipitor) 20 mg PO HS [facility] Last Admin: 04/08/18 21:02 Dose: 20 mg Carvedilol (Coreg) 12.5 mg PO BID [facility] Last Admin: 04/08/18 17:58 Dose: 12.5 mg Clonidine HCl (Catapres) 0.1 mg PO TID [facility] Last Admin: 04/08/18 17:59 Dose: 0.1 mg Clopidogrel Bisulfate (Plavix) 75 mg PO DAILY [facility] Last Admin: 04/08/18 11:02 Dose: Not Given Labetalol HCl (Trandate) 300 mg PO Q8H PRN PRN Reason: HTN Levetiracetam (Keppra) 500 mg PO BID [facility] Last Admin: 04/08/18 17:58 Dose: 500 mg Levothyroxine Sodium (Synthroid) 75 mcg PO DAILY [facility] Last Admin: 04/08/18 11:02 Dose: Not Given Lisinopril (Zestril) 40 mg PO DAILY [facility] Last Admin: 04/08/18 11:02 Dose: Not Given Morphine Sulfate (Morphine Extended Release Tab) 15 mg PO Q12 [facility] Last Admin: 04/08/18 21:02 Dose: 15 mg Morphine Sulfate (Morphine) 5 mg IVP Q4 PRN PRN Reason: Pain, moderate (4-7) Last Admin: 04/09/18 00:44 Dose: 5 mg Nifedipine (Procardia Xl) 30 mg PO DAILY [facility] Last Admin: 04/08/18 11:02 Dose: Not Given Ondansetron HCl (Zofran Inj) 4 mg IVP Q6H PRN PRN Reason: Nausea/Vomiting Last Admin: 04/08/18 17:59 Dose: 4 mg Pantoprazole Sodium (Protonix Ec Tab) 40 mg PO DAILY [facility] Last Admin: 04/08/18 11:02 Dose: Not Given Sildenafil Citrate (Revatio) 20 mg PO Q8H [facility] Last Admin: 04/08/18 20:38 Dose: Not Given - Labs Labs: PT 12.3 SECONDS (9.4-12.5) 04/07/18 02:50 INR 1.08 04/07/18 02:50 APTT 45.0 Seconds (25.1-36.5) H 04/07/18 02:50 - Additional Findings Additional findings: - Constitutional Appears: No Acute Distress - Eye Exam Eye Exam: Normal appearance - ENT Exam ENT Exam: Mucous Membranes Moist - Neck Exam Additional comments: R portacath - Respiratory Exam Respiratory Exam: NORMAL BREATHING PATTERN - Cardiovascular Exam Cardiovascular Exam: RRR - GI/Abdominal Exam GI & Abdominal Exam: Soft. absent: Guarding, Rebound, Tenderness - Extremities Exam Additional comments: RLE with erythema around the foot & toes, ttp, non-healing ulcer noted on R medial aspect of lower leg & pressure ulcer with erythema noted around the heel. No palpable DP, PT or popliteal pulses, 2+ femoral pulse, no doppler signals appreciated. +sensation to light touch. LLE with no palpable pulses but biphasic doppler signals - Neurological Exam Neurological exam: Alert, Oriented x3 - Skin Skin Exam: Dry, Warm Assessment and Plan - Assessment and Plan (Free Text) Assessment: 57F with multiple co-morbidities & severe PVD s/p angioplasty, stenting & bypass presents with nonhealing RLE wounds Plan: -Plan for OR on Thursday -Medical optimization -f/u vascular studies -Further recommendations as per Dr.Simpson Ministerio Camacho PGY2
[2018-04-09] MEDS: Morphine 15 mg SR Tab PO SCH ×2 (09:15→23:38)
[2018-04-09] MEDS: NIFEdipine 30 mg ER Tab PO SCH (09:15)
[2018-04-09] MEDS: Pantoprazole 40 mg EC Tab PO SCH (09:15)
[2018-04-09] MEDS: Sildenafil 20 MG TAB PO SCH ×3 (09:15→23:50)
[2018-04-09] MEDS: Levothyroxine 75 MCG TAB PO SCH (09:17)
--- NOTE | 2018-04-09 17:52 | CP.PCM.PN ---
<Trevor De La Rosa - Last Filed: 04/09/18 17:48> Subjective - Date & Time of Evaluation Date of Evaluation: 04/09/18 Time of Evaluation: 11:35 - Subjective Subjective: Podiatry Progress Note for Dr. 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 Patient is AAO x 3 and NAD at time of visit. States that she continues to have pain to b/l heels. Denies any acute overnight events or further pedal complaints at this time. Denies any recent N/V/F/C/CP/SOB/D/posterior calf pain when squeezed. Objective - Vital Signs/Intake and Output Vital Signs (last 24 hours): Temp Pulse Resp BP Pulse Ox 98 F 69 20 130/60 97 04/09/18 14:00 04/09/18 14:00 04/09/18 14:00 04/09/18 17:35 04/09/18 14:00 Intake and Output: 04/09/18 04/09/18 06:59 18:59 Intake Total 360 600 Balance 360 600 - Medications Medications: Current Medications Albuterol Sulfate (Albuterol 0.083% Inhal Michelle (2.5 Mg/3 Ml) Ud) 2.5 mg IH [id number] [facility] Last Admin: 04/09/18 13:02 Dose: 2.5 mg Amlodipine Besylate (Norvasc) 10 mg PO DAILY [facility] Last Admin: 04/09/18 09:14 Dose: 10 mg Aspirin (Ecotrin) 81 mg PO DAILY [facility] Last Admin: 04/09/18 17:34 Dose: 81 mg Atorvastatin Calcium (Lipitor) 20 mg PO HS [facility] Last Admin: 04/08/18 21:02 Dose: 20 mg Carvedilol (Coreg) 12.5 mg PO BID [facility] Last Admin: 04/09/18 17:34 Dose: 12.5 mg Clonidine HCl (Catapres) 0.1 mg PO TID [facility] Last Admin: 04/09/18 17:35 Dose: 0.1 mg Clopidogrel Bisulfate (Plavix) 75 mg PO DAILY [facility] Last Admin: 04/09/18 09:14 Dose: 75 mg Labetalol HCl (Trandate) 300 mg PO Q8H PRN PRN Reason: HTN Levetiracetam (Keppra) 500 mg PO BID [facility] Last Admin: 04/09/18 17:39 Dose: 500 mg Levothyroxine Sodium (Synthroid) 75 mcg PO DAILY [facility] Last Admin: 04/09/18 09:17 Dose: 75 mcg Lisinopril (Zestril) 40 mg PO DAILY [facility] Last Admin: 04/09/18 09:15 Dose: 40 mg Morphine Sulfate (Morphine Extended Release Tab) 15 mg PO Q12 [facility] Last Admin: 04/09/18 09:15 Dose: 15 mg Morphine Sulfate (Morphine) 5 mg IVP Q4 PRN PRN Reason: Pain, moderate (4-7) Last Admin: 04/09/18 11:36 Dose: 5 mg Nifedipine (Procardia Xl) 30 mg PO DAILY [facility] Last Admin: 04/09/18 09:15 Dose: 30 mg Ondansetron HCl (Zofran Inj) 4 mg IVP Q6H PRN PRN Reason: Nausea/Vomiting Last Admin: 04/08/18 17:59 Dose: 4 mg Pantoprazole Sodium (Protonix Ec Tab) 40 mg PO DAILY [facility] Last Admin: 04/09/18 09:15 Dose: 40 mg Sildenafil Citrate (Revatio) 20 mg PO Q8H [facility] Last Admin: 04/09/18 09:15 Dose: 20 mg - Labs Labs: PT 12.3 SECONDS (9.4-12.5) 04/07/18 02:50 INR 1.08 04/07/18 02:50 APTT 45.0 Seconds (25.1-36.5) H 04/07/18 02:50 - Constitutional Appears: Well, Non-toxic, No Acute Distress - Extremities Exam Additional comments: LE focused exam: Vasc: DP/PT pulses palpable 2/4 B/L. Skin temperature warm to warm from proximal to distal. CFT < 3 seconds to all digits B/L. No pedal edema noted. Derm: Superficial uceration secondary to calciphylaxis seen on medial calf of right leg measuring roughly 2.0 cm x 1.3 cm x 0.1 cm with granular wound base and hyperkeratotic wound borders. No woo-wound erythema, no malodor, no purulence, no tunneling, tracking, undermining, probe to bone or fluctuance. No maceration, xerosis, abnormal pigmentation or abnormal growths noted to b/l LE. Posterior right heel wound measuring roughly 0.5 cm x 0.5 cm x 0.1 cm noted. Wound base is fibronecrotic with no drainage, malodor, erythema or other clinical signs of infection. No tracking, tunneling or undermining. No probe to bone Neuro: Epicritic and protective sensation grossly intact B/L. Ortho: Mild-moderate tenderness to palpation of right leg ulceration. Pain with palpation to left heel - Neurological Exam Neurological Exam: Alert, Awake, Oriented x3 - Psychiatric Exam Psychiatric exam: Normal Affect, Normal Mood Assessment and Plan - Assessment and Plan (Free Text) Assessment: 57F seen for ulcerations of right LE and left heel pain secondary to calciphylaxis Plan: Patient seen and evaluated with Dr. Forte Afebrile, absent leukocytosis Patient for BKA with Dr. Hutson on Thursday B/l heels and all wounds dressed with topical lidocaine and optifoam Nursing reminded to place multipodus boots on feet at all times while in bed No plan for podiatric surgical intervention at this time Podiatry will continue to follow while patient in house <Dougie Forte - Last Filed: 04/09/18 18:10> Objective - Vital Signs/Intake and Output Vital Signs (last 24 hours): Temp Pulse Resp BP Pulse Ox 98 F 69 20 130/60 97 04/09/18 14:00 04/09/18 14:00 04/09/18 14:00 04/09/18 17:35 04/09/18 14:00 Intake and Output: 04/09/18 04/09/18 06:59 18:59 Intake Total 360 600 Balance 360 600 - Medications Medications: Current Medications Albuterol Sulfate (Albuterol 0.083% Inhal Michelle (2.5 Mg/3 Ml) Ud) 2.5 mg IH [id number] [facility] Last Admin: 04/09/18 13:02 Dose: 2.5 mg Amlodipine Besylate (Norvasc) 10 mg PO DAILY [facility] Last Admin: 04/09/18 09:14 Dose: 10 mg Aspirin (Ecotrin) 81 mg PO DAILY [facility] Last Admin: 04/09/18 17:34 Dose: 81 mg Atorvastatin Calcium (Lipitor) 20 mg PO HS [facility] Last Admin: 04/08/18 21:02 Dose: 20 mg Carvedilol (Coreg) 12.5 mg PO BID [facility] Last Admin: 04/09/18 17:34 Dose: 12.5 mg Clonidine HCl (Catapres) 0.1 mg PO TID [facility] Last Admin: 04/09/18 17:35 Dose: 0.1 mg Clopidogrel Bisulfate (Plavix) 75 mg PO DAILY [facility] Last Admin: 04/09/18 09:14 Dose: 75 mg Labetalol HCl (Trandate) 300 mg PO Q8H PRN PRN Reason: HTN Levetiracetam (Keppra) 500 mg PO BID [facility] Last Admin: 04/09/18 17:39 Dose: 500 mg Levothyroxine Sodium (Synthroid) 75 mcg PO DAILY [facility] Last Admin: 04/09/18 09:17 Dose: 75 mcg Lisinopril (Zestril) 40 mg PO DAILY [facility] Last Admin: 04/09/18 09:15 Dose: 40 mg Morphine Sulfate (Morphine Extended Release Tab) 15 mg PO Q12 [facility] Last Admin: 04/09/18 09:15 Dose: 15 mg Morphine Sulfate (Morphine) 5 mg IVP Q4 PRN PRN Reason: Pain, moderate (4-7) Last Admin: 04/09/18 11:36 Dose: 5 mg Nifedipine (Procardia Xl) 30 mg PO DAILY [facility] Last Admin: 04/09/18 09:15 Dose: 30 mg Ondansetron HCl (Zofran Inj) 4 mg IVP Q6H PRN PRN Reason: Nausea/Vomiting Last Admin: 04/08/18 17:59 Dose: 4 mg Pantoprazole Sodium (Protonix Ec Tab) 40 mg PO DAILY [facility] Last Admin: 04/09/18 09:15 Dose: 40 mg Sildenafil Citrate (Revatio) 20 mg PO Q8H [facility] Last Admin: 04/09/18 09:15 Dose: 20 mg - Labs Labs: PT 12.3 SECONDS (9.4-12.5) 04/07/18 02:50 INR 1.08 04/07/18 02:50 APTT 45.0 Seconds (25.1-36.5) H 04/07/18 02:50 Attending/Attestation - Attestation I have personally seen and examined this patient.: Yes I have fully participated in the care of the patient.: Yes I have reviewed all pertinent clinical information, including history, physical exam and plan: Yes
--- NOTE | 2018-04-09 19:28 | PN ---
Copied To: Tamanna Smith MD Attending MD: Tamanna Smith MD DATE: 04/09/2018 SUBJECTIVE: The patient is seen sitting in bed. Son is at bedside. She is awake, she is alert. She complains of pain in her right leg. She reports that the pain is controlled right now with Dilaudid. PHYSICAL EXAMINATION: GENERAL: A middle-aged lady sitting in bed. VITAL SIGNS: Blood pressure 131/54, heart rate 69, respiratory rate 20, and temperature 98. HEENT: Normocephalic, atraumatic, positive pallor. NECK: Supple, no JVD. LUNGS: Bilateral equal air entry, bilateral equal expansion. CARDIAC: S1 and S2, regular rate and rhythm, no murmur, no rub. ABDOMEN: Soft, nondistended, nontender, bowel sounds present. EXTREMITIES: Dressing of the right lower extremity, erythema of the right forefoot. LABORATORY DATA: No new labs. Blood cultures, no growth. MEDICATIONS: List reviewed. ASSESSMENT: 1. Severe peripheral vascular disease, nonhealing ulcer of the right lower extremity. 2. Severe hypertension, currently blood pressure is controlled. 3. End-stage renal disease. 4. Anemia of chronic kidney disease. 5. Secondary hyperparathyroidism. PLAN: 1. The patient is scheduled to go to the OR on Thursday for right BKA. 2. The patient had stable dialysis yesterday. 3. Currently, her blood pressure is well controlled. 4. Continue phosphate binders. Tamanna Smith MD
--- NOTE | 2018-04-09 20:51 | CON ---
Copied To: Pj Ontiveros MD Attending MD: Pj Ontiveros MD DATE: 04/09/2018 REASON FOR CONSULTATION AND FOLLOWUP: Preoperative evaluation, risk stratification for possible amputation of right BKA. BRIEF CLINICAL HISTORY: This is a 57-year-old female with past medical history significant for coronary artery disease; severe PAD; end-stage renal disease, on dialysis; diabetes; hypertension; hyperlipidemia; peripheral arterial disease; admitted with nonhealing ulcer on right foot possibly requiring BKA. Cardiology consultation was called. Patient denies any chest pain, denies any shortness of breath, or denies any palpitations. PAST HISTORY: Significant for uncontrolled and very labile hypertension; end-stage renal disease, on dialysis; gastroesophageal reflux disease; severe PAD, status post multiple angioplasty of right lower extremity; now admitted with nonhealing ulcer. History of carotid artery endarterectomy, history of stent for the coronary artery disease. Past history as mentioned significant for coronary artery disease, status post PTCA; non-STEMI at outside hospital, [facility]. PAST SURGICAL HISTORY: Significant ulcer debridement, history of PTCA, history of Port-A-Cath multiple for dialysis for dilatation, history of right carotid artery angioplasty. SOCIAL HISTORY: Denies any smoking. Denies any history of alcohol abuse. History of recent cardiac workup as follows: Patient has a stress test in 2017, that shows a normal myocardial perfusion study, history of COPD, history of seizure disorder. CURRENT MEDICATIONS: The patient is taking , amlodipine, Revatio, Protonix, nifedipine, lisinopril, levothyroxine, labetalol, clopidogrel, and carvedilol. REVIEW OF SYSTEMS: As per HPI. PHYSICAL EXAMINATION: VITAL SIGNS: Temperature afebrile, heart rate 60, and blood pressure 130/80. HEENT: PERRLA, intact. NECK: Supple. No carotid bruits. No thyromegaly. CHEST: Clear to auscultation. HEART: S1 and S2, regular. ABDOMEN: Soft. EXTREMITIES: Clubbing and cyanosis negative. LABORATORY DATA: WBC 5.7, hemoglobin 9.9, hematocrit 32.2, and platelet count 167. Chemistries show sodium 140, potassium 4.2, chloride 97, carbon dioxide 31, anion gap of 19, BUN 34, creatinine 4.6. IMPRESSION: A 57-year-old female with a past medical history significant for coronary artery disease, status post stent after having non-ST elevation myocardial infarction in [facility]; history of peripheral arterial disease, history of multiple angioplasties of leg and now it is nonhealing, so possibly will require amputation. History of end-stage renal disease, on dialysis; labile blood pressure; history of carotid artery stenting in the past. RECOMMENDATIONS: No evidence of ischemia. No evidence of angina. No evidence of congestive heart failure. Continue perioperative beta-mino. Continue beta-mino. Optimize medical treatment. The patient is cleared to go for surgery with high risk because of underlying comorbidity. Continue sildenafil for pulmonary hypertension. We will follow with you. We will hold Plavix for now for amputation. Patient is going for amputation. We will leave on baby aspirin. As mentioned above, patient is at high risk for surgery because of underlying comorbidity, but no absolute contraindications. Thank you for Dr. Coffman for providing us the opportunity in taking care of the patient, Renetta Thakur. Pj Ontiveros MD
[2018-04-10] MEDS: Albuterol 0.083% Inhal Sol (2.5 mg/3 mL) UD IH SCH ×4 (02:43→20:35)
[2018-04-10] MEDS ORDERED: Darbepoetin Alfa 60 mcg/ml Inj IVP ONE (07:10)
[2018-04-10] MEDS: Sildenafil 20 MG TAB PO SCH ×3 (07:37→21:52)
--- NOTE | 2018-04-10 07:44 | CP.PCM.PN ---
Subjective - Date & Time of Evaluation Date of Evaluation: 04/10/18 Time of Evaluation: 06:50 - Subjective Subjective: General Surgery Note for Dr. Lopez Patient seen and examined at bedside. No acute event overnight. Patient reports pain in right lower extremity still. Pain is controlled with meds. SHe admits to some nausea occasionally. She is tolerating diet and passing gas. Patient undecided about amputation wants to think about it over next 24 hours. Cardio stated patient is cleared for surgery with high risk due to history and comorbidities. Objective - Vital Signs/Intake and Output Vital Signs (last 24 hours): Temp Pulse Resp BP Pulse Ox 98.9 F 87 20 106/55 L 96 04/10/18 02:00 04/09/18 20:51 04/09/18 20:51 04/09/18 20:51 04/09/18 20:51 - Medications Medications: Current Medications Albuterol Sulfate (Albuterol 0.083% Inhal Michelle (2.5 Mg/3 Ml) Ud) 2.5 mg IH [id number] [facility] Last Admin: 04/10/18 07:16 Dose: 2.5 mg Amlodipine Besylate (Norvasc) 10 mg PO DAILY [facility] Last Admin: 04/09/18 09:14 Dose: 10 mg Aspirin (Ecotrin) 81 mg PO DAILY [facility] Last Admin: 04/09/18 17:34 Dose: 81 mg Atorvastatin Calcium (Lipitor) 20 mg PO HS [facility] Last Admin: 04/09/18 21:25 Dose: 20 mg Carvedilol (Coreg) 12.5 mg PO BID [facility] Last Admin: 04/09/18 17:34 Dose: 12.5 mg Clonidine HCl (Catapres) 0.1 mg PO TID [facility] Last Admin: 04/09/18 17:35 Dose: 0.1 mg Clopidogrel Bisulfate (Plavix) 75 mg PO DAILY [facility] Last Admin: 04/09/18 09:14 Dose: 75 mg Labetalol HCl (Trandate) 300 mg PO Q8H PRN PRN Reason: HTN Levetiracetam (Keppra) 500 mg PO BID [facility] Last Admin: 04/09/18 17:39 Dose: 500 mg Levothyroxine Sodium (Synthroid) 75 mcg PO DAILY [facility] Last Admin: 04/09/18 09:17 Dose: 75 mcg Lisinopril (Zestril) 40 mg PO DAILY [facility] Last Admin: 04/09/18 09:15 Dose: 40 mg Morphine Sulfate (Morphine Extended Release Tab) 15 mg PO Q12 [facility] Last Admin: 04/09/18 23:38 Dose: 15 mg Morphine Sulfate (Morphine) 5 mg IVP Q4 PRN PRN Reason: Pain, moderate (4-7) Last Admin: 04/09/18 11:36 Dose: 5 mg Nifedipine (Procardia Xl) 30 mg PO DAILY [facility] Last Admin: 04/09/18 09:15 Dose: 30 mg Ondansetron HCl (Zofran Inj) 4 mg IVP Q6H PRN PRN Reason: Nausea/Vomiting Last Admin: 04/10/18 07:23 Dose: 4 mg Pantoprazole Sodium (Protonix Ec Tab) 40 mg PO DAILY [facility] Last Admin: 04/09/18 09:15 Dose: 40 mg Sildenafil Citrate (Revatio) 20 mg PO Q8H [facility] Last Admin: 04/10/18 07:37 Dose: Not Given - Labs Labs: PT 12.3 SECONDS (9.4-12.5) 04/07/18 02:50 INR 1.08 04/07/18 02:50 APTT 45.0 Seconds (25.1-36.5) H 04/07/18 02:50 - Additional Findings Additional findings: - Constitutional Appears: No Acute Distress - Eye Exam Eye Exam: Normal appearance - ENT Exam ENT Exam: Mucous Membranes Moist - Neck Exam Additional comments: R portacath - Respiratory Exam Respiratory Exam: NORMAL BREATHING PATTERN - Cardiovascular Exam Cardiovascular Exam: RRR - GI/Abdominal Exam GI & Abdominal Exam: Soft. absent: Guarding, Rebound, Tenderness - Extremities Exam Additional comments: RLE with erythema around the foot & toes, ttp, non-healing ulcer noted on R medial aspect of lower leg & pressure ulcer with erythema noted around the heel. No palpable DP, PT or popliteal pulses, 2+ femoral pulse, no doppler signals appreciated. +sensation to light touch. LLE with no palpable pulses but biphasic doppler signals - Neurological Exam Neurological exam: Alert, Oriented x3 - Skin Skin Exam: Dry, Warm Assessment and Plan - Assessment and Plan (Free Text) Assessment: 57F with multiple co-morbidities & severe PVD s/p angioplasty, stenting & bypass presents with nonhealing RLE wounds requiring amputation Plan: -Plan for OR on Thursday -Medical optimization -Cardio cleared patient with high risk -Will pre-op patient and obtain consent -Further recommendations as per Dr.Simpson Ministerio Camacho PGY2
[2018-04-10] MEDS: Morphine 15 mg SR Tab PO SCH (12:06)
--- NOTE | 2018-04-10 12:06 | PN ---
Copied To: Sampson Hutchins MD Attending MD: Sampson Hutchins MD DATE: 04/10/2018 SUBJECTIVE: The patient is currently seen on hemodialysis. She is tolerating the procedure well; 2000 mL of fluid are being removed. Blood pressures are stable. The patient is scheduled for a right BKA on 04/12/2018 for a nonhealing wound of her right lower extremity with severe peripheral vascular disease. MEDICATIONS: Medication list reviewed. The patient is currently on albuterol inhalation therapy, clonidine, Coreg, Ecotrin, Keppra, Lipitor, morphine, Norvasc, Plavix is on hold, Procardia, Protonix, Revatio, Synthroid, Trandate, Zestril and Zofran p.r.n. OBJECTIVE: INTAKE/OUTPUT: Intake is 600, output is zero. VITAL SIGNS: Presently on dialysis. Blood pressure 120/62 with a heart rate of 75, temperature is now 98.2 down from a high of 100.3. Respiratory rate is 16 with a pulse ox of 95%. HEENT: Exam shows her to be normocephalic, atraumatic. Conjunctivae are pale. Sclerae are nonicteric. NECK: Supple. No neck vein distention. CHEST: Clear to auscultation and percussion with occasional scattered rhonchi. No rales or wheezing. CARDIAC: Shows a normal S1, S2. Positive MR/TR/AI. No S3, no S4, no rub. ABDOMEN: Soft. Bowel sounds are normal. No rebound, guarding or masses. EXTREMITIES: Show dressing over her right lower extremity with severely diminished pulses in her right leg. Positive right chest wall Perm-A-Cath being used for dialysis. LABORATORY DATA AND IMAGING: No recent labs were done. From 04/07, CBC: White blood cell count 5.7, hemoglobin 9.9, with a platelet count of 167,000. Chemistry show BUN of 34 with a creatinine of 4.6. Calcium was 7.9 with a phosphorus of 6. Microbiology: Blood cultures are negative at 72 hours. ASSESSMENT: 1. End-stage renal disease. The patient will continue Thursday and dialysis as per her routine. 2. History of severe peripheral vascular disease with a nonhealing wound of her right lower extremity. The patient is scheduled for right below knee amputation on 04/12/2018. 3. History of anemia secondary to chronic kidney disease, currently stable. The patient will receive Aranesp as per protocol. 4. History of secondary hyperparathyroidism. The patient will continue renal diet and I will resume binder therapy. 5. History of chronic obstructive pulmonary disease secondary to long history of cigarette smoking. The patient will continue present inhalation therapy. 6. History of mild glucose intolerance. 7. History of hypothyroidism. The patient will continue thyroid replacement therapy. PLAN: 1. Dialysis today as scheduled. 2. Continue present blood pressure medications. Hypertension is controlled. 3. Continue phosphorus binder therapy and a renal diet. Sampson Hutchins MD
[2018-04-10] MEDS: NIFEdipine 30 mg ER Tab PO SCH (12:09)
[2018-04-10] MEDS: Levothyroxine 75 MCG TAB PO SCH (12:10)
[2018-04-10] MEDS: Pantoprazole 40 mg EC Tab PO SCH (12:10)
--- NOTE | 2018-04-10 21:03 | PN ---
Copied To: Brittany Coffman MD Attending MD: Brittany Coffman MD DATE: 04/10/2018 SUBJECTIVE: The patient is 57 years old, seen and examined, complained of right foot pain and . PHYSICAL EXAMINATION VITAL SIGNS: She is afebrile, pulse 77, respirations 18, and blood pressure 135/60. LUNGS: Bilateral good airflow. No rhonchi or crackle. HEART: S1 and S2 audible. ABDOMEN: Soft, nontender. No rebound, no guarding. NEUROLOGIC: She is awake and alert. Able to communicate. EXTREMITIES: Has right foot erythema. ASSESSMENT: 1. Severe peripheral vascular disease. 2. Status post bypass surgery. 3. Right carotid angioplasty. 4. End-stage renal disease, on hemodialysis. 5. Hypertension. 6. Chronic kidney disease. PLAN: Currently, the patient is on nebulizer treatment. We will continue her antihypertensives. If she has seizure disorder, we will continue on Keppra. Scheduled for right knee BKA. Brittany Coffman MD
[2018-04-11] MEDS: Morphine 15 mg SR Tab PO SCH ×2 (01:11→10:12)
[2018-04-11] MEDS: Albuterol 0.083% Inhal Sol (2.5 mg/3 mL) UD IH SCH ×4 (01:15→21:07)
[2018-04-11] MEDS: Sildenafil 20 MG TAB PO SCH ×3 (03:45→21:17)
--- NOTE | 2018-04-11 07:47 | CP.PCM.PN ---
Subjective - Date & Time of Evaluation Date of Evaluation: 04/11/18 Time of Evaluation: 07:44 - Subjective Subjective: Surgery Pt seen and examined. Reports R LE pain , itching and nausea. Received a dose of benadryl. Pt possibly considering OR tomorrow for R LE amputation. Denies fever, vomiting, diarrhea, [employer] OFFICE [employer]GER, SOB. Objective - Vital Signs/Intake and Output Vital Signs (last 24 hours): Temp Pulse Resp BP Pulse Ox 97.7 F 78 16 166/64 H 97 04/10/18 15:22 04/10/18 17:24 04/10/18 15:22 04/10/18 17:24 04/10/18 15:22 Intake and Output: 04/11/18 04/11/18 06:59 18:59 Intake Total 240 Balance 240 - Medications Medications: Current Medications Albuterol Sulfate (Albuterol 0.083% Inhal Michelle (2.5 Mg/3 Ml) Ud) 2.5 mg IH [id number] [facility] Last Admin: 04/11/18 07:18 Dose: 2.5 mg Amlodipine Besylate (Norvasc) 10 mg PO DAILY [facility] Last Admin: 04/10/18 12:05 Dose: 10 mg Aspirin (Ecotrin) 81 mg PO DAILY [facility] Last Admin: 04/10/18 12:05 Dose: 81 mg Atorvastatin Calcium (Lipitor) 20 mg PO HS [facility] Last Admin: 04/10/18 21:52 Dose: 20 mg Carvedilol (Coreg) 12.5 mg PO BID [facility] Last Admin: 04/10/18 17:24 Dose: 12.5 mg Clonidine HCl (Catapres) 0.1 mg PO TID [facility] Last Admin: 04/10/18 17:24 Dose: 0.1 mg Clopidogrel Bisulfate (Plavix) 75 mg PO DAILY [facility] Last Admin: 04/09/18 09:14 Dose: 75 mg Diphenhydramine HCl (Benadryl Maximum Strength 1%) 0 ea TOP Q6H PRN PRN Reason: Itching / Pruritus Labetalol HCl (Trandate) 300 mg PO Q8H PRN PRN Reason: HTN Levetiracetam (Keppra) 500 mg PO BID [facility] Last Admin: 04/10/18 17:24 Dose: 500 mg Levothyroxine Sodium (Synthroid) 75 mcg PO DAILY [facility] Last Admin: 04/10/18 12:10 Dose: 75 mcg Lisinopril (Zestril) 40 mg PO DAILY [facility] Last Admin: 04/10/18 12:10 Dose: 40 mg Morphine Sulfate (Morphine Extended Release Tab) 15 mg PO Q12 [facility] Last Admin: 04/11/18 01:11 Dose: Not Given Morphine Sulfate (Morphine) 5 mg IVP Q4 PRN PRN Reason: Pain, moderate (4-7) Last Admin: 04/10/18 21:48 Dose: 5 mg Nifedipine (Procardia Xl) 30 mg PO DAILY [facility] Last Admin: 04/10/18 12:09 Dose: 30 mg Ondansetron HCl (Zofran Inj) 4 mg IVP Q6H PRN PRN Reason: Nausea/Vomiting Last Admin: 04/10/18 23:10 Dose: 4 mg Pantoprazole Sodium (Protonix Ec Tab) 40 mg PO DAILY [facility] Last Admin: 04/10/18 12:10 Dose: 40 mg Sildenafil Citrate (Revatio) 20 mg PO Q8H [facility] Last Admin: 04/11/18 03:45 Dose: Not Given - Labs Labs: PT 12.3 SECONDS (9.4-12.5) 04/07/18 02:50 INR 1.08 04/07/18 02:50 APTT 45.0 Seconds (25.1-36.5) H 04/07/18 02:50 - Constitutional Appears: No Acute Distress Assessment and Plan - Assessment and Plan (Free Text) Assessment: 57F with multiple co-morbidities & severe PVD s/p angioplasty, stenting & bypass presents with nonhealing RLE wounds Based on NSQIP Surgical risk calculator her risk of serious complicatin is 20% and any complication is 24%. Pt is 75% likely to be DCed to Rehab or nursing fascilities Plan: -Plan for bka vs aka on Thursday in OR -Medical optimization -f/u vascular studies -f/u Podiatry recommendations - Further recommendations as per
[2018-04-11] MEDS: Pantoprazole 40 mg EC Tab PO SCH (10:10)
[2018-04-11] MEDS: NIFEdipine 30 mg ER Tab PO SCH (10:11)
[2018-04-11] MEDS: Levothyroxine 75 MCG TAB PO SCH (10:11)
--- NOTE | 2018-04-11 13:38 | CP.PCM.PN ---
<Addison Torres - Last Filed: 04/11/18 13:35> Subjective - Date & Time of Evaluation Date of Evaluation: 04/11/18 Time of Evaluation: 11:40 - Subjective Subjective: Podiatry Progress Note for Dr. 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 Patient is AAO x 3 and NAD at time of visit. States that she continues to have pain to b/l heels. Reports that the lidocaine gel does not help the right foot. Denies any acute overnight events or further pedal complaints at this time. Denies any recent N/V/F/C/CP/SOB/D/posterior calf pain when squeezed. Objective - Vital Signs/Intake and Output Vital Signs (last 24 hours): Temp Pulse Resp BP Pulse Ox 98.5 F 94 H 18 160/75 H 97 04/11/18 08:31 04/11/18 08:31 04/11/18 08:31 04/11/18 10:11 04/11/18 08:31 Intake and Output: 04/11/18 04/11/18 06:59 18:59 Intake Total 240 Balance 240 - Medications Medications: Current Medications Albuterol Sulfate (Albuterol 0.083% Inhal Michelle (2.5 Mg/3 Ml) Ud) 2.5 mg IH [id number] [facility] Last Admin: 04/11/18 07:18 Dose: 2.5 mg Amlodipine Besylate (Norvasc) 10 mg PO DAILY [facility] Last Admin: 04/11/18 10:11 Dose: 10 mg Aspirin (Ecotrin) 81 mg PO DAILY [facility] Last Admin: 04/10/18 12:05 Dose: 81 mg Atorvastatin Calcium (Lipitor) 20 mg PO HS [facility] Last Admin: 04/10/18 21:52 Dose: 20 mg Carvedilol (Coreg) 12.5 mg PO BID [facility] Last Admin: 04/11/18 10:10 Dose: 12.5 mg Clonidine HCl (Catapres) 0.1 mg PO TID [facility] Last Admin: 04/11/18 10:10 Dose: 0.1 mg Clopidogrel Bisulfate (Plavix) 75 mg PO DAILY [facility] Last Admin: 04/09/18 09:14 Dose: 75 mg Diphenhydramine HCl (Benadryl Maximum Strength 1%) 0 ea TOP Q6H PRN PRN Reason: Itching / Pruritus Labetalol HCl (Trandate) 300 mg PO Q8H PRN PRN Reason: HTN Levetiracetam (Keppra) 500 mg PO BID [facility] Last Admin: 04/11/18 10:09 Dose: 500 mg Levothyroxine Sodium (Synthroid) 75 mcg PO DAILY [facility] Last Admin: 04/11/18 10:11 Dose: 75 mcg Lisinopril (Zestril) 40 mg PO DAILY [facility] Last Admin: 04/11/18 10:12 Dose: 40 mg Morphine Sulfate (Morphine) 5 mg IVP Q4 PRN PRN Reason: Pain, moderate (4-7) Last Admin: 04/11/18 11:41 Dose: 5 mg Nifedipine (Procardia Xl) 30 mg PO DAILY [facility] Last Admin: 04/11/18 10:11 Dose: 30 mg Ondansetron HCl (Zofran Inj) 4 mg IVP Q6H PRN PRN Reason: Nausea/Vomiting Last Admin: 04/10/18 23:10 Dose: 4 mg Pantoprazole Sodium (Protonix Ec Tab) 40 mg PO DAILY [facility] Last Admin: 04/11/18 10:10 Dose: 40 mg Sildenafil Citrate (Revatio) 20 mg PO Q8H [facility] Last Admin: 04/11/18 03:45 Dose: Not Given - Labs Labs: PT 12.3 SECONDS (9.4-12.5) 04/07/18 02:50 INR 1.08 04/07/18 02:50 APTT 45.0 Seconds (25.1-36.5) H 04/07/18 02:50 - Constitutional Appears: Well, Non-toxic, No Acute Distress - Extremities Exam Extremities Exam: absent: Calf Tenderness Additional comments: LE focused exam: Vasc: DP/PT pulses palpable 2/4 B/L. Skin temperature warm to warm from proximal to distal. CFT < 3 seconds to all digits B/L. No pedal edema noted. Derm: Superficial uceration secondary to calciphylaxis seen on medial calf of right leg measuring roughly 2.0 cm x 1.3 cm x 0.1 cm with granular wound base and hyperkeratotic wound borders. No woo-wound erythema, no malodor, no purulence, no tunneling, tracking, undermining, probe to bone or fluctuance. No maceration, xerosis, abnormal pigmentation or abnormal growths noted to b/l LE. Posterior right heel wound measuring roughly 0.5 cm x 0.5 cm x 0.1 cm noted. Wound base is fibronecrotic with no drainage, malodor, erythema or other clinical signs of infection. No tracking, tunneling or undermining. No probe to bone Neuro: Epicritic and protective sensation grossly intact B/L. Ortho: Mild-moderate tenderness to palpation of right leg ulceration. Pain with palpation to left heel - Neurological Exam Neurological Exam: Alert, Awake, Oriented x3 - Psychiatric Exam Psychiatric exam: Normal Affect, Normal Mood Assessment and Plan - Assessment and Plan (Free Text) Assessment: 57F seen for ulcerations of right LE and left heel pain secondary to calciphylaxis Plan: Patient seen and evaluated Discussed plan with Dr. Blanton Afebrile, absent leukocytosis Patient for BKA with Dr. Hutson on Thursday B/l heels and all wounds dressed with topical lidocaine and optifoam C/w multipodus boots on feet at all times while in bed No plan for podiatric surgical intervention at this time Podiatry will continue to follow while patient in house <Wendy Blanton - Last Filed: 04/14/18 12:38> Objective - Vital Signs/Intake and Output Vital Signs (last 24 hours): Temp Pulse Resp BP Pulse Ox 98.7 F 78 20 127/49 L 96 04/14/18 06:00 04/14/18 06:00 04/14/18 06:00 04/14/18 06:00 04/14/18 06:00 Intake and Output: 04/14/18 04/14/18 06:59 18:59 Intake Total 270 Balance 270 - Medications Medications: Current Medications Albuterol Sulfate (Albuterol 0.083% Inhal Michelle (2.5 Mg/3 Ml) Ud) 2.5 mg IH [id number] [facility] Last Admin: 04/14/18 08:25 Dose: 2.5 mg Alprazolam (Xanax) 0.25 mg PO HS [facility] PRN Reason: Protocol Stop: 04/21/18 22:01 Amlodipine Besylate (Norvasc) 10 mg PO DAILY [facility] Last Admin: 04/13/18 10:00 Dose: 10 mg Aspirin (Ecotrin) 81 mg PO DAILY [facility] Last Admin: 04/14/18 09:33 Dose: Not Given Atorvastatin Calcium (Lipitor) 20 mg PO HS [facility] Last Admin: 04/13/18 21:00 Dose: 20 mg Calcium Acetate (Phoslo) 667 mg PO WM [facility] Last Admin: 04/14/18 08:13 Dose: 667 mg Carvedilol (Coreg) 12.5 mg PO BID [facility] Last Admin: 04/14/18 09:33 Dose: Not Given Clonidine HCl (Catapres) 0.1 mg PO TID [facility] Last Admin: 04/14/18 09:33 Dose: Not Given Clopidogrel Bisulfate (Plavix) 75 mg PO DAILY [facility] Last Admin: 04/09/18 09:14 Dose: 75 mg Diphenhydramine HCl (Benadryl Maximum Strength 1%) 0 ea TOP Q6H PRN PRN Reason: Itching / Pruritus Last Admin: 04/12/18 09:02 Dose: 1 applic Heparin Sodium (Porcine) (Heparin) 5,000 units SC Q12 [facility] PRN Reason: Protocol Last Admin: 04/13/18 23:32 Dose: 5,000 units Labetalol HCl (Trandate) 300 mg PO Q8H PRN PRN Reason: HTN Levetiracetam (Keppra) 500 mg PO BID [facility] Last Admin: 04/13/18 17:24 Dose: 500 mg Levothyroxine Sodium (Synthroid) 75 mcg PO DAILY [facility] Last Admin: 04/13/18 10:00 Dose: 75 mcg Lisinopril (Zestril) 40 mg PO DAILY [facility] Last Admin: 04/13/18 09:59 Dose: 40 mg Lorazepam (Ativan) 1 mg IVP Q6H PRN; Protocol PRN Reason: Anxiety Morphine Sulfate (Morphine) 5 mg IVP Q4 PRN PRN Reason: Pain, moderate (4-7) Last Admin: 04/14/18 04:12 Dose: 5 mg Nifedipine (Procardia Xl) 30 mg PO DAILY [facility] Last Admin: 04/13/18 09:59 Dose: 30 mg Ondansetron HCl (Zofran Inj) 4 mg IVP Q6H PRN PRN Reason: Nausea/Vomiting Last Admin: 04/14/18 08:13 Dose: 4 mg Pantoprazole Sodium (Protonix Ec Tab) 40 mg PO DAILY [facility] Last Admin: 04/13/18 10:00 Dose: 40 mg Sildenafil Citrate (Revatio) 20 mg PO Q8H [facility] Last Admin: 04/14/18 04:17 Dose: 20 mg - Labs Labs: 04/14/18 10:10 04/14/18 10:10 PT 11.3 SECONDS (9.4-12.5) 04/12/18 06:45 INR 0.98 04/12/18 06:45 APTT 33.2 Seconds (25.1-36.5) 04/12/18 06:45 Attending/Attestation - Attestation I have personally seen and examined this patient.: Yes I have fully participated in the care of the patient.: Yes I have reviewed all pertinent clinical information, including history, physical exam and plan: Yes
[2018-04-11] MEDS: DiphenhydrAMINE 1% 1 EA TUBE TOP PRN (15:46)
--- NOTE | 2018-04-11 20:04 | PN ---
Copied To: Jose Richards MD Attending MD: Jose Richards MD DATE: 04/11/2018 SUBJECTIVE: The patient has no complaints of any chest pain. No shortness of breath. No headaches or dizziness. PHYSICAL EXAMINATION: VITAL SIGNS: Temperature is 98.5, pulse of 94, blood pressure is 160/75, respirations 18. GENERAL: The patient is lying in bed, flat, comfortable. HEENT: No oral lesion. Anicteric sclerae. Moist mucosa. NECK: No JVD, adenopathy, or thyromegaly. CARDIOVASCULAR: S1 and S2, regular. No murmurs, rubs, or gallops. LUNGS: Clear to auscultation bilaterally. No wheeze, rales, or rhonchi. ABDOMEN: Bowel sounds are positive, soft, nontender and nondistended. EXTREMITIES: No cyanosis, clubbing or edema. LABORATORY DATA: White count of 5.7, hemoglobin 9.9. Creatinine is 4.6. ASSESSMENT: 1. Peripheral arterial disease. 2. Coronary artery disease status post coronary artery bypass graft. 3. Right carotid angioplasty. 4. End-stage renal disease, on hemodialysis. 5. Hypertension. PLAN: The patient is going to have right BKA done in the morning. She is currently on clonidine for her hypertension. She is on aspirin. She is going to be on morphine for pain, this will be continued. I will renew her morphine meds.. The patient is on amlodipine for her hypertension. She is on Protonix daily. She is on Synthroid for hypothyroidism. She is on lisinopril for her hypertension. She is continued to be on dialysis. She is on a renal diet. She is being followed by Nephrology and Cardiology. Jose Richards MD
[2018-04-12 02:22] LABS: ARTERIAL BLOOD GAS HEMOGLOBIN 10.4 g/dL (11.7-17.4); ARTERIAL BLOOD GAS O2 CAPACITY 14.3 mL/dl (16-24); ARTERIAL BLOOD GAS O2 CONTENT 13.1 ML/dl (15-23); ARTERIAL BLOOD GAS O2 SAT 91.5 % (95-98); ARTERIAL BLOOD GAS PCO2 63 mm/Hg (35-45); ARTERIAL BLOOD GAS PH 7.24 (7.35-7.45); ARTERIAL BLOOD GAS TCO2 28.9 mmol.L (22-28)
[2018-04-12] MEDS: Albuterol 0.083% Inhal Sol (2.5 mg/3 mL) UD IH SCH ×4 (02:49→19:52)
[2018-04-12] MEDS: Sildenafil 20 MG TAB PO SCH ×3 (06:42→20:12)
--- NOTE | 2018-04-12 06:55 | CARD ---
APPROVED REPORT Date of service: 04/10/2018 EKG Measurement Heart [id number] <Conclusion> Normal sinus rhythm Possible Left atrial enlargement Left ventricular hypertrophy with repolarization abnormality Abnormal ECG
[2018-04-12 07:46] LABS: BASO # 0.02 K/mm3 (0.0-2.0); BASO % 0.2 % (0.0-3.0); EOS # 0.1 (0.0-0.7); EOS % 1.1 % (1.5-5.0); GRAN # 5.93 (1.4-6.5); GRAN % 72.4 % (50.0-68.0); LYMPH # 1.6 (1.2-3.4); LYMPH % 19.2 % (22.0-35.0); MEAN CELL VOLUME 90.8 fl (80.0-105.0); MEAN CORPUSCULAR HEMOGLOBIN 27.1 pg (25.0-35.0); MEAN CORPUSCULAR HGB CONC 29.9 g/dl (31.0-37.0); MEAN PLATELET VOLUME 11.5 fl (7.0-11.0); MONO # 0.6 (0.1-0.6); MONO % 7.1 % (1.0-6.0); RBC 3.69 10^6/uL (3.5-6.1); WHITE BLOOD COUNT 8.2 10^3/ul (4.5-11.0)
[2018-04-12 07:55] LABS: INR 0.98; PROTHROMBIN TIME 11.3 SECONDS (9.4-12.5)
[2018-04-12 07:57] LABS: PARTIAL THROMBOPLASTIN TIME 33.2 Seconds (25.1-36.5)
--- NOTE | 2018-04-12 08:03 | CP.PCM.PN ---
Subjective - Date & Time of Evaluation Date of Evaluation: 04/12/18 Time of Evaluation: 06:05 - Subjective Subjective: Awake, anxious,on BIPAP/CPAP Reason for consultation and follow up: Cardiac evaluation and risk stratification for right below knee amputation Seen and examined by me and Dr. Ontiveros Objective - Vital Signs/Intake and Output Vital Signs (last 24 hours): Temp Pulse Resp BP Pulse Ox 98.2 F 91 H 22 152/58 H 97 04/12/18 06:00 04/12/18 07:23 04/12/18 06:00 04/12/18 06:00 04/12/18 06:00 - Medications Medications: Current Medications Albuterol Sulfate (Albuterol 0.083% Inhal Michelle (2.5 Mg/3 Ml) Ud) 2.5 mg IH [id number] [facility] Last Admin: 04/12/18 07:15 Dose: 2.5 mg Amlodipine Besylate (Norvasc) 10 mg PO DAILY [facility] Last Admin: 04/11/18 10:11 Dose: 10 mg Aspirin (Ecotrin) 81 mg PO DAILY [facility] Last Admin: 04/10/18 12:05 Dose: 81 mg Atorvastatin Calcium (Lipitor) 20 mg PO HS [facility] Last Admin: 04/11/18 21:16 Dose: 20 mg Carvedilol (Coreg) 12.5 mg PO BID [facility] Last Admin: 04/11/18 17:41 Dose: 12.5 mg Clonidine HCl (Catapres) 0.1 mg PO TID [facility] Last Admin: 04/11/18 17:41 Dose: 0.1 mg Clopidogrel Bisulfate (Plavix) 75 mg PO DAILY [facility] Last Admin: 04/09/18 09:14 Dose: 75 mg Diphenhydramine HCl (Benadryl Maximum Strength 1%) 0 ea TOP Q6H PRN PRN Reason: Itching / Pruritus Last Admin: 04/11/18 15:46 Dose: 1 applic Labetalol HCl (Trandate) 300 mg PO Q8H PRN PRN Reason: HTN Levetiracetam (Keppra) 500 mg PO BID [facility] Last Admin: 04/11/18 17:41 Dose: 500 mg Levothyroxine Sodium (Synthroid) 75 mcg PO DAILY [facility] Last Admin: 04/11/18 10:11 Dose: 75 mcg Lisinopril (Zestril) 40 mg PO DAILY [facility] Last Admin: 04/11/18 10:12 Dose: 40 mg Morphine Sulfate (Morphine) 5 mg IVP Q4 PRN PRN Reason: Pain, moderate (4-7) Last Admin: 04/11/18 21:39 Dose: 5 mg Nifedipine (Procardia Xl) 30 mg PO DAILY [facility] Last Admin: 04/11/18 10:11 Dose: 30 mg Ondansetron HCl (Zofran Inj) 4 mg IVP Q6H PRN PRN Reason: Nausea/Vomiting Last Admin: 04/11/18 16:41 Dose: 4 mg Pantoprazole Sodium (Protonix Ec Tab) 40 mg PO DAILY [facility] Last Admin: 04/11/18 10:10 Dose: 40 mg Sildenafil Citrate (Revatio) 20 mg PO Q8H [facility] Last Admin: 04/12/18 06:42 Dose: Not Given - Labs Labs: 04/12/18 06:45 PT 11.3 SECONDS (9.4-12.5) 04/12/18 06:45 INR 0.98 04/12/18 06:45 APTT 33.2 Seconds (25.1-36.5) 04/12/18 06:45 - ENT Exam ENT Exam: Mucous Membranes Dry - Respiratory Exam Respiratory Exam: Decreased Breath Sounds, NORMAL BREATHING PATTERN - Cardiovascular Exam Cardiovascular Exam: +S1, +S2 Additional comments: right chest shiley catheter - GI/Abdominal Exam GI & Abdominal Exam: Soft, Normal Bowel Sounds - Extremities Exam Additional comments: right foot cellulitis - Neurological Exam Neurological Exam: Alert, Awake - Psychiatric Exam Psychiatric exam: Anxious - Skin Skin Exam: Dry, Warm Assessment and Plan - Assessment and Plan (Free Text) Assessment: A 57 year old female who came in to the ER due to worsening rifht foot pain. Consult was called to clear patient for surgery, possible right below knee amputation. History of diabetes, pulmonary hypertension, hyperlipidemia, asthma , emphysema, PAD, COPD, CHF, DVT, CAD, CVA, seizure, ESRD on hemodialysis on / /Thu, GERD, gastritis,diverticulitis, anemia, hypothyroidism, arthritis, and anxiety. Echo 08/20/17- LVEF 65%,moderate to severe LV hyperthrophy,trace MR/AR,TR. 08/21 Stress test- normal. Will clear patient for surgery. Plan: Cleared for surgery For BKA today Episode of shortness of breath last night, placed on BIPAP/CPAP Very anxious Will follow up postoperatively Continue current treatment Plan and treatment discussed with Dr. Ontiveros
[2018-04-12 08:05] LABS: ALB/GLOB RATIO 1.7 (1.1-1.8); ALBUMIN 4.1 g/dL (3.0-4.8); CALCIUM 8.2 mg/dL (8.4-10.5)
[2018-04-12] MEDS ORDERED: Sod Polystyrene Sulf 15 gm/60 ml Susp PR ONE (08:27)
[2018-04-12] MEDS: DiphenhydrAMINE 1% 1 EA TUBE TOP PRN (09:02)
--- NOTE | 2018-04-12 09:07 | CP.PCM.PN ---
Subjective - Date & Time of Evaluation Date of Evaluation: 04/12/18 Time of Evaluation: 07:40 - Subjective Subjective: General Surgery Progress Note for Dr. Hutson Patient seen and examined at bedside this AM. Overnight, she was noted to be slightly altered, aaox2, taking a long time to respond to staff questions. As per nurse, patient was staring off to the wall and lips were slightly cyanotic. Responded appropriately to verbal cues. She was asked if she was okay and pt said she felt anxious, lips were no longer cyanotic. VS obtained: 146/69, P 94, RR18, T 99.0, O2sat 83%-87% on 3L NC. Stat ABG was ordered, patient was found to be acidotic. Was placed on BiPAP /, tolerated well. Repeat ABG was ordered this AM. Objective - Vital Signs/Intake and Output Vital Signs (last 24 hours): Temp Pulse Resp BP Pulse Ox 98.2 F 91 H 22 152/58 H 97 04/12/18 06:00 04/12/18 07:23 04/12/18 06:00 04/12/18 06:00 04/12/18 06:00 - Medications Medications: Current Medications Albuterol Sulfate (Albuterol 0.083% Inhal Michelle (2.5 Mg/3 Ml) Ud) 2.5 mg IH [id number] [facility] Last Admin: 04/12/18 07:15 Dose: 2.5 mg Amlodipine Besylate (Norvasc) 10 mg PO DAILY [facility] Last Admin: 04/11/18 10:11 Dose: 10 mg Aspirin (Ecotrin) 81 mg PO DAILY [facility] Last Admin: 04/10/18 12:05 Dose: 81 mg Atorvastatin Calcium (Lipitor) 20 mg PO HS [facility] Last Admin: 04/11/18 21:16 Dose: 20 mg Carvedilol (Coreg) 12.5 mg PO BID [facility] Last Admin: 04/11/18 17:41 Dose: 12.5 mg Clonidine HCl (Catapres) 0.1 mg PO TID [facility] Last Admin: 04/11/18 17:41 Dose: 0.1 mg Clopidogrel Bisulfate (Plavix) 75 mg PO DAILY [facility] Last Admin: 04/09/18 09:14 Dose: 75 mg Diphenhydramine HCl (Benadryl Maximum Strength 1%) 0 ea TOP Q6H PRN PRN Reason: Itching / Pruritus Last Admin: 04/11/18 15:46 Dose: 1 applic Labetalol HCl (Trandate) 300 mg PO Q8H PRN PRN Reason: HTN Levetiracetam (Keppra) 500 mg PO BID [facility] Last Admin: 04/11/18 17:41 Dose: 500 mg Levothyroxine Sodium (Synthroid) 75 mcg PO DAILY [facility] Last Admin: 04/11/18 10:11 Dose: 75 mcg Lisinopril (Zestril) 40 mg PO DAILY [facility] Last Admin: 04/11/18 10:12 Dose: 40 mg Morphine Sulfate (Morphine) 5 mg IVP Q4 PRN PRN Reason: Pain, moderate (4-7) Last Admin: 04/11/18 21:39 Dose: 5 mg Nifedipine (Procardia Xl) 30 mg PO DAILY [facility] Last Admin: 04/11/18 10:11 Dose: 30 mg Ondansetron HCl (Zofran Inj) 4 mg IVP Q6H PRN PRN Reason: Nausea/Vomiting Last Admin: 04/11/18 16:41 Dose: 4 mg Pantoprazole Sodium (Protonix Ec Tab) 40 mg PO DAILY [facility] Last Admin: 04/11/18 10:10 Dose: 40 mg Sildenafil Citrate (Revatio) 20 mg PO Q8H [facility] Last Admin: 04/12/18 06:42 Dose: Not Given - Labs Labs: 04/12/18 06:45 04/12/18 06:45 PT 11.3 SECONDS (9.4-12.5) 04/12/18 06:45 INR 0.98 04/12/18 06:45 APTT 33.2 Seconds (25.1-36.5) 04/12/18 06:45 - Constitutional Appears: Confused - Head Exam Head Exam: ATRAUMATIC, NORMAL INSPECTION, NORMOCEPHALIC - Respiratory Exam Additional comments: on BiPAP 08/12 FIO2 of 50%, tolerating well - Cardiovascular Exam Cardiovascular Exam: Tachycardia - GI/Abdominal Exam GI & Abdominal Exam: Soft, Normal Bowel Sounds - Extremities Exam Additional comments: R foot cellulitis - Neurological Exam Neurological Exam: Alert, Altered, Awake - Psychiatric Exam Psychiatric exam: Anxious - Skin Skin Exam: Dry, Warm Assessment and Plan - Assessment and Plan (Free Text) Assessment: 57F with multiple co-morbidities & severe PVD s/p angioplasty, stenting & bypass presents with nonhealing RLE wounds requiring amputation. Based on NSQIP Surgical risk calculator her risk of serious complication is 20% and any complication is 24%. Plan: -Pt was found to be acidotic, unstable vitals, requiring BiPAP -Cancel OR for today -HD done on Thursday 04/12 -OR 04/13 for R BKA -NPO past midnight Case discussed with Dr. Hutson, who agrees with management as per above Michael Mcnulty, PGY-1
[2018-04-12] MEDS: Levothyroxine 75 MCG TAB PO SCH (09:09)
[2018-04-12] MEDS: NIFEdipine 30 mg ER Tab PO SCH (09:09)
[2018-04-12] MEDS: Pantoprazole 40 mg EC Tab PO SCH (09:10)
--- NOTE | 2018-04-12 09:24 | PN ---
Copied To: Brittany Coffman MD Attending MD: Brittany Coffman MD DATE: 04/09/2018 SUBJECTIVE: The patient is a 57-year-old, complains of pain in the right foot and the leg. She is upset, crying. PHYSICAL EXAMINATION: VITAL SIGNS: She is afebrile, pulse 69, respirations 20, blood pressure 130/60. LUNGS: Bilateral fair airflow. No rhonchi or crackle. HEART: S1 and S2 audible. ABDOMEN: Soft, nontender. No rebound, no guarding. NEUROLOGIC: She is awake and alert, able to communicate. Moves both extremities, complains of pain in the left lower leg and the leg, there is foot erythema. ASSESSMENT: 1. Severe peripheral vascular disease. 2. End-stage renal disease, on hemodialysis. 3. Pulmonary hypertension. 4. Coronary artery disease, status post angioplasty. 5. History of seizure disorder. 6. Chronic anemia. PLAN: The patient is on aspirin that needs to be held, and otherwise we will continue all medications. She is scheduled for right BKA on Thursday. Brittany Coffman MD
--- NOTE | 2018-04-12 17:40 | PN ---
Copied To: Tamanna Smith MD Attending MD: Tamanna Smith MD DATE: 04/12/2018 SUBJECTIVE: The patient is seen lying in bed. She is diaphoretic, she is groggy, seems to be confused. Events of overnight are noted. As per the nursing staff, the patient was unresponsive, profoundly acidotic. She was disoriented. She was oriented only to place and person. Stat ABG was ordered. She was found to be acidotic. She was placed on BiPAP. This morning, she was given Kayexalate for her potassium of 5.8. PHYSICAL EXAMINATION GENERAL: Middle-aged lady, lying in bed. VITAL SIGNS: Blood pressure 165/70, heart rate 80, respiratory rate 18, temperature 98. HEENT: Normocephalic, atraumatic, positive pallor. NECK: Supple, no JVD. LUNGS: Bilateral equal air entry, bilateral rhonchi, no rales. CARDIAC: S1 and S2, regular rate and rhythm, no murmur, no rub. ABDOMEN: Soft, nondistended, nontender, bowel sounds present. EXTREMITIES: Dressing of the right foot, dressing of the right lower extremity. LABORATORY DATA: WBC 8.2, hemoglobin 10, hematocrit 34, platelets 190. Sodium 132, potassium 5.8, chloride 91, CO2 of 25, BUN 86, creatinine 7.6, glucose 99, calcium 8.2, AST of 34, ALT 17. ABG at 02:00 a.m. showed a pH of 7.2, pO2 of 58, pCO2 of 63. CURRENT MEDICATIONS: List reviewed. ASSESSMENT: 1. Hyperkalemia, ?secondary to low flow state. 2. Altered mental status, lethargy, ?secondary to pain medication. 3. Hypertension. 4. Severe peripheral vascular disease. 5. Anemia of chronic kidney disease. 6. End-stage renal disease. PLAN: 1. We will dialyze the patient today because of hyperkalemia and also because of possible uremia. 2. The patient was scheduled for a right BKA today, procedure has been deferred/postponed. 3. Continue to monitor closely. 4. Limit pain medication. 5. Discussed with son and daughter at bedside at length. Tamanna Smith MD [facility] # [id number]
--- NOTE | 2018-04-12 22:55 | PN ---
Copied To: Brittany Coffman MD Attending MD: Brittany Coffman MD DATE: 04/12/2018 SUBJECTIVE: The patient is 57 years old, who was supposed to be going to OR for right BKA, but the patient was found to be confused, disoriented, altered mental status. She was hypoxic, so she was started on BiPAP. Seems to be doing well. Her OR was canceled. When I examined the patient, she is awake, alert, oriented, communicative. PHYSICAL EXAMINATION: VITAL SIGNS: She is afebrile, pulse 80, respirations 20, blood pressure 165/70. LUNGS: Bilateral fair airflow. No rhonchi or crackle. HEART: S1 and S2 audible. ABDOMEN: Soft. Nontender. No rebound. No guarding. NEUROLOGICAL: She is awake, alert, oriented, communicative. EXTREMITIES: Right foot erythema with pain below knee. LABORATORY EXAM: WBC 8.2, hemoglobin 10, hematocrit 33, platelet 190. PT 11.3, INR 0.98. Chemistry: Sodium 132, potassium 5.8, chloride 91, CO2 of 25, BUN is 86, creatinine 7.6, blood sugar of 99. ASSESSMENT: 1. Severe peripheral vascular disease. 2. Right foot ischemic pain. 3. End-stage renal disease, on hemodialysis. 4. Hyperkalemia. 5. Altered mental status secondary to narcotics. 6. Hypoxia. 7. Hypertension. 8. Pulmonary hypertension. 9. Chronic anemia. PLAN: The patient will be dialyzed. So plan is to cut down her analgesic. Continue nebulizer treatments. Continue her on Keppra. We will follow up the patient in the a.m. Brittany Coffman MD
[2018-04-13] MEDS: Albuterol 0.083% Inhal Sol (2.5 mg/3 mL) UD IH SCH ×4 (02:39→19:42)
[2018-04-13] MEDS: Sildenafil 20 MG TAB PO SCH ×3 (04:39→20:06)
--- NOTE | 2018-04-13 06:57 | CP.PCM.PN ---
Subjective - Date & Time of Evaluation Date of Evaluation: 04/13/18 Time of Evaluation: 06:15 - Subjective Subjective: Awake, alert, nauseaus, on BIPAP/CPAP Reason for consultation and follow up: Cardiac evaluation and risk stratification for right below knee amputation Seen and examined by me and Dr. Ontiveros Objective - Vital Signs/Intake and Output Vital Signs (last 24 hours): Temp Pulse Resp BP Pulse Ox 97.2 F L 85 19 140/64 97 04/12/18 23:02 04/12/18 23:02 04/12/18 23:02 04/12/18 23:02 04/12/18 23:02 Intake and Output: 04/12/18 04/13/18 18:59 06:59 Intake Total 300 Output Total 2 Balance 298 - Medications Medications: Current Medications Albuterol Sulfate (Albuterol 0.083% Inhal Michelle (2.5 Mg/3 Ml) Ud) 2.5 mg IH [id number] [facility] Last Admin: 04/13/18 02:39 Dose: Not Given Amlodipine Besylate (Norvasc) 10 mg PO DAILY [facility] Last Admin: 04/12/18 09:09 Dose: 10 mg Aspirin (Ecotrin) 81 mg PO DAILY [facility] Last Admin: 04/10/18 12:05 Dose: 81 mg Atorvastatin Calcium (Lipitor) 20 mg PO HS [facility] Last Admin: 04/12/18 21:00 Dose: 20 mg Carvedilol (Coreg) 12.5 mg PO BID [facility] Last Admin: 04/12/18 17:37 Dose: 12.5 mg Clonidine HCl (Catapres) 0.1 mg PO TID [facility] Last Admin: 04/12/18 17:37 Dose: 0.1 mg Clopidogrel Bisulfate (Plavix) 75 mg PO DAILY [facility] Last Admin: 04/09/18 09:14 Dose: 75 mg Diphenhydramine HCl (Benadryl Maximum Strength 1%) 0 ea TOP Q6H PRN PRN Reason: Itching / Pruritus Last Admin: 04/12/18 09:02 Dose: 1 applic Labetalol HCl (Trandate) 300 mg PO Q8H PRN PRN Reason: HTN Levetiracetam (Keppra) 500 mg PO BID [facility] Last Admin: 04/12/18 17:37 Dose: 500 mg Levothyroxine Sodium (Synthroid) 75 mcg PO DAILY [facility] Last Admin: 04/12/18 09:09 Dose: 75 mcg Lisinopril (Zestril) 40 mg PO DAILY [facility] Last Admin: 04/12/18 09:09 Dose: 40 mg Lorazepam (Ativan) 1 mg IVP Q6H PRN; Protocol PRN Reason: Anxiety Morphine Sulfate (Morphine) 5 mg IVP Q4 PRN PRN Reason: Pain, moderate (4-7) Last Admin: 04/11/18 21:39 Dose: 5 mg Nifedipine (Procardia Xl) 30 mg PO DAILY [facility] Last Admin: 04/12/18 09:09 Dose: 30 mg Ondansetron HCl (Zofran Inj) 4 mg IVP Q6H PRN PRN Reason: Nausea/Vomiting Last Admin: 04/13/18 02:46 Dose: 4 mg Pantoprazole Sodium (Protonix Ec Tab) 40 mg PO DAILY [facility] Last Admin: 04/12/18 09:10 Dose: 40 mg Sildenafil Citrate (Revatio) 20 mg PO Q8H [facility] Last Admin: 04/13/18 04:39 Dose: Not Given - Labs Labs: 04/12/18 06:45 04/12/18 06:45 PT 11.3 SECONDS (9.4-12.5) 04/12/18 06:45 INR 0.98 04/12/18 06:45 APTT 33.2 Seconds (25.1-36.5) 04/12/18 06:45 - Eye Exam Eye Exam: Normal appearance - ENT Exam ENT Exam: Mucous Membranes Dry - Respiratory Exam Respiratory Exam: Decreased Breath Sounds, NORMAL BREATHING PATTERN - Cardiovascular Exam Cardiovascular Exam: +S1, +S2 Additional comments: right chest shiley catheter - GI/Abdominal Exam GI & Abdominal Exam: Soft, Normal Bowel Sounds - Extremities Exam Additional comments: right foot dressing - Neurological Exam Neurological Exam: Alert, Awake, Oriented x3 - Psychiatric Exam Psychiatric exam: Normal Affect - Skin Skin Exam: Dry, Warm Assessment and Plan - Assessment and Plan (Free Text) Assessment: A 57 year old female who came in to the ER due to worsening rifht foot pain. Consult was called to clear patient for surgery, possible right below knee amputation. History of diabetes, pulmonary hypertension, hyperlipidemia, asthma , emphysema, PAD, COPD, CHF, DVT, CAD, CVA, seizure, ESRD on hemodialysis on / /Thu, GERD, gastritis,diverticulitis, anemia, hypothyroidism, arthritis, and anxiety. Echo 08/20/17- LVEF 65%,moderate to severe LV hyperthrophy,trace MR/AR,TR. 08/21 Stress test- normal. Cleared for surgery. Had episode of altered mental status yesterday,surgery postponed Plan: Awake, alert,calm Had hemodialysis yesterday Rescheduled right BKA today On BIPAP/CPAP [place] On Norvasc 10 mg daily,ASA 81 mg daily, Lipitor 20 mg daily Coreg 12.5 mg BID,Catapres 0.1 mg TID,Zestril 40 mg daily Procardia XL 30 mg daily,Revatio 20 mg q 8 hours Will follow up postoperatively Continue current treatment Plan and treatment discussed with Dr. Ontiveros
[2018-04-13 07:03] LABS: BASO # 0.02 K/mm3 (0.0-2.0); BASO % 0.3 % (0.0-3.0); EOS % 0.7 % (1.5-5.0); GRAN # 4.12 (1.4-6.5); GRAN % 71.6 % (50.0-68.0); HEMOGLOBIN 9.7 g/dL (12.0-16.0); LYMPH # 1.1 (1.2-3.4); LYMPH % 18.9 % (22.0-35.0); MEAN CELL VOLUME 89.6 fl (80.0-105.0); MEAN CORPUSCULAR HEMOGLOBIN 27.3 pg (25.0-35.0); MEAN CORPUSCULAR HGB CONC 30.5 g/dl (31.0-37.0); MEAN PLATELET VOLUME 12.1 fl (7.0-11.0); MONO # 0.5 (0.1-0.6); MONO % 8.5 % (1.0-6.0); RBC 3.55 10^6/uL (3.5-6.1); RED CELL DISTRIBUTION WIDTH 16.7 % (11.5-14.5); WHITE BLOOD COUNT 5.8 10^3/ul (4.5-11.0)
[2018-04-13 08:06] LABS: ALBUMIN 3.8 g/dL (3.0-4.8)
[2018-04-13 08:07] LABS: ALB/GLOB RATIO 1.6 (1.1-1.8)
--- NOTE | 2018-04-13 09:20 | CP.PCM.PN ---
Subjective - Date & Time of Evaluation Date of Evaluation: 04/13/18 Time of Evaluation: 07:00 - Subjective Subjective: Surgery Progress Note for Dr. Hutson Pt seen and examined at bedside. Pt appears anxious, states that she wants to hold off her surgery due to wanting to speak to her kids about the procedure who have yet to arrive at the hospital. Pt was refusing to wear BiPap overnight as per RN note. Otherwise no acute events reported. Objective - Vital Signs/Intake and Output Vital Signs (last 24 hours): Temp Pulse Resp BP Pulse Ox 99.5 F 93 H 20 180/69 H 99 04/13/18 06:00 04/13/18 06:00 04/13/18 06:00 04/13/18 06:00 04/13/18 06:00 Intake and Output: 04/13/18 04/13/18 06:59 18:59 Intake Total 300 Output Total 2 Balance 298 - Medications Medications: Current Medications Albuterol Sulfate (Albuterol 0.083% Inhal Michelle (2.5 Mg/3 Ml) Ud) 2.5 mg IH [id number] [facility] Last Admin: 04/13/18 08:26 Dose: 2.5 mg Amlodipine Besylate (Norvasc) 10 mg PO DAILY [facility] Last Admin: 04/12/18 09:09 Dose: 10 mg Aspirin (Ecotrin) 81 mg PO DAILY [facility] Last Admin: 04/10/18 12:05 Dose: 81 mg Atorvastatin Calcium (Lipitor) 20 mg PO HS [facility] Last Admin: 04/12/18 21:00 Dose: 20 mg Carvedilol (Coreg) 12.5 mg PO BID [facility] Last Admin: 04/12/18 17:37 Dose: 12.5 mg Clonidine HCl (Catapres) 0.1 mg PO TID [facility] Last Admin: 04/12/18 17:37 Dose: 0.1 mg Clopidogrel Bisulfate (Plavix) 75 mg PO DAILY [facility] Last Admin: 04/09/18 09:14 Dose: 75 mg Diphenhydramine HCl (Benadryl Maximum Strength 1%) 0 ea TOP Q6H PRN PRN Reason: Itching / Pruritus Last Admin: 04/12/18 09:02 Dose: 1 applic Labetalol HCl (Trandate) 300 mg PO Q8H PRN PRN Reason: HTN Levetiracetam (Keppra) 500 mg PO BID [facility] Last Admin: 04/12/18 17:37 Dose: 500 mg Levothyroxine Sodium (Synthroid) 75 mcg PO DAILY [facility] Last Admin: 04/12/18 09:09 Dose: 75 mcg Lisinopril (Zestril) 40 mg PO DAILY [facility] Last Admin: 04/12/18 09:09 Dose: 40 mg Lorazepam (Ativan) 1 mg IVP Q6H PRN; Protocol PRN Reason: Anxiety Morphine Sulfate (Morphine) 5 mg IVP Q4 PRN PRN Reason: Pain, moderate (4-7) Last Admin: 04/11/18 21:39 Dose: 5 mg Nifedipine (Procardia Xl) 30 mg PO DAILY [facility] Last Admin: 04/12/18 09:09 Dose: 30 mg Ondansetron HCl (Zofran Inj) 4 mg IVP Q6H PRN PRN Reason: Nausea/Vomiting Last Admin: 04/13/18 02:46 Dose: 4 mg Pantoprazole Sodium (Protonix Ec Tab) 40 mg PO DAILY [facility] Last Admin: 04/12/18 09:10 Dose: 40 mg Sildenafil Citrate (Revatio) 20 mg PO Q8H [facility] Last Admin: 04/13/18 04:39 Dose: Not Given - Labs Labs: 04/13/18 06:20 04/13/18 06:20 PT 11.3 SECONDS (9.4-12.5) 04/12/18 06:45 INR 0.98 04/12/18 06:45 APTT 33.2 Seconds (25.1-36.5) 04/12/18 06:45 - Constitutional Appears: Non-toxic, No Acute Distress, Chronically Ill - Head Exam Head Exam: ATRAUMATIC, NORMAL INSPECTION - Eye Exam Eye Exam: EOMI, Normal appearance, PERRL - ENT Exam ENT Exam: Mucous Membranes Moist - Neck Exam Neck Exam: Full ROM, Normal Inspection - Respiratory Exam Respiratory Exam: Clear to Ausculation Bilateral, NORMAL BREATHING PATTERN - Cardiovascular Exam Cardiovascular Exam: REGULAR RHYTHM, +S1, +S2 - GI/Abdominal Exam GI & Abdominal Exam: Soft, Normal Bowel Sounds - Extremities Exam Additional comments: RLE wrapped with dressing, dry, intact - Neurological Exam Neurological Exam: Alert, Awake, CN II-XII Intact, Oriented x3 - Psychiatric Exam Psychiatric exam: Anxious - Skin Skin Exam: Dry, Intact, Warm Assessment and Plan - Assessment and Plan (Free Text) Assessment: 57 y o female with multiple co-morbidities & severe PVD s/p angioplasty, stenting & bypass presents with nonhealing RLE wounds requiring amputation. Based on NSQIP Surgical risk calculator her risk of serious complication is 20% and any complication is 24%. Plan: -OR cancelled today due to pt preference and needing more time to discuss options with her family -R BKA tentatively re-scheduled for 04/15 -S/p hemodialysis on 04/12 -Pt refusing to wear BiPap overnight -Continue to monitor -Further recommendations per Dr. Haresh Banegas, DO PGY-1
[2018-04-13] MEDS: NIFEdipine 30 mg ER Tab PO SCH (09:59)
[2018-04-13] MEDS: Pantoprazole 40 mg EC Tab PO SCH (10:00)
[2018-04-13] MEDS: Levothyroxine 75 MCG TAB PO SCH (10:00)
--- NOTE | 2018-04-13 13:55 | CP.PCM.PN ---
<Trevor De La Rosa - Last Filed: 04/13/18 13:51> Subjective - Date & Time of Evaluation Date of Evaluation: 04/13/18 Time of Evaluation: 13:51 - Subjective Subjective: Podiatry Progress Note for Dr. 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 Patient is AAO x 3 and NAD at time of visit. Patient states that the pain to her posterior heels are continuing to worsen. Denies any acute overnight events or further pedal complaints at this time. Denies any recent N/V/F/C/CP/SOB/D/ posterior calf pain when squeezed. Patient states that she refused to have BKA performed because she could not handle it mentally and decided to push the surgery to later this week. Objective - Vital Signs/Intake and Output Vital Signs (last 24 hours): Temp Pulse Resp BP Pulse Ox 99.5 F 80 20 180/90 H 99 04/13/18 06:00 04/13/18 10:00 04/13/18 06:00 04/13/18 10:00 04/13/18 06:00 Intake and Output: 04/13/18 04/13/18 06:59 18:59 Intake Total 300 Output Total 2 Balance 298 - Medications Medications: Current Medications Albuterol Sulfate (Albuterol 0.083% Inhal Michelle (2.5 Mg/3 Ml) Ud) 2.5 mg IH [id number] [facility] Last Admin: 04/13/18 08:26 Dose: 2.5 mg Amlodipine Besylate (Norvasc) 10 mg PO DAILY [facility] Last Admin: 04/13/18 10:00 Dose: 10 mg Aspirin (Ecotrin) 81 mg PO DAILY [facility] Last Admin: 04/13/18 12:07 Dose: 81 mg Atorvastatin Calcium (Lipitor) 20 mg PO HS [facility] Last Admin: 04/12/18 21:00 Dose: 20 mg Carvedilol (Coreg) 12.5 mg PO BID [facility] Last Admin: 04/13/18 10:00 Dose: 12.5 mg Clonidine HCl (Catapres) 0.1 mg PO TID [facility] Last Admin: 04/13/18 13:48 Dose: Not Given Clopidogrel Bisulfate (Plavix) 75 mg PO DAILY [facility] Last Admin: 04/09/18 09:14 Dose: 75 mg Diphenhydramine HCl (Benadryl Maximum Strength 1%) 0 ea TOP Q6H PRN PRN Reason: Itching / Pruritus Last Admin: 04/12/18 09:02 Dose: 1 applic Heparin Sodium (Porcine) (Heparin) 5,000 units SC Q12 [facility] PRN Reason: Protocol Last Admin: 04/13/18 12:07 Dose: 5,000 units Labetalol HCl (Trandate) 300 mg PO Q8H PRN PRN Reason: HTN Levetiracetam (Keppra) 500 mg PO BID [facility] Last Admin: 04/13/18 09:59 Dose: 500 mg Levothyroxine Sodium (Synthroid) 75 mcg PO DAILY [facility] Last Admin: 04/13/18 10:00 Dose: 75 mcg Lisinopril (Zestril) 40 mg PO DAILY [facility] Last Admin: 04/13/18 09:59 Dose: 40 mg Lorazepam (Ativan) 1 mg IVP Q6H PRN; Protocol PRN Reason: Anxiety Morphine Sulfate (Morphine) 5 mg IVP Q4 PRN PRN Reason: Pain, moderate (4-7) Last Admin: 04/13/18 12:13 Dose: 5 mg Nifedipine (Procardia Xl) 30 mg PO DAILY [facility] Last Admin: 04/13/18 09:59 Dose: 30 mg Ondansetron HCl (Zofran Inj) 4 mg IVP Q6H PRN PRN Reason: Nausea/Vomiting Last Admin: 04/13/18 10:00 Dose: 4 mg Pantoprazole Sodium (Protonix Ec Tab) 40 mg PO DAILY [facility] Last Admin: 04/13/18 10:00 Dose: 40 mg Sildenafil Citrate (Revatio) 20 mg PO Q8H [facility] Last Admin: 04/13/18 12:07 Dose: 20 mg - Labs Labs: 04/13/18 06:20 04/13/18 06:20 PT 11.3 SECONDS (9.4-12.5) 04/12/18 06:45 INR 0.98 04/12/18 06:45 APTT 33.2 Seconds (25.1-36.5) 04/12/18 06:45 - Constitutional Appears: Well, Non-toxic, No Acute Distress - Extremities Exam Additional comments: LE focused exam: Vasc: DP/PT pulses palpable 2/4 B/L. Skin temperature warm to warm from proximal to distal. CFT < 3 seconds to all digits B/L. No pedal edema noted. 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 No woo-wound erythema, no malodor, no purulence, no tunneling, tracking, undermining, probe to bone or fluctuance. No maceration, xerosis, abnormal pigmentation or abnormal growths noted to b/l LE. Posterior right heel wound measuring roughly 0.5 cm x 0.5 cm x 0.1 cm noted. Wound base is fibronecrotic with no drainage, malodor, erythema or other clinical signs of infection. No tracking, tunneling or undermining. No probe to bone Neuro: Epicritic and protective sensation grossly intact B/L. Ortho: Severe pain with palpation of right leg ulceration. Pain with palpation to left heel - Psychiatric Exam Psychiatric exam: Anxious, Normal Affect Assessment and Plan - Assessment and Plan (Free Text) Assessment: 57F seen for ulcerations of right LE and left heel pain secondary to calciphylaxis Plan: Patient seen and evaluated with Dr. Forte Absent leukocytosis Wounds dressed with lidocaine gel and optifoam No plan for surgical intervention at this time Patient tentatively for right BKA on Multipodus boots applied to patients feet Podiatry will continue to follow while patient in house <Dougie Forte - Last Filed: 04/13/18 16:48> Objective - Vital Signs/Intake and Output Vital Signs (last 24 hours): Temp Pulse Resp BP Pulse Ox 98.2 F 71 18 119/54 L 99 04/13/18 14:00 04/13/18 14:00 04/13/18 14:00 04/13/18 14:00 04/13/18 14:00 Intake and Output: 04/13/18 04/13/18 06:59 18:59 Intake Total 300 180 Output Total 2 Balance 298 180 - Medications Medications: Current Medications Albuterol Sulfate (Albuterol 0.083% Inhal Michelle (2.5 Mg/3 Ml) Ud) 2.5 mg IH [id number] [facility] Last Admin: 04/13/18 14:11 Dose: 2.5 mg Amlodipine Besylate (Norvasc) 10 mg PO DAILY [facility] Last Admin: 04/13/18 10:00 Dose: 10 mg Aspirin (Ecotrin) 81 mg PO DAILY [facility] Last Admin: 04/13/18 12:07 Dose: 81 mg Atorvastatin Calcium (Lipitor) 20 mg PO HS [facility] Last Admin: 04/12/18 21:00 Dose: 20 mg Carvedilol (Coreg) 12.5 mg PO BID [facility] Last Admin: 04/13/18 10:00 Dose: 12.5 mg Clonidine HCl (Catapres) 0.1 mg PO TID [facility] Last Admin: 04/13/18 13:48 Dose: Not Given Clopidogrel Bisulfate (Plavix) 75 mg PO DAILY [facility] Last Admin: 04/09/18 09:14 Dose: 75 mg Diphenhydramine HCl (Benadryl Maximum Strength 1%) 0 ea TOP Q6H PRN PRN Reason: Itching / Pruritus Last Admin: 04/12/18 09:02 Dose: 1 applic Heparin Sodium (Porcine) (Heparin) 5,000 units SC Q12 [facility] PRN Reason: Protocol Last Admin: 04/13/18 12:07 Dose: 5,000 units Labetalol HCl (Trandate) 300 mg PO Q8H PRN PRN Reason: HTN Levetiracetam (Keppra) 500 mg PO BID [facility] Last Admin: 04/13/18 09:59 Dose: 500 mg Levothyroxine Sodium (Synthroid) 75 mcg PO DAILY [facility] Last Admin: 04/13/18 10:00 Dose: 75 mcg Lisinopril (Zestril) 40 mg PO DAILY [facility] Last Admin: 04/13/18 09:59 Dose: 40 mg Lorazepam (Ativan) 1 mg IVP Q6H PRN; Protocol PRN Reason: Anxiety Morphine Sulfate (Morphine) 5 mg IVP Q4 PRN PRN Reason: Pain, moderate (4-7) Last Admin: 04/13/18 12:13 Dose: 5 mg Nifedipine (Procardia Xl) 30 mg PO DAILY [facility] Last Admin: 04/13/18 09:59 Dose: 30 mg Ondansetron HCl (Zofran Inj) 4 mg IVP Q6H PRN PRN Reason: Nausea/Vomiting Last Admin: 04/13/18 10:00 Dose: 4 mg Pantoprazole Sodium (Protonix Ec Tab) 40 mg PO DAILY [facility] Last Admin: 04/13/18 10:00 Dose: 40 mg Sildenafil Citrate (Revatio) 20 mg PO Q8H [facility] Last Admin: 04/13/18 12:07 Dose: 20 mg - Labs Labs: 04/13/18 06:20 04/13/18 06:20 PT 11.3 SECONDS (9.4-12.5) 04/12/18 06:45 INR 0.98 04/12/18 06:45 APTT 33.2 Seconds (25.1-36.5) 04/12/18 06:45 Attending/Attestation - Attestation I have personally seen and examined this patient.: Yes I have fully participated in the care of the patient.: Yes I have reviewed all pertinent clinical information, including history, physical exam and plan: Yes
--- NOTE | 2018-04-13 17:40 | PN ---
Copied To: Brittany Coffman MD Attending MD: Brittany Coffman MD DATE: 04/13/2018 SUBJECTIVE: The patient is 57 years old, seen and examined, seemed to be awake and alert, communicative. Refused surgery this morning. She was scheduled to have right BKA. The patient states she got scared. She is not ready yet. Family was at the bedside. PHYSICAL EXAMINATION: VITAL SIGNS: She is afebrile, pulse 80, respirations 18, and blood pressure 118/90. LUNGS: Bilateral good airflow. No rhonchi or crackle. HEART: S1 and S2 audible. ABDOMEN: Soft, nontender. No rebound, no guarding. NEUROLOGIC: She is awake and alert, able to communicate. EXTREMITIES: Complained of pain in the right foot and francis. LABORATORY EXAM: WBC 5.8, hemoglobin 9.7, hematocrit 31.8, and platelets of 182. PT 11.3, INR 0.98. Chemistry: Sodium 136, potassium 3.8, chloride 95, CO2 of 28. BUN 43, creatinine 4.9. Blood sugar of 79. LFTs are within normal limit. ASSESSMENT: 1. Severe peripheral vascular disease. 2. Right foot ischemic pain. 3. End-stage renal disease, on hemodialysis. 4. Anxiety disorder. 5. Hypertension. 6. Chronic anemia. 7. Pulmonary hypertension. PLAN: We will start the patient on small dose of Klonopin. We will continue all her medications. The patient states she is not ready for surgery today; however, she agreed for morning. Brittany Coffman MD
--- NOTE | 2018-04-13 19:43 | PN ---
Copied To: Sampson Hutchins MD Attending MD: Sampson Hutchins MD DATE: 04/13/2018 SUBJECTIVE: The patient is currently seen eating dinner. She was apprehensive about the surgical procedure that was scheduled for today and it was canceled. She agrees to have a right BKA on , 04/15/2018. The patient will receive dialysis tomorrow in preparation for the surgery. She has a nonhealing wound of her right lower extremity with severe peripheral vascular disease. MEDICATIONS: Medication list reviewed. The patient is on albuterol, Ativan, Benadryl, clonidine, Coreg, Ecotrin, heparin, Keppra, Lipitor, morphine, Norvasc, Procardia, Protonix, Revatio, Synthroid, Trandate, Zestril, and Zofran p.r.n. OBJECTIVE: INTAKE/OUTPUT: Intake is 300, output is not charted. VITAL SIGNS: Blood pressure 119/54, temperature 98.2, respiratory rate is 18 with a pulse of 71. HEENT: Normocephalic, atraumatic. Conjunctivae are pale. Sclerae nonicteric. NECK: Supple. No neck vein distention. CHEST: Clear to auscultation and percussion with occasional scattered rhonchi. No rales or wheezing. CARDIOVASCULAR: Shows a normal S1, S2, MR/TR/AI. No S3, no S4, no rub. ABDOMEN: Soft. Bowel sounds normal. No rebound, guarding or masses. EXTREMITIES: Show dressing over her right lower extremity with severely diminished pulses in her right leg. Positive right chest wall PermCath. LABORATORY DATA AND IMAGING: CBC: White blood cell count today 5.8, hemoglobin 9.7, platelet count is 182,000. Chemistry show normal electrolytes. Potassium 3.8 today. BUN 43 with a creatinine of 4.9. This is the day post-dialysis. Glucose 79. Calcium 8 with an albumin of 3.8. Phosphorus level was elevated at 7.3. Alkaline phosphatase 181. Liver enzymes are normal. Microbiology: All cultures are negative at 5 days. ASSESSMENT: 1. End-stage renal disease. The patient had been shifted to Thursday, Thursday and Thursday dialysis for this week. She is scheduled for surgery on . 2. History of severe peripheral vascular disease with nonhealing wound of her right lower extremity. The patient is scheduled for right BKA on 04/15/2018. 3. History of anemia secondary to chronic kidney disease, currently stable. The patient receives Aranesp and iron as per protocol with dialysis. 4. History of secondary hyperparathyroidism. The patient will continue a renal diet and we have resumed binder therapy. 5. History of chronic obstructive pulmonary disease secondary to long history of cigarette smoking. The patient will continue present medications and inhalation therapy. 6. History of mild glucose intolerance. 7. History of hypothyroidism. The patient will continue thyroid supplements. PLAN: 1. Dialysis as scheduled for tomorrow. 2. Continue present blood pressure medications. 3. Continue to hold Plavix in preparation for surgery, right BKA scheduled for 04/15/2018. 4. Continue renal diet. Sampson Hutchins MD : 04/13/2018 17:21:16
[2018-04-14] MEDS: Albuterol 0.083% Inhal Sol (2.5 mg/3 mL) UD IH SCH ×3 (01:10→20:16)
[2018-04-14] MEDS: Sildenafil 20 MG TAB PO SCH ×3 (04:17→21:19)
--- NOTE | 2018-04-14 06:49 | CP.PCM.PN ---
Subjective - Date & Time of Evaluation Date of Evaluation: 04/14/18 Time of Evaluation: 06:20 - Subjective Subjective: Awake, alert, no distress Reason for consultation and follow up: Cardiac evaluation and risk stratification for right below knee amputation Seen and examined by me and Dr. Ontiveros Objective - Vital Signs/Intake and Output Vital Signs (last 24 hours): Temp Pulse Resp BP Pulse Ox 98.5 F 75 20 139/59 L 96 04/13/18 21:55 04/13/18 21:55 04/13/18 21:55 04/13/18 21:55 04/13/18 21:55 Intake and Output: 04/13/18 04/14/18 18:59 06:59 Intake Total 180 270 Balance 180 270 - Medications Medications: Current Medications Albuterol Sulfate (Albuterol 0.083% Inhal Michelle (2.5 Mg/3 Ml) Ud) 2.5 mg IH [id number] [facility] Last Admin: 04/14/18 01:10 Dose: 2.5 mg Amlodipine Besylate (Norvasc) 10 mg PO DAILY [facility] Last Admin: 04/13/18 10:00 Dose: 10 mg Aspirin (Ecotrin) 81 mg PO DAILY [facility] Last Admin: 04/13/18 12:07 Dose: 81 mg Atorvastatin Calcium (Lipitor) 20 mg PO HS [facility] Last Admin: 04/13/18 21:00 Dose: 20 mg Calcium Acetate (Phoslo) 667 mg PO WM [facility] Carvedilol (Coreg) 12.5 mg PO BID [facility] Last Admin: 04/13/18 17:24 Dose: 12.5 mg Clonidine HCl (Catapres) 0.1 mg PO TID [facility] Last Admin: 04/13/18 17:24 Dose: 0.1 mg Clopidogrel Bisulfate (Plavix) 75 mg PO DAILY [facility] Last Admin: 04/09/18 09:14 Dose: 75 mg Diphenhydramine HCl (Benadryl Maximum Strength 1%) 0 ea TOP Q6H PRN PRN Reason: Itching / Pruritus Last Admin: 04/12/18 09:02 Dose: 1 applic Heparin Sodium (Porcine) (Heparin) 5,000 units SC Q12 ZANA PRN Reason: Protocol Last Admin: 04/13/18 23:32 Dose: 5,000 units Labetalol HCl (Trandate) 300 mg PO Q8H PRN PRN Reason: HTN Levetiracetam (Keppra) 500 mg PO BID [facility] Last Admin: 04/13/18 17:24 Dose: 500 mg Levothyroxine Sodium (Synthroid) 75 mcg PO DAILY [facility] Last Admin: 04/13/18 10:00 Dose: 75 mcg Lisinopril (Zestril) 40 mg PO DAILY [facility] Last Admin: 04/13/18 09:59 Dose: 40 mg Lorazepam (Ativan) 1 mg IVP Q6H PRN; Protocol PRN Reason: Anxiety Morphine Sulfate (Morphine) 5 mg IVP Q4 PRN PRN Reason: Pain, moderate (4-7) Last Admin: 04/14/18 04:12 Dose: 5 mg Nifedipine (Procardia Xl) 30 mg PO DAILY [facility] Last Admin: 04/13/18 09:59 Dose: 30 mg Ondansetron HCl (Zofran Inj) 4 mg IVP Q6H PRN PRN Reason: Nausea/Vomiting Last Admin: 04/13/18 17:25 Dose: 4 mg Pantoprazole Sodium (Protonix Ec Tab) 40 mg PO DAILY [facility] Last Admin: 04/13/18 10:00 Dose: 40 mg Sildenafil Citrate (Revatio) 20 mg PO Q8H [facility] Last Admin: 04/14/18 04:17 Dose: 20 mg - Labs Labs: 04/13/18 06:20 04/13/18 06:20 PT 11.3 SECONDS (9.4-12.5) 04/12/18 06:45 INR 0.98 04/12/18 06:45 APTT 33.2 Seconds (25.1-36.5) 04/12/18 06:45 - Constitutional Appears: No Acute Distress - Eye Exam Eye Exam: Normal appearance - ENT Exam ENT Exam: Mucous Membranes Moist - Respiratory Exam Respiratory Exam: Decreased Breath Sounds, Clear to Ausculation Bilateral, NORMAL BREATHING PATTERN - Cardiovascular Exam Cardiovascular Exam: REGULAR RHYTHM, +S1, +S2 Additional comments: right chest shiley catheter - GI/Abdominal Exam GI & Abdominal Exam: Soft, Normal Bowel Sounds - Extremities Exam Additional comments: right leg dressing intact - Neurological Exam Neurological Exam: Alert, Awake, Oriented x3 - Psychiatric Exam Psychiatric exam: Anxious, Normal Affect - Skin Skin Exam: Intact, Warm Assessment and Plan - Assessment and Plan (Free Text) Assessment: A 57 year old female who came in to the ER due to worsening rifht foot pain. Consult was called to clear patient for surgery, possible right below knee amputation. History of diabetes, pulmonary hypertension, hyperlipidemia, asthma , emphysema, PAD, COPD, CHF, DVT, CAD, CVA, seizure, ESRD on hemodialysis on / /Thu, GERD, gastritis,diverticulitis, anemia, hypothyroidism, arthritis, and anxiety. Echo 08/20/17- LVEF 65%,moderate to severe LV hyperthrophy,trace MR/AR,TR. 08/21 Stress test- normal. Cleared for surgery. Had episode of altered mental status yesterday,surgery postponed Plan: Calm, claimed surgery was postponed, patient not ready mentally For right BKA- Rescheduled possible or Thursday Heart rate and blood pressure controlled Stable cardiac status Breathing better today,on nasal cannula On Norvasc 10 mg daily,ASA 81 mg daily, Lipitor 20 mg daily Coreg 12.5 mg BID,Catapres 0.1 mg TID,Zestril 40 mg daily Procardia XL 30 mg daily,Revatio 20 mg q 8 hours Will follow up Continue current treatment Continue current medications Plan and treatment discussed with Dr. Ontiveros
[2018-04-14 10:28] LABS: BASO # 0.03 K/mm3 (0.0-2.0); BASO % 0.5 % (0.0-3.0); EOS # 0.2 (0.0-0.7); EOS % 2.7 % (1.5-5.0); GRAN # 3.89 (1.4-6.5); GRAN % 66.8 % (50.0-68.0); HEMOGLOBIN 9.3 g/dL (12.0-16.0); LYMPH # 1.3 (1.2-3.4); LYMPH % 21.8 % (22.0-35.0); MEAN CELL VOLUME 88.9 fl (80.0-105.0); MEAN CORPUSCULAR HEMOGLOBIN 27.1 pg (25.0-35.0); MEAN CORPUSCULAR HGB CONC 30.5 g/dl (31.0-37.0); MEAN PLATELET VOLUME 11.5 fl (7.0-11.0); MONO # 0.5 (0.1-0.6); MONO % 8.2 % (1.0-6.0); RBC 3.43 10^6/uL (3.5-6.1); RED CELL DISTRIBUTION WIDTH 16.6 % (11.5-14.5); WHITE BLOOD COUNT 5.8 10^3/ul (4.5-11.0)
[2018-04-14 10:37] LABS: ALB/GLOB RATIO 1.5 (1.1-1.8); ALBUMIN 3.6 g/dL (3.0-4.8); CALCIUM 7.9 mg/dL (8.4-10.5)
--- NOTE | 2018-04-14 10:38 | CP.PCM.PN ---
Subjective - Date & Time of Evaluation Date of Evaluation: 04/14/18 Time of Evaluation: 10:05 - Subjective Subjective: Surgery Progress Note for Dr. Hutson Pt seen and examined at bedside. Currently receiving hemodialysis. No acute events reported overnight. Pt states that she used BiPap overnight for shortness of breath. Today c/o worsening R lower extremity pain, last received morphine at 5 am this morning, states it helped with the pain a little. Patient also c/o numbness in R lower extremity shooting down to her R foot. Objective - Vital Signs/Intake and Output Vital Signs (last 24 hours): Temp Pulse Resp BP Pulse Ox 98.7 F 78 20 127/49 L 96 04/14/18 06:00 04/14/18 06:00 04/14/18 06:00 04/14/18 06:00 04/14/18 06:00 Intake and Output: 04/14/18 04/14/18 06:59 18:59 Intake Total 270 Balance 270 - Medications Medications: Current Medications Albuterol Sulfate (Albuterol 0.083% Inhal Michelle (2.5 Mg/3 Ml) Ud) 2.5 mg IH [id number] [facility] Last Admin: 04/14/18 08:25 Dose: 2.5 mg Amlodipine Besylate (Norvasc) 10 mg PO DAILY [facility] Last Admin: 04/13/18 10:00 Dose: 10 mg Aspirin (Ecotrin) 81 mg PO DAILY [facility] Last Admin: 04/14/18 09:33 Dose: Not Given Atorvastatin Calcium (Lipitor) 20 mg PO HS [facility] Last Admin: 04/13/18 21:00 Dose: 20 mg Calcium Acetate (Phoslo) 667 mg PO WM [facility] Last Admin: 04/14/18 08:13 Dose: 667 mg Carvedilol (Coreg) 12.5 mg PO BID [facility] Last Admin: 04/14/18 09:33 Dose: Not Given Clonidine HCl (Catapres) 0.1 mg PO TID [facility] Last Admin: 04/14/18 09:33 Dose: Not Given Clopidogrel Bisulfate (Plavix) 75 mg PO DAILY [facility] Last Admin: 04/09/18 09:14 Dose: 75 mg Diphenhydramine HCl (Benadryl Maximum Strength 1%) 0 ea TOP Q6H PRN PRN Reason: Itching / Pruritus Last Admin: 04/12/18 09:02 Dose: 1 applic Heparin Sodium (Porcine) (Heparin) 5,000 units SC Q12 ZANA PRN Reason: Protocol Last Admin: 04/13/18 23:32 Dose: 5,000 units Labetalol HCl (Trandate) 300 mg PO Q8H PRN PRN Reason: HTN Levetiracetam (Keppra) 500 mg PO BID [facility] Last Admin: 04/13/18 17:24 Dose: 500 mg Levothyroxine Sodium (Synthroid) 75 mcg PO DAILY [facility] Last Admin: 04/13/18 10:00 Dose: 75 mcg Lisinopril (Zestril) 40 mg PO DAILY [facility] Last Admin: 04/13/18 09:59 Dose: 40 mg Lorazepam (Ativan) 1 mg IVP Q6H PRN; Protocol PRN Reason: Anxiety Morphine Sulfate (Morphine) 5 mg IVP Q4 PRN PRN Reason: Pain, moderate (4-7) Last Admin: 04/14/18 04:12 Dose: 5 mg Nifedipine (Procardia Xl) 30 mg PO DAILY [facility] Last Admin: 04/13/18 09:59 Dose: 30 mg Ondansetron HCl (Zofran Inj) 4 mg IVP Q6H PRN PRN Reason: Nausea/Vomiting Last Admin: 04/14/18 08:13 Dose: 4 mg Pantoprazole Sodium (Protonix Ec Tab) 40 mg PO DAILY [facility] Last Admin: 04/13/18 10:00 Dose: 40 mg Sildenafil Citrate (Revatio) 20 mg PO Q8H [facility] Last Admin: 04/14/18 04:17 Dose: 20 mg - Labs Labs: 04/14/18 10:10 04/13/18 06:20 PT 11.3 SECONDS (9.4-12.5) 04/12/18 06:45 INR 0.98 04/12/18 06:45 APTT 33.2 Seconds (25.1-36.5) 04/12/18 06:45 - Constitutional Appears: Non-toxic, No Acute Distress, Chronically Ill - Head Exam Head Exam: ATRAUMATIC, NORMAL INSPECTION - Eye Exam Eye Exam: EOMI, Normal appearance, PERRL - ENT Exam ENT Exam: Mucous Membranes Moist - Neck Exam Neck Exam: Full ROM, Normal Inspection - Respiratory Exam Respiratory Exam: Clear to Ausculation Bilateral, NORMAL BREATHING PATTERN - Cardiovascular Exam Cardiovascular Exam: REGULAR RHYTHM, +S1, +S2 - GI/Abdominal Exam GI & Abdominal Exam: Soft, Normal Bowel Sounds - Extremities Exam Additional comments: RLE wrapped with dressing, dry, intact - Neurological Exam Neurological Exam: Alert, Awake, CN II-XII Intact, Oriented x3 - Skin Skin Exam: Dry, Intact, Warm Assessment and Plan - Assessment and Plan (Free Text) Assessment: 57 y o female with multiple co-morbidities & severe PVD s/p angioplasty, stenting & bypass presents with nonhealing RLE wounds requiring amputation. Based on NSQIP Surgical risk calculator, her risk of serious complication is 20 % and any complication is 24%. Plan: -R BKA tentatively re-scheduled for 04/15 due to pt preference and needing more time to discuss options with her family -Medical optimization prior to procedure -Currently receiving hemodialysis -Continue to monitor -Further recommendations per Dr. Haresh Banegas, DO PGY-1
[2018-04-14] MEDS: Levothyroxine 75 MCG TAB PO SCH (14:19)
[2018-04-14] MEDS: NIFEdipine 30 mg ER Tab PO SCH (14:28)
[2018-04-14] MEDS: Pantoprazole 40 mg EC Tab PO SCH (14:29)
--- NOTE | 2018-04-14 15:18 | PN ---
Copied To: Brittany Coffman MD Attending MD: Brittany Coffman MD DATE: 04/14/2018 SUBJECTIVE: The patient is 57 years old, seen in hemodialysis, seems to be doing well. She states she has no choice, but has to get ready for procedure for tomorrow, although she is very anxious. PHYSICAL EXAMINATION: VITAL SIGNS: She is afebrile, pulse 70, respirations 18, blood pressure 127/49. LUNGS: Bilateral fair airflow. No rhonchi or crackle. HEART: S1 and S2 audible. ABDOMEN: Soft, nontender. No rebound, no guarding. NEUROLOGIC: She is awake, alert, oriented, communicative. LABORATORY DATA: WBC 5.8, hemoglobin 9.3, hematocrit 30.5, platelets of 191. Chemistry: Sodium 137, potassium 3.4, chloride 92, CO2 of 29, BUN 52, creatinine 6.8, blood sugar of 83. ASSESSMENT: 1. Right foot has ischemic changes and is cold below mid-francis. 2. End-stage renal disease, on hemodialysis. 3. Hypertension. 4. Hyperlipidemia. 5. Gastritis. 6. Right carotid angioplasty. PLAN: The patient is getting dialysis today. I will give her small dose of Xanax tonight, so she does not develop panic attack tomorrow morning; she is scheduled for BKA in a.m. Brittany Coffman MD
--- NOTE | 2018-04-14 18:34 | PN ---
Copied To: Tamanna Smith MD Attending MD: Tamanna Smith MD DATE: 04/14/2018 SUBJECTIVE: The patient is seen sitting in bed. She is awake. She is alert. She is comfortable. She had dialysis earlier today. She is complaining of pain in her right foot. She is also complaining of increased erythema of the right foot. PHYSICAL EXAMINATION: GENERAL: Middle-aged lady sitting in bed. VITAL SIGNS: Blood pressure 165/63, heart rate 84, respiratory rate 18, temperature 98.7. HEENT: Normocephalic, atraumatic, positive pallor. NECK: Supple, no JVD. LUNGS: Bilateral equal air entry, bilateral equal expansion. EXTREMITIES: Erythema of the right forefoot, dressing of the right lower leg. LABORATORY DATA: Hemoglobin 9.3, potassium 3.4, chloride 92, BUN 62, creatinine 6.8, glucose 83, calcium 7.9, phosphorus 7. MEDICATIONS: DuoNeb, Ativan, Catapres, Coreg, aspirin, Keppra, Lipitor, morphine, amlodipine, PhosLo, Plavix, Procardia, Revatio, Synthroid, Zestril, Zofran. ASSESSMENT: 1. End-stage renal disease. 2. Hypertension. 3. Severe peripheral vascular disease, nonhealing ulcer of the right lower extremity. 4. Pulmonary hypertension/chronic obstructive pulmonary disease. 5. Anxiety. PLAN: 1. Stable dialysis today. 2. Continue antibiotics as per ID recommendations. 3. The patient is tentatively scheduled for a right BKA tomorrow. Tamanna Smith MD
[2018-04-15] MEDS: Albuterol 0.083% Inhal Sol (2.5 mg/3 mL) UD IH SCH ×4 (01:07→19:30)
[2018-04-15] MEDS: Sildenafil 20 MG TAB PO SCH ×4 (03:45→20:00)
[2018-04-15 06:27] LABS: BASO # 0.02 K/mm3 (0.0-2.0); BASO % 0.4 % (0.0-3.0); EOS # 0.1 (0.0-0.7); EOS % 2.5 % (1.5-5.0); GRAN # 3.44 (1.4-6.5); GRAN % 62.2 % (50.0-68.0); HEMOGLOBIN 9.3 g/dL (12.0-16.0); LYMPH # 1.5 (1.2-3.4); LYMPH % 26.4 % (22.0-35.0); MEAN CELL VOLUME 89.2 fl (80.0-105.0); MEAN CORPUSCULAR HEMOGLOBIN 27.9 pg (25.0-35.0); MEAN CORPUSCULAR HGB CONC 31.3 g/dl (31.0-37.0); MEAN PLATELET VOLUME 10.8 fl (7.0-11.0); MONO # 0.5 (0.1-0.6); MONO % 8.5 % (1.0-6.0); RBC 3.33 10^6/uL (3.5-6.1); RED CELL DISTRIBUTION WIDTH 16.7 % (11.5-14.5); WHITE BLOOD COUNT 5.5 10^3/ul (4.5-11.0)
[2018-04-15 06:37] LABS: INR 1.07; PROTHROMBIN TIME 12.3 SECONDS (9.4-12.5)
[2018-04-15 06:40] LABS: PARTIAL THROMBOPLASTIN TIME 27.5 Seconds (25.1-36.5)
[2018-04-15 06:55] LABS: ALB/GLOB RATIO 1.6 (1.1-1.8); ALBUMIN 3.6 g/dL (3.0-4.8); CALCIUM 8.6 mg/dL (8.4-10.5)
[2018-04-15] MEDS ORDERED: Etomidate 20 mg/10ml Inj IV ONE (07:42)
[2018-04-15] MEDS ORDERED: Midazolam 2 MG/2 ML VIAL ONE (07:43)
[2018-04-15] MEDS ORDERED: Rocuronium 10 mg/ml (5 ml) ONE (07:43)
[2018-04-15] MEDS: Bupivacaine 0.5% Inj(30mL) ONE ×2 (09:06→09:45)
[2018-04-15] MEDS ORDERED: Neostigmine Methylsulfate 3mg/3ml Syringe IV ONE (09:07)
[2018-04-15] MEDS: Bupivacaine 0.25% Inj(30mL) ONE ×2 (09:07→09:50)
[2018-04-15] MEDS ORDERED: Glycopyrrolate 0.2 mg/ml (2ml vial) ONE (09:08)
[2018-04-15] MEDS ORDERED: Sodium Chloride 0.9% 1,000 ML IV SCH (09:30)
--- NOTE | 2018-04-15 09:59 | PCM.SURG1 ---
Surgeon's Initial Post Op Note - Surgeon's Notes Surgeon: Dr. Hutson Legal Receptionist: Dr. Crabtree PGY3, Dr. Camacho PGY2, Tyson MS4 Type of Anesthesia: General Endo Pre-Operative Diagnosis: Peripheral arterial disease Operative Findings: See operative dictation Post-Operative Diagnosis: Peripheral Arterial disease Operation Performed: Right below the knee amputation, with OnQ continuous infusion pain catheter placement Specimen/Specimens Removed: Right lower extremity Estimated Blood Loss: EBL {In ML}: 50 Drains Used: Kd Post-Op Condition: Good Date of Surgery/Procedure: 04/15/18 Time of Surgery/Procedure: 09:59
[2018-04-15] MEDS: HYDROmorphone 0.5 mg/0.5 ml ISec IVP PRN ×2 (10:07→10:22)
[2018-04-15] MEDS ORDERED: HYDROmorphone 0.5 mg/0.5 ml ISec ONE ×4 (10:07→12:13)
[2018-04-15] MEDS ORDERED: HYDROmorphone 1 mg/ml ISec IVP STA ×2 (10:35→11:26)
[2018-04-15] MEDS ORDERED: HYDROmorphone 1 mg/ml ISec IVP ONE ×2 (10:35→11:25)
[2018-04-15] MEDS ORDERED: HYDROmorphone 1 mg/ml ISec ONE ×2 (10:36→11:25)
[2018-04-15] MEDS ORDERED: HYDROmorphone 0.5 mg/0.5 ml ISec IVP ONE ×2 (11:05→12:00)
[2018-04-15] MEDS ORDERED: EnalaprilAT 1.25 mg/ml Inj IVP STA (12:02)
--- NOTE | 2018-04-15 12:17 | PN ---
Copied To: Brittany Coffman MD Attending MD: Brittany Coffman MD DATE: 04/15/2018 SUBJECTIVE: The patient is 57 years old, seen and examined. Had right BKA done as per Dr. Hutson, did well. Stump was bleeding, showed sign of fair circulation. PHYSICAL EXAMINATION: VITAL SIGNS: She is afebrile, pulse 93, respirations 15, blood pressure 191/68. LUNGS: Bilateral fair airflow. No rhonchi or crackle. HEART: S1 and S2 audible. ABDOMEN: Soft. Nontender. No rebound. No guarding. NEUROLOGICAL: She is sleepy, but arousable and is alert on asking question. LABORATORY EXAM: WBC is 5.5, hemoglobin 9.3, hematocrit 29.7, platelet of 181. Chemistry: Sodium 138, potassium 3.4, chloride 97, CO2 of 29, BUN 31, creatinine 4.6, blood sugar of 86. ASSESSMENT: 1. Severe right lower leg ischemic pain, status post below-knee amputation. 2. Hypertension. 3. Hyperlipidemia. 4. Pulmonary hypertension. 5. History of chronic obstructive pulmonary disease secondary to long time smoking history. 6. End-stage renal disease, on hemodialysis. PLAN: The patient will receive hemodialysis tomorrow. Analgesic as needed. Local wound care. We will follow up the patient in the a.m. Brittany Coffman MD
[2018-04-15] MEDS: Pantoprazole 40 mg EC Tab PO SCH (14:17)
[2018-04-15] MEDS: NIFEdipine 30 mg ER Tab PO SCH ×2 (14:18→14:28)
[2018-04-15] MEDS: Levothyroxine 75 MCG TAB PO SCH (14:28)
--- NOTE | 2018-04-15 15:12 | PN ---
Copied To: Tamanna Smith MD Attending MD: Tamanna Smith MD DATE: 04/15/2018 SUBJECTIVE: The patient is seen lying in bed in the PACU. She is status post right BKA. She is complaining of severe pain in her leg. She appears in moderate distress. PHYSICAL EXAMINATION: VITAL SIGNS: Blood pressure 210/91, heart rate 90, respiratory rate 15, temperature 99. HEENT: Normocephalic, atraumatic, positive pallor. NECK: Supple, no JVD. LUNGS: Bilateral equal air entry, bilateral equal expansion. CARDIAC: S1 and S2, regular rate and rhythm, no murmur, no rub. ABDOMEN: Soft, nondistended, nontender, bowel sounds present. EXTREMITIES: Right BKA dressing. LABORATORY DATA: Hemoglobin 9.3. Sodium 138, potassium 3.4, chloride 97, CO2 of 31, BUN 4.6, glucose 86, calcium 8.6, AST 23, ALT 20, albumin 3.6. CURRENT MEDICATIONS: Albuterol, Ativan, Catapres, Coreg, aspirin, Keppra, Lipitor, amlodipine 10, PhosLo, Plavix, Procardia, Protonix, Synthroid, Trandate, lisinopril. ASSESSMENT: 1. Peripheral vascular disease, status post right transmetatarsal amputation, postoperative day zero. 2. Severe hypertension. 3. Severe pain. 4. End-stage renal disease. 5. Chronic obstructive pulmonary disease. 6. Anemia of chronic kidney disease. PLAN: 1. Vasotec 2.5 mg IV x1 dose now. 2. Pain management. 3. Dialysis tomorrow. 4. Monitor H and H. 5. Monitor respiratory status. Tamanna Smith MD
--- NOTE | 2018-04-15 17:15 | PN ---
Copied To: Pj Ontiveros MD Attending MD: Pj Ontiveros MD DATE: 04/15/2018 REASON FOR THE CONSULTATION AND FOLLOWUP: Preop evaluation, risk stratification for right BKA. SUBJECTIVE: The patient denies any chest pain, shortness of breath, or any palpitation. The patient was seen in same-day area, awaiting to go for surgery. OBJECTIVE: GENERAL: Not in apparent distress, anxious about the OR. VITAL SIGNS: Temperature afebrile, heart rate 78, blood pressure 142/75. HEENT: PERRLA. Extraocular muscles intact. NECK: Supple. No carotid bruits or thyromegaly. CHEST: Clear to auscultation. HEART: S1 and S2 regular. ABDOMEN: Soft. EXTREMITIES: Clubbing and cyanosis negative. LABORATORY DATA: Blood workup as follows: WBC 5.5, hemoglobin 9.3, hematocrit 29.7, platelet count 181. Chemistries show sodium 138, potassium 3.4, chloride 97, carbon dioxide 29, anion gap of 16, BUN 31, creatinine 4.6. IMPRESSION: Nonhealing ulcers, right side, awaiting to go for amputation today; coronary artery disease; end-stage renal disease, on dialysis; pulmonary hypertension; chronic obstructive pulmonary disease; diabetes; severe peripheral arterial disease. RECOMMENDATIONS: The patient is scheduled for OR for right BKA. Postop, we will transfer the patient to TCU for hemodynamic monitoring and blood pressure monitor. Discussed with the daughter, discussed with the son. We will follow with you. Thank you, Dr. Coffman, for providing us the opportunity in taking care of the patient, Renetta Thakur. Pj Ontiveros MD
[2018-04-15] MEDS ORDERED: Nitroglycerin 2% Ointment Foilpak UD TOP SCH (18:00)
[2018-04-16] MEDS ORDERED: HYDROmorphone 1 mg/ml ISec IVP STA (01:10)
[2018-04-16] MEDS: Albuterol 0.083% Inhal Sol (2.5 mg/3 mL) UD IH SCH ×4 (01:12→19:44)
[2018-04-16] MEDS: Sildenafil 20 MG TAB PO SCH ×3 (03:52→22:08)
[2018-04-16 06:37] LABS: BASO # 0.02 K/mm3 (0.0-2.0); BASO % 0.3 % (0.0-3.0); EOS % 0.1 % (1.5-5.0); GRAN # 5.86 (1.4-6.5); GRAN % 77.4 % (50.0-68.0); LYMPH # 1.1 (1.2-3.4); LYMPH % 14.3 % (22.0-35.0); MEAN CORPUSCULAR HGB CONC 30.7 g/dl (31.0-37.0); MEAN PLATELET VOLUME 10.2 fl (7.0-11.0); MONO # 0.6 (0.1-0.6); MONO % 7.9 % (1.0-6.0); RBC 3.33 10^6/uL (3.5-6.1); RED CELL DISTRIBUTION WIDTH 16.6 % (11.5-14.5); WHITE BLOOD COUNT 7.6 10^3/ul (4.5-11.0)
[2018-04-16 07:23] LABS: ALB/GLOB RATIO 1.5 (1.1-1.8); ALBUMIN 3.4 g/dL (3.0-4.8); CALCIUM 8.3 mg/dL (8.4-10.5)
[2018-04-16] MEDS: Pantoprazole 40 mg EC Tab PO SCH (11:05)
--- NOTE | 2018-04-16 11:39 | PN ---
Copied To: Tamanna Smith MD Attending MD: Tamanna Smith MD DATE: 04/16/2018 SUBJECTIVE: The patient is seen lying in bed. She is groggy. She is arousable. She complains of pain in her right lower extremity. She denies any chest tightness. PHYSICAL EXAMINATION: GENERAL: Middle-aged lady lying in bed. VITAL SIGNS: Blood pressure 178/75, heart rate 84, respiratory rate of 18 to 20, temperature 99.8. HEENT: Normocephalic, atraumatic. Positive pallor. NECK: Supple. No JVD. LUNGS: Bilateral equal air entry, bilateral equal expansion. CARDIAC: S1 and S2. Regular rate and rhythm. No murmur, no rub. ABDOMEN: Soft, nondistended, nontender. Bowel sounds present. EXTREMITIES: Dressing of the right lower extremity stump. LABORATORY DATA: WBC 7.6, hemoglobin 9, hematocrit 29, platelets 189. Sodium 138, potassium 3.7, chloride 98, CO2 25, BUN 55, creatinine 6.5, glucose 101. MEDICATIONS: List reviewed. ASSESSMENT: 1. Peripheral vascular disease, status post right below-knee amputation, postop day #1. 2. Pain. 3. Hypertension. 4. End-stage renal disease. 5. Anemia of chronic kidney disease. 6. Chronic obstructive pulmonary disease. PLAN: 1. Dialysis today. 2. Continue pain management. 3. Monitor fevers. 4. Continue phosphate binders. 5. Continue current antihypertensives. Tamanna Smith MD
--- NOTE | 2018-04-16 12:33 | PN ---
Copied To: Brittany Coffman MD Attending MD: Brittany Coffman MD DATE: 04/16/2018 SUBJECTIVE: The patient is 57 years old, seen and examined, sleepy, but arousable. Just had pain killer done, status post right BKA. PHYSICAL EXAMINATION: VITAL SIGNS: She is afebrile, pulse 62, respirations 18, blood pressure 153/69. LUNGS: Bilateral fair airflow. No rhonchi or crackle. HEART: S1 and S2 audible. ABDOMEN: Soft. Nontender. No rebound. No guarding. NEUROLOGICAL: She is sleepy, but arousable. Status post right BKA. LABORATORY EXAM: WBC 7.6, hemoglobin 9, hematocrit 29, platelet 189. Chemistry: Sodium 138, potassium 3.7, chloride 98, CO2 of 25, BUN , creatinine 6.5, blood sugar of 104. Blood culture, urine cultures are negative. ASSESSMENT: 1. Status post right ischemic limb, status post right below-knee amputation. 2. End-stage renal disease, on hemodialysis. 3. Hypertension. 4. Hyperlipidemia. 5. Chronic kidney disease. 6. Pulmonary hypertension. 7. Severe peripheral vascular disease. 8. Right carotid angioplasty. PLAN: We will keep the patient on current analgesic. She will receive dialysis tomorrow. We will monitor her blood pressure closely. Follow up CBC, CMP in the a.m. The patient's daughter by the bedside. Discharge plan for rehab, probably [facility] since that has facility of dialysis. Brittany Coffman MD
--- NOTE | 2018-04-16 14:10 | PN ---
Copied To: Pj Ontiveros MD Attending MD: Pj Ontiveros MD. DATE: 04/16/2018 REASON FOR THE CONSULTATION AND FOLLOWUP: Preop evaluation and postop followup status post right BKA. SUBJECTIVE: Patient denies any chest pain, shortness of breath, complaining of pain in the operative site, otherwise no shortness of breath. OBJECTIVE: GENERAL: Lying in the bed, mild distress because of pain at the operative site. VITAL SIGNS: Temperature afebrile, heart rate 84, blood pressure 177/71. HEENT: PERRLA. Extraocular muscles intact. NECK: Supple. No carotid bruits or thyromegaly. CHEST: Clear to auscultation. HEART: S1 and S2 regular. ABDOMEN: Soft. EXTREMITIES: Clubbing and cyanosis negative. LABORATORY DATA: Blood workup as follows. WBC 7.6, hemoglobin 9, hematocrit 29.3, platelet count 189. Chemistry shows sodium 137, potassium 3.7, chloride 98, carbon dioxide 28, anion gap of 18, BUN 55, creatinine 6.5. IMPRESSION: Status post right below knee amputation, severe peripheral arterial disease, history of coronary artery disease, history of stent insertion, non-ST elevation myocardial infarction in the past, history of end-stage renal disease, history of carotid artery stenting, hypertension, chronic obstructive pulmonary disease, diabetes. RECOMMENDATIONS: Continue adequate analgesia. Continue Coreg. Continue clonidine. PATIENT HAS ALLERGY TO HYDRALAZINE. Continue Atorvastatin. Continue amlodipine. If the patient's blood pressure remained elevated, we can increase carvedilol to 25 b.i.d. I will follow with you. I will increase carvedilol to b.i.d. 25. Thank you Dr. Coffman for providing the opportunity in taking care of the patient Renetta Thakur. Pj Ontiveros MD
[2018-04-16] MEDS: Levothyroxine 75 MCG TAB PO SCH (15:40)
[2018-04-16] MEDS: NIFEdipine 30 mg ER Tab PO SCH (15:40)
[2018-04-16] MEDS: HYDROmorphone 1 mg/ml ISec IVP PRN ×3 (15:45→22:04)
[2018-04-17] MEDS: HYDROmorphone 1 mg/ml ISec IVP PRN ×6 (01:05→23:05)
[2018-04-17] MEDS: Albuterol 0.083% Inhal Sol (2.5 mg/3 mL) UD IH SCH ×4 (03:12→19:56)
[2018-04-17] MEDS: Sildenafil 20 MG TAB PO SCH ×4 (04:47→21:45)
--- NOTE | 2018-04-17 08:32 | CP.PCM.PN ---
Subjective - Date & Time of Evaluation Date of Evaluation: 04/17/18 Time of Evaluation: 08:29 - Subjective Subjective: Surgery Pt Seen and examined. C/O leg pain. Denies fever, nausea, vomiting, diarrhea. Drain in place. On-Q in place. Objective - Vital Signs/Intake and Output Vital Signs (last 24 hours): Temp Pulse Resp BP Pulse Ox 97.7 F 87 18 131/54 L 97 04/17/18 06:00 04/17/18 06:00 04/17/18 06:00 04/17/18 06:00 04/17/18 06:00 Intake and Output: 04/17/18 04/17/18 06:59 18:59 Intake Total 420 Output Total 30 Balance 390 - Medications Medications: Current Medications Albuterol Sulfate (Albuterol 0.083% Inhal Michelle (2.5 Mg/3 Ml) Ud) 2.5 mg IH [id number] [facility] Last Admin: 04/17/18 07:57 Dose: 2.5 mg Alprazolam (Xanax) 0.25 mg PO [facility] PRN Reason: Protocol Stop: 04/21/18 22:01 Last Admin: 04/16/18 22:09 Dose: 0.25 mg Amlodipine Besylate (Norvasc) 10 mg PO DAILY [facility] Last Admin: 04/16/18 15:39 Dose: 10 mg Aspirin (Ecotrin) 81 mg PO DAILY [facility] Last Admin: 04/16/18 11:05 Dose: 81 mg Atorvastatin Calcium (Lipitor) 20 mg PO HS [facility] Last Admin: 04/16/18 22:07 Dose: 20 mg Calcium Acetate (Phoslo) 667 mg PO WM [facility] Last Admin: 04/16/18 18:45 Dose: 667 mg Carvedilol (Coreg) 25 mg PO BID [facility] Last Admin: 04/16/18 18:44 Dose: 25 mg Clonidine HCl (Catapres) 0.1 mg PO TID [facility] Last Admin: 04/16/18 18:43 Dose: 0.1 mg Clopidogrel Bisulfate (Plavix) 75 mg PO DAILY [facility] Last Admin: 04/16/18 11:05 Dose: 75 mg Diphenhydramine HCl (Benadryl Maximum Strength 1%) 0 ea TOP Q6H PRN PRN Reason: Itching / Pruritus Last Admin: 04/12/18 09:02 Dose: 1 applic Heparin Sodium (Porcine) (Heparin) 5,000 units SC Q12 [facility] PRN Reason: Protocol Last Admin: 04/16/18 22:06 Dose: 5,000 units Hydromorphone HCl (Dilaudid) 1 mg IVP Q3H PRN PRN Reason: Pain, moderate (4-7) Last Admin: 04/17/18 04:47 Dose: 1 mg Labetalol HCl (Trandate) 300 mg PO Q8H PRN PRN Reason: HTN Last Admin: 04/16/18 06:56 Dose: 300 mg Levetiracetam (Keppra) 500 mg PO BID [facility] Last Admin: 04/16/18 18:43 Dose: 500 mg Levothyroxine Sodium (Synthroid) 75 mcg PO DAILY [facility] Last Admin: 04/16/18 15:40 Dose: 75 mcg Lisinopril (Zestril) 40 mg PO DAILY [facility] Last Admin: 04/16/18 15:40 Dose: 40 mg Lorazepam (Ativan) 1 mg IVP Q6H PRN; Protocol PRN Reason: Anxiety Last Admin: 04/15/18 16:21 Dose: 1 mg Nifedipine (Procardia Xl) 30 mg PO DAILY [facility] Last Admin: 04/16/18 15:40 Dose: 30 mg Nitroglycerin (Nitro-Bid 2% Oint) 1 ea TOP Q6 [facility] Ondansetron HCl (Zofran Inj) 4 mg IVP Q6H PRN PRN Reason: Nausea/Vomiting Last Admin: 04/14/18 19:48 Dose: 4 mg Pantoprazole Sodium (Protonix Ec Tab) 40 mg PO DAILY [facility] Last Admin: 04/16/18 11:05 Dose: 40 mg Sildenafil Citrate (Revatio) 20 mg PO Q8H [facility] Last Admin: 04/17/18 04:47 Dose: 20 mg Tramadol HCl (Ultram) 50 mg PO TID [facility] - Labs Labs: 04/16/18 06:00 04/16/18 06:00 PT 12.3 SECONDS (9.4-12.5) 04/15/18 06:11 INR 1.07 04/15/18 06:11 APTT 27.5 Seconds (25.1-36.5) 04/15/18 06:11 - Constitutional Appears: No Acute Distress - Head Exam Head Exam: ATRAUMATIC, NORMAL INSPECTION, NORMOCEPHALIC - Eye Exam Eye Exam: EOMI, Normal appearance, PERRL Pupil Exam: NORMAL ACCOMODATION, PERRL - ENT Exam ENT Exam: Mucous Membranes Moist, Normal Exam - Neck Exam Neck Exam: Full ROM, Normal Inspection. absent: Lymphadenopathy - Respiratory Exam Respiratory Exam: NORMAL BREATHING PATTERN - Cardiovascular Exam Cardiovascular Exam: REGULAR RHYTHM, +S1, +S2. absent: Murmur - GI/Abdominal Exam GI & Abdominal Exam: Soft, Normal Bowel Sounds. absent: Distended, Tenderness - Exam Exam: NORMAL INSPECTION - Extremities Exam Extremities Exam: Tenderness. absent: Full ROM, Normal Inspection Additional comments: R leg immobilizer in place. Dressing C/D/I. - Neurological Exam Neurological Exam: Alert, Awake, CN II-XII Intact, Oriented x3 - Psychiatric Exam Psychiatric exam: Normal Affect, Normal Mood - Skin Skin Exam: Dry, Intact, Normal Color, Warm Assessment and Plan - Assessment and Plan (Free Text) Assessment: POD 3 s/p R BKA -Pain control -Regular diet -Medical management -IS -PT -Iliana Hutson
[2018-04-17] MEDS: Pantoprazole 40 mg EC Tab PO SCH (09:33)
[2018-04-17] MEDS ORDERED: Nitroglycerin 2% Ointment Foilpak UD TOP ONE (10:30)
[2018-04-17] MEDS ORDERED: HYDROmorphone 1 mg/ml ISec IVP STA (11:01)
[2018-04-17] MEDS: Levothyroxine 75 MCG TAB PO SCH (11:10)
[2018-04-17] MEDS: NIFEdipine 30 mg ER Tab PO SCH (11:19)
[2018-04-17] MEDS: Morphine 15 mg SR Tab PO SCH (21:45)
--- NOTE | 2018-04-17 23:26 | PN ---
Copied To: Brittany Coffman MD Attending MD: Brittany Coffman MD DATE: 04/17/2018 SUBJECTIVE: The patient is 57 years old, seen and examined, complained of pain in the stump, complained chest pain, complained of right arm pain. Denies any nausea. Complained of decreased appetite though. PHYSICAL EXAMINATION: VITAL SIGNS: She is afebrile, pulse 80, respirations 19, blood pressure 137/62. LUNGS: Bilateral fair airflow. No rhonchi or crackle. HEART: S1 and S2 audible. ABDOMEN: Soft. Nontender. EXTREMITIES: Right stump is in the immobilizer. NEUROLOGICAL: She is awake, alert, oriented, communicative. LABORATORY EXAM: Chemistry: Sodium 138, potassium 3.7, chloride 98, CO2 of 25, BUN 55, creatinine 6.5, blood sugar of 109. ASSESSMENT: 1. Status post right below-knee amputation, secondary to limb ischemia. 2. Severe peripheral vascular disease. 3. History of chronic obstructive pulmonary disease. 4. Hypertension. 5. End-stage renal disease, on hemodialysis. 6. Pulmonary hypertension. PLAN: I will give one dose of Dilaudid stat, and also started on nitro paste. I will increase her dose to 2 mg every 4 p.r.n., and we will start her on MS Contin. Follow up her H and H. Discussed with daughter who wanted her to be in rehab in [facility] since it has facility of hemodialysis. We will reevaluate. Brittany Coffman MD
[2018-04-18] MEDS: Albuterol 0.083% Inhal Sol (2.5 mg/3 mL) UD IH SCH ×4 (01:10→21:13)
[2018-04-18] MEDS: HYDROmorphone 1 mg/ml ISec IVP PRN ×4 (03:10→14:48)
[2018-04-18] MEDS ORDERED: Bupivacaine 0.25% Inj(30mL) IJ ONE (07:35)
--- NOTE | 2018-04-18 07:40 | CP.PCM.PN ---
Subjective - Date & Time of Evaluation Date of Evaluation: 04/18/18 Time of Evaluation: 07:37 - Subjective Subjective: Surgery Pt seen and examined. c/o leg pain. Dressing saturated. changed this AM. Denies fever, nausea, diarrhea, CP, SOB. Objective - Vital Signs/Intake and Output Vital Signs (last 24 hours): Temp Pulse Resp BP Pulse Ox 98.9 F 77 19 139/66 91 L 04/18/18 06:00 04/18/18 06:00 04/18/18 06:00 04/18/18 06:00 04/18/18 06:00 Intake and Output: 04/18/18 04/18/18 06:59 18:59 Intake Total 120 Balance 120 - Medications Medications: Current Medications Albuterol Sulfate (Albuterol 0.083% Inhal Michelle (2.5 Mg/3 Ml) Ud) 2.5 mg IH [id number] [facility] Last Admin: 04/18/18 01:10 Dose: 2.5 mg Alprazolam (Xanax) 0.25 mg PO HS [facility] PRN Reason: Protocol Stop: 04/21/18 22:01 Last Admin: 04/17/18 21:45 Dose: 0.25 mg Amlodipine Besylate (Norvasc) 10 mg PO DAILY [facility] Last Admin: 04/17/18 11:18 Dose: 10 mg Aspirin (Ecotrin) 81 mg PO DAILY [facility] Last Admin: 04/17/18 09:33 Dose: 81 mg Atorvastatin Calcium (Lipitor) 20 mg PO HS [facility] Last Admin: 04/17/18 21:45 Dose: 20 mg Bupivacaine HCl (Marcaine 0.25%) 100 ml IJ ONCE ONE Stop: 04/18/18 07:36 Calcium Acetate (Phoslo) 667 mg PO WM [facility] Last Admin: 04/17/18 17:33 Dose: 667 mg Carvedilol (Coreg) 25 mg PO BID [facility] Last Admin: 04/17/18 17:44 Dose: 25 mg Clonidine HCl (Catapres) 0.1 mg PO TID [facility] Last Admin: 04/17/18 17:33 Dose: 0.1 mg Clopidogrel Bisulfate (Plavix) 75 mg PO DAILY [facility] Last Admin: 04/17/18 09:33 Dose: 75 mg Diphenhydramine HCl (Benadryl Maximum Strength 1%) 0 ea TOP Q6H PRN PRN Reason: Itching / Pruritus Last Admin: 04/12/18 09:02 Dose: 1 applic Heparin Sodium (Porcine) (Heparin) 5,000 units SC Q12 [facility] PRN Reason: Protocol Last Admin: 04/17/18 21:46 Dose: 5,000 units Hydromorphone HCl (Dilaudid) 2 mg IVP Q4H PRN PRN Reason: Pain, moderate (4-7) Last Admin: 04/18/18 07:19 Dose: 2 mg Labetalol HCl (Trandate) 300 mg PO Q8H PRN PRN Reason: HTN Last Admin: 04/16/18 06:56 Dose: 300 mg Levetiracetam (Keppra) 500 mg PO BID [facility] Last Admin: 04/17/18 17:35 Dose: 500 mg Levothyroxine Sodium (Synthroid) 75 mcg PO DAILY [facility] Last Admin: 04/17/18 11:10 Dose: 75 mcg Lisinopril (Zestril) 40 mg PO DAILY [facility] Last Admin: 04/17/18 11:19 Dose: 40 mg Lorazepam (Ativan) 1 mg IVP Q6H PRN; Protocol PRN Reason: Anxiety Last Admin: 04/15/18 16:21 Dose: 1 mg Morphine Sulfate (Morphine Extended Release Tab) 15 mg PO Q12 [facility] Last Admin: 04/17/18 21:45 Dose: 15 mg Nifedipine (Procardia Xl) 30 mg PO DAILY [facility] Last Admin: 04/17/18 11:19 Dose: 30 mg Nitroglycerin (Nitro-Bid 2% Oint) 1 ea TOP Q6 [facility] Ondansetron HCl (Zofran Inj) 4 mg IVP Q6H PRN PRN Reason: Nausea/Vomiting Last Admin: 04/14/18 19:48 Dose: 4 mg Pantoprazole Sodium (Protonix Ec Tab) 40 mg PO DAILY [facility] Last Admin: 04/17/18 09:33 Dose: 40 mg Sildenafil Citrate (Revatio) 20 mg PO Q8H [facility] Last Admin: 04/17/18 21:45 Dose: 20 mg Tramadol HCl (Ultram) 50 mg PO TID [facility] Last Admin: 04/17/18 17:34 Dose: 50 mg - Labs Labs: 04/16/18 06:00 04/16/18 06:00 PT 12.3 SECONDS (9.4-12.5) 04/15/18 06:11 INR 1.07 04/15/18 06:11 APTT 27.5 Seconds (25.1-36.5) 04/15/18 06:11 - Constitutional Appears: Non-toxic - Head Exam Head Exam: ATRAUMATIC, NORMAL INSPECTION, NORMOCEPHALIC - Eye Exam Eye Exam: EOMI, Normal appearance, PERRL Pupil Exam: NORMAL ACCOMODATION, PERRL - ENT Exam ENT Exam: Mucous Membranes Moist, Normal Exam - Neck Exam Neck Exam: Full ROM, Normal Inspection. absent: Lymphadenopathy - Respiratory Exam Respiratory Exam: NORMAL BREATHING PATTERN - Cardiovascular Exam Cardiovascular Exam: REGULAR RHYTHM, +S1, +S2. absent: Murmur - GI/Abdominal Exam GI & Abdominal Exam: Soft, Normal Bowel Sounds. absent: Distended, Tenderness - Exam Exam: NORMAL INSPECTION - Extremities Exam Extremities Exam: Normal Capillary Refill. absent: Full ROM, Joint Swelling, Normal Inspection, Pedal Edema Additional comments: R leg BKA stump has 6x5cm bullae. TTP. Saturated with SS fluids. - Back Exam Back Exam: NORMAL INSPECTION - Neurological Exam Neurological Exam: Alert, Awake, CN II-XII Intact, Oriented x3. absent: Normal Gait - Psychiatric Exam Psychiatric exam: Normal Affect, Normal Mood - Skin Skin Exam: Dry, Intact, Normal Color, Warm Assessment and Plan - Assessment and Plan (Free Text) Assessment: POD 4 s/p R BKA -Pain control -Regular diet -Medical management -IS -PT -Iliana Hutson
--- NOTE | 2018-04-18 07:58 | PN ---
Copied To: Tamanna Smith MD Attending MD: Tamanna Smith MD DATE: 04/17/2018 SUBJECTIVE: The patient is seen lying in bed. Daughter is at bedside. The patient is groggy. She complains of severe pain in her right foot, but she reports that the pain is getting better. PHYSICAL EXAMINATION: GENERAL: Middle-aged lady lying in bed. VITAL SIGNS: Blood pressure 139/66, heart rate 77, respiratory rate 98.9. HEENT: Normocephalic, atraumatic, positive pallor. NECK: Supple, no JVD. LUNGS: Bilateral equal air entry, bilateral equal expansion, no rales. CARDIAC: S1 and S2, regular rate and rhythm, no murmur, no rub. ABDOMEN: Soft, nondistended, nontender, bowel sounds present. EXTREMITIES: Dressing of the right BKA stump. LABORATORY DATA: No new labs. ASSESSMENT: 1. Peripheral vascular disease, status post right BKA, postoperative day #2. 2. Severe hypertension. 3. End-stage renal disease. 4. Anemia of chronic kidney disease. 5. Chronic obstructive pulmonary disease. 6. Pulmonary hypertension. PLAN: 1. Pain management. 2. Limit narcotics. 3. Treatment for constipation. 4. Stable dialysis yesterday. 5. Next dialysis will be on Thursday. Tamanna Smith MD MTDLacie
[2018-04-18] MEDS: Sildenafil 20 MG TAB PO SCH ×3 (08:00→21:54)
[2018-04-18] MEDS: Pantoprazole 40 mg EC Tab PO SCH (09:29)
[2018-04-18] MEDS: Levothyroxine 75 MCG TAB PO SCH (09:29)
[2018-04-18] MEDS: Morphine 15 mg SR Tab PO SCH ×2 (09:30→21:54)
[2018-04-18] MEDS: NIFEdipine 30 mg ER Tab PO SCH (10:25)
[2018-04-18] MEDS: HYDROmorphone 2 mg/ml ISec IVP PRN (19:37)
--- NOTE | 2018-04-18 19:49 | PN ---
Copied To: Jaymie Byrd MD Attending MD: Jaymie Byrd MD DATE: 04/18/2018 SUBJECTIVE: She is comfortable in bed, complaining of right leg pain, it is phantom pain, has been getting Dilaudid for that. Did not have bowel movement for a few days. No chest pain. No nausea. No vomiting. Oral intake is poor. PHYSICAL EXAMINATION: GENERAL: In mild distress with phantom pain in the right lower extremity. VITAL SIGNS: Heart rate is 80 per minute, respiratory rate 18 per minute, blood pressure 130/62. HEENT: Pallor positive. NECK: No lymphadenopathy. CHEST: Air entry present, equal bilateral. No added sounds. CARDIOVASCULAR: S1, S2, normal. No murmur, no gallop. ABDOMEN: Soft, nontender. No hepatosplenomegaly. EXTREMITIES: Right stump is in the immobilizer. NEUROLOGICAL: Awake, alert, oriented x3. No focal sensory or motor deficit. MEDICATIONS: Albuterol every 6 hours p.r.n.; Xanax 0.25 mg p.o. at bedtime; amlodipine 10 mg daily; aspirin 81 mg daily; Lipitor 20 mg daily; PhosLo 667 p.o., Thursday, Thursday, Thursday; Coreg 25 mg p.o. b.i.d.; Catapres 0.1 p.o. t.i.d.; Plavix 75 mg daily; heparin 5000 every 12; Keppra 500 mg p.o. b.i.d.; Synthroid 75 mcg daily; lisinopril 40 mg daily; morphine p.r.n.; Ultram t.i.d.; Protonix 40 mg daily. LABORATORY DATA: Sodium 138, potassium 3.7, creatinine 6.5, total bilirubin 0.3, hemoglobin 9.9, white count 7.6, platelets 189. ASSESSMENT: 1. Status post right below knee amputation secondary to limb ischemia. 2. Peripheral vascular disease. 3. Chronic obstructive pulmonary disease. 4. Severe anemia. 5. End-stage renal disease, on hemodialysis. PLAN: We will continue current treatment. She is getting morphine p.r.n. for pain. She is waiting placement in the rehab. We will continue Synthroid, continue Protonix, continue cardiac medications, labetalol 300 mg every 8 p.r.n., Norvasc 10 mg daily, aspirin and Plavix to continue, Xanax p.r.n. Discussed with the patient. Discussed with the staff nurse. Jaymie Byrd MD
[2018-04-19] MEDS: HYDROmorphone 2 mg/ml ISec IVP PRN ×2 (00:13→05:13)
[2018-04-19] MEDS: Albuterol 0.083% Inhal Sol (2.5 mg/3 mL) UD IH SCH ×3 (01:49→20:04)
[2018-04-19] MEDS: Sildenafil 20 MG TAB PO SCH ×3 (05:13→20:00)
--- NOTE | 2018-04-19 06:39 | CP.PCM.PN ---
Subjective - Date & Time of Evaluation Date of Evaluation: 04/19/18 Time of Evaluation: 06:10 - Subjective Subjective: pain on her right leg,awake, alert, no distress Reason for consultation and follow up: Cardiac evaluation and risk stratification for right below knee amputation Seen and examined by me and Dr. Ontiveros Objective - Vital Signs/Intake and Output Vital Signs (last 24 hours): Temp Pulse Resp BP Pulse Ox 99.2 F 79 18 150/64 95 04/19/18 00:01 04/19/18 05:29 04/19/18 00:01 04/19/18 00:01 04/19/18 00:01 Intake and Output: 04/18/18 04/19/18 18:59 06:59 Intake Total 720 Output Total 0 Balance 720 - Medications Medications: Current Medications Albuterol Sulfate (Albuterol 0.083% Inhal Michelle (2.5 Mg/3 Ml) Ud) 2.5 mg IH [id number] [facility] Last Admin: 04/19/18 01:49 Dose: 2.5 mg Alprazolam (Xanax) 0.25 mg PO HS [facility] PRN Reason: Protocol Stop: 04/21/18 22:01 Last Admin: 04/18/18 21:54 Dose: 0.25 mg Amlodipine Besylate (Norvasc) 10 mg PO DAILY [facility] Last Admin: 04/18/18 09:30 Dose: 10 mg Aspirin (Ecotrin) 81 mg PO DAILY [facility] Last Admin: 04/18/18 09:30 Dose: 81 mg Atorvastatin Calcium (Lipitor) 20 mg PO HS [facility] Last Admin: 04/18/18 21:54 Dose: 20 mg Calcium Acetate (Phoslo) 667 mg PO WM [facility] Last Admin: 04/18/18 18:24 Dose: 667 mg Carvedilol (Coreg) 25 mg PO BID [facility] Last Admin: 04/18/18 18:25 Dose: 25 mg Clonidine HCl (Catapres) 0.1 mg PO TID [facility] Last Admin: 04/18/18 18:24 Dose: 0.1 mg Clopidogrel Bisulfate (Plavix) 75 mg PO DAILY [facility] Last Admin: 04/18/18 09:30 Dose: 75 mg Diphenhydramine HCl (Benadryl Maximum Strength 1%) 0 ea TOP Q6H PRN PRN Reason: Itching / Pruritus Last Admin: 04/12/18 09:02 Dose: 1 applic Heparin Sodium (Porcine) (Heparin) 5,000 units SC Q12 [facility] PRN Reason: Protocol Last Admin: 04/18/18 21:53 Dose: 5,000 units Hydromorphone HCl (Dilaudid) 2 mg IVP Q4H PRN PRN Reason: Pain, moderate (4-7) Last Admin: 04/19/18 05:13 Dose: 2 mg Labetalol HCl (Trandate) 300 mg PO Q8H PRN PRN Reason: HTN Last Admin: 04/16/18 06:56 Dose: 300 mg Levetiracetam (Keppra) 500 mg PO BID [facility] Last Admin: 04/18/18 18:26 Dose: 500 mg Levothyroxine Sodium (Synthroid) 75 mcg PO DAILY [facility] Last Admin: 04/18/18 09:29 Dose: 75 mcg Lisinopril (Zestril) 40 mg PO DAILY [facility] Last Admin: 04/18/18 10:25 Dose: 40 mg Lorazepam (Ativan) 1 mg IVP Q6H PRN; Protocol PRN Reason: Anxiety Last Admin: 04/15/18 16:21 Dose: 1 mg Morphine Sulfate (Morphine Extended Release Tab) 15 mg PO Q12 [facility] Last Admin: 04/18/18 21:54 Dose: 15 mg Nifedipine (Procardia Xl) 30 mg PO DAILY [facility] Last Admin: 04/18/18 10:25 Dose: 30 mg Nitroglycerin (Nitro-Bid 2% Oint) 1 ea TOP Q6 [facility] Ondansetron HCl (Zofran Inj) 4 mg IVP Q6H PRN PRN Reason: Nausea/Vomiting Last Admin: 04/14/18 19:48 Dose: 4 mg Pantoprazole Sodium (Protonix Ec Tab) 40 mg PO DAILY [facility] Last Admin: 04/18/18 09:29 Dose: 40 mg Sildenafil Citrate (Revatio) 20 mg PO Q8H [facility] Last Admin: 04/19/18 05:13 Dose: 20 mg Tramadol HCl (Ultram) 50 mg PO TID [facility] Last Admin: 04/18/18 18:24 Dose: 50 mg - Labs Labs: 04/16/18 06:00 04/16/18 06:00 PT 12.3 SECONDS (9.4-12.5) 04/15/18 06:11 INR 1.07 04/15/18 06:11 APTT 27.5 Seconds (25.1-36.5) 04/15/18 06:11 - Constitutional Appears: No Acute Distress - Eye Exam Eye Exam: Normal appearance - ENT Exam ENT Exam: Mucous Membranes Moist - Respiratory Exam Respiratory Exam: Decreased Breath Sounds, NORMAL BREATHING PATTERN - Cardiovascular Exam Cardiovascular Exam: REGULAR RHYTHM, +S1, +S2 Additional comments: right chest shiley catheter - GI/Abdominal Exam GI & Abdominal Exam: Soft, Normal Bowel Sounds - Extremities Exam Additional comments: right leg with immobilizer - Neurological Exam Neurological Exam: Alert, Awake, Oriented x3 - Psychiatric Exam Psychiatric exam: Normal Affect - Skin Skin Exam: Dry, Warm
--- NOTE | 2018-04-19 06:43 | CP.PCM.PN ---
Subjective - Date & Time of Evaluation Date of Evaluation: 04/19/18 Time of Evaluation: 06:35 - Subjective Subjective: Awake, no distress Reason for consultation and follow up:Cardiac evaluation and risk startification for surgery. History of diabetes, pulmonary hypertension, hyperlipidemia, asthma, emphysema, PAD, COPD, CHF, DVT, CAD, Seen and examined by me and Dr. Ontiveros Objective - Vital Signs/Intake and Output Vital Signs (last 24 hours): Temp Pulse Resp BP Pulse Ox 99.2 F 79 18 150/64 95 04/19/18 00:01 04/19/18 05:29 04/19/18 00:01 04/19/18 00:01 04/19/18 00:01 Intake and Output: 04/18/18 04/19/18 18:59 06:59 Intake Total 720 Output Total 0 Balance 720 - Medications Medications: Current Medications Albuterol Sulfate (Albuterol 0.083% Inhal Michelle (2.5 Mg/3 Ml) Ud) 2.5 mg IH [id number] [facility] Last Admin: 04/19/18 01:49 Dose: 2.5 mg Alprazolam (Xanax) 0.25 mg PO HS [facility] PRN Reason: Protocol Stop: 04/21/18 22:01 Last Admin: 04/18/18 21:54 Dose: 0.25 mg Amlodipine Besylate (Norvasc) 10 mg PO DAILY [facility] Last Admin: 04/18/18 09:30 Dose: 10 mg Aspirin (Ecotrin) 81 mg PO DAILY [facility] Last Admin: 04/18/18 09:30 Dose: 81 mg Atorvastatin Calcium (Lipitor) 20 mg PO HS [facility] Last Admin: 04/18/18 21:54 Dose: 20 mg Calcium Acetate (Phoslo) 667 mg PO WM [facility] Last Admin: 04/18/18 18:24 Dose: 667 mg Carvedilol (Coreg) 25 mg PO BID [facility] Last Admin: 04/18/18 18:25 Dose: 25 mg Clonidine HCl (Catapres) 0.1 mg PO TID [facility] Last Admin: 04/18/18 18:24 Dose: 0.1 mg Clopidogrel Bisulfate (Plavix) 75 mg PO DAILY [facility] Last Admin: 04/18/18 09:30 Dose: 75 mg Diphenhydramine HCl (Benadryl Maximum Strength 1%) 0 ea TOP Q6H PRN PRN Reason: Itching / Pruritus Last Admin: 04/12/18 09:02 Dose: 1 applic Heparin Sodium (Porcine) (Heparin) 5,000 units SC Q12 [facility] PRN Reason: Protocol Last Admin: 04/18/18 21:53 Dose: 5,000 units Hydromorphone HCl (Dilaudid) 2 mg IVP Q4H PRN PRN Reason: Pain, moderate (4-7) Last Admin: 04/19/18 05:13 Dose: 2 mg Labetalol HCl (Trandate) 300 mg PO Q8H PRN PRN Reason: HTN Last Admin: 04/16/18 06:56 Dose: 300 mg Levetiracetam (Keppra) 500 mg PO BID [facility] Last Admin: 04/18/18 18:26 Dose: 500 mg Levothyroxine Sodium (Synthroid) 75 mcg PO DAILY [facility] Last Admin: 04/18/18 09:29 Dose: 75 mcg Lisinopril (Zestril) 40 mg PO DAILY [facility] Last Admin: 04/18/18 10:25 Dose: 40 mg Lorazepam (Ativan) 1 mg IVP Q6H PRN; Protocol PRN Reason: Anxiety Last Admin: 04/15/18 16:21 Dose: 1 mg Morphine Sulfate (Morphine Extended Release Tab) 15 mg PO Q12 [facility] Last Admin: 04/18/18 21:54 Dose: 15 mg Nifedipine (Procardia Xl) 30 mg PO DAILY [facility] Last Admin: 04/18/18 10:25 Dose: 30 mg Nitroglycerin (Nitro-Bid 2% Oint) 1 ea TOP Q6 [facility] Ondansetron HCl (Zofran Inj) 4 mg IVP Q6H PRN PRN Reason: Nausea/Vomiting Last Admin: 04/14/18 19:48 Dose: 4 mg Pantoprazole Sodium (Protonix Ec Tab) 40 mg PO DAILY [facility] Last Admin: 04/18/18 09:29 Dose: 40 mg Sildenafil Citrate (Revatio) 20 mg PO Q8H [facility] Last Admin: 04/19/18 05:13 Dose: 20 mg Tramadol HCl (Ultram) 50 mg PO TID [facility] Last Admin: 04/18/18 18:24 Dose: 50 mg - Labs Labs: 04/16/18 06:00 04/16/18 06:00 PT 12.3 SECONDS (9.4-12.5) 04/15/18 06:11 INR 1.07 04/15/18 06:11 APTT 27.5 Seconds (25.1-36.5) 04/15/18 06:11 - Constitutional Appears: No Acute Distress - Eye Exam Eye Exam: Normal appearance - ENT Exam ENT Exam: Mucous Membranes Moist - Respiratory Exam Respiratory Exam: Clear to Ausculation Bilateral, NORMAL BREATHING PATTERN - Cardiovascular Exam Cardiovascular Exam: +S1, +S2 - GI/Abdominal Exam GI & Abdominal Exam: Soft, Normal Bowel Sounds - Exam Additional comments: hemodialysis 3x a week - Extremities Exam Additional comments: right below knee amputation with immobilizer - Neurological Exam Neurological Exam: Alert, Awake, Oriented x3 - Psychiatric Exam Psychiatric exam: Normal Affect - Skin Skin Exam: Dry, Warm Assessment and Plan - Assessment and Plan (Free Text) Assessment: A 57 year old female who came in to the ER due to worsening rifht foot pain. Consult was called to clear patient for surgery, possible right below knee amputation. History of diabetes, pulmonary hypertension, hyperlipidemia, asthma , emphysema, PAD, COPD, CHF, DVT, CAD, CVA, seizure, ESRD on hemodialysis on / /Thu, GERD, gastritis,diverticulitis, anemia, hypothyroidism, arthritis, and anxiety. Echo 08/20/17- LVEF 65%,moderate to severe LV hyperthrophy,trace MR/AR,TR. 08/21 Stress test- normal. Status post right below knee amputation. Plan: Complaining of pain right leg, otherwise feels okay PRN Morphine given Heart rate and blood pressure controlled Stable cardiac status Breathing better today,on nasal cannula On Norvasc 10 mg daily,ASA 81 mg daily, Lipitor 20 mg daily Coreg 12.5 mg BID,Catapres 0.1 mg TID,Zestril 40 mg daily Procardia XL 30 mg daily,Revatio 20 mg q 8 hours Awating placement in Rehab Continue current treatment Continue current medications Will follow up Plan and treatment discussed with Dr. Ontiveros
[2018-04-19] MEDS: Levothyroxine 75 MCG TAB PO SCH (09:45)
[2018-04-19] MEDS: NIFEdipine 30 mg ER Tab PO SCH (09:46)
[2018-04-19] MEDS: Pantoprazole 40 mg EC Tab PO SCH (09:46)
[2018-04-19] MEDS: Morphine 15 mg SR Tab PO SCH ×2 (09:47→21:28)
[2018-04-19 10:11] LABS: BASO # 0.01 K/mm3 (0.0-2.0); BASO % 0.1 % (0.0-3.0); EOS # 0.1 (0.0-0.7); EOS % 1.1 % (1.5-5.0); GRAN # 7.53 (1.4-6.5); GRAN % 78.2 % (50.0-68.0); HEMOGLOBIN 8.4 g/dL (12.0-16.0); LYMPH # 1.2 (1.2-3.4); LYMPH % 12.5 % (22.0-35.0); MEAN CELL VOLUME 89.6 fl (80.0-105.0); MEAN CORPUSCULAR HEMOGLOBIN 27.3 pg (25.0-35.0); MEAN CORPUSCULAR HGB CONC 30.4 g/dl (31.0-37.0); MEAN PLATELET VOLUME 10.2 fl (7.0-11.0); MONO # 0.8 (0.1-0.6); MONO % 8.1 % (1.0-6.0); RBC 3.08 10^6/uL (3.5-6.1); RED CELL DISTRIBUTION WIDTH 17.2 % (11.5-14.5); WHITE BLOOD COUNT 9.6 10^3/ul (4.5-11.0)
[2018-04-19 10:23] LABS: CALCIUM 8.8 mg/dL (8.4-10.5)
[2018-04-19] MEDS: HYDROmorphone 1 mg/ml ISec IVP PRN ×4 (12:08→22:04)
--- NOTE | 2018-04-19 13:38 | CP.PCM.PN ---
Subjective - Date & Time of Evaluation Date of Evaluation: 04/19/18 Time of Evaluation: 13:31 - Subjective Subjective: General Surgery Progress Note for Dr. Hutson This 57F was seen and evaluated this AM at bedside. No acute events overnight. Pt complaining that pain is not well controlled on current pain medication. She reports that the pain medication lasts for 30 min. She denies chest pain or changes from her baseline SOB. Objective - Vital Signs/Intake and Output Vital Signs (last 24 hours): Temp Pulse Resp BP Pulse Ox 98.9 F 81 18 148/66 98 04/19/18 06:00 04/19/18 09:46 04/19/18 06:00 04/19/18 09:46 04/19/18 06:00 Intake and Output: 04/19/18 04/19/18 06:59 18:59 Intake Total 720 Output Total 0 Balance 720 - Medications Medications: Current Medications Albuterol Sulfate (Albuterol 0.083% Inhal Michelle (2.5 Mg/3 Ml) Ud) 2.5 mg IH [id number] [facility] Last Admin: 04/19/18 08:14 Dose: 2.5 mg Alprazolam (Xanax) 0.25 mg PO [facility] PRN Reason: Protocol Stop: 04/21/18 22:01 Last Admin: 04/18/18 21:54 Dose: 0.25 mg Amlodipine Besylate (Norvasc) 10 mg PO DAILY [facility] Last Admin: 04/19/18 09:43 Dose: 10 mg Aspirin (Ecotrin) 81 mg PO DAILY [facility] Last Admin: 04/19/18 09:45 Dose: 81 mg Atorvastatin Calcium (Lipitor) 20 mg PO HS [facility] Last Admin: 04/18/18 21:54 Dose: 20 mg Calcium Acetate (Phoslo) 667 mg PO WM [facility] Last Admin: 04/19/18 13:27 Dose: 667 mg Carvedilol (Coreg) 25 mg PO BID [facility] Last Admin: 04/19/18 09:45 Dose: 25 mg Clonidine HCl (Catapres) 0.1 mg PO TID [facility] Last Admin: 04/19/18 09:46 Dose: 0.1 mg Clopidogrel Bisulfate (Plavix) 75 mg PO DAILY [facility] Last Admin: 04/19/18 09:46 Dose: 75 mg Diphenhydramine HCl (Benadryl Maximum Strength 1%) 0 ea TOP Q6H PRN PRN Reason: Itching / Pruritus Last Admin: 04/12/18 09:02 Dose: 1 applic Heparin Sodium (Porcine) (Heparin) 5,000 units SC Q12 [facility] PRN Reason: Protocol Last Admin: 04/19/18 09:43 Dose: 5,000 units Hydromorphone HCl (Dilaudid) 1 mg IVP Q2H PRN PRN Reason: Pain, moderate (4-7) Last Admin: 04/19/18 12:08 Dose: 1 mg Labetalol HCl (Trandate) 300 mg PO Q8H PRN PRN Reason: HTN Last Admin: 04/16/18 06:56 Dose: 300 mg Lactulose (Enulose) 20 gm PO HS [facility] Levetiracetam (Keppra) 500 mg PO BID [facility] Last Admin: 04/19/18 09:47 Dose: 500 mg Levothyroxine Sodium (Synthroid) 75 mcg PO DAILY [facility] Last Admin: 04/19/18 09:45 Dose: 75 mcg Lisinopril (Zestril) 40 mg PO DAILY [facility] Last Admin: 04/19/18 09:46 Dose: 40 mg Lorazepam (Ativan) 1 mg IVP Q6H PRN; Protocol PRN Reason: Anxiety Last Admin: 04/15/18 16:21 Dose: 1 mg Morphine Sulfate (Morphine Extended Release Tab) 30 mg PO Q12 [facility] Nifedipine (Procardia Xl) 30 mg PO DAILY [facility] Last Admin: 04/19/18 09:46 Dose: 30 mg Nitroglycerin (Nitro-Bid 2% Oint) 1 ea TOP Q6 [facility] Ondansetron HCl (Zofran Inj) 4 mg IVP Q6H PRN PRN Reason: Nausea/Vomiting Last Admin: 04/14/18 19:48 Dose: 4 mg Pantoprazole Sodium (Protonix Ec Tab) 40 mg PO DAILY [facility] Last Admin: 04/19/18 09:46 Dose: 40 mg Sildenafil Citrate (Revatio) 20 mg PO Q8H [facility] Last Admin: 04/19/18 13:10 Dose: Not Given Tramadol HCl (Ultram) 50 mg PO TID [facility] Last Admin: 04/19/18 09:44 Dose: 50 mg - Labs Labs: 04/19/18 10:00 04/19/18 10:00 PT 12.3 SECONDS (9.4-12.5) 04/15/18 06:11 INR 1.07 04/15/18 06:11 APTT 27.5 Seconds (25.1-36.5) 04/15/18 06:11 - Constitutional Appears: Non-toxic, No Acute Distress - Head Exam Head Exam: ATRAUMATIC, NORMOCEPHALIC - Eye Exam Eye Exam: EOMI, Normal appearance - ENT Exam ENT Exam: Mucous Membranes Moist - Respiratory Exam Respiratory Exam: NORMAL BREATHING PATTERN - Cardiovascular Exam Cardiovascular Exam: +S1, +S2 - GI/Abdominal Exam GI & Abdominal Exam: Soft. absent: Guarding, Rigid, Tenderness - Neurological Exam Neurological Exam: Alert, Awake - Psychiatric Exam Psychiatric exam: Normal Affect, Normal Mood - Skin Skin Exam: Dry, Intact Assessment and Plan - Assessment and Plan (Free Text) Assessment: 57F with PAD POD#4 s/p R BKA -Pain control -Regular diet -Medical management -IS -PT Further recs per Dr. Haresh Crabtree PGY3
--- NOTE | 2018-04-19 15:13 | PN ---
Copied To: German Hutson MD Attending MD: German Hutson MD DATE: 04/19/2018 SUBJECTIVE: Renetta Thakur is having severe pain from the amputation site. She is being well sedated. There is nothing else untoward. German Hutson MD
--- NOTE | 2018-04-19 15:30 | PN ---
Copied To: Tamanna Smith MD Attending MD: Tamanna Smith MD DATE: 04/19/2018 SUBJECTIVE: The patient is seen lying in bed. She is groggy, but arousable. She complains of severe pain in her right leg. She denies any chest tightness. She denies any shortness of breath. PHYSICAL EXAMINATION: GENERAL: Middle-aged lady lying in bed in mild distress. VITAL SIGNS: Blood pressure 148/66, heart rate 81, respiratory rate 18, temperature 98.9. HEENT: Normocephalic, atraumatic. Positive pallor. NECK: Supple, no JVD. LUNGS: Bilateral equal air entry, bilateral equal expansion. CARDIAC: S1, S2. Regular rate and rhythm. No murmur, no rub. ABDOMEN: Soft, nondistended, nontender. Bowel sounds present. EXTREMITIES: Right BKA stump dressing clean. INTAKE AND OUTPUT: Not charted. LABORATORY DATA: No new labs available. MEDICATIONS: List reviewed. ASSESSMENT AND PLAN: 1. Peripheral vascular disease, status post right below knee amputation. 2. Anemia of chronic kidney disease. 3. Severe hypertension. 4. End-stage renal disease. 5. History of chronic obstructive pulmonary disease. 6. Pulmonary hypertension. PLAN: 1. The patient was last dialyzed on Thursday, we will arrange for dialysis today. The patient is chronically on Thursday, , Thursday schedule. Next dialysis after today will be able on . 2. Check lab work on dialysis. 3. Continue pain medication. 4. Continue bowel regimen to avoid constipation. Tamanna Smith MD
--- NOTE | 2018-04-19 16:27 | PN ---
Copied To: Brittany Coffman MD Attending MD: Brittany Coffman MD DATE: 04/19/2018 SUBJECTIVE: The patient is a 57 years old, seen and examined, complained of pain in the right stump. Denies any nausea or vomiting. Complained of constipation. PHYSICAL EXAMINATION: VITAL SIGNS: She is afebrile, pulse 81, respiration 18, blood pressure 148/66. LUNGS: Bilateral fair airflow. No rhonchi or crackle. HEART: S1 and S2 audible. ABDOMEN: Soft, nontender. No rebound. No guarding. NEUROLOGICAL: The patient is awake, alert, oriented, able to communicate. EXTREMITIES: Right stump is in the immobilizer. LABORATORY EXAMINATION: WBC 9.6, hemoglobin 8.4, hematocrit 27.6, and platelets 196. Chemistry: Sodium 134, potassium 4.6, chloride 93, CO2 27, BUN 85, creatinine 6.3. Blood sugar of 106. Blood cultures are negative. ASSESSMENT: 1. Status post right below-knee amputation. 2. Peripheral vascular disease. 3. Hypertension. 4. End-stage renal disease, on hemodialysis. 5. Constipation secondary to narcotics. PLAN: The patient is on DVT prophylaxis. She is on Keppra. I will increase her morphine sulfate to 30 mg every 12 and give Dilaudid intermittently. Give her a dose of Relistor. I will follow up the patient in a.m. and give her one dose of Relistor and start her on lactulose. Brittany Coffman MD
[2018-04-20] MEDS: HYDROmorphone 1 mg/ml ISec IVP PRN ×6 (00:04→18:17)
[2018-04-20] MEDS: Albuterol 0.083% Inhal Sol (2.5 mg/3 mL) UD IH SCH ×4 (01:22→21:00)
[2018-04-20] MEDS: Sildenafil 20 MG TAB PO SCH ×3 (04:06→20:57)
--- NOTE | 2018-04-20 06:48 | CP.PCM.PN ---
Subjective - Date & Time of Evaluation Date of Evaluation: 04/20/18 Time of Evaluation: 06:10 - Subjective Subjective: Awake, alert, no distress, less pain on right leg Reason for consultation and follow up: Cardiac evaluation and risk stratification for right below knee amputation, post right below knee amputation , history of coronary artery disease,peripheral vascular disease. Seen and examined by me and Dr. Ontiveros Objective - Vital Signs/Intake and Output Vital Signs (last 24 hours): Temp Pulse Resp BP Pulse Ox 98.9 F 81 18 157/63 H 98 04/19/18 06:00 04/19/18 22:35 04/19/18 06:00 04/19/18 17:45 04/19/18 06:00 Intake and Output: 04/19/18 04/20/18 18:59 06:59 Intake Total 420 Output Total 55 Balance 365 - Medications Medications: Current Medications Albuterol Sulfate (Albuterol 0.083% Inhal Michelle (2.5 Mg/3 Ml) Ud) 2.5 mg IH [id number] [facility] Last Admin: 04/20/18 01:22 Dose: 2.5 mg Alprazolam (Xanax) 0.25 mg PO HS [facility] PRN Reason: Protocol Stop: 04/21/18 22:01 Last Admin: 04/19/18 21:29 Dose: 0.25 mg Amlodipine Besylate (Norvasc) 10 mg PO DAILY [facility] Last Admin: 04/19/18 09:43 Dose: 10 mg Aspirin (Ecotrin) 81 mg PO DAILY [facility] Last Admin: 04/19/18 09:45 Dose: 81 mg Atorvastatin Calcium (Lipitor) 20 mg PO HS [facility] Last Admin: 04/19/18 21:27 Dose: 20 mg Calcium Acetate (Phoslo) 667 mg PO WM [facility] Last Admin: 04/19/18 17:45 Dose: 667 mg Carvedilol (Coreg) 25 mg PO BID [facility] Last Admin: 04/19/18 19:02 Dose: Not Given Clonidine HCl (Catapres) 0.1 mg PO TID [facility] Last Admin: 04/19/18 17:45 Dose: 0.1 mg Clopidogrel Bisulfate (Plavix) 75 mg PO DAILY [facility] Last Admin: 04/19/18 09:46 Dose: 75 mg Diphenhydramine HCl (Benadryl Maximum Strength 1%) 0 ea TOP Q6H PRN PRN Reason: Itching / Pruritus Last Admin: 04/12/18 09:02 Dose: 1 applic Heparin Sodium (Porcine) (Heparin) 5,000 units SC Q12 [facility] PRN Reason: Protocol Last Admin: 04/19/18 21:27 Dose: 5,000 units Hydromorphone HCl (Dilaudid) 1 mg IVP Q2H PRN PRN Reason: Pain, moderate (4-7) Last Admin: 04/20/18 05:55 Dose: 1 mg Labetalol HCl (Trandate) 300 mg PO Q8H PRN PRN Reason: HTN Last Admin: 04/16/18 06:56 Dose: 300 mg Lactulose (Enulose) 20 gm PO HS [facility] Last Admin: 04/19/18 21:26 Dose: 20 gm Levetiracetam (Keppra) 500 mg PO BID [facility] Last Admin: 04/19/18 17:45 Dose: 500 mg Levothyroxine Sodium (Synthroid) 75 mcg PO DAILY [facility] Last Admin: 04/19/18 09:45 Dose: 75 mcg Lisinopril (Zestril) 40 mg PO DAILY [facility] Last Admin: 04/19/18 09:46 Dose: 40 mg Lorazepam (Ativan) 1 mg IVP Q6H PRN; Protocol PRN Reason: Anxiety Last Admin: 04/15/18 16:21 Dose: 1 mg Morphine Sulfate (Morphine Extended Release Tab) 30 mg PO Q12 [facility] Last Admin: 04/19/18 21:28 Dose: 30 mg Nifedipine (Procardia Xl) 30 mg PO DAILY [facility] Last Admin: 04/19/18 09:46 Dose: 30 mg Nitroglycerin (Nitro-Bid 2% Oint) 1 ea TOP Q6 [facility] Ondansetron HCl (Zofran Inj) 4 mg IVP Q6H PRN PRN Reason: Nausea/Vomiting Last Admin: 04/14/18 19:48 Dose: 4 mg Pantoprazole Sodium (Protonix Ec Tab) 40 mg PO DAILY [facility] Last Admin: 04/19/18 09:46 Dose: 40 mg Sildenafil Citrate (Revatio) 20 mg PO Q8H [facility] Last Admin: 04/20/18 04:06 Dose: 20 mg Tramadol HCl (Ultram) 50 mg PO TID [facility] Last Admin: 04/19/18 19:04 Dose: Not Given - Labs Labs: 04/19/18 10:00 04/19/18 10:00 PT 12.3 SECONDS (9.4-12.5) 04/15/18 06:11 INR 1.07 04/15/18 06:11 APTT 27.5 Seconds (25.1-36.5) 04/15/18 06:11 - Constitutional Appears: No Acute Distress - Eye Exam Eye Exam: Normal appearance - ENT Exam ENT Exam: Mucous Membranes Moist - Respiratory Exam Respiratory Exam: Decreased Breath Sounds, NORMAL BREATHING PATTERN - Cardiovascular Exam Cardiovascular Exam: +S1, +S2 Additional comments: right chest shiley catheter - GI/Abdominal Exam GI & Abdominal Exam: Soft, Normal Bowel Sounds - Exam Additional comments: hemodialysis 3x a week - Extremities Exam Additional comments: right below knee amputation with leg immobilizer - Neurological Exam Neurological Exam: Alert, Awake, Oriented x3 - Psychiatric Exam Psychiatric exam: Normal Affect - Skin Skin Exam: Intact, Warm Assessment and Plan - Assessment and Plan (Free Text) Assessment: A 57 year old female who came in to the ER due to worsening rifht foot pain. Consult was called to clear patient for surgery, possible right below knee amputation. History of diabetes, pulmonary hypertension, hyperlipidemia, asthma , emphysema, PAD, COPD, CHF, DVT, CAD, CVA, seizure, ESRD on hemodialysis on / /Thu, GERD, gastritis,diverticulitis, anemia, hypothyroidism, arthritis, and anxiety. Echo 08/20/17- LVEF 65%,moderate to severe LV hyperthrophy,trace MR/AR,TR. 08/21 Stress test- normal. Status post right below knee amputation. Plan: Clinically improved,tolerable pain on right leg relieved with PRN Morphine Stable cardiac status Heart rate and blood pressure controlled Telemetry discontinued On Norvasc 10 mg daily,ASA 81 mg daily, Lipitor 20 mg daily Coreg 12.5 mg BID,Catapres 0.1 mg TID,Zestril 40 mg daily Procardia XL 30 mg daily,Revatio 20 mg q 8 hours Discharge planning Awaiting placement in Rehab Continue current treatment Continue current medications Will follow up Plan and treatment discussed with Dr. Ontiveros
[2018-04-20] MEDS: Morphine 15 mg SR Tab PO SCH (09:22)
[2018-04-20] MEDS: Pantoprazole 40 mg EC Tab PO SCH (09:22)
[2018-04-20] MEDS: NIFEdipine 30 mg ER Tab PO SCH (09:23)
[2018-04-20] MEDS: Levothyroxine 75 MCG TAB PO SCH (09:23)
--- NOTE | 2018-04-20 13:57 | PN ---
Copied To: Brittany Coffman MD Attending MD: Brittany Coffman MD DATE: 04/20/2018 SUBJECTIVE: The patient is 57-year-old, seen and examined, states her pain seems to be subsiding although she has discomfort in her stump. No nausea or vomiting. No diarrhea. PHYSICAL EXAMINATION: VITAL SIGNS: She is afebrile, pulse 88, respirations 19, blood pressure 156/66. LUNGS: Bilateral fair airflow. No rhonchi or crackle. HEART: S1 and S2 audible. ABDOMEN: Soft, nontender. No rebound. No guarding. NEUROLOGICAL: The patient is awake, alert, oriented, communicative. LABORATORY EXAM: WBC is 9.6, hemoglobin 9.4, hematocrit 27.6, platelets 196. Chemistry: Sodium 134, potassium 4.6, chloride 93, CO2 27, BUN 85, creatinine 6.3. Blood sugar of 106. Blood cultures are negative. ASSESSMENT AND PLAN: 1. Status post right below-knee amputation. 2. Hypertension. 3. Hyperlipidemia. 4. Pulmonary hypertension. 5. Severe peripheral vascular disease. 6. Gastritis. PLAN: Discussed with the case management rn who will make arrangement for acute rehab with the facility that has dialysis, they will reach out to different facilities. Once this arrangement is made, she can be discharged. From medical point of view, she is ready to be discharged. Brittany Coffman MD
[2018-04-20 18:22] VITALS: BP 144/65; PULSE 76
[2018-04-20 20:56] VITALS: RESP 18; TEMP 98.4; O2SAT 99
--- NOTE | 2018-04-21 00:46 | PN ---
Copied To: Tamanna Smith MD Attending MD: Tamanna Smith MD DATE: 04/20/2018 SUBJECTIVE: The patient is seen lying in bed. She is awake. She is alert. She is groggy. She complains of pain in her right foot. Pain is getting better, though. She also reports constipation. PHYSICAL EXAMINATION: GENERAL: Middle-aged lady, lying in bed. VITAL SIGNS: Blood pressure 144/65, heart rate 76, respiratory rate 18, temperature 98.4. HEENT: Normocephalic, atraumatic, positive pallor. NECK: Supple, no JVD. LUNGS: Bilateral equal air entry, bilateral equal expansion, no rales. CARDIAC: S1, S2, regular rate and rhythm, no murmur, no rub. ABDOMEN: Soft, nondistended, nontender, bowel sounds present. EXTREMITIES: Right BKA stump. No lower extremity edema, left side. INTAKE AND OUTPUT: Not charted. LABORATORY DATA: WBC 9.6, hemoglobin 8.4, hematocrit 27.6, platelets 196. Sodium 134, potassium 4.6, chloride 93, CO2 of 27, BUN 85, creatinine 6.3, glucose 8.8, phosphorus 3.5. CURRENT MEDICATIONS: DuoNeb, Ativan, clonidine 0.1 t.i.d., Coreg 25 b.i.d., Dilaudid, Ecotrin 81, Lipitor 20, gabapentin 300 three times a day, amlodipine 10, PhosLo 67 with meals, Plavix 75, nifedipine XL 30, Protonix 40, Revatio 20 t.i.d., Synthroid, tramadol, Xanax, Zestril. ASSESSMENT: 1. Severe peripheral vascular disease, status post below-knee amputation, right sided. 2. Hypertension. 3. End-stage renal disease. 4. Severe anemia. 5. Chronic obstructive pulmonary disease. 6. Secondary hyperparathyroidism. PLAN: 1. Status post stable dialysis yesterday. 2. Next dialysis will be . 3. Continue pain management. 4. Manage constipation. Tamanna Smith MD
--- NOTE | 2018-05-06 07:01 | OP ---
Copied To: German Hutson MD Attending MD: German Hutson MD PROCEDURE DATE: 04/15/2018 PREOPERATIVE DIAGNOSIS: Ulcer of the right leg with ischemia. POSTOPERATIVE DIAGNOSIS: Ulcer of the right leg with ischemia. PROCEDURE: [id number] amputation. SURGEON: German Hutson MD DESCRIPTION OF PROCEDURE: In the operating room, the patient was identified by name, name of procedure, laterality and my rosalinda. After the successful timeout, the leg was exsanguinated with a tourniquet and an Esmarch bandage. We then prepped the area and the flap was mapped out with a long posterior flap. The skin was cut circumferentially to the fascia. The tibia was circumscribed with a saw after isolation of the nerve, artery and vein. Muscles were taken serially as necessary. The periosteal elevator was used to pull back on the periosteum. The fibula was taken high up at right side using a bone cutter. Amputation knife was used to do the amputation along the bone. The long posterior flap was adequate. Hemostasis was achieved with a cautery and tying with 0 Vicryl on all the nerve, artery and vein. The incision was closed over a Kd with 0 Vicryl and suzan. Light pressure dressing was applied and . German Hutson MD
== END 2018-04-20 21:34 | DRG 239 ==
LOC: ED 01:49 → ERH 06:39 → 5RNO 16:19 → 2RNO 04-15 13:49 → 3RNO 04-19 10:18
PROVIDERS: ADMIT Internal Medicine; ATTEND Internal Medicine
PROC: 0Y6H0Z1 Detachment at Right Lower Leg, High, Open Approach (ICD-10-PCS; principal; 2018-04-15 07:30)
DX: E11.51 Type 2 diabetes mellitus with diabetic peripheral angiopathy without gangrene (principal); N18.6 End stage renal disease; E87.2 Acidosis; I13.2 Hypertensive heart and chronic kidney disease with heart failure and with stage 5 chronic kidney disease, or end stage renal disease; I42.9 Cardiomyopathy, unspecified; N25.81 Secondary hyperparathyroidism of renal origin; E11.621 Type 2 diabetes mellitus with foot ulcer; E11.22 Type 2 diabetes mellitus with diabetic chronic kidney disease; D63.1 Anemia in chronic kidney disease; E03.9 Hypothyroidism, unspecified; E78.00 Pure hypercholesterolemia, unspecified; E78.5 Hyperlipidemia, unspecified; E83.39 Other disorders of phosphorus metabolism; E83.59 Other disorders of calcium metabolism; E87.5 Hyperkalemia; F32.89 Other specified depressive episodes; F41.9 Anxiety disorder, unspecified; G40.909 Epilepsy, unspecified, not intractable, without status epilepticus; G47.30 Sleep apnea, unspecified; G54.6 Phantom limb syndrome with pain; H54.7 Unspecified visual loss; H91.91 Unspecified hearing loss, right ear; I25.2 Old myocardial infarction; I25.10 Atherosclerotic heart disease of native coronary artery without angina pectoris; I27.20 Pulmonary hypertension, unspecified; I50.9 Heart failure, unspecified; J44.9 Chronic obstructive pulmonary disease, unspecified; K21.9 Gastro-esophageal reflux disease without esophagitis; K27.9 Peptic ulcer, site unspecified, unspecified as acute or chronic, without hemorrhage or perforation; K29.70 Gastritis, unspecified, without bleeding; K59.03 Drug induced constipation; L97.519 Non-pressure chronic ulcer of other part of right foot with unspecified severity; R09.02 Hypoxemia; T40.605A Adverse effect of unspecified narcotics, initial encounter; Z79.02 Long term (current) use of antithrombotics/antiplatelets; Z79.890 Hormone replacement therapy; Z79.899 Other long term (current) drug therapy; Z86.73 Personal history of transient ischemic attack (TIA), and cerebral infarction without residual deficits; Z87.01 Personal history of pneumonia (recurrent); Z87.891 Personal history of nicotine dependence; Z89.511 Acquired absence of right leg below knee; Z90.49 Acquired absence of other specified parts of digestive tract; Z95.1 Presence of aortocoronary bypass graft; Z95.5 Presence of coronary angioplasty implant and graft; Z99.2 Dependence on renal dialysis